=== PATIENT | female | born 1950 | race Caucasian/White ===

== ENCOUNTER → 2023-02-05 09:57 | Outpatient (BNVA) | payer OTHER, SELFPAY | PROVIDERS: PCP Family Medicine; Referring Provider Family Medicine; Visit Provider Surgery | DX: L72.3 Sebaceous cyst (principal) | CPT/HCPCS: 99202 ==

== ENCOUNTER 2023-02-20 13:44 | Outpatient (REF) | payer OTHER, SELFPAY | END 2023-02-20 13:45 | disposition home or self-care (01) | LOC: HO.LNP 13:44 | PROVIDERS: PCP Family Medicine; Visit Provider Surgery | DX: L72.3 Sebaceous cyst (principal) | CPT/HCPCS: 11402; 88304; 88342; 99212 ==

== ENCOUNTER 2023-03-01 11:19 | Outpatient (AMB) | payer MEDICARE, SELFPAY ==
[2023-03-01 11:31] VITALS: BP 133/63; PULSE 84; BMI 30.2
--- NOTE | 2023-03-01 11:31 | MHC.OFFVIS ---
Intake Vital Signs 03/01/23 11:31 Height 5 ft 1 in Weight 160 lb BMI 30.2 BP 133/63 Blood Pressure Location Rt brachial Position Sitting Pulse 84 Intake Visit Reasons: Follow up exc libby cyst of left shoulder Intake Note: Patient here for F/u exc of cyst on Lt shoulder. Patient reports tenderness and incision looks inflamed. Denies redness or oozing. Vault Attendant Required: No Accompanied by: Self / Same As Patient Allergies No Known Allergies Allergy (Verified 03/01/23 11:32) HPI HPI Comments History of Present Illness Details Patient has no wound issues or complaints aside from mild incisional discomfort which is improving. Pathology was benign [facility] Medical History Left ankle injury Surgical History H/O right knee surgery History of section History of tubal ligation Social History Alcohol intake: never Patient Tobacco Use Status: Never used Tobacco Physical Exam Vital Signs: Last Vital Signs Pulse 84 03/01/23 11:31 BP 133/63 03/01/23 11:31 BMI result Body Mass Index 30.2 Chest Other: Wound is clean dry and intact healing uneventfully Assessment & Plan Assessment & Plan (1) Sebaceous cyst: Comment: Patient has been given local instructions including no strenuous activities, ice pack to the wound p.r.n., shower in 2 days and removing only outside dressing leaving Steri-Strips intact. She will see me as directed or p.r.n. Code(s): L72.3 - Sebaceous cyst Coding Level of Care Code Global (43558) Diagnoses Sebaceous cyst L72.3
== END 2023-03-01 11:41 | disposition home or self-care (01) ==
PROVIDERS: PCP Family Medicine; Visit Provider Surgery
DX: L72.3 Sebaceous cyst (principal)
CPT/HCPCS: 99024

== ENCOUNTER → 2023-03-01 11:19 | Outpatient (BNVA) | payer OTHER, SELFPAY | PROVIDERS: PCP Family Medicine; Visit Provider Surgery ==

== ENCOUNTER 2023-04-09 09:42 | Outpatient (AMB) | payer OTHER, MEDICARE, SELFPAY ==
[2023-04-09 09:51] VITALS: BP 120/74; PULSE 77; BMI 28.7
--- NOTE | 2023-04-09 09:51 | A.OFFVIS_ITS ---
Intake Vital Signs 04/09/23 09:51 Height 5 ft 1 in Weight 152 lb 1.903 oz BMI 28.7 BP 120/74 Blood Pressure Location Lt brachial Position Sitting Pulse 77 Intake Visit Reasons: NPV/PAF/Kirchen Intake Note: New patient afib c/o palpitations and chest heaviness and rib pain Allergies No Known Allergies Allergy (Verified 03/01/23 11:32) HPI HPI Comments History of Present Illness Details Thank you for referring Annemarie in cardiology consultation today for symptoms of shortness of breath and chest pressure along with symptoms of palpitation. She is absolutely pleasant 72-year-old woman with prior history of significant asthma which is got better since losing weight and as per her doing acupuncture and current medical therapy. She does not see a tailer in. She has been and symptoms of increasing exertional shortness of breath and symptoms associated with chest pressure when she walk short distance. She says she does not exercise for prolonged period time due to knee issues on the right. She denies any orthopnea, PND, leg edema. Symptoms usually last for few hours after she gets shortness of breath. However since doing acupuncture losing weight she says she has not been hospitalized and use to be hospitalized about 3 times a year for her asthma exacerbation. She has episodes of atrial fibrillation 1st detected in 2005 after knee surgery when she had significant pain in her left leg related to sciatica. She had a right knee replacement. And subsequently in 2009 when she was admitted with asthma exacerbation does mention of developing atrial fibrillation. However besides those 2 episodes as been no documented atrial fibrillation since then. She is not on current oral anticoagulation therapy. Eight seems like this was because both of these episodes were triggered. However since then she continues to intermittent episodes of palpitations. Do not last for long period time. She denies any lightheadedness, syncope. She said she had a cardiac catheterization many years ago and from the notes appear to be at [facility] in [facility], and was told that she had coronary artery disease. She also has longstanding history of hyperlipidemia currently on low intensity statin therapy. She says her LDL is not well optimized. She is currently not on any aspirin therapy. [facility] Medical History CAD (coronary artery disease) Diabetes Left ankle injury Paroxysmal atrial fibrillation Severe asthma Surgical History H/O right knee surgery History of section History of tubal ligation Social History Alcohol intake: never Patient Tobacco Use Status: Never used Tobacco Review of Systems Const Denies chills, Denies fatigue, Denies fever(s), Denies frequent falls, Denies weakness, Denies weight gain and Denies weight loss ENT Denies dizziness Card Denies chest pain, Denies leg edema, Denies lightheadedness, Denies palpitations, Denies dyspnea, Denies dyspnea on exertion, Denies orthopnea and Denies other (loss of consciousness) Resp Denies cough, Denies dyspnea and Denies dyspnea on exertion GI Denies hematochezia and Denies change in stool character Musc Denies abnormal gait, Denies muscle weakness, Denies numbness, Denies radiating pain into limb and Denies tingling Neuro Denies abnormal gait, Denies dizziness, Denies frequent falls, Denies numbness, Denies tingling and Denies weakness Endo Denies fatigue and Denies palpitations Physical Exam Vital Signs: Last Vital Signs Pulse 77 04/09/23 09:51 BP 120/74 04/09/23 09:51 BMI result Body Mass Index 28.7 Const General: cooperative, comfortable, no acute distress, well developed, alert and awake Nutritional Appearance: overweight Orientation/consciousness: patient oriented x3 Limitations: no limitations HEENT Head: Yes normocephalic and Yes atraumatic Neck Neck: Yes trachea midline, Yes supple and Yes no JVD Resp Effort & Inspection: normal respiratory effort Auscultation: wheezes scattered wheezes Cardio Jugular venous distension: no JVD Palpation: normal PMI Rate: regular rate Rhythm: regular rhythm Heart sounds: S1 normal heart sound present, S2 normal heart sound present, no click, no gallops, no murmurs and no rubs GI Auscultation: normal bowel sounds Skin General skin exam: no rashes or lesions noted Neuro General: patient oriented x3 and no focal motor deficits Extrem General: Yes no clubbing, cyanosis or edema Office Procedures EKG Details: EKG shows normal sinus rhythm with QS pattern in lead V1 and V2 otherwise no acute ST T wave change [id number], Complete Assessment & Plan Assessment & Plan (1) SOB (shortness of breath) on exertion: Code(s): R06.02 - Shortness of breath Plan: Patient with progressive symptoms exertional shortness of breath as well as intermittent chest pressure with prior history of coronary artery disease, extent unknown with risk factors of diabetes, age as well as hyperlipidemia not well controlled. There is high likelihood of underlying progressive coronary artery disease obstructive CAD. Would suggest her to undergo myocardial perfusion imaging with dobutamine given her severe bronchospastic airway disease. This will be done in near future. Further treatment based on the findings. Will also suggest echocardiogram to assess LV systolic and diastolic function to evaluate for regional wall motion abnormality in pulmonary hypertension. Management was discussed with her in details. Continue aggressive risk factor modification. Hopefully we can obtain old cardiac catheterization report. Will obtain lipid panel from the office and if LDL is not well optimized and below 70 mg/dL consider switching her from pravastatin to high-intensity statin therapy with atorvastatin 40 mg daily therapy. Management was discussed with her. (2) Palpitations: Code(s): R00.2 - Palpitations Plan: Patient continues to intermittent symptoms of palpitations. She is at high risk for recurrent development of atrial fibrillation. Advise echocardiogram as above to evaluate for biatrial chamber size. Also suggest a 30 day event monitor to evaluate for symptoms and see if she has any evidence of atrial fibrillation. Consider pulmonary specific bronchodilators such as Xopenex. Consider referral to Pulmonary. Avoidance of other stimulants was discussed. Further treatment based on finding of the event monitor. If she does have recurrent atrial fibrillation would be high risk for thromboembolic complication with consider oral anticoagulation therapy. She was hesitant about it but understands. Continue Cardizem therapy for now. Will follow up in the clinic after above-mentioned test. Thank you for allowing me to partake in the care Coding Level of Care Code New Pt Level 4 (55722) Diagnoses SOB (shortness of breath) on exertion R06.02 Palpitations R00.2 CPT Codes EKG - CPT: 29779-[id number], Complete ([id number])
== END 2023-04-09 10:32 | disposition home or self-care (01) ==
PROVIDERS: PCP Family Medicine; Referring Provider Family Medicine; Visit Provider Internal Medicine Cardiovascular Disease
DX: R06.02 Shortness of breath (principal); R00.2 Palpitations
CPT/HCPCS: 93010; 99204

== ENCOUNTER → 2023-04-09 09:42 | Outpatient (BNVA) | payer OTHER, MEDICARE, SELFPAY | PROVIDERS: PCP Family Medicine; Referring Provider Family Medicine; Visit Provider Internal Medicine Cardiovascular Disease | DX: R00.2 Palpitations (principal); R06.02 Shortness of breath | CPT/HCPCS: 93005; 99202 ==

== ENCOUNTER 2023-04-30 09:41 | Outpatient (REF) | payer OTHER, SELFPAY ==
--- NOTE | ~2023-04-30 | XR_ITS ---
EXAMINATION: XR CHEST CLINICAL INFORMATION: Asthma COMPARISON: 05/11/2019 TECHNIQUE: 2 views of the chest were obtained. FINDINGS: No significant abnormality is noted involving the heart, lungs, mediastinum, bony thorax or soft tissues. XR/XR chest 2V IMPRESSION: No acute process or interval change.
== END 2023-04-30 09:42 | disposition home or self-care (01) ==
LOC: HO.XRAY 09:41
PROVIDERS: PCP Family Medicine; Visit Provider Internal Medicine
DX: J45.909 Unspecified asthma, uncomplicated (principal); R06.02 Shortness of breath; R40.0 Somnolence; G47.33 Obstructive sleep apnea (adult) (pediatric); Z79.899 Other long term (current) drug therapy; Z87.891 Personal history of nicotine dependence
CPT/HCPCS: 71046

== ENCOUNTER 2023-04-30 09:41 | Outpatient (AMB) | payer OTHER, MEDICARE, SELFPAY ==
[2023-04-30 09:58] VITALS: BP 142/64; PULSE 90; O2SAT 96; BMI 29.8
--- NOTE | 2023-04-30 09:58 | A.OFFVIS_ITS ---
Intake Vital Signs 04/30/23 09:58 Height 5 ft 1 in Weight 157 lb 10.088 oz BMI 29.8 BP 142/64 H Blood Pressure Location Rt brachial Position Sitting Pulse 90 Pulse Source Pulse Oximeter Pulse Oximetry (%) 96 Oxygen Delivery Method Room Air Intake Visit Reasons: Shortness of breath Intake Note: pt is here as a new patient hx of a-fib, and hx of asthma, sleep apnea. She does not have c-pap anymore. She is short of BREATH with stairs and exertion. Anvil Worker Required: No Allergies No Known Allergies Allergy (Verified 04/30/23 11:58) Medication List - Last Reconciled 04/30/23 by Sharyn Titus MD budesonide-formoterol 160-4.5 mcg/actuation (Symbicort) 2 puffs inhalation BID cetirizine (All Day Allergy (cetirizine)) 10 mg PO DAILY cholecalciferol (vitamin D3) 25 mcg PO DAILY cyanocobalamin (vitamin B-12) 1,000 mcg PO DAILY diltiazem HCl ER 180 mg PO DAILY ibuprofen (IBU) 800 mg PO Q6H PRN ipratropium-albuterol 18-103 mcg/actuation sprays inhalation lorazepam 0.5 mg PO DAILY PRN metformin 500 mg PO BID omeprazole 20 mg PO DAILY pravastatin 80 mg PO BEDTIME sertraline 100 mg PO DAILY trazodone 100 mg PO BEDTIME PRN Do you need a note to return to daycare/school/sports/work: No HPI Shortness of breath HPI Details This 72 years old female is being seen for the 1st time for pulmonary evaluation. 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 She has history of bronchial asthma starting in the younger age. Acute attacks were triggered mainly by smoking, chemical sprays , fires and gone smoke, while she was in service, She was stationed mostly in [place], she had acute attacks of bronchial asthma at least 2 times requiring intubation. After she retired from the service she has had minor acute attacks off and on and usually ends up visiting the emergency room about 2 or 3 times a year. In year 2005 she moved to this area, and asthma symptoms actually got some worse, She has been treated in [facility] a few times. At present she is using Symbicort 160-4.52 puffs b.i.d.. And Combivent Respimat 1 inhalation 3 to 4 times a day. She also has a nebulizer at home. She does have albuterol inhaler ( ProAir ) which she uses off and on when outdoors. Claims that she gets short of breath easily when she walks fast or climbs stairs. Lately has not had any acute. Exacerbation her need to be hospitalized She smoked 4-6 cigarettes a day for about 22 years but was able to quit many years ago. Patient does have history of anxiety and mild depression. Being treated with sertraline 100 mg daily and lorazepam p.r.n.. Patient has had history of paroxysmal atrial fibrillation, the 1st time 8 was noted when she recovered from anesthesia after the knee surgery. She has had minor attacks of fast heartbeat. . No sustained tachycardia Recently has seen Dr. Gleason for cardiology evaluation, and would be undergoing nuclear stress test. Also will be undergoing echocardiogram but no fixed date at this time. Interestingly she also has past history of obstructive sleep apnea. She used to be heavier, and sleep study many years ago was positive for sleep apnea. She was started on CPAP therapy, she felt claustrophobic and anxious with the mask on her face, and stopped using the CPAP. She has difficulty in sleeping at night, but this is probably more related to her anxiety. She claims that she remains tired during the daytime, and does have a tendency to fall asleep if she is sitting and resting in the house, or if she is reading or watching TV. She is interested in having is sleep study again. [facility] Medical History (Updated 04/30/23 @ 12:20 by Sharyn Titus MD) Somnolence, daytime MARITZA (obstructive sleep apnea) CAD (coronary artery disease) Severe asthma Diabetes Paroxysmal atrial fibrillation Left ankle injury Surgical History History of section History of tubal ligation H/O right knee surgery Social History Alcohol intake: never Patient Tobacco Use Status: Former Tobacco user Review of Systems Const All systems reviewed & are unremarkable except as noted in HPI and below Eyes Reports no additional complaints ENT Reports no additional complaints, Denies dizziness and Reports nasal congestion (Mild off and) Card Denies syncope, Denies irregular heart rhythm and Denies leg edema Resp Reports as per HPI GI Reports heartburn (History of GERD symptoms being treated) Reports no additional complaints Musc Reports no additional complaints Skin/Breast Reports system reviewed and no additional complaints, except as documented Neuro Denies dizziness and Denies syncope Psych Reports anxiety and Reports depression Endo Reports no additional complaints Hernan/Lymph Reports no additional complaints Aller/Immun Reports no additional complaints Physical Exam Vital Signs: Last Vital Signs Pulse 90 04/30/23 09:58 BP 142/64 H 04/30/23 09:58 Pulse Ox 96 04/30/23 09:58 Oxygen Delivery Method Room Air 04/30/23 09:58 BMI result Body Mass Index 29.8 Const General: healthy appearing, comfortable, no acute distress, alert and awake Orientation/consciousness: patient oriented x3 HEENT Head: Yes normal to inspection General nose exam: No nasal polyps present and No nasal discharge present Face and sinus: Yes sinuses nontender Mouth: oropharynx normal (Mallampati class 2) Throat: Yes posterior oropharynx normal Eyes General: appearance normal, both eyes and all related structures Neck Other: Neck circumference 14-1/2 inch Neck: Yes normal visual inspection, Yes no lymphadenopathy, Yes trachea midline and Yes no JVD Thyroid: Thyroid normal Chest Chest palpation & inspection: normal inspection of the chest, normal palpation of entire chest wall and no tenderness Resp Other: Percussion note is resonant. Breath sounds are only slightly distant. No wheezes rhonchi or crepitations are heard. Cardio Palpation: normal PMI Rate: regular rate Rhythm: regular rhythm Heart sounds: no gallops and no murmurs GI Palpation (GI): Soft to palpation, nontender, No hepatosplenomegaly present and no masses Auscultation: normal bowel sounds Back/Spine/Pelvis Thoracic/Lumbar Spine: thoracic and lumbar spine normal to inspection Skin General skin exam: no rashes or lesions noted Neuro General: patient oriented x3 and no focal motor deficits Cranial nerves: Yes CN's II-XII intact bilaterally Extrem General: Yes normal to inspection, Yes no clubbing, cyanosis or edema and Yes no calf tenderness Psych Speech and movement: Normal speech and movement present Assessment & Plan Assessment & Plan (1) Severe asthma: Comment: Longstanding history of bronchial asthma, most probably allergic in nature, history of status asthmaticus a few times but many years ago. Currently seems to be well controlled. PLAN : COMPLETE PULMONARY FUNCTION TEST IS BEING SCHEDULED. TX : SYMBICORT 160-4.52 PUFFS B.I.D. CONTINUE TO USE REGULARLY. USE COMBIVENT RESPIMAT 1 INHALATION Q 4-6 HOURS P.R.N.. DO NOT DUPLICATE WITH PROAIR( ALBUTEROL ) FURTHER ADVICE WILL BE GIVEN AFTER THE PULMONARY FUNCTION TEST. Code(s): J45.909 - Unspecified asthma, uncomplicated (2) SOB (shortness of breath) on exertion: Comment: SHORTNESS OF BREATH ON EXERTION MAY BE DUE TO COPD ALONG WITH BRONCHIAL ASTHMA. CHEST X-RAY. IS ORDERED AGAIN FURTHER ADVISED WILL BE GIVEN AFTER THE PULMONARY FUNCTION TEST. I EXPLAINED TO HER ABOUT DOING DEEP BREATHING EXERCISES IF SHE FEELS ANXIOUS AND SHORT OF BREATH. Code(s): R06.02 - Shortness of breath (3) MARITZA (obstructive sleep apnea): Comment: SHE HAS PAST HISTORY OF OBSTRUCTIVE SLEEP APNEA, COULD NOT USE THE CPAP DUE TO ANXIETY AND PANIC-LIKE SYMPTOMS WITH THE MASK ON THE FACE. HAS LOST SOME WEIGHT. STILL HAS PUT VERY POOR SLEEP AND EXCESSIVE DAYTIME SLEEPINESS, WILL DO A HOME-BASED SLEEP STUDY. Code(s): G47.33 - Obstructive sleep apnea (adult) (pediatric) (4) Somnolence, daytime: Comment: EXCESSIVE FATIGUE AND SOMNOLENCE DURING THE DAYTIME MAY BE A RESULT OF POOR SLEEP AT NIGHT AND ALSO DUE TO ANXIETY AND DEPRESSION. HOWEVER WE NEED TO RULE OUT OBSTRUCTIVE SLEEP APNEA. HOME SLEEP TEST IS ORDERED. ESS 07/12 Code(s): R40.0 - Somnolence Orders: Orders PFT pulmonary function test Today J45.909 - Unspecified asthma, uncomplicated, R06.02 - Shortness of breath XR chest 2V Today J45.909 - Unspecified asthma, uncomplicated, R06.02 - Shortness of breath RT home sleep study Today G47.33 - Obstructive sleep apnea (adult) (pediatric), R06.02 - Shortness of breath, R40.0 - Somnolence Coding Level of Care Code New Pt Level 4 (01197) Diagnoses Severe asthma J45.909 SOB (shortness of breath) on exertion R06.02 MARITZA (obstructive sleep apnea) G47.33 Somnolence, daytime R40.0
== END 2023-04-30 10:53 | disposition home or self-care (01) ==
PROVIDERS: PCP Family Medicine; Visit Provider Internal Medicine
DX: J45.909 Unspecified asthma, uncomplicated (principal); R06.02 Shortness of breath; G47.33 Obstructive sleep apnea (adult) (pediatric); R40.0 Somnolence
CPT/HCPCS: 99204

== ENCOUNTER → 2023-06-03 09:08 | Outpatient (REF) | payer OTHER, MEDICARE, SELFPAY ==
--- NOTE | ~2023-06-03 | NM_ITS ---
Lexiscan Myocardial perfusion study Indication: Chest discomfort, shortness of breath, assess for ischemia Technique: The patient was brought in for a Lexiscan perfusion study on 06/03/2023 and was injected 0.4 mg of Lexiscan intravenously. Within a minute of this injection 25 mCi of sestamibi was given intravenously. Images were obtained using the SPECT gamma camera interlaced with the gating device. Images were obtained in supine position. Resting perfusion study was performed on 06/05/2023. Patient was administered 25 mCi of sestamibi intravenously at rest. Images were then obtained in supine position. Images were processed with the software and compared side to side in short axis, horizontal long axis and vertical long axis views. Total DLP 96mGy-cm. Findings: Raw acquisition reviewed. The stress perfusion study showed no significant perfusion abnormality. Both uncorrected as well as CT attenuation corrected images were reviewed. The gated study shows normal LV systolic function with calculated LVEF of 69%. LV cavity is normal in size. The gated study shows normal wall thickening and contraction of segments. Resting study shows no significant perfusion abnormality. Gating at rest reveals normal wall motion with ejection fraction at 61%. The findings are consistent with no clear reversible or fixed perfusion abnormality. NM/NM greg perf SPECT rest & str Impression: 1. Myocardial perfusion imaging study shows normal myocardial perfusion. 2. Gated LVEF is 68% during stress and 61% during rest. 3. Transient ischemic dilatation not present. EKG component of the test reported separately.
--- NOTE | 2023-06-03 09:17 | CA_ITS ---
Acquisition Time: 2023-06-03 10:19:36 Total Exercise Time: 00:02:00 Test Indications: Chest Pain Medications: SERTRALINE TRAZADONE PRAVASTATIN OMEPRAZOLE LORAZAPAM DILTIAZEM INHALER Protocol: LEXISCAN Max HR: 096 BPM 64% of Pred: 150 BPM Max BP: 118/064 mmHG Max Work Load: 1.0 METS Pharmacological stress test with Lexiscan injection while sitting and kicking her legs, without anginal symptoms, without arrhythmias, with normotensive response to injection, with nondiagnoistic EKGs. Aminophylline 75mg IVP given to reverse Lexiscan. Nuclear images pending. Test reviewed with Dr. Decker. Referred By: Zeb Chisholm Overread By: Wendi Bello
--- NOTE | 2023-06-03 09:17 | CA_ITS ---
Transthoracic Echocardiogram Patient (Last, First, Middle): Annemarie Harding, Gender: Female Date of : 1950 Age: 72 Procedure Date: 06/03/2023 Procedure Type: Transthoracic Echocardiogram Location: OP Height: 154.94 cm Weight: 74.84 kg BSA: 1.74 m2 Heart Rate: 69 bpm BP: 112 / 70 mmHg Referring MD: Zeb Chisholm MD Symptoms: R06.02 - Shortness of breath Study Quality: Adequate ECG Rhythm: Sinus Conclusions: - The left ventricular systolic function is normal. The calculated ejection fraction is 58% by biplane method. - No obvious valvular pathology seen on this study. Findings Left Ventricle Normal left ventricular cavity size. There is normal left ventricular wall thickness. The left ventricular systolic function is normal. The calculated ejection fraction is 58% by biplane method. There is no evidence of regional wall motion abnormalities. Diastolic function is normal for age. LV peak GLS -17.3%. Right Ventricle Normal right ventricular cavity size and systolic function. Atria Both atria are normal in size. Aortic Valve There is mild calcification of the aortic valve. There is no aortic valve stenosis. There is no aortic valve regurgitation. Mitral Valve The mitral valve appears normal. There is trace mitral valve regurgitation. There is no mitral valve stenosis. Pulmonic Valve The pulmonic valve is likely normal. Tricuspid Valve Normal tricuspid valve structure. There is trace tricuspid valve regurgitation. There is no evidence of pulmonary hypertension. Great Vessels The asc aorta is normal in size. Venous The inferior vena cava is normal in size and collapses greater than 50% with inspiration. Pericardium/Pleural There is no evidence of pericardial effusion. Prior Study Comparison No prior study available for comparison. Recommendations, Care & Conclusions No obvious valvular pathology seen on this study. Measurements 2D Linear Measurements IVSd: 0.98 0.6-0.9/0.6-1.0 cm LVIDd: 4.15 3.9-5.3/4.2-5.9 cm LVIDd Index: 2.39 2.4-3.2/2.2-3.1 cm/m2 LVIDs: 2.78 2.0-3.6 cm LVPWd: 1.02 0.7-1.1 cm LA Diam: 3.30 2.7-3.8/3.0-4.0 cm LAIDs Index: 1.90 1.5-2.3 cm/m2 LV Mass: 167.46 67-162/88-224 g LV Mass Index: 96.24 43-95/49-115 g/m2 LVOT Diam: 2.00 3.0+(-)1.3 cm 2D Systolic Function EF 4C: 57.40 >55% EF 2C: 56.80 >55% EF BiP: 57.50 >55% Mitral Valve MV Pk E: 0.96 MV PK A: 1.00 MV Decel Time: 223.00 E/A: 1.00 E'Lateral: 8.59 E'Medial: 6.64 E/E' Med: 14.50 E/E' Lat: 11.20 PHT: 65.00 MVA PHT: 3.38 Decel [place]: 4.30 Aortic Valve AoV Pk Ziggy: 1.66 AoV Mn Ziggy: 1.12 AoV VTI: 0.38 AoV Pk Grad: 11.00 Aov Mn Grad: 6.00 RESHMA Cont.VTI: 2.29 LVOT LVOT Pk Ziggy: 1.16 LVOT Mn Ziggy: 0.75 LVOT VTI: 0.28 LVOT Pk Grad: 5.00 LVOT Mn Grad: 3.00 LVOT Diam: 2.00 LVOT Area: 3.14 Diastolic Function MV Pk E: 0.96 MV Pk A: 1.00 E/A: 1.00 E'Medial: 6.64 E/E' Med: 14.50 E' Laterial: 8.59 E/E' Lat: 11.20 Right Ventricle TAPSE (mm): 22.60 TVS' Ziggy: 10.60 Tricuspid Valve TR Pk Ziggy: 2.32 TR Pk Grad: 22.00 RA Press: 3.00 RVSP: 25.00 Great Vessels Aorta Sinus of Valsalva: 2.94 2.0-3.[address] Ridge: 2.35 1.7-3.4 cm Ao Asc: 3.50 2.1-3.4 cm Updated in Other Vendor System with Status of Final Alexis Decker MD electronically signed on 06/04/2023 4:09:18 PM with status of Final
== END ==
LOC: HO.CARD 09:08
PROVIDERS: PCP Family Medicine; Visit Provider Internal Medicine Cardiovascular Disease
DX: R06.02 Shortness of breath (principal); R00.2 Palpitations
CPT/HCPCS: 78452; 93017; 93306; 93356; A9500; J0280; J2785

== ENCOUNTER → 2023-06-03 09:17 | Outpatient (BNV) | payer OTHER, MEDICARE, SELFPAY | PROVIDERS: PCP Family Medicine; Visit Provider Nurse Practitioner | DX: R07.9 Chest pain, unspecified (principal); R06.02 Shortness of breath | CPT/HCPCS: 78452; 93016; 93018; 93306 ==

== ENCOUNTER → 2023-06-05 09:42 | Outpatient (BNV) | payer MEDICARE, SELFPAY | PROVIDERS: PCP Family Medicine; Visit Provider Internal Medicine Cardiovascular Disease | DX: I48.91 Unspecified atrial fibrillation (principal) | CPT/HCPCS: 93244 ==

== ENCOUNTER → 2023-06-05 09:57 | Outpatient (REF) | payer OTHER, MEDICARE, SELFPAY ==
--- NOTE | 2023-06-05 09:42 | HM_ITS ---
Conclusion: 1. Patient was monitored for total period of 6 days and 22 hours 2. Baseline was normal sinus rhythm with average heart of 92 beats per minute 3. Frequent intermittent atrial fibrillation noted with total burden of 23.4% with longest episode lasting 4 hour and 8 minutes and the fastest heart rate during atrial fibrillation 188 beats per minute 4. Frequent PACs noted with total burden of 3.7% 5. No significant pauses noted 6. Patient did not report any events MTDD
== END ==
LOC: HO.CARD 09:57
PROVIDERS: PCP Family Medicine; Visit Provider Nurse Practitioner
DX: R00.2 Palpitations (principal)
CPT/HCPCS: 93242

== ENCOUNTER 2023-06-25 12:17 | Outpatient (REF) | payer OTHER, SELFPAY ==
[2023-06-25 13:05] LABS: MANUAL DIFF FLAG NO
[2023-06-25 13:44] LABS: Basophils Absolute Auto 0.1 X10*3/uL (0.0-0.2); Basophils Percent Auto 1.2 % (0-2); Eosinophils Absolute Auto 0.1 X10*3/uL (0.0-0.4); Eosinophils Percent Auto 2.4 % (0-4); Hematocrit 38.2 % (37.0-47.0); Imm Gran Abs Auto 0.01 X10*3/uL (0.00-0.03); Imm Gran Pct Auto 0.2 % (0.0-0.4); Lymphocytes Absolute Auto 1.2 X10*3/uL (1.2-4.9); Lymphocytes Percent Auto 28.8 % (20-40); Mean Corpuscular Hemoglobin 31.9 pg (27.0-33.0); Mean Corpuscular Volume 93.6 fL (80.0-98.0); Mean Platelet Volume 9.9 fL (9.4-12.3); Monocytes Absolute Auto 0.3 X10*3/uL (0.1-1.2); Neutrophils Absolute Auto 2.5 x10*3/uL (2.0-8.3); Neutrophils Percent Auto 59.4 % (45-73); Platelet Count 262 X10*3/uL (160-400); Red Blood Count 4.08 X10*6/uL (4.20-5.50); Red Cell Distribution Width 12.6 % (11.0-16.0); White Blood Count 4.1 X10*3/uL (4.8-10.8)
[2023-06-25 14:14] LABS: Anion Gap 14 (12-20); Blood Urea Nitrogen 11 mg/dL (9-16); Calcium 10.2 mg/dL (8.4-10.2); Carbon Dioxide 27 mmol/L (22-29); Chloride 103 mmol/L (96-108); Estimated Glomerular Filt Rate > 60; Glucose Random 166 mg/dL (60-115); Potassium 4.8 mmol/L (3.3-5.1); Sodium 139 mmol/L (135-145)
== END 2023-06-25 12:18 | disposition home or self-care (01) ==
LOC: HO.LAB 12:17
PROVIDERS: PCP Family Medicine; Visit Provider Nurse Practitioner
DX: I48.91 Unspecified atrial fibrillation (principal)
CPT/HCPCS: 36415; 80048; 85025

== ENCOUNTER 2023-07-01 10:04 | Outpatient (AMB) | payer OTHER, SELFPAY ==
--- NOTE | 2023-07-01 10:17 | MHC.OFFVIS ---
Intake Vital Signs 07/01/23 10:18 Height 5 ft 1 in Weight 152 lb 1.903 oz BMI 28.7 BP 124/80 Blood Pressure Location Lt brachial Position Sitting Pulse 74 Intake Visit Reasons: 2 mth f/up 30 day / echo/ dobutamine/ va labs Intake Note: 2 month follow-up after 30 day, echo , stress and labs feeling better but still having sob when walking and faitgue Law Enforcement Director Required: No Allergies No Known Allergies Allergy (Verified 04/30/23 11:58) Medication List - Last Reconciled 07/01/23 by Zeb Chisholm MD apixaban (Eliquis) 5 mg PO BID budesonide-formoterol 160-4.5 mcg/actuation (Symbicort) 2 puffs inhalation BID cetirizine (All Day Allergy (cetirizine)) 10 mg PO DAILY cholecalciferol (vitamin D3) 25 mcg PO DAILY cyanocobalamin (vitamin B-12) 1,000 mcg PO DAILY diltiazem HCl ER 240 mg PO QAM ipratropium-albuterol 18-103 mcg/actuation sprays inhalation lorazepam 0.5 mg PO DAILY PRN metformin 500 mg PO BID omeprazole 20 mg PO DAILY pravastatin 80 mg PO BEDTIME sertraline 100 mg PO DAILY trazodone 100 mg PO BEDTIME PRN HPI HPI Comments History of Present Illness Details Annemarie comes for follow-up. She underwent a 7 day Holter monitor which showed intermittent atrial fibrillation consistent with proximal atrial fibrillation with total burden of 23%. At that point time started on Cardizem and Eliquis therapy. She had a myocardial perfusion imaging as well as an echocardiogram which showed normal structure of the heart with no evidence of significant obstructive coronary artery disease and or LV systolic or RV dysfunction. She has sleep apnea still waiting for treatment for the same. However since starting Cardizem therapy she has done very well with much improved symptoms of palpitations. She feels less anxious because of that. She feels occasional skipped heartbeats but this correct quickly. Denies any bleeding issues or neurologic events. Continues to remain anxious overall. [facility] Medical History (Updated 07/01/23 @ 10:45 by Zeb Chisholm MD) Somnolence, daytime MARITZA (obstructive sleep apnea) CAD (coronary artery disease) Severe asthma Diabetes Paroxysmal atrial fibrillation Left ankle injury Surgical History History of section History of tubal ligation H/O right knee surgery Social History Alcohol intake: never Patient Tobacco Use Status: Former Tobacco user Review of Systems Const Denies chills, Denies fatigue, Denies fever(s), Denies frequent falls, Denies weakness, Denies weight gain and Denies weight loss ENT Denies dizziness Card Denies chest pain, Denies leg edema, Denies lightheadedness, Denies palpitations, Denies dyspnea, Denies dyspnea on exertion, Denies orthopnea and Denies other (loss of consciousness) Resp Denies cough, Denies dyspnea and Denies dyspnea on exertion GI Denies hematochezia and Denies change in stool character Musc Denies abnormal gait, Denies muscle weakness, Denies numbness, Denies radiating pain into limb and Denies tingling Neuro Denies abnormal gait, Denies dizziness, Denies frequent falls, Denies numbness, Denies tingling and Denies weakness Endo Denies fatigue and Denies palpitations Physical Exam Vital Signs: Last Vital Signs Pulse 74 07/01/23 10:18 BP 124/80 07/01/23 10:18 BMI result Body Mass Index 28.7 Const General: cooperative, comfortable, no acute distress, well developed, alert and awake Nutritional Appearance: overweight Orientation/consciousness: patient oriented x3 Limitations: no limitations HEENT Head: Yes normocephalic and Yes atraumatic Neck Neck: Yes trachea midline, Yes supple and Yes no JVD Resp Effort & Inspection: normal respiratory effort Auscultation: diminished lung sounds Cardio Jugular venous distension: no JVD Palpation: normal PMI Rate: regular rate Rhythm: regular rhythm Heart sounds: S1 normal heart sound present, S2 normal heart sound present, no click, no gallops, no murmurs and no rubs GI Auscultation: normal bowel sounds Skin General skin exam: no rashes or lesions noted Neuro General: patient oriented x3 and no focal motor deficits Extrem General: Yes no clubbing, cyanosis or edema Assessment & Plan Assessment & Plan (1) Paroxysmal atrial fibrillation: Comment: Documented, triggered by acute medical illness at 1 time post knee replacement in setting of significant pain and it 2nd time with acute asthma exacerbation 2009. No documented episodes since Code(s): I48.0 - Paroxysmal atrial fibrillation Plan: Paroxysmal atrial fibrillation highly symptomatic has done very well with rhythm control approach and has only required Cardizem therapy at this point time. Continue Cardizem therapy. She still has occasional palpitations which are suggestive isolated PACs. Advised to obtain a EKG sensor that pairs with her smart phone to further assess burden of atrial fibrillation she is interested. Continue risk factor modification. Strongly advised treatment for sleep apnea with CPAP machine if she has significant sleep apnea that would help prevent future episodes of atrial fibrillation. Management of atrial fibrillation was discussed in details. Avoidance of stimulants was discussed. Stress mitigation strategy and treatment of anxiety was discussed. To treat her asthma would use pulmonary specific bronchodilators such as Xopenex. CHADSVASc score of 3. Strongly recommend oral anticoagulation with Eliquis to reduce stroke risk. Semi annual renal function test should be pursued. (2) SOB (shortness of breath) on exertion: Comment: SHORTNESS OF BREATH ON EXERTION MAY BE DUE TO COPD ALONG WITH BRONCHIAL ASTHMA. CHEST X-RAY. IS ORDERED AGAIN FURTHER ADVISED WILL BE GIVEN AFTER THE PULMONARY FUNCTION TEST. I EXPLAINED TO HER ABOUT DOING DEEP BREATHING EXERCISES IF SHE FEELS ANXIOUS AND SHORT OF BREATH. Code(s): R06.02 - Shortness of breath Plan: Exertional shortness of breath most likely related to a pulmonary parenchymal disease as well as bronchospastic airway disease. Does not appear to be cardiac in origin with negative myocardial perfusion imaging as well as normal echocardiogram. Continue treatment for pulmonary disease. Continue participate in physical activity as tolerated. Will follow up in the clinic in 6 months time, sooner p.r.n.. Thank you for allowing me to partake in the care Coding Level of Care Code Est Pt Level 4 (98219) Diagnoses Paroxysmal atrial fibrillation I48.0 SOB (shortness of breath) on exertion R06.02
[2023-07-01 10:18] VITALS: BP 124/80; PULSE 74; BMI 28.7
== END 2023-07-01 10:44 | disposition home or self-care (01) ==
PROVIDERS: PCP Family Medicine; Visit Provider Internal Medicine Cardiovascular Disease
DX: I48.0 Paroxysmal atrial fibrillation (principal); R06.02 Shortness of breath
CPT/HCPCS: 99214

== ENCOUNTER → 2023-07-01 10:04 | Outpatient (BNVA) | payer OTHER, SELFPAY | PROVIDERS: PCP Family Medicine; Visit Provider Internal Medicine Cardiovascular Disease | DX: I48.0 Paroxysmal atrial fibrillation (principal); R06.02 Shortness of breath | CPT/HCPCS: 99212 ==

== ENCOUNTER → 2023-07-15 09:09 | Outpatient (REF) | payer OTHER, SELFPAY ==
--- NOTE | 2023-07-15 09:12 | HM_ITS ---
Conclusion: 1. Patient was monitored for total period of 3 days 2. Baseline was normal sinus rhythm with average heart of 84 beats per minute 3. Paroxysmal episodes of atrial fibrillation noted with total burden of 3.7% with longest episode lasting 1 hour and 55 minutes of fastest heart rate of 142 beats per minute 4. No significant pauses noted 5. Frequent PACs noted with total burden of 3.5% 6. Patient reported 1 event without marking the diary correlating with PAC MTDD
== END ==
LOC: HO.CARD 09:09
PROVIDERS: PCP Family Medicine; Visit Provider Internal Medicine Cardiovascular Disease
DX: I48.0 Paroxysmal atrial fibrillation (principal); R00.2 Palpitations
CPT/HCPCS: 93242

== ENCOUNTER → 2023-07-15 09:12 | Outpatient (BNV) | payer OTHER, SELFPAY | PROVIDERS: PCP Family Medicine; Visit Provider Internal Medicine Cardiovascular Disease | DX: I48.0 Paroxysmal atrial fibrillation (principal) | CPT/HCPCS: 93244 ==

== ENCOUNTER 2023-07-22 09:10 | Outpatient (AMB) | payer OTHER, SELFPAY ==
--- NOTE | 2023-07-22 09:23 | MHC.OFFVIS ---
Intake Vital Signs 07/22/23 09:25 Height 5 ft 1 in Weight 153 lb BMI 28.9 BP 120/70 Blood Pressure Location Lt brachial Position Sitting Pulse 89 Pulse Source Pulse Oximeter Pulse Oximetry (%) 95 Oxygen Delivery Method Room Air Intake Visit Reasons: Shortness of breath Intake Note: pt is here for follow up and will need to reschedule sleep study. Wood Panel Inspector Required: No Allergies No Known Allergies Allergy (Verified 07/22/23 09:36) Medication List - Last Reconciled 07/22/23 by Sharyn Titus MD apixaban (Eliquis) 5 mg PO BID budesonide-formoterol 160-4.5 mcg/actuation (Symbicort) 2 puffs inhalation BID cetirizine (All Day Allergy (cetirizine)) 10 mg PO DAILY cholecalciferol (vitamin D3) 25 mcg PO DAILY cyanocobalamin (vitamin B-12) 1,000 mcg PO DAILY diltiazem HCl ER 240 mg PO QAM ipratropium-albuterol 18-103 mcg/actuation sprays inhalation lorazepam 0.5 mg PO DAILY PRN metformin 500 mg PO BID pravastatin 80 mg PO BEDTIME sertraline 100 mg PO DAILY trazodone 100 mg PO BEDTIME PRN Do you need a note to return to daycare/school/sports/work: No HPI Shortness of breath HPI Details THIS 73 YEARS OLD VERY PLEASANT FEMALE IS HERE FOR FOLLOW-UP AFTER 4 MONTHS. SHE WAS SUPPOSED TO HAVE A PULMONARY FUNCTION TEST WELL HOME-BASED SLEEP STUDY BUT SOMETHING WENT WRONG , AND SHE NEVER HAD THESE TESTS. ANYWAY SHE CONTINUES TO HAVE BOUTS OF COUGH DURING THE DAYTIME AND GETS SHORT OF BREATH ON CLIMBING STAIRS, OR WALKING FAST. SHE DOES TAKE SYMBICORT 2 PUFFS B.I.D. AND THIS HAS REDUCE THE AMOUNT OF COUGH. SHE ALSO USES COMBIVENT RESPIMAT ONCE OR TWICE A DAY P.R.N. FOR PERSISTENT COUGH. SHE HAS HAD NO ACUTE SPELLS ARE ACUTE RESPIRATORY INFECTION. SHE HAS LOT OF ANXIETY AND DIFFICULTY IN SLEEPING. CLAIMS THAT SHE WAKES 3-4 TIMES PER NIGHT WITH SOME SNORING, SHE HAS HARD TIME TO TAKE A NAP DURING THE DAYTIME BUT SHE DOES FEEL SLEEPY AND TIRED IN THE AFTERNOONS. 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 NOW SHE DOES WANT TO BE STUDIED FOR SLEEP APNEA AND WILL TRY THE DIFFERENT INTERFACE , IF PROVEN TO HAVE SLEEP APNEA. [facility] Medical History Somnolence, daytime MARITZA (obstructive sleep apnea) CAD (coronary artery disease) Severe asthma Diabetes Paroxysmal atrial fibrillation Left ankle injury Surgical History History of section History of tubal ligation H/O right knee surgery Social History Alcohol intake: never Patient Tobacco Use Status: Former Tobacco user Review of Systems Const All systems reviewed & are unremarkable except as noted in HPI and below Eyes Reports no additional complaints ENT Reports no additional complaints, Denies dizziness and Reports nasal congestion (Mild off and) Card Denies syncope, Denies irregular heart rhythm and Denies leg edema Resp Reports as per HPI GI Reports heartburn (History of GERD symptoms being treated) Reports no additional complaints Musc Reports no additional complaints Skin/Breast Reports system reviewed and no additional complaints, except as documented Neuro Denies dizziness and Denies syncope Psych Reports anxiety and Reports depression Endo Reports no additional complaints Hernan/Lymph Reports no additional complaints Aller/Immun Reports no additional complaints Physical Exam Vital Signs: Last Vital Signs Pulse 89 07/22/23 09:25 BP 120/70 07/22/23 09:25 Pulse Ox 95 07/22/23 09:25 Oxygen Delivery Method Room Air 07/22/23 09:25 BMI result Body Mass Index 28.9 Const General: healthy appearing, comfortable, no acute distress, alert and awake Orientation/consciousness: patient oriented x3 HEENT Head: Yes normal to inspection General nose exam: No nasal polyps present and No nasal discharge present Face and sinus: Yes sinuses nontender Mouth: oropharynx normal (Mallampati class 2) Throat: Yes posterior oropharynx normal Eyes General: appearance normal, both eyes and all related structures Neck Other: Neck circumference 14-1/2 inch Neck: Yes normal visual inspection, Yes no lymphadenopathy, Yes trachea midline and Yes no JVD Thyroid: Thyroid normal Chest Chest palpation & inspection: normal inspection of the chest, normal palpation of entire chest wall and no tenderness Resp Other: Percussion note is resonant. Breath sounds are only slightly distant. No wheezes rhonchi or crepitations are heard. Cardio Palpation: normal PMI Rate: regular rate Rhythm: regular rhythm Heart sounds: no gallops and no murmurs GI Palpation (GI): Soft to palpation, nontender, No hepatosplenomegaly present and no masses Auscultation: normal bowel sounds Back/Spine/Pelvis Thoracic/Lumbar Spine: thoracic and lumbar spine normal to inspection Skin General skin exam: no rashes or lesions noted Neuro General: patient oriented x3 and no focal motor deficits Cranial nerves: Yes CN's II-XII intact bilaterally Extrem General: Yes normal to inspection, Yes no clubbing, cyanosis or edema and Yes no calf tenderness Psych Speech and movement: Normal speech and movement present Office Procedures Spirometry Testing Spirometry Comments: Spirometry done in the office, Dr. Titus has the results results scanned to her chart. 10331- Spirometry Results Reviewed Results Reviewed: SPIROMETRY MILD TO MODERATE OBSTRUCTIVE AIRWAYS DISORDER Assessment & Plan Assessment & Plan (1) SOB (shortness of breath) on exertion: Comment: SHORTNESS OF BREATH ON EXERTION MAY BE DUE TO COPD ALONG WITH BRONCHIAL ASTHMA. SPIROMETRY TODAY : CONSISTENT WITH MILD TO MODERATE DEGREE OF OBSTRUCTIVE AIRWAY DISORDER. I EXPLAINED TO HER ABOUT DOING DEEP BREATHING EXERCISES IF SHE FEELS ANXIOUS AND SHORT OF BREATH. Code(s): R06.02 - Shortness of breath Plan: ABOVE (2) MARITZA (obstructive sleep apnea): Comment: SHE HAS PAST HISTORY OF OBSTRUCTIVE SLEEP APNEA, COULD NOT USE THE CPAP DUE TO ANXIETY AND PANIC-LIKE SYMPTOMS WITH THE MASK ON THE FACE. HAS LOST SOME WEIGHT. STILL HAS VERY POOR SLEEP , SNORING ,AND EXCESSIVE DAYTIME SLEEPINESS, WILL DO A HOME-BASED SLEEP STUDY. Code(s): G47.33 - Obstructive sleep apnea (adult) (pediatric) Plan: HST ORDERED (3) Somnolence, daytime: Comment: EXCESSIVE FATIGUE AND SOMNOLENCE DURING THE DAYTIME MAY BE A RESULT OF POOR SLEEP AT NIGHT AND ALSO DUE TO ANXIETY AND DEPRESSION. HOWEVER WE NEED TO RULE OUT OBSTRUCTIVE SLEEP APNEA. ESS 07/12 Code(s): R40.0 - Somnolence Plan: HST . ORDERED (4) Severe asthma: Comment: Longstanding history of bronchial asthma, most probably allergic in nature, history of status asthmaticus a few times but many years ago. Currently seems to be well controlled. PLAN : COMPLETE PULMONARY FUNCTION TEST IS BEING SCHEDULED. TX : SYMBICORT 160-4.52 PUFFS B.I.D. CONTINUE TO USE REGULARLY. USE COMBIVENT RESPIMAT 1 INHALATION Q 4-6 HOURS P.R.N.. Code(s): J45.909 - Unspecified asthma, uncomplicated Plan: SPIROMETRY MEDS PRESCRIBED Orders: Orders RT home sleep study Today G47.33 - Obstructive sleep apnea (adult) (pediatric), R40.0 - Somnolence AMB Spirometry Testing Today J45.909 - Unspecified asthma, uncomplicated Coding Level of Care Code Est Pt Level 3 (64656) Diagnoses SOB (shortness of breath) on exertion R06.02 MARITZA (obstructive sleep apnea) G47.33 Somnolence, daytime R40.0 Severe asthma J45.909 CPT Codes Spirometry - CPT: 83001- Spirometry ([id number])
[2023-07-22 09:25] VITALS: BP 120/70; PULSE 89; O2SAT 95; BMI 28.9
== END 2023-07-22 10:04 | disposition home or self-care (01) ==
PROVIDERS: PCP Family Medicine; Referring Provider Family Medicine; Visit Provider Internal Medicine
DX: R06.02 Shortness of breath (principal); G47.33 Obstructive sleep apnea (adult) (pediatric); R40.0 Somnolence; J45.909 Unspecified asthma, uncomplicated
CPT/HCPCS: 94010; 99213

== ENCOUNTER → 2023-07-22 09:10 | Outpatient (BNVA) | payer OTHER, SELFPAY | PROVIDERS: PCP Family Medicine; Visit Provider Internal Medicine | DX: J45.909 Unspecified asthma, uncomplicated (principal); G47.33 Obstructive sleep apnea (adult) (pediatric); R40.0 Somnolence; R06.02 Shortness of breath | CPT/HCPCS: 94010; 99212 ==

== ENCOUNTER 2023-09-06 10:03 | Emergency (ER) | payer OTHER, SELFPAY ==
--- NOTE | ~2023-09-06 | CT_ITS ---
EXAMINATION: CT ABDOMEN AND PELVIS WITH CONTRAST CLINICAL INFORMATION: Abdominal pain COMPARISON: None available. TECHNIQUE: Multidetector volumetric images were obtained from the superior aspect of the liver through the pubic symphysis following administration 85 mL of Omnipaque 350 intravenous contrast. Sagittal and coronal reformatted images were obtained on the technologist's workstation. Oral contrast: No This CT examination was performed using dose optimization techniques as appropriate, variously including the following: *Automated exposure control *Adjustment of mA and/or kV according to patient size (this includes techniques or standardized protocols for targeted exams where dose is matched to indication/reason for exam; i.e. extremities or head) *Use of iterative reconstruction technique DLP: 454 mGy-cm FINDINGS: LUNG BASES: The visualized lung bases are unremarkable. LIVER, GALLBLADDER, AND BILIARY TREE: The liver is normal in size, shape, and attenuation. No focal hepatic lesion or biliary ductal dilatation is present. There is a linear 1.2 cm calcification posterior segment right hepatic lobe. The gallbladder is unremarkable with no evidence of radiopaque gallstones, gallbladder wall thickening, or obvious pericholecystic inflammatory changes. PANCREAS: Unremarkable. SPLEEN: Unremarkable. ADRENAL GLANDS: Unremarkable. KIDNEYS AND URETERS: The kidneys are normal in size, shape, and attenuation. No hydronephrosis, hydroureter, or calculi seen. No perinephric stranding. There is a 4 mm hypodensity midpole right kidney likely cyst simple cyst. BLADDER: Unremarkable. GASTROINTESTINAL TRACT: There is scattered stool and gas seen throughout the colon without distention. The small bowel loops are normal caliber. Appendix is not visualized. ABDOMINAL WALL: Tiny umbilical hernia containing fat.. LYMPH NODES: Normal. VASCULAR: There is mild to sclerotic calcification of abdominal aorta. No aneurysmal dilatation. PELVIC VISCERA: The uterus is anteverted and appears unremarkable. There is no adnexal mass or free fluid. There is 5.3 x 3.2 cm lipoma of left gluteus medius muscle. OSSEOUS STRUCTURES: Degenerative disc changes with vacuum disc phenomena L5-S1 disc level is noted. CT/CT abdomen pelvis w IV con IMPRESSION: Moderate constipation without acute process. Appendix is not seen. Left gluteal lipoma Fleischner guidelines were followed.
[2023-09-06 10:14] VITALS: BP 139/69; PULSE 72; RESP 16; TEMP 36.6; O2SAT 98
[2023-09-06 10:56] LABS: Appearance Urine Clear; Color Urine Yellow; Glucose Urine UA Negative (Negative); Leukocyte Esterase Urine Negative (Negative); Nitrite Urine Negative (Negative); Specific Gravity - Urine <= 1.005 (1.005-1.025); Urine Blood Negative (Negative); Urine Ketones Negative (Negative); Urine Protein Negative (Neg-Trace)
[2023-09-06 10:58] LABS: Bacteria Urine None Seen (None Seen); Hyaline Casts Urine 0-2 /LPF (0-2); RBC Urine 0-2 /HPF (0-2); Squamous Epithelial Cell Urine 0-2 /HPF (0-2); WBC Urine 0-5 /HPF (0-5)
[2023-09-06 11:06] LABS: COVID-19 Test Negative (Negative); IDNOW Serial# 152EDE1D
[2023-09-06 11:18] LABS: Alanine Aminotransferase 18 U/L (0-31); Alkaline Phosphatase 53 U/L (39-117); Anion Gap 13 (12-20); Aspartate Amino Transferase 15 U/L (5-31); Bilirubin Direct 0.1 mg/dL (0.0-0.5); Bilirubin Total 0.3 mg/dL (0.0-1.0); Blood Urea Nitrogen 7 mg/dL (9-16); Calcium 9.7 mg/dL (8.4-10.2); Carbon Dioxide 27 mmol/L (22-29); Chloride 106 mmol/L (96-108); Creatinine Clr Calc Pharmacy 68.9; Estimated Glomerular Filt Rate > 60; Glucose Random 158 mg/dL (60-115); Potassium 4.7 mmol/L (3.3-5.1); Sodium 141 mmol/L (135-145); Total Protein 6.8 g/dL (6.5-8.0)
[2023-09-06 12:47] LABS: MANUAL DIFF FLAG NO
[2023-09-06 12:50] LABS: Basophils Percent Auto 0.8 % (0-2); Eosinophils Absolute Auto 0.2 X10*3/uL (0.0-0.4); Eosinophils Percent Auto 5.7 % (0-4); Hematocrit 36.3 % (37.0-47.0); Hemoglobin 12.7 g/dl (12.0-16.0); Imm Gran Abs Auto 0.01 X10*3/uL (0.00-0.03); Imm Gran Pct Auto 0.3 % (0.0-0.4); Lymphocytes Percent Auto 26.7 % (20-40); Mean Corpuscular Hemoglobin 32.6 pg (27.0-33.0); Mean Corpuscular Volume 93.3 fL (80.0-98.0); Mean Platelet Volume 9.4 fL (9.4-12.3); Monocytes Absolute Auto 0.4 X10*3/uL (0.1-1.2); Monocytes Percent Auto 9.8 % (2-11); Neutrophils Absolute Auto 2.2 x10*3/uL (2.0-8.3); Neutrophils Percent Auto 56.7 % (45-73); Platelet Count 204 X10*3/uL (160-400); Red Blood Count 3.89 X10*6/uL (4.20-5.50); Red Cell Distribution Width 12.1 % (11.0-16.0); White Blood Count 3.9 X10*3/uL (4.8-10.8)
[2023-09-06 16:45] LABS: Glucose, Whole Blood 103 mg/dL (60-115)
[2023-09-06 17:39] VITALS: BP 139/62; PULSE 64; RESP 18; TEMP 36.6; O2SAT 98
--- NOTE | 2023-09-06 17:42 | ED_ITS ---
HPI - Abdominal Pain General Chief Complaint: Abdominal Pain Stated Complaint: Abd & back pain Time Seen by Provider: 09/06/23 17:30 History of Present Illness HPI narrative: Patient is a 73-year-old female with a history of abdominal pain. The pain is over the left lower quadrant. Not associated with any pain on urination. There has no fever no chills. No chest pain or shortness of breath no diaphoresis. Patient is from home. No cough no congestion. Positive history of many years ago. Multiple colonoscopy done in the past. Unsure if she had a history of diverticulitis. No history of kidney stones in the past. No bowel urinary incontinence. Patient from home. No chest pain. No rash. History of atrial fibrillation currently on Eliquis. Patient claims compliance with medication Related Data Home Medications Medication Instructions Recorded Confirmed cholecalciferol (vitamin D3) 25 25 mcg PO DAILY 04/09/23 07/01/23 mcg (1,000 unit) capsule cyanocobalamin (vitamin B-12) 1,000 mcg PO DAILY 04/09/23 07/01/23 1,000 mcg capsule ipratropium 18 mcg-albuterol 103 spray inhalation 04/09/23 07/01/23 mcg/actuation aerosol inhaler lorazepam 0.5 mg tablet 0.5 mg PO DAILY PRN 04/09/23 07/01/23 metformin 500 mg tablet 500 mg PO BID 04/09/23 07/01/23 pravastatin 80 mg tablet 80 mg PO BEDTIME 04/09/23 07/01/23 sertraline 100 mg tablet 100 mg PO DAILY 04/09/23 07/01/23 trazodone 100 mg tablet 100 mg PO BEDTIME PRN 04/09/23 07/01/23 budesonide-formoterol HFA 160 2 puff inhalation BID 04/30/23 07/01/23 mcg-4.5 mcg/actuation aerosol inhaler (Symbicort) cetirizine 10 mg capsule (All Day 10 mg PO DAILY 04/30/23 07/01/23 Allergy (cetirizine)) Previous Rx's Medication Instructions Recorded apixaban 5 mg tablet (Eliquis) 5 mg PO BID #60 tabs 06/25/23 diltiazem HCl 240 mg capsule,24 240 mg PO QAM #90 caps 06/25/23 hr,extended release Allergies Allergy/AdvReac Type Severity Reaction Status Date / Time hydromorphone [From Dilaudid] AdvReac Itching Verified 09/06/23 19:36 Review of Systems Review of Systems Positive abdominal pain Yes all other systems are reviewed and are negative [facility] Past Medical History Source: unable to obtain Onset Date is defined in the Problem List Problems that require an onset date and time if occurred within 24 hrs of arrival to the ED Aortic Dissection and Rupture; Neurologic impairment; Cardiopulmonary Arrest; Endotracheal Intubation; Insertion or Replacement of Mechanical Circulatory Assist Device Medical History Somnolence, daytime MARITZA (obstructive sleep apnea) CAD (coronary artery disease) Severe asthma Diabetes Paroxysmal atrial fibrillation Left ankle injury Surgical History History of section History of tubal ligation H/O right knee surgery Social History Social History Alcohol intake: never Patient Tobacco Use Status: Former Tobacco user Smoked in Last 30 Days: No Advance Directives: Yes Advance Directives Information Provided: No Advance Directives on File: No Physical Exam ED Vital Signs: Vital Signs - 24 hr 09/06/23 10:14 09/06/23 17:39 09/06/23 18:00 Temperature 97.8 F 97.8 F Pulse Rate 72 64 58 Respiratory Rate 16 18 18 Blood Pressure 139/69 139/62 131/62 Pulse Oximetry 98 98 99 Oxygen Delivery Method Room Air Room Air Room Air BMI result Body Mass Index 30.0 Appearance: Alert. Oriented X3. No acute distress. Eyes: Pupils equal, round and reactive to light. ENT: Pharynx normal. Neck: Normal inspection. Neck supple. No lymph nodes noted. No crepitus CVS: Normal heart rate and rhythm. Pulses normal. Normal S1 and S2 Respiratory: No respiratory distress. Breath sounds normal. No Wheezing. No rales Abdomen: Soft and nontender. No rigidity. No distention. good BS x4 Skin: Skin warm and dry. Normal skin color. Normal skin turgor. Extremities: No lower extremity edema. Neurovascular intact to all extremities. No Lacerations. No Rash Neuro: Oriented X 3. No motor deficit. No sensory deficit. Moving all extermities. No slurred speech Medical Decision Making Medical Decision Making [facility] Narrative: Positive left-sided abdominal pain. Patient already on blood thinners. Making risk of ischemic bowel very low. Urine showed no evidence of infection there is no blood making risk of kidney stones low. CT scan of the abdomen pelvis was done. There was no evidence of diverticulitis. There is no evidence of obstruction abscess perforation. It did show some mild constipation. A lipoma was noted in the left gluteal area. This finding was relayed to patient. Follow-up on an outpatient basis. Encourage vegetable. MiraLax as needed for constipation. In stable condition. Explained to patient a rash develop if she has shingles. Differential Diagnosis Differential Diagnoses: The differential diagnosis associated with the presentation includes Kidney stone, obstruction, abscess, perforation, diverticulitis, shingles Admission/Observation Consideration of admission/observation: Escalation of care including admission/observation considered Patient's symptom improved no need for admission Lab Data [facility] Lab Attestation statement: I reviewed the patient's lab results. 09/06/23 12:43 09/06/23 10:46 Labs: Lab Results 09/06/23 09/06/23 09/06/23 Range/Units 10:46 12:43 16:42 WBC 3.9 L (4.8-10.8) X10*3/uL RBC 3.89 L (4.20-5.50) X10*6/uL Hgb 12.7 (12.0-16.0) g/dl Hct 36.3 L (37.0-47.0) % MCV 93.3 (80.0-98.0) fL MCH 32.6 (27.0-33.0) pg MCHC 35.0 (31.0-35.0) g/dl RDW 12.1 (11.0-16.0) % Plt Count 204 (160-400) X10*3/uL MPV 9.4 (9.4-12.3) fL Immature Gran % (Auto) 0.3 (0.0-0.4) % Neut % (Auto) 56.7 (45-73) % Lymph % (Auto) 26.7 (20-40) % [place] % (Auto) 9.8 (2-11) % Eos % (Auto) 5.7 H (0-4) % Baso % (Auto) 0.8 (0-2) % Lymph # (Auto) 1.0 L (1.2-4.9) X10*3/uL [place] # (Auto) 0.4 (0.1-1.2) X10*3/uL Eos # (Auto) 0.2 (0.0-0.4) X10*3/uL Baso # (Auto) 0.0 (0.0-0.2) X10*3/uL Abs Immat Gran (auto) 0.01 (0.00-0.03) X10*3/uL Absolute Neuts (auto) 2.2 (2.0-8.3) x10*3/uL Absolute Nucleated RBC 0.000 (0.0-0.012) X10*3/uL Nucleated RBC % (auto) 0.0 (0.0-0.2) /100WBC Sodium 141 (135-145) mmol/L Potassium 4.7 (3.3-5.1) mmol/L Chloride 106 (96-108) mmol/L Carbon Dioxide 27 (22-29) mmol/L Anion Gap 13 (12-20) BUN 7 L (9-16) mg/dL Creatinine 0.68 (0.5-1.4) mg/dL Estim Creat Clear Calc 68.9 Estimated GFR > 60 POC Glucose 103 (60-115) mg/dL Random Glucose 158 H (60-115) mg/dL Calcium 9.7 (8.4-10.2) mg/dL Magnesium 2.0 (1.6-2.6) mg/dL Total Bilirubin 0.3 (0.0-1.0) mg/dL Direct Bilirubin 0.1 (0.0-0.5) mg/dL AST 15 (5-31) U/L ALT 18 (0-31) U/L Alkaline Phosphatase 53 (39-117) U/L Total Protein 6.8 (6.5-8.0) g/dL Albumin 4.0 (3.5-5.0) g/dL Urine Color Yellow Urine Appearance Clear Urine pH 7.0 (5.0-9.0) Ur Specific [place] <= 1.005 (1.005-1.025) Urine Protein Negative (Neg-Trace) mg/dL Urine Glucose (UA) Negative (Negative) mg/dL Urine Ketones Negative (Negative) mg/dL Urine Blood Negative (Negative) Urine Nitrite Negative (Negative) Ur Leukocyte Esterase Negative (Negative) Urine RBC 0-2 (0-2) /HPF Urine WBC 0-5 (0-5) /HPF Ur Squamous Epith Cells 0-2 (0-2) /HPF Urine Bacteria None Seen (None Seen) Hyaline Casts 0-2 (0-2) /LPF COVID-19 (MICHELLE) Negative (Negative) COVID-19 Clin Com See Note Independent Interpretation I performed an independent interpretation of an: CT Scan (CT grossly negative for obstruction) Radiology Impression Discussion of test interpretation with radiology: I have reviewed the radiologist's reading. External Record Review External record reviewed: Inpatient record Medications Administered Discontinued Medications Generic Name Dose Route Start Last Admin Trade Name Freq PRN Reason Stop Dose Admin Hydromorphone HCl 0.5 mg 09/06/23 17:40 09/06/23 18:08 Hydromorphone Hcl 0.5 Mg/0.5 Ml Syringe IVPUSH 09/06/23 17:41 0.5 mg ONCE ONE Administration Protocol Hydromorphone HCl 0.5 mg 09/06/23 18:38 09/06/23 18:59 Hydromorphone Hcl 0.5 Mg/0.5 Ml Syringe IVPUSH 09/06/23 18:39 0.5 mg ONCE ONE Administration Protocol Sodium Chloride 1,000 mls @ 999 mls/hr 09/06/23 17:45 09/06/23 18:08 Ns IV 09/06/23 18:45 999 mls/hr .Q1H1M COTY Administration Iohexol 85 ml 09/06/23 18:05 09/06/23 18:06 Iohexol 350 Mg/Ml 100 Ml Infus..Btl IV 09/06/23 18:06 85 ml ONCE ONE Administration Ondansetron HCl 4 mg 09/06/23 17:40 09/06/23 18:08 Ondansetron Hcl 4 Mg/2 Ml Vial IVPUSH 09/06/23 17:41 4 mg ONCE ONE Administration Discharge Plan Discharge Clinical Impression: Constipation Patient Disposition: Home, Self-Care Instructions: Constipation (DC) Additional Instructions: A lipoma was noted on your CT scan. Please closely follow-up on an outpatient basis. A copy of the CT report was given to you. Prescriptions: No Action Eliquis 5 mg tablet 5 mg PO BID Qty: 60 1RF diltiazem HCl 240 mg capsule,extended release 24 hr 240 mg PO QAM Qty: 90 1RF budesonide-formoterol [Symbicort] 160-4.5 mcg/actuation HFA aerosol inhaler 2 puff inhalation BID lorazepam 0.5 mg tablet 0.5 mg PO DAILY PRN ipratropium-albuterol 18-103 mcg/actuation aerosol inhalation cholecalciferol (vitamin D3) 25 mcg (1,000 unit) capsule 25 mcg PO DAILY cyanocobalamin (vitamin B-12) 1,000 mcg capsule 1,000 mcg PO DAILY metformin 500 mg tablet 500 mg PO BID pravastatin 80 mg tablet 80 mg PO BEDTIME sertraline 100 mg tablet 100 mg PO DAILY trazodone 100 mg tablet 100 mg PO BEDTIME PRN All Day Allergy (cetirizine) 10 mg capsule 10 mg PO DAILY Referrals: Silva Dhaliwal MD [Primary Care Provider] - 09/10/23
[2023-09-06 18:00] VITALS: BP 131/62; PULSE 58; RESP 18; O2SAT 99
[2023-09-06] MEDS: iohexoL 350 MG/ML 100 ML INFUS..BTL 85 ML IV (18:06)
[2023-09-06] MEDS: 0.9 % Sodium Chloride 1,000 ML 999 ML IV (18:08)
[2023-09-06] MEDS: ondansetron HCL 4 MG/2 ML VIAL IVPUSH (18:08)
[2023-09-06] MEDS: HYDROmorphone HCl 0.5 MG/0.5 ML SYRINGE IVPUSH ×2 (18:08→18:59)
--- NOTE | 2023-09-06 19:36 | PC.NURSE ---
itching following dialudid x 2. provider made aware and benadryl requested. No rash noted. No diff breathing.
[2023-09-06] MEDS: diphenhydrAMINE HCL 25 MG CAPSULE 50 MG PO (20:10)
== END 2023-09-06 20:18 | disposition home or self-care (01) ==
PROVIDERS: Emergency Medicine; Physician Assistant Medical; Emergency Provider Emergency Medicine Emergency Medical Services; PCP Family Medicine
DX: K59.00 Constipation, unspecified (principal); E11.9 Type 2 diabetes mellitus without complications; I48.0 Paroxysmal atrial fibrillation; Z79.01 Long term (current) use of anticoagulants; Z79.84 Long term (current) use of oral hypoglycemic drugs; Z79.899 Other long term (current) drug therapy; Z11.52 Encounter for screening for COVID-19
CPT/HCPCS: 36415; 74177; 80048; 80076; 81001; 82947; 83735; 85025; 87635; 96361; 96374; 96375; 96376; 99284; J1170; J2405; Q9967

== ENCOUNTER 2023-09-17 09:06 | Outpatient (AMB) | payer OTHER, SELFPAY ==
[2023-09-17 09:15] VITALS: BP 120/60; PULSE 89; O2SAT 96; BMI 28.0
--- NOTE | 2023-09-17 09:15 | A.OFFVIS_ITS ---
Intake Vital Signs 09/17/23 09:15 Height 5 ft 1 in Weight 148 lb BMI 28.0 BP 120/60 Blood Pressure Location Lt brachial Position Sitting Pulse 89 Pulse Source Pulse Oximeter Pulse Oximetry (%) 96 Oxygen Delivery Method Room Air Intake Visit Reasons: Shortness of breath Intake Note: pt is here for follow up and states her breathing is on and off, she is using acupuncture and this helps. pt does have sleep study next month. 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 Allergies hydromorphone [From Dilaudid] Adverse Reaction (Verified 09/17/23 09:21) Itching Medication List - Last Reconciled 09/17/23 by Sharyn Titus MD apixaban (Eliquis) 5 mg PO BID cetirizine (All Day Allergy (cetirizine)) 10 mg PO DAILY cholecalciferol (vitamin D3) 25 mcg PO DAILY cyanocobalamin (vitamin B-12) 1,000 mcg PO DAILY diltiazem HCl ER 240 mg PO QAM ipratropium-albuterol 18-103 mcg/actuation sprays inhalation lorazepam 0.5 mg PO DAILY PRN metformin 500 mg PO BID mometasone-formoterol 200-5 mcg/actuation (Dulera) 2 puffs inhalation BID sertraline 100 mg PO DAILY trazodone 100 mg PO BEDTIME PRN Do you need a note to return to daycare/school/sports/work: No HPI Shortness of breath HPI Details This 73 years old very pleasant female is here for follow-up for her shortness of breath. She has mild degree of bronchial asthma/COPD. She has been doing well with use of Symbicort 160-4.5 which has now been Ye changed to Dulera 200-5 because of insurance policy. She has actually not been using Dulera regularly but uses Combivent Respimat 1 inhalation Q 6 hours only as needed. Lately she started having acupuncture and cupping treatments once a week, and she claims that her breathing has been better than before. She still gets short of breath on climbing stairs or walking up hill. Sleep is still disturbed, she had declined to undergo home-based sleep study but now she is scheduled to have it next month. [facility] Medical History Somnolence, daytime MARITZA (obstructive sleep apnea) CAD (coronary artery disease) Severe asthma Diabetes Paroxysmal atrial fibrillation Left ankle injury Surgical History History of section History of tubal ligation H/O right knee surgery Social History Alcohol intake: never Patient Tobacco Use Status: Former Tobacco user Review of Systems Const All systems reviewed & are unremarkable except as noted in HPI and below Eyes Reports no additional complaints ENT Reports no additional complaints, Denies dizziness and Reports nasal congestion (Mild off and) Card Denies syncope, Denies irregular heart rhythm and Denies leg edema Resp Reports as per HPI GI Reports heartburn (History of GERD symptoms being treated) Reports no additional complaints Musc Reports no additional complaints Skin/Breast Reports system reviewed and no additional complaints, except as documented Neuro Denies dizziness and Denies syncope Psych Reports anxiety and Reports depression Endo Reports no additional complaints Hernan/Lymph Reports no additional complaints Aller/Immun Reports no additional complaints Physical Exam Vital Signs: Last Vital Signs Pulse 89 09/17/23 09:15 BP 120/60 09/17/23 09:15 Pulse Ox 96 09/17/23 09:15 Oxygen Delivery Method Room Air 09/17/23 09:15 BMI result Body Mass Index 28.0 Const General: healthy appearing, comfortable, no acute distress, alert and awake Orientation/consciousness: patient oriented x3 HEENT Head: Yes normal to inspection General nose exam: No nasal polyps present and No nasal discharge present Face and sinus: Yes sinuses nontender Mouth: oropharynx normal (Mallampati class 2) Throat: Yes posterior oropharynx normal Eyes General: appearance normal, both eyes and all related structures Neck Other: Neck circumference 14-1/2 inch Neck: Yes normal visual inspection, Yes no lymphadenopathy, Yes trachea midline and Yes no JVD Thyroid: Thyroid normal Chest Chest palpation & inspection: normal inspection of the chest, normal palpation of entire chest wall and no tenderness Resp Other: Percussion note is resonant. Breath sounds are only slightly distant. No wheezes rhonchi or crepitations are heard. Cardio Palpation: normal PMI Rate: regular rate Rhythm: regular rhythm Heart sounds: no gallops and no murmurs GI Palpation (GI): Soft to palpation, nontender, No hepatosplenomegaly present and no masses Auscultation: normal bowel sounds Back/Spine/Pelvis Thoracic/Lumbar Spine: thoracic and lumbar spine normal to inspection Skin General skin exam: no rashes or lesions noted Neuro General: patient oriented x3 and no focal motor deficits Cranial nerves: Yes CN's II-XII intact bilaterally Extrem General: Yes normal to inspection, Yes no clubbing, cyanosis or edema and Yes no calf tenderness Psych Speech and movement: Normal speech and movement present Assessment & Plan Assessment & Plan (1) Severe asthma: Comment: Longstanding history of bronchial asthma, most probably allergic in nature, history of status asthmaticus a few times but many years ago. Currently seems to be well controlled. Code(s): J45.909 - Unspecified asthma, uncomplicated Plan: [place] : SYMBICORT 160-4.52 replaced by DULERA 200-5 2PUFFS B.I.D. USE COMBIVENT RESPIMAT 1 INHALATION Q 4-6 HOURS P.R.N.. GOOD LUCK WITH ACU-PUNCTURE THERAPY (2) MARITZA (obstructive sleep apnea): Comment: SHE HAS PAST HISTORY OF OBSTRUCTIVE SLEEP APNEA, COULD NOT USE THE CPAP DUE TO ANXIETY AND PANIC-LIKE SYMPTOMS WITH THE MASK ON THE FACE. HAS LOST SOME WEIGHT. STILL HAS VERY POOR SLEEP , SNORING ,AND EXCESSIVE DAYTIME SLEEPINESS, WILL DO A HOME-BASED SLEEP STUDY. SHE MISSED HER APPOINTMENT, NOW HAS REALLY APPOINTMENT FOR NEXT MONTH. Code(s): G47.33 - Obstructive sleep apnea (adult) (pediatric) Plan: ABOVE Coding Level of Care Code Est Pt Level 3 (61534) Diagnoses Severe asthma J45.909 MARITZA (obstructive sleep apnea) G47.33
== END 2023-09-17 09:31 | disposition home or self-care (01) ==
PROVIDERS: PCP Family Medicine; Visit Provider Internal Medicine
DX: J45.909 Unspecified asthma, uncomplicated (principal); G47.33 Obstructive sleep apnea (adult) (pediatric)
CPT/HCPCS: 99213

== ENCOUNTER → 2023-09-17 09:06 | Outpatient (BNVA) | payer OTHER, SELFPAY | PROVIDERS: PCP Family Medicine; Visit Provider Internal Medicine | DX: J45.909 Unspecified asthma, uncomplicated (principal); G47.33 Obstructive sleep apnea (adult) (pediatric) | CPT/HCPCS: 99212 ==

== ENCOUNTER → 2023-10-10 09:39 | Outpatient (REF) | payer OTHER, SELFPAY | LOC: HO.SL 09:39 | PROVIDERS: PCP Family Medicine; Visit Provider Internal Medicine | DX: G47.33 Obstructive sleep apnea (adult) (pediatric) (principal); R40.0 Somnolence | CPT/HCPCS: 95806 ==

== ENCOUNTER → 2023-10-10 09:47 | Outpatient (BNV) | payer OTHER, SELFPAY | PROVIDERS: PCP Family Medicine; Visit Provider Internal Medicine | DX: R06.83 Snoring (principal) | CPT/HCPCS: 95806 ==

== ENCOUNTER 2024-01-07 09:37 | Outpatient (AMB) | payer OTHER, SELFPAY ==
--- NOTE | 2024-01-07 09:58 | MHC.OFFVIS ---
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 Allergies hydromorphone [From Dilaudid] Adverse Reaction (Verified 09/17/23 09:21) Itching Medication List - Last Reconciled 01/07/24 by eZb Chisholm MD apixaban (Eliquis) 5 mg PO BID cetirizine (All Day Allergy (cetirizine)) 10 mg PO DAILY cholecalciferol (vitamin D3) 25 mcg PO DAILY cyanocobalamin (vitamin B-12) 1,000 mcg PO DAILY diltiazem HCl ER 240 mg PO QAM ipratropium-albuterol 18-103 mcg/actuation sprays inhalation lorazepam 0.5 mg PO DAILY PRN metformin 500 mg PO BID mometasone-formoterol 200-5 mcg/actuation (Dulera) 2 puffs inhalation BID sertraline 100 mg PO DAILY trazodone 100 mg PO BEDTIME PRN HPI Comments Details: Annemarie comes for follow-up. She continues to have symptoms of exertional shortness of breath and chest tightness. She is very bothered by it. Has gets worse when she is in humid weather although she is worried about her heart issues. I did discuss that her myocardial perfusion imaging was within normal limits and her echocardiogram is within normal limits. She also with the last couple of months he has been having symptoms of palpitations that last for about 30 seconds to a minute but she feels rapid heart rate. She is bothered by the symptoms. No change in her general medical condition or her medications. She continues take all her medications. Takes apixaban regularly. Denies any orthopnea, PND, leg edema. [facility] Medical History Somnolence, daytime MARITZA (obstructive sleep apnea) CAD (coronary artery disease) Severe asthma Diabetes Paroxysmal atrial fibrillation Left ankle injury Surgical History History of section History of tubal ligation H/O right knee surgery Social History Alcohol intake: never Patient Tobacco Use Status: Former Tobacco user Review of Systems Const Denies chills, Denies fatigue, Denies fever(s), Denies frequent falls, Denies weakness, Denies weight gain and Denies weight loss ENT Denies dizziness Card Denies chest pain, Denies leg edema, Denies lightheadedness, Denies palpitations, Denies dyspnea, Denies dyspnea on exertion, Denies orthopnea and Denies other (loss of consciousness) Resp Denies cough, Denies dyspnea and Denies dyspnea on exertion GI Denies hematochezia and Denies change in stool character Musc Denies abnormal gait, Denies muscle weakness, Denies numbness, Denies radiating pain into limb and Denies tingling Neuro Denies abnormal gait, Denies dizziness, Denies frequent falls, Denies numbness, Denies tingling and Denies weakness Endo Denies fatigue and Denies palpitations Physical Exam Vital Signs: Last Vital Signs Pulse 86 01/07/24 10:00 BP 120/76 01/07/24 10:00 BMI result Body Mass Index 27.9 Const General: cooperative, comfortable, no acute distress, well developed, alert and awake Nutritional Appearance: overweight Orientation/consciousness: patient oriented x3 Limitations: no limitations HEENT Head: Yes normocephalic and Yes atraumatic Neck Neck: Yes trachea midline, Yes supple and Yes no JVD Resp Effort & Inspection: normal respiratory effort Auscultation: wheezes scattered wheezes and diminished lung sounds Cardio Jugular venous distension: no JVD Palpation: normal PMI Rate: regular rate Rhythm: regular rhythm Heart sounds: S1 normal heart sound present, S2 normal heart sound present, no click, no gallops, no murmurs and no rubs GI Auscultation: normal bowel sounds Skin General skin exam: no rashes or lesions noted Neuro General: patient oriented x3 and no focal motor deficits Extrem General: Yes no clubbing, cyanosis or edema Assessment & Plan Assessment & Plan (1) Paroxysmal atrial fibrillation: Comment: Documented, triggered by acute medical illness at 1 time post knee replacement in setting of significant pain and it 2nd time with acute asthma exacerbation 2009. No documented episodes since Code(s): I48.0 - Paroxysmal atrial fibrillation Category: Medical Plan: Paroxysmal atrial fibrillation, has predominantly been suppressed with short episodes not which sound like atrial fibrillation. Although the episodes of very short duration although frequent. I do not think there should be any change in therapy. Avoidance of stimulants was discussed. Consider switching her albuterol therapy to Xopenex therapy. Advised to follow that through with Pulmonary. Continue full oral anticoagulation with Eliquis 5 mg b.i.d.. Semi annual renal function test should be pursued. Continue aggressive blood pressure control. Continue CPAP therapy. CHADSVASc score of4 (2) Exertional chest pain: Code(s): R07.9 - Chest pain, unspecified Plan: Patient with continued symptoms exertional shortness of breath along with chest tightness. She is very bothered about her heart condition. Advised to undergo coronary CTA to completely rule out anatomical if there any significant obstructive lesions. Further treatment based on the findings. Continue current therapy. Continue generalized risk factor modification. Goal LDL less than 100 mg/dL. Blood pressure is well optimized at this point time. Diabetes under your care with goal hemoglobin A1c less than 7%. Will follow up in the clinic in 1 year's time, sooner p.r.n.. Thank you for allowing me to partake in her care Orders: Orders CT Cardiac Coronary Angio 2 Weeks R06.02 - Shortness of breath Coding Level of Care Code Est Pt Level 4 (52053) Diagnoses Paroxysmal atrial fibrillation I48.0 Exertional chest pain R07.9
[2024-01-07 10:00] VITALS: BP 120/76; PULSE 86; BMI 27.9
== END 2024-01-07 10:25 | disposition home or self-care (01) ==
PROVIDERS: PCP Family Medicine; Visit Provider Internal Medicine Cardiovascular Disease
DX: I48.0 Paroxysmal atrial fibrillation (principal); R07.9 Chest pain, unspecified
CPT/HCPCS: 99214

== ENCOUNTER → 2024-01-07 09:37 | Outpatient (BNVA) | payer MEDICARE, SELFPAY | PROVIDERS: PCP Family Medicine; Visit Provider Internal Medicine Cardiovascular Disease | DX: I48.0 Paroxysmal atrial fibrillation (principal); R07.9 Chest pain, unspecified | CPT/HCPCS: 99212 ==

== ENCOUNTER 2024-01-14 09:20 | Outpatient (AMB) | payer OTHER, SELFPAY ==
--- NOTE | 2024-01-14 09:27 | A.OFFVIS_ITS ---
Vital Signs 01/14/24 09:28 Height 5 ft 1 in Weight 149 lb 0.92 oz BMI 28.2 BP 102/62 Blood Pressure Location Lt brachial Position Sitting Pulse 70 Pulse Source Pulse Oximeter Pulse Oximetry (%) 95 Oxygen Delivery Method Room Air Intake Visit Reasons: Shortness of breath Intake Note: pt is here for follow up and states she is still getting shortness of breath with exertion and lately it has been getting bad Regulatory Leader Required: No Allergies hydromorphone [From Dilaudid] Adverse Reaction (Verified 01/14/24 09:36) Itching Medication List - Last Reconciled 01/14/24 by Sharyn Titus MD apixaban (Eliquis) 5 mg PO BID cetirizine (All Day Allergy (cetirizine)) 10 mg PO DAILY cholecalciferol (vitamin D3) 25 mcg PO DAILY cyanocobalamin (vitamin B-12) 1,000 mcg PO DAILY diltiazem HCl ER 240 mg PO QAM ipratropium-albuterol 18-103 mcg/actuation sprays inhalation lorazepam 0.5 mg PO DAILY PRN metformin 500 mg PO BID mometasone-formoterol 200-5 mcg/actuation (Dulera) 2 puffs inhalation BID sertraline 100 mg PO DAILY trazodone 100 mg PO BEDTIME PRN Do you need a note to return to daycare/school/sports/work: No HPI HPI Shortness of breath: Details: Annemarie is 73 years old female with diagnosis of bronchial asthma/COPD, Comes after 4 months for follow-up. Has been doing very well except for shortness of breath on exertion . Now at the onset of summer months she has more allergy issues with nasal congestion and some cough. She thinks that Dulera does not work as good as Symbicort used to work. But had to changed to Dulera because of her insurance issue. Home-based sleep study was negative for sleep apnea, so she does not need to use CPAP.. Her sleep is usually fragmented and she uses trazodone 100 at bedtime p.r.n. for sleep. [facility] Medical History Somnolence, daytime MARITZA (obstructive sleep apnea) CAD (coronary artery disease) Severe asthma Diabetes Paroxysmal atrial fibrillation Left ankle injury Surgical History History of section History of tubal ligation H/O right knee surgery Social History Alcohol intake: never Patient Tobacco Use Status: Former Tobacco user Review of Systems Const All systems reviewed & are unremarkable except as noted in HPI and below Eyes Reports no additional complaints ENT Reports no additional complaints, Denies dizziness and Reports nasal congestion (Mild off and) Card Denies syncope, Denies irregular heart rhythm and Denies leg edema Resp Reports as per HPI GI Reports heartburn (History of GERD symptoms being treated) Reports no additional complaints Musc Reports no additional complaints Skin/Breast Reports system reviewed and no additional complaints, except as documented Neuro Denies dizziness and Denies syncope Psych Reports anxiety and Reports depression Endo Reports no additional complaints Hernan/Lymph Reports no additional complaints Aller/Immun Reports no additional complaints Physical Exam Vital Signs: Last Vital Signs Pulse 70 01/14/24 09:28 BP 102/62 01/14/24 09:28 Pulse Ox 95 01/14/24 09:28 Oxygen Delivery Method Room Air 01/14/24 09:28 BMI result Body Mass Index 28.2 Const General: healthy appearing, comfortable, no acute distress, alert and awake Orientation/consciousness: patient oriented x3 HEENT Head: Yes normal to inspection General nose exam: No nasal polyps present and No nasal discharge present Face and sinus: Yes sinuses nontender Mouth: oropharynx normal (Mallampati class 2) Throat: Yes posterior oropharynx normal Eyes General: appearance normal, both eyes and all related structures Neck Other: Neck circumference 14-1/2 inch Neck: Yes normal visual inspection, Yes no lymphadenopathy, Yes trachea midline and Yes no JVD Thyroid: Thyroid normal Chest Chest palpation & inspection: normal inspection of the chest, normal palpation of entire chest wall and no tenderness Resp Other: Percussion note is resonant. Breath sounds are only slightly distant. No wheezes rhonchi or crepitations are heard. Cardio Palpation: normal PMI Rate: regular rate Rhythm: regular rhythm Heart sounds: no gallops and no murmurs GI Palpation (GI): Soft to palpation, nontender, No hepatosplenomegaly present and no masses Auscultation: normal bowel sounds Back/Spine/Pelvis Thoracic/Lumbar Spine: thoracic and lumbar spine normal to inspection Skin General skin exam: no rashes or lesions noted Neuro General: patient oriented x3 and no focal motor deficits Cranial nerves: Yes CN's II-XII intact bilaterally Extrem General: Yes normal to inspection, Yes no clubbing, cyanosis or edema and Yes no calf tenderness Psych Speech and movement: Normal speech and movement present Results Reviewed Results Reviewed: The results of sleep study her discussed with the patient. Total sleep time AHI was only 3.0 and snoring for 19% of the sleep time. Assessment & Plan Assessment & Plan (1) Severe asthma: Comment: Longstanding history of bronchial asthma, most probably allergic in nature, history of status asthmaticus a few times but many years ago. Currently seems to be well controlled. Code(s): J45.909 - Unspecified asthma, uncomplicated Category: Medical Plan: Continue present medical regimen including : DULERA 200-5 2 PUFFS B.I.D.. COMBIVENT RESPIMAT 1 INHALATION Q 6 HOURS P.R.N. (2) SOB (shortness of breath) on exertion: Comment: SHORTNESS OF BREATH ON EXERTION MAY BE DUE TO COPD ALONG WITH BRONCHIAL ASTHMA. SPIROMETRY : CONSISTENT WITH MILD TO MODERATE DEGREE OF OBSTRUCTIVE AIRWAY DISORDER. I EXPLAINED TO HER ABOUT DOING DEEP BREATHING EXERCISES IF SHE FEELS ANXIOUS AND SHORT OF BREATH. Code(s): R06.02 - Shortness of breath Category: Medical Plan: ABOVE (3) Somnolence, daytime: Comment: EXCESSIVE FATIGUE AND SOMNOLENCE DURING THE DAYTIME MAY BE A RESULT OF POOR SLEEP AT NIGHT AND ALSO DUE TO ANXIETY AND DEPRESSION. NOTED ABOVE HER HOME-BASED SLEEP STUDY WAS NEGATIVE FOR SLEEP APNEA. Code(s): R40.0 - Somnolence Category: Medical Plan: SLEEP HYGIENE DISCUSSED, MAY USE TRAZODONE 100 AT BEDTIME P.R.N. Coding Level of Care Code Est Pt Level 3 (21051) Diagnoses Severe asthma J45.909 SOB (shortness of breath) on exertion R06.02 Somnolence, daytime R40.0
[2024-01-14 09:28] VITALS: BP 102/62; PULSE 70; O2SAT 95; BMI 28.2
== END 2024-01-14 09:45 | disposition home or self-care (01) ==
PROVIDERS: PCP Family Medicine; Referring Provider Family Medicine; Visit Provider Internal Medicine
DX: J45.909 Unspecified asthma, uncomplicated (principal); R06.02 Shortness of breath; R40.0 Somnolence
CPT/HCPCS: 99213

== ENCOUNTER → 2024-01-14 09:20 | Outpatient (BNVA) | payer OTHER, SELFPAY | PROVIDERS: PCP Family Medicine; Visit Provider Internal Medicine | DX: J45.909 Unspecified asthma, uncomplicated (principal); R06.02 Shortness of breath; R40.0 Somnolence | CPT/HCPCS: 99212 ==

== ENCOUNTER 2024-01-29 18:10 | Emergency (ER) | payer OTHER, SELFPAY ==
--- NOTE | ~2024-01-29 | XR_ITS ---
EXAMINATION: XR CHEST CLINICAL INFORMATION: Shortness of breath. COMPARISON: Previous chest x-ray April 2023. TECHNIQUE: 2 view chest. FINDINGS: The cardiac and mediastinal contours are stable. The lungs are clear. No pleural effusion or pneumothorax. Degenerative changes of the spine. XR/XR chest 2V IMPRESSION: No evidence for acute disease in the chest.
--- NOTE | 2024-01-29 18:14 | ECG_ITS ---
Test Reason : SOB Blood Pressure : / mmHG Vent. Rate : 120 BPM Atrial Rate : 000 BPM P-R Int : 000 ms QRS Dur : 100 ms QT Int : 298 ms P-R-T Axes : 000 -20 017 degrees QTc Int : 421 ms Atrial fibrillation with rapid ventricular response Septal infarct , age undetermined Abnormal ECG When compared with ECG of 11-MAY-2019 16:47, Atrial fibrillation has replaced Sinus rhythm Vent. rate has increased BY 53 BPM Nonspecific T wave abnormality now evident in Lateral leads Referred By: Generic ED Physician Electronically Signed By:CARLOS PEACOCK
[2024-01-29 18:47] VITALS: BP 134/59; PULSE 77; RESP 18; TEMP 36.9; O2SAT 97; BMI 29.4
--- NOTE | 2024-01-29 19:17 | ED_ITS ---
HPI - Asthma General Chief Complaint: Asthma Stated Complaint: sob asthma afib Time Seen by Provider: 01/29/24 18:57 History of Present Illness ED Provider: Dr. Busby HPI Narrative: 73 y/o F patient; PMH asthma, CAD, T2DM, paroxysmal atrial fibrillation; presents from home reporting two days of worsening pain with inspiration associated with dyspnea. She denies: cough/congestion, fever or chills, chest pain, nausea/vomiting, diarrhea, syncope. Patient follows with pulmonology - last seen seen in office 01/14/2024 where she had follow up for a negative sleep apnea study. Related Data Home Medications ?Medication ?Instructions ?Recorded ?Confirmed cholecalciferol (vitamin D3) 25 25 mcg PO DAILY 04/09/23 01/07/24 mcg (1,000 unit) capsule cyanocobalamin (vitamin B-12) 1,000 mcg PO DAILY 04/09/23 01/07/24 1,000 mcg capsule ipratropium 18 mcg-albuterol 103 spray inhalation 04/09/23 01/07/24 mcg/actuation aerosol inhaler lorazepam 0.5 mg tablet 0.5 mg PO DAILY PRN 04/09/23 01/07/24 metformin 500 mg tablet 500 mg PO BID 04/09/23 01/07/24 sertraline 100 mg tablet 100 mg PO DAILY 04/09/23 01/07/24 trazodone 100 mg tablet 100 mg PO BEDTIME PRN 04/09/23 01/07/24 cetirizine 10 mg capsule (All Day 10 mg PO DAILY 04/30/23 01/07/24 Allergy (cetirizine)) mometasone-formoterol HFA 200 2 puff inhalation BID 09/17/23 01/07/24 mcg-5 mcg/actuation aerosol inhaler (Dulera) Previous Rx's ?Medication ?Instructions ?Recorded apixaban 5 mg tablet (Eliquis) 5 mg PO BID #60 tabs 06/25/23 diltiazem HCl 240 mg capsule,24 240 mg PO QAM #90 caps 06/25/23 hr,extended release Allergies Allergy/AdvReac Type Severity Reaction Status Date / Time hydromorphone [From Dilaudid] AdvReac Itching Verified 01/29/24 18:53 Review of Systems 2 Review of Systems: Yes all other systems are reviewed and are negative [facility] Past Medical History Attestation statement: The following information was validated with the patient. Source: old records reviewed Medical History Somnolence, daytime MARITZA (obstructive sleep apnea) CAD (coronary artery disease) Severe asthma Diabetes Paroxysmal atrial fibrillation Left ankle injury Surgical History History of section History of tubal ligation H/O right knee surgery Social History Social History Alcohol intake: never Patient Tobacco Use Status: Former Tobacco user Advance Directives: No Advance Directives Information Provided: No Do you have a plan to hurt others: No Plan Physical Exam 2 Vital Signs: Vital Signs: Last Vital Signs Temp 98.5 F 01/29/24 18:47 Pulse 77 01/29/24 18:47 Resp 16 01/29/24 20:53 BP 134/59 L 01/29/24 18:47 Pulse Ox 97 01/29/24 18:47 O2 Del Method Room Air 01/29/24 18:47 BMI result Body Mass Index 29.4 Patient is afebrile and hemodynamically stable. Const: General: cooperative HEENT: Head: Yes normal to inspection and Yes atraumatic Eyes: General: appearance normal, both eyes and all related structures P upils: Equal, round and reactive pupils present EOM: EOMs intact bilaterally Neck: Neck: Yes normal visual inspection, Yes full ROM, Yes supple and No tender Chest: Chest palpation & inspection: normal inspection of the chest and normal palpation of entire chest wall Resp: Other: Diminished bilaterally Effort & Inspection: normal respiratory effort, able to speak in complete sentences, no cough and no respiratory distress Cardio: Rate: regular rate Rhythm: regular rhythm Peripheral pulses: P eripheral pulses 2+ throughout GI: Inspection: Yes normal to inspection, No Abdominal wall edema and No distended Palpation (GI): Soft to palpation, not firm, nontender, no guarding and not rigid Auscultation: normal bowel sounds Neuro: Cranial nerves: Yes Equal, round and reactive pupils present Course Course Course Narrative: Patient is afebrile and hemodynamically stable. Initial EKG demonstrated atrial fibrillation with RVR, however during initial exam with this provider patient is NSR in 80s. Will obtain cardiorespiratory labs and CXR. Will provided prednisone 40mg PO and request ED bronchodilator protocol. Reevaluation(s) Reevaluation #1: CXR unremarkable. Labs reassuring. Negative troponin Patient received Ventolin 5mg x1 with significant improvement in work of breathing. She declined prednisone as it makes her anxious. Patient observed to be going in and out of atrial fibrillation. At time of discharge HR 80 in NSR. Patient states she frequently goes in and out of atrial fibrillation, she was recently seen by cardiology and recommended to have a medication adjustment. She is pending cardiology re-evaluation in 6 months. Patient encouraged to call cardiology for earlier appointment. She voiced understanding. Patient offered admission for atrial fibrillation but would prefer to have out-patient work up. She expressed she would return to the emergency department if her symptoms worsen but at this time she is feeling improved. Plan: Discharge to home with PCP and Cardiology follow up within the next 24 hours Condition: Stable Medications Administered Discontinued Medications Generic Name Dose Route Start Last Admin Trade Name Marquisq PRN Reason Stop Dose Admin Albuterol Sulfate 5 mg/ 0 mg 01/29/24 20:18 01/29/24 20:52 Albuterol/Ipratropium 3 ml INHALE 01/29/24 20:19 1 each ONCE ONE Administration Prednisone 40 mg 01/29/24 19:26 01/29/24 21:04 Prednisone 20 Mg Tablet PO 01/29/24 19:27 Not Given ONCE ONE Medical Decision Making Lab Data 01/29/24 19:56 01/29/24 19:56 Labs: Lab Results 01/29/24 Range/Units 19:56 WBC 4.7 L (4.8-10.8) X10*3/uL RBC 4.01 L (4.20-5.50) X10*6/uL Hgb 13.4 (12.0-16.0) g/dl Hct 37.1 (37.0-47.0) % MCV 92.5 (80.0-98.0) fL MCH 33.4 H (27.0-33.0) pg MCHC 36.1 H (31.0-35.0) g/dl RDW 12.3 (11.0-16.0) % Plt Count 204 (160-400) X10*3/uL MPV 9.6 (9.4-12.3) fL Immature Gran % (Auto) 0.4 (0.0-0.4) % Neut % (Auto) 50.4 (45-73) % Lymph % (Auto) 34.4 (20-40) % [place] % (Auto) 9.3 (2-11) % Eos % (Auto) 4.2 H (0-4) % Baso % (Auto) 1.3 (0-2) % Lymph # (Auto) 1.6 (1.2-4.9) X10*3/uL [place] # (Auto) 0.4 (0.1-1.2) X10*3/uL Eos # (Auto) 0.2 (0.0-0.4) X10*3/uL Baso # (Auto) 0.1 (0.0-0.2) X10*3/uL Abs Immat Gran (auto) 0.02 (0.00-0.03) X10*3/uL Absolute Neuts (auto) 2.4 (2.0-8.3) x10*3/uL Absolute Nucleated RBC 0.000 (0.0-0.012) X10*3/uL Nucleated RBC % (auto) 0.0 (0.0-0.2) /100WBC Sodium 138 (135-145) mmol/L Potassium 4.4 (3.3-5.1) mmol/L Chloride 102 (96-108) mmol/L Carbon Dioxide 26 (22-29) mmol/L Anion Gap 14 (12-20) BUN 14 (9-16) mg/dL Creatinine 0.77 (0.5-1.4) mg/dL Estim Creat Clear Calc 60.2 Estimated GFR > 60 Random Glucose 205 H (60-115) mg/dL Calcium 9.9 (8.4-10.2) mg/dL Magnesium 2.1 (1.6-2.6) mg/dL Total Bilirubin 0.3 (0.0-1.0) mg/dL Direct Bilirubin 0.1 (0.0-0.5) mg/dL AST 13 (5-31) U/L ALT 17 (0-31) U/L Alkaline Phosphatase 85 (39-117) U/L Troponin I High Sens < 2.7 (<3.5-17.0) ng/L Total Protein 6.9 (6.5-8.0) g/dL Albumin 4.2 (3.5-5.0) g/dL Lipase 19 (8-78) U/L Influenza Type A (PCR) NEGATIVE (Negative) Influenza Type B (PCR) NEGATIVE (Negative) RSV RNA Qual (PCR) NEGATIVE (Negative) SARS-CoV-2 RNA (RT-PCR) NEGATIVE (Negative) Discharge Plan Discharge Clinical Impression: Asthma with acute exacerbation, Paroxysmal atrial fibrillation Patient Disposition: Home, Self-Care Instructions: A-fib (Atrial Fibrillation) (DC) Additional Instructions: As we discussed, you were seen today for shortness of breath. You likely have two things going on 1) your asthma and 2) your atrial fibrillation that comes and goes. You declined steroids. You should follow up with your PCP and [employer] to be seen in the office within the next 24 hours. Return immediately to the emergency department for: Chest pain Difficulty breathing Passing out Prescriptions: No Action Eliquis 5 mg tablet 5 mg PO BID Qty: 60 1RF diltiazem HCl 240 mg capsule,extended release 24 hr 240 mg PO QAM Qty: 90 1RF Dulera 200-5 mcg/actuation HFA aerosol inhaler 2 puff inhalation BID lorazepam 0.5 mg tablet 0.5 mg PO DAILY PRN ipratropium-albuterol 18-103 mcg/actuation aerosol inhalation cholecalciferol (vitamin D3) 25 mcg (1,000 unit) capsule 25 mcg PO DAILY cyanocobalamin (vitamin B-12) 1,000 mcg capsule 1,000 mcg PO DAILY metformin 500 mg tablet 500 mg PO BID sertraline 100 mg tablet 100 mg PO DAILY trazodone 100 mg tablet 100 mg PO BEDTIME PRN All Day Allergy (cetirizine) 10 mg capsule 10 mg PO DAILY Print Language: Lao
--- NOTE | 2024-01-29 19:26 | ECG_ITS ---
Test Reason : RHYTHYM CHANGE Blood Pressure : / mmHG Vent. Rate : 109 BPM Atrial Rate : 000 BPM P-R Int : 000 ms QRS Dur : 096 ms QT Int : 286 ms P-R-T Axes : 000 -34 000 degrees QTc Int : 385 ms Atrial fibrillation with rapid ventricular response Left axis deviation Septal infarct (cited on or before 12-DEC-2017) Abnormal ECG When compared with ECG of 29-JAN-2024 18:19, No significant change was found Referred By: Haley Busby Electronically Signed By:CARLOS PEACOCK
[2024-01-29 20:06] LABS: MANUAL DIFF FLAG NO
[2024-01-29 20:08] LABS: Basophils Absolute Auto 0.1 X10*3/uL (0.0-0.2); Basophils Percent Auto 1.3 % (0-2); Eosinophils Absolute Auto 0.2 X10*3/uL (0.0-0.4); Eosinophils Percent Auto 4.2 % (0-4); Hematocrit 37.1 % (37.0-47.0); Hemoglobin 13.4 g/dl (12.0-16.0); Imm Gran Abs Auto 0.02 X10*3/uL (0.00-0.03); Imm Gran Pct Auto 0.4 % (0.0-0.4); Lymphocytes Absolute Auto 1.6 X10*3/uL (1.2-4.9); Lymphocytes Percent Auto 34.4 % (20-40); Mean Corpuscular HGB Conc 36.1 g/dl (31.0-35.0); Mean Corpuscular Hemoglobin 33.4 pg (27.0-33.0); Mean Corpuscular Volume 92.5 fL (80.0-98.0); Mean Platelet Volume 9.6 fL (9.4-12.3); Monocytes Absolute Auto 0.4 X10*3/uL (0.1-1.2); Monocytes Percent Auto 9.3 % (2-11); Neutrophils Absolute Auto 2.4 x10*3/uL (2.0-8.3); Neutrophils Percent Auto 50.4 % (45-73); Platelet Count 204 X10*3/uL (160-400); Red Blood Count 4.01 X10*6/uL (4.20-5.50); Red Cell Distribution Width 12.3 % (11.0-16.0); White Blood Count 4.7 X10*3/uL (4.8-10.8)
[2024-01-29 20:24] LABS: Alanine Aminotransferase 17 U/L (0-31); Albumin Level 4.2 g/dL (3.5-5.0); Alkaline Phosphatase 85 U/L (39-117); Anion Gap 14 (12-20); Aspartate Amino Transferase 13 U/L (5-31); Bilirubin Direct 0.1 mg/dL (0.0-0.5); Bilirubin Total 0.3 mg/dL (0.0-1.0); Blood Urea Nitrogen 14 mg/dL (9-16); Calcium 9.9 mg/dL (8.4-10.2); Carbon Dioxide 26 mmol/L (22-29); Chloride 102 mmol/L (96-108); Creatinine Clr Calc Pharmacy 60.2; Estimated Glomerular Filt Rate > 60; Glucose Random 205 mg/dL (60-115); Lipase 19 U/L (8-78); Magnesium 2.1 mg/dL (1.6-2.6); Potassium 4.4 mmol/L (3.3-5.1); Sodium 138 mmol/L (135-145); Total Protein 6.9 g/dL (6.5-8.0)
[2024-01-29 20:34] LABS: Troponin-I High Sensitivity < 2.7 ng/L (<3.5-17.0)
[2024-01-29 20:43] LABS: Influenza A PCR NEGATIVE (Negative); Influenza B PCR NEGATIVE (Negative); Resp Syncy Virus RNA Qual PCR NEGATIVE (Negative); SARS COV2 PCR INHOUSE NEGATIVE (Negative)
[2024-01-29] MEDS: Albuterol Sulfate 5 MG, Albuterol/Iprat 2.5/0.5MG 3 ML 3 ML INHALE (20:52)
[2024-01-29 20:53] VITALS: RESP 16
[2024-01-29 21:20] VITALS: BP 120/56; PULSE 90; RESP 19; TEMP 36.5; O2SAT 97
--- NOTE | 2024-01-29 21:32 | PC.NURSE ---
this rn assumed care of pt, pt a&o4, respirations even and unlabored. pt reporting onset of shortness of breath x3 days, reports hx of asthma, used inhaler without relief. pt also reports having palpitations with hx of afib. pt denies shortness of breath at this time and is normal sinus on tele.
[2024-01-29 21:34] VITALS: BP 120/56; PULSE 90; RESP 19; TEMP 36.5; O2SAT 97
== END 2024-01-29 21:34 | disposition home or self-care (01) ==
PROVIDERS: Emergency Provider Emergency Medicine
DX: J45.901 Unspecified asthma with (acute) exacerbation (principal); I48.0 Paroxysmal atrial fibrillation; R06.00 Dyspnea, unspecified; E11.9 Type 2 diabetes mellitus without complications; I25.10 Atherosclerotic heart disease of native coronary artery without angina pectoris; Z03.818 Encounter for observation for suspected exposure to other biological agents ruled out
CPT/HCPCS: 0241U; 71046; 80048; 80076; 83690; 83735; 84484; 85025; 93005; 94640; 99284; 99285

== ENCOUNTER → 2024-01-29 18:14 | Outpatient (BNV) | payer OTHER, SELFPAY | PROVIDERS: Emergency Provider Emergency Medicine; Visit Provider Internal Medicine | DX: R06.02 Shortness of breath (principal); I48.0 Paroxysmal atrial fibrillation; R94.31 Abnormal electrocardiogram [ECG] [EKG] | CPT/HCPCS: 93010 ==

== ENCOUNTER 2024-04-01 16:02 | Emergency (ER) | payer OTHER, SELFPAY ==
--- NOTE | 2024-04-01 16:12 | ECG_ITS ---
Test Reason : CHEST PAIN Blood Pressure : / mmHG Vent. Rate : 077 BPM Atrial Rate : 077 BPM P-R Int : 162 ms QRS Dur : 102 ms QT Int : 378 ms P-R-T Axes : 051 -35 020 degrees QTc Int : 427 ms Normal sinus rhythm Left axis deviation Septal infarct (cited on or before 12-DEC-2017) Abnormal ECG When compared with ECG of 29-JAN-2024 20:13, Sinus rhythm has replaced Atrial fibrillation Nonspecific T wave abnormality, improved in Inferior leads Nonspecific T wave abnormality, improved in Lateral leads Referred By: Generic ED Physician Electronically Signed By:EVELYN DIXON
[2024-04-01 16:29] VITALS: BP 124/58; PULSE 77; RESP 17; BMI 28.0
--- NOTE | 2024-04-01 16:30 | ED_ITS ---
HPI - General Adult General Chief complaint: Arrhythmia/Palpitations Stated complaint: afib, headache, rib pain, diff breathing Time Seen by Provider: 04/01/24 20:59 Source: patient Mode of arrival: ambulatory Limitations: no limitations History of Present Illness ED Provider: adi MCCALL narrative: Patient's history of a paroxysmal atrial fibrillation on Eliquis and diltiazem 240 mg daily noticed more frequent episodes of palpitation for last 6 months been followed by her res habilitation assistant episode lasting only for few minutes but lately for last 2 weeks the lasting longer last episode started last night off and on stay till morning when she arrived in the ER patient did not have an any palpitation patient has had Holter monitoring done in the past which showed AFib patient is supposed to see a res habilitation assistant next week patient's shunt with episodes of palpitation felt dizzy and had some discomfort on the right arm no chest pain no shortness a breath no loss of consciousness Related Data Home Medications ?Medication ?Instructions ?Recorded ?Confirmed cholecalciferol (vitamin D3) 25 25 mcg PO DAILY 04/09/23 01/07/24 mcg (1,000 unit) capsule cyanocobalamin (vitamin B-12) 1,000 mcg PO DAILY 04/09/23 01/07/24 1,000 mcg capsule ipratropium 18 mcg-albuterol 103 spray inhalation 04/09/23 01/07/24 mcg/actuation aerosol inhaler lorazepam 0.5 mg tablet 0.5 mg PO DAILY PRN 04/09/23 01/07/24 metformin 500 mg tablet 500 mg PO BID 04/09/23 01/07/24 sertraline 100 mg tablet 100 mg PO DAILY 04/09/23 01/07/24 trazodone 100 mg tablet 100 mg PO BEDTIME PRN 04/09/23 01/07/24 cetirizine 10 mg capsule (All Day 10 mg PO DAILY 04/30/23 01/07/24 Allergy (cetirizine)) mometasone-formoterol HFA 200 2 puff inhalation BID 09/17/23 01/07/24 mcg-5 mcg/actuation aerosol inhaler (Dulera) Previous Rx's ?Medication ?Instructions ?Recorded apixaban 5 mg tablet (Eliquis) 5 mg PO BID #60 tabs 06/25/23 diltiazem HCl 240 mg capsule,24 240 mg PO QAM #90 caps 06/25/23 hr,extended release Allergies Allergy/AdvReac Type Severity Reaction Status Date / Time hydromorphone [From Dilaudid] AdvReac Itching Verified 04/01/24 16:30 Review of Systems 2 Review of Systems: Yes all other systems are reviewed and are negative [facility] Past Medical History Medical History Somnolence, daytime MARITZA (obstructive sleep apnea) CAD (coronary artery disease) Severe asthma Diabetes Paroxysmal atrial fibrillation Left ankle injury Surgical History History of section History of tubal ligation H/O right knee surgery Social History Social History Alcohol intake: never Patient Tobacco Use Status: Former Tobacco user Smoked in Last 30 Days: No Use of substances other than those prescribed or required for medical reasons: No Advance Directives: No Advance Directives Information Provided: No Physical Exam ED Vital Signs: Vital Signs - 24 hr 04/01/24 16:29 04/01/24 20:41 04/01/24 22:54 Temperature 97.6 F 97.6 F Pulse Rate 77 61 69 Respiratory Rate 17 18 16 Blood Pressure 124/58 L 130/65 132/66 Pulse Oximetry 98 98 Oxygen Delivery Method Room Air Room Air Room Air BMI result Body Mass Index 28.0 Appearance: Alert. Oriented X3. No acute distress. Eyes: PERRLA, No Nystagmus ENT: Pharynx normal. Oral Mucosa moist Neck: Normal inspection. Neck supple. CVS: Normal heart rate and rhythm. Pulses normal. Respiratory: No respiratory distress. Equal air entry bilateral, no wheezing/rales/rhonchi Abdomen: Soft and nontender. Bowel sounds are present, no mass palpable, no CVA tenderness Skin: Skin warm and dry. Normal skin color. Normal skin turgor. Extremities: No lower extremity edema. No calf tenderness Neuro: Oriented X 3. No motor deficit. No sensory deficit.No cerebellar signs , cranial nerves II-XII intact Course Course Course Narrative: This is an RME done by BOB Romero: Additional HPI, ROS, PE not included below will be deferred to primary provider. 73 yoa F with mHx of asthma, afib, MARITZA, diabetes, presents to ED for headaches, right sided arm and neck pain, difficulty breathing which is new for her. She denies dizziness, fevers, abdominal pain, falls, and fatigue Appearance: Alert.? Oriented X3.? No acute cardiopulmonary distress distress.? Head: Normocephalic, atraumatic, no step-offs or deformities ENT: Pharynx normal.??External ears normal, TMs normal bilaterally and EAC's normal. No pain with manipulation of external ears bilaterally. No mastoid tenderness. Neck: Normal inspection.? Neck supple.? CVS: Pulses normal.? Respiratory: No respiratory distress.? Abdomen: Soft and nontender.? Skin: ? Normal skin color. Extremities: 5/5 strength to bilateral upper and lower extremities Back: No midline tenderness, no C-spine tenderness, full range of motion, No CVA tenderness bilaterally Neuro: Oriented X 3.? No motor deficit.? No sensory deficit. Medical Decision Making Medical Decision Making [facility] Narrative: Patient has paroxysmal AFib recently had CT angio of her reports is pending during stay in the ER patient heart rate stayed less than 90 sinus rhythm at this time patient does not want any new medication will follow up with res habilitation assistant advised to report to the ER if she has persistent AFib/dizziness/shortness a breath Differential Diagnosis Differential Diagnoses: The differential diagnosis associated with the presentation includes Lab Data MDM Lab Attestation statement: I reviewed the patient's lab results. 04/01/24 16:45 04/01/24 16:45 Labs: Lab Results 04/01/24 04/01/24 Range/Units 16:45 20:53 WBC 4.0 L (4.8-10.8) X10*3/uL RBC 3.68 L (4.20-5.50) X10*6/uL Hgb 12.3 (12.0-16.0) g/dl Hct 34.5 L (37.0-47.0) % MCV 93.8 (80.0-98.0) fL MCH 33.4 H (27.0-33.0) pg MCHC 35.7 H (31.0-35.0) g/dl RDW 12.4 (11.0-16.0) % Plt Count 188 (160-400) X10*3/uL MPV 9.2 L (9.4-12.3) fL Immature Gran % (Auto) 0.2 (0.0-0.4) % Neut % (Auto) 63.2 (45-73) % Lymph % (Auto) 23.9 (20-40) % [place] % (Auto) 7.5 (2-11) % Eos % (Auto) 4.2 H (0-4) % Baso % (Auto) 1.0 (0-2) % Lymph # (Auto) 1.0 L (1.2-4.9) X10*3/uL [place] # (Auto) 0.3 (0.1-1.2) X10*3/uL Eos # (Auto) 0.2 (0.0-0.4) X10*3/uL Baso # (Auto) 0.0 (0.0-0.2) X10*3/uL Abs Immat Gran (auto) 0.01 (0.00-0.03) X10*3/uL Absolute Neuts (auto) 2.5 (2.0-8.3) x10*3/uL Absolute Nucleated RBC 0.000 (0.0-0.012) X10*3/uL Nucleated RBC % (auto) 0.0 (0.0-0.2) /100WBC PT 11.8 (11.1-13.3) SEC INR 1.0 (0.9-1.1) Sodium 137 (135-145) mmol/L Potassium 5.1 (3.3-5.1) mmol/L Chloride 101 (96-108) mmol/L Carbon Dioxide 28 (22-29) mmol/L Anion Gap 13 (12-20) BUN 10 (9-16) mg/dL Creatinine 0.72 (0.5-1.4) mg/dL Estim Creat Clear Calc 62.8 Estimated GFR > 60 Random Glucose 177 H (60-115) mg/dL Calcium 10.3 H (8.4-10.2) mg/dL Magnesium 2.0 (1.6-2.6) mg/dL Total Bilirubin 0.4 (0.0-1.0) mg/dL AST 22 (5-31) U/L ALT 26 (0-31) U/L Alkaline Phosphatase 66 (39-117) U/L Troponin I High Sens < 2.7 < 2.7 (<3.5-17.0) ng/L B-Natriuretic Peptide 31 (<100) pg/mL Total Protein 7.0 (6.5-8.0) g/dL Albumin 4.3 (3.5-5.0) g/dL Urine Color Yellow Urine Appearance Clear Urine pH 7.5 (5.0-9.0) Ur Specific [place] <= 1.005 (1.005-1.025) Urine Protein Negative (Neg-Trace) mg/dL Urine Glucose (UA) Negative (Negative) mg/dL Urine Ketones Negative (Negative) mg/dL Urine Blood Negative (Negative) Urine Nitrite Negative (Negative) Ur Leukocyte Esterase Negative (Negative) Independent Interpretation I performed an independent interpretation of an: EKG Interpretation: Normal sinus rhythm heart rate 77 beats per minute left axis deviation no acute ST T wave changes no acute ischemia Discharge Plan Discharge Clinical Impression: AF (paroxysmal atrial fibrillation) Patient Disposition: Home, Self-Care Instructions: A-fib (Atrial Fibrillation) (ED) Additional Instructions: Continue take your medication Call your res habilitation assistant in a.m. for further management Report to ER if passing out episode with palpitation Prescriptions: No Action Eliquis 5 mg tablet 5 mg PO BID Qty: 60 1RF diltiazem HCl 240 mg capsule,extended release 24 hr 240 mg PO QAM Qty: 90 1RF Dulera 200-5 mcg/actuation HFA aerosol inhaler 2 puff inhalation BID lorazepam 0.5 mg tablet 0.5 mg PO DAILY PRN ipratropium-albuterol 18-103 mcg/actuation aerosol inhalation cholecalciferol (vitamin D3) 25 mcg (1,000 unit) capsule 25 mcg PO DAILY cyanocobalamin (vitamin B-12) 1,000 mcg capsule 1,000 mcg PO DAILY metformin 500 mg tablet 500 mg PO BID sertraline 100 mg tablet 100 mg PO DAILY trazodone 100 mg tablet 100 mg PO BEDTIME PRN All Day Allergy (cetirizine) 10 mg capsule 10 mg PO DAILY Interventions: ED Discharge Assessment Last Done: 04/01/24 22:54 Discharge Date/Time: 04/01/24 22:55 Print Language: Swedish
[2024-04-01 16:49] LABS: MANUAL DIFF FLAG NO
[2024-04-01 16:56] LABS: Prothrombin Time 11.8 SEC (11.1-13.3)
[2024-04-01 16:57] LABS: Eosinophils Absolute Auto 0.2 X10*3/uL (0.0-0.4); Eosinophils Percent Auto 4.2 % (0-4); Hematocrit 34.5 % (37.0-47.0); Hemoglobin 12.3 g/dl (12.0-16.0); Imm Gran Abs Auto 0.01 X10*3/uL (0.00-0.03); Imm Gran Pct Auto 0.2 % (0.0-0.4); Lymphocytes Percent Auto 23.9 % (20-40); Mean Corpuscular HGB Conc 35.7 g/dl (31.0-35.0); Mean Corpuscular Hemoglobin 33.4 pg (27.0-33.0); Mean Corpuscular Volume 93.8 fL (80.0-98.0); Mean Platelet Volume 9.2 fL (9.4-12.3); Monocytes Absolute Auto 0.3 X10*3/uL (0.1-1.2); Monocytes Percent Auto 7.5 % (2-11); Neutrophils Absolute Auto 2.5 x10*3/uL (2.0-8.3); Neutrophils Percent Auto 63.2 % (45-73); Platelet Count 188 X10*3/uL (160-400); Red Blood Count 3.68 X10*6/uL (4.20-5.50); Red Cell Distribution Width 12.4 % (11.0-16.0)
[2024-04-01 17:09] LABS: Alanine Aminotransferase 26 U/L (0-31); Albumin Level 4.3 g/dL (3.5-5.0); Alkaline Phosphatase 66 U/L (39-117); Anion Gap 13 (12-20); Aspartate Amino Transferase 22 U/L (5-31); Bilirubin Total 0.4 mg/dL (0.0-1.0); Blood Urea Nitrogen 10 mg/dL (9-16); Calcium 10.3 mg/dL (8.4-10.2); Carbon Dioxide 28 mmol/L (22-29); Chloride 101 mmol/L (96-108); Creatinine Clr Calc Pharmacy 62.8; Estimated Glomerular Filt Rate > 60; Glucose Random 177 mg/dL (60-115); Potassium 5.1 mmol/L (3.3-5.1); Sodium 137 mmol/L (135-145)
[2024-04-01 17:14] LABS: B Type Natriuretic Peptide 31 pg/mL (<100)
[2024-04-01 17:17] LABS: Troponin-I High Sensitivity < 2.7 ng/L (<3.5-17.0)
[2024-04-01 20:41] VITALS: BP 130/65; PULSE 61; RESP 18; TEMP 36.4; O2SAT 98
[2024-04-01 21:01] LABS: Appearance Urine Clear; Color Urine Yellow; Glucose Urine UA Negative (Negative); Leukocyte Esterase Urine Negative (Negative); Nitrite Urine Negative (Negative); PH 7.5 (5.0-9.0); Specific Gravity - Urine <= 1.005 (1.005-1.025); Urine Blood Negative (Negative); Urine Ketones Negative (Negative); Urine Protein Negative (Neg-Trace)
[2024-04-01 21:26] LABS: Troponin-I High Sensitivity < 2.7 ng/L (<3.5-17.0)
--- NOTE | 2024-04-01 22:31 | MHC.EDTECH ---
Patient ambulated to the bathroom with a steady gait.
[2024-04-01 22:54] VITALS: BP 132/66; PULSE 69; RESP 16; TEMP 36.4; O2SAT 98
== END 2024-04-01 22:55 | disposition home or self-care (01) ==
PROVIDERS: Physician Assistant; Emergency Provider Internal Medicine
DX: I48.0 Paroxysmal atrial fibrillation (principal); I49.9 Cardiac arrhythmia, unspecified; R06.02 Shortness of breath; R00.2 Palpitations; R07.81 Pleurodynia; Z79.899 Other long term (current) drug therapy; Z79.01 Long term (current) use of anticoagulants; Z87.891 Personal history of nicotine dependence
CPT/HCPCS: 36415; 80053; 81003; 83735; 83880; 84484; 85025; 85610; 93005; 99283; 99285

== ENCOUNTER 2024-07-21 09:19 | Outpatient (AMB) | payer MEDICARE, SELFPAY ==
[2024-07-21 09:26] VITALS: BP 102/60; PULSE 75; O2SAT 96; BMI 25.7
--- NOTE | 2024-07-21 09:26 | MHC.OFFVIS ---
Vital Signs 07/21/24 09:26 Height 5 ft 1 in Weight 136 lb 0.69 oz BMI 25.7 BP 102/60 Blood Pressure Location Lt brachial Position Sitting Pulse 75 Pulse Source Pulse Oximeter Pulse Oximetry (%) 96 Oxygen Delivery Method Room Air Intake Visit Reasons: Shortness of breath Intake Note: pt is here for follow up and states she is slightly congested. 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 Allergies hydromorphone [From Dilaudid] Adverse Reaction (Verified 07/21/24 09:48) Itching Medication List - Last Reconciled 07/21/24 by Sharyn Titus MD apixaban (Eliquis) 5 mg PO BID cetirizine (All Day Allergy (cetirizine)) 10 mg PO DAILY cholecalciferol (vitamin D3) 25 mcg PO DAILY cyanocobalamin (vitamin B-12) 1,000 mcg PO DAILY diltiazem HCl ER 240 mg PO QAM ipratropium-albuterol 18-103 mcg/actuation sprays inhalation lorazepam 0.5 mg PO DAILY PRN mometasone-formoterol 200-5 mcg/actuation (Dulera) 2 puffs inhalation BID montelukast (Singulair) 10 mg PO DAILY 30 days sertraline 100 mg PO DAILY trazodone 100 mg PO BEDTIME PRN Do you need a note to return to daycare/school/sports/work: No HPI HPI Shortness of breath: Details: 74 years old female is here for follow-up for her asthma/COPD. As far as asthma is concerned it stays under control. Her chief complaint is ongoing nasal and sinus congestion, with sometimes blocking of the ears( eustachian catarrh ) She has lifelong history of upper airways allergy. She has had immunotherapy for 2 or 3 years at a time at least twice without much improvement. In the past she has used Singulair 10 mg a day , but not for past few years. She uses Benadryl 25 mg up to 2 capsules a day, She has minimal degree of shortness of breath on exertion, intermittent cough without much expectoration, not much wheezing. She has had no fever chills or change in the color of mucus. FORMERLY [facility], 1928–1983 Medical History (Updated 07/21/24 @ 09:58 by Sharyn Titus MD) Allergic rhinitis Somnolence, daytime MARITZA (obstructive sleep apnea) CAD (coronary artery disease) Severe asthma Diabetes Paroxysmal atrial fibrillation Left ankle injury Surgical History History of section History of tubal ligation H/O right knee surgery Social History Alcohol intake: never Patient Tobacco Use Status: Former Tobacco user Review of Systems Const All systems reviewed & are unremarkable except as noted in HPI and below Eyes Reports no additional complaints ENT Reports no additional complaints, Denies dizziness and Reports nasal congestion (Mild off and) Card Denies syncope, Denies irregular heart rhythm and Denies leg edema Resp Reports as per HPI GI Reports heartburn (History of GERD symptoms being treated) Reports no additional complaints Musc Reports no additional complaints Skin/Breast Reports system reviewed and no additional complaints, except as documented Neuro Denies dizziness and Denies syncope Psych Reports anxiety and Reports depression Endo Reports no additional complaints Hernan/Lymph Reports no additional complaints Aller/Immun Reports no additional complaints Physical Exam Const General: healthy appearing, comfortable, no acute distress, alert and awake Orientation/consciousness: patient oriented x3 HEENT Head: Yes normal to inspection General nose exam: No nasal polyps present and No nasal discharge present Face and sinus: Yes sinuses nontender Mouth: oropharynx normal (Mallampati class 2) Throat: Yes posterior oropharynx normal Eyes General: appearance normal, both eyes and all related structures Neck Other: Neck circumference 14-1/2 inch Neck: Yes normal visual inspection, Yes no lymphadenopathy, Yes trachea midline and Yes no JVD Thyroid: Thyroid normal Chest Chest palpation & inspection: normal inspection of the chest, normal palpation of entire chest wall and no tenderness Resp Other: Percussion note is resonant. Breath sounds are only slightly distant. No wheezes rhonchi or crepitations are heard. Cardio Palpation: normal PMI Rate: regular rate Rhythm: regular rhythm Heart sounds: no gallops and no murmurs GI Palpation (GI): Soft to palpation, nontender, No hepatosplenomegaly present and no masses Auscultation: normal bowel sounds Back/Spine/Pelvis Thoracic/Lumbar Spine: thoracic and lumbar spine normal to inspection Skin General skin exam: no rashes or lesions noted Neuro General: patient oriented x3 and no focal motor deficits Cranial nerves: Yes CN's II-XII intact bilaterally Extrem General: Yes normal to inspection, Yes no clubbing, cyanosis or edema and Yes no calf tenderness Psych Speech and movement: Normal speech and movement present Assessment & Plan Assessment & Plan (1) Severe asthma: Comment: Longstanding history of bronchial asthma, most probably allergic in nature, history of status asthmaticus a few times but many years ago. Currently seems to be well controlled. Code(s): J45.909 - Unspecified asthma, uncomplicated Category: Medical Plan: Dulera 200-5 2 puffs b.i.d.. Ipratropium-albuterol solution in the nebulizer Q 6 hours p.r.n. (2) Allergic rhinitis: Comment: Longstanding history of allergic rhinitis/sinusitis, has had nasal septoplasty in the past. Has been using antihistaminics were long-time. Code(s): J30.9 - Allergic rhinitis, unspecified Category: Medical Plan: Added montelukast 10 mg daily. Use cetirizine 10 mg once a day p.r.n.. * can not use intranasal steroids. (3) MARITZA (obstructive sleep apnea): Comment: SHE HAS PAST HISTORY OF OBSTRUCTIVE SLEEP APNEA, COULD NOT USE THE CPAP DUE TO ANXIETY AND PANIC-LIKE SYMPTOMS WITH THE MASK ON THE FACE. HAS LOST SOME WEIGHT. STILL HAS VERY POOR SLEEP , SNORING ,AND EXCESSIVE DAYTIME SLEEPINESS, Home-based sleep study on 10/15/23 was negative for sleep apnea . This may be due to weight loss. Code(s): G47.33 - Obstructive sleep apnea (adult) (pediatric) Category: Medical Plan: Patient explained about this and she does not need to use CPAP Medications: New montelukast (Singulair) 10 mg PO DAILY 30 days 30 tabs 3RF allergic rhinitis Coding Level of Care Code Est Pt Level 3 (16979) Diagnoses Severe asthma J45.909 Allergic rhinitis J30.9 MARITZA (obstructive sleep apnea) G47.33
== END 2024-07-21 09:46 | disposition home or self-care (01) ==
PROVIDERS: PCP Family Medicine; Visit Provider Internal Medicine
DX: J45.909 Unspecified asthma, uncomplicated (principal); J30.9 Allergic rhinitis, unspecified; G47.33 Obstructive sleep apnea (adult) (pediatric)
CPT/HCPCS: 99213

== ENCOUNTER → 2024-07-21 09:19 | Outpatient (BNVA) | payer OTHER, SELFPAY | PROVIDERS: PCP Family Medicine; Visit Provider Internal Medicine | DX: J44.89 Other specified chronic obstructive pulmonary disease (principal); J30.9 Allergic rhinitis, unspecified; G47.33 Obstructive sleep apnea (adult) (pediatric) | CPT/HCPCS: 99212 ==

== ENCOUNTER 2024-08-04 15:18 | Emergency (ER) | payer OTHER, SELFPAY ==
--- NOTE | ~2024-08-04 | XR_ITS ---
EXAMINATION: XR CHEST CLINICAL INFORMATION: shortness of breath COMPARISON: 01/29/2024 TECHNIQUE: 2 views of the chest were obtained. FINDINGS: No significant abnormality is noted involving the heart, lungs, mediastinum, bony thorax or soft tissues. XR/XR chest 2V IMPRESSION: No acute disease or significant interval change Electronically signed by: Aftab Faria MD 08/04/2024 04:29 PM [facility]
--- NOTE | 2024-08-04 15:25 | ECG_ITS ---
Test Reason : CHEST PAIN Blood Pressure : / mmHG Vent. Rate : 074 BPM Atrial Rate : 074 BPM P-R Int : 162 ms QRS Dur : 102 ms QT Int : 350 ms P-R-T Axes : 054 -28 041 degrees QTc Int : 388 ms Normal sinus rhythm Septal infarct (cited on or before 12-DEC-2017) Abnormal ECG When compared with ECG of 01-APR-2024 16:20, No significant change was found Referred By: Generic ED Physician Electronically Signed By:CARLOS PEACOCK
[2024-08-04 15:34] VITALS: BP 118/57; PULSE 82; RESP 18; TEMP 36.6; O2SAT 98; BMI 26.1
--- NOTE | 2024-08-04 15:41 | ED_ITS ---
HPI - General Adult General Chief complaint: Upper Respiratory Symptoms Stated complaint: Chest tightness, SOB Time Seen by Provider: 08/04/24 18:22 Source: patient, RN notes reviewed and old records reviewed Mode of arrival: ambulatory Limitations: no limitations History of Present Illness ED Provider: Jasmin HPI narrative: 74-year-old female with past medical history significant for AFib on Eliquis, asthma, diabetes presents for evaluation of shortness of breath Patient reports a 2 day history of chest tightness with wheezing and increased shortness of breath She denies any fevers, chills but endorses a dry cough. She reports she has previously had uncontrolled asthma and has been intubated twice, she had been on prednisone almost daily She has been much better for the last several years and is no longer on any steroids. She has inhalers and nebulizer at home She is concerned that she has ?pneumonia or bronchitis. ? Related Data Home Medications ?Medication ?Instructions ?Recorded ?Confirmed cholecalciferol (vitamin D3) 25 25 mcg PO DAILY 04/09/23 01/07/24 mcg (1,000 unit) capsule cyanocobalamin (vitamin B-12) 1,000 mcg PO DAILY 04/09/23 01/07/24 1,000 mcg capsule ipratropium 18 mcg-albuterol 103 spray inhalation 04/09/23 01/07/24 mcg/actuation aerosol inhaler lorazepam 0.5 mg tablet 0.5 mg PO DAILY PRN 04/09/23 01/07/24 sertraline 100 mg tablet 100 mg PO DAILY 04/09/23 01/07/24 trazodone 100 mg tablet 100 mg PO BEDTIME PRN 04/09/23 01/07/24 cetirizine 10 mg capsule (All Day 10 mg PO DAILY 04/30/23 01/07/24 Allergy (cetirizine)) mometasone-formoterol HFA 200 2 puff inhalation BID 09/17/23 01/07/24 mcg-5 mcg/actuation aerosol inhaler (Dulera) Previous Rx's ?Medication ?Instructions ?Recorded apixaban 5 mg tablet (Eliquis) 5 mg PO BID #60 tabs 06/25/23 diltiazem HCl 240 mg capsule,24 240 mg PO QAM #90 caps 06/25/23 hr,extended release montelukast 10 mg tablet 10 mg PO DAILY allergic rhinitis 07/21/24 (Singulair) 30 days #30 tabs Allergies Allergy/AdvReac Type Severity Reaction Status Date / Time hydromorphone [From Dilaudid] AdvReac Itching Verified 08/04/24 15:37 Review of Systems 2 Constitutional: Constitutional: Denies body ache(s), Denies chills, Denies fever(s) and Denies headache(s) Eyes: Eyes: Denies blurry vision ENT: Denies vertigo, Denies dizziness and Denies headache(s) Cardiovascular: Cardiovascular: Reports chest pain and Reports dyspnea Respiratory: Respiratory: Reports cough, Reports dyspnea and Reports wheezing Gastrointestinal: Gastrointestinal: Denies abdominal pain, Denies nausea and Denies vomiting Musculoskeletal: Musculoskeletal: Denies back pain Integumentary/Breasts: Skin/Breast: Denies rash Neurologic: Denies vertigo, Denies dizziness and Denies headache(s) Allergic/Immunologic: Allergic/Immunologic: Reports wheezing PMFSH Past Medical History Medical History (Updated 08/04/24 @ 18:23 by Akira Castellanos) Allergic rhinitis Somnolence, daytime MARITZA (obstructive sleep apnea) CAD (coronary artery disease) Severe asthma Diabetes Paroxysmal atrial fibrillation Left ankle injury Surgical History History of section History of tubal ligation H/O right knee surgery Social History Social History Alcohol intake: never Patient Tobacco Use Status: Former Tobacco user Advance Directives: No Advance Directives Information Provided: Yes Do you have a plan to hurt others: No Plan Physical Exam ED Vital Signs: Vital Signs - 24 hr 08/04/24 15:34 08/04/24 18:20 Temperature 98 F 98 F Pulse Rate 82 78 Respiratory Rate 18 19 Blood Pressure 118/57 L 119/68 Pulse Oximetry 98 98 Oxygen Delivery Method Room Air Room Air BMI result Body Mass Index 26.1 Const General: healthy appearing, comfortable, no acute distress, alert and awake Nutritional Appearance: well nourished Orientation/consciousness: patient oriented x3 HENMT Head: Yes normocephalic and Yes atraumatic Eyes Eyelids: Yes eyelids normal Conjunctivae: conjunctivae normal Sclerae: sclerae normal Corneas: corneas normal Pupils: Equal, round and reactive pupils present EOM: EOMs intact bilaterally Neck Neck: Yes full ROM Resp Other: Diffuse faint expiratory wheeze Effort & Inspection: normal respiratory effort, able to speak in complete sentences and not labored Auscultation: not clear to auscultation bilaterally Cardio Rate: regular rate Rhythm: regular rhythm GI Inspection: No distended Palpation (GI): Soft to palpation, not firm, nontender, no guarding and not rigid Skin General skin exam: elasticity normal Neuro General: patient oriented x3 Cranial nerves: Yes Equal, round and reactive pupils present and Yes Bilaterally intact EOM present Cognition (Neuro): normal cognition Extrem Other: Moving all extremities well without any obvious deformities Course Course Course Narrative: RME, this is a rapid medical exam performed by Bradford Castellanos please refer to primary provider for complete H&P- 74-year-old female with past medical history significant for asthma presents for cough and shortness of breath over the last few days. Denies any fevers. She was well-appearing. Few scattered wheezes on exam. Plan for chest x-ray, viral swabs from Medical Decision Making Medical Decision Making [facility] Narrative: 74-year-old female presents for evaluation of shortness of breath, chest tightness. She has a history of asthma, has faint wheezing on exam. She had a chest x-ray that does not show any evidence of pneumonia. She is not febrile, she has no leukocytosis, viral swabs negative. The patient did have an EKG due to her chest tightness that does not show any acute ischemic changes. The patient will be discharged with a diagnosis of mild asthma exacerbation. I discussed prednisone treatment with the patient. She would prefer not to be started on prednisone as she does not like that it increases her glucose at home. I do not feel that she absolutely needs it as she only has faint wheezing and has normal vital signs. She was given return precautions Differential Diagnosis Differential Diagnoses: The differential diagnosis associated with the presentation includes Acute asthma exacerbation Bronchitis Pneumonia Influenza COVID-19 Lab Data [facility] Lab Attestation statement: I reviewed the patient's lab results. No leukocytosis or anemia. No significant electrolyte abnormalities warranting intervention 08/04/24 16:35 08/04/24 16:35 Labs: Lab Results 08/04/24 Range/Units 16:35 WBC 5.2 (4.8-10.8) X10*3/uL RBC 4.03 L (4.20-5.50) X10*6/uL Hgb 13.0 (12.0-16.0) g/dl Hct 37.3 (37.0-47.0) % MCV 92.6 (80.0-98.0) fL MCH 32.3 (27.0-33.0) pg MCHC 34.9 (31.0-35.0) g/dl RDW 11.8 (11.0-16.0) % Plt Count 242 D (160-400) X10*3/uL MPV 9.0 L (9.4-12.3) fL Immature Gran % (Auto) 0.4 (0.0-0.4) % Neut % (Auto) 62.8 (45-73) % Lymph % (Auto) 24.3 (20-40) % Darke % (Auto) 7.9 (2-11) % Eos % (Auto) 3.6 (0-4) % Baso % (Auto) 1.0 (0-2) % Lymph # (Auto) 1.3 (1.2-4.9) X10*3/uL Darke # (Auto) 0.4 (0.1-1.2) X10*3/uL Eos # (Auto) 0.2 (0.0-0.4) X10*3/uL Baso # (Auto) 0.1 (0.0-0.2) X10*3/uL Abs Immat Gran (auto) 0.02 (0.00-0.03) X10*3/uL Absolute Neuts (auto) 3.3 (2.0-8.3) x10*3/uL Absolute Nucleated RBC 0.000 (0.0-0.012) X10*3/uL Nucleated RBC % (auto) 0.0 (0.0-0.2) /100WBC Sodium 139 (135-145) mmol/L Potassium 5.1 (3.3-5.1) mmol/L Chloride 101 (96-108) mmol/L Carbon Dioxide 31 H (22-29) mmol/L Anion Gap 12 (12-20) BUN 17 H (9-16) mg/dL Creatinine 0.69 (0.5-1.4) mg/dL Estim Creat Clear Calc 62.5 Estimated GFR > 60 Random Glucose 115 (60-115) mg/dL Calcium 10.2 (8.4-10.2) mg/dL Total Bilirubin 0.2 (0.0-1.0) mg/dL AST 22 (5-31) U/L ALT 24 (0-31) U/L Alkaline Phosphatase 79 (39-117) U/L Total Protein 7.5 (6.5-8.0) g/dL Albumin 4.3 (3.5-5.0) g/dL Lipase 23 (8-78) U/L Influenza Type A (PCR) NEGATIVE (Negative) Influenza Type B (PCR) NEGATIVE (Negative) RSV RNA Qual (PCR) NEGATIVE (Negative) SARS-CoV-2 RNA (RT-PCR) NEGATIVE (Negative) Independent Interpretation I performed an independent interpretation of an: EKG (Normal sinus rhythm with a rate of [address] segment elevation or depressions. Nondiagnostic EKG) and Plain X-Ray (No focal consolidation or pleural effusions) Radiology Impression Discussion of test interpretation with radiology: I have reviewed the radiologist's reading. Radiologist Impression: FINDINGS: No significant abnormality is noted involving the heart, lungs, mediastinum, bony thorax or soft tissues. XR/XR chest 2V IMPRESSION: No acute disease or significant interval change Electronically signed by: Aftab Faria MD 08/04/2024 04:29 [facility] Plan Discharge Clinical Impression: Mild asthma exacerbation Patient Disposition: Home, Self-Care Instructions: Asthma (ED) Additional Instructions: Continue to use your inhaler and nebulizers as prescribed. You may use an [id number] decongestant as well. Your chest x-ray does not show bronchitis or pneumonia. Follow-up with your primary doctor, return for new or worsening symptoms Prescriptions: No Action Eliquis 5 mg tablet 5 mg PO BID Qty: 60 1RF diltiazem HCl 240 mg capsule,extended release 24 hr 240 mg PO QAM Qty: 90 1RF Dulera 200-5 mcg/actuation HFA aerosol inhaler 2 puff inhalation BID lorazepam 0.5 mg tablet 0.5 mg PO DAILY PRN ipratropium-albuterol 18-103 mcg/actuation aerosol inhalation cholecalciferol (vitamin D3) 25 mcg (1,000 unit) capsule 25 mcg PO DAILY cyanocobalamin (vitamin B-12) 1,000 mcg capsule 1,000 mcg PO DAILY sertraline 100 mg tablet 100 mg PO DAILY trazodone 100 mg tablet 100 mg PO BEDTIME PRN All Day Allergy (cetirizine) 10 mg capsule 10 mg PO DAILY montelukast [Singulair] 10 mg tablet 10 mg PO DAILY 30 Days Qty: 30 3RF Print Language: Georgian
--- OUTSIDE RECORDS SUMMARY | 2024-08-04 16:40 | XMS_ITS | Encounter Summary ---
Author Name [facility] [place] [facility] [place] [facility] [place] Address [address] [place] [address] Care Team Providers Care [employer] Name Role Phone CADEN FELIZ Primary Care Provider Unavailabl e Insurance Providers: All historical and current Section Date Range: From patient's date of to the date document was created. This section includes the names of all active insurance providers for the patient. Insurance Provider Type of Coverage Plan Name Start of Policy Coverage End of Policy Coverage Group Number Member ID Insurance Provider's Telephone Number Policy Shelton's Name Patient's Relationship to Policy Sheltno AARP MEDICARE SUPPLEMEN MARCIA PLAN I Aug 19, 2019 PLAN I [id number] MEEK,GR ICEL PATIENT A[employer] HE[employer]CARE OPTIONS MEDICARE SUPPLEMEN MARCIA PLANM Y Aug 19, 2019 PLANMY [id number] MEEK,GR ICEL PATIENT A[employer] HEALTHCARE OPTIONS MEDICARE SUPPLEMEN MARCIA AARP MEDIC ARE SUPPL Aug 19, 2019 PLAN MY [id number] MEEK,GR ICEL PATIENT AARP INS MEDICARE SUPPLEMEN MARCIA PLANM Y Aug 19, 2019 PLANMY [id number] [phone] MEEK,GR ICEL PATIENT AARP MED SUPP MEDICARE SUPPLEMEN MARCIA Jul 19, 2010 PLANMY [id number] [phone] MEEK,GR ICEL PATIENT MEDICARE (WNR) MEDICARE () PART B Aug 19, 2008 PART B [id number] MEEK,GR ICEL PATIENT MEDICARE (WNR) MEDICARE () PART B Aug 19, 2008 PART B [id number] [phone] MEEK,GR ICEL PATIENT MEDICARE (WNR) MEDICARE () PART B Aug 19, 2008 PART B [id number] MEEK,GR ICEL PATIENT MEDICARE (WNR) MEDICARE () PART B Aug 19, 2008 PART B [id number] MEEK,GR ICEL PATIENT MEDICARE (WNR) MEDICARE () PART B Aug 19, 2008 PART B [id number] MEEK,GR ICEL PATIENT MEDICARE (WNR) MEDICARE () PART B Aug 19, 2008 PART B [id number] [phone] MEEK,GR ICEL PATIENT MEDICARE (WNR) MEDICARE () PART B Aug 19, 2008 PART B [id number] [phone] MEEK,GR ICEL PATIENT MEDICARE (WNR) MEDICARE () PART A December 18, 2003 PART A [id number] [phone] MEEK,GR ICEL PATIENT MEDICARE (WNR) MEDICARE () PART A December 18, 2003 PART A [id number] MEEK,GR ICEL PATIENT MEDICARE (WNR) MEDICARE () PART A December 18, 2003 PART A [id number] [phone] MEEK,GR ICEL PATIENT MEDICARE (WNR) MEDICARE () PART A December 18, 2003 PART A [id number] [phone] MEEK,GR ICEL PATIENT MEDICARE (WNR) MEDICARE () PART A December 18, 2003 PART A [id number] [phone] MEEK,GR ICEL PATIENT MEDICARE (WNR) MEDICARE () PART A December 18, 2003 PART A [id number] [phone] SABINE MEEK PATIENT MEDICARE (WNR) MEDICARE (M) PART A December 18, 2003 PART A [id number] SABINE MEEK PATIENT Selected Encounter This section includes the information on record at [place] for the Encounter. 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 Date/Time Primary/Secondary Diagnosis Diagnosis Name Provider Source Dec 05, 2023 10:02 AM PRIMARY Other low back pain MARIAN TREVIÑO [place] [facility] [place] [facility] Plan of Treatment: Future Appointments (+ 6 months) and Future Tests (+/- 45 days) The Plan of Treatment section includes future care activities for the [facility] [place] [facility] This section includes future appointments and future orders which are active, pending or scheduled. Future Appointments This section includes appointments that were scheduled to occur 6 months from the date of the Encounter, up to a maximum of 20 appointments. The data comes from all [place] treatment facilities. Appointment Date/Time Appointment Type Appointme nt Facility Name Dec 09, 2023 09:30 AM AMBULATORY - MEDICINE [place] [facility] [place] [facility] Dec 09, 2023 11:30 AM AMBULATORY - MEDICINE [place] [facility] [place] [facility] Dec 12, 2023 11:30 AM AMBULATORY - NONE [facility] [place] [facility] Dec 16, 2023 01:00 PM AMBULATORY - PSYCHIATRY [facility] [place] [facility] December 23, 2023 01:00 PM AMBULATORY - PSYCHIATRY [facility] [place] [facility] December 31, 2023 09:00 AM AMBULATORY - MEDICINE [place] [facility] [place] [facility] January 06, 2024 11:00 AM AMBULATORY - PSYCHIATRY [facility] [place] [facility] January 06, 2024 01:00 PM AMBULATORY - PSYCHIATRY [facility] [place] [facility] January 07, 2024 08:00 AM [facility] [place] [facility] January 09, 2024 09:00 AM AMBULAT[facility] [place] [facility] January 14, 2024 09:30 AM [facility]INE [facility] [place] [facility] January 16, 2024 10:30 AM AMBULATORY - NONE [facility] [place] [facility] Jan 20, 2024 01:00 PM AMBULATORY - PS[facility]CHIATRY [facility] [place] [facility] Jan 22, 2024 03:00 PM AMBULATORY - NONE [facility] [place] [facility] Jan 27, 2024 01:00 PM AMBULATORY - PS[facility]IATRY [facility] [place] [facility] Feb 03, 2024 01:00 PM AMBULATORY - PS[facility]ATRY [facility] [place] [facility] Feb 10, 2024 01:00 PM AMBULATORY - PS[facility]IATRY [facility] [place] [facility] Feb 10, 2024 02:00 PM AMBULATORY - NONE [facility] [place] [facility] Feb 17, 2024 12:30 PM AMBULATORY - NONE [facility] [place] [facility] Feb 17, 2024 01:00 PM AMBULATORY - PSYCHIATRY [facility] [place] [facility] Lab Results: +/- 30 days of the encounter This section includes the Chemistry and Hematology Lab Results on record with [facility] for the patient. Radiology Reports and Pathology Reports are provided separately, in subsequent sections. Lab Results This section contains the Chemistry/Hematology Results that were resulted 30 days before or 30 daysafter the date of the Encounter. Date/Time Source Result Type Result - Unit Interpretation Reference Range Comment Nov 15, 2023 10:10 AM [place] [facility] [place] [facility] VITAMIN B12 Specimen Type: SERUM No comment entered. Ordering Provider: WALE FELIZ Report Released Date/Time: Nov 15, 2023 09:56 AM Reporting Lab: [facility] [place] [facility] [address] [facility] [address] Performing Lab: [place] [facility] [place] [address] [address] VITAMIN B12 806 pg/mL 200-900 Nov 15, 2023 10:10 AM [facility] MICROALBUMIN CREATININE RATIO PANEL Specimen Type: URINE No comment entered. Ordering Provider: WALE FELIZ Report Released Date/Time: Nov 15, 2023 09:56 AM Reporting Lab: [facility] [address] [facility] [address] Performing Lab: [facility] [address] [facility] [address] MICROALBUMIN/C REATININE RATIO canc mg/g 0-29.9 MICROALBUMIN,Q UANTITATIVE < 0.5 mg/dL RR UNAVAIL CREATININE URINE 34.74 mg/dL Nov 15, 2023 10:10 AM [facility] HEMOGLOBIN A1C PANEL Specimen Type: BLOOD No comment entered. Ordering Provider: WALE FELIZ Report Released Date/Time: Nov 15, 2023 09:56 AM Reporting Lab: [facility] [address] Performing Lab: [facility] [address] HEMOGLOBIN A1C 6.1 H 4.0-5.6 Nov 15, 2023 10:10 AM [facility] VITAMIN D (25-OH) Specimen Type: SERUM No comment entered. Ordering Provider: WALE FELIZ Report Released Date/Time: Nov 15, 2023 09:56 AM Reporting Lab: [facility] [address] Performing Lab: [facility] [address] VITAMIN D (25-OH) 54 ng/mL H 20-50 Nov 15, 2023 10:10 AM [facility] BASIC METABOLIC PANEL (non-fasting) Specimen Type: SERUM No comment entered. Ordering Provider: WALE FELIZ Report Released Date/Time: Nov 15, 2023 09:56 AM Reporting Lab: [facility] [address] Performing Lab: [facility] [address] [address] UREA NITROGEN 6 mg/dL L 7-25 GLUCOSE 168 mg/dL H 65-100 SODIUM 134 mmol/L L 135-145 POTASSIUM 4.3 mmol/L 3.5-5.0 CHLORIDE 99 mmol/L L 100-110 CO2 25 meq/L 20-30 CREATININE, Serum 0.66 mg/dL 0.50-1.40 eGFR(CKD-EPI 2020) >90 mL/min >60 Social History: Smoking Status (Most current) and Tobacco Use (All prior to encounter date) This section includes the most current, and the historical, smoking and tobacco- related health factors from the [place] facility where the Encounter took place. Current Smoking Status This section includes the most current smoking, or tobacco-related health factor, from the [place] facility where the Encounter took place. Date/Time Current Smoking Status Comment [facility] Feb 08, 2023 10:00 AM VA-TOBACCO FORMER USER [place] [facility] [place] [facility] Tobacco Use History This section includes a history of the smoking, or tobacco-related health factors, that were collected on or before the date of the Encounter. The data comes from the [place] facility where the Encounter took place. Date/Time Smoking Status/Tobac co Use Comment Facility Feb 08, 2023 10:00 AM VA-TOBACCO QUIT 15 YRS OR MORE [facility] [place] [facility] Mar 06, 2022 02:30 PM VA-TOBACCO FORMER USER [facility] [place] [facility] Mar 06, 2022 02:30 PM VA-TOBACCO QUIT 15 YRS OR MORE [facility] [place] [facility] Apr 04, 2021 10:28 AM VA-TOBACCO NEVER USED [facility] [place] [facility] May 03, 2020 02:00 PM VA-TOBACCO NEVER USED [facility] [place] [facility] Feb 25, 2019 08:14 AM VA-TOBACCO FORMER USER [facility] [place] [facility] Feb 25, 2019 08:14 AM VA-TOBACCO QUIT 5 TO < 15 YRS [facility] [place] [facility] Apr 04, 2018 10:41 AM QUIT TOBACCO USE 1-7 YEARS AGO [facility] [place] [facility] Oct 28, 2017 10:18 AM QUIT TOBACCO USE 1-7 YEARS AGO [facility] [place] [facility] Jan 22, 2017 01:08 PM QUIT TOBACCO USE 1-7 YEARS AGO [facility] [place] [facility] Jul 18, 2016 01:34 PM QUIT TOBACCO USE 1-7 YEARS AGO [facility] [place] [facility] January 10, 2016 10:32 AM QUIT TOBACCO USE 1-7 YEARS AGO [facility] [place] [facility] Oct 13, 2015 11:05 AM QUIT TOBACCO USE 1-7 YEARS AGO [facility] [place] [facility] Oct 19, 2014 01:53 PM QUIT TOBACCO USE > 7 YEARS AGO [facility] [place] [facility] January 02, 2014 01:30 AM QUIT TOBACCO USE IN PAST YEAR [facility] [place] [facility] Jun 18, 2013 09:00 AM CURRENT SMOKER 6 cigarettes qd [facility] [place] [facility] Jun 18, 2013 09:00 AM V1-PT DECLINES TOBACCO CESSATION MEDS [facility] [place] [facility] Jun 18, 2013 09:00 AM V1-PT NOT INTERESTED IN QUIT TOBACCO USE [facility] [place] [facility] December 24, 2012 10:51 AM V1-PT DECLINES REF TO TOBACCO CESS PRGM [facility] [place] [facility] December 24, 2012 10:51 AM V1-PT DECLINES TOBACCO CESSATION MEDS [facility] [place] [facility] December 24, 2012 10:51 AM V1-PT THINKING ABOUT QUIT TOBACCO USE [facility] [place] [facility] Jul 15, 2012 10:19 AM QUIT TOBACCO USE IN PAST YEAR [facility] [place] [facility] Jan 25, 2012 05:02 PM QUIT TOBACCO USE IN PAST YEAR [facility] [place] [facility] Sep 28, 2011 10:09 AM CURRENT SMOKER 5 cigarettes a day [facility] [place] [facility] Jun 15, 2011 02:23 PM V1-PT DECLINES REF TO TOBACCO CESS PRGM [facility] [place] [facility] Jun 15, 2011 02:23 PM V1-PT READY TO QUIT TOBACCO USE [facility] [place] [facility] Apr 13, 2011 10:31 AM V1-PT DECLINES REF TO TOBACCO CESS PRGM [facility] [place] [facility] Apr 13, 2011 10:31 AM V1-PT RECEIVES TOBACCO CESS MEDS OUTSIDE [facility] Apr 13, 2011 10:31 AM V1-PT THINKING ABOUT QUIT TOBACCO USE [facility] Oct 16, 2010 08:52 AM QUIT TOBACCO USE IN PAST YEAR [facility] May 12, 2010 02:08 PM V1-PT DECLINES REF TO TOBACCO CESS PRGM [facility] May 12, 2010 02:08 PM V1-PT READY TO QUIT TOBACCO USE [facility] May 12, 2010 12:45 PM CURRENT SMOKER 3 cigarettes a day [facility] Radiology Reports: +/- 30 days of the encounter Radiology Reports For cases when an order for radiology services may have been completed prior to the date of the Encounter, the report list includes the Radiology Reports that were completed up to 30 days before dateof the Encounter. For cases when an order for radiology services may have been completed after the date of the Encounter, the report list also includes the Radiology Reports that were completed up to30 days after date of the Encounter. The data comes from all [facility] facilities. Date/Time Radiology Report Provider Source Nov 15, 2023 10:22 AM ELBOW 3 OR MORE VIEWS(LEFT): PEBBLES MEEK [id number] -[id number] F Exm Date: NOV 15, 2023@10:22 Req Phys: CADEN FELIZ Loc: CWM/NO/PACT 6 WH (Req'g Loc) Img Loc: [facility] 1 Service: Unknown (Case [id number] COMPLETE) ELBOW 3 OR MORE VIEWS(LEFT) (RAD Detailed) CPT:18101 Reason for Study: pain and swelling left elbow Clinical History: 73yo woman with h/o traumatic injury in 20s, Report Status: Verified Date Reported: NOV 15, 2023 Date Verified: NOV 15, 2023 Infrastructure Consultant E-Sig:/ES/NEMO RODRIGUEZ JR Report: Study: AP, lateral, and oblique views of the left elbow. COMPARISON: None. FINDINGS: The soft tissues appear normal. No elbow joint effusion is identified. The bony mineralization appears normal. Mild degenerative osteoarthritic versus posttraumatic arthritic changes present to the ulnar/medial aspect of the elbow joint space with small degenerative subchondral cyst within the coronoid process of the ulna resulting. No acute bony abnormality is seen. Impression: No acute bony abnormality, as described above. Primary Diagnostic Code: No immediate attention required Primary Interpreting Staff: NEMO RODRIGUEZ JR, Radiologist (Infrastructure Consultant) /NEMO WEISS JR [facility] Encounter Notes: All associated encounter notes This section contains the clinical notes associated to the Encounter. 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: [employer] Connected Disabilities with % Eligibility: Active Problem Long-term current use of anticoagul 06/27/2023 CALI NANCE Gastro-esophageal reflux disease wi 01/11/2023 CADEN FELIZ Migraine G43.109 04/09/2022 JONES HUOSE Vertigo H81.4 04/09/2022 JONES HOUSE NAFLD - Nonalcoholic fatty liver di 12/29/2021 CADEN FELIZ Vitamin D deficiency E55.9 08/16/2020 CADEN FELIZ 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 12/21/2019 MALINOFSKYIMAN Urge incontinence of urine (SNOMED 01/12/2020 CADEN FELIZ Osteopenia M85.9 07/18/2016 CADEN FELIZ Sciatica M54.41 09/14/2015 CADEN FELIZ Obesity E66.09 01/12/2016 CADEN FELIZ Chronic obstructive lung disease (S 08/30/2015 CADEN FELIZ Diabetes mellitus (SNOMED CT 746727 07/20/2015 JENN SRIVASTAVA Restless Leg Syndrome * (ICD-9-CM 3 07/15/2012 DIPAK JOSEPH S Knee pain (SNOMED CT 1690117297) R5 03/26/2022 CADEN FELIZ Paroxysmal atrial fibrillation (SNO 08/30/2015 CADEN FELIZ Other and unspecified Sleep Apnea 7 07/21/2010 SOTOBRITNEY Chuy Hyperlipidemia (SNOMED CT 96438836) 08/30/2015 CADEN FELIZ Chronic anxiety (SNOMED CT 62134977 12/09/2020 JACQUE MISTRY Asthma (SNOMED CT 063308482) J45.99 08/25/2015 MARIUM HUERTA Chronic depression (SNOMED [place] [address] 12/09/2020 JACQUE MISTRY PTSD - Post-traumatic stress disord 12/09/2020 JACQUE MISTRY Knee Joint replacement Status (Pros 08/30/2015 AMELIA HERNANDEZ Past Surgeries:, tubal ligation, left ankle fracture-has plate and screws, R forearm for necrosis, R knee arthroplasty HX osteonecrosis - R knee; R wrist Patient [facility] [place] [facility] with report that she only has discomfort after long sitting but there is no pain. She continues to feel improvement in her low back and gluteals. NPRS 0/10 Her shoulder has also improved and patient is happy with results from PT. GOALS: incr energy to do more things such as hiking. She states that she would love to be able to go up and [place] Pertinent imaging: From chart notes 12/18/21 BOB Tilley The lumbar spine from 12/06/2021 demonstrated right L4 nerve root compression from an L3-4 asymmetric right paracentral/foraminal disc bulge. Possible impingement of the descending left S1 nerve root with a tiny superimposed L5- S1 disc protrusion. Patient denies recent fever, infections, night sweats, unexplained weight loss, bowl/bladder problems, saddle anesthesia Initial EXAM NPRS 6/10 Patient enters clinic FWB without need of assistive device without signs of acute distress, antalgia, or gait alteration Patient appears to be well nourished, is well groomed, pleasant, cooperative in NAD, gait and station unremarkable. AAOx3, speech is fluent. Rhomberg's: No sway noted Coburn's: Neg bilat General exam findings Cursory PE demonstrates no acute or emergent health conditions. No signs of acute pulmonary distress, breathing is steady and non-labored. No distal edema or signs of peripheral circulatory distress. No saddle paresthesia and no acute bowel or bladder dysfunction. Active LUMBAR ROM limited and provocative into:Flex, left lateral bending, bilat rotation Peripheral Neuro-Muscular Exam Lower Extremity Gross motor 5/5; hip flexion on left is 4/5 sensory exam is decr in left ant-lateral thigh Patellar and Achilles Reflex not obtained Bilat No ankle clonus Lumbar Orthopedic testing: Valsalva Maneuver: Neg SLR/seated slump pos Kemps pos Prone knee bending neg Sacral base push neg SI provocation testing NEG Fabere's neg Direct S-I palpation pos Soft tissue palpation reveals hypertonicity and tenderness Left SI jt, iliopsoas, IT band, gluteals and left flank area, light/medium palpation of left upper/lower abdom is tender and causes pain in left low back. Motion palpation reveals intersegmental lumbar, L/S, SI jt somatic dysfunction with relative joint hypomobility. IMPRESSION: Back pain associated with, segmental jt dysfunction and hypertonicity. It is reasonable in this case to apply a conservative course of manual therapy to address myofascial and joint findings while encouraging activity and stretching specific to the patient's presentation. PLAN: Treatment #1. I explained all of this to the patient and the patient seemed to understand. Treatment options from least invasive to most with the associated risks, benefits, alternatives, and potential outcomes were discussed in detail. Potential risks associated with spinal manipulative therapy, the following were shared with the patient: Likely (transient mild post-treatment soreness); Less Likely (Bruising, sprain/strain); Rare but potentially serious (disc herniation, fracture); Extremely Rare but serious (epidural spinal hematoma, cauda equina syndrome). Informed consent obtained to provide management consisting of: ~ Lumbar F/D decompression manipulation with the intended goal of the reduction of LBP and limitations related to LBP through the mechanical action of lumbar flexion with a gentle distractive force. ~ MFR as per palpation (10 minutes) ~ Mobilization/SMT to Cervical, Thoracic, and/or Lumbar and S-I regions in lateral decubitus posture ~ Prone or supine thoracic mobilization/SMT ~ Prone hip flexor/quadriceps stretching as per palpation ~ Supine gluteal stretching as per palpation Objectives 12/05/23: No tenderness over SI jts Restrictions L/S, SI jts Treatment: Corrective/Active CMT L/S, SI, side posture F/D 8 min, mechanical lumbar traction w flex and lateral bending. Treatment carried out today and well tolerated with relief expressed. Patient has limited ability to flex her R knee for side lying CMT. The prognosis, at this time, is fair to good. Plan: Patient agrees to self manage. Discharged by PT. She will contact this clinic if needed. Goals: met Short term goals include improvement in excess 25% on regional disability questionnaire and/or NRS over the first 3-4 treatment visits. It was explained to the patient that resolution of soft tissue complaintsthrough conservative management requires compliance with at home recommendations and avoidance of aggravating factors. Self-Care Recommendations: cange positions frequently; avoid prolonged sittint. ~Patient encouraged to engage in activities such as a walking program with established goals to reduce fear-avoidance behaviors with regard to movement,and improve overall health and fitness. emphasis placed upon function over pain with effort made each day to remain active understanding that normal daily activities may temporarily increase pain experience but are not inherently injurious and should be explored to the extent possible. ~ Activity such as Yoga encouraged to enhance relaxation, flexibility, posture, core stability, balance, and pain modulation. Visit 8 F/U NA Seek urgent care as needed. CMT: chiropractic manipulative therapy SMT: Spinal Manipulative Therapy F/D: Flexion Distraction MFR: Myofascial Release S-I: Sacroiliac MFTP: Myofascial Trigger Point NRS: Numeric Rating Scale N/T: Numbness/Tingling PIR: Post isometric relaxation /es/ MARIAN TREVI[facility]O [facility] Signed: 12/05/2023 10:03 MARIAN TREVIÑO [facility]L [facility]
--- OUTSIDE RECORDS SUMMARY | 2024-08-04 16:40 | XMS_ITS | Continuity of Care Document ---
Author Name [facility] Organization [facility] Care Team Providers Care Skein Drier Name Role Phone [facility] Unavailable Unavailable Problems Combined list of problems from Department of Defense and Veterans Affairs facilities. It does not include entries that were removed or entered in error. Problem Status Onset Date Problem Type Date of Resolution Comments Source ASTHMA Active Condition [facility] Asthma (SNOMED [place] 513142929) [facility] [place] [facility] Atypical Chest Pain (ICD-9-CM 786.59) Active Condition [facility] Chest Pain NOS Active Condition [facility] CHR OBS ASTHMA W/O STAT ASTH Active Condition [facility] Chronic anxiety (SNOMED CT 838720377) Active Condition Sep 18, 2016 Entered By: LYNNETTE LENNON Comment: with panic attacks, currently well controlled [facility] [place] [facility] Chronic depression (SNOMED CT 416139239) Active Condition Mar 10, 2012 Entered By: LYNNETTE LENNON Comment: reviewed [facility] [place] [facility] Chronic obstructive lung disease (SNOMED CT 04734797) [facility] [place] [facility] Chronic rhinitis (ICD-9-CM 472.0) Active Condition [facility] Common Migraine without Mention of Intractable Migraine (ICD-9-CM 346.10) Active Condition [facility] Degeneration of lumbar or lumbosacral intervertebral disc (ICD-9-CM 722.52) Active Condition [facility] Depressive Disorder NOS * (ICD-9-CM 300.4/311.) Active Condition [facility] Diabetes mellitus (SNOMED CT 01816144) Active Condition [facility] [place] [facility] Diabetes Mellitus Type II or unspecified * (ICD-9-CM 250.00) Active Condition [facility] DISORDER OF THYROID NOS Active Condition [facility] Dyslipidemia (ICD-9-CM 272.4) Active Condition [facility] Exposure to potentially hazardous substance ([facility] 433271819273420) Active Condition Nov 26 4 Entered By: JERSEY GAYTAN Comment: Entered automatically through [employer] Problem List documentation program [facility] Gastro-esophageal reflux disease with esophagitis Active Condition [facility] Gastroesophageal Reflux Disorder * (ICD-9-CM 530.81) Active Condition [facility] GERD * (ICD-9-CM 530.81) [facility] Hyperlipidemia (SNOMED CT 81688514) Active Condition [facility] 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 Condition [facility] Internal derangement of knee (ICD-9-CM 717.9) Active Condition [facility] Knee Injury * (ICD-9-CM 959.7) Active Condition [facility] Knee Joint replacement Status (Prosthetic or Artificial Device) (ICD-9-CM V43.65 Active Condition Sep 23 9 Entered By: LUTHER LARSEN JR Comment: Antibiotic prophylaxis not needed as per orthopedistDec 2009 Entered By: DIPAK JOSEPH Comment: right knee 1976Aug 30, 2015 Entered By: CADEN FELIZ Comment: Right TKR 2005 [facility] Knee pain (SNOMED CT 8339869424) Active Condition [facility] [place] [facility] Long-term current use of anticoagulant Active Condition [facility] ([facility] Migraine Active Condition [facility] NAFLD - Nonalcoholic fatty liver disease Active Condition [facility] Obesity Active Condition [facility] OBSERV-SUSPECT COND NEC Active Condition [facility] Osteopenia Active Condition [facility] Other and unspecified Sleep Apnea Active Condition Jul 21, 2010 Entered By: DIPAK JOSEPH Comment: on cpap [facility] Paroxysmal atrial fibrillation (SNOMED CT 244826020) Active Condition [facility] PTSD - Post-traumatic stress disorder (SNOMED CT 12379627) Active Condition Dec 15, 2013 Entered By: LYNNETTE LENNON Comment: reviewed [facility] Restless Leg Syndrome * (ICD-9-CM 333.94/333.99) Active Condition [facility] S/P KNEE JOINT REPLAC Active Condition [facility] Sciatica Active Condition [facility] Urge incontinence of urine (SNOMED CT 32664565) Active Condition [facility] VACCIN FOR INFLUENZA Active Condition [facility] Vertigo Active Condition [facility] Vitamin D deficiency Active Condition [facility] Wrist sprain (ICD-9-CM 842.09) Active Condition [facility] ACCRETIONS ON TEETH Inactive Condition 07/21/2010 [facility] Allergic rhinitis * (ICD-9-CM 477.9) Inactive Condition 07/21/2010 [facility] Atypical Chest Pain Inactive Condition 07/02/2017 Jul 22, 2010 Entered By: DIPAK JOSEPH Comment: cardiac cath normal, 10/[address] [facility] Breast Cancer Screening Inactive Condition 05/12/2010 [facility] Cataract, PSC/Post Subcapsular Inactive Condition 07/21/2010 Sep 09, 2006 Entered By: MYCHAL METCALF OD Comment: left eye [facility] Cataract, PSC/Post Subcapsular Inactive Condition 08/27/2013 [facility] Chronic bronchitis * (ICD-9-CM 491.9) Inactive Condition 07/22/2010 [facility] Cortical senile cataract (ICD-9-CM 366.15/366.10) Inactive Condition 08/27/2013 [facility] DENTAL DISORDER NOS Inactive Condition 07/21/2010 [facility] Dry Eye Syndromes * (ICD-9-CM 375.15) Inactive Condition 07/22/2010 [facility] Environmental allergy Inactive Condition 04/17/2019 [facility] Gastroesophageal reflux disease (SNOMED CT 065260180) Inactive Condition 01/11/2023 [facility] Glycosuria Inactive Condition 01/06/2015 [facility] Driver Guard Examination, Routine Inactive Condition 05/12/2010 [facility] Hormone Replacement Therapy Started Inactive Condition 01/02/2014 [facility] Insomnia * (ICD-9-CM 780.52) Inactive Condition 06/24/2008 [facility] Menopausal syndrome (ICD-9-CM 627.2) Inactive Condition 05/12/2010 [facility] Mixed Incontinence (ICD-9-CM 788.33) Inactive Condition 04/17/2019 [facility] Nausea (SNOMED CT 672587974) Inactive Condition 04/17/2019 [facility] Noncompliance with Treatment (ICD-9-CM V15.81) Inactive Condition 04/24/2012 [facility] Ocular Hypertension Inactive Condition 07/12/2009 Sep 09, 2006 Entered By: MYCHAL METCALF OD Comment: mild [facility] Open Angle Glaucoma Suspect Inactive Condition 07/21/2010 [facility] Other Health Problems Within the Family Inactive Condition 07/02/2017 Jul 30, 2010 Entered By: DIPAK JOSEPH Comment: FH CEREBRAL ANNEURISMDec 2009 Entered By: DIPAK JOSEPH Comment: MRI/MRA neg 09/26 [facility] Other Opiod Dependence in Remission Inactive Condition 07/02/2017 [facility] Postmenopausal bleeding Inactive Condition 04/17/2019 January 02, 2014 Entered By: DIPAK JOSEPH Comment: due to HRT. Endometrial biopsy negative November 2013 [facility] Postmenopausal bleeding (ICD-9-CM 627.1) Inactive Condition 09/29/2013 [facility] Sleep apnea (SNOMED CT 94288274) Inactive Condition 01/11/2023 Jul 22, 2010 Entered By: DIPAK JOSEPH Comment: LEUKOPLAKIA OF TONGUE-- BX BENIGN- 09/27- could be pre-malig [facility] Tobacco Use Disorder, Remission Inactive Condition 07/02/2017 [facility] UNSPECIFIED DENTAL CARIES Inactive Condition 07/21/2010 [facility] Urinary Tract Infections Inactive Condition 07/02/2017 Jul 22, 2010 Entered By: DIPAK JOSEPH Comment: recurrent UTIs, nl cysto 04/27 [facility] Vertigo * (ICD-9-CM 780.4) Inactive Condition 07/02/2017 [facility] Diagnosis: ICD-10-CM F43.12 Post-traumatic stress disorder, chronic Active Diagnosis [facility] Diagnosis: ICD-10-CM F41.9 Anxiety disorder, unspecified Active Diagnosis [facility] Diagnosis: ICD-10-CM Z46.0 Encounter for fit/adjst of spectacles and contact lenses Active Diagnosis [facility] Diagnosis: ICD-10-CM H35.371 Puckering of macula, right eye Active Diagnosis [facility] Diagnosis: ICD-10-CM F51.05 Insomnia due to other mental disorder Active Diagnosis [facility] Diagnosis: ICD-10-CM I48.0 Paroxysmal atrial fibrillation Active Diagnosis [facility] Diagnosis: ICD-10-CM U07.1 COVID-19 Active Diagnosis [facility] Diagnosis: ICD-10-CM R05.1 Acute cough Active Diagnosis [facility] Diagnosis: ICD-10-CM J30.9 Allergic rhinitis, unspecified Active Diagnosis [facility] Diagnosis: ICD-10-CM L29.9 Pruritus, unspecified Active Diagnosis [facility] Diagnosis: ICD-10-CM K08.123 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, class III Active Diagnosis [facility] Diagnosis: ICD-10-CM K08.409 Partial loss of teeth, unspecified cause, unspecified class Active Diagnosis [facility] Diagnosis: ICD-10-CM F33.8 Other recurrent depressive disorders Active Diagnosis [facility] Diagnosis: ICD-10-CM E08.9 Diabetes due to underlying condition w/o complications Active Diagnosis [facility] Diagnosis: ICD-10-CM M54.59 Other low back pain Active Diagnosis [facility] Diagnosis: ICD-10-CM S33.6XXS Sprain of sacroiliac joint, sequela Active Diagnosis [facility] Diagnosis: ICD-10-CM K21.00 Gastro-esophageal reflux dis with esophagitis, without bleed Active Diagnosis [facility] Diagnosis: ICD-10-CM M25.552 Pain in left hip Active Diagnosis [facility] Diagnosis: ICD-10-CM H40.013 Open angle with borderline findings, low risk, bilateral Active Diagnosis [facility] Diagnosis: ICD-10-CM S33.6XXD Sprain of sacroiliac joint, subsequent encounter Active Diagnosis [facility] Diagnosis: ICD-10-CM Z04.89 Encounter for examination and observation for oth reasons Active Diagnosis [facility] ([facility]) Diagnosis: ICD-10-CM Z51.81 Encounter for therapeutic drug level monitoring Active Diagnosis [facility] Diagnosis: ICD-10-CM 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 Active Diagnosis [facility] (6[facility]GE) Diagnosis: ICD-10-CM Z23 Encounter for immunization Active Diagnosis [facility] Diagnosis: ICD-10-CM H81.4 Vertigo of central origin Active Diagnosis [facility] Diagnosis: ICD-10-CM H90.3 Sensorineural hearing loss, bilateral Active Diagnosis [facility] Diagnosis: ICD-10-CM R42 Dizziness and giddiness Active Diagnosis [facility] Diagnosis: ICD-10-CM Z71.89 Other specified counseling Active Diagnosis [facility] Diagnosis: ICD-10-CM J44.9 Chronic obstructive pulmonary disease, unspecified Active Diagnosis [facility] Medications Combined list of outpatient medications from Department of Defense and Veterans Affairs facilities.Medications provided include 1) outpatient medications from the last 15 months, and 2) patient-reported medications. Medication Details Route Status Patient Instructions Prescription Expires Prescription Number Last Dispense Date Ordering Provider Order Date Order Qty Source ALBUTEROL SO4 3MG/IPRATRO PIUM BR 0.5MG/3ML INHL,3ML INHALE 1 AMPULE IN NEBULIZE R EVERY 4 HOURS NEEDED FOR [facility] RESPIR ATORY (INHAL ATION) ACTIVE 05/19/2025 [id number] Gonzalo FELIZ ICOLE 2023 90 [facility] ALBUTEROL SO4 3MG/IPRATRO PIUM BR 0.5MG/3ML INHL,3ML INHALE 1 AMPULE IN NEBULIZE R EVERY THREE HOURS NEEDED FOR BRONCHOS [facility] RESPIR ATORY (INHAL ATION) 01/09/2024 [id number] 4 Gonzalo FELIZ ICSAMANTHA 2022 120 [facility] [place] [facility] [facility] AMOXICILLIN TRIHYDRATE 500MG CAP TAKE ONE CAPSULE BY MOUTH THREE TIMES A DAY ORAL 06/19/2024 [id number] GREGORY MORAN 2023 21 [facility] [place] [facility] AMOXICILLIN TRIHYDRATE 875MG/CLAVU LANATE K 125MG TAB TAKE 1 TABLET BY MOUTH TWICE DAILY FOR 14 DAYS FOR INFECTIO N ORAL 07/03/2024 [id number] GREGORY MORAN 2023 28 [facility] APIXABAN 5MG TAB TAKE ONE TABLET BY MOUTH EVERY 12 HOURS ORAL ACTIVE 08/09/2024 [id number] 4 ELVIACHEN,N ICOLE 2022 180 [facility] APIXABAN 5MG TAB TAKE ONE TABLET BY MOUTH TWICE DAILY ORAL DISCONT INUED (EDIT) 06/25/2024 [id number] ROGER OZUNA SHO 2022 60 [facility] CETIRIZINE HCL 10MG TAB TAKE ONE TABLET BY MOUTH ONCE DAILY FOR ALLERGIE S ORAL ACTIVE 04/07/2025 [id number] 4 ELVIACHEN,N ICOLE 2023 90 [facility] CETIRIZINE HCL 10MG TAB TAKE ONE TABLET BY MOUTH ONCE DAILY FOR ALLERGIE S ORAL DISCONT INUED 02/09/2024 [id number] TRAYN ICOLE 2022 90 [facility] [place] CHLORHEXIDI NE GLUCONATE 0.12% RINSE,ORAL RINSE 10 ML BY MOUTH TWICE DAILY FOR 3 WEEKS ORAL 06/19/2024 [id number] GREGORY MORAN 2023 473 [facility] CYANOCOBALA MIN 100MCG TAB TAKE ONE TABLET BY MOUTH EVERY OTHER DAY FOR VITAMIN SUPPLEME NTATION ORAL 05/10/2024 [id number] 4 TRAYN ICOLE 2022 45 [facility] [place] CYCLOBENZAP RINE HCL 5MG TAB TAKE ONE TABLET BY MOUTH THREE TIMES DAILY NEEDED FOR MUSCLE SPASM ORAL DISCONT INUED BY PROVIDE R 10/13/2023 [id number] 4 TRAYN ICOLE 2023 45 [facility] DILTIAZEM (EQV-TIAZAC AB4) 180MG 24HR CAP TAKE ONE CAPSULE BY MOUTH ONCE DAILY (PATIENT EXPERIEN MOSES AN ADVERSE REACTION WITH [facility] BRAND/PL EASE DISPENSE VALEANT/ OCEANSID E BRAND [facility] [id number] [phone]) ORAL DISCONT INUED 05/10/2024 [id number] KIRCHEN,N ICOLE 2022 90 [facility] DILTIAZEM (EQV-TIAZAC AB4) 180MG 24HR CAP TAKE ONE CAPSULE BY MOUTH ONCE DAILY (PATIENT EXPERIEN MOSES AN ADVERSE REACTION WITH [facility] BRAND/PL EASE DISPENSE VALEANT/ OCEANSID E BRAND NDC [id number] [phone]) ORAL DISCONT INUED 02/09/2024 [id number] ELVIACHEN,N ICOLE 2022 90 [facility] DILTIAZEM (EQV-TIAZAC AB4) 240MG 24HR CAP TAKE ONE CAPSULE BY MOUTH EVERY MORNING PATIENT EXPERIEN CE ADVERSE REACTION TO [facility] BRAND/PL EASE DISPENSE VALEANT/ OCEANSID E BRAND NDC [id number] 9- ORAL ACTIVE 12/31/2024 [id number] 4 TRAY,N ICOLE 2023 90 [facility] DILTIAZEM (EQV-TIAZAC AB4) 240MG 24HR CAP TAKE ONE CAPSULE BY MOUTH EVERY MORNING PATIENT EXPERIEN CE ADVERSE REACTION TO [facility] BRAND/PL EASE DISPENSE VALEANT/ OCEANSID E BRAND NDC 56019-06 9- ORAL DISCONT INUED 06/25/2024 [id number] 4 ROGER OZUNA 2022 90 [facility] DIPHENHYDRA MINE HCL 25MG CAP TAKE 1 CAPSULE BY MOUTH PRN ORAL ACTIVE USTA,RIZA 2022 [facility] FISH OIL 500MG DHA/EPA CAP,ORAL TAKE BY MOUTH ORAL ACTIVE USTA,RIZA 2022 [facility] ([facility]) FLUTICASONE PROPIONATE 50MCG/SPRAY SOLN,NASAL, 16GM INSTILL 2 SPRAYS INTO EACH NOSTRIL ONCE DAILY FOR NASAL IRRITATI ON/INFLA MMATION NASAL ACTIVE 04/07/2025 [id number] TRAYN ICOLE 2023 1 [facility] FORMOTEROL FUM DIHYD 5MCG/MOMETA SONE FUR 200MCG INHL,ORAL,1 3GM INHALE 2 PUFFS BY MOUTH TWICE DAILY FOR CONTROLL ER MEDICATI ON FOR ASTHMA RESPIR ATORY (INHAL ATION) ACTIVE 05/19/2025 [id number] 4 TRAYN ICOLE 2023 3 [facility] FORMOTEROL FUM DIHYD 5MCG/MOMETA SONE FUR 200MCG INHL,ORAL,1 3GM INHALE 2 PUFFS BY MOUTH TWICE DAILY FOR CONTROLL ER MEDICATI ON FOR ASTHMA RESPIR ATORY (INHAL ATION) 01/09/2024 [id number] 4 RTAYN ICOLE 2022 1 [facility] GOV-NIRMATR FELIX 150MG X 2/RITONAVIR 100MG X 1 TAB,PACK,3 TAKE 2 TABLETS NIRMATRE LVIR AND 1 TABLET RITONAVI R BY MOUTH TWICE DAILY FOR COVID-19 ORAL 05/06/2024 [id number] Gonzalo FELIZ ICOLE 2023 5 [facility] HYDROCODONE 5MG/ACETAMI NOPHEN 325MG TAB TAKE 1 TABLET BY MOUTH EVERY 6 HOURS NEEDED FOR PAIN ORAL 06/19/2024 [id number] 4 GREGORY MORAN 2023 15 [facility] IBUPROFEN 800MG TAB TAKE ONE TABLET BY MOUTH EVERY 8 HOURS NEEDED TAKE WITH FOOD ORAL 06/24/2024 [id number] 4 Gonzalo FELIZ ICOLE 2023 30 [facility] KETOTIFEN 0.025% SOLN,OPH INSTILL 1 DROP INTO EACH EYE EVERY 12 HOURS FOR ALLERGIC CONJUNCT IVITIS (IF YOU WEAR CONTACT LENSES, WAIT 10 MINUTES BEFORE INSERTIN G LENSES) OPHTHA LMIC ACTIVE 07/14/2025 [id number] Nasir PARKER NDREW E 2023 15 [facility] KETOTIFEN 0.025% SOLN,OPH INSTILL 1 DROP INTO EACH EYE EVERY 12 HOURS FOR ALLERGIC CONJUNCT IVITIS (IF YOU WEAR CONTACT LENSES, WAIT 10 MINUTES BEFORE INSERTIN G LENSES) OPHTHA LMIC DISCONT INUED 04/15/2024 [id number] 4 Nasir PARKER NDREW E 2022 15 [facility] LORAZEPAM 0.5MG TAB TAKE ONE TABLET BY MOUTH ONCE DAILY NEEDED FOR ANXIETY ORAL ACTIVE 01/24/2025 [id number] 4 Gonzalo FELIZOLE 2023 30 [facility] LORAZEPAM 0.5MG TAB TAKE ONE TABLET BY MOUTH ONCE DAILY NEEDED ANXIETY FOR ANXIETY ORAL DISCONT INUED BY PROVIDE R 11/13/2023 [id number] 4 Jenny ARNOLD E 2022 30 [facility] LORAZEPAM 0.5MG TAB TAKE ONE TABLET BY MOUTH ONCE DAILY NEEDED FOR ANXIETY ORAL 06/13/2024 [id number] 4 Jenny ARNOLD E 2023 30 [facility] METFORMIN HCL 1000MG TAB TAKE ONE TABLET BY MOUTH TWICE DAILY FOR DIABETES ORAL DISCONT INUED BY PROVIDE R 05/10/2024 [id number] 4 Gonzalo FELIZ ICOLE 2022 180 [facility] MONTELUKAST NA 10MG TAB TAKE ONE TABLET BY MOUTH ONCE DAILY FOR ASTHMA ORAL HOLD 07/22/2025 [id number] 4 TONY CARRANZA S 2023 30 [facility] OMEPRAZOLE 20MG CAP,EC TAKE TWO CAPSULES BY MOUTH EVERY MORNING 30 MINUTES BEFORE BREAKFAS T INCRESED DOSE ORAL DISCONT INUED BY PROVIDE R 05/10/2024 [id number] 4 Gonzalo FELIZ ICOLE 2022 180 [facility] OTHER CAP/TAB TAKE BY MOUTH ORAL ACTIVE CRISTEL HOLT 2021 [facility] [place] [facility] OTHER CAP/TAB TAKE BY MOUTH ORAL ACTIVE CRISTEL HOLT 2021 [facility] [place] OTHER CAP/TAB TAKE BY MOUTH ORAL ACTIVE CRISTEL HOLT 2021 [facility] [place] OTHER CAP/TAB TAKE MAGNESIU M 1200MG BY MOUTH ONCE DAILY ORAL ACTIVE USTA,RIZA 2022 [facility] ([facility]) PEG-400 0.4%/PROPYL NIRAJ GLYCOL 0.3% SOLN,OPH INSTILL 1 DROP INTO EACH EYE FOUR TIMES DAILY NEEDED FOR DRY EYE OPHTHA LMIC ACTIVE 07/14/2025 [id number] 4 Nasir PARKER E 2023 15 [facility] PSEUDOEPHED RINE HCL 60MG TAB TAKE ONE TABLET BY MOUTH EVERY 6 HOURS NEEDED FOR STUFFY NOSE ORAL 05/06/2024 [id number] 4 Gonzalo FELIZ ICOLE 2023 28 [facility] [place] [facility] ROSUVASTATI N CA 20MG TAB TAKE ONE-HALF TABLET BY MOUTH AT BEDTIME FOR CHOLESTE ROL TO REPLACE PRAVASTA TIN ORAL DISCONT INUED 05/10/2024 [id number] 3 Gonzalo FELIZ ICOLE 2022 45 [facility] [place] [facility] SERTRALINE HCL 100MG TAB TAKE TWO TABLETS BY MOUTH ONCE DAILY ANXIETY ORAL ACTIVE 12/18/2024 [id number] 4 Gonzalo FELIZ ICOLE 2023 180 [facility] [place] [facility] SERTRALINE HCL 100MG TAB TAKE TWO TABLETS BY MOUTH ONCE DAILY ANXIETY ORAL DISCONT INUED 05/13/2024 [id number] 4 Jenny ARNOLD E 2022 180 [facility] [place] [facility] TRAZODONE HCL 100MG TAB TAKE ONE-HALF TABLET BY MOUTH AT BEDTIME NEEDED FOR SLEEP ORAL ACTIVE 12/18/2024 [id number] 4 Gonzalo FELIZ 2023 45 [facility] TRAZODONE HCL 100MG TAB TAKE ONE-HALF TABLET BY MOUTH AT BEDTIME NEEDED FOR SLEEP ORAL DISCONT INUED 05/13/2024 [id number] 4 Jenny ARNOLD E 2022 45 [facility] TURMERIC CAP/TAB TAKE BY MOUTH ORAL ACTIVE [facility]EL HOLT 2021 [facility] VITAMIN E CAP,ORAL TAKE BY MOUTH ORAL ACTIVE [facility]RISTEL HOLT 2021 [facility] ZINC 50MG (FROM SULFATE) CAP TAKE 1 CAPSULE BY MOUTH ONCE DAILY ORAL ACTIVE CALI NANCE 2022 [facility] (6[facility]GE) Allergies, Adverse Reactions, Alerts Combined list of allergies from Department of Defense and Veterans Affairs facilities. It does not include entries that were removed or entered in error. Substance Category Reaction Severity Reaction type Status Date Reported Comments Source ASPIRIN RELATED MEDICATIONS Propensity to adverse reactions to drug (finding) Indigestion MODERATE active 4 [facility] ATORVASTATIN Propensity to adverse reactions to drug (finding) Urticaria active 4 [facility] BACTRIM Propensity to adverse reactions to drug (finding) HIVES active 3 [facility] MIRTAZAPINE Propensity to adverse reactions to drug (finding) Hyperactive behavior active 3 [facility] MOXIFLOXACIN Propensity to adverse reactions to drug (finding) Flushing, Itching MODERATE active 2 [facility] NIACIN Propensity to adverse reactions to drug (finding) Flushing active 1 [facility] SULFA DRUGS Propensity to adverse reactions to drug (finding) active 7 [facility] SULFUR Propensity to adverse reactions to drug (finding) HIVES, Respiratory distress, VISION,BLUR RED active 3 [facility] VARENICLINE Propensity to adverse reactions to drug (finding) Anxiety MODERATE active 2 [facility] [place] ZOCOR Propensity to adverse reactions to drug (finding) active 8 [facility] [place] [facility] Immunizations Combined list of available immunizations from the Department of Defense and Veterans Affairs facilities. Immunization Series Date Given Administered By Site Reaction Lot Number CVX Code Drug Discharge Planner Status Comments Source INFLUENZA, HIGH-DOSE, QUADRIVALENT 2022 KI[facility] FRANCIS LEFT DELTO ID [id number] 197 complet ed [facility] INFLUENZA VACCINE, QUADRIVALENT, ADJUVANTED 2021 205 complet ed [facility] INFLUENZA VACCINE, QUADRIVALENT, ADJUVANTED 2020 205 complet ed [facility] PNEUMOCOCCAL POLYSACCHARID E PPV23 2020 33 complet ed [facility] TD (ADULT), 5 LF TETANUS TOXOID, PRESERVATIVE FREE, ADSORBED 2020 113 complet ed [facility] COVID-19 (MODERNA), MRNA, LNP-S, PF, 100 MCG/0.5 ML DOSE 2 2020 207 complet ed MOD; [id number]; 1 [facility] COVID-19 (MODERNA), MRNA, LNP-S, PF, 100 MCG/0.5 ML DOSE 1 2020 207 complet ed MOD; [id number]; 1 [facility] INFLUENZA, HIGH-DOSE, QUADRIVALENT 2019 197 complet ed [facility] ZOSTER RECOMBINANT 2 2019 187 complet ed [facility] ZOSTER RECOMBINANT 1 2019 187 complet ed [facility] INFLUENZA, TRIVALENT, ADJUVANTED 2018 168 complet ed Site: Right Deltoid [facility] INFLUENZA, HIGH DOSE SEASONAL 2017 135 complet ed Site: Left Deltoid [facility] PNEUMOCOCCAL CONJUGATE PCV 13 2017 133 complet ed [facility] INFLUENZA, HIGH DOSE SEASONAL 2016 135 complet ed Site: Right Deltoid [facility] FLU,3 YRS (HISTORICAL) 2015 88 complet ed Site: Left Deltoid [facility] FLU,3 YRS (HISTORICAL) 2014 88 complet ed Site: Left Deltoid [facility] PNEUMOCOCCAL POLYSACCHARID E PPV23 2014 33 complet ed [facility] FLU,3 YRS (HISTORICAL) 2013 88 complet ed Site: Right Deltoid [facility] ZOSTER (SHINGLES) (HISTORICAL) 2013 121 complet ed Proximal Left Arm [facility] FLU,3 YRS (HISTORICAL) 2012 88 complet ed CDH [facility] FLU,3 YRS (HISTORICAL) 2011 88 complet ed Site: Left Deltoid [facility] FLU,3 YRS (HISTORICAL) 2010 88 complet ed Site: Left Deltoid [facility] DTAP, UNSPECIFIED FORMULATION 2010 107 complet ed Site: Left Deltoid [facility] FLU,3 YRS (HISTORICAL) 2009 88 complet ed Site: Left Deltoid [facility] PNEUMOCOCCAL, UNSPECIFIED FORMULATION 2009 109 complet ed Site: Right Deltoid [facility] NOVEL INFLUENZA-H1N 1-09, ALL FORMULATIONS 2009 128 complet ed [employer] [facility] FLU,3 YRS (HISTORICAL) 2008 88 complet ed Site: Left Deltoid [facility] FLU,3 YRS (HISTORICAL) 2007 88 complet ed Site: Left Deltoid [facility] FLU,3 YRS (HISTORICAL) 2007 88 complet ed [facility] FLU,3 YRS (HISTORICAL) 2006 88 complet ed Site: Left Deltoid [facility] INFLUENZA, UNSPECIFIED FORMULATION 2002 88 complet ed [facility] INFLUENZA, WHOLE 2002 16 complet ed [facility] PNEUMOCOCCAL (HISTORICAL) 1999 109 complet ed not due till 07/23. [facility] TD(ADULT) UNSPECIFIED FORMULATION 1998 139 complet ed [facility] Results Combined list of recent chemistry, hematology and other laboratory results from [employer] and [employer], ranging from 15 months to all on record, depending upon the facility. Order Name Results Value Reference Range Date Interpretation Specimen Comments Source HEMOGLOB IN A1C PANEL HEMOGLOBIN A1C/HEMOGL OBIN.TOTAL IN BLOOD BY HPLC 6.0 4.0 - 5.6 07/27 H Specimen Type: BLOOD Comment: Values obtained from A1C measurement s can vary. For atypical A1C assays, a reported value of 7.0 could actually be between 6.72 and 7.28 if measured by a reference method. A reported value of 9.0 could actually be between 8.73 and 9.27. Ref: http://www. ngsp.org/[place] Pdata.asp Ordering Provider: SULTANA FELIZ Report Released Date/Time: May 08, 2024 08:51 AM Reporting Lab: [facility] [place] [facility] [address] [address] Performing Lab: [facility] [place] [facility] [address] [address] [facility] COVID-19 FLU/RSV DIAGNOST IC PANEL SARS-COV-2 (COVID-19) RNA [PRESENCE] IN RESPIRATOR Y SYSTEM SPECIMEN BY MICHELLE WITH PROBE DETECTION POSITIVE 04/06 Specimen Type: NASOPHARYNX Comment: This test is authorized for emergency use only. False negative results may occur if virus is present at levels below the analytical limit of detection.N egative results do not preclude SARS-CoV-2, influenza or RSV infection and should not be used as the sole basis for treatment or other patient management decisions.C epheid FLUVID: HCPs: https://www .[facility].gov/ia marsha/704854/ download. Patients: https://www .[facility].gov/ia marsha/692229/ download NOTIFIED DR FELIZ 04/06/24@15 52 BY EMAILED TO INFECTION CONTROL FAXED TO [facility] Ordering Provider: SULTANA FELIZ Report Released Date/Time: Apr 06, 2024 12:55 PM Reporting Lab: [address] [address] Performing Lab: [address] [address] [facility] COVID-19 FLU/RSV DIAGNOST IC PANEL FLU A PCR (FLUVID) NEGATIVE 04/06 Specimen Type: NASOPHARYNX Comment: This test is authorized for emergency use only. False negative results may occur if virus is present at levels below the analytical limit of detection.N egative results do not preclude SARS-CoV-2, influenza or RSV infection and should not be used as the sole basis for treatment or other patient management decisions.C epheid FLUVID: HCPs: https://www .fda.gov/ia [place]/741361/ download. Patients: https://www .[facility].gov/ia marsha/526319/ download NOTIFIED DR FELIZ 04/06/24@15 52 BY EMAILED TO INFECTION CONTROL FAXED TO [facility] Ordering Provider: SULTANA FELIZ Report Released Date/Time: Apr 06, 2024 12:55 PM Reporting Lab: [address] [address] Performing Lab: [address] [address] [facility] COVID-19 FLU/RSV DIAGNOST IC PANEL FLU B PCR (FLUVID) NEGATIVE 04/06 Specimen Type: NASOPHARYNX Comment: This test is authorized for emergency use only. False negative results may occur if virus is present at levels below the analytical limit of detection.N egative results do not preclude SARS-CoV-2, influenza or RSV infection and should not be used as the sole basis for treatment or other patient management decisions.C epheid FLUVID: HCPs: https://www .[facility].gov/ia marsha/773809/ download. Patients: https://www .[facility].gov/ia marsha/824080/ download NOTIFIED DR FELIZ 04/06/24@15 52 BY EMAILED TO INFECTION CONTROL FAXED TO [facility] Ordering Provider: SULTANA FELIZ Report Released Date/Time: Apr 06, 2024 12:55 PM Reporting Lab: [address] [address] Performing Lab: [address] [address] [facility] COVID-19 FLU/RSV DIAGNOST IC PANEL RSV PCR (FLUVID) NEGATIVE 04/06 Specimen Type: NASOPHARYNX Comment: This test is authorized for emergency use only. False negative results may occur if virus is present at levels below the analytical limit of detection.N egative results do not preclude SARS-CoV-2, influenza or RSV infection and should not be used as the sole basis for treatment or other patient management decisions.C epheid FLUVID: HCPs: https://www .fda.gov/ia marsha/684169/ download. Patients: https://www .fda.gov/ia marsha/515554/ download NOTIFIED DR FELIZ 04/06/24@15 52 BY EMAILED TO INFECTION CONTROL FAXED TO [facility] Ordering Provider: SULTANA FELIZ Report Released Date/Time: Apr 06, 2024 12:55 PM Reporting Lab: [facility] [address] [address] Performing Lab: [address] [address] [facility] SARS-COV -2 VARIANT SEQ PNL([facility]) SARS-COV-2 (COVID-19) LINEAGE [IDENTIFIE R] IN SPECIMEN BY MOLECULAR GENETICS METHOD MC.1 04/06 Specimen Type: NASOPHARYNX Comment: -Pangolin version 4.3.1 (data version 0) -Nextclade version 3.8.2 (data version 2024-03-04) https://www .cdc.gov/co ronavirus/2 019-ncov/ca ses-updates /variant- surveillanc e/variant-i nfo.html The [employer] SARS CoV 2 Insight Research Assay-GX is a next-genera tion sequencing (NGS) assay that determines the complete genome sequence of the SARS-CoV-2 virus. The assay contains variant-omkar erant primers to broaden and improve the coverage for variant detection and increase the sensitivity of the panel to enable detection from lower viral titer samples. The assay is run on the [employer] Sequencer, which performs automated library preparation , sequencing, analysis, and reporting. The sequence analysis includes determinati on of viral phylogeneti c lineage by comparison to the reference strain Wuhan-Hu-1, GenBank: [id number]. Sequence determinati on may not be possible owing to inadequate quantity or quality of the viral RNA in the original specimen. Sequencing will not be attempted if the SARS-CoV-2 PCR assay result has a Ct > 30. Note that phylogeneti c lineage assignment in some cases may exchange floor manager time for the same sequence as the virus continues to evolve and new sub lineages are created. The reported result will reflect the lineage assignment only at the time of initial sequence determinati on. This test was developed, and its performance characteris tics determined by the [facility], which is certified under the Clinical Laboratory Improvement Amendments (CLIA) as qualified to perform high complexity clinical laboratory testing. This test is validated for clinical use at [facility] and should not be regarded as investigati onal or for research. The FDA does not require this test to go through premarket FDA review, and therefore it has not been cleared or approved by the FDA. This report was reviewed and approved by the on-service pathologist . Ordering Provider: SULTANA FELIZ Report Released Date/Time: Apr 27, 2024 11:46 AM Reporting Lab: [address] [address] Performing Lab: [facility] [address] [facility] [address] [facility] SARS-COV -2 VARIANT SEQ PNL([facility]) SARS-COV-2 (COVID-19) CLADE [TYPE] IN SPECIMEN BY MOLECULAR GENETICS METHOD 24C (Omicron ) 04/06 Specimen Type: NASOPHARYNX Comment: -Pangolin version 4.3.1 (data version ) -Nextclade version 3.8.2 (data version 2024-03-04) https://www .cdc.gov/co ronavirus/2 019-ncov/ca ses-updates /variant- surveillanc e/variant-i nfo.html The [employer] SARS CoV 2 [employer] Research Assay-GX is a next-genera tion sequencing (NGS) assay that determines the complete genome sequence of the SARS-CoV-2 virus. The assay contains variant-omkar erant primers to broaden and improve the coverage for variant detection and increase the sensitivity of the panel to enable detection from lower viral titer samples. The assay is run on the [employer] Sequencer, which performs automated library preparation , sequencing, analysis, and reporting. The sequence analysis includes determinati on of viral phylogeneti c lineage by comparison to the reference strain Wuhan-Hu-1, GenBank: [id number]. Sequence determinati on may not be possible owing to inadequate quantity or quality of the viral RNA in the original specimen. Sequencing will not be attempted if the SARS-CoV-2 PCR assay result has a Ct > 30. Note that phylogeneti c lineage assignment in some cases may exchange floor manager time for the same sequence as the virus continues to evolve and new sub lineages are created. The reported result will reflect the lineage assignment only at the time of initial sequence determinati on. This test was developed, and its performance characteris tics determined by the [facility], which is certified under the Clinical Laboratory Improvement Amendments (CLIA) as qualified to perform high complexity clinical laboratory testing. This test is validated for clinical use at [facility] and should not be regarded as investigati onal or for research. The FDA does not require this test to go through premarket FDA review, and therefore it has not been cleared or approved by the FDA. This report was reviewed and approved by the on-service pathologist . Ordering Provider: SULTANA FELIZ Report Released Date/Time: Apr 27, 2024 11:46 AM Reporting Lab: [facility] [address] [address] Performing Lab: [facility] [address] [facility]USE [facility] BASIC METABOLI C PANEL (non-fas ting) UREA NITROGEN [MASS/VOLU ME] IN SERUM OR PLASMA 10 mg/dL 7 - 25 02/27 Specimen Type: SERUM No comment entered. Ordering Provider: SULTANA FELIZ Report Released Date/Time: Feb 28, 2024 12:47 PM Reporting Lab: [facility] [address] Performing Lab: [facility] [address] [facility] BASIC METABOLI C PANEL (non-fas ting) GLUCOSE [MASS/VOLU ME] IN SERUM OR PLASMA 148 mg/dL 65 - 100 02/27 H Specimen Type: SERUM No comment entered. Ordering Provider: SULTANA FELIZ Report Released Date/Time: Feb 28, 2024 12:47 PM Reporting Lab: [facility] [address] [address] Performing Lab: [facility] [address] [facility] BASIC METABOLI C PANEL (non-fas ting) SODIUM [MOLES/VOL UME] IN SERUM OR PLASMA 140 mmol/L 135 - 145 02/27 Specimen Type: SERUM No comment entered. Ordering Provider: SULTANA FELIZ Report Released Date/Time: Feb 28, 2024 12:47 PM Reporting Lab: [facility] [address] [address] Performing Lab: [facility] [address] [address] [facility] BASIC METABOLI C PANEL (non-fas ting) POTASSIUM [MOLES/VOL UME] IN SERUM OR PLASMA 4.7 mmol/L 3.5 - 5.0 02/27 Specimen Type: SERUM No comment entered. Ordering Provider: SULTANA FELIZ Report Released Date/Time: Feb 28, 2024 12:47 PM Reporting Lab: [facility] [address] Performing Lab: [facility] [address] [facility] BASIC METABOLI C PANEL (non-fas ting) CHLORIDE [MOLES/VOL UME] IN SERUM OR PLASMA 101 mmol/L 100 - 110 02/27 Specimen Type: SERUM No comment entered. Ordering Provider: SULTANA FELIZ Report Released Date/Time: Feb 28, 2024 12:47 PM Reporting Lab: [facility] [address] [address] Performing Lab: [facility] [address] [facility]USE [facility] BASIC METABOLI C PANEL (non-fas ting) CARBON DIOXIDE, TOTAL [MOLES/VOL UME] IN SERUM OR PLASMA 30 meq/L 20 - 30 02/27 Specimen Type: SERUM No comment entered. Ordering Provider: SULTANA FELIZ Report Released Date/Time: Feb 28, 2024 12:47 PM Reporting Lab: [facility] [address] [address] Performing Lab: [facility] [address] [facility] BASIC METABOLI C PANEL (non-fas ting) CREATININE [MASS/VOLU ME] IN SERUM OR PLASMA 0.70 mg/dL 0.50 - 1.40 02/27 Specimen Type: SERUM No comment entered. Ordering Provider: SULTANA FELIZ Report Released Date/Time: Feb 28, 2024 12:47 PM Reporting Lab: [facility] [place] [facility] [address] [address] Performing Lab: [facility] [place] [facility] [address] [address] [facility] [place] [facility] BASIC METABOLI C PANEL (non-fas ting) GLOMERULAR FILTRATION RATE/1.73 SQ M.PREDICTE D [VOLUME RATE/AREA] IN SERUM, PLASMA OR BLOOD BY CREATININE -BASED FORMULA (CKD-EPI 2020) >90mL/mi n 60 02/27 Specimen Type: SERUM No comment entered. Ordering Provider: SULTANA FELIZ Report Released Date/Time: Feb 28, 2024 12:47 PM Reporting Lab: [facility] [place] [facility] [address] [address] Performing Lab: [facility] [place] [facility] [address] [address] [facility] [place] [facility] CBC AND DIFF (AUTO) LEUKOCYTES [#/VOLUME] IN BLOOD BY AUTOMATED COUNT 3.39 10*3/uL 4.50 - 11.00 02/27 L Specimen Type: BLOOD No comment entered. Ordering Provider: SULTANA FELIZ Report Released Date/Time: Feb 28, 2024 12:47 PM Reporting Lab: [facility] [place] [facility] [address] [address] Performing Lab: [facility] [place] [facility] [address] [address] [facility] [place] [facility] CBC AND DIFF (AUTO) ERYTHROCYT ES [#/VOLUME] IN BLOOD BY AUTOMATED COUNT 3.84 10*6/uL 3.93 - 5.16 02/27 L Specimen Type: BLOOD No comment entered. Ordering Provider: SULTANA FELIZ Report Released Date/Time: Feb 28, 2024 12:47 PM Reporting Lab: [facility] [place] [facility] [address] [address] Performing Lab: [facility] [place] [address] [address] [facility] [place] [facility] CBC AND DIFF (AUTO) HEMOGLOBIN [MASS/VOLU ME] IN BLOOD 12.4 g/dL 12 - 15.2 02/27 Specimen Type: BLOOD No comment entered. Ordering Provider: SULTANA FELIZ Report Released Date/Time: Feb 28, 2024 12:47 PM Reporting Lab: [facility] [place] [facility] [address] [address] Performing Lab: [facility] [place] [facility] [address] [address] [facility] [place] [facility] CBC AND DIFF (AUTO) HEMATOCRIT [VOLUME FRACTION] OF BLOOD BY AUTOMATED COUNT 36.1 36.6 - 45.6 02/27 L Specimen Type: BLOOD No comment entered. Ordering Provider: SULTANA FELIZ Report Released Date/Time: Feb 28, 2024 12:47 PM Reporting Lab: [facility] [place] [facility] [address] [address] Performing Lab: [facility] [place] [facility] [address] [address] [facility] [place] [facility] CBC AND DIFF (AUTO) MCV [ENTITIC VOLUME] BY AUTOMATED COUNT 94.0 fL 82 - 99 02/27 Specimen Type: BLOOD No comment entered. Ordering Provider: SULTANA FELIZ Report Released Date/Time: Feb 28, 2024 12:47 PM Reporting Lab: [facility] [place] [facility] [address] [address] Performing Lab: [facility] [place] [facility] [address] [address] [facility] [place] [facility] CBC AND DIFF (AUTO) MCHC [MASS/VOLU ME] BY AUTOMATED COUNT 34.3 g/dL 30.8 - 35.1 02/27 Specimen Type: BLOOD No comment entered. Ordering Provider: SULTANA FELIZ Report Released Date/Time: Feb 28, 2024 12:47 PM Reporting Lab: [facility] [place] [facility] [address] [address] Performing Lab: [facility] [place] [facility] [address] [address] [facility] [place] [facility] CBC AND DIFF (AUTO) PLATELETS [#/VOLUME] IN BLOOD BY AUTOMATED COUNT 214 10*3/uL 140 - 360 02/27 Specimen Type: BLOOD No comment entered. Ordering Provider: SULTANA FELIZ Report Released Date/Time: Feb 28, 2024 12:47 PM Reporting Lab: [facility] [place] [facility] [address] [address] Performing Lab: [facility] [place] [facility] [address] [address] [facility] [place] [facility] CBC AND DIFF (AUTO) ERYTHROCYT E DISTRIBUTI ON WIDTH [RATIO] BY AUTOMATED COUNT 12.0 12.0 - 16.0 02/27 Specimen Type: BLOOD No comment entered. Ordering Provider: SULTANA FELIZ Report Released Date/Time: Feb 28, 2024 12:47 PM Reporting Lab: [facility] [place] [address] [address] Performing Lab: [facility] [place] [address] [address] [facility] [place] [facility] CBC AND DIFF (AUTO) MONOCYTES [#/VOLUME] IN BLOOD BY AUTOMATED COUNT 0.34 10*3/uL 0.30 - 1.10 02/27 Specimen Type: BLOOD No comment entered. Ordering Provider: SULTANA FELIZ Report Released Date/Time: Feb 28, 2024 12:47 PM Reporting Lab: [facility] [place] [address] [address] Performing Lab: [facility] [place] [address] [address] [facility] [place] [facility] CBC AND DIFF (AUTO) MCH [ENTITIC MASS] BY AUTOMATED COUNT 32.3 pg 26.2 - 32.6 02/27 Specimen Type: BLOOD No comment entered. Ordering Provider: SULTANA FELIZ Report Released Date/Time: Feb 28, 2024 12:47 PM Reporting Lab: [facility] [place] [address] [address] Performing Lab: [facility] [place] [facility] [address] [address] [address] [facility] CBC AND DIFF (AUTO) NEUTROPHIL S/100 LEUKOCYTES IN BLOOD BY AUTOMATED COUNT 52.0 43.7 - 75.8 02/27 Specimen Type: BLOOD No comment entered. Ordering Provider: SULTANA FELIZ Report Released Date/Time: Feb 28, 2024 12:47 PM Reporting Lab: [facility] [place] [facility] [address] [address] Performing Lab: [facility] [place] [facility] [address] [address] [facility] CBC AND DIFF (AUTO) LYMPHOCYTE S/100 LEUKOCYTES IN BLOOD BY AUTOMATED COUNT 32.7 14.0 - 42.3 02/27 Specimen Type: BLOOD No comment entered. Ordering Provider: SULTANA FELIZ Report Released Date/Time: Feb 28, 2024 12:47 PM Reporting Lab: [facility] [place] [facility] [address] [address] Performing Lab: [facility] [place] [facility] [address] [address] [facility] [facility] CBC AND DIFF (AUTO) MONOCYTES/ 100 LEUKOCYTES IN BLOOD BY AUTOMATED COUNT 10.0 5.1 - 13.7 02/27 Specimen Type: BLOOD No comment entered. Ordering Provider: SULTANA FELIZ Report Released Date/Time: Feb 28, 2024 12:47 PM Reporting Lab: [facility] [address] [address] [address] Performing Lab: [facility] [address] [address] [facility] CBC AND DIFF (AUTO) EOSINOPHIL S/100 LEUKOCYTES IN BLOOD BY AUTOMATED COUNT 4.1 0.4 - 6.8 02/27 Specimen Type: BLOOD No comment entered. Ordering Provider: SULTANA FELIZ Report Released Date/Time: Feb 28, 2024 12:47 PM Reporting Lab: [facility] [address] [address] Performing Lab: [facility] [address] [address] [facility] CBC AND DIFF (AUTO) BASOPHILS/ 100 LEUKOCYTES IN BLOOD BY AUTOMATED COUNT 0.9 0.1 - 2.0 02/27 Specimen Type: BLOOD No comment entered. Ordering Provider: SULTANA FELIZ Report Released Date/Time: Feb 28, 2024 12:47 PM Reporting Lab: [facility] [address] [address] Performing Lab: [facility] [place] [facility] [address] [address] [facility] CBC AND DIFF (AUTO) NEUTROPHIL S [#/VOLUME] IN BLOOD BY AUTOMATED COUNT 1.76 10*3/uL 2.20 - 7.60 02/27 L Specimen Type: BLOOD No comment entered. Ordering Provider: SULTANA FELIZ Report Released Date/Time: Feb 28, 2024 12:47 PM Reporting Lab: [facility] [place] [facility] [address] [address] Performing Lab: [facility] [facility] [address] [address] [facility] [facility] CBC AND DIFF (AUTO) LYMPHOCYTE S [#/VOLUME] IN BLOOD BY AUTOMATED COUNT 1.11 10*3/uL 1.00 - 3.20 02/27 Specimen Type: BLOOD No comment entered. Ordering Provider: SULTANA FELIZ Report Released Date/Time: Feb 28, 2024 12:47 PM Reporting Lab: [facility] [facility] [address] [address] Performing Lab: [facility] [place] [facility] [address] [facility] [address] [facility] CBC AND DIFF (AUTO) EOSINOPHIL S [#/VOLUME] IN BLOOD BY AUTOMATED COUNT 0.14 10*3/uL 0.03 - 0.44 02/27 Specimen Type: BLOOD No comment entered. Ordering Provider: SULTANA FELIZ Report Released Date/Time: Feb 28, 2024 12:47 PM Reporting Lab: [facility] [address] [facility] [address] Performing Lab: [facility] [address] [facility] [address] [facility] CBC AND DIFF (AUTO) BASOPHILS [#/VOLUME] IN BLOOD BY AUTOMATED COUNT 0.03 10*3/uL 0.01 - 0.13 02/27 Specimen Type: BLOOD No comment entered. Ordering Provider: SULTANA FELIZ Report Released Date/Time: Feb 28, 2024 12:47 PM Reporting Lab: [facility] [address] [facility] [address] Performing Lab: [facility] [address] [facility] [address] [facility] CBC AND DIFF (AUTO) IMMATURE GRANULOCYT ES/100 LEUKOCYTES IN BLOOD BY AUTOMATED COUNT 0.3 0.0 - 0.7 02/27 Specimen Type: BLOOD No comment entered. Ordering Provider: SULTANA FELIZ Report Released Date/Time: Feb 28, 2024 12:47 PM Reporting Lab: [facility] [address] [facility] [address] Performing Lab: [facility] [address] [facility] [address] [facility] CBC AND DIFF (AUTO) IMMATURE GRANULOCYT ES [#/VOLUME] IN BLOOD 0.01 10*3/uL 0.00 - 0.06 02/27 Specimen Type: BLOOD No comment entered. Ordering Provider: SULTANA FELIZ Report Released Date/Time: Feb 28, 2024 12:47 PM Reporting Lab: [facility] [address] [facility] [address] Performing Lab: [facility] [address] [facility] [address] [facility] CBC AND DIFF (AUTO) NRBC % 0.0 0.0 - 0.0 02/27 Specimen Type: BLOOD No comment entered. Ordering Provider: SULTANA FELIZ Report Released Date/Time: Feb 28, 2024 12:47 PM Reporting Lab: [address] [address] Performing Lab: [address] [address] [facility] CBC AND DIFF (AUTO) NRBC, ABS 0.00 10*3/uL 0.00 - 0.00 02/27 Specimen Type: BLOOD No comment entered. Ordering Provider: SULTANA FELIZ Report Released Date/Time: Feb 28, 2024 12:47 PM Reporting Lab: [address] [address] Performing Lab: [address] [address] [facility] HEMOGLOB IN A1C PANEL HEMOGLOBIN A1C/HEMOGL OBIN.TOTAL IN BLOOD BY HPLC 6.2 4.0 - 5.6 02/27 H Specimen Type: BLOOD Comment: Values obtained from A1C measurement s can vary. For atypical A1C assays, a reported value of 7.0 could actually be between 6.72 and 7.28 if measured by a reference method. A reported value of 9.0 could actually be between 8.73 and 9.27. Ref: http://www. ngsp.org/[place] Pdata.asp Ordering Provider: SULTANA FELIZ Report Released Date/Time: Feb 28, 2024 12:47 PM Reporting Lab: [address] [address] Performing Lab: [address] [address] [facility] LIVER FUNCTION PROTEIN [MASS/VOLU ME] IN SERUM OR PLASMA 7.0 g/dL 6.0 - 8.3 02/27 Specimen Type: SERUM No comment entered. Ordering Provider: SULTANA FELIZ Report Released Date/Time: Feb 28, 2024 12:47 PM Reporting Lab: [facility] [address] [facility] [address] Performing Lab: [facility] [address] [facility] [address] [facility] LIVER FUNCTION ALBUMIN [MASS/VOLU ME] IN SERUM OR PLASMA 4.2 g/dL 3.5 - 5.0 02/27 Specimen Type: SERUM No comment entered. Ordering Provider: SULTANA FELIZ Report Released Date/Time: Feb 28, 2024 12:47 PM Reporting Lab: [facility] [address] [facility] [address] Performing Lab: [facility] [address] [facility] [address] [facility] LIVER FUNCTION ALKALINE PHOSPHATAS E [ENZYMATIC ACTIVITY/V OLUME] IN SERUM OR PLASMA 62 U/L 40 - 150 02/27 Specimen Type: SERUM No comment entered. Ordering Provider: SULTANA FELIZ Report Released Date/Time: Feb 28, 2024 12:47 PM Reporting Lab: [facility] [address] [facility] [address] Performing Lab: [facility] [address] [facility] [address] [facility] LIVER FUNCTION ASPARTATE AMINOTRANS FERASE [ENZYMATIC ACTIVITY/V OLUME] IN SERUM OR PLASMA 15 U/L 5 - 34 02/27 Specimen Type: SERUM No comment entered. Ordering Provider: SULTANA FELIZ Report Released Date/Time: Feb 28, 2024 12:47 PM Reporting Lab: [facility] [address] [facility] [address] Performing Lab: [facility] [address] [facility] [address] [facility] LIVER FUNCTION ALANINE AMINOTRANS FERASE [ENZYMATIC ACTIVITY/V OLUME] IN SERUM OR PLASMA 20 U/L 02/27 Specimen Type: SERUM No comment entered. Ordering Provider: SULTANA FELIZ Report Released Date/Time: Feb 28, 2024 12:47 PM Reporting Lab: [facility] [address] [facility] [address] Performing Lab: [facility] [address] [facility] [address] [facility] LIVER FUNCTION BILIRUBIN. TOTAL [MASS/VOLU ME] IN SERUM OR PLASMA 0.4 mg/dL 0.2 - 1.2 02/27 Specimen Type: SERUM No comment entered. Ordering Provider: SULTANA FELIZ Report Released Date/Time: Feb 28, 2024 12:47 PM Reporting Lab: [facility] [address] [facility] [address] Performing Lab: [facility] [address] [facility] [address] [facility] THYROID T4 FREE(FT4 ) (WROX) THYROXINE (T4) FREE [MASS/VOLU ME] IN SERUM OR PLASMA 0.93 ng/dL 0.6 - 1.6 02/27 Specimen Type: SERUM No comment entered. Ordering Provider: SULTANA FELIZ Report Released Date/Time: Feb 28, 2024 12:47 PM Reporting Lab: [facility] [address] [facility] [address] Performing Lab: [facility] [address] [facility] [address] [facility] TSH THYROTROPI N [UNITS/VOL UME] IN SERUM OR PLASMA 0.54 u[IU]/mL 0.35 - 5.00 02/27 Specimen Type: SERUM No comment entered. Ordering Provider: SULTANA FELIZ Report Released Date/Time: Feb 28, 2024 12:47 PM Reporting Lab: [facility] [address] [facility] [address] Performing Lab: [facility] [address] [facility] [address] [facility] MICROALB UMIN CREATINI NE RATIO PANEL MICROALBUM IN/CREATIN INE [MASS RATIO] IN URINE cancmg/g 0 - 29.9 11/14 Specimen Type: URINE No comment entered. Ordering Provider: SULTANA FELIZ Report Released Date/Time: Nov 15, 2023 09:56 AM Reporting Lab: [facility] [address] [facility] [address] Performing Lab: [facility] [address] [facility] [address] [facility] MICROALB UMIN CREATINI NE RATIO PANEL MICROALBUM IN [MASS/VOLU ME] IN URINE < 0.5mg/dL 11/14 Specimen Type: URINE No comment entered. Ordering Provider: SULTANA FELIZ Report Released Date/Time: Nov 15, 2023 09:56 AM Reporting Lab: [facility] [address] [facility] [address] Performing Lab: [facility] [address] [facility] [address] [facility] MICROALB UMIN CREATINI NE RATIO PANEL CREATININE [MASS/VOLU ME] IN URINE 34.74 mg/dL 11/14 Specimen Type: URINE No comment entered. Ordering Provider: SULTANA FELIZ Report Released Date/Time: Nov 15, 2023 09:56 AM Reporting Lab: [facility] [address] [facility] [address] Performing Lab: [facility] [address] [address] [facility] Vital Signs Combined list of inpatient and outpatient Vital Signs from Department of Defense and Veterans Affairs, ranging from 12 months to all on record, depending upon the facility. Vital Sign Value Date Comments Source SYSTOLIC BLOOD PRESSURE 110 05/08/20 24 08:02:36 [facility] DIASTOLIC BLOOD PRESSURE 74 024 08:02:36 [facility] PULSE OXIMETRY 97 05/08/2024 08:02:36 [facility] WEIGHT 138 05/08/2024 08:02:36 [facility] BMI 26kg/m2 05/08/2024 08:02:36 [facility] PULSE 74 05/08/2024 08:02:36 [facility] RESPIRATION 19 05/08/2024 08:02:36 [facility] SYSTOLIC BLOOD PRESSURE 136 04/06/20 24 12:43:04 [facility] DIASTOLIC BLOOD PRESSURE 78 12:43:04 [facility] PULSE OXIMETRY 97 04/06/2024 12:43:04 [facility] TEMPERATURE 97.6 04/06/2024 12:43:04 [facility] PULSE 94 04/06/2024 12:43:04 [facility] RESPIRATION 19 04/06/2024 12:43:04 [facility] SYSTOLIC BLOOD PRESSURE 105 02/28/20 24 11:55:19 [facility] DIASTOLIC BLOOD PRESSURE 68 024 11:55:19 [facility] PULSE OXIMETRY 97 02/28/2024 11:55:19 [facility] PULSE 69 02/28/2024 11:55:19 [facility] RESPIRATION 18 02/28/2024 11:55:19 [facility] SYSTOLIC BLOOD PRESSURE 118 11/15/19 24 09:11:35 [facility] DIASTOLIC BLOOD PRESSURE 68 024 09:11:35 [facility] PULSE OXIMETRY 96 11/15/2023 09:11:35 [facility] WEIGHT 145.4 11/15/2023 09:11:35 [facility] BMI 28kg/m2 11/15/2023 09:11:35 [facility] PAIN 5 11/15/2023 09:11:35 [facility] TEMPERATURE 98 11/15/2023 09:11:35 [facility] PULSE 84 11/15/2023 09:11:35 [facility] RESPIRATION 16 11/15/2023 09:11:35 [facility] SYSTOLIC BLOOD PRESSURE 105 09/13/19 24 11:34:36 [facility] DIASTOLIC BLOOD PRESSURE 70 024 11:34:36 [facility] PULSE OXIMETRY 94 09/13/2023 11:34:36 [facility] WEIGHT 148.5 09/13/2023 11:34:36 [facility] BMI 28kg/m2 09/13/2023 11:34:36 [facility] PAIN 8 09/13/2023 11:34:36 [facility] HEIGHT 61 09/13/2023 11:34:36 [facility] TEMPERATURE 97.9 09/13/2023 11:34:36 [facility] PULSE 76 09/13/2023 11:34:36 [facility] RESPIRATION 16 09/13/2023 11:34:36 [facility] Encounters Combined list of: 1) Encounters from Department of Veterans Affairs facilities going back up to thelast 18 months. 2) Encounters from the Department of Defense facilities going back up to 280 months. Location Location Details Encounter Type Encounter Number Reason For Visit Attending Provider ADM Date DC Date Status Disposition Source [facility] Outpatient [facility]counter [id number] 02/05 [facility] OFFICE O/P EST MOD 30-39 MIN [id number] Diagnos is: ICD-10- CM J44.9 Chronic obstruc tive pulmona ry disease , unspeci fied
SALVADOR FELIZ 02/08 [facility] Outpatient [facility]counter [id number] 02/08 [facility] OFFICE O/P EST HI 40-54 MIN [id number] Diagnos is: ICD-10- CM F43.12 Post-tr aumatic stress disorde r, chronic
LESLI ARNOLD SSICA E 02/11 [facility] Outpatient [facility]counter [id number] 02/11 [facility] OFF/OP EST MAY X REQ PHY/QHP [id number] Diagnos is: ICD-10- CM Z71.89 Other specifi ed evp general counsel ing<br/ > CARLA SERVIN 02/11 [facility] Q[facility]P OL DIG ASSMT&MGMT 11-20 [id number] Diagnos is: ICD-10- CM I48.0 Paroxys mal atrial fibrill ation<b r/> TERRI MACHADO 02/14 [facility] Outpatient Encounter [id number] 02/20 [facility] Out[facility] Encounter [id number] 02/22 [facility] Out[facility] Encounter [id number] 02/22 [facility] Out[facility] Encounter [id number] 03/01 [facility] Out[facility] Encounter [id number] 03/08 [facility] Out[facility] Encounter [id number] 03/12 [facility] Out[facility] Encounter [id number] 04/01 [facility] OFFICE O/P EST LOW 20-29 MIN [id number] Diagnos is: ICD-10- CM R42 Dizzine ss and giddine ss
ANTHONY,L TELMA MAU 04/01 [facility] Out[facility] Encounter [id number] 04/05 [facility] Out[facility] Encounter [id number] 04/09 [facility] Outpatient Encounter [id number] 04/09 [facility] EYE EXAM&TX ESTAB PT 1/>VST [id number] Diagnos is: ICD-10- CM H40.013 Open angle with borderl ine finding s, low risk, bilater al
SOLANGE PARKER 04/15 [facility] Out[facility] Encounter [id number] 04/15 [facility] FIT SPECTACLES MONOFOCAL [id number] Diagnos is: ICD-10- CM Z46.0 Encount er for fit/adj st of spectac les and contact lenses< br/> SHAI MOFFETT 04/16 [facility] Out[facility] Encounter [id number] 04/16 [facility] Outpatient Encounter [id number] 04/23 [facility] TRIM SKIN LESIONS 2 TO 4 [id number] Diagnos is: ICD-10- CM E08.9 Diabete s due to underly ing conditi on w/o complic ations< br/> Su SR 04/29 [facility] Out[facility] Encounter [id number] 04/30 [facility] Outpatient Encounter [id number] 04/30 [facility] [place] [id number] Diagnos is: ICD-10- CM H90.3 Sensori neural hearing loss, bilater al
Ramon ALMEIDA E 05/01 [facility] PT EVAL HIGH COMPLEX 45 MIN [id number] Diagnos is: ICD-10- CM H81.4 Vertigo of central origin< br/> JENNIFER YI 05/07 [facility] OFFICE O/P EST LOW 20-29 MIN [id number] Diagnos is: ICD-10- CM K21.00 Gastro- esophag eal reflux dis with esophag itis, without bleed<b r/> SALVADOR FELIZ 05/10 [facility] OFFICE O/P EST MOD 30-39 MIN [id number] Diagnos is: ICD-10- CM F43.12 Post-tr aumatic stress disorde r, chronic
LESLI ARNOLD SSICA E 05/13 [facility] Outpatient Encounter [id number] 05/13 [facility] [place] QNHP OL DIG ASSMT&MGMT 5-10 [id number] Diagnos is: ICD-10- CM Z04.89 Encount er for examina tion and observa tion for oth reasons
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< br/> JENNIFER YI 05/16 [facility] Outpatient Encounter [id number] 05/21 [facility] Out[facility] Encounter [id number] 06/03 [facility] OFF/OP EST MAY X REQ PHY/QHP [id number] Diagnos is: ICD-10- CM Z23 Encount er for immuniz ation<b r/> SAVANAH FRANCIS L 06/03 [facility] Outpatient Encounter [id number] 06/03 [facility] (631GE) HC PRO PHONE CALL 21-30 MIN [id number] Diagnos is: ICD-10- CM Z79.01 halfway (curren t) use of anticoa gulants
CALI NANCE 06/27 [facility]89[facility] Outpatient Encounter [id number] 07/01 [facility] Outpatient Encounter [id number] 07/22 [facility] HC PRO PHONE CALL 5-10 MIN [id number] Diagnos is: ICD-10- CM Z51.81 Encount er for therape utic drug level monitor ing<br/ > TERRI MACHADO 07/29 [facility] OFFICE O/P EST MOD 30-39 MIN [id number] Diagnos is: ICD-10- CM E08.9 Diabete s due to underly ing conditi on w/o complic ations< br/> SALVADOR FELIZ 08/09 [facility] (631GE) QNHP OL DIG ASSMT&MGMT 5-10 [id number] Diagnos is: ICD-10- CM Z04.89 Encount er for examina tion and observa tion for oth reasons
OSWALD,QUE N 08/13 [facility]89[facility] Outpatient Encounter [id number] 09/09 [facility] OFFICE O/P EST LOW 20 MIN [id number] Diagnos is: ICD-10- CM S33.6XX D Sprain of sacroil iac joint, subsequ ent encount er
SALVADOR FELIZ 09/13 [facility] Outpatient Encounter [id number] 09/17 [facility] THERAPEUTI C EXERCISES [id number] Diagnos is: ICD-10- CM S33.6XX S Sprain of sacroil iac joint, sequela
SIMARD,KOR RONNY ALBA 09/26 [facility] THERAPEUTI C EXERCISES [id number] Diagnos is: ICD-10- CM S33.6XX S Sprain of sacroil iac joint, sequela
SIMARD,KOR AILEENEY ALBA 10/02 [facility] Outpatient Encounter [id number] 10/03 [facility] EXTENDED [place]IS[place] FIELD XM [id number] Diagnos is: ICD-10- CM H40.013 Open angle with borderl ine finding s, low risk, bilater al
JENNIFERASKSOLANGE Ortega E 10/08 [facility] CMPTR OPHTH IMG OPTIC NERVE [id number] Diagnos is: ICD-10- CM H40.013 Open angle with borderl ine finding s, low risk, bilater al
SOLANGE PARKER 10/08 [facility] MANUAL THERAPY /> [facility] [id number] Diagnos is: ICD-10- CM S33.6XX S Sprain of sacroil iac joint, sequela
DARLING LOW 10/08 [facility] OFFICE O/P NEW MOD 45 MIN [id number] [id number] Diagnos is: ICD-10- CM M54.59 Other low back pain
JOCY TREVIÑO RA 10/09 [facility] Outpatient Encounter [id number] 10/14 [facility] THERAPEUTI C EXERCISES [id number] Diagnos is: ICD-10- CM S33.6XX S Sprain of sacroil iac joint, sequela
DARLING LOW ALBA [facility] [id number] [facility] Out[facility] Encounter [id number] 10/17 [facility] MANUAL THERAPY 1/> [facility] [id number] Diagnos is: ICD-10- CM M54.59 Other low back pain
JOCY TREVIÑO RA 10/20 [facility] MECHANICAL TRACTION THERAPY [id number] Diagnos is: ICD-10- CM M25.552 Pain in left hip<br/ > JOCY TREVIÑO RA 10/22 [facility] SELF CARE MNGMENT TRAINING [id number] [id number] Diagnos is: ICD-10- CM S33.6XX S Sprain of sacroil iac joint, sequela
DARLING LOW ALBA 10/23 [facility] DIAB MANAGE TRN PER INDIV [id number] Diagnos is: ICD-10- CM E08.9 Diabete s due to underly ing conditi on w/o complic ations< br/> MODESTA HERZOGIE P 10/27 [facility] MECHANICAL TRACTION THERAPY [id number] Diagnos is: ICD-10- CM M54.59 Other low back pain
JOCY TREVIÑO RA 10/27 [facility] MANUAL THERAPY 1/> [facility] [id number] Diagnos is: ICD-10- CM M54.59 Other low back pain
JOCY TREVIÑO RA 10/29 [facility] MECHANICAL TRACTION THERAPY [id number] Diagnos is: ICD-10- CM M54.59 Other low back pain
JOCY TREVIÑO RA 11/07 [facility] THERAPEUTI C EXERCISES [id number] [id number] Diagnos is: ICD-10- CM S33.6XX S Sprain of sacroil iac joint, sequela
DARLING LOW 11/13 [facility] OFFICE O/P EST LOW 20 MIN [id number] Diagnos is: ICD-10- CM K21.00 Gastro- esophag eal reflux dis with esophag itis, without bleed<b r/> SALVADOR FELIZ 11/14 [facility] Outpatient Encounter [id number] 11/15 [facility] DIAB MANAGE TRN PER INDIV [id number] Diagnos is: ICD-10- CM E08.9 Diabete s due to underly ing conditi on w/o complic ations< br/> MODESTA HERZOG P 11/17 [facility] Encounter [id number] 11/18 [facility] Outpatient Encounter [id number] 11/19 [facility] Encounter [id number] 11/24 [facility] Outpatient Encounter [id number] 11/26 [facility] Out[facility] Encounter [id number] 11/26 [facility] MECHANICAL TRACTION THERAPY [id number] Diagnos is: ICD-10- CM M54.59 Other low back pain
JOCY TREVIÑO RA 11/27 [facility] PSYTX W PT 30 MINUTES [id number] Diagnos is: ICD-10- CM F43.12 Post-tr aumatic stress disorde r, chronic
LO HERRING 11/27 [facility] GAIT TRAINING THERAPY [id number] Diagnos is: ICD-10- CM S33.6XX S Sprain of sacroil iac joint, sequela
DARLING LOW 12/04 [facility] MECHANICAL TRACTION THERAPY [id number] Diagnos is: ICD-10- CM M54.59 Other low back pain
JOCY TREVIÑO RA 12/04 [facility] MTMS BY PHARM ADDL 15 MIN [id number] Diagnos is: ICD-10- CM E08.9 Diabete s due to underly ing conditi on w/o complic ations< br/> GDPATTIALBABO A 12/08 [facility] Out[facility] Encounter [id number] 12/08 [facility] Out[facility] Encounter [id number] 12/09 [facility] Encounter [id number] 12/10 [facility] Out[facility] Encounter [id number] 12/11 [facility] DENTAL PANORAMIC IMAGE [id number] Diagnos is: ICD-10- CM K08.409 Partial loss of teeth, unspeci fied cause, unspeci fied class<b r/> ANGELA GREWAL, CTORIA J 12/11 [facility] GROUP PSYCHOTHER APY [id number] Diagnos is: ICD-10- CM F43.12 Post-tr aumatic stress disorde r, chronic
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
JENNIFER DAMON 12/16 [facility] HC PRO PHONE CALL 11-20 MIN [id number] Diagnos is: ICD-10- CM F41.9 Anxiety disorde r, unspeci fied
LABELNICANORKE SIMONE BO 12/18 [facility] GROUP PSYCHOTHER APY [id number] Diagnos is: ICD-10- CM F43.12 Post-tr aumatic stress disorde r, chronic
WEISMOORE, LO 12/22 [facility] Out[facility] Encounter [id number] 12/29 [facility] Outpatient Encounter [id number]/30 [facility] PSYTX W PT 30 MINUTES [id number] Diagnos is: ICD-10- CM F33.8 Other recurre nt depress garcia disorde rs
POZZETTO,S IMONA 01/05 [facility] GROUP PSYCHOTHER APY [id number] Diagnos is: ICD-10- CM F43.12 Post-tr aumatic stress disorde r, chronic
WEISMOORE, LO 01/05 [facility] Out[facility] Encounter [id number] 01/06 [facility] PSYTX W PT 30 MINUTES [id number] Diagnos is: ICD-10- CM F43.12 Post-tr aumatic stress disorde r, chronic
Maria De Jesus MADISON IMONA 01/08 [facility] Out[facility] Encounter [id number] 01/09 [facility] Out[facility]counter [id number] 01/13 [facility] Out[facility] Encounter [id number] 01/14 [facility] BRIEF ASSESSMENT [id number] Diagnos is: ICD-10- CM K08.409 Partial loss of teeth, unspeci fied cause, unspeci fied class<b r/> ANGELA GREWAL, CTORIA J 01/15 [facility] GROUP PSYCHOTHER APY [id number] Diagnos is: ICD-10- CM F43.12 Post-tr aumatic stress disorde r, chronic
LO HERRING 01/19 [facility] Out[facility] Encounter [id number] 01/20 [facility] Out[facility] Encounter [id number] 01/21 [facility] ADJUNCTIVE PROCEDURE [id number] Diagnos is: ICD-10- CM K08.409 Partial loss of teeth, unspeci fied cause, unspeci fied class<b r/> BAEGER DAFFNER, CTORIA J 01/21 [facility] Outpatient Encounter [id number] 01/23 [facility] GROUP PSYCHOTHER APY [id number] Diagnos is: ICD-10- CM F43.12 Post-tr aumatic stress disorde r, chronic
WEISMOORE, 01/26 [facility] GROUP PSYCHOTHER APY [id number] Diagnos is: ICD-10- CM F43.12 Post-tr aumatic stress disorde r, chronic
WEISMOORE, 02/02 [facility] Outpatient Encounter [id number] 02/09 [facility] GROUP PSYCHOTHER APY [id number] Diagnos is: ICD-10- CM F43.12 Post-tr aumatic stress disorde r, chronic
WEISMOORE, 02/09 [facility] REMOVABLE PROSTHODON TIC PROC [id number] Diagnos is: ICD-10- CM K08.123 Complet e loss of teeth due to periodo ntal dis, class III<br/ > BAEGER DAFFNER, CTORIA J 02/09 [facility] Outpatient Encounter [id number] 02/13 [facility] ADJUNCTIVE PROCEDURE [id number] Diagnos is: ICD-10- CM K08.123 Complet e loss of teeth due to periodo ntal dis, class III<br/ > ANGELA GREWAL, CTORIA J 02/16 [facility] GROUP PSYCHOTHER APY [id number] Diagnos is: ICD-10- CM F43.12 Post-tr aumatic stress disorde r, chronic
RICA OROZCO M 02/16 [facility] HC PRO PHONE CALL 21-30 MIN [id number] Diagnos is: ICD-10- CM F51.05 Insomni a due to other mental disorde r
LABELJENNIFER VICK 02/18 [facility] GROUP PSYCHOTHER APY [id number] Diagnos is: ICD-10- CM F43.12 Post-tr aumatic stress disorde r, chronic
LO HERRING 02/23 [facility] OFFICE O/P EST SF 10 MIN [id number] Diagnos is: ICD-10- CM L29.9 Pruritu s, unspeci fied
SALVADOR FELIZ 02/27 [facility] GROUP PSYCHOTHER APY [id number] Diagnos is: ICD-10- CM F43.12 Post-tr aumatic stress disorde r, chronic
WEISMRASHARDELO 03/02 [facility] Out[facility] Encounter [id number] 03/05 [facility] Outpatient Encounter [id number] 03/06 [facility] Outpatient Encounter [id number] 03/06 [facility] GROUP PSYCHOTHER APY [id number] Diagnos is: ICD-10- CM F43.12 Post-tr aumatic stress disorde r, chronic
LO HERRING 03/09 [facility] Outpatient Encounter [id number] 03/10 [facility] Outpatient Encounter [id number] 03/11 [facility] Outpatient Encounter [id number] 03/16 [facility] Outpatient Encounter [id number] 03/19 [facility] GROUP PSYCHOTHER APY [id number] 1. Diagnos is: ICD-10- CM F43.12 Post-tr aumatic stress disorde r, chronic
LO HERRING 03/23 [facility] GROUP PSYCHOTHER APY [id number] Diagnos is: ICD-10- CM F43.12 Post-tr aumatic stress disorde r, chronic
LO HERRING 03/30 [facility] OFFICE O/P EST SF 10 MIN [id number] Diagnos is: ICD-10- CM J30.9 Allergi c rhiniti s, unspeci fied
SALVADOR FELIZ 04/06 [facility] OFF/OP EST DECEMBER X REQ PHY/QHP [id number] Diagnos is: ICD-10- CM R05.1 Acute cough<b r/> PICTanaCARLA H 04/06 [facility] Outpatient Encounter [id number] 04/06 [facility] QNHP OL DIG ASSMT&MGMT [id number]- [id number] Diagnos is: ICD-10- CM U07.1 COVID-1 9
Jenny FARAH 04/07 [facility] Outpatient Encounter [id number] 04/07 [facility] QNHP OL DIG ASSMT&MGMT 5-10 [id number] Diagnos is: ICD-10- CM I48.0 Paroxys mal atrial fibrill ation<b r/> HAYLEE MCKEON 04/08 [facility] Outpatient Encounter [id number] 04/13 [facility] HC PRO PHONE CALL 21-30 MIN [id number] Diagnos is: ICD-10- CM F41.9 Anxiety disorde r, unspeci fied
LABELLA,KE RI BO 04/23 [facility] OFFICE O/P EST HI 40 MIN [id number] Diagnos is: ICD-10- CM F43.12 Post-tr aumatic stress disorde r, chronic
SALVADOR FELIZ 05/08 [facility] GROUP PSYCHOTHER APY [id number] Diagnos is: ICD-10- CM F43.12 Post-tr aumatic stress disorde r, chronic
LO HERRING 05/11 [facility] Outpatient Encounter [id number] 1.05/18 [facility] GROUP PSYCHOTHER APY [id number] Diagnos is: ICD-10- CM F43.12 Post-tr aumatic stress disorde r, chronic
LO HERRING 05/18 [facility] Outpatient Encounter [id number] 1.05/20 [facility] Outpatient Encounter [id number] 1.05/22 [facility] Outpatient Encounter [id number] 05/25 [facility] GROUP PSYCHOTHER APY [id number] Diagnos is: ICD-10- CM F43.12 Post-tr aumatic stress disorde r, chronic
WEISMOORE, LO 05/25 [facility] HC PRO PHONE CALL 5-10 MIN [id number] 1. Diagnos is: ICD-10- CM F43.12 Post-tr aumatic stress disorde r, chronic
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
JENNIFER DAMON 06/08 [facility] GROUP PSYCHOTHER APY [id number] Diagnos is: ICD-10- CM F43.12 Post-tr aumatic stress disorde r, chronic
WEISMOORE, LO 06/08 [facility] GROUP PSYCHOTHER APY [id number] Diagnos is: ICD-10- CM F43.12 Post-tr aumatic stress disorde r, chronic
WEISMOORE, LO 06/15 [facility] PSYTX W PT 45 MINUTES [id number] Diagnos is: ICD-10- CM F43.12 Post-tr aumatic stress disorde r, chronic
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, right eye<br/ > SOLANGE PARKER 07/13 [facility] FIT SPECTACLES MONOFOCAL [id number] Diagnos is: ICD-10- CM Z46.0 Encount er for fit/adj st of spectac les and contact lenses< br/> SOLANGE PARKER E 07/13 [facility] Out[facility] Encounter [id number] 1.07/13 [facility] Out[facility] Encounter [id number] 07/15 [facility] Outpatient Encounter [id number] 07/20 [facility] PSYTX W PT 45 MINUTES [id number] Diagnos is: ICD-10- CM F43.12 Post-tr aumatic stress disorde r, chronic
WEISMOORE, LO 07/20 [facility] HC PRO PHONE CALL 21-30 MIN [id number] [id number] Diagnos is: ICD-10- CM F41.9 Anxiety disorde r, unspeci fied
LABELLA,KE RI BO 07/22 [facility] Outpatient Encounter [id number] 1.07/24 [facility] GROUP PSYCHOTHER APY [id number] Diagnos is: ICD-10- CM F43.12 Post-tr aumatic stress disorde r, chronic
WEISMOORE, LO 07/27 [facility] Social History Combined list of available smoking, tobacco, and other social history from Department of Defense and Veterans Affairs facilities. Social History Type Response Date Comment Source Tobacco smoking status [facility] VA-TOBACCO FORMER USER 04/06/2024 [facility] History of tobacco use VA-TOBACCO QUIT 15 YRS OR MORE 04/06/2024 [facility] History of tobacco use VA-TOBACCO FORMER USER 02/08/2023 [facility] History of tobacco use VA-TOBACCO FORMER USER 03/06/2022 [facility] History of tobacco use VA-TOBACCO NEVER USED 04/04/2021 [facility] History of tobacco use VA-TOBACCO NEVER USED 05/03/2020 [facility] History of tobacco use VA-TOBACCO QUIT 5 TO < 15 YRS 02/25/2019 [facility] History of tobacco use QUIT TOBACCO USE 1-7 YEARS AGO 04/04/2018 [facility] [place] [facility] History of tobacco use QUIT TOBACCO USE 1-7 YEARS AGO 10/28/[facility] History of tobacco use QUIT TOBACCO USE 1-7 YEARS AGO 01/22/2017 [facility] [place] [facility] History of tobacco use QUIT TOBACCO USE 1-7 YEARS AGO 07/18/2016 [facility] [place] [facility] History of tobacco use QUIT TOBACCO USE 1-7 YEARS AGO 01/10/2016 [facility] [place] [facility] History of tobacco use QUIT TOBACCO USE 1-7 YEARS AGO 10/13/2015 [facility] [place] [facility] History of tobacco use QUIT TOBACCO USE > 7 YEARS AGO 10/19/2014 [facility] [place] [facility] History of tobacco use QUIT TOBACCO USE IN PAST YEAR 01/02/2014 [facility] [place] [facility] History of tobacco use CURRENT SMOKER 06/18/2013 6 cigarettes qd [facility] [place] [facility] History of tobacco use V1-PT DECLINES TOBACCO CESSATION MEDS 12/24/2012 [facility] [place] [facility] History of tobacco use QUIT TOBACCO USE IN PAST YEAR 07/15/2012 [facility] [place] [facility] History of tobacco use QUIT TOBACCO USE IN PAST YEAR 01/25/2012 [facility] [place] [facility] History [facility] tobacco use CURRENT SMOKER 09/28/2011 5 cigarettes a day [facility] [place] [facility] History of tobacco use V1-PT READY TO QUIT TOBACCO USE 06/15/2011 [facility] [place] [facility] History [facility] tobacco use V1-PT RECEIVES TOBACCO CESS MEDS OUTSIDE 04/13/2011 [facility] [place] [facility] History of tobacco use QUIT TOBACCO USE IN PAST YEAR 10/16/2010 [facility] [place] [facility] History of tobacco use V1-PT READY TO QUIT TOBACCO USE 05/12/2010 [facility] [place] [facility] History of tobacco use CURRENT SMOKER 05/12/2010 3 cigarettes a day [facility] [place] [facility] History of tobacco use LIFETIME NON-TOBACCO USER 12/14/2008 [facility] History of tobacco use QUIT TOBACCO USE IN PAST YEAR 06/26/2007 Pt.quit about 2 months ago. [facility] History of tobacco use CURRENT SMOKER 06/10/2007 Pt.still smoking but is quitting this week with the aid of nicotine gum. [facility] History of tobacco use CURRENT SMOKER 04/08/2007 Pt. smokes 6 cigarettes a day and does not want to quit at this time. [facility] History of tobacco use CURRENT NON-SMOKER 10/27/2004 [facility] History of tobacco use CURRENT SMOKER 06/05/2004 1 CIG SOCIALLY [facility] History of tobacco use CURRENT NON-SMOKER 04/30/2003 stopped >20 yrs ago; 10pack yr hx [facility] History of tobacco use LIFETIME NON-SMOKER 12/19/2001 [facility] History of tobacco use CURRENT NON-SMOKER 06/18/2001 [facility] History of tobacco use CURRENT SMOKER 07/29/2000 [facility] Plan of Care List of future care activities from Department of [facility] Affairs facilities. Additional future care activities may be listed in the Assessment and Plan section. Date/Time Care Activity Care Activity Detail Facili ty 08/07/2024 AMBULATORY - MEDICINE AMBULATORY - MEDICI [facility] 08/07/2024 AMBULATORY - NONE AMBULATORY - NONE [facility] [place] [facility] 09/23/2024 AMBULATORY - PSYCHIATRY AMBULATORY - PSYC HIATRY [facility] [place] [facility] 10/02/2024 AMBULATORY - MEDICINE AMBULATORY - [facility] [place] [facility] [place] [facility] 10/06/2024 AMBULATORY - MEDICINE AMBULATORY - [facility]ICI [place] [facility] [place] [facility] 11/25/2024 AMBULATORY - MEDICINE AMBULATORY - [facility]IC[facility] [place] [facility] [place] [facility] 01/04/2025 AMBULATORY - MEDICINE AMBULATORY - [facility]ICI [place] [facility] [place] [facility] 06/26/2024 Consult Order COMMUNITY CARE-ACUPUNCTURE Cons Beef Specialist's Choice [facility] [place] [facility] 07/20/2024 Consult Order COMMUNITY CARE-P ULMONARY Cons Beef Specialist's Choice [facility] [place] [facility]
--- OUTSIDE RECORDS SUMMARY | 2024-08-04 16:41 | XMS_ITS ---
Author Name [facility] [facility] [place] [facility] [place] [facility] [place] Address [address] [place] [address] Care Team Providers Care Kinesiologist Name Role Phone CADEN FELIZ Primary Care [...] Policy Shelton's Name Patient's Relationship to Policy Shelton AARP MEDICARE SUPPLEMEN MARCIA PLAN I Aug 19, 2019 PLAN I [id number] MEEK,GR ICEL PATIENT [employer] OPTIONS MEDICARE SUPPLEMEN MARCIA PLANM Y Aug 19, 2019 PLANMY [id number] MEEK,GR ICEL PATIENT [employer] HE[employer] OPTIONS MEDICARE SUPPLEMEN MARCIA AARP MEDIC ARE SUPPL Aug 19, 2019 PLAN MY [id number] [phone] MEEK,GR ICEL PATIENT AARP INS MEDICARE SUPPLEMEN MARCIA PLANM Y Aug 19, 2019 PLANMY [id number] MEEK,GR ICEL PATIENT AARP MED SUPP MEDICARE SUPPLEMEN MARCIA Jul 19, 2010 PLANMY [id number] [phone] MEEK,GR ICEL PATIENT MEDICARE (WNR) MEDICARE () PART B Aug 19, 2008 PART B [id number] [phone] EMEK,GR ICEL PATIENT MEDICARE (WNR) MEDICARE () PART B Aug 19, 2008 PART B [id number] [phone] MEEK,GR ICEL PATIENT MEDICARE (WNR) MEDICARE () PART B Aug 19, 2008 PART B [id number] [phone] MEEK,GR ICEL PATIENT MEDICARE (WNR) MEDICARE () PART B Aug 19, 2008 PART B [id number] [phone] MEEK,GR ICEL PATIENT MEDICARE (WNR) MEDICARE () PART B Aug 19, 2008 PART B [id number] [phone] MEEK,GR ICEL PATIENT MEDICARE (WNR) MEDICARE () PART B Aug 19, 2008 PART B [id number] [phone] MEEK,GR ICEL PATIENT MEDICARE (WNR) MEDICARE () PART B Aug 19, 2008 PART B [id number] [phone] MEEK,GR ICEL PATIENT MEDICARE (WNR) MEDICARE () PART A December 18, 2003 PART A [id number] MEEK,GR ICEL PATIENT MEDICARE (WNR) MEDICARE () PART A December 18, 2003 PART A [id number] MEEK,GR ICEL PATIENT MEDICARE (WNR) MEDICARE () PART A December 18, 2003 PART A [id number] [phone] MEEK,GR ICEL PATIENT MEDICARE (WNR) MEDICARE () PART A December 18, 2003 PART A [id number] MEEK,GR ICEL PATIENT MEDICARE (WNR) MEDICARE () PART A December 18, 2003 PART A [id number] [phone] MEEK,GR ICEL PATIENT MEDICARE (WNR) MEDICARE () PART A December 18, 2003 PART A [id number] [phone] SABINE MEEK PATIENT MEDICARE (WNR) MEDICARE (M) PART A December 18, 2003 PART A [id number] SABINE MEEK PATIENT Selected Encounter This section includes the information on record at [place] for the Encounter. Date/Time Encounter Type Encounter Description Reason Provider Source Dec 05, 2023 09:00 AM GAIT TRAINING THERAPY PHYSICAL THERAPY ICD-10-CM S33.6XXS Sprain of sacroiliac joint, SALLY Barton IHE Encounter Template Text not used by [place] Assessments - Encounter Diagnoses This section includes the primary and secondary diagnoses documented for the Encounter. Date/Time Primary/Secondary Diagnosis Diagnosis Name Provider Source Dec 05, 2023 04:03 PM PRIMARY Sprain of sacroiliac joint, SALLY Barton [place] [facility] [place] [facility] Plan of Treatment: Future Appointments (+ 6 months) and Future Tests (+/- 45 days) The Plan of Treatment section includes future care activities for the patient [facility] [place] [facility] This section includes future appointments and future orders which are active, pending or scheduled. Future Appointments This section includes appointments that were scheduled to occur 6 months from the date of the Encounter, up to a maximum of 20 appointments. The data comes from all [place] treatment facilities. Appointment Date/Time Appointment Type Appointme nt Facility Name Dec 09, 2023 09:30 AM AMBULATORY - MEDICINE [facility] [place] [facility] Dec 09, 2023 11:30 AM AMBULATORY - MEDICINE [place] [facility] [place] [facility] Dec 12, 2023 11:30 AM AMBULATORY - NONE [place] [facility] [place] [facility] Dec 16, 2023 01:00 PM AMBULATORY - PSYCHIATRY [place] [facility] [place] [facility] December 23, 2023 01:00 PM AMBULATORY - PSYCHIATRY [place] [facility] [place] [facility] December 31, 2023 09:00 AM AMBULATORY - MEDICINE [place] [facility] [place] [facility] January 06, 2024 11:00 AM AMBULATORY - PSYCHIATRY [place] [facility] [place] [facility] January 06, 2024 01:00 PM AMBULATORY - PSYCHIATRY [facility] [place] [facility] January 07, 2024 08:00 AM AMBULATORY - [...] - NONE [facility] [place] [facility] Feb 17, 2024 12:30 PM AMBULATORY - NONE [facility] [place] [facility] Feb 17, 2024 01:00 PM AMBULATORY - PSYCHIATRY [facility] [place] [facility] Lab Results: +/- 30 days of the [...] Range Comment Nov 15, 2023 10:10 AM [place] [facility] [place] [facility] MICROALBUMIN CREATININE RATIO PANEL Specimen Type: URINE No comment entered. Ordering Provider: WALE FELIZ Report Released Date/Time: Nov 15, 2023 09:56 AM Reporting Lab: [place] [facility] [place] [facility] [address] [address] Performing Lab: [facility] [address] [facility] [address] MICROALBUMIN/C REATININE RATIO canc mg/g 0-29.9 MICROALBUMIN,Q UANTITATIVE < 0.5 mg/dL RR UNAVAIL CREATININE URINE 34.74 mg/dL Nov 15, 2023 10:10 AM [facility] VITAMIN B12 Specimen Type: SERUM No comment entered. Ordering Provider: WALE FELIZ Report Released Date/Time: Nov 15, 2023 09:56 AM Reporting Lab: [address] [address] Performing Lab: [address] [address] VITAMIN B12 806 pg/mL 200-900 Nov 15, 2023 10:10 AM [facility] HEMOGLOBIN A1C PANEL Specimen Type: BLOOD No comment entered. Ordering Provider: WALE FELIZ Report Released Date/Time: Nov 15, 2023 09:56 AM Reporting Lab: [address] [address] Performing Lab: [address] [address] HEMOGLOBIN A1C 6.1 H 4.0-5.6 Nov 15, 2023 10:10 AM [facility] VITAMIN D (25-OH) Specimen Type: SERUM No comment entered. Ordering Provider: WALE FELIZ Report Released Date/Time: Nov 15, 2023 09:56 AM Reporting Lab: [address] [address] Performing Lab: [address] [address] VITAMIN D (25-OH) 54 ng/mL H 20-50 Nov 15, 2023 10:10 AM [facility] BASIC METABOLIC PANEL (non-fasting) Specimen Type: SERUM No comment entered. Ordering Provider: WALE FELIZ Report Released Date/Time: Nov 15, 2023 09:56 AM Reporting Lab: [address] [address] Performing Lab: [address] [place] [address] UREA NITROGEN 6 mg/dL L 7-25 GLUCOSE [...] and tobacco- related health factors from the [place] facility where the Encounter took place. Current Smoking Status This section includes the most current smoking, or tobacco-related health factor, from the [place] facility where the Encounter took place. Date/Time Current Smoking Status Comment [facility] Feb 08, 2023 10:00 AM VA-TOBACCO [facility] Tobacco Use History This section includes a history of the smoking, or tobacco-related health factors, that were collected on or before the date of the Encounter. The data comes from the [place] facility where the Encounter took place. Date/Time Smoking Status/Tobac co Use Comment Facility Feb 08, 2023 10:00 AM VA-TOBACCO QUIT 15 YRS OR MORE [place] [facility] [place] [facility] Mar 06, 2022 02:30 PM VA-TOBACCO FORMER USER [facility] [facility] Mar 06, 2022 02:30 PM VA-TOBACCO QUIT 15 YRS OR MORE [facility] [place] [facility] Apr 04, 2021 10:28 AM VA-TOBACCO NEVER USED [facility] [place] [facility] May 03, 2020 02:00 PM VA-TOBACCO NEVER USED [facility] [place] [facility] Feb 25, 2019 08:14 AM VA-TOBACCO FORMER USER [facility] [place] [facility] Feb 25, 2019 08:14 AM VA-TOBACCO QUIT 5 TO < 15 YRS [facility] [place] [facility] Apr 04, 2018 10:41 AM QUIT TOBACCO USE 1-7 YEARS AGO [facility] [place] [facility] Oct 28, 2017 10:18 AM QUIT TOBACCO USE 1-7 YEARS AGO [facility] [place] [facility] Jan 22, 2017 01:08 PM QUIT TOBACCO USE 1-7 YEARS AGO [place] [facility] [place] [facility] Jul 18, 2016 01:34 PM QUIT TOBACCO USE 1-7 YEARS AGO [place] [facility] [facility] January 10, 2016 10:32 AM QUIT TOBACCO USE 1-7 YEARS AGO [place] [facility] [place] [facility] Oct 13, 2015 11:05 AM QUIT TOBACCO USE 1-7 YEARS AGO [place] [facility] [place] [facility] Oct 19, 2014 01:53 PM QUIT TOBACCO USE > 7 YEARS AGO [place] [facility] [place] [facility] January 02, 2014 01:30 AM QUIT TOBACCO USE IN PAST YEAR [place] [facility] [place] [facility] Jun 18, 2013 09:00 AM CURRENT SMOKER 6 cigarettes qd [facility] [place] [facility] Jun 18, 2013 09:00 AM V1-PT DECLINES TOBACCO CESSATION MEDS [facility] [place] [facility] Jun 18, 2013 09:00 AM V1-PT NOT INTERESTED IN QUIT TOBACCO USE [facility] [place] [facility] December 24, 2012 10:51 AM V1-PT DECLINES REF TO TOBACCO CESS PRGM [facility] [place] [facility] December 24, 2012 10:51 AM V1-PT DECLINES TOBACCO CESSATION MEDS [facility] [facility] December 24, 2012 10:51 AM V1-PT THINKING ABOUT QUIT TOBACCO USE [facility] [place] [facility] Jul 15, 2012 10:19 AM QUIT TOBACCO USE IN PAST YEAR [place] [facility] [place] [facility] Jan 25, 2012 05:02 PM QUIT TOBACCO USE IN PAST YEAR [facility] [place] [facility] Sep 28, 2011 10:09 AM CURRENT SMOKER 5 cigarettes a day [place] [facility] [place] [facility] Jun 15, 2011 02:23 PM V1-PT DECLINES REF TO TOBACCO CESS PRGM [place] [facility] [place] [facility] Jun 15, 2011 02:23 PM V1-PT READY TO QUIT TOBACCO USE [facility] [place] [place] [facility] Apr 13, 2011 10:31 AM V1-PT DECLINES REF TO TOBACCO CESS PRGM [place] [facility] [place] [facility] Apr 13, 2011 10:31 AM V1-PT RECEIVES TOBACCO CESS MEDS OUTSIDE [facility] Apr 13, 2011 10:31 AM V1-PT THINKING ABOUT QUIT TOBACCO USE [facility] Oct 16, 2010 08:52 AM QUIT TOBACCO USE IN PAST YEAR [facility] May 12, 2010 02:08 PM V1-PT DECLINES REF TO TOBACCO CESS PRGM [facility] May 12, 2010 02:08 PM V1-PT READY TO QUIT TOBACCO USE [facility] May 12, 2010 12:45 PM CURRENT SMOKER 3 cigarettes a day [facility] Radiology Reports: +/- 30 days of [...] the Encounter. The data comes from all [facility] facilities. Date/Time Radiology Report Provider Source Nov 15, 2023 10:22 AM ELBOW 3 OR MORE VIEWS(LEFT): PEBBLES MEEK [id number] F Exm Date: NOV 15, 2023@10:22 Req Phys: CADEN FELIZ Loc: CWM/NO/PACT 6 [place]Req'g Loc[place] [facility] [place] [facility] 1 Service: Unknown (Case [id number] COMPLETE) ELBOW 3 OR MORE VIEWS(LEFT) (RAD Detailed) CPT:88513 Reason for Study: pain and swelling left elbow Clinical History: 73yo woman with h/o traumatic injury in 20s, Report Status: Verified Date Reported: NOV 15, 2023 Date Verified: NOV 15, 2023 Multilith Operator E-Sig:/ES/NEMO RODRIGUEZ JR Report: Study: AP, lateral, [...] Primary Interpreting Staff: NEMO RODRIGUEZ JR, Radiologist (Multilith Operator) /NEMO WEISS JR [place] [facility] [place] [facility] Encounter Notes: All associated encounter notes This section contains the clinical notes associated to the Encounter. Date/Time Encounter Note(s) Provider Source Dec 05, 2023 04:03 PM PHYSICAL THERAPY DISCHARGE NOTE: LOCAL TITLE: PHYSICAL THERAPY DISCHARGE NOTE STANDARD TITLE: PHYSICAL THERAPY DISCHARGE NOTE DATE OF NOTE: DEC 05, 2023@16:03 ENTRY DATE: DEC 05, 2023@16:03:18 AUTHOR: SALLY LOW COSIGNER: URGENCY: STATUS: COMPLETED Patient identified by full name and date of DISCHARGE SUMMARY Initial Evaluation date: 09/26/23 Progress Note Date: n/a Treatment #: 6 Treatment time: 20min Diagnosis: sprain SI joint Provider: Isra TAMAYO Treatment Precautions: n/a S: It's going good, I'm doing the exercises some of them are getting easier O:Present status:IND with HEP, pain to L sided hip/buttock 2/10 managing pain around 2/10, pt looking forward to start using her dtr's basement which has a lot of cardio equipment, she is also excited to begin hiking again. Pt reporting she is not having as much of the radiating pain, pain remaining fairly much to glut region as of now Treatment since eval has consisted of : (x )Postural education (x )therapeutic exercise (x )range of motion (x )strength (x )home exercise instruction: PROGRESS CHECK: ROM: *Pain Lumbar flex: 100% pull to L glut Extension: 100% Lat flex: L SB NO PAIN Hip PROM WNL pain noted with hip flex to 105 mild pain to L glut (was at 90deg at eval), L hip ir tight 15deg on L, L hip er pain to groin MMT / Myotomes (R) (L) *pain Hip flex L2 5 4+ Knee flex L5: 5 5 Extension L3 5 5 Ankle DF L4 5 5 PF S1: 5 5 can heel/toe walk hip abd 5 4 mild pain Lumbar special tests (R) (L) LE Neural Tension Sitting slump (-) (+) SLR: (-) (+) Prone knee flex (-) (-) DAVID ` N/A + GOALS: 4 weeks 1.)Pt to report radicular complaints to be reduced by 75%- MET 2.) L hip strength 4+/5 to aid in negotiating stairs- MET 3.)Rx I with progression of HEP in 3 more visits- MET THERAPEUTIC EXERCISE: MINUTES: 8 -clamshells green band 2x10 - hip abd s/l green band 2x10 - side step squat with AA 2x10 green band HEP Access Code: [email or web address] URL: [email or web address] Date: 09/27/2023 Prepared by: [facility] GAIT TRAINING: MINUTES: 8 - Pt provided with/educated in use of trek poles for home, educated in proper adjustment and gait pattern for hiking with them, ambulated in clinic 25'x1 with poles SELF CARE MINUTES: 10 - education in importance of progressing exercises, provided with green and blue band for home progression - education in participation in low impact cardio 5-7 days/week Pt is appropriate for discharge due to: (x)goals met: (x)Pt able to continue with home program independently ( x)Pt is in agreement with plan to be discharged from PT /jeana/ SALLY LOW PT PHYSICAL THERAPIST Signed: 12/06/2023 10:20 SALLY LOW [facility]
--- OUTSIDE RECORDS SUMMARY | 2024-08-04 16:42 | XMS_ITS | Encounter Summary ---
Author Name [facility] [place] [place] Organization [facility] [place] Address [address] [place] [address] Care Team Providers Care Ranch Supervisor Name Role Phone CADEN FELIZ Primary Care [...] PLAN I Aug 19, 2019 PLAN I [id number] [phone] HARDING,GR ICEL PATIENT [employer] OPTIONS MEDICARE SUPPLEMEN MARCIA PLANM Y Aug 19, 2019 PLANMY [id number] HARDING,GR ICEL PATIENT [employer] OPTIONS MEDICARE SUPPLEMEN MARCIA AARP MEDIC ARE SUPPL Aug 19, 2019 PLAN MY [id number] HARDING,GR ICEL PATIENT AARP INS MEDICARE SUPPLEMEN MARCIA PLANM Y Aug 19, 2019 PLANMY [id number] HARDING,GR ICEL PATIENT AARP MED SUPP MEDICARE SUPPLEMEN MARCIA Jul 19, 2010 [facility] [id number] HARDING,GR ICEL PATIENT MEDICARE (WNR) MEDICARE () PART B Aug 19, 2008 PART B [id number] HARDING,GR ICEL PATIENT MEDICARE (WNR) MEDICARE () PART B Aug 19, 2008 PART B [id number] [phone] HARDING,GR ICEL PATIENT MEDICARE (WNR) MEDICARE () PART B Aug 19, 2008 PART B [id number] HARDING,GR ICEL PATIENT MEDICARE (WNR) MEDICARE () PART B Aug 19, 2008 PART B [id number] [phone] HARDING,GR ICEL PATIENT MEDICARE (WNR) MEDICARE () PART B Aug 19, 2008 PART B [id number] HARDING,GR ICEL PATIENT MEDICARE (WNR) MEDICARE () PART B Aug 19, 2008 PART B [id number] [phone] HARDING,GR ICEL PATIENT MEDICARE (WNR) MEDICARE () PART B Aug 19, 2008 PART B [id number] HARDING,GR ICEL PATIENT MEDICARE (WNR) MEDICARE () PART A December 18, 2003 PART A [id number] HARDING,GR ICEL PATIENT MEDICARE (WNR) MEDICARE () PART A December 18, 2003 PART A [id number] [phone] HARDING,GR ICEL PATIENT MEDICARE (WNR) MEDICARE () PART A December 18, 2003 PART A [id number] HARDING,GR ICEL PATIENT MEDICARE (WNR) MEDICARE () PART A December 18, 2003 PART A [id number] HARDING,GR ICEL PATIENT MEDICARE (WNR) MEDICARE () PART A December 18, 2003 PART A [id number] HARDING,GR ICEL PATIENT MEDICARE (WNR) MEDICARE (M) PART A December 18, 2003 PART A [id number] SABINE HARDING ICEJacky PATIENT MEDICARE (WNR) MEDICARE (M) PART A December 18, 2003 PART A [id number] SABINE HARDING PATIENT Selected Encounter This section includes the information on record at [place] for the Encounter. 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 This section includes future appointments and future orders which are active, pending or scheduled. Future Appointments This section includes appointments that were scheduled to occur 6 months from the date of the Encounter, up to a maximum of 20 appointments. The data comes from all [place] treatment facilities. Appointment Date/Time Appointment Type Appointme nt Facility Name Dec 12, 2023 11:30 AM AMBULATORY - NONE [place] [facility] [place] [facility] Dec 16, 2023 01:00 PM AMBULATORY - PSYCHIATRY [facility] [place] [facility] December 23, 2023 01:00 PM AMBULATORY - PSYCHIATRY [facility] [place] [facility] December 31, 2023 09:00 AM AMBULATORY - MEDICINE [facility] [place] [facility] January 06, 2024 11:00 AM AMBULATORY - PSYCHIATRY [facility] [place] [facility] January 06, 2024 01:00 PM AMBULATORY - PSYCHIATRY [facility] [place] [facility] January 07, 2024 08:00 AM AMBULATORY - MEDICINE [place] [facility] [place] [facility] January 09, 2024 09:00 AM AMBULATORY - [...] PSYCHIATRY [facility] [place] [facility] Feb 21, 2024 08:30 AM AM[facility]UL[facility]INE [facility] [place] [facility] Feb 24, 2024 01:00 PM AMBULATORY - PSYCHIATRY [facility] [place] [facility] Lab Results: +/- 30 days of the [...] Range Comment Nov 15, 2023 10:10 AM [facility] [place] [facility] VITAMIN B12 Specimen Type: SERUM No comment entered. Ordering Provider: WALE FELIZ Report Released Date/Time: Nov 15, 2023 09:56 AM Reporting Lab: [place] [facility] [place] [address] [address] Performing Lab: [facility] [address] [address] VITAMIN B12 806 pg/mL 200-900 Nov 15, 2023 10:10 AM [facility] MICROALBUMIN CREATININE RATIO PANEL Specimen Type: URINE No comment entered. Ordering Provider: WALE FELIZ Report Released Date/Time: Nov 15, 2023 09:56 AM Reporting Lab: [facility] [address] [facility] [address] Performing Lab: [address] [address] MICROALBUMIN/C REATININE RATIO canc mg/g 0-29.9 MICROALBUMIN,Q UANTITATIVE < 0.5 mg/dL RR UNAVAIL CREATININE URINE 34.74 mg/dL Nov 15, 2023 10:10 AM [facility] HEMOGLOBIN A1C PANEL Specimen Type: BLOOD No comment entered. Ordering Provider: WALE FELIZ Report Released Date/Time: Nov 15, 2023 09:56 AM Reporting Lab: [address] [address] Performing Lab: [address] [address] HEMOGLOBIN A1C 6.1 H 4.0-5.6 Nov 15, 2023 10:10 AM [facility] VITAMIN D (25-OH) Specimen Type: SERUM No comment entered. Ordering Provider: WALE FELIZ Report Released Date/Time: Nov 15, 2023 09:56 AM Reporting Lab: [address] [address] Performing Lab: [address] [address] VITAMIN D (25-OH) 54 ng/mL H 20-50 Nov 15, 2023 10:10 AM [facility] BASIC METABOLIC PANEL (non-fasting) Specimen Type: SERUM No comment entered. Ordering Provider: WALE FELIZ Report Released Date/Time: Nov 15, 2023 09:56 AM Reporting Lab: [address] [address] Performing Lab: [address] [address] UREA NITROGEN 6 mg/dL L 7-25 GLUCOSE [...] and tobacco- related health factors from the [place] facility where the Encounter took place. Current Smoking Status This section includes the most current smoking, or tobacco-related health factor, from the [place] facility where the Encounter took place. Date/Time Current Smoking Status Comment [facility] Feb 08, 2023 10:00 AM VA-TOBACCO FORMER USER [place] [facility] Tobacco Use History This section includes a history of the smoking, or tobacco-related health factors, that were collected on or before the date of the Encounter. The data comes from the [place] facility where the Encounter took place. Date/Time Smoking Status/Tobac co Use Comment Facility Feb 08, 2023 10:00 AM VA-TOBACCO QUIT 15 YRS OR MORE [facility] [place] [facility] Mar 06, 2022 02:30 PM VA-TOBACCO FORMER USER [facility] [place] [facility] Mar 06, 2022 02:30 PM VA-TOBACCO QUIT 15 YRS OR MORE [facility] [place] [facility] Apr 04, 2021 10:28 AM VA-TOBACCO NEVER USED [facility] [place] [facility] May 03, 2020 02:00 PM VA-TOBACCO NEVER USED [facility] [place] [facility] Feb 25, 2019 08:14 AM VA-TOBACCO FORMER USER [facility] [place] [facility] Feb 25, 2019 08:14 AM VA-TOBACCO QUIT 5 TO < 15 YRS [facility] [place] [facility] Apr 04, 2018 10:41 AM QUIT TOBACCO USE 1-7 YEARS AGO [facility] [place] [facility] Oct 28, 2017 10:18 AM QUIT TOBACCO USE 1-7 YEARS AGO [facility] [place] [facility] Jan 22, 2017 01:08 PM QUIT TOBACCO USE 1-7 YEARS AGO [place] [facility] [place] [facility] Jul 18, 2016 01:34 PM QUIT TOBACCO USE 1-7 YEARS AGO [facility] [place] [facility] January 10, 2016 10:32 AM QUIT TOBACCO USE 1-7 YEARS AGO [facility] [place] [facility] Oct 13, 2015 11:05 AM QUIT TOBACCO USE 1-7 YEARS AGO [facility] [place] [facility] Oct 19, 2014 01:53 PM QUIT TOBACCO USE > 7 YEARS AGO [facility] [place] [facility] January 02, 2014 01:30 AM QUIT TOBACCO USE IN PAST YEAR [facility] [place] [facility] Jun 18, 2013 09:00 AM CURRENT SMOKER 6 cigarettes qd [facility] Jun 18, 2013 09:00 AM V1-PT DECLINES TOBACCO CESSATION MEDS [facility] Jun 18, 2013 09:00 AM V1-PT NOT INTERESTED IN QUIT TOBACCO USE [facility] [place] [facility] December 24, 2012 10:51 AM V1-PT DECLINES REF TO TOBACCO CESS PRGM [facility] [place] [facility] December 24, 2012 10:51 AM V1-PT DECLINES TOBACCO CESSATION MEDS [facility] [place] [facility] December 24, 2012 10:51 AM V1-PT THINKING ABOUT QUIT TOBACCO USE [facility] [place] [facility] Jul 15, 2012 10:19 AM QUIT TOBACCO USE IN PAST YEAR [facility] [place] [facility] Jan 25, 2012 05:02 PM QUIT TOBACCO USE IN PAST YEAR [facility] [place] [place] [facility] Sep 28, 2011 10:09 AM CURRENT SMOKER 5 cigarettes a day [facility] [place] [facility] Jun 15, 2011 02:23 PM V1-PT DECLINES REF TO TOBACCO CESS PRGM [facility] [place] [facility] Jun 15, 2011 02:23 PM V1-PT READY TO QUIT TOBACCO USE [facility] [place] [facility] Apr 13, 2011 10:31 AM V1-PT DECLINES REF TO TOBACCO CESS PRGM [facility] Apr 13, 2011 10:31 AM V1-PT RECEIVES TOBACCO CESS MEDS OUTSIDE [facility] Apr 13, 2011 10:31 AM V1-PT THINKING ABOUT QUIT TOBACCO USE [facility] Oct 16, 2010 08:52 AM QUIT TOBACCO USE IN PAST YEAR [facility] May 12, 2010 02:08 PM V1-PT DECLINES REF TO TOBACCO CESS PRGM [facility] May 12, 2010 02:08 PM V1-PT READY TO QUIT TOBACCO USE [facility] May 12, 2010 12:45 PM CURRENT SMOKER 3 cigarettes a day [facility] Radiology Reports: +/- 30 days of the [...] the Encounter. The data comes from all [facility] facilities. Date/Time Radiology Report Provider Source Nov 15, 2023 10:22 AM ELBOW 3 OR MORE VIEWS(LEFT): ANNEMARIE HARDING [id number] -1950 F Exm Date: NOV 15, 2023@10:22 Req Phys: CADEN FELIZ Loc: CWM/NO/PACT 6 WH (Req'g Loc) Im Loc: [facility] 1 Service: Unknown (Case [id number] COMPLETE) ELBOW 3 OR MORE VIEWS(LEFT) (RAD Detailed) CPT:95220 Reason for Study: pain and swelling left elbow Clinical History: 73yo woman with h/o traumatic injury in 20s, Report Status: Verified Date Reported: NOV 15, 2023 Date Verified: NOV 15, 2023 Chemistry Quality Control Analyst E-Sig:/ES/NEMO RODRIGUEZ JR Report: Study: AP, lateral, [...] Primary Interpreting Staff: NEMO RODRIGUEZ JR, Radiologist (Chemistry Quality Control Analyst) /[facility]O WEISS JR [facility] Encounter Notes: All associated encounter notes This section contains the clinical notes associated to the Encounter. Date/Time Encounter Note(s) Provider Source Dec 11, 2023 09:27 AM ADDENDUM: LOCAL TITLE: Addendum STANDARD TITLE: ADDENDUM DATE OF NOTE: DEC 11, 2023@09:27:21 ENTRY DATE: DEC 11, 2023@09:27:22 AUTHOR: BO RAMIREZ COSIGNER: URGENCY: STATUS: COMPLETED Pt asked CPP to refill lorazepam, no refills and seems to be dc'ed. Please place RX if appropriate or contact pt to discuss. Thank you! /mega RAMIREZ PHARMD,BCPS CLINICAL PHARMACY PRACTITIONER Signed: 12/11/2023 09:28 Receipt Acknowledged By: 12/12/2023 10:43 /es/ COLT ARNOLD PSYCHIATRIST --- Original Document --- 12/09/23 PHARMACY CLINIC NOTE: ANNEMARIE HARDING, 73 yo DECLINED TO ANSWER FEMALE, presents for njji-pd-yiva initial visit diabetes management. Today, pt reports she is doing ok. She has dm for a long time. She denies any family history of dm. She notes she took prednisone for asthma for many years and attributes this to her dm. She was exposed to hazardous substances which caused her asthma. She was taking insulin as well as glipizide previous and was able to get off medications d/t dietary changes as well as not needing to take prednisone. She has done the keto diet previously, now does a sort of intermittent fasting and lower carb/Mediterranean. She notes sometimes she feels like her bg could be low- usually in times she will be eating her first meal of the day. Current diabetes medications: - metformin 1000 mg BID Previous diabetes medications: - insulin glargine Medication Adherence: - daily Diet Patterns: patient eats on avg. 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 Personal Goals: get rid of it SMBG: Name: Annemarie Harding Date of : 1950 Report Period: 10/28/2023 - 11/09/2023 (13 days) Generated: 12/11/2023 % Time CGM Active: 100% Glucose Statistics and Targets Average Glucose: 157 mg/dL Glucose Management Indicator (GMI): 7.1% Glucose Variability (%CV): 23.6% Target Range: 70 - 180 mg/dL Time in Ranges Very High: >250 mg/dL --- 0% High: 181 - 250 mg/dL --- 26% Target Range: 70 - 180 mg/dL --- 74% Low: 54 - 69 mg/dL --- 0% Very Low: <54 mg/dL --- 0% Avgs: 12am 2am 4am 6am 8am 10am 137 157 170 178 182 168 12pm 2pm 4pm 6pm 8pm 10pm 178 161 126 158 144 131 SMBG assessment: In range 74% of the time = at goal. FBG above goal, GMI indicates 7.1% higher than previous a1c, could be off by up to 30 mg/dL. HYPOGLYCEMIC Events: ? in last 2 weeks - Hypoglycemia recognition & treatment reviewed: Yes Allergies/ADR: SULFUR, ZOCOR, NIACIN, VARENICLINE, MOXIFLOXACIN, MIRTAZAPINE ASPIRIN RELATED MEDICATIONS, ATORVASTATIN Active and Recently Outpatient Medications (including Supplies): Active Outpatient Medications Status 1) ALBUTEROL 3/IPRATROP 0.5MG/3ML INHL 3ML INHALE 1 ACTIVE AMPULE IN NEBULIZER EVERY THREE HOURS NEEDED FOR BRONCHOSPASM 2) APIXABAN 5MG TAB TAKE ONE TABLET BY MOUTH EVERY 12 ACTIVE HOURS 3) CETIRIZINE HCL 10MG TAB TAKE ONE TABLET BY MOUTH ONCE ACTIVE DAILY FOR ALLERGIES 4) CYANOCOBALAMIN 100MCG TAB TAKE ONE TABLET BY MOUTH ACTIVE EVERY OTHER DAY FOR VITAMIN SUPPLEMENTATION 5) DICLOFENAC NA 1% TOP GEL APPLY 2 GRAMS TOPICALLY FOUR HOLD TIMES A DAY FOR OSTEOARTHRITIS - USE DOSING CARD PROVIDED IN BOX AT WRIST 6) DILTIAZEM (EQV-TIAZAC) 240MG 24HR CAP TAKE ONE ACTIVE CAPSULE BY MOUTH EVERY MORNING PATIENT EXPERIENCE ADVERSE REACTION TO bTendo BRAND/PLEASE DISPENSE VALEANT/OCEANSIDE BRAND [facility] [phone] 7) FORMOTEROL 5/MOMETASONE 200MCG 120D INHL INHALE 2 HOLD PUFFS BY MOUTH TWICE DAILY FOR CONTROLLER MEDICATION FOR ASTHMA 8) IBUPROFEN 800MG TAB TAKE ONE TABLET BY MOUTH THREE ACTIVE TIMES DAILY NEEDED FOR PAIN TAKE WITH FOOD 9) KETOTIFEN 0.025% OPH SOLN INSTILL 1 DROP INTO EACH ACTIVE EYE EVERY 12 HOURS FOR ALLERGIC CONJUNCTIVITIS (IF YOU WEAR CONTACT LENSES, WAIT 10 MINUTES BEFORE INSERTING LENSES) 10) METFORMIN HCL 1000MG TAB TAKE ONE TABLET BY MOUTH ACTIVE TWICE DAILY FOR DIABETES 11) OMEPRAZOLE 20MG EC CAP TAKE TWO CAPSULES BY MOUTH ACTIVE EVERY MORNING 30 MINUTES BEFORE BREAKFAST INCRESED DOSE 12) PRAZOSIN HCL 1MG CAP TAKE ONE CAPSULE BY MOUTH AT HOLD BEDTIME NIGHTMARES 13) SERTRALINE(ZOLOFT) 100MG TAB*BRAND NAME* TAKE TWO ACTIVE TABLETS BY MOUTH ONCE DAILY ANXIETY 14) TRAZODONE HCL 100MG TAB TAKE ONE-HALF TABLET BY MOUTH ACTIVE AT BEDTIME NEEDED FOR SLEEP Inactive Outpatient Medications Status 1) APIXABAN 5MG TAB TAKE ONE TABLET BY MOUTH TWICE DAILY DISCONTINUED (EDIT) 2) CHOLECALCIF 25MCG (D3-1,000UNIT) TAB TAKE ONE TABLET BY MOUTH ONCE DAILY FOR VITAMIN SUPPLEMENTATION 3) CYANOCOBALAMIN 100MCG TAB TAKE ONE TABLET BY MOUTH DISCONTINUED ONCE DAILY FOR VITAMIN SUPPLEMENTATION (EDIT) 4) CYANOCOBALAMIN 500MCG TAB TAKE ONE TABLET BY MOUTH DISCONTINUED ONCE DAILY FOR VITAMIN SUPPLEMENTATION (EDIT) 5) CYCLOBENZAPRINE HCL 5MG TAB TAKE ONE TABLET BY MOUTH THREE TIMES DAILY NEEDED FOR MUSCLE SPASM 6) DICYCLOMINE HCL 20MG TAB TAKE ONE TABLET BY MOUTH DISCONTINUED FOUR TIMES DAILY NEEDED (FOR IRRITABLE BOWEL SYNDROME) 7) DILTIAZEM (EQV-TIAZAC) 180MG 24HR CAP TAKE ONE DISCONTINUED CAPSULE BY MOUTH ONCE DAILY (PATIENT EXPERIENCED AN ADVERSE REACTION WITH bTendo BRAND/PLEASE DISPENSE VALEANT/OCEANSIDE BRAND [facility] [id number]) 8) LORAZEPAM 0.5MG TAB TAKE ONE TABLET BY MOUTH ONCE DISCONTINUED DAILY NEEDED ANXIETY FOR ANXIETY 9) LORAZEPAM 0.5MG TAB TAKE ONE TABLET BY MOUTH AT DISCONTINUED BEDTIME AND TAKE ONE TABLET EVERY DAY NEEDED FOR (EDIT) ANXIETY 10) MELOXICAM 15MG TAB TAKE ONE-HALF TABLET BY MOUTH ONCE DISCONTINUED DAILY NEEDED FOR PAIN DO NOT USE WITH IBUPROFEN 11) METFORMIN HCL 500MG TAB TAKE ONE TABLET BY MOUTH DISCONTINUED TWICE DAILY FOR DIABETES (EDIT) 12) OMEPRAZOLE 20MG EC CAP TAKE ONE CAPSULE BY MOUTH DISCONTINUED EVERY MORNING 30 MINUTES BEFORE BREAKFAST (EDIT) 13) PRAVASTATIN NA 80MG TAB TAKE ONE TABLET BY MOUTH AT DISCONTINUED BEDTIME FOR CHOLESTEROL 14) ROSUVASTATIN CA 20MG TAB TAKE ONE-HALF TABLET BY DISCONTINUED MOUTH AT BEDTIME FOR CHOLESTEROL TO REPLACE PRAVASTATIN 15) SERTRALINE(ZOLOFT) 100MG TAB*BRAND NAME* TAKE TWO DISCONTINUED TABLETS BY MOUTH ONCE DAILY ANXIETY (EDIT) 16) SERTRALINE(ZOLOFT) 100MG TAB*BRAND NAME* TAKE TWO DISCONTINUED TABLETS BY MOUTH ONCE DAILY ANXIETY 17) TRAZODONE HCL 100MG TAB TAKE ONE-HALF TABLET BY MOUTH DISCONTINUED AT BEDTIME NEEDED FOR SLEEP (EDIT) Active Non-VA Medications Status 1) Non-VA DIPHENHYDRAMINE HCL 25MG CAP 25MG BY MOUTH ACTIVE NEEDED 2) Non-VA FISH OIL 500MG DHA/EPA CAP,ORAL BY MOUTH ACTIVE 3) Non-VA OTHER CAP/TAB BY MOUTH ACTIVE 4) Non-VA OTHER CAP/TAB MAGNESIUM 1200MG BY MOUTH ONCE ACTIVE DAILY 5) Non-VA TURMERIC CAP/TAB BY MOUTH ACTIVE 6) Non-VA VITAMIN E CAP,ORAL BY MOUTH ACTIVE 7) Non-VA ZINC 50MG (FROM SULFATE) CAP 50MG BY MOUTH ACTIVE ONCE DAILY 38 Total Medications Labs: CHEM 7 TREND LAB CUMULATIVE SELECTED Collection DT Spec GLUCOSE BUN CREATIN Sodium K+/Pot CL CO2 11/15/2023 10:10 SERUM 168 H 6 L 0.66 134 L 4.3 99 L 25 08/09/2023 11:01 SERUM 217 H 10 0.67 135 4.6 99 L 24 07/26/2023 10:01 SERUM 150 H 11 0.69 140 5.2 H 104 26 06/27/2023 10:25 SERUM 0.66 01/28/2023 09:07 SERUM 216 H 11 0.76 140 4.8 103 25 Collection DT Spec eGFR 07/20/2009 10:54 SERUM >60 03/29/2009 17:26 SERUM >60 03/10/2009 09:48 SERUM >60 11/04/2008 10:58 SERUM >60 08/31/2008 17:02 SERUM >60 LAB CUMULATIVE SELECTED 2 No selection items chosen for this component. CHEM 7 Results Collection DT Spec Sodium K+/Pot CL CO2 GLUCOSE BUN eGFR 11/15/2023 10:10 SERUM 134 L 4.3 99 L 25 168 H 6 L 08/09/2023 11:01 SERUM 135 4.6 99 L 24 217 H 10 07/26/2023 10:01 SERUM 140 5.2 H 104 26 150 H 11 01/28/2023 09:07 SERUM 140 4.8 103 25 216 H 11 08/02/2022 08:48 SERUM 136 5.0 102 26 243 H 13 12/18/2021 09:09 SERUM 140 4.4 102 28 199 H 18 10/30/2021 09:13 SERUM 139 4.9 104 27 193 H 15 10/02/2021 11:40 SERUM 139 4.5 103 26 164 H 11 09/08/2021 12:50 SERUM 140 5.2 H 101 29 172 H 13 06/26/2021 12:10 SERUM 138 5.2 H 102 26 116 H 10 02/03/2021 09:25 SERUM 139 4.6 104 23 171 H 18 11/16/2020 09:45 SERUM 139 5.3 H 101 27 191 H 15 07/08/2020 13:52 SERUM 139 5.0 103 25 101 H 14 06/15/2020 08:45 SERUM 136 5.3 H 98 L 28 170 H 15 03/09/2020 09:24 SERUM 138 4.4 106 20 200 H 16 10/09/2019 12:22 SERUM 139 4.6 101 27 155 H 11 08/03/2019 10:36 SERUM 139 4.5 105 28 172 H 18 06/19/2019 11:37 SERUM 138 4.6 105 24 159 H 18 04/08/2019 08:34 SERUM 137 4.9 103 26 173 H 24 12/22/2018 10:44 SERUM 141 4.7 106 26 140 H 15 05/08/2018 13:22 SERUM 139 5.2 H 102 27 100 13 11/13/2017 09:32 SERUM 140 4.9 104 26 109 H 11 07/22/2017 12:39 SERUM 138 4.9 100 29 167 H 16 07/02/2017 15:49 SERUM 138 4.5 103 26 103 H 10 05/06/2017 12:25 SERUM 138 5.0 104 24 141 H 14 04/08/2017 09:16 SERUM 138 4.4 104 26 153 H 15 01/22/2017 12:22 SERUM 136 4.1 102 24 257 H 12 08/22/2016 10:09 SERUM 133 L 4.8 100 24 302 H 11 01/12/2016 10:31 SERUM 140 4.5 101 31 H 162 H 12 03/02/2015 13:02 SERUM 4.7 8 09/23/2014 09:59 SERUM 140 4.4 105 27 156 H 7 07/25/2014 14:41 SERUM 140 4.1 107 21 158 H 7 05/25/2014 11:24 SERUM 142 4.8 104 28 185 H 10 01/28/2014 10:10 SERUM 140 5.1 H 105 26 285 H 11 12/24/2013 10:29 SERUM 4.5 208 H 9 09/18/2013 16:10 SERUM 141 4.3 106 25 90 11 08/26/2013 09:46 SERUM 138 5.2 H 160 H 12 05/08/2013 10:22 SERUM 10 04/29/2013 18:52 SERUM 141 4.9 103 27 94 15 03/29/2013 11:43 SERUM 140 4.4 106 25 73 8 03/13/2013 15:39 SERUM 140 3.7 106 22 51 L 7 12/26/2012 14:05 SERUM 139 4.4 104 26 133 H 12 09/23/2012 11:43 SERUM 4.2 60 L 06/26/2012 10:02 SERUM 12 06/20/2012 17:06 SERUM 140 4.4 107 22 69 13 04/14/2012 09:27 SERUM 149 H 01/21/2012 10:56 SERUM 141 4.4 104 26 94 8 09/28/2011 11:33 SERUM 139 4.5 104 22 80 10 08/21/2011 11:59 SERUM 10 08/17/2011 12:44 SERUM 139 4.9 102 29 255 H 11 07/24/2011 18:02 SERUM 142 4.5 105 25 104 H 12 04/13/2011 09:32 SERUM 4.2 118 H 11/20/2010 17:08 SERUM 142 4.5 104 28 111 H 15 10/10/2010 12:28 SERUM 140 4.6 105 27 107 H 10 05/09/2010 12:35 SERUM 139 4.9 104 27 108 H 11 12/07/2009 13:31 SERUM 137 4.4 102 27 222 H 6 L 11/21/2009 18:18 SERUM 141 4.6 104 26 100 H 8 11/01/2009 15:56 SERUM 142 4.8 106 29 142 H 8 07/20/2009 10:54 SERUM 138 4.8 104 25 140 H 8 >60 03/29/2009 17:26 SERUM 146 H 4.6 105 28 99 9 >60 03/10/2009 09:48 SERUM 139 4.6 103 25 262 H 10 >60 11/04/2008 10:58 SERUM 142 4.1 105 27 109 H 10 >60 08/31/2008 17:02 SERUM 142 3.8 106 26 147 H 9 >60 08/13/2008 10:54 SERUM 144 4.5 105 27 108 H 11 >60 07/01/2008 15:14 SERUM 142 4.0 107 28 165 H 7 >60 03/30/2008 11:13 SERUM 141 4.8 106 27 130 H 9 >60 09/30/2007 10:34 SERUM 142 4.6 103 29 65 11 >60 09/25/2007 11:26 SERUM 139 5.2 H 103 28 65 16 >60 09/17/2007 13:07 SERUM 140 4.4 104 27 92 12 >60 04/23/2007 10:18 SERUM 142 5.5 H 108 25 96 7 >60 12/06/2006 12:24 SERUM 141 4.6 108 23 138 H 11 >60 12/04/2006 14:41 SERUM 140 3.4 L 107 18 L 163 H 7 >60 09/04/2006 09:59 SERUM 141 4.7 106 22 123 H 9 >60 05/03/2004 14:37 SYNOV 108 eGFR CKD-EPI 202011/15/23 10:10 >90 SERUM LIVER PANEL TREND Collection DT Spec AST ALT T BILI ALK TERRY T. PROT ALBUMIN 07/26/2023 10:01 SERUM 16 22 0.4 63 7.1 4.2 06/27/2023 10:25 SERUM 16 20 0.4 75 6.5 3.9 08/02/2022 08:48 SERUM 13 16 0.4 64 7.3 4.1 12/18/2021 09:09 SERUM 14 17 0.3 54 7.1 4.1 07/08/2020 13:52 SERUM 14 17 0.4 69 7.1 4.2 HEMOGLOBIN A1C TREND Collection DT Spec HGBA1c 11/15/2023 10:10 BLOOD 6.1 H 07/26/2023 10:01 BLOOD 6.1 H 01/28/2023 09:07 BLOOD 6.7 H 08/02/2022 08:48 BLOOD 6.2 H 02/28/2022 14:07 BLOOD 6.0 H LIPID PANEL TREND Collection DT Spec CHOL HDL CHO/HDL LDL-c TRIG 07/26/2023 10:01 SERUM 210 H 102 H 2.1 90 91 01/28/2023 09:07 SERUM 230 H 116 H 2.0 94 98 08/02/2022 08:48 SERUM 217 H 80 H 2.7 117 101 06/26/2021 12:10 SERUM 207 H 93 H 2.2 86 142 07/08/2020 13:52 SERUM 199 65 H 3.1 101 163 H Vitals: Ht: 61 in [154.9 cm] (09/13/2023 11:34) Wt: 145.4 lb [65.95 kg] (11/15/2023 09:11) BMI: BMI: 27.5 BP: 118/68 (11/15/2023 09:11) HR: 84 (11/15/2023 09:11) Assessment: DIABETES: Goal: A1c goal is <7% with a goal fasting BG average of 90-130mg/dL and a goal post-prandial BG average of <180mg/dL per ADA guideline. -A1c is at goal of <7% (6.1% 11/15/23) CARDIOVASCULAR: Goal BP = <130/80 mmHg -Current BP is 118/68 (11/15/2023 09:11) -Lipids: above goal, statin dc'ed? defer to PCP PREVENTIVE CARE: - Most recent visit to Podiatry: n/a? - Most recent visit to Optometry:03/2023 Diabetes per history without ocular manifestations Plan: - Medication management - CONTINUE: Metformin 1000 mg BID - Pt will check with GI provider to see if GI issues would warrant a holiday from metformin to see if it is the culprit. - Pt to contact CPP to review GI suggestions. - Reviewed medication options, since pt intm fasts, would NOT recommend empagliflozin, d/t GI issues GLP1a may increase issues, would be cautious in recommending. - Continue to SMBG 2x/ week - Monitor for s/sx hypoglycemia and contact clinic if BG consistently <70mg/dL - Reviewed 15-15 rule and if feeling light headed should break fast to reduce risk of hypos - Healthy dietary and lifestyle modifications encouraged - Repeat A1c: tbd EDUCATION -A shared decision-making approach was used in the development of this plan, involving the , clinician, and any caregivers present. The Robeline was provided the opportunity express questions or concerns, and the plan was adjusted as needed to address these concerns. -Reviewed with Robeline any new medications, changes to the medication list, education, and plan from today's visit. Patient (and/or caregiver) verbalized understanding of the plan, including possible known risks and benefits, and had no additional questions. RTC: pt to contact CPP Time Spent:30 mins PBM PharmD Pharmacotherapy Rem V12: PHARMACIST INTERVENTIONS: TYPE 2 DIABETES MELLITUS Medication monitoring, no dosage change required, continue to monitor and assess Medication reconciliation (changes to active VA and non-VA medication lists to reconcile differences) No changes to medication lists made (medication review completed, no discrepancies identified) /jeana/ BO RAMIREZ, JOSID,BCPS CLINICAL PHARMACY PRACTITIONER Signed: 12/11/2023 09:26 BO RAMIREZ [facility] [place] [facility] Dec 09, 2023 08:59 AM PHARMACY OUTPATIEN T NOTE: LOCAL TITLE: PHARMACY CLINIC NOTE STANDARD TITLE: PHARMACY OUTPATIENT NOTE DATE OF NOTE: DEC 09, 2023@08:59 ENTRY DATE: DEC 09, 2023@09:09:27 AUTHOR: BO RAMIREZ EXP COSIGNER: URGENCY: STATUS: COMPLETED PHARMACY CLINIC NOTE Has ADDENDA ANNEMARIE HARDING, 73 yo DECLINED TO ANSWER FEMALE, presents for [id number] initial visit diabetes management. Today, pt reports she is doing ok. She has dm for a long time. She denies any family history of dm. She notes she took prednisone for asthma for many years and attributes this to her dm. She was exposed to hazardous substances which caused her asthma. She was taking insulin as well as glipizide previous and was able to get off medications d/t dietary changes as well as not needing to take prednisone. She has done the keto diet previously, now does a sort of intermittent fasting and lower carb/Mediterranean. She notes sometimes she feels like her bg could be low- usually in times she will be eating her first meal of the day. Current diabetes medications: - metformin 1000 mg BID Previous diabetes medications: - insulin glargine Medication Adherence: - daily Diet Patterns: patient eats on avg. 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 Personal Goals: get rid of it SMBG: Name: Annemarie Harding Date of : 1950 Report Period: 10/28/2023 - 11/09/2023 (13 days) Generated: 12/11/2023 % Time CGM Active: 100% Glucose Statistics and Targets Average Glucose: 157 mg/dL Glucose Management Indicator (GMI): 7.1% Glucose Variability (%CV): 23.6% Target Range: 70 - 180 mg/dL Time in Ranges Very High: >250 mg/dL --- 0% High: 181 - 250 mg/dL --- 26% Target Range: 70 - 180 mg/dL --- 74% Low: 54 - 69 mg/dL --- 0% Very Low: <54 mg/dL --- 0% Avgs: 12am 2am 4am 6am 8am 10am 137 157 170 178 182 168 12pm 2pm 4pm 6pm 8pm 10pm 178 161 126 158 144 131 SMBG assessment: In range 74% of the time = at goal. FBG above goal, GMI indicates 7.1% higher than previous a1c, could be off by up to 30 mg/dL. HYPOGLYCEMIC Events: ? in last 2 weeks - Hypoglycemia recognition & treatment reviewed: Yes Allergies/ADR: SULFUR, ZOCOR, NIACIN, VARENICLINE, MOXIFLOXACIN, MIRTAZAPINE ASPIRIN RELATED MEDICATIONS, ATORVASTATIN Active and Recently Outpatient Medications (including Supplies): Active Outpatient Medications Status 1) ALBUTEROL 3/IPRATROP 0.5MG/3ML INHL 3ML INHALE 1 ACTIVE AMPULE IN NEBULIZER EVERY THREE HOURS NEEDED FOR BRONCHOSPASM 2) APIXABAN 5MG TAB TAKE ONE TABLET BY MOUTH EVERY 12 ACTIVE HOURS 3) CETIRIZINE HCL 10MG TAB TAKE ONE TABLET BY MOUTH ONCE ACTIVE DAILY FOR ALLERGIES 4) CYANOCOBALAMIN 100MCG TAB TAKE ONE TABLET BY MOUTH ACTIVE EVERY OTHER DAY FOR VITAMIN SUPPLEMENTATION 5) DICLOFENAC NA 1% TOP GEL APPLY 2 GRAMS TOPICALLY FOUR HOLD TIMES A DAY FOR OSTEOARTHRITIS - USE DOSING CARD PROVIDED IN BOX AT WRIST 6) DILTIAZEM (EQV-TIAZAC) 240MG 24HR CAP TAKE ONE ACTIVE CAPSULE BY MOUTH EVERY MORNING PATIENT EXPERIENCE ADVERSE REACTION TO bTendo BRAND/PLEASE DISPENSE VALEANT/OCEANSIDE BRAND [facility] [id number] 7) FORMOTEROL 5/MOMETASONE 200MCG 120D INHL INHALE 2 HOLD PUFFS BY MOUTH TWICE DAILY FOR CONTROLLER MEDICATION FOR ASTHMA 8) IBUPROFEN 800MG TAB TAKE ONE TABLET BY MOUTH THREE ACTIVE TIMES DAILY NEEDED FOR PAIN TAKE WITH FOOD 9) KETOTIFEN 0.025% OPH SOLN INSTILL 1 DROP INTO EACH ACTIVE EYE EVERY 12 HOURS FOR ALLERGIC CONJUNCTIVITIS (IF YOU WEAR CONTACT LENSES, WAIT 10 MINUTES BEFORE INSERTING LENSES) 10) METFORMIN HCL 1000MG TAB TAKE ONE TABLET BY MOUTH ACTIVE TWICE DAILY FOR DIABETES 11) OMEPRAZOLE 20MG EC CAP TAKE TWO CAPSULES BY MOUTH ACTIVE EVERY MORNING 30 MINUTES BEFORE BREAKFAST INCRESED DOSE 12) PRAZOSIN HCL 1MG CAP TAKE ONE CAPSULE BY MOUTH AT HOLD BEDTIME NIGHTMARES 13) SERTRALINE(ZOLOFT) 100MG TAB*BRAND NAME* TAKE TWO ACTIVE TABLETS BY MOUTH ONCE DAILY ANXIETY 14) TRAZODONE HCL 100MG TAB TAKE ONE-HALF TABLET BY MOUTH ACTIVE AT BEDTIME NEEDED FOR SLEEP Inactive Outpatient Medications Status 1) APIXABAN 5MG TAB TAKE ONE TABLET BY MOUTH TWICE DAILY DISCONTINUED (EDIT) 2) CHOLECALCIF 25MCG (D3-1,000UNIT) TAB TAKE ONE TABLET BY MOUTH ONCE DAILY FOR VITAMIN SUPPLEMENTATION 3) CYANOCOBALAMIN 100MCG TAB TAKE ONE TABLET BY MOUTH DISCONTINUED ONCE DAILY FOR VITAMIN SUPPLEMENTATION (EDIT) 4) CYANOCOBALAMIN 500MCG TAB TAKE ONE TABLET BY MOUTH DISCONTINUED ONCE DAILY FOR VITAMIN SUPPLEMENTATION (EDIT) 5) CYCLOBENZAPRINE HCL 5MG TAB TAKE ONE TABLET BY MOUTH THREE TIMES DAILY NEEDED FOR MUSCLE SPASM 6) DICYCLOMINE HCL 20MG TAB TAKE ONE TABLET BY MOUTH DISCONTINUED FOUR TIMES DAILY NEEDED (FOR IRRITABLE BOWEL SYNDROME) 7) DILTIAZEM (EQV-TIAZAC) 180MG 24HR CAP TAKE ONE DISCONTINUED CAPSULE BY MOUTH ONCE DAILY (PATIENT EXPERIENCED AN ADVERSE REACTION WITH bTendo BRAND/PLEASE DISPENSE VALEANT/OCEANSIDE BRAND [facility] [id number]) 8) LORAZEPAM 0.5MG TAB TAKE ONE TABLET BY MOUTH ONCE DISCONTINUED DAILY NEEDED ANXIETY FOR ANXIETY 9) LORAZEPAM 0.5MG TAB TAKE ONE TABLET BY MOUTH AT DISCONTINUED BEDTIME AND TAKE ONE TABLET EVERY DAY NEEDED FOR (EDIT) ANXIETY 10) MELOXICAM 15MG TAB TAKE ONE-HALF TABLET BY MOUTH ONCE DISCONTINUED DAILY NEEDED FOR PAIN DO NOT USE WITH IBUPROFEN 11) METFORMIN HCL 500MG TAB TAKE ONE TABLET BY MOUTH DISCONTINUED TWICE DAILY FOR DIABETES (EDIT) 12) OMEPRAZOLE 20MG EC CAP TAKE ONE CAPSULE BY MOUTH DISCONTINUED EVERY MORNING 30 MINUTES BEFORE BREAKFAST (EDIT) 13) PRAVASTATIN NA 80MG TAB TAKE ONE TABLET BY MOUTH AT DISCONTINUED BEDTIME FOR CHOLESTEROL 14) ROSUVASTATIN CA 20MG TAB TAKE ONE-HALF TABLET BY DISCONTINUED MOUTH AT BEDTIME FOR CHOLESTEROL TO REPLACE PRAVASTATIN 15) SERTRALINE(ZOLOFT) 100MG TAB*BRAND NAME* TAKE TWO DISCONTINUED TABLETS BY MOUTH ONCE DAILY ANXIETY (EDIT) 16) SERTRALINE(ZOLOFT) 100MG TAB*BRAND NAME* TAKE TWO DISCONTINUED TABLETS BY MOUTH ONCE DAILY ANXIETY 17) TRAZODONE HCL 100MG TAB TAKE ONE-HALF TABLET BY MOUTH DISCONTINUED AT BEDTIME NEEDED FOR SLEEP (EDIT) Active Non-VA Medications Status 1) Non-VA DIPHENHYDRAMINE HCL 25MG CAP 25MG BY MOUTH ACTIVE NEEDED 2) Non-VA FISH OIL 500MG DHA/EPA CAP,ORAL BY MOUTH ACTIVE 3) Non-VA OTHER CAP/TAB BY MOUTH ACTIVE 4) Non-VA OTHER CAP/TAB MAGNESIUM 1200MG BY MOUTH ONCE ACTIVE DAILY 5) Non-VA TURMERIC CAP/TAB BY MOUTH ACTIVE 6) Non-VA VITAMIN E CAP,ORAL BY MOUTH ACTIVE 7) Non-VA ZINC 50MG (FROM SULFATE) CAP 50MG BY MOUTH ACTIVE ONCE DAILY 38 Total Medications Labs: CHEM 7 TREND LAB CUMULATIVE SELECTED Collection DT Spec GLUCOSE BUN CREATIN Sodium K+/Pot CL CO2 11/15/2023 10:10 SERUM 168 H 6 L 0.66 134 L 4.3 99 L 25 08/09/2023 11:01 SERUM 217 H 10 0.67 135 4.6 99 L 24 07/26/2023 10:01 SERUM 150 H 11 0.69 140 5.2 H 104 26 06/27/2023 10:25 SERUM 0.66 01/28/2023 09:07 SERUM 216 H 11 0.76 140 4.8 103 25 Collection DT Spec eGFR 07/20/2009 10:54 SERUM >60 03/29/2009 17:26 SERUM >60 03/10/2009 09:48 SERUM >60 11/04/2008 10:58 SERUM >60 08/31/2008 17:02 SERUM >60 LAB CUMULATIVE SELECTED 2 No selection items chosen for this component. CHEM 7 Results Collection DT Spec Sodium K+/Pot CL CO2 GLUCOSE BUN eGFR 11/15/2023 10:10 SERUM 134 L 4.3 99 L 25 168 H 6 L 08/09/2023 11:01 SERUM 135 4.6 99 L 24 217 H 10 07/26/2023 10:01 SERUM 140 5.2 H 104 26 150 H 11 01/28/2023 09:07 SERUM 140 4.8 103 25 216 H 11 08/02/2022 08:48 SERUM 136 5.0 102 26 243 H 13 12/18/2021 09:09 SERUM 140 4.4 102 28 199 H 18 10/30/2021 09:13 SERUM 139 4.9 104 27 193 H 15 10/02/2021 11:40 SERUM 139 4.5 103 26 164 H 11 09/08/2021 12:50 SERUM 140 5.2 H 101 29 172 H 13 06/26/2021 12:10 SERUM 138 5.2 H 102 26 116 H 10 02/03/2021 09:25 SERUM 139 4.6 104 23 171 H 18 11/16/2020 09:45 SERUM 139 5.3 H 101 27 191 H 15 07/08/2020 13:52 SERUM 139 5.0 103 25 101 H 14 06/15/2020 08:45 SERUM 136 5.3 H 98 L 28 170 H 15 03/09/2020 09:24 SERUM 138 4.4 106 20 200 H 16 10/09/2019 12:22 SERUM 139 4.6 101 27 155 H 11 08/03/2019 10:36 SERUM 139 4.5 105 28 172 H 18 06/19/2019 11:37 SERUM 138 4.6 105 24 159 H 18 04/08/2019 08:34 SERUM 137 4.9 103 26 173 H 24 12/22/2018 10:44 SERUM 141 4.7 106 26 140 H 15 05/08/2018 13:22 SERUM 139 5.2 H 102 27 100 13 11/13/2017 09:32 SERUM 140 4.9 104 26 109 H 11 07/22/2017 12:39 SERUM 138 4.9 100 29 167 H 16 07/02/2017 15:49 SERUM 138 4.5 103 26 103 H 10 05/06/2017 12:25 SERUM 138 5.0 104 24 141 H 14 04/08/2017 09:16 SERUM 138 4.4 104 26 153 H 15 01/22/2017 12:22 SERUM 136 4.1 102 24 257 H 12 08/22/2016 10:09 SERUM 133 L 4.8 100 24 302 H 11 01/12/2016 10:31 SERUM 140 4.5 101 31 H 162 H 12 03/02/2015 13:02 SERUM 4.7 8 09/23/2014 09:59 SERUM 140 4.4 105 27 156 H 7 07/25/2014 14:41 SERUM 140 4.1 107 21 158 H 7 05/25/2014 11:24 SERUM 142 4.8 104 28 185 H 10 01/28/2014 10:10 SERUM 140 5.1 H 105 26 285 H 11 12/24/2013 10:29 SERUM 4.5 208 H 9 09/18/2013 16:10 SERUM 141 4.3 106 25 90 11 08/26/2013 09:46 SERUM 138 5.2 H 160 H 12 05/08/2013 10:22 SERUM 10 04/29/2013 18:52 SERUM 141 4.9 103 27 94 15 03/29/2013 11:43 SERUM 140 4.4 106 25 73 8 03/13/2013 15:39 SERUM 140 3.7 106 22 51 L 7 12/26/2012 14:05 SERUM 139 4.4 104 26 133 H 12 09/23/2012 11:43 SERUM 4.2 60 L 06/26/2012 10:02 SERUM 12 06/20/2012 17:06 SERUM 140 4.4 107 22 69 13 04/14/2012 09:27 SERUM 149 H 01/21/2012 10:56 SERUM 141 4.4 104 26 94 8 09/28/2011 11:33 SERUM 139 4.5 104 22 80 10 08/21/2011 11:59 SERUM 10 08/17/2011 12:44 SERUM 139 4.9 102 29 255 H 11 07/24/2011 18:02 SERUM 142 4.5 105 25 104 H 12 04/13/2011 09:32 SERUM 4.2 118 H 11/20/2010 17:08 SERUM 142 4.5 104 28 111 H 15 10/10/2010 12:28 SERUM 140 4.6 105 27 107 H 10 05/09/2010 12:35 SERUM 139 4.9 104 27 108 H 11 12/07/2009 13:31 SERUM 137 4.4 102 27 222 H 6 L 11/21/2009 18:18 SERUM 141 4.6 104 26 100 H 8 11/01/2009 15:56 SERUM 142 4.8 106 29 142 H 8 07/20/2009 10:54 SERUM 138 4.8 104 25 140 H 8 >60 03/29/2009 17:26 SERUM 146 H 4.6 105 28 99 9 >60 03/10/2009 09:48 SERUM 139 4.6 103 25 262 H 10 >60 11/04/2008 10:58 SERUM 142 4.1 105 27 109 H 10 >60 08/31/2008 17:02 SERUM 142 3.8 106 26 147 H 9 >60 08/13/2008 10:54 SERUM 144 4.5 105 27 108 H 11 >60 07/01/2008 15:14 SERUM 142 4.0 107 28 165 H 7 >60 03/30/2008 11:13 SERUM 141 4.8 106 27 130 H 9 >60 09/30/2007 10:34 SERUM 142 4.6 103 29 65 11 >60 09/25/2007 11:26 SERUM 139 5.2 H 103 28 65 16 >60 09/17/2007 13:07 SERUM 140 4.4 104 27 92 12 >60 04/23/2007 10:18 SERUM 142 5.5 H 108 25 96 7 >60 12/06/2006 12:24 SERUM 141 4.6 108 23 138 H 11 >60 12/04/2006 14:41 SERUM 140 3.4 L 107 18 L 163 H 7 >60 09/04/2006 09:59 SERUM 141 4.7 106 22 123 H 9 >60 05/03/2004 14:37 SYNOV 108 eGFR CKD-EPI 202011/15/23 10:10 >90 SERUM LIVER PANEL TREND Collection DT Spec AST ALT T BILI ALK TERRY T. PROT ALBUMIN 07/26/2023 10:01 SERUM 16 22 0.4 63 7.1 4.2 06/27/2023 10:25 SERUM 16 20 0.4 75 6.5 3.9 08/02/2022 08:48 SERUM 13 16 0.4 64 7.3 4.1 12/18/2021 09:09 SERUM 14 17 0.3 54 7.1 4.1 07/08/2020 13:52 SERUM 14 17 0.4 69 7.1 4.2 HEMOGLOBIN A1C TREND Collection DT Spec HGBA1c 11/15/2023 10:10 BLOOD 6.1 H 07/26/2023 10:01 BLOOD 6.1 H 01/28/2023 09:07 BLOOD 6.7 H 08/02/2022 08:48 BLOOD 6.2 H 02/28/2022 14:07 BLOOD 6.0 H LIPID PANEL TREND Collection DT Spec CHOL HDL CHO/HDL LDL-c TRIG 07/26/2023 10:01 SERUM 210 H 102 H 2.1 90 91 01/28/2023 09:07 SERUM 230 H 116 H 2.0 94 98 08/02/2022 08:48 SERUM 217 H 80 H 2.7 117 101 06/26/2021 12:10 SERUM 207 H 93 H 2.2 86 142 07/08/2020 13:52 SERUM 199 65 H 3.1 101 163 H Vitals: Ht: 61 in [154.9 cm] (09/13/2023 11:34) Wt: 145.4 lb [65.95 kg] (11/15/2023 09:11) BMI: BMI: 27.5 BP: 118/68 (11/15/2023 09:11) HR: 84 (11/15/2023 09:11) Assessment: DIABETES: Goal: A1c goal is <7% with a goal fasting BG average of 90-130mg/dL and a goal post-prandial BG average of <180mg/dL per ADA guideline. -A1c is at goal of <7% (6.1% 11/15/23) CARDIOVASCULAR: Goal BP = <130/80 mmHg -Current BP is 118/68 (11/15/2023 09:11) -Lipids: above goal, statin dc'ed? defer to PCP PREVENTIVE CARE: - Most recent visit to Podiatry: n/a? - Most recent visit to Optometry:03/2023 Diabetes per history without ocular manifestations Plan: - Medication management - CONTINUE: Metformin 1000 mg BID - Pt will check with GI provider to see if GI issues would warrant a holiday from metformin to see if it is the culprit. - Pt to contact CPP to review GI suggestions. - Reviewed medication options, since pt intm fasts, would NOT recommend empagliflozin, d/t GI issues GLP1a may increase issues, would be cautious in recommending. - Continue to SMBG 2x/ week - Monitor for s/sx hypoglycemia and contact clinic if BG consistently <70mg/dL - Reviewed 15-15 rule and if feeling light headed should break fast to reduce risk of hypos - Healthy dietary and lifestyle modifications encouraged - Repeat A1c: tbd EDUCATION -A shared decision-making approach was used in the development of this plan, involving the , clinician, and any caregivers present. The was provided the opportunity express questions or concerns, and the plan was adjusted as needed to address these concerns. -Reviewed with Robeline any new medications, changes to the medication list, education, and plan from today's visit. Patient (and/or caregiver) verbalized understanding of the plan, including possible known risks and benefits, and had no additional questions. RTC: pt to contact CPP Time Spent:30 mins PBM PharmD Pharmacotherapy Rem V12: PHARMACIST INTERVENTIONS: TYPE 2 DIABETES MELLITUS Medication monitoring, no dosage change required, continue to monitor and assess Medication reconciliation (changes to active VA and non-VA medication lists to reconcile differences) No changes to medication lists made (medication review completed, no discrepancies identified) /mega RAMIREZ PHARMD,[facility] CLINICAL PHARMACY PRACTITIONER Signed: 12/11/2023 09:26 12/11/2023 ADDENDUM STATUS: COMPLETED Pt asked CPP to refill lorazepam, no refills and seems to be dc'ed. Please place RX if appropriate or contact pt to discuss. Thank you! /mega RAMIREZ PHARMD,[facility] CLINICAL PHARMACY PRACTITIONER Signed: 12/11/2023 09:28 Receipt Acknowledged By: * AWAITING SIGNATURE * [employer]
--- OUTSIDE RECORDS SUMMARY | 2024-08-04 16:43 | XMS_ITS ---
Author Name [facility] [facility] [place] [facility] [place] [facility] [place] Address [address] [place] [address] Care Team Providers Care Strategic Intelligence Officer Name Role Phone CADEN FELIZ Primary Care [...] PLAN I Aug 19, 2019 PLAN I [id number] MEEK,SABINE ICEL PATIENT [employer] OPTIONS MEDICARE SUPPLEMEN MARCIA PLANM Y Aug 19, 2019 PLANMY [id number] MEEK,GR ICEL PATIENT [employer] OPTIONS MEDICARE SUPPLEMEN MARCIA AARP MEDIC ARE SUPPL Aug 19, 2019 PLAN MY [id number] MEEK,GR ICEL PATIENT AARP INS MEDICARE SUPPLEMEN MARCIA PLANM Y Aug 19, 2019 PLANMY [id number] [phone] MEEK,GR ICEL PATIENT AARP MED SUPP MEDICARE SUPPLEMEN MARCIA Jul 19, 2010 PLANMY [id number] [phone] MEEK,GR ICEL PATIENT MEDICARE (WNR) MEDICARE () PART B Aug 19, 2008 PART B [id number] [phone] MEEK,GR ICEL PATIENT MEDICARE (WNR) MEDICARE () PART B Aug 19, 2008 PART B [id number] MEEK,GR ICEL PATIENT MEDICARE (WNR) MEDICARE () PART B Aug 19, 2008 PART B [id number] [phone] MEEK,GR ICEL PATIENT MEDICARE (WNR) MEDICARE () PART B Aug 19, 2008 PART B [id number] MEEK,GR ICEL PATIENT MEDICARE (WNR) MEDICARE () PART B Aug 19, 2008 PART B [id number] [phone] MEEK,GR ICEL PATIENT MEDICARE (WNR) MEDICARE () PART B Aug 19, 2008 PART B [id number] [phone] MEEK,GR ICEL PATIENT MEDICARE (WNR) MEDICARE () PART B Aug 19, 2008 PART B [id number] MEEK,GR ICEL PATIENT MEDICARE (WNR) MEDICARE () PART A December 18, 2003 PART A [id number] MEEK,GR ICEL PATIENT MEDICARE (WNR) MEDICARE () PART A December 18, 2003 PART A [id number] [phone] MEEK,GR ICEL PATIENT MEDICARE (WNR) MEDICARE () PART A December 18, 2003 PART A [id number] [phone] MEEK,GR ICEL PATIENT MEDICARE (WNR) MEDICARE () PART A December 18, 2003 PART A [id number] [phone] MEEK,GR ICEL PATIENT MEDICARE (WNR) MEDICARE () PART A December 18, 2003 PART A [id number] MEEK,GR ICEL PATIENT MEDICARE (WNR) MEDICARE () PART A December 18, 2003 PART A [id number] SABINE MEEK PATIENT MEDICARE (WNR) MEDICARE (M) PART A December 18, 2003 PART A [id number] SABINE MEEK PATIENT Selected Encounter This section includes the information on record at [place] for the Encounter. Date/Time Encounter Type Encounter Description Reason Pro vider Source Dec 10, 2023 02:08 PM Outpatient Encounter COMMUNITY CARE CONSULT IHE Encounter Template Text not used by [place] Plan of Treatment: Future Appointments (+ 6 months) and Future Tests (+/- 45 days) The Plan of Treatment section includes future care activities for the patient from all [place] treatmentfacilities. This section includes future appointments and future orders which are active, pending or scheduled. Future Appointments This section includes appointments that were scheduled to occur 6 months from the date of the Encounter, up to a maximum of 20 appointments. The data comes from all [place] treatment facilities. Appointment Date/Time Appointment Type Appointme nt Facility Name Dec 12, 2023 11:30 AM AM[facility]ULATORY [facility] NONE [facility] [place] [facility] Dec 16, 2023 01:00 PM AMBULATORY - PS[facility]CHIATRY [facility] [place] [facility] December 23, 2023 01:00 PM AMBULATORY - PS[facility]CHIATRY [facility] [place] [facility] December 31, 2023 09:00 AM AMBULATORY - [place]ICINE [place] [facility] [place] [facility] January 06, 2024 11:00 AM AMBULATORY - PS[facility]IATRY [facility] [place] [facility] January 06, 2024 01:00 PM AMBULATORY - PS[facility]CHIATRY [facility] [place] [facility] January 07, 2024 08:00 AM AM[place]UL[place]ORY [place]ICINE [place] [facility] [place] [facility] January 09, 2024 09:00 AM AMBULATORY - PS[facility]CHIATRY [facility] [place] [facility] January 14, 2024 09:30 AM AMBULATORY [facility] MEDICINE [facility] [place] [facility] January 16, 2024 10:30 AM AMBULATORY - NONE [facility] [place] [facility] Jan 20, 2024 01:00 PM AMBULATORY - PS[facility]IATRY [facility] [place] [facility] Jan 22, 2024 03:00 PM AMBULATORY - [...] - PSYCHIATRY [facility] [place] [facility] Lab Results: +/- 30 days of the [...] Range Comment Nov 15, 2023 10:10 AM [place] [facility] [place] [facility] VITAMIN B12 Specimen Type: SERUM No comment entered. Ordering Provider: WALE FELIZ Report Released Date/Time: Nov 15, 2023 09:56 AM Reporting Lab: [facility] [place] [facility] [address] [facility] [address] Performing Lab: [facility] [place] [facility] [address] [facility] [address] VITAMIN B12 806 pg/mL 200-900 Nov 15, 2023 10:10 AM [place] [facility] [place] [facility] MICROALBUMIN CREATININE RATIO PANEL Specimen Type: URINE No comment entered. Ordering Provider: WALE FELIZ Report Released Date/Time: Nov 15, 2023 09:56 AM Reporting Lab: [facility] [place] [facility] [address] [facility] [address] Performing Lab: [place] [facility] [address] [address] MICROALBUMIN/C REATININE RATIO canc mg/g 0-29.9 MICROALBUMIN,Q UANTITATIVE < 0.5 mg/dL RR UNAVAIL CREATININE URINE 34.74 mg/dL Nov 15, 2023 10:10 AM [facility] HEMOGLOBIN A1C PANEL Specimen Type: BLOOD No comment entered. Ordering Provider: WALE FELIZ Report Released Date/Time: Nov 15, 2023 09:56 AM Reporting Lab: [address] [address] Performing Lab: [address] [address] HEMOGLOBIN A1C 6.1 H 4.0-5.6 Nov 15, 2023 10:10 AM [facility] VITAMIN D (25-OH) Specimen Type: SERUM No comment entered. Ordering Provider: WALE FELIZ Report Released Date/Time: Nov 15, 2023 09:56 AM Reporting Lab: [address] [address] Performing Lab: [address] [address] VITAMIN D (25-OH) 54 ng/mL H 20-50 Nov 15, 2023 10:10 AM [facility] BASIC METABOLIC PANEL (non-fasting) Specimen Type: SERUM No comment entered. Ordering Provider: WALE FELIZ Report Released Date/Time: Nov 15, 2023 09:56 AM Reporting Lab: [address] [address] Performing Lab: [address] [address] UREA NITROGEN 6 mg/dL L 7-25 GLUCOSE [...] and tobacco- related health factors from the [place] facility where the Encounter took place. Current Smoking Status This section includes the most current smoking, or tobacco-related health factor, from the [place] facility where the Encounter took place. Date/Time Current Smoking Status Comment [facility] Feb 08, 2023 10:00 AM VA-TOBACCO FORMER USER [place] [facility] [place] [facility] Tobacco Use History This section includes a history of the smoking, or tobacco-related health factors, that were collected on or before the date of the Encounter. The data comes from the [place] facility where the Encounter took place. Date/Time Smoking Status/Tobac co Use Comment Facility Feb 08, 2023 10:00 AM VA-TOBACCO QUIT 15 YRS OR MORE [facility] [place] [facility] Mar 06, 2022 02:30 PM VA-TOBACCO FORMER USER [facility] [place] [facility] Mar 06, 2022 02:30 PM VA-TOBACCO QUIT 15 YRS OR MORE [facility] [place] [facility] Apr 04, 2021 10:28 AM VA-TOBACCO NEVER USED [place] [facility] [place] [facility] May 03, 2020 02:00 PM VA-TOBACCO NEVER USED [place] [facility] [place] [facility] Feb 25, 2019 08:14 AM VA-TOBACCO FORMER USER [facility] [place] [facility] Feb 25, 2019 08:14 AM VA-TOBACCO QUIT 5 TO < 15 YRS [facility] [place] [facility] Apr 04, 2018 10:41 AM QUIT TOBACCO USE 1-7 YEARS AGO [facility] [place] [facility] Oct 28, 2017 10:18 AM QUIT TOBACCO USE 1-7 YEARS AGO [facility] [place] [facility] Jan 22, 2017 01:08 PM QUIT TOBACCO USE 1-7 YEARS AGO [facility] [place] [facility] Jul 18, 2016 01:34 PM QUIT TOBACCO USE 1-7 YEARS AGO [facility] [place] [facility] January 10, 2016 10:32 AM QUIT TOBACCO USE 1-7 YEARS AGO [facility] [place] [facility] Oct 13, 2015 11:05 AM QUIT TOBACCO USE 1-7 YEARS AGO [facility] [place] [facility] Oct 19, 2014 01:53 PM QUIT TOBACCO USE > 7 YEARS AGO [place] [facility] [place] [facility] January 02, 2014 01:30 AM QUIT TOBACCO USE IN PAST YEAR [facility] [place] [facility] Jun 18, 2013 09:00 AM CURRENT SMOKER 6 cigarettes qd [facility] [place] [facility] Jun 18, 2013 09:00 AM V1-PT DECLINES TOBACCO CESSATION MEDS [place] [facility] [place] [facility] Jun 18, 2013 09:00 AM V1-PT NOT INTERESTED IN QUIT TOBACCO USE [facility] [place] [facility] December 24, 2012 10:51 AM V1-PT DECLINES REF TO TOBACCO CESS PRGM [facility] [place] [facility] December 24, 2012 10:51 AM V1-PT DECLINES TOBACCO CESSATION MEDS [facility] [place] [facility] December 24, 2012 10:51 AM V1-PT THINKING ABOUT QUIT TOBACCO USE [facility] [place] [facility] Jul 15, 2012 10:19 AM QUIT TOBACCO USE IN PAST YEAR [facility] [place] [facility] Jan 25, 2012 05:02 PM QUIT TOBACCO USE IN PAST YEAR [facility] [place] [facility] Sep 28, 2011 10:09 AM CURRENT SMOKER 5 cigarettes a day [facility] [place] [facility] Jun 15, 2011 02:23 PM V1-PT DECLINES REF TO TOBACCO CESS [facility] [place] [facility] Jun 15, 2011 02:23 PM V1-PT READY TO QUIT TOBACCO USE [facility] [place] [facility] Apr 13, 2011 10:31 AM V1-PT DECLINES REF TO TOBACCO CESS PRGM [facility] Apr 13, 2011 10:31 AM V1-PT RECEIVES TOBACCO CESS MEDS OUTSIDE [facility] [place] [facility] Apr 13, 2011 10:31 AM V1-PT THINKING ABOUT QUIT TOBACCO USE [facility] [place] [facility] Oct 16, 2010 08:52 AM QUIT TOBACCO USE IN PAST YEAR [facility] May 12, 2010 02:08 PM V1-PT DECLINES REF TO TOBACCO CESS [facility] May 12, 2010 02:08 PM V1-PT READY TO QUIT TOBACCO [facility] May 12, 2010 12:45 PM CURRENT SMOKER 3 cigarettes a day [facility] Radiology Reports: +/- 30 days of [...] the Encounter. The data comes from all [facility] facilities. Date/Time Radiology Report Provider Source Nov 15, 2023 10:22 AM ELBOW 3 OR MORE VIEWS(LEFT): PEBBLES MEEK [id number] [id number] F Exm Date: NOV 15, 2023@10:22 Req Phys: CADEN FELIZ Loc: CWM/NO/PACT 6 WH (Req'g Loc) Img Loc: [facility] Service: Unknown (Case [id number] COMPLETE) ELBOW 3 OR MORE VIEWS(LEFT) (RAD Detailed) CPT:72156 Reason for Study: pain and swelling left elbow Clinical History: 73yo woman with h/o traumatic injury in 20s, Report Status: Verified Date Reported: NOV 15, 2023 Date Verified: NOV 15, 2023 Photo Booth Operator E-Sig:/ES/NEMO RODRIGUEZ JR Report: Study: AP, [...] Primary Interpreting Staff: NEMO RODRIGUEZ JR, Radiologist (Photo Booth Operator) /NEMO WEISS JR [facility] Encounter Notes: All associated encounter notes This section contains the clinical notes associated to the Encounter. 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 Refer to PCP/PACT to submit a [facility] surgery consult. /jeana/ MYRON ENGLISH WOOD HEEL FITTER MACHINE Signed: 12/10/2023 14:15 Receipt Acknowledged By: 12/10/2023 14:55 /jeana/ SULEIMAN VERMA 04/07/2024 10:25 /es/ CADEN FELIZ M.D. PHYSICIAN 12/12/2023 10:14 /es/ KIET FRANCIS, MSN, RN, CNL PRIMARY CARE TEAM NURSE 12/12/2023 ADDENDUM STATUS: COMPLETED A General Surgery consult placed and held for provider signature /jeana/ KIET FRANCIS, MSN, RN, CNL PRIMARY CARE TEAM NURSE Signed: 12/12/2023 10:15 MYRON ENGLISH [facility]
--- OUTSIDE RECORDS SUMMARY | 2024-08-04 16:43 | XMS_ITS | Encounter Summary ---
Author Name [facility] [place] [place] Organization [facility] [place] Address [address] [place] [address] Care Team Providers Care Macadam Raker Name Role Phone CADEN FELIZ Primary Care [...] PLAN I Aug 19, 2019 PLAN I [id number] EMEK,GR ICEL PATIENT [employer] OPTIONS MEDICARE SUPPLEMEN MARCIA PLANM Y Aug 19, 2019 PLANMY [id number] MEEK,GR ICEL PATIENT [employer] OPTIONS MEDICARE SUPPLEMEN MARCIA AARP MEDIC ARE SUPPL Aug 19, 2019 PLAN MY [id number] [phone] MEEK,GR ICEL PATIENT AARP INS MEDICARE SUPPLEMEN MARCIA PLANM Y Aug 19, 2019 PLANMY [id number] MEEK,GR ICEL PATIENT AARP MED SUPP MEDICARE SUPPLEMEN MARCIA Jul 19, 2010 PLANMY [id number] [phone] MEEK,GR ICEL PATIENT MEDICARE (WNR) MEDICARE () PART B Aug 19, 2008 PART B [id number] [phone] MEEK,GR ICEL PATIENT MEDICARE (WNR) MEDICARE () PART B Aug 19, 2008 PART B [id number] [phone] MEEK,GR ICEL PATIENT MEDICARE (WNR) MEDICARE () PART B Aug 19, 2008 PART B [id number] [phone] MEEK,GR ICEL PATIENT MEDICARE (WNR) MEDICARE () PART B Aug 19, 2008 PART B [id number] MEEK,GR ICEL PATIENT MEDICARE (WNR) MEDICARE () PART B Aug 19, 2008 PART B [id number] MEEK,GR ICEL PATIENT MEDICARE (WNR) MEDICARE () PART B Aug 19, 2008 PART B [id number] [phone] MEEK,GR ICEL PATIENT MEDICARE (WNR) MEDICARE () PART B Aug 19, 2008 PART B [id number] MEEK,GR ICEL PATIENT MEDICARE (WNR) MEDICARE () PART A December 18, 2003 PART A [id number] [phone] MEEK,GR ICEL PATIENT MEDICARE (WNR) MEDICARE () PART A December 18, 2003 PART A [id number] [phone] MEEK,GR ICEL PATIENT MEDICARE (WNR) MEDICARE () PART A December 18, 2003 PART A [id number] MEEK,GR ICEL PATIENT MEDICARE (WNR) MEDICARE () PART A December 18, 2003 PART A [id number] MEEK,GR ICEL PATIENT MEDICARE (WNR) MEDICARE () PART A December 18, 2003 PART A [id number] MEEK,GR ICEL PATIENT MEDICARE (WNR) MEDICARE () PART A December 18, 2003 PART A [id number] SABINE MEEK PATIENT MEDICARE (WNR) MEDICARE (M) PART A December 18, 2003 PART A [id number] SABINE MEEK PATIENT Selected Encounter This section includes the information on record at [place] for the Encounter. Date/Time Encounter Type Encounter Description Reason Pro vider Source Dec 11, 2023 08:12 AM Outpatient Encounter DENTAL IHE Encounter Template Text not used by [place] Plan of Treatment: Future Appointments (+ 6 months) and Future Tests (+/- 45 days) The Plan of Treatment section includes future care activities for the patient from all [place] treatmentfacilities. This section includes future appointments and future orders which are active, pending or scheduled. Future Appointments This section includes appointments that were scheduled to occur 6 months from the date of the Encounter, up to a maximum of 20 appointments. The data comes from all [place] treatment facilities. Appointment Date/Time Appointment Type Appointme nt Facility Name Dec 12, 2023 11:30 AM [facility] NONE [facility] [place] [facility] Dec 16, 2023 01:00 PM AM[facility]UL[facility]ORY [facility]ATRY [facility] [place] [facility] December 23, 2023 01:00 PM AMBULATORY [facility]AT[facility] [place] [facility] December 31, 2023 09:00 AM [place] [facility] [place] [facility] January 06, 2024 11:00 AM [facility] [place] [facility] January 06, 2024 01:00 PM AMBULATORY [facility]IATRY [facility] [place] [facility] January 07, 2024 08:00 AM [place] [facility] [place] [facility] January 09, 2024 09:00 AM AMBULAT[facility] [place] [facility] January 14, 2024 09:30 AM [place] [facility] [place] [facility] January 16, 2024 10:30 AM AMBULATORY - NONE [facility] [place] [facility] Jan 20, 2024 01:00 PM AMBULATORY [facility]ATRY [facility] [place] [facility] Jan 22, 2024 03:00 PM AMBULATORY - NONE [facility] [place] [facility] Jan 27, 2024 01:00 PM AMBULATORY [facility]IATRY [facility] [place] [facility] Feb 03, 2024 01:00 PM [facility] [place] [facility] Feb 10, 2024 01:00 PM AMBULATORY - [facility]AT[facility] [place] [facility] Feb 10, 2024 02:00 PM AMBULATORY - NONE [facility] [place] [facility] Feb 17, 2024 12:30 PM AMBULATORY - NONE [facility] [place] [facility] Feb 17, 2024 01:00 PM AMBULATORY [facility]RY [facility] [place] [facility] Feb 21, 2024 08:30 AM [facility] [place] [facility] Feb 24, 2024 01:00 PM [place] [facility] [place] [facility] Lab Results: +/- 30 days of the [...] Range Comment Nov 15, 2023 10:10 [facility] MICROALBUMIN CREATININE RATIO PANEL Specimen Type: URINE No comment entered. Ordering Provider: WALE FELIZ Report Released Date/Time: Nov 15, 2023 09:56 AM Reporting [facility] [address] [facility] [address] Performing Lab: [place] [facility] [place] [facility] [address] [facility] [address] MICROALBUMIN/C REATININE RATIO canc mg/g 0-29.9 MICROALBUMIN,Q UANTITATIVE < 0.5 mg/dL RR UNAVAIL CREATININE URINE 34.74 mg/dL Nov 15, 2023 10:10 AM [place] [facility] VITAMIN B12 Specimen Type: SERUM No comment entered. Ordering Provider: WALE FELIZ Report Released Date/Time: Nov 15, 2023 09:56 AM Reporting Lab: [place] [facility] [address] [address] Performing Lab: [address] [address] VITAMIN B12 806 pg/mL 200-900 Nov 15, 2023 10:10 AM [facility] HEMOGLOBIN A1C PANEL Specimen Type: BLOOD No comment entered. Ordering Provider: WALE FELIZ Report Released Date/Time: Nov 15, 2023 09:56 AM Reporting Lab: [address] [address] Performing Lab: [address] [address] HEMOGLOBIN A1C 6.1 H 4.0-5.6 Nov 15, 2023 10:10 AM [facility] VITAMIN D (25-OH) Specimen Type: SERUM No comment entered. Ordering Provider: WALE FELIZ Report Released Date/Time: Nov 15, 2023 09:56 AM Reporting Lab: [address] [address] Performing Lab: [address] [address] VITAMIN D (25-OH) 54 ng/mL H 20-50 Nov 15, 2023 10:10 AM [facility] BASIC METABOLIC PANEL (non-fasting) Specimen Type: SERUM No comment entered. Ordering Provider: WALE FELIZ Report Released Date/Time: Nov 15, 2023 09:56 AM Reporting Lab: [address] [address] Performing Lab: [address] [address] UREA NITROGEN 6 mg/dL L 7-25 GLUCOSE 168 mg/dL H 65-100 SODIUM 134 mmol/L L 135-145 POTASSIUM 4.3 mmol/L 3.5-5.0 CHLORIDE 99 mmol/L L 100-110 CO2 25 meq/L 20-30 CREATININE, Serum 0.66 mg/dL 0.50-1.40 eGFR(CKD-EPI 2021) >90 mL/min >60 Social History: Smoking Status (Most current) and Tobacco Use (All prior to encounter date) This section includes the most current, and the historical, smoking and tobacco- related health factors from the [place] facility where the Encounter took place. Current Smoking Status This section includes the most current smoking, or tobacco-related health factor, from the [place] facility where the Encounter took place. Date/Time Current Smoking Status Comment [facility] it Feb 08, 2023 10:00 AM VA-TOBACCO FORMER USER [place] [facility] [place] [facility] Tobacco Use History This section includes a history of the smoking, or tobacco-related health factors, that were collected on or before the date of the Encounter. The data comes from the [place] facility where the Encounter took place. Date/Time Smoking Status/Tobac co Use Comment Facility Feb 08, 2023 10:00 AM VA-TOBACCO QUIT 15 YRS OR MORE [facility] [place] [facility] Mar 06, 2022 02:30 PM VA-TOBACCO FORMER USER [facility] [place] [facility] Mar 06, 2022 02:30 PM VA-TOBACCO QUIT 15 YRS OR MORE [facility] [place] [facility] Apr 04, 2021 10:28 AM VA-TOBACCO NEVER USED [place] [facility] [place] [facility] May 03, 2020 02:00 PM VA-TOBACCO NEVER USED [place] [facility] [place] [facility] Feb 25, 2019 08:14 AM VA-TOBACCO FORMER USER [facility] [place] [facility] Feb 25, 2019 08:14 AM VA-TOBACCO QUIT 5 TO < 15 YRS [facility] [place] [facility] Apr 04, 2018 10:41 AM QUIT TOBACCO USE 1-7 YEARS AGO [facility] [place] [facility] Oct 28, 2017 10:18 AM QUIT TOBACCO USE 1-7 YEARS AGO [facility] [place] [facility] Jan 22, 2017 01:08 PM QUIT TOBACCO USE 1-7 YEARS AGO [facility] [place] [facility] Jul 18, 2016 01:34 PM QUIT TOBACCO USE 1-7 YEARS AGO [facility] [place] [facility] January 10, 2016 10:32 AM QUIT TOBACCO USE 1-7 YEARS AGO [facility] [place] [facility] Oct 13, 2015 11:05 AM QUIT TOBACCO USE 1-7 YEARS AGO [facility] [place] [facility] Oct 19, 2014 01:53 PM QUIT TOBACCO USE > 7 YEARS AGO [facility] [place] [facility] January 02, 2014 01:30 AM QUIT TOBACCO USE IN PAST YEAR [facility] [place] [facility] Jun 18, 2013 09:00 AM CURRENT SMOKER 6 cigarettes qd [facility] Jun 18, 2013 09:00 AM V1-PT DECLINES TOBACCO CESSATION MEDS [facility] Jun 18, 2013 09:00 AM V1-PT NOT INTERESTED IN QUIT TOBACCO USE [facility] December 24, 2012 10:51 AM V1-PT DECLINES REF TO TOBACCO CESS PRGM [facility] December 24, 2012 10:51 AM V1-PT DECLINES TOBACCO CESSATION MEDS [facility] December 24, 2012 10:51 AM V1-PT THINKING ABOUT QUIT TOBACCO USE [facility] Jul 15, 2012 10:19 AM QUIT TOBACCO USE IN PAST YEAR [facility] Jan 25, 2012 05:02 PM QUIT TOBACCO USE IN PAST YEAR [facility] Sep 28, 2011 10:09 AM CURRENT SMOKER 5 cigarettes a day [facility] Jun 15, 2011 02:23 PM V1-PT DECLINES REF TO TOBACCO CESS PRGM [facility] Jun 15, 2011 02:23 PM V1-PT READY TO QUIT TOBACCO USE [facility] [place] [facility] Apr 13, 2011 10:31 AM V1-PT DECLINES REF TO TOBACCO CESS [facility] Apr 13, 2011 10:31 AM V1-PT RECEIVES TOBACCO CESS MEDS OUTSIDE [facility] Apr 13, 2011 10:31 AM V1-PT THINKING ABOUT QUIT TOBACCO USE [facility] Oct 16, 2010 08:52 AM QUIT TOBACCO USE IN [facility]ST [facility]AR [facility] May 12, 2010 02:08 PM V1-PT DECLINES REF TO TOBACCO CESS PRGM [facility] May 12, 2010 02:08 PM V1-PT READY TO QUIT TOBACCO USE [facility] May 12, 2010 12:45 PM CURRENT SMOKER 3 cigarettes a day [facility] Radiology Reports: +/- 30 days of [...] data comes from all [facility] facilities. Date/Time Radiology Report Provider Source Nov 15, 2023 10:22 AM ELBOW 3 OR MORE VIEWS(LEFT): PEBBLES MEEK [id number] [id number] Exm Date: NOV 15, 2023@10:22 Req Phys: CADEN FELIZ Loc: CWM/NO/PACT 6 WH (Req'g Loc) Img Loc: [facility] 1 Service: Unknown (Case [id number] COMPLETE) ELBOW 3 OR MORE VIEWS(LEFT) (RAD Detailed) CPT:11881 Reason for Study: pain and swelling left elbow Clinical History: 73yo woman with h/o traumatic injury in 20s, Report Status: Verified Date Reported: NOV 15, 2023 Date Verified: NOV 15, 2023 Train Operations Manager E-Sig:/ES/NEMO RODRIGUEZ JR Report: Study: AP, lateral, [...] Primary Interpreting Staff: NEMO RODRIGUEZ JR, Radiologist (Train Operations Manager) /NMEO WEISS JR [facility] Encounter Notes: All associated encounter notes This section contains the clinical notes associated to the Encounter. Date/Time Encounter Note(s) Provider Source Dec 11, 2023 08:12 AM DENTISTRY TELEPHON E ENCOUNTER NOTE: LOCAL TITLE: TELEPHONE NOTE/DENTAL STANDARD TITLE: DENTISTRY TELEPHONE ENCOUNTER NOTE DATE OF NOTE: DEC 11, 2023@08:12 ENTRY DATE: DEC 11, 2023@08:12:12 AUTHOR: SHANTA ANTOINE EXP COSIGNER: URGENCY: STATUS: COMPLETED Spoke with pt to confirm dental appointment on 12/12/2023 at 11:30am /jeana/ SHANTA ANTOINE [address] OPENINGS INSPECTOR Signed: 12/11/2023 08:13 SHANTA ANTOINE [facility]
--- OUTSIDE RECORDS SUMMARY | 2024-08-04 16:44 | XMS_ITS | Encounter Summary ---
Author Name [facility] [place] [facility] [place] Address [address] [place] [address] Care Team Providers Care Pvc Loader Name Role Phone CADEN FELIZ Primary Care [...] PLAN I Aug 19, 2019 PLAN I [id number] MEEK,SABINE ICEL PATIENT [employer] OPT[employer] MEDICARE SUPPLEMEN MARCIA PLANM Y Aug 19, 2019 PLANMY [id number] [phone] MEEK,GR ICEL PATIENT [employer] OPTIONS MEDICARE SUPPLEMEN MARCIA AARP MEDIC ARE SUPPL Aug 19, 2019 PLAN MY [id number] MEEK,SABINE ICEL PATIENT [employer] INS MEDICARE SUPPLEMEN MARCIA PLANM Y Aug 19, 2019 PLANMY [id number] MEEK,GR ICEL PATIENT AARP MED SUPP MEDICARE SUPPLEMEN MARCIA Jul 19, 2010 PLANMY [id number] [phone] MEEK,GR ICEL PATIENT MEDICARE (WNR) MEDICARE () PART B Aug 19, 2008 PART B [id number] MEEK,GR ICEL PATIENT MEDICARE (WNR) MEDICARE () PART B Aug 19, 2008 PART B [id number] [phone] MEEK,GR ICEL PATIENT MEDICARE (WNR) MEDICARE () PART B Aug 19, 2008 PART B [id number] [phone] MEEK,GR ICEL PATIENT MEDICARE (WNR) MEDICARE () PART B Aug 19, 2008 PART B [id number] [phone] MEEK,GR ICEL PATIENT MEDICARE (WNR) MEDICARE () PART B Aug 19, 2008 PART B [id number] [phone] MEEK,GR ICEL PATIENT MEDICARE (WNR) MEDICARE () PART B Aug 19, 2008 PART B [id number] MEEK,GR ICEL PATIENT MEDICARE (WNR) MEDICARE () PART B Aug 19, 2008 PART B [id number] [phone] MEEK,GR ICEL PATIENT MEDICARE (WNR) MEDICARE () PART A December 18, 2003 PART A [id number] MEEK,GR ICEL PATIENT MEDICARE (WNR) MEDICARE () PART A December 18, 2003 PART A [id number] MEEK,GR ICEL PATIENT MEDICARE (WNR) MEDICARE () PART A December 18, 2003 PART A [id number] [phone] MEEK,GR ICEL PATIENT MEDICARE (WNR) MEDICARE () PART A December 18, 2003 PART A [id number] MEEK,GR ICEL PATIENT MEDICARE (WNR) MEDICARE () PART A December 18, 2003 PART A [id number] [phone] MEEK,GR ICEL PATIENT MEDICARE (WNR) MEDICARE () PART A December 18, 2003 PART A [id number] SABINE MEEK PATIENT MEDICARE (WNR) MEDICARE (M) PART A December 18, 2003 PART A [id number] SABINE MEEK PATIENT Selected Encounter This section includes the information on record at [place] for the Encounter. Date/Time Encounter Type Encounter Description Reason Provider Source Dec 12, 2023 11:30 AM DENTAL PANORAMIC IMAGE DENTAL ICD-10-CM K08.409 Partial loss of teeth, unspecified cause, unspecified class MARK GARCIA E Encounter Template Text not used by [place] Assessments - Encounter Diagnoses This section includes the primary and secondary diagnoses documented for the Encounter. Date/Time Primary/Secondary Diagnosis Diagnosis Name Provider Source Dec 12, 2023 12:23 PM PRIMARY Partial loss of teeth, unspecified cause, unspecified class MARK GARCIA [place] [facility] [place] [facility] Plan of Treatment: Future Appointments (+ 6 months) and Future Tests (+/- 45 days) The Plan of Treatment section includes future care activities for the [facility] [place] [facility] This section includes future appointments and future orders which are active, pending or scheduled. Future Appointments This section includes appointments that were scheduled to occur 6 months from the date of the Encounter, up to a maximum of 20 appointments. The data comes from all [place] treatment facilities. Appointment Date/Time Appointment Type Appointme nt Facility Name Dec 16, 2023 01:00 PM AMBULATORY - [place]ATRY [place] [facility] [place] [facility] December 23, 2023 01:00 PM AMBULATORY - [place]AT[place] [facility] [place] [facility] December 31, 2023 09:00 AM AMBULATORY - MEDICINE [place] [facility] [place] [facility] January 06, 2024 11:00 AM AMBULATORY - [place]ATRY [place] [facility] [place] [facility] January 06, 2024 01:00 PM AMBULATORY - [place]ATRY [place] [facility] [place] [facility] January 07, 2024 08:00 AM AMBULATORY [place]ICINE [place] [facility] [place] [facility] January 09, 2024 09:00 AM AMBULATORY [place]ATRY [place] [facility] [place] [facility] January 14, 2024 09:30 AM AMBULATORY [place] MEDICINE [place] [facility] [place] [facility] January 16, 2024 10:30 AM [...] - PSYCHIATRY [facility] [place] [facility] Feb 28, 2024 11:30 AM AMBULATORY - MEDICINE [facility] [place] [facility] Lab Results: +/- 30 days of the encounter This section includes the Chemistry and Hematology Lab Results on record with [place] for the patient. Radiology Reports and Pathology Reports are provided separately, in subsequent sections. Lab Results This section contains the Chemistry/Hematology Results that were resulted 30 days before or 30 daysafter the date of the Encounter. Date/Time Source Result Type Result - Unit Interpretation Reference Range Comment Nov 15, 2023 10:10 AM [place] [facility] [place] [facility] VITAMIN B12 Specimen Type: SERUM No comment entered. Ordering Provider: WALE FELIZ Report Released Date/Time: Nov 15, 2023 09:56 AM Reporting Lab: [place] [facility] [place] [facility] [address] [facility] [address] Performing Lab: [place] [facility] [address] [address] VITAMIN B12 806 pg/mL 200-900 Nov 15, 2023 10:10 AM [facility] MICROALBUMIN CREATININE RATIO PANEL Specimen Type: URINE No comment entered. Ordering Provider: WALE FELIZ Report Released Date/Time: Nov 15, 2023 09:56 AM Reporting [facility] [address] [facility] [address] Performing Lab: [address] [address] MICROALBUMIN/C REATININE RATIO canc mg/g 0-29.9 MICROALBUMIN,Q UANTITATIVE < 0.5 mg/dL RR UNAVAIL CREATININE URINE 34.74 mg/dL Nov 15, 2023 10:10 AM [facility] HEMOGLOBIN A1C PANEL Specimen Type: BLOOD No comment entered. Ordering Provider: WALE FELIZ Report Released Date/Time: Nov 15, 2023 09:56 AM Reporting Lab: [address] [address] Performing Lab: [address] [address] HEMOGLOBIN A1C 6.1 H 4.0-5.6 Nov 15, 2023 10:10 AM [facility] VITAMIN D (25-OH) Specimen Type: SERUM No comment entered. Ordering Provider: WALE FELIZ Report Released Date/Time: Nov 15, 2023 09:56 AM Reporting Lab: [address] [address] Performing Lab: [address] [address] VITAMIN D (25-OH) 54 ng/mL H 20-50 Nov 15, 2023 10:10 AM [facility] BASIC METABOLIC PANEL (non-fasting) Specimen Type: SERUM No comment entered. Ordering Provider: WALE FELIZ Report Released Date/Time: Nov 15, 2023 09:56 AM Reporting Lab: [address] [address] Performing Lab: [facility] [place] [facility] [address] [facility] [address] UREA NITROGEN 6 mg/dL L 7-25 GLUCOSE [...] and tobacco- related health factors from the [place] facility where the Encounter took place. Current Smoking Status This section includes the most current smoking, or tobacco-related health factor, from the [place] facility where the Encounter took place. Date/Time Current Smoking Status Comment [facility] Feb 08, 2023 10:00 AM VA-TOBACCO [facility] Tobacco Use History This section includes a history of the smoking, or tobacco-related health factors, that were collected on or before the date of the Encounter. The data comes from the [place] facility where the Encounter took place. Date/Time Smoking Status/Tobac co Use Comment Facility Feb 08, 2023 10:00 AM VA-TOBACCO QUIT 15 YRS OR MORE [place] [facility] [place] [facility] Mar 06, 2022 02:30 PM VA-TOBACCO FORMER USER [place] [facility] [place] [facility] Mar 06, 2022 02:30 PM VA-TOBACCO QUIT 15 YRS OR MORE [place] [facility] [place] [facility] Apr 04, 2021 10:28 AM VA-TOBACCO NEVER USED [place] [facility] [place] [facility] May 03, 2020 02:00 PM VA-TOBACCO NEVER USED [place] [facility] [place] [facility] Feb 25, 2019 08:14 AM VA-TOBACCO FORMER USER [place] [facility] [place] [facility] Feb 25, 2019 08:14 AM VA-TOBACCO QUIT 5 TO < 15 YRS [place] [facility] [place] [facility] Apr 04, 2018 10:41 AM QUIT TOBACCO USE 1-7 YEARS AGO [place] [facility] [place] [facility] Oct 28, 2017 10:18 AM QUIT TOBACCO USE 1-7 YEARS AGO [facility] [place] [facility] Jan 22, 2017 01:08 PM QUIT TOBACCO USE 1-7 YEARS AGO [facility] [place] [facility] Jul 18, 2016 01:34 PM QUIT TOBACCO USE 1-7 YEARS AGO [facility] [place] [facility] January 10, 2016 10:32 AM QUIT TOBACCO USE 1-7 YEARS AGO [facility] [place] [facility] Oct 13, 2015 11:05 AM QUIT TOBACCO USE 1-7 YEARS AGO [place] [facility] [place] [facility] Oct 19, 2014 01:53 PM QUIT TOBACCO USE > 7 YEARS AGO [facility] [place] [facility] January 02, 2014 01:30 AM QUIT TOBACCO USE IN PAST YEAR [place] [facility] [place] [facility] Jun 18, 2013 09:00 AM CURRENT SMOKER 6 cigarettes qd [place] [facility] [place] [facility] Jun 18, 2013 09:00 AM V1-PT DECLINES TOBACCO CESSATION MEDS [place] [facility] [place] [facility] Jun 18, 2013 09:00 AM V1-PT NOT INTERESTED IN QUIT TOBACCO USE [facility] [place] [facility] December 24, 2012 10:51 AM V1-PT DECLINES REF TO TOBACCO CESS PRGM [facility] [place] [facility] December 24, 2012 10:51 AM V1-PT DECLINES TOBACCO CESSATION MEDS [place] [facility] [place] December 24, 2012 10:51 AM V1-PT THINKING ABOUT QUIT TOBACCO USE [facility] [place] [facility] Jul 15, 2012 10:19 AM QUIT TOBACCO USE IN PAST YEAR [place] [facility] [place] [facility] Jan 25, 2012 05:02 PM QUIT TOBACCO USE IN PAST YEAR [place] [facility] [place] [facility] Sep 28, 2011 10:09 AM CURRENT SMOKER 5 cigarettes a day [facility] [place] [facility] Jun 15, 2011 02:23 PM V1-PT DECLINES REF TO TOBACCO CESS PRGM [facility] [place] [facility] Jun 15, 2011 02:23 PM V1-PT READY TO QUIT TOBACCO USE [facility] [place] [facility] Apr 13, 2011 10:31 AM V1-PT DECLINES REF TO TOBACCO CESS PRGM [facility] Apr 13, 2011 10:31 AM V1-PT RECEIVES TOBACCO CESS MEDS OUTSIDE [facility] Apr 13, 2011 10:31 AM V1-PT THINKING ABOUT QUIT TOBACCO USE [facility] Oct 16, 2010 08:52 AM QUIT TOBACCO USE IN PAST YEAR [facility] May 12, 2010 02:08 PM V1-PT DECLINES REF TO TOBACCO CESS PRGM [facility] May 12, 2010 02:08 PM V1-PT READY TO QUIT TOBACCO USE [facility] May 12, 2010 12:45 PM CURRENT SMOKER 3 cigarettes a day [facility] Radiology Reports: +/- 30 days of [...] data comes from all [facility] facilities. Date/Time Radiology Report Provider Source Nov 15, 2023 10:22 AM ELBOW 3 OR MORE VIEWS(LEFT): PEBBLES MEEK [id number] -1950 F Exm Date: NOV 15, 2023@10:22 Req Phys: CADEN FELIZ Loc: CWM/NO/PACT 6 WH (Req'g Loc) g Loc: [facility] 1 Service: Unknown (Case [id number] COMPLETE) ELBOW 3 OR MORE VIEWS(LEFT) (RAD Detailed) CPT:15458 Reason for Study: pain and swelling left elbow Clinical History: 73yo woman with h/o traumatic injury in 20s, Report Status: Verified Date Reported: NOV 15, 2023 Date Verified: NOV 15, 2023 Treasury Associate E-Sig:/ES/NEMO RODRIGUEZ JR Report: Study: AP, lateral, [...] Primary Interpreting Staff: NEMO RODRIGUEZ JR, Radiologist (Treasury Associate) /NEMO WEISS JR [facility] Encounter Notes: All associated encounter notes This section contains the clinical notes associated to the Encounter. Date/Time Encounter Note(s) Provider Source Dec 16, 2023 02:43 PM DENTISTRY CONSULT: LOCAL TITLE: CONSULT REPORT/DENTAL STANDARD TITLE: DENTISTRY CONSULT DATE OF NOTE: DEC 16, 2023@14:43 ENTRY DATE: DEC 16, 2023@14:43:42 AUTHOR: HAL GARCIA EXP COSIGNER: URGENCY: STATUS: COMPLETED Patient seen in Dental, xray images made /es/ BRYSON GREWAL Implementation Analyst, Chief Dental Service Signed: 12/16/2023 14:43 BRYSON GARCIA [facility] Dec 12, 2023 12:22 PM DENTISTRY NOTE: LOCAL TITLE: DENTAL NOTE STANDARD TITLE: DENTISTRY NOTE DATE OF NOTE: DEC 12, 2023@12:22 ENTRY DATE: DEC 12, 2023@12:23:53 AUTHOR: HAL GARCIA EXP COSIGNER: URGENCY: STATUS: COMPLETED Patient Name: PEBBLES MEEK, : 1950, Age: 73 Visit: S: Dec 12, 2023@11:30 CWM/NO/DENTAL/DMD4. Primary PCE Diagnosis: K08.409 (Partial loss of teeth, unspecified cause, unspecified class). Dental Category: 15-OPC, Class IV. Treatment Status: Maintenance. Completed Care: (D0120) PERIODIC ORAL EVAL EST. DX: K08.409 Partial Loss of Teeth, unspecified Cause, unspecified Class (D0330) DENTAL PANORAMIC IMAGE. DX: K08.409 Partial Loss of Teeth, unspecified Cause, unspecified Class Presentation/Chief Complaint: Patient presents for periodic oral evaluation patient reports upper ovCD/ does not stay in, was remade by community care dentist. patient requesting fixed denture. Vital Signs: Vital signs not obtained Past Medical History and Medications: No significant changes since the last dental visit History of: Diabetes, Cardiac condition, Afib and anticoagulants Active Problems: Exposure to potentially hazardous substance ([facility] [id number]) Long-term current use of anticoagulant ([facility] 662047450) Gastro-esophageal reflux disease with esophagitis ([facility] 320420913) Migraine ([facility] 08138022) Vertigo ([facility] 496671174) NAFLD - Nonalcoholic fatty liver disease ([facility] 023394620) Vitamin D deficiency ([facility] 22397082) 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r mental disorder ([facility] 10831226) Urge incontinence of urine ([facility] 810516942) Osteopenia ([facility] 747079323) Sciatica ([facility] 13573415) Obesity ([facility] 088113467) Chronic obstructive lung disease ([facility] 03092851) Diabetes mellitus ([facility] 64028574) Restless Leg Syndrome (ICD-9-CM 333.94) Knee pain ([facility] 1681211211) Paroxysmal atrial fibrillation ([facility] 570897178) Other and unspecified Sleep Apnea (ICD-9-CM 780.57) Hyperlipidemia ([facility] 86847676) Chronic anxiety ([facility] 404763222) Asthma ([facility] 059082794) Chronic depression ([facility] 289235746) PTSD - Post-traumatic stress disorder (MST) ([facility] 92608422) Knee Joint replacement Status (Prosthetic or Artificial Device) (ICD- 9-CM V43.65) Active Medications: ---- Outpatient Medication ---- LORAZEPAM 0.5MG TAB - (PENDING) APIXABAN 5MG TAB - (ACTIVE) DILTIAZEM (EQV-TIAZAC) 240MG 24HR CAP - (ACTIVE) SERTRALINE(ZOLOFT) 100MG TAB*BRAND NAME* - (ACTIVE) TRAZODONE HCL 100MG TAB - (ACTIVE) METFORMIN HCL 1000MG TAB - (ACTIVE) CYANOCOBALAMIN 100MCG TAB - (ACTIVE) KETOTIFEN 0.025% OPH SOLN - (ACTIVE) CETIRIZINE HCL 10MG TAB - (ACTIVE) IBUPROFEN 800MG TAB - (ACTIVE) ALBUTEROL 3/IPRATROP 0.5MG/3ML INHL 3ML - (ACTIVE) FORMOTEROL 5/MOMETASONE 200MCG 120D INHL - (ACTIVE) VITAMIN E CAP,ORAL - (ACTIVE) OTHER CAP/TAB - (ACTIVE) OTHER CAP/TAB - (ACTIVE) TURMERIC CAP/TAB - (ACTIVE) OTHER CAP/TAB - (ACTIVE) OTHER CAP/TAB - (ACTIVE) DIPHENHYDRAMINE HCL 25MG CAP - (ACTIVE) OTHER CAP/TAB - (ACTIVE) ZINC 50MG (FROM SULFATE) CAP - (ACTIVE) FISH OIL 500MG DHA/EPA CAP,ORAL - (ACTIVE) Active Allergies: SULFUR SIMVASTATIN [ZOCOR] NIACIN VARENICLINE MOXIFLOXACIN MIRTAZAPINE ASPIRIN RELATED MEDICATIONS ATORVASTATIN Intraoral and Extraoral Screening Exam Findings: 12/12/2023 Head and neck assessment with oral cancer screening is negative: no apparent pathology noted. Radiographic Findings: Radiographic findings consistent with charted entries Oral Examination: Oral Health Assessment Findings: Plaque Index: 1 - Slight Xerostomia: 1 - Slight Caries Risk: 1 - Low ??-- ASHISH Oral Hygiene: 1 - Good Dental Examination: Missing Teeth: 1, 2, 3, 4, 5, 6, 7, 8, 9, 10, 11, 12, 13, 14, 15, 16, 17, 18, 19, 28, 29, 30, 31, 32. Defective Mandaen: 20(O) Misc, 22(I) Amalgam. 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 Please see DR Plus for perio charting graphic.) - - - - - - - - - - - - - - - - - - - - - - - - - - - - - - - - - - - TOOTH 1 2 3 4 5 6 7 8 9 10 11 12 13 14 15 16 - - - -~- -~- -~- -~- -~- -~- -~- -~- -~- -~- -~- -~- -~- -~- -~- -~- F FGM 122 - - - -~- -~- -~- -~- -~- -~- -~- -~- -~- -~- -~- -~- -~- -~- -~- -~- TOOTH 32 31 30 29 28 27 26 25 24 23 22 21 20 19 18 17 - - - -~- -~- -~- -~- -~- -~- -~- -~- -~- -~- -~- -~- -~- -~- -~- -~- F FGM 002 001 001 001 000 010 020 013 F PD 222 313 313 312 212 213 313 313 322 L PD 222 223 312 212 313 313 313 323 312 L FGM 0 100 100 100 000 000 000 100 224 - - - - - - - - - - - - - - - - - - - - - - - - - - - - - - - - - - - AGUIRRE: B=Bleeding b=Delayed Bleeding S=Suppuration *=Pocket/MGJ > 9 +=FGM coronal to CEJ (Periodontal chart may be a composite of entries from different dates) TMJ Findings: History: Patient reports symptoms associated with TMJ's: Other: intermittent pain over TMJ area related to clenching, currently asymptomatic Clinical Findings: Popping/Clicking: None Crepitus: None Pain to manipulation: None Deviation upon opening: None Assessment/Plan: Dentition in satisfactory repair and function. Planned Procedures: Non-[facility] Care (D6010) ENDOSTEAL IMPLANT BODY PLACE: 13. DX: (K08.409); K08.409. Phase 1 (D6056) PREFABRICATED ABUTMENT: 15. DX: (K08.409). (D6056) PREFABRICATED ABUTMENT: 13. DX: (K08.409). (D6056) PREFABRICATED ABUTMENT: 5. DX: (K08.409). (D6056) PREFABRICATED ABUTMENT: 3. DX: (K08.409). (D6110) IMPL/ABUT SUPT REMV DENT MAX: Upper. DX: (K08.131). (D6113) IMPL/ABUT SUPT REMV PRTL MAN: Lower. DX: (K08.131). Sequencing Notes: Recomending implant #6 and #11 consult with CVOS and extraction #5. 07/23/2018 OM[facility] only able to place implants 3,13,15,18,28,31 possibly 13 Disposition: Next visit: 2-4 weeks Patient to return to dental clinic for continuing care. Patient to return for additional evaluation and IMplant Risk Assessment to discuss current prosthesis function, options advised that a referral to [facility] would be an apporpriate assessment and evaluation if warranted - - - - - - - - - - - - - - - - - - - - - - - - - - - - - - /jeana/ BRYSON GREWAL Implementation Analyst, Chief Dental Service Signed: 12/12/2023 12:23 BRYSON GARCIA [place] [facility]
--- OUTSIDE RECORDS SUMMARY | 2024-08-04 16:44 | XMS_ITS ---
Author Name [facility] [place] Organization [facility] [place] Address [address] [place] [address] Care Team Providers Care Composite Laminator Name Role Phone CADEN FELIZ Primary Care [...] Member ID Insurance Provider's Telephone Number Policy Shelotn's Name Patient's Relationship to Policy Shelton A[employer] MEDICARE SUPPLEMEN MARCIA PLAN I Aug 19, 2019 PLAN I [id number] MEEK,SABINE ICEL PATIENT [employer] OPTIONS MEDICARE SUPPLEMEN MARCIA PLANM Y Aug 19, 2019 PLANMY [id number] MEEK,GR ICEL PATIENT [employer] OPTIONS MEDICARE SUPPLEMEN MARCIA AARP MEDIC ARE SUPPL Aug 19, 2019 PLAN MY [id number] MEEK,SABINE ICEL PATIENT AARP INS MEDICARE SUPPLEMEN MARCIA PLANM Y Aug 19, 2019 PLANMY [id number] [phone] MEEK,GR ICEL PATIENT AARP MED SUPP MEDICARE SUPPLEMEN MARCIA Jul 19, 2010 PLANMY [id number] [phone] MEEK,GR ICEL PATIENT MEDICARE (WNR) MEDICARE () PART B Aug 19, 2008 PART B [id number] MEEK,GR ICEL PATIENT MEDICARE (WNR) MEDICARE () PART B Aug 19, 2008 PART B [id number] MEEK,GR ICEL PATIENT MEDICARE (WNR) MEDICARE () PART B Aug 19, 2008 PART B [id number] [phone] MEEK,GR ICEL PATIENT MEDICARE (WNR) MEDICARE () PART B Aug 19, 2008 PART B [id number] MEEK,GR ICEL PATIENT MEDICARE (WNR) MEDICARE () PART B Aug 19, 2008 PART B [id number] [phone] MEEK,GR ICEL PATIENT MEDICARE (WNR) MEDICARE () PART B Aug 19, 2008 PART B [id number] [phone] MEEK,GR ICEL PATIENT MEDICARE (WNR) MEDICARE () PART B Aug 19, 2008 PART B [id number] MEEK,GR ICEL PATIENT MEDICARE (WNR) MEDICARE () PART A December 18, 2003 PART A [id number] MEEK,GR ICEL PATIENT MEDICARE (WNR) MEDICARE () PART A December 18, 2003 PART A [id number] [phone] MEEK,GR ICEL PATIENT MEDICARE (WNR) MEDICARE () PART A December 18, 2003 PART A [id number] [phone] MEEK,GR ICEL PATIENT MEDICARE (WNR) MEDICARE () PART A December 18, 2003 PART A [id number] MEEK,GR ICEL PATIENT MEDICARE (WNR) MEDICARE () PART A December 18, 2003 PART A [id number] MEEK,GR ICEL PATIENT MEDICARE (WNR) MEDICARE () PART A December 18, 2003 PART A [id number] SABINE MEEK PATIENT MEDICARE (WNR) MEDICARE (M) PART A December 18, 2003 PART A [id number] SABINE MEEK PATIENT Selected Encounter This section includes the information on record at [place] for the Encounter. Date/Time Encounter Type Encounter Description Reason Pro vider Source Dec 12, 2023 08:53 AM Outpatient Encounter [facility] Encounter Template Text not used by [place] Plan of Treatment: Future Appointments (+ 6 months) and Future Tests (+/- 45 days) The Plan of Treatment section includes future care activities for the patient from all [place] treatmentfacilities. This section includes future appointments and future orders which are active, pending or scheduled. Future Appointments This section includes appointments that were scheduled to occur 6 months from the date of the Encounter, up to a maximum of 20 appointments. The data comes from all [place] treatment facilities. Appointment Date/Time Appointment Type Appointme nt Facility Name Dec 16, 2023 01:00 PM [facility] [place] [facility] December 23, 2023 01:00 PM [facility] [place] [facility] December 31, 2023 09:00 AM AMBULATORY - MEDICINE [facility] [place] [facility] January 06, 2024 11:00 AM AMBULATORY [facility] [place] [facility] January 06, 2024 01:00 PM AMBULATORY [facility] [place] [facility] January 07, 2024 08:00 AM AMBULATORY - MEDICINE [facility] [place] [facility] January 09, 2024 09:00 AM AMBULATORY [facility] [place] [facility] January 14, 2024 09:30 AM AMBULATORY - MEDICINE [facility] [place] [facility] January 16, 2024 10:30 AM AMBULATORY - NONE [facility] [place] [facility] Jan 20, 2024 01:00 PM AMBULATORY - PS[facility]IATRY [facility] [place] [facility] Jan 22, 2024 03:00 PM AMBULATORY - NONE [facility] [place] [facility] Jan 27, 2024 01:00 PM AMBULATORY [facility] PS[facility]AT[facility] [place] [facility] Feb 03, 2024 01:00 PM AMBULATORY [facility] [place] [facility] Feb 10, 2024 01:00 PM AMBULATORY - [facility]AT[facility] [place] [facility] Feb 10, 2024 02:00 PM AMBULATORY - NONE [facility] [place] [facility] Feb 17, 2024 12:30 PM AMBULATORY - NONE [facility] [place] [facility] Feb 17, 2024 01:00 PM AMBULATORY [facility] PS[facility] [place] [facility] Feb 21, 2024 08:30 AM [facility] [place] [facility] Feb 24, 2024 01:00 PM AMBULATORY - PS[facility]IATRY [facility] [place] [facility] Feb 28, 2024 11:30 AM AMBULATORY - MEDICINE [facility] [place] [facility] Lab Results: +/- 30 days of the encounter This section includes the Chemistry and Hematology Lab Results on record with [place] for the patient. Radiology Reports and Pathology Reports are provided separately, in subsequent sections. Lab Results This section contains the Chemistry/Hematology Results that were resulted 30 days before or 30 daysafter the date of the Encounter. Date/Time Source Result Type Result - Unit Interpretation Reference Range Comment Nov 15, 2023 10:10 AM [facility] MICROALBUMIN CREATININE RATIO PANEL Specimen Type: URINE No comment entered. Ordering Provider: WALE FELIZ Report Released Date/Time: Nov 15, 2023 09:56 AM Reporting Lab: [facility] [place] [facility] [address] [facility] [address] Performing Lab: [facility] [place] [facility] [address] [facility] [address] MICROALBUMIN/C REATININE RATIO canc mg/g 0-29.9 MICROALBUMIN,Q UANTITATIVE < 0.5 mg/dL RR UNAVAIL CREATININE URINE 34.74 mg/dL Nov 15, 2023 10:10 AM [facility] VITAMIN B12 Specimen Type: SERUM No comment entered. Ordering Provider: WALE FELIZ Report Released Date/Time: Nov 15, 2023 09:56 AM Reporting Lab: [facility] [address] [facility] [address] Performing Lab: [facility] [address] [facility] [address] VITAMIN B12 806 pg/mL 200-900 Nov 15, 2023 10:10 AM [facility] HEMOGLOBIN A1C PANEL Specimen Type: BLOOD No comment entered. Ordering Provider: WALE FELIZ Report Released Date/Time: Nov 15, 2023 09:56 AM Reporting Lab: [facility] [address] [facility] [address] Performing Lab: [address] [address] HEMOGLOBIN A1C 6.1 H 4.0-5.6 Nov 15, 2023 10:10 AM [facility] VITAMIN D (25-OH) Specimen Type: SERUM No comment entered. Ordering Provider: WALE FELIZ Report Released Date/Time: Nov 15, 2023 09:56 AM Reporting Lab: [address] [address] Performing Lab: [address] [address] VITAMIN D (25-OH) 54 ng/mL H 20-50 Nov 15, 2023 10:10 AM [facility] BASIC METABOLIC PANEL (non-fasting) Specimen Type: SERUM No comment entered. Ordering Provider: WALE FELIZ Report Released Date/Time: Nov 15, 2023 09:56 AM Reporting Lab: [facility] [address] [facility] [address] Performing Lab: [address] [address] UREA NITROGEN 6 mg/dL L 7-25 GLUCOSE [...] and tobacco- related health factors from the [place] facility where the Encounter took place. Current Smoking Status This section includes the most current smoking, or tobacco-related health factor, from the [place] facility where the Encounter took place. Date/Time Current Smoking Status Comment Facil it Feb 08, 2023 10:00 AM VA-TOBACCO FORMER USER [facility] [place] [facility] Tobacco Use History This section includes a history of the smoking, or tobacco-related health factors, that were collected on or before the date of the Encounter. The data comes from the [place] facility where the Encounter took place. Date/Time Smoking Status/Tobac co Use Comment Facility Feb 08, 2023 10:00 AM VA-TOBACCO QUIT 15 YRS OR MORE [facility] [place] [facility] Mar 06, 2022 02:30 PM VA-TOBACCO FORMER USER [facility] [place] [facility] Mar 06, 2022 02:30 PM VA-TOBACCO QUIT 15 YRS OR MORE [facility] [place] [facility] Apr 04, 2021 10:28 AM VA-TOBACCO NEVER USED [facility] [place] [facility] May 03, 2020 02:00 PM VA-TOBACCO NEVER USED [facility] [place] [facility] Feb 25, 2019 08:14 AM VA-TOBACCO FORMER USER [facility] [place] [facility] Feb 25, 2019 08:14 AM VA-TOBACCO QUIT 5 TO < 15 YRS [facility] [place] [facility] Apr 04, 2018 10:41 AM QUIT TOBACCO USE 1-7 YEARS AGO [facility] [place] [facility] Oct 28, 2017 10:18 AM QUIT TOBACCO USE 1-7 YEARS AGO [facility] [place] [facility] Jan 22, 2017 01:08 PM QUIT TOBACCO USE 1-7 YEARS AGO [facility] [place] [facility] Jul 18, 2016 01:34 PM QUIT TOBACCO USE 1-7 YEARS AGO [facility] [place] [facility] January 10, 2016 10:32 AM QUIT TOBACCO USE 1-7 YEARS AGO [facility] [place] [facility] Oct 13, 2015 11:05 AM QUIT TOBACCO USE 1-7 YEARS AGO [facility] [place] [facility] Oct 19, 2014 01:53 PM QUIT TOBACCO USE > 7 YEARS AGO [facility] [place] [facility] January 02, 2014 01:30 AM QUIT TOBACCO USE IN PAST YEAR [facility] [place] [facility] Jun 18, 2013 09:00 AM CURRENT SMOKER 6 cigarettes qd [facility] [place] [facility] Jun 18, 2013 09:00 AM V1-PT DECLINES TOBACCO CESSATION MEDS [facility] [place] [facility] Jun 18, 2013 09:00 AM V1-PT NOT INTERESTED IN QUIT TOBACCO USE [facility] [place] [facility] December 24, 2012 10:51 AM V1-PT DECLINES REF TO TOBACCO CESS PRGM [facility] [place] [facility] December 24, 2012 10:51 AM V1-PT DECLINES TOBACCO CESSATION MEDS [facility] [place] [facility] December 24, 2012 10:51 AM V1-PT THINKING ABOUT QUIT TOBACCO USE [facility] [place] [facility] Jul 15, 2012 10:19 AM QUIT TOBACCO USE IN PAST YEAR [facility] [place] [facility] Jan 25, 2012 05:02 PM QUIT TOBACCO USE IN PAST YEAR [facility] [place] [facility] Sep 28, 2011 10:09 AM CURRENT SMOKER 5 cigarettes a day [facility] [place] [facility] Jun 15, 2011 02:23 PM V1-PT DECLINES REF TO TOBACCO CESS PRGM [facility] [place] [facility] Jun 15, 2011 02:23 PM V1-PT READY TO QUIT TOBACCO USE [facility] [place] [facility] Apr 13, 2011 10:31 AM V1-PT DECLINES REF TO TOBACCO CESS PRGM [facility] [place] [facility] Apr 13, 2011 10:31 AM V1-PT RECEIVES TOBACCO CESS MEDS OUTSIDE [facility] [place] [facility] Apr 13, 2011 10:31 AM V1-PT THINKING ABOUT QUIT TOBACCO USE [facility] [place] [facility] Oct 16, 2010 08:52 AM QUIT [facility]BACCO [facility] May 12, 2010 02:08 PM V1-PT DECLINES REF TO TOBACCO CESS [facility] May 12, 2010 02:08 PM V1-PT READY TO QUIT TOBACCO USE [facility] May 12, 2010 12:45 PM CURRENT SMOKER 3 cigarettes a day [facility] Radiology Reports: +/- 30 days of [...] the Encounter. [facility]. Date/Time Radiology Report Provider Source Nov 15, 2023 10:22 AM ELBOW 3 OR MORE VIEWS(LEFT): MEEK,PEBBLES Cristina [id number] -[id number] F Exm Date: NOV 15, 2023@10:22 Req Phys: CADEN FELIZ Loc: CWM/NO/PACT 6 WH (Req'g Loc) Img Loc: [facility] 1 Service: Unknown (Case [id number] COMPLETE) ELBOW 3 OR MORE VIEWS(LEFT) (RAD Detailed) CPT:43670 Reason for Study: pain and swelling left elbow Clinical History: 73yo woman with h/o traumatic injury in 20s, Report Status: Verified Date Reported: NOV 15, 2023 Date Verified: NOV 15, 2023 Pants Presser E-Sig:/ES/NEMO RODRIGUEZ JR Report: Study: AP, lateral, [...] Primary Interpreting Staff: NEMO RODRIGUEZ JR, Radiologist (Pants Presser) /NEMO WEISS JR [facility] Encounter Notes: All associated encounter notes This section contains the clinical notes associated to the Encounter. Date/Time Encounter Note(s) Provider Source Dec 12, 2023 09:01 AM ACCOUNTING OF DISCLOSURES NOTE: LOCAL TITLE: STATE PRESCRIPTION DRUG MONITORING PROGRAM STANDARD TITLE: ACCOUNTING OF DISCLOSURES NOTE DATE OF NOTE: DEC 12, 2023@09:01:34 ENTRY DATE: DEC 12, 2023@09:01:34 AUTHOR: COLT HAMPTON EXP COSIGNER: URGENCY: STATUS: COMPLETED This PDMP query was submitted by Colt Hampton The clinical justification for this PDMP query is to review controlled substances prescribed outside of the [facility], and any additional information that may become available, as an important component of standard clinical care, and in accordance with [facility] policy. Patient information was shared with the PDMP [employer]. No prescription(s) for controlled substances outside the [facility] were found in the last 90 days. /jeana/ COLT HAMPTON PSYCHIATRIST Signed: 12/12/2023 09:01 COLT HAMPTON [facility]
--- OUTSIDE RECORDS SUMMARY | 2024-08-04 16:44 | XMS_ITS | Encounter Summary ---
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 Name Role Phone CADEN FELIZ Primary [...] PLAN I Aug 19, 2019 PLAN I [id number] MEEK,GR ICEL PATIENT [employer] OPTIONS MEDICARE SUPPLEMEN MARCIA PLANM Y Aug 19, 2019 PLANMY [id number] MEEK,GR ICEL PATIENT [employer] OPTIONS MEDICARE SUPPLEMEN MARCIA AARP MEDIC ARE SUPPL Aug 19, 2019 PLAN MY [id number] MEEK,GR ICEL PATIENT A[employer] INS MEDICARE SUPPLEMEN MARCIA PLANM Y Aug 19, 2019 PLANMY [id number] MEEK,GR ICEL PATIENT AARP MED SUPP MEDICARE SUPPLEMEN MARCIA Jul 19, 2010 PLANMY [id number] MEEK,GR ICEL PATIENT MEDICARE (WNR) MEDICARE () PART B Aug 19, 2008 PART B [id number] MEEK,GR ICEL PATIENT MEDICARE (WNR) MEDICARE () PART B Aug 19, 2008 PART B [id number] MEEK,GR ICEL PATIENT MEDICARE (WNR) MEDICARE () PART B Aug 19, 2008 PART B [id number] MEEK,GR ICEL PATIENT MEDICARE (WNR) MEDICARE () PART B Aug 19, 2008 PART B [id number] MEEK,GR ICEL PATIENT MEDICARE (WNR) MEDICARE () PART B Aug 19, 2008 PART B [id number] [phone] MEEK,GR ICEL PATIENT MEDICARE (WNR) MEDICARE () PART B Aug 19, 2008 PART B [id number] MEEK,GR ICEL PATIENT MEDICARE (WNR) MEDICARE () PART B Aug 19, 2008 PART B [id number] MEEK,GR ICEL PATIENT MEDICARE (WNR) MEDICARE () PART A December 18, 2003 PART A [id number] [phone] MEEK,GR ICEL PATIENT MEDICARE (WNR) MEDICARE () PART A December 18, 2003 PART A [id number] MEEK,GR ICEL PATIENT MEDICARE (WNR) MEDICARE () PART A December 18, 2003 PART A [id number] [phone] MEEK,GR ICEL PATIENT MEDICARE (WNR) MEDICARE () PART A December 18, 2003 PART A [id number] [phone] MEEK,GR ICEL PATIENT MEDICARE (WNR) MEDICARE () PART A December 18, 2003 PART A [id number] [phone] MEEK,GR ICEL PATIENT MEDICARE (WNR) MEDICARE () PART A December 18, 2003 PART A [id number] [phone] SABINE MEEK PATIENT MEDICARE (WNR) MEDICARE (M) PART A December 18, 2003 PART A [id number] SABINE MEEK PATIENT Selected Encounter This section includes the information on record at OR for the Encounter. Date/Time Encounter Type Encounter Description Reason Provider Source Dec 16, 2023 01:00 PM [facility] ICD-10-CM F43.12 Post-traumati c stress disorder, chronic MARY GIBBS E IHE Encounter Template Text not used by OR Assessments - Encounter Diagnoses This section includes the primary and secondary diagnoses documented for the Encounter. Date/Time Primary/Secondary Diagnosis Diagnosis Name Provider Source Dec 16, 2023 02:54 PM PRIMARY Post-traumatic stress disorder, chronic MARY GIBBS [place] [facility] [place] [facility] Plan of Treatment: Future Appointments (+ 6 months) and Future Tests (+/- 45 days) The Plan of Treatment section includes future care activities for the [facility] This section includes future appointments and future orders which are active, pending or scheduled. Future Appointments This section includes appointments that were scheduled to occur 6 months from the date of the Encounter, up to a maximum of 20 appointments. The data comes from all OR treatment facilities. Appointment Date/Time Appointment Type Appointme nt Facility Name December 23, 2023 01:00 PM AMBULATORY - PSYCHIATRY [place] [facility] [place] [facility] December 31, 2023 09:00 AM AMBULATORY - MEDICINE [facility] [place] [facility] January 06, 2024 11:00 AM AMBULATORY - PSYCHIATRY [place] [facility] [place] [facility] January 06, 2024 01:00 PM AMBULATORY - PSYCHIATRY OR [facility] [place] [facility] January 07, 2024 08:00 AM AMBULATORY - MEDICINE OR C [facility] [place] [facility] January 09, 2024 09:00 AM AMBULATORY - PSYCHIATRY [place] [facility] [place] [facility] January 14, 2024 09:30 AM AMBULATORY - MEDICINE OR C [facility] [place] [facility] January 16, 2024 10:30 AM AMBULATORY - NONE [place] [facility] [place] [facility] Jan 20, 2024 01:00 PM AMBULATORY - PS[facility]IATRY [facility] [place] [facility] Jan 22, 2024 03:00 PM AMBULATORY - NONE [facility] [place] [facility] Jan 27, 2024 01:00 PM AMBULATORY - PSYCHIATRY [facility] [place] [facility] Feb 03, 2024 01:00 PM AMBULATORY - PSYCHIATRY [facility] [place] [facility] Feb 10, 2024 01:00 PM AMBULATORY - PSYCHIATRY [facility] [place] [facility] Feb 10, 2024 02:00 PM AMBULATORY - NONE [facility] [place] [facility] Feb 17, 2024 12:30 PM AMBULATORY - NONE [facility] [place] [facility] Feb 17, 2024 01:00 PM AMBULATORY - PSYCHIATRY [facility] [place] [facility] Feb 21, 2024 08:30 AM AMBULATORY - MEDICINE [facility] C [facility] [place] [facility] Feb 24, 2024 01:00 PM AMBULATORY - PSYCHIATRY [facility] [place] [facility] Feb 28, 2024 11:30 AM AMBULATORY - MEDICINE [facility] C [facility] [place] [facility] Mar 02, 2024 01:00 PM AMBULATORY - PSYCHIATRY [facility] [place] [facility] Social History: Smoking Status (Most current) and Tobacco Use (All prior to encounter date) This section includes the most current, and the historical, smoking and tobacco- related health factors from the OR facility where the Encounter took place. Current Smoking Status This section includes the most current smoking, or tobacco-related health factor, from the OR facility where the Encounter took place. Date/Time Current Smoking Status Comment [facility] it Feb 08, 2023 10:00 AM VA-TOBACCO FORMER USER OR [facility] [place] [facility] Tobacco Use History This section includes a history of the smoking, or tobacco-related health factors, that were collected on or before the date of the Encounter. The data comes from the OR facility where the Encounter took place. Date/Time Smoking Status/Tobac co Use Comment [facility] Feb 08, 2023 10:00 AM VA-TOBACCO QUIT 15 YRS OR MORE [facility] [place] [facility] Mar 06, 2022 02:30 PM VA-TOBACCO FORMER USER [facility] [place] [facility] Mar 06, 2022 02:30 PM VA-TOBACCO QUIT 15 YRS OR MORE [facility] [place] [facility] Apr 04, 2021 10:28 AM VA-TOBACCO NEVER USED OR [facility] [place] [facility] May 03, 2020 02:00 PM VA-TOBACCO NEVER USED [facility] [place] [facility] Feb 25, 2019 08:14 AM VA-TOBACCO FORMER USER [facility] [place] [facility] Feb 25, 2019 08:14 AM VA-TOBACCO QUIT 5 TO < 15 YRS [facility] [place] [facility] Apr 04, 2018 10:41 AM QUIT TOBACCO USE 1-7 YEARS AGO [facility] [place] [facility] Oct 28, 2017 10:18 AM QUIT TOBACCO USE 1-7 YEARS AGO [facility] [place] [facility] Jan 22, 2017 01:08 PM QUIT TOBACCO USE 1-7 YEARS AGO [facility] [place] [facility] Jul 18, 2016 01:34 PM QUIT TOBACCO USE 1-7 YEARS AGO [facility] [place] [facility] January 10, 2016 10:32 AM QUIT TOBACCO USE 1-7 YEARS AGO [facility] [place] [facility] Oct 13, 2015 11:05 AM QUIT TOBACCO USE 1-7 YEARS AGO [facility] [place] [facility] Oct 19, 2014 01:53 PM QUIT TOBACCO USE > 7 YEARS AGO [facility] [place] [facility] January 02, 2014 01:30 AM QUIT TOBACCO USE IN PAST YEAR [facility] [place] [facility] Jun 18, 2013 09:00 AM CURRENT SMOKER 6 cigarettes qd [facility] [place] [facility] Jun 18, 2013 09:00 AM V1-PT DECLINES TOBACCO CESSATION MEDS [facility] [place] [facility] Jun 18, 2013 09:00 AM V1-PT NOT INTERESTED IN QUIT TOBACCO USE [facility] [place] [facility] December 24, 2012 10:51 AM V1-PT DECLINES REF TO TOBACCO CESS PRGM [facility] [place] [facility] December 24, 2012 10:51 AM V1-PT DECLINES TOBACCO CESSATION MEDS [facility] [place] [facility] December 24, 2012 10:51 AM V1-PT THINKING ABOUT QUIT TOBACCO USE [facility] Jul 15, 2012 10:19 AM QUIT TOBACCO USE IN PAST YEAR [facility] Jan 25, 2012 05:02 PM QUIT TOBACCO USE IN PAST YEAR [facility] Sep 28, 2011 10:09 AM CURRENT SMOKER 5 cigarettes a day [facility] Jun 15, 2011 02:23 PM V1-PT DECLINES REF TO TOBACCO CESS PRGM [facility] Jun 15, 2011 02:23 PM V1-PT READY TO QUIT TOBACCO USE [facility] Apr 13, 2011 10:31 AM V1-PT DECLINES REF TO TOBACCO CESS PRGM [facility] Apr 13, 2011 10:31 AM V1-PT RECEIVES TOBACCO CESS MEDS OUTSIDE [facility] Apr 13, 2011 10:31 AM V1-PT THINKING ABOUT QUIT TOBACCO USE [facility] Oct 16, 2010 08:52 AM QUIT TOBACCO USE IN PAST YEAR [facility] May 12, 2010 02:08 PM V[facility] 12, 2010 02:08 PM V1-PT READY TO QUIT TOBACCO USE [facility] May 12, 2010 12:45 PM CURRENT SMOKER 3 cigarettes a day [facility] Encounter Notes: All associated encounter notes This section contains the clinical notes associated to the Encounter. Date/Time Encounter Note(s) Provider Source Dec 16, 2023 02:53 PM PSYCHIATRY GROUP COUNSELING NOTE: LOCAL TITLE: PSYCHOLOGY GROUP NOTE STANDARD TITLE: PSYCHIATRY GROUP COUNSELING NOTE DATE OF NOTE: DEC 16, 2023@14:53 ENTRY DATE: DEC 16, 2023@14:53:07 AUTHOR: OL GIBBS EXP COSIGNER: URGENCY: STATUS: COMPLETED [facility] Mindful Compassion Group Therapy Note [place] identified with 2 identifiers: [X] Patient Name [X] Visual recognition ~~~ Coatings Inspector: Abdirashid Whaley MS, and Lo Gibbs, PhD PROCEDURE: 60-minute interactive hybrid VVC/F2F group therapy session Problem: Difficulty being present in the moment and fostering compassion Objective: Explored and practice mindful compassion Number of Veterans Present in Group: 9 GROUP CONTENT: Group members engaged in a mindfulness practice involving mindful self-compassion and listening to the quote by Staci Cerda: You may be given a cactus, but you dont have to sit on it. Group members checked in by answering the question Is self-compassion selfish? The airplane mask metaphor was explored and the idea of self-compassion as a strategic, generous choice was explored. 's participated in mindful listening to [facility] by [place]. They committed to engage in mindful awareness and to ask themselves when doubting thoughts arise is this selfish or strategic? between now and next group. PROGRESS: arrived on time and was an active and appropriate participant. [place] participated in the mindfulness practices and group discussions. Mental Status was not formally assessed due to the nature of the encounter. maintained appropriate eye contact and was alert. spoke clearly and coherently. 's thoughts were linear and related. 's affect was congruent to content and appropriate in range. No clinical signs of intoxication, withdrawal, psychosis, or cognitive impairment were observed. No evidence of suicidal or homicidal ideation. There was no evidence of AH/VH or delusions. was future oriented. DSM-V DIAGNOSTIC IMPRESSIONS(per chart): PTSD PLAN: will continue to participate in the Mindful Compassion Group on Mondays at 1pm. /jeana/ Lo Gibbs, PhD Clinical Psychologist, [facility] Signed: 12/16/2023 14:55 LO GIBBS [facility]
--- OUTSIDE RECORDS SUMMARY | 2024-08-04 16:45 | XMS_ITS | Encounter Summary ---
Author Name [facility] [facility] Address [address] [place] [address] Care Team Providers Care Medical Staff Services Coordinator Name Role Phone CADEN FELIZ Primary Care [...] PLAN I Aug 19, 2019 PLAN I [id number] MEEK,GR ICEL PATIENT [employer] OPT[employer] MEDICARE SUPPLEMEN MARCIA PLANM Y Aug 19, 2019 PLANMY [id number] MEEK,GR ICEL PATIENT [employer] OPTIONS MEDICARE SUPPLEMEN MARCIA AARP MEDIC ARE SUPPL Aug 19, 2019 PLAN MY [id number] [phone] MEEK,GR ICEL PATIENT A[employer] INS MEDICARE SUPPLEMEN MARCIA PLANM Y Aug 19, 2019 PLANMY [id number] MEEK,GR ICEL PATIENT AARP MED SUPP MEDICARE SUPPLEMEN MARCIA Jul 19, 2010 [facility] [id number] MEEK,GR ICEL PATIENT MEDICARE (WNR) MEDICARE () PART B Aug 19, 2008 PART B [id number] MEEK,GR ICEL PATIENT MEDICARE (WNR) MEDICARE () PART B Aug 19, 2008 PART B [id number] [phone] MEEK,GR ICEL PATIENT MEDICARE (WNR) MEDICARE () PART B Aug 19, 2008 PART B [id number] MEEK,GR ICEL PATIENT MEDICARE (WNR) MEDICARE () PART B Aug 19, 2008 PART B [id number] [phone] MEEK,GR ICEL PATIENT MEDICARE (WNR) MEDICARE () PART B Aug 19, 2008 PART B [id number] [phone] MEEK,GR ICEL PATIENT MEDICARE (WNR) MEDICARE () PART B Aug 19, 2008 PART B [id number] MEEK,GR ICEL PATIENT MEDICARE (WNR) MEDICARE () PART B Aug 19, 2008 PART B [id number] [phone] MEEK,GR ICEL PATIENT MEDICARE (WNR) MEDICARE () PART A December 18, 2003 PART A [id number] MEEK,GR ICEL PATIENT MEDICARE (WNR) MEDICARE () PART A December 18, 2003 PART A [id number] MEEK,GR ICEL PATIENT MEDICARE (WNR) MEDICARE () PART A December 18, 2003 PART A [id number] [phone] MEEK,GR ICEL PATIENT MEDICARE (WNR) MEDICARE () PART A December 18, 2003 PART A [id number] MEEK,GR ICEL PATIENT MEDICARE (WNR) MEDICARE () PART A December 18, 2003 PART A [id number] [phone] MEEK,GR ICEL PATIENT MEDICARE (WNR) MEDICARE (M) PART A December 18, 2003 PART A [id number] SABINE MEEK ICEJacky PATIENT MEDICARE (WNR) MEDICARE (M) PART A December 18, 2003 PART A [id number] SABINE MEEK PATIENT Selected Encounter This section includes the information on record at [place] for the Encounter. Date/Time Encounter Type Encounter Description Reason Provider Source December 19, 2023 10:07 AM PRO PHONE CALL 11-20 MIN TELEPHONE MH ICD-10-CM F41.9 Anxiety disorder, unspecified TRINAIRASEMA VICK Darshan Encounter Template Text not used by [place] Assessments - Encounter Diagnoses This section includes the primary and secondary diagnoses documented for the Encounter. Date/Time Primary/Secondary Diagnosis Diagnosis Name Provider Source December 19, 2023 10:07 AM PRIMARY Anxiety disorder, unspecified TRINAIRASEMA VICK [facility] [place] [facility] December 19, 2023 10:07 AM SECONDARY Other recurrent depressive disorders MARISOLIRASEMA [place] [facility] [place] [facility] December 19, 2023 10:07 AM SECONDARY Post-traumatic stress disorder, chronic IRASEMA DAMON [facility] [place] [facility] Plan of Treatment: Future Appointments (+ 6 months) and Future Tests (+/- 45 days) The Plan of Treatment section includes future care activities for the patient from all [place] treatmentfacilities. This section includes future appointments and future orders which are active, pending or scheduled. Future Appointments This section includes appointments that were scheduled to occur 6 months from the date of the Encounter, up to a maximum of 20 appointments. The data comes from all [place] treatment facilities. Appointment Date/Time Appointment Type Appointme nt Facility Name December 23, 2023 01:00 PM AMBULATORY - [place]IATRY [facility] [place] [facility] December 31, 2023 09:00 AM AMBULATORY - MEDICINE [facility] [place] [facility] January 06, 2024 11:00 AM AMBULATORY - PS[place]IATRY [facility] [place] [facility] January 06, 2024 01:00 PM AMBULATORY - PS[facility]IATRY [facility] [place] [facility] January 07, 2024 08:00 AM AMBULATORY - MEDICINE [facility] [place] [facility] January 09, 2024 09:00 AM [facility] [place] [facility] January 14, 2024 09:30 AM AM[facility]UL[facility]INE [facility] [place] [facility] January 16, 2024 10:30 AM AMBULATORY - NONE [facility] [place] [facility] Jan 20, 2024 01:00 PM AMBULATORY - PS[facility]IATRY [facility] [place] [facility] Jan 22, 2024 03:00 PM AMBULATORY - NONE [facility] [place] [facility] Jan 27, 2024 01:00 PM AMBULATORY - PS[facility]IATRY [facility] [place] [facility] Feb 03, 2024 01:00 PM AMBULATORY - PS[facility]IATRY [facility] [place] [facility] Feb 10, 2024 01:00 PM AMBULATORY - PS[facility]IATRY [facility] [place] [facility] Feb 10, 2024 02:00 PM AMBULATORY - NONE [facility] [place] [facility] Feb 17, 2024 12:30 PM AMBULATORY - NONE [facility] [place] [facility] Feb 17, 2024 01:00 PM AMBULATORY - PS[facility]CHIATRY [facility] [place] [facility] Feb 21, 2024 08:30 AM AMBULATORY - MEDICINE [facility] [place] [facility] Feb 24, 2024 01:00 PM AMBULATORY - PS[facility]CHIATRY [facility] [place] [facility] Feb 28, 2024 11:30 AM AMBULATORY - MEDICINE [facility] [place] [facility] Mar 02, 2024 01:00 PM AMBULATORY - PS[facility]CHIATRY [facility] [place] [facility] Social History: Smoking Status (Most current) and Tobacco Use (All prior to encounter date) This section includes the most current, and the historical, smoking and tobacco- related health factors from the [place] facility where the Encounter took place. Current Smoking Status This section includes the most current smoking, or tobacco-related health factor, from the [place] facility where the Encounter took place. Date/Time Current Smoking Status Comment Rosamaria zepeda Feb 08, 2023 10:00 AM VA-TOBACCO FORMER USER [facility] [place] [facility] Tobacco Use History This section includes a history of the smoking, or tobacco-related health factors, that were collected on or before the date of the Encounter. The data comes from the [place] facility where the Encounter took place. Date/Time Smoking Status/Tobac co Use Comment Facility Feb 08, 2023 10:00 AM VA-TOBACCO QUIT 15 YRS OR MORE [facility] [place] [facility] Mar 06, 2022 02:30 PM VA-TOBACCO FORMER USER [facility] [place] [facility] Mar 06, 2022 02:30 PM VA-TOBACCO QUIT 15 YRS OR MORE [facility] [place] [facility] Apr 04, 2021 10:28 AM VA-TOBACCO NEVER USED [facility] [place] [facility] May 03, 2020 02:00 PM VA-TOBACCO NEVER USED [facility] [place] [facility] Feb 25, 2019 08:14 AM VA-TOBACCO FORMER USER [facility] [place] [facility] Feb 25, 2019 08:14 AM VA-TOBACCO QUIT 5 TO < 15 YRS [facility] [place] [facility] Apr 04, 2018 10:41 AM QUIT TOBACCO USE 1-7 YEARS AGO [facility] [place] [facility] Oct 28, 2017 10:18 AM QUIT TOBACCO USE 1-7 YEARS AGO [facility] [place] [facility] Jan 22, 2017 01:08 PM QUIT TOBACCO USE 1-7 YEARS AGO [facility] [place] [facility] Jul 18, 2016 01:34 PM QUIT TOBACCO USE 1-7 YEARS AGO [facility] [place] [facility] January 10, 2016 10:32 AM QUIT TOBACCO USE 1-7 YEARS AGO [facility] [place] [facility] Oct 13, 2015 11:05 AM QUIT TOBACCO USE 1-7 YEARS AGO [facility] [place] [facility] Oct 19, 2014 01:53 PM QUIT TOBACCO USE > 7 YEARS AGO [facility] [place] [facility] January 02, 2014 01:30 AM QUIT TOBACCO USE IN PAST YEAR [facility] [place] [facility] Jun 18, 2013 09:00 AM CURRENT SMOKER 6 cigarettes qd [facility] [place] [facility] Jun 18, 2013 09:00 AM V1-PT DECLINES TOBACCO CESSATION MEDS [place] [facility] [place] [facility] Jun 18, 2013 09:00 AM V1-PT NOT INTERESTED IN QUIT TOBACCO USE [facility] December 24, 2012 10:51 AM V1-PT DECLINES REF TO TOBACCO CESS PRGM [facility] December 24, 2012 10:51 AM V1-PT DECLINES TOBACCO CESSATION MEDS [facility] MIC[facility] December 24, 2012 10:51 AM V1-PT THINKING ABOUT QUIT [facility]AC[facility] Jul 15, 2012 10:19 AM QUIT TOBACCO USE IN PAST YEAR [facility] Jan 25, 2012 05:02 PM QUIT TOBACCO USE IN PAST YEAR [facility] Sep 28, 2011 10:09 AM CURRENT SMOKER 5 cigarettes a day [facility] Jun 15, 2011 02:23 PM V1-PT DECLINES REF TO TOBACCO CESS [facility] Jun 15, 2011 02:23 PM V1-PT READY TO QUIT TOBACCO USE [facility] Apr 13, 2011 10:31 AM V1-PT DECLINES REF TO TOBACCO CESS PR[facility] Apr 13, 2011 10:31 AM V1-PT RECEIVES TOBACCO CESS MEDS OUTSIDE [facility] Apr 13, 2011 10:31 AM V1-PT THINKING ABOUT QUIT TOBACCO USE [facility] Oct 16, 2010 08:52 AM QUIT TOBACCO USE IN PAST YEAR [facility] May 12, 2010 02:08 PM V1-PT DECLINES REF TO TOBACCO CESS [facility] May 12, 2010 02:08 PM V1-PT READY TO QUIT TOBACCO USE [facility] May 12, 2010 12:45 PM CURRENT SMOKER 3 cigarettes a day [facility] Encounter Notes: All associated encounter notes This section contains the clinical notes associated to the Encounter. Date/Time Encounter Note(s) Provider Source December 19, 2023 10:07 AM MENTAL HEALTH COMMUNICATION NOTE: LOCAL TITLE: PRIMARY MENTAL HEALTH CONTACT NOTE STANDARD TITLE: MENTAL HEALTH COMMUNICATION NOTE DATE OF NOTE: DECEMBER 19, 2023@10:07:44 ENTRY DATE: DECEMBER 19, 2023@10:08:25 AUTHOR: IRASEMA DAMON EXP COSIGNER: URGENCY: STATUS: COMPLETED Drill Foreman called post transfer to primary care for their sertraline, trazodone and lorazepam prescribed for diagnoses of chronic depression, chronic anxiety and PTSD. 's identity verified through name and . was informed of the transfer of their psychotropic medication to primary care. was educated as to the side effects of their medication. reported no side effects and reported being stable on their medication. did report increased anxiety around medical concerns. [place] was offered CBT for chronic pain and [place] deferred, wanting to complete mindfulness group first. was offered alpha stim. [place] was educated that it is indicated for depression, anxiety and insomnia. was educated about how alpha stim works including the 4 brain wave patterns while in a wake state. was educated about the potential for headaches or vertigo if the device is set too high. was educated about the absolute contraindications for alpha stim including have a defibrillator, pacemaker, or stimulation device planted in the brain, and being . [place] accepted a referral. Consult placed held for signature. was educated that they can reengage in mental health care in the mental health clinic should the need arise. Drill Foreman will follow up with in about 2 months. Time Spent: 13 minutes /jeana/ Irasema PORTER RN [facility] HEADER DOCK Signed: 12/19/2023 10:24 IRASEMA DAMON [facility]
--- OUTSIDE RECORDS SUMMARY | 2024-08-04 16:45 | XMS_ITS | Encounter Summary ---
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 Name Role Phone CADEN FELIZ Primary Care [...] PLAN I Aug 19, 2019 PLAN I [id number] MEEK,GR ICEL PATIENT [employer] OPTIONS MEDICARE SUPPLEMEN MARCIA PLANM Y Aug 19, 2019 PLANMY [id number] MEEK,GR ICEL PATIENT [employer] OPTIONS MEDICARE SUPPLEMEN MARCIA AARP MEDIC ARE SUPPL Aug 19, 2019 PLAN MY [id number] [phone] MEEK,GR ICEL PATIENT AARP INS MEDICARE SUPPLEMEN MARCIA PLANM Y Aug 19, 2019 PLANMY [id number] [phone] MEEK,GR ICEL PATIENT AARP MED SUPP MEDICARE SUPPLEMEN MARCIA Jul 19, 2010 PLANMY [id number] [phone] MEEK,GR ICEL PATIENT MEDICARE (WNR) MEDICARE () PART B Aug 19, 2008 PART B [id number] MEEK,GR ICEL PATIENT MEDICARE (WNR) MEDICARE () PART B Aug 19, 2008 PART B [id number] MEEK,GR ICEL PATIENT MEDICARE (WNR) MEDICARE () PART B Aug 19, 2008 PART B [id number] MEEK,GR ICEL PATIENT MEDICARE (WNR) MEDICARE () PART B Aug 19, 2008 PART B [id number] [phone] MEEK,GR ICEL PATIENT MEDICARE (WNR) MEDICARE () PART B Aug 19, 2008 PART B [id number] [phone] MEEK,GR ICEL PATIENT MEDICARE (WNR) MEDICARE () PART B Aug 19, 2008 PART B [id number] MEEK,GR ICEL PATIENT MEDICARE (WNR) MEDICARE () PART B Aug 19, 2008 PART B [id number] MEEK,GR ICEL PATIENT MEDICARE (WNR) MEDICARE () PART A December 18, 2003 PART A [id number] MEEK,GR ICEL PATIENT MEDICARE (WNR) MEDICARE () PART A December 18, 2003 PART A [id number] MEEK,GR ICEL PATIENT MEDICARE (WNR) MEDICARE () PART A December 18, 2003 PART A [id number] [phone] MEEK,GR ICEL PATIENT MEDICARE (WNR) MEDICARE () PART A December 18, 2003 PART A [id number] MEEK,GR ICEL PATIENT MEDICARE (WNR) MEDICARE () PART A December 18, 2003 PART A [id number] [phone] MEEK,GR ICEL PATIENT MEDICARE (WNR) MEDICARE () PART A December 18, 2003 PART A [id number] SABINE MEEK ICEJacky PATIENT MEDICARE (WNR) MEDICARE (M) PART A December 18, 2003 PART A [id number] SABINE MEEK PATIENT Selected Encounter This section includes the information on record at [place] for the Encounter. Date/Time Encounter Type Encounter Description Reason Provider Source Dec 17, 2023 07:50 AM QNHP OL DIG ASSMT&MGMT 21+ PCMHI INDIV ICD-10-CM F51.05 Insomnia due to other mental disorder MARISOLWESLEYJordan SORIANO [facility] Encounter Template Text not used by [place] Assessments - Encounter Diagnoses This section includes the primary and secondary diagnoses documented for the Encounter. Date/Time Primary/Secondary Diagnosis Diagnosis Name Provider Source December 18, 2023 08:40 AM PRIMARY Insomnia due to other mental disorder MARISOLIRASEMA SORIANO [place] [facility] [place] [facility] December 18, 2023 08:40 AM SECONDARY Anxiety disorder, unspecified MARISOLIRASEMA [facility] [place] [facility] December 18, 2023 08:40 AM SECONDARY Mental disorder, not otherwise specified TRINAIRASEMA VICK [place] [facility] [place] [facility] December 18, 2023 08:40 AM SECONDARY Other recurrent depressive disorders MARISOLIRASEMA [place] [facility] [place] [facility] December 18, 2023 08:40 AM SECONDARY Post-traumatic stress disorder, chronic MARISOLIRASEMA [place] [facility] [place] [facility] Plan of Treatment: Future Appointments (+ 6 months) and Future Tests (+/- 45 days) The Plan of Treatment section includes future care activities for the patient from all [place] treatmentfacilities. This section includes future appointments and future orders which are active, pending or scheduled. Future Appointments This section includes appointments that were scheduled to occur 6 months from the date of the Encounter, up to a maximum of 20 appointments. The data comes from all [place] treatment facilities. Appointment Date/Time Appointment Type Appointme nt Facility Name December 23, 2023 01:00 PM [facility] [place] [facility] [place] [facility] December 31, 2023 09:00 AM [facility]UL[facility] [place]IC[place] [facility] [place] [facility] January 06, 2024 11:00 AM [facility] - [facility] [place] [facility] January 06, 2024 01:00 PM AMBUL[facility]ORY [facility]ATRY [facility] [place] [facility] January 07, 2024 08:00 AM AM[facility]ULATORY [facility]ICINE [facility] [place] [facility] January 09, 2024 09:00 AM AMBUL[facility]ORY [facility]RY [facility] [place] [facility] January 14, 2024 09:30 AM AM[facility]ULATORY [facility]ICINE [facility] [place] [facility] January 16, 2024 10:30 AM AMBULATORY - NONE [facility] [place] [facility] Jan 20, 2024 01:00 PM AMBULATORY - PS[facility]ATRY [facility] [place] [facility] Jan 22, 2024 03:00 PM AMBULATORY - NONE [facility] [place] [facility] Jan 27, 2024 01:00 PM AMBULATORY [facility]RY [facility] [place] [facility] Feb 03, 2024 01:00 PM AMBULATORY - [facility]ATRY [facility] [place] [facility] Feb 10, 2024 01:00 PM AMBULATORY - [facility]ATRY [facility] [place] [facility] Feb 10, 2024 02:00 PM AMBULATORY - NONE [facility] [place] [facility] Feb 17, 2024 12:30 PM AMBULATORY - NONE [facility] [place] [facility] Feb 17, 2024 01:00 PM AMBULATORY - PS[facility]ATRY [facility] [place] [facility] Feb 21, 2024 08:30 AM AMBULATORY [facility] MEDICINE [facility] [place] [place] [facility] Feb 24, 2024 01:00 PM AMBULATORY - PS[facility]IATRY [facility] [place] [facility] Feb 28, 2024 11:30 AM AM[facility]ULATORY [facility] MEDICINE [facility] [place] [facility] Mar 02, 2024 01:00 PM AMBULATORY - PS[facility]IATRY [facility] [place] [facility] Social History: Smoking Status (Most current) and Tobacco Use (All prior to encounter date) This section includes the most current, and the historical, smoking and tobacco- related health factors from the [place] facility where the Encounter took place. Current Smoking Status This section includes the most current smoking, or tobacco-related health factor, from the [facility] facility where the Encounter took place. Date/Time Current Smoking Status Comment Facil it Feb 08, 2023 10:00 AM VA-TOBACCO QUIT 15 YRS OR MORE [place] [facility] [place] [facility] Tobacco Use History This section includes a history of the smoking, or tobacco-related health factors, that were collected on or before the date of the Encounter. The data comes from the [place] facility where the Encounter took place. Date/Time Smoking Status/Tobac co Use Comment Facility Feb 08, 2023 10:00 AM VA-TOBACCO QUIT 15 YRS OR MORE [place] [facility] [place] [facility] Mar 06, 2022 02:30 PM VA-TOBACCO FORMER USER [place] [facility] [place] [facility] Mar 06, 2022 02:30 PM VA-TOBACCO QUIT 15 YRS OR MORE [place] [facility] [place] [facility] Apr 04, 2021 10:28 AM VA-TOBACCO NEVER USED [place] [facility] [place] [facility] May 03, 2020 02:00 PM VA-TOBACCO NEVER USED [place] [facility] [place] [facility] Feb 25, 2019 08:14 AM VA-TOBACCO FORMER USER [place] [facility] [place] [facility] Feb 25, 2019 08:14 AM VA-TOBACCO QUIT 5 TO < 15 YRS [facility] [place] [facility] Apr 04, 2018 10:41 AM QUIT TOBACCO USE 1-7 YEARS AGO [facility] [place] [facility] Oct 28, 2017 10:18 AM QUIT TOBACCO USE 1-7 YEARS AGO [facility] [place] [facility] Jan 22, 2017 01:08 PM QUIT TOBACCO USE 1-7 YEARS AGO [facility] [place] [facility] Jul 18, 2016 01:34 PM QUIT TOBACCO USE 1-7 YEARS AGO [facility] [place] [facility] January 10, 2016 10:32 AM QUIT TOBACCO USE 1-7 YEARS AGO [facility] [place] [facility] Oct 13, 2015 11:05 AM QUIT TOBACCO USE 1-7 YEARS AGO [facility] [place] [facility] Oct 19, 2014 01:53 PM QUIT TOBACCO USE > 7 YEARS AGO [facility] [place] [facility] January 02, 2014 01:30 AM QUIT TOBACCO USE IN PAST YEAR [facility] [place] [facility] Jun 18, 2013 09:00 AM CURRENT SMOKER 6 cigarettes qd [facility] Jun 18, 2013 09:00 AM V1-PT DECLINES TOBACCO CESSATION [facility] Jun 18, 2013 09:00 AM V1-PT NOT INTERESTED IN QUIT TOBACCO USE [facility] December 24, 2012 10:51 AM V1-PT DECLINES REF TO TOBACCO CESS [facility]GM [facility] [place] [facility] December 24, 2012 10:51 AM V1-PT DECLINES TOBACCO CESSATION MEDS [facility] December 24, 2012 10:51 AM V1-PT THINKING ABOUT QUIT TOBACCO USE [facility] Jul 15, 2012 10:19 AM QUIT TOBACCO USE IN PAST YEAR [facility]N [facility] Jan 25, 2012 05:02 PM QUIT TOBACCO USE IN PAST YEAR [facility] Sep 28, 2011 10:09 AM CURRENT SMOKER 5 cigarettes a day [facility] Jun 15, 2011 02:23 PM V1-PT DECLINES REF TO TOBACCO CESS PRGM [facility] Jun 15, 2011 02:23 PM V1-PT READY TO QUIT TOBACCO USE [facility] Apr 13, 2011 10:31 AM V1-PT DECLINES REF TO TOBACCO CESS PRGM [facility] Apr 13, 2011 10:31 AM V1-PT RECEIVES TOBACCO CESS MEDS OUTSIDE [facility] Apr 13, 2011 10:31 AM V1-PT THINKING ABOUT QUIT TOBACCO USE [facility] Oct 16, 2010 08:52 AM QUIT TOBACCO USE IN PAST YEAR [facility] May 12, 2010 02:08 PM V1-PT DECLINES [facility]CO [facility] May 12, 2010 02:08 PM V1-PT READY TO QUIT TOBACCO USE [facility] May 12, 2010 12:45 PM CURRENT SMOKER 3 cigarettes a day [place] [facility] [place] [facility] Encounter Notes: All associated encounter notes This section contains the clinical notes associated to the Encounter. Date/Time Encounter Note(s) Provider Source December 18, 2023 12:28 PM ADDENDUM: LOCAL TITLE: Addendum STANDARD TITLE: ADDENDUM DATE OF NOTE: DECEMBER 18, 2023@12:28:58 ENTRY DATE: DECEMBER 18, 2023@12:28:59 AUTHOR: CADEN FELIZIGNER: URGENCY: STATUS: COMPLETED Note reviewed and medication history and current use reviewed. Agree that medications are stable as well as psychiatric symtpoms. Based on PC visits, anxiety symptoms seem to be most prominant which are exacerbating physical symtpoms. Will discuss with patient additional tools (focussed psychotherapy, possible CBT for pain management) for management of anxiety at next scheduled visit. Agree to assume prescriptions of current psychiatric medications: lorazepam 0.5 mg- takes 1-2 times per week. Refill history supports this sertraline (brand name) 200mg since 2002 trazodone 50 mg- 2011, since 2020 may occasionally take 100 mg of trazodone /jeana/ CADEN FELIZ M.D. PHYSICIAN Signed: 12/18/2023 12:31 Receipt Acknowledged By: 12/18/2023 13:13 /jeana/ Irasema Damon BS RN PCMHI BRIM STRETCHER === --- Original Document --- 12/17/23 PC- INTEGRATION/CONSULT REPORT: Medical Surgery Nurse has reviewed chart for course of treatment in mental health for PCP to review and consider for management of psychiatric medication)s) in primary care. is prescribed lorazepam, trazodone and sertraline for diagnoses of chronic depression, chronic anxiety and PTSD. Summary is as follows current active medications: lorazepam 0.5 mg- takes 1-2 times per week. Refill history supports this sertraline (brand name) 200mg since 2002 trazodone 50 mg- 2011, since 2020 may occasionally take 100 mg of trazodone Psychiatric course of treatment: diazepam 2011, 2015, 2021 escitalopram 8248-2733 hydroxyzine 1285-1102 melatonin 2017 mirtazapine 2018 reported allergy to this medication prazosin recently causes sluggishness quetiapine 2007, 2012 risperidone 2013 reported side effects theophylline 9229-9868 topiramate 2008, 2016, 2021 venlafaxine 6642-9762 zolpidem 1732-2369, discontinued for sleep walking Psychotherapy course of treatment: is not currently engaged in treatment, is doing mindfulness group Current reported symptoms: reported some mild depression and anxiety that is manageable. reported some nightmares, mild hypervigilance that is manageable Forwarding to PCP for review and consideration. Decision making power to accept transfer rests with the PCP. Please inform either way. Medical Surgery Nurse is willing to see [place] post-transfer if need be. Time Spent on chart review: 45 minutes /jeana/ Irasema PORTER RN PCMHI BRIM STRETCHER Signed: 12/18/2023 08:44 Receipt Acknowledged By: 12/18/2023 12:28 /es/ CADEN FELIZ M.D. PHYSICIAN CADEN FELIZ [facility] [place] [facility] Dec 17, 2023 07:50 AM MENTAL HEALTH CONSULT: LOCAL TITLE: PC-MH INTEGRATION/CONSULT REPORT STANDARD TITLE: MENTAL HEALTH CONSULT DATE OF NOTE: DEC 17, 2023@07:50:27 ENTRY DATE: DEC 17, 2023@07:51:29 AUTHOR: IRASEMA DAMON EXP COSIGNER: URGENCY: STATUS: COMPLETED PC-MH INTEGRATION/CONSULT REPORT Has ADDENDA Medical Surgery Nurse has reviewed chart for course of treatment in mental health for PCP to review and consider for management of psychiatric medication)s) in primary care. [place] is prescribed lorazepam, trazodone and sertraline for diagnoses of chronic depression, chronic anxiety and PTSD. Summary is as follows current active medications: lorazepam 0.5 mg- takes 1-2 times per week. Refill history supports this sertraline (brand name) 200mg since 2002 trazodone 50 mg- 2011, since 2020 may occasionally take 100 mg of trazodone Psychiatric course of treatment: diazepam 2011, 2015, 2021 escitalopram 9015-4620 hydroxyzine 6235-5406 melatonin 2017 mirtazapine 2012, 2018 reported allergy to this medication prazosin 6082-0799 recently causes sluggishness quetiapine 2007, 2012 risperidone 2014 reported side effects theophylline 6478-9450 topiramate 2008, 2016, 2021 venlafaxine 4102-5310 zolpidem 2172-0263, 6555-6547 discontinued for sleep walking Psychotherapy course of treatment: is not currently engaged in treatment, is doing mindfulness group Current reported symptoms: reported some mild depression and anxiety that is manageable. reported some nightmares, mild hypervigilance that is manageable Forwarding to PCP for review and consideration. Decision making power to accept transfer rests with the PCP. Please inform either way. Medical Surgery Nurse is willing to see [place] post-transfer if need be. Time Spent on chart review: 45 minutes /mega PORTER RN PCMHI BRIM STRETCHER Signed: 12/18/2023 08:44 Receipt Acknowledged By: 12/18/2023 12:28 /mega FELIZ M.D. PHYSICIAN 12/18/2023 ADDENDUM STATUS: COMPLETED Note reviewed and medication history and current use reviewed. Agree that medications are stable as well as psychiatric symtpoms. Based on PC visits, anxiety symptoms seem to be most prominant which are exacerbating physical symtpoms. Will discuss with patient additional tools (focussed psychotherapy, possible CBT for pain management) for management of anxiety at next scheduled visit. Agree to assume prescriptions of current psychiatric medications: lorazepam 0.5 mg- takes 1-2 times per week. Refill history supports this sertraline (brand name) 200mg since 2002 trazodone 50 mg- 2011, since 2020 may occasionally take 100 mg of trazodone /mega FELIZ M.D. PHYSICIAN Signed: 12/18/2023 12:31 Receipt Acknowledged By: * AWAITING SIGNATURE * IRASEMA DAMON [facility]
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
--- OUTSIDE RECORDS SUMMARY | 2024-08-04 16:47 | XMS_ITS | Encounter Summary ---
Author Name [facility] [place] [facility] [place] [place] Address [address] [place] [address] Care Team Providers Care Radiology Teacher Name Role Phone CADEN FELIZ Primary Care [...] PLAN I Aug 19, 2019 PLAN I [id number] MEEK,GR ICEL PATIENT [employer] OPTIONS MEDICARE SUPPLEMEN MARCIA PLANM Y Aug 19, 2019 PLANMY [id number] [phone] MEEK,GR ICEL PATIENT [employer] OPTIONS MEDICARE SUPPLEMEN MARCIA AARP MEDIC ARE SUPPL Aug 19, 2019 PLAN MY [id number] [phone] MEEK,GR ICEL PATIENT AARP INS MEDICARE SUPPLEMEN MARCIA PLANM Y Aug 19, 2019 PLANMY [id number] [phone] MEEK,GR ICEL PATIENT AARP MED SUPP MEDICARE SUPPLEMEN MARCIA Jul 19, 2010 PLANMY [id number] [phone] MEEK,GR ICEL PATIENT MEDICARE (WNR) MEDICARE () PART B Aug 19, 2008 PART B [id number] MEEK,GR ICEL PATIENT MEDICARE (WNR) MEDICARE () PART B Aug 19, 2008 PART B [id number] [phone] MEEK,GR ICEL PATIENT MEDICARE (WNR) MEDICARE () PART B Aug 19, 2008 PART B [id number] MEEK,GR ICEL PATIENT MEDICARE (WNR) MEDICARE () PART B Aug 19, 2008 PART B [id number] [phone] MEEK,GR ICEL PATIENT MEDICARE (WNR) MEDICARE () PART B Aug 19, 2008 PART B [id number] [phone] MEEK,GR ICEL PATIENT MEDICARE (WNR) MEDICARE () PART B Aug 19, 2008 PART B [id number] MEEK,GR ICEL PATIENT MEDICARE (WNR) MEDICARE () PART B Aug 19, 2008 PART B [id number] MEEK,GR ICEL PATIENT MEDICARE (WNR) MEDICARE () PART A December 18, 2003 PART A [id number] MEEK,GR ICEL PATIENT MEDICARE (WNR) MEDICARE () PART A December 18, 2003 PART A [id number] [phone] MEEK,GR ICEL PATIENT MEDICARE (WNR) MEDICARE () PART A December 18, 2003 PART A [id number] [id number] MEEK,GR ICEL PATIENT MEDICARE (WNR) MEDICARE () PART A December 18, 2003 PART A [id number] MEEK,GR ICEL PATIENT MEDICARE (WNR) MEDICARE () PART A December 18, 2003 PART A [id number] MEEK,GR ICEL PATIENT MEDICARE (WNR) MEDICARE () PART A December 18, 2003 PART A [id number] SABINE MEEK ICEL PATIENT MEDICARE (WNR) MEDICARE (M) PART A December 18, 2003 PART A [id number] SABINE MEEK PATIENT Selected Encounter This section includes the information on [place] at [place] for the Encounter. Date/Time Encounter Type Encounter Description Reason Pro vider Source Sep 09, 2023 03:51 PM Outpatient Encounter ADMIN PAT ACTIVTIES (MASNONCT) IHE Encounter Template Text not used by [place] Plan of Treatment: Future Appointments (+ 6 months) and Future Tests (+/- 45 days) The Plan of Treatment section includes future care activities for the patient from all [place] [facility]. This section includes future appointments and future orders which are active, pending or scheduled. Future Appointments This section includes appointments that were scheduled to occur 6 months from the date of the Encounter, up to a maximum of 20 appointments. The data comes from all [place] treatment facilities. Appointment Date/Time Appointment Type Appointme nt Facility Name Sep 13, 2023 11:30 AM AMBULATORY [place]ICINE [place] [facility] [place] [facility] Sep 26, 2023 08:00 AM AM[place]ULAT[facility] [place] [place] [facility] [place] [facility] Oct 01, 2023 09:00 AM AM[place]ULATORY [place] [facility] [place] [facility] Oct 02, 2023 10:30 AM AMBULATORY - [facility] MEDICIN [facility] [place] [facility] Oct 08, 2023 10:30 AM AM[place]UL[place]ORY [place] [facility] [place] [facility] Oct 08, 2023 10:45 AM AM[place]ULATORY [place] [facility] [place] [facility] Oct 08, 2023 11:00 AM AMBULATORY - REHAB MEDICIN E [facility] [place] [facility] Oct 09, 2023 10:00 AM AM[facility]ULATORY [place] [facility]INE [place] [facility] [place] [facility] Oct 17, 2023 09:00 AM AMBULATORY - REHAB MEDICIN E [facility] [place] [facility] Oct 21, 2023 09:00 AM AM[facility]ULATORY [place]ICINE [place] [facility] [place] [facility] Oct 23, 2023 09:00 AM AMBULATORY [place]ICINE [place] [facility] [place] [facility] Oct 24, 2023 09:00 AM AMBULATORY - REHAB MEDICIN E [facility] [place] [facility] Oct 28, 2023 09:00 AM AMBULATORY [place] [facility]ICINE [place] [facility] [place] [facility] Oct 28, 2023 11:00 AM AMBULATORY [facility]ICINE [place] [facility] [place] [facility] Oct 30, 2023 09:00 AM AM[facility]ULATORY [facility]ICINE [place] [facility] [place] [facility] Nov 08, 2023 08:00 AM AMBULATORY [facility]ICINE [facility] [place] [facility] Nov 14, 2023 09:00 AM AMBULATORY - REHAB MEDICIN E [facility] [place] [facility] Nov 15, 2023 09:00 AM AMBULATORY [facility] MEDICINE [facility] [place] [facility] Nov 15, 2023 09:30 AM AMBULATORY [facility]ICINE [facility] [place] [facility] Nov 18, 2023 11:00 AM AMBULATORY [facility] MEDICINE [facility] [place] [facility] Social History: Smoking Status (Most current) and Tobacco Use (All prior to encounter date) This section includes the most current, and the historical, smoking and tobacco- related health factors from the [facility] facility where the Encounter took place. Current Smoking Status This section includes the most current smoking, or tobacco-related health factor, from the [place] facility where the Encounter took place. Date/Time Current Smoking Status Comment [facility] Feb 08, 2023 10:00 AM VA-TOBACCO FORMER USER [place] [facility] Tobacco Use History This section includes a history of the smoking, or tobacco-related health factors, that were collected on or before the date of the Encounter. The data comes from the [place] facility where the Encounter took place. Date/Time Smoking Status/Tobac co Use Comment Facility Feb 08, 2023 10:00 AM VA-TOBACCO QUIT 15 YRS OR MORE [facility] [place] [facility] Mar 06, 2022 02:30 PM VA-TOBACCO FORMER USER [facility] [place] [facility] Mar 06, 2022 02:30 PM VA-TOBACCO QUIT 15 YRS OR MORE [facility] [place] [facility] Apr 04, 2021 10:28 AM VA-TOBACCO NEVER USED [place] [facility] [place] [facility] May 03, 2020 02:00 PM VA-TOBACCO NEVER USED [place] [facility] [place] [facility] Feb 25, 2019 08:14 AM VA-TOBACCO FORMER USER [place] [facility] [place] [facility] Feb 25, 2019 08:14 AM VA-TOBACCO QUIT 5 TO < 15 YRS [place] [facility] [place] [facility] Apr 04, 2018 10:41 AM QUIT TOBACCO USE 1-7 YEARS AGO [place] [facility] [place] [facility] Oct 28, 2017 10:18 AM QUIT TOBACCO USE 1-7 YEARS AGO [facility] [place] [facility] Jan 22, 2017 01:08 PM QUIT TOBACCO USE 1-7 YEARS AGO [place] [facility] [place] [facility] Jul 18, 2016 01:34 PM QUIT TOBACCO USE 1-7 YEARS AGO [facility] [place] [facility] January 10, 2016 10:32 AM QUIT TOBACCO USE 1-7 YEARS AGO [place] [facility] [place] [facility] Oct 13, 2015 11:05 AM QUIT TOBACCO USE 1-7 YEARS AGO [place] [facility] [place] [facility] Oct 19, 2014 01:53 PM QUIT TOBACCO USE > 7 YEARS AGO [place] [facility] [place] [facility] January 02, 2014 01:30 AM QUIT TOBACCO USE IN PAST YEAR [place] [facility] [place] [facility] Jun 18, 2013 09:00 AM CURRENT SMOKER 6 cigarettes qd [place] [facility] [place] [facility] Jun 18, 2013 09:00 AM V1-PT DECLINES TOBACCO CESSATION MEDS [place] [facility] [place] [facility] Jun 18, 2013 09:00 AM V1-PT NOT INTERESTED IN QUIT TOBACCO USE [place] [facility] [place] [facility] December 24, 2012 10:51 AM V1-PT DECLINES REF TO TOBACCO CESS PRGM [place] [facility] [place] [facility] December 24, 2012 10:51 AM V1-PT DECLINES TOBACCO CESSATION MEDS [place] [facility] [place] [facility] December 24, 2012 10:51 AM V1-PT THINKING ABOUT QUIT TOBACCO USE [place] [facility] [place] [facility] Jul 15, 2012 10:19 AM QUIT TOBACCO USE IN PAST YEAR [facility] Jan 25, 2012 05:02 PM QUIT TOBACCO USE IN PAST YEAR [facility] Sep 28, 2011 10:09 AM CURRENT SMOKER 5 cigarettes a day [facility] Jun 15, 2011 02:23 PM V1-PT DECLINES REF TO TOBACCO CESS PRGM [facility] Jun 15, 2011 02:23 PM V1-PT READY TO QUIT TOBACCO USE [facility] Apr 13, 2011 10:31 AM V1-PT DECLINES REF TO TOBACCO CESS PRGM [facility] Apr 13, 2011 10:31 AM V1-PT RECEIVES TOBACCO CESS MEDS OUTSIDE [facility] Apr 13, 2011 10:31 AM V1-PT THINKING ABOUT QUIT TOBACCO USE [facility] Oct 16, 2010 08:52 AM QUIT TOBACCO USE IN PAST YEAR [facility] May 12, 2010 02:08 PM V1-PT DECLINES REF TO TOBACCO CESS PRGM [facility] May 12, 2010 02:08 PM V1-PT READY TO QUIT TOBACCO USE [facility] May 12, 2010 12:45 PM CURRENT SMOKER 3 cigarettes a day [facility] Encounter Notes: All associated encounter notes This section contains the clinical notes associated to the Encounter. Date/Time Encounter Note(s) Provider Source Sep 12, 2023 10:17 AM ADDENDUM: LOCAL TITLE: Addendum STANDARD TITLE: ADDENDUM DATE OF NOTE: SEP 12, 2023@10:17:17 ENTRY DATE: SEP 12, 2023@10:17:18 AUTHOR: MARICARMEN SERVIN EXP COSIGNER: URGENCY: STATUS: COMPLETED Last noted Vet had chiro care in 2021- I do not see a CC consult placed for one. Vet needs PCP appt /jeana/ Maricarmen Servin regional manager Staff Nurse Signed: 09/12/2023 10:20 Receipt Acknowledged By: 09/12/2023 10:55 /jeana/ FRANNY FONTAINE Advanced A R Collections Rep === --- Original Document --- 09/09/23 CCC: SCHEDULING ADMINISTRATION: Patient Demographics Patient Name: PEBBLES MEEK Patient Primary Phone: [phone] Patient Primary Address: [place] [address] Patient : 1950 Patient Age: 73 Caller/Recipient Relation to Patient: Self Administrative Administrative Note Reason: Other Administrative Note Comments: requests a consult to see Dr. Serafin Parker in [place], for residential care officer for back pain. Vet states she is seen at the same office for acupuncture. /jeana/ MICHELLE GARY ADVANCED SENIOR SUPPLIER QUALITY ENGINEER Signed: 09/09/2023 15:51 Receipt Acknowledged By: * AWAITING SIGNATURE * KIET FRANCIS 09/12/2023 10:20 /jeana/ Maricarmen Servin regional manager Staff Nurse 09/12/2023 ADDENDUM STATUS: COMPLETED Scheduled for 09/13. /jeana/ FRANNY FONTAINE Advanced A R Collections Rep Signed: 09/12/2023 10:55 MARICARMEN SERVIN [facility] [place] [facility] Sep 09, 2023 03:51 PM ADMINISTRATIVE NOT E: LOCAL TITLE: CCC: SCHEDULING ADMINISTRATION STANDARD TITLE: ADMINISTRATIVE NOTE DATE OF NOTE: SEP 09, 2023@15:51:40 ENTRY DATE: SEP 09, 2023@15:51:40 AUTHOR: MICHELLE GARY COSIGNER: URGENCY: STATUS: COMPLETED CCC: SCHEDULING ADMINISTRATION Has ADDENDA Patient Demographics Patient Name: PEBBLES MEEK Patient Primary Phone: [phone] Patient Primary Address: [place] [address] Patient : 1950 Patient Age: 73 Caller/Recipient Relation to Patient: Self Administrative Administrative Note Reason: Other Administrative Note Comments: Rowe requests a consult to see Dr. Serafin Parker in [place], for residential care officer for back pain. Vet states she is seen at the same office for acupuncture. /jeana/ MICHELLE GARY ADVANCED SENIOR SUPPLIER QUALITY ENGINEER Signed: 09/09/2023 15:51 Receipt Acknowledged By: 09/13/2023 08:21 /jeana/ KIET FRANCIS, MSN, RN, CNL PRIMARY CARE TEAM NURSE 09/12/2023 10:20 /jeana/ Maricarmen Servin RN Primary Care Staff Nurse 09/12/2023 ADDENDUM STATUS: COMPLETED Last noted Vet had chiro care in 2021- I do not see a CC consult placed for one. Vet needs PCP appt /jeana/ Maricarmen Servin RN Primary Care Staff Nurse Signed: 09/12/2023 10:20 Receipt Acknowledged By: 09/12/2023 10:55 /jeana/ FRANNY FONTAINE Advanced A R Collections Rep 09/12/2023 ADDENDUM STATUS: COMPLETED Scheduled for 09/13. /jeana/ FRANNY FONTAINE Advanced A R Collections Rep Signed: 09/12/2023 10:55 MICHELLE GARY [place] [facility]
--- OUTSIDE RECORDS SUMMARY | 2024-08-04 16:47 | XMS_ITS | Encounter Summary ---
Author Name [facility] Address [address] [place] [address] Care Team Providers Care Foley Artist Name Role Phone CADEN FELIZ Primary Care [...] PLAN I Aug 19, 2019 PLAN I [id number] [phone] MEEK,GR ICEL PATIENT [employer] OPTIONS MEDICARE SUPPLEMEN MARCIA PLANM Y Aug 19, 2019 PLANMY [id number] MEEK,GR ICEL PATIENT [employer] OPTIONS MEDICARE SUPPLEMEN MARCIA AARP MEDIC ARE SUPPL Aug 19, 2019 PLAN MY [id number] MEEK,SABINE ICEL PATIENT A[employer] INS MEDICARE SUPPLEMEN MARCIA PLANM Y Aug 19, 2019 PLANMY [id number] MEEK,GR ICEL PATIENT AARP MED SUPP MEDICARE SUPPLEMEN MARCIA Jul 19, 2010 PLANMY [id number] MEEK,GR ICEL PATIENT MEDICARE (WNR) MEDICARE () PART B Aug 19, 2008 PART B [id number] MEEK,GR ICEL PATIENT MEDICARE (WNR) MEDICARE () PART B Aug 19, 2008 PART B [id number] [phone] MEEK,GR ICEL PATIENT MEDICARE (WNR) MEDICARE () PART B Aug 19, 2008 PART B [id number] MEEK,GR ICEL PATIENT MEDICARE (WNR) MEDICARE () PART B Aug 19, 2008 PART B [id number] MEEK,GR ICEL PATIENT MEDICARE (WNR) MEDICARE () PART B Aug 19, 2008 PART B [id number] [phone] MEEK,GR ICEL PATIENT MEDICARE (WNR) MEDICARE () PART B Aug 19, 2008 PART B [id number] MEEK,GR ICEL PATIENT MEDICARE (WNR) MEDICARE () PART B Aug 19, 2008 PART B [id number] [phone] MEEK,GR ICEL PATIENT MEDICARE (WNR) MEDICARE () PART A December 18, 2003 PART A [id number] MEEK,GR ICEL PATIENT MEDICARE (WNR) MEDICARE () PART A December 18, 2003 PART A [id number] MEEK,GR ICEL PATIENT MEDICARE (WNR) MEDICARE () PART A December 18, 2003 PART A [id number] [phone] MEEK,GR ICEL PATIENT MEDICARE (WNR) MEDICARE () PART A December 18, 2003 PART A [id number] MEEK,GR ICEL PATIENT MEDICARE (WNR) MEDICARE () PART A December 18, 2003 PART A [id number] MEEK,GR ICEL PATIENT MEDICARE (WNR) MEDICARE () PART A December 18, 2003 PART A [id number] SABINE MEEK ICEL PATIENT MEDICARE (WNR) MEDICARE (M) PART A December 18, 2003 PART A [id number] SABINE MEEK ICEL PATIENT Selected Encounter This section includes the information on record at [place] for the Encounter. Date/Time Encounter Type Encounter Description Reason Provider Source Aug 13, 2023 09:57 AM QNHP OL DIG ASSMT&MGMT 5-10 CLINICAL PHARMACY ICD-10-CM Z04.89 Encounter for examination and observation for oth reasons IKER OSWALD I[facility] Encounter Template Text not used by [place] Assessments - Encounter Diagnoses This section includes the primary and secondary diagnoses documented for the Encounter. Date/Time Primary/Secondary Diagnosis Diagnosis Name Provider Source Aug 13, 2023 10:00 AM PRIMARY Encounter for examination and observation for oth reasons IKER OSWALD [facility] ([id number]) Plan of Treatment: Future Appointments (+ 6 months) and Future Tests (+/- 45 days) The Plan of Treatment section includes future care activities for the patient from all [place] treatmentfacilities. This section includes future appointments and future orders which are active, pending or scheduled. Future Appointments This section includes appointments that were scheduled to occur 6 months from the date of the Encounter, up to a maximum of 20 appointments. The data comes from all [place] treatment facilities. Appointment Date/Time Appointment Type Appointme nt Facility Name Sep 03, 2023 10:00 AM AMBULATORY - MEDICINE [facility] Sep 13, 2023 11:30 AM AM[place] [place] [facility] Sep 26, 2023 08:00 AM [facility]UL[facility] Oct 01, 2023 09:00 AM AM[facility]ULATORY [place]ICINE [facility] Oct 02, 2023 10:30 AM AMBULATORY - [facility]IN [facility] Oct 08, 2023 10:30 AM AM[facility]ULATORY - [place]ICINE [place] [facility] Oct 08, 2023 10:45 AM [facility] [place] [facility] Oct 08, 2023 11:00 AM [facility] [place] Oct 09, 2023 10:00 AM [facility]ULAT[facility] Oct 17, 2023 09:00 AM AMBULATORY - [facility] Oct 21, 2023 09:00 AM [facility]AT[facility] Oct 23, 2023 09:00 AM [facility] Oct 24, 2023 09:00 AM AMBULATORY - REHAB MEDICIN E [facility] [place] Oct 28, 2023 09:00 AM AM[facility]ULATORY [facility]INE [facility] Oct 28, 2023 11:00 AM AM[facility]ULATORY - [facility]INE [facility] Oct 30, 2023 09:00 AM AM[facility]ULATORY - [facility]ICINE [facility] Nov 08, 2023 08:00 AM AM[facility]ULATORY [facility] MEDICINE [facility] Nov 14, 2023 09:00 AM AMBULATORY - REHAB MEDICIN [facility] Nov 15, 2023 09:00 AM AM[facility]ULATORY [facility] MEDICINE [facility] Nov 15, 2023 09:30 AM [facility]ATORY [facility]ICINE [facility] Lab Results: +/- 30 days of the encounter This section includes the Chemistry and Hematology Lab Results on record with [place] for the patient. Radiology Reports and Pathology Reports are provided separately, in subsequent sections. Lab Results This section contains the Chemistry/Hematology Results that were resulted 30 days before or 30 daysafter the date of the Encounter. Date/Time Source Result Type Result - Unit Interpretation Reference Range Comment Aug 09, 2023 11:01 AM [place] [facility] BASIC METABOLIC PANEL (non-fasting) Specimen Type: SERUM No comment entered. Ordering Provider: CADEN FELIZ Report Released Date/Time: Aug 09, 2023 10:40 AM Reporting Lab: [facility] [address] [address] Performing Lab: [facility] [address] [facility] [address] UREA NITROGEN 10 mg/dL 7-25 GLUCOSE 217 mg/dL H 65-100 SODIUM 135 mmol/L 135-145 POTASSIUM 4.6 mmol/L 3.5-5.0 CHLORIDE 99 mmol/L L 100-110 CO2 24 meq/L 20-30 CREATININE, Serum 0.67 mg/dL 0.50-1.40 eGFR(CKD-EPI 2020) >90 mL/min >60 Jul 26, 2023 10:01 AM [facility] HEMOGLOBIN A1C PANEL Specimen Type: BLOOD Comment: Values obtained from A1C measurements can vary. For atypical A1C assays, a reported value of 7.0 could actually be between 6.72 and 7.28 if measured by a reference method. A reported value of 9.0 could actually be between 8.73 and 9.27. Ref: http://www.ngs p.org/CAPdata. asp Ordering Provider: CADEN FELIZ Report Released Date/Time: May 10, 2023 12:52 PM Reporting Lab: [facility] [address] [facility] [address] Performing Lab: [address] [address] HEMOGLOBIN A1C 6.1 H 4.0-5.6 Jul 26, 2023 10:01 AM [facility] BASIC METABOLIC PANEL (non-fasting) Specimen Type: SERUM No comment entered. Ordering Provider: CADEN FELIZ Report Released Date/Time: May 10, 2023 12:52 PM Reporting Lab: [facility] [address] [facility] [address] Performing Lab: [address] [address] UREA NITROGEN 11 mg/dL 7-25 GLUCOSE 150 mg/dL H 65-100 SODIUM 140 mmol/L 135-145 POTASSIUM 5.2 mmol/L H 3.5-5.0 CHLORIDE 104 mmol/L 100-110 CO2 26 meq/L 20-30 CREATININE, Serum 0.69 mg/dL 0.50-1.40 eGFR(CKD-EPI 2020) >90 mL/min >60 Jul 26, 2023 10:01 AM [facility] LIPID PANEL, NON FASTING Specimen Type: SERUM No comment entered. Ordering Provider: CADEN FELIZ Report Released Date/Time: May 10, 2023 12:52 PM Reporting Lab: [facility] [address] [facility] [address] Performing Lab: [address] [address] CHOLESTEROL 210 mg/dL H TRIGLYCERIDE 91 mg/dL 0-150 LDL calculated 90 mg/dL 0-129 CHOL/HDL 2.1 HDL CHOLESTEROL 102 mg/dL H 40-60 Jul 26, 2023 10:01 AM [facility] LIVER FUNCTION Specimen Type: SERUM No comment entered. Ordering Provider: CADEN EFLIZ Report Released Date/Time: May 10, 2023 12:52 PM Reporting Lab: [facility] [address] [facility] [address] Performing Lab: [address] [address] PROTEIN,TOTAL 7.1 g/dL 6.0-8.3 ALBUMIN 4.2 g/dL 3.5-5.0 ALKALINE PHOSPHATASE 63 U/L 40-150 AST 16 U/L 5-34 ALT 22 U/L BILIRUBIN, TOTAL 0.4 mg/dL 0.2-1.2 Jul 26, 2023 10:01 AM [facility] CBC Specimen Type: BLOOD No comment entered. Ordering Provider: IKER OSWALD Report Released Date/Time: Jun 25, 2023 11:36 AM Reporting Lab: [facility] [address] [facility] [address] Performing Lab: [address] [address] WBC 4.43 10*3/uL L 4.50-11.00 RBC 4.00 10*6/uL 3.93-5.16 HGB 12.8 g/dL 12-15.2 HCT 37.9 36.6-45.6 MCV 94.8 fL 82-99 MCHC 33.8 g/dL 30.8-35.1 PLT 263 10*3/uL 140-360 RDW-CV 12.0 12.0-16.0 MCH 32.0 pg 26.2-32.6 Encounter Notes: All associated encounter notes This section contains the clinical notes associated to the Encounter. Date/Time Encounter Note(s) Provider Source Aug 13, 2023 09:57 AM PHARMACY MEDICATIO N MGT NOTE: LOCAL TITLE: PHARMACY ANTICOAGULATION NOTE STANDARD TITLE: PHARMACY MEDICATION MGT NOTE DATE OF NOTE: AUG 13, 2023@09:57 ENTRY DATE: AUG 13, 2023@09:57:10 AUTHOR: IKER OSWALD EXP COSIGNER: URGENCY: STATUS: COMPLETED ANTICOAGULATION DOAC MONITORING NOTE SUBJECTIVE: Patient identified through the DOAC population Management Tool based on the following criteria: [ ] Dosing Issue [ ] Critical Drug Interaction [ ] Cancer Treatment [ X ] Active NSAID [ ] Labs Overdue [ ] Prosthetic Valve Replacement [ ] Notable Lab Value [ ] Overdue for Refill [ ] Other: Comments: Concurrent use of apixaban with NSAIDs or salicylates may result in unwanted bleeding episodes. OBJECTIVE: Indication for anticoagulation: [ X ] Atrial fibrilation [ X ] Atrial flutter [ ] VTE (DVT or PE) [ ] Post-op DVT prophylaxis [ ] Other: Most recent lab values include the following: HGB: HGB Collection DT Specimen Test Name Result Units Ref Range 07/26/2023 10:01 BLOOD HGB 12.8 g/dL 12 - 15.2 PLT: WBC Collection DT Specimen Test Name Result Units Ref Range 07/26/2023 10:01 BLOOD WBC 4.43 L K/cmm 4.50 - 11.00 Liver Function Tests Collection DT Spec AST ALT ALK TERRY ALBUMIN T BILI T. PROT 07/26/2023 10:01 SERUM 16 22 63 4.2 0.4 7.1 06/27/2023 10:25 SERUM 16 20 75 3.9 0.4 6.5 HEIGHT: 61 in [154.9 cm] (03/06/2022 16:45) WEIGHT: 148.7 lb [67.45 kg] (08/09/2023 09:42) BMI: BMI: 28.2 CREATININE-EGFR 08/09/23 11:01 0.67 07/26/23 10:01 0.69 06/27/23 10:25 0.66 CRCL IBW: CrCl(est): 65.3 mL/min (Creat:0.67 08/09/23) CRCL ACT: 55.06 mL/min CRCL ADJ: 65.3 mL/min (08/09/23) ASSESSMENT: Action required? [ ] Yes [ X ] No Comments: -- Per 07/29/23 Anticoagulation note: She is not using ibuprofen often. Reviewed passive monitoring. -- Last refill of ibuprofen 800mg, qty 90: 03/04/23 PLAN: [ X ] No action required, dismiss flag [ ] Will intervene: [ ] Patient education via phone/letter [ ] Schedule phone/[id number] follow up [ ] Lab ordered [ ] Discontinue interacting medication [ ] Discontinue DOAC [ ] Change to alternative DOAC [ ] Change DOAC dose [ ] Notify PCP [ ] Consult cardiology/hematology [ ] Other: Time spent: 5 min PBM PharmD Pharmacotherapy Rem V12: PHARMACIST INTERVENTIONS: ANTICOAGULATION THERAPY DIRECT ORAL ANTICOAGULANT (DOAC) MANAGEMENT Medication monitoring, no dosage change required, continue to monitor and assess /jeana/ IKER OSWALD PHARMD CLINICAL [employer]ER [employer] SUPERINTENDENT Signed: 08/13/2023 10:00 IKER OSWALD [facility] ([id number])
--- OUTSIDE RECORDS SUMMARY | 2024-08-04 16:48 | XMS_ITS ---
Author Name [facility] [place] Organization [facility] [place] Address [address] [place] [address] Care Team Providers Care Traffic Rate Analyst Name Role Phone CADEN FELIZ Primary Care [...] PLAN I Aug 19, 2019 PLAN I [id number] MEEK,GR ICEL PATIENT [employer] OPTIONS MEDICARE SUPPLEMEN MARCIA PLANM Y Aug 19, 2019 PLANMY [id number] MEEK,GR ICEL PATIENT [employer] OPTIONS MEDICARE SUPPLEMEN MARCIA AARP MEDIC ARE SUPPL Aug 19, 2019 PLAN MY [id number] MEEK,GR ICEL PATIENT AARP INS MEDICARE SUPPLEMEN MARCIA PLANM Y Aug 19, 2019 PLANMY [id number] MEEK,GR ICEL PATIENT AARP MED SUPP MEDICARE SUPPLEMEN MARCIA Jul 19, 2010 [facility] [id number] [phone] MEEK,GR ICEL PATIENT MEDICARE (WNR) MEDICARE () PART B Aug 19, 2008 PART B [id number] [phone] MEEK,GR ICEL PATIENT MEDICARE (WNR) MEDICARE () PART B Aug 19, 2008 PART B [id number] [phone] MEEK,GR ICEL PATIENT MEDICARE (WNR) MEDICARE () PART B Aug 19, 2008 PART B [id number] MEEK,GR ICEL PATIENT MEDICARE (WNR) MEDICARE () PART B Aug 19, 2008 PART B [id number] MEEK,GR ICEL PATIENT MEDICARE (WNR) MEDICARE () PART B Aug 19, 2008 PART B [id number] MEEK,GR ICEL PATIENT MEDICARE (WNR) MEDICARE () PART B Aug 19, 2008 PART B [id number] MEEK,GR ICEL PATIENT MEDICARE (WNR) MEDICARE () PART B Aug 19, 2008 PART B [id number] [phone] MEEK,GR ICEL PATIENT MEDICARE (WNR) MEDICARE () PART A December 18, 2003 PART A [id number] [phone] MEEK,GR ICEL PATIENT MEDICARE (WNR) MEDICARE () PART A December 18, 2003 PART A [id number] MEEK,GR ICEL PATIENT MEDICARE (WNR) MEDICARE () PART A December 18, 2003 PART A [id number] MEEK,GR ICEL PATIENT MEDICARE (WNR) MEDICARE () PART A December 18, 2003 PART A [id number] MEEK,GR ICEL PATIENT MEDICARE (WNR) MEDICARE () PART A December 18, 2003 PART A [id number] MEEK,GR ICEL PATIENT MEDICARE (WNR) MEDICARE (M) PART A December 18, 2003 PART A [id number] SABINE MEEK ICEL PATIENT MEDICARE (WNR) MEDICARE (M) PART A December 18, 2003 PART A [id number] [phone] SABINE MEEK PATIENT Selected Encounter This section includes the information on record at [place] for the Encounter. Date/Time Encounter Type Encounter Description Reason Provider Source Sep 13, 2023 11:30 AM OFFICE O/P EST LOW 20 MIN PRIMARY CARE/MEDICINE ICD-10-CM S33.6XXD Sprain of sacroiliac joint, subsequent encounter CADEN FELIZ Darshan Encounter Template Text not used by [place] Assessments - Encounter Diagnoses This section includes the primary and secondary diagnoses documented for the Encounter. Date/Time Primary/Secondary Diagnosis Diagnosis Name Provider Source Sep 13, 2023 12:32 PM PRIMARY Sprain of sacroiliac joint, subsequent encounter WALE FELIZ [facility] [place] [facility] Sep 13, 2023 12:32 PM SECONDARY Paroxysmal atrial fibrillation WALE FELIZ [facility] [place] [facility] Plan of Treatment: Future Appointments (+ 6 months) and Future Tests (+/- 45 days) The Plan of Treatment section includes future care activities for the [facility] This section includes future appointments and future orders which are active, pending or scheduled. Future Appointments This section includes appointments that were scheduled to occur 6 months from the date of the Encounter, up to a maximum of 20 appointments. The data comes from all [place] treatment facilities. Appointment Date/Time Appointment Type Appointme nt Facility Name Sep 26, 2023 08:00 AM AMBULATORY - REHAB MEDICIN E [facility] [place] [facility] Oct 01, 2023 09:00 AM AMBULATORY - MEDICINE [facility] [place] [facility] Oct 02, 2023 10:30 AM AMBULATORY - REHAB MEDICIN E [facility] [place] [facility] Oct 08, 2023 10:30 AM AMBULATORY - MEDICINE [facility] [place] [facility] Oct 08, 2023 10:45 AM AMBULATORY - MEDICINE [place] [facility] [place] [facility] Oct 08, 2023 11:00 AM AMBULATORY - REHAB MEDICIN E [facility] [place] [facility] Oct 09, 2023 10:00 AM AMBULATORY - MEDICINE [facility] [place] [facility] Oct 17, 2023 09:00 AM AMBULATORY - [facility] [place] [facility] Oct 21, 2023 09:00 AM AMBULATORY - MEDICINE [facility] [place] [facility] Oct 23, 2023 09:00 AM [facility]ATORY [facility] [place] [facility] Oct 24, 2023 09:00 AM AMBULATORY - REHAB MEDICIN E [facility] [place] [facility] Oct 28, 2023 09:00 AM AMBULATORY [facility] MEDICINE [facility] [place] [facility] Oct 28, 2023 11:00 AM AMBULATORY - MEDICINE [facility] [place] [facility] Oct 30, 2023 09:00 AM AMBULATORY - MEDICINE [facility] [place] [facility] Nov 08, 2023 08:00 AM AMBULATORY - MEDICINE [facility] [place] [facility] Nov 14, 2023 09:00 AM AMBULATORY - REHAB MEDICIN E [facility] [place] [facility] Nov 15, 2023 09:00 AM AMBULATORY - MEDICINE [facility] [place] [facility] Nov 15, 2023 09:30 AM AMBULATORY - MEDICINE [facility] [place] [facility] Nov 18, 2023 11:00 AM AMBULATORY - MEDICINE [facility] [place] [facility] Nov 25, 2023 10:00 AM AMBULATORY - MEDICINE [facility] [place] [facility] Vital Signs: All taken on the encounter date This section contains inpatient and outpatient Vital Signs collected on the date of the Encounter. Date/Time Temperature Pulse Blood Pressure Respiratory Rate SP02 Pain Height Weight Body Mass Index Source Sep 13, 2023 11:34 AM 97.9 76 105/70 16 94 8 61 148.5 28 [facility] [place] [facility] Social History: Smoking Status (Most current) and Tobacco Use (All prior to encounter date) This section includes the most current, and the historical, smoking and tobacco- related health factors from the [place] facility where the Encounter took place. Current Smoking Status This section includes the most current smoking, or tobacco-related health factor, from the [place] facility where the Encounter took place. Date/Time Current Smoking Status Comment [facility] Feb 08, 2023 10:00 AM VA-TOBACCO FORMER USER [place] [facility] [place] [facility] Tobacco Use History This section includes a history of the smoking, or tobacco-related health factors, that were collected on or before the date of the Encounter. The data comes from the [place] facility where the Encounter took place. Date/Time Smoking Status/Tobac co Use Comment Facility Feb 08, 2023 10:00 AM VA-TOBACCO QUIT 15 YRS OR MORE [facility] [place] [facility] Mar 06, 2022 02:30 PM VA-TOBACCO FORMER USER [facility] [place] [facility] Mar 06, 2022 02:30 PM VA-TOBACCO QUIT 15 YRS OR MORE [facility] [place] [facility] Apr 04, 2021 10:28 AM VA-TOBACCO NEVER USED [facility] [place] [facility] May 03, 2020 02:00 PM VA-TOBACCO NEVER USED [facility] [place] [facility] Feb 25, 2019 08:14 AM VA-TOBACCO FORMER USER [facility] [place] [facility] Feb 25, 2019 08:14 AM VA-TOBACCO QUIT 5 TO < 15 YRS [facility] [place] [facility] Apr 04, 2018 10:41 AM QUIT TOBACCO USE 1-7 YEARS AGO [facility] [place] [facility] Oct 28, 2017 10:18 AM QUIT TOBACCO USE 1-7 YEARS AGO [facility] [place] [facility] Jan 22, 2017 01:08 PM QUIT TOBACCO USE 1-7 YEARS AGO [facility] [place] [facility] Jul 18, 2016 01:34 PM QUIT TOBACCO USE 1-7 YEARS AGO [facility] [place] [facility] January 10, 2016 10:32 AM QUIT TOBACCO USE 1-7 YEARS AGO [facility] [place] [facility] Oct 13, 2015 11:05 AM QUIT TOBACCO USE 1-7 YEARS AGO [facility] [place] [facility] Oct 19, 2014 01:53 PM QUIT TOBACCO USE > 7 YEARS AGO [facility] [place] [facility] January 02, 2014 01:30 AM QUIT TOBACCO USE IN PAST YEAR [facility] [place] [facility] Jun 18, 2013 09:00 AM CURRENT SMOKER 6 cigarettes qd [facility] [place] [facility] Jun 18, 2013 09:00 AM V1-PT DECLINES TOBACCO CESSATION MEDS [facility] [place] [facility] Jun 18, 2013 09:00 AM V1-PT NOT INTERESTED IN QUIT TOBACCO USE [facility] [place] [facility] December 24, 2012 10:51 AM V1-PT DECLINES REF TO TOBACCO CESS PRGM [facility] [place] [facility] December 24, 2012 10:51 AM V1-PT DECLINES TOBACCO CESSATION MEDS [facility] [place] [facility] December 24, 2012 10:51 AM V1-PT THINKING ABOUT QUIT TOBACCO USE [facility] [place] [facility] Jul 15, 2012 10:19 AM QUIT TOBACCO USE IN PAST YEAR [facility] Jan 25, 2012 05:02 PM QUIT TOBACCO USE IN PAST YEAR [facility] [place] [facility] Sep 28, 2011 10:09 AM CURRENT SMOKER 5 cigarettes a day [facility] Jun 15, 2011 02:23 PM V1-PT DECLINES REF TO TOBACCO CESS PRGM [facility] [place] [facility] Jun 15, 2011 02:23 PM V1-PT READY TO QUIT TOBACCO USE [facility] Apr 13, 2011 10:31 AM V1-PT DECLINES REF TO TOBACCO CESS PRGM [facility] Apr 13, 2011 10:31 AM V1-PT RECEIVES TOBACCO CESS MEDS OUTSIDE [facility] [place] [facility] Apr 13, 2011 10:31 AM V1-PT THINKING ABOUT QUIT TOBACCO USE [facility] Oct 16, 2010 08:52 AM QUIT TOBACCO USE IN PAST YEAR [facility] [place] [facility] May 12, 2010 02:08 PM V1-PT DECLINES REF TO TOBACCO CESS PRGM [facility] May 12, 2010 02:08 PM V1-PT READY TO QUIT TOBACCO USE [facility] May 12, 2010 12:45 PM CURRENT SMOKER 3 cigarettes a day [facility] Encounter Notes: All associated encounter notes This section contains the clinical notes associated to the Encounter. Date/Time Encounter Note(s) Provider Source Sep 13, 2023 12:11 PM PHYSICIAN NOTE: LOCAL TITLE: NOTE STANDARD TITLE: PHYSICIAN NOTE DATE OF NOTE: SEP 13, 2023@12:11 ENTRY DATE: SEP 13, 2023@12:11:45 AUTHOR: CADEN FELIZ COSIGNER: URGENCY: STATUS: COMPLETED Patient Name: PEBBLES MEEK Ms. is here for a sick visit. cc: abdominal pain referred from back She has been having more left lower abdominal pain. She was geting evaluated by her digital media intern who found pain was localized to the left SI joint and suspects piriformis syndrome. She feels some pain relief when she is not putting pressure on the left buttock when lying down or sitting and she is starting to get pain radiating down the left leg. She states that she has generalized puritis and tingling at the lips which started when she started Elequis. The puritis is severe and affecting her sleep. She has excoriations at the scalp and buttock from the puritis. Past Medical History: Active problems - Computerized Problem List is the source for the followin. Long-term current use of anticoagulant 2. Gastro-esophageal reflux disease with esophagitis 3. Migraine 4. Vertigo 5. NAFLD - Nonalcoholic fatty liver disease 6. Vitamin D deficiency 7. 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r mental disorder 8. Urge incontinence of urine (SNOMED CT 80623524) 9. Osteopenia 10. Sciatica 11. Obesity 12. Chronic obstructive lung disease (SNOMED CT 97460366) 13. Diabetes mellitus (SNOMED CT 71149778) 14. Restless Leg Syndrome * 15. Knee pain (SNOMED CT 5596963611) 16. Paroxysmal atrial fibrillation (SNOMED CT 548342392) 17. Other and unspecified Sleep Apnea on cpap 18. Hyperlipidemia (SNOMED CT 39028776) 19. Chronic anxiety (SNOMED CT 331062814) with panic attacks, currently well controlled 20. Asthma (SNOMED CT 349753558) 21. Chronic depression (SNOMED CT 730316726) reviewed 22. PTSD - Post-traumatic stress disorder (SNOMED CT 82707401) reviewed 23. Knee Joint replacement Status (Prosthetic or Artificial Device) Allergies: SULFUR, ZOCOR, NIACIN, VARENICLINE, MOXIFLOXACIN, MIRTAZAPINE ASPIRIN RELATED MEDICATIONS, ATORVASTATIN Current Medications: Active Outpatient Medications (including Supplies): ALBUTEROL 3/IPRATROP 0.5MG/3ML INHL 3ML INHALE 1 AMPULE IN ACTIVE NEBULIZER EVERY THREE HOURS NEEDED FOR BRONCHOSPASM APIXABAN 5MG TAB TAKE ONE TABLET BY MOUTH EVERY 12 HOURS ACTIVE CETIRIZINE HCL 10MG TAB TAKE ONE TABLET BY MOUTH ONCE ACTIVE DAILY FOR ALLERGIES CYANOCOBALAMIN 100MCG TAB TAKE ONE TABLET BY MOUTH EVERY ACTIVE OTHER DAY FOR VITAMIN SUPPLEMENTATION CYCLOBENZAPRINE HCL 5MG TAB TAKE ONE TABLET BY MOUTH THREE PENDING TIMES DAILY NEEDED DICLOFENAC NA 1% TOP GEL APPLY 2 GRAMS TOPICALLY FOUR HOLD TIMES A DAY FOR OSTEOARTHRITIS - USE DOSING CARD PROVIDED IN BOX AT [facility] DILTIAZEM (EQV-TIAZAC) 240MG 24HR CAP TAKE ONE CAPSULE BY ACTIVE MOUTH EVERY MORNING PATIENT EXPERIENCE ADVERSE REACTION TO BPeSA BRAND/PLEASE DISPENSE VALEANT/OCEANSIDE BRAND [facility] [id number] FORMOTEROL 5/MOMETASONE 200MCG 120D INHL INHALE 2 PUFFS BY HOLD MOUTH TWICE DAILY FOR CONTROLLER MEDICATION FOR ASTHMA IBUPROFEN 800MG TAB TAKE ONE TABLET BY MOUTH THREE TIMES ACTIVE DAILY NEEDED FOR PAIN TAKE WITH FOOD KETOTIFEN 0.025% OPH SOLN INSTILL 1 DROP INTO EACH EYE ACTIVE EVERY 12 HOURS FOR ALLERGIC CONJUNCTIVITIS (IF YOU WEAR CONTACT LENSES, WAIT 10 MINUTES BEFORE INSERTING LENSES) LORAZEPAM 0.5MG TAB TAKE ONE TABLET BY MOUTH ONCE DAILY ACTIVE NEEDED ANXIETY FOR ANXIETY METFORMIN HCL 1000MG TAB TAKE ONE TABLET BY MOUTH TWICE ACTIVE DAILY FOR DIABETES OMEPRAZOLE 20MG EC CAP TAKE TWO CAPSULES BY MOUTH EVERY ACTIVE MORNING 30 MINUTES BEFORE BREAKFAST INCRESED DOSE PRAZOSIN HCL 1MG CAP TAKE ONE CAPSULE BY MOUTH AT BEDTIME HOLD NIGHTMARES SERTRALINE(ZOLOFT) 100MG TAB*BRAND NAME* TAKE TWO TABLETS ACTIVE BY MOUTH ONCE DAILY ANXIETY TRAZODONE HCL 100MG TAB TAKE ONE-HALF TABLET BY MOUTH AT ACTIVE BEDTIME NEEDED FOR SLEEP Non-VA DIPHENHYDRAMINE HCL 25MG CAP 25MG BY MOUTH ACTIVE NEEDED Non-VA FISH OIL 500MG DHA/EPA CAP,ORAL BY MOUTH ACTIVE Non-VA OTHER CAP/TAB BY MOUTH ACTIVE Non-VA OTHER CAP/TAB MAGNESIUM 1200MG BY MOUTH ONCE DAILY ACTIVE Non-VA TURMERIC CAP/TAB BY MOUTH ACTIVE Non-VA VITAMIN E CAP,ORAL BY MOUTH ACTIVE Non-VA ZINC 50MG (FROM SULFATE) CAP 50MG BY MOUTH ONCE ACTIVE DAILY ROS: General: no fever CV: no cp, no sob, no palpitations Lung: no VASQUEZ, no cough, no wheezing Abd: no n/v/d, no pain Psych: no SI PE: BP:105/70 (09/13/2023 11:34) Pulse:76 (09/13/2023 11:34) Resp:16 (09/13/2023 11:34) Temp:97.9 F [36.6 C] (09/13/2023 11:34) Pulse Oximetry VITAL SIGNS SELECTED Measurement DT POx (L/MIN)(%) 09/13/2023 11:34 94 Pain:8 (09/13/2023 11:34) Weight:148.5 lb [67.36 kg] (09/13/2023 11:34) Height:61 in [154.9 cm] (09/13/2023 11:34) BMI: 28.1 General: very uncomforatble and nearly tearful neg straight leg raise b/l, +DAVID on left, neg on right, 5/5 strenght, TTP over iliac crest and area of pirifomis Ext: no edema, warm and well perfused b/l Psych: A&O x3, anxious mood and affect, in pain A/P SI joint dysfunction on left with piriformis pain as well. Linda cause of abdominal pain for the past 6-9 months and now getting worse - cyclobenzaprin 5mg tid for piriformis apin - local heat and stretching - referred to PT and chiropractor A-FIB on elequis but c/o intollerable puritis and tingling at lips. - advised her to call geophysical laboratory chief to change AC medicaiton f/u as scheduled 10/2023 for chronic conditions. The above plan and education was reviewed with the and they verbalized understanding. Medication Reconciliation: Outpatient: Has the patient been taking medications as documented in the EMLR? YES: The patient has been taking medications as documented in the EMLR. Essential Medication List for Review used to complete this medication reconciliation. INCLUDED IN THIS LIST: Alphabetical list of active outpatient prescriptions dispensed from this [place] (local) and dispensed from another [place] or [facility] facility (remote) as well as inpatient orders (local, pending and active), local clinic medications, locally documented non-VA medications, and local prescriptions that have or been discontinued in the past 90 days. - All changes in medications, including all non-VA/Herbal/OTC medications were entered into CPRS. - If there were any medications the patient should no longer take, they were discontinued. - The patient/caregiver was instructed to update this list, discard old lists, and take this list to the next appointment, whether with a VA or non-VA provider. Medication List: JLV Link Data on this list may not be complete. Please check JLV. Allergies/ADRs (Tool #5) FACILITY ALLERGY/ADR -------- [facility] D NO KNOWN ALLERGIES [facility] [place] ASPIRIN RELATED MEDICATIONS [facility] [place] ATORVASTATIN [facility] [place] MIRTAZAPINE [facility] [place] [facility] MOXIFLOXACIN [facility] [place] [facility]AC[facility] [place] [facility] [place] VARENIC[facility] [place] [facility]OCOR [facility] SULFA DRUGS [facility] - SULFAMETHOXAZOLE/TRIMETHOPR IM Med. Reconciliation (Tool #1) INCLUDED IN THIS LIST: Alphabetical list of active outpatient prescriptions dispensed from this VA (local) and dispensed from another [place] or [facility] facility (remote) as well as inpatient orders (local pending and active), local clinic medications, locally documented non-VA medications, and local prescriptions that have or been discontinued in the past 90 days. Non-VA Meds Last Documented On: Jun 27, 2023 NOTE The display of VA prescriptions dispensed from another [place] or [facility] facility (remote) is limited to active outpatient prescription entries matched to National Drug File at the originating site and may not include some items such as investigational drugs, compounds, etc. NOT INCLUDED IN THIS LIST: Medications self-entered by the patient into personal health records (i.e. [employer]) are NOT included in this list. Non-VA medications documented outside this [place], remote inpatient orders (regardless of status) and remote clinic medications are NOT included in this list. The patient and provider must always discuss medications the patient is taking, regardless of where the medication was dispensed or obtained. OUTPT ALBUTEROL 3/IPRATROP 0.5MG/3ML INHL 3ML (Status = Active) INHALE 1 AMPULE IN NEBULIZER EVERY THREE HOURS NEEDED FOR BRONCHOSPASM Rx# [id number] Last Released: 01/08/23 Qty/Days Supply: 120/30 Rx Expiration Date: 01/09/24 Refills Remainin Indication: FOR BRONCHOSPASM OUTPT APIXABAN 5MG TAB (Status = Discontinued) TAKE ONE TABLET BY MOUTH TWICE DAILY Rx# [id number] Last Released: 07/19/23 Qty/Days Supply: 6030 Rx Expiration Date: 06/25/24 Refills Remainin OUTPT APIXABAN 5MG TAB (Status = Active) TAKE ONE TABLET BY MOUTH EVERY 12 HOURS Rx# [id number] Last Released: 08/17/23 Qty/Days Supply: 180/ Rx Expiration Date: 08/09/24 Refills Remainin Indication: FOR PREVENTION OF BLOOD CLOTS OUTPT CETIRIZINE HCL 10MG TAB (Status = Active) TAKE ONE TABLET BY MOUTH ONCE DAILY FOR ALLERGIES Rx# [id number] Last Released: 04/16/23 Qty/Days Supply: 90 Rx Expiration Date: 02/09/24 Refills Remainin Indication: FOR ALLERGIES OUTPT CHOLECALCIF 25MCG (D3-1,000UNIT) TAB (Status = ) TAKE ONE TABLET BY MOUTH ONCE DAILY FOR VITAMIN SUPPLEMENTATION Rx# [id number] Last Released: 08/14/22 Qty/Days Supply: Rx Expiration Date: 08/11/23 Refills Remainin Indication: FOR VITAMIN D DEFICIENCY OUTPT CYANOCOBALAMIN 100MCG TAB (Status = Active) TAKE ONE TABLET BY MOUTH EVERY OTHER DAY FOR VITAMIN SUPPLEMENTATION Rx# [id number] Last Released: 05/13/23 Qty/Days Supply: Rx Expiration Date: 05/10/24 Refills Remainin Indication: FOR PREVENTION OF VITAMIN B12 DEFICIENCY OUTPT CYCLOBENZAPRINE HCL 5MG TAB (Status = Pending) TAKE ONE TABLET BY MOUTH THREE TIMES DAILY NEEDED Login Date: 09/13/23 Qty/Days Supply: 45 Refills Ordered: 0 OUTPT DICLOFENAC NA 1% TOP GEL (Status = On Hold) APPLY 2 GRAMS TOPICALLY FOUR TIMES A DAY FOR OSTEOARTHRITIS - USE DOSING CARD PROVIDED IN BOX AT [facility] Rx# [id number] Last Released: 03/05/23 Qty/Days Supply: 300/30 Rx Expiration Date: 02/09/24 Refills Remainin Indication: FOR JOINT PAIN OUTPT DILTIAZEM (EQV-TIAZAC) 180MG 24HR CAP (Status = Discontinued) TAKE ONE CAPSULE BY MOUTH ONCE DAILY (PATIENT EXPERIENCED AN ADVERSE REACTION WITH BPeSA BRAND/PLEASE DISPENSE VALEANT/OCEANSIDE BRAND [facility] [id number]) Rx# [id number] Last Released: Qty/Days Supply: Rx Expiration Date: 05/10/24 Refills Remainin OUTPT DILTIAZEM (EQV-TIAZAC) 240MG 24HR CAP (Status = Active) TAKE ONE CAPSULE BY MOUTH EVERY MORNING PATIENT EXPERIENCE ADVERSE REACTION TO BPeSA BRAND/PLEASE DISPENSE VALEANT/OCEANSIDE BRAND [facility] [id number] Rx# [id number] Last Released: 06/26/23 Qty/Days Supply: Rx Expiration Date: 06/25/24 Refills Remainin Non-VA DIPHENHYDRAMINE HCL 25MG CAP TAKE 1 CAPSULE BY MOUTH NEEDED pruritus Non-VA FISH OIL 500MG DHA/EPA CAP,ORAL TAKE BY MOUTH OUTPT FORMOTEROL 5/MOMETASONE 200MCG 120D INHL (Status = On Hold) INHALE 2 PUFFS BY MOUTH TWICE DAILY FOR CONTROLLER MEDICATION FOR ASTHMA Rx# [id number] Last Released: 03/06/23 Qty/Days Supply: 09/17 Rx Expiration Date: 01/09/24 Refills Remainin Indication: FOR CONTROLLER MEDICATION FOR ASTHMA OUTPT IBUPROFEN 800MG TAB (Status = Active) TAKE ONE TABLET BY MOUTH THREE TIMES DAILY NEEDED FOR PAIN TAKE WITH FOOD Rx# [id number] Last Released: 03/06/23 Qty/Days Supply: Rx Expiration Date: 02/09/24 Refills Remainin Indication: FOR PAIN OUTPT KETOTIFEN 0.025% OPH SOLN (Status = Active) INSTILL 1 DROP INTO EACH EYE EVERY 12 HOURS FOR ALLERGIC CONJUNCTIVITIS (IF YOU WEAR CONTACT LENSES, WAIT 10 MINUTES BEFORE INSERTING LENSES) Rx# [id number] Last Released: 04/19/23 Qty/Days Supply: Rx Expiration Date: 04/15/24 Refills Remainin Indication: FOR ALLERGIC CONJUNCTIVITIS OUTPT LORAZEPAM 0.5MG TAB (Status = Active) TAKE ONE TABLET BY MOUTH ONCE DAILY NEEDED ANXIETY FOR ANXIETY Rx# [id number] Last Released: 07/08/23 Qty/Days Supply: Rx Expiration Date: 11/13/23 Refills Remainin Indication: ANXIETY OUTPT METFORMIN HCL 1000MG TAB (Status = Active) TAKE ONE TABLET BY MOUTH TWICE DAILY FOR DIABETES Rx# [id number] Last Released: 05/13/23 Qty/Days Supply: Rx Expiration Date: 05/10/24 Refills Remainin Indication: FOR TYPE 2 DIABETES MELLITUS OUTPT OMEPRAZOLE 20MG EC CAP (Status = Active) TAKE TWO CAPSULES BY MOUTH EVERY MORNING 30 MINUTES BEFORE BREAKFAST INCRESED DOSE Rx# [id number] Last Released: 05/13/23 Qty/Days Supply: Rx Expiration Date: 05/10/24 Refills Remainin Indication: FOR GASTROESOPHAGEAL REFLUX DISEASE Non-VA OTHER CAP/TAB TAKE BY MOUTH Garlic and Reishi Non-VA OTHER CAP/TAB TAKE BY MOUTH Apple Cider Vinegar Non-VA OTHER CAP/TAB TAKE BY MOUTH Nutritional Yeast Non-VA OTHER CAP/TAB TAKE BY MOUTH Organic Cruciferous Non-VA OTHER CAP/TAB TAKE BY MOUTH MCT Oil Non-VA OTHER CAP/TAB TAKE MAGNESIUM 1200MG BY MOUTH ONCE DAILY OUTPT PEG 400 0.4%/PROP GLYCOL 0.3% OPH SOLN (Status = ) INSTILL 1 DROP INTO EACH EYE FOUR TIMES DAILY NEEDED FOR DRYNESS Rx# [id number] Last Released: 04/19/23 Qty/Days Supply: Rx Expiration Date: 06/28/23 Refills Remainin OUTPT PRAZOSIN HCL 1MG CAP (Status = On Hold) TAKE ONE CAPSULE BY MOUTH AT BEDTIME NIGHTMARES Rx# [id number] Last Released: 03/06/23 Qty/Days Supply: Rx Expiration Date: 02/12/24 Refills Remainin Indication: NIGHTMARES OUTPT ROSUVASTATIN CA 20MG TAB (Status = Discontinued) TAKE ONE-HALF TABLET BY MOUTH AT BEDTIME FOR CHOLESTEROL TO REPLACE PRAVASTATIN Rx# [id number] Last Released: 05/13/23 Qty/Days Supply: Rx Expiration Date: 05/10/24 Refills Remainin Indication: FOR HIGH CHOLESTEROL OUTPT SERTRALINE(ZOLOFT) 100MG TAB*BRAND NAME* (Status = Active) TAKE TWO TABLETS BY MOUTH ONCE DAILY ANXIETY Rx# [id number] Last Released: 05/15/23 Qty/Days Supply: Rx Expiration Date: 05/13/24 Refills Remainin Indication: ANXIETY OUTPT TRAZODONE HCL 100MG TAB (Status = Active) TAKE ONE-HALF TABLET BY MOUTH AT BEDTIME NEEDED FOR SLEEP Rx# [id number] Last Released: 05/15/23 Qty/Days Supply: Rx Expiration Date: 05/13/24 Refills Remainin Indication: INSOMNIA Non-VA TURMERIC CAP/TAB TAKE BY MOUTH Non-VA VITAMIN E CAP,ORAL TAKE BY MOUTH Non-VA ZINC 50MG (FROM SULFATE) CAP TAKE 1 CAPSULE BY MOUTH ONCE DAILY SUPPLIES PHARMACY TERMS AND POSSIBLE PATIENT ACTIONS INPT = [place] inpatient order IV = MT intravenous medication OUTPT = [place] outpatient prescription PHARMACY POSSIBLE PATIENT TERMS EXPLANATION ACTIONS -------- ----- ACTIVE A prescription that can be If you have refills, filled at the local [place] pharmacy. you may request a refill of this prescription from your [place] pharmacy. CLINIC A medication you received during If you have questions a visit to a [place] clinic or about this medication emergency department. contact your [place] healthcare team. DISCONTINUED A prescription your provider has Contact your [place] stopped. It is no longer healthcare team if you available to be sent to you or need more of this picked up at the [place] pharmacy medication. window. A prescription which is too old Contact your VA to fill. This does not refer to healthcare team if you the expiration date of the need more of this medication in the container. medication. NON-VA A medication that came from If this medication someplace other than a VA information is pharmacy. This may be a incorrect or out of prescription from either the VA date, please tell your or non VA providers that was VA healthcare team. filled outside the VA. Or, it may be an ljau-szo-edkgvbq (OTC), herbal, dietary supplements or sample medication. ON HOLD An active prescription that will Contact your VA not be filled until pharmacy pharmacy when you need resolves the issue. more of this medication. PARKED An active prescription that will Contact your VA not be filled until the patient pharmacy when you need requests it. this medication. PENDING This prescription order has been If you have been sent to the pharmacy for review instructed to start and is not ready yet. this medication now, contact your VA pharmacy. SUSPENDED An active prescription that is Contact your VA not scheduled to be filled yet. pharmacy if you need You should receive it before this medication now. you run out. /jeana/ CADEN FELIZ M.D. PHYSICIAN Signed: 09/13/2023 12:32 CADEN FELIZ [place] [facility] [place] [facility] Sep 13, 2023 11:40 AM PREVENTIVE MEDICINE NURSING NOTE: LOCAL TITLE: CLINICAL REMINDERS/NURSING STANDARD TITLE: PREVENTIVE MEDICINE NURSING NOTE DATE OF NOTE: SEP 13, 2023@11:40 ENTRY DATE: SEP 13, 2023@11:40:38 AUTHOR: KIET FRANCIS COSIGNER: URGENCY: STATUS: COMPLETED PAVE Foot Check: A complete foot check was completed at this encounter. VISUAL INSPECTION: Includes inspection for skin breaks, deformity, erythema, trauma, pallor on elevation, dependent rubor, nail deformities, extensive callus and pitting edema. Visual exam results: Normal PEDAL PULSES: Includes palpation of dorsalis and posterior tibial pulses and signs/symptoms of vascular compromise like pain, pallor, parasthesia or paralysis. Present (even if diminished) SENSORY CHECK: Includes 10 gram Monofilament ([place]-Edgardo) test of sensation. Intact (Greater than or equal to 80% of sites checked) Abnormal (Less than 80% of sites checked): Intact LOW-RISK LOW RISK FOOT EDUCATION: 1. Advised patient not to walk barefoot. Instructed the patient to pay close attention to the style and fit of shoes. 2. Explained the importance of daily foot checks. Explained that loss of sensation leads to callouses. Callouses break down, which result in ulcers that may lead to gangrene and amputation. 3. Stressed the importance of daily foot hygiene. Warm (not hot) bathing of the feet, complete drying and thorough inspection for changes in the condition of the skin constitute daily foot care. Demonstrated how to do a thorough foot check. 4. Emphasized the use of clean, non-restrictive socks/stockings and well fitting shoes. 5. Stressed the importance of immediate follow-up of any foot injuries or ulcers. Explained that he/she should be non-weight bearing whenever there are lesions on the foot, to prevent cellular damage. Level of Understanding: Good /jeana/ YING PIEDRA, RN, CNL PRIMARY CARE TEAM NURSE Signed: 09/13/2023 11:42 KIET FRANCIS [place] [facility]
--- OUTSIDE RECORDS SUMMARY | 2024-08-04 16:49 | XMS_ITS | Encounter Summary ---
Author Name [facility] [place] [facility] [place] Address [address] [place] [address] Care Team Providers Care Meeting Planner Name Role Phone CADEN FELIZ Primary Care [...] PLAN I Aug 19, 2019 PLAN I [id number] MEEK,GR ICEL PATIENT [employer] OPTIONS MEDICARE SUPPLEMEN MARCIA PLANM Y Aug 19, 2019 PLANMY [id number] MEEK,GR ICEL PATIENT [employer] OPTIONS MEDICARE SUPPLEMEN MARCIA AARP MEDIC ARE SUPPL Aug 19, 2019 PLAN MY [id number] MEEK,GR ICEL PATIENT AARP INS MEDICARE SUPPLEMEN MARCIA PLANM Y Aug 19, 2019 PLANMY [id number] [phone] MEEK,GR ICEL PATIENT AARP MED SUPP MEDICARE SUPPLEMEN MARCIA Jul 19, 2010 PLANMY [id number] [phone] MEEK,GR ICEL PATIENT MEDICARE (WNR) MEDICARE () PART B Aug 19, 2008 PART B [id number] MEEK,GR ICEL PATIENT MEDICARE (WNR) MEDICARE () PART B Aug 19, 2008 PART B [id number] [phone] MEEK,GR ICEL PATIENT MEDICARE (WNR) MEDICARE () PART B Aug 19, 2008 PART B [id number] MEEK,GR ICEL PATIENT MEDICARE (WNR) MEDICARE () PART B Aug 19, 2008 PART B [id number] MEEK,GR ICEL PATIENT MEDICARE (WNR) MEDICARE () PART B Aug 19, 2008 PART B [id number] [phone] MEEK,GR ICEL PATIENT MEDICARE (WNR) MEDICARE () PART B Aug 19, 2008 PART B [id number] MEEK,GR ICEL PATIENT MEDICARE (WNR) MEDICARE () PART B Aug 19, 2008 PART B [id number] MEEK,GR ICEL PATIENT MEDICARE (WNR) MEDICARE () PART A December 18, 2003 PART A [id number] MEEK,GR ICEL PATIENT MEDICARE (WNR) MEDICARE () PART A December 18, 2003 PART A [id number] MEEK,GR ICEL PATIENT MEDICARE (WNR) MEDICARE () PART A December 18, 2003 PART A [id number] MEEK,GR ICEL PATIENT MEDICARE (WNR) MEDICARE () PART A December 18, 2003 PART A [id number] MEEK,GR ICEL PATIENT MEDICARE (WNR) MEDICARE () PART A December 18, 2003 PART A [id number] [phone] MEEK,GR ICEL PATIENT MEDICARE (WNR) MEDICARE () PART A December 18, 2003 PART A [id number] [phone] SABINE MEEK ICEL PATIENT MEDICARE (WNR) MEDICARE (M) PART A December 18, 2003 PART A [id number] SABINE MEEK PATIENT Selected Encounter This section includes the information on record at [place] for the Encounter. Date/Time Encounter Type Encounter Description Reason Provider Source Sep 26, 2023 08:00 AM THERAPEUTIC EXERCISES PHYSICAL THERAPY ICD-10-CM S33.6XXS Sprain of sacroiliac joint, sequregulo LOW,HPILIPPE Y ALBA IHE Encounter Template Text not used by [place] Assessments - Encounter Diagnoses This section includes the primary and secondary diagnoses documented for the Encounter. Date/Time Primary/Secondary Diagnosis Diagnosis Name Provider Source Sep 26, 2023 03:40 PM PRIMARY Sprain of sacroiliac joint, SALLY Barton [place] [facility] [place] [facility] Plan of Treatment: Future Appointments (+ 6 months) and Future Tests (+/- 45 days) The Plan of Treatment section includes [facility] care activities [facility] the [facility] [place] [facility] This section includes future appointments and future orders which are active, pending or scheduled. Future Appointments This section includes appointments that were scheduled to occur 6 months from the date of the Encounter, up to a maximum of 20 appointments. The data comes from all [place] treatment facilities. Appointment Date/Time Appointment Type Appointme nt Facility Name Oct 01, 2023 09:00 AM AMBULATORY - MEDICINE [facility] [place] [facility] Oct 02, 2023 10:30 AM AMBULATORY - REHAB MEDICIN E [place] [facility] [place] [facility] Oct 08, 2023 10:30 AM AMBULATORY - MEDICINE [facility] [place] [facility] Oct 08, 2023 10:45 AM AMBULATORY - MEDICINE [place] [facility] [place] [facility] Oct 08, 2023 11:00 AM AMBULATORY - REHAB MEDICIN E [facility] [place] [facility] Oct 09, 2023 10:00 AM AMBULATORY - MEDICINE [facility] [place] [facility] Oct 17, 2023 09:00 AM AMBULATORY - REHAB MEDICIN E [place] [facility] [place] [facility] Oct 21, 2023 09:00 AM AMBULATORY - MEDICINE [facility] [place] [facility] Oct 23, 2023 09:00 AM AMBULATORY - MEDICINE [facility] [place] [facility] Oct 24, 2023 09:00 AM AMBULATORY - REHAB MEDICIN E [facility] [place] [facility] Oct 28, 2023 09:00 AM AMBULATORY - MEDICINE [facility] [place] [facility] Oct 28, 2023 11:00 AM AMBULATORY - MEDICINE [facility] [place] [facility] Oct 30, 2023 09:00 AM AMBULATORY - MEDICINE [facility] [place] [facility] Nov 08, 2023 08:00 AM AMBULATORY - MEDICINE [facility] [place] [facility] Nov 14, 2023 09:00 AM AMBULATORY - REHAB MEDICIN E [facility] [place] [facility] Nov 15, 2023 09:00 AM AMBULATORY - MEDICINE [facility] [place] [facility] Nov 15, 2023 09:30 AM AMBULATORY - MEDICINE [facility] [place] [facility] Nov 18, 2023 11:00 AM AMBULATORY - MEDICINE [facility] [place] [facility] Nov 25, 2023 10:00 AM AMBULATORY - MEDICINE [facility] [place] [facility] Nov 27, 2023 09:30 AM AMBULATORY - MEDICINE [facility] [place] [facility] Social History: Smoking Status (Most current) [...] took place. Date/Time Current Smoking Status Comment [facility] it Feb 08, 2023 10:00 AM VA-TOBACCO FORMER USER [facility] Tobacco Use History This section includes a history of the smoking, or tobacco-related health factors, that were collected on or before the date of the Encounter. The data comes from the [place] facility where the Encounter took place. Date/Time Smoking Status/Tobac co Use Comment Facility Feb 08, 2023 10:00 AM VA-TOBACCO QUIT 15 YRS OR MORE [facility] [place] [facility] Mar 06, 2022 02:30 PM VA-TOBACCO FORMER USER [facility] [place] [facility] Mar 06, 2022 02:30 PM VA-TOBACCO QUIT 15 YRS OR MORE [facility] [place] [facility] Apr 04, 2021 10:28 AM VA-TOBACCO NEVER USED [place] [facility] [place] [facility] May 03, 2020 02:00 PM VA-TOBACCO NEVER USED [facility] [place] [facility] Feb 25, 2019 08:14 AM VA-TOBACCO FORMER USER [facility] [place] [facility] Feb 25, 2019 08:14 AM VA-TOBACCO QUIT 5 TO < 15 YRS [facility] [place] [facility] Apr 04, 2018 10:41 AM QUIT TOBACCO USE 1-7 YEARS AGO [facility] [place] [facility] Oct 28, 2017 10:18 AM QUIT TOBACCO USE 1-7 YEARS AGO [facility] [place] [facility] Jan 22, 2017 01:08 PM QUIT TOBACCO USE 1-7 YEARS AGO [facility] [place] [facility] Jul 18, 2016 01:34 PM QUIT TOBACCO USE 1-7 YEARS AGO [facility] [place] [facility] January 10, 2016 10:32 AM QUIT TOBACCO USE 1-7 YEARS AGO [facility] [place] [facility] Oct 13, 2015 11:05 AM QUIT TOBACCO USE 1-7 YEARS AGO [facility] [place] [facility] Oct 19, 2014 01:53 PM QUIT TOBACCO USE > 7 YEARS AGO [facility] [place] [facility] January 02, 2014 01:30 AM QUIT TOBACCO USE IN PAST YEAR [facility] [place] [facility] Jun 18, 2013 09:00 AM CURRENT SMOKER 6 cigarettes qd [facility] [place] [facility] Jun 18, 2013 09:00 AM V1-PT DECLINES TOBACCO CESSATION MEDS [facility] [place] [facility] Jun 18, 2013 09:00 AM V1-PT NOT INTERESTED IN QUIT TOBACCO USE [facility] [place] [facility] December 24, 2012 10:51 AM V1-PT DECLINES REF TO TOBACCO CESS PRGM [facility] December 24, 2012 10:51 AM V1-PT DECLINES TOBACCO CESSATION MEDS [facility] December 24, 2012 10:51 AM V1-PT [facility]ING ABOUT [facility] Jul 15, 2012 10:19 AM QUIT TOBACCO USE [facility]ST [facility] Jan 25, 2012 05:02 PM QUIT TOBACCO USE IN PAST YEAR [facility] Sep 28, 2011 10:09 AM CURRENT SMOKER 5 cigarettes a day [facility] Jun 15, 2011 02:23 PM V1-PT DECLINES REF TO TOBACCO CESS [facility] Jun 15, 2011 02:23 PM V1-PT READY TO QUIT [facility]BACCO [facility] Apr 13, 2011 10:31 AM V1-PT DECLINES REF TO TOBACCO CESS [facility] Apr 13, 2011 10:31 AM V1-PT RECEIVES TOBACCO CESS MEDS OUTSIDE [facility] Apr 13, 2011 10:31 AM V1-PT THINKING ABOUT QUIT TOBACCO USE [facility] Oct 16, 2010 08:52 AM QUIT TOBACCO USE [facility]ST [facility] May 12, 2010 02:08 PM V1-PT DECLINES REF TO TOBACCO CESS PRGM [facility] May 12, 2010 02:08 PM V1-PT READY TO QUIT TOBACCO USE [facility] May 12, 2010 12:45 PM CURRENT SMOKER 3 cigarettes a day [facility] Encounter Notes: All associated encounter notes This section contains the clinical notes associated to the Encounter. Date/Time Encounter Note(s) Provider Source Sep 26, 2023 08:08 AM PHYSICAL THERAPY CONSULT: LOCAL TITLE: PHYSICAL THERAPY CONSULT STANDARD TITLE: PHYSICAL THERAPY CONSULT DATE OF NOTE: SEP 26, 2023@08:08 ENTRY DATE: SEP 26, 2023@08:08:21 AUTHOR: SALLY LOW COSIGNER: URGENCY: STATUS: COMPLETED Initial Evaluation date: 09/26/23 Progress Note Date: n/a Treatment #: eval Treatment time: 60min Diagnosis: sprain SI joint Provider: Isra PT Treatment Precautions: n/a Pt. identified by full name and SUBJECTIVE: No ALYCE pain ongoing for about 4 months, pain to L SI area and feels anteriorly as well and came on together seems to wrap around her trunk. L lower abdominal pain as well, bowel movements two times/day about 2 months ago felt relief after using the bathroom (anterior part) but other than that one incident she doesn't correlate a pain reduction with bowel movements, recent CT scan cleared internal organ/involvement lipoma noted on the exam of which she was encouraged to follow up w/ her PC, scheduled for colonoscopy as well Date of onset: (x) Gradual () Rapid Since onset: (x) Worsening () Improving ( ) Staying the same C/O: (x) Pain: LB, L sided posterior thigh, no paresthesia's. Constant pain dull today 5/10 has been up to 10/10 at times, when the pain is intense/bad the pain down the leg posteriorly to the knee which is felt several times/week No saddle paresthesia, no bowel/bladder concerns/issues, no leg weakness ( ) ROM: ( ) Strength: () Sensation: Improves w/: heating pads, ibuprofen/Tylenol/muscle relaxer tried but doesn't help Increases w/: sleeping on that side, traveled to upper/mid back when it's bad all pain on the L BP used to be all together across the LB, prolonged sitting, getting out of bed in the morning if she sleeps on that side, walking worsens it Exercises used tennis ball for STM tenderness there, has done stretches knee to chest side to side temporary relief. Nothing else for exercise at this point Acupuncture: weekly Fridays and she feels it's helping regularly for fairly long time with management of pain and MH symptoms acu thinks it's piriformis syndrome, chiropractic scheduled 10/09 Pt. goal: wants to get to the bottom of this and figure out what's wrong OBJECTIVE: Observation: standing R IC higher than L in standing, in sitting and supine hips symmetrical R LE longer than L in supine ? mild LL discrepancy d/t TKR? @ 1/4 longer LE Neuro Screen: (R) (L) Reflexes: (0, 1, 2, 3, 4) L4 Patellar 2+ 2+ S1 Achilles 2+ 2+ Myotomes: See MMT Dermatomes: (N=Normal, I=Impaired) L1 Inguinal N L2 Lat thigh N N L3 Medial knee N N L4 Great toe N N L5 2nd toe N N S1 Pinkey toe N N S2 Post thigh N N ROM: *Pain Lumbar flex: 100% pain/slight radiation to L glut Extension: 100% Lat flex: L SB mild pain to L glut Hip PROM WNL pain noted with hip flex to 90 and beyond pain to glut remaining LE motions wnl's, L hip ir tight 10deg on L, L hip er pain to groin R knee flex to 75deg final motion gained from R TKR sx, knee ext wnl's MMT / Myotomes (R) (L) *pain Hip flex L2 5 4* Knee flex L5: 5 5 Extension L3 5 5 Ankle DF L4 5 5 PF S1: 5 5 can heel/toe walk hip abd 5 4 mild pain Lumbar special tests (R) (L) LE Neural Tension Sitting slump (-) (+) SLR: (-) (+) Prone knee flex (-) (-) DAVID ` N/A + SI tests: squish/compression, gentleness all positive on L PALPATION: Pain with PA glides to the lower lumbar spine L3-5 sig tenderness here not able to formally assess joint mobility d/t tenderness, entire glut musculature TTP, SI joint TTP, Could not palpate piriformis d/t inability to get past surface muscles d/t tenderness/hypersensitivit y. ASSESSMENT: is a 73 year old female presenting to therapy with symptoms consistent with L sided SI joint inflammation and to a lesser extent possibly piriformis irritation. Difficult to accurately assess lumbar spine today as all tests caused elevation of pain and hypersensitivity of muscular region encompassing entire lower lumbar spine and SI/glut area. Objective examination revealed painful trunk range of motion and verbal reports involve sciatic nerve, Neural tension testing was pos but lower extremity myotomes appears WNL. Pt with mild leg length discrepancy which may or may not be contributing to symptoms so heel lift will be ordered/trialed as well. GOALS: 4 weeks 1.)Pt to report radicular complaints to be reduced by 25% 2.) L hip strength 4+/5 to aid in negotiating stairs 3.)Rx HEP in 4 appointments PLAN OF CARE: Lumbopelvic stability training in a neutral spine, manual to glut/piriformis if tolerable, gentle SI/glut stretching/stabilization strengthening, use of nustep for warm up, issue heel lift/trial TODAYS TREATMENT: Access Code: [email or web address] URL: [email or web address] Date: 09/27/2023 Prepared by: GEOVANNA [facility] Exercises - Supine Single Knee to Chest Stretch - 1 x daily - 7 x weekly - 3 sets - 5 reps - 30sec hold - Seated Piriformis Stretch - 1 x daily - 7 x weekly - 3 sets - 5 reps - 30sec hold - Supine Piriformis Stretch with Leg Straight - 1 x daily - 7 x weekly - 3 sets - 5 reps - 30sec hold - Supine Hamstring Stretch - 1 x daily - 7 x weekly - 3 sets - 5 reps - 30sec hold All treatments to be implemented at tolerance of pt. and discretion of therapist(s). Pt is in agreement with above goals and plan of care and will be discharged when goals are met or pt. has plateaued in progress. /jeana/ SALLY LOW PT PHYSICAL THERAPIST Signed: 09/27/2023 10:32 [facility]ALLY [facility]
[2024-08-04 16:50] LABS: MANUAL DIFF FLAG NO
--- OUTSIDE RECORDS SUMMARY | 2024-08-04 16:50 | XMS_ITS ---
Author Name [facility] [facility] [place] [facility] [place] [facility] [place] Address [address] [place] [address] Care Team Providers Care Credit Verification Clerk Name Role Phone CADEN FELIZ Primary Care [...] PLAN I Aug 19, 2019 PLAN I [id number] MEEK,GR ICEL PATIENT [employer] OPTIONS MEDICARE SUPPLEMEN MARCIA PLANM Y Aug 19, 2019 PLANMY [id number] MEEK,GR ICEL PATIENT [employer] OPTIONS MEDICARE SUPPLEMEN MARCIA AARP MEDIC ARE SUPPL Aug 19, 2019 PLAN MY [id number] MEEK,GR ICEL PATIENT AARP INS MEDICARE SUPPLEMEN MARCIA PLANM Y Aug 19, 2019 PLANMY [id number] [phone] MEEK,GR ICEL PATIENT AARP MED SUPP MEDICARE SUPPLEMEN MARCIA Jul 19, 2010 [facility] [id number] [phone] MEEK,GR ICEL PATIENT MEDICARE (WNR) MEDICARE () PART B Aug 19, 2008 PART B [id number] [phone] MEEK,GR ICEL PATIENT MEDICARE (WNR) MEDICARE () PART B Aug 19, 2008 PART B [id number] [phone] MEEK,GR ICEL PATIENT MEDICARE (WNR) MEDICARE () PART B Aug 19, 2008 PART B [id number] MEEK,GR ICEL PATIENT MEDICARE (WNR) MEDICARE () PART B Aug 19, 2008 PART B [id number] MEEK,GR ICEL PATIENT MEDICARE (WNR) MEDICARE () PART B Aug 19, 2008 PART B [id number] [phone] MEEK,GR ICEL PATIENT MEDICARE (WNR) MEDICARE () PART B Aug 19, 2008 PART B [id number] [phone] MEEK,GR ICEL PATIENT MEDICARE (WNR) MEDICARE () PART B Aug 19, 2008 PART B [id number] [phone] MEEK,GR ICEL PATIENT MEDICARE (WNR) MEDICARE () PART A December 18, 2003 PART A [id number] MEEK,GR ICEL PATIENT MEDICARE (WNR) MEDICARE () PART A December 18, 2003 PART A [id number] [phone] MEEK,GR ICEL PATIENT MEDICARE (WNR) MEDICARE () PART A December 18, 2003 PART A [id number] [phone] MEEK,GR ICEL PATIENT MEDICARE (WNR) MEDICARE () PART A December 18, 2003 PART A [id number] [phone] MEEK,GR ICEL PATIENT MEDICARE (WNR) MEDICARE () PART A December 18, 2003 PART A [id number] MEEK,GR ICEL PATIENT MEDICARE (WNR) MEDICARE () PART A December 18, 2003 PART A [id number] [phone] SABINE MEEK PATIENT MEDICARE (WNR) MEDICARE (M) PART A December 18, 2003 PART A [id number] [phone] SABINE MEEK PATIENT Selected Encounter This section includes the information on record at [place] for the Encounter. Date/Time Encounter Type Encounter Description Reason Provider Source Oct 08, 2023 11:00 AM MANUAL THERAPY 1/> [facility] ICD-10-CM S33.6XXS Sprain of sacroiliac joint, sequSALLY Avalos IHE Encounter Template Text not used by [place] Assessments - Encounter Diagnoses This section includes the primary and secondary diagnoses documented for the Encounter. Date/Time Primary/Secondary Diagnosis Diagnosis Name Provider Source Oct 08, 2023 02:36 PM PRIMARY Sprain of sacroiliac joint, SALLY Barton [place] [facility] [place] [facility] Plan of Treatment: Future Appointments (+ 6 months) and Future Tests (+/- 45 days) The Plan of Treatment section includes future care activities for the [facility] [place] [facility] This section includes future appointments and future orders which are active, pending or scheduled. Future Appointments This section includes appointments that were scheduled to occur 6 months from the date of the Encounter, up to a maximum of 20 appointments. The data comes from all [place] treatment facilities. Appointment Date/Time Appointment Type Appointme nt Facility Name Oct 09, 2023 10:00 AM AMBULATORY - MEDICINE [facility] [place] [facility] Oct 17, 2023 09:00 AM AMBULATORY - REHAB MEDICIN E [place] [facility] [place] [facility] Oct 21, 2023 09:00 AM AMBULATORY - MEDICINE [facility] [place] [facility] Oct 23, 2023 09:00 AM AMBULATORY - MEDICINE [place] [facility] [place] [facility] Oct 24, 2023 09:00 AM AMBULATORY - REHAB MEDICIN E [place] [facility] [place] [facility] Oct 28, 2023 09:00 AM AMBULATORY - MEDICINE [facility] [place] [facility] Oct 28, 2023 11:00 AM AMBULATORY - MEDICINE [facility] [place] [facility] Oct 30, 2023 09:00 AM AM[facility]ULATORY [facility] MEDICINE [facility] [place] [facility] Nov 08, 2023 08:00 AM AMBULATORY - MEDICINE [facility] [place] [facility] Nov 14, 2023 09:00 AM AMBULATORY - REHAB MEDICIN E [facility] [place] [facility] Nov 15, 2023 09:00 AM AMBULATORY - MEDICINE [facility] [place] [facility] Nov 15, 2023 09:30 AM AMBULATORY - MEDICINE [facility] [place] [facility] Nov 18, 2023 11:00 AM AMBULATORY - MEDICINE [facility] [place] [facility] Nov 25, 2023 10:00 AM AMBULATORY - MEDICINE [facility] [place] [facility] Nov 27, 2023 09:30 AM AMBULATORY - MEDICINE [facility] [place] [facility] Nov 28, 2023 09:00 AM AMBULATORY - MEDICINE [facility] [place] [facility] Nov 28, 2023 10:00 AM AMBULATORY - PSYCHIATRY [facility] [place] [facility] Dec 05, 2023 09:00 AM AMBULATORY - REHAB MEDICIN E [facility] [place] [facility] Dec 05, 2023 09:30 AM AMBULATORY - MEDICINE [facility] [place] [facility] Dec 09, 2023 09:30 AM AMBULATORY - MEDICINE [facility] [place] [facility] Lab Results: +/- 30 days of the encounter This section includes the Chemistry and Hematology Lab Results on record with [place] for the patient. Radiology Reports and Pathology Reports are provided separately, in subsequent sections. Lab Results This section contains the Chemistry/Hematology Results that were resulted 30 days before or 30 daysafter the date of the Encounter. Date/Time Source Result Type Result - Unit Interpretation Reference Range Comment Oct 28, 2023 09:26 AM [facility] [place] [facility] GLUCOSE, Fingerstick Specimen Type: BLOOD Comment: For GLU FinTest performed by: Linda Vee For GLU Fin Meter #: [id number] Ordering Provider: WALE FELIZ Report Released Date/Time: Oct 28, 2023 10:19 AM Reporting Lab: [place] [facility] [place] [address] [address] Performing Lab: [facility] [place] [facility] [address] [facility] [address] GLUCOSE, Fingerstick 178 mg/dL H 65-100 Social History: Smoking Status (Most current) and Tobacco Use (All prior to encounter date) This section includes the most current, and the historical, smoking and tobacco- related health factors from the [place] facility where the Encounter took place. Current Smoking Status This section includes the most current smoking, or tobacco-related health factor, from the [place] facility where the Encounter took place. Date/Time Current Smoking Status Comment [facility] Feb 08, 2023 10:00 AM VA-TOBACCO FORMER USER [place] [facility] [place] [facility] Tobacco Use History This section includes a history of the smoking, or tobacco-related health factors, that were collected on or before the date of the Encounter. The data comes from the [place] facility where the Encounter took place. Date/Time Smoking Status/Tobac co Use Comment [facility] Feb 08, 2023 10:00 AM VA-TOBACCO QUIT 15 YRS OR MORE [facility] [place] [facility] Mar 06, 2022 02:30 PM VA-TOBACCO FORMER USER [facility] [place] [facility] Mar 06, 2022 02:30 PM VA-TOBACCO QUIT 15 YRS OR MORE [facility] [place] [facility] Apr 04, 2021 10:28 AM VA-TOBACCO NEVER USED [facility] [place] [facility] May 03, 2020 02:00 PM VA-TOBACCO NEVER USED [facility] [place] [facility] Feb 25, 2019 08:14 AM VA-TOBACCO FORMER USER [facility] [place] [facility] Feb 25, 2019 08:14 AM VA-TOBACCO QUIT 5 TO < 15 YRS [facility] [place] [facility] Apr 04, 2018 10:41 AM QUIT TOBACCO USE 1-7 YEARS AGO [facility] [place] [facility] Oct 28, 2017 10:18 AM QUIT TOBACCO USE 1-7 YEARS AGO [facility] [place] [facility] Jan 22, 2017 01:08 PM QUIT TOBACCO USE 1-7 YEARS AGO [facility] [place] [facility] Jul 18, 2016 01:34 PM QUIT TOBACCO USE 1-7 YEARS AGO [facility] [place] [facility] January 10, 2016 10:32 AM QUIT TOBACCO USE 1-7 YEARS AGO [facility] [place] [facility] Oct 13, 2015 11:05 AM QUIT TOBACCO USE 1-7 YEARS AGO [facility] [place] [facility] Oct 19, 2014 01:53 PM QUIT TOBACCO USE > 7 YEARS AGO [facility] [place] [facility] January 02, 2014 01:30 AM QUIT TOBACCO USE IN PAST YEAR [place] [facility] [place] [place] [facility] Jun 18, 2013 09:00 AM CURRENT SMOKER 6 cigarettes qd [facility] Jun 18, 2013 09:00 AM V1-PT DECLINES TOBACCO CESSATION MEDS [facility] Jun 18, 2013 09:00 AM V1-PT NOT INTERESTED IN QUIT TOBACCO USE [facility] December 24, 2012 10:51 AM V1-PT DECLINES REF TO TOBACCO CESS PRGM [facility] [place] [facility] December 24, 2012 10:51 AM V1-PT DECLINES TOBACCO CESSATION MEDS [facility] December 24, 2012 10:51 AM V1-PT THINKING ABOUT QUIT TOBACCO USE [facility] [place] [facility] Jul 15, 2012 10:19 AM QUIT TOBACCO USE IN PAST YEAR [facility] [place] [facility] Jan 25, 2012 05:02 PM QUIT TOBACCO USE IN PAST YEAR [facility] Sep 28, 2011 10:09 AM CURRENT SMOKER 5 cigarettes a day [facility] [place] [place] [facility] Jun 15, 2011 02:23 PM V1-PT DECLINES REF TO TOBACCO CESS PRGM [facility] Jun 15, 2011 02:23 PM V1-PT READY TO QUIT TOBACCO USE [facility] [place] [facility] Apr 13, 2011 10:31 AM V1-PT DECLINES REF TO TOBACCO CESS PRGM [facility] Apr 13, 2011 10:31 AM V1-PT RECEIVES TOBACCO CESS MEDS OUTSIDE [facility] Apr 13, 2011 10:31 AM V1-PT THINKING ABOUT QUIT TOBACCO USE [facility] Oct 16, 2010 08:52 AM QUIT TOBACCO USE IN PAST YEAR [facility] May 12, 2010 02:08 PM V1-PT DECLINES REF TO TOBACCO CESS PRGM [facility] May 12, 2010 02:08 PM V1-PT READY TO QUIT TOBACCO USE [facility] May 12, 2010 12:45 PM CURRENT SMOKER 3 cigarettes a day [facility] Encounter Notes: All associated encounter notes This section contains the clinical notes associated to the Encounter. Date/Time Encounter Note(s) Provider Source Oct 08, 2023 01:55 PM PHYSICAL THERAPY N OTE: [facility] TITLE: PHYSICAL THERAPY STANDARD TITLE: PHYSICAL THERAPY NOTE DATE OF NOTE: OCT 08, 2023@13:55 ENTRY DATE: OCT 08, 2023@13:55:15 AUTHOR: SALLY LOW COSIGNER: URGENCY: STATUS: COMPLETED Initial Evaluation date: 09/26/23 Progress Note Date: n/a Treatment #: 2 Treatment time: 35min Diagnosis: sprain SI joint Provider: Isra TAMAYO Treatment Precautions: n/a SUBJECTIVE: It felt good the last time after I had left here, it felt good for about two days or so Pain 4/10 at the current time OBJECTIVE: Pt to PT today reporting consistency with HEP she feels it's going well, the heel lift is making her feel better she feels her hips are symmetrical THERAPEUTIC EXERCISE: MINUTES: 25 - nustep x5min L1 - piriformis stretch supine x3, SKTC x3 - clamshells 2x10 - hip abd 2x10 - modified plank on high plinth top x2 x10sec hold tolerated well some difficulty getting out of mod plank position d/t pain MANUAL THERAPY: MINUTES: 10 - myofascial release/STM to L ITB, glut med/max and slightly to piriformis in s/l SELF CARE/EDUCATION: MINUTES:-- - updated HEP as below Access Code: [email or web address] URL: [email or web address] Date: 09/27/2023 Prepared by: [facility] Patient education was provided for all aspects of care during this clinical encounter. ASSESSMENT: Tolerated treatment well, pain reduced with treatment, pt reported her L LE felt fatigued but not painful. Pain reduced w/ treatment PLAN: continue per plan of care, continue per plan of care, order full length insert for her shoe, size 8 /es/ SALLY LOW, PT PHYSICAL THERAPIST Signed: 10/08/2023 14:36 SALLY LOW [place] [facility]
--- OUTSIDE RECORDS SUMMARY | 2024-08-04 16:50 | XMS_ITS ---
Author Name [facility] [place] [facility] [place] [facility] [place] [facility] [place] Address [address] [place] [address] Care Team Providers Care Medical Instrument Technician Name Role Phone CADEN FELIZ Primary Care [...] PLAN I Aug 19, 2019 PLAN I [id number] [phone] MEEK,SABINE ICEL PATIENT [employer] OPTIONS MEDICARE SUPPLEMEN MARCIA PLANM Y Aug 19, 2019 PLANMY [id number] MEEK,GR ICEL PATIENT [employer] OPTIONS MEDICARE SUPPLEMEN MARCIA AARP MEDIC ARE SUPPL Aug 19, 2019 PLAN MY [id number] [phone] MEEK,GR ICEL PATIENT A[employer] INS MEDICARE SUPPLEMEN MARCIA PLANM Y Aug 19, 2019 PLANMY [id number] MEEK,GR ICEL PATIENT AARP MED SUPP MEDICARE SUPPLEMEN MARCIA Jul 19, 2010 PLANMY [id number] [phone] MEEK,GR ICEL PATIENT MEDICARE (WNR) MEDICARE () PART B Aug 19, 2008 PART B [id number] MEEK,GR ICEL PATIENT MEDICARE (WNR) MEDICARE () PART B Aug 19, 2008 PART B [id number] MEEK,GR ICEL PATIENT MEDICARE (WNR) MEDICARE () PART B Aug 19, 2008 PART B [id number] [phone] MEEK,GR ICEL PATIENT MEDICARE (WNR) MEDICARE () PART B Aug 19, 2008 PART B [id number] [phone] MEEK,GR ICEL PATIENT MEDICARE (WNR) MEDICARE () PART B Aug 19, 2008 PART B [id number] [phone] MEEK,GR ICEL PATIENT MEDICARE (WNR) MEDICARE () PART B Aug 19, 2008 PART B [id number] MEEK,GR ICEL PATIENT MEDICARE (WNR) MEDICARE () PART B Aug 19, 2008 PART B [id number] [phone] MEEK,GR ICEL PATIENT MEDICARE (WNR) MEDICARE () PART A December 18, 2003 PART A [id number] MEEK,GR ICEL PATIENT MEDICARE (WNR) MEDICARE () PART A December 18, 2003 PART A [id number] [phone] MEEK,GR ICEL PATIENT MEDICARE (WNR) MEDICARE () PART A December 18, 2003 PART A [id number] MEEK,GR ICEL PATIENT MEDICARE (WNR) MEDICARE () PART A December 18, 2003 PART A [id number] MEEK,GR ICEL PATIENT MEDICARE (WNR) MEDICARE () PART A December 18, 2003 PART A [id number] MEEK,GR ICEL PATIENT MEDICARE (WNR) MEDICARE () PART A December 18, 2003 PART A [id number] SABINE MEEK PATIENT MEDICARE (WNR) MEDICARE (M) PART A December 18, 2003 PART A [id number] SABINE MEEK PATIENT Selected Encounter This section includes the information on record at [place] for the Encounter. Date/Time Encounter Type Encounter Description Reason Pro vider Source Oct 03, 2023 01:18 PM Outpatient Encounter COMMUNITY CARE CONSULT IHE Encounter Template Text not used by [place] Plan of Treatment: Future Appointments (+ 6 months) and Future Tests (+/- 45 days) The Plan of Treatment section includes future care activities for the patient from all [place] treatmentfacilities. This section includes future appointments and future orders which are active, pending or scheduled. Future Appointments This section includes appointments that were scheduled to occur 6 months from the date of the Encounter, up to a maximum of 20 appointments. The data comes from all [place] treatment facilities. Appointment Date/Time Appointment Type Appointme nt Facility Name Oct 08, 2023 10:30 AM AM[facility]ULATORY [facility]ICINE [facility] [place] [facility] Oct 08, 2023 10:45 AM [facility]ORY [place] [facility]INE [facility] [place] [facility] Oct 08, 2023 11:00 AM AMBULATORY - REHAB MEDICIN E [facility] [place] [facility] Oct 09, 2023 10:00 AM AM[facility]ULATORY [place] [facility]ICINE [facility] [place] [facility] Oct 17, 2023 09:00 AM AMBULATORY - REHAB MEDICIN E [facility] [place] [facility] Oct 21, 2023 09:00 AM AMBULATORY - MEDICINE [facility] [place] [facility] Oct 23, 2023 09:00 AM AMBULATORY - MEDICINE [facility] [place] [facility] Oct 24, 2023 09:00 AM AMBULATORY - REHAB MEDICIN E [facility] [place] [facility] Oct 28, 2023 09:00 AM AMBULATORY - MEDICINE [facility] [place] [facility] Oct 28, 2023 11:00 AM AMBULATORY - MEDICINE [facility] [place] [facility] Oct 30, 2023 09:00 AM AMBULATORY - MEDICINE [facility] [place] [facility] Nov 08, 2023 08:00 AM AMBULATORY - MEDICINE [facility] [place] [facility] Nov 14, 2023 09:00 AM AMBULATORY - REHAB MEDICIN E [facility] [place] [facility] Nov 15, 2023 09:00 AM AMBULATORY [facility] MEDICINE [facility] [place] [facility] Nov 15, 2023 09:30 AM AM[facility]ULATORY [place] [facility]INE [facility] [place] [facility] Nov 18, 2023 11:00 AM AMBULATORY - MEDICINE [facility] [place] [facility] Nov 25, 2023 10:00 AM AMBULATORY - MEDICINE [facility] [place] [facility] Nov 27, 2023 09:30 AM [facility]ICINE [facility] [place] [facility] Nov 28, 2023 09:00 AM AM[facility]ORY [facility]ICINE [facility] [place] [facility] Nov 28, 2023 10:00 AM [facility] Lab Results: +/- 30 days of the encounter This section includes the Chemistry and Hematology Lab Results on record with [place] for the patient. Radiology Reports and Pathology Reports are provided separately, in subsequent sections. Lab Results This section contains the Chemistry/Hematology Results that were resulted 30 days before or 30 daysafter the date of the Encounter. Date/Time Source Result Type Result - Unit Interpretation Reference Range Comment Oct 28, 2023 09:26 AM [facility] GLUCOSE, Fingerstick Specimen Type: BLOOD Comment: For GLU FinTest performed by: Linda Vee For GLU Fin Meter #: [id number] Ordering Provider: WALE FELIZ Report Released Date/Time: Oct 28, 2023 10:19 AM Reporting Lab: [facility] [address] [address] Performing Lab: [facility] [address] [address] GLUCOSE, Fingerstick 178 mg/dL H 65-100 Social History: Smoking Status (Most current) and Tobacco Use (All prior to encounter date) This section includes the most current, and the historical, smoking and tobacco- related health factors from the [place] facility where the Encounter took place. Current Smoking Status This section includes the most current smoking, or tobacco-related health factor, from the [place] facility where the Encounter took place. Date/Time Current Smoking Status Comment [facility] Feb 08, 2023 10:00 AM VA-TOBACCO FORMER USER [facility] [place] [facility] Tobacco Use History This section includes a history of the smoking, or tobacco-related health factors, that were collected on or before the date of the Encounter. The data comes from the [place] facility where the Encounter took place. Date/Time Smoking Status/Tobac co Use Comment Facility Feb 08, 2023 10:00 AM VA-TOBACCO QUIT 15 YRS OR MORE [facility] [place] [facility] Mar 06, 2022 02:30 PM VA-TOBACCO FORMER USER [facility] [place] [facility] Mar 06, 2022 02:30 PM VA-TOBACCO QUIT 15 YRS OR MORE [facility] [place] [facility] Apr 04, 2021 10:28 AM VA-TOBACCO NEVER USED [facility] [place] [facility] May 03, 2020 02:00 PM VA-TOBACCO NEVER USED [facility] [place] [facility] Feb 25, 2019 08:14 AM VA-TOBACCO FORMER USER [facility] [place] [facility] Feb 25, 2019 08:14 AM VA-TOBACCO QUIT 5 TO < 15 YRS [facility] [place] [facility] Apr 04, 2018 10:41 AM QUIT TOBACCO USE 1-7 YEARS AGO [facility] [place] [facility] Oct 28, 2017 10:18 AM QUIT TOBACCO USE 1-7 YEARS AGO [facility] [place] [facility] Jan 22, 2017 01:08 PM QUIT TOBACCO USE 1-7 YEARS AGO [facility] [place] [facility] Jul 18, 2016 01:34 PM QUIT TOBACCO USE 1-7 YEARS AGO [facility] [place] [facility] January 10, 2016 10:32 AM QUIT TOBACCO USE 1-7 YEARS AGO [facility] [place] [facility] Oct 13, 2015 11:05 AM QUIT TOBACCO USE 1-7 YEARS AGO [facility] [place] [facility] Oct 19, 2014 01:53 PM QUIT TOBACCO USE > 7 YEARS AGO [facility] [place] [facility] January 02, 2014 01:30 AM [facility] [place] [facility] Jun 18, 2013 09:00 AM CURRENT SMOKER 6 cigarettes qd [facility] [place] [facility] Jun 18, 2013 09:00 AM V1-PT DECLINES [facility]BACCO [facility]ESS[facility] [place] [facility] Jun 18, 2013 09:00 AM V1-PT NOT INTERESTED IN QUIT TOBACCO USE [facility] [place] [facility] December 24, 2012 10:51 AM V1-PT DECLINES REF TO TOBACCO CESS PRGM [facility] [place] [facility] December 24, 2012 10:51 AM V1-PT DECLINES TOBACCO CESSATION MEDS [facility] [place] [facility] December 24, 2012 10:51 AM V1-PT THINKING ABOUT QUIT TOBACCO USE [facility] [place] [facility] Jul 15, 2012 10:19 AM QUIT TOBACCO USE IN PAST YEAR [facility] [place] [facility] Jan 25, 2012 05:02 PM QUIT TOBACCO USE IN PAST YEAR [facility] [place] [facility] Sep 28, 2011 10:09 AM CURRENT SMOKER 5 cigarettes a day [facility] [place] [facility] Jun 15, 2011 02:23 PM V1-PT DECLINES REF TO TOBACCO CESS PRGM [facility] [place] [facility] Jun 15, 2011 02:23 PM V1-PT READY TO QUIT TOBACCO USE [facility] Apr 13, 2011 10:31 AM V1-PT DECLINES REF TO TOBACCO CESS PRGM [facility] [place] [facility] Apr 13, 2011 10:31 AM V1-PT RECEIVES TOBACCO CESS MEDS OUTSIDE [facility] [place] [facility] Apr 13, 2011 10:31 AM V1-PT THINKING ABOUT QUIT TOBACCO USE [facility] [place] [place] [facility] Oct 16, 2010 08:52 AM QUIT TOBACCO USE IN [facility]ST [facility]AR [facility] [place] [facility] May 12, 2010 02:08 PM V1-PT DECLINES REF TO TOBACCO CESS PRGM [facility] May 12, 2010 02:08 PM V1-PT READY TO QUIT TOBACCO USE [facility] May 12, 2010 12:45 PM CURRENT SMOKER 3 cigarettes a day [facility] Encounter Notes: All associated encounter notes This section contains the clinical notes associated to the Encounter. Date/Time Encounter Note(s) Provider Source Oct 03, 2023 01:18 PM NONVA NOTE: [facility] TITLE: [facility] SELF PRESENTING CARE COORD PLAN STANDARD TITLE: NONVA NOTE DATE OF NOTE: OCT 03, 2023@13:18 ENTRY DATE: OCT 03, 2023@13:18:16 AUTHOR: DARRYL JOSUE EXP COSIGNER: URGENCY: STATUS: COMPLETED Emergency Notification Intake Date Presenting to the Facility: Aug Method of Contact: Notified from ECR worklist Notification ID: [id number] [facility] Referral #: [facility] Name: Hospital: [facility] Address: City: [place] State: [place] Zip Code: Phone : [facility] Point of Contact: Name: Khadra Phone: Chief complaint: LEFT SIDE PAIN, LOWER BACK PAIN, DIFFICULTY WALKING Primary Diagnosis: Disposition Discharged Date of discharge: Aug Discharge to Comment: ER Only /jeana/ DARRYL HAMMOND Signed: 10/03/2023 13:19 Receipt Acknowledged By: * AWAITING SIGNATURE * SHAHNAZ STEVEN 10/10/2023 16:31 /jeana/ Ora Dumont, RN-BS Marketing Specialist * AWAITING SIGNATURE * LYNNETTE TAMAYO * AWAITING SIGNATURE * ZORAIDA NULL DAWN MARIE TROUTDALE
--- OUTSIDE RECORDS SUMMARY | 2024-08-04 16:50 | XMS_ITS | Encounter Summary ---
Author Name [facility] [place] [facility] [place] [facility] [facility] [place] Address [address] [place] [address] Care Team Providers Care Real Estate Specialist Name Role Phone CADEN FELIZ Primary Care [...] PLAN I Aug 19, 2019 PLAN I [id number] [phone] MEEK,GR ICEL PATIENT [employer] OPTIONS MEDICARE SUPPLEMEN MARCIA PLANM Y Aug 19, 2019 PLANMY [id number] MEEK,GR ICEL PATIENT [employer] OPTIONS MEDICARE SUPPLEMEN MARCIA AARP MEDIC ARE SUPPL Aug 19, 2019 PLAN MY [id number] MEEK,GR ICEL PATIENT AARP INS MEDICARE SUPPLEMEN MARCIA PLANM Y Aug 19, 2019 PLANMY [id number] MEEK,GR ICEL PATIENT AARP MED SUPP MEDICARE SUPPLEMEN MARCIA Jul 19, 2010 PLANMY [id number] MEEK,GR ICEL PATIENT MEDICARE (WNR) MEDICARE () PART B Aug 19, 2008 PART B [id number] MEEK,GR ICEL PATIENT MEDICARE (WNR) MEDICARE () PART B Aug 19, 2008 PART B [id number] [phone] MEEK,GR ICEL PATIENT MEDICARE (WNR) MEDICARE () PART B Aug 19, 2008 PART B [id number] MEEK,GR ICEL PATIENT MEDICARE (WNR) MEDICARE () PART B Aug 19, 2008 PART B [id number] MEEK,GR ICEL PATIENT MEDICARE (WNR) MEDICARE () PART B Aug 19, 2008 PART B [id number] [id number] MEEK,GR ICEL PATIENT MEDICARE (WNR) MEDICARE () PART B Aug 19, 2008 PART B [id number] [phone] MEEK,GR ICEL PATIENT MEDICARE (WNR) MEDICARE () PART B Aug 19, 2008 PART B [id number] [phone] MEEK,GR ICEL PATIENT MEDICARE (WNR) MEDICARE () PART A December 18, 2003 PART A [id number] MEEK,GR ICEL PATIENT MEDICARE (WNR) MEDICARE () PART A December 18, 2003 PART A [id number] [phone] MEEK,GR ICEL PATIENT MEDICARE (WNR) MEDICARE () PART A December 18, 2003 PART A [id number] MEEK,GR ICEL PATIENT MEDICARE (WNR) MEDICARE () PART A December 18, 2003 PART A [id number] [phone] MEEK,GR ICEL PATIENT MEDICARE (WNR) MEDICARE () PART A December 18, 2003 PART A [id number] MEEK,GR ICEL PATIENT MEDICARE (WNR) MEDICARE () PART A December 18, 2003 PART A [id number] [phone] SABINE MEEK ICEJacky PATIENT MEDICARE (WNR) MEDICARE (M) PART A December 18, 2003 PART A [id number] SABINE MEEK PATIENT Selected Encounter This section includes the information on record at CT for the Encounter. Date/Time Encounter Type Encounter Description Reason Provider Source Oct 02, 2023 10:30 AM THERAPEUTIC EXERCISES PHYSICAL THERAPY ICD-10-CM S33.6XXS Sprain of sacroiliac joint, sequregulo LOW,PHILIPPE Y ALBA IHE Encounter Template Text not used by CT Assessments - Encounter Diagnoses This section includes the primary and secondary diagnoses documented for the Encounter. Date/Time Primary/Secondary Diagnosis Diagnosis Name Provider Source Oct 02, 2023 03:50 PM PRIMARY Sprain of sacroiliac joint, SALLY Barton [facility] [place] [facility] Plan of Treatment: Future Appointments (+ 6 months) and Future Tests (+/- 45 days) The Plan of Treatment section includes future care activities for the [facility] This section includes future appointments and future orders which are active, pending or scheduled. Future Appointments This section includes appointments that were scheduled to occur 6 months from the date of the Encounter, up to a maximum of 20 appointments. The data comes from all CT treatment facilities. Appointment Date/Time Appointment Type Appointme nt Facility Name Oct 08, 2023 10:30 AM AMBULATORY - MEDICINE [facility] [place] [facility] Oct 08, 2023 10:45 AM AMBULATORY - MEDICINE [facility] [place] [facility] Oct 08, 2023 11:00 AM [facility] [place] [facility] Oct 09, 2023 10:00 AM AMBULATORY - MEDICINE [facility] [place] [facility] Oct 17, 2023 09:00 AM [facility]ULAT[facility] [place] [facility] Oct 21, 2023 09:00 AM AMBULATORY - MEDICINE [facility] [place] [facility] Oct 23, 2023 09:00 AM AMBULATORY - MEDICINE [facility] [place] [facility] Oct 24, 2023 09:00 AM AMBULAT[facility] [place] [facility] Oct 28, 2023 09:00 AM [facility] [place] [facility] Oct 28, 2023 11:00 AM [facility] [place] [facility] Oct 30, 2023 09:00 AM [facility] [place] [facility] Nov 08, 2023 08:00 AM [facility] [place] [facility] Nov 14, 2023 09:00 AM [facility]BULAT[facility] [place] [facility] Nov 15, 2023 09:00 AM [facility]INE [facility] [place] [facility] Nov 15, 2023 09:30 AM [facility]INE [facility] [place] [facility] Nov 18, 2023 11:00 AM [facility]INE [facility] [place] [facility] Nov 25, 2023 10:00 AM AM[facility]ULAT[facility]INE [facility] [place] [facility] Nov 27, 2023 09:30 AM AM[facility]ULAT[facility]INE [facility] [place] [facility] Nov 28, 2023 09:00 AM AM[facility]ULATORY [facility]INE [facility] [place] [facility] Nov 28, 2023 10:00 AM AMBULATORY - PSYCHIATRY [facility] [place] [facility] Lab Results: +/- 30 days of [...] 2023 09:26 AM [facility] [place] [facility] GLUCOSE, Fingerstick Specimen Type: BLOOD Comment: For GLU FinTest performed by: Linda Vee For GLU Fin Meter #: [id number] Ordering Provider: WALE FELIZ Report Released Date/Time: Oct 28, 2023 10:19 AM Reporting Lab: [facility] [place] [address] [address] Performing Lab: [facility] [place] [facility] [address] [facility] [id number] GLUCOSE, Fingerstick 178 mg/dL H 65-100 Social History: Smoking Status (Most current) and Tobacco Use (All prior to encounter date) This section includes the most current, and the historical, smoking and tobacco- related health factors from the [place] facility where the Encounter took place. Current Smoking Status This section includes the most current smoking, or tobacco-related health factor, from the [place] facility where the Encounter took place. Date/Time Current Smoking Status Comment Facil it Feb 08, 2023 10:00 AM VA-TOBACCO FORMER USER CT [facility] [place] [facility] Tobacco Use History This section includes a history of the smoking, or tobacco-related health factors, that were collected on or before the date of the Encounter. The data comes from the [place] facility where the Encounter took place. Date/Time Smoking Status/Tobac co Use Comment [facility] Feb 08, 2023 10:00 AM VA-TOBACCO QUIT 15 YRS OR MORE [facility] [place] [facility] Mar 06, 2022 02:30 PM VA-TOBACCO FORMER USER [facility] [place] [facility] Mar 06, 2022 02:30 PM VA-TOBACCO QUIT 15 YRS OR MORE [facility] [place] [facility] Apr 04, 2021 10:28 AM VA-TOBACCO NEVER USED [facility] [place] [facility] May 03, 2020 02:00 PM VA-TOBACCO NEVER USED [facility] [place] [facility] Feb 25, 2019 08:14 AM VA-TOBACCO FORMER USER [facility] [place] [facility] Feb 25, 2019 08:14 AM VA-TOBACCO QUIT 5 TO < 15 YRS [facility] [place] [facility] Apr 04, 2018 10:41 AM QUIT TOBACCO USE 1-7 YEARS AGO [facility] [place] [facility] Oct 28, 2017 10:18 AM QUIT TOBACCO USE 1-7 YEARS AGO [facility] [place] [facility] Jan 22, 2017 01:08 PM QUIT TOBACCO USE 1-7 YEARS AGO [facility] [place] [facility] Jul 18, 2016 01:34 PM QUIT TOBACCO USE 1-7 YEARS AGO [facility] [place] [facility] January 10, 2016 10:32 AM QUIT TOBACCO USE 1-[address] [facility] [place] [facility] Oct 13, 2015 11:05 AM QUIT TOBACCO USE 1-[address] [facility] [place] [facility] Oct 19, 2014 01:53 PM QUIT TOBACCO USE > 7 [facility] [place] [facility] January 02, 2014 01:30 AM QUIT TOBACCO USE IN PAST YEAR [facility] [place] [facility] Jun 18, 2013 09:00 AM CURRENT SMOKER [address] [facility] [place] [facility] Jun 18, 2013 09:00 AM V1-PT DECLINES TOBACCO CESSATION MEDS [facility] Jun 18, 2013 09:00 AM V1-PT NOT INTERESTED IN QUIT TOBACCO USE [facility] [place] [facility] December 24, 2012 10:51 AM V1-PT DECLINES REF TO TOBACCO CESS PR[facility] [place] [facility] December 24, 2012 10:51 AM V1-PT DECLINES TOBACCO CESSATION MEDS [facility] [place] [facility] December 24, 2012 10:51 AM V1-PT THINKING ABOUT QUIT TOBACCO USE [facility] [place] [facility] Jul 15, 2012 10:19 AM QUIT TOBACCO USE IN PAST YEAR [facility] [place] [place] [facility] Jan 25, 2012 05:02 PM QUIT TOBACCO USE IN PAST YEAR [facility] [place] [facility] Sep 28, 2011 10:09 AM CURRENT SMOKER 5 cigarettes a day [facility] [place] [facility] Jun 15, 2011 02:23 PM V1-PT DECLINES REF TO TOBACCO CESS PRGM [facility] [place] [facility] Jun 15, 2011 02:23 PM V1-PT READY TO QUIT TOBACCO USE [facility] [place] [facility] Apr 13, 2011 10:31 AM V1-PT DECLINES REF TO TOBACCO CESS PR[facility] [place] [facility] Apr 13, 2011 10:31 AM V1-PT RECEIVES TOBACCO CESS MEDS OUTSIDE [facility] [place] [facility] Apr 13, 2011 10:31 AM V1-PT TH[facility]ING [facility] Oct 16, 2010 08:52 AM QUIT TOBACCO USE IN PAST YEAR [facility] May 12, 2010 02:08 PM V1-PT DECLINES REF TO TOBACCO CESS PRGM [facility] May 12, 2010 02:08 PM V1-PT READY TO QUIT TOBACCO [facility] May 12, 2010 12:45 PM CURRENT SMOKER 3 cigarettes a day [facility] Encounter Notes: All associated encounter notes This section contains the clinical notes associated to the Encounter. Date/Time Encounter Note(s) Provider Source Oct 02, 2023 03:30 PM PHYSICAL THERAPY N OTE: LOCAL TITLE: PHYSICAL THERAPY STANDARD TITLE: PHYSICAL THERAPY NOTE DATE OF NOTE: OCT 02, 2023@15:30 ENTRY DATE: OCT 02, 2023@15:30:09 AUTHOR: SALLY OLW COSIGNER: URGENCY: STATUS: COMPLETED Initial Evaluation date: 09/26/23 Progress Note Date: n/a Treatment #: 1 Treatment time: 30min Diagnosis: sprain SI joint Provider: Isra TAMAYO Treatment Precautions: n/a SUBJECTIVE: The stretches are helping I think OBJECTIVE: Pt reporting L sided SI pain 6/10 from glut into mid HS area, she has not done any soft tissue work at home yet with the tennis ball but she is interested in purchasing a foam roller THERAPEUTIC EXERCISE: MINUTES: 15 - SKTC X3 - piriformis stretch supine x3 - pt education in PN 2x10 - PN with hip flex 2x5 - foam rolling to glut/piriformis in sitting in chair x5min pt with difficulty performing long sit position d/t UE weakness so instructed on rolling in chair MANUAL THERAPY: MINUTES: 15 - myofascial release/STM to L ITB, glut med/max and slightly to piriformis in s/l SELF CARE/EDUCATION: MINUTES:-- - pt provided with/educated in heel lift in standing hips not symmetrical but appeared more symmetrical than without lift, pt education in slowly weaning into wearing it for longer periods of time each day Access Code: [email or web address] URL: [email or web address] Date: 09/27/2023 Prepared by: [facility] Patient education was provided for all aspects of care during this clinical encounter. ASSESSMENT: Tolerated treatment well, pain remained the same following treatment and pt felt heel lift was helpful PLAN: continue per plan of care, may begin cardio for warm up next session, follow up w/ heel lift if helpful order specific lift for shoe as opposed to trial one, begin gentle hip strengthening when tolerable /es/ SALLY LOW PT PHYSICAL THERAPIST Signed: 10/02/2023 15:50 SALLY LOW [facility]
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
--- OUTSIDE RECORDS SUMMARY | 2024-08-04 16:52 | XMS_ITS | Encounter Summary ---
Author Name [facility] [place] [facility] [place] Address [address] [place] [address] Care Team Providers Care Rn Observation Name Role Phone CADEN FELIZ Primary Care [...] PLAN I Aug 19, 2019 PLAN I [id number] MEEK,GR ICEL PATIENT [employer] OPTIONS MEDICARE SUPPLEMEN MARCIA PLANM Y Aug 19, 2019 PLANMY [id number] MEEK,GR ICEL PATIENT [employer] OPTIONS MEDICARE SUPPLEMEN MARCIA AARP MEDIC ARE SUPPL Aug 19, 2019 PLAN MY [id number] MEEK,GR ICEL PATIENT AARP INS MEDICARE SUPPLEMEN MARCIA PLANM Y Aug 19, 2019 PLANMY [id number] [phone] MEEK,GR ICEL PATIENT AARP MED SUPP MEDICARE SUPPLEMEN MARCIA Jul 19, 2010 [facility] [id number] MEEK,GR ICEL PATIENT MEDICARE (WNR) MEDICARE () PART B Aug 19, 2008 PART B [id number] [phone] MEEK,GR ICEL PATIENT MEDICARE (WNR) MEDICARE () PART B Aug 19, 2008 PART B [id number] [phone] MEEK,GR ICEL PATIENT MEDICARE (WNR) MEDICARE () PART B Aug 19, 2008 PART B [id number] MEEK,GR ICEL PATIENT MEDICARE (WNR) MEDICARE () PART B Aug 19, 2008 PART B [id number] MEEK,GR ICEL PATIENT MEDICARE (WNR) MEDICARE () PART B Aug 19, 2008 PART B [id number] [phone] MEEK,GR ICEL PATIENT MEDICARE (WNR) MEDICARE () PART B Aug 19, 2008 PART B [id number] MEEK,GR ICEL PATIENT MEDICARE (WNR) MEDICARE () PART B Aug 19, 2008 PART B [id number] MEEK,GR ICEL PATIENT MEDICARE (WNR) MEDICARE () PART A December 18, 2003 PART A [id number] MEEK,GR ICEL PATIENT MEDICARE (WNR) MEDICARE () PART A December 18, 2003 PART A [id number] MEEK,GR ICEL PATIENT MEDICARE (WNR) MEDICARE () PART A December 18, 2003 PART A [id number] MEEK,GR ICEL PATIENT MEDICARE (WNR) MEDICARE () PART A December 18, 2003 PART A [id number] MEEK,GR ICEL PATIENT MEDICARE (WNR) MEDICARE () PART A December 18, 2003 PART A [id number] MEEK,GR ICEL PATIENT MEDICARE (WNR) MEDICARE (M) PART A December 18, 2003 PART A [id number] SABINE MEEK ICEL PATIENT MEDICARE (WNR) MEDICARE (M) PART A December 18, 2003 PART A [id number] SABINE MEEK ICEJacky PATIENT Selected Encounter This section includes the information on record at [place] for the Encounter. Date/Time Encounter Type Encounter Description Reason Provider Source Oct 08, 2023 10:45 AM CMPTR OPHTH IMG OPTIC NERVE OPTOMETRY ICD-10-CM H40.013 Open angle with borderline findings, low risk, bilateral JEREMIE PARKER IHDarshan Encounter Template Text not used by [place] Assessments - Encounter Diagnoses This section includes the primary and secondary diagnoses documented for the Encounter. Date/Time Primary/Secondary Diagnosis Diagnosis Name Provider Source Oct 11, 2023 08:24 AM PRIMARY Open angle with borderline findings, low risk, bilateral JEREMIE PARKER [place] [facility] [place] [facility] Plan of Treatment: Future Appointments (+ 6 months) and Future Tests (+/- 45 days) The Plan of Treatment section includes future care activities for the [facility] [place] [facility] This section includes future appointments and future orders which are active, pending or scheduled. Future Appointments This section includes appointments that were scheduled to occur 6 months from the date of the Encounter, up to a maximum of 20 appointments. The data comes from all [place] treatment facilities. Appointment Date/Time Appointment Type Appointme nt Facility Name Oct 09, 2023 10:00 AM AMBULATORY - MEDICINE [facility] [place] [facility] Oct 17, 2023 09:00 AM AMBULATORY [place]ICIN [place] [facility] [facility] [facility] Oct 21, 2023 09:00 AM AM[place]IC[place] [facility] [facility] Oct 23, 2023 09:00 AM AM[place] [facility] Oct 24, 2023 09:00 AM AM[place]UL[place] [facility] [facility] Oct 28, 2023 09:00 AM AMBULATORY - MEDICINE [facility] [place] [facility] Oct 28, 2023 11:00 AM AM[place]ULATORY [place]INE [place] [facility] Oct 30, 2023 09:00 AM [facility] [facility] Nov 08, 2023 08:00 AM AM[facility]INE [facility] [place] [facility] Nov 14, 2023 09:00 AM AMBULATORY - RE[facility]AB MEDICIN E [facility] [place] [facility] Nov 15, 2023 09:00 AM AM[facility]ULATORY [facility]INE [facility] [place] [facility] Nov 15, 2023 09:30 AM AMBULATORY [facility] MEDICINE [facility] [facility] Nov 18, 2023 11:00 AM AMBULATORY [facility] MEDICINE [facility] [place] [facility] Nov 25, 2023 10:00 AM AM[facility]ULATORY [facility]ICINE [facility] [place] [facility] Nov 27, 2023 09:30 AM AM[facility]ULATORY [facility]ICINE [facility] [place] [facility] Nov 28, 2023 09:00 AM AM[facility]ULATORY [facility] MEDICINE [facility] [place] [facility] Nov 28, 2023 10:00 AM AMBULATORY - PSYCHIATRY [facility] [place] [facility] Dec 05, 2023 09:00 AM AMBULATORY - REHAB MEDICIN E [facility] [facility] Dec 05, 2023 09:30 AM AMBULATORY [facility] MEDICINE [facility] [place] [facility] Dec 09, 2023 09:30 AM AMBULATORY [facility] MEDICINE [facility] [place] [facility] Lab Results: +/- 30 days of the encounter This section includes the Chemistry and Hematology Lab Results on record with [place] for the patient. Radiology Reports and Pathology Reports are provided separately, in subsequent sections. Lab Results This section contains the Chemistry/Hematology Results that were resulted 30 days before or 30 daysafter the date of the Encounter. Date/Time Source Result Type Result - Unit Interpretation Reference Range Comment Oct 28, 2023 09:26 AM [facility] [place] [facility] GLUCOSE, Fingerstick Specimen Type: BLOOD Comment: For GLU FinTest performed by: Linda Vee For GLU Fin Meter #: [id number] Ordering Provider: WALE FELIZ Report Released Date/Time: Oct 28, 2023 10:19 AM Reporting Lab: [place] [facility] [address] [address] Performing Lab: [place] [facility] [facility] [address] [facility] [address] GLUCOSE, Fingerstick 178 mg/dL H 65-100 Social History: Smoking Status (Most current) and Tobacco Use (All prior to encounter date) This section includes the most current, and the historical, smoking and tobacco- related health factors from the [place] facility where the Encounter took place. Current Smoking Status This section includes the most current smoking, or tobacco-related health factor, from the [place] facility where the Encounter took place. Date/Time Current Smoking Status Comment [facility] it Feb 08, 2023 10:00 AM VA-TOBACCO FORMER USER [place] [facility] Tobacco Use History This section includes a history of the smoking, or tobacco-related health factors, that were collected on or before the date of the Encounter. The data comes from the [place] facility where the Encounter took place. Date/Time Smoking Status/Tobac co Use Comment [facility] Feb 08, 2023 10:00 AM VA-TOBACCO QUIT 15 YRS OR MORE [facility] [place] [facility] Mar 06, 2022 02:30 PM VA-TOBACCO FORMER USER [facility] [place] [facility] Mar 06, 2022 02:30 PM VA-TOBACCO QUIT 15 YRS OR MORE [facility] [place] [facility] Apr 04, 2021 10:28 AM VA-TOBACCO NEVER USED [facility] [place] [facility] May 03, 2020 02:00 PM VA-TOBACCO NEVER USED [facility] [place] [facility] Feb 25, 2019 08:14 AM VA-TOBACCO FORMER USER [facility] [place] [facility] Feb 25, 2019 08:14 AM VA-TOBACCO QUIT 5 TO < 15 YRS [facility] [place] [facility] Apr 04, 2018 10:41 AM QUIT TOBACCO USE 1-7 YEARS AGO [facility] [place] [facility] Oct 28, 2017 10:18 AM QUIT TOBACCO USE 1-7 YEARS AGO [facility] [facility] Jan 22, 2017 01:08 PM QUIT TOBACCO USE 1-7 YEARS AGO [facility] [facility] Jul 18, 2016 01:34 PM QUIT TOBACCO USE 1-7 YEARS AGO [facility] [place] [facility] January 10, 2016 10:32 AM QUIT TOBACCO USE 1-[facility]ARS AGO [facility] [place] [facility] Oct 13, 2015 11:05 AM QUIT TOBACCO USE 1-7 YEARS AGO [place] [facility] [facility] Oct 19, 2014 01:53 PM QUIT TOBACCO USE > 7 YEARS AGO [facility] [place] [facility] January 02, 2014 01:30 AM QUIT TOBACCO USE IN PAST YEAR [place] [facility] [facility] Jun 18, 2013 09:00 AM CURRENT SMOKER 6 cigarettes qd [facility] Jun 18, 2013 09:00 AM V1-PT DECLINES TOBACCO CESSATION MEDS [facility] [place] Jun 18, 2013 09:00 AM V1-PT NOT INTERESTED IN QUIT TOBACCO USE [facility] [place] December 24, 2012 10:51 AM V1-PT DECLINES REF TO TOBACCO CESS PRGM [facility] December 24, 2012 10:51 AM V1-PT DECLINES TOBACCO CESSATION MEDS [facility] [place] December 24, 2012 10:51 AM V1-PT THINKING ABOUT QUIT TOBACCO USE [facility] [place] [facility] Jul 15, 2012 10:19 AM QUIT TOBACCO USE IN PAST YEAR [facility] [facility] Jan 25, 2012 05:02 PM QUIT TOBACCO USE IN PAST YEAR [facility] Sep 28, 2011 10:09 AM CURRENT SMOKER 5 cigarettes a day [facility] [place] [facility] Jun 15, 2011 02:23 PM V1-PT DECLINES REF TO TOBACCO CESS PRGM [facility] Jun 15, 2011 02:23 PM V1-PT READY TO QUIT TOBACCO USE [facility] [place] [facility] Apr 13, 2011 10:31 AM V1-PT DECLINES REF TO TOBACCO CESS PRGM [facility] Apr 13, 2011 10:31 AM V1-PT RECEIVES TOBACCO CESS MEDS OUTSIDE [facility] [place] Apr 13, 2011 10:31 AM V1-PT THINKING ABOUT QUIT TOBACCO USE [facility] Oct 16, 2010 08:52 AM QUIT TOBACCO USE IN PAST YEAR [facility] May 12, 2010 02:08 PM V1-PT DECLINES REF TO TOBACCO CESS PRGM [facility] May 12, 2010 02:08 PM V1-PT READY TO QUIT TOBACCO USE [facility] May 12, 2010 12:45 PM CURRENT SMOKER 3 cigarettes a day [facility] Encounter Notes: All associated encounter notes This section contains the clinical notes associated to the Encounter. Date/Time Encounter Note(s) Provider Source Oct 11, 2023 08:21 AM OPTOMETRY CONSULT: LOCAL TITLE: CONSULT REPORT/OPTOMETRY/ELENA(T ) STANDARD TITLE: OPTOMETRY CONSULT DATE OF NOTE: OCT 11, 2023@08:21 ENTRY DATE: OCT 11, 2023@08:21:39 AUTHOR: JEREMIE PARKER COSIGNER: URGENCY: STATUS: COMPLETED Active Problems: Active Problem Long-term current use of anticoagul 06/27/2023 USCALI EDWARDS Gastro-esophageal reflux disease wi 01/11/2023 CADEN FELIZ Migraine G43.109 04/09/2022 [facility] Vertigo H81.4 04/09/2022 [facility] NAFLD - Nonalcoholic fatty liver di 12/29/2021 CADEN FELIZ Vitamin D deficiency E55.9 08/16/2020 CADEN FELIZ 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 12/21/2019 MALJAGUARFSIMAN ELLIS Urge incontinence of urine (SNOMED 01/12/2020 CADEN FELIZ Osteopenia M85.9 07/18/2016 CADEN FELIZ Sciatica M54.41 09/14/2015 CADEN FELIZ Obesity E66.09 01/12/2016 CADEN FELIZ Chronic obstructive lung disease (S 08/30/2015 CADEN FELIZ Diabetes mellitus (SNOMED CT 705344 07/20/2015 JENN SRIVASTAVA Restless Leg Syndrome * (ICD-9-CM 3 07/15/2012 DIPAK JOSEPH Knee pain (SNOMED CT 0689860933) R5 03/26/2022 CADEN FELIZ Paroxysmal atrial fibrillation (SNO 08/30/2015 CADEN FELIZ Other and unspecified Sleep Apnea 7 07/21/2010 BRITNEY SOTO Hyperlipidemia (SNOMED CT 26999042) 08/30/2015 CADEN FELIZ Chronic anxiety (SNOMED CT 33381162 12/09/2020 JACQUE MISTRY Asthma (SNOMED CT 961166456) J45.99 08/25/2015 MARIUM HUERTA Chronic depression (SNOMED [place] [address] 12/09/2020 JACQUE MISTRY PTSD - Post-traumatic stress disord 12/09/2020 JACQUE MISTRY Knee Joint replacement Status (Pros 08/30/2015 AMELIA HERNANDEZ Active Medications ([place]): Active Outpatient Medications (including Supplies): Active Outpatient Medications Status 1) ALBUTEROL 3/IPRATROP 0.5MG/3ML INHL 3ML INHALE 1 ACTIVE AMPULE IN NEBULIZER EVERY THREE HOURS NEEDED FOR BRONCHOSPASM 2) APIXABAN 5MG TAB TAKE ONE TABLET BY MOUTH EVERY 12 ACTIVE (S) HOURS 3) CETIRIZINE HCL 10MG TAB TAKE ONE TABLET BY MOUTH ONCE ACTIVE DAILY FOR ALLERGIES 4) CYANOCOBALAMIN 100MCG TAB TAKE ONE TABLET BY MOUTH ACTIVE EVERY OTHER DAY FOR VITAMIN SUPPLEMENTATION 5) CYCLOBENZAPRINE HCL 5MG TAB TAKE ONE TABLET BY MOUTH ACTIVE THREE TIMES DAILY NEEDED FOR MUSCLE SPASM 6) DICLOFENAC NA 1% TOP GEL APPLY 2 GRAMS TOPICALLY FOUR HOLD TIMES A DAY FOR OSTEOARTHRITIS - USE DOSING CARD PROVIDED IN BOX AT [facility] 7) DILTIAZEM (EQV-TIAZAC) 240MG 24HR CAP TAKE ONE ACTIVE CAPSULE BY MOUTH EVERY MORNING PATIENT EXPERIENCE ADVERSE REACTION TO [employer] BRAND/PLEASE DISPENSE VALEANT/OCEANSIDE BRAND [facility] [id number] 8) FORMOTEROL 5/MOMETASONE 200MCG 120D INHL INHALE 2 HOLD PUFFS BY MOUTH TWICE DAILY FOR CONTROLLER MEDICATION FOR ASTHMA 9) IBUPROFEN 800MG TAB TAKE ONE TABLET BY MOUTH THREE ACTIVE TIMES DAILY NEEDED FOR PAIN TAKE WITH FOOD 10) KETOTIFEN 0.025% OPH SOLN INSTILL 1 DROP INTO EACH ACTIVE EYE EVERY 12 HOURS FOR ALLERGIC CONJUNCTIVITIS (IF YOU WEAR CONTACT LENSES, WAIT 10 MINUTES BEFORE INSERTING LENSES) 11) LORAZEPAM 0.5MG TAB TAKE ONE TABLET BY MOUTH ONCE ACTIVE DAILY NEEDED ANXIETY FOR ANXIETY 12) METFORMIN HCL 1000MG TAB TAKE ONE TABLET BY MOUTH ACTIVE TWICE DAILY FOR DIABETES 13) OMEPRAZOLE 20MG EC CAP TAKE TWO CAPSULES BY MOUTH ACTIVE EVERY MORNING 30 MINUTES BEFORE BREAKFAST INCRESED DOSE 14) PRAZOSIN HCL 1MG CAP TAKE ONE CAPSULE BY MOUTH AT HOLD BEDTIME NIGHTMARES 15) SERTRALINE(ZOLOFT) 100MG TAB*BRAND NAME* TAKE TWO ACTIVE TABLETS BY MOUTH ONCE DAILY ANXIETY 16) TRAZODONE HCL 100MG TAB TAKE ONE-HALF TABLET BY MOUTH ACTIVE AT BEDTIME NEEDED FOR SLEEP Active Non-VA Medications Status 1) Non-VA DIPHENHYDRAMINE [...] CAP 50MG BY MOUTH ACTIVE ONCE DAILY 23 Total Medications Active Medications (non-VA prescribed): Allergies: SULFUR, ZOCOR, NIACIN, VARENICLINE, MOXIFLOXACIN, MIRTAZAPINE ASPIRIN RELATED MEDICATIONS, ATORVASTATIN S: Low risk open-angle glaucoma suspect with moderate asymmetric cupping and positive family history is in for repeat OCT. O: Neuroretinal rim and nerve fiber layer thickness OCT was run by management services technician. A: Neuroretinal rim and nerve fiber layer thickness OTCs are remaining stable from prior scans. Risk for open-angle glaucoma is low. P: Patient will keep annual follow-up from her March 2023 exam. /jeana/ JEREMIE PARKER OD STAFF PEARL PELLER Signed: 10/11/2023 08:22 JEREMIE PARKER [facility]
--- OUTSIDE RECORDS SUMMARY | 2024-08-04 16:52 | XMS_ITS | Encounter Summary ---
Author Name [facility] [place] [facility] [place] Address [address] [place] [address] Care Team Providers Care Bilingual Teacher Name Role Phone CADEN FELIZ Primary [...] PLAN I Aug 19, 2019 PLAN I [id number] [phone] MEEK,SABINE ICEL PATIENT [employer] OPTIONS MEDICARE SUPPLEMEN MARCIA PLANM Y Aug 19, 2019 PLANMY [id number] MEEK,GR ICEL PATIENT [employer] OPTIONS MEDICARE SUPPLEMEN MARCIA AARP MEDIC ARE SUPPL Aug 19, 2019 PLAN MY [id number] MEEK,SABINE ICEL PATIENT A[employer] INS MEDICARE SUPPLEMEN MARCIA PLANM Y Aug 19, 2019 PLANMY [id number] [phone] MEEK,GR ICEL PATIENT A[employer] MED SUPP MEDICARE SUPPLEMEN MARCIA Jul 19, 2010 PLANMY [id number] [phone] MEEK,GR ICEL PATIENT MEDICARE (WNR) MEDICARE () PART B Aug 19, 2008 PART B [id number] [phone] MEEK,GR ICEL PATIENT MEDICARE (WNR) MEDICARE () PART B Aug 19, 2008 PART B [id number] [phone] MEEK,GR ICEL PATIENT MEDICARE (WNR) MEDICARE () PART B Aug 19, 2008 PART B [id number] MEEK,GR ICEL PATIENT MEDICARE (WNR) MEDICARE () PART B Aug 19, 2008 PART B [id number] MEEK,GR ICEL PATIENT MEDICARE (WNR) MEDICARE () PART B Aug 19, 2008 PART B [id number] [phone] MEEK,GR ICEL PATIENT MEDICARE (WNR) MEDICARE () PART B Aug 19, 2008 PART B [id number] [phone] MEEK,GR ICEL PATIENT MEDICARE (WNR) MEDICARE () PART B Aug 19, 2008 PART B [id number] [phone] MEEK,GR ICEL PATIENT MEDICARE (WNR) MEDICARE () PART A December 18, 2003 PART A [id number] MEEK,GR ICEL PATIENT MEDICARE (WNR) MEDICARE () PART A December 18, 2003 PART A [id number] [phone] MEEK,GR ICEL PATIENT MEDICARE (WNR) MEDICARE () PART A December 18, 2003 PART A [id number] [phone] MEEK,GR ICEL PATIENT MEDICARE (WNR) MEDICARE () PART A December 18, 2003 PART A [id number] MEEK,GR ICEL PATIENT MEDICARE (WNR) MEDICARE () PART A December 18, 2003 PART A [id number] [phone] MEEK,GR ICEL PATIENT MEDICARE (WNR) MEDICARE () PART A December 18, 2003 PART A [id number] SABINE MEEK PATIENT MEDICARE (WNR) MEDICARE (M) PART A December 18, 2003 PART A [id number] [phone] SABINE MEEK PATIENT Selected Encounter This section includes the information on record at [place] for the Encounter. Date/Time Encounter Type Encounter Description Reason Provider Source Oct 08, 2023 10:30 AM EXTENDED VISUAL FIELD XM OPTOMETRY ICD-10-CM H40.013 Open angle with borderline findings, low risk, bilateral JEREMIE PARKER IHDarshan Encounter Template Text not used by [place] Assessments - Encounter Diagnoses This section includes the primary and secondary diagnoses documented for the Encounter. Date/Time Primary/Secondary Diagnosis Diagnosis Name Provider Source Oct 11, 2023 08:24 AM PRIMARY Open angle with borderline findings, low risk, bilateral JEREMIE PARKER [place] [facility] [place] [facility] Plan of Treatment: Future Appointments (+ 6 [...] 09, 2023 10:00 AM AMBULATORY - MEDICINE [facility] [place] [facility] Oct 17, 2023 09:00 AM AMBULATORY - REHAB MEDICIN E [place] [facility] [place] [facility] Oct 21, 2023 09:00 AM AMBULATORY - MEDICINE [place] [facility] [place] [facility] Oct 23, 2023 09:00 AM AMBULATORY - MEDICINE [place] [facility] [place] [facility] Oct 24, 2023 09:00 AM AMBULATORY - REHAB MEDICIN E [facility] [place] [facility] Oct 28, 2023 09:00 AM AMBULATORY - MEDICINE [facility] [place] [facility] Oct 28, 2023 11:00 AM AMBULATORY - MEDICINE [place] [facility] [place] [facility] Oct 30, 2023 09:00 AM AMBULATORY - MEDICINE [facility] [place] [facility] Nov 08, 2023 08:00 AM AMBULATORY - MEDICINE [facility] [place] [facility] Nov 14, 2023 09:00 AM AMBULATORY - REHAB MEDICIN E [facility] [place] [facility] Nov 15, 2023 09:00 AM AMBULATORY - MEDICINE [facility] [place] [facility] Nov 15, 2023 09:30 AM AMBULATORY - MEDICINE [facility] [place] [facility] Nov 18, 2023 11:00 AM AMBULATORY - MEDICINE [facility] [place] [facility] Nov 25, 2023 10:00 AM AMBULATORY - MEDICINE [facility] [place] [facility] Nov 27, 2023 09:30 AM AMBULATORY - MEDICINE [facility] [place] [facility] Nov 28, 2023 09:00 AM AMBULATORY - MEDICINE [facility] [place] [facility] Nov 28, 2023 10:00 AM AMBULATORY - PSYCHIATRY [facility] [place] [facility] Dec 05, 2023 09:00 AM AMBULATORY - REHAB MEDICIN E [facility] [place] [facility] Dec 05, 2023 09:30 AM AMBULATORY - MEDICINE [facility] [place] [facility] Dec 09, 2023 09:30 AM AMBULATORY - MEDICINE [facility] [place] [facility] Lab Results: +/- 30 days of the encounter This section includes the Chemistry and Hematology Lab Results on record with [place] for the patient. Radiology Reports and Pathology Reports are provided separately, in subsequent sections. Lab Results This section contains the Chemistry/Hematology Results that were resulted 30 days before or 30 daysafter the date of the Encounter. Date/Time Source Result Type Result - Unit Interpretation Reference Range Comment Oct 28, 2023 09:26 AM [place] [facility] [place] [facility] GLUCOSE, Fingerstick Specimen Type: BLOOD Comment: For GLU FinTest performed by: Linda Vee For GLU Fin Meter #: [id number] Ordering Provider: WALE FELIZ Report Released Date/Time: Oct 28, 2023 10:19 AM Reporting Lab: [facility] [place] [address] [address] Performing Lab: [place] [facility] [place] [facility] [address] [facility] [address] GLUCOSE, Fingerstick 178 mg/dL H 65-100 Social [...] 08, 2023 10:00 AM VA-TOBACCO FORMER USER [place] [facility] [place] [facility] Tobacco Use History This section includes a history of the smoking, or tobacco-related health factors, that were collected on or before the date of the Encounter. The data comes from the [place] facility where the Encounter took place. Date/Time Smoking Status/Tobac co Use Comment [facility] Feb 08, 2023 10:00 AM VA-TOBACCO QUIT 15 YRS OR MORE [facility] [place] [facility] Mar 06, 2022 02:30 PM VA-TOBACCO FORMER USER [facility] [place] [facility] Mar 06, 2022 02:30 PM VA-TOBACCO QUIT 15 YRS OR MORE [facility] [place] [facility] Apr 04, 2021 10:28 AM VA-TOBACCO NEVER USED [facility] [place] [facility] May 03, 2020 02:00 PM VA-TOBACCO NEVER USED [facility] [place] [facility] Feb 25, 2019 08:14 AM VA-TOBACCO FORMER USER [facility] [place] [facility] Feb 25, 2019 08:14 AM VA-TOBACCO QUIT 5 TO < 15 YRS [facility] [place] [facility] Apr 04, 2018 10:41 AM QUIT TOBACCO USE 1-7 YEARS AGO [facility] [place] [facility] Oct 28, 2017 10:18 AM QUIT TOBACCO USE 1-7 YEARS AGO [facility] [place] [facility] Jan 22, 2017 01:08 PM QUIT TOBACCO USE 1-7 YEARS AGO [facility] [place] [facility] Jul 18, 2016 01:34 PM QUIT TOBACCO USE 1-7 YEARS AGO [facility] [place] [facility] January 10, 2016 10:32 AM QUIT TOBACCO USE 1-7 YEARS AGO [place] [facility] [place] [facility] Oct 13, 2015 11:05 AM QUIT TOBACCO USE 1-7 YEARS AGO [place] [facility] [place] [facility] Oct 19, 2014 01:53 PM QUIT TOBACCO USE > 7 YEARS AGO [place] [facility] [place] [facility] January 02, 2014 01:30 AM QUIT TOBACCO USE IN PAST YEAR [place] [facility] [place] [place] [facility] Jun 18, 2013 09:00 AM CURRENT SMOKER 6 cigarettes qd [place] [facility] [place] [facility] Jun 18, 2013 09:00 AM V1-PT DECLINES TOBACCO CESSATION MEDS [place] [facility] [place] [facility] Jun 18, 2013 09:00 AM V1-PT NOT INTERESTED IN QUIT TOBACCO USE [facility] [place] [facility] December 24, 2012 10:51 AM V1-PT DECLINES REF TO TOBACCO CESS PRGM [facility] [place] [facility] December 24, 2012 10:51 AM V1-PT DECLINES TOBACCO CESSATION MEDS [place] [facility] [place] [facility] December 24, 2012 10:51 AM V1-PT THINKING ABOUT QUIT TOBACCO USE [facility] [place] [place] [facility] Jul 15, 2012 10:19 AM QUIT TOBACCO USE IN PAST YEAR [facility] [place] [facility] Jan 25, 2012 05:02 PM QUIT TOBACCO USE IN PAST YEAR [facility] [place] [facility] Sep 28, 2011 10:09 AM CURRENT SMOKER 5 cigarettes a day [place] [facility] [place] [facility] Jun 15, 2011 02:23 PM V1-PT DECLINES REF TO TOBACCO CESS PRGM [place] [facility] [place] [facility] Jun 15, 2011 02:23 PM V1-PT READY TO QUIT TOBACCO USE [facility] [place] [facility] Apr 13, 2011 10:31 AM V1-PT DECLINES REF TO TOBACCO CESS PRGM [place] [facility] [place] [facility] Apr 13, 2011 10:31 AM V1-PT RECEIVES TOBACCO CESS MEDS OUTSIDE [facility] [place] [facility] Apr 13, 2011 10:31 AM V1-PT THINKING ABOUT QUIT TOBACCO USE [facility] [place] [facility] Oct 16, 2010 08:52 AM QUIT TOBACCO USE IN PAST YEAR [facility] May 12, 2010 02:08 PM V1-PT DECLINES REF TO TOBACCO CESS PRGM [facility] May 12, 2010 02:08 PM V1-PT READY TO QUIT TOBACCO USE [facility] May 12, 2010 12:45 PM CURRENT SMOKER 3 cigarettes a day [facility] Encounter Notes: All associated encounter notes This section contains the clinical notes associated to the Encounter. Date/Time Encounter Note(s) Provider Source Oct 11, 2023 08:18 AM OPTOMETRY CONSULT: LOCAL TITLE: CONSULT REPORT/OPTOMETRY/ELENA(T ) STANDARD TITLE: OPTOMETRY CONSULT DATE OF NOTE: OCT 11, 2023@08:18 ENTRY DATE: OCT 11, 2023@08:18:39 AUTHOR: JEREMIE PARKER COSIGNER: URGENCY: STATUS: COMPLETED CONSULT REPORT/OPTOMETRY/ELENA(T ) Has ADDENDA Active Problems: Active Problem Long-term current use [...] 08/30/2015 CADEN FELIZ Diabetes mellitus (SNOMED CT 481243 07/20/2015 JENN SRIVASTAVA Restless Leg Syndrome * (ICD-9-CM 3 07/15/2012 DIPAK JOSEPH Knee pain (SNOMED CT 0229378138) R5 03/26/2022 CADEN FELIZ Paroxysmal atrial fibrillation (SNO 08/30/2015 CADEN FELIZ Other and unspecified Sleep Apnea 7 07/21/2010 BRITNEY SOTO Chuy Hyperlipidemia (SNOMED CT 30127667) 08/30/2015 CADEN FLEIZ Chronic anxiety (SNOMED CT 51972787 12/09/2020 JACQUE MISTRY Asthma (SNOMED CT 628545229) J45.99 08/25/2015 MARIUM HUERTA Chronic depression ([place] [address] 12/09/2020 JACQUE MISTRY PTSD - Post-traumatic stress [...] EVERY MORNING PATIENT EXPERIENCE ADVERSE REACTION TO [facility] [facility] BRAND/PLEASE DISPENSE [facility] [phone]) FORMOTEROL 5/MOMETASONE 200MCG 120D INHL INHALE [...] MOXIFLOXACIN, MIRTAZAPINE ASPIRIN RELATED MEDICATIONS, ATORVASTATIN S: Open-angle glaucoma suspect with moderate asymmetric cupping OU and positive family history for glaucoma is in for repeat threshold dumont. O: [employer] fast 242 dumont were run by environmental field services technician. A: Both dumont are essentially full and stable from prior dumont, however with outside normal limits GHT OD with couple depressions inferior not glaucomatous in nature, and OS with 11 false positive errors. P: Patient will keep 12-month follow-up from her last complete eye examination from March 2023. /jeana/ JEREMIE PARKER OD STAFF BERRY GROWER Signed: 10/11/2023 08:21 10/11/2023 ADDENDUM STATUS: COMPLETED Risk for open-angle glaucoma would be considered low. /jeana/ JEREMIE PARKER OD STAFF BERRY GROWER Signed: 10/11/2023 08:23 JEREMIE PARKER [place] [facility]
--- OUTSIDE RECORDS SUMMARY | 2024-08-04 16:53 | XMS_ITS | Encounter Summary ---
Author Name [facility] [place] [facility] [place] [facility] [place] Address [address] [place] [address] Care Team Providers Care Sports Development Officer Name Role Phone CADEN FELIZ Primary [...] PLAN I Aug 19, 2019 PLAN I [id number] [phone] MEEK,SABINE ICEL PATIENT [employer] OPTIONS MEDICARE SUPPLEMEN MARCIA PLANM Y Aug 19, 2019 PLANMY [id number] MEEK,GR ICEL PATIENT [employer] OPTIONS MEDICARE SUPPLEMEN MARCIA AARP MEDIC ARE SUPPL Aug 19, 2019 PLAN MY [id number] MEEK,GR ICEL PATIENT AARP INS MEDICARE SUPPLEMEN MARCIA PLANM Y Aug 19, 2019 PLANMY [id number] [phone] MEEK,GR ICEL PATIENT AARP MED SUPP MEDICARE SUPPLEMEN MARCIA Jul 19, 2010 PLANMY [id number] MEEK,GR ICEL PATIENT MEDICARE (WNR) MEDICARE () PART B Aug 19, 2008 PART B [id number] MEEK,GR ICEL PATIENT MEDICARE (WNR) MEDICARE () PART B Aug 19, 2008 PART B [id number] [phone] MEEK,GR ICEL PATIENT MEDICARE (WNR) MEDICARE () PART B Aug 19, 2008 PART B [id number] [phone] MEEK,GR ICEL PATIENT MEDICARE (WNR) MEDICARE () PART B Aug 19, 2008 PART B [id number] [phone] MEEK,GR ICEL PATIENT MEDICARE (WNR) MEDICARE () PART B Aug 19, 2008 PART B [id number] [phone] MEEK,GR ICEL PATIENT MEDICARE (WNR) MEDICARE () PART B Aug 19, 2008 PART B [id number] MEEK,GR ICEL PATIENT MEDICARE (WNR) MEDICARE () PART B Aug 19, 2008 PART B [id number] MEEK,GR ICEL PATIENT MEDICARE (WNR) MEDICARE () PART A December 18, 2003 PART A [id number] MEEK,GR ICEL PATIENT MEDICARE (WNR) MEDICARE () PART A December 18, 2003 PART A [id number] [phone] MEEK,GR ICEL PATIENT MEDICARE (WNR) MEDICARE () PART A December 18, 2003 PART A [id number] [phone] MEEK,GR ICEL PATIENT MEDICARE (WNR) MEDICARE () PART A December 18, 2003 PART A [id number] [phone] MEEK,GR ICEL PATIENT MEDICARE (WNR) MEDICARE () PART A December 18, 2003 PART A [id number] MEEK,GR ICEL PATIENT MEDICARE (WNR) MEDICARE () PART A December 18, 2003 PART A [id number] SABINE MEEK PATIENT MEDICARE (WNR) MEDICARE (M) PART A December 18, 2003 PART A [id number] SABINE MEEK PATIENT Selected Encounter This section includes the information on record at [place] for the Encounter. Date/Time Encounter Type Encounter Description Reason Pro vider Source Oct 14, 2023 01:51 PM Outpatient Encounter [facility]ITY [facility]ARE CONSULT IHE Encounter Template Text not used by [place] Plan of Treatment: Future Appointments (+ 6 months) and Future Tests (+/- 45 days) The Plan of Treatment section includes future care activities for the patient from all [place] treatmentfacilities. This section includes future appointments and future orders which are active, pending or scheduled. Future Appointments This section includes appointments that were scheduled to occur 6 months from the date of the Encounter, up to a maximum of 20 appointments. The data comes from all [place] treatment facilities. Appointment Date/Time Appointment Type Appointme nt Facility Name Oct 17, 2023 09:00 AM [facility]UL[facility] [place] [facility] Oct 21, 2023 09:00 AM [facility] [place] [facility] Oct 23, 2023 09:00 AM [facility] [place] [facility] Oct 24, 2023 09:00 AM AMBULATORY [facility] [place] [facility] Oct 28, 2023 09:00 AM [facility] [place] [facility] Oct 28, 2023 11:00 AM [facility] [place] [facility] Oct 30, 2023 09:00 AM [facility] [place] [facility] Nov 08, 2023 08:00 AM [facility] [place] [facility] Nov 14, 2023 09:00 AM AMBULATORY [facility] [place] [facility] Nov 15, 2023 09:00 AM [facility] [place] [facility] Nov 15, 2023 09:30 AM [facility] [place] [facility] Nov 18, 2023 11:00 AM [facility] [place] [facility] Nov 25, 2023 10:00 AM [facility]AT[facility] [place] [facility] Nov 27, 2023 09:30 AM [facility] [place] [facility] Nov 28, 2023 09:00 AM [facility] [place] [facility] Nov 28, 2023 10:00 AM AMBULATORY [facility] PSYCHIATRY [facility] [place] [facility] Dec 05, 2023 09:00 AM AMBULATORY [facility] [place] [facility] Dec 05, 2023 09:30 AM AMBULATORY - MEDICINE [facility] [place] [facility] Dec 09, 2023 09:30 AM AMBULATORY - MEDICINE [facility] [place] [facility] Dec 09, 2023 11:30 AM [facility] Lab Results: +/- 30 days of the encounter This section includes the Chemistry and Hematology Lab Results on record with [place] for the patient. Radiology Reports and Pathology Reports are provided separately, in subsequent sections. Lab Results This section contains the Chemistry/Hematology Results that were resulted 30 days before or 30 daysafter the date of the Encounter. Date/Time Source Result Type Result - Unit Interpretation Reference Range Comment Oct 28, 2023 09:26 AM [facility] GLUCOSE, Fingerstick Specimen Type: BLOOD Comment: For GLU FinTest performed by: Linda Vee For GLU Fin Meter #: [id number] Ordering Provider: WALE FELIZ Report Released Date/Time: Oct 28, 2023 10:19 AM Reporting Lab: [facility] [address] [facility] [id number] Performing Lab: [facility] [address] [facility] [id number] GLUCOSE, Fingerstick 178 mg/dL H 65-100 Social History: Smoking Status (Most current) and Tobacco Use (All prior to encounter date) This section includes the most current, and the historical, smoking and tobacco- related health factors from the [place] facility where the Encounter took place. Current Smoking Status This section includes the most current smoking, or tobacco-related health factor, from the [place] facility where the Encounter took place. Date/Time Current Smoking Status Comment [facility] it Feb 08, 2023 10:00 AM VA-TOBACCO FORMER USER [facility] [place] [facility] Tobacco Use History This section includes a history of the smoking, or tobacco-related health factors, that were collected on or before the date of the Encounter. The data comes from the [place] facility where the Encounter took place. Date/Time Smoking Status/Tobac co Use Comment Facility Feb 08, 2023 10:00 AM VA-TOBACCO QUIT 15 YRS OR MORE [facility] [place] [facility] Mar 06, 2022 02:30 PM VA-TOBACCO FORMER USER [facility] [place] [facility] Mar 06, 2022 02:30 PM VA-TOBACCO QUIT 15 YRS OR MORE [facility] [place] [facility] Apr 04, 2021 10:28 AM VA-TOBACCO NEVER USED [facility] [place] [facility] May 03, 2020 02:00 PM VA-TOBACCO NEVER USED [facility] [place] [facility] Feb 25, 2019 08:14 AM VA-TOBACCO FORMER USER [facility] [place] [facility] Feb 25, 2019 08:14 AM VA-TOBACCO QUIT 5 TO < 15 YRS [facility] [place] [facility] Apr 04, 2018 10:41 AM QUIT TOBACCO USE 1-7 YEARS AGO [facility] [place] [facility] Oct 28, 2017 10:18 AM QUIT TOBACCO USE 1-7 YEARS AGO [facility] [place] [facility] Jan 22, 2017 01:08 PM QUIT TOBACCO USE 1-7 YEARS AGO [facility] [place] [facility] Jul 18, 2016 01:34 PM QUIT TOBACCO USE 1-7 YEARS AGO [facility] [place] [facility] January 10, 2016 10:32 AM QUIT TOBACCO USE 1-7 YEARS AGO [facility] [place] [facility] Oct 13, 2015 11:05 AM QUIT TOBACCO USE 1-7 YEARS AGO [facility] [place] [facility] Oct 19, 2014 01:53 PM QUIT TOBACCO USE > 7 YEARS AGO [facility] [place] [facility] January 02, 2014 01:30 AM QUIT TOBACCO USE IN PAST YEAR [facility] [place] [facility] Jun 18, 2013 09:00 AM CURRENT SMOKER 6 cigarettes qd [facility] Jun 18, 2013 09:00 AM V1-PT DECLINES TOBACCO CESSATION MEDS [facility] Jun 18, 2013 09:00 AM V1-PT NOT INTERESTED IN QUIT TOBACCO USE [facility] [place] [facility] December 24, 2012 10:51 AM V1-PT DECLINES REF TO TOBACCO CESS PRGM IN [place]TR [place] [facility] December 24, 2012 10:51 AM V1-PT DECLINES TOBACCO CESSATION MEDS [facility] December 24, 2012 10:51 AM V1-PT THINKING ABOUT QUIT TOBACCO USE [facility] [place] [facility] Jul 15, 2012 10:19 AM QUIT TOBACCO USE IN PAST YEAR [facility] MICN [facility] Jan 25, 2012 05:02 PM QUIT TOBACCO USE IN PAST YEAR [facility] Sep 28, 2011 10:09 AM CURRENT SMOKER 5 cigarettes a day [facility] MICTRN [facility] Jun 15, 2011 02:23 PM V1-PT DECLINES REF TO TOBACCO CESS PRGM [facility] MICTRN [facility] Jun 15, 2011 02:23 PM V1-PT READY TO QUIT TOBACCO USE [facility] MICTRN [facility] Apr 13, 2011 10:31 AM V1-PT DECLINES REF TO TOBACCO CESS PRGM [facility] MICTRN [facility] Apr 13, 2011 10:31 AM V1-PT RECEIVES TOBACCO CESS MEDS OUTSIDE [facility] Apr 13, 2011 10:31 AM V1-PT THINKING ABOUT QUIT TOBACCO USE [facility] MICTRN [facility] Oct 16, 2010 08:52 AM QUIT TOBACCO USE IN PAST YEAR [facility] May 12, 2010 02:08 PM V1-PT DECLINES REF TO TOBACCO CESS PR[facility] May 12, 2010 02:08 PM V1-PT READY TO QUIT TOBACCO USE [facility] May 12, 2010 12:45 PM CURRENT SMOKER 3 cigarettes a day [facility] Encounter Notes: All associated encounter notes This section contains the clinical notes associated to the Encounter. Date/Time Encounter Note(s) Provider Source Oct 14, 2023 01:51 PM ADMINISTRATIVE NOT E: LOCAL TITLE: ADMINISTRATIVE NOTE STANDARD TITLE: ADMINISTRATIVE NOTE DATE OF NOTE: OCT 14, 2023@13:51 ENTRY DATE: OCT 14, 2023@13:51:20 AUTHOR: MYRON ENGLISH EXP COSIGNER: URGENCY: STATUS: COMPLETED ADMINISTRATIVE NOTE Has ADDENDA [facility] consult has been cancelled. Community provider below requesting updated consult with most recent PCP note and labs. [place] has been rescheduled to 12/09/23 at 11:00 Refer to [place] PCP/PACT to submit a new [facility] consult with: 12/09/23 at 11:00 office visit Provider: [facility] [id number] TAX ID [id number] Address: [address] [place] [address] [address] City: [place] State: [place] Zip: [address] [phone] Fax to SARIAH at [phone] New fx [phone] /jeana/ MYRON ENGLISH [employer] EM[employer]Y SERVICES MANAGER Signed: 10/14/2023 13:53 Receipt Acknowledged By: 10/15/2023 18:49 /es/ CLOVER CARMICHAEL [facility] [place],RN-BC 04/07/2024 10:34 /es/ CADEN FELIZ M.D. PHYSICIAN 10/14/2023 15:05 /es/ KIET FRANCIS, MSN, RN, CNL PRIMARY CARE TEAM NURSE 10/14/2023 ADDENDUM STATUS: COMPLETED A new GI-General consult placed and held for provider signature /jeana/ KIET FRANCIS, MSN, RN, CNL PRIMARY CARE TEAM NURSE Signed: 10/14/2023 15:06 MYRON ENGLISH [facility]
--- OUTSIDE RECORDS SUMMARY | 2024-08-04 16:53 | XMS_ITS | Encounter Summary ---
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 Name Role Phone CADEN FELIZ Primary Care [...] PLAN I Aug 19, 2019 PLAN I [id number] MEEK,SABINE ICEL PATIENT [employer] [facility] OPTIONS MEDICARE SUPPLEMEN MARCIA PLANM Y Aug 19, 2019 PLANMY [id number] [phone] MEEK,GR ICEL PATIENT [employer] OPTIONS MEDICARE SUPPLEMEN MARCIA AARP MEDIC ARE SUPPL Aug 19, 2019 PLAN MY [id number] MEEK,GR ICEL PATIENT A[employer] INS MEDICARE SUPPLEMEN MARCIA PLANM Y Aug 19, 2019 PLANMY [id number] [phone] MEEK,GR ICEL PATIENT AARP MED SUPP MEDICARE SUPPLEMEN MARCIA Jul 19, 2010 PLANMY [id number] [phone] MEEK,GR ICEL PATIENT MEDICARE (WNR) MEDICARE () PART B Aug 19, 2008 PART B [id number] MEEK,GR ICEL PATIENT MEDICARE (WNR) MEDICARE () PART B Aug 19, 2008 PART B [id number] [phone] MEEK,GR ICEL PATIENT MEDICARE (WNR) MEDICARE () PART B Aug 19, 2008 PART B [id number] MEEK,GR ICEL PATIENT MEDICARE (WNR) MEDICARE () PART B Aug 19, 2008 PART B [id number] MEEK,GR ICEL PATIENT MEDICARE (WNR) MEDICARE () PART B Aug 19, 2008 PART B [id number] [phone] MEEK,GR ICEL PATIENT MEDICARE (WNR) MEDICARE () PART B Aug 19, 2008 PART B [id number] MEEK,GR ICEL PATIENT MEDICARE (WNR) MEDICARE () PART B Aug 19, 2008 PART B [id number] MEEK,GR ICEL PATIENT MEDICARE (WNR) MEDICARE () PART A December 18, 2003 PART A [id number] MEEK,GR ICEL PATIENT MEDICARE (WNR) MEDICARE () PART A December 18, 2003 PART A [id number] MEEK,GR ICEL PATIENT MEDICARE (WNR) MEDICARE () PART A December 18, 2003 PART A [id number] MEEK,GR ICEL PATIENT MEDICARE (WNR) MEDICARE () PART A December 18, 2003 PART A [id number] [phone] MEEK,GR ICEL PATIENT MEDICARE (WNR) MEDICARE () PART A December 18, 2003 PART A [id number] MEEK,GR ICEL PATIENT MEDICARE (WNR) MEDICARE () PART A December 18, 2003 PART A [id number] SABINE MEEK PATIENT MEDICARE (WNR) MEDICARE (M) PART A December 18, 2003 PART A [id number] SABINE MEEK PATIENT Selected Encounter This section includes the information on record at [place] for the Encounter. Date/Time Encounter Type Encounter Description Reason Pro vider Source Oct 17, 2023 10:00 AM Outpatient Encounter COMMUNITY CARE CONSULT IHE Encounter [...] Appointment Type Appointme nt Facility Name Oct 21, 2023 09:00 AM [facility] [place] Oct 23, 2023 09:00 AM [facility] [place] Oct 24, 2023 09:00 AM AMBULATORY - REHAB MEDICIN E [facility] [place] [facility] Oct 28, 2023 09:00 AM [facility] [place] Oct 28, 2023 11:00 AM [facility] [place] [facility] Oct 30, 2023 09:00 AM [facility] [place] [facility] Nov 08, 2023 08:00 AM [facility] [place] [facility] Nov 14, 2023 09:00 AM AMBULATORY - REHAB MEDICIN E [facility] [place] [facility] Nov 15, 2023 09:00 AM [facility] [place] [facility] Nov 15, 2023 09:30 AM [facility] [place] [facility] Nov 18, 2023 11:00 AM [facility] [place] Nov 25, 2023 10:00 AM [facility] Nov 27, 2023 09:30 AM [facility] Nov 28, 2023 09:00 AM [facility] Nov 28, 2023 10:00 AM [facility] PS[facility]CHIATRY [facility] Dec 05, 2023 09:00 AM AMBULATORY - [facility]ICIN [facility] Dec 05, 2023 09:30 AM [facility] Dec 09, 2023 09:30 AM [facility] Dec 09, 2023 11:30 AM [facility] Dec 12, 2023 11:30 AM AMBULATORY - NONE [facility] [place] Lab Results: +/- 30 days of the encounter This section includes the Chemistry and Hematology Lab Results on record with [place] for the patient. Radiology Reports and Pathology Reports are provided separately, in subsequent sections. Lab Results This section contains the Chemistry/Hematology Results that were resulted 30 days before or 30 daysafter the date of the Encounter. Date/Time Source Result Type Result - Unit Interpretation Reference Range Comment Nov 15, 2023 10:10 AM [place] [facility] [place] VITAMIN B12 Specimen Type: SERUM No comment entered. Ordering Provider: WALE FELIZ Report Released Date/Time: Nov 15, 2023 09:56 AM Reporting Lab: [place] [facility] [place] [facility] [address] [facility] [address] Performing Lab: [place] [facility] [place] [facility] [address] [facility] [address] VITAMIN B12 806 pg/mL 200-900 Nov 15, 2023 10:10 AM [place] [facility] [place] [facility] MICROALBUMIN CREATININE RATIO PANEL Specimen Type: URINE No comment entered. Ordering Provider: WALE FELIZ Report Released Date/Time: Nov 15, 2023 09:56 AM Reporting Lab: [place] [facility] [place] [address] [address] Performing Lab: [facility] [address] [facility] [address] MICROALBUMIN/C REATININE RATIO canc mg/g 0-29.9 MICROALBUMIN,Q UANTITATIVE < 0.5 mg/dL RR UNAVAIL CREATININE URINE 34.74 mg/dL Nov 15, 2023 10:10 AM [facility] VITAMIN D (25-OH) Specimen Type: SERUM No comment entered. Ordering Provider: WALE FELIZ Report Released Date/Time: Nov 15, 2023 09:56 AM Reporting Lab: [address] [address] Performing Lab: [address] [address] VITAMIN D (25-OH) 54 ng/mL H 20-50 Nov 15, 2023 10:10 AM [facility] HEMOGLOBIN A1C PANEL Specimen Type: BLOOD No comment entered. Ordering Provider: WALE FELIZ Report Released Date/Time: Nov 15, 2023 09:56 AM Reporting Lab: [address] [address] Performing Lab: [address] [address] HEMOGLOBIN A1C 6.1 H 4.0-5.6 Nov 15, 2023 10:10 AM [facility] BASIC METABOLIC PANEL (non-fasting) Specimen Type: SERUM No comment entered. Ordering Provider: WALE FELIZ Report Released Date/Time: Nov 15, 2023 09:56 AM Reporting Lab: [address] [address] Performing Lab: [address] [address] UREA NITROGEN 6 mg/dL L 7-25 GLUCOSE 168 mg/dL H 65-100 SODIUM 134 mmol/L L 135-145 POTASSIUM 4.3 mmol/L 3.5-5.0 CHLORIDE 99 mmol/L L 100-110 CO2 25 meq/L 20-30 CREATININE, Serum 0.66 mg/dL 0.50-1.40 eGFR(CKD-EPI 2020) >90 mL/min >60 Oct 28, 2023 09:26 AM [place] [facility] [place] [facility] GLUCOSE, Fingerstick Specimen Type: BLOOD Comment: For GLU FinTest performed by: Linda Vee For GLU Fin Meter #: [id number] Ordering Provider: WALE FELIZ Report Released Date/Time: Oct 28, 2023 10:19 AM Reporting Lab: [place] [facility] [place] [facility] [address] [facility] [address] Performing Lab: [place] [facility] [address] [facility] [address] GLUCOSE, Fingerstick 178 mg/dL H 65-100 Social [...] took place. Date/Time Current Smoking Status Comment [facility] Feb 08, 2023 10:00 AM [facility] Tobacco Use History This section includes a history of the smoking, or tobacco-related health factors, that were collected on or before the date of the Encounter. The data comes from the [place] facility where the Encounter took place. Date/Time Smoking Status/Tobac co Use Comment [facility] Feb 08, 2023 10:00 AM VA-TOBACCO QUIT 15 YRS OR MORE [place] [facility] [place] [facility] Mar 06, 2022 02:30 PM VA-TOBACCO FORMER USER [facility] [place] Mar 06, 2022 02:30 PM VA-TOBACCO QUIT 15 YRS OR MORE [facility] [place] Apr 04, 2021 10:28 AM VA-TOBACCO NEVER USED [facility] [place] [facility] May 03, 2020 02:00 PM VA-TOBACCO NEVER USED [facility] [place] [facility] Feb 25, 2019 08:14 AM VA-TOBACCO FORMER USER [facility] [place] [facility] Feb 25, 2019 08:14 AM VA-TOBACCO QUIT 5 TO < 15 YRS [facility] [place] [facility] Apr 04, 2018 10:41 AM QUIT TOBACCO USE 1-7 YEARS AGO [place] [facility] [place] [facility] Oct 28, 2017 10:18 AM QUIT TOBACCO USE 1-7 YEARS AGO [place] [facility] [place] [facility] Jan 22, 2017 01:08 PM QUIT TOBACCO USE 1-7 YEARS AGO [place] [facility] [place] [facility] Jul 18, 2016 01:34 PM QUIT TOBACCO USE 1-7 YEARS AGO [place] [facility] [place] [facility] January 10, 2016 10:32 AM QUIT TOBACCO USE 1-7 YEARS AGO [place] [facility] [place] [facility] Oct 13, 2015 11:05 AM QUIT TOBACCO USE 1-7 YEARS AGO [place] [facility] [place] [facility] Oct 19, 2014 01:53 PM QUIT TOBACCO USE > 7 YEARS AGO [place] [facility] [place] [facility] January 02, 2014 01:30 AM QUIT TOBACCO USE IN PAST YEAR [place] [facility] [place] [facility] Jun 18, 2013 09:00 AM CURRENT SMOKER 6 cigarettes qd [facility] [place] [facility] Jun 18, 2013 09:00 AM V1-PT DECLINES TOBACCO CESSATION [facility] [place] Jun 18, 2013 09:00 AM V1-PT NOT INTERESTED IN QUIT TOBACCO [facility] [place] December 24, 2012 10:51 AM V1-PT DECLINES REF TO TOBACCO CESS [facility] [place] [facility] [place] [facility] December 24, 2012 10:51 AM V1-PT DECLINES TOBACCO CESSATION MEDS [place] [facility] [place] [facility] December 24, 2012 10:51 AM V1-PT THINKING ABOUT QUIT [facility]AC[facility] [place] [facility] Jul 15, 2012 10:19 AM QUIT TOBACCO USE IN PAST YEAR [place] [facility] [place] [facility] Jan 25, 2012 05:02 PM QUIT TOBACCO USE [facility]ST [facility] [place] [facility] Sep 28, 2011 10:09 AM CURRENT SMOKER 5 cigarettes a day [facility] [place] [facility] Jun 15, 2011 02:23 PM V[facility] Jun 15, 2011 02:23 PM V1-PT READY TO QUIT TOBACCO USE [facility] Apr 13, 2011 10:31 AM V1-PT DECLINES REF TO TOBACCO CESS PR[facility] Apr 13, 2011 10:31 AM V1-PT RECEIVES TOBACCO CESS MEDS OUTSIDE [facility] Apr 13, 2011 10:31 AM V1-PT THINKING ABOUT QUIT TOBACCO USE [facility] Oct 16, 2010 08:52 AM QUIT TOBACCO USE IN PAST YEAR [facility] May 12, 2010 02:08 PM V1-PT [facility] May 12, 2010 02:08 PM V1-PT READY TO QUIT TOBACCO USE [facility] May 12, 2010 12:45 PM CURRENT SMOKER 3 cigarettes a day [facility] Radiology Reports: +/- 30 days of the [...] the Encounter. The data comes from all [facility]. Date/Time Radiology Report Provider Source Nov 15, 2023 10:22 AM ELBOW 3 OR MORE VIEWS(LEFT): PEBBLES MEEK [id number] -[id number] F Exm Date: NOV 15, 2023@10:22 Req Phys: CADEN FELIZ Loc: CWM/NO/PACT 6 WH (Req'g Loc) Img Loc: [facility] 1 Service: Unknown (Case [id number] COMPLETE) ELBOW 3 OR MORE VIEWS(LEFT) (RAD Detailed) CPT:03524 Reason for Study: pain and swelling left elbow Clinical History: 73yo woman with h/o traumatic injury in 20s, Report Status: Verified Date Reported: NOV 15, 2023 Date Verified: NOV 15, 2023 Signals Intelligence Analyst E-Sig:/ES/NEMO RODRIGUEZ JR Report: Study: AP, [...] Primary Interpreting Staff: NEMO RODRIGUEZ JR, Radiologist (Signals Intelligence Analyst) /NEMO WEISS JR [facility] Encounter Notes: All associated encounter notes This section contains the clinical notes associated to the Encounter. Date/Time Encounter Note(s) Provider Source Oct 17, 2023 10:00 AM ADMINISTRATIVE NOTE: LOCAL TITLE: ADMINISTRATIVE NOTE STANDARD TITLE: ADMINISTRATIVE NOTE DATE OF NOTE: OCT 17, 2023@10:00 ENTRY DATE: OCT 17, 2023@10:00:19 AUTHOR: MINERVA KERR EXP COSIGNER: URGENCY: STATUS: COMPLETED ADMINISTRATIVE NOTE Has ADDENDA [place] stopped by the customer care suite because her acupuncture visits have run out. Please enter new acupuncture consult if appropriate. Justina Collier [address] [place] [address] PH: [phone] /jeana/ MINERVA KERR ADVANCED WORKDAY DIRECTOR Signed: 10/17/2023 10:01 Receipt Acknowledged By: 04/07/2024 10:34 /es/ CADEN FELIZ M.D. PHYSICIAN 10/18/2023 14:47 /es/ KIET FRANCIS, YING, RN, CNL PRIMARY CARE TEAM NURSE 10/21/2023 09:05 /es/ Maricarmen De La Garza copy director Staff Nurse 10/18/2023 ADDENDUM STATUS: COMPLETED A new CC Acupuncture consult placed and held for provider signature /jeana/ YING PIEDRA, RN, CNL PRIMARY CARE TEAM NURSE Signed: 10/18/2023 14:47 MINERVA KERR [facility]
--- OUTSIDE RECORDS SUMMARY | 2024-08-04 16:54 | XMS_ITS | Encounter Summary ---
Author Name [facility] Organization [facility] Address [address] [place] [address] Care Team Providers [employer] Name Role Phone CADEN FELIZ Primary Care [...] PLAN I Aug 19, 2019 PLAN I [id number] MEEK,GR ICEL PATIENT [employer] OPTIONS MEDICARE SUPPLEMEN MARCIA PLANM Y Aug 19, 2019 PLANMY [id number] MEEK,GR ICEL PATIENT [employer] OPTIONS MEDICARE SUPPLEMEN MARCIA AARP MEDIC ARE SUPPL Aug 19, 2019 PLAN MY [id number] [phone] MEEK,GR ICEL PATIENT AARP INS MEDICARE SUPPLEMEN MARCIA PLANM Y Aug 19, 2019 PLANMY [id number] [phone] MEEK,GR ICEL PATIENT AARP MED SUPP MEDICARE SUPPLEMEN MARCIA Jul 19, 2010 PLANMY [id number] MEEK,GR ICEL PATIENT MEDICARE (WNR) MEDICARE () PART B Aug 19, 2008 PART B [id number] MEEK,GR ICEL PATIENT MEDICARE (WNR) MEDICARE () PART B Aug 19, 2008 PART B [id number] MEEK,GR ICEL PATIENT MEDICARE (WNR) MEDICARE () PART B Aug 19, 2008 PART B [id number] MEEK,GR ICEL PATIENT MEDICARE (WNR) MEDICARE () PART B Aug 19, 2008 PART B [id number] [phone] MEEK,GR ICEL PATIENT MEDICARE (WNR) MEDICARE () PART B Aug 19, 2008 PART B [id number] [phone] MEEK,GR ICEL PATIENT MEDICARE (WNR) MEDICARE () PART B Aug 19, 2008 PART B [id number] [phone] MEEK,GR ICEL PATIENT MEDICARE (WNR) MEDICARE () PART B Aug 19, 2008 PART B [id number] MEEK,GR ICEL PATIENT MEDICARE (WNR) MEDICARE () PART A December 18, 2003 PART A [id number] [phone] MEEK,GR ICEL PATIENT MEDICARE (WNR) MEDICARE () PART A December 18, 2003 PART A [id number] [phone] MEEK,GR ICEL PATIENT MEDICARE (WNR) MEDICARE () PART A December 18, 2003 PART A [id number] [phone] MEEK,GR ICEL PATIENT MEDICARE (WNR) MEDICARE () PART A December 18, 2003 PART A [id number] [phone] MEEK,GR ICEL PATIENT MEDICARE (WNR) MEDICARE () PART A December 18, 2003 PART A [id number] MEEK,GR ICEL PATIENT MEDICARE (WNR) MEDICARE () PART A December 18, 2003 PART A [id number] SABINE MEEK ICEJacky PATIENT MEDICARE (WNR) MEDICARE (M) PART A December 18, 2003 PART A [id number] [phone] SABINE MEEK PATIENT Selected Encounter This section includes the information on record at OR for the Encounter. Date/Time Encounter Type Encounter Description Reason Provider Source Oct 17, 2023 09:00 AM THERAPEUTIC EXERCISES PHYSICAL THERAPY ICD-10-CM S33.6XXS Sprain of sacroiliac joint, sequregulo LOW,PHILIPPE WILLIS IHE Encounter Template Text not used by OR Assessments - Encounter Diagnoses This section includes the primary and secondary diagnoses documented for the Encounter. Date/Time Primary/Secondary Diagnosis Diagnosis Name Provider Source Oct 18, 2023 03:23 PM PRIMARY Sprain of sacroiliac joint, [facility]ALLY [facility] [place] [facility] Plan of Treatment: Future Appointments (+ 6 months) and Future Tests (+/- 45 days) The Plan of Treatment section includes future care activities for the [facility] This section includes future appointments [...] 21, 2023 09:00 AM AMBULATORY - MEDICINE [facility] [place] [facility] Oct 23, 2023 09:00 AM AMBULATORY - MEDICINE [facility] C [facility] [place] [facility] Oct 24, 2023 09:00 AM AMBULATORY - REHAB MEDICIN E [place] [facility] [place] [facility] Oct 28, 2023 09:00 AM AMBULATORY - MEDICINE OR C [facility] [place] [facility] Oct 28, 2023 11:00 AM AMBULATORY - MEDICINE OR C [facility] [place] [facility] Oct 30, 2023 09:00 AM AMBULATORY - MEDICINE OR C [facility] [place] [facility] Nov 08, 2023 08:00 AM AMBULATORY - MEDICINE OR C [facility] [place] [facility] Nov 14, 2023 09:00 AM AMBULATORY - REHAB MEDICIN E [facility] [place] [facility] Nov 15, 2023 09:00 AM AM[facility]ULATORY [facility]ICINE [facility] Nov 15, 2023 09:30 AM AMBULATORY - MEDICINE [facility] Nov 18, 2023 11:00 AM AMBULATORY - [...] - MEDICINE [facility] [place] [facility] Dec 09, 2023 11:30 AM AMBULATORY - MEDICINE [facility] [place] [facility] Dec 12, 2023 11:30 AM AMBULATORY - NONE [facility] [place] [facility] Lab Results: +/- 30 days of the encounter This section includes the Chemistry and Hematology Lab Results on record with OR for the patient. Radiology Reports and Pathology Reports are provided separately, in subsequent sections. Lab Results This section contains the Chemistry/Hematology Results that were resulted 30 days before or 30 daysafter the date of the Encounter. Date/Time Source Result Type Result - Unit Interpretation Reference Range Comment Nov 15, 2023 10:10 AM [place] [facility] [place] [facility] VITAMIN B12 Specimen Type: SERUM No comment entered. Ordering Provider: WALE FELIZ Report Released Date/Time: Nov 15, 2023 09:56 AM Reporting Lab: [place] [facility] [place] [facility] [address] [address] Performing Lab: [facility] [address] [address] VITAMIN B12 806 pg/mL 200-900 Nov 15, 2023 10:10 AM [facility] MICROALBUMIN CREATININE RATIO PANEL Specimen Type: URINE No comment entered. Ordering Provider: WALE FELIZ Report Released Date/Time: Nov 15, 2023 09:56 AM Reporting Lab: [facility] [address] [address] Performing Lab: [facility] [address] [address] [address] MICROALBUMIN/C REATININE RATIO canc mg/g 0-29.9 MICROALBUMIN,Q UANTITATIVE < 0.5 mg/dL RR UNAVAIL CREATININE URINE 34.74 mg/dL Nov 15, 2023 10:10 AM [facility] HEMOGLOBIN A1C PANEL Specimen Type: BLOOD No comment entered. Ordering Provider: WALE FELIZ Report Released Date/Time: Nov 15, 2023 09:56 AM Reporting Lab: [address] [address] Performing Lab: [address] [address] HEMOGLOBIN A1C 6.1 H 4.0-5.6 Nov 15, 2023 10:10 AM [facility] VITAMIN D (25-OH) Specimen Type: SERUM No comment entered. Ordering Provider: WALE FELIZ Report Released Date/Time: Nov 15, 2023 09:56 AM Reporting Lab: [address] [address] Performing Lab: [address] [address] VITAMIN D (25-OH) 54 ng/mL H 20-50 Nov 15, 2023 10:10 AM [facility] BASIC METABOLIC PANEL (non-fasting) Specimen Type: SERUM No comment entered. Ordering Provider: WALE FELIZ Report Released Date/Time: Nov 15, 2023 09:56 AM Reporting Lab: [address] [address] Performing Lab: [facility] [address] [facility] [address] UREA NITROGEN 6 mg/dL L 7-25 GLUCOSE 168 mg/dL H 65-100 SODIUM 134 mmol/L L 135-145 POTASSIUM 4.3 mmol/L 3.5-5.0 CHLORIDE 99 mmol/L L 100-110 CO2 25 meq/L 20-30 CREATININE, Serum 0.66 mg/dL 0.50-1.40 eGFR(CKD-EPI 2020) >90 mL/min >60 Oct 28, 2023 09:26 AM [facility] GLUCOSE, Fingerstick Specimen Type: BLOOD Comment: For GLU FinTest performed by: Linda Vee For GLU Fin Meter #: [id number] Ordering Provider: WALE FELIZ Report Released Date/Time: Oct 28, 2023 10:19 AM Reporting Lab: [facility] [address] [facility] [address] Performing Lab: [address] [address] GLUCOSE, Fingerstick 178 mg/dL H 65-100 Social [...] place. Date/Time Current Smoking Status Comment Rosamaria williamson Feb 08, 2023 10:00 AM OR-TOBACCO FORMER USER [facility] Tobacco Use History This section includes a history of the smoking, or tobacco-related health factors, that were collected on or before the date of the Encounter. The data comes from the OR facility where the Encounter took place. Date/Time Smoking Status/Tobac co Use Comment [facility] Feb 08, 2023 10:00 AM OR-TOBACCO QUIT 15 YRS OR MORE [facility] Mar 06, 2022 02:30 PM VA-TOBACCO FORMER USER [facility] Mar 06, 2022 02:30 PM OR-TOBACCO QUIT 15 YRS OR MORE [facility] [place] [facility] Apr 04, 2021 10:28 AM VA-TOBACCO NEVER USED OR [facility] [place] [facility] May 03, 2020 02:00 PM VA-TOBACCO NEVER USED [facility] [place] [facility] Feb 25, 2019 08:14 AM VA-TOBACCO FORMER USER [facility] [place] [facility] Feb 25, 2019 08:14 AM VA-TOBACCO QUIT 5 TO < 15 YRS [facility] [place] [facility] Apr 04, 2018 10:41 AM QUIT TOBACCO USE 1-7 YEARS AGO [facility] [place] [facility] Oct 28, 2017 10:18 AM QUIT TOBACCO USE 1-7 YEARS AGO [facility] [place] [facility] Jan 22, 2017 01:08 PM QUIT TOBACCO USE 1-7 YEARS AGO [facility] [place] [facility] Jul 18, 2016 01:34 PM QUIT TOBACCO USE 1-7 YEARS AGO [facility] [place] [facility] January 10, 2016 10:32 AM QUIT TOBACCO USE 1-7 YEARS AGO [facility] [place] [facility] Oct 13, 2015 11:05 AM QUIT TOBACCO USE 1-7 YEARS AGO [facility] [place] [facility] Oct 19, 2014 01:53 PM QUIT TOBACCO USE > 7 YEARS AGO [facility] [place] [facility] January 02, 2014 01:30 AM QUIT TOBACCO USE IN PAST YEAR [facility] [place] [facility] Jun 18, 2013 09:00 AM CURRENT SMOKER 6 cigarettes qd [facility] [place] [facility] Jun 18, 2013 09:00 AM V1-PT DECLINES TOBACCO CESSATION MEDS [facility] [place] [facility] Jun 18, 2013 09:00 AM V1-PT NOT INTERESTED IN QUIT TOBACCO USE [facility] [place] [facility] December 24, 2012 10:51 AM V1-PT DECLINES REF TO TOBACCO CESS PRGM [facility] [place] [facility] December 24, 2012 10:51 AM V1-PT DECLINES TOBACCO CESSATION MEDS [facility] [place] [facility] December 24, 2012 10:51 AM V1-PT THINKING ABOUT QUIT TOBACCO USE [facility] Jul 15, 2012 10:19 AM QUIT TOBACCO USE IN PAST YEAR [facility] Jan 25, 2012 05:02 PM QUIT TOBACCO USE IN PAST YEAR [facility] Sep 28, 2011 10:09 AM CURRENT SMOKER 5 cigarettes a day [facility] Jun 15, 2011 02:23 PM V1-PT DECLINES REF TO TOBACCO CESS PRGM [facility] Jun 15, 2011 02:23 PM V1-PT READY TO QUIT TOBACCO USE [facility] Apr 13, 2011 10:31 AM V1-PT DECLINES REF TO TOBACCO CESS PRGM [facility] Apr 13, 2011 10:31 AM V1-PT RECEIVES TOBACCO CESS MEDS OUTSIDE [facility] Apr 13, 2011 10:31 AM V1-PT THINKING ABOUT QUIT TOBACCO USE [facility] Oct 16, 2010 08:52 AM QUIT TOBACCO USE IN PAST YEAR [facility] May 12, 2010 02:08 PM V1-PT DECLINES REF TO TOBACCO CESS PRGM [facility] May 12, 2010 02:08 PM V1-PT READY TO QUIT TOBACCO USE [facility] May 12, 2010 12:45 PM CURRENT SMOKER 3 cigarettes a day [facility] Radiology Reports: +/- 30 days of the [...] the Encounter. The data comes from all [facility] facilities. Date/Time Radiology Report Provider Source Nov 15, 2023 10:22 AM ELBOW 3 OR MORE VIEWS(LEFT): PEBBLES MEEK [id number] -[id number] F Exm Date: NOV 15, 2023@10:22 Req Phys: ELVIAARASHCADEN Stephen Loc: CWM/NO/PACT 6 WH (Req'g Loc) Img Loc: [facility]/BUILDING 1 Service: Unknown (Case [id number] COMPLETE) ELBOW 3 OR MORE VIEWS(LEFT) (RAD Detailed) CPT:74315 Reason for Study: pain and swelling left elbow Clinical History: 73yo woman with h/o traumatic injury in 20s, Report Status: Verified Date Reported: NOV 15, 2023 Date Verified: NOV 15, 2023 [place] E-Sig:/ES/NEMO RODRIGUEZ JR Report: Study: AP, lateral, [...] Primary Interpreting Staff: NEMO RODRIGUEZ JR, Radiologist ([place]) /NEMO WEISS JR [facility] Encounter Notes: All associated encounter notes This section contains the clinical notes associated to the Encounter. Date/Time Encounter Note(s) Provider Source Oct 17, 2023 01:00 PM PHYSICAL THERAPY N OTE: LOCAL TITLE: PHYSICAL THERAPY STANDARD TITLE: PHYSICAL THERAPY NOTE DATE OF NOTE: OCT 17, 2023@13:00 ENTRY DATE: OCT 18, 2023@15:18:21 AUTHOR: SALLY LOW COSIGNER: URGENCY: STATUS: COMPLETED Initial Evaluation date: 09/26/23 Progress Note Date: n/a Treatment #: 3 Treatment time: 30min Diagnosis: sprain SI joint Provider: Isra PT Treatment Precautions: n/a SUBJECTIVE: It felt good for a couple days after I left here, I think everything is working the chiro, the acupuncture, the PT it's all helping the pain is subsiding OBJECTIVE: Pain to L hip/LE still radicular but rated lower as 2-4/10 THERAPEUTIC EXERCISE: MINUTES: 20 - nustep x8min L1 - figure 4 stretch x3 - SLR stretch with strap x3 - modified plank on plinth x5 - L side plank on plinth x5 - PN x5 review needed pt was performing a bridge - PN with alternating hip flex 2x10 MANUAL THERAPY: MINUTES: 10 - myofascial release/STM to L ITB, glut med/max and slightly to piriformis in s/l SELF CARE/EDUCATION: MINUTES:-- - updated HEP as below Access Code: [email or web address] URL: [email or web address] Date: 09/27/2023 Prepared by: [facility] Patient education was provided for all aspects of care during this clinical encounter. ASSESSMENT: Tolerated treatment well, mild elevation in pain following treatment today ?d/t core stab strengthening? encouraged regular stretching for remainder of the day/weekend, pain rated as 5/10 intensity overall reducing PLAN: continue per plan of care, continue per plan of care, order full length insert for her shoe, size 8 /es/ SALLY LOW PT PHYSICAL THERAPIST Signed: 10/18/2023 15:23 SALLY LOW [facility]
--- OUTSIDE RECORDS SUMMARY | 2024-08-04 16:54 | XMS_ITS ---
Author Name [facility] [facility] [place] Address [address] [place] [address] Care Team Providers Care Trailer Steerer Name Role Phone CADEN FELIZ Primary Care [...] PLAN I Aug 19, 2019 PLAN I [id number] MEEK,GR ICEL PATIENT [employer] OPTIONS MEDICARE SUPPLEMEN MARCIA PLANM Y Aug 19, 2019 PLANMY [id number] MEEK,GR ICEL PATIENT [employer] OPTIONS MEDICARE SUPPLEMEN MARCIA AARP MEDIC ARE SUPPL Aug 19, 2019 PLAN MY [id number] MEEK,GR ICEL PATIENT AARP INS MEDICARE SUPPLEMEN MARCIA PLANM Y Aug 19, 2019 PLANMY [id number] MEEK,GR ICEL PATIENT AARP MED SUPP MEDICARE SUPPLEMEN MARCIA Jul 19, 2010 [facility] [id number] [phone] MEEK,GR ICEL PATIENT MEDICARE (WNR) MEDICARE () PART B Aug 19, 2008 PART B [id number] [phone] MEEK,GR ICEL PATIENT MEDICARE (WNR) MEDICARE () PART B Aug 19, 2008 PART B [id number] MEEK,GR ICEL PATIENT MEDICARE (WNR) MEDICARE () PART B Aug 19, 2008 PART B [id number] MEEK,GR ICEL PATIENT MEDICARE (WNR) MEDICARE () PART B Aug 19, 2008 PART B [id number] [phone] MEEK,GR ICEL PATIENT MEDICARE (WNR) MEDICARE () PART B Aug 19, 2008 PART B [id number] MEEK,GR ICEL PATIENT MEDICARE (WNR) MEDICARE () PART B Aug 19, 2008 PART B [id number] MEEK,GR ICEL PATIENT MEDICARE (WNR) MEDICARE () PART B Aug 19, 2008 PART B [id number] MEEK,GR ICEL PATIENT MEDICARE (WNR) MEDICARE () PART A December 18, 2003 PART A [id number] MEEK,GR ICEL PATIENT MEDICARE (WNR) MEDICARE () PART A December 18, 2003 PART A [id number] MEEK,GR ICEL PATIENT MEDICARE (WNR) MEDICARE () PART A December 18, 2003 PART A [id number] [phone] MEEK,GR ICEL PATIENT MEDICARE (WNR) MEDICARE () PART A December 18, 2003 PART A [id number] MEEK,GR ICEL PATIENT MEDICARE (WNR) MEDICARE () PART A December 18, 2003 PART A [id number] MEEK,GR ICEL PATIENT MEDICARE (WNR) MEDICARE () PART A December 18, 2003 PART A [id number] SABINE MEEK PATIENT MEDICARE (WNR) MEDICARE (M) PART A December 18, 2003 PART A [id number] SABINE MEEK PATIENT Selected Encounter This section includes the information on record at [place] for the Encounter. Date/Time Encounter Type Encounter Description Reason Provider Source Oct 21, 2023 09:00 AM MANUAL THERAPY 1/> [employer] ICD-10-CM M54.59 Other low back pain MARIAN TREVIÑO Darshan Encounter Template Text not used by [place] Assessments - Encounter Diagnoses This section includes the primary and secondary diagnoses documented for the Encounter. Date/Time Primary/Secondary Diagnosis Diagnosis Name Provider Source Oct 21, 2023 09:26 AM PRIMARY Other low back pain MARIAN TREVIÑO [place] [facility] Plan of Treatment: Future Appointments (+ 6 months) and Future Tests (+/- 45 days) The Plan of Treatment section includes future care activities for the patient from all [place] treatmentfacilities. This section includes future appointments and future orders which are active, pending or scheduled. Future Appointments This section includes appointments that were scheduled to occur 6 months from the date of the Encounter, up to a maximum of 20 appointments. The data comes from all [place] treatment facilities. Appointment Date/Time Appointment Type Appointme nt Facility Name Oct 23, 2023 09:00 AM AMBULATORY - MEDICINE [place] [facility] Oct 24, 2023 09:00 AM AMBULATORY - REHAB MEDICIN E [place] [facility] Oct 28, 2023 09:00 AM AMBULATORY - MEDICINE [place] [facility] Oct 28, 2023 11:00 AM AMBULATORY - MEDICINE [place] [facility] Oct 30, 2023 09:00 AM AMBULATORY - MEDICINE [place] [facility] Nov 08, 2023 08:00 AM AMBULATORY - MEDICINE [facility] Nov 14, 2023 09:00 AM AMBULATORY - REHAB MEDICIN E [facility] Nov 15, 2023 09:00 AM AMBULATORY - MEDICINE [place] [facility] Nov 15, 2023 09:30 AM AMBULATORY - MEDICINE [facility] Nov 18, 2023 11:00 AM AMBULATORY - [...] - MEDICINE [facility] Dec 09, 2023 11:30 AM AMBULATORY - MEDICINE [facility] Dec 12, 2023 11:30 AM AMBULATORY - NONE [facility] Dec 16, 2023 01:00 PM AMBULATORY - PSYCHIATRY [facility] Lab Results: +/- 30 days of the encounter This section includes the Chemistry and Hematology Lab Results on record with [place] for the patient. Radiology Reports and Pathology Reports are provided separately, in subsequent sections. Lab Results This section contains the Chemistry/Hematology Results that were resulted 30 days before or 30 daysafter the date of the Encounter. Date/Time Source Result Type Result - Unit Interpretation Reference Range Comment Nov 15, 2023 10:10 AM [place] [facility] VITAMIN B12 Specimen Type: SERUM No comment entered. Ordering Provider: WALE FELIZ Report Released Date/Time: Nov 15, 2023 09:56 AM Reporting Lab: [place] [facility] [address] [facility] [address] Performing Lab: [facility] [address] [address] VITAMIN B12 806 pg/mL 200-900 Nov 15, 2023 10:10 AM [facility] MICROALBUMIN CREATININE RATIO PANEL Specimen Type: URINE No comment entered. Ordering Provider: WALE FELIZ Report Released Date/Time: Nov 15, 2023 09:56 AM Reporting Lab: [facility] [address] [facility] [address] Performing Lab: [address] [address] MICROALBUMIN/C REATININE RATIO canc mg/g 0-29.9 MICROALBUMIN,Q UANTITATIVE < 0.5 mg/dL RR UNAVAIL CREATININE URINE 34.74 mg/dL Nov 15, 2023 10:10 AM [facility] HEMOGLOBIN A1C PANEL Specimen Type: BLOOD No comment entered. Ordering Provider: WALE FELIZ Report Released Date/Time: Nov 15, 2023 09:56 AM Reporting Lab: [address] [address] Performing Lab: [address] [address] HEMOGLOBIN A1C 6.1 H 4.0-5.6 Nov 15, 2023 10:10 AM [facility] VITAMIN D (25-OH) Specimen Type: SERUM No comment entered. Ordering Provider: WALE FELIZ Report Released Date/Time: Nov 15, 2023 09:56 AM Reporting Lab: [address] [address] Performing Lab: [address] [address] VITAMIN D (25-OH) 54 ng/mL H 20-50 Nov 15, 2023 10:10 AM [facility] BASIC METABOLIC PANEL (non-fasting) Specimen Type: SERUM No comment entered. Ordering Provider: WALE FELIZ Report Released Date/Time: Nov 15, 2023 09:56 AM Reporting Lab: [address] [address] Performing Lab: [address] [place] [address] UREA NITROGEN 6 mg/dL L 7-25 GLUCOSE 168 mg/dL H 65-100 SODIUM 134 mmol/L L 135-145 POTASSIUM 4.3 mmol/L 3.5-5.0 CHLORIDE 99 mmol/L L 100-110 CO2 25 meq/L 20-30 CREATININE, Serum 0.66 mg/dL 0.50-1.40 eGFR(CKD-EPI 2020) >90 mL/min >60 Oct 28, 2023 09:26 AM [facility] GLUCOSE, Fingerstick Specimen Type: BLOOD Comment: For GLU FinTest performed by: Linda Vee For GLU Fin Meter #: [id number] Ordering Provider: WALE FELIZ Report Released Date/Time: Oct 28, 2023 10:19 AM Reporting Lab: [facility] [address] [facility] [address] Performing Lab: [address] [address] GLUCOSE, Fingerstick 178 mg/dL H 65-100 Social History: Smoking Status (Most current) and Tobacco Use (All prior to encounter date) This section includes the most current, and the historical, smoking and tobacco- related health factors from the [place] facility where the Encounter took place. Current Smoking Status This section includes the most current smoking, or tobacco-related health factor, from the [place] facility where the Encounter took place. Date/Time Current Smoking Status Comment [facility] Feb 08, 2023 10:00 AM [place]-TOBACCO FORMER USER [facility] Tobacco Use History This section includes a history of the smoking, or tobacco-related health factors, that were collected on or before the date of the Encounter. The data comes from the [place] facility where the Encounter took place. Date/Time Smoking Status/Tobac co Use Comment [facility] Feb 08, 2023 10:00 AM [place]-TOBACCO QUIT 15 YRS OR MORE [facility] Mar 06, 2022 02:30 PM VA-TOBACCO FORMER USER [facility] Mar 06, 2022 02:30 PM VA-TOBACCO QUIT 15 YRS OR MORE [facility] Apr 04, 2021 10:28 AM VA-TOBACCO NEVER USED [place] [facility] May 03, 2020 02:00 PM VA-TOBACCO NEVER USED [facility] Feb 25, 2019 08:14 AM VA-TOBACCO FORMER USER [facility] Feb 25, 2019 08:14 AM VA-TOBACCO QUIT 5 TO < 15 YRS [facility] Apr 04, 2018 10:41 AM QUIT TOBACCO USE 1-7 YEARS AGO [facility] Oct 28, 2017 10:18 AM QUIT TOBACCO USE 1-7 YEARS AGO [facility] Jan 22, 2017 01:08 PM QUIT TOBACCO USE 1-7 YEARS AGO [facility] Jul 18, 2016 01:34 PM QUIT TOBACCO USE 1-7 YEARS AGO [facility] January 10, 2016 10:32 AM QUIT TOBACCO USE 1-7 YEARS AGO [facility] Oct 13, 2015 11:05 AM QUIT TOBACCO USE 1-7 YEARS AGO [facility] Oct 19, 2014 01:53 PM QUIT TOBACCO USE > 7 YEARS AGO [facility] January 02, 2014 01:30 AM QUIT TOBACCO USE IN PAST YEAR [facility] Jun 18, 2013 09:00 AM CURRENT SMOKER 6 cigarettes qd [facility] Jun 18, 2013 09:00 AM V1-PT DECLINES TOBACCO CESSATION MEDS [facility] Jun 18, 2013 09:00 AM V1-PT NOT INTERESTED IN QUIT TOBACCO USE [facility] December 24, 2012 10:51 AM V1-PT DECLINES REF TO TOBACCO CESS PRGM [facility] December 24, 2012 10:51 AM V1-PT DECLINES TOBACCO CESSATION MEDS [facility] December 24, 2012 10:51 AM V1-PT THINKING ABOUT QUIT TOBACCO USE [facility] Jul 15, 2012 10:19 AM QUIT TOBACCO USE IN PAST YEAR [facility] Jan 25, 2012 05:02 PM QUIT TOBACCO USE IN PAST YEAR [facility] Sep 28, 2011 10:09 AM CURRENT SMOKER 5 cigarettes a day [facility] Jun 15, 2011 02:23 PM V1-PT DECLINES REF TO TOBACCO CESS PRGM [facility] Jun 15, 2011 02:23 PM V1-PT READY TO QUIT TOBACCO USE [facility] Apr 13, 2011 10:31 AM V1-PT DECLINES REF TO TOBACCO CESS PRGM [facility] Apr 13, 2011 10:31 AM V1-PT RECEIVES TOBACCO CESS MEDS OUTSIDE [facility] Apr 13, 2011 10:31 AM V1-PT THINKING ABOUT QUIT TOBACCO USE [facility] Oct 16, 2010 08:52 AM QUIT TOBACCO USE IN PAST YEAR [facility] May 12, 2010 02:08 PM V1-PT [facility] May 12, 2010 02:08 PM V1-PT READY TO QUIT TOBACCO USE [facility] May 12, 2010 12:45 PM CURRENT SMOKER 3 cigarettes a day [facility] Radiology Reports: +/- 30 days of the [...] the Encounter. The data comes from all [facility] facilities. Date/Time Radiology Report Provider Source Nov 15, 2023 10:22 AM ELBOW 3 OR MORE VIEWS(LEFT): PEBBLES MEEK [id number] F Exm Date: NOV 15, 2023@10:22 Req Phys: KIRCHEN,CADEN Pat Loc: [facility]/NO/PACT 6 WH (Req'g Loc) Img Loc: [facility]/BUILDING 1 Service: Unknown (Case [id number] COMPLETE) ELBOW 3 OR MORE VIEWS(LEFT) (RAD Detailed) CPT:29449 Reason for Study: pain and swelling left elbow Clinical History: 73yo woman with h/o traumatic injury in 20s, Report Status: Verified Date Reported: NOV 15, 2023 Date Verified: NOV 15, 2023 Operations Staff Specialist Security E-Sig:/ES/NEMO RODRIGUEZ JR Report: Study: AP, lateral, [...] Primary Interpreting Staff: NEMO RODRIGUEZ JR, Radiologist (Operations Staff Specialist Security) /NEMO WEISS JR [facility] Encounter Notes: All associated encounter notes This section contains the clinical notes associated to the Encounter. 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 12/21/2019 IMAN IRVING Urge incontinence of urine (SNOMED 01/12/2020 TRAYCADEN Osteopenia M85.9 07/18/2016 ELVIAAMIE ANTOINELE Sciatica M54.41 09/14/2015 TRAYCADEN Obesity E66.09 01/12/2016 CADEN FELIZ Chronic obstructive lung disease (S 08/30/2015 CADEN FELIZ Diabetes mellitus (SNOMED CT 397523 07/20/2015 JENN SRIVASTAVA Restless Leg Syndrome * (ICD-9-CM 3 07/15/2012 DIPAK JOSEPH Knee pain (SNOMED CT 3353701241) R5 03/26/2022 CADEN FELIZ Paroxysmal atrial fibrillation (SNO 08/30/2015 CADEN FELIZ Other and unspecified Sleep Apnea 7 07/21/2010 BRITNEY SOTO Hyperlipidemia (SNOMED CT 23942789) 08/30/2015 CADEN FELIZ Chronic anxiety (SNOMED CT 79772058 12/09/2020 JACQUE MISTRY Asthma (SNOMED CT 971536958) J45.99 08/25/2015 MARIUM HUERTA Chronic depression ([place] [address] 12/09/2020 JACQUE MISTRY PTSD - Post-traumatic stress disord 12/09/2020 JACQUE MISTRY Knee Joint replacement Status (Pros 08/30/2015 AMELIA HERNANDEZ Past Surgeries:, tubal ligation, left ankle fracture-has plate and screws, R forearm for necrosis, R knee arthroplasty Patient [facility] [place] [facility] with a decr in pain in the left sided gluteal, and, lat post left thigh t Followed by PT for pain in anterior pelvis. And had 2nd appt. She states that there's a leg length discrepancy Radiation yes Provocative: sitting; stairs; cleaning house; bending to [...] in neck and decr bilat rotation Prior personal caregiver: yes, it was OK and for a different pain in her low back. Activities: None, but now she does recommended stretches from PT GOALS: incr energy to do more things such as hiking. Pertinent imaging: From chart notes 12/18/21 PA Tilley The lumbar spine from 12/06/2021 demonstrated [...] Supine gluteal stretching as per palpation Objectives 11/19/23: Hypertonic tender R SI jt area, T/L and L/S Restrictions thoracic, lumbar Treatment: Corrective/Active Manual therapy, 8 min, MFR side lying to left gluteals, hip flexors. lumbar CMT lumbar side posture CMT lower thoracic AT F/D 5 min, mechanical lumbar traction w flex and lateral bending. Provided patient with Performa Gel pack for hot/cold therapy. Instructions were included. Treatment carried out today and well tolerated with relief expressed.Patient was not able to flex her R knee for side [...] core stability, balance, and pain modulation. Visit 2 F/U 4 weekly Seek urgent care as needed. CMT: chiropractic manipulative therapy SMT: Spinal Manipulative Therapy F/D: Flexion Distraction MFR: Myofascial Release S-I: Sacroiliac MFTP: Myofascial Trigger Point NRS: Numeric Rating Scale N/T: Numbness/Tingling PIR: Post isometric relaxation Suicide Screen: C-SSRS Screening [place]-Suicide Severity Rating Scale (C-SSRS Screener) 1. Over the past month, have you wished you were or wished you could go to sleep and not wake up? No 2. Over the past month, have you had any actual thoughts of killing yourself? No 3. Over the past month, have you been thinking about how you might do this? Response not required due to responses to other questions. 4. Over the past month, have you had these thoughts and had some intention of acting on them? Response not required due to responses to other questions. 5. Over the past month, have you started to work out or worked out the details of how to kill yourself? Response not required due to responses to other questions. 6. If yes, at any time in the past month did you intend to carry out this plan? Response not required due to responses to other questions. 7. In your lifetime, have you ever done anything, started to do anything, or prepared to do anything to end your life (for example, collected pills, obtained a gun, gave away valuables, went to the roof but didn't jump)? No 8. If YES, was this within the past 3 months? Response not required due to responses to other questions. /jeana/ MARIAN TREVIÑO D.C. CHIROPRACTOR Signed: 10/21/2023 09:26 MARIAN TREVIÑO [facility]
--- OUTSIDE RECORDS SUMMARY | 2024-08-04 16:54 | XMS_ITS | Encounter Summary ---
Author Name [facility] [place] [facility] [place] [place] Address [address] [place] [address] Care Team Providers Care Child And Adolescent Psychologist Name Role Phone CADEN FELIZ Primary Care [...] PLAN I Aug 19, 2019 PLAN I [id number] MEEK,GR ICEL PATIENT [employer] MEDICARE SUPPLEMEN MARCIA PLANM Y Aug 19, 2019 PLANMY [id number] [phone] MEEK,GR ICEL PATIENT [employer] OPTIONS MEDICARE SUPPLEMEN MARCIA AARP MEDIC ARE SUPPL Aug 19, 2019 PLAN MY [id number] MEEK,GR ICEL PATIENT [employer] INS MEDICARE SUPPLEMEN MARCIA PLANM Y Aug 19, 2019 PLANMY [id number] MEEK,GR ICEL PATIENT A[employer] MED SUPP MEDICARE SUPPLEMEN MARCIA Jul 19, 2010 PLANMY [id number] MEEK,GR ICEL PATIENT MEDICARE (WNR) MEDICARE () PART B Aug 19, 2008 PART B [id number] MEEK,GR ICEL PATIENT MEDICARE (WNR) MEDICARE () PART B Aug 19, 2008 PART B [id number] MEEK,GR ICEL PATIENT MEDICARE (WNR) MEDICARE () PART B Aug 19, 2008 PART B [id number] MEEK,GR ICEL PATIENT MEDICARE (WNR) MEDICARE () PART B Aug 19, 2008 PART B [id number] MEEK,GR ICEL PATIENT MEDICARE (WNR) MEDICARE () PART B Aug 19, 2008 PART B [id number] [phone] MEEK,GR ICEL PATIENT MEDICARE (WNR) MEDICARE () PART B Aug 19, 2008 PART B [id number] MEEK,GR ICEL PATIENT MEDICARE (WNR) MEDICARE () PART B Aug 19, 2008 PART B [id number] [phone] MEEK,GR ICEL PATIENT MEDICARE (WNR) MEDICARE () PART A December 18, 2003 PART A [id number] MEEK,GR ICEL PATIENT MEDICARE (WNR) MEDICARE () PART A December 18, 2003 PART A [id number] [phone] MEEK,GR ICEL PATIENT MEDICARE (WNR) MEDICARE () PART A December 18, 2003 PART A [id number] [phone] MEEK,GR ICEL PATIENT MEDICARE (WNR) MEDICARE () PART A December 18, 2003 PART A [id number] MEEK,GR ICEL PATIENT MEDICARE (WNR) MEDICARE () PART A December 18, 2003 PART A [id number] [phone] MEEK,GR ICEL PATIENT MEDICARE (WNR) MEDICARE () PART A December 18, 2003 PART A [id number] SABINE MEEK ICEJacky PATIENT MEDICARE (WNR) MEDICARE (M) PART A December 18, 2003 PART A [id number] [phone] SABINE MEEK PATIENT Selected Encounter This section includes the information on record at [place] for the Encounter. Date/Time Encounter Type Encounter Description Reason Pro vider Source Oct 18, 2023 04:07 PM Outpatient Encounter ADMIN PAT ACTIVTIES (MASNONCT) IHE Encounter Template Text not used by [place] Plan of Treatment: Future Appointments (+ 6 months) and Future Tests (+/- 45 days) The Plan of Treatment section includes future care activities for the patient from [facility] [place] [facility] This section includes future appointments and future [...] - MEDICINE [facility] Oct 23, 2023 09:00 AM AMBULATORY - MEDICINE [place] [facility] Oct 24, 2023 09:00 AM AMBULATORY - REHAB MEDICIN E [facility] Oct 28, 2023 09:00 AM AMBULATORY - MEDICINE [facility] Oct 28, 2023 11:00 AM AMBULATORY - MEDICINE [facility] Oct 30, 2023 09:00 AM AMBULATORY - MEDICINE [facility] Nov 08, 2023 08:00 AM AMBULATORY - MEDICINE [facility] Nov 14, 2023 09:00 AM AMBULATORY - REHAB MEDICIN E [facility] Nov 15, 2023 09:00 AM AMBULATORY - MEDICINE [facility] Nov 15, 2023 09:30 AM AMBULATORY - MEDICINE [facility] Nov 18, 2023 11:00 AM AMBULATORY - MEDICINE [facility] Nov 25, 2023 10:00 AM AMBULATORY - MEDICINE [facility] Nov 27, 2023 09:30 AM AMBULATORY [...] - MEDICINE [facility] Dec 09, 2023 11:30 AM AMBULATORY - MEDICINE [facility] Dec 12, 2023 11:30 AM AMBULATORY - NONE [facility] Lab Results: +/- 30 days of the encounter This section includes the Chemistry and Hematology Lab Results on record with [place] for the patient. Radiology Reports and Pathology Reports are provided separately, in subsequent sections. Lab Results This section contains the Chemistry/Hematology Results that were resulted 30 days before or 30 daysafter the date of the Encounter. Date/Time Source Result Type Result - Unit Interpretation Reference Range Comment Nov 15, 2023 10:10 AM [facility] VITAMIN B12 Specimen Type: SERUM No comment entered. Ordering Provider: WALE FELIZ Report Released Date/Time: Nov 15, 2023 09:56 AM Reporting Lab: [facility] [address] [facility] [address] Performing Lab: [facility] [address] [facility] [address] VITAMIN B12 806 pg/mL 200-900 Nov 15, 2023 10:10 AM [facility] MICROALBUMIN CREATININE RATIO PANEL Specimen Type: URINE No comment entered. Ordering Provider: WALE FELIZ Report Released Date/Time: Nov 15, 2023 09:56 AM Reporting Lab: [facility] [address] [facility] [address] Performing [facility]: [facility] [address] [address] MICROALBUMIN/C REATININE RATIO canc mg/g 0-29.9 MICROALBUMIN,Q UANTITATIVE < 0.5 mg/dL RR UNAVAIL CREATININE URINE 34.74 mg/dL Nov 15, 2023 10:10 AM [facility] HEMOGLOBIN A1C PANEL Specimen Type: BLOOD No comment entered. Ordering Provider: WALE FELIZ Report Released Date/Time: Nov 15, 2023 09:56 AM Reporting Lab: [facility] [address] [facility] [address] Performing Lab: [facility] [address] [address] HEMOGLOBIN A1C 6.1 H 4.0-5.6 Nov 15, 2023 10:10 AM [facility] VITAMIN D (25-OH) Specimen Type: SERUM No comment entered. Ordering Provider: WALE FELIZ Report Released Date/Time: Nov 15, 2023 09:56 AM Reporting Lab: [facility] [address] [facility] [address] Performing Lab: [facility] [address] [facility] [address] VITAMIN D (25-OH) 54 ng/mL H 20-50 Nov 15, 2023 10:10 AM [facility] BASIC METABOLIC PANEL (non-fasting) Specimen Type: SERUM No comment entered. Ordering Provider: WALE FELIZ Report Released Date/Time: Nov 15, 2023 09:56 AM Reporting Lab: [facility] [address] [facility] [address] Performing Lab: [address] [address] UREA NITROGEN 6 mg/dL L 7-25 GLUCOSE 168 mg/dL H 65-100 SODIUM 134 mmol/L L 135-145 POTASSIUM 4.3 mmol/L 3.5-5.0 CHLORIDE 99 mmol/L L 100-110 CO2 25 meq/L 20-30 CREATININE, Serum 0.66 mg/dL 0.50-1.40 eGFR(CKD-EPI 2020) >90 mL/min >60 Oct 28, 2023 09:26 AM [facility] GLUCOSE, Fingerstick Specimen Type: BLOOD Comment: For GLU FinTest performed by: Linda Vee For GLU Fin Meter #: [id number] Ordering Provider: WALE FELIZ Report Released Date/Time: Oct 28, 2023 10:19 AM Reporting Lab[facility] [address] [facility] [address] Performing [facility] [address] [facility] [address] GLUCOSE, Fingerstick 178 mg/dL H 65-100 Social [...] took place. Date/Time Current Smoking Status Comment [facility] Feb 08, 2023 10:00 AM VA-TOBACCO FOR[facility]ER [facility] Tobacco Use History This section includes a history of the smoking, or tobacco-related health factors, that were collected on or before the date of the Encounter. The data comes from the [place] facility where the Encounter took place. Date/Time Smoking Status/Tobac co Use Comment [facility] Feb 08, 2023 10:00 AM VA-TOBACCO QUIT 15 YRS OR MORE [facility] Mar 06, 2022 02:30 PM VA-TOBACCO FORMER USER [facility] Mar 06, 2022 02:30 PM VA-TOBACCO QUIT 15 YRS OR MORE [facility] Apr 04, 2021 10:28 AM VA-TOBACCO NEVER USED [facility] May 03, 2020 02:00 PM VA-TOBACCO NEVER USED [facility] Feb 25, 2019 08:14 AM VA-TOBACCO FORMER USER [facility] Feb 25, 2019 08:14 AM VA-TOBACCO QUIT 5 TO < 15 YRS [facility] Apr 04, 2018 10:41 AM QUIT TOBACCO USE 1-7 YEARS AGO [facility] Oct 28, 2017 10:18 AM QUIT TOBACCO USE 1-7 YEARS AGO [facility] Jan 22, 2017 01:08 PM QUIT TOBACCO USE 1-7 YEARS AGO [facility] Jul 18, 2016 01:34 PM QUIT TOBACCO USE 1-7 YEARS AGO [facility] January 10, 2016 10:32 AM QUIT TOBACCO USE 1-7 YEARS AGO [facility] Oct 13, 2015 11:05 AM QUIT TOBACCO USE 1-7 YEARS AGO [facility] Oct 19, 2014 01:53 PM QUIT TOBACCO USE > 7 YEARS AGO [facility] January 02, 2014 01:30 AM QUIT TOBACCO USE IN PAST YEAR [facility] Jun 18, 2013 09:00 AM CURRENT SMOKER 6 cigarettes qd [facility] Jun 18, 2013 09:00 AM V1-PT DECLINES TOBACCO CESSATION MED[facility] Jun 18, 2013 09:00 AM V1-PT NOT INTERESTED IN QUIT TOBACCO USE [facility] December 24, 2012 10:51 AM V1-PT DECLINES REF TO TOBACCO CESS PRGM [facility] December 24, 2012 10:51 AM V1-PT DECLINES TOBACCO CESSATION MEDS [facility] December 24, 2012 10:51 AM V1-PT THINKING ABOUT QUIT TOBACCO USE [facility] Jul 15, 2012 10:19 AM QUIT TOBACCO USE IN PAST YEAR [facility] Jan 25, 2012 05:02 PM QUIT TOBACCO USE IN PAST YEAR [facility] Sep 28, 2011 10:09 AM CURRENT SMOKER 5 cigarettes a day [facility] Jun 15, 2011 02:23 PM V1-PT DECLINES REF TO TOBACCO CESS PRGM [facility] Jun 15, 2011 02:23 PM V1-PT READY TO QUIT TOBACCO USE [facility] Apr 13, 2011 10:31 AM V1-PT DECLINES REF TO TOBACCO CESS PRGM [facility] Apr 13, 2011 10:31 AM V1-PT RECEIVES TOBACCO CESS MEDS OUTSIDE [facility] Apr 13, 2011 10:31 AM V1-PT THINKING ABOUT QUIT TOBACCO USE [facility] Oct 16, 2010 08:52 AM QUIT TOBACCO USE IN PAST YEAR [facility] May 12, 2010 02:08 PM V1-PT DECLINES REF TO TOBACCO CESS PRGM [facility] May 12, 2010 02:08 PM V1-PT READY TO QUIT TOBACCO USE [facility] May 12, 2010 12:45 PM CURRENT SMOKER 3 cigarettes a day [facility] Radiology Reports: +/- 30 days of [...] the Encounter. The data comes from all [facility]. 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 Date/Time Encounter Note(s) Provider Source Oct 18, 2023 04:07 PM ADMINISTRATIVE NOT E: LOCAL TITLE: CCC: SCHEDULING ADMINISTRATION STANDARD TITLE: ADMINISTRATIVE NOTE DATE OF NOTE: OCT 18, 2023@16:07:51 ENTRY DATE: OCT 18, 2023@16:07:51 AUTHOR: ZORAIDA BAÑUELOS EXP COSIGNER: URGENCY: STATUS: COMPLETED CCC: SCHEDULING ADMINISTRATION Has ADDENDA Patient Demographics Patient Name: PEBBLES MEEK Patient Primary Phone: [phone] Patient Primary [address] [address] [place] [address] [place] [address] Patient : 1950 Patient Age: 73 Caller/Recipient Relation to Patient: Self Administrative Administrative Note Comments: [place] needs her consult for acupuncture to be extended. please call her for status [phone] /jeana/ ZORAIDA BAÑUELOS Signed: 10/18/2023 16:07 Receipt Acknowledged By: 10/21/2023 11:26 /jeana/ KIET FRANCIS, YING, RN, CNL PRIMARY CARE TEAM NURSE 10/21/2023 09:05 /es/ Maricarmen De La Garza display manager Staff Nurse 10/21/2023 ADDENDUM STATUS: COMPLETED A new CC Acupuncture consult placed and held for provider signature /jeana/ YING PIEDRA, RN, CNL PRIMARY CARE TEAM NURSE Signed: 10/21/2023 11:26 ZORAIDA BAÑUELOS [facility]
--- OUTSIDE RECORDS SUMMARY | 2024-08-04 16:55 | XMS_ITS | Encounter Summary ---
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 Name Role Phone CADEN FELIZ Primary Care [...] PLAN I Aug 19, 2019 PLAN I [id number] [phone] MEEK,GR ICEL PATIENT [employer] OPTIONS MEDICARE SUPPLEMEN MARCIA PLANM Y Aug 19, 2019 PLANMY [id number] [phone] MEEK,GR ICEL PATIENT [employer] OPTIONS MEDICARE SUPPLEMEN MARCIA AARP MEDIC ARE SUPPL Aug 19, 2019 PLAN MY [id number] [phone] MEEK,GR ICEL PATIENT AARP INS MEDICARE SUPPLEMEN MARCIA PLANM Y Aug 19, 2019 PLANMY [id number] MEEK,GR ICEL PATIENT AARP MED SUPP MEDICARE SUPPLEMEN MARCIA Jul 19, 2010 PLANMY [id number] MEEK,GR ICEL PATIENT MEDICARE (WNR) MEDICARE () PART B Aug 19, 2008 PART B [id number] MEEK,GR ICEL PATIENT MEDICARE (WNR) MEDICARE () PART B Aug 19, 2008 PART B [id number] MEEK,GR ICEL PATIENT MEDICARE (WNR) MEDICARE () PART B Aug 19, 2008 PART B [id number] MEEK,GR ICEL PATIENT MEDICARE (WNR) MEDICARE () PART B Aug 19, 2008 PART B [id number] MEEK,GR ICEL PATIENT MEDICARE (WNR) MEDICARE () PART B Aug 19, 2008 PART B [id number] [phone] MEEK,GR ICEL PATIENT MEDICARE (WNR) MEDICARE () PART B Aug 19, 2008 PART B [id number] [phone] MEEK,GR ICEL PATIENT MEDICARE (WNR) MEDICARE () PART B Aug 19, 2008 PART B [id number] [phone] MEEK,GR ICEL PATIENT MEDICARE (WNR) MEDICARE () PART A December 18, 2003 PART A [id number] MEEK,GR ICEL PATIENT MEDICARE (WNR) MEDICARE () PART A December 18, 2003 PART A [id number] [phone] MEEK,GR ICEL PATIENT MEDICARE (WNR) MEDICARE () PART A December 18, 2003 PART A [id number] [phone] MEEK,GR ICEL PATIENT MEDICARE (WNR) MEDICARE () PART A December 18, 2003 PART A [id number] [phone] MEEK,GR ICEL PATIENT MEDICARE (WNR) MEDICARE () PART A December 18, 2003 PART A [id number] MEEK,GR ICEL PATIENT MEDICARE (WNR) MEDICARE () PART A December 18, 2003 PART A [id number] SABINE MEEK PATIENT MEDICARE (WNR) MEDICARE (M) PART A December 18, 2003 PART A [id number] [phone] SABINE MEEK PATIENT Selected Encounter This section includes the information on record at [place] for the Encounter. 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 Date/Time Primary/Secondary Diagnosis Diagnosis Name Provider Source Oct 23, 2023 04:15 PM PRIMARY Pain in left hip MARIAN TREVIÑO [facility] [place] [facility] Plan of Treatment: Future Appointments (+ 6 months) and Future Tests (+/- 45 days) The Plan of Treatment section includes future care activities for the patient [facility] This section includes future appointments and future orders which are active, pending or scheduled. Future Appointments This section includes appointments that were scheduled to occur 6 months from the date of the Encounter, up to a maximum of 20 appointments. The data comes from all [place] treatment facilities. Appointment Date/Time Appointment Type Appointme nt Facility Name Oct 24, 2023 09:00 AM AMBULATORY - REHAB MEDICIN E [facility] [place] [facility] Oct 28, 2023 09:00 AM AMBULATORY - MEDICINE PA [facility] [place] [facility] Oct 28, 2023 11:00 AM AMBULATORY - MEDICINE PA [facility] [place] [facility] Oct 30, 2023 09:00 AM AMBULATORY - MEDICINE PA [facility] [place] [facility] Nov 08, 2023 08:00 AM AMBULATORY - MEDICINE [facility] [place] [facility] Nov 14, 2023 09:00 AM AMBULATORY - REHAB MEDICIN E [facility] [place] [facility] Nov 15, 2023 09:00 AM AMBULATORY - MEDICINE PA [facility] [place] [facility] Nov 15, 2023 09:30 AM AMBULATORY - MEDICINE PA [facility] [place] [facility] Nov 18, 2023 11:00 AM AMBULATORY - MEDICINE [facility] [place] [facility] Nov 25, 2023 10:00 AM AMBULATORY - MEDICINE [facility] [place] [facility] Nov 27, 2023 09:30 AM [facility]AT[facility]INE [facility] [place] [facility] Nov 28, 2023 09:00 AM AMBULATORY - MEDICINE [facility] [place] [facility] Nov 28, 2023 10:00 AM AMBULATORY - PSYCHIATRY [facility] [place] Dec 05, 2023 09:00 AM AMBULATORY - REHAB MEDICIN E [facility] [place] Dec 05, 2023 09:30 AM AMBULATORY - MEDICINE [facility] [place] [facility] Dec 09, 2023 09:30 AM AMBULATORY - MEDICINE [facility] [place] [facility] Dec 09, 2023 11:30 AM AMBULATORY - MEDICINE [facility] [place] [facility] Dec 12, 2023 11:30 AM AMBULATORY - NONE [facility] [place] [facility] Dec 16, 2023 01:00 PM AMBULATORY - PSYCHIATRY [facility] [place] [facility] December 23, 2023 01:00 PM AMBULATORY - PSYCHIATRY [facility] [place] [facility] Lab Results: +/- 30 days of the encounter This section includes the Chemistry and Hematology Lab Results on record with PA for the patient. Radiology Reports and Pathology Reports are provided separately, in subsequent sections. Lab Results This section contains the Chemistry/Hematology Results that were resulted 30 days before or 30 daysafter the date of the Encounter. Date/Time Source Result Type Result - Unit Interpretation Reference Range Comment Nov 15, 2023 10:10 AM [facility] [place] [facility] VITAMIN B12 Specimen Type: SERUM No comment entered. Ordering Provider: WALE FELIZ Report Released Date/Time: Nov 15, 2023 09:56 AM Reporting Lab: [facility] [place] [facility] [address] [address] Performing Lab: [facility] [address] [address] VITAMIN B12 806 pg/mL 200-900 Nov 15, 2023 10:10 AM [facility] [place] [facility] MICROALBUMIN CREATININE RATIO PANEL Specimen Type: URINE No comment entered. Ordering Provider: WALE FELIZ Report Released Date/Time: Nov 15, 2023 09:56 AM Reporting [facility] [address] [address] Performing Lab: [facility] [address] [address] MICROALBUMIN/C REATININE RATIO canc mg/g 0-29.9 MICROALBUMIN,Q UANTITATIVE < 0.5 mg/dL RR UNAVAIL CREATININE URINE 34.74 mg/dL Nov 15, 2023 10:10 AM [facility] HEMOGLOBIN A1C PANEL Specimen Type: BLOOD No comment entered. Ordering Provider: WALE FELIZ Report Released Date/Time: Nov 15, 2023 09:56 AM Reporting Lab: [address] [address] Performing Lab: [address] [address] HEMOGLOBIN A1C 6.1 H 4.0-5.6 Nov 15, 2023 10:10 AM [facility] VITAMIN D (25-OH) Specimen Type: SERUM No comment entered. Ordering Provider: WALE FELIZ Report Released Date/Time: Nov 15, 2023 09:56 AM Reporting Lab: [address] [address] [facility]forming [facility]: [facility] [address] VITAMIN D (25-OH) 54 ng/mL H 20-50 Nov 15, 2023 10:10 AM [facility] BASIC METABOLIC PANEL (non-fasting) Specimen Type: SERUM No comment entered. Ordering Provider: WALE FELIZ Report Released Date/Time: Nov 15, 2023 09:56 AM Reporting Lab: [address] [address] Performing [facility]: [facility] [address] UREA NITROGEN 6 mg/dL L 7-25 GLUCOSE 168 mg/dL H 65-100 SODIUM 134 mmol/L L 135-145 POTASSIUM 4.3 mmol/L 3.5-5.0 CHLORIDE 99 mmol/L L 100-110 CO2 25 meq/L 20-30 CREATININE, Serum 0.66 mg/dL 0.50-1.40 eGFR(CKD-EPI 2020) >90 mL/min >60 Oct 28, 2023 09:26 AM [facility] GLUCOSE, Fingerstick Specimen Type: BLOOD Comment: For GLU FinTest performed by: Linda Vee For GLU Fin Meter #: [id number] Ordering Provider: WALE FELIZ Report Released Date/Time: Oct 28, 2023 10:19 AM Reporting Lab: [address] [address] Performing Lab: [address] [address] GLUCOSE, Fingerstick 178 mg/dL H 65-100 Social History: Smoking Status (Most current) and Tobacco Use (All prior to encounter date) This section includes the most current, and the historical, smoking and tobacco- related health factors from the [place] facility where the Encounter took place. Current Smoking Status This section includes the most current smoking, or tobacco-related health factor, from the [place] facility where the Encounter took place. Date/Time Current Smoking Status Comment [facility] Feb 08, 2023 10:00 AM PA-TOBACCO FORMER USER [facility] Tobacco Use History This section includes a history of the smoking, or tobacco-related health factors, that were collected on or before the date of the Encounter. The data comes from the [place] facility where the Encounter took place. Date/Time Smoking Status/Tobac co Use Comment [facility] Feb 08, 2023 10:00 AM PA-TOBACCO QUIT 15 YRS OR MORE [facility] Mar 06, 2022 02:30 PM VA-TOBACCO FORMER USER [facility] Mar 06, 2022 02:30 PM PA-TOBACCO QUIT 15 YRS OR MORE [facility] Apr 04, 2021 10:28 AM VA-TOBACCO NEVER USED [facility] [place] [facility] May 03, 2020 02:00 PM VA-TOBACCO NEVER USED [facility] [place] [facility] Feb 25, 2019 08:14 AM VA-TOBACCO FORMER USER [facility] [place] [facility] Feb 25, 2019 08:14 AM VA-TOBACCO QUIT 5 TO < 15 YRS [facility] [place] [facility] Apr 04, 2018 10:41 AM QUIT TOBACCO USE 1-7 YEARS AGO [facility] [place] [facility] Oct 28, 2017 10:18 AM QUIT TOBACCO USE 1-7 YEARS AGO [facility] [place] [facility] Jan 22, 2017 01:08 PM QUIT TOBACCO USE 1-7 YEARS AGO [facility] [place] [facility] Jul 18, 2016 01:34 PM QUIT TOBACCO USE 1-7 YEARS AGO [facility] [place] [facility] January 10, 2016 10:32 AM QUIT TOBACCO USE 1-7 YEARS AGO [facility] [place] [facility] Oct 13, 2015 11:05 AM QUIT TOBACCO USE 1-7 YEARS AGO [facility] [place] [facility] Oct 19, 2014 01:53 PM QUIT TOBACCO USE > 7 YEARS AGO [facility] [place] [facility] January 02, 2014 01:30 AM QUIT TOBACCO USE IN PAST YEAR [facility] [place] [facility] Jun 18, 2013 09:00 AM CURRENT SMOKER 6 cigarettes qd [facility] [place] [facility] Jun 18, 2013 09:00 AM V1-PT DECLINES TOBACCO CESSATION MEDS [facility] [place] [facility] Jun 18, 2013 09:00 AM V1-PT NOT INTERESTED IN QUIT TOBACCO USE [facility] [place] [facility] December 24, 2012 10:51 AM V1-PT DECLINES REF TO TOBACCO CESS PRGM [facility] [place] [facility] December 24, 2012 10:51 AM V1-PT DECLINES TOBACCO CESSATION MEDS [facility] [place] [facility] December 24, 2012 10:51 AM V1-PT THINKING ABOUT QUIT TOBACCO USE [facility] [place] [facility] Jul 15, 2012 10:19 AM QUIT TOBACCO USE IN PAST YEAR [facility] Jan 25, 2012 05:02 PM QUIT TOBACCO USE IN PAST YEAR [facility] Sep 28, 2011 10:09 AM CURRENT SMOKER 5 cigarettes a day [facility] Jun 15, 2011 02:23 PM V1-PT DECLINES REF TO TOBACCO CESS PRGM [facility] Jun 15, 2011 02:23 PM V1-PT READY TO QUIT TOBACCO USE [facility] Apr 13, 2011 10:31 AM V1-PT DECLINES REF TO TOBACCO CESS PRGM [facility] Apr 13, 2011 10:31 AM V1-PT RECEIVES TOBACCO CESS MEDS OUTSIDE [facility] Apr 13, 2011 10:31 AM V1-PT THINKING ABOUT QUIT TOBACCO USE [facility] Oct 16, 2010 08:52 AM QUIT TOBACCO USE IN PAST YEAR [facility] May 12, 2010 02:08 PM V1[facility] 12, 2010 02:08 PM V1-PT READY TO QUIT TOBACCO USE [facility] May 12, 2010 12:45 PM CURRENT SMOKER 3 cigarettes a day [facility] Radiology Reports: +/- 30 days [...] the Encounter. The data comes from all [facility]] facilities. Date/Time Radiology Report Provider Source Nov 15, 2023 10:22 AM ELBOW 3 OR MORE VIEWS(LEFT): PEBBLES MEEK [id number] -[id number] F Exm Date: NOV 15, 2023@10:22 Req Phys: KIRCADEN ANTOINE Loc: CWM/NO/PACT 6 WH (Req'g Loc) Img Loc: [facility]/BUILDING 1 Service: Unknown (Case [id number] COMPLETE) ELBOW 3 OR MORE VIEWS(LEFT) (RAD Detailed) CPT:75551 Reason for Study: pain and swelling left elbow Clinical History: 73yo woman with h/o traumatic injury in 20s, Report Status: Verified Date Reported: NOV 15, 2023 Date Verified: NOV 15, 2023 [employer] E-Sig:/ES/NEMO RODRIGUEZ JR Report: Study: AP, lateral, [...] Primary Interpreting Staff: NEMO RODRIGUEZ JR, Radiologist ([employer]) /NEMO WEISS JR [facility] Encounter Notes: All associated encounter notes This section contains the clinical notes associated to the Encounter. 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 12/21/2019 LEATORSTENIMAN ELLIS Urge incontinence of urine (SNOMED 01/12/2020 CADEN FELIZ Osteopenia M85.9 07/18/2016 AMIE FELIZLE Sciatica M54.41 09/14/2015 AMIE FELIZLE Obesity E66.09 01/12/2016 CADEN FELIZ Chronic obstructive lung disease (S 08/30/2015 CADEN FELIZ Diabetes mellitus (SNOMED CT 081311 07/20/2015 JENN SRIVASTAVA Restless Leg Syndrome * (ICD-9-CM 3 07/15/2012 WERNERCHAVADIPAK Knee pain (SNOMED CT 7483878129) R5 03/26/2022 CADEN FELIZ Paroxysmal atrial fibrillation (SNO 08/30/2015 ELVIAARASHCADEN Other and unspecified Sleep Apnea 7 07/21/2010 BRITNEY SOTO Hyperlipidemia (SNOMED CT 87669982) 08/30/2015 CADEN FELIZ Chronic anxiety (SNOMED CT 66414269 12/09/2020 JACQUE MISTRY Asthma (SNOMED CT 148210167) J45.99 08/25/2015 MARIUM HUERTA Chronic depression ([place] [address] 12/09/2020 JACQUE MISTRY PTSD - Post-traumatic stress disord 12/09/2020 JACQUE MISTRY Knee Joint replacement Status (Pros 08/30/2015 AMELIA HERNANDEZ Past Surgeries:, tubal ligation, left ankle fracture-has plate and screws, R forearm for necrosis, R knee arthroplasty HX osteonecrosis - R knee; R wrist Patient [facility] with a decr in pain in the left sided gluteal which feels heavy. She states that there less pain overall in the hip, thigh, gluteal, low back area. Followed by PT for pain in anterior [...] in neck and decr bilat rotation Prior rn complex care: yes, it was OK and for a different pain in her low back. Activities: None, but now she does recommended stretches from PT GOALS: incr energy to do more things such as hiking.She states that she would love to be [...] Supine gluteal stretching as per palpation Objectives 10/23/23: Hypertonic tender R SI jt area, T/L and L/S Restrictions thoracic, lumbar Treatment: Corrective/Active Manual therapy, 8 min, MFR side lying to left gluteals, hip flexors, lumbar CMT lumbar side posture F/D 8 min, mechanical lumbar traction w flex and lateral bending. Treatment carried out today and well tolerated with relief expressed. Patient has limited ability to flex her R knee for side lying CMT. The prognosis, at this time, is fair to good. Plan: continue trial. Followed by PT Short term goals include improvement in excess [...] core stability, balance, and pain modulation. Visit 3 F/U 4 weekly Seek urgent care as needed. CMT: chiropractic manipulative therapy SMT: Spinal Manipulative Therapy F/D: Flexion Distraction MFR: Myofascial Release S-I: Sacroiliac MFTP: Myofascial Trigger Point NRS: Numeric Rating Scale N/T: Numbness/Tingling PIR: Post isometric relaxation Suicide Screen: C-SSRS Screening [place]-Suicide Severity Rating Scale (C-SSRS Screener) 1. Over [...] questions. /jeana/ MARIAN TREVIÑO D.C. CHIROPRACTOR Signed: 10/23/2023 16:17 MARIAN TREVIÑO [facility]
--- OUTSIDE RECORDS SUMMARY | 2024-08-04 16:56 | XMS_ITS | Encounter Summary ---
Author Name [facility] [place] [facility] [place] Address [address] [place] [address] Care Team Providers Care Settlement Processor Name Role Phone CADEN FELIZ Primary Care [...] PLAN I Aug 19, 2019 PLAN I [id number] [phone] MEEK,GR ICEL PATIENT [employer] OPTIONS MEDICARE SUPPLEMEN MARCIA PLANM Y Aug 19, 2019 PLANMY [id number] MEEK,GR ICEL PATIENT [employer] OPTIONS MEDICARE SUPPLEMEN MARCIA AARP MEDIC ARE SUPPL Aug 19, 2019 PLAN MY [id number] [phone] MEEK,GR ICEL PATIENT A[employer] INS MEDICARE SUPPLEMEN MARCIA PLANM Y Aug 19, 2019 PLANMY [id number] MEEK,GR ICEL PATIENT AARP MED SUPP MEDICARE SUPPLEMEN MARCIA Jul 19, 2010 PLANMY [id number] MEEK,GR ICEL PATIENT MEDICARE (WNR) MEDICARE () PART B Aug 19, 2008 PART B [id number] MEEK,GR ICEL PATIENT MEDICARE (WNR) MEDICARE () PART B Aug 19, 2008 PART B [id number] [phone] MEEK,GR ICEL PATIENT MEDICARE (WNR) MEDICARE () PART B Aug 19, 2008 PART B [id number] MEEK,GR ICEL PATIENT MEDICARE (WNR) MEDICARE () PART B Aug 19, 2008 PART B [id number] MEEK,GR ICEL PATIENT MEDICARE (WNR) MEDICARE () PART B Aug 19, 2008 PART B [id number] [phone] MEEK,GR ICEL PATIENT MEDICARE (WNR) MEDICARE () PART B Aug 19, 2008 PART B [id number] MEEK,GR ICEL PATIENT MEDICARE (WNR) MEDICARE () PART B Aug 19, 2008 PART B [id number] MEEK,GR ICEL PATIENT MEDICARE (WNR) MEDICARE () PART A December 18, 2003 PART A [id number] [phone] MEEK,GR ICEL PATIENT MEDICARE (WNR) MEDICARE () PART A December 18, 2003 PART A [id number] [phone] MEEK,GR ICEL PATIENT MEDICARE (WNR) MEDICARE () PART A December 18, 2003 PART A [id number] [phone] MEEK,GR ICEL PATIENT MEDICARE (WNR) MEDICARE () PART A December 18, 2003 PART A [id number] MEEK,GR ICEL PATIENT MEDICARE (WNR) MEDICARE () PART A December 18, 2003 PART A [id number] MEEK,GR ICEL PATIENT MEDICARE (WNR) MEDICARE () PART A December 18, 2003 PART A [id number] SABINE MEEK PATIENT MEDICARE (WNR) MEDICARE (M) PART A December 18, 2003 PART A [id number] SABINE MEEK PATIENT Selected Encounter This section includes the information on record at [place] for the Encounter. 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 Date/Time Primary/Secondary Diagnosis Diagnosis Name Provider Source Oct 28, 2023 11:55 AM PRIMARY Other low back pain MARIAN TREVIÑO [facility] [facility] [place] [facility] Oct 28, 2023 11:55 AM SECONDARY Pain in left hip MARIAN TREVIÑO [facility] [facility] [place] [facility] Plan of Treatment: Future Appointments (+ 6 months) and Future Tests (+/- 45 days) The Plan of Treatment section includes future care activities for the patient from all [place] treatmentfacilities. This section includes future appointments and future orders which are active, pending or scheduled. Future Appointments This section includes appointments that were scheduled to occur 6 months from the date of the Encounter, up to a maximum of 20 appointments. The data comes from all [place] treatment facilities. Appointment Date/Time Appointment Type Appointme nt Facility Name Oct 30, 2023 09:00 AM [place] [facility] [place] [facility] Nov 08, 2023 08:00 AM [place] [facility] [place] [facility] Nov 14, 2023 09:00 AM AMBULATORY - REHAB MEDICIN [facility] [place] [facility] Nov 15, 2023 09:00 AM [place] [facility] [place] [facility] Nov 15, 2023 09:30 AM [place] [facility] [place] [facility] Nov 18, 2023 11:00 AM [place] [facility] [place] [facility] Nov 25, 2023 10:00 AM [place] [facility] [place] [facility] Nov 27, 2023 09:30 AM [facility]ICINE [facility] [place] [facility] Nov 28, 2023 09:00 AM AMBULATORY [...] - MEDICINE [facility] [place] [facility] Dec 12, 2023 11:30 AM AMBULATORY - NONE [facility] [place] [facility] Dec 16, 2023 01:00 PM AMBULATORY - PSYCHIATRY [facility] [place] [facility] December 23, 2023 01:00 PM AMBULATORY - PSYCHIATRY [facility] [place] [facility] December 31, 2023 09:00 AM AMBULATORY - MEDICINE [facility] [place] [facility] January 06, 2024 11:00 AM AMBULATORY - PSYCHIATRY [facility] [place] [facility] January 06, 2024 01:00 PM AMBULATORY - PSYCHIATRY [facility] [place] [facility] Lab Results: +/- 30 days of the encounter This section includes the Chemistry and Hematology Lab Results on record with [place] for the patient. Radiology Reports and Pathology Reports are provided separately, in subsequent sections. Lab Results This section contains the Chemistry/Hematology Results that were resulted 30 days before or 30 daysafter the date of the Encounter. Date/Time Source Result Type Result - Unit Interpretation Reference Range Comment Nov 15, 2023 10:10 AM [facility] [place] [facility] VITAMIN B12 Specimen Type: SERUM No comment entered. Ordering Provider: WALE FELIZ Report Released Date/Time: Nov 15, 2023 09:56 AM Reporting [facility] [address] [address] Performing Lab: [facility] [address] VITAMIN B12 806 pg/mL 200-900 Nov 15, 2023 10:10 AM [facility] MICROALBUMIN CREATININE RATIO PANEL Specimen Type: URINE No comment entered. Ordering Provider: WALE FELIZ Report Released Date/Time: Nov 15, 2023 09:56 AM Reporting Lab: [address] [address] Performing Lab: [address] [address] MICROALBUMIN/C REATININE RATIO canc mg/g 0-29.9 MICROALBUMIN,Q UANTITATIVE < 0.5 mg/dL RR UNAVAIL CREATININE URINE 34.74 mg/dL Nov 15, 2023 10:10 AM [facility] HEMOGLOBIN A1C PANEL Specimen Type: BLOOD No comment entered. Ordering Provider: WALE FELIZ Report Released Date/Time: Nov 15, 2023 09:56 AM Reporting Lab: [address] [address] Performing Lab: [address] [address] HEMOGLOBIN A1C 6.1 H 4.0-5.6 Nov 15, 2023 10:10 AM [facility] VITAMIN D (25-OH) Specimen Type: SERUM No comment entered. Ordering Provider: WALE FELIZ Report Released Date/Time: Nov 15, 2023 09:56 AM Reporting Lab: [address] [address] Performing Lab: [address] [address] VITAMIN D (25-OH) 54 ng/mL H 20-50 Nov 15, 2023 10:10 AM [facility] BASIC METABOLIC PANEL (non-fasting) Specimen Type: SERUM No comment entered. Ordering Provider: WALE FELIZ Report Released Date/Time: Nov 15, 2023 09:56 AM Reporting Lab: [address] [address] Performing Lab: [facility] [address] [facility] [address] UREA NITROGEN 6 mg/dL L 7-25 GLUCOSE 168 mg/dL H 65-100 SODIUM 134 mmol/L L 135-145 POTASSIUM 4.3 mmol/L 3.5-5.0 CHLORIDE 99 mmol/L L 100-110 CO2 25 meq/L 20-30 CREATININE, Serum 0.66 mg/dL 0.50-1.40 eGFR(CKD-EPI 2020) >90 mL/min >60 Oct 28, 2023 09:26 AM [facility] GLUCOSE, Fingerstick Specimen Type: BLOOD Comment: For GLU FinTest performed by: Linda Vee For GLU Fin Meter #: [id number] Ordering Provider: WALE FELIZ Report Released Date/Time: Oct 28, 2023 10:19 AM Reporting Lab: [address] [address] Performing Lab: [address] [address] GLUCOSE, Fingerstick 178 mg/dL H 65-100 Social History: Smoking Status (Most current) and Tobacco Use (All prior to encounter date) This section includes the most current, and the historical, smoking and tobacco- related health factors from the [place] facility where the Encounter took place. Current Smoking Status This section includes the most current smoking, or tobacco-related health factor, from the [place] facility where the Encounter took place. Date/Time Current Smoking Status Comment [facility] Feb 08, 2023 10:00 AM VA-TOBACCO FORMER USER [facility] Tobacco Use History This section includes a history of the smoking, or tobacco-related health factors, that were collected on or before the date of the Encounter. The data comes from the [place] facility where the Encounter took place. Date/Time Smoking Status/Tobac co Use Comment [facility] Feb 08, 2023 10:00 AM [place]-TO[place]AC[place] QUIT 15 YRS OR MORE [facility] Mar 06, 2022 02:30 PM VA-TOBACCO FORMER USER [facility] Mar 06, 2022 02:30 PM VA-TOBACCO QUIT 15 YRS OR MORE [facility] [place] [facility] Apr 04, 2021 10:28 AM VA-TOBACCO NEVER USED [facility] [place] [facility] May 03, 2020 02:00 PM VA-TOBACCO NEVER USED [facility] [place] [facility] Feb 25, 2019 08:14 AM VA-TOBACCO FORMER USER [facility] [place] [facility] Feb 25, 2019 08:14 AM VA-TOBACCO QUIT 5 TO < 15 YRS [facility] [place] [facility] Apr 04, 2018 10:41 AM QUIT TOBACCO USE 1-7 YEARS AGO [facility] [place] [facility] Oct 28, 2017 10:18 AM QUIT TOBACCO USE 1-7 YEARS AGO [facility] [place] [facility] Jan 22, 2017 01:08 PM QUIT TOBACCO USE 1-7 YEARS AGO [facility] [place] [facility] Jul 18, 2016 01:34 PM QUIT TOBACCO USE 1-7 YEARS AGO [facility] [place] [facility] January 10, 2016 10:32 AM QUIT TOBACCO USE 1-7 YEARS AGO [facility] [place] [facility] Oct 13, 2015 11:05 AM QUIT TOBACCO USE 1-7 YEARS AGO [facility] [place] [facility] Oct 19, 2014 01:53 PM QUIT TOBACCO USE > 7 YEARS AGO [facility] [place] [facility] January 02, 2014 01:30 AM QUIT TOBACCO USE IN PAST YEAR [facility] [place] [facility] Jun 18, 2013 09:00 AM CURRENT SMOKER 6 cigarettes qd [facility] [place] [facility] Jun 18, 2013 09:00 AM V1-PT DECLINES TOBACCO CESSATION MEDS [facility] [place] [facility] Jun 18, 2013 09:00 AM V1-PT NOT INTERESTED IN QUIT TOBACCO USE [facility] [place] [facility] December 24, 2012 10:51 AM V1-PT DECLINES REF TO TOBACCO CESS PRGM [facility] [place] [facility] December 24, 2012 10:51 AM V1-PT DECLINES TOBACCO CESSATION MEDS [facility] [place] [facility] December 24, 2012 10:51 AM V1-PT THINKING ABOUT QUIT TOBACCO USE [facility] Jul 15, 2012 10:19 AM QUIT TOBACCO USE IN PAST YEAR [facility] Jan 25, 2012 05:02 PM QUIT TOBACCO USE IN PAST YEAR [facility] Sep 28, 2011 10:09 AM CURRENT SMOKER 5 cigarettes a day [facility] Jun 15, 2011 02:23 PM V1-PT DECLINES REF TO TOBACCO CESS PRGM [facility] Jun 15, 2011 02:23 PM V1-PT READY TO QUIT TOBACCO USE [facility] Apr 13, 2011 10:31 AM V1-PT DECLINES REF TO TOBACCO CESS PRGM [facility] Apr 13, 2011 10:31 AM V1-PT RECEIVES TOBACCO CESS MEDS OUTSIDE [facility] Apr 13, 2011 10:31 AM V1-PT THINKING ABOUT QUIT TOBACCO USE [facility] Oct 16, 2010 08:52 AM QUIT TOBACCO USE IN PAST YEAR [facility] May 12, 2010 02:08 PM V[facility] May 12, 2010 02:08 PM V1-PT READY TO QUIT TOBACCO USE [facility] May 12, 2010 12:45 PM CURRENT SMOKER 3 cigarettes a day [facility] Radiology Reports: +/- 30 days of [...] the Encounter. The data comes from all [facility] facilities. Date/Time Radiology Report Provider Source Nov 15, 2023 10:22 AM ELBOW 3 OR MORE VIEWS(LEFT): PEBBLES MEEK [id number] [phone] F Exm Date: NOV 15, 2023@10:22 Req Phys: ELVIAARASHCADEN Pat Loc: CWM/NO/PACT 6 [facility] (Req'g Loc) Img Loc: [facility]BUILDING 1 Service: Unknown (Case [id number] COMPLETE) ELBOW 3 OR MORE VIEWS(LEFT) (RAD Detailed) CPT:81526 Reason for Study: pain and swelling left elbow Clinical History: 73yo woman with h/o traumatic injury in 20s, Report Status: Verified Date Reported: NOV 15, 2023 Date Verified: NOV 15, 2023 Field Naturalist E-Sig:/ES/NEMO RODRIGUEZ JR Report: Study: AP, lateral, [...] Primary Interpreting Staff: NEMO RODRIGUEZ JR, Radiologist (Field Naturalist) /NEMO WEISS JR [facility] Encounter Notes: All associated encounter notes This section contains the clinical notes associated to the Encounter. 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 12/21/2019 JAMIALVINOIMAN Urge incontinence of urine (SNOMED 01/12/2020 TRAYCADEN Osteopenia M85.9 07/18/2016 CADEN FELIZ Sciatica M54.41 09/14/2015 CADEN FELIZ Obesity E66.09 01/12/2016 CADEN FELIZ Chronic obstructive lung disease (S 08/30/2015 CADEN FELIZ Diabetes mellitus (SNOMED CT 063302 07/20/2015 JENN SRIVASTAVA Restless Leg Syndrome * (ICD-9-CM 3 07/15/2012 DIPAK JOSEPH Knee pain (SNOMED CT 0094197525) R5 03/26/2022 CADEN FELIZ Paroxysmal atrial fibrillation (SNO 08/30/2015 CADEN FELIZ Other and unspecified Sleep Apnea 7 07/21/2010 BRITNEY SOTO Hyperlipidemia (SNOMED CT 90476673) 08/30/2015 CADEN FELIZ Chronic anxiety (SNOMED CT 33797290 12/09/2020 JACQUE MISTRY Asthma (SNOMED CT 256620088) J45.99 08/25/2015 MARIUM HUERTA Chronic depression (SNOMED [place] [address] 12/09/2020 JACQUE MISTRY PTSD - Post-traumatic stress disord 12/09/2020 JACQUE MISTRY Knee Joint replacement Status (Pros 08/30/2015 AMELIA HERNANDEZ Past Surgeries:, tubal ligation, left ankle fracture-has plate and screws, R forearm for necrosis, R knee arthroplasty HX osteonecrosis - R knee; R wrist Patient [facility] to [place] [facility] with report that she feels much improvement There is a decr in pain in the left gluteal and a bit better left IT band. Followed by PT. 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 Activities: None, but now she does recommended stretches from PT GOALS: incr energy to do more things such as hiking.She states that she would love to be able to go up and [place] Pertinent imaging: From chart notes 12/18/21 PA [...] Supine gluteal stretching as per palpation Objectives 10/28/23: Hypertonic tender R SI jt area, T/L and L/S, left IT band Restrictions lumbar, SI jts Treatment: Corrective/Active Manual therapy, 8 min, MFR [...] core stability, balance, and pain modulation. Visit 4 F/U 4 weekly Seek urgent care as needed. CMT: chiropractic manipulative therapy SMT: Spinal Manipulative Therapy F/D: Flexion Distraction MFR: Myofascial Release S-I: Sacroiliac MFTP: Myofascial Trigger Point NRS: Numeric Rating Scale N/T: Numbness/Tingling PIR: Post isometric relaxation /es/ MARIAN TREVIÑO [facility] CHIROPRACTOR Signed: 10/28/2023 11:55 MARIAN TREVIÑO [facility]
--- OUTSIDE RECORDS SUMMARY | 2024-08-04 16:56 | XMS_ITS | Encounter Summary ---
Author Name [facility] [place] [facility] [place] Address [address] [place] [address] Care Team Providers Care Retail Business Development Manager Name Role Phone CADEN DHALIWAL Primary Care Provider Unavailabl e Insurance Providers: [...] PLAN I Aug 19, 2019 PLAN I [id number] MEEK,GR ICEL PATIENT [employer] OPTIONS MEDICARE SUPPLEMEN MARCIA PLANM Y Aug 19, 2019 PLANMY [id number] MEEK,GR ICEL PATIENT [employer] HE[employer] OPTIONS MEDICARE SUPPLEMEN MARCIA AARP MEDIC ARE SUPPL Aug 19, 2019 PLAN MY [id number] MEEK,GR ICEL PATIENT AARP INS MEDICARE SUPPLEMEN MARCIA PLANM Y Aug 19, 2019 PLANMY [id number] [phone] MEEK,GR ICEL PATIENT AARP MED SUPP MEDICARE SUPPLEMEN MARCIA Jul 19, 2010 [facility] [id number] [phone] MEEK,GR ICEL PATIENT MEDICARE (WNR) MEDICARE () PART B Aug 19, 2008 PART B [id number] [phone] MEEK,GR ICEL PATIENT MEDICARE (WNR) MEDICARE () PART B Aug 19, 2008 PART B [id number] [phone] MEEK,GR ICEL PATIENT MEDICARE (WNR) MEDICARE () PART B Aug 19, 2008 PART B [id number] [phone] MEEK,GR ICEL PATIENT MEDICARE (WNR) MEDICARE () PART B Aug 19, 2008 PART B [id number] MEEK,GR ICEL PATIENT MEDICARE (WNR) MEDICARE () PART B Aug 19, 2008 PART B [id number] MEEK,GR ICEL PATIENT MEDICARE (WNR) MEDICARE () PART B Aug 19, 2008 PART B [id number] MEEK,GR ICEL PATIENT MEDICARE (WNR) MEDICARE () PART B Aug 19, 2008 PART B [id number] MEEK,GR ICEL PATIENT MEDICARE (WNR) MEDICARE () PART A December 18, 2003 PART A [id number] MEEK,GR ICEL PATIENT MEDICARE (WNR) MEDICARE () PART A December 18, 2003 PART A [id number] MEEK,GR ICEL PATIENT MEDICARE (WNR) MEDICARE () PART A December 18, 2003 PART A [id number] MEEK,GR ICEL PATIENT MEDICARE (WNR) MEDICARE () PART A December 18, 2003 PART A [id number] MEEK,GR ICEL PATIENT MEDICARE (WNR) MEDICARE () PART A December 18, 2003 PART A [id number] MEEK,GR ICEL PATIENT MEDICARE (WNR) MEDICARE () PART A December 18, 2003 PART A [id number] [phone] SABINE MEEK PATIENT MEDICARE (WNR) MEDICARE (M) PART A December 18, 2003 PART A [id number] SABINE MEEK PATIENT Selected Encounter This section includes the information on record at [place] for the Encounter. Date/Time Encounter Type Encounter Description Reason Provider Source Oct 28, 2023 09:00 AM DIAB MANAGE TRN PER [facility] ICD-10-CM E08.9 Diabetes due to underlying condition w/o complications RESHMA VEE E Encounter Template Text not used by [place] Assessments - Encounter Diagnoses This section includes the primary and secondary diagnoses documented for the Encounter. Date/Time Primary/Secondary Diagnosis Diagnosis Name Provider Source Oct 28, 2023 02:05 PM PRIMARY Diabetes due to underlying condition w/o complications [facility] [place] [facility] Oct 28, 2023 02:05 PM SECONDARY Type 2 diabetes mellitus without complications RESHMA VEE [place] [facility] [place] [facility] Plan of Treatment: Future Appointments (+ 6 months) and Future Tests (+/- 45 days) The Plan of Treatment section includes future care activities for the [facility] [place] [facility] This section includes future appointments and future orders which are active, pending or scheduled. Future Appointments This section includes appointments that were scheduled to occur 6 months from the date of the Encounter, up to a maximum of 20 appointments. The data comes from all [place] treatment facilities. Appointment Date/Time Appointment Type Appointme nt Facility Name Oct 30, 2023 09:00 AM AMBULATORY - [place]ICINE [place] [facility] [place] [facility] Nov 08, 2023 08:00 AM AMBULATORY - MEDICINE [place] [facility] [place] [facility] Nov 14, 2023 09:00 AM AMBULATORY - REHAB MEDICIN E [place] [facility] [place] [facility] Nov 15, 2023 09:00 AM AMBULATORY - MEDICINE [place] [facility] [place] [facility] Nov 15, 2023 09:30 AM AMBULATORY - MEDICINE [place] [facility] [place] [facility] Nov 18, 2023 11:00 AM AMBULATORY - MEDICINE [place] [facility] [place] [facility] Nov 25, 2023 10:00 AM AMBULATORY - MEDICINE [place] [facility] [place] [facility] Nov 27, 2023 09:30 AM AMBULATORY - MEDICINE [place] [facility] [place] [facility] Nov 28, 2023 09:00 AM AMBULATORY - MEDICINE [place] [facility] [place] [facility] Nov 28, 2023 10:00 AM AMBULATORY - PSYCHIATRY [facility] [place] [facility] Dec 05, 2023 09:00 AM AMBULATORY - REHAB MEDICIN E [facility] [place] [facility] Dec 05, 2023 09:30 AM AMBULATORY - MEDICINE [place] [facility] [place] [facility] Dec 09, 2023 09:30 AM AMBULATORY - MEDICINE [place] [facility] [place] [facility] Dec 09, 2023 11:30 AM AMBULATORY - MEDICINE [place] [facility] [place] [facility] Dec 12, 2023 11:30 AM AMBULATORY - NONE [facility] [place] [facility] Dec 16, 2023 01:00 PM AMBULATORY - PSYCHIATRY [facility] [place] [facility] December 23, 2023 01:00 PM AMBULATORY - PSYCHIATRY [facility] [place] [facility] December 31, 2023 09:00 AM AMBULATORY - MEDICINE [facility] [place] [facility] January 06, 2024 11:00 AM AMBULATORY - PSYCHIATRY [facility] [place] [facility] January 06, 2024 01:00 PM AMBULATORY - PSYCHIATRY [facility] [place] [facility] Lab Results: +/- 30 days of the encounter This section includes the Chemistry and Hematology Lab Results on record with [place] for the patient. Radiology Reports and Pathology Reports are provided separately, in subsequent sections. Lab Results This section contains the Chemistry/Hematology Results that were resulted 30 days before or 30 daysafter the date of the Encounter. Date/Time Source Result Type Result - Unit Interpretation Reference Range Comment Nov 15, 2023 10:10 AM [place] [facility] [place] [facility] VITAMIN B12 Specimen Type: SERUM No comment entered. Ordering Provider: WALE DHALIWAL Report Released Date/Time: Nov 15, 2023 09:56 AM Reporting Lab: [place] [facility] [place] [address] [address] Performing Lab: [facility] [address] [facility] [address] VITAMIN B12 806 pg/mL 200-900 Nov 15, 2023 10:10 AM [facility] MICROALBUMIN CREATININE RATIO PANEL Specimen Type: URINE No comment entered. Ordering Provider: WALE DHALIWAL Report Released Date/Time: Nov 15, 2023 09:56 AM Reporting Lab: [facility] [address] [facility] [address] Performing Lab: [facility] [address] [facility] [address] MICROALBUMIN/C REATININE RATIO canc mg/g 0-29.9 MICROALBUMIN,Q UANTITATIVE < 0.5 mg/dL RR UNAVAIL CREATININE URINE 34.74 mg/dL Nov 15, 2023 10:10 AM [facility] HEMOGLOBIN A1C PANEL Specimen Type: BLOOD No comment entered. Ordering Provider: WALE DHALIWAL Report Released Date/Time: Nov 15, 2023 09:56 AM Reporting Lab: [facility] [address] [facility] [address] Performing Lab: [facility] [address] [facility] [address] HEMOGLOBIN A1C 6.1 H 4.0-5.6 Nov 15, 2023 10:10 AM [facility] VITAMIN D (25-OH) Specimen Type: SERUM No comment entered. Ordering Provider: WALE DHALIWAL Report Released Date/Time: Nov 15, 2023 09:56 AM Reporting Lab: [facility] [address] [facility] [address] Performing Lab: [facility] [address] [address] VITAMIN D (25-OH) 54 ng/mL H 20-50 Nov 15, 2023 10:10 AM [facility] BASIC METABOLIC PANEL (non-fasting) Specimen Type: SERUM No comment entered. Ordering Provider: WALE DHALIWAL Report Released Date/Time: Nov 15, 2023 09:56 AM Reporting Lab: [facility] [address] [facility] [address] Performing Lab: [address] [address] UREA NITROGEN 6 mg/dL L 7-25 GLUCOSE 168 mg/dL H 65-100 SODIUM 134 mmol/L L 135-145 POTASSIUM 4.3 mmol/L 3.5-5.0 CHLORIDE 99 mmol/L L 100-110 CO2 25 meq/L 20-30 CREATININE, Serum 0.66 mg/dL 0.50-1.40 eGFR(CKD-EPI 2020) >90 mL/min >60 Oct 28, 2023 09:26 AM [facility] GLUCOSE, Fingerstick Specimen Type: BLOOD Comment: For GLU FinTest performed by: Linda Vee For GLU Fin Meter #: [id number] Ordering Provider: WALE DHALIWAL Report Released Date/Time: Oct 28, 2023 10:19 AM Reporting Lab: [facility] [address] [facility] [address] Performing Lab: [address] [address] GLUCOSE, Fingerstick 178 mg/dL H 65-100 Social History: Smoking Status (Most current) and Tobacco Use (All prior to encounter date) This section includes the most current, and the historical, smoking and tobacco- related health factors from the [place] facility where the Encounter took place. Current Smoking Status This section includes the most current smoking, or tobacco-related health factor, from the [place] facility where the Encounter took place. Date/Time Current Smoking Status Comment [facility] Feb 08, 2023 10:00 AM VA-TOBACCO FORMER USER [facility] Tobacco Use History This section includes a history of the smoking, or tobacco-related health factors, that were collected on or before the date of the Encounter. The data comes from the [place] facility where the Encounter took place. Date/Time Smoking Status/Tobac co Use Comment [facility] Feb 08, 2023 10:00 AM [place]-TOBACCO QUIT 15 YRS OR MORE [facility] Mar 06, 2022 02:30 PM VA-TOBACCO FORMER USER [facility] [place] [facility] Mar 06, 2022 02:30 PM VA-TOBACCO QUIT 15 YRS OR MORE [place] [facility] [place] [facility] Apr 04, 2021 10:28 AM VA-TOBACCO NEVER USED [place] [facility] [place] [facility] May 03, 2020 02:00 PM VA-TOBACCO NEVER USED [place] [facility] [place] [facility] Feb 25, 2019 08:14 AM VA-TOBACCO FORMER USER [facility] [place] [facility] Feb 25, 2019 08:14 AM VA-TOBACCO QUIT 5 TO < 15 YRS [facility] [place] [facility] Apr 04, 2018 10:41 AM QUIT TOBACCO USE 1-7 YEARS AGO [facility] [place] [facility] Oct 28, 2017 10:18 AM QUIT TOBACCO USE 1-7 YEARS AGO [facility] [place] [facility] Jan 22, 2017 01:08 PM QUIT TOBACCO USE 1-7 YEARS AGO [facility] [place] [facility] Jul 18, 2016 01:34 PM QUIT TOBACCO USE 1-7 YEARS AGO [facility] [place] [facility] January 10, 2016 10:32 AM QUIT TOBACCO USE 1-7 YEARS AGO [facility] [place] [facility] Oct 13, 2015 11:05 AM QUIT TOBACCO USE 1-7 YEARS AGO [facility] [place] [facility] Oct 19, 2014 01:53 PM QUIT TOBACCO USE > 7 YEARS AGO [facility] [place] [facility] January 02, 2014 01:30 AM QUIT TOBACCO USE IN PAST YEAR [facility] [place] [facility] Jun 18, 2013 09:00 AM CURRENT SMOKER 6 cigarettes qd [facility] [place] [facility] Jun 18, 2013 09:00 AM V1-PT DECLINES TOBACCO CESSATION MEDS [facility] [place] [facility] Jun 18, 2013 09:00 AM V1-PT NOT INTERESTED IN QUIT TOBACCO USE [facility] [place] [facility] December 24, 2012 10:51 AM V1-PT DECLINES REF TO TOBACCO CESS PRGM [place] [facility] [place] [facility] December 24, 2012 10:51 AM V1-PT DECLINES TOBACCO CESSATION MEDS [facility] December 24, 2012 10:51 AM V1-PT THINKING ABOUT QUIT TOBACCO USE [facility] Jul 15, 2012 10:19 AM QUIT TOBACCO USE IN PAST YEAR [facility] Jan 25, 2012 05:02 PM QUIT TOBACCO USE IN PAST YEAR [facility] Sep 28, 2011 10:09 AM CURRENT SMOKER 5 cigarettes a day [facility] Jun 15, 2011 02:23 PM V1-PT DECLINES REF TO TOBACCO CESS PRGM [facility] Jun 15, 2011 02:23 PM V1-PT READY TO QUIT TOBACCO USE [facility] Apr 13, 2011 10:31 AM V1-PT DECLINES REF TO TOBACCO CESS PRGM [facility] Apr 13, 2011 10:31 AM V1-PT RECEIVES TOBACCO CESS MEDS OUTSIDE [facility] Apr 13, 2011 10:31 AM V1-PT THINKING ABOUT QUIT TOBACCO USE [facility] Oct 16, 2010 08:52 AM QUIT TOBACCO USE IN PAST YEAR [facility] May 12, 2010 02:08 PM V1-PT DECLINES REF TO TOBACCO CESS PRGM [facility] May 12, 2010 02:08 PM V1-PT READY TO QUIT TOBACCO USE [facility] May 12, 2010 12:45 PM CURRENT SMOKER 3 cigarettes a day [facility] Radiology Reports: +/- 30 days of [...] the Encounter. The data comes from all [facility] facilities. Date/Time Radiology Report Provider Source Nov 15, 2023 10:22 AM ELBOW 3 OR MORE VIEWS(LEFT): MEEK,PEBBLES M [id number] -[id number] F Exm Date: NOV 15, 2023@10:22 Req Phys: CADEN DHALIWAL Loc: CWM/NO/PACT 6 WH (Req'g Loc) Img Loc: [facility] 1 Service: Unknown (Case [id number] COMPLETE) ELBOW 3 OR MORE VIEWS(LEFT) (RAD Detailed) CPT:47555 Reason for Study: pain and swelling left elbow Clinical History: 73yo woman with h/o traumatic injury in 20s, Report Status: Verified Date Reported: NOV 15, 2023 Date Verified: NOV 15, 2023 Etiquette Teacher E-Sig:/ES/NEMO RODRIGUEZ JR Report: Study: AP, lateral, [...] Primary Interpreting Staff: NEMO RODRIGUEZ JR, Radiologist (Etiquette Teacher) /NEMO WEISS JR [facility] Encounter Notes: All associated encounter notes This section contains the clinical notes associated to the Encounter. Date/Time Encounter Note(s) Provider Source Oct 28, 2023 02:05 PM ADDENDUM: LOCAL TITLE: Addendum STANDARD TITLE: ADDENDUM DATE OF NOTE: OCT 28, 2023@14:05:48 ENTRY DATE: OCT 28, 2023@14:05:49 AUTHOR: LINDA VEE EXP COSIGNER: URGENCY: STATUS: COMPLETED Dr. Dhaliwal, Arvonia no longer receives RXs for test strips and she has not said anything about it, when I asked her. She states she is buying over the counter test strips, however, the RX was not listed in her record to see when [facility] Please send an updated RX for them. She was started on a [employer] Pro to view her blood sugars over the next 14 days and we will have her return to download and review it today. This will give us much more information what is happening with her blood sugars. She reports they are fluctuating, however, it was hard to tell since she did not bring her meter for download. Thank you. /es/ LINDA VEE RN,BSN, [facility] DIABETES AUTOMOTIVE SERVICE CONSULTANT, RN Signed: 10/28/2023 14:08 Receipt Acknowledged By: 04/07/2024 10:33 /es/ CADEN DHALIWAL M.D. PHYSICIAN --- Original Document --- 10/28/23 CONSULT REPORT/DIABETES EDU: DIABETES EDUCATION DOCUMENTATION DIABETES SELF-MANAGEMENT PROGRAM Intake Assessment Demographics: Patient Name: PEBBLES MEEK Age: 73 Sex: FEMALE Race: DECLINED TO ANSWER MARITAL STATUS - Introduction: Arvonia identified with 2 identifiers: [X] Full Name [X] Date of [ ] Address [ ] [facility] ID Card PATIENT PHONE - PHONE NUMBER [CELLULAR] - Is patient phone number correct, if not, enter below: Arvonia's phone number: PEBBLES MEEK [address], [place], [address] REASON FOR EDUCATION VISIT TODAY: Type 2 diabetes, diagnosed in 2005. Does not remember exactly when diagnosed. Was initially started on insulin for a period of time and was being evaluated for bariatric surgery before she went on a keto-diet and was able to lose enough weight to stop insulin. Now being treated with Metformin 1,000 mg twice a day. reports feeling anxious about her blood sugars fluctuating and running higher in the mornings. We discussed how this is common to occur based on anatomy of the body overnight. Arvonia tends to fast between the hours of 5:30- 6 pm until 12-1 pm. reports she has fasted for 3-7 days at a time in the past. MOST RECENT LABS: HEMOGLOBIN A1C TREND Collection DT Spec HGBA1c 07/26/2023 10:01 BLOOD 6.1 H 01/28/2023 09:07 BLOOD 6.7 H 08/02/2022 08:48 BLOOD 6.2 H 02/28/2022 14:07 BLOOD 6.0 H 12/18/2021 09:09 BLOOD 5.7 H CHEM 7 TREND LAB CUMULATIVE SELECTED Collection DT Spec GLUCOSE BUN CREATIN Sodium K+/Pot CL CO2 08/09/2023 11:01 SERUM 217 H 10 0.67 135 4.6 99 L 24 07/26/2023 10:01 SERUM 150 H 11 0.69 140 5.2 H 104 26 06/27/2023 10:25 SERUM 0.66 01/28/2023 09:07 SERUM 216 H 11 0.76 140 4.8 103 25 08/02/2022 08:48 SERUM 243 H 13 0.77 136 5.0 102 26 Collection DT Spec eGFR 07/20/2009 10:54 SERUM >60 03/29/2009 17:26 SERUM >60 03/10/2009 09:48 SERUM >60 11/04/2008 10:58 SERUM >60 08/31/2008 17:02 SERUM >60 LAB CUMULATIVE SELECTED 2 No selection items chosen for this component. CHEM 7 Results Collection DT Spec Sodium K+/Pot CL CO2 GLUCOSE BUN eGFR 08/09/2023 11:01 SERUM 135 4.6 99 L [...] H 9 >60 05/03/2004 14:37 SYNOV 108 LIPID PANEL TREND Collection DT Spec CHOL HDL CHO/HDL LDL-c TRIG 07/26/2023 10:01 SERUM 210 H 102 H 2.1 90 91 01/28/2023 09:07 SERUM 230 H 116 H 2.0 94 98 08/02/2022 08:48 SERUM 217 H 80 H 2.7 117 101 06/26/2021 12:10 SERUM 207 H 93 H 2.2 86 142 07/08/2020 13:52 SERUM 199 65 H 3.1 101 163 H CREATININE-EGFR 08/09/23 11:01 0.67 07/26/23 10:01 0.69 06/27/23 10:25 0.66 EGFR - NONE FOUND WEIGHT: 148.5 lb [67.36 kg] (09/13/2023 11:34) HEIGHT: 61 in [154.9 cm] (09/13/2023 11:34) BMI: 28.1 Source of referral/primary care provider: (X) Outpatient Name of Referring Provider: Dr. Dhaliwal Living arrangements: X Alone Possible barriers to learning: X None Diabetes health history: Years old at diagnosis Diagnosed: Type of diabetes: X Type 2- many years ago, can't remember how old she was Allergies: No Allergy Assessment Substance use/abuse: Cigarettes Alcohol Marijuana Other None DIABETIC-RELATED CHRONIC COMPLICATIONS EYES: Comments: KIDNEYS: Comments: FEET/LEGS/SKIN: Comments: CARDIOVASCULAR/CEREBROVASCU LAR: Comments: OTHER MEDICAL CONCERNS: Diabetes related illnesses or hospitalizations in the past year: Comments: Diabetes Distress Support: On a scale of 1-6 where 1 is no problem and 6 is a very serious problem, rate the following Feeling overwhelmed by the demands of living with diabetes. Feeling that I am failing my diabetes routine. DIABETES MANAGEMENT Diet In the last 12 months, were there times when the food for you just did not last and there was no money to buy more? Current Meal Plan: Does fasting diet and starts to eat at 12- 1 pm and stops eating at night between 5:30-6 pm. breakfast: Nothing, drinks coffee after 10 pm (black, decaf, ice) lunch: when out will have ac, egg and cheese wrap or at home will have a Mediterranean meal (sourcrout, olives, feta cheese, Katerina chi) or cabbage soup dinner: Ingraham (steamed) with vegetables, or chicken or turkey over rice snacks: Mangos, eating avocados every day, does not snack often, may occasionally get a donut Beverages consumed: water with lemon, seltzer water, Goal weight desired: lbs Exercise/activity: Type: a little bit Frequency: Duration: Level: Limitations: Had right knee replacement surgery in 2005, and then revised surgery in 2012. Going to Chiropractor and PT for this. DIABETES MEDICATIONS: Metformin 1,000 mg, 1 tab twice a day. STORAGE OF INSULIN/OTHER INJECTABLES: INJECTIONS SITES: SITES VIEWED: ANY EVIDENCE OF LIPOHYPERTROPHY History of hypoglycemia: Reports that she has had symptoms of highs and lows and sometimes she will mix up her symptoms. We also discussed how her risk of hypoglycemia is much lower now that she is being treated with Metformin and not insulin. Symptoms: Frequency: Typical treatment: Medic ID: Driving instructions: Has Glucagon kit: Monitoring: Did not bring meter with her today to download. Checking glucose 2x/day. Admits she wants to check 2x/day and does not have enough test strips. Needs a RX updated since she has not had a recent RX sent to her. She is paying for them out of pocket. SMBG/ What are your BG targets? Fastin-130 mg/dl; 2 hours after meals: 140-180 mg/dl Sensor Glucose/What are your SG TIR targets? 70% What is your A1c target? 7.0% Learning limitations/special education needs: None Cultural influences: None Health beliefs/attitudes/feelings about diabetes: None Will significant other participate in program? No Prior diabetes education: Laura Aguila & Amairani Pandey ASSESSMENT: Kindly referred by Dr. Dhaliwal. Arvonia was referred based on her anxiety with elevated glucose. Arvonia did not bring her meter to download and we were unable to review her blood sugar data. Encouraged that she bring this to next appointment. Ghazala also reports she no longer receives RXs for test strips and they are not listed as a RX in her record, therefore, will send a message to have an updated RX sent. Ghazala has been paying out of pocket for test strips. She does want to check 2x/day, which is quite reasonable for some one with Type 2 diabetes, trying to control it with weight and diet changes. Ghazala continues to fast between the hours of 6 pm until 12 pm. And she tries to eat lower carbohydrates. Occasionally, she admits to eating a donut. Her last A1C was 6.1% in July. Today, C.O.D. Biller started Ghazala on a [employer] Pro sensor to help Ghazala have some insight into her blood sugars patterns. Ghazala is scheduled to return in 2-3 weeks to review her sensor download at this time. Ghazala will keep a record of her blood sugars and diet intake for the next 2 weeks that she wears the sensor and will remove it and bring it into the office when she returns to the office. Education plan/goals/objectives: Assessment/Scale: 1= needs instruction; 2= needs review; 3= comprehends barragan points; 4= demonstrates understanding/competency; NC= Not covered; N/A= not applicable Topics Learning Objectives: Diabetes Pathophysiology (define diabetes and identify own type of diabetes; list 2 options for treating diabetes) Dates Covered & Assessment: - 10/28/23; Healthy Eating (Describe effect of type, amount and timing of food on blood glucose; list 3 methods for planning meals) Dates Covered & Assessment: - 10/28/23; Being Active (State effect of exercise on blood glucose levels) Dates Covered & Assessment: - 10/28/23; Taking Medication (State effect of diabetes medicines on diabetes; name diabetes medication taking, action and side effects) Dates Covered & Assessment: - 10/28/23; Monitoring Glucose (Identify recommended blood glucose targets and personal targets) Dates Covered & Assessment: - 10/28/23; Acute Complications (List symptoms and treatment of hyper- and hypoglycemia, DKA, sick day guidelines and guidelines for severe weather or situation crisis and diabetes supply management) Dates Covered & Assessment: - 10/28/23; Chronic Complications (Define the relationship of blood glucose levels to mcfp complications of diabetes and screening and preventative measures) Dates Covered & Assessment: - 10/28/23; Lifestyle and Healthy Coping (Describe life style and healthy coping strategies to promote diabetes self-management) Dates Covered & Assessment: - 10/28/23; Diabetes Distress and Support (Recognize diabetes Distress and be able to identify support options) Dates Covered & Assessment: - 10/28/23; HEALTH GOAL #1: In order to meet this goal, I will: Wear the Freestyle LibrePro sensor for the next 14 days and keep a record of blood sugars and food intake. HEALTH GOAL #2: In order to meet this goal, I will: Clinical or Quality of Life outcome baseline: TEACHING MATERIALS GIVEN: Information about the LibrePro sensor. Education: -Reviewed target blood sugars. -Reviewed differences between symptoms of hypoglycemia and hyperglycemia. -Reviewed importance of bringing meter for download. INSTRUCTIONS GIVEN TO : -Please bring meter to future appointments for download. -Continue to check glucose 1-2x/day. -Will send a message that you are need of test strip RX. -Continue Metformin 1,000 mg, 1 tab twice a day. -Wearing the Freestyle LibrePro sensor for the next 14 days. -Keep record of blood sugars and food intake for the next 14 days. -Please call with any questions or concerns. Patient/Family Verbalized Understanding FUTURE APPOINTMENTS: 10/28/2023 09:00 CWM/NO/DIABETES EDU1 10/28/2023 11:00 CWM/NO/CHIROPRACTOR 10/30/2023 09:00 CWM/NO/CHIROPRACTOR 11/14/2023 09:00 CWM/NO/PHYSICAL THERAPY A 11/15/2023 09:00 CWM/NO/PACT 6 WH 11/25/2023 10:00 COM CARE-DENTAL GENERAL 11/28/2023 11:00 CWM/NO/DENTAL/DMD4 12/05/2023 09:00 CWM/NO/PHYSICAL THERAPY A 12/09/2023 11:30 COM CARE-GI GENERAL 04/17/2024 10:30 NHM/OPTOMETRY/BORASKI 05/05/2024 09:30 CWM/NO/PODIATRY A DM type is : Type 2 diabetes Length of Visit: 60 minutes /es/ LINDA VEE RN,BSN, [facility] DIABETES AUTOMOTIVE SERVICE CONSULTANT, RN Signed: 10/28/2023 14:03 Receipt Acknowledged By: 04/07/2024 10:33 /es/ CADEN DHALIWAL M.D. PHYSICIAN 10/30/2023 ADDENDUM STATUS: COMPLETED DIABETES SELF-MANAGEMENT EDUCATION AND SUPPORT (DSMES) PROGRAM OUSMANE PRO SENSOR PLACEMENT Arvonia presented for a visit today to place Freestyle Ousmane Pro sensor for Flash Glucose Monitoring System (FGMS) or blinded 14 day assessment of glucose patterns. The purpose of this is to identify Arvonia's glucose patterns and assess lows and highs to interim treatment decisions. Arvonia's name and were verified. Patient Name: PEBBLES MEEK : May INTERVENTION Explained the purpose of monitoring prior to insertion. -To obtain blood sugar readings on a continual basis for up to 14 days. -Knowledge of continuous glucose patterns will assist in treatment regimen for glycemia control. Instructions for use and precautions reviewed with Arvonia: -Prior to sensor placement, Arvonia was given an overview of CGM, instructions for use, and precautions, including anticipation that sensor is placed with a needle. -Insertion site could become infected, watch for signs and symptoms of infection several times per day. -Possible rash from adhesive used to adhere sensor to the skin. -Arvonia verbalized understanding and agreed to proceed. PREPARATION AND INSERTION: Site selected: Left arm, tricep area Area was cleaned with alcohol and allowed to dry. Barrier wipe was used to act as additional adhesive and protection. Sensor Serial Number: [id number] Expiration Date: 02/16/2024 The sensor was inserted successfully using proofer black and white provided disposable devices. Sensor scanned/started successfully with the [employer] Ousmane Pro reader. PLAN: -Arvonia instructed to test blood glucose 2-4x/day and keep detailed activity, food, and blood glucose logs including times of eating, blood glucose events, and type/length of activity. provided a template. - advised to remove the sensor if irritation, redness, swelling, or discomfort are present. -Arvonia instructed if device becomes dislodged or self-removed sensor to bring it into next appointment. Serial number was logged for standing operating procedure. -Arvonia will call the clinic with any questions or concerns. Clinic number provided: [phone] - will return to clinic in 14 days for data download. Estimated Removal Date: Oct -Arvonia repeated back instructions and precautions and agrees to all. FOLLOW UP APPOINTMENT: November 18, 2023 Time spent with face to face: minutes. CPT Code for Non-physicians: 61165 for education and training 30 mins HCPCS: Sensor: [id number], Transmitter: [id number] /es/ LINDA VEE RN,BSN, [facility] DIABETES AUTOMOTIVE SERVICE CONSULTANT, RN Signed: 10/30/2023 09:23 LINDA VEE [place] [facility] [place] [facility] Oct 28, 2023 08:56 AM DIABETOLOGY CONSULT: LOCAL TITLE: CONSULT REPORT/DIABETES EDU STANDARD TITLE: DIABETOLOGY CONSULT DATE OF NOTE: OCT 28, 2023@08:56 ENTRY DATE: OCT 28, 2023@08:56:51 AUTHOR: LINDA VEE COSIGNER: URGENCY: STATUS: COMPLETED CONSULT REPORT/DIABETES EDU Has ADDENDA DIABETES EDUCATION DOCUMENTATION DIABETES SELF-MANAGEMENT PROGRAM Intake Assessment Demographics: Patient Name: PEBBLES MEEK Age: 73 Sex: FEMALE Race: DECLINED TO ANSWER MARITAL STATUS - Introduction: Arvonia identified with 2 identifiers: [X] Full Name [X] Date of [ ] Address [ ] [place] ID Card PATIENT PHONE - PHONE NUMBER [CELLULAR] - Is patient phone number correct, if not, enter below: 's phone number: PEBBLES MEEK [address], [place], [address] REASON FOR EDUCATION VISIT TODAY: Type 2 diabetes, diagnosed in 2005. Does not remember exactly when diagnosed. Was initially started on insulin for a period of time and was being evaluated for bariatric surgery before she went on a keto-diet and was able to lose enough weight to stop insulin. Now being treated with Metformin 1,000 mg twice a day. reports feeling anxious about her blood sugars fluctuating and running higher in the mornings. We discussed how this is common to occur based on anatomy of the body overnight. tends to fast between the hours of 5:30- 6 pm until 12-1 pm. Arvonia reports she has fasted for 3-7 days at a time in the past. MOST RECENT LABS: HEMOGLOBIN A1C TREND Collection DT Spec HGBA1c 07/26/2023 10:01 BLOOD 6.1 H 01/28/2023 09:07 BLOOD 6.7 H 08/02/2022 08:48 BLOOD 6.2 H 02/28/2022 14:07 BLOOD 6.0 H 12/18/2021 09:09 BLOOD 5.7 H CHEM 7 TREND LAB CUMULATIVE SELECTED Collection DT Spec GLUCOSE BUN CREATIN Sodium K+/Pot CL CO2 08/09/2023 11:01 SERUM 217 H 10 0.67 135 4.6 99 L 24 07/26/2023 10:01 SERUM 150 H 11 0.69 140 5.2 H 104 26 06/27/2023 10:25 SERUM 0.66 01/28/2023 09:07 SERUM 216 H 11 0.76 140 4.8 103 25 08/02/2022 08:48 SERUM 243 H 13 0.77 136 5.0 102 26 Collection DT Spec eGFR 07/20/2009 10:54 SERUM >60 03/29/2009 17:26 SERUM >60 03/10/2009 09:48 SERUM >60 11/04/2008 10:58 SERUM >60 08/31/2008 17:02 SERUM >60 LAB CUMULATIVE SELECTED 2 No selection items chosen for this component. CHEM 7 Results Collection DT Spec Sodium K+/Pot CL CO2 GLUCOSE BUN eGFR 08/09/2023 11:01 SERUM 135 4.6 99 L [...] H 9 >60 05/03/2004 14:37 SYNOV 108 LIPID PANEL TREND Collection DT Spec CHOL HDL CHO/HDL LDL-c TRIG 07/26/2023 10:01 SERUM 210 H 102 H 2.1 90 91 01/28/2023 09:07 SERUM 230 H 116 H 2.0 94 98 08/02/2022 08:48 SERUM 217 H 80 H 2.7 117 101 06/26/2021 12:10 SERUM 207 H 93 H 2.2 86 142 07/08/2020 13:52 SERUM 199 65 H 3.1 101 163 H CREATININE-EGFR 08/09/23 11:01 0.67 07/26/23 10:01 0.69 06/27/23 10:25 0.66 EGFR - NONE FOUND WEIGHT: 148.5 lb [67.36 kg] (09/13/2023 11:34) HEIGHT: 61 in [154.9 cm] (09/13/2023 11:34) BMI: 28.1 Source of referral/primary care provider: (X) Outpatient Name of Referring Provider: Dr. Dhaliwal Living arrangements: X Alone Possible barriers to learning: X None Diabetes health history: Years old at diagnosis Diagnosed: Type of diabetes: X Type 2- many years ago, can't remember how old she was Allergies: No Allergy Assessment Substance use/abuse: Cigarettes Alcohol Marijuana Other None DIABETIC-RELATED CHRONIC COMPLICATIONS EYES: Comments: KIDNEYS: Comments: FEET/LEGS/SKIN: Comments: CARDIOVASCULAR/CEREBROVASCU LAR: Comments: OTHER MEDICAL CONCERNS: Diabetes related illnesses or hospitalizations in the past year: Comments: Diabetes Distress Support: On a scale of 1-6 where 1 is no problem and 6 is a very serious problem, rate the following Feeling overwhelmed by the demands of living with diabetes. Feeling that I am failing my diabetes routine. DIABETES MANAGEMENT Diet In the last 12 months, were there times when the food for you just did not last and there was no money to buy more? Current Meal Plan: Does fasting diet and starts to eat at 12- 1 pm and stops eating at night between 5:30-6 pm. breakfast: Nothing, drinks coffee after 10 pm (black, decaf, ice) lunch: when out will have ac, egg and cheese wrap or at home will have a Mediterranean meal (sourcrout, olives, feta cheese, Katerina chi) or cabbage soup dinner: [place] (steamed) with vegetables, or chicken or turkey over rice snacks: Mangos, eating avocados every day, does not snack often, may occasionally get a donut Beverages consumed: water with lemon, seltzer water, Goal weight desired: lbs Exercise/activity: Type: a little bit Frequency: Duration: Level: Limitations: Had right knee replacement surgery in 2005, and then revised surgery in 2012. Going to Chiropractor and PT for this. DIABETES MEDICATIONS: Metformin 1,000 mg, 1 tab twice a day. STORAGE OF INSULIN/OTHER INJECTABLES: INJECTIONS SITES: SITES VIEWED: ANY EVIDENCE OF LIPOHYPERTROPHY History of hypoglycemia: Reports that she has had symptoms of highs and lows and sometimes she will mix up her symptoms. We also discussed how her risk of hypoglycemia is much lower now that she is being treated with Metformin and not insulin. Symptoms: Frequency: Typical treatment: Medic ID: Driving instructions: Has Glucagon kit: Monitoring: Did not bring meter with her today to download. Checking glucose 2x/day. Admits she wants to check 2x/day and does not have enough test strips. Needs a RX updated since she has not had a recent RX sent to her. She is paying for them out of pocket. SMBG/ What are your BG targets? Fastin-130 mg/dl; 2 hours after meals: 140-180 mg/dl Sensor Glucose/What are your SG TIR targets? 70% What is your A1c target? 7.0% Learning limitations/special education needs: None Cultural influences: None Health beliefs/attitudes/feelings about diabetes: None Will significant other participate in program? No Prior diabetes education: Laura Aguila & Amairani Pandey ASSESSMENT: Kindly referred by Dr. Dhaliwal. Ghazala was referred based on her anxiety with elevated glucose. Ghazala did not bring her meter to download and we were unable to review her blood sugar data. Encouraged that she bring this to next appointment. Ghazala also reports she no longer receives RXs for test strips and they are not listed as a RX in her record, therefore, will send a message to have an updated RX sent. Ghazala has been paying out of pocket for test strips. She does want to check 2x/day, which is quite reasonable for some one with Type 2 diabetes, trying to control it with weight and diet changes. Ghazala continues to fast between the hours of 6 pm until 12 pm. And she tries to eat lower carbohydrates. Occasionally, she admits to eating a donut. Her last A1C was 6.1% in July. Today, C.O.D. Biller started Ghazala on a BRAINDIGIT Pro sensor to help Ghazala have some insight into her blood sugars patterns. Ghazala is scheduled to return in 2-3 weeks to review her sensor download at this time. Ghazala will keep a record of her blood sugars and diet intake for the next 2 weeks that she wears the sensor and will remove it and bring it into the office when she returns to the office. Education plan/goals/objectives: Assessment/Scale: 1= needs instruction; 2= needs review; 3= comprehends barragan points; 4= demonstrates understanding/competency; NC= Not covered; N/A= not applicable Topics Learning Objectives: Diabetes Pathophysiology (define diabetes and identify own type of diabetes; list 2 options for treating diabetes) Dates Covered & Assessment: - 10/28/23; Healthy Eating (Describe effect of type, amount and timing of food on blood glucose; list 3 methods for planning meals) Dates Covered & Assessment: - 10/28/23; Being Active (State effect of exercise on blood glucose levels) Dates Covered & Assessment: - 10/28/23; Taking Medication (State effect of diabetes medicines on diabetes; name diabetes medication taking, action and side effects) Dates Covered & Assessment: - 10/28/23; Monitoring Glucose (Identify recommended blood glucose targets and personal targets) Dates Covered & Assessment: - 10/28/23; Acute Complications (List symptoms and treatment of hyper- and hypoglycemia, DKA, sick day guidelines and guidelines for severe weather or situation crisis and diabetes supply management) Dates Covered & Assessment: - 10/28/23; Chronic Complications (Define the relationship of blood glucose 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 to 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 HEALTH GOAL #2: In order to meet this goal, I will: Clinical or Quality of Life outcome baseline: TEACHING MATERIALS GIVEN: Information about the LibrePro sensor. Education: -Reviewed target blood sugars. -Reviewed differences between symptoms of hypoglycemia and hyperglycemia. -Reviewed importance of bringing meter for download. INSTRUCTIONS GIVEN TO : -Please bring meter to future appointments for download. -Continue to check glucose 1-2x/day. -Will send a message that you are need of test strip RX. -Continue Metformin 1,000 mg, 1 tab twice a day. -Wearing the Freestyle LibrePro sensor for the next 14 days. -Keep record of blood sugars and food intake for the next 14 days. -Please call with any questions or concerns. Patient/Family Verbalized Understanding FUTURE APPOINTMENTS: 10/28/2023 09:00 CWM/NO/DIABETES EDU1 10/28/2023 11:00 CWM/NO/CHIROPRACTOR 10/30/2023 09:00 CWM/NO/CHIROPRACTOR 11/14/2023 09:00 CWM/NO/PHYSICAL THERAPY A 11/15/2023 09:00 CWM/NO/PACT 6 WH 11/25/2023 10:00 COM CARE-DENTAL GENERAL 11/28/2023 11:00 CWM/NO/DENTAL/DMD4 12/05/2023 09:00 CWM/NO/PHYSICAL THERAPY A 12/09/2023 11:30 COM CARE-GI GENERAL 04/17/2024 10:30 NHM/OPTOMETRY/BORASKI 05/05/2024 09:30 CWM/NO/PODIATRY A DM type is : Type 2 diabetes Length of Visit: 60 minutes /jeana/ LINDA VEE RN,BSN, [facility] DIABETES AUTOMOTIVE SERVICE CONSULTANT, RN Signed: 10/28/2023 14:03 Receipt Acknowledged By: 04/07/2024 10:33 /jeana/ CADEN DHALIWAL M.D. PHYSICIAN 10/28/2023 ADDENDUM STATUS: COMPLETED Dr. Dhaliwal, no longer receives RXs for test strips and she has not said anything about it, when I asked her. She states she is buying over the counter test strips, however, the RX was not listed in her record to see when she last received them from the [place]. Please send an updated RX for them. She was started on a Freestyle Ousmane Pro to view her blood sugars over the next 14 days and we will have her return to download and review it today. This will give us much more information what is happening with her blood sugars. She reports they are fluctuating, however, it was hard to tell since she did not bring her meter for download. Thank you. /jeana/ LINDA VEE RN,BSN, [facility] DIABETES AUTOMOTIVE SERVICE CONSULTANT, RN Signed: 10/28/2023 14:08 Receipt Acknowledged By: 04/07/2024 10:33 /jeana/ CADEN DHALIWAL M.D. PHYSICIAN 10/30/2023 ADDENDUM STATUS: COMPLETED DIABETES SELF-MANAGEMENT EDUCATION AND SUPPORT (DSMES) PROGRAM OUSMANE PRO SENSOR PLACEMENT presented for a visit today to place Freestyle Ousmane Pro sensor for Flash Glucose Monitoring System (FGMS) or blinded 14 day assessment of glucose patterns. The purpose of this is to identify Arvonia's glucose patterns and assess lows and highs to interim treatment decisions. Arvonia's name and were verified. Patient Name: PEBBLES MEEK : May INTERVENTION Explained the purpose of monitoring prior to insertion. -To obtain blood sugar readings on a continual basis for up to 14 days. -Knowledge of continuous glucose patterns will assist in treatment regimen for glycemia control. Instructions for use and precautions reviewed with Arvonia: -Prior to sensor placement, was given an overview of CGM, instructions for use, and precautions, including anticipation that sensor is placed with a needle. -Insertion site could become infected, watch for signs and symptoms of infection several times per day. -Possible rash from adhesive used to adhere sensor to the skin. -Arvonia verbalized understanding and agreed to proceed. PREPARATION AND INSERTION: Site selected: Left arm, tricep area Area was cleaned with alcohol and allowed to dry. Barrier wipe was used to act as additional adhesive and protection. Sensor Serial Number: [id number] Expiration Date: 02/16/2024 The sensor was inserted successfully using proofer black and white provided disposable devices. Sensor scanned/started successfully with the [employer] Ousmane Pro reader. PLAN: - instructed to test blood glucose 2-4x/day and keep detailed activity, food, and blood glucose logs including times of eating, blood glucose events, and type/length of activity. provided a template. - advised to remove the sensor if irritation, redness, swelling, or discomfort are present. -Arvonia instructed if device becomes dislodged or self-removed sensor to bring it into next appointment. Serial number was logged for standing operating procedure. -Arvonia will call the clinic with any questions or concerns. Clinic number provided: [phone] -Arvonia will return to clinic in 14 days for data download. Estimated Removal Date: Oct -Arvonia repeated back instructions and precautions and agrees to all. FOLLOW UP APPOINTMENT: November 18, 2023 Time spent with face to face: minutes. CPT Code for Non-physicians: 65077 for education and training 30 mins HCPCS: Sensor: [id number], Transmitter: [id number] /es/ LINDA VEE RN,BSN, [facility] DIABETES AUTOMOTIVE SERVICE CONSULTANT, RN Signed: 10/30/2023 09:23 [facility] VEE [facility]
--- OUTSIDE RECORDS SUMMARY | 2024-08-04 16:56 | XMS_ITS ---
Author Name [facility] Address [address] [place] [address] Care Team Providers Care Staff Midwife/Apprenticeship Director Name Role Phone CADEN FELIZ Primary Care [...] PLAN I Aug 19, 2019 PLAN I [id number] [phone] MEEK,SABINE ICEL PATIENT [employer] MEDICARE SUPPLEMEN MARCIA PLANM Y Aug 19, 2019 PLANMY [id number] MEEK,GR ICEL PATIENT [employer] OPTIONS MEDICARE SUPPLEMEN MARCIA AARP MEDIC ARE SUPPL Aug 19, 2019 PLAN MY [id number] [phone] MEEK,GR ICEL PATIENT A[employer] INS MEDICARE SUPPLEMEN MARCIA PLANM Y Aug 19, 2019 PLANMY [id number] MEEK,GR ICEL PATIENT AARP MED SUPP MEDICARE SUPPLEMEN MARCIA Jul 19, 2010 [facility] [id number] [phone] MEEK,GR ICEL PATIENT MEDICARE (WNR) MEDICARE () PART B Aug 19, 2008 PART B [id number] [phone] MEEK,GR ICEL PATIENT MEDICARE (WNR) MEDICARE () PART B Aug 19, 2008 PART B [id number] MEEK,GR ICEL PATIENT MEDICARE (WNR) MEDICARE () PART B Aug 19, 2008 PART B [id number] MEEK,GR ICEL PATIENT MEDICARE (WNR) MEDICARE () PART B Aug 19, 2008 PART B [id number] MEEK,GR ICEL PATIENT MEDICARE (WNR) MEDICARE () PART B Aug 19, 2008 PART B [id number] [phone] MEEK,GR ICEL PATIENT MEDICARE (WNR) MEDICARE () PART B Aug 19, 2008 PART B [id number] MEEK,GR ICEL PATIENT MEDICARE (WNR) MEDICARE () PART B Aug 19, 2008 PART B [id number] MEEK,GR ICEL PATIENT MEDICARE (WNR) MEDICARE () PART A December 18, 2003 PART A [id number] MEEK,GR ICEL PATIENT MEDICARE (WNR) MEDICARE () PART A December 18, 2003 PART A [id number] MEEK,GR ICEL PATIENT MEDICARE (WNR) MEDICARE () PART A December 18, 2003 PART A [id number] [phone] MEEK,GR ICEL PATIENT MEDICARE (WNR) MEDICARE () PART A December 18, 2003 PART A [id number] MEEK,GR ICEL PATIENT MEDICARE (WNR) MEDICARE () PART A December 18, 2003 PART A [id number] [phone] MEEK,GR ICEL PATIENT MEDICARE (WNR) MEDICARE () PART A December 18, 2003 PART A [id number] SABINE MEEK PATIENT MEDICARE (WNR) MEDICARE (M) PART A December 18, 2003 PART A [id number] SABINE MEEK PATIENT Selected Encounter This section includes the information on record at [place] for the Encounter. Date/Time Encounter Type Encounter Description Reason Provider Source Oct 24, 2023 09:00 AM SELF CARE MNGMENT TRAINING PHYSICAL THERAPY ICD-10-CM S33.6XXS Sprain of sacroiliac joint, SALLY Barton IHE Encounter Template Text not used by [place] Assessments - Encounter Diagnoses This section includes the primary and secondary diagnoses documented for the Encounter. Date/Time Primary/Secondary Diagnosis Diagnosis Name Provider Source Oct 24, 2023 03:10 PM PRIMARY Sprain of sacroiliac joint, SALLY Barton [facility] [place] [facility] Plan of Treatment: Future Appointments (+ 6 months) and Future Tests (+/- 45 days) The Plan of Treatment section includes future care activities for the patient from all [place] treatmentfacilities. This section includes future appointments and future orders which are active, pending or scheduled. Future Appointments This section includes appointments that were scheduled to occur 6 months from the date of the Encounter, up to a maximum of 20 appointments. The data comes from all [place] treatment facilities. Appointment Date/Time Appointment Type Appointme nt Facility Name Oct 28, 2023 09:00 AM AMBULATORY - MEDICINE [facility] [place] [facility] Oct 28, 2023 11:00 AM AMBULATORY - MEDICINE [facility] [place] [facility] Oct 30, 2023 09:00 AM AMBULATORY - MEDICINE [facility] [place] [facility] Nov 08, 2023 08:00 AM AMBULATORY - MEDICINE [facility] [place] [facility] Nov 14, 2023 09:00 AM AMBULATORY - REHAB MEDICIN E [facility] [place] [facility] Nov 15, 2023 09:00 AM AMBULATORY - MEDICINE [facility] [place] [facility] Nov 15, 2023 09:30 AM AMBULATORY - MEDICINE [facility] [place] [facility] Nov 18, 2023 11:00 AM [...] - MEDICINE [facility] [place] [facility] Dec 12, 2023 11:30 AM AMBULATORY - NONE [facility] [place] [facility] Dec 16, 2023 01:00 PM AMBULATORY - PSYCHIATRY [facility] [place] [facility] December 23, 2023 01:00 PM AMBULATORY - PSYCHIATRY [facility] [place] [facility] December 31, 2023 09:00 AM AMBULATORY - MEDICINE [facility] [place] [facility] Lab Results: +/- 30 days of the encounter This section includes the Chemistry and Hematology Lab Results on record with [place] for the patient. Radiology Reports and Pathology Reports are provided separately, in subsequent sections. Lab Results This section contains the Chemistry/Hematology Results that were resulted 30 days before or 30 daysafter the date of the Encounter. Date/Time Source Result Type Result - Unit Interpretation Reference Range Comment Nov 15, 2023 10:10 AM [facility] [place] [facility] VITAMIN B12 Specimen Type: SERUM No comment entered. Ordering Provider: WALE FELIZ Report Released Date/Time: Nov 15, 2023 09:56 AM Reporting Lab: [facility] [place] [facility] [address] [facility] [address] Performing Lab: [facility] [address] VITAMIN B12 806 pg/mL 200-900 Nov 15, 2023 10:10 AM [facility] MICROALBUMIN CREATININE RATIO PANEL Specimen Type: URINE No comment entered. Ordering Provider: WALE FELIZ Report Released Date/Time: Nov 15, 2023 09:56 AM Reporting Lab: [facility] [address] [facility] [address] [facility] [address] MICROALBUMIN/C REATININE RATIO canc mg/g 0-29.9 MICROALBUMIN,Q UANTITATIVE < 0.5 mg/dL RR UNAVAIL CREATININE URINE 34.74 mg/dL Nov 15, 2023 10:10 AM [facility] VITAMIN D (25-OH) Specimen Type: SERUM No comment entered. Ordering Provider: WALE FELIZ Report Released Date/Time: Nov 15, 2023 09:56 AM Reporting Lab: [address] [address] Performing Lab: [address] [address] VITAMIN D (25-OH) 54 ng/mL H 20-50 Nov 15, 2023 10:10 AM [facility] HEMOGLOBIN A1C PANEL Specimen Type: BLOOD No comment entered. Ordering Provider: WALE FELIZ Report Released Date/Time: Nov 15, 2023 09:56 AM Reporting [facility]: [facility] [address] [facility]: [facility] [address] HEMOGLOBIN A1C 6.1 H 4.0-5.6 Nov 15, 2023 10:10 AM [facility] BASIC METABOLIC PANEL (non-fasting) Specimen Type: SERUM No comment entered. Ordering Provider: WALE FELIZ Report Released Date/Time: Nov 15, 2023 09:56 AM Reporting Lab: [address] [address] Performing Lab: [facility] [address] [address] UREA NITROGEN 6 mg/dL L 7-25 GLUCOSE 168 mg/dL H 65-100 SODIUM 134 mmol/L L 135-145 POTASSIUM 4.3 mmol/L 3.5-5.0 CHLORIDE 99 mmol/L L 100-110 CO2 25 meq/L 20-30 CREATININE, Serum 0.66 mg/dL 0.50-1.40 eGFR(CKD-EPI 2020) >90 mL/min >60 Oct 28, 2023 09:26 AM [facility] GLUCOSE, Fingerstick Specimen Type: BLOOD Comment: For GLU FinTest performed by: Linda Vee For GLU Fin Meter #: [id number] Ordering Provider: WALE FELIZ Report Released Date/Time: Oct 28, 2023 10:19 AM Reporting Lab: [facility] [address] [address] Performing Lab: [address] [address] GLUCOSE, Fingerstick 178 mg/dL H 65-100 Social History: Smoking Status (Most current) and Tobacco Use (All prior to encounter date) This section includes the most current, and the historical, smoking and tobacco- related health factors from the [place] facility where the Encounter took place. Current Smoking Status This section includes the most current smoking, or tobacco-related health factor, from the [place] facility where the Encounter took place. Date/Time Current Smoking Status Comment Rosamaria williamson Feb 08, 2023 10:00 AM VA-TOBACCO FORMER USER [facility] Tobacco Use History This section includes a history of the smoking, or tobacco-related health factors, that were collected on or before the date of the Encounter. The data comes from the [place] facility where the Encounter took place. Date/Time Smoking Status/Tobac co Use Comment [facility] Feb 08, 2023 10:00 AM MS-TOBACCO QUIT 15 YRS OR MORE [facility] Mar 06, 2022 02:30 PM VA-TOBACCO FORMER USER [facility] Mar 06, 2022 02:30 PM VA-TOBACCO QUIT 15 YRS OR MORE [facility] [place] [facility] Apr 04, 2021 10:28 AM VA-TOBACCO NEVER USED [facility] [place] [facility] May 03, 2020 02:00 PM VA-TOBACCO NEVER USED [facility] [place] [facility] Feb 25, 2019 08:14 AM VA-TOBACCO FORMER USER [facility] [place] [facility] Feb 25, 2019 08:14 AM VA-TOBACCO QUIT 5 TO < 15 YRS [facility] [place] [facility] Apr 04, 2018 10:41 AM QUIT TOBACCO USE 1-7 YEARS AGO [facility] [place] [facility] Oct 28, 2017 10:18 AM QUIT TOBACCO USE 1-7 YEARS AGO [facility] [place] [facility] Jan 22, 2017 01:08 PM QUIT TOBACCO USE 1-7 YEARS AGO [facility] [place] [facility] Jul 18, 2016 01:34 PM QUIT TOBACCO USE 1-7 YEARS AGO [facility] [place] [facility] January 10, 2016 10:32 AM QUIT TOBACCO USE 1-7 YEARS AGO [facility] [place] [facility] Oct 13, 2015 11:05 AM QUIT TOBACCO USE 1-7 YEARS AGO [facility] [place] [facility] Oct 19, 2014 01:53 PM QUIT TOBACCO USE > 7 YEARS AGO [facility] [place] [facility] January 02, 2014 01:30 AM QUIT TOBACCO USE IN PAST YEAR [facility] [place] [facility] Jun 18, 2013 09:00 AM CURRENT SMOKER 6 cigarettes qd [facility] [place] [facility] Jun 18, 2013 09:00 AM V1-PT DECLINES TOBACCO CESSATION MEDS [facility] [place] [facility] Jun 18, 2013 09:00 AM V1-PT NOT INTERESTED IN QUIT TOBACCO USE [facility] [place] [facility] December 24, 2012 10:51 AM V1-PT DECLINES REF TO TOBACCO CESS PRGM [facility] [place] [facility] December 24, 2012 10:51 AM V1-PT DECLINES TOBACCO CESSATION MEDS [facility] [place] [facility] December 24, 2012 10:51 AM V1-PT THINKING ABOUT QUIT TOBACCO USE [facility] [place] [facility] Jul 15, 2012 10:19 AM QUIT TOBACCO USE IN PAST YEAR [facility] Jan 25, 2012 05:02 PM QUIT TOBACCO USE IN PAST YEAR [facility] Sep 28, 2011 10:09 AM CURRENT SMOKER 5 cigarettes a day [facility] Jun 15, 2011 02:23 PM V1-PT DECLINES REF TO TOBACCO CESS PRGM [facility] Jun 15, 2011 02:23 PM V1-PT READY TO QUIT TOBACCO USE [facility] Apr 13, 2011 10:31 AM V1-PT DECLINES REF TO TOBACCO CESS PRGM [facility] Apr 13, 2011 10:31 AM V1-PT RECEIVES TOBACCO CESS MEDS OUTSIDE [facility] Apr 13, 2011 10:31 AM V1-PT THINKING ABOUT QUIT TOBACCO USE [facility] Oct 16, 2010 08:52 AM QUIT TOBACCO USE IN PAST YEAR [facility] May 12, 2010 02:08 PM V1-PT DECLINES REF TO TOBACCO CESS PRGM [facility] May 12, 2010 02:08 PM V1-PT READY TO QUIT TOBACCO USE [facility] May 12, 2010 12:45 PM CURRENT SMOKER 3 cigarettes a day [facility] Radiology Reports: +/- 30 days of [...] Encounter. The data comes from all [facility] facilities. Date/Time Radiology Report Provider Source Nov 15, 2023 10:22 AM ELBOW 3 OR MORE VIEWS(LEFT): PEBBLES MEEK [id number] -[id number] F Exm Date: NOV 15, 2023@10:22 Req Phys: AMIE FELIZSYLWIA Stephen Loc: [facility]/NO/PACT 6 [facility] (Req'g Loc) Img Loc: [facility] 1 Service: Unknown (Case [id number] COMPLETE) ELBOW 3 OR MORE VIEWS(LEFT) (RAD Detailed) CPT:56534 Reason for Study: pain and swelling left elbow Clinical History: 73yo woman with h/o traumatic injury in 20s, Report Status: Verified Date Reported: NOV 15, 2023 Date Verified: NOV 15, 2023 Refund Clerk E-Sig:/ES/NEMO RODRIGUEZ JR Report: Study: AP, lateral, [...] Primary Interpreting Staff: NEMO RODRIGUEZ JR, Radiologist (Refund Clerk) /NEMO WEISS JR [facility] Encounter Notes: All associated encounter notes This section contains the clinical notes associated to the Encounter. Date/Time Encounter Note(s) Provider Source Oct 24, 2023 03:08 PM PHYSICAL MEDICINE REHAB TREATMENT PLAN NOTE: LOCAL TITLE: PHYSICAL THERAPY PROGRESS NOTE STANDARD TITLE: PHYSICAL MEDICINE REHAB TREATMENT PLAN NOTE DATE OF NOTE: OCT 24, 2023@15:08 ENTRY DATE: OCT 24, 2023@15:09:05 AUTHOR: SALLY LOW COSIGNER: URGENCY: STATUS: COMPLETED Initial Evaluation date: 09/26/23 Progress Note Date: n/a Treatment #: 4 Treatment time: 30min Diagnosis: sprain SI joint Provider: Isra PT Treatment Precautions: n/a SUBJECTIVE: It's going well, I'm doing all the exercises and doing the tissue stuff with a tennis ball I think it's all helping OBJECTIVE: Pain to L hip/LE still radicular into mid thigh, but rated lower as 0-2/10 Shoe insert not available yet, pt stating she went for a walk outdoors but feels a little unstable like she needs some support is interested in trying trek poles she used them here in therapy when she was coming for dizziness THERAPEUTIC EXERCISE: MINUTES: 20 - nustep x8min L1 - PN with alternating hip flex 2x10 - clamshells with yellow band 2x10 - hip abd in s/l yellow band 2x10 - sit to/from stand with AA some discomfort to L si area 3x5 GAIT TRAINING: MINUTES: 8 - pt educated in use of trek poles in clinic ambulated in clinic with good gait sequencing 200'x1 with poles would benefit from use of them outdoors/hiking SELF CARE/EDUCATION: MINUTES:-- - updated HEP as below PROGRESS CHECK: ROM: *Pain Lumbar flex: 100% pain/slight radiation to L glut Extension: 100% Lat flex: L SB NO PAIN Hip PROM WNL pain noted with hip flex to 100 mild pain to L glut (was at 90deg at eval), L hip ir tight 12deg on L, L hip er pain to [...] report radicular complaints to be reduced by 25%- MET 2.) L hip strength 4+/5 to aid in negotiating stairs- NOT MET, strength still remains the same 3.)Rx HEP in 4 appointments- MET so far but no standing activities performed yet HEP: Access Code: [email or web address] URL: [email or web address] Date: 10/24/2023 Prepared by: GEOVANNA [employer] Exercises - Supine Single Knee to Chest [...] 5 reps - 30sec hold - Supine March - 1 x daily - 7 x weekly - 2 sets - 5 reps - 2sec hold - Clamshell at Wall with Resistance - 1 x daily - 7 x weekly - 2 sets - 10 reps - Sidelying Hip Abduction with Resistance at Thighs - 1 x daily - 7 x weekly - 2 sets - 10 reps - Sidelying ITB Stretch off Table - 1 x daily - 7 x weekly - 3 sets - 5 reps - 30sec hold - Sit to Stand - 1 x daily - 7 x weekly - 2 sets - 10 reps Patient education was provided for all aspects of care during this clinical encounter. ASSESSMENT: Tolerated treatment well, progress is slow but ROM has improved, strength still limited ?d/t pain with some of the activities, combination of CIH's are helping with pain management, pt has met 2 out of 3 goals updated goes for next progress check as follows: GOALS: 4 weeks 1.)Pt to report radicular complaints to be reduced by 75% 2.) L hip strength 4+/5 to aid in negotiating stairs 3.)Rx I with progression of HEP in 3 more visits PLAN: continue per plan of care, begin standing activities next session, issue trek poles and show inserts when available /jeana/ SALLY LOW PT PHYSICAL THERAPIST Signed: 10/28/2023 10:17 SALLY LOW [facility]
[2024-08-04 16:57] LABS: Basophils Absolute Auto 0.1 X10*3/uL (0.0-0.2); Eosinophils Absolute Auto 0.2 X10*3/uL (0.0-0.4); Eosinophils Percent Auto 3.6 % (0-4); Hematocrit 37.3 % (37.0-47.0); Imm Gran Abs Auto 0.02 X10*3/uL (0.00-0.03); Imm Gran Pct Auto 0.4 % (0.0-0.4); Lymphocytes Absolute Auto 1.3 X10*3/uL (1.2-4.9); Lymphocytes Percent Auto 24.3 % (20-40); Mean Corpuscular HGB Conc 34.9 g/dl (31.0-35.0); Mean Corpuscular Hemoglobin 32.3 pg (27.0-33.0); Mean Corpuscular Volume 92.6 fL (80.0-98.0); Monocytes Absolute Auto 0.4 X10*3/uL (0.1-1.2); Monocytes Percent Auto 7.9 % (2-11); Neutrophils Absolute Auto 3.3 x10*3/uL (2.0-8.3); Neutrophils Percent Auto 62.8 % (45-73); Platelet Count 242 X10*3/uL (160-400); Red Blood Count 4.03 X10*6/uL (4.20-5.50); Red Cell Distribution Width 11.8 % (11.0-16.0); White Blood Count 5.2 X10*3/uL (4.8-10.8)
--- OUTSIDE RECORDS SUMMARY | 2024-08-04 16:58 | XMS_ITS ---
Author Name [facility] Organization [facility] Address [address] [place] [address] Care Team Providers Care Optimization Engineer Name Role Phone CADEN FELIZ Primary Care [...] PLAN I Aug 19, 2019 PLAN I [id number] MEEK,GR ICEL PATIENT [employer] OPTIONS MEDICARE SUPPLEMEN MARCIA PLANM Y Aug 19, 2019 PLANMY [id number] [phone] MEEK,GR ICEL PATIENT [employer] OPTIONS MEDICARE SUPPLEMEN MARCIA AARP MEDIC ARE SUPPL Aug 19, 2019 PLAN MY [id number] [phone] MEEK,GR ICEL PATIENT AARP INS MEDICARE SUPPLEMEN MARCIA PLANM Y Aug 19, 2019 PLANMY [id number] MEEK,GR ICEL PATIENT AARP MED SUPP MEDICARE SUPPLEMEN MARCIA Jul 19, 2010 [facility] [id number] MEEK,GR ICEL PATIENT MEDICARE (WNR) MEDICARE () PART B Aug 19, 2008 PART B [id number] MEEK,GR ICEL PATIENT MEDICARE (WNR) MEDICARE () PART B Aug 19, 2008 PART B [id number] [phone] MEEK,GR ICEL PATIENT MEDICARE (WNR) MEDICARE () PART B Aug 19, 2008 PART B [id number] [phone] MEEK,GR ICEL PATIENT MEDICARE (WNR) MEDICARE () PART B Aug 19, 2008 PART B [id number] MEEK,GR ICEL PATIENT MEDICARE (WNR) MEDICARE () PART B Aug 19, 2008 PART B [id number] MEEK,GR ICEL PATIENT MEDICARE (WNR) MEDICARE () PART B Aug 19, 2008 PART B [id number] MEEK,GR ICEL PATIENT MEDICARE (WNR) MEDICARE () PART B Aug 19, 2008 PART B [id number] MEEK,GR ICEL PATIENT MEDICARE (WNR) MEDICARE () PART A December 18, 2003 PART A [id number] [phone] MEEK,GR ICEL PATIENT MEDICARE (WNR) MEDICARE () PART A December 18, 2003 PART A [id number] [phone] MEEK,GR ICEL PATIENT MEDICARE (WNR) MEDICARE () PART A December 18, 2003 PART A [id number] MEEK,GR ICEL PATIENT MEDICARE (WNR) MEDICARE () PART A December 18, 2003 PART A [id number] MEEK,GR ICEL PATIENT MEDICARE (WNR) MEDICARE () PART A December 18, 2003 PART A [id number] MEEK,GR ICEL PATIENT MEDICARE (WNR) MEDICARE () PART A December 18, 2003 PART A [id number] [phone] SABINE MEEK PATIENT MEDICARE (WNR) MEDICARE (M) PART A December 18, 2003 PART A [id number] SABINE MEEK PATIENT Selected Encounter This section includes the information on record at MD for the Encounter. Date/Time Encounter Type Encounter Description Reason Provider Source Oct 30, 2023 09:00 AM MANUAL THERAPY 1/> [employer] ICD-10-CM M54.59 Other low back pain MARIAN TREVIÑO Darshan Encounter Template Text not used by MD Assessments - Encounter Diagnoses This section includes the primary and secondary diagnoses documented for the Encounter. Date/Time Primary/Secondary Diagnosis Diagnosis Name Provider Source Oct 30, 2023 02:27 PM PRIMARY Other low back pain MARIAN TREVIÑO [facility] Plan of Treatment: Future Appointments (+ 6 months) and Future Tests (+/- 45 days) The Plan of Treatment section includes future care activities for the patient from all MD treatmentfacilities. This section includes future appointments and future orders which are active, pending or scheduled. Future Appointments This section includes appointments that were scheduled to occur 6 months from the date of the Encounter, up to a maximum of 20 appointments. The data comes from all MD treatment facilities. Appointment Date/Time Appointment Type Appointme nt Facility Name Nov 08, 2023 08:00 AM AMBULATORY - MEDICINE MD [facility] Nov 14, 2023 09:00 AM AMBULATORY - REHAB MEDICIN [facility] Nov 15, 2023 09:00 AM AMBULATORY - MEDICINE MD [facility] Nov 15, 2023 09:30 AM AMBULATORY - MEDICINE MD [facility] Nov 18, 2023 11:00 AM AMBULATORY - MEDICINE MD [facility] Nov 25, 2023 10:00 AM AMBULATORY - MEDICINE MD [facility] Nov 27, 2023 09:30 AM AMBULATORY - MEDICINE MD [facility] Nov 28, 2023 09:00 AM AMBULATORY - MEDICINE MD [facility] Nov 28, 2023 10:00 AM AMBULATORY - PSYCHIATRY [facility] Dec 05, 2023 09:00 AM AMBULATORY [...] - NONE [facility] Dec 16, 2023 01:00 PM AMBULATORY - PSYCHIATRY [facility] December 23, 2023 01:00 PM AMBULATORY - PSYCHIATRY [facility] December 31, 2023 09:00 AM AMBULATORY - MEDICINE [facility] January 06, 2024 11:00 AM AMBULATORY - PSYCHIATRY [facility] January 06, 2024 01:00 PM AMBULATORY - PSYCHIATRY [facility] January 07, 2024 08:00 AM AMBULATORY - MEDICINE [facility] Lab Results: +/- 30 days of the encounter This section includes the Chemistry and Hematology Lab Results on record with MD for the patient. Radiology Reports and Pathology Reports are provided separately, in subsequent sections. Lab Results This section contains the Chemistry/Hematology Results that were resulted 30 days before or 30 daysafter the date of the Encounter. Date/Time Source Result Type Result - Unit Interpretation Reference Range Comment Nov 15, 2023 10:10 AM [facility] VITAMIN B12 Specimen Type: SERUM No comment entered. Ordering Provider: WALE FELIZ Report Released Date/Time: Nov 15, 2023 09:56 AM Reporting Lab: MD [facility] [address] [facility] [address] Performing Lab: [facility] [place] [address] [address] VITAMIN B12 806 pg/mL 200-900 Nov 15, 2023 10:10 AM [facility] MICROALBUMIN CREATININE RATIO PANEL Specimen Type: URINE No comment entered. Ordering Provider: WALE FELIZ Report Released Date/Time: Nov 15, 2023 09:56 AM Reporting Lab: [facility] [address] [facility] [address] Performing Lab: [facility] [address] [address] MICROALBUMIN/C REATININE RATIO canc mg/g 0-29.9 MICROALBUMIN,Q UANTITATIVE < 0.5 mg/dL RR UNAVAIL CREATININE URINE 34.74 mg/dL Nov 15, 2023 10:10 AM [facility] HEMOGLOBIN A1C PANEL Specimen Type: BLOOD No comment entered. Ordering Provider: WALE FELIZ Report Released Date/Time: Nov 15, 2023 09:56 AM Reporting Lab: [address] [address] Performing Lab: [address] [address] HEMOGLOBIN A1C 6.1 H 4.0-5.6 Nov 15, 2023 10:10 AM [facility] VITAMIN D (25-OH) Specimen Type: SERUM No comment entered. Ordering Provider: WALE FELIZ Report Released Date/Time: Nov 15, 2023 09:56 AM Reporting Lab: [address] [address] [facility]forming [facility] [address] VITAMIN D (25-OH) 54 ng/mL H 20-50 Nov 15, 2023 10:10 AM [facility] BASIC METABOLIC PANEL (non-fasting) Specimen Type: SERUM No comment entered. Ordering Provider: WALE FELIZ Report Released Date/Time: Nov 15, 2023 09:56 AM Reporting Lab: [address] [address] Performing Lab: [facility] [address] UREA NITROGEN 6 mg/dL L 7-25 GLUCOSE 168 mg/dL H 65-100 SODIUM 134 mmol/L L 135-145 POTASSIUM 4.3 mmol/L 3.5-5.0 CHLORIDE 99 mmol/L L 100-110 CO2 25 meq/L 20-30 CREATININE, Serum 0.66 mg/dL 0.50-1.40 eGFR(CKD-EPI 2020) >90 mL/min >60 Oct 28, 2023 09:26 AM [facility] GLUCOSE, Fingerstick Specimen Type: BLOOD Comment: For GLU FinTest performed by: Linda Vee For GLU Fin Meter #: [id number] Ordering Provider: WALE FELIZ Report Released Date/Time: Oct 28, 2023 10:19 AM Reporting Lab: [address] [address] Performing Lab: [address] [address] GLUCOSE, Fingerstick 178 mg/dL H 65-100 Social History: Smoking Status (Most current) and Tobacco Use (All prior to encounter date) This section includes the most current, and the historical, smoking and tobacco- related health factors from the MD facility where the Encounter took place. Current Smoking Status This section includes the most current smoking, or tobacco-related health factor, from the MD facility where the Encounter took place. Date/Time Current Smoking Status Comment [facility] Feb 08, 2023 10:00 AM MD-TOBACCO FORMER USER [facility] Tobacco Use History This section includes a history of the smoking, or tobacco-related health factors, that were collected on or before the date of the Encounter. The data comes from the MD facility where the Encounter took place. Date/Time Smoking Status/Tobac co Use Comment [facility] Feb 08, 2023 10:00 AM MD-TOBACCO QUIT 15 YRS OR MORE [facility] Mar 06, 2022 02:30 PM VA-TOBACCO FORMER USER [facility] Mar 06, 2022 02:30 PM MD-TOBACCO QUIT 15 YRS OR MORE [facility] Apr 04, 2021 10:28 AM VA-TOBACCO NEVER USED [facility] May 03, 2020 02:00 PM VA-TOBACCO NEVER USED [facility] Feb 25, 2019 08:14 AM VA-TOBACCO FORMER USER [facility] Feb 25, 2019 08:14 AM VA-TOBACCO QUIT 5 TO < 15 YRS [facility] Apr 04, 2018 10:41 AM QUIT TOBACCO USE 1-7 YEARS AGO [facility] Oct 28, 2017 10:18 AM QUIT TOBACCO USE 1-7 YEARS AGO [facility] Jan 22, 2017 01:08 PM QUIT TOBACCO USE 1-7 YEARS AGO [facility] Jul 18, 2016 01:34 PM QUIT TOBACCO USE 1-7 YEARS AGO [facility] January 10, 2016 10:32 AM QUIT TOBACCO USE 1-7 YEARS AGO [facility] Oct 13, 2015 11:05 AM QUIT TOBACCO USE 1-7 YEARS AGO [facility] Oct 19, 2014 01:53 PM QUIT TOBACCO USE > 7 YEARS AGO [facility] January 02, 2014 01:30 AM QUIT TOBACCO USE IN PAST YEAR [facility] Jun 18, 2013 09:00 AM CURRENT SMOKER 6 cigarettes qd [facility] Jun 18, 2013 09:00 AM V1-PT DECLINES TOBACCO CESSATION MEDS [facility] Jun 18, 2013 09:00 AM V1-PT NOT INTERESTED IN QUIT TOBACCO USE [facility] December 24, 2012 10:51 AM V1-PT DECLINES REF TO TOBACCO CESS PRGM [facility] December 24, 2012 10:51 AM V1-PT DECLINES TOBACCO CESSATION MEDS [facility] December 24, 2012 10:51 AM V1-PT THINKING ABOUT QUIT TOBACCO USE [facility] Jul 15, 2012 10:19 AM QUIT TOBACCO USE IN PAST YEAR [facility] Jan 25, 2012 05:02 PM QUIT TOBACCO USE IN PAST YEAR [facility] Sep 28, 2011 10:09 AM CURRENT SMOKER 5 cigarettes a day [facility] Jun 15, 2011 02:23 PM V1-PT DECLINES REF TO TOBACCO CESS PRGM [facility] Jun 15, 2011 02:23 PM V1-PT READY TO QUIT TOBACCO USE [facility] Apr 13, 2011 10:31 AM V1-PT DECLINES REF TO TOBACCO CESS PRGM [facility] Apr 13, 2011 10:31 AM V1-PT RECEIVES TOBACCO CESS MEDS OUTSIDE [facility] Apr 13, 2011 10:31 AM V1-PT THINKING ABOUT QUIT TOBACCO USE [facility] Oct 16, 2010 08:52 AM QUIT TOBACCO USE IN PAST YEAR [facility] May 12, 2010 02:08 PM [facility] 12, 2010 02:08 PM V1-PT READY TO QUIT TOBACCO USE [facility] May 12, 2010 12:45 PM CURRENT SMOKER 3 cigarettes a day [facility] Radiology Reports: +/- 30 days of the [...] the Encounter. The data comes from all [facility] facilities. Date/Time Radiology Report Provider Source Nov 15, 2023 10:22 AM ELBOW 3 OR MORE VIEWS(LEFT): PEBBLES MEEK [id number] -[id number] F Exm Date: NOV 15, 2023@10:22 Req Phys: CADEN FELIZ Pat Loc: C[facility]/NO/PACT 6 WH (Req'g Loc) Img Loc: [facility]/BUILDING 1 Service: Unknown (Case [id number] COMPLETE) ELBOW 3 OR MORE VIEWS(LEFT) (RAD Detailed) CPT:21324 Reason for Study: pain and swelling left elbow Clinical History: 73yo woman with h/o traumatic injury in 20s, Report Status: Verified Date Reported: NOV 15, 2023 Date Verified: NOV 15, 2023 Warehouse Checker E-Sig:/ES/NEMO RODRIGUEZ JR Report: Study: AP, lateral, [...] Primary Interpreting Staff: NEMO RODRIGUEZ JR, Radiologist (Warehouse Checker) /NEMO WEISS JR [facility] Encounter Notes: All associated encounter notes This section contains the clinical notes associated to the Encounter. Date/Time Encounter Note(s) Provider Source Oct 30, 2023 09:04 AM CHIROPRACTIC NOTE: LOCAL TITLE: CHIROPRACTOR PROGRESS NOTE STANDARD TITLE: CHIROPRACTIC NOTE DATE OF NOTE: OCT 30, 2023@09:04 ENTRY DATE: OCT 30, 2023@09:04:34 AUTHOR: MARIAN TREVIÑO COSIGNER: URGENCY: STATUS: COMPLETED PEBBLES MEEK Cristina is a 73 DECLINED TO ANSWER FEMALE with prior history of COMBAT SERVICE INDICATED: No POS: PERIOD OF SERVICE - OTHER OR NONE SERVICE BRANCH: [employer] Connected Disabilities with % Eligibility: Active Problem Long-term current use of anticoagul 06/27/2023 TACALI Gastro-esophageal reflux disease wi 01/11/2023 CADEN FELIZ Migraine G43.109 04/09/2022 [facility]ONES [facility]SE Vertigo H81.4 04/09/2022 [facility] NAFLD - Nonalcoholic fatty liver di 12/29/2021 CADEN FELIZ Vitamin D deficiency E55.9 08/16/2020 ELVIAARASHCADEN 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 12/21/2019 JAMIALVINOIMAN Urge incontinence of urine (SNOMED 01/12/2020 AMIE FELIZLE Osteopenia M85.9 07/18/2016 AMIE FELIZLE Sciatica M54.41 09/14/2015 AMIE FELIZLE Obesity E66.09 01/12/2016 CADEN FELIZ Chronic obstructive lung disease (S 08/30/2015 CADEN FELIZ Diabetes mellitus (SNOMED CT 078652 07/20/2015 JENN SRIVASTAVA Restless Leg Syndrome * (ICD-9-CM 3 07/15/2012 DIPAK JOSEPH Knee pain (SNOMED CT 2133190854) R5 03/26/2022 CADEN FELIZ Paroxysmal atrial fibrillation (SNO 08/30/2015 CADEN FELIZ Other and unspecified Sleep Apnea 7 07/21/2010 RBITNEY SOTO Hyperlipidemia (SNOMED CT 91718701) 08/30/2015 CADEN FELIZ Chronic anxiety (SNOMED CT 65066077 12/09/2020 JACUQE MISTRY Asthma (SNOMED CT 315977274) J45.99 08/25/2015 MARIUM HUERTA Chronic depression ([place] [address] 12/09/2020 JACQUE MISTRY PTSD - Post-traumatic stress disord 12/09/2020 JACQUE MISTRY Knee Joint replacement Status (Pros 08/30/2015 AMELIA HERNANDEZ Past Surgeries:, tubal ligation, left ankle fracture-has plate and screws, R forearm for necrosis, R knee arthroplasty HX osteonecrosis - R knee; R wrist Patient [facility] with report that she felt much improvement for a couple of days after the last visit.The pain returned and was burning pain in left hip area including posterior, lateral gluteals anterior pelvis and when it increases ithe sx includes the left lateral lower ribs. Followed by PT. Provocative: sitting; stairs; cleaning [...] in neck and decr bilat rotation Prior in home caregiver: yes, it was OK and for [...] Supine gluteal stretching as per palpation Objectives 10/30/23: Hypertonic tender Left gluteals, SI jt area, T/L and L/S, left [...] core stability, balance, and pain modulation. Visit 5 F/U 4 weekly Seek urgent care as needed. CMT: chiropractic manipulative therapy SMT: Spinal Manipulative Therapy F/D: Flexion Distraction MFR: Myofascial Release S-I: Sacroiliac MFTP: Myofascial Trigger Point NRS: Numeric Rating Scale N/T: Numbness/Tingling PIR: Post isometric relaxation /es/ MARIAN TREVIÑO D.[facility]. CHIROPRACTOR Signed: 10/30/2023 14:27 MARIAN TREVIÑO [facility]
--- OUTSIDE RECORDS SUMMARY | 2024-08-04 16:58 | XMS_ITS ---
Author Name [facility] [place] [facility] [place] [facility] [place] Address [address] [place] [address] Care Team Providers Care Operations Assistant Name Role Phone CADEN FELIZ Primary Care [...] PLAN I Aug 19, 2019 PLAN I [id number] MEEK,SABINE ICEL PATIENT [employer] OPTIONS MEDICARE SUPPLEMEN MARCIA PLANM Y Aug 19, 2019 PLANMY [id number] MEEK,GR ICEL PATIENT [employer] OPTIONS MEDICARE SUPPLEMEN MARCIA AARP MEDIC ARE SUPPL Aug 19, 2019 PLAN MY [id number] [phone] MEEK,GR ICEL PATIENT A[employer] INS MEDICARE SUPPLEMEN MARCIA PLANM Y Aug 19, 2019 PLANMY [id number] MEEK,GR ICEL PATIENT AARP MED SUPP MEDICARE SUPPLEMEN MARCIA Jul 19, 2010 PLANMY [id number] [phone] MEEK,GR ICEL PATIENT MEDICARE (WNR) MEDICARE () PART B Aug 19, 2008 PART B [id number] MEEK,GR ICEL PATIENT MEDICARE (WNR) MEDICARE () PART B Aug 19, 2008 PART B [id number] MEKE,GR ICEL PATIENT MEDICARE (WNR) MEDICARE () PART B Aug 19, 2008 PART B [id number] MEEK,GR ICEL PATIENT MEDICARE (WNR) MEDICARE () PART B Aug 19, 2008 PART B [id number] MEEK,GR ICEL PATIENT MEDICARE (WNR) MEDICARE () PART B Aug 19, 2008 PART B [id number] [phone] MEEK,GR ICEL PATIENT MEDICARE (WNR) MEDICARE () PART B Aug 19, 2008 PART B [id number] [phone] MEEK,GR ICEL PATIENT MEDICARE (WNR) MEDICARE () PART B Aug 19, 2008 PART B [id number] MEEK,GR ICEL PATIENT MEDICARE (WNR) MEDICARE () PART A December 18, 2003 PART A [id number] [phone] MEEK,GR ICEL PATIENT MEDICARE (WNR) MEDICARE () PART A December 18, 2003 PART A [id number] [phone] MEEK,GR ICEL PATIENT MEDICARE (WNR) MEDICARE () PART A December 18, 2003 PART A [id number] [phone] MEEK,GR ICEL PATIENT MEDICARE (WNR) MEDICARE () PART A December 18, 2003 PART A [id number] MEEK,GR ICEL PATIENT MEDICARE (WNR) MEDICARE () PART A December 18, 2003 PART A [id number] MEEK,GR ICEL PATIENT MEDICARE (WNR) MEDICARE () PART A December 18, 2003 PART A [id number] SABINE MEEK PATIENT MEDICARE (WNR) MEDICARE (M) PART A December 18, 2003 PART A [id number] SABINE MEEK PATIENT Selected Encounter This section includes the information on [place] at [place] for the Encounter. Date/Time Encounter Type Encounter Description Reason Pro vider Source Sep 17, 2023 12:00 PM Outpatient Encounter COMMUNITY CARE CONSULT IHE Encounter Template Text not used by [place] Plan of Treatment: Future Appointments (+ 6 months) and Future Tests (+/- 45 days) The Plan of Treatment section includes future care activities for the patient from all [place] treatmentfacilities. This section includes future appointments and [...] [facility] [place] [facility] Oct 01, 2023 09:00 AM AMBULATORY [facility] MEDICINE [facility] [place] [facility] Oct 02, 2023 10:30 AM AMBULATORY - [facility] [place] [facility] Oct 08, 2023 10:30 AM AM[facility]ULATORY [facility] [place] [facility] Oct 08, 2023 10:45 AM AM[facility]ULATORY [facility] [place] [facility] Oct 08, 2023 11:00 AM AMBULATORY - [facility] [place] [facility] Oct 09, 2023 10:00 AM AM[facility]ULATORY [facility] [place] [facility] Oct 17, 2023 09:00 AM AMBULATORY - [facility] MEDICIN [facility] [place] [facility] Oct 21, 2023 09:00 AM AMBULATORY [facility] [place] [facility] Oct 23, 2023 09:00 AM AM[facility]ULATORY [facility]IC[facility] [place] [facility] Oct 24, 2023 09:00 AM AMBULATORY - [facility] MEDICIN [facility] [place] [facility] Oct 28, 2023 09:00 AM AMBULATORY [facility]IC[facility] [place] [facility] Oct 28, 2023 11:00 AM AMBULATORY [facility]IC[facility] [place] [facility] Oct 30, 2023 09:00 AM AM[facility]ULATORY [facility] [place] [facility] Nov 08, 2023 08:00 AM AMBULATORY [facility] [place] [facility] Nov 14, 2023 09:00 AM AMBULATORY - [facility] MEDICIN [facility] [place] [facility] Nov 15, 2023 09:00 AM AMBULATORY [facility]ICINE [facility] [place] [facility] Nov 15, 2023 09:30 AM AM[facility]ULATORY [facility]IC[facility] [place] [facility] Nov 18, 2023 11:00 AM AM[facility]ULATORY [facility] [place] [facility] Nov 25, 2023 10:00 AM AM[place] [facility] [place] [facility] Social History: Smoking Status (Most [...] took place. Date/Time Current Smoking Status Comment [facility] Feb 08, 2023 10:00 AM VA-TOBACCO [place] [facility] [facility] Tobacco Use History This section includes a history of the smoking, or tobacco-related health factors, that were collected on or before the date of the Encounter. The data comes from the [place] facility where the Encounter took place. Date/Time Smoking Status/Tobac co Use Comment Facility Feb 08, 2023 10:00 AM VA-TOBACCO QUIT 15 YRS OR MORE [facility] [place] [facility] Mar 06, 2022 02:30 PM VA-TOBACCO FORMER USER [facility] [place] [facility] Mar 06, 2022 02:30 PM VA-TOBACCO QUIT 15 YRS OR MORE [facility] [place] [facility] Apr 04, 2021 10:28 AM VA-TOBACCO NEVER USED [facility] [place] [facility] May 03, 2020 02:00 PM VA-TOBACCO NEVER USED [place] [facility] [place] [facility] Feb 25, 2019 08:14 AM VA-TOBACCO FORMER USER [place] [facility] [place] [facility] Feb 25, 2019 08:14 AM VA-TOBACCO QUIT 5 TO < 15 YRS [place] [facility] [place] [facility] Apr 04, 2018 10:41 AM QUIT TOBACCO USE 1-7 YEARS AGO [place] [facility] [place] [facility] Oct 28, 2017 10:18 AM QUIT TOBACCO USE 1-7 YEARS AGO [place] [facility] [place] [facility] Jan 22, 2017 01:08 PM QUIT TOBACCO USE 1-7 YEARS AGO [place] [facility] [place] [facility] Jul 18, 2016 01:34 PM QUIT TOBACCO USE 1-7 YEARS AGO [place] [facility] [place] [facility] January 10, 2016 10:32 AM QUIT TOBACCO USE 1-7 YEARS AGO [place] [facility] [place] [facility] Oct 13, 2015 11:05 AM QUIT TOBACCO USE 1-7 YEARS AGO [place] [facility] [place] [facility] Oct 19, 2014 01:53 PM QUIT TOBACCO USE > 7 YEARS AGO [place] [facility] [place] [facility] January 02, 2014 01:30 AM QUIT TOBACCO USE IN PAST YEAR [place] [facility] [place] [facility] Jun 18, 2013 09:00 AM CURRENT SMOKER 6 cigarettes qd [place] [facility] [place] [facility] Jun 18, 2013 09:00 AM V1-PT [facility] [place] [facility] Jun 18, 2013 09:00 AM V1-PT NOT INTERESTED IN QUIT TOBACCO USE [place] [facility] [place] [facility] December 24, 2012 10:51 AM V1-PT DECLINES REF TO TOBACCO CESS PRGM [place] [facility] [place] [facility] December 24, 2012 10:51 AM V1-PT DECLINES TOBACCO CESSATION MEDS [place] [facility] [place] [facility] December 24, 2012 10:51 AM V1-PT THINKING ABOUT QUIT [facility]AC[facility] [place] [facility] Jul 15, 2012 10:19 AM QUIT TOBACCO USE IN [place]ST YEAR [place] [facility] Jan 25, 2012 05:02 PM QUIT TOBACCO USE IN PAST YEAR [facility] Sep 28, 2011 10:09 AM CURRENT SMOKER 5 cigarettes a day [facility] Jun 15, 2011 02:23 PM V1-PT DECLINES REF TO TOBACCO CESS PRGM [facility] Jun 15, 2011 02:23 PM V1-PT READY TO QUIT TOBACCO USE [facility] Apr 13, 2011 10:31 AM V1-PT DECLINES REF TO TOBACCO CESS PRGM [facility] Apr 13, 2011 10:31 AM V1-PT RECEIVES TOBACCO CESS MEDS OUTSIDE [facility] Apr 13, 2011 10:31 AM V1-PT THINKING ABOUT QUIT TOBACCO USE [facility] Oct 16, 2010 08:52 AM QUIT TOBACCO USE IN PAST YEAR [facility] May 12, 2010 02:08 PM V1-PT DECLINES REF TO TOBACCO [facility]ESS [facility] May 12, 2010 02:08 PM V1-PT READY TO QUIT TOBACCO USE [facility] May 12, 2010 12:45 PM CURRENT SMOKER 3 cigarettes a day [facility] Encounter Notes: All associated encounter notes This section contains the clinical notes associated to the Encounter. Date/Time Encounter Note(s) Provider Source Sep 17, 2023 12:00 PM NONVA CONSULT: LOCAL TITLE: COMMUNITY CARE-CONSULT RESULT NOTE STANDARD TITLE: NONVA CONSULT DATE OF NOTE: SEP 17, 2023@12:00 ENTRY DATE: OCT 30, 2023@11:37:18 AUTHOR: JERSEY MORAN EXP COSIGNER: URGENCY: STATUS: COMPLETED VistA Imaging - Scanned Document SCANNED DOCUMENT SIGNATURE NOT REQUIRED Electronically Filed: 10/30/2023 by: [employer] PROF[employer] JERSEY MORAN [facility]
--- OUTSIDE RECORDS SUMMARY | 2024-08-04 16:58 | XMS_ITS | Encounter Summary ---
Author Name [facility] [place] [facility] [place] Address [address] [place] [address] Care Team Providers Care Insurance Follow Up Specialist Name Role Phone CADEN FELIZ Primary [...] PLAN I Aug 19, 2019 PLAN I [id number] MEEK,GR ICEL PATIENT [employer] OPTIONS MEDICARE SUPPLEMEN MARCIA PLANM Y Aug 19, 2019 PLANMY [id number] [phone] MEEK,GR ICEL PATIENT [employer] OPTIONS MEDICARE SUPPLEMEN MARCIA AARP MEDIC ARE SUPPL Aug 19, 2019 PLAN MY [id number] MEEK,GR ICEL PATIENT AARP INS MEDICARE SUPPLEMEN MARCIA PLANM Y Aug 19, 2019 PLANMY [id number] MEEK,GR ICEL PATIENT AARP MED SUPP MEDICARE SUPPLEMEN MARCIA Jul 19, 2010 PLANMY [id number] [phone] MEEK,GR ICEL PATIENT MEDICARE (WNR) MEDICARE () PART B Aug 19, 2008 PART B [id number] [phone] MEEK,GR ICEL PATIENT MEDICARE (WNR) MEDICARE () PART B Aug 19, 2008 PART B [id number] [phone] MEEK,GR ICEL PATIENT MEDICARE (WNR) MEDICARE () PART B Aug 19, 2008 PART B [id number] MEEK,GR ICEL PATIENT MEDICARE (WNR) MEDICARE () PART B Aug 19, 2008 PART B [id number] [phone] MEEK,GR ICEL PATIENT MEDICARE (WNR) MEDICARE () PART B Aug 19, 2008 PART B [id number] MEEK,GR ICEL PATIENT MEDICARE (WNR) MEDICARE () PART B Aug 19, 2008 PART B [id number] MEEK,GR ICEL PATIENT MEDICARE (WNR) MEDICARE () PART B Aug 19, 2008 PART B [id number] MEEK,GR ICEL PATIENT MEDICARE (WNR) MEDICARE () PART A December 18, 2003 PART A [id number] [phone] MEEK,GR ICEL PATIENT MEDICARE (WNR) MEDICARE () PART A December 18, 2003 PART A [id number] MEEK,GR ICEL PATIENT MEDICARE (WNR) MEDICARE () PART A December 18, 2003 PART A [id number] MEEK,GR ICEL PATIENT MEDICARE (WNR) MEDICARE () PART A December 18, 2003 PART A [id number] MEEK,GR ICEL PATIENT MEDICARE (WNR) MEDICARE () PART A December 18, 2003 PART A [id number] [phone] MEEK,GR ICEL PATIENT MEDICARE (WNR) MEDICARE () PART A December 18, 2003 PART A [id number] [phone] SABINE MEEK PATIENT MEDICARE (WNR) MEDICARE (M) PART A December 18, 2003 PART A [id number] [phone] SABINE MEEK PATIENT Selected Encounter This section includes the information on record at [place] for the Encounter. Date/Time Encounter Type Encounter Description Reason Provider Source Nov 08, 2023 08:00 AM MECHANICAL TRACTION THERAPY CRNA ICD-10-CM M54.59 Other low back pain MARIAN TREVIÑO [facility] Encounter Template Text not used by [place] Assessments - Encounter Diagnoses This section includes the primary and secondary diagnoses documented for the Encounter. Date/Time Primary/Secondary Diagnosis Diagnosis Name Provider Source Nov 08, 2023 08:36 AM PRIMARY Other low back pain MARIAN TREVIÑO [place] [facility] Plan of Treatment: Future Appointments (+ 6 months) and Future Tests (+/- 45 days) The Plan of Treatment section includes future care activities for the patient from all [place] treatmentfacilities. This section includes future appointments and future orders which are active, pending or scheduled. Future Appointments This section includes appointments that were scheduled to occur 6 months from the date of the Encounter, up to a maximum of 20 appointments. The data comes from all [place] treatment facilities. Appointment Date/Time Appointment Type Appointme nt Facility Name Nov 14, 2023 09:00 AM AMBULAT[facility] - [facility] Nov 15, 2023 09:00 AM AM[place]ICINE [place] [facility] Nov 15, 2023 09:30 AM [place] [facility] Nov 18, 2023 11:00 AM AM[place]ORY [place] [facility] Nov 25, 2023 10:00 AM AM[place] [facility] Nov 27, 2023 09:30 AM [place]INE [place] [facility] Nov 28, 2023 09:00 AM [place] [facility] Nov 28, 2023 10:00 AM AMBULATORY - [place]IATRY [place] [facility] Dec 05, 2023 09:00 AM AMBULATORY [...] PSYCHIATRY [facility] January 07, 2024 08:00 AM [facility] January 09, 2024 09:00 AM AMBULATORY - PS[facility]CHIATRY [facility] Lab Results: +/- 30 days of the encounter This section includes the Chemistry and Hematology Lab Results on record with [place] for the patient. Radiology Reports and Pathology Reports are provided separately, in subsequent sections. Lab Results This section contains the Chemistry/Hematology Results that were resulted 30 days before or 30 daysafter the date of the Encounter. Date/Time Source Result Type Result - Unit Interpretation Reference Range Comment Nov 15, 2023 10:10 AM [place] [facility] VITAMIN B12 Specimen Type: SERUM No comment entered. Ordering Provider: WALE FELIZ Report Released Date/Time: Nov 15, 2023 09:56 AM Reporting Lab: [place] [facility] [address] [facility] [address] Performing [facility]: [facility] [address] [address] VITAMIN B12 806 pg/mL 200-900 Nov 15, 2023 10:10 AM [place] [facility] MICROALBUMIN CREATININE RATIO PANEL Specimen Type: URINE No comment entered. Ordering Provider: WALE FELIZ Report Released Date/Time: Nov 15, 2023 09:56 AM Reporting [facility] [address] [facility] [address] Performing Lab: [facility] [address] MICROALBUMIN/C REATININE RATIO canc mg/g 0-29.9 MICROALBUMIN,Q UANTITATIVE < 0.5 mg/dL RR UNAVAIL CREATININE URINE 34.74 mg/dL Nov 15, 2023 10:10 AM [facility] HEMOGLOBIN A1C PANEL Specimen Type: BLOOD No comment entered. Ordering Provider: WALE FELIZ Report Released Date/Time: Nov 15, 2023 09:56 AM Reporting Lab: [address] [address] Performing Lab: [address] [address] HEMOGLOBIN A1C 6.1 H 4.0-5.6 Nov 15, 2023 10:10 AM [facility] VITAMIN D (25-OH) Specimen Type: SERUM No comment entered. Ordering Provider: WALE FELIZ Report Released Date/Time: Nov 15, 2023 09:56 AM Reporting Lab: [facility] [address] [address] Performing [facility]: [facility] [address] VITAMIN D (25-OH) 54 ng/mL H 20-50 Nov 15, 2023 10:10 AM [facility] BASIC METABOLIC PANEL (non-fasting) Specimen Type: SERUM No comment entered. Ordering Provider: WALE FELIZ Report Released Date/Time: Nov 15, 2023 09:56 AM Reporting Lab: [address] [address] Performing Lab: [facility] [address] UREA NITROGEN 6 mg/dL L 7-25 GLUCOSE 168 mg/dL H 65-100 SODIUM 134 mmol/L L 135-145 POTASSIUM 4.3 mmol/L 3.5-5.0 CHLORIDE 99 mmol/L L 100-110 CO2 25 meq/L 20-30 CREATININE, Serum 0.66 mg/dL 0.50-1.40 eGFR(CKD-EPI 2020) >90 mL/min >60 Oct 28, 2023 09:26 AM [facility] GLUCOSE, Fingerstick Specimen Type: BLOOD Comment: For GLU FinTest performed by: Linda Vee For GLU Fin Meter #: [id number] Ordering Provider: WALE FELIZ Report Released Date/Time: Oct 28, 2023 10:19 AM Reporting Lab: [facility] [address] [facility] [address] Performing Lab: [address] [address] GLUCOSE, Fingerstick 178 mg/dL H 65-100 Social History: Smoking Status (Most current) and Tobacco Use (All prior to encounter date) This section includes the most current, and the historical, smoking and tobacco- related health factors from the [place] facility where the Encounter took place. Current Smoking Status This section includes the most current smoking, or tobacco-related health factor, from the [place] facility where the Encounter took place. Date/Time Current Smoking Status Comment [facility] Feb 08, 2023 10:00 AM VA-TOBACCO FORMER USER [facility] Tobacco Use History This section includes a history of the smoking, or tobacco-related health factors, that were collected on or before the date of the Encounter. The data comes from the [place] facility where the Encounter took place. Date/Time Smoking Status/Tobac co Use Comment [facility] Feb 08, 2023 10:00 AM VA-TOBACCO QUIT 15 YRS OR MORE [place] [facility] Mar 06, 2022 02:30 PM VA-TOBACCO FORMER USER [place] [facility] Mar 06, 2022 02:30 PM VA-TOBACCO QUIT 15 YRS OR MORE [facility] Apr 04, 2021 10:28 AM VA-TOBACCO NEVER USED [place] [facility] May 03, 2020 02:00 PM VA-TOBACCO NEVER USED [place] [facility] Feb 25, 2019 08:14 AM VA-TOBACCO FORMER USER [place] [facility] Feb 25, 2019 08:14 AM VA-TOBACCO QUIT 5 TO < 15 YRS [place] [facility] Apr 04, 2018 10:41 AM QUIT TOBACCO USE 1-7 YEARS AGO [facility] Oct 28, 2017 10:18 AM QUIT TOBACCO USE 1-7 YEARS AGO [facility] Jan 22, 2017 01:08 PM QUIT TOBACCO USE 1-7 YEARS AGO [facility] Jul 18, 2016 01:34 PM QUIT TOBACCO USE 1-7 YEARS AGO [facility] January 10, 2016 10:32 AM QUIT TOBACCO USE 1-7 YEARS AGO [place] [facility] Oct 13, 2015 11:05 AM QUIT TOBACCO USE 1-7 YEARS AGO [place] [facility] Oct 19, 2014 01:53 PM QUIT TOBACCO USE > 7 YEARS AGO [place] [facility] January 02, 2014 01:30 AM QUIT TOBACCO USE IN PAST YEAR [place] [facility] Jun 18, 2013 09:00 AM CURRENT SMOKER 6 cigarettes qd [place] [facility] Jun 18, 2013 09:00 AM V1-PT DECLINES TOBACCO CESSATION MEDS [place] [facility] Jun 18, 2013 09:00 AM V1-PT NOT INTERESTED IN QUIT TOBACCO USE [place] [facility] December 24, 2012 10:51 AM V1-PT DECLINES REF TO TOBACCO CESS PRGM [place] [facility] December 24, 2012 10:51 AM V1-PT DECLINES TOBACCO CESSATION MEDS [place] [facility] December 24, 2012 10:51 AM V1-PT THINKING ABOUT QUIT TOBACCO USE [place] [facility] Jul 15, 2012 10:19 AM QUIT TOBACCO USE IN PAST YEAR [facility] Jan 25, 2012 05:02 PM QUIT TOBACCO USE IN PAST YEAR [facility] Sep 28, 2011 10:09 AM CURRENT SMOKER 5 cigarettes a day [facility] Jun 15, 2011 02:23 PM V1-PT DECLINES REF TO TOBACCO CESS PRGM [facility] Jun 15, 2011 02:23 PM V1-PT READY TO QUIT TOBACCO USE [facility] Apr 13, 2011 10:31 AM V1-PT DECLINES REF TO TOBACCO CESS PRGM [facility] Apr 13, 2011 10:31 AM V1-PT RECEIVES TOBACCO CESS MEDS OUTSIDE [facility] Apr 13, 2011 10:31 AM V1-PT THINKING ABOUT QUIT TOBACCO USE [facility] Oct 16, 2010 08:52 AM QUIT TOBACCO USE IN PAST YEAR [facility] May 12, 2010 02:08 PM V1-PT DECLINES REF TO TOBACCO CESS PRGM [facility] May 12, 2010 02:08 PM V1-PT READY TO QUIT TOBACCO USE [facility] May 12, 2010 12:45 PM CURRENT SMOKER 3 cigarettes a day [facility] Radiology Reports: +/- 30 days [...] the Encounter. The data comes from all [facility] facilities. Date/Time Radiology Report Provider Source Nov 15, 2023 10:22 AM ELBOW 3 OR MORE VIEWS(LEFT): PEBBLES MEEK [id number] [id number] F Exm Date: NOV 15, 2023@10:22 Req Phys: CADEN FELIZ Loc: C[facility]/NO/PACT 6 [facility] (Req'g Loc) Img Loc: [facility]/BUILDING 1 Service: Unknown (Case [id number] COMPLETE) ELBOW 3 OR MORE VIEWS(LEFT) (RAD Detailed) CPT:01002 Reason for Study: pain and swelling left elbow Clinical History: 73yo woman with h/o traumatic injury in 20s, Report Status: Verified Date Reported: NOV 15, 2023 Date Verified: NOV 15, 2023 Neon Sign Erector E-Sig:/ES/NEMO RODRIGUEZ JR Report: Study: AP, lateral, [...] Primary Interpreting Staff: NEMO RODRIGUEZ JR, Radiologist (Neon Sign Erector) /EAD NEMO RODRIGUEZ JR [facility] Encounter Notes: All associated encounter notes This section contains the clinical notes associated to the Encounter. 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 12/21/2019 IMAN IRVING Urge incontinence of urine (SNOMED 01/12/2020 AMIE FELIZLE Osteopenia M85.9 07/18/2016 ELVIAAMIE ANTOINELE Sciatica M54.41 09/14/2015 AMIE FELIZLE Obesity E66.09 01/12/2016 CADEN FELIZ Chronic obstructive lung disease (S 08/30/2015 CADEN FELIZ Diabetes mellitus (SNOMED CT 072450 07/20/2015 JENN SRIVASTAVA Restless Leg Syndrome * (ICD-9-CM 3 07/15/2012 DIPAK JOSEPH Knee pain (SNOMED CT 4123925705) R5 03/26/2022 CADEN FELIZ Paroxysmal atrial fibrillation (SNO 08/30/2015 CADEN FELIZ Other and unspecified Sleep Apnea 7 07/21/2010 BRITNEY SOTO Hyperlipidemia (SNOMED CT 55208979) 08/30/2015 CADEN FELIZ Chronic anxiety (SNOMED CT 17736071 12/09/2020 JACQUE MISTRY Asthma (SNOMED CT 360466162) J45.99 08/25/2015 MARIUM HUERTA Chronic depression ([place] [address] 12/09/2020 JACQUE MISTRY PTSD - Post-traumatic stress disord 12/09/2020 JACQUE MISTRY Knee Joint replacement Status (Pros 08/30/2015 AMELIA HERNANDEZ Past Surgeries:, tubal ligation, left ankle fracture-has plate and screws, R forearm for necrosis, R knee arthroplasty HX osteonecrosis - R knee; R wrist Patient [facility] [place] [facility] with report that she felt much improvement for a couple of days after the last visit. She C/O left knee pain after the exercises. Followed by PT. 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 Treatment carried out today and well tolerated with relief expressed.She reported soreness in left SI area. Patient has limited ability to flex her [...] core stability, balance, and pain modulation. Visit 6 F/U 4 weekly Seek urgent care as needed. CMT: chiropractic manipulative therapy SMT: Spinal Manipulative Therapy F/D: Flexion Distraction MFR: Myofascial Release S-I: Sacroiliac MFTP: Myofascial Trigger Point NRS: Numeric Rating Scale N/T: Numbness/Tingling PIR: Post isometric relaxation /es/ MARIAN TREVIÑO [facility] CHIROPRACTOR Signed: 11/08/2023 08:36 [facility]
--- OUTSIDE RECORDS SUMMARY | 2024-08-04 16:59 | XMS_ITS ---
Author Name [facility] Organization [facility] Address [address] [place] [address] Care Team Providers Care Pompom Maker Name Role Phone CADEN FELIZ Primary Care [...] PLAN I Aug 19, 2019 PLAN I [id number] MEEK,GR ICEL PATIENT [employer] OPTIONS MEDICARE SUPPLEMEN MARCIA PLANM Y Aug 19, 2019 PLANMY [id number] [phone] MEEK,GR ICEL PATIENT [employer] OPTIONS MEDICARE SUPPLEMEN MARCIA AARP MEDIC ARE SUPPL Aug 19, 2019 PLAN MY [id number] MEEK,GR ICEL PATIENT AARP INS MEDICARE SUPPLEMEN MARCIA PLANM Y Aug 19, 2019 PLANMY [id number] MEEK,GR ICEL PATIENT AARP MED SUPP MEDICARE SUPPLEMEN MARCIA Jul 19, 2010 [facility] [id number] [phone] MEEK,GR ICEL PATIENT MEDICARE (WNR) MEDICARE () PART B Aug 19, 2008 PART B [id number] MEEK,GR ICEL PATIENT MEDICARE (WNR) MEDICARE () PART B Aug 19, 2008 PART B [id number] [phone] MEEK,GR ICEL PATIENT MEDICARE (WNR) MEDICARE () PART B Aug 19, 2008 PART B [id number] [phone] MEEK,GR ICEL PATIENT MEDICARE (WNR) MEDICARE () PART B Aug 19, 2008 PART B [id number] [phone] MEEK,GR ICEL PATIENT MEDICARE (WNR) MEDICARE () PART B Aug 19, 2008 PART B [id number] [phone] MEEK,GR ICEL PATIENT MEDICARE (WNR) MEDICARE () PART B Aug 19, 2008 PART B [id number] MEEK,GR ICEL PATIENT MEDICARE (WNR) MEDICARE () PART B Aug 19, 2008 PART B [id number] MEEK,GR ICEL PATIENT MEDICARE (WNR) MEDICARE () PART A December 18, 2003 PART A [id number] [phone] MEEK,GR ICEL PATIENT MEDICARE (WNR) MEDICARE () PART A December 18, 2003 PART A [id number] MEEK,GR ICEL PATIENT MEDICARE (WNR) MEDICARE () PART A December 18, 2003 PART A [id number] [phone] MEEK,GR ICEL PATIENT MEDICARE (WNR) MEDICARE () PART A December 18, 2003 PART A [id number] MEEK,GR ICEL PATIENT MEDICARE (WNR) MEDICARE () PART A December 18, 2003 PART A [id number] MEEK,GR ICEL PATIENT MEDICARE (WNR) MEDICARE (M) PART A December 18, 2003 PART A [id number] SABINE MEEK ICEJacky PATIENT MEDICARE (WNR) MEDICARE (M) PART A December 18, 2003 PART A [id number] [phone] SABINE MEEK PATIENT Selected Encounter This section includes the information on record at [place] for the Encounter. Date/Time Encounter Type Encounter Description Reason Provider Source Nov 15, 2023 09:00 AM OFFICE O/P EST LOW 20 MIN PRIMARY CARE/MEDICINE ICD-10-CM K21.00 Gastro-esophag eal reflux dis with esophagitis, without bleed CADEN FELIZ Darshan Encounter Template Text not used by [place] Assessments - Encounter Diagnoses This section includes the primary and secondary diagnoses documented for the Encounter. Date/Time Primary/Secondary Diagnosis Diagnosis Name Provider Source Nov 15, 2023 10:07 AM PRIMARY Gastro-esophageal reflux dis with esophagitis, without bleed WALE FELIZ [facility] Nov 15, 2023 10:07 AM SECONDARY Diabetes due to underlying condition w/o complications WALE FELIZ [facility] Nov 15, 2023 10:07 AM SECONDARY Pain in left elbow WALE FELIZ [facility] Plan of Treatment: Future Appointments (+ 6 months) and Future Tests (+/- 45 days) The Plan of Treatment section includes future care activities for the patient from all [place] treatmentfacilities. This section includes future appointments and future orders which are active, pending or scheduled. Future Appointments This section includes appointments that were scheduled to occur 6 months from the date of the Encounter, up to a maximum of 20 appointments. The data comes from all [place] treatment facilities. Appointment Date/Time Appointment Type Appointme nt Facility Name Nov 18, 2023 11:00 AM AMBULATORY - MEDICINE [facility] [place] [facility] Nov 25, 2023 10:00 AM AMBULATORY - MEDICINE [facility] [place] [facility] Nov 27, 2023 09:30 AM AMBULATORY - MEDICINE [facility] [place] [facility] Nov 28, 2023 09:00 AM AMBULATORY - MEDICINE [facility] [place] [facility] Nov 28, 2023 10:00 AM AMBULATORY [...] - MEDICINE [facility] [place] [facility] January 16, 2024 10:30 AM AMBULATORY - NONE [facility] [place] [facility] Jan 20, 2024 01:00 PM AMBULATORY - PSYCHIATRY [facility] [place] [facility] Lab Results: +/- 30 days of the encounter This section includes the Chemistry and Hematology Lab Results on record with [place] for the patient. Radiology Reports and Pathology Reports are provided separately, in subsequent sections. Lab Results This section contains the Chemistry/Hematology Results that were resulted 30 days before or 30 daysafter the date of the Encounter. Date/Time Source Result Type Result - Unit Interpretation Reference Range Comment Nov 15, 2023 10:10 AM [facility] [place] [facility] VITAMIN B12 Specimen Type: SERUM No comment entered. Ordering Provider: WALE FELIZ Report Released Date/Time: Nov 15, 2023 09:56 AM Reporting Lab: [facility] [address] [address] Performing Lab: [facility] [address] [address] VITAMIN B12 806 pg/mL 200-900 Nov 15, 2023 10:10 AM [facility] MICROALBUMIN CREATININE RATIO PANEL Specimen Type: URINE No comment entered. Ordering Provider: WALE FELIZ Report Released Date/Time: Nov 15, 2023 09:56 AM Reporting Lab: [facility] [address] [address] Performing Lab: [address] [address] MICROALBUMIN/C REATININE RATIO canc mg/g 0-29.9 MICROALBUMIN,Q UANTITATIVE < 0.5 mg/dL RR UNAVAIL CREATININE URINE 34.74 mg/dL Nov 15, 2023 10:10 AM [facility] HEMOGLOBIN A1C PANEL Specimen Type: BLOOD No comment entered. Ordering Provider: WALE FELIZ Report Released Date/Time: Nov 15, 2023 09:56 AM Reporting Lab: [facility] [address] [facility] [address] Performing Lab: [address] [address] HEMOGLOBIN A1C 6.1 H 4.0-5.6 Nov 15, 2023 10:10 AM [facility] VITAMIN D (25-OH) Specimen Type: SERUM No comment entered. Ordering Provider: WALE FELIZ Report Released Date/Time: Nov 15, 2023 09:56 AM Reporting Lab: [facility] [address] [facility] [address] Performing Lab: [address] [address] VITAMIN D (25-OH) 54 ng/mL H 20-50 Nov 15, 2023 10:10 AM [facility] BASIC METABOLIC PANEL (non-fasting) Specimen Type: SERUM No comment entered. Ordering Provider: WALE FELIZ Report Released Date/Time: Nov 15, 2023 09:56 AM Reporting Lab: [facility] [address] [address] Performing Lab: [address] [address] UREA NITROGEN 6 mg/dL L 7-25 GLUCOSE 168 mg/dL H 65-100 SODIUM 134 mmol/L L 135-145 POTASSIUM 4.3 mmol/L 3.5-5.0 CHLORIDE 99 mmol/L L 100-110 CO2 25 meq/L 20-30 CREATININE, Serum 0.66 mg/dL 0.50-1.40 eGFR(CKD-EPI 2020) >90 mL/min >60 Oct 28, 2023 09:26 AM [facility] GLUCOSE, Fingerstick Specimen Type: BLOOD Comment: For GLU FinTest performed by: Linda Vee For GLU Fin Meter #: [id number] Ordering Provider: WALE FELIZ Report Released Date/Time: Oct 28, 2023 10:19 AM Reporting Lab: [address] [address] Performing Lab: [address] [address] GLUCOSE, Fingerstick 178 mg/dL H 65-100 Vital Signs: All taken on the encounter date This section contains inpatient and outpatient Vital Signs collected on the date of the Encounter. Date/Time Temperature Pulse Blood Pressure Respiratory Rate SP02 Pain Height Weight Body Mass Index Source Nov 15, 2023 09:11 AM 98 84 118/68 16 96 5 145.4 28 [facility] Social History: Smoking Status (Most current) and Tobacco Use (All prior to encounter date) This section includes the most current, and the historical, smoking and tobacco- related health factors from the [place] facility where the Encounter took place. Current Smoking Status This section includes the most current smoking, or tobacco-related health factor, from the [place] facility where the Encounter took place. Date/Time Current Smoking Status Comment Facil ity Feb 08, 2023 10:00 AM VA-TOBACCO FORMER USER [facility] [place] [facility] Tobacco Use History This section includes a history of the smoking, or tobacco-related health factors, that were collected on or before the date of the Encounter. The data comes from the [facility] facility where the Encounter took place. Date/Time Smoking Status/Tobac co Use Comment Facility Feb 08, 2023 10:00 AM VA-TOBACCO QUIT 15 YRS OR MORE [facility] [place] [facility] Mar 06, 2022 02:30 PM VA-TOBACCO FORMER USER [facility] [place] [facility] Mar 06, 2022 02:30 PM VA-TOBACCO QUIT 15 YRS OR MORE [facility] [place] [facility] Apr 04, 2021 10:28 AM VA-TOBACCO NEVER USED [facility] [place] [facility] May 03, 2020 02:00 PM VA-TOBACCO NEVER USED [facility] [place] [facility] Feb 25, 2019 08:14 AM VA-TOBACCO FORMER USER [facility] [place] [facility] Feb 25, 2019 08:14 AM VA-TOBACCO QUIT 5 TO < 15 YRS [facility] [place] [facility] Apr 04, 2018 10:41 AM QUIT TOBACCO USE 1-7 YEARS AGO [facility] [place] [facility] Oct 28, 2017 10:18 AM QUIT TOBACCO USE 1-7 YEARS AGO [facility] [place] [facility] Jan 22, 2017 01:08 PM QUIT TOBACCO USE 1-7 YEARS AGO [facility] [place] [facility] Jul 18, 2016 01:34 PM QUIT TOBACCO USE 1-7 YEARS AGO [facility] [place] [facility] January 10, 2016 10:32 AM QUIT TOBACCO USE 1-7 YEARS AGO [facility] [place] [facility] Oct 13, 2015 11:05 AM QUIT TOBACCO USE 1-7 YEARS AGO [facility] [place] [facility] Oct 19, 2014 01:53 PM QUIT TOBACCO USE > 7 YEARS AGO [facility] [place] [facility] January 02, 2014 01:30 AM QUIT TOBACCO USE IN PAST YEAR [facility] [place] [facility] Jun 18, 2013 09:00 AM CURRENT SMOKER 6 cigarettes qd [facility] [place] [facility] Jun 18, 2013 09:00 AM V1-PT DECLINES TOBACCO CESSATION MEDS [facility] [place] Jun 18, 2013 09:00 AM V1-PT NOT INTERESTED IN QUIT TOBACCO USE [facility] [place] [place] [facility] December 24, 2012 10:51 AM V1-PT DECLINES REF TO TOBACCO CESS [facility] [place] [facility] December 24, 2012 10:51 AM V1-PT DECLINES TOBACCO CESSATION MEDS [facility] [place] [facility] December 24, 2012 10:51 AM V1-PT THINKING ABOUT QUIT TOBACCO USE [facility] [place] [facility] Jul 15, 2012 10:19 AM QUIT TOBACCO USE IN PAST YEAR [facility] [place] [facility] Jan 25, 2012 05:02 PM QUIT TOBACCO USE IN PAST YEAR [facility]N [facility] Sep 28, 2011 10:09 AM CURRENT SMOKER 5 cigarettes a day [facility] Jun 15, 2011 02:23 PM V1-PT DECLINES REF TO TOBACCO CESS PRGM [facility] Jun 15, 2011 02:23 PM V1-PT READY TO QUIT TOBACCO USE [facility] [place] [facility] Apr 13, 2011 10:31 AM V1-PT DECLINES REF TO TOBACCO CESS PRGM [facility] Apr 13, 2011 10:31 AM V1-PT RECEIVES TOBACCO CESS MEDS OUTSIDE [facility] Apr 13, 2011 10:31 AM V1-PT THINKING ABOUT QUIT TOBACCO USE [facility] [place] [facility] Oct 16, 2010 08:52 AM QUIT TOBACCO USE IN PAST YEAR [facility] May 12, 2010 02:08 PM V1-PT DECLINES REF TO TOBACCO CESS PRGM [facility] [place] [facility] May 12, 2010 02:08 PM V1-PT READY TO QUIT TOBACCO USE [facility] May 12, 2010 12:45 PM CURRENT SMOKER 3 cigarettes a day [facility] Radiology Reports: +/- 30 days of [...] the Encounter. The data comes from all [place] treatment facilities. Date/Time Radiology Report Provider Source Nov 15, 2023 10:22 AM ELBOW 3 OR MORE VIEWS(LEFT): PEBBLES MEEK [id number] [id number] F Exm Date: NOV 15, 2023@10:22 Req Phys: CADEN FELIZ Loc: CWM/NO/PACT 6 WH (Req'g Loc) [facility] 1 Service: Unknown (Case [id number] COMPLETE) ELBOW 3 OR MORE VIEWS(LEFT) (RAD Detailed) CPT:29410 Reason for Study: pain and swelling left elbow Clinical History: 73yo woman with h/o traumatic injury in 20s, Report Status: Verified Date Reported: NOV 15, 2023 Date Verified: NOV 15, 2023 Body Shop Supervisor E-Sig:/ES/NEMO RODRIGUEZ JR Report: Study: AP, lateral, [...] Primary Interpreting Staff: NEMO RODRIGUEZ JR, Radiologist (Body Shop Supervisor) /NEMO WEISS JR [facility] Encounter Notes: All associated encounter notes This section contains the clinical notes associated to the Encounter. Date/Time Encounter Note(s) Provider Source Nov 15, 2023 09:31 AM PHYSICIAN NOTE: LOCAL TITLE: MD NOTE STANDARD TITLE: PHYSICIAN NOTE DATE OF NOTE: NOV 15, 2023@09:31 ENTRY DATE: NOV 15, 2023@09:31:20 AUTHOR: CADEN FELIZ EXP COSIGNER: URGENCY: STATUS: COMPLETED Patient Name: PEBBLES MEEK Ms. is here for management of chronic medical issues. She reports that she feels nauseous whenver she eats. She has no appetite and she feels that it is worse this week. She feels like something is obstructing her intestines. Two weeks ago she had a very hard bowel movement that cuased a lot of straining. She took castor oil and another natural laxitive and was moving her bowels better for a few days. This is the first time she has had very hard stools, but she often feels that she has to strain and the stool has to move to the side to come out. She is worried that she has a bowel obstruction. Overall, she has been having abdominal pain, nuauses, and discomfort for at least the past year. It has been determined that the pain that radiates along the left side is from the back. She is followed by GI. She is working wiht the DM RN educator and is feeling better about her sugars currently. She is having intermittent pain and swelling in the left elobow. She had a traumatic injury in her 20s with no surgery but casted. She is not having increased pain nad decreased motion in the elbow intemittently. She continues to ahve the back and abdominal pain which is better since working with the chiropractor. Past Medical History: Active problems - Computerized Problem List is the source for the followin. Long-term current use of anticoagulant 2. Gastro-esophageal reflux disease with esophagitis 3. Migraine 4. Vertigo 5. NAFLD - Nonalcoholic fatty liver disease 6. Vitamin D deficiency 7. 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r mental disorder 8. Urge incontinence of urine (SNOMED CT 00063742) 9. Osteopenia 10. Sciatica 11. Obesity 12. Chronic obstructive lung disease (SNOMED CT 82250911) 13. Diabetes mellitus (SNOMED CT 22637166) 14. Restless Leg Syndrome * 15. Knee pain (SNOMED CT 4539547662) 16. Paroxysmal atrial fibrillation (SNOMED CT 995714086) 17. Other and unspecified Sleep Apnea on cpap 18. Hyperlipidemia (SNOMED CT 89815137) 19. Chronic anxiety (SNOMED CT 230139341) with panic attacks, currently well controlled 20. Asthma (SNOMED CT 167978146) 21. Chronic depression (SNOMED CT 497293986) reviewed 22. PTSD - [facility] stress [facility] reviewed 23. Knee Joint replacement Status (Prosthetic [...] EVERY ACTIVE OTHER DAY FOR VITAMIN SUPPLEMENTATION DICLOFENAC NA 1% TOP GEL APPLY 2 GRAMS TOPICALLY FOUR HOLD TIMES A DAY FOR OSTEOARTHRITIS - USE DOSING CARD PROVIDED IN BOX AT [facility] DILTIAZEM (EQV-TIAZAC) 240MG 24HR CAP TAKE ONE CAPSULE BY ACTIVE MOUTH EVERY MORNING PATIENT EXPERIENCE ADVERSE REACTION TO [employer] BRAND/PLEASE DISPENSE VALEANT/OCEANSIDE BRAND [facility] [id number] FORMOTEROL 5/MOMETASONE 200MCG 120D INHL INHALE 2 [...] LENSES, WAIT 10 MINUTES BEFORE INSERTING LENSES) METFORMIN HCL 1000MG TAB TAKE ONE TABLET [...] CAP 50MG BY MOUTH ONCE ACTIVE DAILY Social: lives with adult michael, son is in [place] for the Habits: ex-toboacco, quit 2013; no ETOH, no IVDU : [employer] [id number]; 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 ROS: General: no fever CV: no cp, no sob, no palpitations Lung: no VASQUEZ, no cough, no wheezing Abd: no n/v/d, no pain Psych: no SI PE: BP:118/68 (11/15/2023 09:11) Pulse:84 (11/15/2023 09:11) Resp:16 (11/15/2023 09:11) Temp:98 F [36.7 C] (11/15/2023 09:11) Pulse Oximetry VITAL SIGNS SELECTED Measurement DT POx (L/MIN)(%) 11/15/2023 09:11 96 Pain:5 (11/15/2023 09:11) Weight:145.4 lb [65.95 kg] (11/15/2023 09:11) Height:61 in [154.9 cm] (09/13/2023 11:34) BMI: 27.5 General: NAD CV: S1S2 rrr, no m/r/g noted Lung: CTA b/l, no wheeze, rhonchi, or crackles, good breath sounds to bases b/l Ext: no edema, warm and well perfused b/l Psych: A&O x3, appropriate mood and affect GLUCOSE, Fingerstick: 178 H Above labs reviewed with . A/P GERD with ESOPHIGITIS With h/o hiatal hernia. Was taking pantoprazole and planning surgery but with weight loss, symptoms had been controlled off PPI. With increased weight, symptoms returned 03/2021. Currently using OTC Tums prn. Had symtpoms of esophogeal spasm, feeling like her throat is closing reandomly. EGD done 03/2022 at [facility], recomMended famotadine 40mg at night which is used but has stopped. EGD 12/18/22 stomach biopsy with mild fovoelar hyperplasia c/w reactive/chemical gastropathy; GE junciton with reactive changes, neg for metaplasia and dysplasia; neg H. pylori She has stopped omeprazole since she was having diarrhea. She reports very little reflux symptoms currently. She is now worried about an obstruction since she feels something when she has bowel movements. - f/u with GI as scheduled next week. DM2 Well controlled. Was on dulaglutide, metformin, and Lantus in the past. Now controlled with metformin alone. Followed by DM clinic and now working with DM RN educator A1c 07/26/23 6.1%; 6.7% 01/28/23; 6.2% 08/02/22; 6.0% 02/28/22; 5.8% 10/30/21 microalbumin 01/28/23 negative Eye exam 04/16/23 no retinopathy LDL 94 01/28/23 Monofilament 09/13/23 nl - continue metformin to 1000mg bid - repeat A1c now - f/u with DM team PAF rate controlled with diltiazem and no longer having palpiations. EKG 08/16/21 NSR. 3-day Zio monitor done 09/07/21 with predominant rhythm of sinus at an average rate in the 80s. Fleeting paroxysms of atrial fibrillation (less than 1% burden) with the longest duration less than 3 minutes at an average ventricular response less than 120 beats per minute. No pauses. Rare ectopy.Several patient reported events (dizziness) occur during sinus rhythm at average rates, and do not appear rhythm related. Findings reveal excellent control of paroxysmal atrial fibrillation with symptoms unrelated to rhythm. On AC with apixaban - continue diltiazem 180mg daily - continue apixaban 5mg bid COPD Last exacerbation with IV steroids 01/07/23. Using combivent 2-3 times a day and Symbicort as directedbut feeling symtpoms are getting worse in past few weeks. Symptoms most likely triggered by poorly controlled seasonal allergies with fexofenadine no longer controlling symptoms of sinus congestion, post-nasal drip and rhinorrhea. - contiue fomoterol/momeasone 5mcg/200mcg 2 puffs bid (Dulera) - continue combivent and albuterol prn, increase combivent to qid - continue accupuncture with cupping - changing fexofenadine to cetirizine 10mg daily - encouraged to use nasal steroid Flonase LEFT ELBOW PAIN with h/o truama in 20s, now with intermittent pain and swelling - x-ray ordered - instruted to use diclofenac topical prn - can offer OT if needed SEAONAL ALLERGIES with rhinorrhea and sinus pressure. Controlled with cetirizine and Flonase and treatment from acupuncture to control symptoms but symptoms increasing. - continue cetirzine and Flonase OSTEOPENIA DEXA 01/13/16 T score of -2.1 at right hip, FRAX risk of fracture 4.2% at hip and major osteoporotic fracture of 25%. High risk given previous frequent use of prednisone. Was not using bisphosphonate given severe GERD and hiatal hernia but these symptoms now controlled with weight loss. Repeat DEXA 02/05/19 lowest T-score of -2.3 at L-spine and she declines bisphosponate at this time. DEXA 04/09/22 osteopenia with T-score -1.7 at L-spine - continue Ca VitD VITAMIN D DEFFICIENCY 02/08/21 Vit D 48 08/02/22 Vit D 65 01/28/23 VIt D 45 - continue Vit D 25mcg daily, checking next visit VITAMIN B12 08/02/22 B12 335 and started B12 500mcg titi 01/28/23 B12 1044 - decrese to every other day b12 po 500mcg, check next visit HYPERLIPIDEMIA allergy to Zocor and atorvastatin, tolerating pravastatin 80mg 07/06/21 TC 207, TGs 142, HDL 93, LDL 86 08/02/22 TC 217, TGs 101, HDL 80, LD l17 01/28/23 TC 230, TGs 98, HDL 116, LDL 94 07/26/23 TC 210, TGs 81, HDL 102, LDL 90 - continue pravastatin 80mg LEFT KNEE PAIN progressive for >20 years, was receiving CSI and PT in the past and had TKR to right knee in 2005 but did not have surgery on left. Pain has been progressive and now limitting ADLs. Seen by Rehab Medicine 11/13/21 with signs of spinal stenosis as well. MRI done with possible impingement of descenidn R L4 nreve root and left S1 nerve root. L5-S1 moderate left neural foraminal stenosis. - f/u with orthopedics as scheudled URINNARY URGE/OAB Symptoms currently controlled with mirabegron. She has not had improvement with anticholinergics in the past, most recently oxybutinin. Seen by [facility] 11/14/21 with cystopscopy (normal) - continue Myrbetriq 50mg daily, if not effective will trial Botox NON-ALCOHOLIC FATTY LIVER with likely steatosis seen on CT 11/02 and US 11/03/21. Reviewed steatosis and she states that she wants to make diet changes (juicing, kale, blueberies). Seen by liver clinic 02/15/22 and counseled to avoid alcohol, benefits of weight loss and to avoid reishi mushroom supplement. - monitor LFTs, cbc and INR every 12 months - already on statin pravastatin 80mg daily ANXIETY WITH PTSD increased symptoms with panic attacks 2-3 times a week. Not using sertraline as it causes puritis (needs to use brand Prozac). Being followed by , denies SI. - encouraged her to use lorazepam soon to help with panic attacks and can use 1mg at a time - encouraged her to use the Trazodone that was prescribed by her psychiatrist - continue sertraline 200mg daily - continue mindfulness and relaxation techniques CHRONIC LOW BACK PAIN with radiculopathy on the right; h/o b/l radiculopathy. MRI 01/06/08 showed mild degeneragtive disease of lumbar spine, no steonsis or neuroal fomraminal narrowing. No improvement with PT or accupuncture in the past. 05/2007 epidural injection and 05/10/09 medial branch block at L4-L5 and L5-S1. Has had improved pain managenent with acupuncture and chiropractor at this time. - continue chiropractor as well as acupuncutre as possible - continue NSAID prn MARITZA Not using CPAP machine for the past month. She reports that her anxity does not let her use the machine at this time. - f/u with Pulmonary for other treatment options TUBULAR ADENOMAS Colonoscpy 02/05/14 normal - conloscopy 02/12/19 tubular adenoma x2 and serrated sessile polpy x1. Colonoscopy 02/07/22 without polyps and random biopsy negative - repeat 5 years 01/2027 HCM Mammogram 05/24/22 BI-RADS 1, Density B; repeat 05/2024 Pap 07/29/14 nl, HPV negative; repeat no longer indicated given age >65yo Vaccines UTD The above plan and education was reviewed with the [facility] and they verbalized understanding. Decline printed med list fu 6mo and prn Assess Statin Use - Lipids (CVD/DM): The patient is already on a statin. The patients prescription for a statin was reviewed and updated. Medication Reconciliation: Outpatient: Has the patient been taking medications as documented in the EMLR? YES: The patient has been taking medications as documented in the EMLR. Essential Medication List for Review used to complete this medication reconciliation. INCLUDED IN THIS LIST: Alphabetical list of active outpatient prescriptions dispensed from this [place] (local) and dispensed from another [place] or DoD facility (remote) as well as inpatient orders [...] whether with a VA or non-VA provider. JLV Link Data on this list may not be complete. Please check JLV. Allergies/ADRs (Tool #5) FACILITY ALLERGY/ADR -------- [facility] D NO KNOWN ALLERGIES [facility] ASPIRIN RELATED MEDICATIONS [facility] ATORVASTATIN [facility] MIRTAZAPINE [facility] MOXIFLOXACIN [facility] NIACIN [facility]UL[facility] VARENIC[facility] SULFA DRUGS [facility] - SULFAMETHOXAZOLE/TRIMETHOPR IM Med Recon [facility] (Tool #1) INCLUDED IN THIS LIST: Alphabetical list of active outpatient prescriptions dispensed from this [place] (local) and dispensed from another [place] or [facility] facility (remote) as well as inpatient orders (local pending and active), local clinic medications, locally documented non-VA medications, and local prescriptions that have or been discontinued in the past 90 days. Non-VA Meds Last Documented On: Jun 27, 2023 NOTE The display of VA prescriptions dispensed from another [place] or [facility] facility (remote) is limited to active outpatient prescription entries matched to National Drug File at the originating site and may not include some items such as investigational drugs, compounds, etc. NOT INCLUDED IN THIS LIST: Medications self-entered by the patient into personal health records (i.e. [employer]) are NOT included in this list. Non-VA medications documented outside this [place], remote inpatient orders (regardless of status) and remote clinic medications are NOT included in this list. The patient and provider must always discuss medications the patient is taking, regardless of where the medication was dispensed or obtained. OUTPT ALBUTEROL 3/IPRATROP 0.5MG/3ML INHL 3ML (Status = Active) INHALE 1 AMPULE IN NEBULIZER EVERY THREE HOURS NEEDED FOR BRONCHOSPASM Rx# [id number] Last Released: 10/04/23 Qty/Days Supply: 120/30 Rx Expiration Date: 01/09/24 Refills Remainin Indication: FOR BRONCHOSPASM OUTPT APIXABAN 5MG TAB (Status = Active) TAKE ONE TABLET BY MOUTH EVERY 12 HOURS Rx# [id number] Last Released: 10/21/23 Qty/Days Supply: 180/90 Rx Expiration Date: 08/09/24 Refills Remainin Indication: FOR PREVENTION OF BLOOD CLOTS OUTPT CETIRIZINE HCL 10MG TAB (Status = Active) TAKE ONE TABLET BY MOUTH ONCE DAILY FOR ALLERGIES Rx# [id number] Last Released: 10/02/23 Qty/Days Supply: 90 Rx Expiration Date: 02/09/24 Refills Remainin Indication: FOR ALLERGIES OUTPT CYANOCOBALAMIN 100MCG TAB (Status = Active) TAKE ONE TABLET BY MOUTH EVERY OTHER DAY FOR VITAMIN SUPPLEMENTATION Rx# [id number] Last Released: 05/13/23 Qty/Days Supply: 45 Rx Expiration Date: 05/10/24 Refills Remainin Indication: FOR PREVENTION OF VITAMIN B12 DEFICIENCY OUTPT CYCLOBENZAPRINE HCL 5MG TAB (Status = ) TAKE ONE TABLET BY MOUTH THREE TIMES DAILY NEEDED FOR MUSCLE SPASM Rx# [id number] Last Released: 09/13/23 Qty/Days Supply: 45/15 Rx Expiration Date: 10/13/23 Refills Remainin Indication: FOR MUSCLE SPASM OUTPT DICLOFENAC NA 1% TOP GEL (Status = On Hold) APPLY 2 GRAMS TOPICALLY FOUR TIMES A DAY FOR OSTEOARTHRITIS - USE DOSING CARD PROVIDED IN BOX AT [facility] Rx# [id number] Last Released: 03/05/23 Qty/Days Supply: 300/30 Rx Expiration Date: 02/09/24 Refills Remainin Indication: FOR JOINT PAIN OUTPT DILTIAZEM (EQV-TIAZAC) 240MG 24HR CAP (Status = Active) TAKE ONE CAPSULE BY MOUTH EVERY MORNING PATIENT EXPERIENCE ADVERSE REACTION TO [employer] BRAND/PLEASE DISPENSE VALEANT/OCEANSIDE BRAND [facility] [id number] Rx# [id number] Last Released: 10/02/23 Qty/Days Supply: 90 Rx Expiration Date: 06/25/24 Refills Remainin Non-VA DIPHENHYDRAMINE HCL 25MG CAP TAKE 1 CAPSULE BY MOUTH NEEDED pruritus Non-VA FISH OIL 500MG DHA/EPA CAP,ORAL TAKE BY MOUTH OUTPT FORMOTEROL 5/MOMETASONE 200MCG 120D INHL (Status = On Hold) INHALE 2 PUFFS BY MOUTH TWICE DAILY FOR CONTROLLER MEDICATION FOR ASTHMA Rx# [id number] Last Released: 03/06/23 Qty/Days Supply: 09/17 Rx Expiration Date: 01/09/24 Refills Remainin Indication: FOR CONTROLLER MEDICATION FOR ASTHMA OUTPT IBUPROFEN 800MG TAB (Status = Active) TAKE ONE TABLET BY MOUTH THREE TIMES DAILY NEEDED FOR PAIN TAKE WITH FOOD Rx# [id number] Last Released: 03/06/23 Qty/Days Supply: Rx Expiration Date: 02/09/24 Refills Remainin Indication: FOR PAIN OUTPT KETOTIFEN 0.025% OPH SOLN (Status = Active) INSTILL 1 DROP INTO EACH EYE EVERY 12 HOURS FOR ALLERGIC CONJUNCTIVITIS (IF YOU WEAR CONTACT LENSES, WAIT 10 MINUTES BEFORE INSERTING LENSES) Rx# [id number] Last Released: 04/19/23 Qty/Days Supply: Rx Expiration Date: 04/15/24 Refills Remainin Indication: FOR ALLERGIC CONJUNCTIVITIS OUTPT LORAZEPAM 0.5MG TAB (Status = Discontinued) TAKE ONE TABLET BY MOUTH ONCE DAILY NEEDED ANXIETY FOR ANXIETY Rx# [id number] Last Released: 10/02/23 Qty/Days Supply: Rx Expiration Date: 11/13/23 Refills Remainin Indication: ANXIETY OUTPT METFORMIN HCL 1000MG TAB (Status = Active) TAKE ONE TABLET BY MOUTH TWICE DAILY FOR DIABETES Rx# [id number] Last Released: 10/02/23 Qty/Days Supply: Rx Expiration Date: 05/10/24 Refills Remainin Indication: FOR TYPE 2 DIABETES MELLITUS OUTPT OMEPRAZOLE 20MG EC CAP (Status = Active) TAKE TWO CAPSULES BY MOUTH EVERY MORNING 30 MINUTES BEFORE BREAKFAST INCRESED DOSE Rx# [id number] Last Released: 10/02/23 Qty/Days Supply: Rx Expiration Date: 05/10/24 Refills [...] MAGNESIUM 1200MG BY MOUTH ONCE DAILY OUTPT PRAZOSIN HCL 1MG CAP (Status = On Hold) TAKE ONE CAPSULE BY MOUTH AT BEDTIME NIGHTMARES Rx# [id number] Last Released: 03/06/23 Qty/Days Supply: Rx Expiration Date: 02/12/24 Refills Remainin Indication: NIGHTMARES OUTPT SERTRALINE(ZOLOFT) 100MG TAB*BRAND NAME* (Status = Active) TAKE TWO TABLETS BY MOUTH ONCE DAILY ANXIETY Rx# [id number] Last Released: 10/04/23 Qty/Days Supply: 180/ Rx Expiration Date: 05/13/24 Refills Remainin Indication: ANXIETY OUTPT TRAZODONE HCL 100MG TAB (Status = Active) TAKE ONE-HALF TABLET BY MOUTH AT BEDTIME NEEDED FOR SLEEP Rx# [id number] Last Released: 10/02/23 Qty/Days Supply: 45 Rx Expiration Date: 05/13/24 Refills Remainin Indication: INSOMNIA Non-VA TURMERIC CAP/TAB TAKE BY MOUTH Non-VA VITAMIN E CAP,ORAL TAKE BY MOUTH Non-VA ZINC 50MG (FROM SULFATE) CAP TAKE 1 CAPSULE BY MOUTH ONCE DAILY SUPPLIES /jeana/ CADEN FELIZ M.D. PHYSICIAN Signed: 11/15/2023 10:08 CADEN FELIZ [facility] Nov 15, 2023 09:15 AM PREVENTIVE MEDICINE NURSING NOTE: LOCAL TITLE: CLINICAL REMINDERS/NURSING STANDARD TITLE: PREVENTIVE MEDICINE NURSING NOTE DATE OF NOTE: NOV 15, 2023@09:15 ENTRY DATE: NOV 15, 2023@09:15:43 AUTHOR: KIET FRANCIS EXP COSIGNER: URGENCY: STATUS: COMPLETED RHS Screen: RHS Screen Session Format: Face to Face Environmental Check Screening was not completed at this time due to: Other: Not currently in a relationship /es/ KIET FRANCIS, MSN, RN, CNL PRIMARY CARE TEAM NURSE Signed: 11/15/2023 09:16 KIET FRANCIS [facility]
--- OUTSIDE RECORDS SUMMARY | 2024-08-04 16:59 | XMS_ITS | Encounter Summary ---
Author Name [facility] [facility] [place] [facility] [facility] [place] Address [address] [place] [address] Care Team Providers Care [place] Constable Name Role Phone CADEN FELIZ Primary Care [...] PLAN I Aug 19, 2019 PLAN I [id number] MEEK,GR ICEL PATIENT [employer] OPTIONS MEDICARE SUPPLEMEN MARCIA PLANM Y Aug 19, 2019 PLANMY [id number] [phone] MEEK,GR ICEL PATIENT [employer] OPTIONS MEDICARE SUPPLEMEN MARCIA AARP MEDIC ARE SUPPL Aug 19, 2019 PLAN MY [id number] MEEK,GR ICEL PATIENT AARP INS MEDICARE SUPPLEMEN MARCIA PLANM Y Aug 19, 2019 PLANMY [id number] MEEK,GR ICEL PATIENT AARP MED SUPP MEDICARE SUPPLEMEN MARCIA Jul 19, 2010 PLANMY [id number] MEEK,GR ICEL PATIENT MEDICARE (WNR) MEDICARE () PART B Aug 19, 2008 PART B [id number] [phone] MEEK,GR ICEL PATIENT MEDICARE (WNR) MEDICARE () PART B Aug 19, 2008 PART B [id number] MEEK,GR ICEL PATIENT MEDICARE (WNR) MEDICARE () PART B Aug 19, 2008 PART B [id number] [phone] MEEK,GR ICEL PATIENT MEDICARE (WNR) MEDICARE () PART B Aug 19, 2008 PART B [id number] MEEK,GR ICEL PATIENT MEDICARE (WNR) MEDICARE () PART B Aug 19, 2008 PART B [id number] [phone] MEEK,GR ICEL PATIENT MEDICARE (WNR) MEDICARE () PART B Aug 19, 2008 PART B [id number] MEEK,GR ICEL PATIENT MEDICARE (WNR) MEDICARE () PART B Aug 19, 2008 PART B [id number] MEEK,GR ICEL PATIENT MEDICARE (WNR) MEDICARE () PART A December 18, 2003 PART A [id number] MEEK,GR ICEL PATIENT MEDICARE (WNR) MEDICARE () PART A December 18, 2003 PART A [id number] MEEK,GR ICEL PATIENT MEDICARE (WNR) MEDICARE () PART A December 18, 2003 PART A [id number] MEEK,GR ICEL PATIENT MEDICARE (WNR) MEDICARE () PART A December 18, 2003 PART A [id number] MEEK,GR ICEL PATIENT MEDICARE (WNR) MEDICARE () PART A December 18, 2003 PART A [id number] MEEK,GR ICEL PATIENT MEDICARE (WNR) MEDICARE () PART A December 18, 2003 PART A [id number] SABINE MEEK PATIENT MEDICARE (WNR) MEDICARE (M) PART A December 18, 2003 PART A [id number] SABINE MEEK PATIENT Selected Encounter This section includes the information on record at [place] for the Encounter. Date/Time Encounter Type Encounter Description Reason Provider Source Nov 14, 2023 09:00 AM THERAPEUTIC EXERCISES PHYSICAL THERAPY ICD-10-CM S33.6XXS Sprain of sacroiliac joint, sequregulo LOW,PHILIPPE Y ALBA IHE Encounter Template Text not used by [place] Assessments - Encounter Diagnoses This section includes the primary and secondary diagnoses documented for the Encounter. Date/Time Primary/Secondary Diagnosis Diagnosis Name Provider Source Nov 18, 2023 08:39 AM PRIMARY Sprain of sacroiliac joint, SALLY Barton [place] [facility] [place] [facility] Plan of Treatment: Future Appointments (+ 6 months) and Future Tests (+/- 45 days) The Plan of Treatment section includes future care activities for the patient [facility] [place] [facility] This section includes future appointments and future orders which are active, pending or scheduled. Future Appointments This section includes appointments that were scheduled to occur 6 months from the date of the Encounter, up to a maximum of 20 appointments. The data comes from all [place] treatment facilities. Appointment Date/Time Appointment Type Appointme nt Facility Name Nov 15, 2023 09:00 AM AMBULATORY - MEDICINE [facility] [place] [facility] Nov 15, 2023 09:30 AM AMBULATORY - MEDICINE IN C [facility] [place] [facility] Nov 18, 2023 11:00 AM AMBULATORY - MEDICINE IN C [facility] [place] [facility] Nov 25, 2023 10:00 AM AMBULATORY - MEDICINE IN C [facility] [place] [facility] Nov 27, 2023 09:30 AM AMBULATORY - MEDICINE IN C [facility] [place] [facility] Nov 28, 2023 09:00 AM AMBULATORY - MEDICINE IN C [facility] [place] [facility] Nov 28, 2023 10:00 AM AMBULATORY - PSYCHIATRY [place] [facility] [place] [facility] Dec 05, 2023 09:00 AM AMBULATORY - REHAB MEDICIN E [facility] Dec 05, 2023 [...] AMBULATORY - PSYCHIATRY [facility] [place] [facility] January 14, 2024 09:30 AM AMBULATORY - MEDICINE VA C [facility] [place] [facility] Lab Results: +/- 30 days [...] Range Comment Nov 15, 2023 10:10 AM IN [facility] [place] [facility] VITAMIN B12 Specimen Type: SERUM No comment entered. Ordering Provider: WALE FELIZ Report Released Date/Time: Nov 15, 2023 09:56 AM Reporting [facility] [address] [facility] [address] Performing Lab: [facility] [address] [facility] [address] VITAMIN B12 806 pg/mL 200-900 Nov 15, 2023 10:10 AM [facility] MICROALBUMIN CREATININE RATIO PANEL Specimen Type: URINE No comment entered. Ordering Provider: WALE FELIZ Report Released Date/Time: Nov 15, 2023 09:56 AM Reporting Lab: [facility] [address] [facility] [address] Performing Lab: [address] [address] MICROALBUMIN/C REATININE RATIO canc mg/g 0-29.9 MICROALBUMIN,Q UANTITATIVE < 0.5 mg/dL RR UNAVAIL CREATININE URINE 34.74 mg/dL Nov 15, 2023 10:10 AM [facility] HEMOGLOBIN A1C PANEL Specimen Type: BLOOD No comment entered. Ordering Provider: WALE FELIZ Report Released Date/Time: Nov 15, 2023 09:56 AM Reporting Lab: [address] [address] Performing Lab: [address] [address] HEMOGLOBIN A1C 6.1 H 4.0-5.6 Nov 15, 2023 10:10 AM [facility] VITAMIN D (25-OH) Specimen Type: SERUM No comment entered. Ordering Provider: WALE FELIZ Report Released Date/Time: Nov 15, 2023 09:56 AM Reporting Lab: [facility] [address] [facility] [address] Performing Lab: [address] [address] VITAMIN D (25-OH) 54 ng/mL H 20-50 Nov 15, 2023 10:10 AM [facility] BASIC METABOLIC PANEL (non-fasting) Specimen Type: SERUM No comment entered. Ordering Provider: WALE FELIZ Report Released Date/Time: Nov 15, 2023 09:56 AM Reporting Lab: [address] [address] Performing Lab: [place] [address] [facility] [address] UREA NITROGEN 6 mg/dL L 7-25 GLUCOSE 168 mg/dL H 65-100 SODIUM 134 mmol/L L 135-145 POTASSIUM 4.3 mmol/L 3.5-5.0 CHLORIDE 99 mmol/L L 100-110 CO2 25 meq/L 20-30 CREATININE, Serum 0.66 mg/dL 0.50-1.40 eGFR(CKD-EPI 2020) >90 mL/min >60 Oct 28, 2023 09:26 AM [facility] GLUCOSE, Fingerstick Specimen Type: BLOOD Comment: For GLU FinTest performed by: Linda Vee For GLU Fin Meter #: [id number] Ordering Provider: WALE FELIZ Report Released Date/Time: Oct 28, 2023 10:19 AM Reporting Lab: [facility] [address] [facility] [address] Performing Lab: [address] [address] GLUCOSE, Fingerstick 178 mg/dL H 65-100 Social [...] took place. Date/Time Current Smoking Status Comment [facility] Feb 08, 2023 10:00 AM IN-TOBACCO FORMER USER [facility] Tobacco Use History This section includes a history of the smoking, or tobacco-related health factors, that were collected on or before the date of the Encounter. The data comes from the [place] facility where the Encounter took place. Date/Time Smoking Status/Tobac co Use Comment [facility] Feb 08, 2023 10:00 AM IN-TOBACCO QUIT 15 YRS OR MORE [facility] Mar 06, 2022 02:30 PM VA-TOBACCO FORMER USER [facility] Mar 06, 2022 02:30 PM VA-TOBACCO QUIT 15 YRS OR MORE [facility] Apr 04, 2021 10:28 AM VA-TOBACCO NEVER USED IN [facility] [place] [facility] May 03, 2020 02:00 PM VA-TOBACCO NEVER USED [facility] [place] [facility] Feb 25, 2019 08:14 AM VA-TOBACCO FORMER USER IN [facility] [place] [facility] Feb 25, 2019 08:14 AM VA-TOBACCO QUIT 5 TO < 15 YRS IN [facility] [place] [facility] Apr 04, 2018 10:41 AM QUIT TOBACCO USE 1-7 YEARS AGO [facility] [place] [facility] Oct 28, 2017 10:18 AM QUIT TOBACCO USE 1-7 YEARS AGO [facility] [place] [facility] Jan 22, 2017 01:08 PM QUIT TOBACCO USE 1-7 YEARS AGO [facility] [place] [facility] Jul 18, 2016 01:34 PM QUIT TOBACCO USE 1-7 YEARS AGO [facility] [place] [facility] January 10, 2016 10:32 AM QUIT TOBACCO USE 1-7 YEARS AGO [facility] [place] [facility] Oct 13, 2015 11:05 AM QUIT TOBACCO USE 1-7 YEARS AGO IN [facility] [place] [facility] Oct 19, 2014 01:53 PM QUIT TOBACCO USE > 7 YEARS AGO [facility] [place] [facility] January 02, 2014 01:30 AM QUIT TOBACCO USE IN PAST YEAR IN [facility] [place] [facility] Jun 18, 2013 09:00 AM CURRENT SMOKER 6 cigarettes qd IN [facility] [place] [facility] Jun 18, 2013 09:00 AM V1-PT DECLINES TOBACCO CESSATION MEDS IN [facility] [place] [facility] Jun 18, 2013 09:00 AM V1-PT NOT INTERESTED IN QUIT TOBACCO USE IN [facility] [place] [facility] December 24, 2012 10:51 AM V1-PT DECLINES REF TO TOBACCO CESS PRGM IN [facility] [place] [facility] December 24, 2012 10:51 AM V1-PT DECLINES TOBACCO CESSATION MEDS IN [facility] [place] [facility] December 24, 2012 10:51 AM V1-PT THINKING ABOUT QUIT TOBACCO USE [facility] [place] [facility] Jul 15, 2012 10:19 AM QUIT TOBACCO USE IN PAST YEAR [facility] Jan 25, 2012 05:02 PM QUIT TOBACCO USE IN PAST YEAR [facility] Sep 28, 2011 10:09 AM CURRENT SMOKER 5 cigarettes a day [facility] Jun 15, 2011 02:23 PM V1-PT DECLINES REF TO TOBACCO CESS PRGM [facility] Jun 15, 2011 02:23 PM V1-PT READY TO QUIT TOBACCO USE [facility] Apr 13, 2011 10:31 AM V1-PT DECLINES REF TO TOBACCO CESS PRGM [facility] Apr 13, 2011 10:31 AM V1-PT RECEIVES TOBACCO CESS MEDS OUTSIDE [facility] Apr 13, 2011 10:31 AM V1-PT THINKING ABOUT QUIT TOBACCO USE [facility] Oct 16, 2010 08:52 AM QUIT TOBACCO USE IN PAST YEAR [facility] May 12, 2010 02:08 PM V1-PT DECLINES REF TO TOBACCO CESS PRGM [facility] May 12, 2010 02:08 PM V1-PT READY TO QUIT TOBACCO USE [facility] May 12, 2010 12:45 PM CURRENT SMOKER 3 cigarettes a day [facility] Radiology Reports: +/- 30 days of [...] the Encounter. The data comes from all [facility] facilities. Date/Time Radiology Report Provider Source Nov 15, 2023 10:22 AM ELBOW 3 OR MORE VIEWS(LEFT): PEBBLES MEEK [id number] -[id number] F Exm Date: NOV 15, 2023@10:22 Req Phys: CADEN FELIZ Loc: CWM/NO/PACT 6 WH (Req'g Loc) Img Loc: [facility]BUILDING 1 Service: Unknown (Case [id number] COMPLETE) ELBOW 3 OR MORE VIEWS(LEFT) (RAD Detailed) CPT:60737 Reason for Study: pain and swelling left elbow Clinical History: 73yo woman with h/o traumatic injury in 20s, Report Status: Verified Date Reported: NOV 15, 2023 Date Verified: NOV 15, 2023 Varnish Filterer E-Sig:/ES/NEMO RODRIGUEZ JR Report: Study: AP, lateral, [...] Primary Interpreting Staff: NEMO RODRIGUEZ JR, Radiologist (Varnish Filterer) /NEMO WEISS JR [facility] Encounter Notes: All associated encounter notes This section contains the clinical notes associated to the Encounter. Date/Time Encounter Note(s) Provider Source Nov 14, 2023 01:00 PM PHYSICAL THERAPY NOTE: LOCAL TITLE: PHYSICAL THERAPY STANDARD TITLE: PHYSICAL THERAPY NOTE DATE OF NOTE: NOV 14, 2023@13:00 ENTRY DATE: NOV 15, 2023@07:38:09 AUTHOR: SALLY LOW COSIGNER: URGENCY: STATUS: COMPLETED Initial Evaluation date: 09/26/23 Progress Note Date: n/a Treatment #: 5 Treatment time: 30min Diagnosis: sprain SI joint Provider: Isra PT Treatment Precautions: n/a SUBJECTIVE: It's going good, my left arm is killing me it happens every once in a while OBJECTIVE: Pain rated lower as 2/10 to L hip/SI, pain to L arm intermittent 8- 10/10 patient holding it in protective position upon entering the clinic, reporting it happens occasionally no predictability she had a bone chip in there years ago pain will subside/come randomly THERAPEUTIC EXERCISE: MINUTES: 30 - nustep x8min L1 - clamshells red band 2x10 - hip abd red band 2x10 - bridge with red band 2x10 - SKTC x4 - resisted side step with band and AA 10'x5, 2 sets SELF CARE/EDUCATION: MINUTES:-- Pt provided with/educated in orthotics for shoes [employer] poles not available to be delivered from company to clinic 11/18 - updated HEP as below Access Code: [email or web address] URL: [email or web address] Date: 09/27/2023 Prepared by: [facility] Patient education was provided for all aspects of care during this clinical encounter. ASSESSMENT: Tolerated treatment well, overall reducing pain to L hip/SI/lumbar area, arm limiting factor today could not tolerate any upper extremity PLAN: continue per plan of care, trial paloff press, side planks if tolerable /es/ SALLY LOW PT PHYSICAL THERAPIST Signed: 11/15/2023 07:45 SALLY LOW [facility]
--- OUTSIDE RECORDS SUMMARY | 2024-08-04 17:00 | XMS_ITS | Encounter Summary ---
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 Name Role Phone CADEN DHALIWAL Primary Care [...] Policy Shelton's Name Patient's Relationship to Policy Shleton AARP MEDICARE SUPPLEMEN MARCIA PLAN I Aug 19, 2019 PLAN I [id number] MEEK,GR ICEL PATIENT AARP HEALTHCARE OPTIONS MEDICARE SUPPLEMEN MARCIA PLANM Y Aug 19, 2019 PLANMY [id number] [phone] MEEK,GR ICEL PATIENT AARP HEALTHCARE OPTIONS MEDICARE SUPPLEMEN MARCIA AARP MEDIC ARE SUPPL Aug 19, 2019 PLAN MY [id number] MEEK,GR ICEL PATIENT AARP INS MEDICARE SUPPLEMEN MARCIA PLANM Y Aug 19, 2019 PLANMY [id number] [phone] MEEK,GR ICEL PATIENT AARP MED SUPP MEDICARE SUPPLEMEN MARCIA Jul 19, 2010 [facility] [id number] MEEK,GR ICEL PATIENT MEDICARE (WNR) MEDICARE () PART B Aug 19, 2008 PART B [id number] [phone] MEEK,GR ICEL PATIENT MEDICARE (WNR) MEDICARE () PART B Aug 19, 2008 PART B [id number] MEEK,GR ICEL PATIENT MEDICARE (WNR) MEDICARE () PART B Aug 19, 2008 PART B [id number] MEEK,GR ICEL PATIENT MEDICARE (WNR) MEDICARE () PART B Aug 19, 2008 PART B [id number] [phone] MEEK,GR ICEL PATIENT MEDICARE (WNR) MEDICARE () PART B Aug 19, 2008 PART B [id number] MEEK,GR ICEL PATIENT MEDICARE (WNR) MEDICARE () PART B Aug 19, 2008 PART B [id number] MEEK,GR ICEL PATIENT MEDICARE (WNR) MEDICARE () PART B Aug 19, 2008 PART B [id number] MEEK,GR ICEL PATIENT MEDICARE (WNR) MEDICARE () PART A December 18, 2003 PART A [id number] [phone] MEEK,GR ICEL PATIENT MEDICARE (WNR) MEDICARE () PART A December 18, 2003 PART A [id number] MEEK,GR ICEL PATIENT MEDICARE (WNR) MEDICARE () PART A December 18, 2003 PART A [id number] [phone] MEEK,GR ICEL PATIENT MEDICARE (WNR) MEDICARE () PART A December 18, 2003 PART A [id number] [phone] MEEK,GR ICEL PATIENT MEDICARE (WNR) MEDICARE () PART A December 18, 2003 PART A [id number] [phone] MEEK,GR ICEL PATIENT MEDICARE (WNR) MEDICARE () PART A December 18, 2003 PART A [id number] [phone] SABINE MEEK PATIENT MEDICARE (WNR) MEDICARE (M) PART A December 18, 2003 PART A [id number] [phone] SABINE MEEK PATIENT Selected Encounter This section includes the information on record at [place] for the Encounter. Date/Time Encounter Type Encounter Description Reason Provider Source Nov 18, 2023 11:00 AM DIAB MANAGE TRN PER [facility]DIV [facility]ABETES CLIN[facility] ICD-10-CM E08.9 Diabetes due to underlying condition w/o complications RESHMA VEE E Encounter Template Text not used by [place] Assessments - Encounter Diagnoses This section includes the primary and secondary diagnoses documented for the Encounter. Date/Time Primary/Secondary Diagnosis Diagnosis Name Provider Source Nov 18, 2023 04:20 PM PRIMARY Diabetes due to underlying condition w/o complications [facility] Nov 18, 2023 04:20 PM SECONDARY Type 2 diabetes mellitus with unspecified complications [place]HMA VEE [place] [facility] [place] [facility] Plan of Treatment: Future Appointments (+ 6 months) and Future Tests (+/- 45 days) The Plan of Treatment section includes future care activities for the patient [facility] [place] [facility]. This section includes future appointments and future orders which are active, pending or scheduled. Future Appointments This section includes appointments that were scheduled to occur 6 months from the date of the Encounter, up to a maximum of 20 appointments. The data comes from all [place] treatment facilities. Appointment Date/Time Appointment Type Appointme nt Facility Name Nov 25, 2023 10:00 AM AMBULATORY - [place]ICINE [place] [facility] [place] [facility] Nov 27, 2023 09:30 AM AMBULATORY [place]ICINE [place] [facility] [place] [facility] Nov 28, 2023 09:00 AM AMBULATORY [place]ICINE [place] [facility] [place] [facility] Nov 28, 2023 10:00 AM AMBULATORY - PSYCHIATRY [place] [facility] [place] [facility] Dec 05, 2023 09:00 AM AMBULATORY - REHAB MEDICIN [place] [facility] [place] [facility] Dec 05, 2023 09:30 AM AMBULATORY [place]ICINE [place] [facility] [place] [facility] Dec 09, 2023 09:30 AM AMBULATORY [facility] MEDICINE [facility] [place] [facility] Dec 09, 2023 11:30 AM [facility] [place] [facility] Dec 12, 2023 11:30 AM AMBULATORY - NONE [facility] [place] [facility] Dec 16, 2023 01:00 PM AMBULATORY [...] AMBULATORY - PSYCHIATRY [facility] [place] [facility] January 07, 2024 08:00 AM AMBULATORY - MEDICINE [facility] [place] [facility] January 09, 2024 09:00 AM AMBULATORY - PSYCHIATRY [facility] [place] [facility] January 14, 2024 09:30 AM AMBULATORY - MEDICINE [facility] [place] [facility] January 16, 2024 10:30 AM AMBULATORY - NONE [facility] [place] [facility] Jan 20, 2024 01:00 PM AMBULATORY - PSYCHIATRY [facility] [place] [facility] Jan 22, 2024 03:00 PM AMBULATORY - NONE [facility] [place] [facility] Lab Results: +/- 30 days of the encounter This section includes the Chemistry and Hematology Lab Results on record with [place] for the patient. Radiology Reports and Pathology Reports are provided separately, in subsequent sections. Lab Results This section contains the Chemistry/Hematology Results that were resulted 30 days before or 30 daysafter the date of the Encounter. Date/Time Source Result Type Result - Unit Interpretation Reference Range Comment Nov 15, 2023 10:10 AM [place] [facility] [place] [facility] VITAMIN B12 Specimen Type: SERUM No comment entered. Ordering Provider: WALE DHALIWAL Report Released Date/Time: Nov 15, 2023 09:56 AM Reporting Lab: [place] [facility] [place] [address] [address] Performing Lab: [facility] [address] [facility] [address] VITAMIN B12 806 pg/mL 200-900 Nov 15, 2023 10:10 AM [facility] MICROALBUMIN CREATININE RATIO PANEL Specimen Type: URINE No comment entered. Ordering Provider: WALE DHALIWAL Report Released Date/Time: Nov 15, 2023 09:56 AM Reporting Lab[facility] [address] [address] [address] Performing Lab: [facility] [address] [address] [address] MICROALBUMIN/C REATININE RATIO canc mg/g 0-29.9 MICROALBUMIN,Q UANTITATIVE < 0.5 mg/dL RR UNAVAIL CREATININE URINE 34.74 mg/dL Nov 15, 2023 10:10 AM [facility] HEMOGLOBIN A1C PANEL Specimen Type: BLOOD No comment entered. Ordering Provider: WALE DHALIWAL Report Released Date/Time: Nov 15, 2023 09:56 AM Reporting Lab[facility] [address] [facility] [address] Performing Lab: [facility] [address] [address] HEMOGLOBIN A1C 6.1 H 4.0-5.6 Nov 15, 2023 10:10 AM [facility] VITAMIN D (25-OH) Specimen Type: SERUM No comment entered. Ordering Provider: WALE DHALIWAL Report Released Date/Time: Nov 15, 2023 09:56 AM Reporting Lab: [facility] [address] [facility] [address] Performing Lab: [facility] [address] [address] VITAMIN D (25-OH) 54 ng/mL H 20-50 Nov 15, 2023 10:10 AM [facility] BASIC METABOLIC PANEL (non-fasting) Specimen Type: SERUM No comment entered. Ordering Provider: WALE DAHLIWAL Report Released Date/Time: Nov 15, 2023 09:56 AM Reporting Lab: [facility] [address] [facility] [address] Performing Lab: [address] [address] UREA NITROGEN 6 mg/dL L 7-25 GLUCOSE 168 mg/dL H 65-100 SODIUM 134 mmol/L L 135-145 POTASSIUM 4.3 mmol/L 3.5-5.0 CHLORIDE 99 mmol/L L 100-110 CO2 25 meq/L 20-30 CREATININE, Serum 0.66 mg/dL 0.50-1.40 eGFR(CKD-EPI 2020) >90 mL/min >60 Oct 28, 2023 09:26 AM [facility] GLUCOSE, Fingerstick Specimen Type: BLOOD Comment: For GLU FinTest performed by: Linda Vee For GLU Fin Meter #: [id number] Ordering Provider: WALE DHALIWAL Report Released Date/Time: Oct 28, 2023 10:19 AM Reporting Lab: [address] [address] Performing Lab: [address] [address] GLUCOSE, Fingerstick 178 mg/dL H 65-100 Social History: Smoking Status (Most current) and Tobacco Use (All prior to encounter date) This section includes the most current, and the historical, smoking and tobacco- related health factors from the [place] facility where the Encounter took place. Current Smoking Status This section includes the most current smoking, or tobacco-related health factor, from the [place] facility where the Encounter took place. Date/Time Current Smoking Status Comment [facility] Feb 08, 2023 10:00 AM VA-TOBACCO FORMER USER [facility] Tobacco Use History This section includes a history of the smoking, or tobacco-related health factors, that were collected on or before the date of the Encounter. The data comes from the [place] facility where the Encounter took place. Date/Time Smoking Status/Tobac co Use Comment [facility] Feb 08, 2023 10:00 AM [place]-TOBACCO QUIT 15 YRS OR MORE [facility] Mar 06, 2022 02:30 PM VA-TOBACCO FORMER USER [facility] [place] [facility] Mar 06, 2022 02:30 PM VA-TOBACCO QUIT 15 YRS OR MORE [facility] [place] [facility] Apr 04, 2021 10:28 AM VA-TOBACCO NEVER USED [facility] [place] [facility] May 03, 2020 02:00 PM VA-TOBACCO NEVER USED [place] [facility] [place] [facility] Feb 25, 2019 08:14 AM VA-TOBACCO FORMER USER [facility] [place] [facility] Feb 25, 2019 08:14 AM VA-TOBACCO QUIT 5 TO < 15 YRS [facility] [place] [facility] Apr 04, 2018 10:41 AM QUIT TOBACCO USE 1-7 YEARS AGO [facility] [place] [facility] Oct 28, 2017 10:18 AM QUIT TOBACCO USE 1-7 YEARS AGO [facility] [place] [facility] Jan 22, 2017 01:08 PM QUIT TOBACCO USE 1-7 YEARS AGO [facility] [place] [facility] Jul 18, 2016 01:34 PM QUIT TOBACCO USE 1-7 YEARS AGO [facility] [place] [facility] January 10, 2016 10:32 AM QUIT TOBACCO USE 1-7 YEARS AGO [facility] [place] [facility] Oct 13, 2015 11:05 AM QUIT TOBACCO USE 1-7 YEARS AGO [facility] [place] [facility] Oct 19, 2014 01:53 PM QUIT TOBACCO USE > 7 YEARS AGO [place] [facility] [place] [facility] January 02, 2014 01:30 AM QUIT TOBACCO USE IN PAST YEAR [facility] [place] [facility] Jun 18, 2013 09:00 AM CURRENT SMOKER 6 cigarettes qd [facility] [place] [facility] Jun 18, 2013 09:00 AM V1-PT DECLINES TOBACCO CESSATION MEDS [facility] [place] [facility] Jun 18, 2013 09:00 AM V1-PT NOT INTERESTED IN QUIT TOBACCO USE [facility] [place] [facility] December 24, 2012 10:51 AM V1-PT DECLINES REF TO TOBACCO CESS PRGM [place] [facility] [place] [facility] December 24, 2012 10:51 AM V1-PT DECLINES TOBACCO CESSATION MEDS [facility] December 24, 2012 10:51 AM V1-PT THINKING ABOUT QUIT [facility]ACCO USE [facility] Jul 15, 2012 10:19 AM QUIT TOBACCO USE IN PAST YEAR [facility] Jan 25, 2012 05:02 PM QUIT TOBACCO USE IN PAST YEAR [facility] Sep 28, 2011 10:09 AM CURRENT SMOKER 5 cigarettes a day [facility] Jun 15, 2011 02:23 PM V1-PT DECLINES REF TO TOBACCO CESS PRGM [facility] Jun 15, 2011 02:23 PM V1-PT READY TO QUIT TOBACCO USE [facility] Apr 13, 2011 10:31 AM V1-PT DECLINES REF TO TOBACCO CESS PRGM [facility] Apr 13, 2011 10:31 AM V1-PT RECEIVES TOBACCO CESS MEDS OUTSIDE [facility] Apr 13, 2011 10:31 AM V1-PT THINKING ABOUT QUIT TOBACCO USE [facility] Oct 16, 2010 08:52 AM QUIT TOBACCO USE IN PAST YEAR [facility] May 12, 2010 02:08 PM V1-PT DECLINES REF TO TOBACCO CESS PRGM [facility] May 12, 2010 02:08 PM V1-PT READY TO QUIT TOBACCO USE [facility] May 12, 2010 12:45 PM CURRENT SMOKER 3 cigarettes a day [facility] Radiology Reports: +/- 30 days of [...] the Encounter. The data comes from all [facility] facilities. Date/Time Radiology Report Provider Source Nov 15, 2023 10:22 AM ELBOW 3 OR MORE VIEWS(LEFT): PEBBLES MEEK [id number] -[id number] F Exm Date: NOV 15, 2023@10:22 Req Phys: CADEN DHALIWAL Loc: C[facility]/NO/PACT 6 [facility] (Req'g Loc) Img Loc: [facility]/BUILDING 1 Service: Unknown (Case [id number] COMPLETE) ELBOW 3 OR MORE VIEWS(LEFT) (RAD Detailed) CPT:28014 Reason for Study: pain and swelling left elbow Clinical History: 73yo woman with h/o traumatic injury in 20s, Report Status: Verified Date Reported: NOV 15, 2023 Date Verified: NOV 15, 2023 Soil Checker E-Sig:/ES/NEMO RODRIGUEZ JR Report: Study: AP, [...] Primary Interpreting Staff: NEMO RODRIGUEZ JR, Radiologist (Soil Checker) /NEMO WEISS JR [facility] Encounter Notes: All associated encounter notes This section contains the clinical notes associated to the Encounter. Date/Time Encounter Note(s) Provider Source Nov 20, 2023 12:24 PM ADDENDUM: LOCAL TITLE: Addendum STANDARD TITLE: ADDENDUM DATE OF NOTE: NOV 20, 2023@12:24:54 ENTRY DATE: NOV 20, 2023@12:24:55 AUTHOR: BO RAMIREZ COSIGNER: URGENCY: STATUS: COMPLETED press hand, can you please call pt back later this afternoon or 11/21/23 to schedule a 30 mins phone call to futher discuss dm medications /jeana/ BO RAMIREZ PHARMD,[facility] PRACTITIONER Signed: 11/20/2023 12:25 Receipt Acknowledged By: 11/20/2023 13:58 /jeana/ TOÑO VELAZCO Clinical Cereal Maker --- Original Document --- 11/18/23 DIABETES EDU FOLLOW UP: FOLLOW UP DIABETES EDUCATION VISIT Demographics: Patient Name: PEBBLES MEEK Age: 73 Sex: FEMALE Race: DECLINED TO ANSWER MARITAL STATUS - Introduction: [place] identified with 2 identifiers: [X] Full Name [X] Date of [ ] Address [ ] [place] ID Card PATIENT PHONE - PHONE NUMBER [CELLULAR] - Is patient phone number correct, if not, enter below: 's phone number: PEBBLES MEEK [address], [place], [address] MOST RECENT LABS: HEMOGLOBIN A1C TREND Collection DT Spec HGBA1c 11/15/2023 10:10 BLOOD 6.1 H 07/26/2023 10:01 BLOOD 6.1 H 01/28/2023 09:07 BLOOD 6.7 H 08/02/2022 08:48 BLOOD 6.2 H 02/28/2022 14:07 BLOOD 6.0 H CHEM 7 TREND LAB CUMULATIVE SELECTED [...] 65 H 3.1 101 163 H CREATININE-EGFR 11/15/23 10:10 0.66 08/09/23 11:01 0.67 07/26/23 10:01 0.69 EGFR - NONE FOUND WEIGHT: 145.4 lb [65.95 kg] (11/15/2023 09:11) HEIGHT: 61 in [154.9 cm] (09/13/2023 11:34) BMI: 27.5 REASON FOR EDUCATION VISIT TODAY: Ghazala returns today to download a Ousmane Pro sensor that she wore for 14 days. Type 2 diabetes, diagnosed in 2005. Does not remember exactly when diagnosed. Was initially started on insulin for a period of time and was being evaluated for bariatric surgery before she went on a keto-diet and was able to lose enough weight to stop insulin. Now being treated with Metformin 1,000 mg twice a day. Ghazala reports feeling anxious about her blood sugars fluctuating, however, after reviewing the sensor download with her, reviewed how her glucose are fairly close to target range and A1C is also in target range, therefore, reassured her that she is doing quite well. Ghazala tends to fast between the hours of 5:30-6 pm until 12-1 pm. Ghazala reports she has fasted for 3-7 days at a time in the past. Reports having nausea about 2 months (on and off). Has an appt with [employer] in 2-4 weeks. Stomach pain has been going on for a few years (2 years) on left side in her lower abdomen and into her side towards her back. Questions if it is related to intestines. Had colonoscopy and endoscopy. Notes from [employer] wrote down: pain localized to left sacroiliac joint, recommend Chiropractic. Suspect: Piriformis Syndrome. MOST RECENT LABS: HEMOGLOBIN A1C TREND Collection [...] Marijuana Other None DIABETIC-RELATED CHRONIC COMPLICATIONS EYES: Next appt in June. Comments: Cataracts were removed a long time ago. No retinopathy. Thinks she has glaucoma, not sure. Mother had a history of glaucoma Sister had retinopathy. KIDNEYS: GFR and Microalbumin/Create ratio are normal. Comments: No kidney specialist FEET/LEGS/SKIN: Comments: CARDIOVASCULAR/CEREBROVASCU LAR: Comments: OTHER MEDICAL [...] there was no money to buy more? Yes, but declines a grocery bag during this visit. Has trouble with chewing her food because she has needed implants in order to chew her food. Current Meal Plan: Does fasting diet and starts to eat at 12- 1 pm and stops eating at night between 5:30-6 pm. breakfast: Nothing, drinks coffee after 10 pm (black, decaf, ice) lunch (1 pm): when out will have ac, egg and cheese wrap or at home will have a Mediterranean meal (sourcrout, olives, feta cheese, Katerina chi) or cabbage soup; omelets; tuna sandwich dinner (5 pm): [place] (steamed) with vegetables, or chicken or turkey over rice or cauliflower rice, yucca, or root vegetable and avocado snacks: Mangos, does not snack often, may occasionally get a donut Beverages consumed: water with lemon, seltzer water, Goal weight desired: lbs Exercise/activity: Type: PT, walking and stretching and doing PT at home Frequency:2 x/week and now every 2 weeks. Duration: 1 hour Level: Limitations: Had right knee replacement surgery in 2005, and then revised surgery in 2012. Going to Chiropractor and PT for this. DIABETES MEDICATIONS: Metformin 1,000 mg, 1 tab twice a day. Has been on it for many years and has never had side effects from it. STORAGE OF INSULIN/OTHER INJECTABLES: INJECTIONS SITES: SITES VIEWED: ANY EVIDENCE OF LIPOHYPERTROPHY History of hypoglycemia: Reports that she has had symptoms of highs and lows and sometimes she will mix up her symptoms. We also discussed how her risk of hypoglycemia is much lower now that she is being treated with Metformin and not insulin. Admits she feels a low glucose when the glucose 120 mg/dl when she feels a low glucose. Symptoms: fuzzy, confused, rapid heart rate, cold sweat Frequency: Typical treatment: chocolate, Medic ID: Driving instructions: Has Glucagon kit: Monitoring: Did not bring meter with her today to download. Admits she has been checking her glucose less, now that she is wearing the sensor. Download of the Ousmane Pro that we downloaded today reveals: 10/28/23- 11/09/23 Average glucose is 157 mg/dl for the last 13 days. Very High (>250 mg/dl): 0% High (181-250 mg/dl): 26% Target Range (70-180 mg/dl): 74% Low (54-69 mg/dl): 0% Very Low (<54% mg/dl): 0% GMI: 7.1% Glucose Variability: 23.6% The main trend noted are elevated glucose between the hours of 8 am until 10 am and again at 2 pm, otherwise, the average glucose line is below 180 mg/dl most of the day and in target range. It is noted that when glucose are elevated, it tends to occur with meals. SMBG/ What are your BG targets? Fastin-130 mg/dl; 2 hours after meals: 140-180 mg/dl Sensor Glucose/What are your SG TIR targets? 70% What is your A1c target? 7.0% Learning limitations/special education needs: None Cultural influences: None Health beliefs/attitudes/feelings about diabetes: None Will significant other participate in program? No Prior diabetes education: Laura Aguila & Amairani Pandey ASSESSMENT: Kindly referred by Dr. Dhaliwal. [place] was concerned about her blood sugars running higher in the morning and she continues to fast in the morning. May drink black decaffeinated coffee in the morning, however, that is it. [place] did not bring her meter to this appointment and we were unable to review blood sugars. She was given a 14 day log to write blood sugars down on while wearing the Ousmane Pro sensor that was given to her last appointment, however, she admits she is checking her glucose less and she forgot to write the blood sugars down on the 14 days log. Had a recent A1C in October and it was the same as July: 6.1% She continues to eat lower carbohydrates with most of her meals. No changes were recommended at this time since she is only taking one medication to treat her diabetes, Metformin. She denies any side effects. We reviewed the other medications on the market that help treat diabetes, such as SGLT-2 inhibitors and GLP-1 agonists. Will send message to Dr. Dhaliwal to determine if should be considered for one of these medications based on sensor download. Will follow up on a PRN basis, however, if we decide to start new medication, will have [place] return to diabetes education in 1 month. Education plan/goals/objectives: Assessment/Scale: 1= needs instruction; 2= needs review; 3= comprehends barragan points; 4= demonstrates understanding/competency; NC= Not covered; N/A= not applicable Topics Learning Objectives: Diabetes Pathophysiology (define diabetes and identify own type of diabetes; list 2 options for treating diabetes) Dates Covered & Assessment: 3- 10/28/23; - 11/18/23; Healthy Eating (Describe effect of type, amount and timing of food on blood glucose; list 3 methods for planning meals) Dates Covered & Assessment: 10/28/23; 11/18/23; Being Active (State effect of exercise on blood glucose levels) Dates Covered & Assessment: 10/28/23; 11/18/23; Taking Medication (State effect of diabetes medicines on diabetes; name diabetes medication taking, action and side effects) Dates Covered & Assessment: 10/28/23; 11/18/23; Monitoring Glucose (Identify recommended blood glucose targets and personal targets) Dates Covered & Assessment: 10/28/23; 11/18/23; Acute Complications (List symptoms and treatment of hyper- and hypoglycemia, DKA, sick day guidelines and guidelines for severe weather or situation crisis and diabetes supply management) Dates Covered & Assessment: 10/28/23; 11/18/23; Chronic Complications (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 HEALTH GOAL #2: In order to meet this goal, I will: Clinical or Quality of Life outcome baseline: TEACHING MATERIALS GIVEN: Education: -Reviewed target blood sugars. -Reviewed importance of bringing meter for download. -Reviewed gastroparesis as a complication of diabetes. -Reviewed other treatment options for diabetes with medication (ie: SGLT-2 and GLP-1). -Reviewed sensor download in detail. -Pattern management. INSTRUCTIONS GIVEN TO : -Please bring meter to future appointments for download. -Continue to check glucose 1-2x/day. -Continue Metformin 1,000 mg, 1 tab twice a day. -Will send message to Dr. Dhaliwal about her thoughts after reviewing the sensor download. -Please call with any questions or concerns. -Follow up based if we keep things as is or start a new medication. Patient/Family Verbalized Understanding FUTURE APPOINTMENTS: 11/25/2023 10:00 COM CARE-DENTAL GENERAL 11/28/2023 09:00 CWM/NO/CHIROPRACTOR 11/28/2023 10:00 CWM/NO/MHC/WEISMOORE 11/28/2023 11:00 CWM/NO/DENTAL/DMD4 12/05/2023 09:00 CWM/NO/PHYSICAL THERAPY A 12/05/2023 09:30 CWM/NO/CHIROPRACTOR 12/09/2023 11:30 COM CARE-GI GENERAL 05/05/2024 09:30 CWM/NO/PODIATRY A 05/08/2024 09:00 CWM/NO/PACT 6 WH 07/13/2024 11:30 NHM/OPTOMETRY/BORASKI DM type is : Type 2 diabetes Length of Visit: 60 minutes /es/ LINDA VEE RN,BSN, [facility] DIABETES LOGISTICAL ENGINEER, RN Signed: 11/18/2023 16:20 Receipt Acknowledged By: * AWAITING SIGNATURE * CADEN DHALIWAL 11/18/2023 ADDENDUM STATUS: COMPLETED Dr. Dhaliwal, gave [place] a Ousmane Pro sensor to wear for 14 days and had her return today to review the download. Her blood sugars are 74% in range and average glucose for 14 days was 157 mg/dl. Last A1C was 6.1% last week. She is really watching her diet and doing PT as her exercise. Overall, she appears to be doing quite well on Metformin, however, when we reviewed other treatment options for diabetes such as SGLT-2 inhibitors and GLP-1 agonists, she was excited about the idea of being on a once a day injections that would help her to lose weight. Mentioned that the [place] policy was she had to take Metformin and SGL-2 inhibitors before she could be considered for a GLP-1 agonists. What are your thoughts? Do you want her seen by [facility] staff to help with considering new medications? Also, the Pharmacy staff might also be able to interrupt the sensor download and bill for it since Diabetes Education can only review it with . Otherwise, you or Dr. Quiroz could bill for this. There is a written summary of the sensor download in Diabetes Education note for today. Thank you. /jeana/ LINDA VEE, RN,BSN, [facility] DIABETES LOGISTICAL ENGINEER, RN Signed: 11/18/2023 16:27 Receipt Acknowledged By: * AWAITING SIGNATURE * CADEN DHALIWAL 11/18/2023 17:53 /mega QUIROZ MD STAFF PHYSICIAN 11/18/2023 ADDENDUM STATUS: COMPLETED Recommend follow up in CPP clinic to assess medication management for DM. /mega QUIROZ MD STAFF PHYSICIAN Signed: 11/18/2023 17:56 Receipt Acknowledged By: 11/20/2023 12:11 /mega RAMIREZ PHARMD,[facility] PRACTITIONER BO RAMIREZ [place] [facility] Nov 18, 2023 05:54 PM ADDENDUM: LOCAL TITLE: Addendum STANDARD TITLE: ADDENDUM DATE OF NOTE: NOV 18, 2023@17:54:10 ENTRY DATE: NOV 18, 2023@17:54:11 AUTHOR: JACKELYN QUIROZIGNER: URGENCY: STATUS: COMPLETED Recommend follow up in CPP clinic to assess medication management for DM. /mega QUIROZ MD STAFF PHYSICIAN Signed: 11/18/2023 17:56 Receipt Acknowledged By: 11/20/2023 12:11 /mega RAMIREZ PHARMD,[facility] PRACTITIONER --- Original Document --- 11/18/23 DIABETES EDU FOLLOW UP: FOLLOW UP DIABETES EDUCATION VISIT Demographics: Patient Name: PEBBLES MEEK Age: 73 Sex: FEMALE Race: DECLINED TO ANSWER MARITAL STATUS - Introduction: [place] identified with 2 identifiers: [X] Full Name [X] Date of [ ] Address [ ] [place] Card PATIENT PHONE - PHONE NUMBER [CELLULAR] - Is patient phone number correct, if not, enter below: [place]'s phone number: PEBBLES MEEK [address] [place], [place], [address] MOST RECENT LABS: HEMOGLOBIN A1C TREND Collection DT Spec HGBA1c 11/15/2023 10:10 BLOOD 6.1 H 07/26/2023 10:01 BLOOD 6.1 H 01/28/2023 09:07 BLOOD 6.7 H 08/02/2022 08:48 BLOOD 6.2 H 02/28/2022 14:07 BLOOD 6.0 H CHEM 7 TREND LAB CUMULATIVE SELECTED [...] 65 H 3.1 101 163 H CREATININE-EGFR 11/15/23 10:10 0.66 08/09/23 11:01 0.67 07/26/23 10:01 0.69 EGFR - NONE FOUND WEIGHT: 145.4 lb [65.95 kg] (11/15/2023 09:11) HEIGHT: 61 in [154.9 cm] (09/13/2023 11:34) BMI: 27.5 REASON FOR EDUCATION VISIT TODAY: Ghazala returns today to download a Ousmane Pro sensor that she wore for 14 days. Type 2 diabetes, diagnosed in 2005. Does not remember exactly when diagnosed. Was initially started on insulin for a period of time and was being evaluated for bariatric surgery before she went on a keto-diet and was able to lose enough weight to stop insulin. Now being treated with Metformin 1,000 mg twice a day. Ghazala reports feeling anxious about her blood sugars fluctuating, however, after reviewing the sensor download with her, reviewed how her glucose are fairly close to target range and A1C is also in target range, therefore, reassured her that she is doing quite well. Ghazala tends to fast between the hours of 5:30-6 pm until 12-1 pm. Ghazala reports she has fasted for 3-7 days at a time in the past. Reports having nausea about 2 months (on and off). Has an appt with [facility] in 2-4 weeks. Stomach pain has been going on for a few years (2 years) on left side in her lower abdomen and into her side towards her back. Questions if it is related to intestines. Had colonoscopy and endoscopy. Notes from [employer] wrote down: pain localized to left sacroiliac joint, recommend Chiropractic. Suspect: Piriformis Syndrome. MOST RECENT LABS: HEMOGLOBIN A1C TREND Collection [...] Marijuana Other None DIABETIC-RELATED CHRONIC COMPLICATIONS EYES: Next appt in June. Comments: Cataracts were removed a long time ago. No retinopathy. Thinks she has glaucoma, not sure. Mother had a history of glaucoma Sister had retinopathy. KIDNEYS: GFR and Microalbumin/Create ratio are normal. Comments: No kidney specialist FEET/LEGS/SKIN: Comments: CARDIOVASCULAR/CEREBROVASCU LAR: Comments: OTHER MEDICAL [...] there was no money to buy more? Yes, but declines a grocery bag during this visit. Has trouble with chewing her food because she has needed implants in order to chew her food. Current Meal Plan: Does fasting diet and starts to eat at 12- 1 pm and stops eating at night between 5:30-6 pm. breakfast: Nothing, drinks coffee after 10 pm (black, decaf, ice) lunch (1 pm): when out will have ac, egg and cheese wrap or at home will have a Mediterranean meal (sourcrout, olives, feta cheese, Katerina chi) or cabbage soup; omelets; tuna sandwich dinner (5 pm): [place] (steamed) with vegetables, or chicken or turkey over rice or cauliflower rice, yucca, or root vegetable and avocado snacks: Mangos, does not snack often, may occasionally get a donut Beverages consumed: water with lemon, seltzer water, Goal weight desired: lbs Exercise/activity: Type: PT, walking and stretching and doing PT at home Frequency:2 x/week and now every 2 weeks. Duration: 1 hour Level: Limitations: Had right knee replacement surgery in 2005, and then revised surgery in 2012. Going to Chiropractor and PT for this. DIABETES MEDICATIONS: Metformin 1,000 mg, 1 tab twice a day. Has been on it for many years and has never had side effects from it. STORAGE OF INSULIN/OTHER INJECTABLES: INJECTIONS SITES: SITES VIEWED: ANY EVIDENCE OF LIPOHYPERTROPHY History of hypoglycemia: Reports that she has had symptoms of highs and lows and sometimes she will mix up her symptoms. We also discussed how her risk of hypoglycemia is much lower now that she is being treated with Metformin and not insulin. Admits she feels a low glucose when the glucose 120 mg/dl when she feels a low glucose. Symptoms: fuzzy, confused, rapid heart rate, cold sweat Frequency: Typical treatment: chocolate, Medic ID: Driving instructions: Has Glucagon kit: Monitoring: Did not bring meter with her today to download. Admits she has been checking her glucose less, now that she is wearing the sensor. Download of the Ousmane Pro that we downloaded today reveals: 10/28/23- 11/09/23 Average glucose is 157 mg/dl for the last 13 days. Very High (>250 mg/dl): 0% High (181-250 mg/dl): 26% Target Range (70-180 mg/dl): 74% Low (54-69 mg/dl): 0% Very Low (<54% mg/dl): 0% GMI: 7.1% Glucose Variability: 23.6% The main trend noted are elevated glucose between the hours of 8 am until 10 am and again at 2 pm, otherwise, the average glucose line is below 180 mg/dl most of the day and in target range. It is noted that when glucose are elevated, it tends to occur with meals. SMBG/ What are your BG targets? Fastin-130 mg/dl; 2 hours after meals: 140-180 mg/dl Sensor Glucose/What are your SG TIR targets? 70% What is your A1c target? 7.0% Learning limitations/special education needs: None Cultural influences: None Health beliefs/attitudes/feelings about diabetes: None Will significant other participate in program? No Prior diabetes education: Laura Aguila & Amairani Pandey ASSESSMENT: Kindly referred by Dr. Dhaliwal. [place] was concerned about her blood sugars running higher in the morning and she continues to fast in the morning. May drink black decaffeinated coffee in the morning, however, that is it. Ghazala did not bring her meter to this appointment and we were unable to review blood sugars. She was given a 14 day log to write blood sugars down on while wearing the Ousmane Pro sensor that was given to her last appointment, however, she admits she is checking her glucose less and she forgot to write the blood sugars down on the 14 days log. Had a recent A1C in October and it was the same as July: 6.1% She continues to eat lower carbohydrates with most of her meals. No changes were recommended at this time since she is only taking one medication to treat her diabetes, Metformin. She denies any side effects. We reviewed the other medications on the market that help treat diabetes, such as SGLT-2 inhibitors and GLP-1 agonists. Will send message to Dr. Dhaliwal to determine if Ghazala should be considered for one of these medications based on sensor download. Will follow up on a PRN basis, however, if we decide to start new medication, will have Ghazala return to diabetes education in 1 month. Education plan/goals/objectives: Assessment/Scale: 1= needs instruction; 2= needs review; 3= comprehends barragan points; 4= demonstrates understanding/competency; NC= Not covered; N/A= not applicable Topics Learning Objectives: Diabetes Pathophysiology (define diabetes and identify own type of diabetes; list 2 options for treating diabetes) Dates Covered & Assessment: - 10/28/23; - 11/18/23; Healthy Eating (Describe effect of type, amount and timing of food on blood glucose; list 3 methods for planning meals) Dates Covered & Assessment: - 10/28/23; 4- 11/18/23; Being Active (State effect of exercise on blood glucose levels) Dates Covered & Assessment: - 10/28/23; - 11/18/23; Taking Medication (State effect of diabetes medicines on diabetes; name diabetes medication taking, action and side effects) Dates Covered & Assessment: 10/28/23; 11/18/23; Monitoring Glucose (Identify recommended blood glucose targets and personal targets) Dates Covered & Assessment: 10/28/23; 11/18/23; Acute Complications (List symptoms and treatment of hyper- and hypoglycemia, DKA, sick day guidelines and guidelines for severe weather or situation crisis and diabetes supply management) Dates Covered & Assessment: 10/28/23; 11/18/23; Chronic Complications (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 HEALTH GOAL #2: In order to meet this goal, I will: Clinical or Quality of Life outcome baseline: TEACHING MATERIALS GIVEN: Education: -Reviewed target blood sugars. -Reviewed importance of bringing meter for download. -Reviewed gastroparesis as a complication of diabetes. -Reviewed other treatment options for diabetes with medication (ie: SGLT-2 and GLP-1). -Reviewed sensor download in detail. -Pattern management. INSTRUCTIONS GIVEN TO : -Please bring meter to future appointments for download. -Continue to check glucose 1-2x/day. -Continue Metformin 1,000 mg, 1 tab twice a day. -Will send message to Dr. Dhaliwal about her thoughts after reviewing the sensor download. -Please call with any questions or concerns. -Follow up based if we keep things as is or start a new medication. Patient/Family Verbalized Understanding FUTURE APPOINTMENTS: 11/25/2023 10:00 COM CARE-DENTAL GENERAL 11/28/2023 09:00 CWM/NO/CHIROPRACTOR 11/28/2023 10:00 CWM/NO/MHC/WEISMOORE 11/28/2023 11:00 CWM/NO/DENTAL/DMD4 12/05/2023 09:00 CWM/NO/PHYSICAL THERAPY A 12/05/2023 09:30 CWM/NO/CHIROPRACTOR 12/09/2023 11:30 COM CARE-GI GENERAL 05/05/2024 09:30 CWM/NO/PODIATRY A 05/08/2024 09:00 CWM/NO/PACT 6 WH 07/13/2024 11:30 NHM/OPTOMETRY/BORASKI DM type is : Type 2 diabetes Length of Visit: 60 minutes /es/ LINDA VEE RN,BSN, [facility] DIABETES LOGISTICAL ENGINEER, RN Signed: 11/18/2023 16:20 Receipt Acknowledged By: * AWAITING SIGNATURE * CADEN DHALIWAL 11/18/2023 ADDENDUM STATUS: COMPLETED Dr. Dhaliwal, gave a Ousmane Pro sensor to wear for 14 days and had her return today to review the download. Her blood sugars are 74% in range and average glucose for 14 days was 157 mg/dl. Last A1C was 6.1% last week. She is really watching her diet and doing PT as her exercise. Overall, she appears to be doing quite well on Metformin, however, when we reviewed other treatment options for diabetes such as SGLT-2 inhibitors and GLP-1 agonists, she was excited about the idea of being on a once a day injections that would help her to lose weight. Mentioned that the [place] policy was she had to take Metformin and SGL-2 inhibitors before she could be considered for a GLP-1 agonists. What are your thoughts? Do you want her seen by [facility] staff to help with considering new medications? Also, the Pharmacy staff might also be able to interrupt the sensor download and bill for it since Diabetes Education can only review it with [place]. Otherwise, you or Dr. Quiroz could bill for this. There is a written summary of the sensor download in Diabetes Education note for today. Thank you. /jeana/ LINDA VEE RN,BSN, [facility] DIABETES LOGISTICAL ENGINEER, RN Signed: 11/18/2023 16:27 Receipt Acknowledged By: * AWAITING SIGNATURE * CADEN DHALIWAL 11/18/2023 17:53 /jeana/ JACKELYN QUIROZ MD STAFF PHYSICIAN JACKELYN QUIROZ [facility] Nov 18, 2023 04:21 PM ADDENDUM: LOCAL TITLE: Addendum STANDARD TITLE: ADDENDUM DATE OF NOTE: NOV 18, 2023@16:21:49 ENTRY DATE: NOV 18, 2023@16:21:49 AUTHOR: LINDA VEE EXP COSIGNER: URGENCY: STATUS: COMPLETED Dr. Dhaliwal, gave [place] a Ousmane Pro sensor to wear for 14 days and had her return today to review the download. Her blood sugars are 74% in range and average glucose for 14 days was 157 mg/dl. Last A1C was 6.1% last week. She is really watching her diet and doing PT as her exercise. Overall, she appears to be doing quite well on Metformin, however, when we reviewed other treatment options for diabetes such as SGLT-2 inhibitors and GLP-1 agonists, she was excited about the idea of being on a once a day injections that would help her to lose weight. Mentioned that the [place] policy was she had to take Metformin and SGL-2 inhibitors before she could be considered for a GLP-1 agonists. What are your thoughts? Do you want her seen by [facility] staff to help with considering new medications? Also, the Pharmacy staff might also be able to interrupt the sensor download and bill for it since Diabetes Education can only review it with . Otherwise, you or Dr. Quiroz could bill for this. There is a written summary of the sensor download in Diabetes Education note for today. Thank you. /jeana/ LINDA VEE RN,BSN, [facility] DI[facility]ET[facility] LOGISTICAL ENGINEER, RN Signed: 11/18/2023 16:27 Receipt Acknowledged By: 04/07/2024 10:26 /es/ CADEN DHALIWAL M.D. PHYSICIAN 11/18/2023 17:53 /es/ JACKELYN QUIROZ MD STAFF PHYSICIAN 11/20/2023 14:57 /es/ BO RAMIREZ PHARMD,[facility] PRACTITIONER --- Original Document --- 11/18/23 DIABETES EDU FOLLOW UP: FOLLOW UP DIABETES EDUCATION VISIT Demographics: Patient Name: PEBBLES MEEK Age: 73 Sex: FEMALE Race: DECLINED TO ANSWER MARITAL STATUS - Introduction: [place] identified with 2 identifiers: [X] Full Name [X] Date of [ ] Address [ ] [place] ID Card PATIENT PHONE - PHONE NUMBER [CELLULAR] - Is patient phone number correct, if not, enter below: 's phone number: PEBBLES MEEK [address], [place], [address] MOST RECENT LABS: HEMOGLOBIN A1C TREND Collection DT Spec HGBA1c 11/15/2023 10:10 BLOOD 6.1 H 07/26/2023 10:01 BLOOD 6.1 H 01/28/2023 09:07 BLOOD 6.7 H 08/02/2022 08:48 BLOOD 6.2 H 02/28/2022 14:07 BLOOD 6.0 H CHEM 7 TREND LAB CUMULATIVE SELECTED [...] 65 H 3.1 101 163 H CREATININE-EGFR 11/15/23 10:10 0.66 08/09/23 11:01 0.67 07/26/23 10:01 0.69 EGFR - NONE FOUND WEIGHT: 145.4 lb [65.95 kg] (11/15/2023 09:11) HEIGHT: 61 in [154.9 cm] (09/13/2023 11:34) BMI: 27.5 REASON FOR EDUCATION VISIT TODAY: Ghazala returns today to download a Ousmane Pro sensor that she wore for 14 days. Type 2 diabetes, diagnosed in 2005. Does not remember exactly when diagnosed. Was initially started on insulin for a period of time and was being evaluated for bariatric surgery before she went on a keto-diet and was able to lose enough weight to stop insulin. Now being treated with Metformin 1,000 mg twice a day. Ghazala reports feeling anxious about her blood sugars fluctuating, however, after reviewing the sensor download with her, reviewed how her glucose are fairly close to target range and A1C is also in target range, therefore, reassured her that she is doing quite well. Ghazala tends to fast between the hours of 5:30-6 pm until 12-1 pm. Ghazala reports she has fasted for 3-7 days at a time in the past. Reports having nausea about 2 months (on and off). Has an appt with [employer] in 2-4 weeks. Stomach pain has been going on for a few years (2 years) on left side in her lower abdomen and into her side towards her back. Questions if it is related to intestines. Had colonoscopy and endoscopy. Notes from [employer] wrote down: pain localized to left sacroiliac joint, recommend Chiropractic. Suspect: Piriformis Syndrome. MOST RECENT LABS: HEMOGLOBIN A1C TREND Collection [...] Marijuana Other None DIABETIC-RELATED CHRONIC COMPLICATIONS EYES: Next appt in June. Comments: Cataracts were removed a long time ago. No retinopathy. Thinks she has glaucoma, not sure. Mother had a history of glaucoma Sister had retinopathy. KIDNEYS: GFR and Microalbumin/Create ratio are normal. Comments: No kidney specialist FEET/LEGS/SKIN: Comments: CARDIOVASCULAR/CEREBROVASCU LAR: Comments: OTHER MEDICAL [...] there was no money to buy more? Yes, but declines a grocery bag during this visit. Has trouble with chewing her food because she has needed implants in order to chew her food. Current Meal Plan: Does fasting diet and starts to eat at 12- 1 pm and stops eating at night between 5:30-6 pm. breakfast: Nothing, drinks coffee after 10 pm (black, decaf, ice) lunch (1 pm): when out will have ac, egg and cheese wrap or at home will have a Mediterranean meal (sourcrout, olives, feta cheese, Katerina chi) or cabbage soup; omelets; tuna sandwich dinner (5 pm): [place] (steamed) with vegetables, or chicken or turkey over rice or cauliflower rice, yucca, or root vegetable and avocado snacks: Mangos, does not snack often, may occasionally get a donut Beverages consumed: water with lemon, seltzer water, Goal weight desired: lbs Exercise/activity: Type: PT, walking and stretching and doing PT at home Frequency:2 x/week and now every 2 weeks. Duration: 1 hour Level: Limitations: Had right knee replacement surgery in 2005, and then revised surgery in 2012. Going to Chiropractor and PT for this. DIABETES MEDICATIONS: Metformin 1,000 mg, 1 tab twice a day. Has been on it for many years and has never had side effects from it. STORAGE OF INSULIN/OTHER INJECTABLES: INJECTIONS SITES: SITES VIEWED: ANY EVIDENCE OF LIPOHYPERTROPHY History of hypoglycemia: Reports that she has had symptoms of highs and lows and sometimes she will mix up her symptoms. We also discussed how her risk of hypoglycemia is much lower now that she is being treated with Metformin and not insulin. Admits she feels a low glucose when the glucose 120 mg/dl when she feels a low glucose. Symptoms: fuzzy, confused, rapid heart rate, cold sweat Frequency: Typical treatment: chocolate, Medic ID: Driving instructions: Has Glucagon kit: Monitoring: Did not bring meter with her today to download. Admits she has been checking her glucose less, now that she is wearing the sensor. Download of the Ousmane Pro that we downloaded today reveals: 10/28/23- 11/09/23 Average glucose is 157 mg/dl for the last 13 days. Very High (>250 mg/dl): 0% High (181-250 mg/dl): 26% Target Range (70-180 mg/dl): 74% Low (54-69 mg/dl): 0% Very Low (<54% mg/dl): 0% GMI: 7.1% Glucose Variability: 23.6% The main trend noted are elevated glucose between the hours of 8 am until 10 am and again at 2 pm, otherwise, the average glucose line is below 180 mg/dl most of the day and in target range. It is noted that when glucose are elevated, it tends to occur with meals. SMBG/ What are your BG targets? Fastin-130 mg/dl; 2 hours after meals: 140-180 mg/dl Sensor Glucose/What are your SG TIR targets? 70% What is your A1c target? 7.0% Learning limitations/special education needs: None Cultural influences: None Health beliefs/attitudes/feelings about diabetes: None Will significant other participate in program? No Prior diabetes education: Laura Aguila & Amairani Pandey ASSESSMENT: Kindly referred by Dr. Dhaliwal. [place] was concerned about her blood sugars running higher in the morning and she continues to fast in the morning. May drink black decaffeinated coffee in the morning, however, that is it. Ghazala did not bring her meter to this appointment and we were unable to review blood sugars. She was given a 14 day log to write blood sugars down on while wearing the Ousmane Pro sensor that was given to her last appointment, however, she admits she is checking her glucose less and she forgot to write the blood sugars down on the 14 days log. Had a recent A1C in October and it was the same as July: 6.1% She continues to eat lower carbohydrates with most of her meals. No changes were recommended at this time since she is only taking one medication to treat her diabetes, Metformin. She denies any side effects. We reviewed the other medications on the market that help treat diabetes, such as SGLT-2 inhibitors and GLP-1 agonists. Will send message to Dr. Dhaliwal to determine if should be considered for one of these medications based on sensor download. Will follow up on a PRN basis, however, if we decide to start new medication, will have [place] return to diabetes education in 1 month. Education plan/goals/objectives: Assessment/Scale: 1= needs instruction; 2= needs review; 3= comprehends barragan points; 4= demonstrates understanding/competency; NC= Not covered; N/A= not applicable Topics Learning Objectives: Diabetes Pathophysiology (define diabetes and identify own type of diabetes; list 2 options for treating diabetes) Dates Covered & Assessment: 10/28/23; 11/18/23; Healthy Eating (Describe effect of type, amount and timing of food on blood glucose; list 3 methods for planning meals) Dates Covered & Assessment: 10/28/23; 11/18/23; Being Active (State effect of exercise on blood glucose levels) Dates Covered & Assessment: 10/28/23; 11/18/23; Taking Medication (State effect of diabetes medicines on diabetes; name diabetes medication taking, action and side effects) Dates Covered & Assessment: 10/28/23; 11/18/23; Monitoring Glucose (Identify recommended blood glucose targets and personal targets) Dates Covered & Assessment: 10/28/23; 11/18/23; Acute Complications (List symptoms and treatment of hyper- and hypoglycemia, DKA, sick day guidelines and guidelines for severe weather or situation crisis and diabetes supply management) Dates Covered & Assessment: 10/28/23; 11/18/23; Chronic Complications (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 HEALTH GOAL #2: In order to meet this goal, I will: Clinical or Quality of Life outcome baseline: TEACHING MATERIALS GIVEN: Education: -Reviewed target blood sugars. -Reviewed importance of bringing meter for download. -Reviewed gastroparesis as a complication of diabetes. -Reviewed other treatment options for diabetes with medication (ie: SGLT-2 and GLP-1). -Reviewed sensor download in detail. -Pattern management. INSTRUCTIONS GIVEN TO : -Please bring meter to future appointments for download. -Continue to check glucose 1-2x/day. -Continue Metformin 1,000 mg, 1 tab twice a day. -Will send message to Dr. Dhaliwal about her thoughts after reviewing the sensor download. -Please call with any questions or concerns. -Follow up based if we keep things as is or start a new medication. Patient/Family Verbalized Understanding FUTURE APPOINTMENTS: 11/25/2023 10:00 [facility] CARE-DENTAL GENERAL 11/28/2023 09:00 CWM/NO/CHIROPRACTOR 11/28/2023 10:00 CWM/NO/MHC/WEISMOORE 11/28/2023 11:00 CWM/NO/DENTAL/DMD4 12/05/2023 09:00 CWM/NO/PHYSICAL THERAPY A 12/05/2023 09:30 CWM/NO/CHIROPRACTOR 12/09/2023 11:30 [facility] CARE-GI GENERAL 05/05/2024 09:30 CWM/NO/PODIATRY A 05/08/2024 09:00 CWM/NO/PACT 6 WH 07/13/2024 11:30 NHM/OPTOMETRY/BORASKI DM type is : Type 2 diabetes Length of Visit: 60 minutes /es/ LINDA VEE, RN,BSN, [facility] DIABET[facility] LOGISTICAL ENGINEER, RN Signed: 11/18/2023 16:20 Receipt Acknowledged By: 11/21/2023 12:27 /es/ CADEN DHALIWAL M.D. PHYSICIAN 11/20/2023 15:02 /es/ BO RAMIREZ PHARMD,[facility] CLINICAL PHARMACY PRACTITIONER 11/18/2023 ADDENDUM STATUS: COMPLETED Recommend follow up in CPP clinic to assess medication management for DM. /jeana/ JACKELYN QUIROZ MD STAFF PHYSICIAN Signed: 11/18/2023 17:56 Receipt Acknowledged By: 11/20/2023 12:11 /mega RAMIREZ [facility]IN[facility] PHARMAC[facility] PRACTITIONER 11/20/2023 ADDENDUM STATUS: COMPLETED press hand, can you please call pt back later this afternoon or 11/21/23 to schedule a 30 mins phone call to futher discuss dm medications /jeana/ BO RAMIREZ PHARMD,[facility] CLINICAL PHARMACY PRACTITIONER Signed: 11/20/2023 12:25 Receipt Acknowledged By: 11/20/2023 13:58 /jeana/ TOÑO VELAZCO Clinical Cereal Maker LINDA VEE [facility] Nov 18, 2023 04:21 PM DIABETOLOGY NOTE: LOCAL TITLE: INSULIN PUMP/CGM DOWNLOAD (T) STANDARD TITLE: DIABETOLOGY NOTE DATE OF NOTE: NOV 18, 2023@16:21 ENTRY DATE: NOV 18, 2023@16:21:12 AUTHOR: LINDA VEE EXP COSIGNER: URGENCY: STATUS: COMPLETED Please select: Professional Continuous Glucose Monitor Date of Documentation:Nov Please see attached scanned document in [facility]. DX: Type 2 diabetes Sensor: Ousmane Pro /mega VEE RN,BSN, [facility] DIABETES LOGISTICAL ENGINEER, RN Signed: 11/18/2023 16:21 [facility]EE [facility] Nov 18, 2023 11:22 AM DIABETOLOGY EDUCATION NOTE: LOCAL TITLE: DIABETES EDU FOLLOW UP STANDARD TITLE: DIABETOLOGY EDUCATION NOTE DATE OF NOTE: NOV 18, 2023@11:22 ENTRY DATE: NOV 18, 2023@11:22:22 AUTHOR: LINDA VEE EXP COSIGNER: URGENCY: STATUS: COMPLETED DIABETES EDU FOLLOW UP Has ADDENDA FOLLOW UP DIABETES EDUCATION VISIT Demographics: Patient Name: PEBBLES MEEK Age: 73 Sex: FEMALE Race: DECLINED TO ANSWER MARITAL STATUS - Introduction: [place] identified with 2 identifiers: [X] Full Name [X] Date of [ ] Address [ ] [place] ID Card PATIENT PHONE - PHONE NUMBER [CELLULAR] - Is patient phone number correct, if not, enter below: [place]'s phone number: PEBBLES MEEK [address] [place], [place], [address] MOST RECENT LABS: HEMOGLOBIN A1C TREND Collection DT Spec HGBA1c 11/15/2023 10:10 BLOOD 6.1 H 07/26/2023 10:01 BLOOD 6.1 H 01/28/2023 09:07 BLOOD 6.7 H 08/02/2022 08:48 BLOOD 6.2 H 02/28/2022 14:07 BLOOD 6.0 H CHEM 7 TREND LAB CUMULATIVE SELECTED [...] 65 H 3.1 101 163 H CREATININE-EGFR 11/15/23 10:10 0.66 08/09/23 11:01 0.67 07/26/23 10:01 0.69 EGFR - NONE FOUND WEIGHT: 145.4 lb [65.95 kg] (11/15/2023 09:11) HEIGHT: 61 in [154.9 cm] (09/13/2023 11:34) BMI: 27.5 REASON FOR EDUCATION VISIT TODAY: Ghazala returns today to download a Ousmane Pro sensor that she wore for 14 days. Type 2 diabetes, diagnosed in 2005. Does not remember exactly when diagnosed. Was initially started on insulin for a period of time and was being evaluated for bariatric surgery before she went on a keto-diet and was able to lose enough weight to stop insulin. Now being treated with Metformin 1,000 mg twice a day. Ghazala reports feeling anxious about her blood sugars fluctuating, however, after reviewing the sensor download with her, reviewed how her glucose are fairly close to target range and A1C is also in target range, therefore, reassured her that she is doing quite well. Ghazala tends to fast between the hours of 5:30-6 pm until 12-1 pm. Ghazala reports she has fasted for 3-7 days at a time in the past. Reports having nausea about 2 months (on and off). Has an appt with [employer] [facility] in 2-4 weeks. Stomach pain has been going on for a few years (2 years) on left side in her lower abdomen and into her side towards her back. Questions if it is related to intestines. Had colonoscopy and endoscopy. Notes from [employer] Equipment Repairer wrote down: pain localized to left sacroiliac joint, recommend Chiropractic. Suspect: Piriformis Syndrome. MOST RECENT LABS: HEMOGLOBIN A1C TREND Collection [...] Marijuana Other None DIABETIC-RELATED CHRONIC COMPLICATIONS EYES: Next appt in June. Comments: Cataracts were removed a long time ago. No retinopathy. Thinks she has glaucoma, not sure. Mother had a history of glaucoma Sister had retinopathy. KIDNEYS: GFR and Microalbumin/Create ratio are normal. Comments: No kidney specialist FEET/LEGS/SKIN: Comments: CARDIOVASCULAR/CEREBROVASCU LAR: Comments: OTHER MEDICAL [...] there was no money to buy more? Yes, but declines a grocery bag during this visit. Has trouble with chewing her food because she has needed implants in order to chew her food. Current Meal Plan: Does fasting diet and starts to eat at 12- 1 pm and stops eating at night between 5:30-6 pm. breakfast: Nothing, drinks coffee after 10 pm (black, decaf, ice) lunch (1 pm): when out will have ac, egg and cheese wrap or at home will have a Mediterranean meal (sourcrout, olives, feta cheese, Katerina chi) or cabbage soup; omelets; tuna sandwich dinner (5 pm): [place] (steamed) with vegetables, or chicken or turkey over rice or cauliflower rice, yucca, or root vegetable and avocado snacks: Mangos, does not snack often, may occasionally get a donut Beverages consumed: water with lemon, seltzer water, Goal weight desired: lbs Exercise/activity: Type: PT, walking and stretching and doing PT at home Frequency:2 x/week and now every 2 weeks. Duration: 1 hour Level: Limitations: Had right knee replacement surgery in 2005, and then revised surgery in 2012. Going to Chiropractor and PT for this. DIABETES MEDICATIONS: Metformin 1,000 mg, 1 tab twice a day. Has been on it for many years and has never had side effects from it. STORAGE OF INSULIN/OTHER INJECTABLES: INJECTIONS SITES: SITES VIEWED: ANY EVIDENCE OF LIPOHYPERTROPHY History of hypoglycemia: Reports that she has had symptoms of highs and lows and sometimes she will mix up her symptoms. We also discussed how her risk of hypoglycemia is much lower now that she is being treated with Metformin and not insulin. Admits she feels a low glucose when the glucose 120 mg/dl when she feels a low glucose. Symptoms: fuzzy, confused, rapid heart rate, cold sweat Frequency: Typical treatment: chocolate, Medic ID: Driving instructions: Has Glucagon kit: Monitoring: Did not bring meter with her today to download. Admits she has been checking her glucose less, now that she is wearing the sensor. Download of the Ousmane Pro that we downloaded today reveals: 10/28/23- 11/09/23 Average glucose is 157 mg/dl for the last 13 days. Very High (>250 mg/dl): 0% High (181-250 mg/dl): 26% Target Range (70-180 mg/dl): 74% Low (54-69 mg/dl): 0% Very Low (<54% mg/dl): 0% GMI: 7.1% Glucose Variability: 23.6% The main trend noted are elevated glucose between the hours of 8 am until 10 am and again at 2 pm, otherwise, the average glucose line is below 180 mg/dl most of the day and in target range. It is noted that when glucose are elevated, it tends to occur with meals. SMBG/ What are your BG targets? Fastin-130 mg/dl; 2 hours after meals: 140-180 mg/dl Sensor Glucose/What are your SG TIR targets? 70% What is your A1c target? 7.0% Learning limitations/special education needs: None Cultural influences: None Health beliefs/attitudes/feelings about diabetes: None Will significant other participate in program? No Prior diabetes education: Laura Aguila & Amairani Pandey ASSESSMENT: Kindly referred by Dr. Dhaliwal. was concerned about her blood sugars running higher in the morning and she continues to fast in the morning. May drink black decaffeinated coffee in the morning, however, that is it. [place] did not bring her meter to this appointment and we were unable to review blood sugars. She was given a 14 day log to write blood sugars down on while wearing the Ousmane Pro sensor that was given to her last appointment, however, she admits she is checking her glucose less and she forgot to write the blood sugars down on the 14 days log. Had a recent A1C in October and it was the same as July: 6.1% She continues to eat lower carbohydrates with most of her meals. No changes were recommended at this time since she is only taking one medication to treat her diabetes, Metformin. She denies any side effects. We reviewed the other medications on the market that help treat diabetes, such as SGLT-2 inhibitors and GLP-1 agonists. Will send message to Dr. Dhaliwal to determine if should be considered for one of these medications based on sensor download. Will follow up on a PRN basis, however, if we decide to start new medication, will have return to diabetes education in 1 month. Education plan/goals/objectives: Assessment/Scale: 1= needs instruction; 2= needs review; 3= comprehends barragan points; 4= demonstrates understanding/competency; NC= Not covered; N/A= not applicable Topics Learning Objectives: Diabetes Pathophysiology (define diabetes and identify own type of diabetes; list 2 options for treating diabetes) Dates Covered & Assessment: - 10/28/23; - 11/18/23; Healthy Eating (Describe effect of type, amount and timing of food on blood glucose; list 3 methods for planning meals) Dates Covered & Assessment: - 10/28/23; - 11/18/23; Being Active (State effect of exercise on blood glucose levels) Dates Covered & Assessment: - 10/28/23; - 11/18/23; Taking Medication (State effect of diabetes medicines on diabetes; name diabetes medication taking, action and side effects) Dates Covered & Assessment: - 10/28/23; - 11/18/23; Monitoring Glucose (Identify recommended blood glucose targets and personal targets) Dates Covered & Assessment: 10/28/23; 11/18/23; Acute Complications (List symptoms and treatment of hyper- and hypoglycemia, DKA, sick day guidelines and guidelines for severe weather or situation crisis and diabetes supply management) Dates Covered & Assessment: 10/28/23; 11/18/23; Chronic Complications (Define the relationship of blood glucose levels to residential complications of diabetes and screening and preventative measures) Dates Covered & Assessment: 10/28/23; 11/18/23; Lifestyle and Healthy Coping (Describe life style and healthy coping strategies to promote diabetes self-management) Dates Covered & Assessment: 10/28/23; 11/18/23; Diabetes Distress and Support (Recognize diabetes Distress and be able to identify support options) Dates Covered & Assessment: 10/28/23; 11/18/23; HEALTH GOAL #1: In order to meet this goal, I will: Bring meter to next appointment for download. HEALTH GOAL #2: In order to meet this goal, I will: Clinical or Quality of Life outcome baseline: TEACHING MATERIALS GIVEN: Education: -Reviewed target blood sugars. -Reviewed importance of bringing meter for download. -Reviewed gastroparesis as a complication of diabetes. -Reviewed other treatment options for diabetes with medication (ie: SGLT-2 and GLP-1). -Reviewed sensor download in detail. -Pattern management. INSTRUCTIONS GIVEN TO : -Please bring meter to future appointments for download. -Continue to check glucose 1-2x/day. -Continue Metformin 1,000 mg, 1 tab twice a day. -Will send message to Dr. Dhaliwal about her thoughts after reviewing the sensor download. -Please call with any questions or concerns. -Follow up based if we keep things as is or start a new medication. Patient/Family Verbalized Understanding FUTURE APPOINTMENTS: 11/25/2023 10:00 COM CARE-DENTAL GENERAL 11/28/2023 09:00 CWM/NO/CHIROPRACTOR 11/28/2023 10:00 CWM/NO/MHC/WEISMOORE 11/28/2023 11:00 CWM/NO/DENTAL/DMD4 12/05/2023 09:00 CWM/NO/PHYSICAL THERAPY A 12/05/2023 09:30 CWM/NO/CHIROPRACTOR 12/09/2023 11:30 COM CARE-GI GENERAL 05/05/2024 09:30 CWM/NO/PODIATRY A 05/08/2024 09:00 CWM/NO/PACT 6 WH 07/13/2024 11:30 NHM/OPTOMETRY/BORASKI DM type is : Type 2 diabetes Length of Visit: 60 minutes /es/ LINDA VEE RN,BSN, [facility] DIABETES LOGISTICAL ENGINEER, RN Signed: 11/18/2023 16:20 Receipt Acknowledged By: 11/21/2023 12:27 /es/ CADEN DHALIWAL M.D. PHYSICIAN 11/20/2023 15:02 /es/ BO RAMIREZ, PHARMD,[facility] CLINICAL PHARMACY PRACTITIONER 11/18/2023 ADDENDUM STATUS: COMPLETED Dr. Dhaliwal, gave a Ousmane Pro sensor to wear for 14 days and had her return today to review the download. Her blood sugars are 74% in range and average glucose for 14 days was 157 mg/dl. Last A1C was 6.1% last week. She is really watching her diet and doing PT as her exercise. Overall, she appears to be doing quite well on Metformin, however, when we reviewed other treatment options for diabetes such as SGLT-2 inhibitors and GLP-1 agonists, she was excited about the idea of being on a once a day injections that would help her to lose weight. Mentioned that the [place] policy was she had to take Metformin and SGL-2 inhibitors before she could be considered for a GLP-1 agonists. What are your thoughts? Do you want her seen by [facility] staff to help with considering new medications? Also, the Pharmacy staff might also be able to interrupt the sensor download and bill for it since Diabetes Education can only review it with [place]. Otherwise, you or Dr. Quiroz could bill for this. There is a written summary of the sensor download in Diabetes Education note for today. Thank you. /mega VEE RN,BSN, [facility] DIABETES LOGISTICAL ENGINEER, RN Signed: 11/18/2023 16:27 Receipt Acknowledged By: * AWAITING SIGNATURE * CADEN DHALIWAL 11/18/2023 17:53 /mega QUIROZ MD STAFF PHYSICIAN 11/20/2023 14:57 /jeana/ BO RAMIREZ PHARMD,[facility] CLINICAL PHARMACY PRACTITIONER 11/18/2023 ADDENDUM STATUS: COMPLETED Recommend follow up in CPP clinic to assess medication management for DM. /mega QUIROZ MD STAFF PHYSICIAN Signed: 11/18/2023 17:56 Receipt Acknowledged By: 11/20/2023 12:11 /jeana/ BO RAMIREZ PHARMD,[facility] CLINICAL PHARMACY PRACTITIONER 11/20/2023 ADDENDUM STATUS: COMPLETED press hand, can you please call pt back later this afternoon or 11/21/23 to schedule a 30 mins phone call to futher discuss dm medications /mega RAMIREZ PHARMD,[facility] CLINICAL PHARMACY PRACTITIONER Signed: 11/20/2023 12:25 Receipt Acknowledged By: 11/20/2023 13:58 /jeana/ TOÑO VELAZCO Clinical Cereal Maker LINDA VEE [facility]
--- OUTSIDE RECORDS SUMMARY | 2024-08-04 17:01 | XMS_ITS | Encounter Summary ---
Author Name [facility] Organization [facility] [place] Address [address] [place] [address] Care Team Providers Care Client Service Manager Name Role Phone CADEN FELIZ Primary Care [...] PLAN I Aug 19, 2019 PLAN I [id number] [phone] MEEK,GR ICEL PATIENT [employer] OPTIONS MEDICARE SUPPLEMEN MARCIA PLANM Y Aug 19, 2019 PLANMY [id number] MEEK,GR ICEL PATIENT [employer] OPTIONS MEDICARE SUPPLEMEN MARCIA AARP MEDIC ARE SUPPL Aug 19, 2019 PLAN MY [id number] MEEK,GR ICEL PATIENT A[employer] INS MEDICARE SUPPLEMEN MARCIA PLANM Y Aug 19, 2019 PLANMY [id number] MEEK,GR ICEL PATIENT A[employer] MED SUPP MEDICARE SUPPLEMEN MARCIA Jul 19, 2010 PLANMY [id number] MEEK,GR ICEL PATIENT MEDICARE (WNR) MEDICARE () PART B Aug 19, 2008 PART B [id number] MEEK,GR ICEL PATIENT MEDICARE (WNR) MEDICARE () PART B Aug 19, 2008 PART B [id number] MEEK,GR ICEL PATIENT MEDICARE (WNR) MEDICARE () PART B Aug 19, 2008 PART B [id number] [phone] MEEK,GR ICEL PATIENT MEDICARE (WNR) MEDICARE () PART B Aug 19, 2008 PART B [id number] MEEK,GR ICEL PATIENT MEDICARE (WNR) MEDICARE () PART B Aug 19, 2008 PART B [id number] [phone] MEEK,GR ICEL PATIENT MEDICARE (WNR) MEDICARE () PART B Aug 19, 2008 PART B [id number] [phone] MEEK,GR ICEL PATIENT MEDICARE (WNR) MEDICARE () PART B Aug 19, 2008 PART B [id number] MEEK,GR ICEL PATIENT MEDICARE (WNR) MEDICARE () PART A December 18, 2003 PART A [id number] [phone] MEEK,GR ICEL PATIENT MEDICARE (WNR) MEDICARE () PART A December 18, 2003 PART A [id number] MEEK,GR ICEL PATIENT MEDICARE (WNR) MEDICARE () PART A December 18, 2003 PART A [id number] [phone] MEEK,GR ICEL PATIENT MEDICARE (WNR) MEDICARE () PART A December 18, 2003 PART A [id number] MEEK,GR ICEL PATIENT MEDICARE (WNR) MEDICARE () PART A December 18, 2003 PART A [id number] [phone] MEEK,GR ICEL PATIENT MEDICARE (WNR) MEDICARE () PART A December 18, 2003 PART A [id number] SABINE MEEK PATIENT MEDICARE (WNR) MEDICARE (M) PART A December 18, 2003 PART A [id number] SABINE MEEK PATIENT Selected Encounter This section includes the information on record at [place] for the Encounter. Date/Time Encounter Type Encounter Description Reason Pro vider Source Nov 27, 2023 08:17 AM Outpatient Encounter DENTAL IHE Encounter Template Text not used by [place] Plan of Treatment: Future Appointments (+ 6 [...] Appointment Type Appointme nt Facility Name Nov 28, 2023 09:00 AM AMBULATORY [place]ICINE [facility] [place] [facility] Nov 28, 2023 10:00 AM AMBULATORY - PSYCHIATRY [facility] [place] [facility] Dec 05, 2023 09:00 AM AMBULATORY - REHAB MEDICIN E [facility] [place] [facility] Dec 05, 2023 09:30 AM AMBULATORY [facility] MEDICINE [facility] [place] [facility] Dec 09, 2023 09:30 AM AMBULATORY [place]ICINE [place] [facility] [place] [facility] Dec 09, 2023 11:30 AM AMBULATORY - [place]ICINE [place] [facility] [place] [facility] Dec 12, 2023 11:30 AM AMBULATORY - NONE [facility] [place] [facility] Dec 16, 2023 01:00 PM AMBULATORY - PSYCHIATRY [facility] [place] [facility] December 23, 2023 01:00 PM AMBULATORY - PSYCHIATRY [facility] [place] [facility] December 31, 2023 09:00 AM AMBULATORY - MEDICINE [facility] [place] [facility] January 06, 2024 11:00 AM AMBULATORY - PSYCHIATRY [facility] [place] [facility] January 06, 2024 01:00 PM [...] Range Comment Nov 15, 2023 10:10 AM [facility] [place] [facility] VITAMIN B12 Specimen Type: SERUM No comment entered. Ordering Provider: WALE FELIZ Report Released Date/Time: Nov 15, 2023 09:56 AM Reporting Lab: [facility] [place] [facility] [address] [facility] [address] Performing Lab: [facility] [place] [facility] [address] [facility] [address] VITAMIN B12 806 pg/mL 200-900 Nov 15, 2023 10:10 AM [facility] [place] [facility] MICROALBUMIN CREATININE RATIO PANEL Specimen Type: URINE No comment entered. Ordering Provider: WALE FELIZ Report Released Date/Time: Nov 15, 2023 09:56 AM Reporting Lab: [facility] [place] [facility] [address] [facility] [address] Performing Lab: [place] [facility] [address] [address] MICROALBUMIN/C REATININE RATIO canc mg/g 0-29.9 MICROALBUMIN,Q UANTITATIVE < 0.5 mg/dL RR UNAVAIL CREATININE URINE 34.74 mg/dL Nov 15, 2023 10:10 AM [facility] HEMOGLOBIN A1C PANEL Specimen Type: BLOOD No comment entered. Ordering Provider: WALE FELIZ Report Released Date/Time: Nov 15, 2023 09:56 AM Reporting Lab: [address] [address] Performing Lab: [address] [address] HEMOGLOBIN A1C 6.1 H 4.0-5.6 Nov 15, 2023 10:10 AM [facility] VITAMIN D (25-OH) Specimen Type: SERUM No comment entered. Ordering Provider: WALE FELIZ Report Released Date/Time: Nov 15, 2023 09:56 AM Reporting Lab: [address] [address] Performing Lab: [address] [address] VITAMIN D (25-OH) 54 ng/mL H 20-50 Nov 15, 2023 10:10 AM [facility] BASIC METABOLIC PANEL (non-fasting) Specimen Type: SERUM No comment entered. Ordering Provider: WALE FELIZ Report Released Date/Time: Nov 15, 2023 09:56 AM Reporting Lab: [address] [address] Performing Lab: [address] [address] UREA NITROGEN 6 mg/dL L 7-25 GLUCOSE [...] and tobacco- related health factors from the [place] facility where the Encounter took place. Current Smoking Status This section includes the most current smoking, or tobacco-related health factor, from the [place] facility where the Encounter took place. Date/Time Current Smoking Status Comment [facility] Feb 08, 2023 10:00 AM VA-TOBACCO FORMER USER [place] [facility] [place] [facility] Tobacco Use History This section includes a history of the smoking, or tobacco-related health factors, that were collected on or before the date of the Encounter. The data comes from the [place] facility where the Encounter took place. Date/Time Smoking Status/Tobac co Use Comment Facility Feb 08, 2023 10:00 AM VA-TOBACCO QUIT 15 YRS OR MORE [facility] [place] [facility] Mar 06, 2022 02:30 PM VA-TOBACCO FORMER USER [facility] [place] [facility] Mar 06, 2022 02:30 PM VA-TOBACCO QUIT 15 YRS OR MORE [facility] [place] [facility] Apr 04, 2021 10:28 AM VA-TOBACCO NEVER USED [facility] [place] [facility] May 03, 2020 02:00 PM VA-TOBACCO NEVER USED [facility] [place] [facility] Feb 25, 2019 08:14 AM VA-TOBACCO FORMER USER [facility] [place] [facility] Feb 25, 2019 08:14 AM VA-TOBACCO QUIT 5 TO < 15 YRS [facility] [place] [facility] Apr 04, 2018 10:41 AM QUIT TOBACCO USE 1-7 YEARS AGO [facility] [place] [facility] Oct 28, 2017 10:18 AM QUIT TOBACCO USE 1-7 YEARS AGO [facility] [place] [facility] Jan 22, 2017 01:08 PM QUIT TOBACCO USE 1-7 YEARS AGO [facility] [place] [facility] Jul 18, 2016 01:34 PM QUIT TOBACCO USE 1-7 YEARS AGO [facility] [place] [facility] January 10, 2016 10:32 AM QUIT TOBACCO USE 1-7 YEARS AGO [facility] [place] [facility] Oct 13, 2015 11:05 AM QUIT TOBACCO USE 1-7 YEARS AGO [facility] [place] [facility] Oct 19, 2014 01:53 PM QUIT TOBACCO USE > 7 YEARS AGO [facility] [place] [facility] January 02, 2014 01:30 AM QUIT TOBACCO USE IN PAST YEAR [facility] [place] [facility] Jun 18, 2013 09:00 AM CURRENT SMOKER 6 cigarettes qd [facility] [place] [facility] Jun 18, 2013 09:00 AM V1-PT DECLINES TOBACCO CESSATION MEDS [place] [facility] [place] [facility] Jun 18, 2013 09:00 AM V1-PT NOT INTERESTED IN QUIT TOBACCO USE [facility] [place] [facility] December 24, 2012 10:51 AM V1-PT DECLINES REF TO TOBACCO CESS PRGM [facility] December 24, 2012 10:51 AM V1-PT DECLINES TOBACCO CESSATION MEDS [facility] [place] [facility] December 24, 2012 10:51 AM V1-PT THINKING ABOUT QUIT TOBACCO USE [facility] [place] [facility] Jul 15, 2012 10:19 AM QUIT TOBACCO USE IN PAST YEAR [facility] [place] [facility] Jan 25, 2012 05:02 PM QUIT TOBACCO USE IN PAST YEAR [facility] [place] [facility] Sep 28, 2011 10:09 AM CURRENT SMOKER 5 cigarettes a day [facility] [facility] Jun 15, 2011 02:23 PM V1-PT DECLINES REF TO TOBACCO CESS PRGM [facility] [place] [facility] Jun 15, 2011 02:23 PM V1-PT READY TO QUIT TOBACCO USE [facility] [place] [facility] Apr 13, 2011 10:31 AM V1-PT DECLINES REF TO TOBACCO CESS PRGM [facility] Apr 13, 2011 10:31 AM V1-PT RECEIVES TOBACCO CESS MEDS OUTSIDE [facility] [place] [facility] Apr 13, 2011 10:31 AM V1-PT THINKING ABOUT QUIT TOBACCO USE [facility] [place] [facility] Oct 16, 2010 08:52 AM QUIT TOBACCO USE IN PAST YEAR [facility] May 12, 2010 02:08 PM V1-PT DECLINES REF [facility] TOBACCO CESS [facility] May 12, 2010 02:08 PM V1-PT READY TO QUIT [facility]BACCO [facility] May 12, 2010 12:45 PM CURRENT SMOKER 3 cigarettes a day [facility] Radiology Reports: +/- 30 [...] the Encounter. The data comes from all [facility] facilities. Date/Time Radiology Report Provider Source Nov 15, 2023 10:22 AM ELBOW 3 OR MORE VIEWS(LEFT): PEBBLES MEEK [id number] -[id number] F Exm Date: NOV 15, 2023@10:22 Req Phys: ACDEN FELIZ Loc: CWM/NO/PACT 6 WH (Req'g Loc) Img Loc: [facility] 1 Service: Unknown (Case [id number] COMPLETE) ELBOW 3 OR MORE VIEWS(LEFT) (RAD Detailed) CPT:74459 Reason for Study: pain and swelling left elbow Clinical History: 73yo woman with h/o traumatic injury in 20s, Report Status: Verified Date Reported: NOV 15, 2023 Date Verified: NOV 15, 2023 Fishing Rod Trimmer E-Sig:/ES/NEMO RODRIGUEZ JR Report: Study: AP, lateral, [...] Primary Interpreting Staff: NEMO RODRIGUEZ JR, Radiologist (Fishing Rod Trimmer) /NEMO WEISS JR [facility] Encounter Notes: All associated encounter notes This section contains the clinical notes associated to the Encounter. Date/Time Encounter Note(s) Provider Source Nov 27, 2023 08:17 AM DENTISTRY TELEPHON E ENCOUNTER NOTE: LOCAL TITLE: TELEPHONE NOTE/DENTAL STANDARD TITLE: DENTISTRY TELEPHONE ENCOUNTER NOTE DATE OF NOTE: NOV 27, 2023@08:17 ENTRY DATE: NOV 27, 2023@08:17:17 AUTHOR: SHANTA ANTOINE EXP COSIGNER: URGENCY: STATUS: COMPLETED Spoke with pt to confirm dental appointment on 11/28/2023 at 11:00 am. /jeana/ SHANTA ANTOINE ADVANCED CLINICAL ENGINEERING MANAGER Signed: 11/27/2023 08:18 SHANTA ANTOINE [facility]
--- OUTSIDE RECORDS SUMMARY | 2024-08-04 17:01 | XMS_ITS ---
Author Name [facility] [place] [facility] [place] [facility] [place] [facility] [place] Address [address] [place] [address] Care Team Providers Care Room Clerk Name Role Phone CADEN FELIZ Primary [...] PLAN I Aug 19, 2019 PLAN I [id number] MEEK,GR ICEL PATIENT [employer] OPTIONS MEDICARE SUPPLEMEN MARCIA PLANM Y Aug 19, 2019 PLANMY [id number] MEEK,GR ICEL PATIENT [employer] OPTIONS MEDICARE SUPPLEMEN MARCIA AARP MEDIC ARE SUPPL Aug 19, 2019 PLAN MY [id number] MEEK,GR ICEL PATIENT AARP INS MEDICARE SUPPLEMEN MARCIA PLANM Y Aug 19, 2019 PLANMY [id number] MEEK,GR ICEL PATIENT AARP MED SUPP MEDICARE SUPPLEMEN MARCIA Jul 19, 2010 PLANMY [id number] [phone] MEEK,GR ICEL PATIENT MEDICARE (WNR) MEDICARE () PART B Aug 19, 2008 PART B [id number] MEEK,GR ICEL PATIENT MEDICARE (WNR) MEDICARE () PART B Aug 19, 2008 PART B [id number] [phone] MEEK,GR ICEL PATIENT MEDICARE (WNR) MEDICARE () PART B Aug 19, 2008 PART B [id number] MEEK,GR ICEL PATIENT MEDICARE (WNR) MEDICARE () PART B Aug 19, 2008 PART B [id number] [phone] MEEK,GR ICEL PATIENT MEDICARE (WNR) MEDICARE () PART B Aug 19, 2008 PART B [id number] [phone] MEEK,GR ICEL PATIENT MEDICARE (WNR) MEDICARE () PART B Aug 19, 2008 PART B [id number] MEEK,GR ICEL PATIENT MEDICARE (WNR) MEDICARE () PART B Aug 19, 2008 PART B [id number] [phone] MEEK,GR ICEL PATIENT MEDICARE (WNR) MEDICARE () PART A December 18, 2003 PART A [id number] [phone] MEEK,GR ICEL PATIENT MEDICARE (WNR) MEDICARE () PART A December 18, 2003 PART A [id number] MEEK,GR ICEL PATIENT MEDICARE (WNR) MEDICARE () PART A December 18, 2003 PART A [id number] [phone] MEEK,GR ICEL PATIENT MEDICARE (WNR) MEDICARE () PART A December 18, 2003 PART A [id number] [phone] MEEK,GR ICEL PATIENT MEDICARE (WNR) MEDICARE () PART A December 18, 2003 PART A [id number] [phone] MEEK,GR ICEL PATIENT MEDICARE (WNR) MEDICARE () PART A December 18, 2003 PART A [id number] [phone] SABINE MEEK PATIENT MEDICARE (WNR) MEDICARE (M) PART A December 18, 2003 PART A [id number] SABINE MEEK PATIENT Selected Encounter This section includes the information on record at [place] for the Encounter. Date/Time Encounter Type Encounter Description Reason Pro vider Source Nov 19, 2023 08:02 AM Outpatient Encounter TELEPHONE IHE Encounter Template Text not used by [place] Plan of Treatment: Future Appointments (+ 6 months) and Future Tests (+/- 45 days) The Plan of Treatment section includes future care activities for the patient from all [place] treatmentfacilities. This section includes future appointments and future orders which are active, pending or scheduled. Future Appointments This section includes appointments that were scheduled to occur 6 months from the date of the Encounter, up to a maximum of 20 appointments. The data comes from all [place] treatment facilities. Appointment Date/Time Appointment Type Appointme nt Facility Name Nov 25, 2023 10:00 AM [facility]IC[facility] [place] [facility] Nov 27, 2023 09:30 AM [facility]IC[facility] [place] [facility] Nov 28, 2023 09:00 AM [facility]ICINE [facility] [place] [facility] Nov 28, 2023 10:00 AM AMBULATORY - PSYCHIATRY [facility] [place] [facility] Dec 05, 2023 09:00 AM AMBULATORY - REHAB MEDICIN E [facility] [place] [facility] Dec 05, 2023 09:30 AM [facility]AT[facility]ICINE [facility] [place] [facility] Dec 09, 2023 09:30 AM [facility] MEDICINE [facility] [place] [facility] Dec 09, 2023 11:30 AM AMBULATORY [facility] MEDICINE [facility] [place] [facility] Dec 12, 2023 11:30 AM AMBULATORY - NONE [facility] [place] [facility] Dec 16, 2023 01:00 PM AMBULATORY - PSYCHIATRY [facility] [place] [facility] December 23, 2023 01:00 PM AMBULATORY - PSYCHIATRY [facility] [place] [facility] December 31, 2023 09:00 AM AMBULATORY [facility] MEDICINE [facility] [place] [facility] January 06, 2024 11:00 AM AMBULATORY - PS[facility]CHIATRY [facility] [place] [facility] January 06, 2024 01:00 PM [facility] [place] [facility] January 07, 2024 08:00 AM AMBULATORY - MEDICINE [facility] [place] [facility] January 09, 2024 09:00 AM AMBULATORY - PSYCHIATRY [facility] [place] [facility] January 14, 2024 09:30 AM AMBULATORY - MEDICINE [facility] [place] [facility] January 16, 2024 10:30 AM AMBULATORY - NONE [facility] [place] [facility] Jan 20, 2024 01:00 PM AMBULATORY - PSYCHIATRY [facility] [place] [facility] Jan 22, 2024 03:00 PM AMBULATORY - NONE [place] [facility] [place] [facility] Lab Results: +/- 30 days of the encounter This section includes the Chemistry and Hematology Lab Results on record with [place] for the patient. Radiology Reports and Pathology Reports are provided separately, in subsequent sections. Lab Results This section contains the Chemistry/Hematology Results that were resulted 30 days before or 30 daysafter the date of the Encounter. Date/Time Source Result Type Result - Unit Interpretation Reference Range Comment Nov 15, 2023 10:10 AM [facility] MICROALBUMIN CREATININE RATIO PANEL Specimen Type: URINE No comment entered. Ordering Provider: WALE FELIZ Report Released Date/Time: Nov 15, 2023 09:56 AM Reporting Lab[facility] [address] [address] Performing Lab: [facility] [address] [address] MICROALBUMIN/C REATININE RATIO canc mg/g 0-29.9 MICROALBUMIN,Q UANTITATIVE < 0.5 mg/dL RR UNAVAIL CREATININE URINE 34.74 mg/dL Nov 15, 2023 10:10 AM [facility] VITAMIN B12 Specimen Type: SERUM No comment entered. Ordering Provider: WALE FELIZ Report Released Date/Time: Nov 15, 2023 09:56 AM Reporting Lab: [facility] [address] [address] Performing Lab: [address] [address] VITAMIN B12 806 pg/mL 200-900 Nov 15, 2023 10:10 AM [facility] HEMOGLOBIN A1C PANEL Specimen Type: BLOOD No comment entered. Ordering Provider: WALE FELIZ Report Released Date/Time: Nov 15, 2023 09:56 AM Reporting Lab: [address] [address] Performing Lab: [address] [address] HEMOGLOBIN A1C 6.1 H 4.0-5.6 Nov 15, 2023 10:10 AM [facility] VITAMIN D (25-OH) Specimen Type: SERUM No comment entered. Ordering Provider: WALE FELIZ Report Released Date/Time: Nov 15, 2023 09:56 AM Reporting Lab: [address] [address] Performing Lab: [address] [address] VITAMIN D (25-OH) 54 ng/mL H 20-50 Nov 15, 2023 10:10 AM [facility] BASIC METABOLIC PANEL (non-fasting) Specimen Type: SERUM No comment entered. Ordering Provider: WALE FELIZ Report Released Date/Time: Nov 15, 2023 09:56 AM Reporting Lab: [address] [address] Performing Lab: [address] [address] UREA NITROGEN 6 mg/dL L 7-25 GLUCOSE 168 mg/dL H 65-100 SODIUM 134 mmol/L L 135-145 POTASSIUM 4.3 mmol/L 3.5-5.0 CHLORIDE 99 mmol/L L 100-110 CO2 25 meq/L 20-30 CREATININE, Serum 0.66 mg/dL 0.50-1.40 eGFR(CKD-EPI 2020) >90 mL/min >60 Oct 28, 2023 09:26 AM [facility] [place] [facility] GLUCOSE, Fingerstick Specimen Type: BLOOD Comment: For GLU FinTest performed by: Linda Vee For GLU Fin Meter #: [id number] Ordering Provider: WALE FELIZ Report Released Date/Time: Oct 28, 2023 10:19 AM Reporting Lab: [facility] [address] [address] Performing Lab: [place] [facility] [address] [address] GLUCOSE, Fingerstick 178 mg/dL H 65-100 Social History: Smoking Status (Most current) and Tobacco Use (All prior to encounter date) This section includes the most current, and the historical, smoking and tobacco- related health factors from the [place] facility where the Encounter took place. Current Smoking Status This section includes the most current smoking, or tobacco-related health factor, from the [place] facility where the Encounter took place. Date/Time Current Smoking Status Comment [facility] Feb 08, 2023 10:00 AM VA-TOBACCO FORMER USER [place] [facility] Tobacco Use History This section includes a history of the smoking, or tobacco-related health factors, that were collected on or before the date of the Encounter. The data comes from the [place] facility where the Encounter took place. Date/Time Smoking Status/Tobac co Use Comment [facility] Feb 08, 2023 10:00 AM VA-TOBACCO QUIT 15 YRS OR MORE [place] [facility] [place] [facility] Mar 06, 2022 02:30 PM VA-TOBACCO FORMER USER [facility] [place] [facility] Mar 06, 2022 02:30 PM VA-TOBACCO QUIT 15 YRS OR MORE [facility] [place] [facility] Apr 04, 2021 10:28 AM VA-TOBACCO NEVER USED [facility] [place] [facility] May 03, 2020 02:00 PM VA-TOBACCO NEVER USED [facility] [place] [facility] Feb 25, 2019 08:14 AM VA-TOBACCO FORMER USER [place] [facility] [place] [facility] Feb 25, 2019 08:14 AM VA-TOBACCO QUIT 5 TO < 15 YRS [facility] [place] [facility] Apr 04, 2018 10:41 AM QUIT TOBACCO USE 1-7 YEARS AGO [place] [facility] [place] [facility] Oct 28, 2017 10:18 AM QUIT TOBACCO USE 1-7 YEARS AGO [facility] [place] [facility] Jan 22, 2017 01:08 PM QUIT TOBACCO USE 1-7 YEARS AGO [facility] [place] [facility] Jul 18, 2016 01:34 PM QUIT TOBACCO USE 1-7 YEARS AGO [facility] [place] [facility] January 10, 2016 10:32 AM QUIT TOBACCO USE 1-7 YEARS AGO [place] [facility] [place] [facility] Oct 13, 2015 11:05 AM QUIT TOBACCO USE 1-7 YEARS AGO [facility] [place] [facility] Oct 19, 2014 01:53 PM QUIT TOBACCO USE > 7 YEARS AGO [place] [facility] [place] [facility] January 02, 2014 01:30 AM QUIT TOBACCO USE IN PAST YEAR [facility] [place] [facility] Jun 18, 2013 09:00 AM CURRENT SMOKER 6 cigarettes qd [facility] [place] [facility] Jun 18, 2013 09:00 AM V1-PT DECLINES TOBACCO CESSATION MEDS [place] [facility] [place] [facility] Jun 18, 2013 09:00 AM V1-PT NOT INTERESTED IN QUIT TOBACCO USE [facility] [place] [facility] December 24, 2012 10:51 AM V1-PT DECLINES REF TO TOBACCO CESS PRGM [place] [facility] [place] [facility] December 24, 2012 10:51 AM V1-PT DECLINES TOBACCO CESSATION MEDS [facility] [place] [facility] December 24, 2012 10:51 AM V1-PT THINKING ABOUT QUIT TOBACCO USE [place] [facility] [place] [facility] Jul 15, 2012 10:19 AM QUIT TOBACCO USE IN PAST YEAR [place] [facility] [place] [facility] Jan 25, 2012 05:02 PM QUIT TOBACCO USE IN PAST YEAR [place] [facility] [place] [facility] Sep 28, 2011 10:09 AM CURRENT SMOKER 5 cigarettes a day [place] [facility] [place] [facility] Jun 15, 2011 02:23 PM V1-PT DECLINES REF TO TOBACCO CESS PRGM [place] [facility] Jun 15, 2011 02:23 PM V1-PT READY TO QUIT TOBACCO USE [facility] Apr 13, 2011 10:31 AM V1-PT DECLINES REF TO TOBACCO CESS PRGM [facility] Apr 13, 2011 10:31 AM V1-PT RECEIVES TOBACCO CESS MEDS OUTSIDE [facility] Apr 13, 2011 10:31 AM V1-PT THINKING ABOUT QUIT TOBACCO USE [facility] Oct 16, 2010 08:52 AM QUIT TOBACCO USE IN PAST YEAR [facility] May 12, 2010 02:08 PM V1-PT [facility] May 12, 2010 02:08 PM V1-PT READY TO QUIT TOBACCO USE [facility] May 12, 2010 12:45 PM CURRENT SMOKER 3 cigarettes a day [facility] Radiology Reports: +/- 30 days of [...] Encounter. The data comes from all [facility]. Date/Time Radiology Report Provider Source Nov 15, 2023 10:22 AM ELBOW 3 OR MORE VIEWS(LEFT): PEBBLES MEEK [id number] -[id number] F Exm Date: NOV 15, 2023@10:22 Req Phys: CADEN FELIZ Loc: CWM/NO/PACT 6 [facility] (Req'g Loc) Img Loc: [facility] 1 Service: Unknown (Case [id number] COMPLETE) ELBOW 3 OR MORE VIEWS(LEFT) (RAD Detailed) CPT:02610 Reason for Study: pain and swelling left elbow Clinical History: 73yo woman with h/o traumatic injury in 20s, Report Status: Verified Date Reported: NOV 15, 2023 Date Verified: NOV 15, 2023 Desktop Support Engineer E-Sig:/ES/NEMO RODRIGUEZ JR Report: Study: AP, lateral, [...] Primary Interpreting Staff: NEMO RODRIGUEZ JR, Radiologist (Desktop Support Engineer) /NEMO WEISS JR [facility] Encounter Notes: All associated encounter notes This section contains the clinical notes associated to the Encounter. Date/Time Encounter Note(s) Provider Source Nov 19, 2023 08:02 AM MENTAL HEALTH NOTE : LOCAL TITLE: [facility] CC ASSIGNMENT STANDARD TITLE: MENTAL HEALTH NOTE DATE OF NOTE: NOV 19, 2023@08:02 ENTRY DATE: NOV 19, 2023@08:02:23 AUTHOR: CHASIDY MADISON COSIGNER: URGENCY: STATUS: COMPLETED [employer] Social Worker Assignment Reassignment The 's current [employer] Social Worker (MHTC) is: Treatment Team: ALINE [employer] Social Worker: CHUCKY JOHNSON Office , [phone] Pager: Digital Pager: This note documents the REASSIGNMENT of the [facility] [employer] Social Worker (MHTC) on Nov. New MHTC name: Ever Guillermo LCSW RICH Contact Information: [phone], [phone] This Port[facility]'s existing MHTC was reassigned due to: [facility] is transitioning to a new MADELINE Team /jeana/ CHASIDY MADISON [facility] CONTRACT NEGOTIATION SPECIALIST Signed: 11/19/2023 08:03 CHASIDY MADISON [facility]
--- OUTSIDE RECORDS SUMMARY | 2024-08-04 17:01 | XMS_ITS | Encounter Summary ---
Author Name [facility] [facility] [place] Address [address] [place] [address] Care Team Providers Care Nurse Plastics Name Role Phone CADEN FELIZ Primary Care [...] PLAN I Aug 19, 2019 PLAN I [id number] MEEK,SABINE ICEL PATIENT [employer] OPTIONS MEDICARE SUPPLEMEN MARCIA PLANM Y Aug 19, 2019 PLANMY [id number] MEEK,GR ICEL PATIENT [employer] OPTIONS MEDICARE SUPPLEMEN MARCIA AARP MEDIC ARE SUPPL Aug 19, 2019 PLAN MY [id number] MEEK,SABINE ICEL PATIENT AARP INS MEDICARE SUPPLEMEN MARCIA PLANM Y Aug 19, 2019 PLANMY [id number] MEEK,GR ICEL PATIENT AARP MED SUPP MEDICARE SUPPLEMEN MARCIA Jul 19, 2010 PLANMY [id number] MEEK,GR ICEL PATIENT MEDICARE (WNR) MEDICARE () PART B Aug 19, 2008 PART B [id number] MEEK,GR ICEL PATIENT MEDICARE (WNR) MEDICARE () PART B Aug 19, 2008 PART B [id number] MEEK,GR ICEL PATIENT MEDICARE (WNR) MEDICARE () PART B Aug 19, 2008 PART B [id number] MEEK,GR ICEL PATIENT MEDICARE (WNR) MEDICARE () PART B Aug 19, 2008 PART B [id number] [phone] MEEK,GR ICEL PATIENT MEDICARE (WNR) MEDICARE () PART B Aug 19, 2008 PART B [id number] [phone] MEEK,GR ICEL PATIENT MEDICARE (WNR) MEDICARE () PART B Aug 19, 2008 PART B [id number] MEEK,GR ICEL PATIENT MEDICARE (WNR) MEDICARE () PART B Aug 19, 2008 PART B [id number] [phone] MEEK,GR ICEL PATIENT MEDICARE (WNR) MEDICARE () PART A December 18, 2003 PART A [id number] MEEK,GR ICEL PATIENT MEDICARE (WNR) MEDICARE () PART A December 18, 2003 PART A [id number] MEEK,GR ICEL PATIENT MEDICARE (WNR) MEDICARE () PART A December 18, 2003 PART A [id number] [phone] MEEK,GR ICEL PATIENT MEDICARE (WNR) MEDICARE () PART A December 18, 2003 PART A [id number] MEEK,GR ICEL PATIENT MEDICARE (WNR) MEDICARE () PART A December 18, 2003 PART A [id number] MEEK,GR ICEL PATIENT MEDICARE (WNR) MEDICARE () PART A December 18, 2003 PART A [id number] SABINE MEEK PATIENT MEDICARE (WNR) MEDICARE (M) PART A December 18, 2003 PART A [id number] SABINE MEEK PATIENT Selected Encounter This section includes the information on record at [place] for the Encounter. Date/Time Encounter Type Encounter Description Reason Pro vider Source Nov 20, 2023 08:50 AM Outpatient Encounter [facility] Encounter Template Text not used by [place] Plan of Treatment: Future Appointments (+ 6 months) and Future Tests (+/- 45 days) The Plan of Treatment section includes future care activities for the patient from all [place] treatmentfacilities. This section includes future appointments and future orders which are active, pending or scheduled. Future Appointments This section includes appointments that were scheduled to occur 6 months from the date of the Encounter, up to a maximum of 20 appointments. The data comes from all [place] treatment facilities. Appointment Date/Time Appointment Type Appointme nt Facility Name Nov 25, 2023 10:00 AM AMBULATORY [facility]ICINE [facility] Nov 27, 2023 09:30 AM [facility]UL[facility]IC[facility] [place] Nov 28, 2023 09:00 AM AMBULATORY - MEDICINE [facility] [place] Nov 28, 2023 10:00 AM AMBULATORY - PSYCHIATRY [facility] Dec 05, 2023 09:00 AM AMBULATORY - REHAB MEDICIN E [facility] [place] Dec 05, 2023 09:30 AM AMBULATORY - MEDICINE [facility] Dec 09, 2023 09:30 AM AMBULATORY - MEDICINE [facility] Dec 09, 2023 11:30 AM AMBULATORY - MEDICINE [facility] Dec 12, 2023 11:30 AM AMBULATORY - NONE [facility] Dec 16, 2023 01:00 PM AMBULATORY - PSYCHIATRY [facility] December 23, 2023 01:00 PM AMBULATORY - PSYCHIATRY [facility] December 31, 2023 09:00 AM AMBULATORY [...] AMBULATORY - NONE [facility] Lab Results: +/- 30 days of [...] Range Comment Nov 15, 2023 10:10 AM [facility] VITAMIN B12 Specimen Type: SERUM No comment entered. Ordering Provider: WALE FELIZ Report Released Date/Time: Nov 15, 2023 09:56 AM Reporting Lab: [facility] [address] [facility] [address] Performing Lab: [facility] [address] [facility] [address] VITAMIN B12 806 pg/mL 200-900 Nov 15, 2023 10:10 AM [facility] MICROALBUMIN CREATININE RATIO PANEL Specimen Type: URINE No comment entered. Ordering Provider: WALE FELIZ Report Released Date/Time: Nov 15, 2023 09:56 AM Reporting Lab: [facility] [address] [facility] [address] Performing [facility]: [facility] [address] [facility] [address] MICROALBUMIN/C REATININE RATIO canc mg/g 0-29.9 MICROALBUMIN,Q UANTITATIVE < 0.5 mg/dL RR UNAVAIL CREATININE URINE 34.74 mg/dL Nov 15, 2023 10:10 AM [facility] HEMOGLOBIN A1C PANEL Specimen Type: BLOOD No comment entered. Ordering Provider: WALE FELIZ Report Released Date/Time: Nov 15, 2023 09:56 AM Reporting Lab: [facility] [address] [facility] [address] Performing Lab: [address] [address] HEMOGLOBIN A1C 6.1 H 4.0-5.6 Nov 15, 2023 10:10 AM [facility] VITAMIN D (25-OH) Specimen Type: SERUM No comment entered. Ordering Provider: WALE FELIZ Report Released Date/Time: Nov 15, 2023 09:56 AM Reporting Lab: [address] [address] Performing Lab: [address] [address] VITAMIN D (25-OH) 54 ng/mL H 20-50 Nov 15, 2023 10:10 AM [facility] BASIC METABOLIC PANEL (non-fasting) Specimen Type: SERUM No comment entered. Ordering Provider: WALE FELIZ Report Released Date/Time: Nov 15, 2023 09:56 AM Reporting Lab: [facility] [address] [facility] [address] Performing Lab: [address] [address] UREA NITROGEN 6 mg/dL L 7-25 GLUCOSE 168 mg/dL H 65-100 SODIUM 134 mmol/L L 135-145 POTASSIUM 4.3 mmol/L 3.5-5.0 CHLORIDE 99 mmol/L L 100-110 CO2 25 meq/L 20-30 CREATININE, Serum 0.66 mg/dL 0.50-1.40 eGFR(CKD-EPI 2020) >90 mL/min >60 Oct 28, 2023 09:26 AM [facility] GLUCOSE, Fingerstick Specimen Type: BLOOD Comment: For GLU FinTest performed by: Linda Vee For GLU Fin Meter #: [id number] Ordering Provider: WALE FELIZ Report Released Date/Time: Oct 28, 2023 10:19 AM Reporting Lab: [facility] [address] [facility] [address] Performing Lab: [facility] [address] [facility] [address] GLUCOSE, Fingerstick 178 mg/dL H 65-100 Social History: Smoking Status (Most current) and Tobacco Use (All prior to encounter date) This section includes the most current, and the historical, smoking and tobacco- related health factors from the [place] facility where the Encounter took place. Current Smoking Status This section includes the most current smoking, or tobacco-related health factor, from the [place] facility where the Encounter took place. Date/Time Current Smoking Status Comment [facility] Feb 08, 2023 10:00 AM [facility] Tobacco Use History This section includes a history of the smoking, or tobacco-related health factors, that were collected on or before the date of the Encounter. The data comes from the [place] facility where the Encounter took place. Date/Time Smoking Status/Tobac co Use Comment [facility] Feb 08, 2023 10:00 AM VA-TOBACCO QUIT 15 YRS OR MORE [facility] Mar 06, 2022 02:30 PM VA-TOBACCO FORMER USER [facility] Mar 06, 2022 02:30 PM VA-TOBACCO QUIT 15 YRS OR MORE [facility] Apr 04, 2021 10:28 AM VA-TOBACCO NEVER USED [facility] [place] May 03, 2020 02:00 PM VA-TOBACCO NEVER USED [facility] Feb 25, 2019 08:14 AM VA-TOBACCO FORMER USER [facility] Feb 25, 2019 08:14 AM VA-TOBACCO QUIT 5 TO < 15 YRS [facility] [place] Apr 04, 2018 10:41 AM QUIT TOBACCO USE 1-7 YEARS AGO [facility] [place] Oct 28, 2017 10:18 AM QUIT TOBACCO USE 1-7 YEARS AGO [facility] [place] Jan 22, 2017 01:08 PM QUIT TOBACCO USE 1-7 YEARS AGO [facility] [place] [facility] Jul 18, 2016 01:34 PM QUIT TOBACCO USE 1-7 YEARS AGO [facility] [place] January 10, 2016 10:32 AM QUIT TOBACCO USE 1-7 YEARS AGO [facility] [place] [facility] Oct 13, 2015 11:05 AM QUIT TOBACCO USE 1-7 YEARS AGO [facility] [place] Oct 19, 2014 01:53 PM QUIT TOBACCO USE > 7 YEARS AGO [facility] [place] [facility] January 02, 2014 01:30 AM QUIT TOBACCO USE IN PAST YEAR [facility] [place] [facility] Jun 18, 2013 09:00 AM CURRENT SMOKER 6 cigarettes qd [facility] [place] Jun 18, 2013 09:00 AM V1-PT DECLINES [facility]BACCO [facility]ESS[facility] Jun 18, 2013 09:00 AM V1-PT NOT INTERESTED IN QUIT TOBACCO USE [facility] [place] December 24, 2012 10:51 AM V1-PT DECLINES REF TO TOBACCO CESS PRGM [facility] [place] December 24, 2012 10:51 AM V1-PT DECLINES TOBACCO CESSATION MEDS [facility] [place] December 24, 2012 10:51 AM V1-PT THINKING ABOUT QUIT TOBACCO USE [facility] Jul 15, 2012 10:19 AM QUIT TOBACCO USE IN PAST YEAR [facility] [place] Jan 25, 2012 05:02 PM QUIT TOBACCO USE IN PAST YEAR [facility] [place] Sep 28, 2011 10:09 AM CURRENT SMOKER 5 cigarettes a day [facility] Jun 15, 2011 02:23 PM V1-PT DECLINES REF TO TOBACCO CESS PRGM [facility] Jun 15, 2011 02:23 PM V1-PT READY TO QUIT TOBACCO USE [facility] Apr 13, 2011 10:31 AM V1-PT DECLINES REF TO TOBACCO CESS PRGM [facility] Apr 13, 2011 10:31 AM V1-PT RECEIVES TOBACCO CESS MEDS OUTSIDE [facility] Apr 13, 2011 10:31 AM V1-PT THINKING ABOUT QUIT TOBACCO USE [facility] Oct 16, 2010 08:52 AM QUIT TOBACCO USE IN PAST YEAR [facility] May 12, 2010 02:08 PM V1-PT [facility] May 12, 2010 02:08 PM V1-PT READY TO QUIT TOBACCO USE [facility] May 12, 2010 12:45 PM CURRENT SMOKER 3 cigarettes a day [facility] Radiology Reports: +/- 30 days of [...] the Encounter. The data comes from all [facility]. Date/Time Radiology Report Provider Source Nov 15, 2023 10:22 AM ELBOW 3 OR MORE VIEWS(LEFT): FANTASMAPEBBLES Cristina [id number] [phone] F Exm Date: NOV 15, 2023@10:22 Req Phys: CADEN FELIZ Loc: CWM/NO/PACT 6 WH (Req'g Loc) Img Loc: [facility] 1 Service: Unknown (Case [id number] COMPLETE) ELBOW 3 OR MORE VIEWS(LEFT) (RAD Detailed) CPT:40528 Reason for Study: pain and swelling left elbow Clinical History: 73yo woman with h/o traumatic injury in 20s, Report Status: Verified Date Reported: NOV 15, 2023 Date Verified: NOV 15, 2023 Web Site Specialist E-Sig:/ES/NEMO RODRIGUEZ JR Report: Study: AP, lateral, [...] Primary Interpreting Staff: NEMO RODRIGUEZ JR, Radiologist (Web Site Specialist) /NEMO WEISS JR [facility] Encounter Notes: All associated encounter notes This section contains the clinical notes associated to the Encounter. Date/Time Encounter Note(s) Provider Source Nov 20, 2023 08:50 AM LETTERS: LOCAL TITLE: PATIENT LETTER (B) STANDARD TITLE: LETTERS DATE OF NOTE: NOV 20, 2023@08:50 ENTRY DATE: NOV 20, 2023@08:50:23 AUTHOR: ANALILIA BLEVINS EXP COSIGNER: URGENCY: STATUS: COMPLETED [facility] Toll Free [facility]- ext. [phone] NOV 20, 2023 PEBBLES MEEK [address] [place] [address] Dear PEBBLES MEEK Your provider placed a consult for you for [facility] services and have been unable to reach you by phone. The [facility] aims to support you in pursuing what matters most to you and includes services that support your values and overall wellness. To schedule this appointment please call us at ext. [phone]. Our booking appointment hours are Saturday through Saturday from 8:00 am to 4:00 pm. Please leave a message if you receive voicemail and let us know a good time and telephone number where we can reach you. If we dont hear back from you within 14 days from the date of this letter, we will discontinue the request. If you have already scheduled this appointment, please disregard this letter. Your health is important to us. If you have any additional questions regarding The [facility] and Coaching Services, please do not hesitate to contact [facility] by contacting [employer] Credit Collections Manager at [phone] Ext. [phone]. Thank you for your service to our nation, and we look forward to hearing from you soon. Sincerely, [facility] [address] [place] [id number] * * ANALILIA BLEVINS [facility] ([id number])
--- OUTSIDE RECORDS SUMMARY | 2024-08-04 17:02 | XMS_ITS | Encounter Summary ---
Author Name [facility] [place] [facility] [place] Address [address] [place] [address] Care Team Providers Care Plasterer Apprentice Name Role Phone CADEN FELIZ Primary Care [...] PLAN I Aug 19, 2019 PLAN I [id number] MEEK,GR ICEL PATIENT [employer] OPTIONS MEDICARE SUPPLEMEN MARCIA PLANM Y Aug 19, 2019 PLANMY [id number] MEEK,GR ICEL PATIENT [employer] OPTIONS MEDICARE SUPPLEMEN MARCIA AARP MEDIC ARE SUPPL Aug 19, 2019 PLAN MY [id number] [phone] MEEK,GR ICEL PATIENT AARP INS MEDICARE SUPPLEMEN MARCIA PLANM Y Aug 19, 2019 PLANMY [id number] [phone] MEEK,GR ICEL PATIENT AARP MED SUPP MEDICARE SUPPLEMEN MARCIA Jul 19, 2010 PLANMY [id number] MEEK,GR ICEL PATIENT MEDICARE (WNR) MEDICARE () PART B Aug 19, 2008 PART B [id number] MEEK,GR ICEL PATIENT MEDICARE (WNR) MEDICARE () PART B Aug 19, 2008 PART B [id number] [phone] MEEK,GR ICEL PATIENT MEDICARE (WNR) MEDICARE () PART B Aug 19, 2008 PART B [id number] MEEK,GR ICEL PATIENT MEDICARE (WNR) MEDICARE () PART B Aug 19, 2008 PART B [id number] [phone] MEEK,GR ICEL PATIENT MEDICARE (WNR) MEDICARE () PART B Aug 19, 2008 PART B [id number] [phone] MEEK,GR ICEL PATIENT MEDICARE (WNR) MEDICARE () PART B Aug 19, 2008 PART B [id number] MEEK,GR ICEL PATIENT MEDICARE (WNR) MEDICARE () PART B Aug 19, 2008 PART B [id number] MEEK,GR ICEL PATIENT MEDICARE (WNR) MEDICARE () PART A December 18, 2003 PART A [id number] [phone] MEEK,GR ICEL PATIENT MEDICARE (WNR) MEDICARE () PART A December 18, 2003 PART A [id number] MEEK,GR ICEL PATIENT MEDICARE (WNR) MEDICARE () PART A December 18, 2003 PART A [id number] [phone] MEEK,GR ICEL PATIENT MEDICARE (WNR) MEDICARE () PART A December 18, 2003 PART A [id number] MEEK,GR ICEL PATIENT MEDICARE (WNR) MEDICARE () PART A December 18, 2003 PART A [id number] MEEK,GR ICEL PATIENT MEDICARE (WNR) MEDICARE () PART A December 18, 2003 PART A [id number] SABINE MEEK PATIENT MEDICARE (WNR) MEDICARE (M) PART A December 18, 2003 PART A [id number] [phone] SABINE MEEK PATIENT Selected Encounter This section includes the information on record at [place] for the Encounter. 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 Date/Time Primary/Secondary Diagnosis Diagnosis Name Provider Source Nov 28, 2023 09:23 AM PRIMARY Other low back pain [facility]REVI[facility] [place] [facility] [place] [facility] Plan of Treatment: Future Appointments [...] Appointment Type Appointme nt Facility Name Dec 05, 2023 09:00 AM AMBULATORY - [facility]ICIN [facility] [place] [facility] Dec 05, 2023 09:30 AM AMBULATORY - MEDICINE [place] [facility] [place] [facility] Dec 09, 2023 09:30 AM AM[place]ULATORY [place]ICINE [place] [facility] [place] [facility] Dec 09, 2023 11:30 AM AM[place]ULATORY [place]ICINE [place] [facility] [place] [facility] Dec 12, 2023 11:30 AM AMBULATORY - NONE [facility] [place] [facility] Dec 16, 2023 01:00 PM AMBULATORY - PSYCHIATRY [place] [facility] [place] [facility] December 23, 2023 01:00 PM AMBULATORY - PS[place]CHIATRY [place] [facility] [place] [facility] December 31, 2023 09:00 AM AMBULATORY - MEDICINE [place] [facility] [place] [facility] January 06, 2024 11:00 AM AMBULATORY [...] - NONE [facility] [place] [facility] Lab Results: +/- 30 days of the encounter This section includes the Chemistry and Hematology Lab Results on record with [place] for the patient. Radiology Reports and Pathology Reports are provided separately, in subsequent sections. Lab Results This section contains the Chemistry/Hematology Results that were resulted 30 days before or 30 daysafter the date of the Encounter. Date/Time Source Result Type Result - Unit Interpretation Reference Range Comment Nov 15, 2023 10:10 AM [place] [facility] [place] [facility] VITAMIN B12 Specimen Type: SERUM No comment entered. Ordering Provider: WALE FELIZ Report Released Date/Time: Nov 15, 2023 09:56 AM Reporting Lab: [facility] [place] [facility] [address] [address] [address] Performing Lab: [facility] [place] [facility] [address] [address] [address] VITAMIN B12 806 pg/mL 200-900 Nov 15, 2023 10:10 AM [place] [facility] [place] [facility] MICROALBUMIN CREATININE RATIO PANEL Specimen Type: URINE No comment entered. Ordering Provider: WALE FELIZ Report Released Date/Time: Nov 15, 2023 09:56 AM Reporting Lab[facility] [address] [facility] [address] Performing Lab: [facility] [address] [facility] [address] MICROALBUMIN/C REATININE RATIO canc mg/g 0-29.9 MICROALBUMIN,Q UANTITATIVE < 0.5 mg/dL RR UNAVAIL CREATININE URINE 34.74 mg/dL Nov 15, 2023 10:10 AM [facility] HEMOGLOBIN A1C PANEL Specimen Type: BLOOD No comment entered. Ordering Provider: WALE FELIZ Report Released Date/Time: Nov 15, 2023 09:56 AM Reporting Lab: [address] [address] Performing Lab: [address] [address] HEMOGLOBIN A1C 6.1 H 4.0-5.6 Nov 15, 2023 10:10 AM [facility] VITAMIN D (25-OH) Specimen Type: SERUM No comment entered. Ordering Provider: WALE FELIZ Report Released Date/Time: Nov 15, 2023 09:56 AM Reporting Lab: [address] [address] Performing Lab: [address] [address] VITAMIN D (25-OH) 54 ng/mL H 20-50 Nov 15, 2023 10:10 AM [facility] BASIC METABOLIC PANEL (non-fasting) Specimen Type: SERUM No comment entered. Ordering Provider: WALE FELIZ Report Released Date/Time: Nov 15, 2023 09:56 AM Reporting Lab: [address] [address] Performing Lab: [address] [address] UREA NITROGEN 6 mg/dL L 7-25 GLUCOSE [...] smoking, or tobacco-related health factor, from the [place] facility where the Encounter took place. Date/Time Current Smoking Status Comment [facility] Feb 08, 2023 10:00 AM VA-TOBACCO FORMER USER [place] [facility] [place] [facility] Tobacco Use History This section includes a history of the smoking, or tobacco-related health factors, that were collected on or before the date of the Encounter. The data comes from the [place] facility where the Encounter took place. Date/Time Smoking Status/Tobac co Use Comment Facility Feb 08, 2023 10:00 AM VA-TOBACCO QUIT 15 YRS OR MORE [facility] [place] [facility] Mar 06, 2022 02:30 PM VA-TOBACCO FORMER USER [facility] [place] [facility] Mar 06, 2022 02:30 PM VA-TOBACCO QUIT 15 YRS OR MORE [facility] [place] [facility] Apr 04, 2021 10:28 AM VA-TOBACCO NEVER USED [facility] [place] [facility] May 03, 2020 02:00 PM VA-TOBACCO NEVER USED [facility] [place] [facility] Feb 25, 2019 08:14 AM VA-TOBACCO FORMER USER [facility] [place] [facility] Feb 25, 2019 08:14 AM VA-TOBACCO QUIT 5 TO < 15 YRS [facility] [place] [facility] Apr 04, 2018 10:41 AM QUIT TOBACCO USE 1-7 YEARS AGO [facility] [place] [facility] Oct 28, 2017 10:18 AM QUIT TOBACCO USE 1-7 YEARS AGO [facility] [place] [facility] Jan 22, 2017 01:08 PM QUIT TOBACCO USE 1-7 YEARS AGO [facility] [place] [facility] Jul 18, 2016 01:34 PM QUIT TOBACCO USE 1-7 YEARS AGO [facility] [place] [facility] January 10, 2016 10:32 AM QUIT TOBACCO USE 1-7 YEARS AGO [facility] [place] [facility] Oct 13, 2015 11:05 AM QUIT TOBACCO USE 1-7 YEARS AGO [facility] [place] [facility] Oct 19, 2014 01:53 PM QUIT TOBACCO USE > 7 YEARS AGO [facility] [place] [facility] January 02, 2014 01:30 AM QUIT TOBACCO USE IN PAST YEAR [facility] [place] [facility] Jun 18, 2013 09:00 AM CURRENT SMOKER 6 cigarettes qd [facility] [place] [facility] Jun 18, 2013 09:00 AM V1-PT DECLINES [facility]BACCO [facility]ESS[facility] [place] [facility] Jun 18, 2013 09:00 AM V1-PT NOT INTERESTED IN QUIT TOBACCO USE [facility] [place] [facility] December 24, 2012 10:51 AM V1-PT DECLINES REF TO TOBACCO CESS PRGM [facility] [place] [facility] December 24, 2012 10:51 AM V1-PT DECLINES TOBACCO CESSATION MEDS [facility] [place] [facility] December 24, 2012 10:51 AM V1-PT THINKING ABOUT QUIT [facility]ACCO [facility] [place] [facility] Jul 15, 2012 10:19 AM QUIT TOBACCO USE IN PAST YEAR [facility] [place] [facility] Jan 25, 2012 05:02 PM QUIT TOBACCO USE IN PAST YEAR [facility] [place] [facility] Sep 28, 2011 10:09 AM CURRENT SMOKER 5 cigarettes a day [facility] [place] [facility] Jun 15, 2011 02:23 PM V1-PT DECLINES REF TO TOBACCO CESS PRGM [facility] [place] [facility] Jun 15, 2011 02:23 PM V1-PT READY TO QUIT TOBACCO USE [facility] [place] [facility] Apr 13, 2011 10:31 AM V1-PT DECLINES REF TO TOBACCO CESS PRGM [place] [facility] Apr 13, 2011 10:31 AM V1-PT RECEIVES TOBACCO CESS MEDS OUTSIDE [facility] Apr 13, 2011 10:31 AM V1-PT THINKING ABOUT QUIT TOBACCO USE [facility] Oct 16, 2010 08:52 AM QUIT TOBACCO USE IN PAST YEAR [facility] May 12, 2010 02:08 PM V1-PT DECLINES REF TO TOBACCO CESS PRGM [facility] May 12, 2010 02:08 PM V1-PT READY TO QUIT TOBACCO USE [facility] May 12, 2010 12:45 PM CURRENT SMOKER 3 cigarettes a day [facility] Radiology Reports: +/- 30 days of [...] the Encounter. The data comes from all [facility] facilities. Date/Time Radiology Report Provider Source Nov 15, 2023 10:22 AM ELBOW 3 OR MORE VIEWS(LEFT): PEBBLES MEEK [id number] [id number] F Exm Date: NOV 15, 2023@10:22 Req Phys: CADEN FELIZ Loc: CWM/NO/PACT 6 WH (Req'g Loc) Img Loc: [facility] 1 Service: Unknown (Case [id number] COMPLETE) ELBOW 3 OR MORE VIEWS(LEFT) (RAD Detailed) CPT:74165 Reason for Study: pain and swelling left elbow Clinical History: 73yo woman with h/o traumatic injury in 20s, Report Status: Verified Date Reported: NOV 15, 2023 Date Verified: NOV 15, 2023 Milk Sampler E-Sig:/ES/NEMO RODRIGUEZ JR Report: Study: AP, lateral, [...] Primary Interpreting Staff: NEMO RODRIGUEZ JR, Radiologist (Milk Sampler) /NEMO WEISS JR [place] [facility] Encounter Notes: All associated encounter notes This section contains the clinical notes associated to the Encounter. Date/Time Encounter Note(s) Provider Source Nov 28, 2023 09:01 AM CHIROPRACTIC NOTE: LOCAL TITLE: CHIROPRACTOR PROGRESS NOTE STANDARD TITLE: CHIROPRACTIC NOTE DATE OF NOTE: NOV 28, 2023@09:01 ENTRY DATE: NOV 28, 2023@09:01:33 AUTHOR: MARIAN TREVIÑO COSIGNER: URGENCY: STATUS: COMPLETED [...] 08/30/2015 CADEN FELIZ Diabetes mellitus (SNOMED CT 888204 07/20/2015 JENN SRIVASTAVA Restless Leg Syndrome * (ICD-9-CM 3 07/15/2012 DIPAK JOSEPH Knee pain (SNOMED CT 4763943875) R5 03/26/2022 CADEN FELIZ Paroxysmal atrial fibrillation (SNO 08/30/2015 CADEN FELIZ Other and unspecified Sleep Apnea 7 07/21/2010 BRITNEY SOTO Chuy Hyperlipidemia (SNOMED CT 58930123) 08/30/2015 CADEN FELIZ Chronic anxiety (SNOMED CT 97960316 12/09/2020 JACQUE MISTRY Asthma (SNOMED CT 690808312) J45.99 08/25/2015 MARIUM HUERTA Chronic depression ([place] [address] 12/09/2020 JACQUE MISTRY PTSD - Post-traumatic stress disord 12/09/2020 JACQUE MISTRY Knee Joint replacement Status (Pros 08/30/2015 AMELIA HERNANDEZ Past Surgeries:, tubal ligation, left ankle fracture-has plate and screws, R forearm for necrosis, R knee arthroplasty HX osteonecrosis - R knee; R wrist Patient [facility] [place] [facility] with report that she continues to feel much improvement in her low back. Followed by PT for her shoulder which is also improving. 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 Visit 7 F/U 4 weekly Seek urgent care as needed. CMT: chiropractic manipulative therapy SMT: Spinal Manipulative Therapy F/D: Flexion Distraction MFR: Myofascial Release S-I: Sacroiliac MFTP: Myofascial Trigger Point NRS: Numeric Rating Scale N/T: Numbness/Tingling PIR: Post isometric relaxation /es/ [facility] CHIROPRACTOR Signed: 11/28/2023 09:23 [facility]
--- OUTSIDE RECORDS SUMMARY | 2024-08-04 17:02 | XMS_ITS | Encounter Summary ---
Author Name [facility] [place] [facility] [place] [facility] [place] Address [address] [place] [address] Care Team Providers Care Director Digital Name Role Phone CADEN FELIZ Primary Care [...] PLAN I Aug 19, 2019 PLAN I [id number] MEEK,GR ICEL PATIENT [employer] OPTIONS MEDICARE SUPPLEMEN MARCIA PLANM Y Aug 19, 2019 PLANMY [id number] MEEK,GR ICEL PATIENT [employer] OPT[employer] MEDICARE SUPPLEMEN MARCIA AARP MEDIC ARE SUPPL Aug 19, 2019 PLAN MY [id number] [phone] MEEK,GR ICEL PATIENT AARP INS MEDICARE SUPPLEMEN MARCIA PLANM Y Aug 19, 2019 PLANMY [id number] [phone] MEEK,GR ICEL PATIENT AARP MED SUPP MEDICARE SUPPLEMEN MARCIA Jul 19, 2010 PLANMY [id number] [phone] MEEK,GR ICEL PATIENT MEDICARE (WNR) MEDICARE () PART B Aug 19, 2008 PART B [id number] [phone] MEEK,GR ICEL PATIENT MEDICARE (WNR) MEDICARE () PART B Aug 19, 2008 PART B [id number] MEEK,GR ICEL PATIENT MEDICARE (WNR) MEDICARE () PART B Aug 19, 2008 PART B [id number] [phone] MEEK,GR ICEL PATIENT MEDICARE (WNR) MEDICARE () PART B Aug 19, 2008 PART B [id number] [phone] MEEK,GR ICEL PATIENT MEDICARE (WNR) MEDICARE () PART B Aug 19, 2008 PART B [id number] [phone] MEEK,GR ICEL PATIENT MEDICARE (WNR) MEDICARE () PART B Aug 19, 2008 PART B [id number] [phone] MEEK,GR ICEL PATIENT MEDICARE (WNR) MEDICARE () PART B Aug 19, 2008 PART B [id number] MEEK,GR ICEL PATIENT MEDICARE (WNR) MEDICARE () PART A December 18, 2003 PART A [id number] [phone] MEEK,GR ICEL PATIENT MEDICARE (WNR) MEDICARE () PART A December 18, 2003 PART A [id number] MEEK,GR ICEL PATIENT MEDICARE (WNR) MEDICARE () PART A December 18, 2003 PART A [id number] MEEK,GR ICEL PATIENT MEDICARE (WNR) MEDICARE () PART A December 18, 2003 PART A [id number] MEEK,GR ICEL PATIENT MEDICARE (WNR) MEDICARE () PART A December 18, 2003 PART A [id number] MEEK,GR ICEL PATIENT MEDICARE (WNR) MEDICARE () PART A December 18, 2003 PART A [id number] SABINE MEEK PATIENT MEDICARE (WNR) MEDICARE (M) PART A December 18, 2003 PART A [id number] SABINE MEEK PATIENT Selected Encounter This section includes the information [place] at [place] for the Encounter. Date/Time Encounter Type Encounter Description Reason Pro vider Source Nov 27, 2023 09:30 AM Outpatient Encounter CLINICAL PHARMACY IHE Encounter Template Text not used by [place] Plan of Treatment: Future Appointments (+ 6 months) and Future Tests (+/- 45 days) The Plan of Treatment section includes future care activities for the patient from all [place] treatmentfacilities. This section includes future appointments and future orders which are active, pending or scheduled. Future Appointments This section includes appointments that were scheduled to occur 6 months from the date of the Encounter, up to a maximum of 20 appointments. The data comes from all [place] treatment facilities. Appointment Date/Time Appointment Type Appointme nt Facility Name Nov 28, 2023 09:00 AM AM[place]ULATORY [place]INE [place] [facility] [place] [facility] Nov 28, 2023 10:00 AM AMBULATORY - [facility]IATRY [facility] [place] [facility] Dec 05, 2023 09:00 AM AMBULATORY - REHAB MEDICIN E [facility] [place] [facility] Dec 05, 2023 09:30 AM AM[facility]ULATORY [place] [facility]ICINE [place] [facility] [place] [facility] Dec 09, 2023 09:30 AM AM[facility]ULATORY [place] MEDICINE [place] [facility] [place] [facility] Dec 09, 2023 11:30 AM AMBULATORY [facility] MEDICINE [place] [facility] [place] [facility] Dec 12, 2023 11:30 AM AMBULATORY - NONE [facility] [place] [facility] Dec 16, 2023 01:00 PM AMBULATORY - PSYCHIATRY [facility] [place] [facility] December 23, 2023 01:00 PM AMBULATORY - PSYCHIATRY [facility] [place] [facility] December [...] Range Comment Nov 15, 2023 10:10 AM [place] [facility] [place] [facility] VITAMIN B12 Specimen Type: SERUM No comment entered. Ordering Provider: WALE FELIZ Report Released Date/Time: Nov 15, 2023 09:56 AM Reporting Lab: [place] [facility] [place] [facility] [address] [facility] [address] Performing Lab: [place] [facility] [place] [facility] [address] [facility] [address] VITAMIN B12 806 pg/mL 200-900 Nov 15, 2023 10:10 AM [place] [facility] [place] [facility] MICROALBUMIN CREATININE RATIO PANEL Specimen Type: URINE No comment entered. Ordering Provider: WALE FELIZ Report Released Date/Time: Nov 15, 2023 09:56 AM Reporting Lab: [place] [facility] [place] [facility] [address] [facility] [address] Performing Lab: [place] [facility] [place] [address] MICROALBUMIN/C REATININE RATIO canc mg/g 0-29.9 MICROALBUMIN,Q UANTITATIVE < 0.5 mg/dL RR UNAVAIL CREATININE URINE 34.74 mg/dL Nov 15, 2023 10:10 AM [facility] HEMOGLOBIN A1C PANEL Specimen Type: BLOOD No comment entered. Ordering Provider: WALE FELIZ Report Released Date/Time: Nov 15, 2023 09:56 AM Reporting Lab: [address] [address] Performing Lab: [address] [address] HEMOGLOBIN A1C 6.1 H 4.0-5.6 Nov 15, 2023 10:10 AM [facility] VITAMIN D (25-OH) Specimen Type: SERUM No comment entered. Ordering Provider: WALE FELIZ Report Released Date/Time: Nov 15, 2023 09:56 AM Reporting Lab: [address] [address] Performing Lab: [address] [address] VITAMIN D (25-OH) 54 ng/mL H 20-50 Nov 15, 2023 10:10 AM [facility] BASIC METABOLIC PANEL (non-fasting) Specimen Type: SERUM No comment entered. Ordering Provider: WALE FELIZ Report Released Date/Time: Nov 15, 2023 09:56 AM Reporting Lab: [address] [address] Performing Lab: [address] [address] UREA NITROGEN 6 mg/dL L 7-25 GLUCOSE [...] and tobacco- related health factors from the [place] facility where the Encounter took place. Current Smoking Status This section includes the most current smoking, or tobacco-related health factor, from the [place] facility where the Encounter took place. Date/Time Current Smoking Status Comment Facil it Feb 08, 2023 10:00 AM VA-TOBACCO FORMER USER [place] [facility] [place] [facility] Tobacco Use History This section includes a history of the smoking, or tobacco-related health factors, that were collected on or before the date of the Encounter. The data comes from the [place] facility where the Encounter took place. Date/Time Smoking Status/Tobac co Use Comment Facility Feb 08, 2023 10:00 AM VA-TOBACCO QUIT 15 YRS OR MORE [facility] [place] [facility] Mar 06, 2022 02:30 PM VA-TOBACCO FORMER USER [facility] [place] [facility] Mar 06, 2022 02:30 PM VA-TOBACCO QUIT 15 YRS OR MORE [facility] [place] [facility] Apr 04, 2021 10:28 AM VA-TOBACCO NEVER USED [place] [facility] [place] [facility] May 03, 2020 02:00 PM VA-TOBACCO NEVER USED [place] [facility] [place] [facility] Feb 25, 2019 08:14 AM VA-TOBACCO FORMER USER [facility] [place] [facility] Feb 25, 2019 08:14 AM VA-TOBACCO QUIT 5 TO < 15 YRS [facility] [place] [facility] Apr [...] AM QUIT TOBACCO USE 1-7 YEARS AGO [place] [facility] [place] [facility] Oct 19, 2014 01:53 PM QUIT TOBACCO USE > 7 YEARS AGO [place] [facility] [place] [facility] January 02, 2014 01:30 AM QUIT TOBACCO USE [facility]ST [facility]AR [facility] [place] [facility] Jun 18, 2013 09:00 AM CURRENT SMOKER 6 cigarettes qd [place] [facility] [place] [facility] Jun 18, 2013 09:00 AM V1-PT DECLINES TOBACCO CESSATION MEDS [place] [facility] [place] [facility] Jun 18, 2013 09:00 AM V1-PT NOT INTERESTED IN QUIT TOBACCO USE [facility] [place] [facility] December 24, 2012 10:51 AM V1-PT DECLINES REF TO TOBACCO CESS PRGM [facility] [place] [facility] December 24, 2012 10:51 AM V1-PT DECLINES TOBACCO CESSATION MEDS [facility] [place] [facility] December 24, 2012 10:51 AM V1-PT THINKING ABOUT QUIT TOBACCO USE [facility] [place] [facility] Jul 15, 2012 10:19 AM QUIT TOBACCO USE IN PAST YEAR [facility] [place] [facility] Jan 25, 2012 05:02 PM QUIT TOBACCO USE IN PAST YEAR [facility] [place] [facility] Sep 28, 2011 10:09 AM CURRENT SMOKER 5 cigarettes a day [facility] [place] [facility] Jun 15, 2011 02:23 PM V1-PT DECLINES REF TO TOBACCO CESS PRGM [facility] [place] [facility] Jun 15, 2011 02:23 PM V1-PT READY TO QUIT TOBACCO USE [place] [facility] [place] [facility] Apr 13, 2011 10:31 AM V1-PT DECLINES REF TO TOBACCO CESS PR[facility] [place] [facility] Apr 13, 2011 10:31 AM V1-PT RECEIVES TOBACCO CESS MEDS OUTSIDE [facility] [place] [facility] Apr 13, 2011 10:31 AM V1-PT THINKING ABOUT QUIT TOBACCO USE [facility] [place] [place] [facility] Oct 16, 2010 08:52 AM QUIT TOBACCO USE IN PAST YEAR [facility] May 12, 2010 02:08 PM V1-PT DECLINES REF TO TOBACCO CESS [facility] May 12, 2010 02:08 PM V1-PT READY TO QUIT TOBACCO USE [facility] May 12, 2010 12:45 PM CURRENT SMOKER 3 cigarettes a day [facility] Radiology Reports: +/- 30 days of [...] ELBOW 3 OR MORE VIEWS(LEFT): PEBBLES MEEK [id number] -[id number] F Exm Date: NOV 15, 2023@10:22 Req Phys: CADEN FELIZ Loc: CWM/NO/PACT 6 WH (Req'g Loc) Img Loc: [facility] 1 Service: Unknown (Case [id number] COMPLETE) ELBOW 3 OR MORE VIEWS(LEFT) (RAD Detailed) CPT:72742 Reason for Study: pain and swelling left elbow Clinical History: 73yo woman with h/o traumatic injury in 20s, Report Status: Verified Date Reported: NOV 15, 2023 Date Verified: NOV 15, 2023 Automatic Spinning Lathe Setter E-Sig:/ES/NEMO RODRIGUEZ JR Report: Study: AP, lateral, [...] Primary Interpreting Staff: NEMO RODRIGUEZ JR, Radiologist (Automatic Spinning Lathe Setter) /NEMO WEISS JR [place] [facility] Encounter Notes: All associated encounter notes This section contains the clinical notes associated to the Encounter. Date/Time Encounter Note(s) Provider Source Nov 27, 2023 03:12 PM CLERICAL NOTE: LOCAL TITLE: APPOINTMENT NO SHOW STANDARD TITLE: CLERICAL NOTE DATE OF NOTE: NOV 27, 2023@15:12 ENTRY DATE: NOV 27, 2023@15:12:39 AUTHOR: BO RAMIREZ EXP COSIGNER: URGENCY: STATUS: COMPLETED Patient Name: PEBBLES MEEK Patient SSN: [id number] Date and time of Appointment No show : 11/27/23 09:30 PATIENT PHONE - PHONE NUMBER [CELLULAR] - Patient's medical record was reviewed. Follow-up actions were determined and initiated: Please check/complete as applies: [X]Telephoned Directly [ ]Re-scheduled for next available appt [ ]Sent a N0-show letter ( must call for appointment) [ ]Other (Emergent/Overbook, etc.): Additional Comments: Please no show visit: CWM/NO/PHARM 3 @0930 Please reschedule CWM/NO/PHARM PACT 3 12/09/23 @0930 X 30 MINS Future Clinic Visits 11/28/2023 09:00 CWM/NO/CHIROPRACTOR 11/28/2023 10:00 CWM/NO/MHC/WEISMOORE 11/28/2023 11:00 CWM/NO/DENTAL/DMD4 12/05/2023 09:00 CWM/NO/PHYSICAL THERAPY A 12/05/2023 09:30 CWM/NO/CHIROPRACTOR 12/09/2023 11:30 COM CARE-GI GENERAL 05/05/2024 09:30 CWM/NO/PODIATRY A 05/08/2024 09:00 CWM/NO/PACT 6 WH 07/13/2024 11:30 NHM/OPTOMETRY/ELENA /jeana/ BO RAMIREZ PHARMD,BCPS CLINICAL PHARMACY PRACTITIONER Signed: 11/27/2023 15:18 Receipt Acknowledged By: 11/27/2023 15:26 /jeana/ CHAI HAMMOND for FRANNY RAMIREZ,[facility] [place] [facility]
--- OUTSIDE RECORDS SUMMARY | 2024-08-04 17:03 | XMS_ITS ---
Author Name [facility] [place] [facility] [place] Address [address] [place] [address] Care Team Providers Care Merchandise Coordinator Name Role Phone CADEN FELIZ Primary [...] PLAN I Aug 19, 2019 PLAN I [id number] MEEK,SABINE ICEL PATIENT [employer] OPTIONS MEDICARE SUPPLEMEN MARCIA PLANM Y Aug 19, 2019 PLANMY [id number] MEEK,GR ICEL PATIENT [employer] OPTIONS MEDICARE SUPPLEMEN MARCIA [employer] MEDIC ARE SUPPL Aug 19, 2019 PLAN MY [id number] MEEK,SABINE ICEL PATIENT A[employer] INS MEDICARE SUPPLEMEN MARCIA PLANM Y Aug 19, 2019 PLANMY [id number] [phone] MEEK,GR ICEL PATIENT AARP MED SUPP MEDICARE SUPPLEMEN MARCIA Jul 19, 2010 PLANMY [id number] MEEK,GR ICEL PATIENT MEDICARE (WNR) MEDICARE () PART B Aug 19, 2008 PART B [id number] MEEK,GR ICEL PATIENT MEDICARE (WNR) MEDICARE () PART B Aug 19, 2008 PART B [id number] [phone] MEEK,GR ICEL PATIENT MEDICARE (WNR) MEDICARE () PART B Aug 19, 2008 PART B [id number] [phone] MEEK,GR ICEL PATIENT MEDICARE (WNR) MEDICARE () PART B Aug 19, 2008 PART B [id number] [phone] MEEK,GR ICEL PATIENT MEDICARE (WNR) MEDICARE () PART B Aug 19, 2008 PART B [id number] MEEK,GR ICEL PATIENT MEDICARE (WNR) MEDICARE () PART B Aug 19, 2008 PART B [id number] [phone] MEEK,GR ICEL PATIENT MEDICARE (WNR) MEDICARE () PART B Aug 19, 2008 PART B [id number] [phone] MEEK,GR ICEL PATIENT MEDICARE (WNR) MEDICARE () PART A December 18, 2003 PART A [id number] MEEK,GR ICEL PATIENT MEDICARE (WNR) MEDICARE () PART A December 18, 2003 PART A [id number] MEEK,GR ICEL PATIENT MEDICARE (WNR) MEDICARE () PART A December 18, 2003 PART A [id number] MEEK,GR ICEL PATIENT MEDICARE (WNR) MEDICARE () PART A December 18, 2003 PART A [id number] [phone] MEEK,GR ICEL PATIENT MEDICARE (WNR) MEDICARE () PART A December 18, 2003 PART A [id number] [phone] MEEK,GR ICEL PATIENT MEDICARE (WNR) MEDICARE () PART A December 18, 2003 PART A [id number] SABINE MEEK PATIENT MEDICARE (WNR) MEDICARE (M) PART A December 18, 2003 PART A [id number] [id number] SABINE MEEK PATIENT Selected Encounter This section includes the [place] for the Encounter. Date/Time Encounter Type Encounter Description Reason Pro vider Source December 30, 2023 01:00 PM Outpatient Encounter [facility] Encounter Template Text not used by [place] Plan of Treatment: Future Appointments (+ 6 months) and Future Tests (+/- 45 days) The Plan of Treatment section includes future care activities for the patient from all [place] treatmentfacilities. This section includes future appointments and future orders which are active, pending or scheduled. Future Appointments This section includes appointments that were scheduled to occur 6 months from the date of the Encounter, up to a maximum of 20 appointments. The data comes from all [place] treatment facilities. Appointment Date/Time Appointment Type Appointme nt Facility Name December 31, 2023 09:00 AM [place] [facility] [place] [facility] January 06, 2024 11:00 AM AMBUL[place]ORY [place]ATRY [place] [facility] [place] [facility] January 06, 2024 01:00 PM AMBULATORY - PSYCHIATRY [facility] [place] [facility] January 07, 2024 08:00 AM AM[place]ATORY [place]ICINE [place] [facility] [facility] January 09, 2024 09:00 AM AMBULATORY [place]IATRY [place] [facility] [place] [facility] January 14, 2024 09:30 AM AM[place]ULATORY [place]ICINE [place] [facility] [place] [facility] January 16, 2024 10:30 AM AMBULATORY - NONE [facility] [place] [facility] Jan 20, 2024 01:00 PM AMBULATORY - PSYCHIATRY [facility] [place] [facility] Jan 22, 2024 03:00 PM AMBULATORY - NONE [facility] [place] [facility] Jan 27, 2024 01:00 PM AMBULATORY - PSYCHIATRY [facility] [place] [facility] Feb 03, 2024 01:00 PM AMBULATORY - PSYCHIATRY [facility] [place] [facility] Feb 10, 2024 01:00 PM AMBULATORY - PSYCHIATRY [facility] [place] [facility] Feb 10, 2024 02:00 PM AMBULATORY - NONE [facility] [place] [facility] Feb 17, 2024 12:30 PM AMBULATORY - NONE [facility] [place] [facility] Feb 17, 2024 01:00 PM AMBULATORY - PSYCHIATRY [facility] [place] [facility] Feb 21, 2024 08:30 AM AMBULATORY - MEDICINE [facility] [place] [facility] Feb 24, 2024 01:00 PM AMBULATORY - PSYCHIATRY [facility] [place] [facility] Feb 28, 2024 11:30 AM AMBULATORY - MEDICINE [facility] [place] [facility] Mar 02, 2024 01:00 PM AMBULATORY - PSYCHIATRY [facility] [place] [facility] Mar 06, 2024 09:30 AM AMBULATORY - MEDICINE [facility] [place] [facility] Social History: Smoking Status (Most current) and Tobacco Use (All prior to encounter date) This section includes the most current, and the historical, smoking and tobacco- related health factors from the [place] facility where the Encounter took place. Current Smoking Status This section includes the most current smoking, or tobacco-related health factor, from the [place] facility where the Encounter took place. Date/Time Current Smoking Status Comment [facility] Feb 08, 2023 10:00 AM VA-TOBACCO FORMER USER [place] [facility] [place] [facility] Tobacco Use History This section includes a history of the smoking, or tobacco-related health factors, that were collected on or before the date of the Encounter. The data comes from the [place] facility where the Encounter took place. Date/Time Smoking Status/Tobac co Use Comment Facility Feb 08, 2023 10:00 AM VA-TOBACCO QUIT 15 YRS OR MORE [facility] [place] [facility] Mar 06, 2022 02:30 PM VA-TOBACCO FORMER USER [facility] [place] [facility] Mar 06, 2022 02:30 PM VA-TOBACCO QUIT 15 YRS OR MORE [facility] [place] [facility] Apr 04, 2021 10:28 AM VA-TOBACCO NEVER USED [facility] [place] [facility] May 03, 2020 02:00 PM VA-TOBACCO NEVER USED [facility] [place] [facility] Feb 25, 2019 08:14 AM VA-TOBACCO FORMER USER [place] [facility] [place] [facility] Feb 25, 2019 08:14 AM VA-TOBACCO QUIT 5 TO < 15 YRS [place] [facility] [place] [facility] Apr 04, 2018 10:41 AM QUIT TOBACCO USE 1-7 YEARS AGO [place] [facility] [place] [facility] Oct 28, 2017 10:18 AM QUIT TOBACCO USE 1-7 YEARS AGO [place] [facility] [place] [facility] Jan 22, 2017 01:08 PM QUIT TOBACCO USE 1-7 YEARS AGO [place] [facility] [place] [facility] Jul 18, 2016 01:34 PM QUIT TOBACCO USE 1-7 YEARS AGO [place] [facility] [place] [facility] January 10, 2016 10:32 AM QUIT TOBACCO USE 1-7 YEARS AGO [place] [facility] [place] [facility] Oct 13, 2015 11:05 AM QUIT TOBACCO USE 1-7 YEARS AGO [facility] [place] [facility] Oct 19, 2014 01:53 PM QUIT TOBACCO USE > 7 YEARS AGO [facility] [place] [facility] January 02, 2014 01:30 AM QUIT TOBACCO USE IN PAST YEAR [place] [facility] [place] [facility] Jun 18, 2013 09:00 AM CURRENT SMOKER 6 cigarettes qd [place] [facility] [place] [facility] Jun 18, 2013 09:00 AM V1-PT DECLINES [facility]BACCO [facility] [place] [facility] Jun 18, 2013 09:00 AM V1-PT NOT INTERESTED IN QUIT TOBACCO USE [place] [facility] [place] [facility] December 24, 2012 10:51 AM V1-PT DECLINES REF TO TOBACCO CESS PRGM [place] [facility] [place] [facility] December 24, 2012 10:51 AM V1-PT DECLINES TOBACCO CESSATION MEDS [place] [facility] [facility] December 24, 2012 10:51 AM V1-PT THINKING ABOUT QUIT TOBACCO USE [place] [facility] [place] [facility] Jul 15, 2012 10:19 AM QUIT TOBACCO USE IN PAST YEAR [place] [facility] [place] [facility] Jan 25, 2012 05:02 PM QUIT TOBACCO USE IN PAST YEAR [place] [facility] [place] [facility] Sep 28, 2011 10:09 AM CURRENT SMOKER 5 cigarettes a day [facility] Jun 15, 2011 02:23 PM V1-PT [facility] Jun 15, 2011 02:23 PM V1-PT READY TO QUIT TOBACCO USE [facility] Apr 13, 2011 10:31 AM V1-PT DECLINES REF TO TOBACCO CESS PRGM [facility] Apr 13, 2011 10:31 AM V1-PT RECEIVES TOBACCO CESS MEDS OUTSIDE [facility] Apr 13, 2011 10:31 AM V1-PT THINKING ABOUT QUIT TOBACCO USE [facility] Oct 16, 2010 08:52 AM QUIT TOBACCO USE IN PAST YEAR [facility] May 12, 2010 02:08 PM V1-PT DECLINES REF TO TOBACCO CESS PRGM [facility] May 12, 2010 02:08 PM V1-PT READY TO QUIT TOBACCO USE [facility] May 12, 2010 12:45 PM CURRENT SMOKER 3 cigarettes a day [facility] Encounter Notes: All associated encounter notes This section contains the clinical notes associated to the Encounter. Date/Time Encounter Note(s) Provider Source December 30, 2023 02:38 PM ADMINISTRATIVE NOT E: LOCAL TITLE: ADMINISTRATIVE NOTE STANDARD TITLE: ADMINISTRATIVE NOTE DATE OF NOTE: DECEMBER 30, 2023@14:38 ENTRY DATE: DECEMBER 30, 2023@14:38:39 AUTHOR: LO GIBBS EXP COSIGNER: URGENCY: STATUS: COMPLETED [place] cancelled today's [facility] appointment. Called and spoke to her briefly. Expressed understanding and appreciation for the notice. Confirmed she plans to attend next week. No evidence of imminent risk. /jeana/ Lo Gibbs, PhD Clinical Psychologist, [facility] Signed: 12/30/2023 14:39 LO GIBBS [facility]
--- OUTSIDE RECORDS SUMMARY | 2024-08-04 17:03 | XMS_ITS | Encounter Summary ---
Author Name [facility] Organization [facility] Address [address] [place] [address] Care Team Providers Care Kiln Labourer Name Role Phone CADEN FELIZ Primary Care [...] PLAN I Aug 19, 2019 PLAN I [id number] MEEK,GR ICEL PATIENT [employer] OPTIONS MEDICARE SUPPLEMEN MARCIA PLANM Y Aug 19, 2019 PLANMY [id number] MEEK,GR ICEL PATIENT [employer] OPTIONS MEDICARE SUPPLEMEN MARCIA AARP MEDIC ARE SUPPL Aug 19, 2019 PLAN MY [id number] [phone] MEEK,GR ICEL PATIENT AARP INS MEDICARE SUPPLEMEN MARCIA PLANM Y Aug 19, 2019 PLANMY [id number] [phone] MEEK,GR ICEL PATIENT AARP MED SUPP MEDICARE SUPPLEMEN MARCIA Jul 19, 2010 PLANMY [id number] [phone] MEEK,GR ICEL PATIENT MEDICARE (WNR) MEDICARE () PART B Aug 19, 2008 PART B [id number] MEEK,GR ICEL PATIENT MEDICARE (WNR) MEDICARE () PART B Aug 19, 2008 PART B [id number] MEEK,GR ICEL PATIENT MEDICARE (WNR) MEDICARE () PART B Aug 19, 2008 PART B [id number] MEEK,GR ICEL PATIENT MEDICARE (WNR) MEDICARE () PART B Aug 19, 2008 PART B [id number] MEEK,GR ICEL PATIENT MEDICARE (WNR) MEDICARE () PART B Aug 19, 2008 PART B [id number] MEEK,GR ICEL PATIENT MEDICARE (WNR) MEDICARE () PART B Aug 19, 2008 PART B [id number] MEEK,GR ICEL PATIENT MEDICARE (WNR) MEDICARE () PART B Aug 19, 2008 PART B [id number] MEEK,GR ICEL PATIENT MEDICARE (WNR) MEDICARE () PART A December 18, 2003 PART A [id number] MEEK,GR ICEL PATIENT MEDICARE (WNR) MEDICARE () PART A December 18, 2003 PART A [id number] MEEK,GR ICEL PATIENT MEDICARE (WNR) MEDICARE () PART A December 18, 2003 PART A [id number] MEEK,GR ICEL PATIENT MEDICARE (WNR) MEDICARE () PART A December 18, 2003 PART A [id number] MEEK,GR ICEL PATIENT MEDICARE (WNR) MEDICARE () PART A December 18, 2003 PART A [id number] MEEK,GR ICEL PATIENT MEDICARE (WNR) MEDICARE () PART A December 18, 2003 PART A [id number] SABINE MEEK PATIENT MEDICARE (WNR) MEDICARE (M) PART A December 18, 2003 PART A [id number] SABINE MEEK PATIENT Selected Encounter This section includes the information on record at ME for the Encounter. Date/Time Encounter Type Encounter Description Reason Provider Source Nov 28, 2023 10:00 AM PSYTX W PT 30 MINUTES [facility] - IND ICD-10-CM F43.12 Post-traumatic stress disorder, chronic MARY GIBBS IHDarshan Encounter Template Text not used by ME Assessments - Encounter Diagnoses This section includes the primary and secondary diagnoses documented for the Encounter. Date/Time Primary/Secondary Diagnosis Diagnosis Name Provider Source Nov 28, 2023 10:45 AM PRIMARY Post-traumatic stress disorder, chronic MARY GIBBS [facility] [place] [facility] Nov 28, 2023 10:45 AM SECONDARY Other recurrent depressive disorders MARY GIBBS [facility] [place] [facility] Plan of Treatment: Future Appointments (+ 6 months) and Future Tests (+/- 45 days) The Plan of Treatment section includes future care activities for the patient from [facility] This section includes future appointments and future orders which are active, pending or scheduled. Future Appointments This section includes appointments that were scheduled to occur 6 months from the date of the Encounter, up to a maximum of 20 appointments. The data comes from all ME treatment facilities. Appointment Date/Time Appointment Type Appointme nt Facility Name Dec 05, 2023 09:00 AM AMBULATORY - REHAB MEDICIN E [facility] [place] [facility] Dec 05, 2023 09:30 AM AMBULATORY - MEDICINE [facility] [place] [facility] Dec 09, 2023 09:30 AM AMBULATORY - MEDICINE [facility] [place] [facility] Dec 09, 2023 11:30 AM AMBULATORY - MEDICINE [facility] [place] [facility] Dec 12, 2023 11:30 AM AMBULATORY - NONE [facility] [place] [facility] Dec 16, 2023 01:00 PM AMBULATORY - PSYCHIATRY [facility] [place] [facility] December 23, 2023 01:00 PM [...] AMBULATORY - PSYCHIATRY [facility] [place] [facility] Feb 10, 2024 02:00 PM AMBULATORY - NONE [facility] [place] [facility] Lab Results: +/- 30 days of the encounter This section includes the Chemistry and Hematology Lab Results on record with ME for the patient. Radiology Reports and Pathology [...] Nov 15, 2023 09:56 AM Reporting Lab: [facility] [place] [address] [address] Performing Lab: [facility] [address] [facility] [address] VITAMIN B12 806 pg/mL 200-900 Nov 15, 2023 10:10 AM [facility] MICROALBUMIN CREATININE RATIO PANEL Specimen Type: URINE No comment entered. Ordering Provider: WALE FELIZ Report Released Date/Time: Nov 15, 2023 09:56 AM Reporting Lab: [facility] [address] [facility] [address] Performing Lab: [facility] [address] [facility] [address] MICROALBUMIN/C REATININE RATIO canc mg/g 0-29.9 MICROALBUMIN,Q UANTITATIVE < 0.5 mg/dL RR UNAVAIL CREATININE URINE 34.74 mg/dL Nov 15, 2023 10:10 AM [facility] HEMOGLOBIN A1C PANEL Specimen Type: BLOOD No comment entered. Ordering Provider: WALE FELIZ Report Released Date/Time: Nov 15, 2023 09:56 AM Reporting Lab: [facility] [address] [facility] [address] Performing Lab: [address] [address] HEMOGLOBIN A1C 6.1 H 4.0-5.6 Nov 15, 2023 10:10 AM [facility] VITAMIN D (25-OH) Specimen Type: SERUM No comment entered. Ordering Provider: WALE FELIZ Report Released Date/Time: Nov 15, 2023 09:56 AM Reporting Lab: [facility] [address] [facility] [address] Performing Lab: [facility] [address] VITAMIN D (25-OH) 54 ng/mL H 20-50 Nov 15, 2023 10:10 AM [facility] BASIC METABOLIC PANEL (non-fasting) Specimen Type: SERUM No comment entered. Ordering Provider: WALE FELIZ Report Released Date/Time: Nov 15, 2023 09:56 AM Reporting Lab: [facility] [place] [facility] [address] [facility] [address] Performing Lab: [facility] [place] [facility] [address] [facility] [address] UREA NITROGEN 6 mg/dL L 7-25 GLUCOSE [...] and tobacco- related health factors from the ME facility where the Encounter took place. Current Smoking Status This section includes the most current smoking, or tobacco-related health factor, from the ME facility where the Encounter took place. Date/Time Current Smoking Status Comment [facility] Feb 08, 2023 10:00 AM VA-TOBACCO FORMER USER [facility] Tobacco Use History This section includes a history of the smoking, or tobacco-related health factors, that were collected on or before the date of the Encounter. The data comes from the ME facility where the Encounter took place. Date/Time Smoking Status/Tobac co Use Comment Facility Feb 08, 2023 10:00 AM VA-TOBACCO QUIT 15 YRS OR MORE [facility] [place] [facility] Mar 06, 2022 02:30 PM VA-TOBACCO FORMER USER [facility] [place] [facility] Mar 06, 2022 02:30 PM VA-TOBACCO QUIT 15 YRS OR MORE [facility] [place] [facility] Apr 04, 2021 10:28 AM VA-TOBACCO NEVER USED [facility] [place] [facility] May 03, 2020 02:00 PM VA-TOBACCO NEVER USED [facility] [place] [facility] Feb 25, 2019 08:14 AM VA-TOBACCO FORMER USER [facility] [place] [facility] Feb 25, 2019 08:14 AM VA-TOBACCO QUIT 5 TO < 15 YRS [facility] [place] [facility] Apr 04, 2018 10:41 AM QUIT TOBACCO USE 1-7 YEARS AGO [facility] [place] [facility] Oct 28, 2017 10:18 AM QUIT TOBACCO USE 1-7 YEARS AGO [facility] [place] [facility] Jan 22, 2017 01:08 PM QUIT TOBACCO USE 1-7 YEARS AGO [facility] [place] [facility] Jul 18, 2016 01:34 PM QUIT TOBACCO USE 1-7 YEARS AGO [facility] [place] [facility] January 10, 2016 10:32 AM QUIT TOBACCO USE 1-7 YEARS AGO [facility] [place] [facility] Oct 13, 2015 11:05 AM QUIT TOBACCO USE 1-7 YEARS AGO [facility] [place] [facility] Oct 19, 2014 01:53 PM QUIT TOBACCO USE > 7 YEARS AGO [facility] [place] [facility] January 02, 2014 01:30 AM QUIT TOBACCO USE IN PAST YEAR [facility] [place] [facility] Jun 18, 2013 09:00 AM CURRENT SMOKER 6 cigarettes qd [facility] [place] [facility] Jun 18, 2013 09:00 AM V1-PT DECLINES TOBACCO CESSATION MEDS [facility] [place] [facility] Jun 18, 2013 09:00 AM V1-PT NOT INTERESTED IN QUIT TOBACCO USE [facility] [place] [facility] December 24, 2012 10:51 AM V1-PT DECLINES REF TO TOBACCO CESS PRGM [facility] [place] [facility] December 24, 2012 10:51 AM V1-PT DECLINES TOBACCO CESSATION MEDS [facility] [place] [facility] December 24, 2012 10:51 AM V1-PT THINKING ABOUT QUIT TOBACCO USE [facility] [place] [facility] Jul 15, 2012 10:19 AM QUIT TOBACCO USE IN PAST YEAR [facility] [place] [facility] Jan 25, 2012 05:02 PM QUIT TOBACCO USE IN PAST YEAR [facility] [place] [facility] Sep 28, 2011 10:09 AM CURRENT SMOKER 5 cigarettes a day [facility] [place] [facility] Jun 15, 2011 02:23 PM V1-PT DECLINES REF TO TOBACCO CESS PRGM [facility] [place] [facility] Jun 15, 2011 02:23 PM V1-PT READY TO QUIT TOBACCO USE [facility] Apr 13, 2011 10:31 AM V1-PT [facility] Apr 13, 2011 10:31 AM V1-PT RECEIVES TOBACCO CESS MEDS OUTSIDE [facility] Apr 13, 2011 10:31 AM V1-PT THINKING ABOUT QUIT TOBACCO USE [facility] Oct 16, 2010 08:52 AM QUIT TOBACCO USE IN PAST YEAR [facility] May 12, 2010 02:08 PM V1-PT DECLINES REF TO TOBACCO CESS PRGM [facility] May 12, 2010 02:08 PM V1-PT READY TO QUIT TOBACCO USE [facility] May 12, 2010 12:45 PM CURRENT SMOKER 3 cigarettes a day [facility] Radiology Reports: +/- 30 days of [...] ELBOW 3 OR MORE VIEWS(LEFT): PEBBLES MEEK [id number] -[id number] F Exm Date: NOV 15, 2023@10:22 Req Phys: CADEN FELIZ Loc: CWM/NO/PACT 6 WH (Req'g Loc) Img Loc: [facility] [address] Service: Unknown (Case [id number] COMPLETE) ELBOW 3 OR MORE VIEWS(LEFT) (RAD Detailed) CPT:65402 Reason for Study: pain and swelling left elbow Clinical History: 73yo woman with h/o traumatic injury in 20s, Report Status: Verified Date Reported: NOV 15, 2023 Date Verified: NOV 15, 2023 Veneer Stock Grader E-Sig:/ES/EDWARD A RODRIGUEZ JR Report: Study: AP, lateral, and [...] Primary Interpreting Staff: NEMO RODRIGUEZ JR, Radiologist (Chhaya) /NEMO WEISS JR [facility] Encounter Notes: All associated encounter notes This section contains the clinical notes associated to the Encounter. Date/Time Encounter Note(s) Provider Source Dec 03, 2023 03:55 PM MENTAL HEALTH DIAG NOSTIC STUDY NOTE: LOCAL TITLE: MENTAL HEALTH DIAGNOSTIC STUDY STANDARD TITLE: MENTAL HEALTH DIAGNOSTIC STUDY NOTE DATE OF NOTE: DEC 03, 2023@15:55:19 ENTRY DATE: DEC 03, 2023@15:55:19 AUTHOR: DEBBIE GIBBS COSIGNER: URGENCY: STATUS: COMPLETED Assessments were sent to the [place] via text/email. These assessments were completed by PEBBLES MEEK on their own device on 12/03/2023 12:21:12 PM. PATIENT HEALTH QUESTIONNAIRE-9 (PHQ-9) The patient reported some symptoms of depression; symptoms are not consistent with a major depressive episode. Patient reported being bothered by the following over the last 2 weeks: 1. Little interest or pleasure: Several Days 2. Feeling down, depressed or hopeless: Several Days 3. Trouble sleeping: More than half the days 4. Tired, low energy: Several Days 5. Poor appetite, over-eating: Not at all 6. Feelings of failure, guilt: Not at all 7. Trouble concentrating: Not at all 8. Motor retardation, agitation: Not at all 9. Thoughts better off /hurting self: Not at all PHQ-9 total score = 5 1-4 = minimal symptoms 5-9= mild symptoms 10-14= moderate symptoms 15-19= moderately severe symptoms 20-27= severe depressive symptoms The patient stated that the depressive symptoms made it somewhat difficult to work, take care of things at home, or get along with others. BRIEF ADDICTION MONITOR-REVISED (BAM-R) Patient reported the following over the last 30 days: 1. Physical health: Fair 2. Nights trouble falling asleep or staying asleep: 0 3. Days depressed, anxious, angry or very upset: 7 4. Days drank ANY alcohol: 0 5. Days drank at least 5/4 drinks (male/female): N/A 6. Days used any illegal/street drugs or abused any prescription medications: 0 7. Days used: a. Marijuana (cannabis, pot, weed): N/A b. Sedatives/Tranquilizers: N/A c. Cocaine/Crack: N/A d. Other Stimulants: N/A e. Opiates: N/A f. Inhalants: N/A g. Other drugs: N/A 8. Bothered by cravings or urges to drink alcohol or use drugs: Not at all 9. Confidence in ability to be abstinent in the next 30 days: Not at all 10. Days attended self-help meetings (AA or NA): 0 11. Days in any situations that might have increased risk for using alcohol/drugs: 0 12. Druze or spirituality supports recovery: Considerably 13. Days with much of the time spent at work, school, or volunteerin 14. Enough income (from legal sources) to pay for necessities: Yes 15. Bothered by arguments or problems getting along with family/friends: Not at all 16. Days in contact with family/friends supportive of recovery: 7 17. Satisfied with progress toward achieving recovery goals: Moderately BAM Subscales: USE = 0 Scores range from 0 to 90 RISK = 29 Scores range from 0 to 180 PROTECTION = 59 Scores range from 0 to 180 DIFFICULTIES IN EMOTION REGULATION SCALE-16 (DERS-16) The patient reported that the statements below applied to them as follows: 1. Difficulty making sense out of their feelings: Almost never 0-10% 2. Confused about how they feel: Almost never 0-10% 3. When upset, difficulty getting work done: Almost never 0-10% 4. When upset, become out of control: Almost never 0-10% 5. When upset, believe that they will remain that way for a long time: Almost never 0-10% 6. When upset, believe that they'll end up feeling very depressed: Almost never 0-10% 7. When upset, difficulty focusing on other things: Almost never 0-10% 8. When upset, feel out of control: Almost never 0-10% 9. When upset, feel ashamed with self for feeling that way: Almost never 0-10% 10. When upset, feel like they are weak: Almost never 0-10% 11. When upset, difficulty controlling behaviors: Almost never 0-10% 12. When upset, believe that there is nothing they can do to make self feel better: Almost never 0-10% 13. When upset, become irritated with self for feeling that way: Sometimes 11-35% 14. When upset, start to feel very bad about self: Almost never 0-10% 15. When upset, difficulty thinking about anything else: Almost never 0-10% 16. When upset, emotions feel overwhelming: Sometimes 11-35% DERS-16 Total Score: 18 Clarity Score: 2 Goals Score: 3 Impulse Score: 3 Strategies Score: 6 Nonacceptance Score: 4 Higher scores reflect greater levels of difficulty in emotion regulation. THE ACCEPTANCE AND ACTION QUESTIONNAIRE-II (AAQ-II) The patient rated how true each statement is for them as follows: 1. It's OK if I remember something unpleasant: Seldom true 2. My painful experiences and memories make it difficult for me to live a life that I would value: Almost always true 3. I am afraid of my feelings: Seldom true 4. I worry about not being able to control my worries and feelings: Sometimes 5. My painful memories prevent me from having a fulfilling life: Frequently true 6. I am in control of my life: Almost always true 7. Emotions cause problems in my life: Seldom true 8. It seems like most people are handling their lives better than I am: Never true 9. Worries get in the way of my success: Seldom true 10. My thoughts and feelings do not get in the way of how I want to live my life: Very seldom true Total Score: 42 Scores range from 10 to 70 with higher scores indicating greater psychological flexibility. /jeana/ Debbie Gibbs, PhD Clinical Psychologist, Mental Health Clinic Signed: 12/03/2023 15:56 DEBBIE GIBBS [facility] [place] [facility] Dec 03, 2023 09:21 AM ADMINISTRATIVE NOT E: LOCAL TITLE: ADMINISTRATIVE NOTE STANDARD TITLE: ADMINISTRATIVE NOTE DATE OF NOTE: DEC 03, 2023@09:21 ENTRY DATE: DEC 03, 2023@09:21:31 AUTHOR: DEBBIE GIBBS EXP COSIGNER: URGENCY: STATUS: COMPLETED Called and spoke to . Offered her the opportunity to begin the Mindful Compassion group as of 12/09/23. indicated she cannot begin that day due to a scheduling conflict, yet expressed desire to begin on Saturday, December 16, 2023 at 1pm F2F in the Creative Thinking Room. Reviewed group information and [place] committed to complete [facility] touch measures sent via text today. No evidence of imminent risk. expressed appreciation for the call and confirmed she has sports writer's contact information. /jeana/ Debbie Gibbs, PhD Clinical Psychologist, Mental Health Clinic Signed: 12/03/2023 09:23 Receipt Acknowledged By: 12/03/2023 09:56 /es/ ALICIA DANIELSON M.S.// GOLD LEAF LAYER// DEBBIE GIBBS [facility] [place] [facility] Nov 28, 2023 10:45 AM PSYCHOLOGY CONSULT : LOCAL TITLE: CONSULT REPORT/MENTAL HEALTH/PSYCHOLOGY STANDARD TITLE: PSYCHOLOGY CONSULT DATE OF NOTE: NOV 28, 2023@10:45 ENTRY DATE: NOV 28, 2023@10:45:13 AUTHOR: DEBBIE GIBBS EXP COSIGNER: URGENCY: STATUS: COMPLETED Mindful Compassion Group Treatment Planning Appointment Procedure: The [place] was seen for a ufbm-ax-ohrt, 40-minute individual psychotherapy session in the Outpatient Mental Health Clinic Problem: Difficulty being present in the moment and fostering compassion Objective: Discuss Veterans potential participation the Mindful Compassion Group Progress: Reviewed limits of confidentiality, 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 spoke about her goal of being present in the moment and fostering compassion, particularly for himself. She spoke about her difficulty with symptoms of PTSD and depression as well as her appreciation of past participation in a mindfulness group and therapy work with Dr. Sterling. Discussed [place]'s potential interest in the Mindful Compassion group. Provided information about the goals, structure of the group, and group guidelines. [place] indicated interest in beginning the Mindful Compassion hybrid F2F/VVC group. [place] expressed willingness to follow the guidelines in the group commitment document and was provided with a copy. expressed willingness to speak with group controller should concerns arise and understanding that group participation is for 24 weeks. [place] agreed to engage in measurement-based care by completing [facility] touch measures at the beginning, midpoint, and end of the group with a preference to received questionnaires by text message. [place] expressed understanding that there will be a wait until a next opening in the group. She expressed a preference to participate in person and stated a morning group time would be more ideal if possible. [place] was provided with [facility] information, including a pamphlet, and was receptive to encouragement to engage in those activities until (or in addition to) participation can begin for the Mindful Compassion group. Assessment: arrived on time for session and was dressed appropriately with appropriate hygiene. [place] maintained appropriate eye contact and was alert. spoke clearly and coherently. Veterans thoughts were linear and related. Veterans affect was congruent to content and appropriate in range. There was no evidence of AH/VH or delusions. [place] denied suicidal and homicidal ideation. was reminded of emergency resources through this [facility] and the Veterans Crisis Line number. Diagnostic Impressions According to the DSM-V and Per Chart Review: PTSD, chronic Plan: [place] will be contacted with a date to begin participation in the Mindful Compassion Group F2F in advance of an opening. expressed understanding of this. Suicide Screen: C-SSRS Screening [place]-Suicide Severity Rating Scale (C-SSRS Screener) 1. Over [...] due to responses to other questions. /jeana/ Debbie Gibbs, PhD Clinical Psychologist, Mental Health Clinic Signed: 11/28/2023 10:51 [facility]
--- OUTSIDE RECORDS SUMMARY | 2024-08-04 17:04 | XMS_ITS | Encounter Summary ---
Author Name [facility] [place] [facility] [place] Address [address] [place] [address] Care Team Providers Care Bi Application Developer Name Role Phone CAEDN FELIZ Primary Care Provider Unavailabl e Insurance [...] PLAN I Aug 19, 2019 PLAN I [id number] [phone] MEEK,GR ICEL PATIENT [employer] OPTIONS MEDICARE SUPPLEMEN MARCIA PLANM Y Aug 19, 2019 PLANMY [id number] MEEK,GR ICEL PATIENT [employer] OPTIONS MEDICARE SUPPLEMEN MARCIA AARP MEDIC ARE SUPPL Aug 19, 2019 PLAN MY [id number] MEEK,GR ICEL PATIENT AARP INS MEDICARE SUPPLEMEN MARCIA PLANM Y Aug 19, 2019 PLANMY [id number] MEEK,GR ICEL PATIENT AARP MED SUPP MEDICARE SUPPLEMEN MARCIA Jul 19, 2010 PLANMY [id number] [phone] MEEK,GR ICEL PATIENT MEDICARE (WNR) MEDICARE () PART B Aug 19, 2008 PART B [id number] MEEK,GR ICEL PATIENT MEDICARE (WNR) MEDICARE () PART B Aug 19, 2008 PART B [id number] MEEK,GR ICEL PATIENT MEDICARE (WNR) MEDICARE () PART B Aug 19, 2008 PART B [id number] [phone] MEEK,GR ICEL PATIENT MEDICARE (WNR) MEDICARE () PART B Aug 19, 2008 PART B [id number] [phone] MEEK,GR ICEL PATIENT MEDICARE (WNR) MEDICARE () PART B Aug 19, 2008 PART B [id number] [phone] MEEK,GR ICEL PATIENT MEDICARE (WNR) MEDICARE () PART B Aug 19, 2008 PART B [id number] [phone] MEEK,GR ICEL PATIENT MEDICARE (WNR) MEDICARE () PART B Aug 19, 2008 PART B [id number] MEEK,GR ICEL PATIENT MEDICARE (WNR) MEDICARE () PART A December 18, 2003 PART A [id number] MEEK,GR ICEL PATIENT MEDICARE (WNR) MEDICARE () PART A December 18, 2003 PART A [id number] MEEK,GR ICEL PATIENT MEDICARE (WNR) MEDICARE () PART A December 18, 2003 PART A [id number] [phone] MEEK,GR ICEL PATIENT MEDICARE (WNR) MEDICARE () PART A December 18, 2003 PART A [id number] MEEK,GR ICEL PATIENT MEDICARE (WNR) MEDICARE () PART A December 18, 2003 PART A [id number] MEEK,GR ICEL PATIENT MEDICARE (WNR) MEDICARE () PART A December 18, 2003 PART A [id number] [phone] SABINE MEEK PATIENT MEDICARE (WNR) MEDICARE (M) PART A December 18, 2003 PART A [id number] SABINE MEEK PATIENT Selected Encounter This section includes the information on record at [place] for the Encounter. Date/Time Encounter Type Encounter Description Reason Provider Source January 06, 2024 01:00 PM [facility] ICD-10-CM F43.12 Post-traumati c stress disorder, chronic MANUELEMARY E IHE Encounter Template Text not used by DC Assessments - Encounter Diagnoses This section includes the primary and secondary diagnoses documented for the Encounter. Date/Time Primary/Secondary Diagnosis Diagnosis Name Provider Source January 06, 2024 04:12 PM PRIMARY Post-traumatic stress disorder, chronic MARY GIBBS E [facility] Plan of Treatment: Future Appointments (+ 6 months) and Future Tests (+/- 45 days) The Plan of Treatment section includes future care activities for the [facility] This section includes future appointments and future orders which are active, pending or scheduled. Future Appointments This section includes appointments that were scheduled to occur 6 months from the date of the Encounter, up to a maximum of 20 appointments. The data comes from all [place] treatment facilities. Appointment Date/Time Appointment Type Appointme nt Facility Name January 07, 2024 08:00 AM AMBULATORY - MEDICINE [place] [facility] January 09, 2024 09:00 AM AMBULATORY - PSYCHIATRY [facility] January 14, 2024 09:30 AM AMBULATORY - MEDICINE [place] [facility] January 16, 2024 10:30 AM AMBULATORY - NONE [facility] Jan 20, 2024 01:00 PM AMBULATORY - PSYCHIATRY [facility] Jan 22, 2024 03:00 PM AMBULATORY - NONE [facility] Jan 27, 2024 01:00 PM AMBULATORY - PSYCHIATRY [facility] Feb 03, 2024 01:00 PM AMBULATORY - PSYCHIATRY [facility] Feb 10, 2024 01:00 PM AMBULATORY - PS[facility]IATRY [facility] Feb 10, 2024 02:00 PM AMBULATORY - NONE [facility] Feb 17, 2024 12:30 PM AMBULATORY - NONE [facility] Feb 17, 2024 01:00 PM AMBULATORY - PSYCHIATRY [facility] Feb 21, 2024 08:30 AM AMBULATORY - MEDICINE [facility] Feb 24, 2024 01:00 PM AMBULATORY - PSYCHIATRY [facility] Feb 28, 2024 11:30 AM AMBULATORY - MEDICINE [facility] Mar 02, 2024 01:00 PM AMBULATORY - PSYCHIATRY [facility] Mar 06, 2024 09:30 AM AMBULATORY - MEDICINE [facility] Mar 09, 2024 01:00 PM AMBULATORY - PSYCHIATRY [facility] Mar 11, 2024 03:15 PM AMBULATORY - MEDICINE [facility] Mar 18, 2024 08:30 AM AMBULATORY - MEDICINE DC [facility] Social History: Smoking Status (Most current) and Tobacco Use (All prior to encounter date) This section includes the most current, and the historical, smoking and tobacco- related health factors from the [place] facility where the Encounter took place. Current Smoking Status This section includes the most current smoking, or tobacco-related health factor, from the [place] facility where the Encounter took place. Date/Time Current Smoking Status Comment [facility] it Feb 08, 2023 10:00 AM VA-TOBACCO FORMER USER [place] [facility] Tobacco Use History This section includes a history of the smoking, or tobacco-related health factors, that were collected on or before the date of the Encounter. The data comes from the [place] facility where the Encounter took place. Date/Time Smoking Status/Tobac co Use Comment [facility] Feb 08, 2023 10:00 AM VA-TOBACCO QUIT 15 YRS OR MORE [facility] Mar 06, 2022 02:30 PM VA-TOBACCO FORMER USER [facility] Mar 06, 2022 02:30 PM VA-TOBACCO QUIT 15 YRS OR MORE [facility] Apr 04, 2021 10:28 AM VA-TOBACCO NEVER USED [facility] May 03, 2020 02:00 PM VA-TOBACCO NEVER USED [facility] Feb 25, 2019 08:14 AM VA-TOBACCO FORMER USER [facility] Feb 25, 2019 08:14 AM VA-TOBACCO QUIT 5 TO < 15 YRS [facility] Apr 04, 2018 10:41 AM QUIT TOBACCO USE 1-7 YEARS AGO [facility] Oct 28, 2017 10:18 AM QUIT TOBACCO USE 1-7 YEARS AGO [facility] Jan 22, 2017 01:08 PM QUIT TOBACCO USE 1-7 YEARS AGO [facility] Jul 18, 2016 01:34 PM QUIT TOBACCO USE 1-7 YEARS AGO [facility] January 10, 2016 10:32 AM QUIT TOBACCO USE 1-7 YEARS AGO [facility] Oct 13, 2015 11:05 AM QUIT TOBACCO USE 1-7 YEARS AGO [facility] Oct 19, 2014 01:53 PM QUIT TOBACCO USE > 7 YEARS AGO [facility] January 02, 2014 01:30 AM QUIT TOBACCO USE IN PAST YEAR [facility] Jun 18, 2013 09:00 AM CURRENT SMOKER 6 cigarettes qd [facility] Jun 18, 2013 09:00 AM V1-PT DECLINES TOBACCO CESSATION MEDS [facility] Jun 18, 2013 09:00 AM V1-PT NOT INTERESTED IN QUIT TOBACCO USE [facility] December 24, 2012 10:51 AM V1-PT DECLINES REF TO TOBACCO CESS PRGM [facility] December 24, 2012 10:51 AM V1-PT DECLINES TOBACCO CESSATION MEDS [facility] December 24, 2012 10:51 AM V1-PT THINKING ABOUT QUIT TOBACCO USE [facility] Jul 15, 2012 10:19 AM QUIT TOBACCO USE IN PAST YEAR [facility] Jan 25, 2012 05:02 PM QUIT TOBACCO USE IN PAST YEAR [facility] Sep 28, 2011 10:09 AM CURRENT SMOKER 5 cigarettes a day [facility] Jun 15, 2011 02:23 PM V1-PT DECLINES REF TO TOBACCO CESS [facility] Jun 15, 2011 02:23 PM V1-PT READY TO QUIT TOBACCO USE [facility] Apr 13, 2011 10:31 AM V1-PT DECLINES REF TO TOBACCO CESS PRGM [facility] Apr 13, 2011 10:31 AM V1-PT RECEIVES TOBACCO CESS MEDS OUTSIDE [facility] Apr 13, 2011 10:31 AM V1-PT THINKING ABOUT QUIT TOBACCO USE [facility] Oct 16, 2010 08:52 AM QUIT TOBACCO USE IN PAST YEAR [facility] May 12, 2010 02:08 PM V1-PT DECLINES REF TO TOBACCO CESS [facility] May 12, 2010 02:08 PM V1-PT READY TO QUIT TOBACCO USE [facility] May 12, 2010 12:45 PM CURRENT SMOKER 3 cigarettes a day [facility] Encounter Notes: All associated encounter notes This section contains the clinical notes associated to the Encounter. Date/Time Encounter Note(s) Provider Source January 06, 2024 04:10 PM PSYCHIATRY GROUP COUNSELING NOTE: LOCAL TITLE: PSYCHOLOGY GROUP NOTE STANDARD TITLE: PSYCHIATRY GROUP COUNSELING NOTE DATE OF NOTE: JANUARY 06, 2024@16:10 ENTRY DATE: JANUARY 06, 2024@16:10:37 AUTHOR: LO GIBBS EXP COSIGNER: URGENCY: STATUS: COMPLETED [facility] [place] Mindful Compassion Group Therapy Note (F2F) ~~~ Facilitators: Alicia Danielson MS, and Lo Gibbs, PhD PROCEDURE: 60-minute interactive hybrid VVC/F2F group therapy session Problem: Difficulty being present in the moment and fostering compassion Objective: Explored and practice mindful compassion Number of Veterans Present in Group: 9 GROUP CONTENT: Group members engaged in a mindful listening practice involving mindful self-compassion and a poem by Mallory. Group members checked in by sharing a moment of kindness expereinced in the past week. Group members participated in a metta-loving kindness practice and spoke about this experience. They committed to engage in mindful awareness and to practice metta-loving kindness between now and next group. PROGRESS: [place] arrived on time and was an active and appropriate participant. [place] participated in the mindfulness practices and group discussions. Mental Status was not formally assessed due to the nature of the encounter. [place] maintained appropriate eye contact and was alert. spoke clearly and coherently. 's thoughts were linear and related. [place]'s affect was congruent to content and appropriate in range. No clinical signs of intoxication, withdrawal, psychosis, or cognitive impairment were observed. No evidence of suicidal or homicidal ideation. There was no evidence of AH/VH or delusions. was future oriented. DSM-V DIAGNOSTIC IMPRESSIONS(per chart): PTSD, chronic PLAN: will continue to participate in the Mindful Compassion Group on Mondays at 1pm. /jeana/ Lo Gibbs, PhD Clinical Psychologist, [facility] Signed: 01/06/2024 16:12 Receipt Acknowledged By: 01/06/2024 16:15 /jeana/ ALICIA DANIELSON M.S.// TALENT ACQUISITION LEAD// LO GIBBS [facility]
--- OUTSIDE RECORDS SUMMARY | 2024-08-04 17:04 | XMS_ITS | Encounter Summary ---
Author Name [facility] [place] [facility] [place] Address [address] [place] [address] Care Team Providers Care [employer] Driver Name Role Phone CADEN FELIZ Primary Care [...] PLAN I Aug 19, 2019 PLAN I [id number] MEEK,GR ICEL PATIENT [employer] OPTIONS MEDICARE SUPPLEMEN MARCIA PLANM Y Aug 19, 2019 PLANMY [id number] MEEK,GR ICEL PATIENT [employer] OPTIONS MEDICARE SUPPLEMEN MARCIA AARP MEDIC ARE SUPPL Aug 19, 2019 PLAN MY [id number] MEEK,GR ICEL PATIENT AARP INS MEDICARE SUPPLEMEN MARCIA PLANM Y Aug 19, 2019 PLANMY [id number] MEEK,GR ICEL PATIENT AARP MED SUPP MEDICARE SUPPLEMEN MARCIA Jul 19, 2010 PLANMY [id number] MEEK,GR ICEL PATIENT MEDICARE (WNR) MEDICARE () PART B Aug 19, 2008 PART B [id number] MEEK,GR ICEL PATIENT MEDICARE (WNR) MEDICARE () PART B Aug 19, 2008 PART B [id number] [phone] MEEK,GR ICEL PATIENT MEDICARE (WNR) MEDICARE () PART B Aug 19, 2008 PART B [id number] [phone] MEEK,GR ICEL PATIENT MEDICARE (WNR) MEDICARE () PART B Aug 19, 2008 PART B [id number] [phone] MEEK,GR ICEL PATIENT MEDICARE (WNR) MEDICARE () PART B Aug 19, 2008 PART B [id number] [phone] MEEK,GR ICEL PATIENT MEDICARE (WNR) MEDICARE () PART B Aug 19, 2008 PART B [id number] [phone] MEEK,GR ICEL PATIENT MEDICARE (WNR) MEDICARE () PART B Aug 19, 2008 PART B [id number] [phone] MEEK,GR ICEL PATIENT MEDICARE (WNR) MEDICARE () PART A December 18, 2003 PART A [id number] MEEK,GR ICEL PATIENT MEDICARE (WNR) MEDICARE () PART A December 18, 2003 PART A [id number] MEEK,GR ICEL PATIENT MEDICARE (WNR) MEDICARE () PART A December 18, 2003 PART A [id number] MEEK,GR ICEL PATIENT MEDICARE (WNR) MEDICARE () PART A December 18, 2003 PART A [id number] MEEK,GR ICEL PATIENT MEDICARE (WNR) MEDICARE () PART A December 18, 2003 PART A [id number] MEEK,GR ICEL PATIENT MEDICARE (WNR) MEDICARE () PART A December 18, 2003 PART A [id number] SABINE MEEK PATIENT MEDICARE (WNR) MEDICARE (M) PART A December 18, 2003 PART A [id number] SABINE MEEK PATIENT Selected Encounter This section includes the information on record at [place] for the Encounter. Date/Time Encounter Type Encounter Description Reason Provider Source January 06, 2024 11:00 AM PSYTX W PT 30 [facility]UTES [facility] - IND ICD-10-CM F33.8 Other recurrent depressive disorders BELKYS MADISON [facility] Encounter Template Text not used by [place] Assessments - Encounter Diagnoses This section includes the primary and secondary diagnoses documented for the Encounter. Date/Time Primary/Secondary Diagnosis Diagnosis Name Provider Source January 06, 2024 11:09 AM PRIMARY Other recurrent depressive disorders BELKYS MADISON [place] [facility] [place] [facility] January 06, 2024 11:09 AM SECONDARY Insomnia due to other mental disorder BELKYS MADISON [facility] [place] [facility] January 06, 2024 11:09 AM SECONDARY Mental disorder, not otherwise specified BELKYS MADISON [facility] [place] [facility] January 06, 2024 11:09 AM SECONDARY Post-traumatic stress disorder, chronic BELKYS MADISON [facility] Plan of Treatment: Future Appointments (+ 6 [...] - MEDICINE [place] [facility] [place] [facility] January 09, 2024 09:00 AM AMBULATORY - PSYCHIATRY [place] [facility] [place] [facility] January 14, 2024 09:30 AM AMBULATORY - MEDICINE [place] [facility] [facility] January 16, 2024 10:30 AM AMBULATORY - NONE [facility] [place] [facility] Jan 20, 2024 01:00 PM AMBULATORY - PSYCHIATRY [facility] [place] [facility] Jan 22, 2024 03:00 PM AMBULATORY - NONE [facility] [place] [facility] Jan 27, 2024 01:00 PM AMBULATORY - PSYCHIATRY [facility] [place] [facility] Feb 03, 2024 01:00 PM AMBULATORY - PSYCHIATRY [facility] [place] [facility] Feb 10, 2024 01:00 PM AMBULATORY - PSYCHIATRY [facility] [place] [facility] Feb 10, 2024 02:00 PM AMBULATORY - NONE [facility] [place] [facility] Feb 17, 2024 12:30 PM AMBULATORY - NONE [facility] [place] [facility] Feb 17, 2024 01:00 PM AMBULATORY - PSYCHIATRY [facility] [place] [facility] Feb 21, 2024 08:30 AM AMBULATORY - MEDICINE [facility] [place] [facility] Feb 24, 2024 01:00 PM AMBULATORY - PSYCHIATRY [facility] [place] [facility] Feb 28, 2024 11:30 AM AMBULATORY - MEDICINE [facility] [place] [facility] Mar 02, 2024 01:00 PM AMBULATORY - PSYCHIATRY [facility] [place] [facility] Mar 06, 2024 09:30 AM AMBULATORY - MEDICINE [facility] [place] [facility] Mar 09, 2024 01:00 PM AMBULATORY - PSYCHIATRY [facility] [place] [facility] Mar 11, 2024 03:15 PM AMBULATORY - MEDICINE [facility] [place] [facility] Mar 18, 2024 08:30 AM AMBULATORY - MEDICINE [facility] [place] [facility] Social History: Smoking Status (Most [...] VA-TOBACCO FORMER USER [facility] [place] [facility] Tobacco Use History This section includes a history of the smoking, or tobacco-related health factors, that were collected on or before the date of the Encounter. The data comes from the [place] facility where the Encounter took place. Date/Time Smoking Status/Tobac co Use Comment Facility Feb 08, 2023 10:00 AM VA-TOBACCO QUIT 15 YRS OR MORE [place] [facility] [place] [facility] Mar 06, 2022 02:30 PM VA-TOBACCO FORMER USER [facility] [place] [facility] Mar 06, 2022 02:30 PM VA-TOBACCO QUIT 15 YRS OR MORE [place] [facility] [place] [facility] Apr 04, 2021 10:28 AM VA-TOBACCO NEVER USED [place] [facility] [facility] May 03, 2020 02:00 PM VA-TOBACCO NEVER USED [place] [facility] [place] [facility] Feb 25, 2019 08:14 AM VA-TOBACCO FORMER USER [place] [facility] [facility] Feb 25, 2019 08:14 AM VA-TOBACCO QUIT 5 TO < 15 YRS [place] [facility] [place] [facility] Apr 04, 2018 10:41 AM QUIT TOBACCO USE 1-7 YEARS AGO [facility] [place] [facility] Oct 28, 2017 10:18 AM QUIT TOBACCO USE 1-7 YEARS AGO [facility] [place] [facility] Jan 22, 2017 01:08 PM QUIT TOBACCO USE 1-7 YEARS AGO [facility] [place] [facility] Jul 18, 2016 01:34 PM QUIT TOBACCO USE 1-7 YEARS AGO [facility] [place] [facility] January 10, 2016 10:32 AM QUIT TOBACCO USE 1-7 YEARS AGO [facility] [place] [facility] Oct 13, 2015 11:05 AM QUIT TOBACCO USE 1-7 YEARS AGO [facility] [place] [facility] Oct 19, 2014 01:53 PM QUIT TOBACCO USE > 7 YEARS AGO [facility] [place] [facility] January 02, 2014 01:30 AM QUIT TOBACCO USE IN PAST YEAR [facility] [place] [facility] Jun 18, 2013 09:00 AM CURRENT SMOKER 6 cigarettes qd [facility] [place] [facility] Jun 18, 2013 09:00 AM V1-PT DECLINES TOBACCO CESSATION MEDS [facility] [place] [facility] Jun 18, 2013 09:00 AM V1-PT NOT INTERESTED IN QUIT TOBACCO USE [place] [facility] [place] [facility] December 24, 2012 10:51 AM V1-PT DECLINES REF TO TOBACCO CESS PRGM [facility] [place] [facility] December 24, 2012 10:51 AM V1-PT DECLINES TOBACCO CESSATION MEDS [facility] [place] [facility] December 24, 2012 10:51 AM V1-PT THINKING ABOUT QUIT [facility]AC[facility] [place] [facility] Jul 15, 2012 10:19 AM QUIT TOBACCO USE IN PAST [facility]AR [facility] Jan 25, 2012 05:02 PM QUIT TOBACCO USE IN PAST YEAR [facility] Sep 28, 2011 10:09 AM CURRENT SMOKER 5 cigarettes a day [facility] [place] [facility] Jun 15, 2011 02:23 PM V1-PT DECLINES REF TO TOBACCO CESS PRGM [facility] Jun 15, 2011 02:23 PM V1-PT READY TO QUIT TOBACCO USE [facility] Apr 13, 2011 10:31 AM V1-PT DECLINES REF TO TOBACCO CESS PRGM [facility] Apr 13, 2011 10:31 AM V1-PT RECEIVES TOBACCO CESS MEDS OUTSIDE [facility] Apr 13, 2011 10:31 AM V1-PT THINKING ABOUT QUIT TOBACCO USE [facility] [place] [facility] Oct 16, 2010 08:52 AM QUIT TOBACCO USE IN PAST YEAR [facility] [place] [facility] May 12, 2010 02:08 PM V1-PT DECLINES REF TO TOBACCO CESS PRGM [facility] May 12, 2010 02:08 PM V1-PT READY TO QUIT TOBACCO USE [facility] May 12, 2010 12:45 PM CURRENT SMOKER 3 cigarettes a day [facility] Encounter Notes: All associated encounter notes This section contains the clinical notes associated to the Encounter. Date/Time Encounter Note(s) Provider Source January 06, 2024 11:06 AM MENTAL HEALTH CONS ULT: LOCAL TITLE: CONSULT REPORT/CRANIAL ELECTROTHERAPY STIMULATION STANDARD TITLE: MENTAL HEALTH CONSULT DATE OF NOTE: JANUARY 06, 2024@11:06 ENTRY DATE: JANUARY 06, 2024@11:06:42 AUTHOR: CHASIDY MADISON COSIGNER: URGENCY: STATUS: COMPLETED F: Session 1 of Alpha Stim trial D: [place] referred for Alpha-Stim trial to help with anxiety, depression, and insomnia symptom management. LENGTH OF TRIAL 1: 20 minutes Lebgth of session: 25 minutes Reviewed possible negative reactions: moderate headache, mild nausea, or dizziness, which may persist for a few minutes after discontinuing treatment. gave permission for the trial. [place] has used alpha stim device in the past. She was familiar with the device and its effects. Topics reviewed: *Oriented [place] to the device manual *Discussed how to calibrate therapeutic electric current level (measure of microampere) *Discussed how to operate the device *Reviewed importance of NOT driving or operating heavy equipment during treatment *Discussed safe activities can perform during treatment such as taking a walk, gardening, engaging in conversations, watching TV/movies (careful to avoid things that are too stimulating/upsetting) *Reviewed action to take if headache is present -> to continue treatment until the headache has resolved for at least 2 minutes *Reviewed mechanism of action (per Alpha-Stim fabricator special items insert/website): Alpha-stim is a device that uses small electrical currents to stimulate certain brain regions. These currents mimic the electrical activity naturally occurring in the brain, which in turn regulates the electrical part of the brain's electrochemical signals. This is how Alpha-Stim helps you get to a place of calm. *Discussed that for the treatment of anxiety, symptom relief is often felt immediately. However, for the treatment of depression and insomnia, consistent symptom relief can take 4-6 weeks. *Discussed potential benefit for headache/secondary pain relief. A: Initiated [place]'s 1st trial session of Alpha-Stim treatment at electrical current: 1 microamperes then slowly increased by 0.5 microampere increments until we reached electrical current of 4 microamperes. Throughout this session, [place] experienced calmness. Negative reactions: none reported Positive reactions: I feel calm, relaxed. PLAN/Recommendation: Continue to 2nd trial of Alpha-stim. Given that has used the device in the past. Only two training sessions are recommended. /jeaan/ CHASIDY MADISON [facility] [employer] [employer] TE[employer] Signed: 01/06/2024 11:09 [facility] MADISON [facility]
--- OUTSIDE RECORDS SUMMARY | 2024-08-04 17:04 | XMS_ITS | Encounter Summary ---
Author Name [facility] [place] Address [address] [place] [address] Care Team Providers Care Air Operations Manager Name Role Phone CADEN FELIZ Primary [...] PLAN I Aug 19, 2019 PLAN I [id number] [phone] MEEK,GR ICEL PATIENT [employer] OPTIONS MEDICARE SUPPLEMEN MARCIA PLANM Y Aug 19, 2019 PLANMY [id number] MEEK,GR ICEL PATIENT [employer] OPTIONS MEDICARE SUPPLEMEN MARCIA AARP MEDIC ARE SUPPL Aug 19, 2019 PLAN MY [id number] MEEK,GR ICEL PATIENT AARP INS MEDICARE SUPPLEMEN MARCIA PLANM Y Aug 19, 2019 PLANMY [id number] MEEK,GR ICEL PATIENT AARP MED SUPP MEDICARE SUPPLEMEN MARCIA Jul 19, 2010 PLANMY [id number] MEEK,GR ICEL PATIENT MEDICARE (WNR) MEDICARE () PART B Aug 19, 2008 PART B [id number] MEEK,GR ICEL PATIENT MEDICARE (WNR) MEDICARE () PART B Aug 19, 2008 PART B [id number] MEEK,GR ICEL PATIENT MEDICARE (WNR) MEDICARE () PART B Aug 19, 2008 PART B [id number] [phone] MEEK,GR ICEL PATIENT MEDICARE (WNR) MEDICARE () PART B Aug 19, 2008 PART B [id number] [phone] MEEK,GR ICEL PATIENT MEDICARE (WNR) MEDICARE () PART B Aug 19, 2008 PART B [id number] MEEK,GR ICEL PATIENT MEDICARE (WNR) MEDICARE () PART B Aug 19, 2008 PART B [id number] MEEK,GR ICEL PATIENT MEDICARE (WNR) MEDICARE () PART B Aug 19, 2008 PART B [id number] [phone] MEEK,GR ICEL PATIENT MEDICARE (WNR) MEDICARE () PART A December 18, 2003 PART A [id number] [id number] [phone] MEEK,GR ICEL PATIENT MEDICARE (WNR) MEDICARE () PART A December 18, 2003 PART A [id number] MEEK,GR ICEL PATIENT MEDICARE (WNR) MEDICARE () PART A December 18, 2003 PART A [id number] MEEK,GR ICEL PATIENT MEDICARE (WNR) MEDICARE () PART A December 18, 2003 PART A [id number] [phone] MEEK,GR ICEL PATIENT MEDICARE (WNR) MEDICARE () PART A December 18, 2003 PART A [id number] MEEK,GR ICEL PATIENT MEDICARE (WNR) MEDICARE () PART A December 18, 2003 PART A [id number] [phone] SABINE MEEK PATIENT MEDICARE (WNR) MEDICARE (M) PART A December 18, 2003 PART A [id number] SABINE MEEK PATIENT Selected Encounter This section includes the information on record at [place] for the Encounter. Date/Time Encounter Type Encounter Description Reason Provider Source January 09, 2024 09:00 AM PSYTX W PT 30 [facility]UTES [facility] - IND ICD-10-CM F43.12 Post-traumatic stress disorder, chronic BELKYS MADISON [facility] Encounter Template Text not used by [place] Assessments - Encounter Diagnoses This section includes the primary and secondary diagnoses documented for the Encounter. Date/Time Primary/Secondary Diagnosis Diagnosis Name Provider Source January 09, 2024 09:26 AM PRIMARY Post-traumatic stress disorder, chronic [facility] January 09, 2024 09:26 AM SECONDARY Insomnia due to other mental disorder [facility] January 09, 2024 09:26 AM SECONDARY Mental disorder, not otherwise specified [facility] January 09, 2024 09:26 AM SECONDARY Other recurrent depressive disorders [facility] Plan of Treatment: Future Appointments (+ 6 months) and Future Tests (+/- 45 days) The Plan of Treatment section includes future care activities for the patient from all [place] treatmentfacilities. This section includes future appointments and future orders which are active, pending or scheduled. Future Appointments This section includes appointments that were scheduled to occur 6 months from the date of the Encounter, up to a maximum of 20 appointments. The data comes from all [place] treatment facilities. Appointment Date/Time Appointment Type Appointme nt Facility Name January 14, 2024 09:30 AM AMBULATORY - MEDICINE [facility] January 16, 2024 10:30 AM [facility] NONE [facility] Jan 20, 2024 01:00 PM [facility] Jan 22, 2024 03:00 PM AMBULATORY - NONE [facility] [place] [facility] Jan 27, 2024 01:00 PM AMBULATORY - PS[facility]CHIATRY [facility] [place] [facility] Feb 03, 2024 01:00 PM AMBULATORY - PS[facility]CHIATRY [facility] [place] [facility] Feb 10, 2024 01:00 PM AMBULATORY - PS[facility]CHIATRY [facility] [place] [facility] Feb 10, 2024 02:00 PM AMBULATORY - NONE [facility] [place] [facility] Feb 17, 2024 12:30 PM AMBULATORY - NONE [facility] [place] [facility] Feb 17, 2024 01:00 PM AMBULATORY - PS[facility]CHIATRY [facility] [place] [facility] Feb 21, 2024 08:30 AM AMBULATORY - MEDICINE [facility] [place] [facility] Feb 24, 2024 01:00 PM AMBULATORY - PSYCHIATRY [facility] [place] [facility] Feb 28, 2024 11:30 AM AMBULATORY - MEDICINE [facility] [place] [facility] Mar 02, 2024 01:00 PM AMBULATORY - PSYCHIATRY [facility] [place] [facility] Mar 06, 2024 09:30 AM AMBULATORY - MEDICINE [facility] [place] [facility] Mar 09, 2024 01:00 PM AMBULATORY - PSYCHIATRY [facility] [place] [facility] Mar 11, 2024 03:15 PM AMBULATORY - MEDICINE [facility] [place] [facility] Mar 18, 2024 08:30 AM AMBULATORY - MEDICINE [facility] [place] [facility] Mar 23, 2024 01:00 PM AMBULATORY - PSYCHIATRY [facility] [place] [facility] Mar 30, 2024 01:00 PM AMBULATORY - PSYCHIATRY [facility] [place] [facility] Social History: Smoking Status (Most [...] Encounter took place. Date/Time Current Smoking Status Elvin zepeda Feb 08, 2023 10:00 AM VA-TOBACCO FORMER USER [facility] [place] [facility] Tobacco Use History This section includes a history of the smoking, or tobacco-related health factors, that were collected on or before the date of the Encounter. The data comes from the [place] facility where the Encounter took place. Date/Time Smoking Status/Tobac co Use Comment Facility Feb 08, 2023 10:00 AM VA-TOBACCO QUIT 15 YRS OR MORE [place] [facility] [place] [facility] Mar 06, 2022 02:30 PM VA-TOBACCO FORMER USER [facility] [place] [facility] Mar 06, 2022 02:30 PM VA-TOBACCO QUIT 15 YRS OR MORE [place] [facility] [place] [facility] Apr 04, 2021 10:28 AM VA-TOBACCO NEVER USED [place] [facility] [place] [facility] May 03, 2020 02:00 PM VA-TOBACCO NEVER USED [place] [facility] [place] [facility] Feb 25, 2019 08:14 AM VA-TOBACCO FORMER USER [place] [facility] [place] [facility] Feb 25, 2019 08:14 AM VA-TOBACCO QUIT 5 TO < 15 YRS [place] [facility] [place] [facility] Apr 04, 2018 10:41 AM QUIT TOBACCO USE 1-7 YEARS AGO [facility] [place] [facility] Oct 28, 2017 10:18 AM QUIT TOBACCO USE 1-7 YEARS AGO [facility] [place] [facility] Jan 22, 2017 01:08 PM QUIT TOBACCO USE 1-7 YEARS AGO [place] [facility] [place] [place] [facility] Jul 18, 2016 01:34 PM QUIT TOBACCO USE 1-7 YEARS AGO [facility] [place] [facility] January 10, 2016 10:32 AM QUIT TOBACCO USE 1-7 YEARS AGO [facility] [place] [facility] Oct 13, 2015 11:05 AM QUIT TOBACCO USE 1-7 YEARS AGO [facility] [place] [facility] Oct 19, 2014 01:53 PM QUIT TOBACCO USE > 7 YEARS AGO [facility] [place] [facility] January 02, 2014 01:30 AM QUIT TOBACCO USE IN PAST YEAR [place] [facility] [place] [facility] Jun 18, 2013 09:00 AM CURRENT SMOKER 6 cigarettes qd [facility] [place] [facility] Jun 18, 2013 09:00 AM V1-PT DECLINES TOBACCO CESSATION [facility] Jun 18, 2013 09:00 AM V1-PT NOT INTERESTED IN QUIT TOBACCO USE [facility] [place] [facility] December 24, 2012 10:51 AM V1-PT DECLINES REF TO TOBACCO CESS [facility] [place] [facility] December 24, 2012 10:51 AM V1-PT DECLINES TOBACCO CESSATION MEDS [facility] [place] [place] [facility] December 24, 2012 10:51 AM V1-PT THINKING ABOUT [facility] [place] [facility] Jul 15, 2012 10:19 AM QUIT TOBACCO USE IN [facility]ST [facility] Jan 25, 2012 05:02 PM QUIT TOBACCO USE IN PAST [facility]AR [facility] Sep 28, 2011 10:09 AM CURRENT SMOKER 5 cigarettes a day [facility] Jun 15, 2011 02:23 PM V1-PT DECLINES REF TO TOBACCO CESS PR[facility] Jun 15, 2011 02:23 PM V1-PT READY TO QUIT [facility]BACCO [facility] Apr 13, 2011 10:31 AM V1-PT DECLINES REF TO TOBACCO CESS PR[facility] Apr 13, 2011 10:31 AM V1-PT RECEIVES TOBACCO CESS MEDS OUT[facility]IDE [facility] Apr 13, 2011 10:31 AM V1-PT THINKING ABOUT QUIT TOBACCO USE [facility] [place] [facility] Oct 16, 2010 08:52 AM QUIT TOBACCO USE IN PAST YEAR [facility] [place] [facility] May 12, 2010 02:08 PM V1-PT DECLINES REF TO TOBACCO CESS PR[facility] May 12, 2010 02:08 PM V1-PT READY TO QUIT TOBACCO USE [facility] May 12, 2010 12:45 PM CURRENT SMOKER 3 cigarettes a day [facility] Encounter Notes: All associated encounter notes This section contains the clinical notes associated to the Encounter. Date/Time Encounter Note(s) Provider Source January 09, 2024 09:20 AM SOCIAL WORK NOTE: LOCAL TITLE: SOCIAL WORK NOTE STANDARD TITLE: SOCIAL WORK NOTE DATE OF NOTE: JANUARY 09, 2024@09:20 ENTRY DATE: JANUARY 09, 2024@09:22:07 AUTHOR: CHASIDY MADISON COSIGNER: URGENCY: STATUS: COMPLETED F: Session 2 of Alpha Stim trial D: referred for Alpha-Stim trial to help with anxiety, depression, and insomnia symptom management. LENGTH OF TRIAL 1: 20 minutes length of session: 30 minutes Reviewed possible negative reactions: moderate headache, mild nausea, or dizziness, which may persist for a few minutes after discontinuing treatment. gave permission for the trial. Topics reviewed: *Oriented to the device manual *Discussed how to calibrate therapeutic electric current level (measure of microampere) *Discussed how to operate the device *Reviewed importance of NOT driving or operating heavy equipment during treatment *Discussed safe activities Pulteney can perform during treatment such as taking a walk, gardening, engaging in conversations, watching TV/movies (careful to avoid things that are too stimulating/upsetting) *Reviewed action to take if headache is present -> to continue treatment until the headache has resolved for at least 2 minutes *Reviewed mechanism of action (per Alpha-Stim rn staffing insert/website): Alpha-stim is a device that uses [...] benefit for headache/secondary pain relief. A: Initiated 's 1st trial session of Alpha-Stim treatment at electrical current: 3 microamperes then slowly increased by 0.5 microampere increments until we reached electrical current of 5 microamperes. Pulteney felt slightly uncomfortable, so the current was brought back to 4.5. Pulteney set up the device independently. Throughout this session, experienced relaxation, calmness. Negative reactions: slight nausia at 5 microamperes Positive reactions: relaxation, calmness. PLAN/Recommendation: Pulteney was already familiar with Alpha Stim, having used it in the past. It's this sign writer hand opinion that she doesn't need three training sessions, but only two. Pulteney is ready to take the device home today. /jeana/ [facility] F[employer]CTION[employer] SUPERVISOR Signed: 01/09/2024 09:26 [facility] MADISON [facility]
--- OUTSIDE RECORDS SUMMARY | 2024-08-04 17:04 | XMS_ITS | Encounter Summary ---
Author Name [facility] [place] Address [address] [place] [address] Care Team Providers Care Coconut Boiler Name Role Phone CADEN FELIZ Primary Care [...] PLAN I Aug 19, 2019 PLAN I [id number] [phone] MEEK,SABINE ICEL PATIENT [employer] OPTIONS MEDICARE SUPPLEMEN MARCIA PLANM Y Aug 19, 2019 PLANMY [id number] [phone] MEEK,GR ICEL PATIENT [employer] OPTIONS MEDICARE SUPPLEMEN MARCIA AARP MEDIC ARE SUPPL Aug 19, 2019 PLAN MY [id number] [phone] MEEK,GR ICEL PATIENT AARP INS MEDICARE SUPPLEMEN MARCIA PLANM Y Aug 19, 2019 PLANMY [id number] MEEK,GR ICEL PATIENT AARP MED SUPP MEDICARE SUPPLEMEN MARCIA Jul 19, 2010 PLANMY [id number] MEEK,GR ICEL PATIENT MEDICARE (WNR) MEDICARE () PART B Aug 19, 2008 PART B [id number] MEEK,GR ICEL PATIENT MEDICARE (WNR) MEDICARE () PART B Aug 19, 2008 PART B [id number] MEEK,GR ICEL PATIENT MEDICARE (WNR) MEDICARE () PART B Aug 19, 2008 PART B [id number] MEEK,GR ICEL PATIENT MEDICARE (WNR) MEDICARE () PART B Aug 19, 2008 PART B [id number] MEEK,GR ICEL PATIENT MEDICARE (WNR) MEDICARE () PART B Aug 19, 2008 PART B [id number] MEEK,GR ICEL PATIENT MEDICARE (WNR) MEDICARE () PART B Aug 19, 2008 PART B [id number] MEEK,GR ICEL PATIENT MEDICARE (WNR) MEDICARE () PART B Aug 19, 2008 PART B [id number] [phone] MEEK,GR ICEL PATIENT MEDICARE (WNR) MEDICARE () PART A December 18, 2003 PART A [id number] [phone] MEEK,GR ICEL PATIENT MEDICARE (WNR) MEDICARE () PART A December 18, 2003 PART A [id number] MEEK,GR ICEL PATIENT MEDICARE (WNR) MEDICARE () PART A December 18, 2003 PART A [id number] MEEK,GR ICEL PATIENT MEDICARE (WNR) MEDICARE () PART A December 18, 2003 PART A [id number] [phone] MEEK,GR ICEL PATIENT MEDICARE (WNR) MEDICARE () PART A December 18, 2003 PART A [id number] MEEK,GR ICEL PATIENT MEDICARE (WNR) MEDICARE () PART A December 18, 2003 PART A [id number] SABINE MEEK PATIENT MEDICARE (WNR) MEDICARE (M) PART A December 18, 2003 PART A [id number] SABINE MEEK PATIENT Selected Encounter This section includes the information on record at [place] for the Encounter. Date/Time Encounter Type Encounter Description Reason Pro vider Source December 31, 2023 12:00 PM Outpatient Encounter COMMUNITY CARE CONSULT IHE Encounter Template Text not used by [place] Plan of Treatment: Future Appointments (+ 6 [...] Appointment Type Appointme nt Facility Name January 06, 2024 11:00 AM AMBULATORY - [facility]IATRY [facility] [place] [facility] January 06, 2024 01:00 PM AMBULATORY - PSYCHIATRY [facility] [place] [facility] January 07, 2024 08:00 AM AMBULATORY - MEDICINE [place] [facility] [place] [facility] January 09, 2024 09:00 AM AMBULATORY - PSYCHIATRY [facility] [place] [facility] January 14, 2024 09:30 AM AMBULATORY - MEDICINE [place] [facility] [place] [facility] January 16, 2024 10:30 AM AMBULATORY - NONE [facility] [place] [facility] Jan 20, 2024 01:00 PM AMBULATORY - PSYCHIATRY [facility] [place] [facility] Jan 22, 2024 03:00 PM AMBULATORY - NONE [facility] [place] [facility] Jan 27, 2024 01:00 PM AMBULATORY - PSYCHIATRY [facility] [place] [facility] Feb 03, 2024 01:00 PM AMBULATORY - PSYCHIATRY [facility] [place] [facility] Feb 10, 2024 01:00 PM AMBULATORY - PSYCHIATRY [facility] [place] [facility] Feb 10, 2024 02:00 PM AMBULATORY - NONE [facility] [place] [facility] Feb 17, 2024 12:30 PM AMBULATORY - NONE [facility] [place] [facility] Feb 17, 2024 01:00 PM AMBULATORY - PSYCHIATRY [facility] [place] [facility] Feb 21, 2024 08:30 AM AMBULATORY - MEDICINE [facility] [place] [facility] Feb 24, 2024 01:00 PM AMBULATORY - PSYCHIATRY [facility] [place] [facility] Feb 28, 2024 11:30 AM AMBULATORY - MEDICINE [facility] [place] [facility] Mar 02, 2024 01:00 PM AMBULATORY - PSYCHIATRY [facility] [place] [facility] Mar 06, 2024 09:30 AM AMBULATORY - MEDICINE [facility] [place] [facility] Mar 09, 2024 01:00 PM AMBULATORY - PSYCHIATRY [facility] [place] [facility] Social History: Smoking Status (Most current) and [...] took place. Date/Time Current Smoking Status Comment [facility] Feb 08, 2023 10:00 AM VA-TOBACCO FORMER USER [place] [facility] [place] [facility] Tobacco Use History This section includes a history of the smoking, or tobacco-related health factors, that were collected on or before the date of the Encounter. The data comes from the [place] facility where the Encounter took place. Date/Time Smoking Status/Tobac co Use Comment Facility Feb 08, 2023 10:00 AM VA-TOBACCO QUIT 15 YRS OR MORE [facility] [place] [facility] Mar 06, 2022 02:30 PM VA-TOBACCO FORMER USER [facility] [place] [facility] Mar 06, 2022 02:30 PM VA-TOBACCO QUIT 15 YRS OR MORE [facility] [place] [facility] Apr 04, 2021 10:28 AM VA-TOBACCO NEVER USED [facility] [place] [facility] May 03, 2020 02:00 PM VA-TOBACCO NEVER USED [facility] [place] [facility] Feb 25, 2019 08:14 AM VA-TOBACCO FORMER USER [place] [facility] [place] [facility] Feb 25, 2019 08:14 AM VA-TOBACCO QUIT 5 TO < 15 YRS [place] [facility] [place] [facility] Apr 04, 2018 10:41 AM QUIT TOBACCO USE 1-7 YEARS AGO [place] [facility] [place] [facility] Oct 28, 2017 10:18 AM QUIT TOBACCO USE 1-7 YEARS AGO [place] [facility] [place] [facility] Jan 22, 2017 01:08 PM QUIT TOBACCO USE 1-7 YEARS AGO [place] [facility] [place] [facility] Jul 18, 2016 01:34 PM QUIT TOBACCO USE 1-7 YEARS AGO [place] [facility] [place] [facility] January 10, 2016 10:32 AM QUIT TOBACCO USE 1-7 YEARS AGO [place] [facility] [place] [facility] Oct 13, 2015 11:05 AM QUIT TOBACCO USE [facility] [place] [facility] Oct 19, 2014 01:53 PM QUIT TOBACCO USE > 7 YEARS AGO [place] [facility] [place] [facility] January 02, 2014 01:30 AM QUIT TOBACCO USE IN PAST YEAR [facility] [place] [facility] Jun 18, 2013 09:00 AM CURRENT SMOKER 6 cigarettes qd [place] [facility] [place] [facility] Jun 18, 2013 09:00 AM V1-PT DECLINES TOBACCO CESSATION [facility] [place] [facility] Jun 18, 2013 09:00 AM V1-PT NOT INTERESTED IN QUIT TOBACCO USE [facility] [place] [facility] December 24, 2012 10:51 AM V1-PT DECLINES REF TO TOBACCO CESS PRGM [place] [facility] [place] [facility] December 24, 2012 10:51 AM V1-PT DECLINES TOBACCO [facility]ESSATION [facility] [place] [facility] December 24, 2012 10:51 AM V1-PT THINKING ABOUT QUIT TOBACCO USE [place] [facility] [place] [facility] Jul 15, 2012 10:19 AM QUIT TOBACCO USE IN PAST YEAR [place] [facility] [place] [facility] Jan 25, 2012 05:02 PM QUIT TOBACCO USE IN PAST YEAR [place] [facility] [place] [facility] Sep 28, 2011 10:09 AM CURRENT SMOKER 5 cigarettes a day [facility] Jun 15, 2011 02:23 PM V1-PT DECLINES REF TO TOBACCO CESS PRGM [facility] Jun 15, 2011 02:23 PM V1-PT READY TO QUIT TOBACCO USE [facility] Apr 13, 2011 10:31 AM V1-PT DECLINES REF TO TOBACCO CESS PRGM [facility] Apr 13, 2011 10:31 AM V1-PT RECEIVES TOBACCO CESS MEDS OUTSIDE [facility] Apr 13, 2011 10:31 AM V1-PT THINKING ABOUT QUIT TOBACCO USE [facility] Oct 16, 2010 08:52 AM QUIT TOBACCO USE IN PAST YEAR [facility] May 12, 2010 02:08 PM V1-PT DECLINES REF TO TOBACCO CESS PRGM [facility] May 12, 2010 02:08 PM V1-PT READY TO QUIT TOBACCO USE [facility] May 12, 2010 12:45 PM CURRENT SMOKER 3 cigarettes a day [facility] Encounter Notes: All associated encounter notes This section contains the clinical notes associated to the Encounter. Date/Time Encounter Note(s) Provider Source December 31, 2023 12:00 PM NONVA CONSULT: LOCAL TITLE: COMMUNITY CARE-CONSULT RESULT NOTE STANDARD TITLE: NONVA CONSULT DATE OF NOTE: DECEMBER 31, 2023@12:00 ENTRY DATE: JANUARY 07, 2024@14:44:15 AUTHOR: MYACOL SARAVIA EXP COSIGNER: URGENCY: STATUS: COMPLETED VistA Imaging - Scanned Document SCANNED DOCUMENT SIGNATURE NOT REQUIRED Electronically Filed: 01/07/2024 by: MAYCOL WHITT [facility]
--- OUTSIDE RECORDS SUMMARY | 2024-08-04 17:05 | XMS_ITS | Encounter Summary ---
Author Name [facility] Organization [facility] Address [address] [place] [address] Care Team Providers Care Chairman And Ceo Name Role Phone CADEN FELIZ Primary Care [...] PLAN I Aug 19, 2019 PLAN I [id number] [phone] MEEK,GR ICEL PATIENT [employer] OPT[employer] MEDICARE SUPPLEMEN MARCIA PLANM Y Aug 19, 2019 PLANMY [id number] [phone] MEEK,GR ICEL PATIENT [employer] OPTIONS MEDICARE SUPPLEMEN MARCIA AARP MEDIC ARE SUPPL Aug 19, 2019 PLAN MY [id number] MEEK,GR ICEL PATIENT A[employer] INS MEDICARE SUPPLEMEN MARCIA PLANM Y Aug 19, 2019 PLANMY [id number] MEEK,GR ICEL PATIENT AARP MED SUPP MEDICARE SUPPLEMEN MARCIA Jul 19, 2010 PLANMY [id number] [phone] MEEK,GR ICEL PATIENT MEDICARE (WNR) MEDICARE () PART B Aug 19, 2008 PART B [id number] MEEK,GR ICEL PATIENT MEDICARE (WNR) MEDICARE () PART B Aug 19, 2008 PART B [id number] [phone] MEEK,GR ICEL PATIENT MEDICARE (WNR) MEDICARE () PART B Aug 19, 2008 PART B [id number] [phone] MEEK,GR ICEL PATIENT MEDICARE (WNR) MEDICARE () PART B Aug 19, 2008 PART B [id number] MEEK,GR ICEL PATIENT MEDICARE (WNR) MEDICARE () PART B Aug 19, 2008 PART B [id number] [phone] MEEK,GR ICEL PATIENT MEDICARE (WNR) MEDICARE () PART B Aug 19, 2008 PART B [id number] MEEK,GR ICEL PATIENT MEDICARE (WNR) MEDICARE () PART B Aug 19, 2008 PART B [id number] MEEK,GR ICEL PATIENT MEDICARE (WNR) MEDICARE () PART A December 18, 2003 PART A [id number] [phone] MEEK,GR ICEL PATIENT MEDICARE (WNR) MEDICARE () PART A December 18, 2003 PART A [id number] [phone] MEEK,GR ICEL PATIENT MEDICARE (WNR) MEDICARE () PART A December 18, 2003 PART A [id number] [phone] MEEK,GR ICEL PATIENT MEDICARE (WNR) MEDICARE () PART A December 18, 2003 PART A [id number] MEEK,GR ICEL PATIENT MEDICARE (WNR) MEDICARE () PART A December 18, 2003 PART A [id number] MEKE,GR ICEL PATIENT MEDICARE (WNR) MEDICARE () PART A December 18, 2003 PART A [id number] SABINE MEEK PATIENT MEDICARE (WNR) MEDICARE (M) PART A December 18, 2003 PART A [id number] SABINE MEEK PATIENT Selected Encounter This section includes the information on record at [place] for the Encounter. Date/Time Encounter Type Encounter Description Reason Pro vider Source Jan 21, 2024 09:21 AM Outpatient Encounter DENTAL IHE Encounter Template Text not used by [place] Plan of Treatment: Future Appointments (+ 6 months) and Future Tests (+/- 45 days) The Plan of Treatment section includes future care activities for the [facility] This section includes future appointments and future orders which are active, pending or scheduled. Future Appointments This section includes appointments that were scheduled to occur 6 months from the date of the Encounter, up to a maximum of 20 appointments. The data comes from all [place] treatment facilities. Appointment Date/Time Appointment Type Appointme nt Facility Name Jan 22, 2024 03:00 PM AM[facility]ULATORY [facility] NONE [facility] [place] [facility] Jan 27, 2024 01:00 PM AMBULATORY - PS[facility]CHIATRY [facility] [place] [facility] Feb 03, 2024 01:00 PM AMBULATORY - PS[facility]ATRY [facility] [place] [facility] Feb 10, 2024 01:00 PM AMBULATORY - [facility]IATRY [facility] [place] [facility] Feb 10, 2024 02:00 PM AMBULATORY - NONE [facility] [place] [facility] Feb 17, 2024 12:30 PM AMBULATORY - NONE [facility] [place] [facility] Feb 17, 2024 01:00 PM AMBULATORY - PS[facility]IATRY [facility] [place] [facility] Feb 21, 2024 08:30 AM AMBULATORY - MEDICINE [facility] [place] [facility] Feb 24, 2024 01:00 PM AMBULATORY [facility] [place] [facility] Feb 28, 2024 11:30 AM AMBULATORY - MEDICINE [facility] [place] [facility] Mar 02, 2024 01:00 PM AMBULATORY [facility]ATRY [facility] [place] [facility] Mar 06, 2024 09:30 AM AMBULATORY - MEDICINE [facility] [place] [facility] Mar 09, 2024 01:00 PM AMBULATORY - [facility]IATRY [facility] [place] [facility] Mar 11, 2024 03:15 PM AMBULATORY - MEDICINE [facility] [place] [facility] Mar 18, 2024 08:30 AM AMBULATORY - MEDICINE [facility] [place] [facility] Mar 23, 2024 01:00 PM AMBULATORY - PS[facility]CHIATRY [facility] [place] [facility] Mar 30, 2024 01:00 PM AMBULATORY - PS[facility]IATRY [facility] [place] [facility] Apr 06, 2024 12:30 PM AMBULATORY - MEDICINE [facility] [place] [facility] Apr 06, 2024 01:00 PM AMBULATORY - MEDICINE [facility] Apr 23, 2024 08:40 AM AMBULATORY [facility] Active, Pending, and Scheduled Orders This section includes a listing of several types of active, pending, and scheduled orders, including clinic medications orders, diagnostic test orders, procedure orders and consult orders; where the start date of the order is 45 days before the date of the Encounter or 45 days after the date of theEncounter. The data comes from all [place] treatment facilities. Test Date/Time Test Type Test Details Facility Name Feb 28, 2024 12:49 PM Consult Order COMMUNITY CARE-CARDIOLOGY Cons Burner Operator's Choice [facility] Social History: Smoking Status (Most [...] took place. Date/Time Current Smoking Status Comment [facility] it Feb 08, 2023 10:00 AM VA-TOBACCO FORMER USER [facility] Tobacco Use History This section includes a history of the smoking, or tobacco-related health factors, that were collected on or before the date of the Encounter. The data comes from the [place] facility where the Encounter took place. Date/Time Smoking Status/Tobac co Use Comment Facility Feb 08, 2023 10:00 AM MS-TOBACCO QUIT 15 YRS OR MORE [facility] [place] [facility] Mar 06, 2022 02:30 PM VA-TOBACCO FORMER USER [facility] [place] [facility] Mar 06, 2022 02:30 PM VA-TOBACCO QUIT 15 YRS OR MORE [facility] [place] [facility] Apr 04, 2021 10:28 AM VA-TOBACCO NEVER USED [facility] [place] [facility] May 03, 2020 02:00 PM VA-TOBACCO NEVER USED [facility] [place] [facility] Feb 25, 2019 08:14 AM VA-TOBACCO FORMER USER [facility] [place] [facility] Feb 25, 2019 08:14 AM VA-TOBACCO QUIT 5 TO < 15 YRS [facility] [place] [facility] Apr 04, 2018 10:41 AM QUIT TOBACCO USE 1-7 YEARS AGO [facility] [place] [facility] Oct 28, 2017 10:18 AM QUIT TOBACCO USE 1-7 YEARS AGO [facility] [place] [facility] Jan 22, 2017 01:08 PM QUIT TOBACCO USE 1-7 YEARS AGO [facility] [place] [facility] Jul 18, 2016 01:34 PM QUIT TOBACCO USE 1-7 YEARS AGO [facility] [place] [facility] January 10, 2016 10:32 AM QUIT TOBACCO USE 1-7 YEARS AGO [facility] [place] [facility] Oct 13, 2015 11:05 AM QUIT TOBACCO USE 1-7 YEARS AGO [facility] [place] [facility] Oct 19, 2014 01:53 PM QUIT TOBACCO USE > 7 YEARS AGO [facility] [place] [facility] January 02, 2014 01:30 AM QUIT TOBACCO USE IN PAST YEAR [facility] [place] [facility] Jun 18, 2013 09:00 AM CURRENT SMOKER 6 cigarettes qd [facility] [place] [facility] Jun 18, 2013 09:00 AM V1-PT DECLINES TOBACCO CESSATION MEDS [facility] [place] [facility] Jun 18, 2013 09:00 AM V1-PT NOT INTERESTED IN QUIT TOBACCO USE [facility] [place] [facility] December 24, 2012 10:51 AM V1-PT DECLINES REF TO TOBACCO CESS PRGM [facility] [place] [facility] December 24, 2012 10:51 AM V1-PT DECLINES TOBACCO CESSATION MEDS [facility] December 24, 2012 10:51 AM V1-PT THINKING ABOUT QUIT TOBACCO USE [facility] Jul 15, 2012 10:19 AM QUIT TOBACCO USE IN PAST YEAR [facility] Jan 25, 2012 05:02 PM QUIT TOBACCO USE IN PAST YEAR [facility] Sep 28, 2011 10:09 AM CURRENT SMOKER 5 cigarettes a day [facility] Jun 15, 2011 02:23 PM V1-PT DECLINES REF TO TOBACCO CESS PRGM [facility] Jun 15, 2011 02:23 PM V1-PT READY TO QUIT TOBACCO USE [facility] Apr 13, 2011 10:31 AM V1-PT DECLINES REF TO TOBACCO CESS PRGM [facility] Apr 13, 2011 10:31 AM V1-PT RECEIVES TOBACCO CESS MEDS OUTSIDE [facility] Apr 13, 2011 10:31 AM V1-PT THINKING ABOUT QUIT TOBACCO USE [facility] Oct 16, 2010 08:52 AM QUIT TOBACCO USE IN PAST YEAR [facility] May 12, 2010 02:08 PM V1-PT DECLINES REF TO TOBACCO CESS PRGM [facility] May 12, 2010 02:08 PM V1-PT READY TO QUIT TOBACCO USE [facility] May 12, 2010 12:45 PM CURRENT SMOKER 3 cigarettes a day [facility] Encounter Notes: All associated encounter notes This section contains the clinical notes associated to the Encounter. Date/Time Encounter Note(s) Provider Source Jan 21, 2024 09:21 AM DENTISTRY TELEPHON E ENCOUNTER NOTE: LOCAL TITLE: TELEPHONE NOTE/DENTAL STANDARD TITLE: DENTISTRY TELEPHONE ENCOUNTER NOTE DATE OF NOTE: JAN 21, 2024@09:21 ENTRY DATE: JAN 21, 2024@09:22:01 AUTHOR: SHANTA ANTOINE EXP COSIGNER: URGENCY: STATUS: COMPLETED Spoke with pt to confirm dental appointment on 01/22/2024 at 3:00 pm. /jeana/ SHANTA ANTOINE [employer] Signed: 01/21/2024 09:22 SHANTA ANTOINE [facility]
--- OUTSIDE RECORDS SUMMARY | 2024-08-04 17:05 | XMS_ITS | Encounter Summary ---
Author Name [facility] [place] [facility] [place] Address [address] [place] [address] Care Team Providers Care Dental Billing Specialist Name Role Phone CADEN FELIZ Primary [...] PLAN I Aug 19, 2019 PLAN I [id number] [phone] MEEK,GR ICEL PATIENT [employer] MEDICARE SUPPLEMEN MARCIA PLANM Y Aug 19, 2019 PLANMY [id number] [phone] MEEK,GR ICEL PATIENT [employer] OPTIONS MEDICARE SUPPLEMEN MARCIA AARP MEDIC ARE SUPPL Aug 19, 2019 PLAN MY [id number] MEEK,GR ICEL PATIENT A[employer] INS MEDICARE SUPPLEMEN MARCIA PLANM Y Aug 19, 2019 PLANMY [id number] MEEK,GR ICEL PATIENT AARP MED SUPP MEDICARE SUPPLEMEN MARCIA Jul 19, 2010 PLANMY [id number] MEEK,GR ICEL PATIENT MEDICARE (WNR) MEDICARE () PART B Aug 19, 2008 PART B [id number] MEEK,GR ICEL PATIENT MEDICARE (WNR) MEDICARE () PART B Aug 19, 2008 PART B [id number] MEEK,GR ICEL PATIENT MEDICARE (WNR) MEDICARE () PART B Aug 19, 2008 PART B [id number] MEEK,GR ICEL PATIENT MEDICARE (WNR) MEDICARE () PART B Aug 19, 2008 PART B [id number] [phone] MEEK,GR ICEL PATIENT MEDICARE (WNR) MEDICARE () PART B Aug 19, 2008 PART B [id number] MEEK,GR ICEL PATIENT MEDICARE (WNR) MEDICARE () PART B Aug 19, 2008 PART B [id number] [phone] MEEK,GR ICEL PATIENT MEDICARE (WNR) MEDICARE () PART B Aug 19, 2008 PART B [id number] MEEK,GR ICEL PATIENT MEDICARE (WNR) MEDICARE () PART A December 18, 2003 PART A [id number] MEEK,GR ICEL PATIENT MEDICARE (WNR) MEDICARE () PART A December 18, 2003 PART A [id number] MEEK,GR ICEL PATIENT MEDICARE (WNR) MEDICARE () PART A December 18, 2003 PART A [id number] [phone] MEEK,GR ICEL PATIENT MEDICARE (WNR) MEDICARE () PART A December 18, 2003 PART A [id number] MEEK,GR ICEL PATIENT MEDICARE (WNR) MEDICARE () PART A December 18, 2003 PART A [id number] MEEK,GR ICEL PATIENT MEDICARE (WNR) MEDICARE () PART A December 18, 2003 PART A [id number] SABINE MEEK PATIENT MEDICARE (WNR) MEDICARE (M) PART A December 18, 2003 PART A [id number] SABINE MEEK PATIENT Selected Encounter This section includes the information on record at [place] for the Encounter. Date/Time Encounter Type Encounter Description Reason Provider Source January 16, 2024 10:30 AM BRIEF ASSESSMENT DENTAL ICD-10-CM K08.409 Partial loss of teeth, unspecified cause, unspecified class TIFF GARCIA IHDarshan Encounter Template Text not used by [place] Assessments - Encounter Diagnoses This section includes the primary and secondary diagnoses documented for the Encounter. Date/Time Primary/Secondary Diagnosis Diagnosis Name Provider Source January 16, 2024 05:09 PM PRIMARY Partial loss of teeth, unspecified cause, unspecified class MARK GARCIA [facility] [place] [facility] Plan of Treatment: Future Appointments (+ 6 months) and Future Tests (+/- 45 days) The Plan of Treatment section includes future care activities for the patient [facility] [place] [facility] This section includes future appointments and future orders which are active, pending or scheduled. Future Appointments This section includes appointments that were scheduled to occur 6 months from the date of the Encounter, up to a maximum of 20 appointments. The data comes from all [place] treatment facilities. Appointment Date/Time Appointment Type Appointme nt Facility Name Jan 20, 2024 01:00 PM AMBULATORY - PSYCHIATRY [facility] [place] [facility] Jan 22, 2024 03:00 PM AMBULATORY - NONE [facility] [place] [facility] Jan 27, 2024 01:00 PM AMBULATORY - PSYCHIATRY [facility] [place] [facility] Feb 03, 2024 01:00 PM AMBULATORY - PSYCHIATRY [facility] [place] [facility] Feb 10, 2024 01:00 PM AMBULATORY - PSYCHIATRY [facility] [place] [facility] Feb 10, 2024 02:00 PM AMBULATORY - NONE [facility] [place] [facility] Feb 17, 2024 12:30 PM AMBULATORY - NONE [facility] [place] [facility] Feb 17, 2024 01:00 PM AMBULATORY - PSYCHIATRY [facility] [place] [facility] Feb 21, 2024 08:30 AM AMBULATORY - MEDICINE [facility] [place] [facility] Feb 24, 2024 01:00 PM AMBULATORY - PSYCHIATRY [facility] [place] [facility] Feb 28, 2024 11:30 AM AMBULATORY - MEDICINE [facility] [place] [facility] Mar 02, 2024 01:00 PM AMBULATORY - PSYCHIATRY [facility] [place] [facility] Mar 06, 2024 09:30 AM AMBULATORY - MEDICINE [facility] [place] [facility] Mar 09, 2024 01:00 PM AMBULATORY - PSYCHIATRY [facility] [place] [facility] Mar 11, 2024 03:15 PM AMBULATORY - MEDICINE [facility] [place] [facility] Mar 18, 2024 08:30 AM AMBULATORY - MEDICINE [facility] [place] [facility] Mar 23, 2024 01:00 PM AMBULATORY - PSYCHIATRY [facility] [place] [facility] Mar 30, 2024 01:00 PM AMBULATORY - PSYCHIATRY [facility] [place] [facility] Apr 06, 2024 12:30 PM AMBULATORY - MEDICINE [facility] [place] [facility] Apr 06, 2024 01:00 PM AMBULATORY - MEDICINE [facility] [place] [facility] Active, Pending, and Scheduled Orders This section includes a listing of several types of active, pending, and scheduled orders, including clinic medications orders, diagnostic test orders, procedure orders and consult orders; where the start date of the order is 45 days before the date of the Encounter or 45 days after the date of theEncounter. The data comes from all [place] treatment facilities. Test Date/Time Test Type Test Details Facility Name Feb 28, 2024 12:49 PM Consult Order COMMUNITY CARE-CARDIOLOGY Cons Housing Manager's Choice [facility] [place] [facility] Social History: Smoking Status (Most [...] 08, 2023 10:00 AM VA-TOBACCO FORMER USER [facility] [place] [facility] Tobacco Use History This section includes a history of the smoking, or tobacco-related health factors, that were collected on or before the date of the Encounter. The data comes from the [place] facility where the Encounter took place. Date/Time Smoking Status/Tobac co Use Comment [facility] Feb 08, 2023 10:00 AM VA-TOBACCO QUIT 15 YRS OR MORE [facility] [place] [facility] Mar 06, 2022 02:30 PM VA-TOBACCO FORMER USER [facility] [place] [facility] Mar 06, 2022 02:30 PM VA-TOBACCO QUIT 15 YRS OR MORE [facility] [place] [facility] Apr 04, 2021 10:28 AM VA-TOBACCO NEVER USED [facility] [place] [facility] May 03, 2020 02:00 PM VA-TOBACCO NEVER USED [facility] [place] [facility] Feb 25, 2019 08:14 AM VA-TOBACCO FORMER USER [facility] [place] [facility] Feb 25, 2019 08:14 AM VA-TOBACCO QUIT 5 TO < 15 YRS [facility] [place] [facility] Apr 04, 2018 10:41 AM QUIT TOBACCO USE 1-7 YEARS AGO [facility] [place] [facility] Oct 28, 2017 10:18 AM QUIT TOBACCO USE 1-7 YEARS AGO [facility] [place] [facility] Jan 22, 2017 01:08 PM QUIT TOBACCO USE 1-7 YEARS AGO [facility] [place] [facility] Jul 18, 2016 01:34 PM QUIT TOBACCO USE 1-7 YEARS AGO [facility] [place] [facility] January 10, 2016 10:32 AM QUIT TOBACCO USE 1-7 YEARS AGO [facility] [place] [facility] Oct 13, 2015 11:05 AM QUIT TOBACCO USE 1-7 YEARS AGO [facility] [place] [facility] Oct 19, 2014 01:53 PM QUIT TOBACCO USE > 7 YEARS AGO [facility] [place] [facility] January 02, 2014 01:30 AM QUIT TOBACCO USE IN PAST YEAR [facility] [place] [facility] Jun 18, 2013 09:00 AM CURRENT SMOKER 6 cigarettes qd [facility] [place] [facility] Jun 18, 2013 09:00 AM V1-PT DECLINES TOBACCO CESSATION [facility] [place] [facility] Jun 18, 2013 09:00 AM V1-PT NOT INTERESTED IN QUIT TOBACCO USE [facility] [place] [facility] December 24, 2012 10:51 AM V1-PT DECLINES REF TO TOBACCO CESS PRGM [facility] [place] [place] [facility] December 24, 2012 10:51 AM V1-PT DECLINES TOBACCO CESSATION MEDS [facility] [place] [place] [facility] December 24, 2012 10:51 AM V1-PT THINKING ABOUT QUIT TOBACCO USE [facility] [place] [place] [facility] Jul 15, 2012 10:19 AM QUIT TOBACCO USE IN PAST YEAR [facility] [place] [facility] Jan 25, 2012 05:02 PM QUIT TOBACCO USE IN PAST YEAR [facility] Sep 28, 2011 10:09 AM CURRENT SMOKER 5 cigarettes a day [facility] [place] [facility] Jun 15, 2011 02:23 PM V1-PT DECLINES REF TO TOBACCO CESS PRGM [facility] Jun 15, 2011 02:23 PM V1-PT READY TO QUIT TOBACCO USE [facility] [place] [facility] Apr 13, 2011 10:31 AM V1-PT DECLINES REF TO TOBACCO CESS [facility] Apr 13, 2011 10:31 AM V1-PT RECEIVES TOBACCO CESS MEDS OUTSIDE [facility] Apr 13, 2011 10:31 AM V1-PT THINKING ABOUT QUIT TOBACCO USE [facility] [place] [place] [facility] Oct 16, 2010 08:52 AM QUIT TOBACCO USE IN PAST YEAR [facility] [place] [facility] May 12, 2010 02:08 PM V1-PT DECLINES REF TO TOBACCO CESS PRGM [facility] [place] [place] [facility] May 12, 2010 02:08 PM V1-PT READY TO QUIT TOBACCO USE [facility] May 12, 2010 12:45 PM CURRENT SMOKER 3 cigarettes a day [facility] Encounter Notes: All associated encounter notes This section contains the clinical notes associated to the Encounter. Date/Time Encounter Note(s) Provider Source January 16, 2024 05:03 PM DENTISTRY NOTE: LOCAL TITLE: DENTAL NOTE STANDARD TITLE: DENTISTRY NOTE DATE OF NOTE: JANUARY 16, 2024@17:03 ENTRY DATE: JANUARY 16, 2024@17:09:50 AUTHOR: HAL GARCIA COSIGNER: URGENCY: STATUS: COMPLETED Patient Name: PEBBLES MEEK, : 1950, Age: 73 Visit: S: January 16, 2024@10:30 CWM/NO/DENTAL/DMD4. Primary PCE Diagnosis: K08.409 (PARTIAL LOSS OF TEETH, UNSPECIFIED CAUSE, UNSPECIFIED CLASS). Dental Category: 15-OPC, Class IV. Treatment Status: Maintenance. Completed Care: ([id number]) BRIEF ASSESSMENT. DX: K08.409 Partial Loss of Teeth, unspecified Cause, unspecified Class Periodontal Examination: Periodontal Charting (This is textual display of [...] -~- -~- -~- -~- -~- -~- F [facility] 000 001 031 000 - - - -~- -~- -~- -~- -~- -~- -~- -~- -~- -~- -~- -~- -~- -~- -~- -~- TOOTH 32 31 30 29 28 27 26 25 24 23 22 21 20 19 18 17 - - - -~- -~- -~- -~- -~- -~- -~- -~- -~- -~- -~- -~- -~- -~- -~- -~- F [facility] 020 020 010 130 000 000 010 023 F PD 222 313 313 312 212 213 313 313 322 L PD 222 223 312 212 313 313 313 323 312 L FGM 0 010 010 020 010 010 000 000 035 - - - - - - - - - - - - - - - - - - - - - - - - - - - - - - - - - - - AGUIRRE: B=Bleeding b=Delayed Bleeding S=Suppuration *=Pocket/MGJ > 9 +=FGM coronal to CEJ (Periodontal chart may be a composite of entries from different dates) Dental Alerts: Antibiotic Premed w/ 4 500 mg. capsules amoxicillin one hour prior to dental appt. due to right knee replacement. - - - - - - - - - - - - - - - - - - - - - - - - - - - - - - Patient Presents for Scheduled Dental Visit. Reviewed Symptoms - no signs of illness - Pt presents with dental pain 0/10 Medication reconciliation: Patient Medications currently listed in CPRS - I performed medication reconciliation within the scope of my practice. All medications related to Dentistry are up to date. Reviewed current findings, perio charting, complted implant risk assessment with overall finding of 12- moderate risk I atttribute the moderate risk to the presence of implant exposure #12, slightly at #5, narrow implants rather than robust implants, and borderline medical complexities. Pt unhappy with the palatal coverage she currently has, as well as the stability of current denture Back implants do not engage into denture made by Dr Hunt. Pt left denture made by Dr. Maloney in clinic a whie ago, never engaged with implants. Current Denture falls out while talking and eating. implants at 5+12 reduced keratin border adjacent to frenum, no keratinized collar #12 implant. No implant mobility. AP rock, weak retention on #5+12. With denture seated, contact is at 20, 21,28 -no contact 22,27- reverse [place] horizontal plane, starting at #4. plan - refit current denture to locators, will need to excelsior picker housings for refit, ensure palatal support then reassess function canc consider opening up palate at that time once stable can reassess for new overdenture if additional implants 7 10 deemed appropraite and consider overdenture with metal base. at this time due to bone loss of existing implants a fixed prosthesis is not recommended. 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
--- OUTSIDE RECORDS SUMMARY | 2024-08-04 17:05 | XMS_ITS ---
Author Name [place] Address [address] [place] [address] Care Team Providers Care Auto Roller Name Role Phone CADEN FELIZ Primary Care [...] PLAN I Aug 19, 2019 PLAN I [id number] [phone] MEEK,GR ICEL PATIENT [employer] OPTIONS MEDICARE SUPPLEMEN MARCIA PLANM Y Aug 19, 2019 PLANMY [id number] MEEK,GR ICEL PATIENT [employer] OPTIONS MEDICARE SUPPLEMEN MARCIA AARP MEDIC ARE SUPPL Aug 19, 2019 PLAN MY [id number] MEEK,GR ICEL PATIENT AARP INS MEDICARE SUPPLEMEN MARCIA PLANM Y Aug 19, 2019 PLANMY [id number] [phone] MEEK,GR ICEL PATIENT AARP MED SUPP MEDICARE SUPPLEMEN MARCIA Jul 19, 2010 PLANMY [id number] MEEK,GR ICEL PATIENT MEDICARE (WNR) MEDICARE () PART B Aug 19, 2008 PART B [id number] MEEK,GR ICEL PATIENT MEDICARE (WNR) MEDICARE () PART B Aug 19, 2008 PART B [id number] MEEK,GR ICEL PATIENT MEDICARE (WNR) MEDICARE () PART B Aug 19, 2008 PART B [id number] MEEK,GR ICEL PATIENT MEDICARE (WNR) MEDICARE () PART B Aug 19, 2008 PART B [id number] MEEK,GR ICEL PATIENT MEDICARE (WNR) MEDICARE () PART B Aug 19, 2008 PART B [id number] MEEK,GR ICEL PATIENT MEDICARE (WNR) MEDICARE () PART B Aug 19, 2008 PART B [id number] [phone] MEEK,GR ICEL PATIENT MEDICARE (WNR) MEDICARE () PART B Aug 19, 2008 PART B [id number] MEEK,GR ICEL PATIENT MEDICARE (WNR) MEDICARE () PART A December 18, 2003 PART A [id number] [phone] MEEK,GR ICEL PATIENT MEDICARE (WNR) MEDICARE () PART A December 18, 2003 PART A [id number] [phone] MEEK,GR ICEL PATIENT MEDICARE (WNR) MEDICARE () PART A December 18, 2003 PART A [id number] [id number] MEEK,GR ICEL PATIENT MEDICARE (WNR) MEDICARE () PART A December 18, 2003 PART A [id number] [phone] MEEK,GR ICEL PATIENT MEDICARE (WNR) MEDICARE () PART A December 18, 2003 PART A [id number] [phone] MEEK,GR ICEL PATIENT MEDICARE (WNR) MEDICARE () PART A December 18, 2003 PART A [id number] SABINE MEEK PATIENT MEDICARE (WNR) MEDICARE (M) PART A December 18, 2003 PART A [id number] SABINE MEEK PATIENT Selected Encounter This section includes the information on record at [place] for the Encounter. Date/Time Encounter Type Encounter Description Reason Provider Source Jan 20, 2024 01:00 PM [facility] ICD-10-CM F43.12 Post-traumati c stress disorder, chronic MARY GIBBS Encounter Template Text not used by [place] Assessments - Encounter Diagnoses This section includes the primary and secondary diagnoses documented for the Encounter. Date/Time Primary/Secondary Diagnosis Diagnosis Name Provider Source Jan 20, 2024 04:01 PM PRIMARY Post-traumatic stress disorder, chronic DANIELSONMARCIAYANETTana S [place] [facility] [place] [facility] Plan [...] 22, 2024 03:00 PM AMBULATORY - NONE [place] [facility] [place] [facility] Jan 27, 2024 01:00 PM AMBULATORY - PSYCHIATRY [place] [facility] [place] [facility] Feb 03, 2024 01:00 PM AMBULATORY - PSYCHIATRY [place] [facility] [place] [facility] Feb 10, 2024 01:00 PM AMBULATORY - PSYCHIATRY [place] [facility] [place] [facility] Feb 10, 2024 02:00 PM AMBULATORY - NONE [facility] [place] [facility] Feb 17, 2024 12:30 PM AMBULATORY - NONE [facility] [place] [facility] Feb 17, 2024 01:00 PM AMBULATORY - PSYCHIATRY [place] [facility] [place] [facility] Feb 21, 2024 08:30 AM AMBULATORY - MEDICINE [place] [facility] [place] [facility] Feb 24, 2024 01:00 PM AMBULATORY - PSYCHIATRY [facility] [place] [facility] Feb 28, 2024 11:30 AM AMBULATORY - MEDICINE [facility] [place] [facility] Mar 02, 2024 01:00 PM AMBULATORY - PSYCHIATRY [facility] [place] [facility] Mar 06, 2024 09:30 AM AMBULATORY - MEDICINE [facility] [place] [facility] Mar 09, 2024 01:00 PM AMBULATORY - PSYCHIATRY [facility] [place] [facility] Mar 11, 2024 03:15 PM AMBULATORY - MEDICINE [place] [facility] [place] [facility] Mar 18, 2024 08:30 AM AMBULATORY - MEDICINE [facility] [place] [facility] Mar 23, 2024 01:00 PM AMBULATORY - PSYCHIATRY [place] [facility] [place] [facility] Mar 30, 2024 01:00 PM AMBULATORY - PSYCHIATRY [place] [facility] [place] [facility] Apr 06, 2024 12:30 PM AMBULATORY - MEDICINE [place] [facility] [place] [facility] Apr 06, 2024 01:00 PM AMBULATORY - MEDICINE [place] [facility] [place] [facility] Apr 23, 2024 08:40 AM AMBULATORY - PSYCHIATRY [place] [facility] [place] [facility] Active, Pending, and Scheduled Orders This section includes a listing of several types of active, pending, and scheduled orders, including clinic medications orders, diagnostic test orders, procedure orders and consult orders; where the start date of the order is 45 days before the date of the Encounter or 45 days after the date of theEncounter. The data comes from all [place] treatment facilities. Test Date/Time Test Type Test Details Facility Name Feb 28, 2024 12:49 PM Consult Order COMMUNITY CARE-CARDIOLOGY Cons Sanitation Laborer's Choice [place] [facility] [place] [facility] Social History: Smoking Status [...] VA-TOBACCO FORMER USER [place] [facility] [place] [facility] Tobacco Use History This section includes a history of the smoking, or tobacco-related health factors, that were collected on or before the date of the Encounter. The data comes from the [place] facility where the Encounter took place. Date/Time Smoking Status/Tobac co Use Comment Facility Feb 08, 2023 10:00 AM VA-TOBACCO QUIT 15 YRS OR MORE [place] [facility] [place] [facility] Mar 06, 2022 02:30 PM VA-TOBACCO FORMER USER [facility] [place] [facility] Mar 06, 2022 02:30 PM VA-TOBACCO QUIT 15 YRS OR MORE [place] [facility] [place] [facility] Apr 04, 2021 10:28 AM VA-TOBACCO NEVER USED [place] [facility] [place] [facility] May 03, 2020 02:00 PM VA-TOBACCO NEVER USED [place] [facility] [place] [facility] Feb 25, 2019 08:14 AM VA-TOBACCO FORMER USER [place] [facility] [place] [facility] Feb 25, 2019 08:14 AM VA-TOBACCO QUIT 5 TO < 15 YRS [place] [facility] [place] [facility] [...] 7 YEARS AGO [facility] [place] [facility] January 02, 2014 01:30 AM QUIT TOBACCO USE IN PAST YEAR [place] [facility] [place] [facility] Jun 18, 2013 09:00 AM CURRENT SMOKER 6 cigarettes qd [facility] [place] [facility] Jun 18, 2013 09:00 AM V1-PT DECLINES TOBACCO CESSATION MEDS [facility] [place] [facility] Jun 18, 2013 09:00 AM V1-PT NOT INTERESTED IN QUIT TOBACCO USE [facility] [place] [facility] December 24, 2012 10:51 AM V1-PT DECLINES REF TO TOBACCO CESS PR[facility] [place] [facility] December 24, 2012 10:51 AM V1-PT DECLINES TOBACCO CESSATION MEDS [facility] [place] [facility] December 24, 2012 10:51 AM V1-PT THINKING ABOUT QUIT TOBACCO USE [facility] Jul 15, 2012 10:19 AM QUIT TOBACCO USE IN PAST YEAR [facility] Jan 25, 2012 05:02 PM QUIT TOBACCO USE IN PAST YEAR [facility] Sep 28, 2011 10:09 AM CURRENT SMOKER 5 cigarettes a day [facility] Jun 15, 2011 02:23 PM V1-PT DECLINES REF TO TOBACCO CESS PRGM [facility] Jun 15, 2011 02:23 PM V1-PT READY TO QUIT TOBACCO USE [facility] Apr 13, 2011 10:31 AM V1-PT DECLINES REF TO [facility]BACCO [facility]ESS [facility] Apr 13, 2011 10:31 AM V1-PT RECEIVES TOBACCO CESS MEDS OUTSIDE [facility] Apr 13, 2011 10:31 AM V1-PT THINKING ABOUT QUIT TOBACCO USE [facility] [place] [facility] Oct 16, 2010 08:52 AM QUIT TOBACCO USE IN PAST YEAR [facility] [place] [facility] May 12, 2010 02:08 PM V1-PT DECLINES REF TO TOBACCO CESS PRGM [facility] May 12, 2010 02:08 PM V1-PT READY TO QUIT TOBACCO USE [facility]RN [facility] May 12, 2010 12:45 PM CURRENT SMOKER 3 cigarettes [facility] Encounter Notes: All associated encounter notes This section contains the clinical notes associated to the Encounter. Date/Time Encounter Note(s) Provider Source Jan 20, 2024 01:00 PM PSYCHIATRY GROUP COUNSELING NOTE: LOCAL TITLE: PSYCHOLOGY GROUP NOTE STANDARD TITLE: PSYCHIATRY GROUP COUNSELING NOTE DATE OF NOTE: JAN 20, 2024@13:00 ENTRY DATE: JAN 20, 2024@15:50:54 AUTHOR: ALICIA DANIELSON COSIGNER: LO GIBBS URGENCY: STATUS: COMPLETED [facility] Mindful Compassion Group Therapy Note (F2F) identified with 2 identifiers: [X] Patient Name [X] Visual recognition ~~~ Reed Polisher: Alicia Danielson, MS, and Lo Gibbs, PhD PROCEDURE: 60-minute interactive hybrid VVC/F2F group therapy session Problem: Difficulty being present in the moment and fostering compassion Objective: Explored and practice mindful compassion Number of Veterans Present in Group: 8 GROUP CONTENT: Group members engaged in a mindful listening practice involving mindful self- compassion and a poem by Logan Frances. Group members checked in by sharing a way in which they were kind to themself in the past week. Group members participated in a self-compassion practice involving speaking to oneself as one would speak to another in a similar situation and spoke about this experience. Group members committed to engage in mindful awareness and to practice metta loving kindness between now and next group. PROGRESS: Monitor arrived on time and was an active and appropriate participant. Monitor participated in the mindfulness practices and group discussions. Mental Status was not formally assessed due to the nature of the encounter. maintained appropriate eye contact and was alert. Monitor spoke clearly and coherently. Monitor's thoughts were linear and related. Monitor's affect was congruent to content and appropriate in range. No clinical signs of intoxication, withdrawal, psychosis, or cognitive impairment were observed. No evidence of suicidal or homicidal ideation. There was no evidence of AH/VH or delusions. was future oriented. DSM-V DIAGNOSTIC IMPRESSIONS(per chart): PTSD, Chronic PLAN: will continue to participate in the Mindful Compassion Group on Mondays at 1pm. This case is being supervised by Lo Gibbs, Ph.D., full-time Staff Psychologist. Diagnosis, treatment plan, and response to care are reviewed in standard 1-hour or more weekly individual and group supervision meetings. /jeana/ ALICIA DAINELSON M.S.// CIVIL ENGINEERING PROFESSIONAL// Signed: 01/20/2024 16:01 /jeana/ Lo Gibbs, PhD Clinical Psychologist, [facility] Cosigned: 01/20/2024 16:20 ALICIA DANIELSON [place] [facility]
--- OUTSIDE RECORDS SUMMARY | 2024-08-04 17:05 | XMS_ITS | Encounter Summary ---
Author Name [facility] [place] Address [address] [place] [address] Care Team Providers Care Wholesale Account Manager Name Role Phone CADEN FELIZ Primary [...] PLAN I Aug 19, 2019 PLAN I [id number] MEEK,GR ICEL PATIENT [employer] OPTIONS MEDICARE SUPPLEMEN MARCIA PLANM Y Aug 19, 2019 PLANMY [id number] MEEK,GR ICEL PATIENT [employer] OPTIONS MEDICARE SUPPLEMEN MARCIA AARP MEDIC ARE SUPPL Aug 19, 2019 PLAN MY [id number] MEEK,GR ICEL PATIENT AARP INS MEDICARE SUPPLEMEN MARCIA PLANM Y Aug 19, 2019 PLANMY [id number] [phone] MEEK,GR ICEL PATIENT AARP MED SUPP MEDICARE SUPPLEMEN MARCIA Jul 19, 2010 PLANMY [id number] MEEK,GR ICEL PATIENT MEDICARE (WNR) MEDICARE () PART B Aug 19, 2008 PART B [id number] MEEK,GR ICEL PATIENT MEDICARE (WNR) MEDICARE () PART B Aug 19, 2008 PART B [id number] MEEK,GR ICEL PATIENT MEDICARE (WNR) MEDICARE () PART B Aug 19, 2008 PART B [id number] [phone] MEEK,GR ICEL PATIENT MEDICARE (WNR) MEDICARE () PART B Aug 19, 2008 PART B [id number] MEEK,GR ICEL PATIENT MEDICARE (WNR) MEDICARE () PART B Aug 19, 2008 PART B [id number] [phone] MEEK,GR ICEL PATIENT MEDICARE (WNR) MEDICARE () PART B Aug 19, 2008 PART B [id number] MEEK,GR ICEL PATIENT MEDICARE (WNR) MEDICARE () PART B Aug 19, 2008 PART B [id number] [phone] MEEK,GR ICEL PATIENT MEDICARE (WNR) MEDICARE () PART A December 18, 2003 PART A [id number] MEEK,GR ICEL PATIENT MEDICARE (WNR) MEDICARE () PART A December 18, 2003 PART A [id number] [phone] MEEK,GR ICEL PATIENT MEDICARE (WNR) MEDICARE () PART A December 18, 2003 PART A [id number] [phone] MEEK,GR ICEL PATIENT MEDICARE (WNR) MEDICARE () PART A December 18, 2003 PART A [id number] [phone] MEEK,GR ICEL PATIENT MEDICARE (WNR) MEDICARE () PART A December 18, 2003 PART A [id number] [phone] MEEK,GR ICEL PATIENT MEDICARE (WNR) MEDICARE () PART A December 18, 2003 PART A [id number] [phone] SABINE MEEK PATIENT MEDICARE (WNR) MEDICARE (M) PART A December 18, 2003 PART A [id number] SABINE MEEK PATIENT Selected Encounter This section includes the information on record at [place] for the Encounter. Date/Time Encounter Type Encounter Description Reason Pro vider Source January 15, 2024 08:26 AM Outpatient Encounter DENTAL IHE Encounter Template Text not used by [place] Plan of Treatment: Future Appointments (+ 6 months) and Future Tests (+/- 45 days) The Plan of Treatment section includes future care activities for the patient from all [place] treatmentfacilities. This section includes future appointments and future orders which are active, pending or scheduled. Future Appointments This section includes appointments that were scheduled to occur 6 months from the date of the Encounter, up to a maximum of 20 appointments. The data comes from all [place] treatment facilities. Appointment Date/Time Appointment Type Appointme nt Facility Name January 16, 2024 10:30 AM AMBULATORY - NONE [facility] [place] [facility] Jan 20, 2024 01:00 PM AMBULATORY - PSYCHIATRY [facility] [place] [facility] Jan 22, 2024 03:00 PM AMBULATORY - NONE [facility] [place] [facility] Jan 27, 2024 01:00 PM AMBULATORY - PSYCHIATRY [facility] [place] [facility] Feb 03, 2024 01:00 PM AMBULATORY - PSYCHIATRY [facility] [place] [facility] Feb 10, 2024 01:00 PM AMBULATORY - PSYCHIATRY [facility] [place] [facility] Feb 10, 2024 02:00 PM AMBULATORY - NONE [facility] [place] [facility] Feb 17, 2024 12:30 PM AMBULATORY - NONE [facility] [place] [facility] Feb 17, 2024 01:00 PM AMBULATORY - PSYCHIATRY [facility] [place] [facility] Feb 21, 2024 08:30 AM AMBULATORY - MEDICINE [place] [facility] [place] [facility] Feb 24, 2024 01:00 PM AMBULATORY - PSYCHIATRY [facility] [place] [facility] Feb 28, 2024 11:30 AM AMBULATORY - MEDICINE [place] [facility] [place] [place] [facility] Mar 02, 2024 01:00 PM AMBULATORY - PSYCHIATRY [place] [facility] [place] [facility] Mar 06, 2024 09:30 AM AMBULATORY - MEDICINE [place] [facility] [place] [facility] Mar 09, 2024 01:00 PM AMBULATORY - PSYCHIATRY [place] [facility] [place] [facility] Mar 11, 2024 03:15 PM AMBULATORY - MEDICINE [place] [facility] [place] [facility] Mar 18, 2024 08:30 AM AMBULATORY - MEDICINE [place] [facility] [place] [facility] Mar 23, 2024 01:00 PM AMBULATORY - PSYCHIATRY [place] [facility] [place] [facility] Mar 30, 2024 01:00 PM AMBUL[facility] - [facility] Apr 06, 2024 12:30 PM AMBULATORY - MEDICINE [facility] Active, Pending, and Scheduled Orders This section includes a listing of several types of active, pending, and scheduled orders, including clinic medications orders, diagnostic test orders, procedure orders and consult orders; where the start date of the order is 45 days before the date of the Encounter or 45 days after the date of theEncounter. The data comes from all [place] treatment facilities. Test Date/Time Test Type Test Details Facility Name Feb 28, 2024 12:49 PM Consult Order COMMUNITY CARE-CARDIOLOGY Cons Windows 7 Deployment Lead's Choice [employer] Social History: Smoking Status (Most current) and Tobacco Use (All prior to encounter date) This section includes the most current, and the historical, smoking and tobacco- related health factors from the [place] facility where the Encounter took place. Current Smoking Status This section includes the most current smoking, or tobacco-related health factor, from the [place] facility where the Encounter took place. Date/Time Current Smoking Status Comment [facility] it Feb 08, 2023 10:00 AM VA-TOBACCO FORMER USER [employer] [facility] Tobacco Use History This section includes a history of the smoking, or tobacco-related health factors, that were collected on or before the date of the Encounter. The data comes from the [place] facility where the Encounter took place. Date/Time Smoking Status/Tobac co Use Comment Facility Feb 08, 2023 10:00 AM [place]-TOBACCO QUIT 15 YRS OR MORE [facility] [place] [facility] Mar 06, 2022 02:30 PM VA-TOBACCO FORMER USER [facility] [place] [facility] Mar 06, 2022 02:30 PM VA-TOBACCO QUIT 15 YRS OR MORE [place] [facility] [place] [facility] Apr 04, 2021 10:28 AM VA-TOBACCO NEVER USED [place] [facility] [place] [facility] May 03, 2020 02:00 PM VA-TOBACCO NEVER USED [facility] [place] [facility] Feb 25, 2019 08:14 AM VA-TOBACCO FORMER USER [facility] [place] [facility] Feb 25, 2019 08:14 AM VA-TOBACCO QUIT 5 TO < 15 YRS [facility] [place] [facility] Apr 04, 2018 10:41 AM QUIT TOBACCO USE 1-7 YEARS AGO [facility] [place] [facility] Oct 28, 2017 10:18 AM QUIT TOBACCO USE 1-7 YEARS AGO [facility] [place] [facility] Jan 22, 2017 01:08 PM QUIT TOBACCO USE 1-7 YEARS AGO [facility] [place] [facility] Jul 18, 2016 01:34 PM QUIT TOBACCO USE 1-7 YEARS AGO [facility] [place] [facility] January 10, 2016 10:32 AM QUIT TOBACCO USE 1-7 YEARS AGO [facility] [place] [facility] Oct 13, 2015 11:05 AM QUIT TOBACCO USE 1-7 YEARS AGO [facility] [place] [facility] Oct 19, 2014 01:53 PM QUIT TOBACCO USE > 7 YEARS AGO [facility] [place] [facility] January 02, 2014 01:30 AM QUIT TOBACCO USE IN PAST YEAR [facility] [place] [facility] Jun 18, 2013 09:00 AM CURRENT SMOKER 6 cigarettes qd [facility] [place] [facility] Jun 18, 2013 09:00 AM V1-PT DECLINES TOBACCO CESSATION MEDS [facility] [place] [facility] Jun 18, 2013 09:00 AM V1-PT NOT INTERESTED IN QUIT TOBACCO USE [facility] [place] [facility] December 24, 2012 10:51 AM V1-PT DECLINES REF TO TOBACCO CESS PRGM [place] [facility] [facility] December 24, 2012 10:51 AM V1-PT DECLINES TOBACCO CESSATION MEDS [facility] December 24, 2012 10:51 AM V1-PT THINKING ABOUT QUIT TOBACCO USE [facility] Jul 15, 2012 10:19 AM QUIT TOBACCO USE IN PAST YEAR [facility] Jan 25, 2012 05:02 PM QUIT TOBACCO USE IN PAST YEAR [facility] Sep 28, 2011 10:09 AM CURRENT SMOKER 5 cigarettes a day [facility] Jun 15, 2011 02:23 PM V1-PT DECLINES REF TO TOBACCO CESS PRGM [facility] Jun 15, 2011 02:23 PM V1-PT READY TO QUIT TOBACCO USE [facility] Apr 13, 2011 10:31 AM V1-PT DECLINES [...] cigarettes a day [facility] Encounter Notes: All associated encounter notes This section contains the clinical notes associated to the Encounter. Date/Time Encounter Note(s) Provider Source January 15, 2024 08:26 AM DENTISTRY TELEPHON E ENCOUNTER NOTE: LOCAL TITLE: TELEPHONE NOTE/DENTAL STANDARD TITLE: DENTISTRY TELEPHONE ENCOUNTER NOTE DATE OF NOTE: JANUARY 15, 2024@08:26 ENTRY DATE: JANUARY 15, 2024@08:27:01 AUTHOR: SHANTA ANTOINE EXP COSIGNER: URGENCY: STATUS: COMPLETED Spoke with pt to confirm dental appointment on 01/16/2024 at 10:30 am. 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
--- OUTSIDE RECORDS SUMMARY | 2024-08-04 17:05 | XMS_ITS | Encounter Summary ---
Author Name [facility] [place] Address [address] [place] [address] Care Team Providers Care Haunted History Tour Guide Name Role Phone CADEN FELIZ Primary Care [...] PLAN I Aug 19, 2019 PLAN I [id number] MEEK,SABINE ICEL PATIENT [employer] OPT[employer] MEDICARE SUPPLEMEN MARCIA PLANM Y Aug 19, 2019 PLANMY [id number] MEEK,GR ICEL PATIENT [employer] OPT[employer] MEDICARE SUPPLEMEN MARCIA AARP MEDIC ARE SUPPL Aug 19, 2019 PLAN MY [id number] [phone] MEEK,SABINE ICEL PATIENT A[employer] INS MEDICARE SUPPLEMEN MARCIA PLANM Y Aug 19, 2019 PLANMY [id number] MEEK,GR ICEL PATIENT AARP MED SUPP MEDICARE SUPPLEMEN MARCIA Jul 19, 2010 PLANMY [id number] MEEK,GR ICEL PATIENT MEDICARE (WNR) MEDICARE () PART B Aug 19, 2008 PART B [id number] MEEK,GR ICEL PATIENT MEDICARE (WNR) MEDICARE () PART B Aug 19, 2008 PART B [id number] MEEK,GR ICEL PATIENT MEDICARE (WNR) MEDICARE () PART B Aug 19, 2008 PART B [id number] MEEK,GR ICEL PATIENT MEDICARE (WNR) MEDICARE () PART B Aug 19, 2008 PART B [id number] MEEK,GR ICEL PATIENT MEDICARE (WNR) MEDICARE () PART B Aug 19, 2008 PART B [id number] [phone] MEEK,GR ICEL PATIENT MEDICARE (WNR) MEDICARE () PART B Aug 19, 2008 PART B [id number] [phone] MEEK,GR ICEL PATIENT MEDICARE (WNR) MEDICARE () PART B Aug 19, 2008 PART B [id number] MEEK,GR ICEL PATIENT MEDICARE (WNR) MEDICARE () PART A December 18, 2003 PART A [id number] MEEK,GR ICEL PATIENT MEDICARE (WNR) MEDICARE () PART A December 18, 2003 PART A [id number] [phone] MEEK,GR ICEL PATIENT MEDICARE (WNR) MEDICARE () PART A December 18, 2003 PART A [id number] MEEK,GR ICEL PATIENT MEDICARE (WNR) MEDICARE () PART A December 18, 2003 PART A [id number] MEEK,GR ICEL PATIENT MEDICARE (WNR) MEDICARE () PART A December 18, 2003 PART A [id number] MEEK,GR ICEL PATIENT MEDICARE (WNR) MEDICARE () PART A December 18, 2003 PART A [id number] SABINE MEEK PATIENT MEDICARE (WNR) MEDICARE (M) PART A December 18, 2003 PART A [id number] SABINE MEEK PATIENT Selected Encounter This section includes the information on record at [place] for the Encounter. Date/Time Encounter Type Encounter Description Reason Pro vider Source January 10, 2024 09:41 AM Outpatient Encounter PRIMARY CARE/MEDICINE IHE Encounter Template Text not used by [place] Plan of Treatment: Future Appointments (+ 6 months) and Future Tests (+/- 45 days) The Plan of Treatment section includes future care activities for the patient from all [place] treatmentfacilities. This section includes future appointments and [...] 14, 2024 09:30 AM AMBULATORY - [place]ICINE [place] [facility] [place] [facility] January 16, 2024 10:30 AM AMBULATORY - NONE [facility] [place] [facility] Jan 20, 2024 01:00 PM AMBULATORY - PSYCHIATRY [facility] [place] [facility] Jan 22, 2024 03:00 PM AMBULATORY - NONE [facility] [place] [facility] Jan 27, 2024 01:00 PM AMBULATORY - PSYCHIATRY [facility] [place] [facility] Feb 03, 2024 01:00 PM AMBULATORY - PS[facility]CHIATRY [facility] [place] [facility] Feb 10, 2024 01:00 PM AMBULATORY - PS[facility]CHIATRY [facility] [place] [facility] Feb 10, 2024 02:00 PM AMBULATORY - NONE [facility] [place] [facility] Feb 17, 2024 12:30 PM AMBULATORY - NONE [facility] [place] [facility] Feb 17, 2024 01:00 PM AMBULATORY - PS[facility]CHIATRY [facility] [place] [facility] Feb 21, 2024 08:30 AM AMBULATORY [facility] MEDICINE [facility] [place] [facility] Feb 24, 2024 01:00 PM AMBULATORY - PS[facility]CHIATRY [facility] [place] [facility] Feb 28, 2024 11:30 AM AMBULATORY [facility] MEDICINE [facility] [place] [facility] Mar 02, 2024 01:00 PM AMBULATORY - PSYCHIATRY [facility] [place] [facility] Mar 06, 2024 09:30 AM AMBULATORY [facility] MEDICINE [facility] [place] [facility] Mar 09, 2024 01:00 PM AMBULATORY - PS[facility]CHIATRY [facility] [place] [facility] Mar 11, 2024 03:15 PM AMBULATORY - MEDICINE [facility] [place] [facility] Mar 18, 2024 08:30 AM AMBULATORY - MEDICINE [facility] [place] [facility] Mar 23, 2024 01:00 PM AMBULATORY - PS[facility]CHIATRY [facility] [place] [facility] Mar 30, 2024 01:00 PM AMBULATORY [place]ATRY [place] [facility] [place] [facility] Social History: Smoking Status (Most [...] Date/Time Current Smoking Status Comment [facility] Feb 08, 2023 10:00 AM VA-TOBACCO FORMER USER [place] [facility] [place] [facility] Tobacco Use History This section includes a history of the smoking, or tobacco-related health factors, that were collected on or before the date of the Encounter. The data comes from the [place] facility where the Encounter took place. Date/Time Smoking Status/Tobac co Use Comment Facility Feb 08, 2023 10:00 AM VA-TOBACCO QUIT 15 YRS OR MORE [facility] [place] [facility] Mar 06, 2022 02:30 PM VA-TOBACCO FORMER USER [facility] [place] [facility] Mar 06, 2022 02:30 PM VA-TOBACCO QUIT 15 YRS OR MORE [facility] [place] [facility] Apr 04, 2021 10:28 AM VA-TOBACCO NEVER USED [facility] [place] [facility] May 03, 2020 02:00 PM VA-TOBACCO NEVER USED [facility] [place] [facility] Feb 25, 2019 08:14 AM VA-TOBACCO FORMER USER [place] [facility] [place] [facility] Feb 25, 2019 08:14 AM VA-TOBACCO QUIT 5 TO < 15 YRS [place] [facility] [place] [facility] Apr 04, 2018 10:41 AM QUIT TOBACCO USE 1-7 YEARS AGO [place] [facility] [place] [facility] Oct 28, 2017 10:18 AM QUIT TOBACCO USE 1-7 YEARS AGO [place] [facility] [place] [facility] Jan 22, 2017 01:08 PM QUIT TOBACCO USE 1-7 YEARS AGO [place] [facility] [place] [facility] Jul 18, 2016 01:34 PM QUIT TOBACCO USE 1-7 YEARS AGO [place] [facility] [place] [facility] January 10, 2016 10:32 AM QUIT TOBACCO USE 1-7 YEARS AGO [place] [facility] [place] [facility] Oct 13, 2015 11:05 AM QUIT [facility]BAC[facility] [place] [facility] Oct 19, 2014 01:53 PM QUIT TOBACCO USE > 7 YEARS AGO [place] [facility] [place] [facility] January 02, 2014 01:30 AM QUIT TOBACCO USE IN PAST YEAR [facility] [place] [facility] Jun 18, 2013 09:00 AM CURRENT SMOKER 6 cigarettes qd [place] [facility] [place] [facility] Jun 18, 2013 09:00 AM V1-PT DECLINES TOBACCO CESSATION [facility] [place] [facility] Jun 18, 2013 09:00 AM V1-PT NOT INTERESTED IN QUIT TOBACCO USE [place] [facility] [place] [facility] December 24, 2012 10:51 AM V1-PT DECLINES REF TO TOBACCO CESS PRGM [place] [facility] [place] [facility] December 24, 2012 10:51 AM V1-PT DECLINES TOBACCO CESSATION MEDS [place] [facility] [place] [facility] December 24, 2012 10:51 AM V1-PT THINKING ABOUT QUIT TOBACCO USE [place] [facility] [place] [facility] Jul 15, 2012 10:19 AM QUIT TOBACCO USE IN PAST YEAR [place] [facility] [place] [facility] Jan 25, 2012 05:02 PM QUIT TOBACCO USE IN PAST YEAR [place] [facility] [place] [facility] Sep 28, 2011 10:09 AM CURRENT SMOKER 5 cigarettes a day [facility] Jun 15, 2011 02:23 PM V1-PT DECLINES REF TO TOBACCO CESS PRGM [facility] Jun 15, 2011 02:23 PM V1-PT READY TO QUIT TOBACCO USE [facility] Apr 13, 2011 10:31 AM V1-PT DECLINES REF TO TOBACCO CESS PRGM [facility] Apr 13, 2011 10:31 AM V1-PT RECEIVES TOBACCO CESS MEDS OUTSIDE [facility] Apr 13, 2011 10:31 AM V1-PT THINKING ABOUT QUIT TOBACCO USE [facility] Oct 16, 2010 08:52 AM QUIT TOBACCO USE IN PAST YEAR [facility] May 12, 2010 02:08 PM V1-PT DECLINES REF TO TOBACCO CESS PRGM [facility] May 12, 2010 02:08 PM V1-PT READY TO QUIT TOBACCO USE [facility] May 12, 2010 12:45 PM CURRENT SMOKER 3 cigarettes a day [facility] Encounter Notes: All associated encounter notes This section contains the clinical notes associated to the Encounter. Date/Time Encounter Note(s) Provider Source January 10, 2024 09:41 AM NURSING NOTE: LOCAL TITLE: NURSING NOTE STANDARD TITLE: NURSING NOTE DATE OF NOTE: JANUARY 10, 2024@09:41 ENTRY DATE: JANUARY 10, 2024@09:41:22 AUTHOR: KIET FRANCIS EXP COSIGNER: URGENCY: STATUS: COMPLETED Received a referral request from [facility], Pulmonology, Dr.Mohammad Titus, dx- shortness of breath, start date of 01/06/24 for 12 visits. A new [facility] Pulmonary consult placed and held for provider signature /jeana/ KIET FRANCIS, MSN, RN, CNL PRIMARY CARE TEAM NURSE Signed: 01/10/2024 09:43 IKET FRANCIS [facility]
--- OUTSIDE RECORDS SUMMARY | 2024-08-04 17:06 | XMS_ITS | Encounter Summary ---
Author Name [facility] [place] [facility] [place] [facility] [place] Address [address] [place] [address] Care Team Providers Care Manager Crisis Name Role Phone CADEN FELIZ Primary Care [...] PLAN I Aug 19, 2019 PLAN I [id number] MEEK,SABINE ICEL PATIENT [employer] OPTIONS MEDICARE SUPPLEMEN MARCIA PLANM Y Aug 19, 2019 PLANMY [id number] MEEK,GR ICEL PATIENT [employer] OPT[employer] MEDICARE SUPPLEMEN MARCIA A[employer] MEDIC ARE SUPPL Aug 19, 2019 PLAN MY [id number] [phone] MEEK,GR ICEL PATIENT A[employer] INS MEDICARE SUPPLEMEN MARCIA PLANM Y Aug 19, 2019 PLANMY [id number] MEEK,GR ICEL PATIENT [employer] MED SUPP MEDICARE SUPPLEMEN MARCIA Jul 19, 2010 PLANMY [id number] [phone] MEEK,GR ICEL PATIENT MEDICARE (WNR) MEDICARE () PART B Aug 19, 2008 PART B [id number] MEEK,GR ICEL PATIENT MEDICARE (WNR) MEDICARE () PART B Aug 19, 2008 PART B [id number] MEEK,GR ICEL PATIENT MEDICARE (WNR) MEDICARE () PART B Aug 19, 2008 PART B [id number] [phone] MEEK,GR ICEL PATIENT MEDICARE (WNR) MEDICARE () PART B Aug 19, 2008 PART B [id number] [phone] MEEK,GR ICEL PATIENT MEDICARE (WNR) MEDICARE () PART B Aug 19, 2008 PART B [id number] [phone] MEEK,GR ICEL PATIENT MEDICARE (WNR) MEDICARE () PART B Aug 19, 2008 PART B [id number] [phone] MEEK,GR ICEL PATIENT MEDICARE (WNR) MEDICARE () PART B Aug 19, 2008 PART B [id number] [phone] MEEK,GR ICEL PATIENT MEDICARE (WNR) MEDICARE () PART A December 18, 2003 PART A [id number] MEEK,GR ICEL PATIENT MEDICARE (WNR) MEDICARE () PART A December 18, 2003 PART A [id number] MEEK,GR ICEL PATIENT MEDICARE (WNR) MEDICARE () PART A December 18, 2003 PART A [id number] [phone] MEEK,GR ICEL PATIENT MEDICARE (WNR) MEDICARE () PART A December 18, 2003 PART A [id number] MEEK,GR ICEL PATIENT MEDICARE (WNR) MEDICARE () PART A December 18, 2003 PART A [id number] MEEK,GR ICEL PATIENT MEDICARE (WNR) MEDICARE () PART A December 18, 2003 PART A [id number] SABINE MEEK PATIENT MEDICARE (WNR) MEDICARE (M) PART A December 18, 2003 PART A [id number] [phone] SABINE MEEK PATIENT Selected Encounter This section includes the information on record at [place] for the Encounter. Date/Time Encounter Type Encounter Description Reason Pro vider Source Dec 09, 2023 12:00 PM Outpatient Encounter COMMUNITY CARE CONSULT IHE Encounter Template Text not used by [place] Plan of Treatment: Future Appointments (+ 6 months) and Future Tests (+/- 45 days) The Plan of Treatment section includes future care activities for the patient from all [place] treatmentfacilities. This section includes future appointments and [...] AMBULATORY - NONE [facility] [place] [facility] Dec 16, 2023 01:00 PM AMBULATORY - PSYCHIATRY [facility] [place] [facility] December 23, 2023 01:00 PM AMBULATORY - PSYCHIATRY [facility] [place] [facility] December 31, 2023 09:00 AM AMBULATORY - [place]ICINE [place] [facility] [place] [facility] January 06, 2024 11:00 AM AMBULATORY - PSYCHIATRY [facility] [place] [facility] January 06, 2024 01:00 PM AMBULATORY - PSYCHIATRY [facility] [place] [facility] January 07, 2024 08:00 AM AMBULATORY [place]ICINE [place] [facility] [facility] January 09, 2024 09:00 AM AMBULATORY - PSYCHIATRY [facility] [place] [facility] January 14, 2024 09:30 AM AMBULATORY - MEDICINE [place] [facility] [facility] January 16, 2024 10:30 AM AMBULATORY - NONE [facility] [place] [facility] Jan 20, 2024 01:00 PM AMBULATORY - PSYCHIATRY [facility] [place] [facility] Jan 22, 2024 03:00 PM AMBULATORY - [...] 2023 10:10 AM [place] [facility] [place] [facility] VITAMIN B12 Specimen Type: SERUM No comment entered. Ordering Provider: WALE FELIZ Report Released Date/Time: Nov 15, 2023 09:56 AM Reporting Lab: [facility] [place] [facility] [address] [address] Performing Lab: [facility] [place] [facility] [address] [address] VITAMIN B12 806 pg/mL 200-900 Nov 15, 2023 10:10 AM [place] [facility] [place] [facility] MICROALBUMIN CREATININE RATIO PANEL Specimen Type: URINE No comment entered. Ordering Provider: WALE FELIZ Report Released Date/Time: Nov 15, 2023 09:56 AM Reporting Lab: [facility] [place] [facility] [address] [address] Performing Lab: [place] [facility] [place] [address] [address] MICROALBUMIN/C REATININE RATIO canc mg/g 0-29.9 MICROALBUMIN,Q UANTITATIVE < 0.5 mg/dL RR UNAVAIL CREATININE URINE 34.74 mg/dL Nov 15, 2023 10:10 AM [facility] HEMOGLOBIN A1C PANEL Specimen Type: BLOOD No comment entered. Ordering Provider: WALE FELIZ Report Released Date/Time: Nov 15, 2023 09:56 AM Reporting Lab: [address] [address] Performing Lab: [address] [address] HEMOGLOBIN A1C 6.1 H 4.0-5.6 Nov 15, 2023 10:10 AM [facility] VITAMIN D (25-OH) Specimen Type: SERUM No comment entered. Ordering Provider: WALE FELIZ Report Released Date/Time: Nov 15, 2023 09:56 AM Reporting Lab: [address] [address] Performing Lab: [address] [address] VITAMIN D (25-OH) 54 ng/mL H 20-50 Nov 15, 2023 10:10 AM [facility] BASIC METABOLIC PANEL (non-fasting) Specimen Type: SERUM No comment entered. Ordering Provider: WALE FELIZ Report Released Date/Time: Nov 15, 2023 09:56 AM Reporting Lab: [address] [address] Performing Lab: [address] [address] UREA NITROGEN 6 mg/dL L 7-25 GLUCOSE [...] took place. Date/Time Current Smoking Status Comment [facility] Feb 08, 2023 10:00 AM VA-TOBACCO FORMER USER [place] [facility] [facility] [...] 04, 2021 10:28 AM VA-TOBACCO NEVER USED [place] [facility] [facility] May 03, 2020 02:00 PM VA-TOBACCO NEVER USED [place] [facility] [facility] [...] AM QUIT TOBACCO USE 1-[facility] A[facility] [place] [facility] Oct 19, 2014 01:53 PM QUIT TOBACCO USE > 7 YEARS AGO [place] [facility] [facility] January 02, 2014 01:30 AM QUIT TOBACCO USE IN PAST YEAR [facility] [place] [facility] Jun 18, 2013 09:00 AM CURRENT SMOKER 6 cigarettes qd [facility] [place] [facility] Jun 18, 2013 09:00 AM V1-PT DECLINES TOBACCO CESSATION MEDS [place] [facility] [place] [facility] Jun 18, 2013 09:00 AM V1-PT NOT INTERESTED IN QUIT TOBACCO USE [facility] [place] [facility] December 24, 2012 10:51 AM V1-PT DECLINES REF TO TOBACCO CESS PRGM [facility] [place] [facility] December 24, 2012 10:51 AM V1-PT DECLINES TOBACCO CESSATION MEDS [facility] [place] [facility] December 24, 2012 10:51 AM V1-PT THINKING ABOUT QUIT TOBACCO USE [facility] [place] [facility] Jul 15, 2012 10:19 AM QUIT TOBACCO USE IN PAST YEAR [facility] [place] [place] [facility] Jan 25, 2012 05:02 PM QUIT TOBACCO USE IN PAST YEAR [facility] [place] [facility] Sep 28, 2011 10:09 AM CURRENT SMOKER 5 cigarettes a day [facility] [place] [facility] Jun 15, 2011 02:23 PM V1-PT DECLINES REF TO TOBACCO CESS PRGM [facility] [place] [facility] Jun 15, 2011 02:23 PM V1-PT READY TO QUIT TOBACCO USE [facility] [place] [facility] Apr 13, 2011 10:31 AM V1-PT DECLINES REF TO TOBACCO CESS PRGM [facility] Apr 13, 2011 10:31 AM V1-PT RECEIVES TOBACCO CESS MEDS OUTSIDE [facility] [place] [facility] Apr 13, 2011 10:31 AM V1-PT THINKING ABOUT QUIT TOBACCO USE [facility] [place] [facility] Oct 16, 2010 08:52 AM QUIT TOBACCO USE IN PAST YEAR [facility] May 12, 2010 02:08 PM V1-PT DECLINES REF TO TOBACCO CESS [facility] May 12, 2010 02:08 PM V1-PT READY TO QUIT TOBACCO USE [facility] May 12, 2010 12:45 PM CURRENT SMOKER 3 cigarettes a day [facility] Radiology Reports: +/- 30 days [...] ELBOW 3 OR MORE VIEWS(LEFT): PEBBLES MEEK [id number] -[id number] F Exm Date: NOV 15, 2023@10:22 Req Phys: CADEN FELIZ Loc: CWM/NO/PACT 6 WH (Req'g Loc) Img Loc: [facility] 1 Service: Unknown (Case [id number] COMPLETE) ELBOW 3 OR MORE VIEWS(LEFT) (RAD Detailed) CPT:66538 Reason for Study: pain and swelling left elbow Clinical History: 73yo woman with h/o traumatic injury in 20s, Report Status: Verified Date Reported: NOV 15, 2023 Date Verified: NOV 15, 2023 Industrial Relations Analyst E-Sig:/ES/NEMO RODRIGUEZ JR Report: Study: AP, [...] Primary Interpreting Staff: NEMO RODRIGUEZ JR, Radiologist (Industrial Relations Analyst) /NEMO WEISS JR [facility] Encounter Notes: All associated encounter notes This section contains the clinical notes associated to the Encounter. Date/Time Encounter Note(s) Provider Source Dec 09, 2023 12:00 PM NONVA CONSULT: LOCAL TITLE: COMMUNITY CARE-CONSULT RESULT NOTE STANDARD TITLE: NONVA CONSULT DATE OF NOTE: DEC 09, 2023@12:00 ENTRY DATE: JAN 27, 2024@10:34:58 AUTHOR: JERSEY MORAN EXP COSIGNER: URGENCY: STATUS: COMPLETED VistA Imaging - Scanned Document SCANNED DOCUMENT SIGNATURE NOT REQUIRED Electronically Filed: 01/27/2024 by: JERSEY [employer] SPEC JERSEY MORAN [facility]
--- OUTSIDE RECORDS SUMMARY | 2024-08-04 17:06 | XMS_ITS | Encounter Summary ---
Author Name [facility] [facility] [place] [facility] Address [address] [place] [address] Care Team Providers Care Tribal [place] Member Name Role Phone CADEN FELIZ Primary Care [...] PLAN I Aug 19, 2019 PLAN I [id number] MEEK,SABINE ICEL PATIENT [employer] [facility] MEDICARE SUPPLEMEN MARCIA PLANM Y Aug 19, 2019 PLANMY [id number] [phone] MEEK,GR ICEL PATIENT [employer] [facility] OPTIONS MEDICARE SUPPLEMEN MARCIA AARP MEDIC ARE SUPPL Aug 19, 2019 PLAN MY [id number] MEEK,GR ICEL PATIENT [employer] INS MEDICARE SUPPLEMEN MARCIA PLANM Y Aug 19, 2019 PLANMY [id number] MEEK,GR ICEL PATIENT [employer] MED SUPP MEDICARE SUPPLEMEN MARCIA Jul 19, 2010 PLANMY [id number] [phone] MEEK,GR ICEL PATIENT MEDICARE (WNR) MEDICARE () PART B Aug 19, 2008 PART B [id number] MEEK,GR ICEL PATIENT MEDICARE (WNR) MEDICARE () PART B Aug 19, 2008 PART B [id number] [phone] MEEK,GR ICEL PATIENT MEDICARE (WNR) MEDICARE () PART B Aug 19, 2008 PART B [id number] [phone] MEEK,GR ICEL PATIENT MEDICARE (WNR) MEDICARE () PART B Aug 19, 2008 PART B [id number] MEEK,GR ICEL PATIENT MEDICARE (WNR) MEDICARE () PART B Aug 19, 2008 PART B [id number] [phone] MEEK,GR ICEL PATIENT MEDICARE (WNR) MEDICARE () PART B Aug 19, 2008 PART B [id number] [phone] MEEK,GR ICEL PATIENT MEDICARE (WNR) MEDICARE () PART B Aug 19, 2008 PART B [id number] [phone] MEEK,GR ICEL PATIENT MEDICARE (WNR) MEDICARE () PART A December 18, 2003 PART A [id number] MEEK,GR ICEL PATIENT MEDICARE (WNR) MEDICARE () PART A December 18, 2003 PART A [id number] MEEK,GR ICEL PATIENT MEDICARE (WNR) MEDICARE () PART A December 18, 2003 PART A [id number] [phone] MEEK,GR ICEL PATIENT MEDICARE (WNR) MEDICARE () PART A December 18, 2003 PART A [id number] MEEK,GR ICEL PATIENT MEDICARE (WNR) MEDICARE () PART A December 18, 2003 PART A [id number] [phone] MEEK,GR ICEL PATIENT MEDICARE (WNR) MEDICARE () PART A December 18, 2003 PART A [id number] SABINE MEEK PATIENT MEDICARE (WNR) MEDICARE (M) PART A December 18, 2003 PART A [id number] [phone] SABINE MEEK PATIENT Selected Encounter This section includes [place] at [place]. Date/Time Encounter Type Encounter Description Reason Pro vider Source Nov 16, 2023 12:00 PM Outpatient Encounter [facility] [...] - MEDICINE [facility] Nov 25, 2023 10:00 AM AMBULATORY - MEDIC[facility] [place] [facility] Nov 27, 2023 09:30 AM AMBULATORY - MEDICINE [facility] [place] [facility] Nov 28, 2023 09:00 AM AMBULATORY - MEDICINE [facility] [place] [facility] Nov 28, 2023 10:00 AM AMBULATORY - PSYCHIATRY [facility] [place] [facility] Dec 05, 2023 09:00 AM AMBULATORY - REHAB MEDICIN E [facility] [place] Dec 05, 2023 09:30 AM AMBULATORY - [facility]ICINE [facility] [place] [facility] Dec 09, 2023 09:30 AM AMBULATORY - MEDICINE [facility] [place] Dec 09, 2023 11:30 AM AMBULATORY - MEDICINE [facility] [place] [facility] Dec 12, 2023 11:30 AM AMBULATORY - NONE [facility] [place] [facility] Dec 16, 2023 01:00 PM AMBULATORY - PSYCHIATRY [facility] [place] December 23, 2023 01:00 PM AMBULATORY - PSYCHIATRY [facility] [place] December 31, 2023 09:00 AM AMBULATORY [...] AMBULATORY - PSYCHIATRY [facility] [place] Lab Results: +/- 30 days of [...] Range Comment Nov 15, 2023 10:10 AM [facility] [place] [facility] VITAMIN B12 Specimen Type: SERUM No comment entered. Ordering Provider: WALE FELIZ Report Released Date/Time: Nov 15, 2023 09:56 AM Reporting Lab: [facility] [place] [facility] [address] [address] Performing Lab: [place] [facility] [place] [facility] [address] [address] VITAMIN B12 806 pg/mL 200-900 Nov 15, 2023 10:10 AM [facility] [place] [facility] MICROALBUMIN CREATININE RATIO PANEL Specimen Type: URINE No comment entered. Ordering Provider: WALE FELIZ Report Released Date/Time: Nov 15, 2023 09:56 AM Reporting Lab: [facility] [place] [facility] [address] [address] Performing Lab: [facility] [address] [address] MICROALBUMIN/C REATININE RATIO canc mg/g 0-29.9 MICROALBUMIN,Q UANTITATIVE < 0.5 mg/dL RR UNAVAIL CREATININE URINE 34.74 mg/dL Nov 15, 2023 10:10 AM [facility] HEMOGLOBIN A1C PANEL Specimen Type: BLOOD No comment entered. Ordering Provider: WALE FELIZ Report Released Date/Time: Nov 15, 2023 09:56 AM Reporting Lab: [address] [address] Performing Lab: [address] [address] HEMOGLOBIN A1C 6.1 H 4.0-5.6 Nov 15, 2023 10:10 AM [facility] VITAMIN D (25-OH) Specimen Type: SERUM No comment entered. Ordering Provider: WALE FELIZ Report Released Date/Time: Nov 15, 2023 09:56 AM Reporting Lab: [address] [address] Performing Lab: [address] [address] VITAMIN D (25-OH) 54 ng/mL H 20-50 Nov 15, 2023 10:10 AM [facility] BASIC METABOLIC PANEL (non-fasting) Specimen Type: SERUM No comment entered. Ordering Provider: WALE FELIZ Report Released Date/Time: Nov 15, 2023 09:56 AM Reporting Lab: [address] [address] Performing Lab: [address] [address] UREA NITROGEN 6 mg/dL L 7-25 GLUCOSE 168 mg/dL H 65-100 SODIUM 134 mmol/L L 135-145 POTASSIUM 4.3 mmol/L 3.5-5.0 CHLORIDE 99 mmol/L L 100-110 CO2 25 meq/L 20-30 CREATININE, Serum 0.66 mg/dL 0.50-1.40 eGFR(CKD-EPI 2020) >90 mL/min >60 Oct 28, 2023 09:26 AM [facility] [place] [facility] GLUCOSE, Fingerstick Specimen Type: BLOOD Comment: For GLU FinTest performed by: Linda Vee For GLU Fin Meter #: [id number] Ordering Provider: WAEL FELIZ Report Released Date/Time: Oct 28, 2023 10:19 AM Reporting Lab: [place] [facility] [place] [facility] [address] [address] Performing Lab: [facility] [address] [address] GLUCOSE, Fingerstick 178 mg/dL H 65-100 Social [...] took place. Date/Time Current Smoking Status Comment [facility] [place] Feb 08, 2023 10:00 AM VA-TOBACCO FORMER USER [place] [facility] Tobacco Use History This section includes a history of the smoking, or tobacco-related health factors, that were collected on or before the date of the Encounter. The data comes from the [place] facility where the Encounter took place. Date/Time Smoking Status/Tobac co Use Comment Facility Feb 08, 2023 10:00 AM VA-TOBACCO QUIT 15 YRS OR MORE [place] [facility] [place] [facility] Mar 06, 2022 02:30 PM VA-TOBACCO FORMER USER [facility] [place] [facility] Mar 06, 2022 02:30 PM VA-TOBACCO QUIT 15 YRS OR MORE [facility] [place] [facility] Apr 04, 2021 10:28 AM VA-TOBACCO NEVER USED [facility] [place] [facility] May 03, 2020 02:00 PM VA-TOBACCO NEVER USED [facility] [place] [facility] Feb 25, 2019 08:14 AM VA-TOBACCO FORMER USER [facility] [place] [facility] Feb 25, 2019 08:14 AM VA-TOBACCO QUIT 5 TO < 15 YRS [facility] [place] [facility] Apr 04, 2018 10:41 AM QUIT TOBACCO USE 1-7 YEARS AGO [facility] [place] [facility] Oct 28, 2017 10:18 AM QUIT TOBACCO USE 1-7 YEARS AGO [facility] [place] [facility] Jan 22, 2017 01:08 PM QUIT TOBACCO USE 1-7 YEARS AGO [place] [facility] [place] [facility] Jul 18, 2016 01:34 PM QUIT TOBACCO USE 1-7 YEARS AGO [facility] [place] [facility] January 10, 2016 10:32 AM QUIT TOBACCO USE 1-7 YEARS AGO [facility] [place] [facility] Oct 13, 2015 11:05 AM QUIT TOBACCO USE 1-7 YEARS AGO [facility] [place] [facility] Oct 19, 2014 01:53 PM QUIT TOBACCO USE > 7 YEARS AGO [place] [facility] [place] [facility] January 02, 2014 01:30 AM QUIT TOBACCO USE IN PAST YEAR [place] [facility] [place] [facility] Jun 18, 2013 09:00 AM CURRENT SMOKER 6 cigarettes qd [place] [facility] [place] [facility] Jun 18, 2013 09:00 AM V1-PT DECLINES TOBACCO CESSATION MEDS [place] [facility] [place] [facility] Jun 18, 2013 09:00 AM V1-PT NOT INTERESTED IN QUIT TOBACCO USE [place] [facility] [place] [facility] December 24, 2012 10:51 AM V1-PT [facility]CLINES [facility] [place] [facility] December 24, 2012 10:51 AM V1-PT DECLINES TOBACCO CESSATION MEDS [facility] [place] [facility] December 24, 2012 10:51 AM V1-PT THINKING ABOUT QUIT TOBACCO USE [facility] [place] [facility] Jul 15, 2012 10:19 AM QUIT TOBACCO USE IN PAST YEAR [place] [facility] [place] [facility] Jan 25, 2012 05:02 PM QUIT TOBACCO USE IN PAST YEAR [place] [facility] [place] [facility] Sep 28, 2011 10:09 AM CURRENT SMOKER 5 cigarettes [facility] [place] [facility] Jun 15, 2011 02:23 PM V1-PT DECLINES REF TO TOBACCO CESS [facility] [place] [facility] Jun 15, 2011 02:23 PM V1-PT READY TO QUIT TOBACCO USE [facility] Apr 13, 2011 10:31 AM V1-PT DECLINES REF TO TOBACCO CESS PR[facility] Apr 13, 2011 10:31 AM V1-PT RECEIVES TOBACCO CESS MEDS OUTSIDE [facility] Apr 13, 2011 10:31 AM V1-PT THINKING ABOUT QUIT TOBACCO USE [facility] Oct 16, 2010 08:52 AM QUIT TOBACCO USE IN PAST YEAR [facility] May 12, 2010 02:08 PM V1-PT [facility] May 12, 2010 02:08 PM V1-PT READY TO QUIT TOBACCO USE [facility] May 12, 2010 12:45 PM CURRENT SMOKER 3 cigarettes a day [facility] Radiology Reports: +/- 30 days of [...] Encounter. The data comes from all [facility] facilities. Date/Time Radiology Report Provider Source Nov 15, 2023 10:22 AM ELBOW 3 OR MORE VIEWS(LEFT): PEBBLES MEEK [id number] F Exm Date: NOV 15, 2023@10:22 Req Phys: CADEN FELIZ Loc: C[facility]/NO/PACT 6 WH (Req'g Loc) Img Loc: [facility]BUILD[facility] 1 Service: Unknown (Case [id number] COMPLETE) ELBOW 3 OR MORE VIEWS(LEFT) (RAD Detailed) CPT:80683 Reason for Study: pain and swelling left elbow Clinical History: 73yo woman with h/o traumatic injury in 20s, Report Status: Verified Date Reported: NOV 15, 2023 Date Verified: NOV 15, 2023 Chiropractic Practice Manager E-Sig:/ES/NEMO RODRIGUEZ JR Report: Study: AP, [...] Primary Interpreting Staff: NEMO RODRIGUEZ JR, Radiologist (Chiropractic Practice Manager) /NEMO WEISS JR [facility] Encounter Notes: All associated encounter notes This section contains the clinical notes associated to the Encounter. Date/Time Encounter Note(s) Provider Source Nov 16, 2023 12:00 PM NONVA CONSULT: LOCAL TITLE: COMMUNITY CARE-CONSULT RESULT NOTE STANDARD TITLE: NONVA CONSULT DATE OF NOTE: NOV 16, 2023@12:00 ENTRY DATE: JAN 24, 2024@10:25 AUTHOR: MAYCOL SARAVIA COSIGNER: URGENCY: STATUS: COMPLETED VistA Imaging - Scanned Document SCANNED DOCUMENT SIGNATURE NOT REQUIRED Electronically Filed: 01/24/2024 by: MAYCOL WHITT [facility]
--- OUTSIDE RECORDS SUMMARY | 2024-08-04 17:06 | XMS_ITS ---
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 Name Role Phone CADEN FELIZ Primary [...] PLAN I Aug 19, 2019 PLAN I [id number] [phone] MEEK,GR ICEL PATIENT [employer] OPTIONS MEDICARE SUPPLEMEN MARCIA PLANM Y Aug 19, 2019 PLANMY [id number] [phone] MEEK,GR ICEL PATIENT [employer] OPTIONS MEDICARE SUPPLEMEN MARCIA AARP MEDIC ARE SUPPL Aug 19, 2019 PLAN MY [id number] [phone] MEEK,GR ICEL PATIENT AARP INS MEDICARE SUPPLEMEN MARCIA PLANM Y Aug 19, 2019 PLANMY [id number] MEEK,GR ICEL PATIENT AARP MED SUPP MEDICARE SUPPLEMEN MARCIA Jul 19, 2010 PLANMY [id number] MEEK,GR ICEL PATIENT MEDICARE (WNR) MEDICARE () PART B Aug 19, 2008 PART B [id number] [phone] MEEK,GR ICEL PATIENT MEDICARE (WNR) MEDICARE () PART B Aug 19, 2008 PART B [id number] [phone] MEEK,GR ICEL PATIENT MEDICARE (WNR) MEDICARE () PART B Aug 19, 2008 PART B [id number] [phone] MEEK,GR ICEL PATIENT MEDICARE (WNR) MEDICARE () PART B Aug 19, 2008 PART B [id number] MEEK,GR ICEL PATIENT MEDICARE (WNR) MEDICARE () PART B Aug 19, 2008 PART B [id number] [phone] MEEK,GR ICEL PATIENT MEDICARE (WNR) MEDICARE () PART B Aug 19, 2008 PART B [id number] MEEK,GR ICEL PATIENT MEDICARE (WNR) MEDICARE () PART B Aug 19, 2008 PART B [id number] MEEK,GR ICEL PATIENT MEDICARE (WNR) MEDICARE () PART A December 18, 2003 PART A [id number] [phone] MEEK,GR ICEL PATIENT MEDICARE (WNR) MEDICARE () PART A December 18, 2003 PART A [id number] MEEK,GR ICEL PATIENT MEDICARE (WNR) MEDICARE () PART A December 18, 2003 PART A [id number] [phone] MEEK,GR ICEL PATIENT MEDICARE (WNR) MEDICARE () PART A December 18, 2003 PART A [id number] [phone] MEEK,GR ICEL PATIENT MEDICARE (WNR) MEDICARE () PART A December 18, 2003 PART A [id number] MEEK,GR ICEL PATIENT MEDICARE (WNR) MEDICARE () PART A December 18, 2003 PART A [id number] SABINE MEEK PATIENT MEDICARE (WNR) MEDICARE (M) PART A December 18, 2003 PART A [id number] [phone] SABINE MEEK PATIENT Selected Encounter This section includes the information on record at [place] for the Encounter. Date/Time Encounter Type Encounter Description Reason Provider Source Jan 22, 2024 03:00 PM ADJUNCTIVE PROCEDURE DENTAL ICD-10-CM K08.409 Partial loss of teeth, unspecified cause, unspecified class TIFF GARCIA IHDarshan Encounter Template Text not used by [place] Assessments - Encounter Diagnoses This section includes the primary and secondary diagnoses documented for the Encounter. Date/Time Primary/Secondary Diagnosis Diagnosis Name Provider Source Jan 22, 2024 05:41 PM PRIMARY Partial loss of teeth, unspecified cause, unspecified class MARK GARCIA [facility] [place] [facility] Plan of Treatment: Future Appointments (+ 6 months) and Future Tests (+/- 45 days) The Plan of Treatment section includes future care activities for the patient from all [place] treatmentfacilities. This section includes future appointments and future orders which are active, pending or scheduled. Future Appointments This section includes appointments that were scheduled to occur 6 months from the date of the Encounter, up to a maximum of 20 appointments. The data comes from all [place] treatment facilities. Appointment Date/Time Appointment Type Appointme nt Facility Name Jan 27, 2024 01:00 PM AMBULATORY - PSYCHIATRY [facility] [place] [facility] Feb 03, 2024 01:00 PM AMBULATORY - PSYCHIATRY [facility] [place] [facility] Feb 10, 2024 01:00 PM AMBULATORY - PSYCHIATRY [facility] [place] [facility] Feb 10, 2024 02:00 PM AMBULATORY - NONE [facility] [place] [facility] Feb 17, 2024 12:30 PM AMBULATORY - NONE [facility] [place] [facility] Feb 17, 2024 01:00 PM AMBULATORY - PSYCHIATRY [facility] [place] [facility] Feb 21, 2024 08:30 AM AMBULATORY - MEDICINE [facility] [place] [facility] Feb 24, 2024 01:00 PM AMBULATORY - PSYCHIATRY [facility] [place] [facility] Feb 28, 2024 11:30 AM AMBULATORY - MEDICINE [facility] [place] [facility] Mar 02, 2024 01:00 PM AMBULATORY - PSYCHIATRY [facility] [place] [facility] Mar 06, 2024 09:30 AM AMBULATORY - MEDICINE [facility] [place] [facility] Mar 09, 2024 01:00 PM AMBULATORY - PSYCHIATRY [facility] [place] [facility] Mar 11, 2024 03:15 PM AMBULATORY - MEDICINE [facility] [place] [facility] Mar 18, 2024 08:30 AM AMBULATORY - MEDICINE [facility] [place] [facility] Mar 23, 2024 01:00 PM AMBULATORY - PSYCHIATRY [facility] [place] [facility] Mar 30, 2024 01:00 PM AMBULATORY - PSYCHIATRY [facility] [place] [facility] Apr 06, 2024 12:30 PM AMBULATORY - MEDICINE [facility] [place] [facility] Apr 06, 2024 01:00 PM AMBULATORY - MEDICINE [place] [facility] [place] [facility] Apr 23, 2024 08:40 AM AMBULATORY - PSYCHIATRY [facility] [place] [facility] May 08, 2024 08:00 AM AMBULATORY - MEDICINE [place] [facility] [place] [facility] Active, Pending, and Scheduled Orders This section includes a listing of several types of active, pending, and scheduled orders, including clinic medications orders, diagnostic test orders, procedure orders and consult orders; where the start date of the order is 45 days before the date of the Encounter or 45 days after the date of theEncounter. The data comes from all [place] treatment facilities. Test Date/Time Test Type Test Details Facility Name Feb 28, 2024 12:49 PM Consult Order COMMUNITY CARE-CARDIOLOGY Cons [facility] [place] [facility] Social History: Smoking Status (Most current) and Tobacco Use (All prior to encounter date) This section includes the most current, and the historical, smoking and tobacco- related health factors from the [place] facility where the Encounter took place. Current Smoking Status This section includes the most current smoking, or tobacco-related health factor, from the [place] facility where the Encounter took place. Date/Time Current Smoking Status Comment Facil ity Feb 08, 2023 10:00 AM VA-TOBACCO FORMER USER [facility] [place] [facility] Tobacco Use History This section includes a history of the smoking, or tobacco-related health factors, that were collected on or before the date of the Encounter. The data comes from the [place] facility where the Encounter took place. Date/Time Smoking Status/Tobac co Use Comment [facility] Feb 08, 2023 10:00 AM VA-TOBACCO QUIT 15 YRS OR MORE [facility] [place] [facility] Mar 06, 2022 02:30 PM VA-TOBACCO FORMER USER [facility] [place] [facility] Mar 06, 2022 02:30 PM VA-TOBACCO QUIT 15 YRS OR MORE [facility] [place] [facility] Apr 04, 2021 10:28 AM VA-TOBACCO NEVER USED [facility] [place] [facility] May 03, 2020 02:00 PM VA-TOBACCO NEVER USED [facility] [place] [facility] Feb 25, 2019 08:14 AM VA-TOBACCO FORMER USER [facility] [place] [facility] Feb 25, 2019 08:14 AM VA-TOBACCO QUIT 5 TO < 15 YRS [facility] [place] [facility] Apr 04, 2018 10:41 AM QUIT TOBACCO USE 1-7 YEARS AGO [facility] [place] [facility] Oct 28, 2017 10:18 AM QUIT TOBACCO USE 1-7 YEARS AGO [facility] [place] [facility] Jan 22, 2017 01:08 PM QUIT TOBACCO USE 1-7 YEARS AGO [facility] [place] [facility] Jul 18, 2016 01:34 PM QUIT TOBACCO USE 1-7 YEARS AGO [facility] [place] [facility] January 10, 2016 10:32 AM QUIT TOBACCO USE 1-7 YEARS AGO [facility] [place] [facility] Oct 13, 2015 11:05 AM QUIT TOBACCO USE 1-7 YEARS AGO [facility] [place] [facility] Oct 19, 2014 01:53 PM QUIT TOBACCO USE > 7 YEARS AGO [facility] [place] [facility] January 02, 2014 01:30 AM QUIT TOBACCO USE IN PAST YEAR [facility] [place] [facility] Jun 18, 2013 09:00 AM CURRENT SMOKER 6 cigarettes qd [facility] [place] [facility] Jun 18, 2013 09:00 AM V1-PT DECLINES TOBACCO CESSATION [facility] [place] [facility] Jun 18, 2013 09:00 AM V1-PT NOT INTERESTED IN QUIT TOBACCO USE [facility] [place] [facility] December 24, 2012 10:51 AM V1-PT DECLINES REF TO TOBACCO CESS [facility] [place] [facility] December 24, 2012 10:51 AM V1-PT DECLINES TOBACCO CESSATION [facility] [place] [facility] December 24, 2012 10:51 AM V1-PT THINKING ABOUT QUIT TOBACCO USE [facility] [place] [facility] Jul 15, 2012 10:19 AM QUIT TOBACCO USE IN PAST YEAR [facility] [place] [facility] Jan 25, 2012 05:02 PM QUIT TOBACCO USE IN PAST YEAR [facility] Sep 28, 2011 10:09 AM CURRENT SMOKER 5 cigarettes a day [facility] [place] [facility] Jun 15, 2011 02:23 PM V1-PT DECLINES REF TO TOBACCO CESS PRGM [facility] Jun 15, 2011 02:23 PM V1-PT READY TO QUIT TOBACCO USE [facility] [place] [facility] Apr 13, 2011 10:31 AM V1-PT DECLINES REF TO TOBACCO CESS [facility] Apr 13, 2011 10:31 AM V1-PT RECEIVES TOBACCO CESS [facility] Apr 13, 2011 10:31 AM V1-PT THINKING ABOUT QUIT TOBACCO USE [facility] [place] [facility] Oct 16, 2010 08:52 AM QUIT TOBACCO USE IN PAST YEAR [facility] [place] [facility] May 12, 2010 02:08 PM V1-PT DECLINES REF TO TOBACCO CESS [facility] [place] [facility] May 12, 2010 02:08 PM V1-PT READY TO QUIT TOBACCO USE [facility] May 12, 2010 12:45 PM CURRENT SMOKER 3 cigarettes a day [facility] Encounter Notes: All associated encounter notes This section contains the clinical notes associated to the Encounter. Date/Time Encounter Note(s) Provider Source Jan 22, 2024 05:39 PM DENTISTRY NOTE: LOCAL TITLE: DENTAL NOTE STANDARD TITLE: DENTISTRY NOTE DATE OF NOTE: JAN 22, 2024@17:39 ENTRY DATE: JAN 22, 2024@17:41:18 AUTHOR: HAL GARCIA EXP COSIGNER: URGENCY: STATUS: COMPLETED Patient Name: PEBBLES MEEK, : 1950, Age: 73 Visit: S: Jan 22, 2024@15:00 CWM/NO/VVC/DENTAL NEW. Primary PCE Diagnosis: K08.409 (PARTIAL LOSS OF TEETH, UNSPECIFIED CAUSE, UNSPECIFIED CLASS). Dental Category: 15-OPC, Class IV. Treatment Status: Maintenance. Completed Care: (D6192) SEMIPRECISION ATTACHMENT. Tooth: 4. DX: K08.409 Partial Loss of Teeth, unspecified Cause, unspecified Class (D6192) SEMIPRECISION ATTACHMENT. Tooth: 6. DX: K08.409 Partial Loss of Teeth, unspecified Cause, unspecified Class (D6192) SEMIPRECISION ATTACHMENT. Tooth: 12. DX: K08.409 Partial Loss of Teeth, unspecified Cause, unspecified Class (D6192) SEMIPRECISION ATTACHMENT. Tooth: 13. DX: K08.409 Partial Loss of Teeth, unspecified Cause, unspecified Class (D5730) DENTURE [facility]N [facility]. DX: K08.409 Partial Loss of Teeth, unspecified Cause, unspecified Class (D1110) DENTAL PROPHYLAXIS ADULT. DX: K08.409 Partial Loss of Teeth, unspecified Cause, unspecified Class (D1206) TOPICAL FLUORIDE VARNISH. DX: K08.409 Partial Loss of Teeth, unspecified Cause, unspecified Class (D6091) REPLACE SEMI PREC ATTACH. DX: K08.409 Partial Loss of Teeth, unspecified Cause, unspecified Class (D6091) REPLACE SEMI PREC ATTACH. DX: K08.409 Partial Loss of Teeth, unspecified Cause, unspecified Class (D6091) REPLACE SEMI PREC ATTACH. DX: K08.409 Partial Loss of Teeth, unspecified Cause, unspecified Class (D6091) REPLACE SEMI PREC ATTACH. DX: K08.409 Partial Loss of Teeth, unspecified Cause, unspecified Class Dental Alerts: Antibiotic Premed w/ 4 500 mg. capsules amoxicillin one hour prior to dental appt. due to right knee replacement. reviewed plan and pt consented to tx today prophylaxis plus burr picker new housings in max overdenture - pt agreed piezo scalign and pumice korean to mandibular teeth , with F- varnsih applied at conclusion of appointment removed existing housings from ovCD/ and verified palatal eating - slight AP movement due to pliant premaxilla tissue verified new housings leared denture, tokuso reline full intaglio, excess removed placed pink nylons to anterior implants and orange extended range in posterior continued AP rocking although much improved, will consider implant placement to anterio premaxilla area for additional stability and retention nv- pt to have OMFS consult BFS likely office, also schedule 6mprophy - - - - - - - - - - - - - - - - - - - - - - - - - - - - - - /jeana/ BRYSON GREWAL [employer], Chief Dental Service Signed: 01/22/2024 17:41 BRYSON GARCIA [facility] [place] [facility]
--- OUTSIDE RECORDS SUMMARY | 2024-08-04 17:07 | XMS_ITS ---
Author Name [facility] [place] [facility] [place] Address [address] [place] [address] Care Team Providers Care Behavioral Sciences Instructor Name Role Phone CADEN FELIZ Primary Care [...] PLAN I Aug 19, 2019 PLAN I [id number] [phone] MEEK,SABINE ICEL PATIENT [employer] OPTIONS MEDICARE SUPPLEMEN MARCIA PLANM Y Aug 19, 2019 PLANMY [id number] MEEK,GR ICEL PATIENT [employer] OPTIONS MEDICARE SUPPLEMEN MARCIA AARP MEDIC ARE SUPPL Aug 19, 2019 PLAN MY [id number] MEEK,GR ICEL PATIENT AARP INS MEDICARE SUPPLEMEN MARCIA PLANM Y Aug 19, 2019 PLANMY [id number] MEEK,GR ICEL PATIENT AARP MED SUPP MEDICARE SUPPLEMEN MARCIA Jul 19, 2010 PLANMY [id number] MEEK,GR ICEL PATIENT MEDICARE (WNR) MEDICARE () PART B Aug 19, 2008 PART B [id number] MEEK,GR ICEL PATIENT MEDICARE (WNR) MEDICARE () PART B Aug 19, 2008 PART B [id number] [phone] MEKE,GR ICEL PATIENT MEDICARE (WNR) MEDICARE () PART B Aug 19, 2008 PART B [id number] MEEK,GR ICEL PATIENT MEDICARE (WNR) MEDICARE () PART B Aug 19, 2008 PART B [id number] MEEK,GR ICEL PATIENT MEDICARE (WNR) MEDICARE () PART B Aug 19, 2008 PART B [id number] MEEK,GR ICEL PATIENT MEDICARE (WNR) MEDICARE () PART B Aug 19, 2008 PART B [id number] [phone] MEEK,GR ICEL PATIENT MEDICARE (WNR) MEDICARE () PART B Aug 19, 2008 PART B [id number] [phone] MEEK,GR ICEL PATIENT MEDICARE (WNR) MEDICARE () PART A December 18, 2003 PART A [id number] MEEK,GR ICEL PATIENT MEDICARE (WNR) MEDICARE () PART A December 18, 2003 PART A [id number] MEEK,GR ICEL PATIENT MEDICARE (WNR) MEDICARE () PART A December 18, 2003 PART A [id number] MEEK,GR ICEL PATIENT MEDICARE (WNR) MEDICARE () PART A December 18, 2003 PART A [id number] [phone] MEEK,GR ICEL PATIENT MEDICARE (WNR) MEDICARE () PART A December 18, 2003 PART A [id number] MEEK,GR ICEL PATIENT MEDICARE (WNR) MEDICARE () PART A December 18, 2003 PART A [id number] SABINE MEEK PATIENT MEDICARE (WNR) MEDICARE (M) PART A December 18, 2003 PART A [id number] SABINE MEEK PATIENT Selected Encounter This section includes the information on [place] at [place] for the Encounter. Date/Time Encounter Type Encounter Description Reason Pro vider Source Feb 10, 2024 11:31 AM Outpatient Encounter TELEPHONE PRIMARY CARE IHE Encounter Template Text not used by [...] Date/Time Appointment Type Appointme nt Facility Name Feb 17, 2024 12:30 PM AM[facility]UL[facility] NONE [facility] [place] [facility] Feb 17, 2024 01:00 PM AMBULATORY [facility]CHIATRY [facility] [place] [facility] Feb 21, 2024 08:30 AM AMBULATORY - [place]ICINE [facility] [place] [facility] Feb 24, 2024 01:00 PM AMBULATORY [facility]IATRY [facility] [place] [facility] Feb 28, 2024 11:30 AM AMBULATORY - MEDICINE [place] [facility] [place] [facility] Mar 02, 2024 01:00 PM AMBULATORY [facility]IATRY [facility] [place] [facility] Mar 06, 2024 09:30 AM AMBULATORY - MEDICINE [place] [facility] [place] [facility] Mar 09, 2024 01:00 PM AMBULATORY [facility] PS[facility]IATRY [facility] [place] [facility] Mar 11, 2024 03:15 PM AMBULATORY - MEDICINE [place] [facility] [place] [facility] Mar 18, 2024 08:30 AM AMBULATORY - MEDICINE [place] [facility] [place] [facility] Mar 23, 2024 01:00 PM AMBULATORY [facility] PS[facility]IATRY [facility] [place] [facility] Mar 30, 2024 01:00 PM AMBULATORY [place]IATRY [facility] [place] [facility] Apr 06, 2024 12:30 PM AMBULATORY [place]ICINE [place] [facility] [place] [facility] Apr 06, 2024 01:00 PM AMBULATORY [place]ICINE [place] [facility] [place] [facility] Apr 23, 2024 08:40 AM AMBULATORY [place]IATRY [facility] [place] [facility] May 08, 2024 08:00 AM AMBULATORY - [place]ICINE [place] [facility] [place] [facility] May 11, 2024 01:00 PM AMBULATORY [place]ATRY [facility] [place] [facility] May 18, 2024 01:00 PM AMBULATORY [place] [facility] [place] [facility] May 20, 2024 09:30 AM [facility] May 25, 2024 01:00 PM [facility] Active, Pending, and Scheduled Orders This section includes a listing of several types of active, pending, and scheduled orders, including clinic medications orders, diagnostic test orders, procedure orders and consult orders; where the start date of the order is 45 days before the date of the Encounter or 45 days after the date of theEncounter. The data comes from all [place] treatment facilities. Test Date/Time Test Type Test Details Facility Name Feb 28, 2024 12:49 PM Consult Order COMMUNITY CARE-CARDIOLOGY Cons Cleaning Associate[facility] Choice [facility] Lab Results: +/- 30 days [...] Result - Unit Interpretation Reference Range Comment Feb 28, 2024 01:01 PM [facility] THYROID T4 FREE(FT4) (WROX) Specimen Type: SERUM No comment entered. Ordering Provider: CADEN FELIZ Report Released Date/Time: Feb 28, 2024 12:47 PM Reporting Lab: [facility] [address] [facility] [address] Performing Lab: [facility] [address] [facility] [address] THYROID T4 FREE(FT4) (WROX) 0.93 ng/dL 0.6-1.6 Feb 28, 2024 01:01 PM [facility] TSH Specimen Type: SERUM No comment entered. Ordering Provider: CADEN FELIZ Report Released Date/Time: Feb 28, 2024 12:47 PM Reporting Lab: [address] [address] Performing Lab: [address] [address] TSH 0.54 u[IU]/mL 0.35-5.00 Feb 28, 2024 01:01 PM [facility] LIVER FUNCTION Specimen Type: SERUM No comment entered. Ordering Provider: CADEN FELIZ Report Released Date/Time: Feb 28, 2024 12:47 PM Reporting Lab: [address] [address] Performing Lab: [address] [address] PROTEIN,TOTAL 7.0 g/dL 6.0-8.3 ALBUMIN 4.2 g/dL 3.5-5.0 ALKALINE PHOSPHATASE 62 U/L 40-150 AST 15 U/L 5-34 ALT 20 U/L BILIRUBIN, TOTAL 0.4 mg/dL 0.2-1.2 Feb 28, 2024 01:01 PM [facility] HEMOGLOBIN A1C PANEL Specimen Type: BLOOD Comment: Values obtained from A1C measurements can vary. For atypical A1C assays, a reported value of 7.0 could actually be between 6.72 and 7.28 if measured by a reference method. A reported value of 9.0 could actually be between 8.73 and 9.27. Ref: http://www.ngs p.org/CAPdata. asp Ordering Provider: CADEN FELIZ Report Released Date/Time: Feb 28, 2024 12:47 PM Reporting Lab: [address] [address] Performing Lab: [facility] [address] [facility] [address] HEMOGLOBIN A1C 6.2 H 4.0-5.6 Feb 28, 2024 01:01 PM [facility] BASIC METABOLIC PANEL (non-fasting) Specimen Type: SERUM No comment entered. Ordering Provider: CADEN FELIZ Report Released Date/Time: Feb 28, 2024 12:47 PM Reporting Lab: [facility] [address] [facility] [address] Performing Lab: [address] [address] UREA NITROGEN 10 mg/dL 7-25 GLUCOSE 148 mg/dL H 65-100 SODIUM 140 mmol/L 135-145 POTASSIUM 4.7 mmol/L 3.5-5.0 CHLORIDE 101 mmol/L 100-110 CO2 30 meq/L 20-30 CREATININE, Serum 0.70 mg/dL 0.50-1.40 eGFR(CKD-EPI 2020) >90 mL/min >60 Feb 28, 2024 01:01 PM [facility] CBC AND DIFF (AUTO) Specimen Type: BLOOD No comment entered. Ordering Provider: CADEN FELIZ Report Released Date/Time: Feb 28, 2024 12:47 PM Reporting Lab: [facility] [address] [facility] [address] Performing Lab: [address] [address] WBC 3.39 10*3/uL L 4.50-11.00 RBC 3.84 10*6/uL L 3.93-5.16 HGB 12.4 g/dL 12-15.2 HCT 36.1 L 36.6-45.6 MCV 94.0 fL 82-99 MCHC 34.3 g/dL 30.8-35.1 PLT 214 10*3/uL 140-360 RDW-CV 12.0 12.0-16.0 MONO, ABS 0.34 10*3/uL 0.30-1.10 MCH 32.3 pg 26.2-32.6 NEUT % 52.0 43.7-75.8 LYMPH % 32.7 14.0-42.3 MONO % 10.0 5.1-13.7 EOS % 4.1 0.4-6.8 BASO % 0.9 0.1-2.0 NEUT, ABS 1.76 10*3/uL L 2.20-7.60 LYMPH, ABS 1.11 10*3/uL 1.00-3.20 EOS, ABS 0.14 10*3/uL 0.03-0.44 BASO, ABS 0.03 10*3/uL 0.01-0.13 IMMATURE GRAN % 0.3 0.0-0.7 IMMATURE GRAN, ABS 0.01 10*3/uL 0.00-0.06 NRBC % 0.0 0.0-0.0 NRBC, ABS 0.00 10*3/uL 0.00-0.00 Social History: Smoking Status (Most current) and [...] took place. Date/Time Current Smoking Status Comment [facility] Feb 08, 2023 10:00 AM VA-TOBACCO FORMER USER [place] [facility] [place] [facility] Tobacco Use History This section includes a history of the smoking, or tobacco-related health factors, that were collected on or before the date of the Encounter. The data comes from the [place] facility where the Encounter took place. Date/Time Smoking Status/Tobac co Use Comment [facility] Feb 08, 2023 10:00 AM VA-TOBACCO QUIT 15 YRS OR MORE [facility] [place] [facility] Mar 06, 2022 02:30 PM VA-TOBACCO FORMER USER [facility] [place] [facility] Mar 06, 2022 02:30 PM VA-TOBACCO QUIT 15 YRS OR MORE [facility] [place] [facility] Apr 04, 2021 10:28 AM VA-TOBACCO NEVER USED [facility] [place] [facility] May 03, 2020 02:00 PM VA-TOBACCO NEVER USED [facility] [place] [facility] Feb 25, 2019 08:14 AM VA-TOBACCO FORMER USER [facility] [place] [facility] Feb 25, 2019 08:14 AM VA-TOBACCO QUIT 5 TO < 15 YRS [facility] [place] [facility] Apr 04, 2018 10:41 AM QUIT TOBACCO USE 1-7 YEARS AGO [facility] [place] [facility] Oct 28, 2017 10:18 AM QUIT TOBACCO USE 1-7 YEARS AGO [facility] [place] [facility] Jan 22, 2017 01:08 PM QUIT TOBACCO USE 1-7 YEARS AGO [facility] [place] [facility] Jul 18, 2016 01:34 PM QUIT TOBACCO USE 1-7 YEARS AGO [facility] [place] [facility] January 10, 2016 10:32 AM QUIT TOBACCO USE 1-7 YEARS AGO [facility] [place] [facility] Oct 13, 2015 11:05 AM QUIT TOBACCO USE 1-7 YEARS AGO [facility] [place] [facility] Oct 19, 2014 01:53 PM QUIT TOBACCO USE > 7 YEARS AGO [facility] [place] [facility] January 02, 2014 01:30 AM QUIT TOBACCO USE IN PAST YEAR [facility] [place] [facility] Jun 18, 2013 09:00 AM CURRENT SMOKER 6 cigarettes qd [facility] [place] [facility] Jun 18, 2013 09:00 AM V1-PT DECLINES [facility]BACCO [facility] [place] [facility] Jun 18, 2013 09:00 AM V1-PT NOT INTERESTED IN QUIT TOBACCO USE [facility] [place] [facility] December 24, 2012 10:51 AM V1-PT DECLINES REF TO TOBACCO CESS PRGM [facility] [place] [facility] December 24, 2012 10:51 AM V1-PT DECLINES TOBACCO CESSATION MEDS [facility] [place] [facility] December 24, 2012 10:51 AM V1-PT THINKING ABOUT QUIT TOBACCO USE [facility] [place] [facility] Jul 15, 2012 10:19 AM QUIT TOBACCO USE IN PAST YEAR [facility] [place] [facility] Jan 25, 2012 05:02 PM QUIT TOBACCO USE IN PAST YEAR [facility] [place] [facility] Sep 28, 2011 10:09 AM CURRENT SMOKER 5 cigarettes a day [facility] Jun 15, 2011 02:23 PM V1-PT DECLINES REF TO TOBACCO CESS PRGM [facility] Jun 15, 2011 02:23 PM V1-PT READY TO QUIT TOBACCO USE [facility] Apr 13, 2011 10:31 AM V1-PT DECLINES REF TO TOBACCO CESS PRGM [facility] Apr 13, 2011 10:31 AM V1-PT RECEIVES TOBACCO CESS MEDS OUTSIDE [facility] Apr 13, 2011 10:31 AM V1-PT THINKING ABOUT QUIT TOBACCO USE [facility] Oct 16, 2010 08:52 AM QUIT TOBACCO USE IN PAST YEAR [facility] May 12, 2010 02:08 PM V1-PT DECLINES REF TO TOBACCO CESS PRGM [facility] May 12, 2010 02:08 PM V1-PT READY TO QUIT TOBACCO USE [facility] May 12, 2010 12:45 PM CURRENT SMOKER 3 cigarettes a day [facility] Radiology Reports: +/- 30 days of [...] the Encounter. The data comes from all [facility] facilities. Date/Time Radiology Report Provider Source Feb 28, 2024 12:54 PM CHEST (2 VIEWS): PEBBLES MEEK [id number] -[id number] F Exm Date: FEB 28, 2024@12:54 Req Phys: CADEN FELIZ Loc: [facility]/NO/PACT 6 [facility] (Req'g Loc) Img Loc: [facility]/BUILDING 1 Service: Unknown [facility] , (Case [id number] COMPLETE) CHEST (2 VIEWS) (RAD Detailed) CPT:96519 Reason for Study: 73yo with ashtma and genearlized puritis Clinical History: to check lung dumont and lympthadenopathy Report Status: Verified Date Reported: FEB 28, 2024 Date Verified: FEB 28, 2024 Deck Cadet E-Sig:/JEANA/NEMO RODRIGUEZ JR Report: Study: PA and lateral chest x-ray. Comparison: PA and Lateral chest x-ray from October 31, 2020. Findings: The lungs are clear. No acute pulmonary process is identified. The costophrenic sulci are sharp. Cardiac and mediastinal contours and pulmonary vascularity are normal. No acute skeletal abnormalities are identified. Age-appropriate degenerative changes are seen to the spine. Impression: No acute pulmonary pathology. Primary Diagnostic Code: No immediate attention required Primary Interpreting Staff: NEMO RODRIGUEZ JR, Radiologist (Deck Cadet) /NEMO WEISS JR [facility] Encounter Notes: All associated encounter notes This section contains the clinical notes associated to the Encounter. Date/Time Encounter Note(s) Provider Source Feb 11, 2024 10:48 AM ADDENDUM: LOCAL TITLE: Addendum STANDARD TITLE: ADDENDUM DATE OF NOTE: FEB 11, 2024@10:48:39 ENTRY DATE: FEB 11, 2024@10:48:40 AUTHOR: ZORAIDA PERES EXP COSIGNER: URGENCY: STATUS: COMPLETED RN returned call would rather be seen by PCP-Request 02/22/24 0830 appointment with provider. Adding STEPHANY /jeana/ ZORAIDA PERES REGISTERED NURSE Signed: 02/11/2024 10:49 Receipt Acknowledged By: 02/11/2024 11:59 /jeana/ FRANNY FONTAINE Advanced [employer] Machine Operator ========= --- Original Document --- 02/10/24 PRIMARY CARE NURSE NOTE: Renewal request for Community accupuncture, entered and held for signature. reports itching on body whole body legs, feet, arms. No visible bumps pick request and itching skin overall. Taking Benedryl every six hours.No changes or new medication. No changes in health products. Looking for recommendation. Next appointment with PCP -April. Defer to PCP for direction. /jeana/ ZORAIDA PERES REGISTERED NURSE Signed: 02/10/2024 11:42 Receipt Acknowledged By: 02/10/2024 17:19 /mega FELIZ M.D. PHYSICIAN 02/10/2024 ADDENDUM STATUS: UNSIGNED You may not VIEW this UNSIGNED Addendum. 02/10/2024 ADDENDUM STATUS: COMPLETED Please book her for visit with me, if nothing available this week, she can be seen in sick call. /mega FELIZ M.D. PHYSICIAN Signed: 02/10/2024 17:19 Receipt Acknowledged By: 02/11/2024 10:50 /mega PERES REGISTERED NURSE 02/11/2024 ADDENDUM STATUS: COMPLETED Scheduled for 02/20. /jeana/ FRANNY FONTAINE Advanced [employer] Machine Operator Signed: 02/11/2024 11:58 ZORAIDA PERES [place] [facility] Feb 10, 2024 05:19 PM ADDENDUM: LOCAL TITLE: Addendum STANDARD TITLE: ADDENDUM DATE OF NOTE: FEB 10, 2024@17:19:21 ENTRY DATE: FEB 10, 2024@17:19:22 AUTHOR: CADEN FELIZ COSIGNER: URGENCY: STATUS: COMPLETED Please book her for visit with me, if nothing available this week, she can be seen in sick call. /mega FELIZ M.D. PHYSICIAN Signed: 02/10/2024 17:19 Receipt Acknowledged By: 02/11/2024 10:50 /mega PERES REGISTERED NURSE ========= --- Original Document --- 02/10/24 PRIMARY CARE NURSE NOTE: Renewal request for Community accupuncture, entered and held for signature. [place] reports itching on body whole body legs, feet, arms. No visible bumps pick request and itching skin overall. Taking Benedryl every six hours.No changes or new medication. No changes in health products. Looking for recommendation. Next appointment with PCP -April. Defer to PCP for direction. /mega PERES REGISTERED NURSE Signed: 02/10/2024 11:42 Receipt Acknowledged By: 02/10/2024 17:19 /mega FELIZ M.D. PHYSICIAN 02/10/2024 ADDENDUM STATUS: UNSIGNED You may not VIEW this UNSIGNED Addendum. 02/11/2024 ADDENDUM STATUS: COMPLETED RN returned call would rather be seen by PCP-Request 02/22/24 0830 appointment with provider. Adding AMSA /mega PERES REGISTERED NURSE Signed: 02/11/2024 10:49 Receipt Acknowledged By: * AWAITING SIGNATURE * FRANNY FONTAINE NICOLE [facility] Feb 10, 2024 11:31 AM NURSING NOTE: LOCAL TITLE: PRIMARY CARE NURSE NOTE STANDARD TITLE: NURSING NOTE DATE OF NOTE: FEB 10, 2024@11:31 ENTRY DATE: FEB 10, 2024@11:32:04 AUTHOR: ZORAIDA PEERS EXP COSIGNER: URGENCY: STATUS: COMPLETED PRIMARY CARE NURSE NOTE Has ADDENDA Renewal request for Community accupuncture, entered and held for signature. [place] reports itching on body whole body legs, feet, arms. No visible bumps pick request and itching skin overall. Taking Benedryl every six hours.No changes or new medication. No changes in health products. Looking for recommendation. Next appointment with PCP -April. Defer to PCP for direction. /mega PERES REGISTERED NURSE Signed: 02/10/2024 11:42 Receipt Acknowledged By: 02/10/2024 17:19 /mega FELIZ M.D. PHYSICIAN 02/10/2024 ADDENDUM STATUS: UNSIGNED You may not VIEW this UNSIGNED Addendum. 02/10/2024 ADDENDUM STATUS: COMPLETED Please book her for visit with me, if nothing available this week, she can be seen in sick call. /es/ CADEN FELIZ M.D. PHYSICIAN Signed: 02/10/2024 17:19 Receipt Acknowledged By: 02/11/2024 10:50 /jeana/ ZORAIDA PERES REGISTERED NURSE 02/11/2024 ADDENDUM STATUS: COMPLETED RN returned call would rather be seen by PCP-Request 02/22/24 0830 appointment with provider. Adding AMSA /jeana/ ZORAIDA PERES REGISTERED NURSE Signed: 02/11/2024 10:49 Receipt Acknowledged By: 02/11/2024 11:59 /jeana/ FRANNY FONTAINE Advanced [employer] Machine Operator 02/11/2024 ADDENDUM STATUS: COMPLETED Scheduled for 02/20. /jeana/ FRANNY FONTAINE Advanced [employer] Machine Operator Signed: 02/11/2024 11:58 ZORAIDA PERES [facility]
--- OUTSIDE RECORDS SUMMARY | 2024-08-04 17:07 | XMS_ITS | Encounter Summary ---
Author Name [facility] [place] [facility] [place] Organization [facility] [place] Address [address] [place] [address] Care Team Providers Care Tailor Helper Name Role Phone CADEN FELIZ Primary [...] PLAN I Aug 19, 2019 PLAN I [id number] MEEK,GR ICEL PATIENT [employer] OPTIONS MEDICARE SUPPLEMEN MARCIA PLANM Y Aug 19, 2019 PLANMY [id number] [phone] MEEK,GR ICEL PATIENT [employer] OPT[employer] MEDICARE SUPPLEMEN MARCIA AARP MEDIC ARE SUPPL Aug 19, 2019 PLAN MY [id number] MEEK,GR ICEL PATIENT A[employer] INS MEDICARE SUPPLEMEN MARCIA PLANM Y Aug 19, 2019 PLANMY [id number] MEEK,GR ICEL PATIENT A[employer] MED SUPP MEDICARE SUPPLEMEN MARCIA Jul 19, 2010 PLANMY [id number] MEEK,GR ICEL PATIENT MEDICARE (WNR) MEDICARE () PART B Aug 19, 2008 PART B [id number] [phone] MEEK,GR ICEL PATIENT MEDICARE (WNR) MEDICARE () PART B Aug 19, 2008 PART B [id number] MEEK,GR ICEL PATIENT MEDICARE (WNR) MEDICARE () PART B Aug 19, 2008 PART B [id number] MEEK,GR ICEL PATIENT MEDICARE (WNR) MEDICARE () PART B Aug 19, 2008 PART B [id number] [phone] MEEK,GR ICEL PATIENT MEDICARE (WNR) MEDICARE () PART B Aug 19, 2008 PART B [id number] MEEK,GR ICEL PATIENT MEDICARE (WNR) MEDICARE () PART B Aug 19, 2008 PART B [id number] MEEK,GR ICEL PATIENT MEDICARE (WNR) MEDICARE () PART B Aug 19, 2008 PART B [id number] [phone] MEEK,GR ICEL PATIENT MEDICARE (WNR) MEDICARE () PART A December 18, 2003 PART A [id number] MEEK,GR ICEL PATIENT MEDICARE (WNR) MEDICARE () PART A December 18, 2003 PART A [id number] MEEK,GR ICEL PATIENT MEDICARE (WNR) MEDICARE () PART A December 18, 2003 PART A [id number] MEEK,GR ICEL PATIENT MEDICARE (WNR) MEDICARE () PART A December 18, 2003 PART A [id number] [phone] MEEK,GR ICEL PATIENT MEDICARE (WNR) MEDICARE () PART A December 18, 2003 PART A [id number] MEEK,GR ICEL PATIENT MEDICARE (WNR) MEDICARE () PART A December 18, 2003 PART A [id number] SABINE MEEK PATIENT MEDICARE (WNR) MEDICARE (M) PART A December 18, 2003 PART A [id number] [phone] SABINE MEEK PATIENT Selected Encounter This section includes the information on record at [place] for the Encounter. Date/Time Encounter Type Encounter Description Reason Provider Source Jan 27, 2024 01:00 PM [facility] ICD-10-CM F43.12 Post-traumati c stress disorder, chronic MARY GIBBS E IHE Encounter Template Text not used by [place] Assessments - Encounter Diagnoses This section includes the primary and secondary diagnoses documented for the Encounter. Date/Time Primary/Secondary Diagnosis Diagnosis Name Provider Source Jan 27, 2024 02:28 PM PRIMARY Post-traumatic stress disorder, chronic MARY GIBBS [facility] [place] [facility] Plan of Treatment: Future Appointments (+ 6 months) and Future Tests (+/- 45 days) The Plan of Treatment section includes future care activities for the patient from all [place] [facility]. This section includes future appointments and future orders which are active, pending or scheduled. Future Appointments This section includes appointments that were scheduled to occur 6 months from the date of the Encounter, up to a maximum of 20 appointments. The data comes from all [place] treatment facilities. Appointment Date/Time Appointment Type Appointme nt Facility Name Feb 03, 2024 01:00 PM AMBULATORY - PSYCHIATRY [facility] [place] [facility] Feb 10, 2024 01:00 PM AMBULATORY - PSYCHIATRY [facility] [place] [facility] Feb 10, 2024 02:00 PM AMBULATORY - NONE [facility] [place] [facility] Feb 17, 2024 12:30 PM AMBULATORY - NONE [facility] [place] [facility] Feb 17, 2024 01:00 PM AMBULATORY - PSYCHIATRY [facility] [place] [facility] Feb 21, 2024 08:30 AM AMBULATORY - MEDICINE [facility] [place] [facility] Feb 24, 2024 01:00 PM AMBULATORY - PSYCHIATRY [facility] [place] [facility] Feb 28, 2024 11:30 AM AMBULATORY - MEDICINE PR [facility] [place] [facility] Mar 02, 2024 01:00 PM AMBULATORY - PSYCHIATRY [facility] [place] [facility] Mar 06, 2024 09:30 AM AMBULATORY - MEDICINE [facility] [place] [facility] Mar 09, 2024 01:00 PM AMBULATORY - PSYCHIATRY [facility] [place] [facility] Mar 11, 2024 03:15 PM AMBULATORY - MEDICINE [facility] [place] [facility] Mar 18, 2024 08:30 AM AMBULATORY - MEDICINE [facility] [place] [facility] Mar 23, 2024 01:00 PM AMBULATORY - PSYCHIATRY [facility] [place] [facility] Mar 30, 2024 01:00 PM AMBULATORY - PSYCHIATRY [facility] [place] [facility] Apr 06, 2024 12:30 PM AMBULATORY - MEDICINE PR [facility] [place] [facility] Apr 06, 2024 01:00 PM AMBULATORY - MEDICINE PR [facility] [place] [facility] Apr 23, 2024 08:40 AM AMBULATORY - PSYCHIATRY [facility] [place] [facility] May 08, 2024 08:00 AM AMBULATORY - MEDICINE PR [facility] [place] [facility] May 11, 2024 01:00 PM AMBULATORY - PSYCHIATRY [facility] [place] [facility] Active, Pending, and Scheduled Orders This section includes a listing of several types of active, pending, and scheduled orders, including clinic medications orders, diagnostic test orders, procedure orders and consult orders; where the start date of the order is 45 days before the date of the Encounter or 45 days after the date of theEncounter. The data comes from all [place] treatment facilities. Test Date/Time Test Type Test Details Facility Name Feb 28, 2024 12:49 PM Consult Order COMMUNITY CARE-CARDIOLOGY Cons [employer] [place] [facility] [place] [facility] Social History: Smoking Status (Most current) and Tobacco Use (All prior to encounter date) This section includes the most current, and the historical, smoking and tobacco- related health factors from the [place] facility where the Encounter took place. Current Smoking Status This section includes the most current smoking, or tobacco-related health factor, from the [place] facility where the Encounter took place. Date/Time Current Smoking Status Comment Facil ity Feb 08, 2023 10:00 AM VA-TOBACCO FORMER USER [place] [facility] [place] [facility] Tobacco Use History This section includes a history of the smoking, or tobacco-related health factors, that were collected on or before the date of the Encounter. The data comes from the [place] facility where the Encounter took place. Date/Time Smoking Status/Tobac co Use Comment Facility Feb 08, 2023 10:00 AM VA-TOBACCO QUIT 15 YRS OR MORE [facility] [place] [facility] Mar 06, 2022 02:30 PM VA-TOBACCO FORMER USER [facility] [place] [facility] Mar 06, 2022 02:30 PM VA-TOBACCO QUIT 15 YRS OR MORE [facility] [place] [facility] Apr 04, 2021 10:28 AM VA-TOBACCO NEVER USED [facility] [place] [facility] May 03, 2020 02:00 PM VA-TOBACCO NEVER USED [facility] [place] [facility] Feb 25, 2019 08:14 AM VA-TOBACCO FORMER USER [facility] [place] [facility] Feb 25, 2019 08:14 AM VA-TOBACCO QUIT 5 TO < 15 YRS [facility] [place] [facility] Apr 04, 2018 10:41 AM QUIT TOBACCO USE 1-7 YEARS AGO [facility] [place] [facility] Oct 28, 2017 10:18 AM QUIT TOBACCO USE 1-7 YEARS AGO [facility] [place] [facility] Jan 22, 2017 01:08 PM QUIT TOBACCO USE 1-7 YEARS AGO [facility] [place] [facility] Jul 18, 2016 01:34 PM QUIT TOBACCO USE 1-7 YEARS AGO [facility] [place] [facility] January 10, 2016 10:32 AM QUIT TOBACCO USE 1-7 YEARS AGO [facility] [place] [facility] Oct 13, 2015 11:05 AM QUIT TOBACCO USE 1-7 YEARS AGO [facility] [place] [facility] Oct 19, 2014 01:53 PM QUIT TOBACCO USE > 7 YEARS AGO [facility] [place] [facility] January 02, 2014 01:30 AM QUIT TOBACCO USE IN PAST YEAR [facility] [place] [facility] Jun 18, 2013 09:00 AM CURRENT SMOKER 6 cigarettes qd [facility] [place] [facility] Jun 18, 2013 09:00 AM V1-PT DECLINES TOBACCO CESSATION MEDS [facility] [place] [place] [facility] Jun 18, 2013 09:00 AM V1-PT NOT INTERESTED IN QUIT TOBACCO USE [facility] [place] [facility] December 24, 2012 10:51 AM V1-PT DECLINES REF TO TOBACCO CESS [facility] [place] [facility] December 24, 2012 10:51 AM V1-PT DECLINES TOBACCO CESSATION MEDS [facility] [place] [facility] December 24, 2012 10:51 AM V1-PT THINKING ABOUT QUIT [facility]ACCO [facility] Jul 15, 2012 10:19 AM QUIT TOBACCO USE IN PAST [facility]AR [facility] Jan 25, 2012 05:02 PM QUIT TOBACCO USE IN PAST YEAR [facility] Sep 28, 2011 10:09 AM CURRENT SMOKER 5 cigarettes a day [facility] Jun 15, 2011 02:23 PM V1-PT DECLINES REF TO TOBACCO CESS [facility] Jun 15, 2011 02:23 PM V1-PT READY TO QUIT TOBACCO USE [facility] Apr 13, 2011 10:31 AM V1-PT DECLINES REF TO TOBACCO CESS [facility] Apr 13, 2011 10:31 AM V1-PT RECEIVES TOBACCO CESS MEDS [facility] Apr 13, 2011 10:31 AM V1-PT THINKING ABOUT QUIT TOBACCO USE [facility] [place] [facility] Oct 16, 2010 08:52 AM QUIT TOBACCO USE IN PAST YEAR [facility] [place] [place] [facility] May 12, 2010 02:08 PM V1-PT DECLINES REF TO TOBACCO CESS [facility] May 12, 2010 02:08 PM V1-PT READY TO QUIT TOBACCO USE [facility] May 12, 2010 12:45 PM CURRENT SMOKER 3 cigarettes [facility] Encounter Notes: All associated encounter notes This section contains the clinical notes associated to the Encounter. Date/Time Encounter Note(s) Provider Source Jan 27, 2024 02:26 PM PSYCHIATRY GROUP COUNSELING NOTE: LOCAL TITLE: PSYCHOLOGY GROUP NOTE STANDARD TITLE: PSYCHIATRY GROUP COUNSELING NOTE DATE OF NOTE: JAN 27, 2024@14:26 ENTRY DATE: JAN 27, 2024@14:27:04 AUTHOR: DEBBIE GIBBS EXP COSIGNER: URGENCY: STATUS: COMPLETED [facility] [place] Mindful Compassion Group Therapy Note (F2F) ~~~ Tractor Trailer Mechanic: Debbie Gibbs, PhD PROCEDURE: 60-minute interactive hybrid VVC/F2F group therapy session Problem: Difficulty being present in the moment and fostering compassion Objective: Explored and practice mindful compassion Number of Veterans Present in Group: 8 GROUP CONTENT: Group members engaged in a mindful listening practice involving mindful self- compassion and a poem by Beckie Tobias. Group members checked in by sharing a quality they seek to cultivate. Group members participated in a metta-loving kindness practice with a focus on extending well wishes to a beloved friend or pet. Group members committed to engage in mindful awareness and to practice metta loving kindness between now and next group. PROGRESS: [place] arrived on time and was an active and appropriate participant. participated in the mindfulness practices and group discussions. Mental Status was not formally assessed due to the nature of the encounter. [place] maintained appropriate eye contact and was alert. spoke clearly and coherently. [place]wood's thoughts were linear and related. [place]wood's affect was congruent to content and appropriate in range. No clinical signs of intoxication, withdrawal, psychosis, or cognitive impairment were observed. No evidence of suicidal or homicidal ideation. There was no evidence of AH/VH or delusions. [place]wood was future oriented. DSM-V DIAGNOSTIC IMPRESSIONS(per chart): PTSD, chronic PLAN: [place] will continue to participate in the Mindful Compassion Group on Mondays at 1pm. /jeana/ Debbie Gibbs, PhD Clinical Psychologist, [facility] Signed: 01/27/2024 14:30 DEBBIE GIBBS [facility]
--- OUTSIDE RECORDS SUMMARY | 2024-08-04 17:07 | XMS_ITS | Encounter Summary ---
Author Name [facility] [place] Address [address] [place] [address] Care Team Providers Care Machinist Brake Name Role Phone CADEN FELIZ Primary Care [...] PLAN I Aug 19, 2019 PLAN I [id number] MEEK,SABINE ICEL PATIENT [employer] OPTIONS MEDICARE SUPPLEMEN MARCIA PLANM Y Aug 19, 2019 PLANMY [id number] MEEK,GR ICEL PATIENT [employer] OPT[employer] MEDICARE SUPPLEMEN MARCIA A[employer] MEDIC ARE SUPPL Aug 19, 2019 PLAN MY [id number] [phone] MEEK,SABINE ICEL PATIENT A[employer] INS MEDICARE SUPPLEMEN MARCIA PLANM Y Aug 19, 2019 PLANMY [id number] MEEK,GR ICEL PATIENT AARP MED SUPP MEDICARE SUPPLEMEN MARCIA Jul 19, 2010 PLANMY [id number] MEEK,GR ICEL PATIENT MEDICARE (WNR) MEDICARE () PART B Aug 19, 2008 PART B [id number] MEEK,GR ICEL PATIENT MEDICARE (WNR) MEDICARE () PART B Aug 19, 2008 PART B [id number] [phone] MEEK,GR ICEL PATIENT MEDICARE (WNR) MEDICARE () PART B Aug 19, 2008 PART B [id number] [phone] MEEK,GR ICEL PATIENT MEDICARE (WNR) MEDICARE () PART B Aug 19, 2008 PART B [id number] MEEK,GR ICEL PATIENT MEDICARE (WNR) MEDICARE () PART B Aug 19, 2008 PART B [id number] [id number] MEEK,GR ICEL PATIENT MEDICARE (WNR) MEDICARE () PART B Aug 19, 2008 PART B [id number] MEEK,GR ICEL PATIENT MEDICARE (WNR) MEDICARE () PART B Aug 19, 2008 PART B [id number] MEEK,GR ICEL PATIENT MEDICARE (WNR) MEDICARE () PART A December 18, 2003 PART A [id number] [phone] MEEK,GR ICEL PATIENT MEDICARE (WNR) MEDICARE () PART A December 18, 2003 PART A [id number] [phone] MEEK,GR ICEL PATIENT MEDICARE (WNR) MEDICARE () PART A December 18, 2003 PART A [id number] [phone] MEEK,GR ICEL PATIENT MEDICARE (WNR) MEDICARE () PART A December 18, 2003 PART A [id number] [phone] MEEK,GR ICEL PATIENT MEDICARE (WNR) MEDICARE () PART A December 18, 2003 PART A [id number] [phone] MEEK,GR ICEL PATIENT MEDICARE (WNR) MEDICARE () PART A December 18, 2003 PART A [id number] [phone] SABINE MEEK PATIENT MEDICARE (WNR) MEDICARE (M) PART A December 18, 2003 PART A [id number] SABINE MEEK PATIENT Selected Encounter This section includes the information on record at [place] for the Encounter. Date/Time Encounter Type Encounter Description Reason Pro vider Source January 07, 2024 12:00 AM Outpatient Encounter EVENT (HISTORICAL) IHE Encounter Template Text not used by [place] Plan of Treatment: Future Appointments (+ 6 months) and Future Tests (+/- 45 days) The Plan of Treatment section includes future care activities for the patient from all [place] treatmentfacilities. This section includes future appointments and future orders which are active, pending or scheduled. Future Appointments This section includes appointments that were scheduled to occur 6 months from the date of the Encounter, up to a maximum of 20 appointments. The data comes from all [place] treatment facilities. Appointment Date/Time Appointment Type Appointme nt Facility Name January 09, 2024 09:00 AM AMBULATORY - PSYCHIATRY [facility] [place] [facility] January 14, 2024 09:30 AM AMBULATORY - MEDICINE [place] C [facility] [place] [facility] January 16, 2024 10:30 AM AMBULATORY - NONE [facility] [place] [facility] Jan 20, 2024 01:00 PM AMBULATORY - PSYCHIATRY [facility] [place] [facility] Jan 22, 2024 03:00 PM AMBULATORY - NONE [facility] [place] [facility] Jan 27, 2024 01:00 PM AMBULATORY - PSYCHIATRY [facility] [place] [facility] Feb 03, 2024 01:00 PM AMBULATORY - PSYCHIATRY [facility] [place] [facility] Feb 10, 2024 01:00 PM AMBULATORY - PSYCHIATRY [facility] [place] [facility] Feb 10, 2024 02:00 PM AMBULATORY - NONE [facility] [place] [facility] Feb 17, 2024 12:30 PM AMBULATORY - NONE [facility] [place] [facility] Feb 17, 2024 01:00 PM AMBULATORY - PSYCHIATRY [facility] [place] [facility] Feb 21, 2024 08:30 AM AMBULATORY - MEDICINE VA C [facility] [place] [facility] Feb 24, 2024 01:00 PM AMBULATORY - PSYCHIATRY [facility] [place] [facility] Feb 28, 2024 11:30 AM AMBULATORY - MEDICINE VA [facility] [place] [facility] Mar 02, 2024 01:00 PM AMBULATORY - PSYCHIATRY [facility] [place] [facility] Mar 06, 2024 09:30 AM AMBULATORY - MEDICINE [facility] [place] [facility] Mar 09, 2024 01:00 PM AMBULATORY - PSYCHIATRY [facility] [place] [facility] Mar 11, 2024 03:15 PM AMBULATORY - MEDICINE [facility] [place] [facility] Mar 18, 2024 08:30 AM AMBULATORY - MEDICINE [facility] [place] [facility] Mar 23, 2024 01:00 PM AMBULATORY - PSYCHIATRY [place] [facility] [place] [facility] Social History: Smoking Status (Most current) and Tobacco Use (All prior to encounter date) This section includes the most current, and the historical, smoking and tobacco- related health factors from the [place] facility where the Encounter took place. Current Smoking Status This section includes the most current smoking, or tobacco-related health factor, from the [place] facility where the Encounter took place. Date/Time Current Smoking Status Comment [facility] Feb 08, 2023 10:00 AM VA-TOBACCO FORMER USER [place] [facility] [place] [facility] Tobacco Use History This section includes a history of the smoking, or tobacco-related health factors, that were collected on or before the date of the Encounter. The data comes from the [place] facility where the Encounter took place. Date/Time Smoking Status/Tobac co Use Comment Facility Feb 08, 2023 10:00 AM VA-TOBACCO QUIT 15 YRS OR MORE [facility] [place] [facility] Mar 06, 2022 02:30 PM VA-TOBACCO FORMER USER [facility] [place] [facility] Mar 06, 2022 02:30 PM VA-TOBACCO QUIT 15 YRS OR MORE [facility] [place] [facility] Apr 04, 2021 10:28 AM VA-TOBACCO NEVER USED [facility] [place] [facility] May 03, 2020 02:00 PM VA-TOBACCO NEVER USED [facility] [place] [facility] Feb 25, 2019 08:14 AM VA-TOBACCO FORMER USER [place] [facility]TR [facility] [place] [facility] Feb 25, 2019 08:14 AM VA-TOBACCO QUIT 5 TO < 15 YRS [place] [facility] [place] [facility] Apr 04, 2018 10:41 AM QUIT TOBACCO USE 1-7 YEARS AGO [facility] [place] [facility] Oct 28, 2017 10:18 AM QUIT TOBACCO USE 1-7 YEARS AGO [place] [facility] [place] [facility] Jan 22, 2017 01:08 PM QUIT TOBACCO USE 1-7 YEARS AGO [facility] [place] [facility] Jul 18, 2016 01:34 PM QUIT TOBACCO USE 1-7 YEARS AGO [facility] [place] [facility] January 10, 2016 10:32 AM QUIT TOBACCO USE 1-7 YEARS AGO [facility] [place] [facility] Oct 13, 2015 11:05 AM QUIT TOBACCO [facility] [place] [facility] Oct 19, 2014 01:53 PM QUIT TOBACCO USE > 7 YEARS AGO [facility] [place] [facility] January 02, 2014 01:30 AM QUIT TOBACCO USE IN PAST YEAR [facility] [place] [facility] Jun 18, 2013 09:00 AM CURRENT SMOKER 6 cigarettes qd [place] [facility] [place] [facility] Jun 18, 2013 09:00 AM V1-PT DECLINES TOBACCO [facility]ESSATION MED[facility] [place] [facility] Jun 18, 2013 09:00 AM V1-PT NOT INTERESTED IN QUIT TOBACCO USE [place] [facility] [place] [facility] December 24, 2012 10:51 AM V1-PT DECLINES REF TO TOBACCO CESS PRGM [place] [facility] [facility] December 24, 2012 10:51 AM V1-PT DECLINES TOBACCO CESSATION MEDS [place] [facility] [place] [facility] December 24, 2012 10:51 AM V1-PT THINKING ABOUT QUIT TOBACCO USE [place] [facility] [place] [facility] Jul 15, 2012 10:19 AM QUIT TOBACCO USE IN PAST YEAR [facility] [place] [facility] Jan 25, 2012 05:02 PM QUIT TOBACCO USE IN PAST YEAR [facility] [place] [facility] Sep 28, 2011 10:09 AM CURRENT SMOKER 5 cigarettes a day [facility] Jun 15, 2011 02:23 PM V1-PT DECLINES REF TO TOBACCO CESS PRGM [facility] Jun 15, 2011 02:23 PM V1-PT READY TO QUIT TOBACCO USE [facility] Apr 13, 2011 10:31 AM V1-PT DECLINES REF TO TOBACCO CESS PRGM [facility] Apr 13, 2011 10:31 AM V1-PT RECEIVES TOBACCO CESS MEDS OUTSIDE [facility] Apr 13, 2011 10:31 AM V1-PT THINKING ABOUT QUIT TOBACCO USE [facility] Oct 16, 2010 08:52 AM QUIT TOBACCO USE IN PAST YEAR [facility] May 12, 2010 02:08 PM V1-PT DECLINES REF TO TOBACCO CESS PRGM [facility] May 12, 2010 02:08 PM V1-PT READY TO QUIT TOBACCO USE [facility] May 12, 2010 12:45 PM CURRENT SMOKER 3 cigarettes a day [facility] Encounter Notes: All associated encounter notes This section contains the clinical notes associated to the Encounter. Date/Time Encounter Note(s) Provider Source January 07, 2024 12:00 AM NONVA NOTE: LOCAL TITLE: NON-[place] OUTPATIENT NOTES STANDARD TITLE: NONVA NOTE DATE OF NOTE: JANUARY 07, 2024 ENTRY DATE: JAN 27, 2024@10:37:56 AUTHOR: JERSEY MORAN EXP COSIGNER: URGENCY: STATUS: COMPLETED VistA Imaging - Scanned Document SCANNED DOCUMENT SIGNATURE NOT REQUIRED Electronically Filed: 01/27/2024 by: JERSEY MORAN SIZE CHANGER JERSEY MORAN [facility] January 07, 2024 12:00 AM NONVA NOTE: LOCAL TITLE: NON-[place] OUTPATIENT NOTES STANDARD TITLE: NONVA NOTE DATE OF NOTE: JANUARY 07, 2024 ENTRY DATE: JUL 14, 2024@12:29:34 AUTHOR: LYDIA CARRANZA EXP COSIGNER: URGENCY: STATUS: COMPLETED VistA Imaging - Scanned Document SCANNED DOCUMENT SIGNATURE NOT REQUIRED Electronically Filed: 07/14/2024 by: MAYITO CARRANZA Mastic Worker MAYITO CARRANZA [facility]
--- OUTSIDE RECORDS SUMMARY | 2024-08-04 17:07 | XMS_ITS ---
Author Name [facility] [place] [facility] [place] [facility] [place] Address [address] [place] [address] Care Team Providers Care Service Secretary Name Role Phone CADEN FELIZ Primary Care [...] PLAN I Aug 19, 2019 PLAN I [id number] MEEK,GR ICEL PATIENT [employer] OPTIONS MEDICARE SUPPLEMEN MARCIA PLANM Y Aug 19, 2019 PLANMY [id number] [phone] MEEK,GR ICEL PATIENT [employer] OPTIONS MEDICARE SUPPLEMEN MARCIA AARP MEDIC ARE SUPPL Aug 19, 2019 PLAN MY [id number] MEEK,GR ICEL PATIENT AARP INS MEDICARE SUPPLEMEN MARCIA PLANM Y Aug 19, 2019 PLANMY [id number] [phone] MEEK,GR ICEL PATIENT AARP MED SUPP MEDICARE SUPPLEMEN MACRIA Jul 19, 2010 PLANMY [id number] [phone] MEEK,GR ICEL PATIENT MEDICARE (WNR) MEDICARE () PART B Aug 19, 2008 PART B [id number] [phone] MEEK,GR ICEL PATIENT MEDICARE (WNR) MEDICARE () PART B Aug 19, 2008 PART B [id number] [phone] MEEK,GR ICEL PATIENT MEDICARE (WNR) MEDICARE () PART B Aug 19, 2008 PART B [id number] MEEK,GR ICEL PATIENT MEDICARE (WNR) MEDICARE () PART B Aug 19, 2008 PART B [id number] [phone] MEEK,GR ICEL PATIENT MEDICARE (WNR) MEDICARE () PART B Aug 19, 2008 PART B [id number] [phone] MEEK,GR ICEL PATIENT MEDICARE (WNR) MEDICARE () PART B Aug 19, 2008 PART B [id number] MEEK,GR ICEL PATIENT MEDICARE (WNR) MEDICARE () PART B Aug 19, 2008 PART B [id number] MEEK,GR ICEL PATIENT MEDICARE (WNR) MEDICARE () PART A December 18, 2003 PART A [id number] MEEK,GR ICEL PATIENT MEDICARE (WNR) MEDICARE () PART A December 18, 2003 PART A [id number] MEEK,GR ICEL PATIENT MEDICARE (WNR) MEDICARE () PART A December 18, 2003 PART A [id number] [phone] MEEK,GR ICEL PATIENT MEDICARE (WNR) MEDICARE () PART A December 18, 2003 PART A [id number] MEEK,GR ICEL PATIENT MEDICARE (WNR) MEDICARE () PART A December 18, 2003 PART A [id number] MEEK,GR ICEL PATIENT MEDICARE (WNR) MEDICARE () PART A December 18, 2003 PART A [id number] SABINE MEEK PATIENT MEDICARE (WNR) MEDICARE (M) PART A December 18, 2003 PART A [id number] SABINE MEEK PATIENT Selected Encounter This section includes the information on [place] at [place] for the Encounter. Date/Time Encounter Type Encounter Description Reason Provider Source Feb 03, 2024 01:00 PM [facility] ICD-10-CM F43.12 Post-traumati c stress disorder, chronic MARY GIBBS IHDarshan Encounter Template Text not used by [place] Assessments - Encounter Diagnoses This section includes the primary and secondary diagnoses documented for the Encounter. Date/Time Primary/Secondary Diagnosis Diagnosis Name Provider Source Feb 03, 2024 04:26 PM PRIMARY Post-traumatic stress disorder, chronic ALICIA DANIELSON [place] [facility] [place] [facility] Plan of Treatment: Future Appointments (+ 6 months) and Future Tests (+/- 45 days) The Plan of Treatment section includes future care activities for the [facility] [place] [facility] This section includes future appointments and future orders which are active, pending or scheduled. Future Appointments This section includes appointments that were scheduled to occur 6 months from the date of the Encounter, up to a maximum of 20 appointments. The data comes from all [place] treatment facilities. Appointment Date/Time Appointment Type Appointme nt Facility Name Feb 10, 2024 01:00 PM AMBULATORY - PS[place]CHIATRY [place] [facility] [place] [facility] Feb 10, 2024 02:00 PM AMBULATORY - NONE [place] [facility] [place] [facility] Feb 17, 2024 12:30 PM AMBULATORY - NONE [facility] [place] [facility] Feb 17, 2024 01:00 PM AMBULATORY - PSYCHIATRY [facility] [place] [facility] Feb 21, 2024 08:30 AM AMBULATORY - MEDICINE [place] [facility] [place] [facility] Feb 24, 2024 01:00 PM AMBULATORY - PSYCHIATRY [facility] [place] [facility] Feb 28, 2024 11:30 AM AMBULATORY - MEDICINE [place] [facility] [place] [facility] Mar 02, 2024 01:00 PM AMBULATORY - PS[place]CHIATRY [place] [facility] [place] [facility] Mar 06, 2024 09:30 AM AMBULATORY - MEDICINE [place] [facility] [place] [facility] Mar 09, 2024 01:00 PM AMBULATORY - PSYCHIATRY [facility] [place] [facility] Mar 11, 2024 03:15 PM AMBULATORY - MEDICINE [facility] [place] [facility] Mar 18, 2024 08:30 AM AMBULATORY [facility] MEDICINE [facility] [place] [facility] Mar 23, 2024 01:00 PM AMBULATORY - PSYCHIATRY [facility] [place] [facility] Mar 30, 2024 01:00 PM AMBULATORY - PSYCHIATRY [facility] [place] [facility] Apr 06, 2024 12:30 PM AMBULATORY - MEDICINE [facility] [place] [facility] Apr 06, 2024 01:00 PM AMBULATORY - MEDICINE [place] [facility] [place] [facility] Apr 23, 2024 08:40 AM AMBULATORY - PSYCHIATRY [facility] [place] [facility] May 08, 2024 08:00 AM AMBULATORY - MEDICINE [place] [facility] [place] [facility] May 11, 2024 01:00 PM AMBULATORY - PSYCHIATRY [facility] [place] [facility] May 18, 2024 01:00 PM AMBULATORY - PSYCHIATRY [place] [facility] [place] [facility] Active, Pending, and Scheduled Orders This section includes a listing of several types of active, pending, and scheduled orders, including clinic medications orders, diagnostic test orders, procedure orders and consult orders; where the start date of the order is 45 days before the date of the Encounter or 45 days after the date of theEncounter. The data comes from all [place] treatment facilities. Test Date/Time Test Type Test Details Facility Name Feb 28, 2024 12:49 PM Consult Order COMMUNITY CARE-CARDIOLOGY Cons Special Service Representative's Choice [place] [facility] [place] [facility] Lab Results: +/- 30 days [...] Range Comment Feb 28, 2024 01:01 PM [facility] THYROID T4 FREE(FT4) (WROX) Specimen Type: SERUM No comment entered. Ordering Provider: CADEN FELIZ Report Released Date/Time: Feb 28, 2024 12:47 PM Reporting [facility] [address] [address] Performing Lab: [facility] [address] [address] THYROID T4 FREE(FT4) (WROX) 0.93 ng/dL 0.6-1.6 Feb 28, 2024 01:01 PM [facility] TSH Specimen Type: SERUM No comment entered. Ordering Provider: CADEN FELIZ Report Released Date/Time: Feb 28, 2024 12:47 PM Reporting Lab: [facility] [address] [address] Performing Lab: [address] [address] TSH 0.54 u[IU]/mL 0.35-5.00 Feb 28, 2024 01:01 PM [facility] LIVER FUNCTION Specimen Type: SERUM No comment entered. Ordering Provider: CADEN FELIZ Report Released Date/Time: Feb 28, 2024 12:47 PM Reporting Lab: [facility] [address] [address] Performing Lab: [address] [address] PROTEIN,TOTAL 7.0 g/dL 6.0-8.3 ALBUMIN 4.2 g/dL 3.5-5.0 ALKALINE PHOSPHATASE 62 U/L 40-150 AST 15 U/L 5-34 ALT 20 U/L BILIRUBIN, TOTAL 0.4 mg/dL 0.2-1.2 Feb 28, 2024 01:01 PM [facility] HEMOGLOBIN A1C PANEL Specimen Type: BLOOD [...] Feb 28, 2024 12:47 PM Reporting Lab: [address] [address] Performing Lab: [address] [address] HEMOGLOBIN A1C 6.2 H 4.0-5.6 Feb 28, 2024 01:01 PM [facility] BASIC METABOLIC PANEL (non-fasting) Specimen Type: SERUM No comment entered. Ordering Provider: CADEN FELIZ Report Released Date/Time: Feb 28, 2024 12:47 PM Reporting Lab: [address] [address] Performing Lab: [address] [address] UREA NITROGEN 10 mg/dL 7-25 GLUCOSE 148 mg/dL H 65-100 SODIUM 140 mmol/L 135-145 POTASSIUM 4.7 mmol/L 3.5-5.0 CHLORIDE 101 mmol/L 100-110 CO2 30 meq/L 20-30 CREATININE, Serum 0.70 mg/dL 0.50-1.40 eGFR(CKD-EPI 2020) >90 mL/min >60 Feb 28, 2024 01:01 PM [facility] CBC AND DIFF (AUTO) Specimen Type: BLOOD No comment entered. Ordering Provider: CADEN FELIZ Report Released Date/Time: Feb 28, 2024 12:47 PM Reporting Lab: [address] [address] Performing Lab: [address] [address] WBC 3.39 10*3/uL L 4.50-11.00 RBC 3.84 [...] took place. Date/Time Current Smoking Status Comment [facility] Feb 08, 2023 10:00 AM VA-TOBACCO FORMER USER [facility] Tobacco Use History This section includes a history of the smoking, or tobacco-related health factors, that were collected on or before the date of the Encounter. The data comes from the [place] facility where the Encounter took place. Date/Time Smoking Status/Tobac co Use Comment [facility] Feb 08, 2023 10:00 AM [place]-TO[place] QUIT 15 YRS OR MORE [facility] Mar 06, 2022 02:30 PM VA-TOBACCO FORMER USER [facility] Mar 06, 2022 02:30 PM VA-TOBACCO QUIT 15 YRS OR MORE [facility] [place] [facility] Apr 04, 2021 10:28 AM VA-TOBACCO NEVER USED [facility] [place] [facility] May 03, 2020 02:00 PM VA-TOBACCO NEVER USED [facility] [place] [facility] Feb 25, 2019 08:14 AM VA-TOBACCO FORMER USER [place] [facility] [place] [facility] Feb 25, 2019 08:14 AM VA-TOBACCO QUIT 5 TO < 15 YRS [facility] [place] [facility] Apr 04, 2018 10:41 AM QUIT TOBACCO USE 1-7 YEARS AGO [facility] [place] [facility] Oct 28, 2017 10:18 AM QUIT TOBACCO USE 1-7 YEARS AGO [facility] [place] [facility] Jan 22, 2017 01:08 PM QUIT TOBACCO USE 1-7 YEARS AGO [facility] [place] [facility] Jul 18, 2016 01:34 PM QUIT TOBACCO USE 1-7 YEARS AGO [facility] [place] [facility] January 10, 2016 10:32 AM QUIT TOBACCO USE 1-7 YEARS AGO [facility] [place] [facility] Oct 13, 2015 11:05 AM QUIT TOBACCO USE 1-7 YEARS AGO [facility] [place] [facility] Oct 19, 2014 01:53 PM QUIT TOBACCO USE > 7 YEARS AGO [facility] [place] [facility] January 02, 2014 01:30 AM QUIT TOBACCO USE IN PAST YEAR [place] [facility] [place] [facility] Jun 18, 2013 09:00 AM CURRENT SMOKER 6 cigarettes qd [place] [facility] [place] [facility] Jun 18, 2013 09:00 AM V1-PT DECLINES TOBACCO CESSATION MEDS [place] [facility] [place] [facility] Jun 18, 2013 09:00 AM V1-PT NOT INTERESTED IN QUIT TOBACCO USE [facility] [place] [facility] December 24, 2012 10:51 AM V1-PT DECLINES REF TO TOBACCO CESS PRGM [place] [facility] [place] [facility] December 24, 2012 10:51 AM V1-PT DECLINES TOBACCO CESSATION MEDS [place] [facility] [place] [facility] December 24, 2012 10:51 AM V1-PT THINKING ABOUT QUIT [facility]ACCO [facility] Jul 15, 2012 10:19 AM QUIT TOBACCO USE IN PAST YEAR [facility] Jan 25, 2012 05:02 PM QUIT TOBACCO USE IN PAST YEAR [facility] Sep 28, 2011 10:09 AM CURRENT SMOKER 5 cigarettes a day [facility] Jun 15, 2011 02:23 PM V1-PT DECLINES REF TO TOBACCO CESS PRGM [facility] Jun 15, 2011 02:23 PM V1-PT READY TO QUIT TOBACCO USE [facility] Apr 13, 2011 10:31 AM V1-PT DECLINES REF TO TOBACCO CESS PRGM [facility] Apr 13, 2011 10:31 AM V1-PT RECEIVES TOBACCO CESS MEDS OUTSIDE [facility] Apr 13, 2011 10:31 AM V1-PT THINKING ABOUT QUIT TOBACCO USE [facility] Oct 16, 2010 08:52 AM QUIT TOBACCO USE IN PAST YEAR [facility] May 12, 2010 02:08 PM V1-PT [facility] May 12, 2010 02:08 PM V1-PT READY TO QUIT TOBACCO USE [facility] May 12, 2010 12:45 PM CURRENT SMOKER 3 cigarettes a day [facility] Radiology Reports: +/- 30 days of [...] the Encounter. The data comes from all [facility] facilities. Date/Time Radiology Report Provider Source Feb 28, 2024 12:54 PM CHEST (2 VIEWS): PEBBLES MEEK [id number] F Exm Date: FEB 28, 2024@12:54 Req Phys: CADEN FELIZ Loc: CWM/NO/PACT 6 WH (Req'g Loc) Img Loc: [facility]/BUILDING 1 Service: Unknown [facility] , (Case [id number] COMPLETE) CHEST (2 VIEWS) (RAD Detailed) CPT:74190 Reason for Study: 73yo with ashtma and genearlized puritis Clinical History: to check lung dumont and lympthadenopathy Report Status: Verified Date Reported: FEB 28, 2024 Date Verified: FEB 28, 2024 Gripper Machine Operator E-Sig:/ES/NEMO RODRIGUEZ JR Report: Study: PA and lateral [...] Primary Interpreting Staff: NEMO RODRIGUEZ JR, Radiologist (Gripper Machine Operator) /NEMO WEISS JR [facility] Encounter Notes: All associated encounter notes This section contains the clinical notes associated to the Encounter. Date/Time Encounter Note(s) Provider Source Feb 03, 2024 01:00 PM PSYCHIATRY GROUP COUNSELING NOTE: LOCAL TITLE: PSYCHOLOGY GROUP NOTE STANDARD TITLE: PSYCHIATRY GROUP COUNSELING NOTE DATE OF NOTE: FEB 03, 2024@13:00 ENTRY DATE: FEB 03, 2024@16:10:04 AUTHOR: ALICIA DANIELSON EXP COSIGNER: LO GIBBS URGENCY: STATUS: [place] [facility]assion Group Therapy Note (F2F) [place] identified with 2 identifiers: [X] Patient Name [X] Visual recognition ~~~ Plywood Layup Line Core Layer: Alicia Danielson, , and Lo Gibbs, PhD PROCEDURE: 60-minute interactive hybrid VVC/F2F group therapy session Problem: Difficulty being present in the moment and fostering compassion Objective: Explored and practice mindful compassion Number of Veterans Present in Group: 7 GROUP CONTENT: Group members engaged in a mindful listening practice involving listening to writing by Cornel Sandhu. Group members checked in by naming something beneficially influential that has happened in their life. Group members participated in a metta-loving kindness practice with a focus on extending well wishes to a neutral person.Group members committed to engage in mindful awareness and to practice metta loving kindness between now and next group. PROGRESS: arrived on time and was an active and appropriate participant. [place] participated in the mindfulness practices and group discussions. Mental Status was not formally assessed due to the nature of the encounter. maintained appropriate eye contact and was alert. spoke clearly and coherently. [place]'s thoughts were linear and related. 's affect was congruent to content and appropriate in range. No clinical signs of intoxication, withdrawal, psychosis, or cognitive impairment were observed. No evidence of suicidal or homicidal ideation. There was no evidence of AH/VH or delusions. [place] was future oriented. DSM-V DIAGNOSTIC IMPRESSIONS(per chart): PTSD, Chronic PLAN: [place] will continue to participate in the Mindful Compassion Group on Mondays at 1pm. This case is supervised by Dr. Lo Gibbs,PhD, Staff Psychologist. Diagnosis, treatment plan, and response to care are reviewed in standard 1-hour, or more, weekly individual and group supervision meetings. /jeana/ ALICIA DANIELSON M.S.// PAYABLE REPRESENTATIVE// Signed: 02/03/2024 16:12 /jeana/ Lo Gibbs, PhD Clinical Psychologist, [facility] Cosigned: 02/03/2024 16:28 ALICIA DANIELSON [facility]
--- OUTSIDE RECORDS SUMMARY | 2024-08-04 17:09 | XMS_ITS | Encounter Summary ---
Author Name [facility] [place] Organization [facility] [place] Address [address] [place] [address] Care Team Providers Care Radio News Anchor Name Role Phone CADEN FELIZ Primary Care [...] PLAN I Aug 19, 2019 PLAN I [id number] [phone] MEEK,GR ICEL PATIENT [employer] OPTIONS MEDICARE SUPPLEMEN MARCIA PLANM Y Aug 19, 2019 PLANMY [id number] MEEK,GR ICEL PATIENT [employer] OPTIONS MEDICARE SUPPLEMEN MARCIA AARP MEDIC ARE SUPPL Aug 19, 2019 PLAN MY [id number] [phone] MEEK,GR ICEL PATIENT AARP INS MEDICARE SUPPLEMEN MARCIA PLANM Y Aug 19, 2019 PLANMY [id number] [phone] MEEK,GR ICEL PATIENT AARP MED SUPP MEDICARE SUPPLEMEN MARCAI Jul 19, 2010 PLANMY [id number] MEEK,GR ICEL PATIENT MEDICARE (WNR) MEDICARE () PART B Aug 19, 2008 PART B [id number] MEEK,GR ICEL PATIENT MEDICARE (WNR) MEDICARE () PART B Aug 19, 2008 PART B [id number] [phone] MEEK,GR ICEL PATIENT MEDICARE (WNR) MEDICARE () PART B Aug 19, 2008 PART B [id number] MEEK,GR ICEL PATIENT MEDICARE (WNR) MEDICARE () PART B Aug 19, 2008 PART B [id number] [phone] MEEK,GR ICEL PATIENT MEDICARE (WNR) MEDICARE () PART B Aug 19, 2008 PART B [id number] [phone] MEEK,GR ICEL PATIENT MEDICARE (WNR) MEDICARE () PART B Aug 19, 2008 PART B [id number] [phone] MEEK,GR ICEL PATIENT MEDICARE (WNR) MEDICARE () PART B Aug 19, 2008 PART B [id number] MEEK,GR ICEL PATIENT MEDICARE (WNR) MEDICARE () PART A December 18, 2003 PART A [id number] [phone] MEEK,GR ICEL PATIENT MEDICARE (WNR) MEDICARE () PART A December 18, 2003 PART A [id number] [phone] MEKE,GR ICEL PATIENT MEDICARE (WNR) MEDICARE () PART A December 18, 2003 PART A [id number] [phone] MEEK,GR ICEL PATIENT MEDICARE (WNR) MEDICARE () PART A December 18, 2003 PART A [id number] [phone] MEEK,GR ICEL PATIENT MEDICARE (WNR) MEDICARE () PART A December 18, 2003 PART A [id number] MEEK,GR ICEL PATIENT MEDICARE (WNR) MEDICARE () PART A December 18, 2003 PART A [id number] SABINE MEEK PATIENT MEDICARE (WNR) MEDICARE (M) PART A December 18, 2003 PART A [id number] SABINE MEEK PATIENT Selected Encounter This section includes the information on record at DC for the Encounter. Date/Time Encounter Type Encounter Description Reason Provider Source Feb 10, 2024 01:00 PM [facility] ICD-10-CM F43.12 Post-traumati c stress disorder, chronic MARY GIBBS E IHE Encounter Template Text not used by DC Assessments - Encounter Diagnoses This section includes the primary and secondary diagnoses documented for the Encounter. Date/Time Primary/Secondary Diagnosis Diagnosis Name Provider Source Feb 10, 2024 03:40 PM PRIMARY Post-traumatic stress disorder, chronic MARY GIBBS [place] [facility] [place] [facility] Plan of Treatment: Future Appointments (+ 6 months) and Future Tests (+/- 45 days) The Plan of Treatment section includes future care activities [facility] the [facility] [place] [facility] This section includes future appointments [...] 17, 2024 12:30 PM AMBULATORY - NONE [place] [facility] [place] [facility] Feb 17, 2024 01:00 PM AMBULATORY - PSYCHIATRY [place] [facility] [place] [facility] Feb 21, 2024 08:30 AM AMBULATORY - MEDICINE DC [facility] [place] [facility] Feb 24, 2024 01:00 PM AMBULATORY - PSYCHIATRY [place] [facility] [place] [facility] Feb 28, 2024 11:30 AM AMBULATORY - MEDICINE DC [facility] [place] [facility] Mar 02, 2024 01:00 PM AMBULATORY - PSYCHIATRY [place] [facility] [place] [facility] Mar 06, 2024 09:30 AM AMBULATORY - MEDICINE DC [facility] [place] [facility] Mar 09, 2024 01:00 PM AMBULATORY - PSYCHIATRY [place] [facility] [place] [facility] Mar 11, 2024 03:15 PM AMBULATORY - MEDICINE [place] [facility] [place] [facility] Mar 18, 2024 08:30 AM AMBULATORY - MEDICINE [facility] [place] [facility] Mar 23, 2024 01:00 PM AMBULATORY - PSYCHIATRY [place] [facility] [place] [facility] Mar 30, 2024 01:00 PM AMBULATORY - PSYCHIATRY [place] [facility] [place] [facility] Apr 06, 2024 12:30 PM AMBULATORY - MEDICINE [place] [facility] [place] [facility] Apr 06, 2024 01:00 PM AMBULATORY - MEDICINE [facility] [place] [facility] Apr 23, 2024 08:40 AM AMBULATORY - PSYCHIATRY [facility] [place] [facility] May 08, 2024 08:00 AM AMBULATORY - MEDICINE DC [facility] [place] [facility] May 11, 2024 01:00 PM AMBULATORY - PSYCHIATRY [place] [facility] [place] [facility] May 18, 2024 01:00 PM AMBULATORY - PSYCHIATRY DC [facility] [place] [facility] May 20, 2024 09:30 AM AMBULATORY - MEDICINE DC [facility] [place] [facility] May 25, 2024 01:00 PM AMBULATORY - PSYCHIATRY [place] [facility] [place] [facility] Active, Pending, and Scheduled Orders This section includes a listing of several types of active, pending, and scheduled orders, including clinic medications orders, diagnostic test orders, procedure orders and consult orders; where the start date of the order is 45 days before the date of the Encounter or 45 days after the date of theEncounter. The data comes from all [place] treatment facilities. Test Date/Time Test Type Test Details Facility Name Feb 28, 2024 12:49 PM Consult Order COMMUNITY CARE-CARDIOLOGY Cons Oracle Programmer Analyst's Choice [place] [facility] [place] [facility] Lab Results: +/- 30 days [...] Range Comment Feb 28, 2024 01:01 PM [facility] THYROID T4 FREE(FT4) (WROX) Specimen Type: SERUM No comment entered. Ordering Provider: CADEN FELIZ Report Released Date/Time: Feb 28, 2024 12:47 PM Reporting [facility]: [facility] [address] [address] Performing Lab: [facility] [address] [address] THYROID T4 FREE(FT4) (WROX) 0.93 ng/dL 0.6-1.6 Feb 28, 2024 01:01 PM [facility] TSH Specimen Type: SERUM No comment entered. Ordering Provider: CADEN FELIZ Report Released Date/Time: Feb 28, 2024 12:47 PM Reporting Lab: [facility] [address] [address] Performing Lab: [address] [address] TSH 0.54 u[IU]/mL 0.35-5.00 Feb 28, 2024 01:01 PM [facility] LIVER FUNCTION Specimen Type: SERUM No comment entered. Ordering Provider: CADEN FELIZ Report Released Date/Time: Feb 28, 2024 12:47 PM Reporting Lab: [facility] [address] [address] Performing Lab: [address] [address] PROTEIN,TOTAL 7.0 g/dL 6.0-8.3 ALBUMIN 4.2 g/dL 3.5-5.0 ALKALINE PHOSPHATASE 62 U/L 40-150 AST 15 U/L 5-34 ALT 20 U/L BILIRUBIN, TOTAL 0.4 mg/dL 0.2-1.2 Feb 28, 2024 01:01 PM [facility] HEMOGLOBIN A1C PANEL Specimen Type: BLOOD [...] Feb 28, 2024 12:47 PM Reporting Lab: [address] [address] Performing Lab: [address] [address] HEMOGLOBIN A1C 6.2 H 4.0-5.6 Feb 28, 2024 01:01 PM [facility] BASIC METABOLIC PANEL (non-fasting) Specimen Type: SERUM No comment entered. Ordering Provider: CADEN FELIZ Report Released Date/Time: Feb 28, 2024 12:47 PM Reporting Lab: [address] [address] Performing Lab: [address] [address] UREA NITROGEN 10 mg/dL 7-25 GLUCOSE 148 mg/dL H 65-100 SODIUM 140 mmol/L 135-145 POTASSIUM 4.7 mmol/L 3.5-5.0 CHLORIDE 101 mmol/L 100-110 CO2 30 meq/L 20-30 CREATININE, Serum 0.70 mg/dL 0.50-1.40 eGFR(CKD-EPI 2020) >90 mL/min >60 Feb 28, 2024 01:01 PM [facility] CBC AND DIFF (AUTO) Specimen Type: BLOOD No comment entered. Ordering Provider: CADEN FELIZ Report Released Date/Time: Feb 28, 2024 12:47 PM Reporting Lab: [address] [address] Performing Lab: [address] [address] WBC 3.39 10*3/uL L 4.50-11.00 RBC 3.84 [...] 08, 2023 10:00 AM VA-TOBACCO FORMER USER [facility] Tobacco Use History This section includes a history of the smoking, or tobacco-related health factors, that were collected on or before the date of the Encounter. The data comes from the [place] facility where the Encounter took place. Date/Time Smoking Status/Tobac co Use Comment [facility] Feb 08, 2023 10:00 AM DC-TOBACCO QUIT 15 YRS OR MORE [facility] Mar 06, 2022 02:30 PM VA-TOBACCO FORMER USER [facility] Mar 06, 2022 02:30 PM VA-TOBACCO QUIT 15 YRS OR MORE [facility] [place] [facility] Apr 04, 2021 10:28 AM VA-TOBACCO NEVER USED [facility] [place] [facility] May 03, 2020 02:00 PM VA-TOBACCO NEVER USED [facility] [place] [facility] Feb 25, 2019 08:14 AM VA-TOBACCO FORMER USER [place] [facility] [place] [facility] Feb 25, 2019 08:14 AM VA-TOBACCO QUIT 5 TO < 15 YRS [facility] [place] [facility] Apr 04, 2018 10:41 AM QUIT TOBACCO USE 1-7 YEARS AGO [facility] [place] [facility] Oct 28, 2017 10:18 AM QUIT TOBACCO USE 1-7 YEARS AGO [facility] [place] [facility] Jan 22, 2017 01:08 PM QUIT TOBACCO USE 1-7 YEARS AGO [facility] [place] [facility] Jul 18, 2016 01:34 PM QUIT TOBACCO USE 1-7 YEARS AGO [facility] [place] [facility] January 10, 2016 10:32 AM QUIT TOBACCO USE 1-7 YEARS AGO [facility] [place] [facility] Oct 13, 2015 11:05 AM QUIT TOBACCO USE 1-7 YEARS AGO [facility] [place] [facility] Oct 19, 2014 01:53 PM QUIT TOBACCO USE > 7 YEARS AGO [facility] [place] [facility] January 02, 2014 01:30 AM QUIT TOBACCO USE IN PAST YEAR [facility] [place] [facility] Jun 18, 2013 09:00 AM CURRENT SMOKER 6 cigarettes qd [facility] [place] [facility] Jun 18, 2013 09:00 AM V1-PT DECLINES TOBACCO CESSATION MEDS [facility] [place] [facility] Jun 18, 2013 09:00 AM V1-PT NOT INTERESTED IN QUIT TOBACCO USE [facility] [place] [facility] December 24, 2012 10:51 AM V1-PT DECLINES REF TO TOBACCO CESS PRGM [facility] [place] [facility] December 24, 2012 10:51 AM V1-PT DECLINES TOBACCO CESSATION MEDS [place] [facility] [place] [facility] December 24, 2012 10:51 AM V1-PT THINKING ABOUT QUIT [facility]ACCO [facility] Jul 15, 2012 10:19 AM QUIT TOBACCO USE IN PAST YEAR [facility] Jan 25, 2012 05:02 PM QUIT TOBACCO USE IN PAST YEAR [facility] Sep 28, 2011 10:09 AM CURRENT SMOKER 5 cigarettes a day [facility] Jun 15, 2011 02:23 PM V1-PT DECLINES REF TO TOBACCO CESS PRGM [facility] Jun 15, 2011 02:23 PM V1-PT READY TO QUIT TOBACCO USE [facility] Apr 13, 2011 10:31 AM V1-PT DECLINES REF TO TOBACCO CESS PRGM [facility] Apr 13, 2011 10:31 AM V1-PT RECEIVES TOBACCO CESS MEDS OUTSIDE [facility] Apr 13, 2011 10:31 AM V1-PT THINKING ABOUT QUIT TOBACCO USE [facility] Oct 16, 2010 08:52 AM QUIT TOBACCO USE IN PAST YEAR [facility] May 12, 2010 02:08 PM V1-PT [facility] May 12, 2010 02:08 PM V1-PT READY TO QUIT TOBACCO USE [facility] May 12, 2010 12:45 PM CURRENT SMOKER 3 cigarettes a day [facility] Radiology Reports: +/- 30 days of [...] the Encounter. The data comes from all [facility] facilities. Date/Time Radiology Report Provider Source Feb 28, 2024 12:54 PM CHEST (2 VIEWS): PEBBLES MEEK [id number] -[id number] F Exm Date: FEB 28, 2024@12:54 Req Phys: CADEN FELIZ Loc: CWM/NO/PACT 6 WH (Req'g Loc) Img Loc: [facility]/BUILDING 1 Service: Unknown [facility] , (Case [id number] COMPLETE) CHEST (2 VIEWS) (RAD Detailed) CPT:85934 Reason for Study: 73yo with ashtma and genearlized puritis Clinical History: to check lung dumont and lympthadenopathy Report Status: Verified Date Reported: FEB 28, 2024 Date Verified: FEB 28, 2024 [employer] Of Natural [employer] Officer E-Sig:/ES/NEMO RODRIGUEZ JR Report: Study: PA and [...] Primary Interpreting Staff: NEMO RODRIGUEZ JR, Radiologist ([employer] Natural [employer] Officer) /NEMO WEISS JR [facility] Encounter Notes: All associated encounter notes This section contains the clinical notes associated to the Encounter. Date/Time Encounter Note(s) Provider Source Feb 10, 2024 03:37 PM PSYCHIATRY GROUP COUNSELING NOTE: LOCAL TITLE: PSYCHOLOGY GROUP NOTE STANDARD TITLE: PSYCHIATRY GROUP COUNSELING NOTE DATE OF NOTE: FEB 10, 2024@15:37 ENTRY DATE: FEB 10, 2024@15:37:39 AUTHOR: LO GIBBS EXP COSIGNER: URGENCY: STATUS[place] [facility] [place] [facility]assion Group Therapy Note IDENTITY VERIFICATION: [X] Patient Name [X] Visual recognition [ ] Birthdate [ ] Social Security # ~~~ Educational Therapist: Abdirashid Whaley MS, and Lo iGbbs, PhD PROCEDURE: 60-minute interactive hybrid VVC/F2F group therapy session Problem: Difficulty being present in the moment and fostering compassion Objective: Explored and practice mindful compassion Number of Veterans Present in Group: 7 GROUP CONTENT: Group members engaged in a mindful listening practice involving listening to a poem by Adalberto Alfredo. Group members checked in by speaking about recent use of mindful awareness and/or compassion. The concept of practicing metta-loving kindness with a mildly difficult person in mind was introduced and discussed. Group members participated in a metta-loving kindness practice with a focus on extending well wishes to a mildly difficult person.Group members committed to engage in mindful awareness and to practice metta loving kindness between now and next group. PROGRESS: Kearsarge arrived on time and was an active and appropriate participant. [place]arge participated in the mindfulness practices and group discussions. Mental Status was not formally assessed due to the nature of the encounter. Kearsarge maintained appropriate eye contact and was alert. spoke clearly and coherently. Kearsarge's thoughts were linear and related. Kearsarge's affect was congruent to content and appropriate in range. No clinical signs of intoxication, withdrawal, psychosis, or cognitive impairment were observed. No evidence of suicidal or homicidal ideation. There was no evidence of AH/VH or delusions. Kearsarge was future oriented. DSM-V DIAGNOSTIC IMPRESSIONS(per chart): PTSD, chronic PLAN: Kearsarge will continue to participate in the Mindful Compassion Group on Mondays at 1pm. /jeana/ Lo Gibbs, PhD Clinical Psychologist, [facility] Signed: 02/10/2024 15:41 LO GIBBS [facility]
--- OUTSIDE RECORDS SUMMARY | 2024-08-04 17:09 | XMS_ITS ---
Author Name [facility] [place] [facility] [place] [facility] [place] Address [address] [place] [address] Care Team Providers Care Tumbler Plater Name Role Phone CADEN FELIZ Primary Care [...] Member ID Insurance Provider's Telephone Number Policy Shleton's Name Patient's Relationship to Policy Shelton AARP MEDICARE SUPPLEMEN MARCIA PLAN I Aug 19, 2019 PLAN I [id number] [phone] MEEK,SABINE ICEL PATIENT [employer] HE[employer] OPTIONS MEDICARE SUPPLEMEN MARCIA AARP MEDIC ARE SUPPL Aug 19, 2019 PLAN MY [id number] [phone] MEEK,GR ICEL PATIENT [employer] OPTIONS MEDICARE SUPPLEMEN MARCIA PLANM Y Aug 19, 2019 PLANMY [id number] MEEK,GR ICEL PATIENT AARP INS MEDICARE SUPPLEMEN MARCIA PLANM Y Aug 19, 2019 PLANMY [id number] MEEK,GR ICEL PATIENT AARP MED SUPP MEDICARE SUPPLEMEN MARCIA Jul 19, 2010 PLANMY [id number] MEEK,GR ICEL PATIENT MEDICARE (WNR) MEDICARE () PART B Aug 19, 2008 PART B [id number] MEEK,GR ICEL PATIENT MEDICARE (WNR) MEDICARE () PART B Aug 19, 2008 PART B [id number] MEEK,GR ICEL PATIENT MEDICARE (WNR) MEDICARE () PART B Aug 19, 2008 PART B [id number] MEEK,GR ICEL PATIENT MEDICARE (WNR) MEDICARE () PART B Aug 19, 2008 PART B [id number] MEEK,GR ICEL PATIENT MEDICARE (WNR) MEDICARE () PART B Aug 19, 2008 PART B [id number] MEEK,GR ICEL PATIENT MEDICARE (WNR) MEDICARE () PART B Aug 19, 2008 PART B [id number] 82A MEEK,GR ICEL PATIENT MEDICARE (WNR) MEDICARE () PART B Aug 19, 2008 PART B [id number] MEEK,GR ICEL PATIENT MEDICARE (WNR) MEDICARE () PART A December 18, 2003 PART A [id number] [phone] MEEK,GR ICEL PATIENT MEDICARE (WNR) MEDICARE () PART A December 18, 2003 PART A [id number] MEEK,GR ICEL PATIENT MEDICARE (WNR) MEDICARE () PART A December 18, 2003 PART A [id number] MEEK,GR ICEL PATIENT MEDICARE (WNR) MEDICARE () PART A December 18, 2003 PART A [id number] 82A MEEK,GR ICEL PATIENT MEDICARE (WNR) MEDICARE () PART A December 18, 2003 PART A [id number] [phone] EMEK,GR ICEL PATIENT MEDICARE (WNR) MEDICARE () PART A December 18, 2003 PART A [id number] [phone] SABINE MEEK PATIENT MEDICARE (WNR) MEDICARE (M) PART A December 18, 2003 PART A [id number] SABINE MEEK PATIENT Selected Encounter This section includes the information on record at [place] for the Encounter. 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 [place] [facility] Plan of Treatment: Future Appointments (+ 6 months) and Future Tests (+/- 45 days) The Plan of Treatment section includes future care activities for the [facility] [place] [facility] This section includes future appointments and future orders which are active, pending or scheduled. Future Appointments This section includes appointments that were scheduled to occur 6 months from the date of the Encounter, up to a maximum of 20 appointments. The data comes from all [place] treatment facilities. Appointment Date/Time Appointment Type Appointme nt Facility Name Feb 17, 2024 12:30 PM AMBULATORY - NONE [place] [facility] [facility] Feb 17, 2024 01:00 PM AMBULATORY - PSYCHIATRY [place] [facility] [place] [facility] Feb 21, 2024 08:30 AM AMBULATORY - MEDICINE [place] [facility] [place] [facility] Feb 24, 2024 01:00 PM AMBULATORY - PSYCHIATRY [place] [facility] [place] [facility] Feb 28, 2024 11:30 AM AMBULATORY - MEDICINE [place] [facility] [place] [facility] Mar 02, 2024 01:00 PM AMBULATORY - PSYCHIATRY [place] [facility] [place] [facility] Mar 06, 2024 09:30 AM AMBULATORY - MEDICINE [place] [facility] [place] [facility] Mar 09, 2024 01:00 PM AMBULATORY - PS[place]CHIATRY [place] [facility] [place] [facility] Mar 11, 2024 03:15 PM AMBULATORY - MEDICINE [place] [facility] [place] [facility] Mar 18, 2024 08:30 AM AMBULATORY - MEDICINE [place] [facility] [place] [facility] Mar 23, 2024 01:00 PM AMBULATORY - PSYCHIATRY [place] [facility] [place] [facility] Mar 30, 2024 01:00 PM AMBULATORY - PSYCHIATRY [place] [facility] [place] [facility] Apr 06, 2024 12:30 PM AMBULATORY - MEDICINE [place] [facility] [place] [facility] Apr 06, 2024 01:00 PM AMBULATORY - MEDICINE [place] [facility] [place] [facility] Apr 23, 2024 08:40 AM AMBULATORY - PSYCHIATRY [place] [facility] [place] [facility] May 08, 2024 08:00 AM AMBULATORY - MEDICINE [place] [facility] [place] [facility] May 11, 2024 01:00 PM AMBULATORY - PSYCHIATRY [place] [facility] [facility] May 18, 2024 01:00 PM AMBULATORY - PSYCHIATRY [place] [facility] [place] [facility] May 20, 2024 09:30 AM AMBULATORY - MEDICINE [place] [facility] [place] [facility] May 25, 2024 01:00 PM AMBULATORY - PSYCHIATRY [place] [facility] [place] [facility] Active, Pending, and Scheduled Orders This section includes a listing of several types of active, pending, and scheduled orders, including clinic medications orders, diagnostic test orders, procedure orders and consult orders; where the start date of the order is 45 days before the date of the Encounter or 45 days after the date of theEncounter. The data comes from all [place] treatment facilities. Test Date/Time Test Type Test Details Facility Name Feb 28, 2024 12:49 PM Consult Order COMMUNITY CARE-CARDIOLOGY Cons Options [facility] [place] [facility] [place] [facility] Lab Results: +/- 30 days of the [...] Range Comment Feb 28, 2024 01:01 PM [facility] THYROID T4 FREE(FT4) (WROX) Specimen Type: SERUM No comment entered. Ordering Provider: CADEN FELIZ Report Released Date/Time: Feb 28, 2024 12:47 PM Reporting Lab: [facility] [address] [id number] Performing Lab: [facility] [address] [address] THYROID T4 FREE(FT4) (WROX) 0.93 ng/dL 0.6-1.6 Feb 28, 2024 01:01 PM [facility] TSH Specimen Type: SERUM No comment entered. Ordering Provider: CADEN FELIZ Report Released Date/Time: Feb 28, 2024 12:47 PM Reporting Lab: [facility] [address] [address] Performing Lab: [facility] [address] [address] TSH 0.54 u[IU]/mL 0.35-5.00 Feb 28, 2024 01:01 PM [facility] LIVER FUNCTION Specimen Type: SERUM No comment entered. Ordering Provider: CADEN FELIZ Report Released Date/Time: Feb 28, 2024 12:47 PM Reporting Lab: [address] [address] Performing Lab: [address] [address] PROTEIN,TOTAL 7.0 g/dL 6.0-8.3 ALBUMIN 4.2 g/dL 3.5-5.0 ALKALINE PHOSPHATASE 62 U/L 40-150 AST 15 U/L 5-34 ALT 20 U/L BILIRUBIN, TOTAL 0.4 mg/dL 0.2-1.2 Feb 28, 2024 01:01 PM [facility] HEMOGLOBIN A1C PANEL Specimen [...] Feb 28, 2024 12:47 PM Reporting Lab: [address] [address] Performing Lab: [address] [address] HEMOGLOBIN A1C 6.2 H 4.0-5.6 Feb 28, 2024 01:01 PM [facility] BASIC METABOLIC PANEL (non-fasting) Specimen Type: SERUM No comment entered. Ordering Provider: CADEN FELIZ Report Released Date/Time: Feb 28, 2024 12:47 PM Reporting Lab: [address] [address] Performing Lab: [address] [address] UREA NITROGEN 10 mg/dL 7-25 GLUCOSE 148 mg/dL H 65-100 SODIUM 140 mmol/L 135-145 POTASSIUM 4.7 mmol/L 3.5-5.0 CHLORIDE 101 mmol/L 100-110 CO2 30 meq/L 20-30 CREATININE, Serum 0.70 mg/dL 0.50-1.40 eGFR(CKD-EPI 2020) >90 mL/min >60 Feb 28, 2024 01:01 PM [facility] CBC AND DIFF (AUTO) Specimen Type: BLOOD No comment entered. Ordering Provider: CADEN FELIZ Report Released Date/Time: Feb 28, 2024 12:47 PM Reporting Lab: [address] [address] Performing Lab: [address] [address] WBC 3.39 10*3/uL L 4.50-11.00 RBC 3.84 [...] and tobacco- related health factors from the [place] facility where the Encounter took place. Current Smoking Status This section includes the most current smoking, or tobacco-related health factor, from the [place] facility where the Encounter took place. Date/Time Current Smoking Status Comment [facility] Feb 08, 2023 10:00 AM VA-TOBACCO [facility] Tobacco Use History This section includes a history of the smoking, or tobacco-related health factors, that were collected on or before the date of the Encounter. The data comes from the [place] facility where the Encounter took place. Date/Time Smoking Status/Tobac co Use Comment Facility Feb 08, 2023 10:00 AM [place]-TOBACCO QUIT 15 YRS OR MORE [place] [facility] Mar 06, 2022 02:30 PM VA-TOBACCO FORMER USER [place] [facility] [place] [facility] Mar 06, 2022 02:30 PM VA-TOBACCO QUIT 15 YRS OR MORE [facility] [place] [facility] Apr 04, 2021 10:28 AM VA-TOBACCO NEVER USED [place] [facility] [place] [facility] May 03, 2020 02:00 PM VA-TOBACCO NEVER USED [place] [facility] [place] [facility] Feb 25, 2019 08:14 AM VA-TOBACCO FORMER USER [facility] [place] [facility] Feb 25, 2019 08:14 AM VA-TOBACCO QUIT 5 TO < 15 YRS [facility] [place] [facility] Apr 04, 2018 10:41 AM QUIT TOBACCO USE 1-7 YEARS AGO [facility] [place] [facility] Oct 28, 2017 10:18 AM QUIT TOBACCO USE 1-7 YEARS AGO [facility] [place] [facility] Jan 22, 2017 01:08 PM QUIT TOBACCO USE 1-7 YEARS AGO [facility] [place] [facility] Jul 18, 2016 01:34 PM QUIT TOBACCO USE 1-7 YEARS AGO [facility] [place] [facility] January 10, 2016 10:32 AM QUIT TOBACCO USE 1-7 YEARS AGO [facility] [place] [facility] Oct 13, 2015 11:05 AM QUIT TOBACCO USE 1-7 YEARS AGO [place] [facility] [place] [facility] Oct 19, 2014 01:53 PM QUIT TOBACCO USE > 7 YEARS AGO [place] [facility] [place] [facility] January 02, 2014 01:30 AM QUIT TOBACCO USE IN PAST YEAR [facility] [place] [facility] Jun 18, 2013 09:00 AM CURRENT SMOKER 6 cigarettes qd [facility] [place] [facility] Jun 18, 2013 09:00 AM V1-PT DECLINES TOBACCO CESSATION MEDS [facility] [place] [facility] Jun 18, 2013 09:00 AM V1-PT NOT INTERESTED IN QUIT TOBACCO USE [facility] [place] [facility] December 24, 2012 10:51 AM V1-PT DECLINES REF TO TOBACCO CESS PRGM [place] [facility] [place] [facility] December 24, 2012 10:51 AM V1-PT DECLINES TOBACCO CESSATION MEDS [place] [facility] December 24, 2012 10:51 AM V1-PT THINKING ABOUT QUIT TOBACCO USE [facility] Jul 15, 2012 10:19 AM QUIT TOBACCO USE IN PAST YEAR [facility] Jan 25, 2012 05:02 PM QUIT TOBACCO USE IN PAST YEAR [facility] Sep 28, 2011 10:09 AM CURRENT SMOKER 5 cigarettes a day [facility] Jun 15, 2011 02:23 PM V1-PT DECLINES REF TO TOBACCO CESS PRGM [facility] Jun 15, 2011 02:23 PM V1-PT READY TO QUIT TOBACCO USE [facility] Apr 13, 2011 10:31 AM V1-PT DECLINES REF TO TOBACCO CESS PRGM [facility] Apr 13, 2011 10:31 AM V1-PT RECEIVES TOBACCO CESS MEDS OUTSIDE [facility] Apr 13, 2011 10:31 AM V1-PT THINKING ABOUT QUIT TOBACCO USE [facility] Oct 16, 2010 08:52 AM QUIT TOBACCO USE IN PAST YEAR [facility] May 12, 2010 02:08 PM V1[facility]PT [facility] May 12, 2010 02:08 PM [...] [place] facilities. Date/Time Radiology Report Provider Source Feb 28, 2024 12:54 PM CHEST (2 VIEWS): PEBBLES MEEK [id number] -1950 F Exm Date: FEB 28, 2024@12:54 Req Phys: CADEN FELIZ Pat Loc: CWM/NO/PACT 6 WH (Req'g Loc) Img Loc: [facility]/BUILDING 1 Service: Unknown [facility] , (Case [id number] COMPLETE) CHEST (2 VIEWS) (RAD Detailed) CPT:36897 Reason for Study: 73yo with ashtma and genearlized puritis Clinical History: to check lung dumont and lympthadenopathy Report Status: Verified Date Reported: FEB 28, 2024 Date Verified: FEB 28, 2024 Patient Ambassador E-Sig:/ES/NEMO RODRIGUEZ JR Report: Study: PA and [...] Primary Interpreting Staff: NEMO RODRIGUEZ JR, Radiologist (Patient Ambassador) /NEMO WEISS JR [facility] Encounter Notes: All associated encounter notes This section contains the clinical notes associated to the Encounter. Date/Time Encounter Note(s) Provider Source Feb 10, 2024 04:39 PM DENTISTRY NOTE: LOCAL TITLE: DENTAL NOTE STANDARD TITLE: DENTISTRY NOTE DATE OF NOTE: FEB 10, 2024@16:39 ENTRY DATE: FEB 10, 2024@16:48:13 AUTHOR: HAL GARCIA EXP COSIGNER: URGENCY: STATUS: COMPLETED Patient Name: PEBBLES MEEK, : 1950, Age: 73 Visit: S: Feb 10, 2024@14:00 CWM/NO/DENTAL/DMD4. Primary PCE Diagnosis: K08.123 (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eases, class III). Dental Category: 15-OPC, Class IV. Treatment Status: Maintenance. Completed Care: (D5899) REMOVABLE PROSTHODONTIC PROC. 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 capsules amoxicillin one hour prior to dental appt. due to right knee replacement. Patient presents as walk-in to clinic today. Since last visit patient noted increased rocking of maxillary overdenture, where the housings loosened in the denture. She noted that they were loose while at home but she continued to wear the denture. One came loose at home, she placed it twice into the denture. On Saturday she found that the housing was no longer in the denture and she thinks she may have swallowed it, Patient has no adviserse symptoms or effects at this time from GI issues. Denture still loose and rocking and remaining three housings may be loose. Evaluation of the denture shows that the anterior left housing is missing and the remaining three housings have some shifting in the denture. THe anterior right housing loosened after patient tried in denture. AP rocking notable. Used PMMA to readhere the housings to the denture allowed to cure intraorally to capture position, vereified no excess and housings were all stable. New housing placed into anterior left area and allowed to cure with addtional PMMA in premaxilla area to stabilize denture and keep it from rocking. Reviewed all new areas of acrylic with patient as the matieral is a tooth colored acrylic. Patient noted improvement from rocking as well as good stability and retention from locators. Patient was inquiring about next steps in community care referral - can verify the authorization was placed and process is now with authorization communication to office. nv hygiene visit as scheduled, continue treatment planning additional two dentures and pt to return if any changes occur with current overdenture patient agreed. - - - - - - - - - - - - - - - - - - - - - - - - - - - - - - /jeana/ BRYSON GREWAL Security Patrol Officer, Chief Dental Service Signed: 02/10/2024 16:48 [facility]
--- OUTSIDE RECORDS SUMMARY | 2024-08-04 17:10 | XMS_ITS | Encounter Summary ---
Author Name [facility] [place] [facility] [place] Address [address] [place] [address] Care Team Providers Care Gun Stock Checker Name Role Phone CADEN FELIZ Primary Care [...] PLAN I Aug 19, 2019 PLAN I [id number] [phone] MEEK,SABINE ICEL PATIENT [employer] OPTIONS MEDICARE SUPPLEMEN MARCIA PLANM Y Aug 19, 2019 PLANMY [id number] [phone] MEEK,GR ICEL PATIENT [employer] OPTIONS MEDICARE SUPPLEMEN MARCIA AARP MEDIC ARE SUPPL Aug 19, 2019 PLAN MY [id number] MEEK,GR ICEL PATIENT AARP INS MEDICARE SUPPLEMEN MARCIA PLANM Y Aug 19, 2019 PLANMY [id number] [phone] MEEK,GR ICEL PATIENT AARP MED SUPP MEDICARE SUPPLEMEN MARCIA Jul 19, 2010 PLANMY [id number] MEEK,GR ICEL PATIENT MEDICARE (WNR) MEDICARE () PART B Aug 19, 2008 PART B [id number] MEEK,GR ICEL PATIENT MEDICARE (WNR) MEDICARE () PART B Aug 19, 2008 PART B [id number] MEEK,GR ICEL PATIENT MEDICARE (WNR) MEDICARE () PART B Aug 19, 2008 PART B [id number] [phone] MEEK,GR ICEL PATIENT MEDICARE (WNR) MEDICARE () PART B Aug 19, 2008 PART B [id number] MEEK,GR ICEL PATIENT MEDICARE (WNR) MEDICARE () PART B Aug 19, 2008 PART B [id number] MEEK,GR ICEL PATIENT MEDICARE (WNR) MEDICARE () PART B Aug 19, 2008 PART B [id number] MEEK,GR ICEL PATIENT MEDICARE (WNR) MEDICARE () PART B Aug 19, 2008 PART B [id number] MEEK,GR ICEL PATIENT MEDICARE (WNR) MEDICARE () PART A December 18, 2003 PART A [id number] MEEK,GR ICEL PATIENT MEDICARE (WNR) MEDICARE () PART A December 18, 2003 PART A [id number] MEEK,GR ICEL PATIENT MEDICARE (WNR) MEDICARE () PART A December 18, 2003 PART A [id number] [phone] MEEK,GR ICEL PATIENT MEDICARE (WNR) MEDICARE () PART A December 18, 2003 PART A [id number] MEEK,GR ICEL PATIENT MEDICARE (WNR) MEDICARE () PART A December 18, 2003 PART A [id number] [phone] MEEK,GR ICEL PATIENT MEDICARE (WNR) MEDICARE () PART A December 18, 2003 PART A [id number] SABINE MEEK PATIENT MEDICARE (WNR) MEDICARE (M) PART A December 18, 2003 PART A [id number] SABINE MEEK PATIENT Selected Encounter This section includes the information on [place] at [place] for the Encounter. Date/Time Encounter Type Encounter Description Reason Pro vider Source Jan 24, 2024 12:00 AM Outpatient Encounter COMMUNITY CARE CONSULT IHE [...] AMBUL[facility] Feb 03, 2024 01:00 PM AMBULATORY [facility] Feb 10, 2024 01:00 PM AMBULATORY - [facility] Feb 10, 2024 02:00 PM AMBULATORY - NONE [facility] Feb 17, 2024 12:30 PM AMBULATORY - NONE [facility] Feb 17, 2024 01:00 PM AMBULATORY - [facility]RY [facility] Feb 21, 2024 08:30 AM AMBULATORY - [place]ICINE [place] [facility] Feb 24, 2024 01:00 PM AMBULATORY - PS[facility]IATRY [facility] Feb 28, 2024 11:30 AM AMBULATORY - [place]ICINE [place] [facility] Mar 02, 2024 01:00 PM AMBULATORY - PS[facility]IATRY [facility] Mar 06, 2024 09:30 AM AMBULATORY - MEDICINE [place] [facility] Mar 09, 2024 01:00 PM AMBULATORY - PS[facility]IATRY [facility] Mar 11, 2024 03:15 PM AMBULATORY - [place]ICINE [place] [facility] Mar 18, 2024 08:30 AM AMBULATORY - [place]ICINE [place] [facility] Mar 23, 2024 01:00 PM AMBULATORY - [facility]IATRY [facility] Mar 30, 2024 01:00 PM AMBULATORY - [facility]ATRY [facility] Apr 06, 2024 12:30 PM AMBULATORY - [place]ICINE [place] [facility] Apr 06, 2024 01:00 PM AMBULATORY - [place]ICINE [place] [facility] Apr 23, 2024 08:40 AM [facility]BULAT[facility] May 08, 2024 08:00 AM [facility] Active, Pending, and Scheduled Orders [...] 12:49 PM Consult Order COMMUNITY CARE-CARDIOLOGY Cons Wood Stock Blank Handler's Choice [facility] Social History: Smoking Status (Most current) [...] took place. Date/Time Current Smoking Status Comment [facility] it Feb 08, 2023 10:00 AM [place]-TOBACCO FORMER USER [facility] Tobacco Use History This section includes a history of the smoking, or tobacco-related health factors, that were collected on or before the date of the Encounter. The data comes from the [place] facility where the Encounter took place. Date/Time Smoking Status/Tobac co Use Comment Facility Feb 08, 2023 10:00 AM [place]-TOBACCO QUIT 15 YRS OR MORE [facility] Mar 06, 2022 02:30 PM VA-TOBACCO FORMER USER [facility] Mar 06, 2022 02:30 PM VA-TOBACCO QUIT 15 YRS OR MORE [facility] Apr 04, 2021 10:28 AM VA-TOBACCO NEVER USED [place] [facility] May 03, 2020 02:00 PM VA-TOBACCO NEVER USED [place] [facility] Feb 25, 2019 08:14 AM VA-TOBACCO FORMER USER [facility] Feb 25, 2019 08:14 AM VA-TOBACCO QUIT 5 TO < 15 YRS [facility] Apr 04, 2018 10:41 AM QUIT TOBACCO USE 1-7 YEARS AGO [facility] Oct 28, 2017 10:18 AM QUIT TOBACCO USE 1-7 YEARS AGO [facility] Jan 22, 2017 01:08 PM QUIT TOBACCO USE 1-7 YEARS AGO [facility] Jul 18, 2016 01:34 PM QUIT TOBACCO USE 1-7 YEARS AGO [facility] January 10, 2016 10:32 AM QUIT TOBACCO USE 1-7 YEARS AGO [facility] Oct 13, 2015 11:05 AM QUIT TOBACCO USE 1-7 YEARS AGO [facility] Oct 19, 2014 01:53 PM QUIT TOBACCO USE > 7 YEARS AGO [facility] January 02, 2014 01:30 AM QUIT TOBACCO USE IN PAST YEAR [place] [facility] Jun 18, 2013 09:00 AM CURRENT SMOKER 6 cigarettes qd [facility] Jun 18, 2013 09:00 AM V1-PT DECLINES TOBACCO CESSATION MEDS [facility] Jun 18, 2013 09:00 AM V1-PT NOT INTERESTED IN QUIT TOBACCO USE [facility] December 24, 2012 10:51 AM V1-PT DECLINES REF TO TOBACCO CESS PRGM [facility] December 24, 2012 10:51 AM V1-PT DECLINES TOBACCO CESSATION MEDS [facility] December 24, 2012 10:51 AM V1-PT THINKING ABOUT QUIT [facility]ACCO [facility] Jul 15, 2012 10:19 AM QUIT TOBACCO USE IN PAST YEAR [facility] Jan 25, 2012 05:02 PM QUIT TOBACCO USE IN PAST YEAR [facility] Sep 28, 2011 10:09 AM CURRENT SMOKER 5 cigarettes a day [facility] Jun 15, 2011 02:23 PM V1-PT DECLINES REF TO TOBACCO CESS PRGM [facility] Jun 15, 2011 02:23 PM V1-PT READY TO QUIT TOBACCO USE [facility] Apr 13, 2011 10:31 AM V1-PT DECLINES REF TO TOBACCO CESS PRGM [facility] Apr 13, 2011 10:31 AM V1-PT RECEIVES TOBACCO CESS MEDS OUTSIDE [facility] Apr 13, 2011 10:31 AM V1-PT THINKING ABOUT QUIT TOBACCO USE [facility] Oct 16, 2010 08:52 AM QUIT TOBACCO USE IN PAST YEAR [facility] May 12, 2010 02:08 PM V1-PT DECLINES REF TO TOBACCO CESS PRGM [facility] May 12, 2010 02:08 PM V1-PT READY TO QUIT TOBACCO USE [facility] May 12, 2010 12:45 PM CURRENT SMOKER 3 cigarettes a day [facility] Encounter Notes: All associated encounter notes This section contains the clinical notes associated to the Encounter. Date/Time Encounter Note(s) Provider Source Jan 24, 2024 12:00 AM NONVA CONSULT: LOCAL TITLE: COMMUNITY CARE-CONSULT RESULT NOTE STANDARD TITLE: NONVA CONSULT DATE OF NOTE: JAN 24, 2024 ENTRY DATE: FEB 13, 2024@06:00:25 AUTHOR: MADHAVI SANTOS COSIGNER: URGENCY: STATUS: COMPLETED VistA Imaging - Scanned Document SCANNED DOCUMENT SIGNATURE NOT REQUIRED Electronically Filed: 02/13/2024 by: MADHAVI MACHADO
--- OUTSIDE RECORDS SUMMARY | 2024-08-04 17:10 | XMS_ITS | Encounter Summary ---
Author Name [facility] [place] [facility] [place] Address [address] [place] [address] Care Team Providers Care Payment Poster Name Role Phone CADEN FELIZ Primary Care [...] PLAN I Aug 19, 2019 PLAN I [id number] [phone] MEEK,SABINE ICEL PATIENT [employer] OPTIONS MEDICARE SUPPLEMEN MARCIA PLANM Y Aug 19, 2019 PLANMY [id number] MEEK,GR ICEL PATIENT [employer] OPTIONS MEDICARE SUPPLEMEN MARCIA AARP MEDIC ARE SUPPL Aug 19, 2019 PLAN MY [id number] MEEK,GR ICEL PATIENT AARP INS MEDICARE SUPPLEMEN MARCIA PLANM Y Aug 19, 2019 PLANMY [id number] MEEK,GR ICEL PATIENT AARP MED SUPP MEDICARE SUPPLEMEN MARCIA Jul 19, 2010 PLANMY [id number] MEEK,GR ICEL PATIENT MEDICARE (WNR) MEDICARE () PART B Aug 19, 2008 PART B [id number] MEEK,GR ICEL PATIENT MEDICARE (WNR) MEDICARE () PART B Aug 19, 2008 PART B [id number] MEEK,GR ICEL PATIENT MEDICARE (WNR) MEDICARE () PART B Aug 19, 2008 PART B [id number] MEEK,GR ICEL PATIENT MEDICARE (WNR) MEDICARE () PART B Aug 19, 2008 PART B [id number] MEEK,GR ICEL PATIENT MEDICARE (WNR) MEDICARE () PART B Aug 19, 2008 PART B [id number] MEEK,GR ICEL PATIENT MEDICARE (WNR) MEDICARE () PART B Aug 19, 2008 PART B [id number] MEEK,GR ICEL PATIENT MEDICARE (WNR) MEDICARE () PART B Aug 19, 2008 PART B [id number] MEEK,GR ICEL PATIENT MEDICARE (WNR) MEDICARE () PART A December 18, 2003 PART A [id number] [phone] MEEK,GR ICEL PATIENT MEDICARE (WNR) MEDICARE () PART A December 18, 2003 PART A [id number] [phone] MEEK,GR ICEL PATIENT MEDICARE (WNR) MEDICARE () PART A December 18, 2003 PART A [id number] MEEK,GR ICEL PATIENT MEDICARE (WNR) MEDICARE () PART A December 18, 2003 PART A [id number] MEEK,GR ICEL PATIENT MEDICARE (WNR) MEDICARE () PART A December 18, 2003 PART A [id number] MEEK,GR ICEL PATIENT MEDICARE (WNR) MEDICARE () PART A December 18, 2003 PART A [id number] SABINE MEEK PATIENT MEDICARE (WNR) MEDICARE (M) PART A December 18, 2003 PART A [id number] [phone] SABINE MEEK PATIENT Selected Encounter This section includes the information on record at [place] for the Encounter. Date/Time Encounter Type Encounter Description Reason Pro vider Source January 14, 2024 12:00 AM Outpatient Encounter COMMUNITY CARE CONSULT IHE Encounter Template Text not used by [place] Plan of Treatment: Future Appointments (+ 6 months) and Future Tests (+/- 45 days) The Plan of Treatment section includes future care activities for the patient from all [place] treatmentfacilities. This section includes future appointments and future orders which are active, pending or scheduled. Future Appointments This section includes appointments that were scheduled to occur 6 months from the date of the Encounter, up to a maximum of 20 appointments. The data comes from all [place] treatment facilities. Appointment Date/Time Appointment Type Appointme nt Facility Name January 16, 2024 10:30 AM AMBULATORY - NONE [facility] [place] [facility] Jan 20, 2024 01:00 PM AMBULATORY - PS[facility]CHIATRY [facility] [place] [facility] Jan 22, 2024 03:00 PM AMBULATORY - NONE [facility] [place] [facility] Jan 27, 2024 01:00 PM AMBULATORY - PS[facility]CHIATRY [facility] [place] [facility] Feb 03, 2024 01:00 PM AMBULATORY - PSYCHIATRY [facility] [place] [facility] Feb 10, 2024 01:00 PM AMBULATORY - PSYCHIATRY [facility] [place] [facility] Feb 10, 2024 02:00 PM AMBULATORY - NONE [facility] [place] [facility] Feb 17, 2024 12:30 PM AMBULATORY - NONE [facility] [place] [facility] Feb 17, 2024 01:00 PM AMBULATORY - PSYCHIATRY [facility] [place] [facility] Feb 21, 2024 08:30 AM AMBULATORY - MEDICINE [facility] [place] [facility] Feb 24, 2024 01:00 PM AMBULATORY - PSYCHIATRY [facility] [place] [facility] Feb 28, 2024 11:30 AM AMBULATORY - MEDICINE [facility] [place] [facility] Mar 02, 2024 01:00 PM AMBULATORY - PS[place]CHIATRY [facility] [place] [facility] Mar 06, 2024 09:30 AM AMBULATORY - MEDICINE [place] [facility] [place] [facility] Mar 09, 2024 01:00 PM AMBULATORY - PS[place]CHIATRY [facility] [place] [facility] Mar 11, 2024 03:15 PM AMBULATORY - MEDICINE [place] [facility] [place] [facility] Mar 18, 2024 08:30 AM AMBULATORY - MEDICINE [place] [facility] [place] [facility] Mar 23, 2024 01:00 PM AMBULATORY - PSYCHIATRY [facility] [place] [facility] Mar 30, 2024 01:00 PM [facility] Apr 06, 2024 12:30 PM [facility] Active, Pending, and Scheduled Orders This section includes a listing of several types of active, pending, and scheduled orders, including clinic medications orders, diagnostic test orders, procedure orders and consult orders; where the start date of the order is 45 days before the date of the Encounter or 45 days after the date of theEncounter. The data comes from all [place] treatment facilities. Test Date/Time Test Type Test Details Facility Name Feb 28, 2024 12:49 PM Consult Order COMMUNITY CARE-CARDIOLOGY Cons Information Technology Security Analyst's Choice [facility] Social History: Smoking Status (Most current) and Tobacco Use (All prior to encounter date) This section includes the most current, and the historical, smoking and tobacco- related health factors from the [place] facility where the Encounter took place. Current Smoking Status This section includes the most current smoking, or tobacco-related health factor, from the [place] facility where the Encounter took place. Date/Time Current Smoking Status Comment [facility] it Feb 08, 2023 10:00 AM VA-TOBACCO FORMER USER [facility] Tobacco Use History This section includes a history of the smoking, or tobacco-related health factors, that were collected on or before the date of the Encounter. The data comes from the [place] facility where the Encounter took place. Date/Time Smoking Status/Tobac co Use Comment Facility Feb 08, 2023 10:00 AM [place]-TOBACCO QUIT 15 YRS OR MORE [facility] [place] [facility] Mar 06, 2022 02:30 PM VA-TOBACCO FORMER USER [facility] [place] [facility] Mar 06, 2022 02:30 PM VA-TOBACCO QUIT 15 YRS OR MORE [facility] [place] [facility] Apr 04, 2021 10:28 AM VA-TOBACCO NEVER USED [place] [facility] [place] [facility] May 03, 2020 02:00 PM VA-TOBACCO NEVER USED [place] [facility] [place] [facility] Feb 25, 2019 08:14 AM VA-TOBACCO FORMER USER [facility] [place] [facility] Feb 25, 2019 08:14 AM VA-TOBACCO QUIT 5 TO < 15 YRS [facility] [place] [facility] Apr 04, 2018 10:41 AM QUIT TOBACCO USE 1-7 YEARS AGO [facility] [place] [facility] Oct 28, 2017 10:18 AM QUIT TOBACCO USE 1-7 YEARS AGO [facility] [place] [facility] Jan 22, 2017 01:08 PM QUIT TOBACCO USE 1-7 YEARS AGO [facility] [place] [facility] Jul 18, 2016 01:34 PM QUIT TOBACCO USE 1-7 YEARS AGO [facility] [place] [facility] January 10, 2016 10:32 AM QUIT TOBACCO USE 1-7 YEARS AGO [facility] [place] [facility] Oct 13, 2015 11:05 AM QUIT TOBACCO USE 1-7 YEARS AGO [facility] [place] [facility] Oct 19, 2014 01:53 PM QUIT TOBACCO USE > 7 YEARS AGO [facility] [place] [facility] January 02, 2014 01:30 AM QUIT TOBACCO USE IN PAST YEAR [place] [facility] [place] [facility] Jun 18, 2013 09:00 AM CURRENT SMOKER 6 cigarettes qd [facility] [place] [facility] Jun 18, 2013 09:00 AM V1-PT DECLINES TOBACCO CESSATION MEDS [facility] [place] [facility] Jun 18, 2013 09:00 AM V1-PT NOT INTERESTED IN QUIT TOBACCO USE [facility] [place] [facility] December 24, 2012 10:51 AM V1-PT DECLINES REF TO TOBACCO CESS [facility] December 24, 2012 10:51 AM V1-PT [facility]CLINES [facility] December 24, 2012 10:51 AM V1-PT THINKING ABOUT QUIT [facility] Jul 15, 2012 10:19 AM QUIT TOBACCO USE IN PAST YEAR [facility] Jan 25, 2012 05:02 PM QUIT TOBACCO USE IN PAST YEAR [facility] Sep 28, 2011 10:09 AM CURRENT SMOKER 5 cigarettes a day [facility] Jun 15, 2011 02:23 PM V1-PT DECLINES REF TO TOBACCO CESS PRGM [facility] Jun 15, 2011 02:23 PM V1-PT READY TO QUIT TOBACCO USE [facility] Apr 13, 2011 10:31 AM V1-PT DECLINES REF TO TOBACCO CESS PRGM [facility] Apr 13, 2011 10:31 AM V1-PT RECEIVES TOBACCO CESS MEDS [facility]IDE [facility] Apr 13, 2011 10:31 AM V1-PT THINKING ABOUT QUIT TOBACCO USE [facility] Oct 16, 2010 08:52 AM QUIT TOBACCO USE IN PAST YEAR [facility] May 12, 2010 02:08 PM V1-PT DECLINES REF TO TOBACCO CESS PRGM [facility] May 12, 2010 02:08 PM V1-PT READY TO QUIT TOBACCO USE [facility] May 12, 2010 12:45 PM CURRENT SMOKER 3 cigarettes a day [facility] Encounter Notes: All associated encounter notes This section contains the clinical notes associated to the Encounter. Date/Time Encounter Note(s) Provider Source January 14, 2024 12:00 AM NONVA CONSULT: LOCAL TITLE: COMMUNITY CARE-CONSULT RESULT NOTE STANDARD TITLE: NONVA CONSULT DATE OF NOTE: JANUARY 14, 2024 ENTRY DATE: FEB 13, 2024@05:53:41 AUTHOR: MADHAVI SANTOS COSIGNER: URGENCY: STATUS: COMPLETED VistA Imaging - Scanned Document SCANNED DOCUMENT SIGNATURE NOT REQUIRED Electronically Filed: 02/13/2024 by: MADHAVI MACHADO
--- OUTSIDE RECORDS SUMMARY | 2024-08-04 17:11 | XMS_ITS | Encounter Summary ---
Author Name [facility] [place] [place] [facility] [place] [facility] [place] Address [address] [place] [address] Care Team Providers Care Forest Economics Professor Name Role Phone CADEN FELIZ Primary Care [...] PLAN I Aug 19, 2019 PLAN I [id number] MEEK,GR ICEL PATIENT [employer] OPTIONS MEDICARE SUPPLEMEN MARCIA PLANM Y Aug 19, 2019 PLANMY [id number] MEEK,GR ICEL PATIENT [employer] OPTIONS MEDICARE SUPPLEMEN MARCIA AARP MEDIC ARE SUPPL Aug 19, 2019 PLAN MY [id number] MEEK,GR ICEL PATIENT A[employer] INS MEDICARE SUPPLEMEN MARCIA PLANM Y Aug 19, 2019 PLANMY [id number] [phone] MEEK,GR ICEL PATIENT AARP MED SUPP MEDICARE SUPPLEMEN MARCIA Jul 19, 2010 PLANMY [id number] MEEK,GR ICEL PATIENT MEDICARE (WNR) MEDICARE () PART B Aug 19, 2008 PART B [id number] [phone] MEEK,GR ICEL PATIENT MEDICARE (WNR) MEDICARE () PART B Aug 19, 2008 PART B [id number] MEEK,GR ICEL PATIENT MEDICARE (WNR) MEDICARE () PART B Aug 19, 2008 PART B [id number] MEEK,GR ICEL PATIENT MEDICARE (WNR) MEDICARE () PART B Aug 19, 2008 PART B [id number] MEEK,GR ICEL PATIENT MEDICARE (WNR) MEDICARE () PART B Aug 19, 2008 PART B [id number] [phone] MEEK,GR ICEL PATIENT MEDICARE (WNR) MEDICARE () PART B Aug 19, 2008 PART B [id number] MEEK,GR ICEL PATIENT MEDICARE (WNR) MEDICARE () PART B Aug 19, 2008 PART B [id number] MEEK,GR ICEL PATIENT MEDICARE (WNR) MEDICARE () PART A December 18, 2003 PART A [id number] [phone] MEEK,GR ICEL PATIENT MEDICARE (WNR) MEDICARE () PART A December 18, 2003 PART A [id number] [phone] MEEK,GR ICEL PATIENT MEDICARE (WNR) MEDICARE () PART A December 18, 2003 PART A [id number] [phone] MEEK,GR ICEL PATIENT MEDICARE (WNR) MEDICARE () PART A December 18, 2003 PART A [id number] [phone] MEEK,GR ICEL PATIENT MEDICARE (WNR) MEDICARE () PART A December 18, 2003 PART A [id number] MEEK,GR ICEL PATIENT MEDICARE (WNR) MEDICARE () PART A December 18, 2003 PART A [id number] SABINE MEEK PATIENT MEDICARE (WNR) MEDICARE (M) PART A December 18, 2003 PART A [id number] [phone] SABINE MEEK PATIENT Selected Encounter This section includes the information on record at [place] for the Encounter. Date/Time Encounter Type Encounter Description Reason Pro vider Source Feb 14, 2024 08:20 AM Outpatient Encounter DENTAL IHE Encounter Template Text not used by [place] Plan of Treatment: Future Appointments (+ 6 months) and Future Tests (+/- 45 days) The Plan of Treatment section includes [facility] care activities [facility] the [facility] [place] [facility] This section includes future appointments and future [...] 17, 2024 12:30 PM AMBULATORY - NONE [place] [facility] [place] [facility] Feb 17, 2024 01:00 PM AMBULATORY - [place]IATRY [place] [facility] [place] [facility] Feb 21, 2024 08:30 AM AMBULATORY - MEDICINE [place] [facility] [place] [facility] Feb 24, 2024 01:00 PM AMBULATORY [facility]ATRY [facility] [place] [facility] Feb 28, 2024 11:30 AM AMBULATORY - MEDICINE [place] [facility] [place] [facility] Mar 02, 2024 01:00 PM AMBULATORY - PS[facility]IATRY [facility] [place] [facility] Mar 06, 2024 09:30 AM AMBULATORY - MEDICINE [place] [facility] [place] [facility] Mar 09, 2024 01:00 PM AMBULATORY - [place]IATRY [place] [facility] [place] [facility] Mar 11, 2024 03:15 PM AMBULATORY - MEDICINE [place] [facility] [place] [facility] Mar 18, 2024 08:30 AM AMBULATORY - MEDICINE [place] [facility] [place] [facility] Mar 23, 2024 01:00 PM AMBULATORY - [place]IATRY [place] [facility] [place] [facility] Mar 30, 2024 01:00 PM AMBULATORY - [place]IATRY [place] [facility] [place] [facility] Apr 06, 2024 12:30 PM AMBULATORY - MEDICINE [place] [facility] [place] [facility] Apr 06, 2024 01:00 PM AMBULATORY - MEDICINE [place] [facility] [place] [facility] Apr 23, 2024 08:40 AM AMBULATORY - PS[place]IATRY [place] [facility] [place] [facility] May 08, 2024 08:00 AM AMBULATORY - MEDICINE [place] [facility] [place] [facility] May 11, 2024 01:00 PM AMBULATORY - [place]IATRY [place] [facility] [place] [facility] May 18, 2024 01:00 PM AMBULATORY [place]IATRY [place] [facility] [place] [facility] May 20, 2024 09:30 AM [facility] May 25, 2024 01:00 PM [facility] Active, Pending, and Scheduled Orders This section includes a listing of several types of active, pending, and scheduled orders, including clinic medications orders, diagnostic test orders, procedure orders and consult orders; where the start date of the order is 45 days before the date of the Encounter or 45 days after the date of theEncounter. The data comes from all [place] treatment facilities. Test Date/Time Test Type Test Details Facility Name Feb 28, 2024 12:49 PM Consult Order COMM[facility]ITY CARE-CARDIOLOGY Cons Food Adviser's Choice [facility] Lab Results: +/- 30 days of the encounter This section includes the Chemistry and Hematology Lab Results on record with [place] for the patient. Radiology Reports and Pathology Reports are provided separately, in subsequent sections. Lab Results This section contains the Chemistry/Hematology Results that were resulted 30 days before or 30 daysafter the date of the Encounter. Date/Time Source Result Type Result - Unit Interpretation Reference Range Comment Feb 28, 2024 01:01 PM [facility] THYROID T4 FREE(FT4) (WROX) Specimen Type: SERUM No comment entered. Ordering Provider: CADEN FELIZ Report Released Date/Time: Feb 28, 2024 12:47 PM Reporting Lab: [facility] [address] [facility] [address] Performing Lab: [facility] [address] [facility] [address] THYROID T4 FREE(FT4) (WROX) 0.93 ng/dL 0.6-1.6 Feb 28, 2024 01:01 PM [facility] TSH Specimen Type: SERUM No comment entered. Ordering Provider: CADEN FELIZ Report Released Date/Time: Feb 28, 2024 12:47 PM Reporting Lab: [address] [address] Performing Lab: [address] [address] TSH 0.54 u[IU]/mL 0.35-5.00 Feb 28, 2024 01:01 PM [facility] LIVER FUNCTION Specimen Type: SERUM No comment entered. Ordering Provider: CADEN FELIZ Report Released Date/Time: Feb 28, 2024 12:47 PM Reporting Lab: [address] [address] Performing Lab: [address] [address] PROTEIN,TOTAL 7.0 g/dL 6.0-8.3 ALBUMIN 4.2 g/dL 3.5-5.0 ALKALINE PHOSPHATASE 62 U/L 40-150 AST 15 U/L 5-34 ALT 20 U/L BILIRUBIN, TOTAL 0.4 mg/dL 0.2-1.2 Feb 28, 2024 01:01 PM [facility] HEMOGLOBIN A1C PANEL Specimen [...] Feb 28, 2024 12:47 PM Reporting Lab: [address] [address] Performing Lab: [facility] [address] [facility] [address] HEMOGLOBIN A1C 6.2 H 4.0-5.6 Feb 28, 2024 01:01 PM [facility] BASIC METABOLIC PANEL (non-fasting) Specimen Type: SERUM No comment entered. Ordering Provider: CADEN FELIZ Report Released Date/Time: Feb 28, 2024 12:47 PM Reporting Lab: [address] [address] Performing Lab: [address] [address] UREA NITROGEN 10 mg/dL 7-25 GLUCOSE 148 mg/dL H 65-100 SODIUM 140 mmol/L 135-145 POTASSIUM 4.7 mmol/L 3.5-5.0 CHLORIDE 101 mmol/L 100-110 CO2 30 meq/L 20-30 CREATININE, Serum 0.70 mg/dL 0.50-1.40 eGFR(CKD-EPI 2020) >90 mL/min >60 Feb 28, 2024 01:01 PM [facility] CBC AND DIFF (AUTO) Specimen Type: BLOOD No comment entered. Ordering Provider: CADEN FELIZ Report Released Date/Time: Feb 28, 2024 12:47 PM Reporting Lab: [address] [address] Performing Lab: [address] [address] WBC 3.39 10*3/uL L 4.50-11.00 RBC 3.84 [...] took place. Date/Time Current Smoking Status Comment [facility] Feb 08, 2023 10:00 AM VA-TOBACCO FORMER USER [place] [facility] [place] [facility] Tobacco Use History This [...] YRS OR MORE [facility] [place] [facility] Mar 06, 2022 02:30 PM VA-TOBACCO FORMER USER [facility] [place] [facility] Mar 06, 2022 02:30 PM VA-TOBACCO QUIT 15 YRS OR MORE [facility] [place] [facility] Apr 04, 2021 10:28 AM VA-TOBACCO NEVER USED [facility] [place] [facility] May 03, 2020 02:00 PM VA-TOBACCO NEVER USED [facility] [place] [facility] Feb 25, 2019 08:14 AM VA-TOBACCO FORMER USER [facility] [place] [facility] Feb 25, 2019 08:14 AM VA-TOBACCO QUIT 5 TO < 15 YRS [facility] [place] [facility] Apr 04, 2018 10:41 AM QUIT TOBACCO USE 1-7 YEARS AGO [place] [facility] [place] [facility] Oct 28, 2017 10:18 AM QUIT TOBACCO USE 1-7 YEARS AGO [place] [facility] [place] [facility] Jan 22, 2017 01:08 PM QUIT TOBACCO USE 1-7 YEARS AGO [facility] [place] [facility] Jul 18, 2016 01:34 PM QUIT TOBACCO USE 1-7 YEARS AGO [facility] [place] [facility] January 10, 2016 10:32 AM QUIT TOBACCO USE 1-7 YEARS AGO [facility] [place] [facility] Oct 13, 2015 11:05 AM QUIT TOBACCO USE 1-7 YEARS AGO [facility] [place] [facility] Oct 19, 2014 01:53 PM QUIT TOBACCO USE > 7 YEARS AGO [facility] [place] [facility] January 02, 2014 01:30 AM QUIT TOBACCO USE IN PAST YEAR [place] [facility] [place] [facility] Jun 18, 2013 09:00 AM CURRENT SMOKER 6 cigarettes qd [place] [facility] [place] [facility] Jun 18, 2013 09:00 AM V1-PT DECLINES [facility]ACCO [facility]ESS[facility] [place] [facility] Jun 18, 2013 09:00 AM V1-PT NOT INTERESTED IN QUIT TOBACCO USE [place] [facility] [place] [facility] December 24, 2012 10:51 AM V1-PT DECLINES REF TO TOBACCO CESS PRGM [place] [facility] [place] [facility] December 24, 2012 10:51 AM V1-PT DECLINES TOBACCO CESSATION MEDS [place] [facility] [place] [facility] December 24, 2012 10:51 AM V1-PT THINKING ABOUT QUIT TOBACCO USE [facility] [place] [facility] Jul 15, 2012 10:19 AM QUIT TOBACCO USE IN PAST YEAR [place] [facility] [place] [facility] Jan 25, 2012 05:02 PM QUIT TOBACCO USE IN PAST YEAR [place] [facility] [place] [facility] Sep 28, 2011 10:09 AM CURRENT SMOKER 5 cigarettes a day [facility] Jun 15, 2011 02:23 PM V1-PT DECLINES REF TO TOBACCO CESS PRGM [facility] Jun 15, 2011 02:23 PM V1-PT READY TO QUIT TOBACCO USE [facility] Apr 13, 2011 10:31 AM V1-PT DECLINES REF TO TOBACCO CESS PRGM [facility] Apr 13, 2011 10:31 AM V1-PT RECEIVES TOBACCO CESS MEDS OUTSIDE [facility] Apr 13, 2011 10:31 AM V1-PT THINKING ABOUT QUIT TOBACCO USE [facility] Oct 16, 2010 08:52 AM QUIT TOBACCO USE IN PAST YEAR [facility] May 12, 2010 02:08 PM V1-PT DECLINES REF TO TOBACCO CESS PRGM [facility] May 12, 2010 02:08 PM V1-PT READY TO QUIT TOBACCO USE [facility] May 12, 2010 12:45 PM [...] the Encounter. The data comes from all [facility] facilities. Date/Time Radiology Report Provider Source Feb 28, 2024 12:54 PM CHEST (2 VIEWS): PEBBLES MEEK Cristina [id number] -[id number] F Exm Date: FEB 28, 2024@12:54 Req Phys: CADEN FELIZ Loc: CWM/NO/PACT 6 [facility] (Req'g Loc) Img Loc: [facility]/BUILDING 1 Service: Unknown [facility] , (Case [id number] COMPLETE) CHEST (2 VIEWS) (RAD Detailed) CPT:59071 Reason for Study: 73yo with ashtma and genearlized puritis Clinical History: to check lung dumont and lympthadenopathy Report Status: Verified Date Reported: FEB 28, 2024 Date Verified: FEB 28, 2024 Entertainment Agent E-Sig:/[email or web address]/NEMO RODRIGUEZ JR Report: Study: PA and lateral [...] Primary Interpreting Staff: NEMO RODRIGUEZ JR, Radiologist (Entertainment Agent) /NEMO WEISS JR [facility] Encounter Notes: All associated encounter notes This section contains the clinical notes associated to the Encounter. Date/Time Encounter Note(s) Provider Source Feb 14, 2024 08:20 AM DENTISTRY TELEPHON E ENCOUNTER NOTE: LOCAL TITLE: TELEPHONE NOTE/DENTAL STANDARD TITLE: DENTISTRY TELEPHONE ENCOUNTER NOTE DATE OF NOTE: FEB 14, 2024@08:20 ENTRY DATE: FEB 14, 2024@08:20:52 AUTHOR: SHANTA ANTOINE EXP COSIGNER: URGENCY: STATUS: COMPLETED Spoke with pt to confirm dental appointment on 02/17/2024 at 12:30 pm. /krysta/ SHANTA ANTOINE ADVANCED FAMILY DEVELOPMENT SPECIALIST Signed: 02/14/2024 08:21 SHANTA ANTOINE [facility]
--- OUTSIDE RECORDS SUMMARY | 2024-08-04 17:11 | XMS_ITS ---
Author Name [facility] [place] Organization [facility] [place] Address [address] [place] [address] Care Team Providers Care Finance Director Name Role Phone CADEN FELIZ Primary [...] PLAN I Aug 19, 2019 PLAN I [id number] [phone] MEEK,GR ICEL PATIENT [employer] OPTIONS MEDICARE SUPPLEMEN MARCIA PLANM Y Aug 19, 2019 PLANMY [id number] MEEK,GR ICEL PATIENT [employer] OPTIONS MEDICARE SUPPLEMEN MARCIA AARP MEDIC ARE SUPPL Aug 19, 2019 PLAN MY [id number] [phone] MEEK,GR ICEL PATIENT A[employer] INS MEDICARE SUPPLEMEN MARCIA PLANM Y Aug 19, 2019 PLANMY [id number] MEEK,GR ICEL PATIENT AARP MED SUPP MEDICARE SUPPLEMEN MARCIA Jul 19, 2010 PLANMY [id number] [phone] MEEK,GR ICEL PATIENT MEDICARE (WNR) MEDICARE () PART B Aug 19, 2008 PART B [id number] [phone] MEEK,GR ICEL PATIENT MEDICARE (WNR) MEDICARE () PART B Aug 19, 2008 PART B [id number] MEEK,GR ICEL PATIENT MEDICARE (WNR) MEDICARE () PART B Aug 19, 2008 PART B [id number] MEEK,GR ICEL PATIENT MEDICARE (WNR) MEDICARE () PART B Aug 19, 2008 PART B [id number] MEEK,GR ICEL PATIENT MEDICARE (WNR) MEDICARE () PART B Aug 19, 2008 PART B [id number] MEEK,GR ICEL PATIENT MEDICARE (WNR) MEDICARE () PART B Aug 19, 2008 PART B [id number] [phone] MEEK,GR ICEL PATIENT MEDICARE (WNR) MEDICARE () PART B Aug 19, 2008 PART B [id number] [phone] MEEK,GR ICEL PATIENT MEDICARE (WNR) MEDICARE () PART A December 18, 2003 PART A [id number] [phone] MEEK,GR ICEL PATIENT MEDICARE (WNR) MEDICARE () PART A December 18, 2003 PART A [id number] MEEK,GR ICEL PATIENT MEDICARE (WNR) MEDICARE () PART A December 18, 2003 PART A [id number] MEEK,GR ICEL PATIENT MEDICARE (WNR) MEDICARE () PART A December 18, 2003 PART A [id number] MEEK,GR ICEL PATIENT MEDICARE (WNR) MEDICARE () PART A December 18, 2003 PART A [id number] [phone] MEEK,GR ICEL PATIENT MEDICARE (WNR) MEDICARE () PART A December 18, 2003 PART A [id number] SABINE MEEK PATIENT MEDICARE (WNR) MEDICARE (M) PART A December 18, 2003 PART A [id number] [phone] SABINE MEEK PATIENT Selected Encounter This section includes the information on record at [place] for the Encounter. 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 Plan of Treatment: Future Appointments (+ 6 months) and Future Tests (+/- 45 days) The Plan of Treatment section includes future care activities for the patient from all [place] [facility] This section includes future appointments and future orders which are active, pending or scheduled. Future Appointments This section includes appointments that were scheduled to occur 6 months from the date of the Encounter, up to a maximum of 20 appointments. The data comes from all [place] treatment facilities. Appointment Date/Time Appointment Type Appointme nt Facility Name Feb 21, 2024 08:30 AM AMBULATORY - MEDICINE [facility] [place] [facility] Feb 24, 2024 01:00 PM AMBULATORY - PSYCHIATRY [place] [facility] [place] [facility] Feb 28, 2024 11:30 AM AMBULATORY - MEDICINE [place] [facility] [place] [facility] Mar 02, 2024 01:00 PM AMBULATORY - PSYCHIATRY [place] [facility] [place] [facility] Mar 06, 2024 09:30 AM AMBULATORY - MEDICINE [place] [facility] [place] [facility] Mar 09, 2024 01:00 PM AMBULATORY - PSYCHIATRY [place] [facility] [place] [facility] Mar 11, 2024 03:15 PM AMBULATORY - MEDICINE [facility] [place] [facility] Mar 18, 2024 08:30 AM AMBULATORY - MEDICINE [facility] [place] [facility] Mar 23, 2024 01:00 PM AMBULATORY - PSYCHIATRY [facility] [place] [facility] Mar 30, 2024 01:00 PM AMBULATORY - PSYCHIATRY [facility] [place] [facility] Apr 06, 2024 12:30 PM AMBULATORY - MEDICINE [place] [facility] [place] [facility] Apr 06, 2024 01:00 PM AMBULATORY - MEDICINE [place] [facility] [place] [facility] Apr 23, 2024 08:40 AM AMBULATORY - PSYCHIATRY [facility] [place] [facility] May 08, 2024 08:00 AM AMBULATORY - MEDICINE [place] [facility] [place] [facility] May 11, 2024 01:00 PM AMBULATORY - PSYCHIATRY [place] [facility] [place] [facility] May 18, 2024 01:00 PM AMBULATORY - PSYCHIATRY [place] [facility] [place] [facility] May 20, 2024 09:30 AM AMBULATORY - MEDICINE [place] C [facility] [place] [facility] May 25, 2024 01:00 PM AMBULATORY - PSYCHIATRY [place] [facility] [place] [facility] Jun 08, 2024 09:30 AM AMBULATORY - PSYCHIATRY [place] [facility] [place] [facility] Jun 08, 2024 01:00 PM AMBULATORY - PSYCHIATRY [place] [facility] [place] [facility] Active, Pending, and Scheduled Orders This section includes a listing of several types of active, pending, and scheduled orders, including clinic medications orders, diagnostic test orders, procedure orders and consult orders; where the start date of the order is 45 days before the date of the Encounter or 45 days after the date of theEncounter. The data comes from all [place] treatment facilities. Test Date/Time Test Type Test Details Facility Name Feb 28, 2024 12:49 PM Consult Order COMMUNITY CARE-CARDIOLOGY Cons Criminology Teacher's Choice [facility] [place] [facility] Lab Results: +/- 30 days [...] Range Comment Feb 28, 2024 01:01 PM [facility] THYROID T4 FREE(FT4) (WROX) Specimen Type: SERUM No comment entered. Ordering Provider: CADEN FELIZ Report Released Date/Time: Feb 28, 2024 12:47 PM Reporting [facility] [address] [address] Performing Lab: [facility] [address] [address] THYROID T4 FREE(FT4) (WROX) 0.93 ng/dL 0.6-1.6 Feb 28, 2024 01:01 PM [facility] TSH Specimen Type: SERUM No comment entered. Ordering Provider: CADEN FELIZ Report Released Date/Time: Feb 28, 2024 12:47 PM Reporting Lab: [address] [address] Performing Lab: [address] [address] TSH 0.54 u[IU]/mL 0.35-5.00 Feb 28, 2024 01:01 PM [facility] LIVER FUNCTION Specimen Type: SERUM No comment entered. Ordering Provider: CADEN FELIZ Report Released Date/Time: Feb 28, 2024 12:47 PM Reporting Lab: [address] [address] Performing Lab: [address] [address] PROTEIN,TOTAL 7.0 g/dL 6.0-8.3 ALBUMIN 4.2 g/dL [...] Feb 28, 2024 12:47 PM Reporting Lab: [address] [address] Performing Lab: [address] [address] HEMOGLOBIN A1C 6.2 H 4.0-5.6 Feb 28, 2024 01:01 PM [facility] BASIC METABOLIC PANEL (non-fasting) Specimen Type: SERUM No comment entered. Ordering Provider: CADEN FELIZ Report Released Date/Time: Feb 28, 2024 12:47 PM Reporting Lab: [address] [address] Performing Lab: [address] [address] UREA NITROGEN 10 mg/dL 7-25 GLUCOSE 148 [...] Feb 28, 2024 12:47 PM Reporting Lab: [address] [address] Performing Lab: [place] [id number] WBC 3.39 10*3/uL L 4.50-11.00 RBC 3.84 [...] took place. Date/Time Current Smoking Status Comment [facility] Feb 08, 2023 10:00 AM VA-TOBACCO FORMER USER [facility] Tobacco Use History This section includes a history of the smoking, or tobacco-related health factors, that were collected on or before the date of the Encounter. The data comes from the [place] facility where the Encounter took place. Date/Time Smoking Status/Tobac co Use Comment [facility] Feb 08, 2023 10:00 AM [place]-TOBACCO QUIT 15 YRS OR MORE [facility] Mar 06, 2022 02:30 PM VA-TOBACCO FORMER USER [facility] Mar 06, 2022 02:30 PM VA-TOBACCO QUIT 15 YRS OR MORE [place] [facility] [place] [facility] Apr 04, 2021 10:28 AM VA-TOBACCO NEVER USED [place] [facility] [place] [facility] May 03, 2020 02:00 PM VA-TOBACCO NEVER USED [place] [facility] [place] [facility] Feb 25, 2019 08:14 AM VA-TOBACCO FORMER USER [place] [facility] [place] [facility] Feb 25, 2019 08:14 AM VA-TOBACCO QUIT 5 TO < 15 YRS [facility] [place] [facility] Apr 04, 2018 10:41 AM QUIT TOBACCO USE 1-7 YEARS AGO [facility] [place] [facility] Oct 28, 2017 10:18 AM QUIT TOBACCO USE 1-7 YEARS AGO [facility] [place] [facility] Jan 22, 2017 01:08 PM QUIT TOBACCO USE 1-7 YEARS AGO [facility] [place] [facility] Jul 18, 2016 01:34 PM QUIT TOBACCO USE 1-7 YEARS AGO [facility] [place] [facility] January 10, 2016 10:32 AM QUIT TOBACCO USE 1-7 YEARS AGO [facility] [place] [facility] Oct 13, 2015 11:05 AM QUIT TOBACCO USE 1-7 YEARS AGO [place] [facility] [place] [facility] Oct 19, 2014 01:53 PM QUIT TOBACCO USE > 7 YEARS AGO [facility] [place] [facility] January 02, 2014 01:30 AM QUIT TOBACCO USE IN PAST YEAR [place] [facility] [place] [facility] Jun 18, 2013 09:00 AM CURRENT SMOKER 6 cigarettes qd [place] [facility] [place] [facility] Jun 18, 2013 09:00 AM V1-PT DECLINES TOBACCO CESSATION MEDS [place] [facility] [place] [facility] Jun 18, 2013 09:00 AM V1-PT NOT INTERESTED IN QUIT TOBACCO USE [facility] [place] [facility] December 24, 2012 10:51 AM V1-PT DECLINES REF TO TOBACCO CESS PRGM [place] [facility] [place] [facility] December 24, 2012 10:51 AM V1-PT DECLINES TOBACCO CESSATION MEDS [place] [facility] [place] [facility] December 24, 2012 10:51 AM V1-PT THINKING ABOUT QUIT TOBACCO USE [facility] Jul 15, 2012 10:19 AM QUIT TOBACCO USE IN PAST YEAR [facility] Jan 25, 2012 05:02 PM QUIT TOBACCO USE IN PAST YEAR [facility] Sep 28, 2011 10:09 AM [...] the Encounter. The data comes from all [facility] facilities. Date/Time Radiology Report Provider Source Feb 28, 2024 12:54 PM CHEST (2 VIEWS): PEBBLES MEEK [id number] -1950 F Exm Date: FEB 28, 2024@12:54 Req Phys: CADEN FELIZ Loc: CWM/NO/PACT 6 WH (Req'g Loc) Img Loc: [facility]/BUILDING 1 Service: Unknown [facility] , (Case [id number] COMPLETE) CHEST (2 VIEWS) (RAD Detailed) CPT:87350 Reason for Study: 73yo with ashtma and genearlized puritis Clinical History: to check lung dumont and lympthadenopathy Report Status: Verified Date Reported: FEB 28, 2024 Date Verified: FEB 28, 2024 [place] E-Sig:/ES/NEMO RODRIGUEZ JR Report: Study: PA and [...] Primary Interpreting Staff: NEMO RODRIGUEZ JR, Radiologist (Pole Shaver) /EANEMO BARROS JR [facility] Encounter Notes: All associated encounter notes This section contains the clinical notes associated to the Encounter. Date/Time Encounter Note(s) Provider Source Feb 17, 2024 05:12 PM DENTISTRY NOTE: LOCAL TITLE: DENTAL NOTE STANDARD TITLE: DENTISTRY NOTE DATE OF NOTE: FEB 17, 2024@17:12 ENTRY DATE: FEB 17, 2024@17:16:32 AUTHOR: HAL GARCIA EXP COSIGNER: URGENCY: STATUS: COMPLETED Patient Name: PEBBLES MEEK, : 1950, Age: 73 Visit: S: Feb 17, 2024@12:30 [facility] DENTAL DMD 4. Primary PCE Diagnosis: K08.123 (COMPLETE LOSS OF TEETH DUE TO PERIODONTAL DISEASES, CLASS III). Dental Category: 15-OPC, Class IV. Treatment Status: Maintenance. Completed Care: ([id number]) OFFICE VISIT DURING HOURS. 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 capsules amoxicillin one hour prior to dental appt. due to right knee replacement. 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 Reviewed the event again with patinet she feels comfortable knowign it likely passed. advised it is very thin and small and not captured easily by imaging within the body cavity. pt understood. pt feels denture is better than before reline and pickup of locators, but still has movement and is not fully reliable. Eval today shows all housings in place, still AP rocking but less, adn still with some challenges for full seating and stability. Agree that addign two more implants for a fixed alternative an appropriate next step. nv- hygiene and reevaluation as implant progess occurs /jeana/ BRYSON GREWAL Hostel Parent, Chief Dental Service Signed: 02/17/2024 17:16 BRYSON GARCIA [facility]
[2024-08-04 17:12] LABS: Alanine Aminotransferase 24 U/L (0-31); Albumin Level 4.3 g/dL (3.5-5.0); Alkaline Phosphatase 79 U/L (39-117); Anion Gap 12 (12-20); Aspartate Amino Transferase 22 U/L (5-31); Bilirubin Total 0.2 mg/dL (0.0-1.0); Blood Urea Nitrogen 17 mg/dL (9-16); Calcium 10.2 mg/dL (8.4-10.2); Carbon Dioxide 31 mmol/L (22-29); Chloride 101 mmol/L (96-108); Creatinine Clr Calc Pharmacy 62.5; Estimated Glomerular Filt Rate > 60; Glucose Random 115 mg/dL (60-115); Lipase 23 U/L (8-78); Potassium 5.1 mmol/L (3.3-5.1); Sodium 139 mmol/L (135-145); Total Protein 7.5 g/dL (6.5-8.0)
--- OUTSIDE RECORDS SUMMARY | 2024-08-04 17:12 | XMS_ITS | Encounter Summary ---
Author Name [facility] [place] Organization [facility] [place] [facility] [place] Address [address] [place] [address] Care Team Providers Care Tree Shear Operator Name Role Phone CADEN FELIZ Primary [...] PLAN I Aug 19, 2019 PLAN I [id number] MEEK,GR ICEL PATIENT [employer] OPTIONS MEDICARE SUPPLEMEN MARCIA PLANM Y Aug 19, 2019 PLANMY [id number] MEEK,GR ICEL PATIENT [employer] OPTIONS MEDICARE SUPPLEMEN MARCIA AARP MEDIC ARE SUPPL Aug 19, 2019 PLAN MY [id number] MEEK,GR ICEL PATIENT AARP INS MEDICARE SUPPLEMEN MARCIA PLANM Y Aug 19, 2019 PLANMY [id number] MEEK,GR ICEL PATIENT AARP MED SUPP MEDICARE SUPPLEMEN MARCIA Jul 19, 2010 [employer] [id number] MEEK,GR ICEL PATIENT MEDICARE (WNR) MEDICARE () PART B Aug 19, 2008 PART B [id number] MEEK,GR ICEL PATIENT MEDICARE (WNR) MEDICARE () PART B Aug 19, 2008 PART B [id number] [phone] MEEK,GR ICEL PATIENT MEDICARE (WNR) MEDICARE () PART B Aug 19, 2008 PART B [id number] MEEK,GR ICEL PATIENT MEDICARE (WNR) MEDICARE () PART B Aug 19, 2008 PART B [id number] MEEK,GR ICEL PATIENT MEDICARE (WNR) MEDICARE () PART B Aug 19, 2008 PART B [id number] [phone] MEEK,GR ICEL PATIENT MEDICARE (WNR) MEDICARE () PART B Aug 19, 2008 PART B [id number] [phone] MEEK,GR ICEL PATIENT MEDICARE (WNR) MEDICARE () PART B Aug 19, 2008 PART B [id number] MEEK,GR ICEL PATIENT MEDICARE (WNR) MEDICARE () PART A December 18, 2003 PART A [id number] [phone] MEEK,GR ICEL PATIENT MEDICARE (WNR) MEDICARE () PART A December 18, 2003 PART A [id number] [phone] MEEK,GR ICEL PATIENT MEDICARE (WNR) MEDICARE () PART A December 18, 2003 PART A [id number] [phone] MEEK,GR ICEL PATIENT MEDICARE (WNR) MEDICARE () PART A December 18, 2003 PART A [id number] MEEK,GR ICEL PATIENT MEDICARE (WNR) MEDICARE () PART A December 18, 2003 PART A [id number] MEEK,GR ICEL PATIENT MEDICARE (WNR) MEDICARE (M) PART A December 18, 2003 PART A [id number] [phone] SABINE MEEK ICEJacky PATIENT MEDICARE (WNR) MEDICARE (M) PART A December 18, 2003 PART A [id number] [phone] SABINE MEEK PATIENT Selected Encounter This section includes the information on record at [place] for the Encounter. 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 Date/Time Primary/Secondary Diagnosis Diagnosis Name Provider Source Feb 19, 2024 08:56 AM PRIMARY Insomnia due to other mental disorder IRASEMA DAMON [place] [facility] [place] [facility] Feb 19, 2024 08:56 AM SECONDARY Mental disorder, not otherwise specified IRASEMA DAMON [facility] [place] [facility] Feb 19, 2024 08:56 AM SECONDARY Other recurrent depressive disorders IRASEMA DAMON BO [place] [facility] [place] [facility] Feb 19, 2024 08:56 AM SECONDARY Post-traumatic stress disorder, chronic IRASEMA DAMON [place] [facility] [place] [facility] Plan of Treatment: Future Appointments (+ 6 months) and Future Tests (+/- 45 days) The Plan of Treatment section includes future care activities for the [facility] [place] [facility] This section includes future appointments and [...] 21, 2024 08:30 AM AMBULATORY - MEDICINE [place] [facility] [place] [facility] Feb 24, 2024 01:00 PM AMBULATORY - PSYCHIATRY [place] [facility] [place] [facility] Feb 28, 2024 11:30 AM AMBULATORY - MEDICINE [place] [facility] [place] [facility] Mar 02, 2024 01:00 PM AMBULATORY - PSYCHIATRY [facility] [place] [facility] Mar 06, 2024 09:30 AM AMBULATORY - MEDICINE [facility] [place] [facility] Mar 09, 2024 01:00 PM AMBULATORY - PSYCHIATRY [facility] [place] [facility] Mar 11, 2024 03:15 PM AMBULATORY - MEDICINE [facility] [place] [facility] Mar 18, 2024 08:30 AM AMBULATORY - MEDICINE [facility] [place] [facility] Mar 23, 2024 01:00 PM AMBULATORY - PSYCHIATRY [facility] [place] [facility] Mar 30, 2024 01:00 PM AMBULATORY - PSYCHIATRY [facility] [place] [facility] Apr 06, 2024 12:30 PM AMBULATORY - MEDICINE [facility] [place] [facility] Apr 06, 2024 01:00 PM AMBULATORY - MEDICINE [facility] [place] [facility] Apr 23, 2024 08:40 AM AMBULATORY - PSYCHIATRY [facility] [place] [facility] May 08, 2024 08:00 AM AMBULATORY - MEDICINE [facility] [place] [facility] May 11, 2024 01:00 PM AMBULATORY - PSYCHIATRY [facility] [place] [facility] May 18, 2024 01:00 PM AMBULATORY - PSYCHIATRY [facility] [place] [facility] May 20, 2024 09:30 AM AMBULATORY - MEDICINE [facility] [place] [facility] May 25, 2024 01:00 PM AMBULATORY - PSYCHIATRY [facility] [place] [facility] Jun 08, 2024 09:30 AM AMBULATORY - PSYCHIATRY [facility] [place] [facility] Jun 08, 2024 01:00 PM AMBULATORY - PSYCHIATRY [facility] [place] [facility] Active, Pending, and Scheduled Orders This section includes a listing of several types of active, pending, and scheduled orders, including clinic medications orders, diagnostic test orders, procedure orders and consult orders; where the start date of the order is 45 days before the date of the Encounter or 45 days after the date of theEncounter. The data comes from all [place] treatment facilities. Test Date/Time Test Type Test Details Facility Name Feb 28, 2024 12:49 PM Consult Order COMMUNITY CARE-CARDIOLOGY Cons Log Stacker Operator's Choice [facility] [place] [facility] Lab Results: +/- 30 days of the encounter This section includes the Chemistry and Hematology Lab Results on record with [place] for the patient. Radiology Reports and Pathology Reports are provided separately, in subsequent sections. Lab Results This section contains the Chemistry/Hematology Results that were resulted 30 days before or 30 daysafter the date of the Encounter. Date/Time Source Result Type Result - Unit Interpretation Reference Range Comment Feb 28, 2024 01:01 PM [facility] THYROID T4 FREE(FT4) (WROX) Specimen Type: SERUM No comment entered. Ordering Provider: CADEN FELIZ Report Released Date/Time: Feb 28, 2024 12:47 PM Reporting Lab: [facility] [address] [facility] [address] Performing Lab: [facility] [address] [facility] [address] THYROID T4 FREE(FT4) (WROX) 0.93 ng/dL 0.6-1.6 Feb 28, 2024 01:01 PM [facility] TSH Specimen Type: SERUM No comment entered. Ordering Provider: CADEN FELIZ Report Released Date/Time: Feb 28, 2024 12:47 PM Reporting [facility]: [facility] [address] [facility] [address] Performing Lab: [address] [address] TSH 0.54 u[IU]/mL 0.35-5.00 Feb 28, 2024 01:01 PM [facility] LIVER FUNCTION Specimen Type: SERUM No comment entered. Ordering Provider: CADEN FELIZ Report Released Date/Time: Feb 28, 2024 12:47 PM Reporting Lab: [address] [address] Performing Lab: [address] [address] PROTEIN,TOTAL 7.0 g/dL 6.0-8.3 ALBUMIN 4.2 g/dL 3.5-5.0 ALKALINE PHOSPHATASE 62 U/L 40-150 AST 15 U/L 5-34 ALT 20 U/L BILIRUBIN, TOTAL 0.4 mg/dL 0.2-1.2 Feb 28, 2024 01:01 PM [facility] HEMOGLOBIN A1C PANEL Specimen Type: BLOOD Comment: [...] Feb 28, 2024 12:47 PM Reporting Lab: [address] [address] Performing Lab: [address] [address] HEMOGLOBIN A1C 6.2 H 4.0-5.6 Feb 28, 2024 01:01 PM [facility] BASIC METABOLIC PANEL (non-fasting) Specimen Type: SERUM No comment entered. Ordering Provider: CADEN FELIZ Report Released Date/Time: Feb 28, 2024 12:47 PM Reporting Lab: [address] [address] Performing Lab: [address] [address] UREA NITROGEN 10 mg/dL 7-25 GLUCOSE 148 mg/dL H 65-100 SODIUM 140 mmol/L 135-145 POTASSIUM 4.7 mmol/L 3.5-5.0 CHLORIDE 101 mmol/L 100-110 CO2 30 meq/L 20-30 CREATININE, Serum 0.70 mg/dL 0.50-1.40 eGFR(CKD-EPI 2020) >90 mL/min >60 Feb 28, 2024 01:01 PM [facility] CBC AND DIFF (AUTO) Specimen Type: BLOOD No comment entered. Ordering Provider: CADEN FELIZ Report Released Date/Time: Feb 28, 2024 12:47 PM Reporting Lab: [facility] [address] [address] Performing Lab: [facility] [address] [facility] [address] WBC 3.39 10*3/uL L 4.50-11.00 RBC 3.84 [...] 08, 2023 10:00 AM VA-TOBACCO FORMER USER [facility] Tobacco Use History This section includes a history of the smoking, or tobacco-related health factors, that were collected on or before the date of the Encounter. The data comes from the [place] facility where the Encounter took place. Date/Time Smoking Status/Tobac co Use Comment Facility Feb 08, 2023 10:00 AM VA-TOBACCO QUIT 15 YRS OR MORE [place] [facility] [place] [facility] Mar 06, 2022 02:30 PM VA-TOBACCO FORMER USER [place] [facility] [place] [facility] Mar 06, 2022 02:30 PM VA-TOBACCO QUIT 15 YRS OR MORE [place] [facility] [place] [facility] Apr 04, 2021 10:28 AM VA-TOBACCO NEVER USED [place] [facility] [place] [facility] May 03, 2020 02:00 PM VA-TOBACCO NEVER USED [place] [facility] [place] [facility] Feb 25, 2019 08:14 AM VA-TOBACCO FORMER USER [place] [facility] [place] [facility] Feb 25, 2019 08:14 AM VA-TOBACCO QUIT 5 TO < 15 YRS [place] [facility] [place] [facility] Apr 04, 2018 10:41 AM QUIT TOBACCO USE 1-7 YEARS AGO [facility] [place] [facility] Oct 28, 2017 10:18 AM QUIT TOBACCO USE 1-7 YEARS AGO [place] [facility] [place] [facility] Jan 22, 2017 01:08 PM QUIT TOBACCO USE 1-7 YEARS AGO [place] [facility] [place] [facility] Jul 18, 2016 01:34 PM QUIT TOBACCO USE 1-7 YEARS AGO [place] [facility] [place] [facility] January 10, 2016 10:32 AM QUIT TOBACCO USE 1-7 YEARS AGO [facility] [place] [facility] Oct 13, 2015 11:05 AM QUIT TOBACCO USE 1-7 YEARS AGO [place] [facility] [place] [facility] Oct 19, 2014 01:53 PM QUIT TOBACCO USE > 7 YEARS AGO [facility] [place] [facility] January 02, 2014 01:30 AM QUIT TOBACCO USE IN PAST YEAR [place] [facility] [place] [facility] Jun 18, 2013 09:00 AM CURRENT SMOKER 6 cigarettes qd [place] [facility] [place] [facility] Jun 18, 2013 09:00 AM V1-PT DECLINES TOBACCO CESSATION MEDS [facility] Jun 18, 2013 09:00 AM V1-PT NOT INTERESTED IN QUIT TOBACCO USE [facility] December 24, 2012 10:51 AM V1-PT DECLINES REF TO TOBACCO CESS PRGM [facility] December 24, 2012 10:51 AM V1-PT DECLINES TOBACCO CESSATION MEDS [facility] MICN [facility] December 24, 2012 10:51 AM V1-PT THINKING ABOUT QUIT TOBACCO USE [facility] MICN [facility] Jul 15, 2012 10:19 AM QUIT TOBACCO USE [facility]ST [facility]AR [facility] Jan 25, 2012 05:02 PM QUIT TOBACCO USE IN PAST YEAR [facility] MICN [facility] Sep 28, 2011 10:09 AM CURRENT SMOKER 5 cigarettes a day [facility] MIC[facility] Jun 15, 2011 02:23 PM V1-PT DECLINES REF TO TOBACCO CESS PRGM [facility] MIC[facility] Jun 15, 2011 02:23 PM V1-PT READY TO QUIT TOBACCO USE [facility] Apr 13, 2011 10:31 AM V1-PT DECLINES REF TO TOBACCO CESS PRGM [facility] Apr 13, 2011 10:31 AM V1-PT RECEIVES TOBACCO CESS MEDS OUTSIDE [facility] Apr 13, 2011 10:31 AM V1-PT THINKING ABOUT QUIT TOBACCO USE [facility] MICN [facility] Oct 16, 2010 08:52 AM QUIT TOBACCO USE IN PAST YEAR [facility] May 12, 2010 02:08 PM V1-PT DECLINES REF TO TOBACCO CESS PRGM [facility] May 12, 2010 02:08 PM V1-PT READY TO QUIT TOBACCO USE [facility] May 12, 2010 12:45 PM CURRENT SMOKER 3 cigarettes a day [facility] Radiology Reports: +/- 30 days of [...] the Encounter. The data comes from all [place] treatment facilities. Date/Time Radiology Report Provider Source Feb 28, 2024 12:54 PM CHEST (2 VIEWS): PEBBLES MEEK [id number] -[id number] F Exm Date: FEB 28, 2024@12:54 Req Phys: CADEN FELIZ Hailee Loc: C[facility]/NO/PACT 6 WH (Req'g Loc) Img Loc: [facility]/BUILDING 1 Service: Unknown [facility] , (Case [id number] COMPLETE) CHEST (2 VIEWS) (RAD Detailed) CPT:64615 Reason for Study: 73yo with ashtma and genearlized puritis Clinical History: to check lung dumont and lympthadenopathy Report Status: Verified Date Reported: FEB 28, 2024 Date Verified: FEB 28, 2024 Spa Attendant E-Sig:/ES/NEMO RODRIGUEZ JR Report: Study: PA and [...] Primary Interpreting Staff: NEMO RODRIGUEZ JR, Radiologist (Spa Attendant) /NEMO WEISS JR [facility] Encounter Notes: All associated encounter notes This section contains the clinical notes associated to the Encounter. Date/Time Encounter Note(s) Provider Source Feb 19, 2024 08:56 AM MENTAL HEALTH OUTP ATIENT NOTE: LOCAL TITLE: PRIMARY MENTAL HEALTH OUTPATIENT FOLLOW UP NOTE STANDARD TITLE: MENTAL HEALTH OUTPATIENT NOTE DATE OF NOTE: FEB 19, 2024@08:56:08 ENTRY DATE: FEB 19, 2024@08:57:06 AUTHOR: IRASEMA DAMON EXP COSIGNER: URGENCY: STATUS: COMPLETED DEPRESSIVE SYMPTOMS (PHQ-9) The patient reported some symptoms of depression; symptoms are not consistent with a major depressive episode. Patient Health Questionnaire-9 (PHQ-9) Patient reported being bothered by the following over the last 2 weeks: 1. Little interest or pleasure: Not at all 2. Feeling down, depressed or hopeless: Not at all 3. Trouble sleeping: Nearly every day 4. Tired, low energy: Several Days 5. Poor appetite, over-eating: Not at all 6. Feelings of failure, guilt: Not at all 7. Trouble concentrating: Not at all 8. Motor retardation, agitation: Not at all 9. Thoughts better off /hurting self: Not at all PHQ-9 total score = 4 1-4 = minimal symptoms 5-9= mild symptoms 10-14= moderate symptoms 15-19= moderately severe symptoms 20-27= severe depressive symptoms The patient stated that the depressive symptoms made it not at all difficult to do work, take care of things at home, or get along with others. PHQ-9 scores (past 180 days): 02/19/2024 4 12/03/2023 5 ANXIETY SYMPTOMS (AWA-7) Patient reported being bothered by the following over the last two weeks: 1. Feeling nervous, anxious or on edge: Several days 2. Not being able to stop or control worrying: Nearly every day 3. Worrying too much about different things: Nearly every day 4. Trouble relaxing: Nearly every day 5. Feeling restless (hard to sit still): Not at all 6. Becoming easily annoyed or irritable: Not at all 7. Afraid as if something awful might happen: More than half the days AWA-7 total score = 12 0-4=minimal symptoms 5-9=mild symptoms 10-14=moderate symptoms 15-21=severe symptoms The patient stated that the anxiety symptoms made it somewhat difficult to do work, take care of things at home, or get along with others. PSYCHOPHARMACOLOGY The patient reports being prescribed a psychotropic medication. Side Effects and Adherence: In the last week, the patient reports the following when asked have you taken the medication(s) as prescribed: taking the medication as prescribed. The patient does not report symptoms suggestive of adverse effects of medication. Solar Installation Supervisor called for a follow-up PHQ-9, AWA-7, and assessment as Ghazala is prescribed sertraline, trazodone and lorazepam for diagnoses of chronic anxiety, chronic depression and chronic PTSD. was called as a part of care management. Shared decision making for inspector automatic typewriter's involvement happened at initial appointment. PHQ-9 Score: 4 Previous PHQ-9 SCORE- 5 AWA-7 Score: 12 PHQ-9 Score today consistent with minimal level of depression. AWA-7 score today consistent with moderate level of anxiety. Measurement based care results reviewed with Athelstane and Athelstane agreed with summation. PROBLEM: Current medical diagnoses, concerns: denied new acute medical concerns not already being addressed. Medication Concerns: Athelstane denied side effects to trazodone, sertraline and lorazepam. Mental and Sleep Status Changes since last contact: SLEEP: Athelstane reported that she never sleeps well, she sleeps with one eye open, vigilant for things NIGHTMARES: reported nightmares almost every night with stress response APPETITE: denied concerns HYGIENE: denied concerns ENERGY/MOTIVATION: reported to be motivated and have adequate energy MOOD: reported to have occasional sadness, reported to be anxious most of the time PTSD: reported to be hypervigilant and to have nightmares, just something she lives with ANXIETY: reported to be pretty intense and that mindfulness practices help PANIC ATTACKS: reported one in past three weeks DEPRESSION: reported more sadness that is mild intensity and lasts only 1-2 hours in the day ANGER/IRRITABILITY/AGGRE SSION: denied concerns WILBERT/HYPOMANIA: none observed or reported PSYCHOTIC FEATURES: none observed or reported SUICIDE: denied current active suicidal ideation/intent/plan Effect of psychiatric symptoms on functioning: Reported for the most part she is functioning well and reports more difficulty because of the anxiety. She is using learned coping skills to cope with the anxiety. Behavioral Activation/Pleasant Events Scheduling/ social interactions/exercise: denied concerns Other Treatment(Psychotherapy/ counselling, etc.): is engaged in mindfulness group Suicidal Ideation: denied current active suicidal ideation/intent/plan. Education Provided: Solar Installation Supervisor reinforced education previously provided about medication and reinforced psychoeducation previously provided. and inspector automatic typewriter discussed medication for nightmares and Athelstane wished to defer this option at this time. Athelstane reported that the alpha stim AID device has been helpful. She reports that she uses it usually daily but does occasionally forget. Athelstane knows how to access emergency services should the need arise. PLAN: 1.Follow through with [facility] program with phone calls for assessment as indicated: on 04/23 at 0830 via telephone 2.Patient's stated action plan: will continue to take medication as prescribed Consults were reviewed and no needs were identified Time Spent: 25 minutes /jeana/ Irasema PORTER RN PCMHI ROBOTICS SYSTEMS ENGINEER Signed: 02/19/2024 14:55 IRASEMA DAMON [facility]
--- OUTSIDE RECORDS SUMMARY | 2024-08-04 17:12 | XMS_ITS | Encounter Summary ---
Author Name [facility] [place] [facility] [place] Address [address] [place] [address] Care Team Providers Care Defensive Line Coach Name Role Phone CADEN FELIZ Primary Care [...] PLAN I Aug 19, 2019 PLAN I [id number] [id number] MEEK,GR ICEL PATIENT [employer] OPTIONS MEDICARE SUPPLEMEN MARCIA PLANM Y Aug 19, 2019 PLANMY [id number] MEEK,GR ICEL PATIENT [employer] OPTIONS MEDICARE SUPPLEMEN MARCIA AARP MEDIC ARE SUPPL Aug 19, 2019 PLAN MY [id number] MEEK,GR ICEL PATIENT AARP INS MEDICARE SUPPLEMEN MARCIA PLANM Y Aug 19, 2019 PLANMY [id number] MEEK,GR ICEL PATIENT AARP MED SUPP MEDICARE SUPPLEMEN MARCIA Jul 19, 2010 PLANMY [id number] [phone] MEEK,GR ICEL PATIENT MEDICARE (WNR) MEDICARE () PART B Aug 19, 2008 PART B [id number] MEEK,GR ICEL PATIENT MEDICARE (WNR) MEDICARE () PART B Aug 19, 2008 PART B [id number] MEEK,GR ICEL PATIENT MEDICARE (WNR) MEDICARE () PART B Aug 19, 2008 PART B [id number] [phone] MEEK,GR ICEL PATIENT MEDICARE (WNR) MEDICARE () PART B Aug 19, 2008 PART B [id number] MEEK,GR ICEL PATIENT MEDICARE (WNR) MEDICARE () PART B Aug 19, 2008 PART B [id number] [phone] MEEK,GR ICEL PATIENT MEDICARE (WNR) MEDICARE () PART B Aug 19, 2008 PART B [id number] [phone] MEEK,GR ICEL PATIENT MEDICARE (WNR) MEDICARE () PART B Aug 19, 2008 PART B [id number] MEEK,GR ICEL PATIENT MEDICARE (WNR) MEDICARE () PART A December 18, 2003 PART A [id number] MEEK,GR ICEL PATIENT MEDICARE (WNR) MEDICARE () PART A December 18, 2003 PART A [id number] MEEK,GR ICEL PATIENT MEDICARE (WNR) MEDICARE () PART A December 18, 2003 PART A [id number] [phone] MEEK,GR ICEL PATIENT MEDICARE (WNR) MEDICARE () PART A December 18, 2003 PART A [id number] [phone] MEEK,GR ICEL PATIENT MEDICARE (WNR) MEDICARE () PART A December 18, 2003 PART A [id number] MEEK,GR ICEL PATIENT MEDICARE (WNR) MEDICARE () PART A December 18, 2003 PART A [id number] [phone] SABINE MEEK PATIENT MEDICARE (WNR) MEDICARE (M) PART A December 18, 2003 PART A [id number] SABINE MEEK PATIENT Selected Encounter This section includes the information on record at NH for the Encounter. Date/Time Encounter Type Encounter Description Reason Provider Source Feb 17, 2024 01:00 PM [facility] ICD-10-CM F43.12 Post-traumati c stress disorder, chronic MARINA ALSTON M IHE Encounter Template Text not used by [place] Assessments - Encounter Diagnoses This section includes the primary and secondary diagnoses documented for the Encounter. Date/Time Primary/Secondary Diagnosis Diagnosis Name Provider Source Feb 18, 2024 10:54 AM PRIMARY Post-traumatic stress disorder, chronic ALICIA DANIELSON S [place] [facility] [place] [facility] Plan of Treatment: Future Appointments (+ 6 months) and Future Tests (+/- 45 days) The Plan of Treatment section includes future care activities for the patient [facility] [place] [facility] [place] This section includes future appointments and future orders which are active, pending or scheduled. Future Appointments This section includes appointments that were scheduled to occur 6 months from the date of the Encounter, up to a maximum of 20 appointments. The data comes from all [place] treatment facilities. Appointment Date/Time Appointment Type Appointme nt Facility Name Feb 21, 2024 08:30 AM AMBULATORY - MEDICINE [facility] [place] [facility] Feb 24, 2024 01:00 PM AMBULATORY - PSYCHIATRY [place] [facility] [place] [facility] Feb 28, 2024 11:30 AM AMBULATORY - MEDICINE [facility] [place] [facility] Mar 02, 2024 01:00 PM AMBULATORY - PSYCHIATRY [facility] [place] [facility] Mar 06, 2024 09:30 AM AMBULATORY - MEDICINE [facility] [place] [facility] Mar 09, 2024 01:00 PM AMBULATORY - PSYCHIATRY [facility] [place] [facility] Mar 11, 2024 03:15 PM AMBULATORY - MEDICINE [facility] [place] [facility] Mar 18, 2024 08:30 AM AMBULATORY - MEDICINE [facility] [place] [facility] Mar 23, 2024 01:00 PM AMBULATORY - PSYCHIATRY [facility] [place] [facility] Mar 30, 2024 01:00 PM AMBULATORY - PSYCHIATRY [facility] [place] [facility] Apr 06, 2024 12:30 PM AMBULATORY - MEDICINE [facility] [place] [facility] Apr 06, 2024 01:00 PM AMBULATORY [facility] MEDICINE [facility] [place] [facility] Apr 23, 2024 08:40 AM AMBULATORY - PS[facility]CHIATRY [facility] [place] [facility] May 08, 2024 08:00 AM AMBULATORY - MEDICINE [facility] [place] [facility] May 11, 2024 01:00 PM AMBULATORY - PSYCHIATRY [facility] [place] [facility] May 18, 2024 01:00 PM AMBULATORY - PSYCHIATRY [facility] [place] [facility] May 20, 2024 09:30 AM AMBULATORY - MEDICINE [facility] [place] [facility] May 25, 2024 01:00 PM AMBULATORY - PSYCHIATRY [place] [facility] [place] [facility] Jun 08, 2024 09:30 AM AMBULATORY - PSYCHIATRY [facility] [place] [facility] Jun 08, 2024 01:00 PM AMBULATORY - PSYCHIATRY [place] [facility] [place] [facility] Active, Pending, and Scheduled Orders This section includes a listing of several types of active, pending, and scheduled orders, including clinic medications orders, diagnostic test orders, procedure orders and consult orders; where the start date of the order is 45 days before the date of the Encounter or 45 days after the date of theEncounter. The data comes from all [place] treatment facilities. Test Date/Time Test Type Test Details Facility Name Feb 28, 2024 12:49 PM Consult Order COMMUNITY CARE-CARDIOLOGY Cons Manager [employer] [place] [facility] [place] [facility] Lab Results: +/- 30 days [...] Range Comment Feb 28, 2024 01:01 PM [facility] THYROID T4 FREE(FT4) (WROX) Specimen Type: SERUM No comment entered. Ordering Provider: CADEN FELIZ Report Released Date/Time: Feb 28, 2024 12:47 PM Reporting [facility]: [facility] [address] [address] Performing Lab: [facility] [address] [address] THYROID T4 FREE(FT4) (WROX) 0.93 ng/dL 0.6-1.6 Feb 28, 2024 01:01 PM [facility] TSH Specimen Type: SERUM No comment entered. Ordering Provider: CADEN FELIZ Report Released Date/Time: Feb 28, 2024 12:47 PM Reporting Lab: [facility] [address] [address] Performing Lab: [address] [address] TSH 0.54 u[IU]/mL 0.35-5.00 Feb 28, 2024 01:01 PM [facility] LIVER FUNCTION Specimen Type: SERUM No comment entered. Ordering Provider: CADEN FELIZ Report Released Date/Time: Feb 28, 2024 12:47 PM Reporting Lab: [address] [address] Performing Lab: [address] [address] PROTEIN,TOTAL 7.0 g/dL 6.0-8.3 ALBUMIN 4.2 g/dL 3.5-5.0 ALKALINE PHOSPHATASE 62 U/L 40-150 AST 15 U/L 5-34 ALT 20 U/L BILIRUBIN, TOTAL 0.4 mg/dL 0.2-1.2 Feb 28, 2024 01:01 PM [facility] HEMOGLOBIN A1C PANEL Specimen Type: [...] Feb 28, 2024 12:47 PM Reporting Lab: [address] [address] Performing Lab: [address] [address] HEMOGLOBIN A1C 6.2 H 4.0-5.6 Feb 28, 2024 01:01 PM [facility] BASIC METABOLIC PANEL (non-fasting) Specimen Type: SERUM No comment entered. Ordering Provider: ACDEN FELIZ Report Released Date/Time: Feb 28, 2024 12:47 PM Reporting Lab: [address] [address] Performing Lab: [address] [address] UREA NITROGEN 10 mg/dL 7-25 GLUCOSE 148 mg/dL H 65-100 SODIUM 140 mmol/L 135-145 POTASSIUM 4.7 mmol/L 3.5-5.0 CHLORIDE 101 mmol/L 100-110 CO2 30 meq/L 20-30 CREATININE, Serum 0.70 mg/dL 0.50-1.40 eGFR(CKD-EPI 2020) >90 mL/min >60 Feb 28, 2024 01:01 PM [facility] CBC AND DIFF (AUTO) Specimen Type: BLOOD No comment entered. Ordering Provider: CADEN FELIZ Report Released Date/Time: Feb 28, 2024 12:47 PM Reporting Lab: [address] [address] Performing Lab: [address] [address] WBC 3.39 10*3/uL L 4.50-11.00 RBC 3.84 [...] and tobacco- related health factors from the [place] facility where the Encounter took place. Current Smoking Status This section includes the most current smoking, or tobacco-related health factor, from the [place] facility where the Encounter took place. Date/Time Current Smoking Status Comment [facility] Feb 08, 2023 10:00 AM VA-TOBACCO FORMER USER [facility] Tobacco Use History This section includes a history of the smoking, or tobacco-related health factors, that were collected on or before the date of the Encounter. The data comes from the [place] facility where the Encounter took place. Date/Time Smoking Status/Tobac co Use Comment [facility] Feb 08, 2023 10:00 AM VA-TOBACCO QUIT 15 YRS OR MORE [facility] Mar 06, 2022 02:30 PM VA-TOBACCO FORMER USER [facility] Mar 06, 2022 02:30 PM VA-TOBACCO QUIT 15 YRS OR MORE [facility] [place] [facility] Apr 04, 2021 10:28 AM VA-TOBACCO NEVER USED [facility] [place] [facility] May 03, 2020 02:00 PM VA-TOBACCO NEVER USED [facility] [place] [facility] Feb 25, 2019 08:14 AM VA-TOBACCO FORMER USER [place] [facility] [place] [facility] Feb 25, 2019 08:14 AM VA-TOBACCO QUIT 5 TO < 15 YRS [facility] [place] [facility] Apr 04, 2018 10:41 AM QUIT TOBACCO USE 1-7 YEARS AGO [facility] [place] [facility] Oct 28, 2017 10:18 AM QUIT TOBACCO USE 1-7 YEARS AGO [facility] [place] [facility] Jan 22, 2017 01:08 PM QUIT TOBACCO USE 1-7 YEARS AGO [facility] [place] [facility] Jul 18, 2016 01:34 PM QUIT TOBACCO USE 1-7 YEARS AGO [facility] [place] [facility] January 10, 2016 10:32 AM QUIT TOBACCO USE 1-7 YEARS AGO [facility] [place] [facility] Oct 13, 2015 11:05 AM QUIT TOBACCO USE 1-7 YEARS AGO [facility] [place] [facility] Oct 19, 2014 01:53 PM QUIT TOBACCO USE > 7 YEARS AGO [facility] [place] [facility] January 02, 2014 01:30 AM QUIT TOBACCO USE IN PAST YEAR [facility] [place] [facility] Jun 18, 2013 09:00 AM CURRENT SMOKER 6 cigarettes qd [facility] [place] [facility] Jun 18, 2013 09:00 AM V1-PT DECLINES TOBACCO CESSATION MEDS [facility] [place] [facility] Jun 18, 2013 09:00 AM V1-PT NOT INTERESTED IN QUIT TOBACCO USE [facility] [place] [facility] December 24, 2012 10:51 AM V1-PT DECLINES REF TO TOBACCO CESS PRGM [facility] [place] [facility] December 24, 2012 10:51 AM V1-PT DECLINES TOBACCO CESSATION MEDS [facility] [place] [facility] December 24, 2012 10:51 AM V1-PT THINKING ABOUT QUIT [facility] Jul 15, 2012 10:19 AM QUIT TOBACCO USE IN PAST YEAR [facility] Jan 25, 2012 05:02 PM QUIT TOBACCO USE IN PAST YEAR [facility] Sep 28, 2011 10:09 AM CURRENT SMOKER 5 cigarettes a day [facility] Jun 15, 2011 02:23 PM V1-PT DECLINES REF TO TOBACCO CESS PRGM [facility] Jun 15, 2011 02:23 PM V1-PT READY TO QUIT TOBACCO USE [facility] Apr 13, 2011 10:31 AM V1-PT DECLINES REF TO TOBACCO CESS PRGM [facility] Apr 13, 2011 10:31 AM V1-PT RECEIVES TOBACCO CESS MEDS OUTSIDE [facility] Apr 13, 2011 10:31 AM V1-PT THINKING ABOUT QUIT TOBACCO USE [facility] Oct 16, 2010 08:52 AM QUIT TOBACCO USE IN PAST YEAR [facility] May 12, 2010 02:08 PM [facility] May 12, 2010 02:08 PM V1-PT READY TO QUIT TOBACCO USE [facility] May 12, 2010 12:45 PM CURRENT SMOKER 3 cigarettes a day [facility] Radiology Reports: +/- 30 days [...] the Encounter. The data comes from all [facility] facilities. Date/Time Radiology Report Provider Source Feb 28, 2024 12:54 PM CHEST (2 VIEWS): PEBBLES MEEK [id number] -[id number] F Exm Date: FEB 28, 2024@12:54 Req Phys: CADEN FELIZ Loc: CWM/NO/PACT 6 WH (Req'g Loc) Img Loc: [facility]BUILDING 1 Service: Unknown [facility] , (Case [id number] COMPLETE) CHEST (2 VIEWS) (RAD Detailed) CPT:20151 Reason for Study: 73yo with ashtma and genearlized puritis Clinical History: to check lung dumont and lympthadenopathy Report Status: Verified Date Reported: FEB 28, 2024 Date Verified: FEB 28, [address] E-Sig:/ES/NEMO RODRIGUEZ JR Report: Study: PA and [...] Primary Interpreting Staff: NEMO RODRIGUEZ JR, Radiologist (City Route Driver) /NEMO WEISS JR [facility] Encounter Notes: All associated encounter notes This section contains the clinical notes associated to the Encounter. Date/Time Encounter Note(s) Provider Source Feb 17, 2024 01:00 PM PSYCHIATRY GROUP COUNSELING NOTE: LOCAL TITLE: PSYCHOLOGY GROUP NOTE STANDARD TITLE: PSYCHIATRY GROUP COUNSELING NOTE DATE OF NOTE: FEB 17, 2024@13:00 ENTRY DATE: FEB 18, 2024@10:49:22 AUTHOR: ALICIA DANIELSON EXP COSIGNER: LORNA ALSTON URGENCY: STATUS: COMPLETED PSYCHOLOGY GROUP NOTE Has ADDENDA [facility] Mindful Compassion Group Therapy Note (F2F) Arbela identified with 2 identifiers: [X] Patient Name [X] Visual recognition ~~~ Rrt: Alicia Danielson MS PROCEDURE: 60-minute interactive hybrid VVC/F2F group therapy session Problem: Difficulty being present in the moment and fostering compassion Objective: Explored and practice mindful compassion Number of Veterans Present in Group: 6 GROUP CONTENT: Group members engaged in a mindful listening practice involving listening to the writing of Abram Moncada Jr. Group members checked in by speaking about mindful compassion practice in the past week. The concept of practicing metta-loving kindness with a mildly difficult person in mind was introduced again. Group members participated in a metta-loving kindness practice with a focus on extending well wishes to a mildly difficult person. Group members also dicussed February 19 and potential expsoure to evironmental triggers such as fireworks. Group memebers discussed ways that they can engage in mindful awareness and to practice metta loving kindness during the upcoming holiday. PROGRESS: arrived on time and was an active and appropriate participant. Arbela participated in the mindfulness practices and group discussions. Mental Status was not formally assessed due to the nature of the encounter. maintained appropriate eye contact and was alert. Arbela spoke clearly and coherently. 's thoughts were linear and related. 's affect was congruent to content and appropriate in range. No clinical signs of intoxication, withdrawal, psychosis, or cognitive impairment were observed. No evidence of suicidal or homicidal ideation. There was no evidence of AH/VH or delusions. Arbela was future oriented. DSM-V DIAGNOSTIC IMPRESSIONS(per chart): PTSD, chronic PLAN: will continue to participate in the Mindful Compassion Group on Mondays at 1pm. SUPERVISION: This case is being supervised by Dr. Lorna Alston PsyD, Staff Psychologist while Dr. Debbie Gibbs is on leave. Diagnosis, treatment plan, and response to care are reviewed in standard 1-hour or more weekly individual and group supervision meetings. /jeana/ ALICIA DANIELSON M.S.// INFORMATION SYSTEMS CONSULTANT// Signed: 02/18/2024 10:53 /jeana/ LORNA ALSTON PSYD CLINICAL PSYCHOLOGIST - [facility] Cosigned: 02/18/2024 14:54 02/18/2024 ADDENDUM STATUS: COMPLETED I have reviewed this case and concur with the clinical impressions and recommendations made by this trainee as the covering mold cleaning and storage supervisor for Dr. Gibbs. /jeana/ LORNA ALSTON PSYD CLINICAL PSYCHOLOGIST - [facility] Signed: 02/18/2024 14:54 ALICIA DANIELSON [facility]
--- OUTSIDE RECORDS SUMMARY | 2024-08-04 17:13 | XMS_ITS | Encounter Summary ---
Author Name [facility] [place] [facility] [place] Address [address] [place] [address] Care Team Providers Care Aboriginal Liaison Officer Name Role Phone CADEN FELIZ Primary [...] PLAN I Aug 19, 2019 PLAN I [id number] MEEK,SABINE ICEL PATIENT [employer] OPT[employer] MEDICARE SUPPLEMEN MARCIA PLANM Y Aug 19, 2019 PLANMY [id number] [phone] MEEK,GR ICEL PATIENT [employer] OPTIONS MEDICARE SUPPLEMEN MARCIA AARP MEDIC ARE SUPPL Aug 19, 2019 PLAN MY [id number] MEEK,GR ICEL PATIENT A[employer] INS MEDICARE SUPPLEMEN MARCIA PLANM Y Aug 19, 2019 PLANMY [id number] MEEK,GR ICEL PATIENT AARP MED SUPP MEDICARE SUPPLEMEN MARCIA Jul 19, 2010 PLANMY [id number] [phone] MEEK,GR ICEL PATIENT MEDICARE (WNR) MEDICARE () PART B Aug 19, 2008 PART B [id number] [phone] MEEK,GR ICEL PATIENT MEDICARE (WNR) MEDICARE () PART B Aug 19, 2008 PART B [id number] MEEK,GR ICEL PATIENT MEDICARE (WNR) MEDICARE () PART B Aug 19, 2008 PART B [id number] [phone] MEEK,GR ICEL PATIENT MEDICARE (WNR) MEDICARE () PART B Aug 19, 2008 PART B [id number] MEEK,GR ICEL PATIENT MEDICARE (WNR) MEDICARE () PART B Aug 19, 2008 PART B [id number] [phone] MEEK,GR ICEL PATIENT MEDICARE (WNR) MEDICARE () PART B Aug 19, 2008 PART B [id number] MEEK,GR ICEL PATIENT MEDICARE (WNR) MEDICARE () PART B Aug 19, 2008 PART B [id number] MEEK,GR ICEL PATIENT MEDICARE (WNR) MEDICARE () PART A December 18, 2003 PART A [id number] MEEK,GR ICEL PATIENT MEDICARE (WNR) MEDICARE () PART A December 18, 2003 PART A [id number] [phone] MEEK,GR ICEL PATIENT MEDICARE (WNR) MEDICARE () PART A December 18, 2003 PART A [id number] [phone] MEEK,GR ICEL PATIENT MEDICARE (WNR) MEDICARE () PART A December 18, 2003 PART A [id number] [phone] MEEK,GR ICEL PATIENT MEDICARE (WNR) MEDICARE () PART A December 18, 2003 PART A [id number] MEEK,GR ICEL PATIENT MEDICARE (WNR) MEDICARE () PART A December 18, 2003 PART A [id number] SABINE MEEK PATIENT MEDICARE (WNR) MEDICARE (M) PART A December 18, 2003 PART A [id number] SABINE MEEK PATIENT Selected Encounter This section includes the information on record at [facility] for the Encounter. Date/Time Encounter Type Encounter Description Reason Pro vider Source Nov 25, 2023 12:00 PM Outpatient Encounter COMM[facility]ITY CARE CONSULT IHE Encounter Template Text not used by [place] Plan of Treatment: Future Appointments (+ 6 months) and Future Tests (+/- 45 days) The Plan of Treatment section includes future care activities for the patient from all [place] treatmentfacilities. This section includes future appointments and future orders which are active, pending or scheduled. Future Appointments This section includes appointments that were scheduled to occur 6 months from the date of the Encounter, up to a maximum of 20 appointments. The data comes from all [place] treatment facilities. Appointment Date/Time Appointment Type Appointme nt Facility Name Nov 27, 2023 09:30 AM [facility]ORY [facility] [place] Nov 28, 2023 09:00 AM [facility] [place] Nov 28, 2023 10:00 AM AMBULATORY - PSYCHIATRY [facility] [place] Dec 05, 2023 09:00 AM AMBULATORY - REHAB MEDICIN E [facility] [place] Dec 05, 2023 09:30 AM [facility] [place] Dec 09, 2023 09:30 AM [facility]ULAT[facility]IC[facility] [place] Dec 09, 2023 11:30 AM AMBULATORY [facility]ICINE [facility] [place] Dec 12, 2023 11:30 AM AMBULATORY - NONE [facility] [place] Dec 16, 2023 01:00 PM AMBULATORY - PSYCHIATRY [facility] [place] December 23, 2023 01:00 PM AMBULATORY - PSYCHIATRY [facility] [place] December 31, 2023 09:00 AM AMBULATORY [facility]IC[facility] [place] January 06, 2024 11:00 AM AMBULATORY [...] AMBULATORY - PSYCHIATRY [facility] [place] Lab Results: +/- 30 days of [...] Range Comment Nov 15, 2023 10:10 AM [facility] [place] VITAMIN B12 Specimen Type: SERUM No comment entered. Ordering Provider: WALE FELIZ Report Released Date/Time: Nov 15, 2023 09:56 AM Reporting Lab: [facility] [place] [address] [address] Performing Lab: [facility] [place] [facility] [address] [facility] [address] VITAMIN B12 806 pg/mL 200-900 Nov 15, 2023 10:10 AM [facility] [place] [facility] MICROALBUMIN CREATININE RATIO PANEL Specimen Type: URINE No comment entered. Ordering Provider: WALE FELIZ Report Released Date/Time: Nov 15, 2023 09:56 AM Reporting Lab: [facility] [place] [facility] [address] [facility] [address] Performing Lab: [facility] [address] [facility] [address] MICROALBUMIN/C REATININE RATIO canc mg/g 0-29.9 MICROALBUMIN,Q UANTITATIVE < 0.5 mg/dL RR UNAVAIL CREATININE URINE 34.74 mg/dL Nov 15, 2023 10:10 AM [facility] HEMOGLOBIN A1C PANEL Specimen Type: BLOOD No comment entered. Ordering Provider: WALE FELIZ Report Released Date/Time: Nov 15, 2023 09:56 AM Reporting Lab: [address] [address] Performing Lab: [address] [address] HEMOGLOBIN A1C 6.1 H 4.0-5.6 Nov 15, 2023 10:10 AM [facility] VITAMIN D (25-OH) Specimen Type: SERUM No comment entered. Ordering Provider: WALE FELIZ Report Released Date/Time: Nov 15, 2023 09:56 AM Reporting Lab: [address] [address] Performing Lab: [address] [address] VITAMIN D (25-OH) 54 ng/mL H 20-50 Nov 15, 2023 10:10 AM [facility] BASIC METABOLIC PANEL (non-fasting) Specimen Type: SERUM No comment entered. Ordering Provider: WALE FELIZ Report Released Date/Time: Nov 15, 2023 09:56 AM Reporting Lab: [address] [address] Performing Lab: [address] [address] UREA NITROGEN 6 mg/dL L 7-25 GLUCOSE 168 mg/dL H 65-100 SODIUM 134 mmol/L L 135-145 POTASSIUM 4.3 mmol/L 3.5-5.0 CHLORIDE 99 mmol/L L 100-110 CO2 25 meq/L 20-30 CREATININE, Serum 0.66 mg/dL 0.50-1.40 eGFR(CKD-EPI 2020) >90 mL/min >60 Oct 28, 2023 09:26 AM [facility] [place] [facility] GLUCOSE, Fingerstick Specimen Type: BLOOD Comment: For GLU FinTest performed by: Linda Vee For GLU Fin Meter #: [id number] Ordering Provider: WALE FELIZ Report Released Date/Time: Oct 28, 2023 10:19 AM Reporting Lab: [facility] [place] [facility] [address] [facility] [address] [facility] [address] [facility] [address] GLUCOSE, Fingerstick 178 mg/dL H 65-100 Social History: Smoking Status (Most current) and Tobacco Use (All prior to encounter date) This section includes the most current, and the historical, smoking and tobacco- related health factors from the [place] facility where the Encounter took place. Current Smoking Status This section includes the most current smoking, or tobacco-related health factor, from the [facility] facility where the Encounter took place. Date/Time Current Smoking Status Comment [facility] Feb 08, 2023 10:00 AM VA-TOBACCO FOR[facility]ER [facility] Tobacco Use History This section includes a history of the smoking, or tobacco-related health factors, that were collected on or before the date of the Encounter. The data comes from the [facility] facility where the Encounter took place. Date/Time Smoking Status/Tobac co Use Comment Facility Feb 08, 2023 10:00 AM VA-TOBACCO QUIT 15 YRS OR MORE [facility] [place] [facility] Mar 06, 2022 02:30 PM VA-TOBACCO FORMER USER [facility] [place] [facility] Mar 06, 2022 02:30 PM VA-TOBACCO QUIT 15 YRS OR MORE [facility] [place] [facility] Apr 04, 2021 10:28 AM VA-TOBACCO NEVER USED [facility] [place] [facility] May 03, 2020 02:00 PM VA-TOBACCO NEVER USED [facility] [place] [facility] Feb 25, 2019 08:14 AM VA-TOBACCO FORMER USER [facility] [place] [facility] Feb 25, 2019 08:14 AM VA-TOBACCO QUIT 5 TO < 15 YRS [facility] [place] [facility] Apr 04, 2018 10:41 AM QUIT TOBACCO USE 1-7 YEARS AGO [facility] [place] [facility] Oct 28, 2017 10:18 AM QUIT TOBACCO USE 1-7 YEARS AGO [facility] [place] [facility] Jan 22, 2017 01:08 PM QUIT TOBACCO USE 1-7 YEARS AGO [facility] [place] [facility] Jul 18, 2016 01:34 PM QUIT TOBACCO USE 1-7 YEARS AGO [facility] [place] [facility] January 10, 2016 10:32 AM QUIT TOBACCO USE 1-7 YEARS AGO [facility] [place] [facility] Oct 13, 2015 11:05 AM QUIT TOBACCO USE 1-7 YEARS AGO [facility] [place] [facility] Oct 19, 2014 01:53 PM QUIT TOBACCO USE > 7 YEARS AGO [facility] [place] [facility] January 02, 2014 01:30 AM QUIT TOBACCO USE IN PAST YEAR [facility] [place] [facility] Jun 18, 2013 09:00 AM CURRENT SMOKER 6 cigarettes qd [facility] [place] [facility] Jun 18, 2013 09:00 AM V1-PT DECLINES TOBACCO CESSATION MEDS [facility] [place] [facility] Jun 18, 2013 09:00 AM V1-PT NOT INTERESTED IN QUIT TOBACCO USE [facility] [place] [facility] December 24, 2012 10:51 AM V1-PT DECLINES REF TO [facility]BACCO [facility] [place] December 24, 2012 10:51 AM V1-PT DECLINES TOBACCO CESSATION MEDS [facility] [place] [facility] December 24, 2012 10:51 AM V1-PT THINKING ABOUT QUIT TOBACCO USE [facility] [place] [facility] Jul 15, 2012 10:19 AM QUIT TOBACCO USE IN PAST YEAR [facility] [place] [facility] Jan 25, 2012 05:02 PM QUIT TOBACCO USE IN PAST YEAR [facility] [place] [facility] Sep 28, 2011 10:09 AM CURRENT SMOKER 5 cigarettes [facility] [place] [facility] Jun 15, 2011 02:23 PM V1-PT DECLINES REF TO TOBACCO CESS [facility] Jun 15, 2011 02:23 PM V1-PT READY TO QUIT TOBACCO USE [facility] Apr 13, 2011 10:31 AM V1-PT DECLINES REF TO TOBACCO CESS [facility] Apr 13, 2011 10:31 AM V1-PT RECEIVES TOBACCO CESS MEDS OUTSIDE [facility] Apr 13, 2011 10:31 AM V1-PT THINKING ABOUT QUIT TOBACCO USE [facility] Oct 16, 2010 08:52 AM QUIT TOBACCO USE IN PAST YEAR [facility] May 12, 2010 02:08 PM V1-PT DECLINES [facility], 2010 02:08 PM V1-PT READY TO QUIT TOBACCO USE [facility] May 12, 2010 12:45 PM CURRENT SMOKER 3 cigarettes a day [facility] Radiology Reports: +/- 30 days [...] ELBOW 3 OR MORE VIEWS(LEFT): PEBBLES MEEK [id number] [id number] F Exm Date: NOV 15, 2023@10:22 Req Phys: CADEN FELIZ Loc: C[facility]/NO/PACT 6 WH (Req'g Loc) Img Loc: [facility]/BUILDING 1 Service: Unknown (Case [id number] COMPLETE) ELBOW 3 OR MORE VIEWS(LEFT) (RAD Detailed) CPT:19988 Reason for Study: pain and swelling left elbow Clinical History: 73yo woman with h/o traumatic injury in 20s, Report Status: Verified Date Reported: NOV 15, 2023 Date Verified: NOV 15, 2023 Scrap Worker E-Sig:/ES/NEMO RODRIGUEZ JR Report: Study: AP, lateral, [...] Primary Interpreting Staff: NEMO RODRIGUEZ JR, Radiologist (Scrap Worker) /NEMO WEISS JR [facility] Encounter Notes: All associated encounter notes This section contains the clinical notes associated to the Encounter. Date/Time Encounter Note(s) Provider Source Nov 25, 2023 12:00 PM DENTISTRY CONSULT: LOCAL TITLE: CONSULT REPORT/DENTAL STANDARD TITLE: DENTISTRY CONSULT DATE OF NOTE: NOV 25, 2023@12:00 ENTRY DATE: FEB 21, 2024@13:18:49 AUTHOR: MAYCOL SARAVIA COSIGNER: URGENCY: STATUS: COMPLETED VistA Imaging - Scanned Document SCANNED DOCUMENT SIGNATURE NOT REQUIRED Electronically Filed: 02/21/2024 by: MAYCOL WHITT [facility]
--- OUTSIDE RECORDS SUMMARY | 2024-08-04 17:14 | XMS_ITS | Encounter Summary ---
Author Name [facility] [place] [facility] [place] Address [address] [place] [address] Care Team Providers Care Adult Services Librarian Name Role Phone CADEN FELIZ Primary Care [...] PLAN I Aug 19, 2019 PLAN I [id number] [phone] MEEK,GR ICEL PATIENT [employer] OPTIONS MEDICARE SUPPLEMEN MARCIA PLANM Y Aug 19, 2019 PLANMY [id number] MEEK,GR ICEL PATIENT [employer] OPTIONS MEDICARE SUPPLEMEN MARCIA AARP MEDIC ARE SUPPL Aug 19, 2019 PLAN MY [id number] MEEK,GR ICEL PATIENT AARP INS MEDICARE SUPPLEMEN MARCIA PLANM Y Aug 19, 2019 PLANMY [id number] [phone] MEEK,GR ICEL PATIENT AARP MED SUPP MEDICARE SUPPLEMEN MARCIA Jul 19, 2010 [facility] [id number] MEEK,GR ICEL PATIENT MEDICARE (WNR) MEDICARE () PART B Aug 19, 2008 PART B [id number] MEEK,GR ICEL PATIENT MEDICARE (WNR) MEDICARE () PART B Aug 19, 2008 PART B [id number] [phone] MEEK,GR ICEL PATIENT MEDICARE (WNR) MEDICARE () PART B Aug 19, 2008 PART B [id number] [phone] MEEK,GR ICEL PATIENT MEDICARE (WNR) MEDICARE () PART B Aug 19, 2008 PART B [id number] [phone] MEEK,GR ICEL PATIENT MEDICARE (WNR) MEDICARE () PART B Aug 19, 2008 PART B [id number] [phone] MEEK,GR ICEL PATIENT MEDICARE (WNR) MEDICARE () PART B Aug 19, 2008 PART B [id number] [phone] MEEK,GR ICEL PATIENT MEDICARE (WNR) MEDICARE () PART B Aug 19, 2008 PART B [id number] [phone] MEEK,GR ICEL PATIENT MEDICARE (WNR) MEDICARE () PART A December 18, 2003 PART A [id number] [phone] MEEK,GR ICEL PATIENT MEDICARE (WNR) MEDICARE () PART A December 18, 2003 PART A [id number] MEEK,GR ICEL PATIENT MEDICARE (WNR) MEDICARE () PART A December 18, 2003 PART A [id number] [phone] MEEK,GR ICEL PATIENT MEDICARE (WNR) MEDICARE () PART A December 18, 2003 PART A [id number] MEEK,GR ICEL PATIENT MEDICARE (WNR) MEDICARE () PART A December 18, 2003 PART A [id number] [phone] MEEK,GR ICEL PATIENT MEDICARE (WNR) MEDICARE (M) PART A December 18, 2003 PART A [id number] SABINE MEEK ICEJacky PATIENT MEDICARE (WNR) MEDICARE (M) PART A December 18, 2003 PART A [id number] SABINE MEEK PATIENT Selected Encounter This section includes the information on record at [place] for the Encounter. Date/Time Encounter Type Encounter Description Reason Provider Source Feb 28, 2024 11:30 AM OFFICE O/P EST SF 10 MIN PRIMARY CARE/MEDICINE ICD-10-CM L29.9 Pruritus, unspecified CADEN FELIZ Darshan Encounter Template Text not used by [place] Assessments - Encounter Diagnoses This section includes the primary and secondary diagnoses documented for the Encounter. Date/Time Primary/Secondary Diagnosis Diagnosis Name Provider Source Apr 06, 2024 01:31 PM PRIMARY Pruritus, unspecified CADEN FELIZ [place] [facility] [place] [facility] Plan of Treatment: Future Appointments (+ 6 months) and Future Tests (+/- 45 days) The Plan of Treatment section includes future care activities for the patient from all [place] [facility]. This section includes future appointments and future orders which are active, pending or scheduled. Future Appointments This section includes appointments that were scheduled to occur 6 months from the date of the Encounter, up to a maximum of 20 appointments. The data comes from all [place] treatment facilities. Appointment Date/Time Appointment Type Appointme nt Facility Name Mar 02, 2024 01:00 PM AMBULATORY - [place]IATRY [place] [facility] [place] [facility] Mar 06, 2024 09:30 AM AMBULATORY - MEDICINE [facility] [place] [facility] Mar 09, 2024 01:00 PM AMBULATORY - [place]CHIATRY [place] [facility] [place] [facility] Mar 11, 2024 03:15 PM AMBULATORY - MEDICINE [place] [facility] [place] [facility] Mar 18, 2024 08:30 AM AMBULATORY - MEDICINE [place] [facility] [place] [facility] Mar 23, 2024 01:00 PM AMBULATORY - PS[place]CHIATRY [place] [facility] [place] [facility] Mar 30, 2024 01:00 PM AMBULATORY - PS[place]CHIATRY [place] [facility] [place] [facility] Apr 06, 2024 12:30 PM AMBULATORY - [place]ICINE [place] [facility] [place] [facility] Apr 06, 2024 01:00 PM [facility] [place] [facility] Apr 23, 2024 08:40 AM AMBULATORY - PS[facility]CHIATRY [facility] [place] [facility] May 08, 2024 08:00 AM AMBULATORY [facility]ICINE [facility] [place] [facility] May 11, 2024 01:00 PM AMBULATORY - PSYCHIATRY [facility] [place] [facility] May 18, 2024 01:00 PM AMBULATORY - PS[facility]CHIATRY [facility] [place] [facility] May 20, 2024 09:30 AM AMBULATORY - MEDICINE [place] [facility] [place] [facility] May 25, 2024 01:00 PM AMBULATORY - PSYCHIATRY [facility] [place] [facility] Jun 08, 2024 09:30 AM AMBULATORY - PSYCHIATRY [facility] [place] [facility] Jun 08, 2024 01:00 PM AMBULATORY - PSYCHIATRY [facility] [place] [facility] Jun 15, 2024 01:00 PM AMBULATORY - PS[place]CHIATRY [place] [facility] [place] [facility] Jun 19, 2024 09:00 AM AMBULATORY - PS[facility]CHIATRY [facility] [place] [facility] Jun 27, 2024 09:30 AM AMBULATORY - MEDICINE [place] [facility] [place] [facility] Active, Pending, and Scheduled Orders This section includes a listing of several types of active, pending, and scheduled orders, including clinic medications orders, diagnostic test orders, procedure orders and consult orders; where the start date of the order is 45 days before the date of the Encounter or 45 days after the date of theEncounter. The data comes from all [place] treatment facilities. 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 Ordering Provider: CADEN FELIZ Report Released Date/Time: Feb 28, 2024 12:47 PM Reporting Lab: [facility] [address] [facility] [address] Performing Lab: [facility] [address] [facility] [address] THYROID T4 FREE(FT4) (WROX) 0.93 ng/dL 0.6-1.6 Feb 28, 2024 01:01 PM [facility] TSH Specimen Type: SERUM No comment entered. Ordering Provider: CADEN FELIZ Report Released Date/Time: Feb 28, 2024 12:47 PM Reporting Lab: [facility] [address] [facility] [address] Performing Lab: [address] [address] TSH 0.54 u[IU]/mL 0.35-5.00 Feb 28, 2024 01:01 PM [facility] LIVER FUNCTION Specimen Type: SERUM No comment entered. Ordering Provider: CADEN FELIZ Report Released Date/Time: Feb 28, 2024 12:47 PM Reporting Lab: [facility] [address] [facility] [address] Performing Lab: [address] [address] PROTEIN,TOTAL 7.0 g/dL 6.0-8.3 ALBUMIN 4.2 g/dL 3.5-5.0 ALKALINE PHOSPHATASE 62 U/L 40-150 AST 15 U/L 5-34 ALT 20 U/L BILIRUBIN, TOTAL 0.4 mg/dL 0.2-1.2 Feb 28, 2024 01:01 PM [facility] HEMOGLOBIN A1C PANEL Specimen Type: BLOOD Comment: [...] Feb 28, 2024 12:47 PM Reporting Lab: [address] [address] Performing Lab: [address] [address] HEMOGLOBIN A1C 6.2 H 4.0-5.6 Feb 28, 2024 01:01 PM [facility] BASIC METABOLIC PANEL (non-fasting) Specimen Type: SERUM No comment entered. Ordering Provider: CADEN FELIZ Report Released Date/Time: Feb 28, 2024 12:47 PM Reporting Lab: [address] [address] Performing Lab: [address] [address] UREA NITROGEN 10 mg/dL 7-25 GLUCOSE 148 mg/dL H 65-100 SODIUM 140 mmol/L 135-145 POTASSIUM 4.7 mmol/L 3.5-5.0 CHLORIDE 101 mmol/L 100-110 CO2 30 meq/L 20-30 CREATININE, Serum 0.70 mg/dL 0.50-1.40 eGFR(CKD-EPI 2020) >90 mL/min >60 Feb 28, 2024 01:01 PM [facility] CBC AND DIFF (AUTO) Specimen Type: BLOOD No comment entered. Ordering Provider: CADEN FELIZ Report Released Date/Time: Feb 28, 2024 12:47 PM Reporting Lab: [address] [address] Performing Lab: [address] [address] WBC 3.39 10*3/uL L 4.50-11.00 RBC 3.84 [...] 0.0 0.0-0.0 NRBC, ABS 0.00 10*3/uL 0.00-0.00 Vital Signs: All taken on the encounter date This section contains inpatient and outpatient Vital Signs collected on the date of the Encounter. Date/Time Temperature Pulse Blood Pressure Respiratory Rate SP02 Pain Height Weight Body Mass Index Source Feb 28, 2024 11:55 AM 69 105/68 18 97 [facility] Social History: Smoking Status (Most [...] Facil ity Feb 08, 2023 10:00 AM [place]-TOBACCO QUIT 15 YRS OR MORE [facility] Tobacco Use History This section includes a history of the smoking, or tobacco-related health factors, that were collected on or before the date of the Encounter. The data comes from the [place] facility where the Encounter took place. Date/Time Smoking Status/Tobac co Use Comment Facility Feb 08, 2023 10:00 AM [place]-TOBACCO QUIT 15 YRS OR MORE [place] [facility] [place] [facility] Mar 06, 2022 02:30 PM VA-TOBACCO FORMER USER [facility] [place] [facility] Mar 06, 2022 02:30 PM VA-TOBACCO QUIT 15 YRS OR MORE [place] [facility] [place] [facility] Apr 04, 2021 10:28 AM VA-TOBACCO NEVER USED [place] [facility] [place] [facility] May 03, 2020 02:00 PM VA-TOBACCO NEVER USED [place] [facility] [place] [facility] Feb 25, 2019 08:14 AM VA-TOBACCO FORMER USER [place] [facility] [place] [facility] Feb 25, 2019 08:14 AM VA-TOBACCO QUIT 5 TO < 15 YRS [place] [facility] [place] [facility] Apr 04, 2018 10:41 AM QUIT TOBACCO USE 1-7 YEARS AGO [place] [facility] [place] [facility] Oct [...] 1-7 YEARS AGO [place] [facility] [place] [facility] Oct 13, 2015 11:05 AM QUIT TOBACCO USE 1-7 YEARS AGO [place] [facility] [place] [facility] Oct 19, 2014 01:53 PM QUIT TOBACCO USE > 7 YEARS AGO [place] [facility] [place] [facility] January 02, 2014 01:30 AM QUIT TOBACCO USE IN PAST YEAR [place] [facility] [place] [facility] Jun 18, 2013 09:00 AM CURRENT SMOKER 6 cigarettes qd [place] [facility] [place] [facility] Jun 18, 2013 09:00 AM V1-PT DECLINES TOBACCO CESSATION MEDS [place] [facility] [place] [facility] Jun 18, 2013 09:00 AM V1-PT NOT INTERESTED IN QUIT TOBACCO USE [place] [facility] [place] [facility] December 24, 2012 10:51 AM V1-PT DECLINES REF TO TOBACCO CESS [facility] December 24, 2012 10:51 AM V1-PT DECLINES TOBACCO CESSATION MEDS [facility] December 24, 2012 10:51 AM V1-PT THINKING ABOUT [facility]IT [facility] Jul 15, 2012 10:19 AM QUIT TOBACCO USE IN PAST YEAR [facility] Jan 25, 2012 05:02 PM QUIT TOBACCO USE IN PAST YEAR [facility] Sep 28, 2011 10:09 AM CURRENT SMOKER 5 cigarettes a day [facility] Jun 15, 2011 02:23 PM V1-PT DECLINES REF TO TOBACCO CESS [facility] Jun 15, 2011 02:23 PM V1-PT READY TO QUIT TOBACCO [facility] Apr 13, 2011 10:31 AM V1-PT DECLINES REF TO TOBACCO CESS [facility] Apr 13, 2011 10:31 AM V1-PT RECEIVES TOBACCO CESS MEDS OUTSIDE [facility] Apr 13, 2011 10:31 AM V1-PT THINKING ABOUT QUIT TOBACCO USE [facility] Oct 16, 2010 08:52 AM QUIT TOBACCO USE IN PAST [facility]AR [facility] May 12, 2010 02:08 PM V1-PT DECLINES REF TO TOBACCO CESS [facility] May 12, 2010 02:08 PM V1-PT READY TO QUIT TOBACCO USE [facility] May 12, 2010 12:45 PM CURRENT SMOKER 3 cigarettes a day [facility] Radiology Reports: +/- 30 days of the [...] the Encounter. The data comes from all [place] treatment facilities. Date/Time Radiology Report Provider Source Feb 28, 2024 12:54 PM CHEST (2 VIEWS): PEBBLES MEEK [id number] F Exm Date: FEB 28, 2024@12:54 Req Phys: CADEN FELIZ Loc: CWM/NO/PACT 6 [facility] (Req'g Loc) Img Loc: NH[facility]/BUILDING 1 Service: Unknown [facility] , (Case [id number] COMPLETE) CHEST (2 VIEWS) (RAD Detailed) CPT:65874 Reason for Study: 73yo with ashtma and genearlized puritis Clinical History: to check lung dumont and lympthadenopathy Report Status: Verified Date Reported: FEB 28, 2024 Date Verified: FEB 28, 2024 Leather Stripping Machine Operator E-Sig:/ES/NEMO RODRIGUEZ JR Report: Study: [...] Primary Interpreting Staff: NEMO RODRIGUEZ JR, Radiologist (Leather Stripping Machine Operator) /EANEMO BARROS JR [facility] Encounter Notes: All associated encounter notes This section contains the clinical notes associated to the Encounter. Date/Time Encounter Note(s) Provider Source Feb 28, 2024 12:30 PM PHYSICIAN NOTE: LOCAL TITLE: MD NOTE STANDARD TITLE: PHYSICIAN NOTE DATE OF NOTE: FEB 28, 2024@12:30 ENTRY DATE: FEB 28, 2024@12:30:12 AUTHOR: CADEN FELIZ COSIGNER: URGENCY: STATUS: COMPLETED Patient Name: PEBBLES MEEK Ms. is here for a sick visit. cc: puritis She had generalized puritis all overe (extremiies, head, trunk, bottom of feet). It started in December, sudden onset and all over. She has been using OTC Benadryl 50mg 2-3 times a day which decreases the puritis. The puritis has become less intense but still daily. She has not noticed any color changes to her skin, no rashes, no papules on her skin. SHe denies any changes in her food, supplment, cleaning products or personal products. Past Medical History: Active problems - Computerized Problem List is the source for the followin. Exposure to potentially hazardous substance ([facility] [id number]) Entered automatically through [employer] Problem List documentation program 2. Long-term current use of anticoagulant 3. Gastro-esophageal reflux disease with esophagitis 4. Migraine 5. Vertigo 6. NAFLD - Nonalcoholic fatty liver disease 7. Vitamin D deficiency 8. 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r mental disorder 9. Urge incontinence of urine (SNOMED CT 81936739) 10. Osteopenia 11. Sciatica 12. Obesity 13. Chronic obstructive lung disease (SNOMED CT 41239183) 14. Diabetes mellitus (SNOMED CT 11186108) 15. Restless Leg Syndrome * 16. Knee pain (SNOMED CT 3783782250) 17. Paroxysmal atrial fibrillation (SNOMED CT 130057233) 18. Other and unspecified Sleep Apnea on cpap 19. Hyperlipidemia (SNOMED CT 11148988) 20. Chronic anxiety (SNOMED CT 517230211) with panic attacks, currently well controlled 21. Asthma (SNOMED CT 036956781) 22. Chronic depression (SNOMED CT 613302934) reviewed 23. PTSD - Post-traumatic stress disorder (SNOMED CT 23313782) reviewed 24. Knee Joint replacement Status (Prosthetic or Artificial Device) Allergies: SULFUR, ZOCOR, NIACIN, VARENICLINE, MOXIFLOXACIN, MIRTAZAPINE ASPIRIN RELATED MEDICATIONS, ATORVASTATIN Current Medications: Active Outpatient Medications (including Supplies): APIXABAN 5MG TAB TAKE ONE TABLET BY MOUTH EVERY 12 HOURS ACTIVE CYANOCOBALAMIN 100MCG TAB TAKE ONE TABLET BY MOUTH EVERY HOLD OTHER DAY FOR VITAMIN SUPPLEMENTATION DILTIAZEM (EQV-TIAZAC) 240MG 24HR CAP TAKE ONE CAPSULE BY ACTIVE (S) MOUTH EVERY MORNING PATIENT EXPERIENCE ADVERSE REACTION TO [facility] BRAND/PLEASE DISPENSE VALEANT/OCEANSIDE BRAND [facility] [phone] KETOTIFEN 0.025% OPH SOLN INSTILL 1 DROP INTO EACH EYE ACTIVE EVERY 12 HOURS FOR ALLERGIC CONJUNCTIVITIS (IF YOU WEAR CONTACT LENSES, WAIT 10 MINUTES BEFORE INSERTING LENSES) LORAZEPAM 0.5MG TAB TAKE ONE TABLET BY MOUTH ONCE DAILY ACTIVE NEEDED FOR ANXIETY METFORMIN HCL 1000MG TAB TAKE ONE TABLET BY MOUTH TWICE ACTIVE DAILY FOR DIABETES SERTRALINE(ZOLOFT) 100MG TAB*BRAND NAME* TAKE TWO TABLETS ACTIVE (S) BY MOUTH ONCE DAILY ANXIETY TRAZODONE HCL 100MG TAB TAKE ONE-HALF TABLET BY MOUTH AT ACTIVE (S) BEDTIME NEEDED FOR SLEEP Non-VA DIPHENHYDRAMINE HCL [...] n/v/d, no pain Psych: no SI PE: BP:105/68 (02/28/2024 11:55) Pulse:69 (02/28/2024 11:55) Resp:18 (02/28/2024 11:55) Temp:98 F [36.7 C] (11/15/2023 09:11) Pulse Oximetry VITAL SIGNS SELECTED Measurement DT POx (L/MIN)(%) 02/28/2024 11:55 97 Weight:145.4 lb [65.95 kg] (11/15/2023 09:11) Height:61 in [154.9 cm] (09/13/2023 11:34) BMI: 27.5 General: NAD HEENT: sclera clear, no icterus, no LAD CV: S1S2 irregularly irregular, no m/r/g noted Lung: CTA b/l, no wheeze, rhonchi, or crackles, good breath sounds to bases b/l Ext: no edema, warm and well perfused b/l SKIN: no papules or pustueles. no lesions on palms b/l, no rashes noted Psych: A&O x3, appropriate mood and affect A/P PURITIS generalized, no obvious source with slowly improving symptoms, no red flags Reassurance given - checking LFTs (bili) and CBC - can continue with Benadryl prn for symptoms control f/u prn The above plan and education was reviewed with the [place] and they verbalized understanding. Declines paper copy of medications. Medication Reconciliation: Outpatient: Has the patient been taking medications as documented in the EMLR? YES: The patient has been taking medications as documented in the EMLR. Essential Medication List for Review used to complete this medication reconciliation. INCLUDED IN THIS LIST: Alphabetical list of active outpatient prescriptions dispensed from this [place] (local) and dispensed from another [facility] or [facility] facility (remote) as well as [...] whether with a VA or non-VA provider. /jeana/ CADEN FELIZ M.D. PHYSICIAN Signed: 04/06/2024 13:31 CADEN FELIZ [place] [facility]
--- OUTSIDE RECORDS SUMMARY | 2024-08-04 17:14 | XMS_ITS | Encounter Summary ---
Author Name [facility] [place] [facility] [place] [facility] [place] [facility] [place] Address [address] [place] [address] Care Team Providers Care Cryptozoologist Name Role Phone CADEN FELIZ Primary Care [...] PLAN I Aug 19, 2019 PLAN I [id number] MEEK,GR ICEL PATIENT [employer] OPTIONS MEDICARE SUPPLEMEN MARCIA PLANM Y Aug 19, 2019 PLANMY [id number] [phone] MEEK,GR ICEL PATIENT [employer] OPTIONS MEDICARE SUPPLEMEN MARCIA AARP MEDIC ARE SUPPL Aug 19, 2019 PLAN MY [id number] [phone] MEEK,GR ICEL PATIENT AARP INS MEDICARE SUPPLEMEN MARCIA PLANM Y Aug 19, 2019 PLANMY [id number] MEEK,GR ICEL PATIENT AARP MED SUPP MEDICARE SUPPLEMEN MARCIA Jul 19, 2010 PLANMY [id number] MEEK,GR ICEL PATIENT MEDICARE (WNR) MEDICARE () PART B Aug 19, 2008 PART B [id number] MEEK,GR ICEL PATIENT MEDICARE (WNR) MEDICARE () PART B Aug 19, 2008 PART B [id number] [phone] MEEK,GR ICEL PATIENT MEDICARE (WNR) MEDICARE () PART B Aug 19, 2008 PART B [id number] MEEK,GR ICEL PATIENT MEDICARE (WNR) MEDICARE () PART B Aug 19, 2008 PART B [id number] MEEK,GR ICEL PATIENT MEDICARE (WNR) MEDICARE () PART B Aug 19, 2008 PART B [id number] [phone] MEEK,GR ICEL PATIENT MEDICARE (WNR) MEDICARE () PART B Aug 19, 2008 PART B [id number] [phone] MEEK,GR ICEL PATIENT MEDICARE (WNR) MEDICARE () PART B Aug 19, 2008 PART B [id number] MEEK,GR ICEL PATIENT MEDICARE (WNR) MEDICARE () PART A December 18, 2003 PART A [id number] MEEK,GR ICEL PATIENT MEDICARE (WNR) MEDICARE () PART A December 18, 2003 PART A [id number] MEEK,GR ICEL PATIENT MEDICARE (WNR) MEDICARE () PART A December 18, 2003 PART A [id number] [phone] MEEK,GR ICEL PATIENT MEDICARE (WNR) MEDICARE () PART A December 18, 2003 PART A [id number] MEEK,GR ICEL PATIENT MEDICARE (WNR) MEDICARE () PART A December 18, 2003 PART A [id number] MEEK,GR ICEL PATIENT MEDICARE (WNR) MEDICARE () PART A December 18, 2003 PART A [id number] SABINE MEEK PATIENT MEDICARE (WNR) MEDICARE (M) PART A December 18, 2003 PART A [id number] [phone] SABINE MEEK PATIENT Selected Encounter This section includes the information on record at [place] for the Encounter. Date/Time Encounter Type Encounter Description Reason Provider Source Feb 24, 2024 01:00 PM [facility] ICD-10-CM F43.12 Post-traumati c stress disorder, chronic MARY GIBBS IHE Encounter Template Text not used by [place] Assessments - Encounter Diagnoses This section includes the primary and secondary diagnoses documented for the Encounter. Date/Time Primary/Secondary Diagnosis Diagnosis Name Provider Source Feb 24, 2024 04:35 PM PRIMARY Post-traumatic stress disorder, chronic MARY GIBBS [place] [facility] [place] [facility] Plan of Treatment: Future Appointments (+ 6 months) and Future Tests (+/- 45 days) The Plan of Treatment section includes future care activities for the patient from [facility] [place] [facility] This section includes future appointments and future orders which are active, pending or scheduled. Future Appointments This section includes appointments that were scheduled to occur 6 months from the date of the Encounter, up to a maximum of 20 appointments. The data comes from all [place] treatment facilities. Appointment Date/Time Appointment Type Appointme nt Facility Name Feb 28, 2024 11:30 AM AMBULATORY - MEDICINE [facility] [place] [facility] Mar 02, 2024 01:00 PM AMBULATORY - [place]ATRY [place] [facility] [place] [facility] Mar 06, 2024 09:30 AM AMBULATORY - MEDICINE [place] [facility] [place] [facility] Mar 09, 2024 01:00 PM AMBULATORY - [place]ATRY [place] [facility] [place] [facility] Mar 11, 2024 03:15 PM AMBULATORY - [place]ICINE [place] [facility] [place] [facility] Mar 18, 2024 08:30 AM AMBULATORY - [place]ICINE [place] [facility] [place] [facility] Mar 23, 2024 01:00 PM AMBULATORY [place]RY [place] [facility] [place] [facility] Mar 30, 2024 01:00 PM AMBULATORY - [place]ATRY [place] [facility] [place] [facility] Apr 06, 2024 12:30 PM AM[facility] [place] [facility]ICINE [place] [facility] [place] [facility] Apr 06, 2024 01:00 PM AM[facility]ULATORY [facility] MEDICINE [facility] [place] [facility] Apr 23, 2024 08:40 AM [facility] [place] [facility] May 08, 2024 08:00 AM [facility] [place] [facility] May 11, 2024 01:00 PM AMBULATORY - PS[facility]IATRY [place] [facility] [place] [facility] May 18, 2024 01:00 PM AMBULATORY - PS[place]ATRY [place] [facility] [place] [facility] May 20, 2024 09:30 AM AMBULATORY - MEDICINE [facility] [place] [facility] May 25, 2024 01:00 PM AMBULATORY - PS[place]CHIATRY [place] [facility] [place] [facility] Jun 08, 2024 09:30 AM AMBULATORY - PS[place]IATRY [place] [facility] [place] [facility] Jun 08, 2024 01:00 PM AMBULATORY - PS[place]IATRY [place] [facility] [place] [facility] Jun 15, 2024 01:00 PM AMBULATORY - PS[place]IATRY [place] [facility] [place] [facility] Jun 19, 2024 09:00 AM AMBULATORY - PS[place]ATRY [place] [facility] [place] [facility] Active, Pending, and Scheduled Orders This section includes a listing of several types of active, pending, and scheduled orders, including clinic medications orders, diagnostic test orders, procedure orders and consult orders; where the start date of the order is 45 days before the date of the Encounter or 45 days after the date of theEncounter. The data comes from all [place] treatment facilities. Test Date/Time Test Type Test Details Facility Name Feb 28, 2024 12:49 PM Consult Order COMMUNITY CARE-CARDIOLOGY Cons Occupational Therapist Home Based's Choice [place] [facility] [place] [facility] Lab Results: +/- 30 days of the [...] Range Comment Feb 28, 2024 01:01 PM [facility] THYROID T4 FREE(FT4) (WROX) Specimen Type: SERUM No comment entered. Ordering Provider: CADEN FELIZ Report Released Date/Time: Feb 28, 2024 12:47 PM Reporting Lab: [facility] [address] [address] Performing Lab: [facility] [address] [address] THYROID T4 FREE(FT4) (WROX) 0.93 ng/dL 0.6-1.6 Feb 28, 2024 01:01 PM [facility] TSH Specimen Type: SERUM No comment entered. Ordering Provider: CADEN FELIZ Report Released Date/Time: Feb 28, 2024 12:47 PM Reporting Lab: [facility] [address] [address] Performing Lab: [address] [address] TSH 0.54 u[IU]/mL 0.35-5.00 Feb 28, 2024 01:01 PM [facility] LIVER FUNCTION Specimen Type: SERUM No comment entered. Ordering Provider: CADEN FELIZ Report Released Date/Time: Feb 28, 2024 12:47 PM Reporting Lab: [facility] [address] [address] Performing Lab: [address] [address] PROTEIN,TOTAL 7.0 g/dL 6.0-8.3 ALBUMIN 4.2 g/dL 3.5-5.0 ALKALINE PHOSPHATASE 62 U/L 40-150 AST 15 U/L 5-34 ALT 20 U/L BILIRUBIN, TOTAL 0.4 mg/dL 0.2-1.2 Feb 28, 2024 01:01 PM [facility] HEMOGLOBIN A1C PANEL Specimen Type: BLOOD Comment: [...] Feb 28, 2024 12:47 PM Reporting Lab: [address] [address] Performing Lab: [address] [address] HEMOGLOBIN A1C 6.2 H 4.0-5.6 Feb 28, 2024 01:01 PM [facility] BASIC METABOLIC PANEL (non-fasting) Specimen Type: SERUM No comment entered. Ordering Provider: CADEN FELIZ Report Released Date/Time: Feb 28, 2024 12:47 PM Reporting Lab: [address] [address] Performing Lab: [address] [address] UREA NITROGEN 10 mg/dL 7-25 GLUCOSE 148 mg/dL H 65-100 SODIUM 140 mmol/L 135-145 POTASSIUM 4.7 mmol/L 3.5-5.0 CHLORIDE 101 mmol/L 100-110 CO2 30 meq/L 20-30 CREATININE, Serum 0.70 mg/dL 0.50-1.40 eGFR(CKD-EPI 2020) >90 mL/min >60 Feb 28, 2024 01:01 PM [facility] CBC AND DIFF (AUTO) Specimen Type: BLOOD No comment entered. Ordering Provider: CADEN FELIZ Report Released Date/Time: Feb 28, 2024 12:47 PM Reporting Lab: [address] [address] Performing Lab: [address] [address] WBC 3.39 10*3/uL L 4.50-11.00 RBC 3.84 [...] place. Date/Time Current Smoking Status Comment [facility] Feb 08, 2023 10:00 AM VA-TOBACCO FORMER USER [facility] Tobacco Use History This section includes a history of the smoking, or tobacco-related health factors, that were collected on or before the date of the Encounter. The data comes from the [place] facility where the Encounter took place. Date/Time Smoking Status/Tobac co Use Comment [facility] Feb 08, 2023 10:00 AM [place]-TO[place]AC[place] QUIT 15 YRS OR MORE [facility] Mar 06, 2022 02:30 PM VA-TOBACCO FORMER USER [facility] Mar 06, 2022 02:30 PM VA-TOBACCO QUIT 15 YRS OR MORE [facility] [place] [facility] Apr 04, 2021 10:28 AM VA-TOBACCO NEVER USED [facility] [place] [facility] May 03, 2020 02:00 PM VA-TOBACCO NEVER USED [place] [facility] [place] [facility] Feb 25, 2019 08:14 AM VA-TOBACCO FORMER USER [place] [facility] [place] [facility] Feb 25, 2019 08:14 AM VA-TOBACCO QUIT 5 TO < 15 YRS [facility] [place] [facility] Apr 04, 2018 10:41 AM QUIT TOBACCO USE 1-7 YEARS AGO [facility] [place] [facility] Oct 28, 2017 10:18 AM QUIT TOBACCO USE 1-7 YEARS AGO [facility] [place] [facility] Jan 22, 2017 01:08 PM QUIT TOBACCO USE 1-7 YEARS AGO [facility] [place] [facility] Jul 18, 2016 01:34 PM QUIT TOBACCO USE 1-7 YEARS AGO [facility] [place] [facility] January 10, 2016 10:32 AM QUIT TOBACCO USE 1-7 YEARS AGO [facility] [place] [facility] Oct 13, 2015 11:05 AM QUIT TOBACCO USE 1-7 YEARS AGO [facility] [place] [facility] Oct 19, 2014 01:53 PM QUIT TOBACCO USE > 7 YEARS AGO [facility] [place] [facility] January 02, 2014 01:30 AM QUIT TOBACCO USE IN PAST YEAR [place] [facility] [place] [facility] Jun 18, 2013 09:00 AM CURRENT SMOKER 6 cigarettes qd [place] [facility] [place] [facility] Jun 18, 2013 09:00 AM V1-PT DECLINES TOBACCO CESSATION MEDS [place] [facility] [place] [facility] Jun 18, 2013 09:00 AM V1-PT NOT INTERESTED IN QUIT TOBACCO USE [facility] [place] [facility] December 24, 2012 10:51 AM V1-PT DECLINES REF TO TOBACCO CESS PRGM [place] [facility] [place] [facility] December 24, 2012 10:51 AM V1-PT DECLINES TOBACCO CESSATION MEDS [place] [facility] [place] [facility] December 24, 2012 10:51 AM V1-PT THINKING ABOUT QUIT TOBACCO USE [facility] Jul 15, 2012 10:19 AM QUIT TOBACCO USE IN PAST YEAR [facility] Jan 25, 2012 05:02 PM QUIT TOBACCO USE IN PAST YEAR [facility] Sep 28, 2011 10:09 AM CURRENT SMOKER 5 cigarettes a day [facility] Jun 15, 2011 02:23 PM V1-PT DECLINES REF TO TOBACCO CESS PRGM [facility] Jun 15, 2011 02:23 PM V1-PT READY TO QUIT TOBACCO USE [facility] Apr 13, 2011 10:31 AM V1-PT DECLINES REF TO TOBACCO CESS PRGM [facility] Apr 13, 2011 10:31 AM V1-PT RECEIVES TOBACCO CESS MEDS OUTSIDE [facility] Apr 13, 2011 10:31 AM V1-PT THINKING ABOUT QUIT TOBACCO USE [facility] Oct 16, 2010 08:52 AM QUIT TOBACCO USE IN PAST YEAR [facility] May 12, 2010 02:08 PM V1-PT [facility]CLINES [facility] May 12, 2010 02:08 PM V1-PT READY TO QUIT TOBACCO USE [facility] May 12, 2010 12:45 PM CURRENT SMOKER 3 cigarettes a day [facility] Radiology Reports: +/- 30 days of the [...] the Encounter. The data comes from all [facility] facilities. Date/Time Radiology Report Provider Source Feb 28, 2024 12:54 PM CHEST (2 VIEWS): PEBBLES MEEK [id number] -[id number] F Exm Date: FEB 28, 2024@12:54 Req Phys: CADEN FELIZ Loc: CWM/NO/PACT 6 WH (Req'g Loc) Img Loc: [facility]/BUILDING 1 Service: Unknown [facility] , (Case [id number] COMPLETE) CHEST (2 VIEWS) (RAD Detailed) CPT:07568 Reason for Study: 73yo with ashtma and genearlized puritis Clinical History: to check lung dumont and lympthadenopathy Report Status: Verified Date Reported: FEB 28, 2024 Date Verified: FEB 28, 2024 Product Manager Medical Device E-Sig:/ES/NEMO RODRIGUEZ JR Report: Study: PA and [...] Primary Interpreting Staff: NEMO RODRIGUEZ JR, Radiologist (Product Manager Medical Device) /NEMO WEISS JR [facility] Encounter Notes: All associated encounter notes This section contains the clinical notes associated to the Encounter. Date/Time Encounter Note(s) Provider Source Feb 24, 2024 04:34 PM PSYCHIATRY GROUP COUNSELING NOTE: LOCAL TITLE: PSYCHOLOGY GROUP NOTE STANDARD TITLE: PSYCHIATRY GROUP COUNSELING NOTE DATE OF NOTE: FEB 24, 2024@16:34 ENTRY DATE: FEB 24, 2024@16:35:08 AUTHOR: LO GIBBS EXP COSIGNER: URGENCY: STATUS: [facility]PLE[facility] [place] Mindful Compassion Group Therapy Note IDENTITY VERIFICATION: [X] Patient Name [X] Visual recognition [ ] Birthdate [ ] Social Security # ~~~ Twisting Press Operator: Abdirashid Whaley MS, and Lo Gibbs, PhD PROCEDURE: 60-minute interactive hybrid VVC/F2F group therapy session Problem: Difficulty being present in the moment and fostering compassion Objective: Explored and practice mindful compassion Number of Veterans Present in Group: 7 GROUP CONTENT: Group members engaged in a metta-loving kindness practice. Group members checked in by speaking about how partication in this group has impacted them. Group members participated in a mindfulness practice involving the [employer] art of [employer]. They listened a piece of music, mindfully observed images of pottery repaired through [employer], and considered how to relate to their own humanity. Group members said farewell and thanked group air carrier operations inspector Abdirashid Whaley MS. PROGRESS: [place] arrived on time and was an active and appropriate participant. [place] participated in the mindfulness practices and group discussions. Mental Status was not formally assessed due to the nature of the encounter. maintained appropriate eye contact and was alert. spoke clearly and coherently. 's thoughts were linear and related. [place]'s affect was congruent to content and appropriate in range. No clinical signs of intoxication, withdrawal, psychosis, or cognitive impairment were observed. No evidence of suicidal or homicidal ideation. There was no evidence of AH/VH or delusions. was future oriented. DSM-V DIAGNOSTIC IMPRESSIONS(per chart): PTSD, chronic PLAN: [place] will continue to participate in the Mindful Compassion Group on Mondays at 1pm. /jeana/ Lo Gibbs, PhD Clinical Psychologist, [facility] Signed: 02/24/2024 16:36 LO GIBBS [place] [facility]
--- OUTSIDE RECORDS SUMMARY | 2024-08-04 17:14 | XMS_ITS ---
Author Name [facility] Organization [facility] Address [address] [place] [address] Care Team Providers Care Help Desk Assistant Name Role Phone CADEN FELIZ Primary [...] PLAN I Aug 19, 2019 PLAN I [id number] [phone] MEEK,SABINE ICEL PATIENT [employer] OPT[employer] MEDICARE SUPPLEMEN MARCIA PLANM Y Aug 19, 2019 PLANMY [id number] [phone] MEEK,GR ICEL PATIENT [employer] OPTIONS MEDICARE SUPPLEMEN MARCIA AARP MEDIC ARE SUPPL Aug 19, 2019 PLAN MY [id number] MEEK,GR ICEL PATIENT A[employer] INS MEDICARE SUPPLEMEN MARCIA PLANM Y Aug 19, 2019 PLANMY [id number] [phone] MEEK,GR ICEL PATIENT AARP MED SUPP MEDICARE SUPPLEMEN MARCIA Jul 19, 2010 PLANMY [id number] MEEK,GR ICEL PATIENT MEDICARE (WNR) MEDICARE () PART B Aug 19, 2008 PART B [id number] [phone] MEEK,GR ICEL PATIENT MEDICARE (WNR) MEDICARE () PART B Aug 19, 2008 PART B [id number] MEEK,GR ICEL PATIENT MEDICARE (WNR) MEDICARE () PART B Aug 19, 2008 PART B [id number] MEEK,GR ICEL PATIENT MEDICARE (WNR) MEDICARE () PART B Aug 19, 2008 PART B [id number] [phone] MEEK,GR ICEL PATIENT MEDICARE (WNR) MEDICARE () PART B Aug 19, 2008 PART B [id number] [phone] MEEK,GR ICEL PATIENT MEDICARE (WNR) MEDICARE () PART B Aug 19, 2008 PART B [id number] MEEK,GR ICEL PATIENT MEDICARE (WNR) MEDICARE () PART B Aug 19, 2008 PART B [id number] MEEK,GR ICEL PATIENT MEDICARE (WNR) MEDICARE () PART A December 18, 2003 PART A [id number] MEEK,GR ICEL PATIENT MEDICARE (WNR) MEDICARE () PART A December 18, 2003 PART A [id number] MEEK,GR ICEL PATIENT MEDICARE (WNR) MEDICARE () PART A December 18, 2003 PART A [id number] [phone] MEEK,GR ICEL PATIENT MEDICARE (WNR) MEDICARE () PART A December 18, 2003 PART A [id number] MEEK,GR ICEL PATIENT MEDICARE (WNR) MEDICARE () PART A December 18, 2003 PART A [id number] MEEK,GR ICEL PATIENT MEDICARE (WNR) MEDICARE () PART A December 18, 2003 PART A [id number] SABINE MEEK PATIENT MEDICARE (WNR) MEDICARE (M) PART A December 18, 2003 PART A [id number] [phone] SABINE MEEK PATIENT Selected Encounter This section includes the information on record at [place] for the Encounter. Date/Time Encounter Type Encounter Description Reason Pro vider Source Jan 22, 2024 12:00 PM Outpatient Encounter COMMUNITY CARE CONSULT IHE Encounter Template Text not used by [place] Plan of Treatment: Future Appointments (+ 6 months) and Future Tests (+/- 45 days) The Plan of Treatment section includes future care activities for the patient from all [place] treatmentfacilities. This section includes future appointments and [...] AMBULATORY - [facility]AT[facility] [place] [facility] Feb 03, 2024 01:00 PM AMBULATORY - PS[facility]AT[facility] [place] [facility] Feb 10, 2024 01:00 PM AMBULATORY - PS[facility]CHIATRY [facility] [place] [facility] Feb 10, 2024 02:00 PM AMBULATORY - NONE [facility] [place] [facility] Feb 17, 2024 12:30 PM AMBULATORY - NONE [facility] [place] [facility] Feb 17, 2024 01:00 PM AMBULATORY [facility] PS[facility]IAT[facility] [place] [facility] Feb 21, 2024 08:30 AM AMBULATORY - MEDICINE [facility] [place] [facility] Feb 24, 2024 01:00 PM AMBULATORY - PS[facility]CHIATRY [facility] [place] [facility] Feb 28, 2024 11:30 AM AMBULATORY - MEDICINE [facility] [place] [facility] Mar 02, 2024 01:00 PM AMBULATORY - PS[facility]CHIATRY [facility] [place] [facility] Mar 06, 2024 09:30 AM AMBULATORY - MEDICINE [facility] [place] [facility] Mar 09, 2024 01:00 PM AMBULATORY - PS[facility]CHIATRY [facility] [place] [facility] Mar 11, 2024 03:15 PM AMBULATORY - MEDICINE [facility] [place] [facility] Mar 18, 2024 08:30 AM AMBULATORY - MEDICINE [facility] [place] [facility] Mar 23, 2024 01:00 PM AMBULATORY - PS[facility]CHIATRY [facility] [place] [facility] Mar 30, 2024 01:00 PM AMBULATORY - PS[facility]CHIATRY [facility] [place] [facility] Apr 06, 2024 12:30 PM AMBULATORY - MEDICINE [facility] [place] [facility] Apr 06, 2024 01:00 PM AMBULATORY - MEDICINE [facility] [place] [facility] Apr 23, 2024 08:40 AM AMBULATORY - PS[facility]CHIATRY [facility] [place] [facility] May 08, 2024 08:00 AM [facility] Active, Pending, and Scheduled Orders This [...] 12:49 PM Consult Order COMMUNITY CARE-CARDIOLOGY Cons Regulatory Agency Director's Choice [facility] Social History: Smoking Status (Most current) [...] Center it Feb 08, 2023 10:00 AM [place]-TOBACCO QUIT 15 YRS OR MORE [facility] Tobacco Use History This section includes a history of the smoking, or tobacco-related health factors, that were collected on or before the date of the Encounter. The data comes from the [place] facility where the Encounter took place. Date/Time Smoking Status/Tobac co Use Comment Facility Feb 08, 2023 10:00 AM VA-TOBACCO QUIT 15 YRS OR MORE [facility] [place] [facility] Mar 06, 2022 02:30 PM VA-TOBACCO FORMER USER [facility] [place] [facility] Mar 06, 2022 02:30 PM VA-TOBACCO QUIT 15 YRS OR MORE [facility] [place] [facility] Apr 04, 2021 10:28 AM VA-TOBACCO NEVER USED [facility] [place] [facility] May 03, 2020 02:00 PM VA-TOBACCO NEVER USED [facility] [place] [facility] Feb 25, 2019 08:14 AM VA-TOBACCO FORMER USER [facility] [place] [facility] Feb 25, 2019 08:14 AM VA-TOBACCO QUIT 5 TO < 15 YRS [facility] [place] [facility] Apr 04, 2018 10:41 AM QUIT TOBACCO USE 1-7 YEARS AGO [facility] [place] [facility] Oct 28, 2017 10:18 AM QUIT TOBACCO USE 1-7 YEARS AGO [facility] [place] [facility] Jan 22, 2017 01:08 PM QUIT TOBACCO USE 1-7 YEARS AGO [facility] [place] [facility] Jul 18, 2016 01:34 PM QUIT TOBACCO USE 1-7 YEARS AGO [facility] [place] [facility] January 10, 2016 10:32 AM QUIT TOBACCO USE 1-7 YEARS AGO [facility] [place] [facility] Oct 13, 2015 11:05 AM QUIT TOBACCO USE 1-7 YEARS AGO [facility] [place] [facility] Oct 19, 2014 01:53 PM QUIT TOBACCO USE > 7 YEARS AGO [facility] [place] [facility] January 02, 2014 01:30 AM QUIT TOBACCO USE IN PAST YEAR [facility] [place] [facility] Jun 18, 2013 09:00 AM CURRENT SMOKER 6 cigarettes qd [facility] [place] [facility] Jun 18, 2013 09:00 AM V1-PT DECLINES TOBACCO CESSATION MEDS [facility] [place] [facility] Jun 18, 2013 09:00 AM V1-PT NOT INTERESTED IN QUIT TOBACCO USE [facility] [place] [facility] December 24, 2012 10:51 AM V1-PT DECLINES REF TO TOBACCO CESS [facility] December 24, 2012 10:51 AM V1-PT DECLINES TOBACCO CESSATION MEDS [facility] December 24, 2012 10:51 AM V1-PT THINKING ABOUT QUIT [facility]BACCO USE [facility] Jul 15, 2012 10:19 AM QUIT TOBACCO USE IN PAST YEAR [facility] Jan 25, 2012 05:02 PM QUIT TOBACCO USE IN PAST YEAR [facility] Sep 28, 2011 10:09 AM CURRENT SMOKER 5 cigarettes a day [facility] Jun 15, 2011 02:23 PM V1-PT DECLINES REF TO TOBACCO CESS [facility] Jun 15, 2011 02:23 PM V1-PT READY TO QUIT TOBACCO USE [facility] Apr 13, 2011 10:31 AM V1-PT DECLINES REF TO TOBACCO CESS [facility] Apr 13, 2011 10:31 AM [...] a day [facility] Encounter Notes: All associated encounter notes This section contains the clinical notes associated to the Encounter. Date/Time Encounter Note(s) Provider Source Jan 22, 2024 12:00 PM ACUPUNCTURE CONSUL T: LOCAL TITLE: CONSULT REPORT/ACUPUNCTURE STANDARD TITLE: ACUPUNCTURE CONSULT DATE OF NOTE: JAN 22, 2024@12:00 ENTRY DATE: FEB 24, 2024@10:15:19 AUTHOR: JERSEY MORAN EXP COSIGNER: URGENCY: STATUS: COMPLETED VistA Imaging - Scanned Document SCANNED DOCUMENT SIGNATURE NOT REQUIRED Electronically Filed: 02/24/2024 by: JERSEY MORAN JACKAROO JERSEY MORAN [facility]
--- OUTSIDE RECORDS SUMMARY | 2024-08-04 17:16 | XMS_ITS | Encounter Summary ---
Author Name [facility] [place] [facility] [place] [facility] [facility] [place] Address [address] [place] [address] Care Team Providers Care County Agent Name Role Phone CADEN FELIZ Primary Care [...] PLAN I Aug 19, 2019 PLAN I [id number] [phone] MEEK,GR ICEL PATIENT [employer] OPTIONS MEDICARE SUPPLEMEN MARCIA PLANM Y Aug 19, 2019 PLANMY [id number] MEEK,GR ICEL PATIENT [employer] OPTIONS MEDICARE SUPPLEMEN MARCIA AARP MEDIC ARE SUPPL Aug 19, 2019 PLAN MY [id number] MEEK,GR ICEL PATIENT A[employer] INS MEDICARE SUPPLEMEN MARCIA PLANM Y Aug 19, 2019 PLANMY [id number] MEEK,GR ICEL PATIENT AARP MED SUPP MEDICARE SUPPLEMEN MARCIA Jul 19, 2010 PLANMY [id number] MEEK,GR ICEL PATIENT MEDICARE (WNR) MEDICARE () PART B Aug 19, 2008 PART B [id number] MEEK,GR ICEL PATIENT MEDICARE (WNR) MEDICARE () PART B Aug 19, 2008 PART B [id number] [phone] MEEK,GR ICEL PATIENT MEDICARE (WNR) MEDICARE () PART B Aug 19, 2008 PART B [id number] [phone] MEEK,GR ICEL PATIENT MEDICARE (WNR) MEDICARE () PART B Aug 19, 2008 PART B [id number] [phone] MEEK,GR ICEL PATIENT MEDICARE (WNR) MEDICARE () PART B Aug 19, 2008 PART B [id number] MEEK,GR ICEL PATIENT MEDICARE (WNR) MEDICARE () PART B Aug 19, 2008 PART B [id number] MEEK,GR ICEL PATIENT MEDICARE (WNR) MEDICARE () PART B Aug 19, 2008 PART B [id number] [phone] MEEK,GR ICEL PATIENT MEDICARE (WNR) MEDICARE () PART A December 18, 2003 PART A [id number] MEEK,GR ICEL PATIENT MEDICARE (WNR) MEDICARE () PART A December 18, 2003 PART A [id number] MEEK,GR ICEL PATIENT MEDICARE (WNR) MEDICARE () PART A December 18, 2003 PART A [id number] [phone] MEEK,GR ICEL PATIENT MEDICARE (WNR) MEDICARE () PART A December 18, 2003 PART A [id number] MEEK,GR ICEL PATIENT MEDICARE (WNR) MEDICARE () PART A December 18, 2003 PART A [id number] MEEK,GR ICEL PATIENT MEDICARE (WNR) MEDICARE () PART A December 18, 2003 PART A [id number] SABINE MEEK PATIENT MEDICARE (WNR) MEDICARE (M) PART A December 18, 2003 PART A [id number] SABINE MEEK PATIENT Selected Encounter This section includes the information on record at [place] for the Encounter. Date/Time Encounter Type Encounter Description Reason Provider Source Mar 02, 2024 01:00 PM [facility] ICD-10-CM F43.12 Post-traumati c stress disorder, chronic MARY GIBBS E IHE Encounter Template Text not used by [place] Assessments - Encounter Diagnoses This section includes the primary and secondary diagnoses documented for the Encounter. Date/Time Primary/Secondary Diagnosis Diagnosis Name Provider Source Mar 02, 2024 02:40 PM PRIMARY Post-traumatic stress disorder, chronic MARY GIBBS [facility] Mar 02, 2024 02:40 PM SECONDARY Other recurrent depressive disorders MARY GIBBS [facility] Plan of Treatment: Future Appointments (+ 6 months) and Future Tests (+/- 45 days) The Plan of Treatment section includes future care activities for the patient from [facility]. This section includes future appointments and future orders which are active, pending or scheduled. Future Appointments This section includes appointments that were scheduled to occur 6 months from the date of the Encounter, up to a maximum of 20 appointments. The data comes from all [place] treatment facilities. Appointment Date/Time Appointment Type Appointme nt Facility Name Mar 06, 2024 09:30 AM AMBULATORY - MEDICINE [facility] Mar 09, 2024 01:00 PM AMBULATORY - PSYCHIATRY [facility] Mar 11, 2024 03:15 PM AMBULATORY - MEDICINE [facility] Mar 18, 2024 08:30 AM AMBULATORY - MEDICINE [facility] Mar 23, 2024 01:00 PM AMBULATORY - PSYCHIATRY [facility] Mar 30, 2024 01:00 PM AMBULATORY - PSYCHIATRY [facility] Apr 06, 2024 12:30 PM AMBULATORY - MEDICINE [facility] Apr 06, 2024 01:00 PM AMBULATORY - MEDICINE [facility] Apr 23, 2024 08:40 AM AMBULATORY - PSYCHIATRY [facility] May 08, 2024 08:00 AM AMBULATORY - MEDICINE [facility] May 11, 2024 01:00 PM AMBULATORY - PSYCHIATRY [facility] May 18, 2024 01:00 PM AMBULATORY - PSYCHIATRY [facility] May 20, 2024 09:30 AM AMBULATORY - MEDICINE [facility] May 25, 2024 01:00 PM AMBULATORY - PSYCHIATRY [facility] Jun 08, 2024 09:30 AM AMBULATORY - PSYCHIATRY [facility] Jun 08, 2024 01:00 PM AMBULATORY - PSYCHIATRY [facility] Jun 15, 2024 01:00 PM AMBULATORY - PSYCHIATRY [facility] Jun 19, 2024 09:00 AM AMBULATORY - PSYCHIATRY [facility] Jun 27, 2024 09:30 AM AMBULATORY - MEDICINE [facility] Jul 06, 2024 01:00 PM AMBULATORY - PSYCHIATRY [facility] Active, Pending, and Scheduled Orders This section includes a listing of several types of active, pending, and scheduled orders, including clinic medications orders, diagnostic test orders, procedure orders and consult orders; where the start date of the order is 45 days before the date of the Encounter or 45 days after the date of theEncounter. The data comes from all [place] treatment facilities. Test Date/Time Test Type Test Details Facility Name Feb 28, 2024 12:49 PM Consult Order COMMUNITY CARE-CARDIOLOGY Cons Cytogenetic Technician's Choice [facility] Lab Results: +/- 30 days [...] Range Comment Feb 28, 2024 01:01 PM [facility] THYROID T4 FREE(FT4) (WROX) Specimen Type: SERUM No comment entered. Ordering Provider: CADEN FELIZ Report Released Date/Time: Feb 28, 2024 12:47 PM Reporting [facility] [address] [address] Performing Lab: [facility] [address] [address] THYROID T4 FREE(FT4) (WROX) 0.93 ng/dL 0.6-1.6 Feb 28, 2024 01:01 PM [facility] TSH Specimen Type: SERUM No comment entered. Ordering Provider: CADEN FELIZ Report Released Date/Time: Feb 28, 2024 12:47 PM Reporting Lab: [facility] [address] [address] Performing Lab: [facility] [address] [address] TSH 0.54 u[IU]/mL 0.35-5.00 Feb 28, 2024 01:01 PM [facility] LIVER FUNCTION Specimen Type: SERUM No comment entered. Ordering Provider: CADEN FELIZ Report Released Date/Time: Feb 28, 2024 12:47 PM Reporting Lab: [facility] [address] [address] Performing Lab: [facility] [address] PROTEIN,TOTAL 7.0 g/dL 6.0-8.3 ALBUMIN 4.2 g/dL 3.5-5.0 ALKALINE PHOSPHATASE 62 U/L 40-150 AST 15 U/L 5-34 ALT 20 U/L BILIRUBIN, TOTAL 0.4 mg/dL 0.2-1.2 Feb 28, 2024 01:01 PM [facility] HEMOGLOBIN A1C PANEL Specimen Type: [...] Feb 28, 2024 12:47 PM Reporting Lab: [address] [address] Performing Lab: [address] [address] HEMOGLOBIN A1C 6.2 H 4.0-5.6 Feb 28, 2024 01:01 PM [facility] BASIC METABOLIC PANEL (non-fasting) Specimen Type: SERUM No comment entered. Ordering Provider: CADEN FELIZ Report Released Date/Time: Feb 28, 2024 12:47 PM Reporting Lab: [address] [address] Performing Lab: [address] [address] UREA NITROGEN 10 mg/dL 7-25 GLUCOSE 148 mg/dL H 65-100 SODIUM 140 mmol/L 135-145 POTASSIUM 4.7 mmol/L 3.5-5.0 CHLORIDE 101 mmol/L 100-110 CO2 30 meq/L 20-30 CREATININE, Serum 0.70 mg/dL 0.50-1.40 eGFR(CKD-EPI 2020) >90 mL/min >60 Feb 28, 2024 01:01 PM [facility] CBC AND DIFF (AUTO) Specimen Type: BLOOD No comment entered. Ordering Provider: CADEN FELIZ Report Released Date/Time: Feb 28, 2024 12:47 PM Reporting Lab: [address] [address] Performing Lab: [address] [address] WBC 3.39 10*3/uL L 4.50-11.00 RBC 3.84 [...] and tobacco- related health factors from the [place] facility where the Encounter took place. Current Smoking Status This section includes the most current smoking, or tobacco-related health factor, from the [place] facility where the Encounter took place. Date/Time Current Smoking Status Comment [facility] Feb 08, 2023 10:00 AM CO-TOBACCO QUIT 15 YRS OR MORE [facility] Tobacco Use History This section includes a history of the smoking, or tobacco-related health factors, that were collected on or before the date of the Encounter. The data comes from the [place] facility where the Encounter took place. Date/Time Smoking Status/Tobac co Use Comment [facility] Feb 08, 2023 10:00 AM CO-TOBACCO QUIT 15 YRS OR MORE [facility] Mar 06, 2022 02:30 PM VA-TOBACCO FORMER USER [facility] Mar 06, 2022 02:30 PM VA-TOBACCO QUIT 15 YRS OR MORE [facility] Apr 04, 2021 10:28 AM VA-TOBACCO NEVER USED [facility] May 03, 2020 02:00 PM VA-TOBACCO NEVER USED [facility] [...] [facility] Oct 19, 2014 01:53 PM QUIT TOBACCO USE > 7 YEARS AGO [facility] January 02, 2014 01:30 AM QUIT TOBACCO USE IN PAST YEAR [facility] Jun 18, 2013 09:00 AM CURRENT SMOKER 6 cigarettes qd [facility] Jun 18, 2013 09:00 AM V1-PT DECLINES TOBACCO CESSATION MEDS [facility] Jun 18, 2013 09:00 AM V1-PT NOT INTERESTED IN QUIT TOBACCO USE [facility] December 24, 2012 10:51 AM V1-PT DECLINES REF TO TOBACCO CESS PRGM [facility] December 24, 2012 10:51 AM V1-PT DECLINES TOBACCO CESSATION MEDS [facility] MICGonzalo [facility] December 24, 2012 10:51 AM V1-PT THINKING ABOUT QUIT TOBACCO USE [facility] Jul 15, 2012 10:19 AM QUIT TOBACCO USE IN PAST YEAR [facility] Jan 25, 2012 05:02 PM QUIT TOBACCO USE IN PAST YEAR [facility] Sep 28, 2011 10:09 AM CURRENT SMOKER 5 cigarettes a day [facility] Jun 15, 2011 02:23 PM V1-PT DECLINES REF TO TOBACCO CESS PRGM [facility] Jun 15, 2011 02:23 PM V1-PT READY TO QUIT TOBACCO USE [facility] Apr 13, 2011 10:31 AM V1-PT DECLINES REF TO TOBACCO CESS PRGM [facility] Apr 13, 2011 10:31 AM V1-PT RECEIVES TOBACCO CESS MEDS OUTSIDE [facility] Apr 13, 2011 10:31 AM V1-PT THINKING ABOUT QUIT TOBACCO USE [facility] Oct 16, 2010 08:52 AM QUIT TOBACCO USE IN PAST YEAR [facility] May 12, 2010 02:08 PM V1-PT DECLINES REF TO TOBACCO CESS PRGM [facility] May 12, 2010 02:08 PM V1-PT READY TO QUIT TOBACCO USE [facility] May 12, 2010 12:45 PM CURRENT SMOKER 3 cigarettes a day [facility] Radiology Reports: +/- 30 days [...] the Encounter. The data comes from all [facility] facilities. Date/Time Radiology Report Provider Source Feb 28, 2024 12:54 PM CHEST (2 VIEWS): PEBBLES MEEK [id number] -[id number] F Exm Date: FEB 28, 2024@12:54 Req Phys: CADEN FELIZ Pat Loc: CWM/NO/PACT 6 WH (Req'g Loc) [facility] Service: Unknown [facility] , (Case [id number] COMPLETE) CHEST (2 VIEWS) (RAD Detailed) CPT:62390 Reason for Study: 73yo with ashtma and genearlized puritis Clinical History: to check lung dumont and lympthadenopathy Report Status: Verified Date Reported: FEB 28, 2024 Date Verified: FEB 28, 2024 Construction Safety Manager E-Sig:/ES/NEMO RODRIGUEZ JR Report: Study: PA and [...] Primary Interpreting Staff: NEMO RODRIGUEZ JR, Radiologist (Construction Safety Manager) /NEMO WEISS JR [facility] Encounter Notes: All associated encounter notes This section contains the clinical notes associated to the Encounter. Date/Time Encounter Note(s) Provider Source Mar 02, 2024 02:37 PM PSYCHIATRY GROUP COUNSELING NOTE: LOCAL TITLE: PSYCHOLOGY GROUP NOTE STANDARD TITLE: PSYCHIATRY GROUP COUNSELING NOTE DATE OF NOTE: MAR 02, 2024@14:37 ENTRY DATE: MAR 02, 2024@14:37:37 AUTHOR: LO GIBBS EXP COSIGNER: URGENCY: STATUS: COMPLETED [facility] Mindful Compassion Group Therapy Note IDENTITY VERIFICATION: [X] Patient Name [X] Visual recognition [ ] Birthdate [ ] Social Security # ~~~ Flag Car Driver: Lo Gibbs, PhD PROCEDURE: 60-minute interactive hybrid VVC/F2F group therapy session Problem: Difficulty being present in the moment and fostering compassion Objective: Explored and practice mindful compassion Number of Veterans Present in Group: 7 GROUP CONTENT: Group members spoke about an intention for this group at this time. Group members reflected on the quote by Rickey Milton: Mindfulness is paying attention in a particular way: on purpose, in the present moment, and nonjudgmentally. The concepts of non-judgment and observation were explored. Group members considered the idea that suffering = pain x resistance and explored the value of mindful awareness in shifting this process. Group members engaged in two mindfulness practices: breathing and observing. They were encouraged to practice mindfulness daily. PROGRESS: arrived on time and was an active and appropriate participant. [place] participated in the mindfulness practices and group discussions. Mental Status was not formally assessed due to the nature of the encounter. [place] maintained appropriate eye contact and was alert. [place] spoke clearly and coherently. [place]'s thoughts were linear and related. [place]'s affect was congruent to content and appropriate in range. No clinical signs of intoxication, withdrawal, psychosis, or cognitive impairment were observed. No evidence of suicidal or homicidal ideation. There was no evidence of AH/VH or delusions. [place] was future oriented. DSM-V DIAGNOSTIC IMPRESSIONS(per chart): PTSD, chronic PLAN: [place] will continue to participate in the Mindful Compassion Group on Mondays at 1pm. /jeana/ Lo Gibbs, PhD Clinical Psychologist, [facility] Signed: 03/02/2024 14:44 LO GIBBS [facility]
--- OUTSIDE RECORDS SUMMARY | 2024-08-04 17:16 | XMS_ITS | Encounter Summary ---
Author Name [facility] [facility] [place] Address [address] [place] [address] Care Team Providers Care Electronics Maintenance Technician Name Role Phone CADEN FELIZ Primary [...] PLAN I Aug 19, 2019 PLAN I [id number] [phone] MEEK,SABINE ICEL PATIENT [employer] OPT[employer] MEDICARE SUPPLEMEN MARCIA PLANM Y Aug 19, 2019 PLANMY [id number] [phone] MEEK,GR ICEL PATIENT [employer] OPTIONS MEDICARE SUPPLEMEN MARCIA AARP MEDIC ARE SUPPL Aug 19, 2019 PLAN MY [id number] [phone] MEEK,GR ICEL PATIENT A[employer] INS MEDICARE SUPPLEMEN MARCIA PLANM Y Aug 19, 2019 PLANMY [id number] MEEK,GR ICEL PATIENT AARP MED SUPP MEDICARE SUPPLEMEN MARCIA Jul 19, 2010 PLANMY [id number] [phone] MEEK,GR ICEL PATIENT MEDICARE (WNR) MEDICARE () PART B Aug 19, 2008 PART B [id number] [phone] MEEK,GR ICEL PATIENT MEDICARE (WNR) MEDICARE () PART B Aug 19, 2008 PART B [id number] MEEK,GR ICEL PATIENT MEDICARE (WNR) MEDICARE () PART B Aug 19, 2008 PART B [id number] MEEK,GR ICEL PATIENT MEDICARE (WNR) MEDICARE () PART B Aug 19, 2008 PART B [id number] [phone] MEEK,GR ICEL PATIENT MEDICARE (WNR) MEDICARE () PART B Aug 19, 2008 PART B [id number] [phone] MEEK,GR ICEL PATIENT MEDICARE (WNR) MEDICARE () PART B Aug 19, 2008 PART B [id number] MEEK,GR ICEL PATIENT MEDICARE (WNR) MEDICARE () PART B Aug 19, 2008 PART B [id number] [phone] MEEK,GR ICEL PATIENT MEDICARE (WNR) MEDICARE () PART A December 18, 2003 PART A [id number] [phone] MEEK,GR ICEL PATIENT MEDICARE (WNR) MEDICARE () PART A December 18, 2003 PART A [id number] MEEK,GR ICEL PATIENT MEDICARE (WNR) MEDICARE () PART A December 18, 2003 PART A [id number] [phone] MEEK,GR ICEL PATIENT MEDICARE (WNR) MEDICARE () PART A December 18, 2003 PART A [id number] [phone] MEEK,GR ICEL PATIENT MEDICARE (WNR) MEDICARE () PART A December 18, 2003 PART A [id number] MEEK,GR ICEL PATIENT MEDICARE (WNR) MEDICARE () PART A December 18, 2003 PART A [id number] SABINE MEEK PATIENT MEDICARE (WNR) MEDICARE (M) PART A December 18, 2003 PART A [id number] SABINE MEEK PATIENT Selected Encounter This section includes the information on record at [place] for the Encounter. Date/Time Encounter Type Encounter Description Reason Pro vider Source Mar 05, 2024 10:34 AM Outpatient Encounter COMMUNITY CARE CONSULT IHE [...] - MEDICINE [place] [facility] Mar 09, 2024 01:00 PM AMBULATORY - PSYCHIATRY [facility] Mar 11, 2024 03:15 PM AMBULATORY - MEDICINE [place] [facility] Mar 18, 2024 08:30 AM AMBULATORY - MEDICINE [place] [facility] Mar 23, 2024 01:00 PM AMBULATORY - PSYCHIATRY [facility] Mar 30, 2024 01:00 PM AMBULATORY - PSYCHIATRY [facility] Apr 06, 2024 12:30 PM AMBULATORY - MEDICINE [place] [facility] Apr 06, 2024 01:00 PM AMBULATORY - MEDICINE [place] [facility] Apr 23, 2024 08:40 AM AMBULATORY - PSYCHIATRY [facility] May 08, 2024 08:00 AM AMBULATORY - MEDICINE [place] [facility] May 11, 2024 01:00 PM AMBULATORY - PSYCHIATRY [facility] May 18, 2024 01:00 PM AMBULATORY - PSYCHIATRY [facility] May 20, 2024 09:30 AM AMBULATORY - MEDICINE [place] [facility] May 25, 2024 01:00 PM AMBULATORY - PSYCHIATRY [facility] Jun 08, 2024 09:30 AM AMBULATORY - PS[facility]CHIATRY [facility] Jun 08, 2024 01:00 PM [facility] Jun 15, 2024 01:00 PM AMBULATORY - PSYCHIATRY [facility] Jun 19, 2024 09:00 AM AMBULATORY - PSYCHIATRY [facility] Jun 27, 2024 09:30 AM [facility] [place] [facility] Jul 06, 2024 01:00 PM [facility] Active, Pending, and Scheduled Orders This [...] 12:49 PM Consult Order COMMUNITY CARE-CARDIOLOGY Cons [employer] Operator[employer] Choice [facility] Lab Results: +/- 30 days of the encounter This section includes the Chemistry and Hematology Lab Results on record with [place] for the patient. Radiology Reports and Pathology Reports are provided separately, in subsequent sections. Lab Results This section contains the Chemistry/Hematology Results that were resulted 30 days before or 30 daysafter the date of the Encounter. Date/Time Source Result Type Result - Unit Interpretation Reference Range Comment Feb 28, 2024 01:01 PM [facility] THYROID T4 FREE(FT4) (WROX) Specimen Type: SERUM No comment entered. Ordering Provider: CADEN FELIZ Report Released Date/Time: Feb 28, 2024 12:47 PM Reporting Lab: [facility] [address] [facility] [address] Performing Lab: [facility] [address] [facility] [address] THYROID T4 FREE(FT4) (WROX) 0.93 ng/dL 0.6-1.6 Feb 28, 2024 01:01 PM [facility] TSH Specimen Type: SERUM No comment entered. Ordering Provider: CADEN FELIZ Report Released Date/Time: Feb 28, 2024 12:47 PM Reporting Lab: [address] [address] Performing Lab: [address] [address] TSH 0.54 u[IU]/mL 0.35-5.00 Feb 28, 2024 01:01 PM [facility] LIVER FUNCTION Specimen Type: SERUM No comment entered. Ordering Provider: CADEN FELIZ Report Released Date/Time: Feb 28, 2024 12:47 PM Reporting Lab: [address] [address] Performing Lab: [address] [address] PROTEIN,TOTAL 7.0 g/dL 6.0-8.3 ALBUMIN 4.2 g/dL 3.5-5.0 ALKALINE PHOSPHATASE 62 U/L 40-150 AST 15 U/L 5-34 ALT 20 U/L BILIRUBIN, TOTAL 0.4 mg/dL 0.2-1.2 Feb 28, 2024 01:01 PM [facility] HEMOGLOBIN A1C PANEL Specimen Type: BLOOD Comment: [...] Feb 28, 2024 12:47 PM Reporting Lab: [address] [address] Performing Lab: [facility] [address] [facility] [address] HEMOGLOBIN A1C 6.2 H 4.0-5.6 Feb 28, 2024 01:01 PM [facility] BASIC METABOLIC PANEL (non-fasting) Specimen Type: SERUM No comment entered. Ordering Provider: CADEN FELIZ Report Released Date/Time: Feb 28, 2024 12:47 PM Reporting Lab: [facility] [address] [facility] [address] Performing Lab: [address] [address] UREA NITROGEN 10 mg/dL 7-25 GLUCOSE 148 mg/dL H 65-100 SODIUM 140 mmol/L 135-145 POTASSIUM 4.7 mmol/L 3.5-5.0 CHLORIDE 101 mmol/L 100-110 CO2 30 meq/L 20-30 CREATININE, Serum 0.70 mg/dL 0.50-1.40 eGFR(CKD-EPI 2020) >90 mL/min >60 Feb 28, 2024 01:01 PM [facility] CBC AND DIFF (AUTO) Specimen Type: BLOOD No comment entered. Ordering Provider: CADEN FELIZ Report Released Date/Time: Feb 28, 2024 12:47 PM Reporting Lab: [facility] [address] [facility] [address] Performing Lab: [address] [address] WBC 3.39 10*3/uL L 4.50-11.00 RBC 3.84 [...] 08, 2023 10:00 AM VA-TOBACCO FORMER USER [place] [facility] Tobacco Use History This section includes a history of the smoking, or tobacco-related health factors, that were collected on or before the date of the Encounter. The data comes from the [place] facility where the Encounter took place. Date/Time Smoking Status/Tobac co Use Comment [facility] Feb 08, 2023 10:00 AM VA-TOBACCO QUIT 15 YRS OR MORE [facility] Mar 06, 2022 02:30 PM VA-TOBACCO FORMER USER [facility] Mar 06, 2022 02:30 PM VA-TOBACCO QUIT 15 YRS OR MORE [facility] Apr 04, 2021 10:28 AM VA-TOBACCO NEVER USED [facility] May 03, 2020 02:00 PM VA-TOBACCO NEVER USED [facility] Feb 25, 2019 08:14 AM VA-TOBACCO FORMER USER [facility] Feb 25, 2019 08:14 AM VA-TOBACCO QUIT 5 TO < 15 YRS [facility] Apr 04, 2018 10:41 AM QUIT TOBACCO USE 1-7 YEARS AGO [facility] Oct 28, 2017 10:18 AM QUIT TOBACCO USE 1-7 YEARS AGO [facility] Jan 22, 2017 01:08 PM QUIT TOBACCO USE 1-7 YEARS AGO [facility] Jul 18, 2016 01:34 PM QUIT TOBACCO USE 1-7 YEARS AGO [facility] January 10, 2016 10:32 AM QUIT TOBACCO USE 1-7 YEARS AGO [facility] Oct 13, 2015 11:05 AM QUIT TOBACCO USE 1-7 YEARS AGO [facility] Oct 19, 2014 01:53 PM QUIT TOBACCO USE > 7 YEARS AGO [facility] January 02, 2014 01:30 AM QUIT TOBACCO USE IN PAST YEAR [facility] Jun 18, 2013 09:00 AM CURRENT SMOKER 6 cigarettes qd [facility] Jun 18, 2013 09:00 AM V1-PT DECLINES [facility]BACCO [facility]ESS[facility] Jun 18, 2013 09:00 AM V1-PT NOT INTERESTED IN QUIT [facility]BACCO [facility] December 24, 2012 10:51 AM V1-PT DECLINES REF TO TOBACCO CESS PRGM [facility] December 24, 2012 10:51 AM V1-PT DECLINES TOBACCO CESSATION MEDS [facility] December 24, 2012 10:51 AM V1-PT THINKING ABOUT QUIT TOBACCO USE [facility] Jul 15, 2012 10:19 AM QUIT TOBACCO USE IN PAST YEAR [facility] Jan 25, 2012 05:02 PM QUIT TOBACCO USE [facility]ST [facility]AR [facility] Sep 28, 2011 10:09 AM CURRENT SMOKER 5 cigarettes a day [facility] Jun 15, 2011 02:23 PM V1-PT DECLINES REF TO TOBACCO CESS PRGM [facility] Jun 15, 2011 02:23 PM V1-PT READY TO QUIT TOBACCO USE [facility] Apr 13, 2011 10:31 AM V1-PT DECLINES REF TO TOBACCO CESS PRGM [facility] Apr 13, 2011 10:31 AM V1-PT RECEIVES TOBACCO CESS MEDS OUTSIDE [facility] Apr 13, 2011 10:31 AM V1-PT THINKING ABOUT QUIT TOBACCO USE [facility] Oct 16, 2010 08:52 AM QUIT TOBACCO USE IN PAST YEAR [facility] May 12, 2010 02:08 PM V1-PT DECLINES REF TO TOBACCO CESS PRGM [facility] May 12, 2010 02:08 PM V1-PT READY TO QUIT TOBACCO USE [facility] May 12, 2010 12:45 PM CURRENT SMOKER 3 cigarettes a day [facility] Radiology Reports: +/- 30 days of the [...] Encounter. The data comes from all [facility] facilities. Date/Time Radiology Report Provider Source Feb 28, 2024 12:54 PM CHEST (2 VIEWS): PEBBLES MEEK [id number] [id number] F Exm Date: FEB 28, 2024@12:54 Req Phys: CADEN FELIZ Loc: CWM/NO/PACT 6 WH (Req'g Loc) Img Loc: [facility]/BUILDING 1 Service: Unknown [facility] , (Case [id number] COMPLETE) CHEST (2 VIEWS) (RAD Detailed) CPT:03782 Reason for Study: 73yo with ashtma and genearlized puritis Clinical History: to check lung dumont and lympthadenopathy Report Status: Verified Date Reported: FEB 28, 2024 Date Verified: FEB 28, [address] E-Sig:/ES/NEMO RODRIGUEZ JR Report: Study: PA and [...] Primary Interpreting Staff: NEMO RODRIGUEZ JR, Radiologist (Appellate Court Clerk) /NEMO WEISS JR [facility] Encounter Notes: All associated encounter notes This section contains the clinical notes associated to the Encounter. Date/Time Encounter Note(s) Provider Source Mar 05, 2024 10:34 AM NONVA NOTE: LOCAL TITLE: COMMUNITY CARE-CARE COORDINATION PLAN NOTE STANDARD TITLE: NONVA NOTE DATE OF NOTE: MAR 05, 2024@10:34 ENTRY DATE: MAR 05, 2024@10:34:48 AUTHOR: KIRBY BRITT EXP COSIGNER: URGENCY: STATUS: COMPLETED COMMUNITY CARE-CARE COORDINATION PLAN NOTE Has ADDENDA Nori from [facility] states that they are scheduling a CTA at [facility] for this [place]. Nori states that [facility] is requesting a separate [place] auth with [facility]'s NPI to perform CTA. Testing is being requested by [facility]. If provider in agreement, please enter new [facility]- [facility] scan consult. Thank you /jeana/ KIRBY BRITT [facility] BSN RN ALYCE Signed: 03/05/2024 10:44 Receipt Acknowledged By: 04/07/2024 10:23 /es/ CADEN FELIZ M.D. PHYSICIAN 03/10/2024 12:10 /es/ KIET FRANCIS, MSN, RN, CNL PRIMARY CARE TEAM NURSE 03/06/2024 10:24 /es/ AMERICA BALLARD, RN, BSN REGISTERED NURSE 03/05/2024 ADDENDUM STATUS: COMPLETED Enrique P: [phone] F: /jeana/ KIRBY BRITT [facility] [place] RN ALYCE Signed: 03/05/2024 10:45 03/06/2024 ADDENDUM STATUS: COMPLETED Forwarding to PACT notes that [facility] cardiology faxed over. /jeana/ KIRBY BRITT [facility] Nataliia MEAD Signed: 03/06/2024 16:17 03/10/2024 ADDENDUM STATUS: COMPLETED A CC CT-Scan consult placed and held for provider signature /jeana/ KIET FRANCIS, MSN, RN, CNL PRIMARY CARE TEAM NURSE Signed: 03/10/2024 12:10 [facility]
--- OUTSIDE RECORDS SUMMARY | 2024-08-04 17:17 | XMS_ITS | Encounter Summary ---
Author Name [facility] [place] [facility] [place] Address [address] [place] [address] Care Team Providers Care Sidehand Name Role Phone CADEN FELIZ Primary Care [...] PLAN I Aug 19, 2019 PLAN I [id number] [phone] MEEK,GR ICEL PATIENT [employer] OPTIONS MEDICARE SUPPLEMEN MARCIA PLANM Y Aug 19, 2019 PLANMY [id number] MEEK,GR ICEL PATIENT [employer] OPTIONS MEDICARE SUPPLEMEN MARCIA AARP MEDIC ARE SUPPL Aug 19, 2019 PLAN MY [id number] MEEK,GR ICEL PATIENT AARP INS MEDICARE SUPPLEMEN MARCIA PLANM Y Aug 19, 2019 PLANMY [id number] MEEK,GR ICEL PATIENT AARP MED SUPP MEDICARE SUPPLEMEN MARCIA Jul 19, 2010 PLANMY [id number] MEEK,GR ICEL PATIENT MEDICARE (WNR) MEDICARE () PART B Aug 19, 2008 PART B [id number] [phone] MEEK,GR ICEL PATIENT MEDICARE (WNR) MEDICARE () PART B Aug 19, 2008 PART B [id number] MEEK,GR ICEL PATIENT MEDICARE (WNR) MEDICARE () PART B Aug 19, 2008 PART B [id number] MEEK,GR ICEL PATIENT MEDICARE (WNR) MEDICARE () PART B Aug 19, 2008 PART B [id number] MEEK,GR ICEL PATIENT MEDICARE (WNR) MEDICARE () PART B Aug 19, 2008 PART B [id number] [phone] MEEK,GR ICEL PATIENT MEDICARE (WNR) MEDICARE () PART B Aug 19, 2008 PART B [id number] MEEK,GR ICEL PATIENT MEDICARE (WNR) MEDICARE () PART B Aug 19, 2008 PART B [id number] [phone] MEEK,GR ICEL PATIENT MEDICARE (WNR) MEDICARE () PART A December 18, 2003 PART A [id number] MEEK,GR ICEL PATIENT MEDICARE (WNR) MEDICARE () PART A December 18, 2003 PART A [id number] [phone] MEEK,GR ICEL PATIENT MEDICARE (WNR) MEDICARE () PART A December 18, 2003 PART A [id number] MEEK,GR ICEL PATIENT MEDICARE (WNR) MEDICARE () PART A December 18, 2003 PART A [id number] MEEK,GR ICEL PATIENT MEDICARE (WNR) MEDICARE () PART A December 18, 2003 PART A [id number] MEEK,GR ICEL PATIENT MEDICARE (WNR) MEDICARE () PART A December 18, 2003 PART A [id number] SABINE MEEK PATIENT MEDICARE (WNR) MEDICARE (M) PART A December 18, 2003 PART A [id number] SABINE MEEK PATIENT Selected Encounter This section includes the information on record at [place] for the Encounter. Date/Time Encounter Type Encounter Description Reason Provider Source Mar 09, 2024 01:00 PM [facility] ICD-10-CM F43.12 Post-traumati c stress disorder, chronic MARY GIBBS IHE Encounter Template Text not used by [place] Assessments - Encounter Diagnoses This section includes the primary and secondary diagnoses documented for the Encounter. Date/Time Primary/Secondary Diagnosis Diagnosis Name Provider Source Mar 09, 2024 03:04 PM PRIMARY Post-traumatic stress disorder, chronic MARY GIBBS [place] [facility] [place] [facility] Plan of Treatment: Future Appointments (+ 6 months) and Future Tests (+/- 45 days) The Plan of Treatment section includes future care activities for the patient from all [place] [facility]. This section includes future appointments and future orders which are active, pending or scheduled. Future Appointments This section includes appointments that were scheduled to occur 6 months from the date of the Encounter, up to a maximum of 20 appointments. The data comes from all [place] treatment facilities. Appointment Date/Time Appointment Type Appointme nt Facility Name Mar 11, 2024 03:15 PM AMBULATORY - MEDICINE [facility] [place] [facility] Mar 18, 2024 08:30 AM AMBULATORY - MEDICINE [facility] [facility] Mar 23, 2024 01:00 PM AMBULATORY - PSYCHIATRY [place] [facility] [facility] Mar 30, 2024 01:00 PM AMBULATORY - PSYCHIATRY [place] [facility] [facility] Apr 06, 2024 12:30 PM AMBULATORY - MEDICINE [place] [facility] [facility] Apr 06, 2024 01:00 PM AMBULATORY - MEDICINE [place] [facility] [facility] Apr 23, 2024 08:40 AM AMBULATORY - PSYCHIATRY [place] [facility] [place] [facility] May 08, 2024 08:00 AM AMBULATORY - MEDICINE [facility] [facility] May 11, 2024 01:00 PM AMBULATORY - PSYCHIATRY [facility] [place] [facility] May 18, 2024 01:00 PM AMBULATORY - PSYCHIATRY [facility] [place] [facility] May 20, 2024 09:30 AM AMBULATORY - MEDICINE [facility] [facility] May 25, 2024 01:00 PM AMBULATORY - PSYCHIATRY [facility] [place] [facility] Jun 08, 2024 09:30 AM AMBULATORY - PSYCHIATRY [facility] [place] [facility] Jun 08, 2024 01:00 PM AMBULATORY - PSYCHIATRY [facility] [place] [facility] Jun 15, 2024 01:00 PM AMBULATORY - PSYCHIATRY [facility] [place] [facility] Jun 19, 2024 09:00 AM AMBULATORY - PSYCHIATRY [facility] [place] [facility] Jun 27, 2024 09:30 AM AMBULATORY - MEDICINE [facility] [facility] Jul 06, 2024 01:00 PM AMBULATORY - PSYCHIATRY [facility] [place] [facility] Jul 13, 2024 11:30 AM AMBULATORY - MEDICINE [place] [facility] [facility] Jul 13, 2024 01:00 PM AMBULATORY - PSYCHIATRY [facility] [place] [facility] Active, Pending, and Scheduled Orders [...] 12:49 PM Consult Order COMMUNITY CARE-CARDIOLOGY [employer] Application Engineer's Choice [place] [facility] [place] [facility] Apr 21, 2024 10:05 AM Consult Order COMMUNITY CARE-MAMMOGRAPHY FEMALE SCREEN [employer] Application Engineer's Choice [place] [facility] [facility] Lab Results: +/- 30 days [...] Result - Unit Interpretation Reference Range Comment Apr 06, 2024 01:21 PM [facility] COVID-19 FLU/RSV DIAGNOSTIC PANEL Specimen Type: NASOPHARYNX Comment: This test is authorized for emergency use only. False negative results may occur if virus is present at levels below the analytical limit of detection.Negati ve results do not preclude SARS-CoV-2, influenza or RSV infection and should not be used as the sole basis for treatment or other patient management decisions.Mary siddiqi FLUVID: HCPs: https://www.fda. gov/media/732021 /download. Patients: https://www.fda. gov/media/698024 /download NOTIFIED DR FELIZ 04/06/24@7784 BY EMAILED TO INFECTION CONTROL FAXED TO [facility] Ordering Provider: CADEN FELIZ Report Released Date/Time: Apr 06, 2024 12:55 PM Reporting Lab: [address] [address] Performing Lab: [address] [address] COVID-19 PCR (FLUVID) POSITIVE HH NEGATIVE FLU A PCR (FLUVID) NEGATIVE FLU B PCR (FLUVID) NEGATIVE RSV PCR (FLUVID) NEGATIVE Apr 06, 2024 01:21 PM [facility] SARS-COV-2 VARIANT SEQ PNL(WHV) Specimen Type: NASOPHARYNX Comment: -Pangolin version 4.3.1 (data version ) -Nextclade version 3.8.2 (data version 2024-03-04) https://www.cdc. gov/coronavirus/ 2019-ncov/cases- updates/variant- surveillance/jv iant-info.html The [employer] AmpliSeq SARS CoV 2 Insight Research Assay-GX is a next-generation sequencing (NGS) assay that determines the complete genome sequence of the SARS-CoV-2 virus. The assay contains variant-tolerant primers to broaden and improve the coverage for variant detection and increase the sensitivity of the panel to enable detection from lower viral titer samples. The assay is run on the Symcircle Sequencer, which performs automated library preparation, sequencing, analysis, and reporting. The sequence analysis includes determination of viral phylogenetic lineage by comparison to the reference strain Wu[place]-Hu-1, GenBank: [id number]. Sequence determination may not be possible owing to inadequate quantity or quality of the viral RNA in the original specimen. Sequencing will not be attempted if the SARS-CoV-2 PCR assay result has a Ct > 30. Note that phylogenetic lineage assignment in some cases may shredding machine knife changer time for the same sequence as the virus continues to evolve and new sub lineages are created. The reported result will reflect the lineage assignment only at the time of initial sequence determination. This test was developed, and its performance characteristics determined by the [facility], which is certified under the Clinical Laboratory Improvement Amendments (CLIA) as qualified to perform high complexity clinical laboratory testing. This test is validated for clinical use at [facility] and should not be regarded as investigational or for research. The FDA does not require this test to go through premarket FDA review, and therefore it has not been cleared or approved by the FDA. This report was reviewed and approved by the on-service pathologist. Ordering Provider: CADEN FELIZ Report Released Date/Time: Apr 27, 2024 11:46 AM Reporting Lab: [address] [address] Performing Lab: [address] [address] SARS-COV-2 Lineage(WHV) MC.1 SARS-COV-2 Clade(WHV) 24C (Omicron) Feb 28, 2024 01:01 PM [facility] THYROID T4 FREE(FT4) (WROX) Specimen Type: SERUM No comment entered. Ordering Provider: CADEN FELIZ Report Released Date/Time: Feb 28, 2024 12:47 PM Reporting Lab: [address] [address] Performing Lab: [facility] [address] [facility] [address] THYROID T4 FREE(FT4) (WROX) 0.93 ng/dL 0.6-1.6 Feb 28, 2024 01:01 PM [facility] TSH Specimen Type: SERUM No comment entered. Ordering Provider: CADEN FELIZ Report Released Date/Time: Feb 28, 2024 12:47 PM Reporting Lab: [facility] [address] [facility] [address] Performing Lab: [address] [address] TSH 0.54 u[IU]/mL 0.35-5.00 Feb 28, 2024 01:01 PM [facility] LIVER FUNCTION Specimen Type: SERUM No comment entered. Ordering Provider: CADEN FELIZ Report Released Date/Time: Feb 28, 2024 12:47 PM Reporting Lab: [address] [address] Performing Lab: [address] [address] PROTEIN,TOTA L 7.0 g/dL 6.0-8.3 ALBUMIN 4.2 g/dL 3.5-5.0 ALKALINE PHOSPHATASE 62 U/L 40-150 AST 15 U/L 5-34 ALT 20 U/L BILIRUBIN, TOTAL 0.4 mg/dL 0.2-1.2 Feb 28, 2024 01:01 PM [facility] HEMOGLOBIN A1C PANEL Specimen Type: BLOOD Comment: Values obtained from A1C measurements can vary. For atypical A1C assays, a reported value of 7.0 could actually be between 6.72 and 7.28 if measured by a reference method. A reported value of 9.0 could actually be between 8.73 and 9.27. Ref: http://www.ngsp. org/CAPdata.asp Ordering Provider: CADEN FELIZ Report Released Date/Time: Feb 28, 2024 12:47 PM Reporting Lab: [address] [address] Performing Lab: [address] [address] HEMOGLOBIN A1C 6.2 H 4.0-5.6 Feb 28, 2024 01:01 PM [facility] BASIC METABOLIC PANEL (non-fasting) Specimen Type: SERUM No comment entered. Ordering Provider: CADEN FELIZ Report Released Date/Time: Feb 28, 2024 12:47 PM Reporting Lab: [facility] [address] [address] [address] Performing Lab: [address] [address] UREA NITROGEN 10 mg/dL 7-25 GLUCOSE 148 mg/dL H 65-100 SODIUM 140 mmol/L 135-145 POTASSIUM 4.7 mmol/L 3.5-5.0 CHLORIDE 101 mmol/L 100-110 CO2 30 meq/L 20-30 CREATININE, Serum 0.70 mg/dL 0.50-1.40 eGFR(CKD-EPI 2020) >90 mL/min >60 Feb 28, 2024 01:01 PM [facility] CBC AND DIFF (AUTO) Specimen Type: BLOOD No comment entered. Ordering Provider: CADEN FEILZ Report Released Date/Time: Feb 28, 2024 12:47 PM Reporting Lab: [address] [address] Performing Lab: [address] [address] WBC 3.39 10*3/uL L 4.50-11.00 RBC 3.84 [...] Current Smoking Status Comment [facility] Feb 08, 2023 10:00 AM VA-TOBACCO FORMER USER [place] [facility] [place] [facility] Tobacco Use History This section includes a history of the smoking, or tobacco-related health factors, that were collected on or before the date of the Encounter. The data comes from the [place] facility where the Encounter took place. Date/Time Smoking Status/Tobac co Use Comment [facility] Feb 08, 2023 10:00 AM VA-TOBACCO QUIT 15 YRS OR MORE [place] [facility] [place] [facility] Mar 06, 2022 02:30 PM VA-TOBACCO FORMER USER [facility] [facility] Mar 06, 2022 02:30 PM VA-TOBACCO QUIT 15 YRS OR MORE [facility] [facility] Apr 04, 2021 10:28 AM VA-TOBACCO NEVER USED [facility] [facility] May 03, 2020 02:00 PM VA-TOBACCO NEVER USED [facility] [facility] Feb 25, 2019 08:14 AM VA-TOBACCO FORMER USER [facility] [place] [facility] Feb 25, 2019 08:14 AM VA-TOBACCO QUIT 5 TO < 15 YRS [facility] [place] [facility] Apr 04, 2018 10:41 AM QUIT TOBACCO USE 1-7 YEARS AGO [facility] [place] [facility] Oct 28, 2017 10:18 AM QUIT TOBACCO USE 1-7 YEARS AGO [facility] [place] [facility] Jan 22, 2017 01:08 PM QUIT TOBACCO USE 1-7 YEARS AGO [facility] [place] [facility] Jul 18, 2016 01:34 PM QUIT TOBACCO USE 1-7 YEARS AGO [facility] [place] [facility] January 10, 2016 10:32 AM QUIT TOBACCO USE 1-7 YEARS AGO [facility] [place] [facility] Oct 13, 2015 11:05 AM QUIT TOBACCO USE 1-7 YEARS AGO [place] [facility] [place] [facility] Oct 19, 2014 01:53 PM QUIT TOBACCO USE > 7 YEARS AGO [place] [facility] [facility] January 02, 2014 01:30 AM [facility] [place] [facility] Jun 18, 2013 09:00 AM CURRENT SMOKER 6 cigarettes qd [place] [facility] [place] [facility] Jun 18, 2013 09:00 AM V1-PT DECLINES TOBACCO CESSATION MEDS [place] [facility] [place] [facility] Jun 18, 2013 09:00 AM V1-PT NOT INTERESTED IN QUIT TOBACCO USE [place] [facility] [place] [facility] December 24, 2012 10:51 AM V1-PT DECLINES REF TO TOBACCO CESS PRGM [place] [facility] [place] [facility] December 24, 2012 10:51 AM V1-PT DECLINES TOBACCO CESSATION MEDS [place] [facility] [place] [facility] December 24, 2012 10:51 AM V1-PT THINKING ABOUT QUIT TOBACCO USE [place] [facility] [facility] Jul 15, 2012 10:19 AM QUIT TOBACCO USE IN PAST YEAR [place] [facility] [place] [facility] Jan 25, 2012 05:02 PM QUIT TOBACCO USE IN PAST YEAR [place] [facility] [place] [facility] Sep 28, 2011 10:09 AM CURRENT SMOKER 5 cigarettes a day [place] [facility] [place] [facility] Jun 15, 2011 02:23 PM V1-PT DECLINES REF TO TOBACCO CESS PRGM [place] [facility] [facility] Jun 15, 2011 02:23 PM V1-PT READY TO QUIT TOBACCO USE [facility] Apr 13, 2011 10:31 AM V1-PT [facility] Apr 13, 2011 10:31 AM V1-PT RECEIVES TOBACCO CESS MEDS OUTSIDE [facility] Apr 13, 2011 10:31 AM V1-PT THINKING ABOUT QUIT TOBACCO USE [facility] Oct 16, 2010 08:52 AM QUIT TOBACCO USE IN PAST YEAR [facility] May 12, 2010 02:08 PM V1-PT DECLINES REF TO TOBACCO CESS PRGM [facility] May 12, 2010 02:08 PM V1-PT READY TO QUIT TOBACCO USE [facility] May 12, 2010 12:45 PM CURRENT SMOKER 3 cigarettes a day [facility] Radiology Reports: +/- 30 days [...] 12:54 PM CHEST (2 VIEWS): PEBBLES MEEK [id number] F Exm Date: FEB 28, 2024@12:54 Req Phys: CADEN FELIZ Loc: CWM/NO/PACT 6 WH (Req'g Loc) Img Loc: [facility]BUILDING 1 Service: Unknown [facility] , (Case [id number] COMPLETE) CHEST (2 VIEWS) (RAD Detailed) CPT:45196 Reason for Study: 73yo with ashtma and genearlized puritis Clinical History: to check lung dumont and lympthadenopathy Report Status: Verified Date Reported: FEB 28, 2024 Date Verified: FEB 28, 2024 Purchasing/Receiving E-Sig:/ES/NEMO RODRIGUEZ JR Report: Study: PA and [...] Primary Interpreting Staff: NEMO RODRIGUEZ JR, Radiologist (Purchasing/Receiving) /EAD NEMO RODRIGUEZ JR [facility] Encounter Notes: All associated encounter notes This section contains the clinical notes associated to the Encounter. Date/Time Encounter Note(s) Provider Source Mar 09, 2024 03:01 PM PSYCHIATRY GROUP COUNSELING NOTE: LOCAL TITLE: PSYCHOLOGY GROUP NOTE STANDARD TITLE: PSYCHIATRY GROUP COUNSELING NOTE DATE OF NOTE: MAR 09, 2024@15:01 ENTRY DATE: MAR 09, 2024@15:01:53 AUTHOR: LO GIBBS EXP COSIGNER: URGENCY: STATUS: [facility] Mindful Compassion Group Therapy Note IDENTITY VERIFICATION: [X] Patient Name [X] Visual recognition [ ] Birthdate [ ] Social Security # ~~~ [employer] Gold Wheel: Lo Gibbs, PhD PROCEDURE: 60-minute interactive hybrid VVC/F2F group therapy session Problem: Difficulty being present in the moment and fostering compassion Objective: Explored and practice mindful compassion Number of Veterans Present in Group: 5 GROUP CONTENT: Group members engaged in a mindful observation practice and shared reflections about the experience. The What Skills of Observe, Describe, and Participate were explored with brief practices. Group members actively listened and shared reactions to the poem Kindness by Wendy Ruiz. They practiced mindful speaking and listening related to acts of kindness in their own lives. Group members committed to choosing moments of kindness in the next week and were encouraged to practice mindful awareness regularly. PROGRESS: arrived on time and was an active and appropriate participant. participated in the mindfulness practices and group discussions. Mental Status was not formally assessed due to the nature of the encounter. [place] maintained appropriate eye contact and was alert. [place] spoke clearly and coherently. 's thoughts were linear and related. [place]'s affect was congruent to content and appropriate in range. No clinical signs of intoxication, withdrawal, psychosis, or cognitive impairment were observed. No evidence of suicidal or homicidal ideation. There was no evidence of AH/VH or delusions. was future oriented. DSM-V DIAGNOSTIC IMPRESSIONS(per chart): PTSD, chronic PLAN: [place] will continue to participate in the [facility] Mindful Compassion Group on Mondays at 1pm. /jeana/ Lo Gibbs, PhD Clinical Psychologist, [facility] Signed: 03/09/2024 15:05 LO GIBBS [place] [facility]
--- OUTSIDE RECORDS SUMMARY | 2024-08-04 17:17 | XMS_ITS ---
Author Name [facility] [facility] Address [address] [place] [address] Care Team Providers Care Application Defense Manager Name Role Phone CADEN FELIZ Primary [...] PLAN I Aug 19, 2019 PLAN I [id number] MEEK,SABINE ICEL PATIENT [employer] OPTIONS MEDICARE SUPPLEMEN MARCIA PLANM Y Aug 19, 2019 PLANMY [id number] MEEK,GR ICEL PATIENT [employer] OPTIONS MEDICARE SUPPLEMEN MARCIA AARP MEDIC ARE SUPPL Aug 19, 2019 PLAN MY [id number] [phone] MEEK,GR ICEL PATIENT AARP INS MEDICARE SUPPLEMEN MARCIA PLANM Y Aug 19, 2019 PLANMY [id number] MEEK,GR ICEL PATIENT AARP MED SUPP MEDICARE SUPPLEMEN MARCIA Jul 19, 2010 PLANMY [id number] [phone] MEEK,GR ICEL PATIENT MEDICARE (WNR) MEDICARE () PART B Aug 19, 2008 PART B [id number] MEEK,GR ICEL PATIENT MEDICARE (WNR) MEDICARE () PART B Aug 19, 2008 PART B [id number] [phone] MEEK,GR ICEL PATIENT MEDICARE (WNR) MEDICARE () PART B Aug 19, 2008 PART B [id number] MEEK,GR ICEL PATIENT MEDICARE (WNR) MEDICARE () PART B Aug 19, 2008 PART B [id number] MEEK,GR ICEL PATIENT MEDICARE (WNR) MEDICARE () PART B Aug 19, 2008 PART B [id number] [phone] MEEK,GR ICEL PATIENT MEDICARE (WNR) MEDICARE () PART B Aug 19, 2008 PART B [id number] [phone] MEEK,GR ICEL PATIENT MEDICARE (WNR) MEDICARE () PART B Aug 19, 2008 PART B [id number] [phone] MEEK,GR ICEL PATIENT MEDICARE (WNR) MEDICARE () PART A December 18, 2003 PART A [id number] MEEK,GR ICEL PATIENT MEDICARE (WNR) MEDICARE () PART A December 18, 2003 PART A [id number] MEEK,GR ICEL PATIENT MEDICARE (WNR) MEDICARE () PART A December 18, 2003 PART A [id number] [phone] MEEK,GR ICEL PATIENT MEDICARE (WNR) MEDICARE () PART A December 18, 2003 PART A [id number] MEEK,GR ICEL PATIENT MEDICARE (WNR) MEDICARE () PART A December 18, 2003 PART A [id number] [phone] MEEK,GR ICEL PATIENT MEDICARE (WNR) MEDICARE () PART A December 18, 2003 PART A [id number] [phone] SABINE MEEK PATIENT MEDICARE (WNR) MEDICARE (M) PART A December 18, 2003 PART A [id number] SABINE MEEK PATIENT Selected Encounter This section includes the information on record at [place] for the Encounter. Date/Time Encounter Type Encounter Description Reason Pro vider Source Mar 06, 2024 03:12 PM Outpatient Encounter COMMUNITY CARE CONSULT IHE Encounter Template Text not used by [place] Plan of Treatment: Future Appointments (+ 6 [...] Appointment Type Appointme nt Facility Name Mar 09, 2024 01:00 PM AMBULATORY - PSYCHIATRY [facility] [place] [facility] Mar 11, 2024 03:15 PM AMBULATORY - MEDICINE [facility] [place] [facility] Mar 18, 2024 08:30 AM AMBULATORY - MEDICINE [facility] [place] [facility] Mar 23, 2024 01:00 PM AMBULATORY - PSYCHIATRY [facility] [place] [facility] Mar 30, 2024 01:00 PM AMBULATORY - PSYCHIATRY [facility] [place] [facility] Apr 06, 2024 12:30 PM AMBULATORY - MEDICINE HI [facility] [place] [facility] Apr 06, 2024 01:00 PM AMBULATORY - MEDICINE HI [facility] [place] [facility] Apr 23, 2024 08:40 AM AMBULATORY - PSYCHIATRY [facility] [place] [facility] May 08, 2024 08:00 AM AMBULATORY - MEDICINE [facility] [place] [facility] May 11, 2024 01:00 PM AMBULATORY - PSYCHIATRY [facility] [place] [facility] May 18, 2024 01:00 PM AMBULATORY - PSYCHIATRY [facility] [place] [facility] May 20, 2024 09:30 AM AMBULATORY - MEDICINE HI [facility] [place] [facility] May 25, 2024 01:00 PM AMBULATORY - PSYCHIATRY [facility] [place] [facility] Jun 08, 2024 09:30 AM AMBULATORY - PSYCHIATRY [facility] [place] [facility] Jun 08, 2024 01:00 PM AMBULATORY - PSYCHIATRY [facility] [place] [facility] Jun 15, 2024 01:00 PM AMBULATORY - PS[facility]CHIATRY [facility] Jun 19, 2024 09:00 AM AMBULATORY - PSYCHIATRY [facility] [place] [facility] Jun 27, 2024 09:30 AM AMBULATORY - MEDICINE [facility] [place] [facility] Jul 06, 2024 01:00 PM [facility] Jul 13, 2024 11:30 AM AMBULATORY - MEDICINE [facility] [place] [facility] Active, Pending, and Scheduled Orders This section includes a listing of several types of active, pending, and scheduled orders, including clinic medications orders, diagnostic test orders, procedure orders and consult orders; where the start date of the order is 45 days before the date of the Encounter or 45 days after the date of theEncounter. The data comes from all [place] treatment facilities. Test Date/Time Test Type Test Details Facility Name Feb 28, 2024 12:49 PM Consult Order COMMUNITY CARE-CARDIOLOGY Cons [employer] [facility] Lab Results: +/- 30 days [...] Range Comment Feb 28, 2024 01:01 PM [facility] THYROID T4 FREE(FT4) (WROX) Specimen Type: SERUM No comment entered. Ordering Provider: CADEN FELIZ Report Released Date/Time: Feb 28, 2024 12:47 PM Reporting Lab: [facility] [address] [address] Performing Lab: [facility] [address] [address] THYROID T4 FREE(FT4) (WROX) 0.93 ng/dL 0.6-1.6 Feb 28, 2024 01:01 PM [facility] TSH Specimen Type: SERUM No comment entered. Ordering Provider: CADEN FELIZ Report Released Date/Time: Feb 28, 2024 12:47 PM Reporting Lab: [address] [address] Performing Lab: [address] [address] TSH 0.54 u[IU]/mL 0.35-5.00 Feb 28, 2024 01:01 PM [facility] LIVER FUNCTION Specimen Type: SERUM No comment entered. Ordering Provider: CADEN FELIZ Report Released Date/Time: Feb 28, 2024 12:47 PM Reporting Lab: [address] [address] Performing Lab: [address] [address] PROTEIN,TOTAL 7.0 g/dL 6.0-8.3 ALBUMIN 4.2 g/dL 3.5-5.0 ALKALINE PHOSPHATASE 62 U/L 40-150 AST 15 U/L 5-34 ALT 20 U/L BILIRUBIN, TOTAL 0.4 mg/dL 0.2-1.2 Feb 28, 2024 01:01 PM [facility] HEMOGLOBIN A1C PANEL Specimen Type: [...] Feb 28, 2024 12:47 PM Reporting Lab: [address] [address] Performing Lab: [facility] [address] [address] HEMOGLOBIN A1C 6.2 H 4.0-5.6 Feb 28, 2024 01:01 PM [facility] BASIC METABOLIC PANEL (non-fasting) Specimen Type: SERUM No comment entered. Ordering Provider: CADEN FELIZ Report Released Date/Time: Feb 28, 2024 12:47 PM Reporting Lab: [facility] [address] [address] Performing Lab: [address] [address] UREA NITROGEN 10 mg/dL 7-25 GLUCOSE 148 mg/dL H 65-100 SODIUM 140 mmol/L 135-145 POTASSIUM 4.7 mmol/L 3.5-5.0 CHLORIDE 101 mmol/L 100-110 CO2 30 meq/L 20-30 CREATININE, Serum 0.70 mg/dL 0.50-1.40 eGFR(CKD-EPI 2020) >90 mL/min >60 Feb 28, 2024 01:01 PM [facility] CBC AND DIFF (AUTO) Specimen Type: BLOOD No comment entered. Ordering Provider: CADEN FELIZ Report Released Date/Time: Feb 28, 2024 12:47 PM Reporting Lab: [facility] [address] [address] Performing Lab: [address] [address] WBC 3.39 10*3/uL L 4.50-11.00 RBC 3.84 [...] took place. Date/Time Current Smoking Status Comment [facility] Feb 08, 2023 10:00 AM VA-TOBACCO FORMER USER [place] [facility] [place] [facility] Tobacco Use History This section includes a history of the smoking, or tobacco-related health factors, that were collected on or before the date of the Encounter. The data comes from the [place] facility where the Encounter took place. Date/Time Smoking Status/Tobac co Use Comment [facility] [place] Feb 08, 2023 10:00 AM VA-TOBACCO QUIT 15 YRS OR MORE [facility] [place] [facility] Mar 06, 2022 02:30 PM VA-TOBACCO FORMER USER [facility] [place] [facility] Mar 06, 2022 02:30 PM VA-TOBACCO QUIT 15 YRS OR MORE [facility] [place] [facility] Apr 04, 2021 10:28 AM VA-TOBACCO NEVER USED [facility] [place] [facility] May 03, 2020 02:00 PM VA-TOBACCO NEVER USED [facility] [place] [facility] Feb 25, 2019 08:14 AM VA-TOBACCO FORMER USER [facility] [place] [facility] Feb 25, 2019 08:14 AM VA-TOBACCO QUIT 5 TO < 15 YRS [facility] [place] [facility] Apr 04, 2018 10:41 AM QUIT TOBACCO USE 1-7 YEARS AGO [facility] [place] [facility] Oct 28, 2017 10:18 AM QUIT TOBACCO USE 1-7 YEARS AGO [facility] [place] [facility] Jan 22, 2017 01:08 PM QUIT TOBACCO USE 1-7 YEARS AGO [facility] [place] [facility] Jul 18, 2016 01:34 PM QUIT TOBACCO USE 1-7 YEARS AGO [facility] [place] [facility] January 10, 2016 10:32 AM QUIT TOBACCO USE 1-7 YEARS AGO [facility] [place] [facility] Oct 13, 2015 11:05 AM QUIT TOBACCO USE 1-7 YEARS AGO [facility] [place] [facility] Oct 19, 2014 01:53 PM QUIT TOBACCO USE > 7 YEARS AGO [facility] [place] [facility] January 02, 2014 01:30 AM QUIT TOBACCO USE IN PAST YEAR [facility] [place] [facility] Jun 18, 2013 09:00 AM CURRENT SMOKER 6 cigarettes qd [facility] [place] [facility] Jun 18, 2013 09:00 AM V1-PT DECLINES TOBACCO CESSATION MED[facility] [place] [facility] Jun 18, 2013 09:00 AM V1-PT NOT INTERESTED IN QUIT TOBACCO USE [facility] [place] [facility] December 24, 2012 10:51 AM V1-PT DECLINES REF TO TOBACCO CESS PRGM [facility] [place] [facility] December 24, 2012 10:51 AM V1-PT DECLINES TOBACCO CESSATION MEDS [facility] [place] [facility] December 24, 2012 10:51 AM V1-PT THINKING ABOUT QUIT TOBACCO USE [facility] [place] [facility] Jul 15, 2012 10:19 AM QUIT TOBACCO USE IN PAST YEAR [facility] [place] [facility] Jan 25, 2012 05:02 PM QUIT TOBACCO USE IN PAST YEAR [facility] [place] [facility] Sep 28, 2011 10:09 AM CURRENT SMOKER 5 cigarettes a day [facility] Jun 15, 2011 02:23 PM V1-PT DECLINES REF TO TOBACCO CESS PRGM [facility] Jun 15, 2011 02:23 PM V1-PT READY TO QUIT TOBACCO USE [facility] Apr 13, 2011 10:31 AM V1-PT DECLINES REF TO TOBACCO CESS PRGM [facility] Apr 13, 2011 10:31 AM V1-PT RECEIVES TOBACCO CESS MEDS OUTSIDE [facility] Apr 13, 2011 10:31 AM V1-PT THINKING ABOUT QUIT TOBACCO USE [facility] Oct 16, 2010 08:52 AM QUIT TOBACCO USE IN PAST YEAR [facility] May 12, 2010 02:08 PM V1-PT DECLINES REF TO TOBACCO CESS PRGM [facility] May 12, 2010 02:08 PM V1-PT READY TO QUIT TOBACCO USE [facility] May 12, 2010 12:45 PM CURRENT SMOKER 3 cigarettes a day [facility] Radiology Reports: +/- 30 days [...] comes from all [facility] facilities. Date/Time Radiology Report Provider Source Feb 28, 2024 12:54 PM CHEST (2 VIEWS): PEBBLES MEEK [id number] Exm Date: FEB 28, 2024@12:54 Req Phys: CADEN FELIZ Loc: CWM/NO/PACT 6 WH (Req'g Loc) Img Loc: [facility]/BUILDING 1 Service: Unknown [facility] , (Case [id number] COMPLETE) CHEST (2 VIEWS) (RAD Detailed) CPT:49747 Reason for Study: 73yo with ashtma and genearlized puritis Clinical History: to check lung dumont and lympthadenopathy Report Status: Verified Date Reported: FEB 28, 2024 Date Verified: FEB 28, 2024 Gas Collection System Operator E-Sig:/JEANA/NEMO RODRIGUEZ JR Report: Study: PA and [...] Primary Interpreting Staff: NEMO RODRIGUEZ JR, Radiologist (Gas Collection System Operator) /NEMO WEISS JR [facility] Encounter Notes: All associated encounter notes This section contains the clinical notes associated to the Encounter. Date/Time Encounter Note(s) Provider Source Mar 06, 2024 03:12 PM NONVA NOTE: LOCAL TITLE: [facility] CARE COORD PLAN STANDARD TITLE: NONVA NOTE DATE OF NOTE: MAR 06, 2024@15:12 ENTRY DATE: MAR 06, 2024@15:12:57 AUTHOR: DARRYL JOSUE EXP COSIGNER: URGENCY: STATUS: COMPLETED Emergency Notification Intake Date Presenting to the Facility: Jan Method of Contact: Notified from [facility] worklist Notification ID: [id number] [facility] Referral #: [id number] [facility] Hospital Name: Hospital: [facility] Address: City: [place] State: [place] Zip Code: Phone : [facility] Point of Contact: Name: Khadra Phone: Chief complaint: SOB, ASTHMA Primary Diagnosis: Disposition Discharged Date of discharge: Jan Discharge to Comment: ER Only /jeana/ DARRYL HAMMOND Signed: 03/06/2024 15:16 Receipt Acknowledged By: 04/07/2024 10:23 /jeana/ CADEN FELIZ M.D. PHYSICIAN 03/09/2024 08:32 /es/ KIET FRANCIS, YING, RN, CNL PRIMARY CARE TEAM NURSE 03/09/2024 08:33 /jeana/ KIET L TITO, MSN, RN, CNL PRIMARY CARE TEAM NURSE for [facility],DARRYL MORALES [facility]
--- OUTSIDE RECORDS SUMMARY | 2024-08-04 17:18 | XMS_ITS | Encounter Summary ---
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 Name Role Phone CADEN FELIZ Primary [...] PLAN I Aug 19, 2019 PLAN I [id number] MEEK,GR ICEL PATIENT [employer] OPTIONS MEDICARE SUPPLEMEN MARCIA PLANM Y Aug 19, 2019 PLANMY [id number] MEEK,GR ICEL PATIENT [employer] OPTIONS MEDICARE SUPPLEMEN MARCIA AARP MEDIC ARE SUPPL Aug 19, 2019 PLAN MY [id number] MEEK,GR ICEL PATIENT AARP INS MEDICARE SUPPLEMEN MARCIA PLANM Y Aug 19, 2019 PLANMY [id number] [phone] MEEK,GR ICEL PATIENT AARP MED SUPP MEDICARE SUPPLEMEN MARCIA Jul 19, 2010 PLANMY [id number] MEEK,GR ICEL PATIENT MEDICARE (WNR) MEDICARE () PART B Aug 19, 2008 PART B [id number] MEEK,GR ICEL PATIENT MEDICARE (WNR) MEDICARE () PART B Aug 19, 2008 PART B [id number] MEEK,GR ICEL PATIENT MEDICARE (WNR) MEDICARE () PART B Aug 19, 2008 PART B [id number] [phone] MEEK,GR ICEL PATIENT MEDICARE (WNR) MEDICARE () PART B Aug 19, 2008 PART B [id number] MEEK,GR ICEL PATIENT MEDICARE (WNR) MEDICARE () PART B Aug 19, 2008 PART B [id number] MEEK,GR ICEL PATIENT MEDICARE (WNR) MEDICARE () PART B Aug 19, 2008 PART B [id number] MEEK,GR ICEL PATIENT MEDICARE (WNR) MEDICARE () PART B Aug 19, 2008 PART B [id number] [phone] MEEK,GR ICEL PATIENT MEDICARE (WNR) MEDICARE () PART A December 18, 2003 PART A [id number] MEEK,GR ICEL PATIENT MEDICARE (WNR) MEDICARE () PART A December 18, 2003 PART A [id number] [phone] MEEK,GR ICEL PATIENT MEDICARE (WNR) MEDICARE () PART A December 18, 2003 PART A [id number] MEEK,GR ICEL PATIENT MEDICARE (WNR) MEDICARE () PART A December 18, 2003 PART A [id number] [phone] MEEK,GR ICEL PATIENT MEDICARE (WNR) MEDICARE () PART A December 18, 2003 PART A [id number] [phone] MEEK,GR ICEL PATIENT MEDICARE (WNR) MEDICARE () PART A December 18, 2003 PART A [id number] SABINE MEEK PATIENT MEDICARE (WNR) MEDICARE (M) PART A December 18, 2003 PART A [id number] SABINE MEEK PATIENT Selected Encounter This section includes the information on record at [place] for the Encounter. Date/Time Encounter Type Encounter Description Reason Provider Source Mar 23, 2024 01:00 PM [facility] ICD-10-CM F43.12 Post-traumati c stress disorder, chronic MANUELEMARY E IHE Encounter Template Text not used by [place] Assessments - Encounter Diagnoses This section includes the primary and secondary diagnoses documented for the Encounter. Date/Time Primary/Secondary Diagnosis Diagnosis Name Provider Source Mar 23, 2024 03:45 PM PRIMARY Post-traumatic stress disorder, chronic MARY GIBBS E [facility] Plan of Treatment: Future Appointments (+ 6 months) and Future Tests (+/- 45 days) The Plan of Treatment section includes future care activities for the patient from all [place] [facility]. This section includes future appointments and future orders which are active, pending or scheduled. Future Appointments This section includes appointments that were scheduled to occur 6 months from the date of the Encounter, up to a maximum of 20 appointments. The data comes from all [place] treatment facilities. Appointment Date/Time Appointment Type Appointme nt Facility Name Mar 30, 2024 01:00 PM AMBULATORY - PS[facility]IATRY [facility] Apr 06, 2024 12:30 PM AMBULATORY - MEDICINE [facility] Apr 06, 2024 01:00 PM AMBULATORY - MEDICINE [facility] Apr 23, 2024 08:40 AM AMBULATORY - PSYCHIATRY [facility] May 08, 2024 08:00 AM AMBULATORY - MEDICINE [facility] May 11, 2024 01:00 PM AMBULATORY - PSYCHIATRY [facility] May 18, 2024 01:00 PM AMBULATORY - PSYCHIATRY [facility] May 20, 2024 09:30 AM AMBULATORY - MEDICINE [facility] May 25, 2024 01:00 PM [facility] Jun 08, 2024 09:30 AM [facility]BUL[facility] Jun 08, 2024 01:00 PM AMBULATORY [facility] PS[facility]IATRY [facility] Jun 15, 2024 01:00 PM AMBULATORY - PS[facility]IATRY [facility] Jun 19, 2024 09:00 AM AMBULATORY [facility] PS[facility]IATRY [facility] Jun 27, 2024 09:30 AM [facility]AT[facility] Jul 06, 2024 01:00 PM AMBULATORY [facility] PS[facility]CHIATRY [facility] Jul 13, 2024 11:30 AM [facility] Jul 13, 2024 01:00 PM AMBULATORY - PSYCHIATRY [facility] Jul 20, 2024 09:30 AM AMBULATORY - PS[facility]CHIATRY [facility] Jul 21, 2024 09:30 AM [facility]ULATORY [facility]INE [facility] Jul 22, 2024 09:00 AM AMBULATORY - PSYCHIATRY [facility] Active, Pending, and Scheduled Orders This section includes a listing of several types of active, pending, and scheduled orders, including clinic medications orders, diagnostic test orders, procedure orders and consult orders; where the start date of the order is 45 days before the date of the Encounter or 45 days after the date of theEncounter. The data comes from all [place] treatment facilities. Test Date/Time Test Type Test Details Facility Name Feb 28, 2024 12:49 PM Consult Order COMMUNITY CARE-CARDIOLOGY Cons Supervisor [employer] [facility] Apr 21, 2024 10:05 AM Consult Order COMMUNITY CARE-MAMMOGRAPHY FEMALE SCREEN Cons Supervisor [employer] [facility] Lab [...] Range Comment Apr 06, 2024 01:21 PM [facility] COVID-19 FLU/RSV DIAGNOSTIC PANEL Specimen Type: [...] patient management decisions.Mary siddiqi FLUVID: HCPs: https://www.fda. gov/media/590749 /download. Patients: https://www.fda. gov/media/423731 /download NOTIFIED DR FELIZ 04/06/24@4010 BY EMAILED TO INFECTION CONTROL FAXED TO [facility] Ordering Provider: CADEN FELIZ Report Released Date/Time: Apr 06, 2024 12:55 PM Reporting Lab: [address] [address] Performing Lab: [address] [address] COVID-19 PCR (FLUVID) POSITIVE HH NEGATIVE FLU A PCR (FLUVID) NEGATIVE FLU B PCR (FLUVID) NEGATIVE RSV PCR (FLUVID) NEGATIVE Apr 06, 2024 01:21 PM [facility] SARS-COV-2 VARIANT SEQ PNL(WHV) Specimen Type: NASOPHARYNX Comment: -Pangolin version 4.3.1 (data version ) -Nextclade version 3.8.2 (data version 2024-03-04) https://www.cdc. gov/coronavirus/ 2019-ncov/cases- updates/variant- surveillance/jv iant-info.html The Query Hunter AmpliSeq SARS CoV 2 Insight Research Assay-GX is a next-generation sequencing (NGS) assay that determines the complete genome sequence of the SARS-CoV-2 virus. The assay contains variant-tolerant primers to broaden and improve the coverage for variant detection and increase the sensitivity of the panel to enable detection from lower viral titer samples. The assay is run on the Playto Sequencer, which performs automated library preparation, sequencing, analysis, and reporting. The sequence analysis includes determination of viral phylogenetic lineage by comparison to the reference strain Wuhan-Hu-1, GenBank: [id number]. Sequence determination may not be possible owing to inadequate quantity or quality of the viral RNA in the original specimen. Sequencing will not be attempted if the SARS-CoV-2 PCR assay result has a Ct > 30. Note that phylogenetic lineage assignment in some cases may exchange mechanic time for the same sequence as the virus continues to evolve and new sub lineages are created. The reported result will reflect the lineage assignment only at the time of initial sequence determination. This test was developed, and its performance characteristics determined by the [facility], which is certified under the Clinical Laboratory Improvement Amendments (CLIA) as qualified to perform high complexity clinical laboratory testing. This test is validated for clinical use at [facility] and should not be regarded as investigational or for research. The FDA does not require this test to go through premarket FDA review, and therefore it has not been cleared or approved by the FDA. This report was reviewed and approved by the on-service pathologist. Ordering Provider: CADEN FELIZ Report Released Date/Time: Apr 27, 2024 11:46 AM Reporting Lab: [address] [address] Performing Lab: [address] [address] SARS-COV-2 Lineage(WHV) MC.1 SARS-COV-2 Clade(WHV) 24C (Omicron) Feb 28, 2024 01:01 PM [facility] THYROID T4 FREE(FT4) (WROX) Specimen Type: SERUM No comment entered. Ordering Provider: CADEN FELIZ Report Released Date/Time: Feb 28, 2024 12:47 PM Reporting Lab: [address] [address] Performing Lab: [facility] [address] [facility] [address] THYROID T4 FREE(FT4) (WROX) 0.93 ng/dL 0.6-1.6 Feb 28, 2024 01:01 PM [facility] TSH Specimen Type: SERUM No comment entered. Ordering Provider: CADEN FELIZ Report Released Date/Time: Feb 28, 2024 12:47 PM Reporting Lab: [facility] [address] [facility] [address] Performing Lab: [address] [address] TSH 0.54 u[IU]/mL 0.35-5.00 Feb 28, 2024 01:01 PM [facility] LIVER FUNCTION Specimen Type: SERUM No comment entered. Ordering Provider: CADEN FELIZ Report Released Date/Time: Feb 28, 2024 12:47 PM Reporting Lab: [address] [address] Performing Lab: [address] [address] PROTEIN,TOTA L 7.0 g/dL 6.0-8.3 ALBUMIN 4.2 g/dL 3.5-5.0 ALKALINE PHOSPHATASE 62 U/L 40-150 AST 15 U/L 5-34 ALT 20 U/L BILIRUBIN, TOTAL 0.4 mg/dL 0.2-1.2 Feb 28, 2024 01:01 PM [facility] HEMOGLOBIN A1C PANEL Specimen Type: BLOOD [...] Feb 28, 2024 12:47 PM Reporting Lab: [address] [address] Performing Lab: [address] [address] HEMOGLOBIN A1C 6.2 H 4.0-5.6 Feb 28, 2024 01:01 PM [facility] BASIC METABOLIC PANEL (non-fasting) Specimen Type: SERUM No comment entered. Ordering Provider: CADEN FELIZ Report Released Date/Time: Feb 28, 2024 12:47 PM Reporting Lab: [facility] [address] [facility] [address] Performing Lab: [address] [address] UREA NITROGEN 10 mg/dL 7-25 GLUCOSE 148 mg/dL H 65-100 SODIUM 140 mmol/L 135-145 POTASSIUM 4.7 mmol/L 3.5-5.0 CHLORIDE 101 mmol/L 100-110 CO2 30 meq/L 20-30 CREATININE, Serum 0.70 mg/dL 0.50-1.40 eGFR(CKD-EPI 2020) >90 mL/min >60 Feb 28, 2024 01:01 PM [facility] CBC AND DIFF (AUTO) Specimen Type: BLOOD No comment entered. Ordering Provider: CADEN FELIZ Report Released Date/Time: Feb 28, 2024 12:47 PM Reporting Lab: [address] [address] Performing Lab: [address] [address] WBC 3.39 10*3/uL L 4.50-11.00 RBC 3.84 [...] place. Date/Time Current Smoking Status Comment [facility] Feb 08, 2023 10:00 AM VA-TOBACCO QUIT 15 YRS OR MORE [facility] Tobacco Use History This section includes a history of the smoking, or tobacco-related health factors, that were collected on or before the date of the Encounter. The data comes from the [facility] facility where the Encounter took place. Date/Time Smoking Status/Tobac co Use Comment [facility] Feb 08, 2023 10:00 AM VA-TOBACCO QUIT 15 YRS OR MORE [facility] Mar [...] < 15 YRS [facility] Apr 04, 2018 10:41 AM QUIT TOBACCO USE 1-7 YEARS AGO [facility] Oct 28, 2017 10:18 AM QUIT TOBACCO USE 1-7 YEARS AGO [facility] Jan 22, 2017 01:08 PM QUIT TOBACCO USE 1-7 YEARS AGO [facility] Jul 18, 2016 01:34 PM QUIT TOBACCO USE 1-7 YEARS AGO [facility] January 10, 2016 10:32 AM QUIT TOBACCO USE 1-7 YEARS AGO [facility] Oct 13, 2015 11:05 AM QUIT TOBACCO USE 1-7 YEARS AGO [facility] Oct 19, 2014 01:53 PM QUIT TOBACCO USE > 7 YEARS AGO [facility] January 02, 2014 01:30 AM QUIT TOBACCO USE IN PAST YEAR [facility] Jun 18, 2013 09:00 AM CURRENT SMOKER 6 cigarettes qd [facility] Jun 18, 2013 09:00 AM V1-PT DECLINES TOBACCO CESSATION MEDS [facility] Jun 18, 2013 09:00 AM V1-PT NOT INTERESTED IN QUIT TOBACCO USE [facility] December 24, 2012 10:51 AM V1-PT DECLINES REF TO TOBACCO CESS PRGM [facility] December 24, 2012 10:51 AM V1-PT DECLINES TOBACCO CESSATION MEDS [facility] December 24, 2012 10:51 AM V1-PT THINKING ABOUT QUIT TOBACCO USE [facility] Jul 15, 2012 10:19 AM QUIT TOBACCO USE IN PAST YEAR [facility] Jan 25, 2012 05:02 PM QUIT TOBACCO USE IN PAST YEAR [facility] Sep 28, 2011 10:09 AM CURRENT SMOKER 5 cigarettes a day [facility] Jun 15, 2011 02:23 PM V1-PT DECLINES REF TO TOBACCO CESS PRGM [facility] Jun 15, 2011 02:23 PM V1-PT READY TO QUIT TOBACCO USE [facility] Apr 13, 2011 10:31 AM V1-PT DECLINES REF TO TOBACCO CESS PRGM [facility] Apr 13, 2011 10:31 AM V1-PT RECEIVES TOBACCO CESS MEDS OUTSIDE [facility] Apr 13, 2011 10:31 AM V1-PT THINKING ABOUT QUIT TOBACCO USE [facility] Oct 16, 2010 08:52 AM QUIT TOBACCO USE IN PAST YEAR [facility] May 12, 2010 02:08 PM V1-PT DECLINES REF TO TOBACCO CESS PRGM [facility] May 12, 2010 02:08 PM V1-PT READY TO QUIT TOBACCO USE [facility] May 12, 2010 12:45 PM CURRENT SMOKER 3 cigarettes a day [facility] Radiology Reports: +/- 30 days of [...] the Encounter. The data comes from all [facility] facilities. Date/Time Radiology Report Provider Source Feb 28, 2024 12:54 PM CHEST (2 VIEWS): PEBBLES MEEK [id number] F Exm Date: FEB 28, 2024@12:54 Req Phys: CADEN FELIZ Loc: CWM/NO/PACT 6 [facility] (Req'g Loc) Img Loc: [facility]/BUILDING 1 Service: Unknown [facility] , (Case [id number] COMPLETE) CHEST (2 VIEWS) (RAD Detailed) CPT:90757 Reason for Study: 73yo with ashtma and genearlized puritis Clinical History: to check lung dumont and lympthadenopathy Report Status: Verified Date Reported: FEB 28, 2024 Date Verified: FEB 28, 2024 Accounting Associate E-Sig:/ES/NEMO RODRIGUEZ JR Report: Study: PA and [...] Primary Interpreting Staff: NEMO RODRIGUEZ JR, Radiologist (Accounting Associate) /NEMO WEISS JR [facility] Encounter Notes: All associated encounter notes This section contains the clinical notes associated to the Encounter. Date/Time Encounter Note(s) Provider Source Mar 23, 2024 03:44 PM PSYCHIATRY GROUP COUNSELING NOTE: LOCAL TITLE: PSYCHOLOGY GROUP NOTE STANDARD TITLE: PSYCHIATRY GROUP COUNSELING NOTE DATE OF NOTE: MAR 23, 2024@15:44 ENTRY DATE: MAR 23, 2024@15:44:39 AUTHOR: LO GIBBS EXP COSIGNER: URGENCY: STATUS: COMPLETED [facility] Mindful Compassion Group Therapy Note IDENTITY VERIFICATION: [X] Patient Name [X] Visual recognition [ ] Birthdate [ ] Social Security # ~~~ Remote Sensing Scientist: Lo Gibbs, PhD PROCEDURE: 60-minute interactive VVC group therapy session Problem: Difficulty being present in the moment and fostering compassion Objective: Explored and practice mindful compassion Number of Veterans Present in Group: 8 GROUP CONTENT: Group members engaged in a mindful breathing and listening practice involving a poem by Diane Hunter. Group members checked in regarding one thing they find calming or soothing. Group members reflected on a quote by Donald Ramos about suffering and engaged in a mindful writing practice. They discussed thoughts about how to be present and how to not resist unpleasant experiences and unintentionally create suffering. Group members honored the graduation of a member. Group members committed to choosing moments of kindness in the next week and were encouraged to practice mindful awareness regularly. PROGRESS: [place] arrived on time and was an active and appropriate participant. [place] participated in the mindfulness practices and group discussions. Mental Status was not formally assessed due to the nature of the encounter. maintained appropriate eye contact and was alert. spoke clearly and coherently. [place]'s thoughts were linear and related. 's affect was congruent to content and appropriate in range. No clinical signs of intoxication, withdrawal, psychosis, or cognitive impairment were observed. No evidence of suicidal or homicidal ideation. There was no evidence of AH/VH or delusions. [place] was future oriented. DSM-V DIAGNOSTIC IMPRESSIONS(per chart): PTSD, chronic PLAN: will continue to participate in the [facility] Mindful Compassion Group on Mondays at 1pm. /jeana/ Lo Gibbs, PhD Clinical Psychologist, [facility] Signed: 03/23/2024 15:46 LO GIBBS [facility]
--- OUTSIDE RECORDS SUMMARY | 2024-08-04 17:18 | XMS_ITS ---
Author Name [facility] [facility] [place] [facility] [place] [facility] [place] Address [address] [place] [address] Care Team Providers Care Telegraph Inspector Name Role Phone CADEN FELIZ Primary Care [...] PLAN I Aug 19, 2019 PLAN I [id number] MEEK,GR ICEL PATIENT [employer] OPTIONS MEDICARE SUPPLEMEN MARCIA PLANM Y Aug 19, 2019 PLANMY [id number] [phone] MEEK,GR ICEL PATIENT [employer] OPTIONS MEDICARE SUPPLEMEN MARCIA AARP MEDIC ARE SUPPL Aug 19, 2019 PLAN MY [id number] [phone] MEEK,GR ICEL PATIENT AARP INS MEDICARE SUPPLEMEN MARCIA PLANM Y Aug 19, 2019 PLANMY [id number] MEEK,GR ICEL PATIENT AARP MED SUPP MEDICARE SUPPLEMEN MARCIA Jul 19, 2010 PLANMY [id number] [phone] MEEK,GR ICEL PATIENT MEDICARE (WNR) MEDICARE () PART B Aug 19, 2008 PART B [id number] [phone] MEEK,GR ICEL PATIENT MEDICARE (WNR) MEDICARE () PART B Aug 19, 2008 PART B [id number] [phone] MEEK,GR ICEL PATIENT MEDICARE (WNR) MEDICARE () PART B Aug 19, 2008 PART B [id number] [phone] MEEK,GR ICEL PATIENT MEDICARE (WNR) MEDICARE () PART B Aug 19, 2008 PART B [id number] [phone] MEEK,GR ICEL PATIENT MEDICARE (WNR) MEDICARE () PART B Aug 19, 2008 PART B [id number] [phone] MEEK,GR ICEL PATIENT MEDICARE (WNR) MEDICARE () PART B Aug 19, 2008 PART B [id number] [phone] MEEK,GR ICEL PATIENT MEDICARE (WNR) MEDICARE () PART B Aug 19, 2008 PART B [id number] MEEK,GR ICEL PATIENT MEDICARE (WNR) MEDICARE () PART A December 18, 2003 PART A [id number] MEEK,GR ICEL PATIENT MEDICARE (WNR) MEDICARE () PART A December 18, 2003 PART A [id number] MEEK,GR ICEL PATIENT MEDICARE (WNR) MEDICARE () PART A December 18, 2003 PART A [id number] [phone] MEEK,GR ICEL PATIENT MEDICARE (WNR) MEDICARE () PART A December 18, 2003 PART A [id number] MEEK,GR ICEL PATIENT MEDICARE (WNR) MEDICARE () PART A December 18, 2003 PART A [id number] MEEK,GR ICEL PATIENT MEDICARE (WNR) MEDICARE () PART A December 18, 2003 PART A [id number] SABINE MEEK PATIENT MEDICARE (WNR) MEDICARE (M) PART A December 18, 2003 PART A [id number] SABINE MEEK PATIENT Selected Encounter This section includes the information on record at [place] for the Encounter. Date/Time Encounter Type Encounter Description Reason Provider Source Mar 30, 2024 01:00 PM [facility] ICD-10-CM F43.12 Post-traumati c stress disorder, chronic MARY GIBBS E IHE Encounter Template Text not used by [place] Assessments - Encounter Diagnoses This section includes the primary and secondary diagnoses documented for the Encounter. Date/Time Primary/Secondary Diagnosis Diagnosis Name Provider Source Mar 30, 2024 02:51 PM PRIMARY Post-traumatic stress disorder, chronic MARY GIBBS [place] [facility] [place] [facility] Plan of Treatment: Future Appointments (+ 6 months) and Future Tests (+/- 45 days) The Plan of Treatment section includes future care activities for the patient [facility] [place] [facility] This section includes future appointments and future orders which are active, pending or scheduled. Future Appointments This section includes appointments that were scheduled to occur 6 months from the date of the Encounter, up to a maximum of 20 appointments. The data comes from all [place] treatment facilities. Appointment Date/Time Appointment Type Appointme nt Facility Name Apr 06, 2024 12:30 PM AMBULATORY - MEDICINE [facility] [place] [facility] Apr 06, 2024 01:00 PM AMBULATORY - MEDIC[facility] [place] [facility] Apr 23, 2024 08:40 AM AMBULATORY - PSYCHIATRY [place] [facility] [place] [facility] May 08, 2024 08:00 AM AMBULATORY - MEDICINE [place] [facility] [place] [facility] May 11, 2024 01:00 PM AMBULATORY - PSYCHIATRY [place] [facility] [place] [facility] May 18, 2024 01:00 PM AMBULATORY - PSYCHIATRY [place] [facility] [place] [facility] May 20, 2024 09:30 AM AMBULATORY - MEDICINE [facility] [place] [facility] May 25, 2024 01:00 PM AMBULATORY - PSYCHIATRY [place] [facility] [place] [facility] Jun 08, 2024 09:30 AM AMBULATORY - PS[facility]IATRY [facility] [place] [facility] Jun 08, 2024 01:00 PM AMBULATORY - PSYCHIATRY [facility] [place] [facility] Jun 15, 2024 01:00 PM AMBULATORY - PSYCHIATRY [facility] [place] [facility] Jun 19, 2024 09:00 AM AMBULATORY - PSYCHIATRY [facility] [place] [facility] Jun 27, 2024 09:30 AM AMBULATORY - MEDICINE [facility] [place] [facility] Jul 06, 2024 01:00 PM AMBULATORY - PSYCHIATRY [facility] [place] [facility] Jul 13, 2024 11:30 AM AMBULATORY - MEDICINE [facility] [place] [facility] Jul 13, 2024 01:00 PM AMBULATORY - PSYCHIATRY [facility] [place] [facility] Jul 20, 2024 09:30 AM AMBULATORY - PSYCHIATRY [facility] [place] [facility] Jul 21, 2024 09:30 AM AMBULATORY - MEDICINE [place] [facility] [place] [facility] Jul 22, 2024 09:00 AM AMBULATORY - PSYCHIATRY [facility] [place] [facility] Jul 27, 2024 01:00 PM AMBULATORY - PSYCHIATRY [facility] [place] [facility] Active, Pending, and Scheduled [...] 12:49 PM Consult Order COMMUNITY CARE-CARDIOLOGY Cons Dry Starch Supervisor's Choice [place] [facility] [place] [facility] Apr 21, 2024 10:05 AM Consult Order COMMUNITY CARE-MAMMOGRAPHY FEMALE SCREEN Cons Dry Starch Supervisor's Choice [place] [facility] [place] [facility] Lab Results: +/- 30 [...] Range Comment Apr 06, 2024 01:21 PM [facility] COVID-19 FLU/RSV DIAGNOSTIC PANEL Specimen Type: [...] patient management decisions.Mary siddiqi FLUVID: HCPs: https://www.fda. gov/media/562092 /download. Patients: https://www.fda. gov/media/699048 /download NOTIFIED DR FELIZ 04/06/24@4696 BY EMAILED TO INFECTION CONTROL FAXED TO [facility] Ordering Provider: CADEN FELIZ Report Released Date/Time: Apr 06, 2024 12:55 PM Reporting Lab: [address] [address] Performing Lab: [address] [address] COVID-19 PCR (FLUVID) POSITIVE HH NEGATIVE FLU A PCR (FLUVID) NEGATIVE FLU B PCR (FLUVID) NEGATIVE RSV PCR (FLUVID) NEGATIVE Apr 06, 2024 01:21 PM [facility] SARS-COV-2 VARIANT SEQ PNL(WHV) Specimen Type: NASOPHARYNX Comment: -Pangolin version 4.3.1 (data version ) -Nextclade version 3.8.2 (data version 2024-03-04) https://www.cdc. gov/coronavirus/ 2019-ncov/cases- updates/variant- surveillance/jv iant-info.html The ICONOGRAFICO AmpliSeq SARS CoV 2 Insight Research Assay-GX is a next-generation sequencing (NGS) assay that determines the complete genome sequence of the SARS-CoV-2 virus. The assay contains variant-tolerant primers to broaden and improve the coverage for variant detection and increase the sensitivity of the panel to enable detection from lower viral titer samples. The assay is run on the ComAbility Sequencer, which performs automated library preparation, sequencing, analysis, and reporting. The sequence analysis includes determination of viral phylogenetic lineage by comparison to the reference strain Wu[place]-Hu-1, GenBank: [id number]. Sequence determination may not be possible owing to inadequate quantity or quality of the viral RNA in the original specimen. Sequencing will not be attempted if the SARS-CoV-2 PCR assay result has a Ct > 30. Note that phylogenetic lineage assignment in some cases may change control specialist time for the same sequence as the virus continues to evolve and new sub lineages are created. The reported result will reflect the lineage assignment only at the time of initial sequence determination. This test was developed, and its performance characteristics determined by the [facility], which is certified under the Clinical Laboratory Improvement Amendments (CLIA) as qualified to perform high complexity clinical laboratory testing. This test is validated for clinical use at [facility] and should not be regarded as investigational or for research. The FDA does not require this test to go through premarket FDA review, and therefore it has not been cleared or approved by the FDA. This report was reviewed and approved by the on-service pathologist. Ordering Provider: CADEN FELIZ Report Released Date/Time: Apr 27, 2024 11:46 AM Reporting Lab: [facility] [address] [facility] [address] Performing Lab: [facility] [address] [facility] [address] SARS-COV-2 Lineage(WHV) MC.1 SARS-COV-2 Clade(WHV) 24C (Omicron) Social History: Smoking Status (Most current) and [...] Facil ity Feb 08, 2023 10:00 AM [place]-TOBACCO QUIT 15 YRS OR MORE [facility] Tobacco Use History This section includes a history of the smoking, or tobacco-related health factors, that were collected on or before the date of the Encounter. The data comes from the [place] facility where the Encounter took place. Date/Time Smoking Status/Tobac co Use Comment Facility Feb 08, 2023 10:00 AM [place]-TOBACCO QUIT 15 YRS OR MORE [facility] [place] [facility] Mar 06, 2022 02:30 PM VA-TOBACCO FORMER USER [facility] [place] [facility] Mar 06, 2022 02:30 PM VA-TOBACCO QUIT 15 YRS OR MORE [facility] [place] [facility] Apr 04, 2021 10:28 AM VA-TOBACCO NEVER USED [place] [facility] [place] [facility] May 03, 2020 02:00 PM VA-TOBACCO NEVER USED [place] [facility] [place] [facility] Feb 25, 2019 08:14 AM VA-TOBACCO FORMER USER [place] [facility] [place] [facility] Feb 25, 2019 08:14 AM VA-TOBACCO QUIT 5 TO < 15 YRS [facility] [place] [facility] Apr 04, 2018 10:41 AM QUIT TOBACCO USE 1-7 YEARS AGO [facility] [place] [facility] Oct 28, 2017 10:18 AM QUIT TOBACCO USE 1-7 YEARS AGO [facility] [place] [facility] Jan 22, 2017 01:08 PM QUIT TOBACCO USE 1-7 YEARS AGO [facility] [place] [facility] Jul 18, 2016 01:34 PM QUIT TOBACCO USE 1-7 YEARS AGO [facility] [place] [facility] January 10, 2016 10:32 AM QUIT TOBACCO USE 1-7 YEARS AGO [facility] [place] [facility] Oct 13, 2015 11:05 AM QUIT TOBACCO USE 1-7 YEARS AGO [facility] [place] [facility] Oct 19, 2014 01:53 PM QUIT TOBACCO USE > 7 YEARS AGO [facility] [place] [facility] January 02, 2014 01:30 AM QUIT TOBACCO USE IN PAST YEAR [facility] [place] [facility] Jun 18, 2013 09:00 AM CURRENT SMOKER 6 cigarettes qd [facility] [place] [facility] Jun 18, 2013 09:00 AM V1-PT DECLINES TOBACCO CESSATION MEDS [place] [facility] [place] [facility] Jun 18, 2013 09:00 AM V1-PT NOT INTERESTED IN QUIT TOBACCO USE [facility] December 24, 2012 10:51 AM V1-PT DECLINES REF TO TOBACCO CESS PRGM [facility] MICN [facility] December 24, 2012 10:51 AM V1-PT DECLINES TOBACCO CESSATION MEDS [facility] December 24, 2012 10:51 AM V1-PT THINKING ABOUT QUIT [facility]AC[facility] Jul 15, 2012 10:19 AM QUIT TOBACCO USE IN PAST YEAR [facility] Jan 25, 2012 05:02 PM QUIT TOBACCO USE IN PAST YEAR [facility] Sep 28, 2011 10:09 AM CURRENT SMOKER 5 cigarettes a day [facility] Jun 15, 2011 02:23 PM V1-PT DECLINES REF TO TOBACCO CESS PR[facility] Jun 15, 2011 02:23 PM V1-PT READY TO QUIT TOBACCO USE [facility] Apr 13, 2011 10:31 AM V1-PT DECLINES REF TO TOBACCO CESS [facility] Apr 13, 2011 10:31 AM V1-PT RECEIVES TOBACCO CESS MEDS OUTSIDE [facility] Apr 13, 2011 10:31 AM V1-PT THINKING ABOUT QUIT [facility]BACCO [facility] Oct 16, 2010 08:52 AM QUIT TOBACCO USE IN PAST YEAR [facility] May 12, 2010 02:08 PM V1-PT DECLINES REF TO TOBACCO CESS PRGM [facility] May 12, 2010 02:08 PM V1-PT READY TO QUIT TOBACCO USE [facility] May 12, 2010 12:45 PM CURRENT SMOKER 3 cigarettes a day [facility] Encounter Notes: All associated encounter notes This section contains the clinical notes associated to the Encounter. Date/Time Encounter Note(s) Provider Source Mar 30, 2024 02:50 PM PSYCHIATRY GROUP COUNSELING NOTE: LOCAL TITLE: PSYCHOLOGY GROUP NOTE STANDARD TITLE: PSYCHIATRY GROUP COUNSELING NOTE DATE OF NOTE: MAR 30, 2024@14:50 ENTRY DATE: MAR 30, 2024@14:51:01 AUTHOR: LO GIBBS EXP COSIGNER: URGENCY: STATUS: COMPLETED [facility] Mindful Compassion Group Therapy Note IDENTITY VERIFICATION: [X] Patient Name [X] Visual recognition [ ] Birthdate [ ] Social Security # ~~~ Hand Wood Sander: Lo Gibbs, PhD PROCEDURE: 60-minute interactive hybrid VVC/F2F group therapy session Problem: Difficulty being present in the moment and fostering compassion Objective: Explored and practice mindful compassion Number of Veterans Present in Group: 7 GROUP CONTENT: Group members engaged in a mindful standing practice. Group members checked in regarding how they would like to relate to discomfort and pain in their lives. Group members reflected on a quote from Mariella Koehler: The is something wonderfully bold and liberating about saying yes to our entire imperfect and messy life. The stages of acceptance of discomfort were presented and briefly discussed. Group members engaged in a mindful listening practice involving listening to an excerpt by Roberto Johnson about noticing kindness and generosity. PROGRESS: arrived on time and was an active and appropriate participant. [facility] participated in the mindfulness practices and group discussions. Mental Status was not formally assessed due to the nature of the encounter. maintained appropriate eye contact and was alert. [facility] spoke clearly and coherently. [facility]'s thoughts were linear and related. [facility]'s affect was congruent to content and appropriate in range. No clinical signs of intoxication, withdrawal, psychosis, or cognitive impairment were observed. No evidence of suicidal or homicidal ideation. There was no evidence of AH/VH or delusions. [facility] was future oriented. DSM-V DIAGNOSTIC IMPRESSIONS(per chart): PTSD, chronic PLAN: will continue to participate in the Mindful Compassion Group on Mondays at 1pm. /jeana/ Lo Gibbs, PhD Clinical Psychologist, [facility] Signed: 03/30/2024 14:54 LO GIBBS [facility]
--- OUTSIDE RECORDS SUMMARY | 2024-08-04 17:18 | XMS_ITS ---
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 Name Role Phone CADEN FELIZ Primary Care [...] PLAN I Aug 19, 2019 PLAN I [id number] [phone] MEEK,SABINE ICEL PATIENT [employer] OPTIONS MEDICARE SUPPLEMEN MARCIA PLANM Y Aug 19, 2019 PLANMY [id number] MEEK,GR ICEL PATIENT [employer] OPTIONS MEDICARE SUPPLEMEN MARCIA AARP MEDIC ARE SUPPL Aug 19, 2019 PLAN MY [id number] [phone] MEEK,GR ICEL PATIENT AARP INS MEDICARE SUPPLEMEN MARCIA PLANM Y Aug 19, 2019 PLANMY [id number] MEEK,GR ICEL PATIENT AARP MED SUPP MEDICARE SUPPLEMEN MARCIA Jul 19, 2010 PLANMY [id number] [phone] MEEK,GR ICEL PATIENT MEDICARE (WNR) MEDICARE () PART B Aug 19, 2008 PART B [id number] [phone] MEEK,GR ICEL PATIENT MEDICARE (WNR) MEDICARE () PART B Aug 19, 2008 PART B [id number] MEEK,GR ICEL PATIENT MEDICARE (WNR) MEDICARE () PART B Aug 19, 2008 PART B [id number] MEEK,GR ICEL PATIENT MEDICARE (WNR) MEDICARE () PART B Aug 19, 2008 PART B [id number] [phone] MEEK,GR ICEL PATIENT MEDICARE (WNR) MEDICARE () PART B Aug 19, 2008 PART B [id number] [phone] MEEK,GR ICEL PATIENT MEDICARE (WNR) MEDICARE () PART B Aug 19, 2008 PART B [id number] MEEK,GR ICEL PATIENT MEDICARE (WNR) MEDICARE () PART B Aug 19, 2008 PART B [id number] [phone] MEEK,GR ICEL PATIENT MEDICARE (WNR) MEDICARE () PART A December 18, 2003 PART A [id number] [phone] MEEK,GR ICEL PATIENT MEDICARE (WNR) MEDICARE () PART A December 18, 2003 PART A [id number] [phone] MEEK,GR ICEL PATIENT MEDICARE (WNR) MEDICARE () PART A December 18, 2003 PART A [id number] [phone] MEEK,GR ICEL PATIENT MEDICARE (WNR) MEDICARE () PART A December 18, 2003 PART A [id number] MEEK,GR ICEL PATIENT MEDICARE (WNR) MEDICARE () PART A December 18, 2003 PART A [id number] MEEK,GR ICEL PATIENT MEDICARE (WNR) MEDICARE () PART A December 18, 2003 PART A [id number] SABINE MEEK PATIENT MEDICARE (WNR) MEDICARE (M) PART A December 18, 2003 PART A [id number] SABINE MEEK PATIENT Selected Encounter This section includes the information on record at OR for the Encounter. Date/Time Encounter Type Encounter Description Reason Pro vider Source Mar 11, 2024 12:00 AM Outpatient Encounter COMMUNITY CARE CONSULT IHE Encounter Template Text not used by OR Plan of Treatment: Future Appointments (+ 6 months) and Future Tests (+/- 45 days) The Plan of Treatment section includes future care activities for the patient from all OR treatmentfacilities. This section includes future appointments and future orders which are active, pending or scheduled. Future Appointments This section includes appointments that were scheduled to occur 6 months from the date of the Encounter, up to a maximum of 20 appointments. The data comes from all [place] treatment facilities. Appointment Date/Time Appointment Type Appointme nt Facility Name Mar 18, 2024 08:30 AM AMBULATORY - MEDICINE [place] [facility] [place] [facility] Mar 23, 2024 01:00 PM AMBULATORY - PSYCHIATRY [place] [facility] [place] [facility] Mar 30, 2024 01:00 PM AMBULATORY - PSYCHIATRY [place] [facility] [place] [facility] Apr 06, 2024 12:30 PM AMBULATORY - MEDICINE OR [facility] [place] [facility] Apr 06, 2024 01:00 PM AMBULATORY - MEDICINE [place] [facility] [place] [facility] Apr 23, 2024 08:40 AM AMBULATORY - PSYCHIATRY [facility] [place] [facility] May 08, 2024 08:00 AM AMBULATORY - MEDICINE [place] [facility] [place] [facility] May 11, 2024 01:00 PM AMBULATORY - PSYCHIATRY [facility] [place] [facility] May 18, 2024 01:00 PM AMBULATORY - PSYCHIATRY [facility] [place] [facility] May 20, 2024 09:30 AM AMBULATORY - MEDICINE [place] [facility] [place] [facility] May 25, 2024 01:00 PM AMBULATORY - PSYCHIATRY [place] [facility] [place] [facility] Jun 08, 2024 09:30 AM AMBULATORY - PSYCHIATRY [place] [facility] [place] [facility] Jun 08, 2024 01:00 PM AMBULATORY - PSYCHIATRY [place] [facility] [place] [facility] Jun 15, 2024 01:00 PM AMBULATORY - PSYCHIATRY [facility] [place] [facility] Jun 19, 2024 09:00 AM AMBULATORY - PSYCHIATRY [facility] [place] [facility] Jun 27, 2024 09:30 AM AMBULATORY - MEDICINE [place] [facility] [place] [facility] Jul 06, 2024 01:00 PM AMBULATORY - PSYCHIATRY [facility] [place] [facility] Jul 13, 2024 11:30 AM AMBULATORY - MEDICINE [place] [facility] [place] [facility] Jul 13, 2024 01:00 PM AMBULATORY - PSYCHIATRY [place] [facility] [place] [facility] Jul 20, 2024 09:30 AM [facility] Active, Pending, and Scheduled Orders This section includes a listing of several types of active, pending, and scheduled orders, including clinic medications orders, diagnostic test orders, procedure orders and consult orders; where the start date of the order is 45 days before the date of the Encounter or 45 days after the date of theEncounter. The data comes from all [place] treatment facilities. Test Date/Time Test Type Test Details Facility Name Feb 28, 2024 12:49 PM Consult Order COMMUNITY CARE-CARDIOLOGY Cons Pipe [employer] [facility] Apr 21, 2024 10:05 AM Consult Order COMMUNITY CARE-MAMMOGRAPHY FEMALE SCREEN Cons [employer]ipe [employer] [place] Lab Results: +/- 30 days of [...] Range Comment Apr 06, 2024 01:21 PM [facility] COVID-19 FLU/RSV DIAGNOSTIC PANEL Specimen Type: NASOPHARYNX Comment: This test is authorized for emergency use only. False negative results may occur if virus is present at levels below the analytical limit of detection.Negati ve results do not preclude SARS-CoV-2, influenza or RSV infection and should not be used as the sole basis for treatment or other patient management decisions.Mary siddiqi FLUVID: HCPs: https://www.fda. gov/media/908914 /download. Patients: https://www.fda. gov/media/752709 /download NOTIFIED DR FELIZ 04/06/24@1552 BY EMAILED TO INFECTION CONTROL FAXED TO [facility] Ordering Provider: CADEN FELIZ Report Released Date/Time: Apr 06, 2024 12:55 PM Reporting Lab: [address] [address] Performing Lab: [address] [address] COVID-19 PCR (FLUVID) POSITIVE HH NEGATIVE FLU A PCR (FLUVID) NEGATIVE FLU B PCR (FLUVID) NEGATIVE RSV PCR (FLUVID) NEGATIVE Apr 06, 2024 01:21 PM [facility] SARS-COV-2 VARIANT SEQ PNL(V) Specimen Type: NASOPHARYNX Comment: -Pangolin version 4.3.1 (data version ) -Nextclade version 3.8.2 (data version 2024-03-04) https://www.cdc. gov/coronavirus/ 2019-ncov/cases- updates/variant- surveillance/jv iant-info.html The Coolerado SARS CoV 2 [employer] Assay-GX is a next-generation sequencing (NGS) assay that determines the complete genome sequence of the SARS-CoV-2 virus. The assay contains variant-tolerant primers to broaden and improve the coverage for variant detection and increase the sensitivity of the panel to enable detection from lower viral titer samples. The assay is run on the [employer] Sequencer, which performs automated library preparation, sequencing, analysis, and reporting. The sequence analysis includes determination of viral phylogenetic lineage by comparison to the reference strain Wuhan-Hu-1, GenBank: [id number]. Sequence determination may not be possible owing to inadequate quantity or quality of the viral RNA in the original specimen. Sequencing will not be attempted if the SARS-CoV-2 PCR assay result has a Ct > 30. Note that phylogenetic lineage assignment in some cases may private branch exchange repairer time for the same sequence as the virus continues to evolve and new sub lineages are created. The reported result will reflect the lineage assignment only at the time of initial sequence determination. This test was developed, and its performance characteristics determined by the [facility], which is certified under the Clinical Laboratory Improvement Amendments (CLIA) as qualified to perform high complexity clinical laboratory testing. This test is validated for clinical use at [facility] and should not be regarded as investigational or for research. The FDA does not require this test to go through premarket FDA review, and therefore it has not been cleared or approved by the FDA. This report was reviewed and approved by the on-service pathologist. Ordering Provider: CADEN FELIZ Report Released Date/Time: Apr 27, 2024 11:46 AM Reporting Lab: [address] [address] Performing Lab: [address] [address] SARS-COV-2 Lineage(WHV) MC.1 SARS-COV-2 Clade(WHV) 24C (Omicron) Feb 28, 2024 01:01 PM [facility] THYROID T4 FREE(FT4) (WROX) Specimen Type: SERUM No comment entered. Ordering Provider: CADEN FELIZ Report Released Date/Time: Feb 28, 2024 12:47 PM Reporting Lab: [facility] [address] Performing Lab: [facility] [address] [facility] [address] THYROID T4 FREE(FT4) (WROX) 0.93 ng/dL 0.6-1.6 Feb 28, 2024 01:01 PM [facility] TSH Specimen Type: SERUM No comment entered. Ordering Provider: CADEN FELIZ Report Released Date/Time: Feb 28, 2024 12:47 PM Reporting Lab: [facility] [address] Performing Lab: [facility] [address] TSH 0.54 u[IU]/mL 0.35-5.00 Feb 28, 2024 01:01 PM [facility] LIVER FUNCTION Specimen Type: SERUM No comment entered. Ordering Provider: CADEN FELIZ Report Released Date/Time: Feb 28, 2024 12:47 PM Reporting Lab: [address] [address] Performing Lab: [address] [address] PROTEIN,TOTA L 7.0 g/dL 6.0-8.3 ALBUMIN 4.2 [...] Feb 28, 2024 12:47 PM Reporting Lab: [address] [address] Performing Lab: [address] [address] HEMOGLOBIN A1C 6.2 H 4.0-5.6 Feb 28, 2024 01:01 PM [facility] BASIC METABOLIC PANEL (non-fasting) Specimen Type: SERUM No comment entered. Ordering Provider: CADEN FELIZ Report Released Date/Time: Feb 28, 2024 12:47 PM Reporting Lab: [address] [address] Performing Lab: [address] [place] [address] UREA NITROGEN 10 mg/dL 7-25 GLUCOSE 148 [...] Feb 28, 2024 12:47 PM Reporting Lab: [address] [address] Performing Lab: [address] [address] WBC 3.39 10*3/uL L 4.50-11.00 RBC 3.84 [...] took place. Date/Time Current Smoking Status Comment [facility] Feb 08, 2023 10:00 AM VA-TOBACCO FORMER USER [place] [facility] [place] [facility] Tobacco Use History This section includes a history of the smoking, or tobacco-related health factors, that were collected on or before the date of the Encounter. The data comes from the OR facility where the Encounter took place. Date/Time Smoking Status/Tobac co Use Comment [facility] Feb 08, 2023 10:00 AM VA-TOBACCO QUIT 15 YRS OR MORE [facility] [place] [facility] Mar 06, 2022 02:30 PM VA-TOBACCO FORMER USER [facility] [place] [facility] Mar 06, 2022 02:30 PM VA-TOBACCO QUIT 15 YRS OR MORE [facility] [place] [facility] Apr 04, 2021 10:28 AM VA-TOBACCO NEVER USED [facility] [place] [facility] May 03, 2020 02:00 PM VA-TOBACCO NEVER USED [place] [facility] [place] [facility] Feb 25, 2019 08:14 AM VA-TOBACCO FORMER USER [facility] [place] [facility] Feb 25, 2019 08:14 AM VA-TOBACCO QUIT 5 TO < 15 YRS [facility] [place] [facility] Apr 04, 2018 10:41 AM QUIT TOBACCO USE 1-7 YEARS AGO [facility] [place] [facility] Oct 28, 2017 10:18 AM QUIT TOBACCO USE 1-7 YEARS AGO [facility] [place] [facility] Jan 22, 2017 01:08 PM QUIT TOBACCO USE 1-7 YEARS AGO [facility] [place] [facility] Jul 18, 2016 01:34 PM QUIT TOBACCO USE 1-7 YEARS AGO [place] [facility] [place] [facility] January 10, 2016 10:32 AM QUIT [facility]BACCO USE [facility] [place] [facility] Oct 13, 2015 11:05 AM QUIT TOBACCO USE 1-7 YEARS AGO [place] [facility] [place] [facility] Oct 19, 2014 01:53 PM QUIT TOBACCO USE > 7 [facility] [place] [facility] January 02, 2014 01:30 AM QUIT TOBACCO USE IN PAST YEAR [facility] [place] [place] [facility] Jun 18, 2013 09:00 AM CURRENT SMOKER 6 cigarettes qd [facility] Jun 18, 2013 09:00 AM V1-PT DECLINES TOBACCO CESSATION MEDS [facility] Jun 18, 2013 09:00 AM V1-PT NOT INTERESTED IN QUIT TOBACCO USE [facility] December 24, 2012 10:51 AM V1-PT DECLINES REF TO TOBACCO CESS PRGM [facility] [place] [facility] December 24, 2012 10:51 AM V1-PT DECLINES TOBACCO CESSATION MEDS [facility] December 24, 2012 10:51 AM V1-PT THINKING ABOUT QUIT TOBACCO USE [facility] [place] [facility] Jul 15, 2012 10:19 AM QUIT TOBACCO USE IN PAST YEAR [facility] Jan 25, 2012 05:02 PM QUIT TOBACCO USE IN PAST YEAR [facility] Sep 28, 2011 10:09 AM CURRENT SMOKER 5 cigarettes a day [facility] [place] [place] [facility] Jun 15, 2011 02:23 PM V1-PT DECLINES REF TO TOBACCO CESS PRGM [facility] [place] [facility] Jun 15, 2011 02:23 PM V1-PT READY TO QUIT TOBACCO USE [facility] [place] [facility] Apr 13, 2011 10:31 AM V1-PT DECLINES REF TO TOBACCO CESS PRGM [facility] Apr 13, 2011 10:31 AM V1-PT RECEIVES TOBACCO CESS MEDS OUTSIDE [facility] Apr 13, 2011 10:31 AM V1-PT [...] the Encounter. The data comes from all [facility] facilities. Date/Time Radiology Report Provider Source Feb 28, 2024 12:54 PM CHEST (2 VIEWS): OSIRIS MEEKL Cristina [id number] F Exm Date: FEB 28, 2024@12:54 Req Phys: CADEN FELIZ Loc: CWM/NO/PACT 6 WH (Req'g Loc) Img Loc: [facility]/BUILDING 1 Service: Unknown [facility] , (Case [id number] COMPLETE) CHEST (2 VIEWS) (RAD Detailed) CPT:50255 Reason for Study: 73yo with ashtma and genearlized puritis Clinical History: to check lung dumont and lympthadenopathy Report Status: Verified Date Reported: FEB 28, 2024 Date Verified: FEB 28, 2024 Care Transitions Manager E-Sig:/ES/NEMO RODRIGUEZ JR Report: Study: PA [...] Primary Interpreting Staff: NEMO RODRIGUEZ JR, Radiologist (Care Transitions Manager) /NEMO WEISS JR [facility] Encounter Notes: All associated encounter notes This section contains the clinical notes associated to the Encounter. Date/Time Encounter Note(s) Provider Source Mar 11, 2024 12:00 AM NONVA CONSULT: LOCAL TITLE: [facility]-CONSULT RESULT NOTE STANDARD TITLE: NONVA CONSULT DATE OF NOTE: MAR 11, 2024 ENTRY DATE: APR 01, 2024@11:32:19 AUTHOR: MADHAVI SANTOS EXP COSIGNER: URGENCY: STATUS: COMPLETED VistA Imaging - Scanned Document SCANNED DOCUMENT SIGNATURE NOT REQUIRED Electronically Filed: 04/01/2024 by: MADHAVI MACHADO [facility]
--- OUTSIDE RECORDS SUMMARY | 2024-08-04 17:19 | XMS_ITS ---
Author Name [facility] [place] [facility] [place] Address [address] [place] [address] Care Team Providers Care Triple Valve Tester Name Role Phone CADEN FELIZ Primary Care [...] PLAN I Aug 19, 2019 PLAN I [id number] MEEK,SABINE ICEL PATIENT [employer] OPT[employer] MEDICARE SUPPLEMEN MARCIA PLANM Y Aug 19, 2019 PLANMY [id number] MEEK,SABINE ICEL PATIENT [employer] OPTIONS MEDICARE SUPPLEMEN MARCIA AARP MEDIC ARE SUPPL Aug 19, 2019 PLAN MY [id number] [phone] MEEK,SABINE ICEL PATIENT AARP INS MEDICARE SUPPLEMEN MARCIA PLANM Y Aug 19, 2019 PLANMY [id number] MEEK,GR ICEL PATIENT AARP MED SUPP MEDICARE SUPPLEMEN MARCIA Jul 19, 2010 PLANMY [id number] MEEK,GR ICEL PATIENT MEDICARE (WNR) MEDICARE () PART B Aug 19, 2008 PART B [id number] MEEK,GR ICEL PATIENT MEDICARE (WNR) MEDICARE () PART B Aug 19, 2008 PART B [id number] [phone] MEEK,GR ICEL PATIENT MEDICARE (WNR) MEDICARE () PART B Aug 19, 2008 PART B [id number] MEEK,GR ICEL PATIENT MEDICARE (WNR) MEDICARE () PART B Aug 19, 2008 PART B [id number] MEEK,GR ICEL PATIENT MEDICARE (WNR) MEDICARE () PART B Aug 19, 2008 PART B [id number] MEEK,GR ICEL PATIENT MEDICARE (WNR) MEDICARE () PART B Aug 19, 2008 PART B [id number] [phone] MEEK,GR ICEL PATIENT MEDICARE (WNR) MEDICARE () PART B Aug 19, 2008 PART B [id number] MEEK,GR ICEL PATIENT MEDICARE (WNR) MEDICARE () PART A December 18, 2003 PART A [id number] [phone] MEEK,GR ICEL PATIENT MEDICARE (WNR) MEDICARE () PART A December 18, 2003 PART A [id number] [phone] MEEK,GR ICEL PATIENT MEDICARE (WNR) MEDICARE () PART A December 18, 2003 PART A [id number] [phone] MEEK,GR ICEL PATIENT MEDICARE (WNR) MEDICARE () PART A December 18, 2003 PART A [id number] MEEK,GR ICEL PATIENT MEDICARE (WNR) MEDICARE () PART A December 18, 2003 PART A [id number] MEEK,GR ICEL PATIENT MEDICARE (WNR) MEDICARE () PART A December 18, 2003 PART A [id number] [phone] SABINE MEEK ICEL PATIENT MEDICARE (WNR) MEDICARE (M) PART A December 18, 2003 PART A [id number] [phone] SABINE MEEK ICEL PATIENT Selected Encounter This section includes the information on record at [place] for the Encounter. Date/Time Encounter Type Encounter Description Reason Provider Source Apr 06, 2024 01:00 PM OFF/OP EST DECEMBER X REQ PHY/QHP PRIMARY CARE/MEDICINE ICD-10-CM R05.1 Acute cough [facility] Encounter Template Text not used by [place] Assessments - Encounter Diagnoses This section includes the primary and secondary diagnoses documented for the Encounter. Date/Time Primary/Secondary Diagnosis Diagnosis Name Provider Source Apr 06, 2024 12:41 PM PRIMARY Acute [facility] Apr 06, 2024 12:41 PM SECONDARY Other specified counseling [facility] Plan of Treatment: Future Appointments (+ 6 months) and Future Tests (+/- 45 days) The Plan of Treatment section includes future care activities for the patient [facility] [place] [facility]. This section includes future appointments and future orders which are active, pending or scheduled. Future Appointments This section includes appointments that were scheduled to occur 6 months from the date of the Encounter, up to a maximum of 20 appointments. The data comes from all [place] treatment facilities. Appointment Date/Time Appointment Type Appointme nt Facility Name Apr 23, 2024 08:40 AM AMBULATORY - PSYCHIATRY [place] [facility] May 08, 2024 08:00 AM AMBULATORY - MEDICINE [facility] May 11, 2024 01:00 PM AMBULATORY - PSYCHIATRY [place] [facility] May 18, 2024 01:00 PM AMBUL[facility]RY [facility] May 20, 2024 09:30 AM AMBULATORY - MEDICINE [place] [facility] May 25, 2024 01:00 PM AMBULATORY - PSYCHIATRY [place] [facility] Jun 08, 2024 09:30 AM AMBUL[facility]ATRY [facility] Jun 08, 2024 01:00 PM AMBULAT[facility] PS[facility]ATRY [facility] Jun 15, 2024 01:00 PM AMBULATORY - PS[facility]IATRY [facility] Jun 19, 2024 09:00 AM AMBULATORY - PS[facility]ATRY [facility] Jun 27, 2024 09:30 AM AMBULATORY [facility] MEDICINE [facility] Jul 06, 2024 01:00 PM AMBULATORY - PS[facility]CHIATRY [facility] Jul 13, 2024 11:30 AM AMBULATORY [facility] MEDICINE [facility] Jul 13, 2024 01:00 PM AMBULATORY - PS[facility]CHIATRY [facility] Jul 20, 2024 09:30 AM AMBULATORY - PS[facility]CHIATRY [facility] Jul 21, 2024 09:30 AM AMBULATORY [facility] MEDICINE [facility] Jul 22, 2024 09:00 AM AMBULATORY - PS[facility]CHIATRY [facility] Jul 27, 2024 01:00 PM AMBULATORY - PS[facility]CHIATRY [facility] Aug 07, 2024 08:00 AM AMBULATORY [facility] MEDICINE [facility] Aug 07, 2024 09:45 AM AMBULATORY - NONE [facility] Active, Pending, and Scheduled Orders This [...] 12:49 PM Consult Order COMMUNITY CARE-CARDIOLOGY Cons Loom Technician's Choice [facility] Apr 21, 2024 10:05 AM Consult Order COMMUNITY CARE-MAMMOGRAPHY FEMALE SCREEN Cons Loom Technician's Choice [place] [facility] Lab Results: +/- 30 days of the [...] Range Comment Apr 06, 2024 01:21 PM [facility] COVID-19 FLU/RSV DIAGNOSTIC PANEL Specimen Type: NASOPHARYNX Comment: This test is authorized for emergency use only. False negative results may occur if virus is present at levels below the analytical limit of detection.Negati ve results do not preclude SARS-CoV-2, influenza or RSV infection and should not be used as the sole basis for treatment or other patient management decisions.Cephei d FLUVID: HCPs: https://www.fda. gov/media/988219 /download. Patients: https://www.fda. gov/media/374865 /download NOTIFIED DR FELIZ 04/06/24@5272 BY EMAILED TO INFECTION CONTROL FAXED TO [facility] Ordering Provider: CADEN FELIZ Report Released Date/Time: Apr 06, 2024 12:55 PM Reporting Lab: [address] [address] Performing Lab: [address] [address] COVID-19 PCR (FLUVID) POSITIVE HH NEGATIVE FLU A PCR (FLUVID) NEGATIVE FLU B PCR (FLUVID) NEGATIVE RSV PCR (FLUVID) NEGATIVE Apr 06, 2024 01:21 PM [facility] SARS-COV-2 VARIANT SEQ PNL(WHV) Specimen Type: NASOPHARYNX Comment: -Pangolin version 4.3.1 (data version ) -Nextclade version 3.8.2 (data version 2024-03-04) https://www.cdc. gov/coronavirus/ 2019-ncov/cases- updates/variant- surveillance/jv iant-info.html The [employer] SARS CoV 2 [employer] Research Assay-GX is a next-generation sequencing (NGS) assay that determines the complete genome sequence of the SARS-CoV-2 virus. The assay contains variant-tolerant primers to broaden and improve the coverage for variant detection and increase the sensitivity of the panel to enable detection from lower viral titer samples. The assay is run on the BookFresh Sequencer, which performs automated library preparation, sequencing, analysis, and reporting. The sequence analysis includes determination of viral phylogenetic lineage by comparison to the reference strain Wu[place]-Hu-1, GenBank: [id number]. Sequence determination may not be possible owing to inadequate quantity or quality of the viral RNA in the original specimen. Sequencing will not be attempted if the SARS-CoV-2 PCR assay result has a Ct > 30. Note that phylogenetic lineage assignment in some cases may currency exchange specialist time for the same sequence as the virus continues to evolve and new sub lineages are created. The reported result will reflect the lineage assignment only at the time of initial sequence determination. This test was developed, and its performance characteristics determined by the [facility], which is certified under the Clinical Laboratory Improvement Amendments (CLIA) as qualified to perform high complexity clinical laboratory testing. This test is validated for clinical use at [facility] and should not be regarded as investigational or for research. The FDA does not require this test to go through premarket FDA review, and therefore it has not been cleared or approved by the FDA. This report was reviewed and approved by the on-service pathologist. Ordering Provider: CADEN FELIZ Report Released Date/Time: Apr 27, 2024 11:46 AM Reporting Lab: [facility] [address] [facility] [address] Performing Lab: [facility] [address] [facility] [address] SARS-COV-2 Lineage(WHV) MC.1 SARS-COV-2 Clade(WHV) 24C (Omicron) Vital Signs: All taken on the encounter date This section contains inpatient and outpatient Vital Signs collected on the date of the Encounter. Date/Time Temperature Pulse Blood Pressure Respiratory Rate SP02 Pain Height Weight Body Mass Index Source Apr 06, 2024 12:43 PM 97.6 94 136/78 19 97 [facility] Social History: Smoking Status (Most current) [...] place. Date/Time Current Smoking Status Comment [facility] Apr 06, 2024 12:30 PM VA-TOBACCO FORMER USER [place] [facility] Tobacco Use History This section includes a history of the smoking, or tobacco-related health factors, that were collected on or before the date of the Encounter. The data comes from the [place] facility where the Encounter took place. Date/Time Smoking Status/Tobac co Use Comment Facility Apr 06, 2024 12:30 PM VA-TOBACCO QUIT 15 YRS OR MORE [facility] Feb 08, 2023 10:00 AM VA-TOBACCO FORMER USER [facility] Feb 08, 2023 10:00 AM VA-TOBACCO QUIT 15 YRS OR MORE [facility] Mar 06, 2022 02:30 PM VA-TOBACCO FORMER USER [facility] Mar 06, 2022 02:30 PM VA-TOBACCO QUIT 15 YRS OR MORE [facility] Apr 04, 2021 10:28 AM VA-TOBACCO NEVER USED [place] [facility] May 03, 2020 02:00 PM VA-TOBACCO NEVER USED [facility] Feb 25, 2019 08:14 AM VA-TOBACCO FORMER USER [facility] Feb 25, 2019 08:14 AM VA-TOBACCO QUIT 5 TO < 15 YRS [facility] Apr 04, 2018 10:41 AM QUIT TOBACCO USE 1-7 YEARS AGO [facility] Oct 28, 2017 10:18 AM QUIT TOBACCO USE 1-7 YEARS AGO [facility] Jan 22, 2017 01:08 PM QUIT TOBACCO USE 1-7 YEARS AGO [facility] Jul 18, 2016 01:34 PM QUIT TOBACCO USE 1-7 YEARS AGO [facility] January 10, 2016 10:32 AM QUIT TOBACCO USE 1-7 YEARS AGO [facility] Oct 13, 2015 11:05 AM QUIT TOBACCO USE 1-7 YEARS AGO [facility] Oct 19, 2014 01:53 PM QUIT TOBACCO USE > 7 YEARS AGO [facility] January 02, 2014 01:30 AM QUIT TOBACCO [facility] Jun 18, 2013 09:00 AM CURRENT SMOKER 6 cigarettes qd [place] [facility] Jun 18, 2013 09:00 AM V1-PT DECLINES TOBACCO CESSATION MEDS [place] [facility] Jun 18, 2013 09:00 AM V1-PT NOT INTERESTED IN QUIT TOBACCO USE [facility] December 24, 2012 10:51 AM V1-PT DECLINES REF TO TOBACCO CESS PRGM [facility] December 24, 2012 10:51 AM V1-PT DECLINES TOBACCO CESSATION MEDS [facility] December 24, 2012 10:51 AM V1-PT THINKING ABOUT QUIT TOBACCO USE [facility] Jul 15, 2012 10:19 AM QUIT TOBACCO USE IN PAST YEAR [facility] Jan 25, 2012 05:02 PM QUIT TOBACCO USE IN PAST YEAR [facility] Sep 28, 2011 10:09 AM CURRENT SMOKER 5 cigarettes a day [facility] Jun 15, 2011 02:23 PM V1-PT DECLINES REF TO TOBACCO CESS PRGM [facility] Jun 15, 2011 02:23 PM V1-PT READY TO QUIT TOBACCO USE [facility] Apr 13, 2011 10:31 AM V1-PT DECLINES REF TO TOBACCO CESS PRGM [facility] Apr 13, 2011 10:31 AM V1-PT RECEIVES TOBACCO CESS MEDS OUTSIDE [facility] Apr 13, 2011 10:31 AM V1-PT THINKING ABOUT QUIT TOBACCO USE [facility] Oct 16, 2010 08:52 AM QUIT TOBACCO USE IN PAST YEAR [facility] May 12, 2010 02:08 PM V1-PT DECLINES REF TO TOBACCO CESS [facility] May 12, 2010 02:08 PM V1-PT READY TO QUIT TOBACCO USE [facility] MICN [facility] May 12, 2010 12:45 PM CURRENT SMOKER 3 cigarettes a day [facility] Encounter Notes: All associated encounter notes This section contains the clinical notes associated to the Encounter. Date/Time Encounter Note(s) Provider Source Apr 06, 2024 12:39 PM PRIMARY CARE OUTPA [facility] NOTE: LOCAL TITLE: AMBULATORY/OUTPATIENT CARE NOTE STANDARD TITLE: PRIMARY CARE OUTPATIENT NOTE DATE OF NOTE: APR 06, 2024@12:39 ENTRY DATE: APR 06, 2024@12:39:07 AUTHOR: MARY SERVIN EXP COSIGNER: URGENCY: STATUS: COMPLETED AMBULATORY/OUTPATIENT CARE NOTE Has ADDENDA Vet presented to Primary care wiht ocmplaints of increased asthma symptoms and allergies. Vet has a raspy voice and runny nose and c/o of sinus pressure. vet also has had a dry cough and states that her asthma feels worse. Vet talking in full sentences but appears uncomfortable. Frequently clearing throat and coughing. No known sick contact. VS: 136/78 P-94 R-19 97%RA T-97.6 PCP agreeable to see Vet for eval. /mega Servin RN Primary Care Staff Nurse Signed: 04/06/2024 12:41 04/06/2024 ADDENDUM STATUS: COMPLETED Covid/RSV/Flu swab obtained per PCP order /mega Servin RN Primary Care Staff Nurse Signed: 04/06/2024 13:13 MARY SERVIN [facility]
--- OUTSIDE RECORDS SUMMARY | 2024-08-04 17:19 | XMS_ITS | Encounter Summary ---
Author Name [facility] [place] [facility] [place] [place] Address [address] [place] [address] Care Team Providers Care Cemetery Vault Installer Name Role Phone CADEN FELIZ Primary Care [...] PLAN I Aug 19, 2019 PLAN I [id number] [phone] HARDING,GR ICEL PATIENT [employer] OPTIONS MEDICARE SUPPLEMEN MARCIA PLANM Y Aug 19, 2019 PLANMY [id number] HARDING,GR ICEL PATIENT [employer] HE[employer] OPTIONS MEDICARE SUPPLEMEN MARCIA AARP MEDIC ARE SUPPL Aug 19, 2019 PLAN MY [id number] HARDING,GR ICEL PATIENT AARP INS MEDICARE SUPPLEMEN MARCIA PLANM Y Aug 19, 2019 PLANMY [id number] HARDING,GR ICEL PATIENT AARP MED SUPP MEDICARE SUPPLEMEN MARCIA Jul 19, 2010 [facility] [id number] HARDING,GR ICEL PATIENT MEDICARE (WNR) MEDICARE () PART B Aug 19, 2008 PART B [id number] HARDING,GR ICEL PATIENT MEDICARE (WNR) MEDICARE () PART B Aug 19, 2008 PART B [id number] HARDING,GR ICEL PATIENT MEDICARE (WNR) MEDICARE () PART B Aug 19, 2008 PART B [id number] HARDING,GR ICEL PATIENT MEDICARE (WNR) MEDICARE () PART B Aug 19, 2008 PART B [id number] HARDING,GR ICEL PATIENT MEDICARE (WNR) MEDICARE () PART B Aug 19, 2008 PART B [id number] HARDING,GR ICEL PATIENT MEDICARE (WNR) MEDICARE () PART B Aug 19, 2008 PART B [id number] [phone] HARDING,GR ICEL PATIENT MEDICARE (WNR) MEDICARE () PART B Aug 19, 2008 PART B [id number] [phone] HARDING,GR ICEL PATIENT MEDICARE (WNR) MEDICARE () PART A December 18, 2003 PART A [id number] HARDING,GR ICEL PATIENT MEDICARE (WNR) MEDICARE () PART A December 18, 2003 PART A [id number] [phone] HARDING,GR ICEL PATIENT MEDICARE (WNR) MEDICARE () PART A December 18, 2003 PART A [id number] HARDING,GR ICEL PATIENT MEDICARE (WNR) MEDICARE () PART A December 18, 2003 PART A [id number] HARDING,GR ICEL PATIENT MEDICARE (WNR) MEDICARE () PART A December 18, 2003 PART A [id number] HARDING,GR ICEL PATIENT MEDICARE (WNR) MEDICARE (M) PART A December 18, 2003 PART A [id number] SABINE HARDING ICEJacky PATIENT MEDICARE (WNR) MEDICARE (M) PART A December 18, 2003 PART A [id number] SABINE HARDING PATIENT Selected Encounter This section includes the information on record at [place] for the Encounter. Date/Time Encounter Type Encounter Description Reason Provider Source Apr 06, 2024 12:30 PM OFFICE O/P EST SF 10 MIN PRIMARY CARE/MEDICINE ICD-10-CM J30.9 Allergic rhinitis, unspecified CADEN FELIZ Darshan Encounter Template Text not used by [place] Assessments - Encounter Diagnoses This section includes the primary and secondary diagnoses documented for the Encounter. Date/Time Primary/Secondary Diagnosis Diagnosis Name Provider Source Apr 06, 2024 01:22 PM PRIMARY Allergic rhinitis, unspecified CADEN FELIZ [facility] Plan of Treatment: Future Appointments (+ 6 months) and Future Tests (+/- 45 days) The Plan of Treatment section includes future care activities for the patient from [facility] This section includes future appointments and future orders which are active, pending or scheduled. Future Appointments This section includes appointments that were scheduled to occur 6 months from the date of the Encounter, up to a maximum of 20 appointments. The data comes from all [place] treatment facilities. Appointment Date/Time Appointment Type Appointme nt Facility Name Apr 23, 2024 08:40 AM AMBULATORY - PSYCHIATRY [facility] May 08, 2024 08:00 AM AMBULATORY - MEDICINE [facility] May 11, 2024 01:00 PM AMBULATORY - PSYCHIATRY [facility] May 18, 2024 01:00 PM AMBULATORY - PSYCHIATRY [facility] May 20, 2024 09:30 AM AMBULATORY - MEDICINE [facility] May 25, 2024 01:00 PM AMBULATORY - PSYCHIATRY [facility] Jun 08, 2024 09:30 AM AMBULATORY - PSYCHIATRY [facility] Jun 08, 2024 01:00 PM AMBULATORY - PSYCHIATRY [facility] Jun 15, 2024 01:00 PM AMBULATORY - PS[facility]CHIATRY [facility] Jun 19, 2024 09:00 AM AMBULATORY - PSYCHIATRY [facility] Jun 27, 2024 09:30 AM AMBULATORY - MEDICINE [facility] Jul 06, 2024 01:00 PM AMBULATORY - PSYCHIATRY [facility] Jul 13, 2024 11:30 AM AMBULATORY - MEDICINE [facility] Jul 13, 2024 01:00 PM AMBULATORY - PSYCHIATRY [facility] Jul 20, 2024 09:30 AM AMBULATORY - PSYCHIATRY [facility] Jul 21, 2024 09:30 AM AMBULATORY - MEDICINE [facility] Jul 22, 2024 09:00 AM AMBULATORY - PSYCHIATRY [facility] Jul 27, 2024 01:00 PM AMBULATORY - PSYCHIATRY [facility] Aug 07, 2024 08:00 AM AMBULATORY - MEDICINE [facility] Aug 07, 2024 09:45 AM AMBULATORY - NONE [facility] Active, Pending, and Scheduled Orders This section includes a listing of several types of active, pending, and scheduled orders, including clinic medications orders, diagnostic test orders, procedure orders and consult orders; where the start date of the order is 45 days before the date of the Encounter or 45 days after the date of theEncounter. The data comes from all [place] treatment facilities. Test Date/Time Test Type Test Details Facility Name Feb 28, 2024 12:49 PM Consult Order COMMUNITY CARE-CARDIOLOGY Cons Manager [facility] Apr 21, 2024 10:05 AM Consult Order COMMUNITY CARE-MAMMOGRAPHY FEMALE SCREEN Cons Manager [facility] Lab Results: +/- 30 days of [...] Range Comment Apr 06, 2024 01:21 PM [facility] COVID-19 FLU/RSV DIAGNOSTIC PANEL Specimen Type: [...] patient management decisions.Mary siddiqi FLUVID: HCPs: https://www.fda. gov/media/161717 /download. Patients: https://www.fda. gov/media/621296 /download NOTIFIED DR FELIZ 04/06/24@9060 BY EMAILED TO INFECTION CONTROL FAXED TO [facility] Ordering Provider: CADEN FELIZ Report Released Date/Time: Apr 06, 2024 12:55 PM Reporting Lab: [address] [address] Performing Lab: [address] [address] COVID-19 PCR (FLUVID) POSITIVE HH NEGATIVE FLU A PCR (FLUVID) NEGATIVE FLU B PCR (FLUVID) NEGATIVE RSV PCR (FLUVID) NEGATIVE Apr 06, 2024 01:21 PM [facility] SARS-COV-2 VARIANT SEQ PNL(WHV) Specimen Type: NASOPHARYNX Comment: -Pangolin version 4.3.1 (data version ) -Nextclade version 3.8.2 (data version 2024-03-04) https://www.cdc. gov/coronavirus/ 2019-ncov/cases- updates/variant- surveillance/jv iant-info.html The [employer] AmpliSeq SARS CoV 2 Insight Research Assay-GX is a next-generation sequencing (NGS) assay that determines the complete genome sequence of the SARS-CoV-2 virus. The assay contains variant-tolerant primers to broaden and improve the coverage for variant detection and increase the sensitivity of the panel to enable detection from lower viral titer samples. The assay is run on the Genexus Integrated Sequencer, which performs automated library preparation, sequencing, analysis, and reporting. The sequence analysis includes determination of viral phylogenetic lineage by comparison to the reference strain Wuhan-Hu-1, GenBank: [id number]. Sequence determination may not be possible owing to inadequate quantity or quality of the viral RNA in the original specimen. Sequencing will not be attempted if the SARS-CoV-2 PCR assay result has a Ct > 30. Note that phylogenetic lineage assignment in some cases may mold changer time for the same sequence as the virus continues to evolve and new sub lineages are created. The reported result will reflect the lineage assignment only at the time of initial sequence determination. This test was developed, and its performance characteristics determined by the [facility], which is certified under the Clinical Laboratory Improvement Amendments (CLIA) as qualified to perform high complexity clinical laboratory testing. This test is validated for clinical use at [facility] and should not be regarded as investigational or for research. The FDA does not require this test to go through premarket FDA review, and therefore it has not been cleared or approved by the FDA. This report was reviewed and approved by the on-service pathologist. Ordering Provider: CADEN FELIZ Report Released Date/Time: Apr 27, 2024 11:46 AM Reporting Lab: [facility] [address] [facility] [address] Performing Lab: [address] [address] SARS-COV-2 Lineage(WHV) MC.1 SARS-COV-2 Clade(WHV) 24C (Omicron) Vital Signs: All taken on the encounter date This section contains inpatient and outpatient Vital Signs collected on the date of the Encounter. Date/Time Temperature Pulse Blood Pressure Respiratory Rate SP02 Pain Height Weight Body Mass Index Source Apr 06, 2024 12:43 PM 97.6 94 136/78 19 97 [facility] Social History: Smoking Status (Most current) and Tobacco Use (All prior to encounter date) This section includes the most current, and the historical, smoking and tobacco- related health factors from the [place] facility where the Encounter took place. Current Smoking Status This section includes the most current smoking, or tobacco-related health factor, from the [place] facility where the Encounter took place. Date/Time Current Smoking Status Comment Facil ity Apr 06, 2024 12:30 PM VA-TOBACCO FORMER USER [facility] Tobacco Use History This section includes a history of the smoking, or tobacco-related health factors, that were collected on or before the date of the Encounter. The data comes from the [place] facility where the Encounter took place. Date/Time Smoking Status/Tobac co Use Comment [facility] Apr 06, 2024 12:30 PM VA-TOBACCO QUIT 15 YRS OR MORE [facility] Feb 08, 2023 10:00 AM VA-TOBACCO FORMER USER [facility] Feb 08, 2023 10:00 AM VA-TOBACCO QUIT 15 YRS OR MORE [facility] Mar 06, 2022 02:30 PM VA-TOBACCO FORMER USER [facility] Mar 06, 2022 02:30 PM VA-TOBACCO QUIT 15 YRS OR MORE [facility] Apr 04, 2021 10:28 AM VA-TOBACCO NEVER USED [facility] May 03, 2020 02:00 PM VA-TOBACCO NEVER USED [facility] Feb 25, 2019 08:14 AM VA-TOBACCO FORMER USER [facility] Feb 25, 2019 08:14 AM VA-TOBACCO QUIT 5 TO < 15 YRS [facility] Apr 04, 2018 10:41 AM QUIT TOBACCO USE 1-7 YEARS AGO [facility] Oct 28, 2017 10:18 AM QUIT TOBACCO USE 1-7 YEARS AGO [facility] Jan 22, 2017 01:08 PM QUIT TOBACCO USE 1-7 YEARS AGO [facility] Jul 18, 2016 01:34 PM QUIT TOBACCO USE 1-7 YEARS AGO [facility] January 10, 2016 10:32 AM QUIT TOBACCO USE 1-7 YEARS AGO [facility] Oct 13, 2015 11:05 AM QUIT TOBACCO USE 1-7 YEARS AGO [facility] Oct 19, 2014 01:53 PM QUIT TOBACCO USE > 7 YEARS AGO [facility] January 02, 2014 01:30 AM QUIT TOBACCO USE IN PAST YEAR [facility] [place] [facility] Jun 18, 2013 09:00 AM CURRENT SMOKER 6 cigarettes qd [facility] [place] [facility] Jun 18, 2013 09:00 AM V1-PT DECLINES TOBACCO CESSATION MEDS [facility] Jun 18, 2013 09:00 AM V1-PT NOT INTERESTED IN QUIT TOBACCO USE [facility] [facility] December 24, 2012 10:51 AM V1-PT DECLINES REF TO TOBACCO CESS PRGM [facility] December 24, 2012 10:51 AM V1-PT DECLINES TOBACCO CESSATION MEDS [facility] December 24, 2012 10:51 AM V1-PT THINKING ABOUT QUIT TOBACCO USE [facility] [place] [facility] Jul 15, 2012 10:19 AM QUIT TOBACCO USE IN PAST YEAR [facility] Jan 25, 2012 05:02 PM QUIT TOBACCO USE IN PAST YEAR [facility] Sep 28, 2011 10:09 AM CURRENT SMOKER 5 cigarettes a day [facility] [facility] Jun 15, 2011 02:23 PM V1-PT DECLINES REF TO TOBACCO CESS PRGM [facility] Jun 15, 2011 02:23 PM V1-PT READY TO QUIT TOBACCO USE [facility] [place] Apr 13, 2011 10:31 AM V1-PT DECLINES REF TO TOBACCO CESS [facility] Apr 13, 2011 10:31 AM V1-PT RECEIVES TOBACCO CESS MEDS OUTSIDE [facility] Apr 13, 2011 10:31 AM V1-PT THINKING ABOUT QUIT TOBACCO USE [facility] [place] [facility] Oct 16, 2010 08:52 AM QUIT TOBACCO USE IN PAST YEAR [facility] May 12, 2010 02:08 PM V1-PT DECLINES REF TO TOBACCO CESS [facility] May 12, 2010 02:08 PM V1-PT READY TO QUIT TOBACCO USE [facility] May 12, 2010 12:45 PM CURRENT SMOKER 3 cigarettes a day [facility] Encounter Notes: All associated encounter notes This section contains the clinical notes associated to the Encounter. Date/Time Encounter Note(s) Provider Source Apr 06, 2024 04:48 PM PHYSICIAN TELEPHON E ENCOUNTER NOTE: LOCAL TITLE: TELEPHONE NOTE/MD STANDARD TITLE: PHYSICIAN TELEPHONE ENCOUNTER NOTE DATE OF NOTE: APR 06, 2024@16:48 ENTRY DATE: APR 06, 2024@16:49:23 AUTHOR: CADEN FELIZ EXP COSIGNER: URGENCY: STATUS: COMPLETED She has been off of apixaban for the past 2 weeks due to waiting for dental work. She agrees to staying off of apixaban while on Paxlovid. Emergency Use Authorization COVID Treatment Note PEBBLES HARDING is a 73 yo FEMALE with recent diagnosis of COVID-19 seeking outpatient COVID therapy. PMH: Active Problem Exposure to potentially hazardous s 11/27/2023 JERSEY GAYTAN Long-term current use of anticoagul 06/27/2023 CALI [...] 08/30/2015 CADEN FELIZ Diabetes mellitus (SNOMED CT 452477 07/20/2015 JENN SRIVASTAVA Restless Leg Syndrome * (ICD-9-CM 3 07/15/2012 DIPAK JOSEPH Knee pain (SNOMED CT 9150354487) R5 03/26/2022 CADEN FELIZ Paroxysmal atrial fibrillation (SNO 08/30/2015 CADEN FELIZ Other and unspecified Sleep Apnea 7 07/21/2010 SOTOBRITNEY O Hyperlipidemia (SNOMED CT 50799038) 08/30/2015 CADEN FELIZ Chronic anxiety (SNOMED CT 13558922 12/09/2020 JACQUE MISTRY Asthma (SNOMED CT 497405071) J45.99 08/25/2015 MARIUM HUERTA Chronic depression ([place] [address] 12/09/2020 JACQUE MISTRY PTSD - Post-traumatic stress disord 12/09/2020 JACQUE MISTRY Knee Joint replacement Status (Pros 08/30/2015 AMELIA HERNANDEZ Labs: CHEM 7 TREND LAB CUMULATIVE SELECTED Collection DT Spec GLUCOSE BUN CREATIN Sodium K+/Pot CL CO2 02/28/2024 13:01 SERUM 148 H 10 0.70 140 4.7 101 30 11/15/2023 10:10 SERUM 168 H 6 L 0.66 134 L 4.3 99 L 25 08/09/2023 11:01 SERUM 217 H 10 0.67 135 4.6 99 L 24 07/26/2023 10:01 SERUM 150 H 11 0.69 140 5.2 H 104 26 06/27/2023 10:25 SERUM 0.66 Collection DT Spec eGFR 07/20/2009 10:54 SERUM >60 03/29/2009 17:26 SERUM >60 03/10/2009 09:48 SERUM >60 11/04/2008 10:58 SERUM >60 08/31/2008 17:02 SERUM >60 LAB CUMULATIVE SELECTED 2 No selection items chosen for this component. CHEM 7 Results Collection DT Spec Sodium K+/Pot CL CO2 GLUCOSE BUN eGFR 02/28/2024 13:01 SERUM 140 4.7 101 30 148 H 10 11/15/2023 10:10 SERUM 134 L 4.3 99 [...] H 9 >60 05/03/2004 14:37 SYNOV 108 SrCr (last 6 weeks): CREATININE-EGFR 02/28/24 13:01 0.70 CRCL IBW: CrCl(est): 62.0 mL/min (Creat:0.70 02/28/24) CRCL ACT: 53.84 mL/min CRCL ADJ: 62.0 mL/min (02/28/24) LIVER PANEL TREND Collection DT Spec AST ALT T BILI ALK TERRY T. PROT ALBUMIN 02/28/2024 13:01 SERUM 15 20 0.4 62 7.0 4.2 07/26/2023 10:01 SERUM 16 22 0.4 63 7.1 4.2 06/27/2023 10:25 SERUM 16 20 0.4 75 6.5 3.9 08/02/2022 08:48 SERUM 13 16 0.4 64 7.3 4.1 12/18/2021 09:09 SERUM 14 17 0.3 54 7.1 4.1 The patient must meet ALL of the criteria below to receive medication: 1. The patient has confirmed pkpo-hc-fdatleag COVID-19: Yes - (select severity below) Mild-Moderate The patient had a confirmed positive COVID-19 test on: Mar 2. Patient requires hospitalization due to severe or critical COVID-19: No 3. Administration of COVID-19 therapy will be within 5 days of symptom onset: Yes Date of symptom onset: Mar 4. The patient received at least 1 COVID19 vaccination to date: Yes 5. The patient has at least one high-risk criteria for progression to severe disease, as defined by the CDC:https://www.cdc.gov/cor on-ncov/need-ext ra-precautions/people- njzu-oszqlxs-locyuxuvyp.htm l Yes *If Yes is selected, *must check at least one high risk criteria:Age >/=65 years of age, Cardiovascular disease or hypertension, Chronic lung disease (e.g., chronic obstructive pulmonary disease, kjvjwswk-as-hgrdyz asthma, interstitial lung disease, cystic fibrosis, and pulmonary hypertension) ---Based on current product availability, logistic constraints, patient characteristics, and current NIH guidelines, the patient will receive--- Nirmatrelvir with ritonavir (Paxlovid) EUA: [email or web address] [email or web address]:b:/r/sites/AP/Formu lidia/Clinical% 20Guidance/FAQ%20SHEETS/COV ID-19%20EUA%20FAQ%20Documen ts/EUA%20Paxlovid%20VA% 20requirements%20Updated%20 [place]%152959%20update.pdf?csf =[email or web address]&e=dfSQrS The patient has recent serum creatinine documented within the past 12 months: Yes Outside lab result if applicable: The patient has severe renal impairment (eGFR < 30 mL/min) or severe hepatic impairment (Child-Briseno Class C): No If the patient has moderate renal impairment (eGFR >/= 30 to < 60 mL/min), the dose has been adjusted to nirmatrelvir 150 mg with ritonavir 100 mg twice daily for 5 days (if eGFR is >/= 60 mL/min, no dose adjustment is needed and can answer YES): Yes The patient has known hypersensitivity to therapy or its components: No The patient has concerns for potential HIV drug resistance: No Prescriber has completed a comprehensive review of the patient's medication list for other drugs that may interact and require adjustments to therapy or increased monitoring: Yes The patient is receiving any contraindicated concomitant drugs (strong CYP3A inducers or drugs highly dependent on CYP3A for clearance and for which elevated concentrations are associated with serious and/or life-threatening reactions). See EUA documentation for full list of drugs: IF YES, MUST SELECT ONE A drug-drug interaction was identified but the patient is able to safely hold the interacting medication(s) for the duration of therapy with Paxlovid The patient has a history of clinically significant hypersensitivity reactions (e.g. toxic epidermal necrolysis or Hurtado-Gerry syndrome) to nirmatrelvir, ritonavir, or any other components of the product: No Counseling provided and documented in the electronic health record as per EUA. The prescribing healthcare provider has reviewed the information contained within the Fact Sheet for Patients and Caregivers with the patient or caregiver prior to the patient receiving this agent. https://www.fda.gov/media/1 31530/download: Yes Paxlovid Dosage (must choose 1): eGFR >/= 60 mL/min Nirmatrelvir 300 mg AND ritonavir 100 mg PO twice daily x 5 days Pt was determined to be a candidate for early COVID-19 antiviral therapy as above. I discussed the risks/benefits of treatment with the patient. I informed them that this product is an unapproved drug for the treatment of COVID-19 and authorized for use under EUA, gave information on alternatives and their risks and benefits, and that the patient/caregiver has the right to refuse or accept. I discussed the Fact Sheet for Patients and parents/Caregivers prior to the patient receiving this EUA product (to be provided to patient with the medication) Pt expressed understanding, had the opportunity to ask questions, and gave verbal consent to proceed with treatment. Please place a PA-F Consult for nirmatrelvir with ritonavir (Paxlovid) prior to ordering. Drug interactions: apixaban - patient has not been taking for 2 weeks and agrees to continue to hold while on Paxlovid Trazodone - paitetn agrees to hold while on Paxlovid Diltiazem - benefit of medicaiton outweighs potential risk of increased activity of diltiazem while on Paxlovid. She will check her bp at home daily and as needed and call with any concerns. /jeana/ CADEN FELIZ M.D. PHYSICIAN Signed: 04/06/2024 17:05 CADEN FELIZ [facility] Apr 06, 2024 01:08 PM PHYSICIAN NOTE: LOCAL TITLE: MD NOTE STANDARD TITLE: PHYSICIAN NOTE DATE OF NOTE: APR 06, 2024@13:08 ENTRY DATE: APR 06, 2024@13:08:53 AUTHOR: CADEN FELIZ EXP COSIGNER: URGENCY: STATUS: COMPLETED Patient Name: PEBBLES HARDING Ms. is here for a sick visit. CC: congestion On Saturday, 04/03, she started having a lot of sneezing, had a headache, worse tinnitus, nasal congestion, post-nasal drip and dry cough. Ove the weekend, the symptosm got worse with chills and fatigue but no known fever. She tested for COVID at home 04/04. SHe states she also tested negative at [facility] ED when she went 04/02/24. She went to [employer] on 04/05 and bought pseudoephedrine. She took a dose last night and this morning which helped with post-nasal drip and head congsestion. She also felt more energy. She has been using eye drops for itcy, watery eyes without discharge. 04/02, she went to the ED becuase she was having stronger palpitations that had lasted since the night before. She also had pain in the right shoulder and became nauseous. 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 Curenlty, she has head and nasal congestion, fullness in the ears b/l, dry cough with post-nasal drip. She denies fever or chills or myalgias currenlty. She has not used any NSAIDs or acetaminophen in the past 12 hours. She denies any difficulty with breathing currenlty. Past Medical History: Active problems - Computerized Problem List is the source for the followin. Exposure to potentially hazardous substance ([facility] [id number]) Entered automatically through [employer] Problem List documentation program 2. Long-term current use of anticoagulant 3. Gastro-esophageal reflux disease with esophagitis 4. Migraine 5. Vertigo 6. NAFLD - Nonalcoholic fatty liver disease 7. Vitamin D deficiency 8. 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r mental disorder 9. Urge incontinence of urine (SNOMED CT 67632377) 10. Osteopenia 11. Sciatica 12. Obesity 13. Chronic obstructive lung disease (SNOMED CT 49553360) 14. Diabetes mellitus (SNOMED CT 19964611) 15. Restless Leg Syndrome * 16. Knee pain (SNOMED CT 6518288751) 17. Paroxysmal atrial fibrillation (SNOMED CT 969148968) 18. Other and unspecified Sleep Apnea on cpap 19. Hyperlipidemia (SNOMED CT 40790287) 20. Chronic anxiety (SNOMED CT 173316527) with panic attacks, currently well controlled 21. Asthma (SNOMED CT 066045646) 22. Chronic depression (SNOMED CT 980029650) reviewed 23. PTSD - Post-traumatic stress disorder (SNOMED CT 88337738) reviewed 24. Knee Joint replacement Status (Prosthetic or Artificial Device) Allergies: SULFUR, ZOCOR, NIACIN, VARENICLINE, MOXIFLOXACIN, MIRTAZAPINE ASPIRIN RELATED MEDICATIONS, ATORVASTATIN Current Medications: Active Outpatient Medications (including Supplies): APIXABAN 5MG TAB TAKE ONE TABLET BY MOUTH EVERY 12 HOURS ACTIVE CETIRIZINE HCL 10MG TAB TAKE ONE TABLET BY MOUTH ONCE PENDING DAILY FOR ALLERGIES CYANOCOBALAMIN 100MCG TAB TAKE ONE TABLET BY MOUTH EVERY HOLD OTHER DAY FOR VITAMIN SUPPLEMENTATION DILTIAZEM (EQV-TIAZAC) 240MG 24HR CAP TAKE ONE CAPSULE BY ACTIVE MOUTH EVERY MORNING PATIENT EXPERIENCE ADVERSE REACTION TO Shareholder InSite BRAND/PLEASE DISPENSE VALEANT/OCEANSIDE BRAND [facility] [place] [id number] FLUTICASONE PROP 50MCG 120D NASAL INHL INSTILL 2 SPRAYS PENDING INTO EACH NOSTRIL ONCE DAILY KETOTIFEN 0.025% OPH SOLN INSTILL 1 DROP INTO EACH EYE ACTIVE EVERY 12 HOURS FOR ALLERGIC CONJUNCTIVITIS (IF YOU WEAR CONTACT LENSES, WAIT 10 MINUTES BEFORE INSERTING LENSES) LORAZEPAM 0.5MG TAB TAKE ONE TABLET BY MOUTH ONCE DAILY ACTIVE NEEDED FOR ANXIETY METFORMIN HCL 1000MG TAB TAKE ONE TABLET BY MOUTH TWICE ACTIVE DAILY FOR DIABETES PSEUDOEPHEDRINE HCL 60MG TAB TAKE ONE TABLET BY MOUTH PENDING EVERY 6 HOURS NEEDED SERTRALINE(ZOLOFT) 100MG TAB*BRAND NAME* TAKE TWO TABLETS [...] ONCE ACTIVE DAILY ROS: General: no fever but +chills as above CV: no cp, no sob, no palpitations currently Lung: no VASQUEZ, no wheezing Abd: no n/v/d, no pain Psych: no SI PE: BP:136/78 (04/06/2024 12:43) Pulse:94 (04/06/2024 12:43) Resp:19 (04/06/2024 12:43) Temp:97.6 F [36.4 C] (04/06/2024 12:43) Pulse Oximetry VITAL SIGNS SELECTED Measurement DT POx (L/MIN)(%) 04/06/2024 12:43 97 Pain:5 (11/15/2023 09:11) Weight:145.4 lb [65.95 kg] (11/15/2023 09:11) Height:61 in [154.9 cm] (09/13/2023 11:34) BMI: 27.5 General: NAD, speaking full sentances with hoarse voice, frequent throat clearing and dry cough HEENT: OP with streacky erythema, no tonsillar edema or exudates, TMs wnl b/l, no cervical LAD b/l, conjunctiva and sclera clear b/l CV: S1S2 irregularly irregular, no m/r/g noted Lung: CTA b/l, no wheeze, rhonchi, or crackles, distant BS to bases b/l Ext: no edema, warm and well perfused b/l Psych: A&O x3, appropriate mood and affect A/P ALLERGIC RHINITIS symptoms most consistant with allergies with eye stymps, congestion, post-nasal drip adn dry cough without wheezing on lung exam. She had run out of her cetirizine, avoids nasal sprays due it stinging when administered, and is getting relief from sudaafed. Discussed use of nasal steroid, described how this will directly improve her sympotms and she agress to start it. - refill of cetirzine ordered - Flonase ordered for pick-up - sudafed 60mg q6hr ordered and can use when she runs out of 12hr OTC version as needed - swabbing for COVID/RSV/FLU gievn that Ms. Harding is high risk f/u prn The above plan and education was reviewed with the and they verbalized understanding. She delclines copy of medications. Medication Reconciliation: Outpatient: Has the patient been taking medications as documented in the EMLR? YES: The patient has been taking medications as documented in the EMLR. Essential Medication List for Review used to complete this medication reconciliation. INCLUDED IN THIS LIST: Alphabetical list of active outpatient prescriptions [facility]ensed from this [facility] (local) and dispensed from another [facility] or [facility] facility (remote) as well as inpatient orders (local, pending and active), local clinic medications, locally documented non-VA medications, and local prescriptions that have or been discontinued in the past 90 days. - All changes in medications, including all non-VA/Herbal/OTC medications were entered into CPRS. Changes: cetrizine renewed, Flonase and sudafed and ordered - If there were any medications the patient should no longer take, they were discontinued. - The patient/caregiver was instructed to update this list, discard old lists, and take this list to the next appointment, whether with a VA or non-VA provider. JLV Link Data on this list may not be complete. Please check JLV. Allergies/ADRs (Tool #5) FACILITY ALLERGY/ADR -------- [facility] NO KNOWN ALLERGIES [facility] ASPIRIN RELATED MEDICATIONS [facility] ATORVASTATIN [facility] MIRTAZAPINE [facility] MOXIFLOXACIN [facility]AC[facility]ULFUR [facility] VARENIC[facility] [place] [facility] DRU[facility] - SULFAMETHOXAZOLE/TRIMETHOPR IM Med Recon Manny (Tool #1) INCLUDED IN THIS LIST: Alphabetical list of active outpatient prescriptions dispensed from this MA (local) and dispensed from another MA or [facility] facility (remote) as well as inpatient orders (local pending and active), local clinic medications, locally documented non-VA medications, and local prescriptions that have or been discontinued in the past 90 days. Non-VA Meds Last Documented On: Jun 27, 2023 NOTE The display of VA prescriptions dispensed from another MA or [facility] facility (remote) is limited to active outpatient prescription entries matched to National Drug File at the originating site and may not include some items such as investigational drugs, compounds, etc. NOT INCLUDED IN THIS LIST: Medications self-entered by the patient into personal health records (i.e. [employer]) are NOT included in this list. Non-VA medications documented outside this MA, remote inpatient orders (regardless of status) and remote clinic medications are NOT included in this list. The patient and provider must always discuss medications the patient is taking, regardless of where the medication was dispensed or obtained. OUTPT ALBUTEROL 3/IPRATROP 0.5MG/3ML INHL 3ML (Status = ) INHALE 1 AMPULE IN NEBULIZER EVERY THREE HOURS NEEDED FOR BRONCHOSPASM Rx# [id number] Last Released: 10/04/23 Qty/Days Supply: 120/30 Rx Expiration Date: 01/09/24 Refills Remainin Indication: FOR BRONCHOSPASM OUTPT APIXABAN 5MG TAB (Status = Active) TAKE ONE TABLET BY MOUTH EVERY 12 HOURS Rx# [id number] Last Released: 02/24/24 Qty/Days Supply: 180/90 Rx Expiration Date: 08/09/24 Refills Remainin Indication: FOR PREVENTION OF BLOOD CLOTS OUTPT CETIRIZINE HCL 10MG TAB (Status = Discontinued) TAKE ONE TABLET BY MOUTH ONCE DAILY FOR ALLERGIES Rx# [id number] Last Released: 10/02/23 Qty/Days Supply: 90 Rx Expiration Date: 02/09/24 Refills Remainin Indication: FOR ALLERGIES OUTPT CETIRIZINE HCL 10MG TAB (Status = Active) TAKE ONE TABLET BY MOUTH ONCE DAILY FOR ALLERGIES Rx# [id number] Last Released: Qty/Days Supply: 90 Rx Expiration Date: 04/07/25 Refills Remainin Indication: FOR ALLERGIES OUTPT CYANOCOBALAMIN 100MCG TAB (Status = On Hold) TAKE ONE TABLET BY MOUTH EVERY OTHER DAY FOR VITAMIN SUPPLEMENTATION Rx# [id number] Last Released: 05/13/23 Qty/Days Supply: 45/90 Rx Expiration Date: 05/10/24 Refills Remainin Indication: FOR PREVENTION OF VITAMIN B12 DEFICIENCY OUTPT DICLOFENAC NA 1% TOP GEL (Status = ) APPLY 2 GRAMS TOPICALLY FOUR TIMES A DAY FOR OSTEOARTHRITIS - USE DOSING CARD PROVIDED IN BOX AT [facility] Rx# [id number] Last Released: 03/05/23 Qty/Days Supply: 300/30 Rx Expiration Date: 02/09/24 Refills Remainin Indication: FOR JOINT PAIN OUTPT DILTIAZEM (EQV-TIAZAC) 240MG 24HR CAP (Status = Active) TAKE ONE CAPSULE BY MOUTH EVERY MORNING PATIENT EXPERIENCE ADVERSE REACTION TO Shareholder In[employer] BRAND/PLEASE DISPENSE VALEANT/OCEANSIDE BRAND [facility] [place] [phone] Rx# [id number] Last Released: 03/13/24 Qty/Days Supply: 90 Rx Expiration Date: 12/31/24 Refills Remainin Non-VA DIPHENHYDRAMINE HCL 25MG CAP TAKE 1 CAPSULE BY MOUTH NEEDED pruritus Non-VA FISH OIL 500MG DHA/EPA CAP,ORAL TAKE BY MOUTH OUTPT FLUTICASONE PROP 50MCG 120D NASAL INHL (Status = Active) INSTILL 2 SPRAYS INTO EACH NOSTRIL ONCE DAILY FOR NASAL IRRITATION/INFLAMMATION Rx# [id number] Last Released: Supply: 09/17 Rx Expiration Date: 04/07/25 Refills Remainin Indication: FOR NASAL IRRITATION/INFLAMMATION OUTPT FORMOTEROL 5/MOMETASONE 200MCG 120D INHL (Status = ) INHALE 2 PUFFS BY MOUTH TWICE DAILY FOR CONTROLLER MEDICATION FOR ASTHMA Rx# [id number] Last Released: 12/11/23 Qty/Days Supply: 09/17 Rx Expiration Date: 01/09/24 Refills Remainin Indication: FOR CONTROLLER MEDICATION FOR ASTHMA OUTPT IBUPROFEN 800MG TAB (Status = ) TAKE ONE TABLET BY MOUTH THREE TIMES DAILY NEEDED FOR PAIN TAKE WITH FOOD Rx# [id number] Last Released: 03/06/23 Qty/Days Supply: Rx Expiration Date: 02/09/24 Refills Remainin Indication: FOR PAIN OUTPT KETOTIFEN 0.025% OPH SOLN (Status = Active) INSTILL 1 DROP INTO EACH EYE EVERY 12 HOURS FOR ALLERGIC CONJUNCTIVITIS (IF YOU WEAR CONTACT LENSES, WAIT 10 MINUTES BEFORE INSERTING LENSES) Rx# [id number] Last Released: 02/24/24 Qty/Days Supply: Rx Expiration Date: 04/15/24 Refills Remainin Indication: FOR ALLERGIC CONJUNCTIVITIS OUTPT LORAZEPAM 0.5MG TAB (Status = Active) TAKE ONE TABLET BY MOUTH ONCE DAILY NEEDED FOR ANXIETY Rx# [id number] Last Released: 02/24/24 Qty/Days Supply: Rx Expiration Date: 06/13/24 Refills Remainin Indication: ANXIETY OUTPT METFORMIN HCL 1000MG TAB (Status = Active) TAKE ONE TABLET BY MOUTH TWICE DAILY FOR DIABETES Rx# [id number] Last Released: 02/24/24 Qty/Days Supply: Rx Expiration Date: 05/10/24 Refills Remainin Indication: FOR TYPE 2 DIABETES MELLITUS Non-VA OTHER CAP/TAB TAKE BY MOUTH Garlic and Reishi Non-VA OTHER CAP/TAB TAKE BY MOUTH Apple Cider Vinegar Non-VA OTHER CAP/TAB TAKE BY MOUTH Nutritional Yeast Non-VA OTHER CAP/TAB TAKE BY MOUTH Organic Cruciferous Non-VA OTHER CAP/TAB TAKE MAGNESIUM 1200MG BY MOUTH ONCE DAILY OUTPT PSEUDOEPHEDRINE HCL 60MG TAB (Status = Active) TAKE ONE TABLET BY MOUTH EVERY 6 HOURS NEEDED FOR STUFFY NOSE Rx# [id number] Last Released: Supply: 15/03 Rx Expiration Date: 05/06/24 Refills Remainin Indication: FOR STUFFY NOSE OUTPT SERTRALINE(ZOLOFT) 100MG TAB*BRAND NAME* (Status = Active) TAKE TWO TABLETS BY MOUTH ONCE DAILY ANXIETY Rx# [id number] Last Released: 03/13/24 Qty/Days Supply: 180 Rx Expiration Date: 12/18/24 Refills Remainin Indication: ANXIETY OUTPT TRAZODONE HCL 100MG TAB (Status = Active) TAKE ONE-HALF TABLET BY MOUTH AT BEDTIME NEEDED FOR SLEEP Rx# [id number] Last Released: 03/02/24 Qty/Days Supply: 45 Rx Expiration Date: 12/18/24 Refills Remainin Indication: INSOMNIA Non-VA TURMERIC CAP/TAB TAKE BY MOUTH Non-VA VITAMIN E CAP,ORAL TAKE BY MOUTH Non-VA ZINC 50MG (FROM SULFATE) CAP TAKE 1 CAPSULE BY MOUTH ONCE DAILY SUPPLIES /jeana/ CADEN FELIZ M.D. PHYSICIAN Signed: 04/06/2024 13:22 CADEN FELIZ [facility] Apr 06, 2024 12:45 PM PREVENTIVE MEDICIN E NURSING NOTE: LOCAL TITLE: CLINICAL REMINDERS/NURSING STANDARD TITLE: PREVENTIVE MEDICINE NURSING NOTE DATE OF NOTE: APR 06, 2024@12:45 ENTRY DATE: APR 06, 2024@12:45:58 AUTHOR: MARICARMEN DE LA GARZA COSIGNER: URGENCY: STATUS: COMPLETED Homelessness/Food Insecurity Screen: In the past 2 months, have you been living in stable housing that you own, rent, or stay in as part of a household? Yes - Living in stable housing. Are you worried or concerned that in the next 2 months you may NOT have stable housing that you own, rent, or stay in as part of a household? No - Not worried about housing near future The reports the following: Within the past 12 months, you worried whether your food would run out before you got money to buy more. Never true Within the past 12 months, the food you bought just didn't last and you didn't have money to get more. Never true Tobacco Use Screening: The patient is a former tobacco user. The patient quit fifteen or more years ago. Depression Screening: Perform PHQ-2 A PHQ-2 screen was performed. The score was 0 which is a negative screen for depression. Over the past two weeks, how often have you been bothered by the following problems? 1. Little interest or pleasure in doing things Not at all 2. Feeling down, depressed, or hopeless Not at all /jeana/ Maricarmen De La Garza RN Primary Care Staff Nurse Signed: 04/06/2024 12:46 MARICARMEN DE LA GARZA [facility]
--- OUTSIDE RECORDS SUMMARY | 2024-08-04 17:19 | XMS_ITS | Encounter Summary ---
Author Name [facility] [place] [facility] [place] [facility] [place] [facility] [place] Address [address] [place] [address] Care Team Providers Care Mainspring Former [place] Name Role Phone CADEN FELIZ Primary Care [...] PLAN I Aug 19, 2019 PLAN I [id number] [phone] MEEK,SABINE ICEL PATIENT [employer] OPTIONS MEDICARE SUPPLEMEN MARCIA PLANM Y Aug 19, 2019 PLANMY [id number] MEEK,GR ICEL PATIENT [employer] OPTIONS MEDICARE SUPPLEMEN MARCIA AARP MEDIC ARE SUPPL Aug 19, 2019 PLAN MY [id number] [phone] MEEK,SABINE ICEL PATIENT AARP INS MEDICARE SUPPLEMEN MARCIA PLANM Y Aug 19, 2019 PLANMY [id number] MEEK,GR ICEL PATIENT AARP MED SUPP MEDICARE SUPPLEMEN MARCIA Jul 19, 2010 PLANMY [id number] MEEK,GR ICEL PATIENT MEDICARE (WNR) MEDICARE () PART B Aug 19, 2008 PART B [id number] MEEK,GR ICEL PATIENT MEDICARE (WNR) MEDICARE () PART B Aug 19, 2008 PART B [id number] [phone] MEEK,GR ICEL PATIENT MEDICARE (WNR) MEDICARE () PART B Aug 19, 2008 PART B [id number] [phone] MEEK,GR ICEL PATIENT MEDICARE (WNR) MEDICARE () PART B Aug 19, 2008 PART B [id number] MEEK,GR ICEL PATIENT MEDICARE (WNR) MEDICARE () PART B Aug 19, 2008 PART B [id number] [phone] MEEK,GR ICEL PATIENT MEDICARE (WNR) MEDICARE () PART B Aug 19, 2008 PART B [id number] [phone] MEEK,GR ICEL PATIENT MEDICARE (WNR) MEDICARE () PART B Aug 19, 2008 PART B [id number] MEEK,GR ICEL PATIENT MEDICARE (WNR) MEDICARE () PART A December 18, 2003 PART A [id number] [phone] MEEK,GR ICEL PATIENT MEDICARE (WNR) MEDICARE () PART A December 18, 2003 PART A [id number] [phone] MEEK,GR ICEL PATIENT MEDICARE (WNR) MEDICARE () PART A December 18, 2003 PART A [id number] MEEK,GR ICEL PATIENT MEDICARE (WNR) MEDICARE () PART A December 18, 2003 PART A [id number] MEEK,GR ICEL PATIENT MEDICARE (WNR) MEDICARE () PART A December 18, 2003 PART A [id number] MEEK,GR ICEL PATIENT MEDICARE (WNR) MEDICARE () PART A December 18, 2003 PART A [id number] SABINE MEEK PATIENT MEDICARE (WNR) MEDICARE (M) PART A December 18, 2003 PART A [id number] SABINE MEEK PATIENT Selected Encounter This section includes the information on record at [place] for the Encounter. Date/Time Encounter Type Encounter Description Reason Pro vider Source Apr 06, 2024 01:00 PM Outpatient Encounter [facility] Encounter Template Text not used by ME Plan of Treatment: Future Appointments (+ 6 months) and Future Tests (+/- 45 days) The Plan of Treatment section includes future care activities for the [facility]. This section includes future appointments [...] AMBULATORY - PS[facility]CHIATRY [facility] [place] [facility] May 08, 2024 08:00 AM AMBULATORY - MEDICINE [facility] [place] [facility] May 11, 2024 01:00 PM AMBULATORY - PSYCHIATRY [facility] [place] [facility] May 18, 2024 01:00 PM AMBULATORY - PSYCHIATRY [facility] [place] [facility] May 20, 2024 09:30 AM AMBULATORY - MEDICINE [facility] [place] [facility] May 25, 2024 01:00 PM AMBULATORY - PSYCHIATRY [facility] [place] [facility] Jun 08, 2024 09:30 AM AMBULATORY - PSYCHIATRY [facility] [place] [facility] Jun 08, 2024 01:00 PM AMBULATORY - PSYCHIATRY [facility] [place] [facility] Jun 15, 2024 01:00 PM AMBULATORY - PSYCHIATRY [facility] [place] [facility] Jun 19, 2024 09:00 AM AMBULATORY - PSYCHIATRY [facility] [place] [facility] Jun 27, 2024 09:30 AM AMBULATORY - MEDICINE [facility] [place] [facility] Jul 06, 2024 01:00 PM AMBULATORY - PSYCHIATRY [facility] [place] [facility] Jul 13, 2024 11:30 AM AMBULATORY - MEDICINE [facility] [place] [facility] Jul 13, 2024 01:00 PM AMBULATORY - PSYCHIATRY [facility] [place] [facility] Jul 20, 2024 09:30 AM AMBULATORY - PSYCHIATRY [facility] [place] [facility] Jul 21, 2024 09:30 AM AMBULATORY - MEDICINE [facility] [place] [facility] Jul 22, 2024 09:00 AM AMBULATORY - PSYCHIATRY [facility] [place] [facility] Jul 27, 2024 01:00 PM AMBULATORY - PSYCHIATRY [facility] [place] [facility] Aug 07, 2024 08:00 AM AMBULATORY - MEDICINE [facility] [place] [facility] Aug 07, 2024 09:45 AM [facility] Active, Pending, and Scheduled Orders This section includes a listing of several types of active, pending, and scheduled orders, including clinic medications orders, diagnostic test orders, procedure orders and consult orders; where the start date of the order is 45 days before the date of the Encounter or 45 days after the date of theEncounter. The data comes from all [place] treatment facilities. Test Date/Time Test Type Test Details Facility Name Feb 28, 2024 12:49 PM Consult Order COMMUNITY CARE-CARDIOLOGY Cons [place] Professor's Choice [facility] Apr 21, 2024 10:05 AM Consult Order COMMUNITY CARE-MAMMOGRAPHY FEMALE SCREEN Cons [place] Professor's Choice [facility] Lab Results: +/- 30 days of [...] Range Comment Apr 06, 2024 01:[address] COVID-19 FLU/RSV DIAGNOSTIC PANEL Specimen Type: NASOPHARYNX Comment: This test is authorized for emergency use only. False negative results may occur if virus is present at levels below the analytical limit of detection.Negati ve results do not preclude SARS-CoV-2, influenza or RSV infection and should not be used as the sole basis for treatment or other patient management decisions.Mary siddiqi FLUVID: HCPs: https://www.fda. gov/media/226214 /download. Patients: https://www.fda. gov/media/192321 /download NOTIFIED DR FELIZ 04/06/24@1552 BY EMAILED TO INFECTION CONTROL FAXED TO [facility] Ordering Provider: CADEN FELIZ Report Released Date/Time: Apr 06, 2024 12:55 PM Reporting Lab: [address] [address] Performing Lab: [address] [address] COVID-19 PCR (FLUVID) POSITIVE HH NEGATIVE FLU A PCR (FLUVID) NEGATIVE FLU B PCR (FLUVID) NEGATIVE RSV PCR (FLUVID) NEGATIVE Apr 06, 2024 01:21 PM [facility] SARS-COV-2 VARIANT SEQ PNL(WHV) Specimen Type: NASOPHARYNX Comment: -Pangolin version 4.3.1 (data version ) -Nextclade version 3.8.2 (data version 2024-03-04) https://www.cdc. gov/coronavirus/ 2019-ncov/cases- updates/variant- surveillance/jv iant-info.html The vpod.tv SARS CoV 2 [employer] Research Assay-GX is a next-generation sequencing (NGS) assay that determines the complete genome sequence of the SARS-CoV-2 virus. The assay contains variant-tolerant primers to broaden and improve the coverage for variant detection and increase the sensitivity of the panel to enable detection from lower viral titer samples. The assay is run on the Quisic Sequencer, which performs automated library preparation, sequencing, analysis, and reporting. The sequence analysis includes determination of viral phylogenetic lineage by comparison to the reference strain Wu[place]-Hu-1, GenBank: [id number]. Sequence determination may not be possible owing to inadequate quantity or quality of the viral RNA in the original specimen. Sequencing will not be attempted if the SARS-CoV-2 PCR assay result has a Ct > 30. Note that phylogenetic lineage assignment in some cases may pattern changer and repairer time for the same sequence as the virus continues to evolve and new sub lineages are created. The reported result will reflect the lineage assignment only at the time of initial sequence determination. This test was developed, and its performance characteristics determined by the [facility], which is certified under the Clinical Laboratory Improvement Amendments (CLIA) as qualified to perform high complexity clinical laboratory testing. This test is validated for clinical use at [facility] and should not be regarded as investigational or for research. The FDA does not require this test to go through premarket FDA review, and therefore it has not been cleared or approved by the FDA. This report was reviewed and approved by the on-service pathologist. Ordering Provider: CADEN FELIZ Report Released Date/Time: Apr 27, 2024 11:46 AM Reporting Lab: [facility] [address] [address] Performing Lab: [facility] [address] [facility] [id number] SARS-COV-2 Lineage(WHV) MC.1 SARS-COV-2 Clade(WHV) 24C (Omicron) Vital Signs: All taken on the encounter date This section contains inpatient and outpatient Vital Signs collected on the date of the Encounter. Date/Time Temperature Pulse Blood Pressure Respiratory Rate SP02 Pain Height Weight Body Mass Index Source Apr 06, 2024 12:43 PM 97.6 94 136/78 19 97 [facility] Social History: Smoking Status (Most current) [...] 06, 2024 12:30 PM VA-TOBACCO FORMER USER [facility] Tobacco Use History This section includes a history of the smoking, or tobacco-related health factors, that were collected on or before the date of the Encounter. The data comes from the [place] facility where the Encounter took place. Date/Time Smoking Status/Tobac co Use Comment Facility Apr 06, 2024 12:30 PM VA-TOBACCO QUIT 15 YRS OR MORE [facility] [place] [facility] Feb 08, 2023 10:00 AM VA-TOBACCO FORMER USER [facility] [place] [facility] Feb 08, 2023 10:00 AM VA-TOBACCO QUIT 15 YRS OR MORE [facility] [place] [facility] Mar 06, 2022 02:30 PM VA-TOBACCO FORMER USER [facility] [place] [facility] Mar 06, 2022 02:30 PM VA-TOBACCO QUIT 15 YRS OR MORE [facility] [place] [facility] Apr 04, 2021 10:28 AM VA-TOBACCO NEVER USED [facility] [place] [facility] May 03, 2020 02:00 PM VA-TOBACCO NEVER USED [facility] [place] [facility] Feb 25, 2019 08:14 AM VA-TOBACCO FORMER USER [facility] [place] [facility] Feb 25, 2019 08:14 AM VA-TOBACCO QUIT 5 TO < 15 YRS [facility] [place] [facility] Apr 04, 2018 10:41 AM QUIT TOBACCO USE 1-7 YEARS AGO [facility] [place] [facility] Oct 28, 2017 10:18 AM QUIT TOBACCO USE 1-7 YEARS AGO [facility] [place] [facility] Jan 22, 2017 01:08 PM QUIT TOBACCO USE 1-7 YEARS AGO [facility] [place] [facility] Jul 18, 2016 01:34 PM QUIT TOBACCO USE 1-7 YEARS AGO [facility] [place] [facility] January 10, 2016 10:32 AM QUIT TOBACCO USE 1-7 YEARS AGO [facility] [place] [facility] Oct 13, 2015 11:05 AM QUIT TOBACCO USE 1-7 YEARS AGO [facility] [place] [facility] Oct 19, 2014 01:53 PM QUIT TOBACCO USE > 7 YEARS AGO [facility] [place] [facility] January 02, 2014 01:30 AM QUIT TOBACCO USE IN PAST YEAR [facility] [place] [facility] Jun 18, 2013 09:00 AM CURRENT SMOKER 6 cigarettes qd [facility] [place] [facility] Jun 18, 2013 09:00 AM V1-PT DECLINES TOBACCO CESSATION MEDS [facility] Jun 18, 2013 09:00 AM V1-PT NOT INTERESTED IN QUIT TOBACCO USE [facility] December 24, 2012 10:51 AM V1-PT DECLINES REF TO TOBACCO CESS PRGM [facility] [place] [facility] December 24, 2012 10:51 AM V1-PT DECLINES TOBACCO CESSATION MEDS [facility] [place] December 24, 2012 10:51 AM V1-PT THINKING ABOUT QUIT TOBACCO USE [facility] Jul 15, 2012 10:19 AM QUIT TOBACCO USE IN PAST [facility]AR [facility] Jan 25, 2012 05:02 PM QUIT TOBACCO USE IN PAST YEAR [facility] Sep 28, 2011 10:09 AM CURRENT SMOKER 5 cigarettes a day [facility] Jun 15, 2011 02:23 PM V1-PT DECLINES REF TO TOBACCO CESS PRGM [facility] Jun 15, 2011 02:23 PM V1-PT READY TO QUIT TOBACCO [facility] Apr 13, 2011 10:31 AM V1-PT DECLINES REF TO TOBACCO CESS PRGM [facility] Apr 13, 2011 10:31 AM V1-PT RECEIVES TOBACCO CESS MEDS [facility]IDE [facility] Apr 13, 2011 10:31 AM V1-PT THINKING ABOUT QUIT TOBACCO USE [facility] Oct 16, 2010 08:52 AM QUIT TOBACCO USE IN PAST YEAR [facility] May 12, 2010 02:08 PM V1-PT DECLINES REF TO TOBACCO CESS PRGM [facility] May 12, 2010 02:08 PM V1-PT READY TO QUIT TOBACCO USE [facility] May 12, 2010 12:45 PM CURRENT SMOKER 3 cigarettes a day [facility] Encounter Notes: All associated encounter notes This section contains the clinical notes associated to the Encounter. 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 Expressed understanding and appreciation for the notice. Confirmed she plans to attend next week. No evidence of imminent risk. /es/ Debbie Gibbs, PhD Clinical Psychologist, [facility] Signed: 04/06/2024 11:03 DEBBIE GIBBS [facility]
--- OUTSIDE RECORDS SUMMARY | 2024-08-04 17:19 | XMS_ITS | Encounter Summary ---
Author Name [place] Address [address] [place] [address] Care Team Providers Care Independent Agent Music Education Name Role Phone CADEN FELIZ Primary Care [...] PLAN I Aug 19, 2019 PLAN I [id number] MEEK,GR ICEL PATIENT [employer] OPTIONS MEDICARE SUPPLEMEN MARCIA PLANM Y Aug 19, 2019 PLAN [id number] MEEK,GR ICEL PATIENT [employer] OPTIONS MEDICARE SUPPLEMEN MARCIA AARP MEDIC ARE SUPPL Aug 19, 2019 PLAN [id number] [phone] MEEK,GR ICEL PATIENT A[employer] INS MEDICARE SUPPLEMEN MARCIA PLANM Y Aug 19, 2019 PLAN [id number] [phone] MEEK,GR ICEL PATIENT AARP MED SUPP MEDICARE SUPPLEMEN MARCIA Jul 19, 2010 PLAN [id number] MEEK,GR ICEL PATIENT MEDICARE (WNR) MEDICARE (M) PART B Aug 19, 2008 PART B [id number] [phone] MEEK,GR ICEL PATIENT MEDICARE (WNR) MEDICARE () PART B Aug 19, 2008 PART B [id number] [phone] MEEK,GR ICEL PATIENT MEDICARE (WNR) MEDICARE () PART B Aug 19, 2008 PART B [id number] MEEK,GR ICEL PATIENT MEDICARE (WNR) MEDICARE () PART B Aug 19, 2008 PART B [id number] MEEK,GR ICEL PATIENT MEDICARE (WNR) MEDICARE () PART B Aug 19, 2008 PART B [id number] MEEK,GR ICEL PATIENT MEDICARE (WNR) MEDICARE () PART B Aug 19, 2008 PART B [id number] [phone] MEEK,GR ICEL PATIENT MEDICARE (WNR) MEDICARE () PART B Aug 19, 2008 PART B [id number] MEEK,GR ICEL PATIENT MEDICARE (WNR) MEDICARE () PART A December 18, 2003 PART A [id number] MEEK,GR ICEL PATIENT MEDICARE (WNR) MEDICARE () PART A December 18, 2003 PART A [id number] MEEK,GR ICEL PATIENT MEDICARE (WNR) MEDICARE () PART A December 18, 2003 PART A [id number] MEEK,GR ICEL PATIENT MEDICARE (WNR) MEDICARE () PART A December 18, 2003 PART A [id number] MEEK,GR ICEL PATIENT MEDICARE (WNR) MEDICARE () PART A December 18, 2003 PART A [id number] MEEK,GR ICEL PATIENT MEDICARE (WNR) MEDICARE () PART A December 18, 2003 PART A [id number] MEEK,GR ICEL PATIENT MEDICARE (WNR) MEDICARE (M) PART A December 18, 2003 PART A [id number] SABINE MEEK ICEJacky PATIENT Selected Encounter This section includes the information [facility] at [facility] for [facility] En[facility]. Date/Time Encounter Type Encounter Description Reason Pro vider Source IHE Encounter Template Text not used by VA
--- OUTSIDE RECORDS SUMMARY | 2024-08-04 17:20 | XMS_ITS | Encounter Summary ---
Author Name [facility] [place] [facility] [place] Address [address] [place] [address] Care Team Providers Care Route Delivery Supervisor Name Role Phone CADEN FELIZ Primary [...] PLAN I Aug 19, 2019 PLAN I [id number] [phone] MEEK,SABINE ICEL PATIENT [employer] OPT[employer] MEDICARE SUPPLEMEN MARCIA PLANM Y Aug 19, 2019 PLANMY [id number] [phone] MEEK,GR ICEL PATIENT [employer] OPTIONS MEDICARE SUPPLEMEN MARCIA AARP MEDIC ARE SUPPL Aug 19, 2019 PLAN MY [id number] [phone] MEEK,SABINE ICEL PATIENT [employer] INS MEDICARE SUPPLEMEN MARCIA PLANM Y Aug 19, 2019 PLANMY [id number] [phone] MEEK,GR ICEL PATIENT AARP MED SUPP MEDICARE SUPPLEMEN MARCIA Jul 19, 2010 PLANMY [id number] [phone] MEEK,GR ICEL PATIENT MEDICARE (WNR) MEDICARE () PART B Aug 19, 2008 PART B [id number] [phone] MEEK,GR ICEL PATIENT MEDICARE (WNR) MEDICARE () PART B Aug 19, 2008 PART B [id number] MEEK,GR ICEL PATIENT MEDICARE (WNR) MEDICARE () PART B Aug 19, 2008 PART B [id number] MEEK,GR ICEL PATIENT MEDICARE (WNR) MEDICARE () PART B Aug 19, 2008 PART B [id number] MEEK,GR ICEL PATIENT MEDICARE (WNR) MEDICARE () PART B Aug 19, 2008 PART B [id number] [phone] MEEK,GR ICEL PATIENT MEDICARE (WNR) MEDICARE () PART B Aug 19, 2008 PART B [id number] MEEK,GR ICEL PATIENT MEDICARE (WNR) MEDICARE () PART B Aug 19, 2008 PART B [id number] MEEK,GR ICEL PATIENT MEDICARE (WNR) MEDICARE () PART A December 18, 2003 PART A [id number] [phone] MEEK,GR ICEL PATIENT MEDICARE (WNR) MEDICARE () PART A December 18, 2003 PART A [id number] MEEK,GR ICEL PATIENT MEDICARE (WNR) MEDICARE () PART A December 18, 2003 PART A [id number] [phone] MEEK,GR ICEL PATIENT MEDICARE (WNR) MEDICARE () PART A December 18, 2003 PART A [id number] [phone] MEEK,GR ICEL PATIENT MEDICARE (WNR) MEDICARE () PART A December 18, 2003 PART A [id number] MEEK,GR ICEL PATIENT MEDICARE (WNR) MEDICARE () PART A December 18, 2003 PART A [id number] SABINE MEEK ICEL PATIENT MEDICARE (WNR) MEDICARE (M) PART A December 18, 2003 PART A [id number] SABINE MEEK ICEL PATIENT Selected Encounter This section includes the information on record at [place] for the Encounter. Date/Time Encounter Type Encounter Description Reason Provider Source Apr 07, 2024 10:27 AM QNHP OL DIG ASSMT&MGMT 5-10 CLINICAL PHARMACY ICD-10-CM U07.1 COVID-19 PHILLIP FARAH [facility] Encounter Template Text not used by [place] Assessments - Encounter Diagnoses This section includes the primary and secondary diagnoses documented for the Encounter. Date/Time Primary/Secondary Diagnosis Diagnosis Name Provider Source Apr 07, 2024 10:34 AM PRIMARY COVID-19 MARCI FARAH [facility] [place] [facility] Plan of Treatment: Future Appointments (+ 6 months) and Future Tests (+/- 45 days) The Plan of Treatment section includes future care activities for the patient [facility] [place] [facility] This section includes future appointments and future [...] 23, 2024 08:40 AM AMBULATORY - PSYCHIATRY [place] [facility] [place] [facility] May 08, 2024 08:00 AM AMBULATORY - MEDICINE [place] C [facility] [place] [facility] May 11, 2024 01:00 PM AMBULATORY - PSYCHIATRY [facility] [place] [facility] May 18, 2024 01:00 PM AMBULATORY - PSYCHIATRY [facility] [place] [facility] May 20, 2024 09:30 AM AMBULATORY - MEDICINE [place] [facility] [place] [facility] May 25, 2024 01:00 PM AMBULATORY - PSYCHIATRY [facility] [place] [facility] Jun 08, 2024 09:30 AM AMBULATORY - PSYCHIATRY [facility] [place] [facility] Jun 08, 2024 01:00 PM AMBULATORY - PSYCHIATRY [facility] [place] [facility] Jun 15, 2024 01:00 PM AMBULATORY - PSYCHIATRY [facility] [place] [facility] Jun 19, 2024 09:00 AM AMBULATORY - PSYCHIATRY [facility] [place] [facility] Jun 27, 2024 09:30 AM AMBULATORY - MEDICINE [facility] [place] [facility] Jul 06, 2024 01:00 PM AMBULATORY - PSYCHIATRY [facility] [place] [facility] Jul 13, 2024 11:30 AM AMBULATORY - MEDICINE [facility] [place] [facility] Jul 13, 2024 01:00 PM AMBULATORY - PSYCHIATRY [facility] [place] [facility] Jul 20, 2024 09:30 AM AMBULATORY - PSYCHIATRY [facility] [place] [facility] Jul 21, 2024 09:30 AM AMBULATORY - MEDICINE [facility] [place] [facility] Jul 22, 2024 09:00 AM AMBULATORY - PSYCHIATRY [facility] [place] [facility] Jul 27, 2024 01:00 PM AMBULATORY - PSYCHIATRY [facility] [place] [facility] Aug 07, 2024 08:00 AM AMBULATORY - MEDICINE [facility] [place] [facility] Aug 07, 2024 09:45 AM AMBULATORY - NONE [facility] [place] [facility] Active, Pending, and Scheduled Orders This [...] 12:49 PM Consult Order COMMUNITY CARE-CARDIOLOGY Cons Table And Desk Finisher's Choice [facility] [place] [facility] Apr 21, 2024 10:05 AM Consult Order COMMUNITY CARE-MAMMOGRAPHY FEMALE SCREEN Cons Table And Desk Finisher's Choice [place] [facility] [place] [facility] Lab Results: +/- 30 days of [...] Range Comment Apr 06, 2024 01:21 PM [facility] COVID-19 FLU/RSV DIAGNOSTIC PANEL Specimen Type: [...] patient management decisions.Cephei d FLUVID: HCPs: https://www.fda. gov/media/201915 /download. Patients: https://www.fda. gov/media/508298 /download NOTIFIED DR FELIZ 04/06/24@6892 BY EMAILED TO INFECTION CONTROL FAXED TO [facility] Ordering Provider: CADEN FEILZ Report Released Date/Time: Apr 06, 2024 12:55 PM Reporting Lab: [address] [id number] Performing Lab: [address] [address] COVID-19 PCR (FLUVID) POSITIVE HH NEGATIVE FLU A PCR (FLUVID) NEGATIVE FLU B PCR (FLUVID) NEGATIVE RSV PCR (FLUVID) NEGATIVE Apr 06, 2024 01:21 PM [facility] SARS-COV-2 VARIANT SEQ PNL(WHV) Specimen Type: NASOPHARYNX Comment: -Pangolin version 4.3.1 (data version ) -Nextclade version 3.8.2 (data version 2024-03-04) https://www.cdc. gov/coronavirus/ 2019-ncov/cases- updates/variant- surveillance/jv iant-info.html The VoxFeediSeq SARS CoV 2 DimensionU (formerly Tabula Digita) Research Assay-GX is a next-generation sequencing (NGS) assay that determines the complete genome sequence of the SARS-CoV-2 virus. The assay contains variant-tolerant primers to broaden and improve the coverage for variant detection and increase the sensitivity of the panel to enable detection from lower viral titer samples. The assay is run on the [employer] Sequencer, which performs automated library preparation, sequencing, analysis, and reporting. The sequence analysis includes determination of viral phylogenetic lineage by comparison to the reference strain Wu[place]-Hu-1, GenBank: [id number]. Sequence determination may not be possible owing to inadequate quantity or quality of the viral RNA in the original specimen. Sequencing will not be attempted if the SARS-CoV-2 PCR assay result has a Ct > 30. Note that phylogenetic lineage assignment in some cases may change management specialist time for the same sequence as the virus continues to evolve and new sub lineages are created. The reported result will reflect the lineage assignment only at the time of initial sequence determination. This test was developed, and its performance characteristics determined by the [facility], which is certified under the Clinical Laboratory Improvement Amendments (CLIA) as qualified to perform high complexity clinical laboratory testing. This test is validated for clinical use at [facility] and should not be regarded as investigational or for research. The FDA does not require this test to go through premarket FDA review, and therefore it has not been cleared or approved by the FDA. This report was reviewed and approved by the on-service pathologist. Ordering Provider: CADEN FELIZ Report Released Date/Time: Apr 27, 2024 11:46 AM Reporting Lab: [address] [address] Performing Lab: [address] [address] SARS-COV-2 Lineage(WHV) MC.1 SARS-COV-2 Clade(WHV) 24C (Omicron) [...] 06, 2024 12:30 PM VA-TOBACCO FORMER USER [facility] Tobacco Use History This section includes a history of the smoking, or tobacco-related health factors, that were collected on or before the date of the Encounter. The data comes from the [place] facility where the Encounter took place. Date/Time Smoking Status/Tobac co Use Comment Facility Apr 06, 2024 12:30 PM VA-TOBACCO QUIT 15 YRS OR MORE [facility] [place] [place] [facility] Feb 08, 2023 10:00 AM VA-TOBACCO FORMER USER [facility] [place] [facility] Feb 08, 2023 10:00 AM VA-TOBACCO QUIT 15 YRS OR MORE [facility] [place] [facility] Mar 06, 2022 02:30 PM VA-TOBACCO FORMER USER [facility] [place] [place] [facility] Mar 06, 2022 02:30 PM VA-TOBACCO QUIT 15 YRS OR MORE [facility] [place] [place] [facility] Apr 04, 2021 10:28 AM VA-TOBACCO NEVER USED [facility] [place] [facility] May 03, 2020 02:00 PM VA-TOBACCO NEVER USED [facility] [place] [facility] Feb 25, 2019 08:14 AM VA-TOBACCO FORMER USER [facility] [place] [facility] Feb 25, 2019 08:14 AM VA-TOBACCO QUIT 5 TO < 15 YRS [facility] [place] [facility] Apr 04, 2018 10:41 AM QUIT TOBACCO USE 1-7 YEARS AGO [facility] [place] [facility] Oct 28, 2017 10:18 AM QUIT TOBACCO USE 1-7 YEARS AGO [facility] [place] [place] [facility] Jan 22, 2017 01:08 PM QUIT TOBACCO USE 1-7 YEARS AGO [facility] [place] [place] [facility] Jul 18, 2016 01:34 PM QUIT TOBACCO USE 1-7 YEARS AGO [facility] [place] [place] [facility] January 10, 2016 10:32 AM QUIT TOBACCO USE 1-7 YEARS AGO [facility] [place] [place] [facility] Oct 13, 2015 11:05 AM QUIT TOBACCO USE 1-7 YEARS AGO [facility] [place] [place] [facility] Oct 19, 2014 01:53 PM QUIT TOBACCO USE > 7 YEARS AGO [facility] [place] [facility] January 02, 2014 01:30 AM QUIT TOBACCO USE IN PAST YEAR [facility] [place] [place] [facility] Jun 18, 2013 09:00 AM CURRENT SMOKER 6 cigarettes qd [place] [facility] [place] [facility] Jun 18, 2013 09:00 AM V1-PT DECLINES TOBACCO CESSATION [facility] [place] [place] [facility] Jun 18, 2013 09:00 AM V1-PT NOT INTERESTED IN QUIT TOBACCO USE [place] [place] [facility] December 24, 2012 10:51 AM V1-PT DECLINES REF TO TOBACCO CESS PRGM [facility] [place] [place] [facility] December 24, 2012 10:51 AM V1-PT DECLINES TOBACCO CESSATION MEDS [facility] [place] [facility] December 24, 2012 10:51 AM V1-PT THINKING ABOUT QUIT TOBACCO USE [facility] [place] [facility] Jul 15, 2012 10:19 AM QUIT TOBACCO USE IN PAST YEAR [facility] [place] [facility] Jan 25, 2012 05:02 PM QUIT TOBACCO USE [facility]ST [facility]AR [facility] Sep 28, 2011 10:09 AM CURRENT SMOKER 5 cigarettes a day [facility] [place] [facility] Jun 15, 2011 02:23 PM V1-PT DECLINES REF TO TOBACCO CESS [facility] Jun 15, 2011 02:23 PM V1-PT READY TO QUIT TOBACCO USE [facility] [place] [facility] Apr 13, 2011 10:31 AM V1-PT DECLINES REF TO TOBACCO CESS [facility] Apr 13, 2011 10:31 AM V1-PT RECEIVES TOBACCO CESS MEDS [facility]IDE [facility] Apr 13, 2011 10:31 AM V1-PT THINKING ABOUT QUIT TOBACCO USE [facility] [place] [facility] Oct 16, 2010 08:52 AM QUIT TOBACCO USE IN PAST YEAR [facility] [place] [facility] May 12, 2010 02:08 PM V1-PT DECLINES REF TO TOBACCO CESS PR[facility] [place] [place] [facility] May 12, 2010 02:08 PM V1-PT READY TO QUIT TOBACCO USE [facility] May 12, 2010 12:45 PM CURRENT SMOKER 3 cigarettes a day [facility] Encounter Notes: All associated encounter notes This section contains the clinical notes associated to the Encounter. Date/Time Encounter Note(s) Provider Source Apr 07, 2024 10:27 AM MEDICATION MGT CON SULT: LOCAL TITLE: CONSULT REPORT/NON FORMULARY PADR STANDARD TITLE: MEDICATION MGT CONSULT DATE OF NOTE: APR 07, 2024@10:27 ENTRY DATE: APR 07, 2024@10:27:06 AUTHOR: COLT FARAH EXP COSIGNER: URGENCY: STATUS: COMPLETED The medical record has been reviewed with regard to this restricted drug request. Medication requested: GOV-PAXLOVID [id number] TAB PKT 3 Medication indication: COVID-19 Medical history relevant to this request: Pt tested positive for COVID-19 on 04/06/24 with sx starting on 04/03/24. Pt meets criteria for EUA medication per 04/06/24 note. eGFR >60, LFTs wnl. DDIs already addressed by provider: apixaban - patient has not been taking for 2 weeks and agrees to continue to hold while on Paxlovid Trazodone - patient agrees to hold while on Paxlovid Diltiazem - benefit of medication outweighs potential risk of increased activity of diltiazem while on Paxlovid. She will check her BP at home daily and as needed and call with any concerns. The request is approved - No formulary-preferred alternative /jeana/ Colt Farah PharmD Clinical Roll Up Helper Signed: 04/07/2024 10:35 COLT FARAH CN[facility]L [facility]
--- OUTSIDE RECORDS SUMMARY | 2024-08-04 17:20 | XMS_ITS ---
Author Name [facility] [place] [facility] [place] Address [address] [place] [address] Care Team Providers Care Concert Or Lecture Hall Manager Name Role Phone CADEN FELIZ Primary [...] PLAN I Aug 19, 2019 PLAN I [id number] [phone] MEEK,SABINE ICEL PATIENT [employer] OPT[employer] MEDICARE SUPPLEMEN MARCIA PLANM Y Aug 19, 2019 PLANMY [id number] MEEK,GR ICEL PATIENT [employer] OPTIONS MEDICARE SUPPLEMEN MARCIA AARP MEDIC ARE SUPPL Aug 19, 2019 PLAN MY [id number] MEEK,GR ICEL PATIENT A[employer] INS MEDICARE SUPPLEMEN MARCIA PLANM Y Aug 19, 2019 PLANMY [id number] MEEK,GR ICEL PATIENT AARP MED SUPP MEDICARE SUPPLEMEN MARCIA Jul 19, 2010 PLANMY [id number] MEEK,GR ICEL PATIENT MEDICARE (WNR) MEDICARE () PART B Aug 19, 2008 PART B [id number] [phone] MEEK,GR ICEL PATIENT MEDICARE (WNR) MEDICARE () PART B Aug 19, 2008 PART B [id number] MEEK,GR ICEL PATIENT MEDICARE (WNR) MEDICARE () PART B Aug 19, 2008 PART B [id number] MEEK,GR ICEL PATIENT MEDICARE (WNR) MEDICARE () PART B Aug 19, 2008 PART B [id number] MEEK,GR ICEL PATIENT MEDICARE (WNR) MEDICARE () PART B Aug 19, 2008 PART B [id number] [phone] MEEK,GR ICEL PATIENT MEDICARE (WNR) MEDICARE () PART B Aug 19, 2008 PART B [id number] MEEK,GR ICEL PATIENT MEDICARE (WNR) MEDICARE () PART B Aug 19, 2008 PART B [id number] MEEK,GR ICEL PATIENT MEDICARE (WNR) MEDICARE () PART A December 18, 2003 PART A [id number] [phone] MEEK,GR ICEL PATIENT MEDICARE (WNR) MEDICARE () PART A December 18, 2003 PART A [id number] [phone] MEEK,GR ICEL PATIENT MEDICARE (WNR) MEDICARE () PART A December 18, 2003 PART A [id number] MEEK,GR ICEL PATIENT MEDICARE (WNR) MEDICARE () PART A December 18, 2003 PART A [id number] MEEK,GR ICEL PATIENT MEDICARE (WNR) MEDICARE () PART A December 18, 2003 PART A [id number] [phone] MEEK,GR ICEL PATIENT MEDICARE (WNR) MEDICARE () PART A December 18, 2003 PART A [id number] SABINE MEEK PATIENT MEDICARE (WNR) MEDICARE (M) PART A December 18, 2003 PART A [id number] SABINE MEEK PATIENT Selected Encounter This section includes the information on record at [place] for the Encounter. Date/Time Encounter Type Encounter Description Reason Pro vider Source Apr 07, 2024 01:44 PM Outpatient Encounter TELEPHONE PRIMARY CARE IHE Encounter Template Text not used by [place] Plan of Treatment: Future Appointments (+ 6 months) and Future Tests (+/- 45 days) The Plan of Treatment section includes future care activities for the patient from all [place] treatmentfacilities. This section includes future appointments and [...] AMBULATORY - [facility]IATRY [facility] [place] [facility] May 08, 2024 08:00 AM AM[place]ULATORY [place] [facility] [place] [facility] May 11, 2024 01:00 PM AMBULATORY - PS[facility]CHIATRY [facility] [place] [facility] May 18, 2024 01:00 PM AMBULATORY - PS[facility]CHIATRY [facility] [place] [facility] May 20, 2024 09:30 AM [place] [facility] [place] [facility] May 25, 2024 01:00 PM AMBULATORY - PSYCHIATRY [facility] [place] [facility] Jun 08, 2024 09:30 AM AMBULATORY - PS[facility]CHIATRY [facility] [place] [facility] Jun 08, 2024 01:00 PM AMBULATORY - PSYCHIATRY [facility] [place] [facility] Jun 15, 2024 01:00 PM AMBULATORY - PS[facility]CHIATRY [facility] [place] [facility] Jun 19, 2024 09:00 AM AMBULATORY - PS[facility]CHIATRY [facility] [place] [facility] Jun 27, 2024 09:30 AM [place] [facility] [place] [facility] Jul 06, 2024 01:00 PM AMBULATORY - PS[facility]CHIATRY [facility] [place] [facility] Jul 13, 2024 11:30 AM [place] [facility] [place] [facility] Jul 13, 2024 01:00 PM AMBULATORY - PSYCHIATRY [facility] [place] [facility] Jul 20, 2024 09:30 AM AMBULATORY - PS[facility]CHIATRY [facility] [place] [facility] Jul 21, 2024 09:30 AM [place] [facility] [place] [facility] Jul 22, 2024 09:00 AM AM[place] [facility] [place] [facility] Jul 27, 2024 01:00 PM AM[place] [facility] [place] [facility] Aug 07, 2024 08:00 AM [place] [facility] [place] [facility] Aug 07, 2024 09:45 AM [facility] Active, Pending, and Scheduled Orders This section includes a listing of several types of active, pending, and scheduled orders, including clinic medications orders, diagnostic test orders, procedure orders and consult orders; where the start date of the order is 45 days before the date of the Encounter or 45 days after the date of theEncounter. The data comes from all [place] treatment facilities. Test Date/Time Test Type Test Details Facility Name Feb 28, 2024 12:49 PM Consult Order COMMUNITY CARE-CARDIOLOGY Cons Property Management Supervisor's Choice [facility] Apr 21, 2024 10:05 AM Consult Order COMMUNITY CARE-MAMMOGRAPHY FEMALE SCREEN Cons Property Management Supervisor's Choice [facility] Lab Results: +/- 30 days of [...] Range Comment Apr 06, 2024 01:21 PM [facility] COVID-19 FLU/RSV DIAGNOSTIC PANEL Specimen Type: [...] patient management decisions.Mary siddiqi FLUVID: HCPs: https://www.fda. gov/media/426135 /download. Patients: https://www.fda. gov/media/423085 /download NOTIFIED DR FELIZ 04/06/24@1552 BY EMAILED TO INFECTION CONTROL FAXED TO [facility] Ordering Provider: CADEN FELIZ Report Released Date/Time: Apr 06, 2024 12:55 PM Reporting Lab: [address] [address] Performing Lab: [address] [address] COVID-19 PCR (FLUVID) POSITIVE HH NEGATIVE FLU A PCR (FLUVID) NEGATIVE FLU B PCR (FLUVID) NEGATIVE RSV PCR (FLUVID) NEGATIVE Apr 06, 2024 01:21 PM [facility] SARS-COV-2 VARIANT SEQ PNL(V) Specimen Type: NASOPHARYNX Comment: -Pangolin version 4.3.1 (data version ) -Nextclade version 3.8.2 (data version 2024-03-04) https://www.cdc. gov/coronavirus/ 2019-ncov/cases- updates/variant- surveillance/jv iant-info.html The [employer] SARS CoV 2 Amplion [employer] Research Assay-GX is a next-generation sequencing (NGS) assay that determines the complete genome sequence of the SARS-CoV-2 virus. The assay contains variant-tolerant primers to broaden and improve the coverage for variant detection and increase the sensitivity of the panel to enable detection from lower viral titer samples. The assay is run on the Tookitaki Sequencer, which performs automated library preparation, sequencing, analysis, and reporting. The sequence analysis includes determination of viral phylogenetic lineage by comparison to the reference strain Wu[place]-Hu-1, GenBank: [id number]. Sequence determination may not be possible owing to inadequate quantity or quality of the viral RNA in the original specimen. Sequencing will not be attempted if the SARS-CoV-2 PCR assay result has a Ct > 30. Note that phylogenetic lineage assignment in some cases may pattern changer time for the same sequence as the virus continues to evolve and new sub lineages are created. The reported result will reflect the lineage assignment only at the time of initial sequence determination. This test was developed, and its performance characteristics determined by the [facility], which is certified under the Clinical Laboratory Improvement Amendments (CLIA) as qualified to perform high complexity clinical laboratory testing. This test is validated for clinical use at [facility] and should not be regarded as investigational or for research. The FDA does not require this test to go through premarket FDA review, and therefore it has not been cleared or approved by the FDA. This report was reviewed and approved by the on-service pathologist. Ordering Provider: CADEN FELIZ Report Released Date/Time: Apr 27, 2024 11:46 AM Reporting Lab: [facility] [address] [address] Performing Lab: [facility] [address] [address] SARS-COV-2 Lineage(WHV) MC.1 SARS-COV-2 Clade(WHV) 24C (Omicron) [...] took place. Date/Time Current Smoking Status Comment [facility] Apr 06, 2024 12:30 PM VA-TOBACCO FORMER USER [facility] Tobacco Use History This section includes a history of the smoking, or tobacco-related health factors, that were collected on or before the date of the Encounter. The data comes from the [place] facility where the Encounter took place. Date/Time Smoking Status/Tobac co Use Comment Facility Apr 06, 2024 12:30 PM [place]-TOBACCO QUIT 15 YRS OR MORE [facility] Feb 08, 2023 10:00 AM VA-TOBACCO FORMER USER [facility] Feb 08, 2023 10:00 AM [place]-TOBAC[place] QUIT 15 YRS OR MORE [facility] [place] [facility] Mar 06, 2022 02:30 PM VA-TOBACCO FORMER USER [facility] [place] [facility] Mar 06, 2022 02:30 PM VA-TOBACCO QUIT 15 YRS OR MORE [place] [facility] [place] [facility] Apr 04, 2021 10:28 AM VA-TOBACCO NEVER USED [place] [facility] [place] [facility] May 03, 2020 02:00 PM VA-TOBACCO NEVER USED [facility] [place] [facility] Feb 25, 2019 08:14 AM VA-TOBACCO FORMER USER [facility] [place] [facility] Feb 25, 2019 08:14 AM VA-TOBACCO QUIT 5 TO < 15 YRS [facility] [place] [facility] Apr 04, 2018 10:41 AM QUIT TOBACCO USE 1-7 YEARS AGO [facility] [place] [facility] Oct 28, 2017 10:18 AM QUIT TOBACCO USE 1-7 YEARS AGO [facility] [place] [facility] Jan 22, 2017 01:08 PM QUIT TOBACCO USE 1-7 YEARS AGO [facility] [place] [facility] Jul 18, 2016 01:34 PM QUIT TOBACCO USE 1-7 YEARS AGO [facility] [place] [facility] January 10, 2016 10:32 AM QUIT TOBACCO USE 1-7 YEARS AGO [facility] [place] [facility] Oct 13, 2015 11:05 AM QUIT TOBACCO USE 1-7 YEARS AGO [place] [facility] [place] [facility] Oct 19, 2014 01:53 PM QUIT TOBACCO USE > 7 YEARS AGO [facility] [place] [facility] January 02, 2014 01:30 AM QUIT TOBACCO USE IN PAST YEAR [facility] [place] [facility] Jun 18, 2013 09:00 AM CURRENT SMOKER 6 cigarettes qd [facility] [place] [facility] Jun 18, 2013 09:00 AM V1-PT DECLINES TOBACCO CESSATION MEDS [facility] [place] [facility] Jun 18, 2013 09:00 AM V1-PT NOT INTERESTED IN QUIT TOBACCO USE [place] [facility] [place] [facility] December 24, 2012 10:51 AM V1-PT DECLINES REF TO TOBACCO CESS PRGM [place] [facility] [place] [facility] December 24, 2012 10:51 AM V1-PT DECLINES TOBACCO CESSATION MEDS [facility] December 24, 2012 10:51 AM V1-PT THINKING ABOUT QUIT TOBACCO USE [facility] Jul 15, 2012 10:19 AM QUIT TOBACCO USE IN PAST YEAR [facility] Jan 25, 2012 05:02 PM QUIT TOBACCO USE IN PAST YEAR [facility] Sep 28, 2011 10:09 AM CURRENT SMOKER 5 cigarettes a day [facility] Jun 15, 2011 02:23 PM V1-PT DECLINES REF TO TOBACCO CESS [facility] Jun 15, 2011 02:23 PM V1-PT READY TO QUIT TOBACCO USE [facility] Apr 13, 2011 10:31 AM V1-PT DECLINES REF TO TOBACCO CESS [facility] Apr 13, 2011 10:31 AM V1-PT RECEIVES TOBACCO CESS MEDS OUTSIDE [facility] Apr 13, 2011 10:31 AM V1-PT THINKING ABOUT QUIT TOBACCO USE [facility] Oct 16, 2010 08:52 AM QUIT TOBACCO USE IN PAST YEAR [facility] May 12, 2010 02:08 PM V1-PT DECLINES REF TO TOBACCO CESS [facility] May 12, 2010 02:08 PM V1-PT READY TO QUIT TOBACCO USE [facility] May 12, 2010 12:45 PM CURRENT SMOKER 3 cigarettes a day [facility]
--- OUTSIDE RECORDS SUMMARY | 2024-08-04 17:21 | XMS_ITS | Encounter Summary ---
Author Name [facility] Organization [facility] Address [address] [place] [address] Care Team Providers Care Insolvency Consultant Name Role Phone CADEN FELIZ Primary Care [...] PLAN I Aug 19, 2019 PLAN I [id number] MEEK,SABINE ICEL PATIENT [employer] OPTIONS MEDICARE SUPPLEMEN MARCIA PLANM Y Aug 19, 2019 PLANMY [id number] MEEK,GR ICEL PATIENT [employer] OPTIONS MEDICARE SUPPLEMEN MARCIA AARP MEDIC ARE SUPPL Aug 19, 2019 PLAN MY [id number] MEEK,SABINE ICEL PATIENT [employer] INS MEDICARE SUPPLEMEN MARCIA PLANM Y Aug 19, 2019 PLANMY [id number] [phone] MEEK,GR ICEL PATIENT AARP MED SUPP MEDICARE SUPPLEMEN MARCIA Jul 19, 2010 PLANMY [id number] MEEK,GR ICEL PATIENT MEDICARE (WNR) MEDICARE () PART B Aug 19, 2008 PART B [id number] MEEK,GR ICEL PATIENT MEDICARE (WNR) MEDICARE () PART B Aug 19, 2008 PART B [id number] [phone] MEEK,GR ICEL PATIENT MEDICARE (WNR) MEDICARE () PART B Aug 19, 2008 PART B [id number] MEEK,GR ICEL PATIENT MEDICARE (WNR) MEDICARE () PART B Aug 19, 2008 PART B [id number] MEEK,GR ICEL PATIENT MEDICARE (WNR) MEDICARE () PART B Aug 19, 2008 PART B [id number] [phone] MEEK,GR ICEL PATIENT MEDICARE (WNR) MEDICARE () PART B Aug 19, 2008 PART B [id number] [phone] MEEK,GR ICEL PATIENT MEDICARE (WNR) MEDICARE () PART B Aug 19, 2008 PART B [id number] MEEK,GR ICEL PATIENT MEDICARE (WNR) MEDICARE () PART A December 18, 2003 PART A [id number] [phone] MEEK,GR ICEL PATIENT MEDICARE (WNR) MEDICARE () PART A December 18, 2003 PART A [id number] MEEK,GR ICEL PATIENT MEDICARE (WNR) MEDICARE () PART A December 18, 2003 PART A [id number] [phone] MEEK,GR ICEL PATIENT MEDICARE (WNR) MEDICARE () PART A December 18, 2003 PART A [id number] [phone] MEEK,GR ICEL PATIENT MEDICARE (WNR) MEDICARE () PART A December 18, 2003 PART A [id number] MEEK,GR ICEL PATIENT MEDICARE (WNR) MEDICARE () PART A December 18, 2003 PART A [id number] SABINE MEEK ICEL PATIENT MEDICARE (WNR) MEDICARE (M) PART A December 18, 2003 PART A [id number] MEEK,GR ICEL PATIENT Selected Encounter This section includes the information on record at OR for the Encounter. Date/Time Encounter Type Encounter Description Reason Provider Source Apr 08, 2024 09:22 AM QNHP OL DIG ASSMT&MGMT 5-10 CLINICAL PHARMACY ICD-10-CM I48.0 Paroxysmal atrial fibrillation JEFFERY MCKEON Darshan Encounter Template Text not used by OR Assessments - Encounter Diagnoses This section includes the primary and secondary diagnoses documented for the Encounter. Date/Time Primary/Secondary Diagnosis Diagnosis Name Provider Source Apr 08, 2024 09:25 AM PRIMARY Paroxysmal atrial fibrillation JEFFERY MCKEON [place] [facility] [place] [facility] Plan of Treatment: Future Appointments (+ 6 months) and Future Tests (+/- 45 days) The Plan of Treatment section includes future care activities for the [facility] This section includes future appointments and [...] 23, 2024 08:40 AM AMBULATORY - PSYCHIATRY OR [facility] [place] [facility] May 08, 2024 08:00 AM AMBULATORY - MEDICINE OR C [facility] [place] [facility] May 11, 2024 01:00 PM AMBULATORY - PSYCHIATRY [place] [facility] [place] [facility] May 18, 2024 01:00 PM AMBULATORY - PSYCHIATRY OR [facility] [place] [facility] May 20, 2024 09:30 AM AMBULATORY - MEDICINE OR C [facility] [place] [facility] May 25, 2024 01:00 PM AMBULATORY - PSYCHIATRY [place] [facility] [place] [facility] Jun 08, 2024 09:30 AM AMBULATORY - PSYCHIATRY [place] [facility] [place] [facility] Jun 08, 2024 01:00 PM AMBULATORY - PSYCHIATRY [place] [facility] [place] [facility] Jun 15, 2024 01:00 PM AMBULATORY - PSYCHIATRY [facility] [place] [facility] Jun 19, 2024 09:00 AM AMBULATORY - PSYCHIATRY [facility] [place] [facility] Jun 27, 2024 09:30 AM AMBULATORY - MEDICINE VA C [facility] [place] [facility] Jul 06, 2024 01:00 PM AMBULATORY - PSYCHIATRY [facility] [place] [facility] Jul 13, 2024 11:30 AM AMBULATORY - MEDICINE VA C [facility] [place] [facility] Jul 13, 2024 01:00 PM AMBULATORY - PSYCHIATRY [facility] [place] [facility] Jul 20, 2024 09:30 AM AMBULATORY - PSYCHIATRY [facility] [place] [facility] Jul 21, 2024 09:30 AM AMBULATORY - MEDICINE VA [facility] [place] [facility] Jul 22, 2024 09:00 AM AMBULATORY - PSYCHIATRY [facility] [place] [facility] Jul 27, 2024 01:00 PM AMBULATORY - PSYCHIATRY [facility] [place] [facility] Aug 07, 2024 08:00 AM AMBULATORY - MEDICINE [facility] C [facility] [place] [facility] Aug 07, 2024 09:45 AM AMBULATORY - NONE [facility] [place] [facility] Active, Pending, and Scheduled Orders This [...] 12:49 PM Consult Order COMMUNITY CARE-CARDIOLOGY Cons Laborer [facility] [facility] [place] [facility] Apr 21, 2024 10:05 AM Consult Order COMMUNITY CARE-MAMMOGRAPHY FEMALE SCREEN Cons Laborer [employer] [facility] [facility] [place] [facility] Lab Results: +/- 30 days of [...] Range Comment Apr 06, 2024 01:21 PM [facility] COVID-19 FLU/RSV DIAGNOSTIC PANEL Specimen Type: NASOPHARYNX Comment: This test is authorized for emergency use only. False negative results may occur if virus is present at levels below the analytical limit of detection.Negati ve results do not preclude SARS-CoV-2, influenza or RSV infection and should not be used as the sole basis for treatment or other patient management decisions.Mary siddiqi FLUVID: HCPs: https://www.fda. gov/media/241300 /download. Patients: https://www.fda. gov/media/730951 /download NOTIFIED DR FELIZ 04/06/24@9723 BY EMAILED TO INFECTION CONTROL FAXED TO [facility] Ordering Provider: CADEN FELIZ Report Released Date/Time: Apr 06, 2024 12:55 PM Reporting Lab: [address] [address] Performing Lab: [address] [address] COVID-19 PCR (FLUVID) POSITIVE HH NEGATIVE FLU A PCR (FLUVID) NEGATIVE FLU B PCR (FLUVID) NEGATIVE RSV PCR (FLUVID) NEGATIVE Apr 06, 2024 01:21 PM [facility] SARS-COV-2 VARIANT SEQ PNL(WHV) Specimen Type: NASOPHARYNX Comment: -Pangolin version 4.3.1 (data version ) -Nextclade version 3.8.2 (data version 2024-03-04) https://www.cdc. gov/coronavirus/ 2019-ncov/cases- updates/variant- surveillance/jv iant-info.html The [employer] AmpliSeq SARS CoV 2 Insight Research Assay-GX is a next-generation sequencing (NGS) assay that determines the complete genome sequence of the SARS-CoV-2 virus. The assay contains variant-tolerant primers to broaden and improve the coverage for variant detection and increase the sensitivity of the panel to enable detection from lower viral titer samples. The assay is run on the Neura Sequencer, which performs automated library preparation, sequencing, analysis, and reporting. The sequence analysis includes determination of viral phylogenetic lineage by comparison to the reference strain Wu[place]-Hu-1, GenBank: [id number]. Sequence determination may not be possible owing to inadequate quantity or quality of the viral RNA in the original specimen. Sequencing will not be attempted if the SARS-CoV-2 PCR assay result has a Ct > 30. Note that phylogenetic lineage assignment in some cases may meter changes records clerk time for the same sequence as the virus continues to evolve and new sub lineages are created. The reported result will reflect the lineage assignment only at the time of initial sequence determination. This test was developed, and its performance characteristics determined by the [facility], which is certified under the Clinical Laboratory Improvement Amendments (CLIA) as qualified to perform high complexity clinical laboratory testing. This test is validated for clinical use at [facility] and should not be regarded as investigational or for research. The FDA does not require this test to go through premarket FDA review, and therefore it has not been cleared or approved by the FDA. This report was reviewed and approved by the on-service pathologist. Ordering Provider: CADEN FELIZ Report Released Date/Time: Apr 27, 2024 11:46 AM Reporting Lab: [facility] [address] [address] Performing Lab: [facility] [address] [address] SARS-COV-2 Lineage(WHV) MC.1 SARS-COV-2 Clade(WHV) 24C (Omicron) [...] ity Apr 06, 2024 12:30 PM VA-TOBACCO QUIT 15 YRS OR MORE [facility] Tobacco [...] [facility] [place] [facility] Feb 08, 2023 10:00 AM VA-TOBACCO FORMER USER [facility] [place] [facility] Feb 08, 2023 10:00 AM VA-TOBACCO QUIT 15 YRS OR MORE [facility] [place] [facility] Mar 06, 2022 02:30 PM VA-TOBACCO FORMER USER [facility] [place] [facility] Mar 06, 2022 02:30 PM VA-TOBACCO QUIT 15 YRS OR MORE [facility] [place] [facility] Apr 04, 2021 10:28 AM VA-TOBACCO NEVER USED OR [facility] [place] [facility] May 03, 2020 02:00 PM VA-TOBACCO NEVER USED OR [facility] [place] [facility] Feb 25, 2019 08:14 AM VA-TOBACCO FORMER USER [facility] [place] [facility] Feb 25, 2019 08:14 AM VA-TOBACCO QUIT 5 TO < 15 YRS [facility] [place] [facility] Apr 04, 2018 10:41 AM QUIT TOBACCO USE 1-7 YEARS AGO [facility] [place] [facility] Oct 28, 2017 10:18 AM QUIT TOBACCO USE 1-7 YEARS AGO [facility] [place] [facility] Jan 22, 2017 01:08 PM QUIT TOBACCO USE 1-7 YEARS AGO [facility] [place] [facility] Jul 18, 2016 01:34 PM QUIT TOBACCO USE 1-7 YEARS AGO [facility] [place] [facility] January 10, 2016 10:32 AM QUIT TOBACCO USE 1-7 YEARS AGO [facility] [place] [facility] Oct 13, 2015 11:05 AM QUIT TOBACCO USE 1-7 YEARS AGO [facility] [place] [facility] Oct 19, 2014 01:53 PM QUIT TOBACCO USE > 7 YEARS AGO [facility] [place] [facility] January 02, 2014 01:30 AM QUIT TOBACCO USE IN PAST YEAR [facility] [place] [facility] Jun 18, 2013 09:00 AM CURRENT SMOKER 6 cigarettes qd [facility] [place] [facility] Jun 18, 2013 09:00 AM V1-PT DECLINES TOBACCO CESSATION MEDS [facility] [place] [facility] Jun 18, 2013 09:00 AM V1-PT NOT INTERESTED IN QUIT TOBACCO USE [facility] [place] [facility] December 24, 2012 10:51 AM V1-PT DECLINES REF TO TOBACCO CESS [facility] [place] [facility] December 24, 2012 10:51 AM V1-PT DECLINES TOBACCO CESSATION MEDS [facility] [place] [facility] December 24, 2012 10:51 AM V1-PT THINKING ABOUT QUIT [facility] Jul 15, 2012 10:19 AM QUIT TOBACCO USE IN PAST [facility] Jan 25, 2012 05:02 PM QUIT TOBACCO USE IN PAST YEAR [facility] MICN [facility] Sep 28, 2011 10:09 AM CURRENT SMOKER 5 cigarettes a day [facility] Jun 15, 2011 02:23 PM V1-PT DECLINES REF TO TOBACCO CESS [facility] Jun 15, 2011 02:23 PM V1-PT READY TO QUIT [facility]BACCO [facility] Apr 13, 2011 10:31 AM V1-PT DECLINES REF TO TOBACCO CESS [facility] Apr 13, 2011 10:31 AM V1-PT RECEIVES TOBACCO CESS MEDS OUT[facility]IDE [facility] Apr 13, 2011 10:31 AM V1-PT THINKING ABOUT QUIT TOBACCO [facility] Oct 16, 2010 08:52 AM QUIT TOBACCO USE IN PAST YEAR [facility] May 12, 2010 02:08 PM V1-PT DECLINES REF TO TOBACCO CESS [facility] May 12, 2010 02:08 PM V1-PT READY TO QUIT TOBACCO USE [facility] MICTRN [facility] May 12, 2010 12:45 PM CURRENT SMOKER 3 cigarettes a day [facility] Encounter Notes: All associated encounter notes This section contains the clinical notes associated to the Encounter. Date/Time Encounter Note(s) Provider Source Apr 08, 2024 09:22 AM PHARMACY MEDICATIO N MGT NOTE: LOCAL TITLE: PHARMACY ANTICOAGULATION NOTE STANDARD TITLE: PHARMACY MEDICATION MGT NOTE DATE OF NOTE: APR 08, 2024@09:22 ENTRY DATE: APR 08, 2024@09:22:36 AUTHOR: JEFFERY MCKEON EXP COSIGNER: URGENCY: STATUS: COMPLETED ANTICOAGULATION DOAC MONITORING NOTE SUBJECTIVE: Patient identified through the DOAC population Management Tool based on the following criteria: [ ] Dosing Issue [ X ] Critical Drug Interaction [ ] Cancer Treatment [ ] Active NSAID [ ] Labs Overdue [ ] Prosthetic Valve Replacement [ ] Notable Lab Value [ ] Overdue for Refill [ ] Other: Comments: PT flagged by DOAC dashboard for critical drug interaction with ritonavir and apixaban. Per notes on 04/07/24; patient has not been taking for 2 weeks and agrees to continue to hold while on Paxlovid. Note the duration of ritonavir therapy is 5 days (started on 04/07/24. OBJECTIVE: Indication for anticoagulation: [ X ] Atrial fibrilation [ X ] Atrial flutter [ ] VTE (DVT or PE) [ ] Post-op DVT prophylaxis [ ] Other: Most recent lab values include the following: HGB: HGB Collection DT Specimen Test Name Result Units Ref Range 02/28/2024 13:01 BLOOD HGB 12.4 g/dL 12 - 15.2 PLT: WBC Collection DT Specimen Test Name Result Units Ref Range 02/28/2024 13:01 BLOOD WBC 3.39 L K/cmm 4.50 - 11.00 Liver Function Tests Collection DT Spec AST ALT ALK TERRY ALBUMIN T BILI T. PROT 02/28/2024 13:01 SERUM 15 20 62 4.2 0.4 7.0 HEIGHT: 61 in [154.9 cm] (09/13/2023 11:34) WEIGHT: 145.4 lb [65.95 kg] (11/15/2023 09:11) BMI: BMI: 27.5 CREATININE-EGFR 02/28/24 13:01 0.70 11/15/23 10:10 0.66 08/09/23 11:01 0.67 CRCL IBW: CrCl(est): 62.0 mL/min (Creat:0.70 02/28/24) CRCL ACT: 53.84 mL/min CRCL ADJ: 62.0 mL/min (02/28/24) ASSESSMENT: Drug interaction between Paxlovid and apixaban was correctly addressed. Pt was educated Action required? [ ] Yes [ X ] No Comments: PLAN: [ X ] No action required, dismiss flag [ ] Will intervene: [ ] Patient education via phone/letter [ ] Schedule phone/[id number] follow up [ ] Lab ordered [ ] Discontinue interacting medication [ ] Discontinue DOAC [ ] Change to alternative DOAC [ ] Change DOAC dose [ ] Notify PCP [ ] Consult cardiology/hematology [ ] Other: Time spent: 5 minutes /jeana/ JEFFERY MCKEON PHARMSu, BCPS CLINICAL PHARMACIST PRACTITIONER Signed: 04/08/2024 09:25 [facility]
--- OUTSIDE RECORDS SUMMARY | 2024-08-04 17:22 | XMS_ITS | Encounter Summary ---
Author Name [facility] Organization [facility] Address [address] [place] [address] Care Team Providers Care Buck Swamper Name Role Phone CADEN FELIZ Primary Care [...] PLAN I Aug 19, 2019 PLAN I [id number] MEEK,GR ICEL PATIENT [employer] OPTIONS MEDICARE SUPPLEMEN MARCIA PLANM Y Aug 19, 2019 PLANMY [id number] MEEK,GR ICEL PATIENT [employer] OPTIONS MEDICARE SUPPLEMEN MARCIA AARP MEDIC ARE SUPPL Aug 19, 2019 PLAN MY [id number] MEEK,GR ICEL PATIENT AARP INS MEDICARE SUPPLEMEN MARCIA PLANM Y Aug 19, 2019 PLANMY [id number] [phone] MEEK,GR ICEL PATIENT AARP MED SUPP MEDICARE SUPPLEMEN MARCIA Jul 19, 2010 [facility] [id number] MEEK,GR ICEL PATIENT MEDICARE (WNR) MEDICARE () PART B Aug 19, 2008 PART B [id number] MEEK,GR ICEL PATIENT MEDICARE (WNR) MEDICARE () PART B Aug 19, 2008 PART B [id number] MEEK,GR ICEL PATIENT MEDICARE (WNR) MEDICARE () PART B Aug 19, 2008 PART B [id number] [phone] MEEK,GR ICEL PATIENT MEDICARE (WNR) MEDICARE () PART B Aug 19, 2008 PART B [id number] MEEK,GR ICEL PATIENT MEDICARE (WNR) MEDICARE () PART B Aug 19, 2008 PART B [id number] [phone] MEEK,GR ICEL PATIENT MEDICARE (WNR) MEDICARE () PART B Aug 19, 2008 PART B [id number] MEEK,GR ICEL PATIENT MEDICARE (WNR) MEDICARE () PART B Aug 19, 2008 PART B [id number] [phone] MEEK,GR ICEL PATIENT MEDICARE (WNR) MEDICARE () PART A December 18, 2003 PART A [id number] [phone] MEEK,GR ICEL PATIENT MEDICARE (WNR) MEDICARE () PART A December 18, 2003 PART A [id number] MEEK,GR ICEL PATIENT MEDICARE (WNR) MEDICARE () PART A December 18, 2003 PART A [id number] [phone] MEEK,GR ICEL PATIENT MEDICARE (WNR) MEDICARE () PART A December 18, 2003 PART A [id number] [phone] MEEK,GR ICEL PATIENT MEDICARE (WNR) MEDICARE () PART A December 18, 2003 PART A [id number] [phone] MEEK,GR ICEL PATIENT MEDICARE (WNR) MEDICARE (M) PART A December 18, 2003 PART A [id number] SABINE MEEK PATIENT MEDICARE (WNR) MEDICARE (M) PART A December 18, 2003 PART A [id number] SABINE MEEK PATIENT Selected Encounter This section includes the information on record at [place] for the Encounter. Date/Time Encounter Type Encounter Description Reason Provider Source Apr 23, 2024 08:40 AM PRO PHONE CALL 21-30 MIN TELEPHONE ICD-10-CM F41.9 Anxiety disorder, unspecified TRINAIRASEMA VICK Darshan Encounter Template Text not used by [place] Assessments - Encounter Diagnoses This section includes the primary and secondary diagnoses documented for the Encounter. Date/Time Primary/Secondary Diagnosis Diagnosis Name Provider Source Apr 23, 2024 08:40 AM PRIMARY Anxiety disorder, unspecified TRINAIRASEMA VICK [place] [facility] [place] [facility] Apr 23, 2024 08:40 AM SECONDARY Insomnia due to other mental disorder IRASEMA DAMON [place] [facility] [place] [facility] Apr 23, 2024 08:40 AM SECONDARY Mental disorder, not otherwise specified IRASEMA DAMON [facility] [place] [facility] Apr 23, 2024 08:40 AM SECONDARY Other recurrent depressive disorders IRASEMA DAMON [place] [facility] [place] [facility] Apr 23, 2024 08:40 AM SECONDARY Post-traumatic stress disorder, chronic IRASEMA DAMON [facility] [place] [facility] Plan of Treatment: Future [...] Date/Time Appointment Type Appointme nt Facility Name May 08, 2024 08:00 AM [facility] May 11, 2024 01:00 PM AMBULATORY - PS[place]CHIATRY [facility] [place] [facility] May 18, 2024 01:00 PM AMBULATORY - [facility]ATRY [facility] [place] [facility] May 20, 2024 09:30 AM AMBULATORY - MEDICINE [facility] [place] [facility] May 25, 2024 01:00 PM AMBULATORY - PS[facility]CHIATRY [facility] [place] [facility] Jun 08, 2024 09:30 AM AMBULATORY - PSYCHIATRY [facility] [place] [facility] Jun 08, 2024 01:00 PM AMBULATORY - PS[facility]CHIATRY [facility] [place] [facility] Jun 15, 2024 01:00 PM AMBULATORY - PS[facility]CHIATRY [facility] [place] [facility] Jun 19, 2024 09:00 AM AMBULATORY - PS[facility]CHIATRY [facility] [place] [facility] Jun 27, 2024 09:30 AM AMBULATORY - MEDICINE [facility] [place] [facility] Jul 06, 2024 01:00 PM AMBULATORY - PSYCHIATRY [facility] [place] [facility] Jul 13, 2024 11:30 AM AMBULATORY - MEDICINE [facility] [place] [facility] Jul 13, 2024 01:00 PM AMBULATORY - PSYCHIATRY [facility] [place] [facility] Jul 20, 2024 09:30 AM AMBULATORY - PSYCHIATRY [facility] [place] [facility] Jul 21, 2024 09:30 AM AMBULATORY - MEDICINE [facility] [place] [facility] Jul 22, 2024 09:00 AM AMBULATORY - PSYCHIATRY [facility] [place] [facility] Jul 27, 2024 01:00 PM AMBULATORY - PSYCHIATRY [facility] [place] [facility] Aug 07, 2024 08:00 AM AMBULATORY - MEDICINE [facility] [place] [facility] Aug 07, 2024 09:45 AM AMBULATORY - NONE [facility] [place] [facility] Sep 23, 2024 09:00 AM AMBULATORY - PSYCHIATRY [facility] [place] [facility] Active, Pending, and Scheduled [...] Date/Time Test Type Test Details Facility Name Apr 21, 2024 10:05 AM Consult Order [facility]-MAMMOGRAPHY FEMALE SCREEN Cons Base Draw Operator's Choice [facility] May 28, 2024 09:28 AM Consult Order [facility] Cons Base Draw Operator's Choice [facility] Lab Results: +/- 30 days of the encounter This section includes the Chemistry and Hematology Lab Results on record with [place] for the patient. Radiology Reports and Pathology Reports are provided separately, in subsequent sections. Lab Results This section contains the Chemistry/Hematology Results that were resulted 30 days before or 30 daysafter the date of the Encounter. Date/Time Source Result Type Result - Unit Interpretation Reference Range Comment Apr 06, 2024 01:21 PM [facility] COVID-19 FLU/RSV DIAGNOSTIC PANEL Specimen Type: NASOPHARYNX Comment: This test is authorized for emergency use only. False negative results may occur if virus is present at levels below the analytical limit of detection.Negati ve results do not preclude SARS-CoV-2, influenza or RSV infection and should not be used as the sole basis for treatment or other patient management decisions.Hugoi d FLUVID: HCPs: https://www.fda. gov/media/416526 /download. Patients: https://www.fda. gov/media/485983 /download NOTIFIED DR FELIZ 04/06/24@8812 BY EMAILED TO INFECTION CONTROL FAXED TO [facility] Ordering Provider: CADEN FELIZ Report Released Date/Time: Apr 06, 2024 12:55 PM Reporting Lab: [facility] [address] [facility] [address] Performing Lab: [address] [address] COVID-19 PCR (FLUVID) POSITIVE HH NEGATIVE FLU A PCR (FLUVID) NEGATIVE FLU B PCR (FLUVID) NEGATIVE RSV PCR (FLUVID) NEGATIVE Apr 06, 2024 01:21 PM [facility] SARS-COV-2 VARIANT SEQ PNL(WHV) Specimen Type: NASOPHARYNX Comment: -Pangolin version 4.3.1 (data version .29.0) -Nextclade version 3.8.2 (data version 2024-03-04) https://www.cdc. gov/coronavirus/ 2019-ncov/cases- updates/variant- surveillance/jv iant-info.html The [employer] AmpliSeq SARS CoV 2 nVoq Research Assay-GX is a next-generation sequencing (NGS) assay that determines the complete genome sequence of the SARS-CoV-2 virus. The assay contains variant-tolerant primers to broaden and improve the coverage for variant detection and increase the sensitivity of the panel to enable detection from lower viral titer samples. The assay is run on the [employer] Sequencer, which performs automated library preparation, sequencing, analysis, and reporting. The sequence analysis includes determination of viral phylogenetic lineage by comparison to the reference strain Wu[place]-Hu-1, GenBank: [id number]. Sequence determination may not be possible owing to inadequate quantity or quality of the viral RNA in the original specimen. Sequencing will not be attempted if the SARS-CoV-2 PCR assay result has a Ct > 30. Note that phylogenetic lineage assignment in some cases may overhauler helper time for the same sequence as the virus continues to evolve and new sub lineages are created. The reported result will reflect the lineage assignment only at the time of initial sequence determination. This test was developed, and its performance characteristics determined by the [facility], which is certified under the Clinical Laboratory Improvement Amendments (CLIA) as qualified to perform high complexity clinical laboratory testing. This test is validated for clinical use at [facility] and should not be regarded as investigational or for research. The FDA does not require this test to go through premarket FDA review, and therefore it has not been cleared or approved by the FDA. This report was reviewed and approved by the on-service pathologist. Ordering Provider: CADEN FELIZ Report Released Date/Time: Apr 27, 2024 11:46 AM Reporting Lab: [facility] [address] [facility] [address] Performing Lab: [facility] [address] [facility] [address] SARS-COV-2 Lineage(WHV) MC.1 SARS-COV-2 Clade(WHV) 24C (Omicron) [...] place. Date/Time Current Smoking Status Comment Rosamaria it Apr 06, 2024 12:30 PM VA-TOBACCO FORMER USER [place] [facility] [place] [facility] Tobacco Use History This section includes a history of the smoking, or tobacco-related health factors, that were collected on or before the date of the Encounter. The data comes from the [place] facility where the Encounter took place. Date/Time Smoking Status/Tobac co Use Comment Facility Apr 06, 2024 12:30 PM VA-TOBACCO QUIT 15 YRS OR MORE [facility] [place] [facility] Feb 08, 2023 10:00 AM VA-TOBACCO FORMER USER [facility] [place] [facility] Feb 08, 2023 10:00 AM VA-TOBACCO QUIT 15 YRS OR MORE [facility] [place] [facility] Mar 06, 2022 02:30 PM VA-TOBACCO FORMER USER [facility] [place] [facility] Mar 06, 2022 02:30 PM VA-TOBACCO QUIT 15 YRS OR MORE [facility] [place] [facility] Apr 04, 2021 10:28 AM VA-TOBACCO NEVER USED [facility] [place] [facility] May 03, 2020 02:00 PM VA-TOBACCO NEVER USED [facility] [place] [facility] Feb 25, 2019 08:14 AM VA-TOBACCO FORMER USER [facility] [place] [facility] Feb 25, 2019 08:14 AM VA-TOBACCO QUIT 5 TO < 15 YRS [facility] [place] [facility] Apr 04, 2018 10:41 AM QUIT TOBACCO USE 1-7 YEARS AGO [facility] [place] [facility] Oct 28, 2017 10:18 AM QUIT TOBACCO USE 1-7 YEARS AGO [facility] [place] [facility] Jan 22, 2017 01:08 PM QUIT TOBACCO USE 1-7 YEARS AGO [facility] [place] [facility] Jul 18, 2016 01:34 PM QUIT TOBACCO USE 1-7 YEARS AGO [facility] [place] [facility] January 10, 2016 10:32 AM QUIT TOBACCO USE 1-7 YEARS AGO [facility] [place] [facility] Oct 13, 2015 11:05 AM QUIT TOBACCO USE 1-7 YEARS AGO [facility] [place] [facility] Oct 19, 2014 01:53 PM QUIT TOBACCO USE > 7 YEARS AGO [facility] [place] [facility] January 02, 2014 01:30 AM QUIT TOBACCO USE IN PAST YEAR [facility] [place] [facility] Jun 18, 2013 09:00 AM CURRENT SMOKER 6 cigarettes qd [facility] Jun 18, 2013 09:00 AM V1-PT DECLINES TOBACCO CESSATION MEDS [facility] Jun 18, 2013 09:00 AM V1-PT NOT INTERESTED IN QUIT TOBACCO USE [facility] December 24, 2012 10:51 AM V1-PT DECLINES REF TO TOBACCO CESS PRGM [facility] [place] [facility] December 24, 2012 10:51 AM V1-PT DECLINES TOBACCO CESSATION MEDS [facility] December 24, 2012 10:51 AM V1-PT THINKING ABOUT QUIT TOBACCO USE [facility] [place] [place] [facility] Jul 15, 2012 10:19 AM QUIT TOBACCO USE IN PAST YEAR [facility] [place] [facility] Jan 25, 2012 05:02 PM QUIT TOBACCO USE IN PAST YEAR [facility] [place] [place] [facility] Sep 28, 2011 10:09 AM CURRENT SMOKER 5 cigarettes a day [facility] [place] [facility] Jun 15, 2011 02:23 PM V1-PT DECLINES REF TO TOBACCO CESS PRGM [facility] [place] [facility] Jun 15, 2011 02:23 PM V1-PT READY TO QUIT TOBACCO USE [facility] [place] [place] [facility] Apr 13, 2011 10:31 AM V1-PT DECLINES REF TO TOBACCO CESS PRGM [facility] Apr 13, 2011 10:31 AM V1-PT RECEIVES TOBACCO CESS MEDS OUTSIDE [facility] Apr 13, 2011 10:31 AM V1-PT THINKING ABOUT QUIT TOBACCO USE [facility] Oct 16, 2010 08:52 AM QUIT TOBACCO USE IN PAST YEAR [facility] May 12, 2010 02:08 PM V1-PT DECLINES REF TO TOBACCO CESS PRGM [facility] May 12, 2010 02:08 PM V1-PT READY TO QUIT TOBACCO USE [facility] May 12, 2010 12:45 PM CURRENT SMOKER 3 cigarettes a day [facility] Encounter Notes: All associated encounter notes This section contains the clinical notes associated to the Encounter. Date/Time Encounter Note(s) Provider Source Apr 23, 2024 09:02 AM MENTAL HEALTH OUTPATIENT NOTE: LOCAL TITLE: PRIMARY MENTAL HEALTH OUTPATIENT FOLLOW UP NOTE STANDARD TITLE: MENTAL HEALTH OUTPATIENT NOTE DATE OF NOTE: APR 23, 2024@09:02:23 ENTRY DATE: APR 23, 2024@11:38:28 AUTHOR: IRASEMA DAMON EXP COSIGNER: URGENCY: STATUS: COMPLETED DEPRESSIVE SYMPTOMS (PHQ-9) The patient reported some symptoms of depression; symptoms are not consistent with a major depressive episode. Patient Health Questionnaire-9 (PHQ-9) Patient reported being bothered by the following over the last 2 weeks: 1. Little interest or pleasure: Not at all 2. Feeling down, depressed or hopeless: Several Days 3. Trouble sleeping: Nearly every day 4. Tired, low energy: Nearly every day 5. Poor appetite, over-eating: Several Days 6. Feelings of failure, guilt: Not at all 7. Trouble concentrating: Not at all 8. Motor retardation, agitation: Not at all 9. Thoughts better off /hurting self: Not at all PHQ-9 total score = 8 1-4 = minimal symptoms 5-9= mild symptoms 10-14= moderate symptoms 15-19= moderately severe symptoms 20-27= severe depressive symptoms The patient stated that the depressive symptoms made it not at all difficult to do work, take care of things at home, or get along with others. PHQ-9 scores (past 180 days): 04/23/2024 8 02/19/2024 4 12/03/2023 5 ANXIETY SYMPTOMS (AWA-7) Patient reported being bothered by the following over the last two weeks: 1. Feeling nervous, anxious or on edge: Several days 2. Not being able to stop or control worrying: Nearly every day 3. Worrying too much about different things: Several days 4. Trouble relaxing: Not at all 5. Feeling restless (hard to sit still): Nearly every day 6. Becoming easily annoyed or irritable: Not at all 7. Afraid as if something awful might happen: Several days AWA-7 total score = 9 0-4=minimal symptoms 5-9=mild symptoms 10-14=moderate symptoms 15-21=severe symptoms The patient stated that the anxiety symptoms made it not at all difficult to do work, take care of things at home, or get along with others. AWA-7 scores (past 180 days): 04/23/2024 9 02/19/2024 12 PSYCHOPHARMACOLOGY The patient reports being prescribed a psychotropic medication. Side Effects and Adherence: In the last week, the patient reports the following when asked have you taken the medication(s) as prescribed: taking the medication as prescribed. The patient does not report symptoms suggestive of adverse effects of medication. School Leader called Anna for a follow-up PHQ-9, AWA-7, and assessment as is prescribed sertraline, trazodone and lorazepam for diagnoses of chronic anxiety, chronic depression, insomnia and PTSD. PTSD is a service connected condition. was called as a part of [facility] care management. Shared decision making for automobile and property underwriter's involvement happened at initial appointment. 's identity verified through name and . PHQ-9 Score: 4 Previous PHQ-9 SCORE- 5 AWA-7 Score: 9 Previous AWA-7 score 12 PHQ-9 Score today consistent with minimal level of depression. AWA-7 score today consistent with mild level of anxiety. Measurement based care results reviewed with and agreed with summation. PROBLEM: Current medical diagnoses, concerns: denied new acute medical concerns not already being addressed. Anna is of note still actively recovering from COVID Medication Concerns: denied side effects to trazodone, sertraline, and lorazepam. Anna reported she has taken two lorazepam in the past month. Mental and Sleep Status Changes since last contact: SLEEP: reported to chronically have poor insomnia related to anxiety. she reported having trouble falling asleep and staying asleep. gets about 4 hours. reports wakes up feeling very anxious and has racing thoughts. has reported that mindfulness practices has been helpful. Anna reported sometimes she feels rested and sometimes not. NIGHTMARES: denied concerns APPETITE: reported to be poor over past few weeks due to being sick with COVID HYGIENE: denied concerns ENERGY/MOTIVATION: reported her energy is slowly returning from having COVID, denied concerns with motivation MOOD: doing ok with depression, learning to manage anxiety PTSD: reported to be present, endorsed hypervigilance ANXIETY: reported has been present for so long it is just a part of her, major concern is the anxiety that has her jumping out of bed. tries to use mindfulness techniques to fall back asleep with mixed success PANIC ATTACKS: denied concerns DEPRESSION: reported to be sometimes of mild intensity and sometimes to be much more intense and to last most of the day. reported that doing something she likes and thinking about her grandchildren help ANGER/IRRITABILITY/AGGRES FCO: denied concerns WILBERT/HYPOMANIA: none observed or reported PSYCHOTIC FEATURES: none observed or reported SUICIDE: denied current active suicidal ideation/intent/plan reported to be using alpha stim AID device to good effect. denied need for supplies Effect of psychiatric symptoms on functioning: Anna reported her poor sleep has impact on her functioning and the anxiety, especially when overwhelming impacts her ability to function. Behavioral Activation/Pleasant Events Scheduling/ social interactions/exercise: reported to be doing Other Treatment(Psychotherapy/c ounselling, etc.): has been engaged in mindfulness group in the past. Suicidal Ideation: denied current active suicidal ideation/intent/plan. Progress towards goals: using mindfulness practices to help manage anxiety Education Provided: School Leader reinforced education previously provided about medication and reinforced psychoeducation previously provided. School Leader educated Anna about progressive muscle relaxation and how it sends signals to the brain to produce alpha waves, the waves that are a state of being alert and relaxed or alert and focused. was educated to skip any muscle group that is injured. Anna was sent instructions through [employer]. knows how to access emergency services should the need arise. PLAN: 1.Follow through with [facility] program as indicated: 06/08 at 0930 via telephone 2.Patient's stated action plan: will continue to take medication as prescribed and Anna will try progressive muscle relaxation. Summary of next steps/plan was provided to the . Outcome and recommendations will be discussed with the PCP and other relevant PACT team members, as needed. Consults were reviewed and no needs were identified Time Spent: 24 minutes spent on telephone and 10 minutes spent on chart review /jeana/ Irasema PORTER RN [facility] GAS COMPRESSOR TURBINE OPERATOR Signed: 04/24/2024 07:28 IRASEMA DAMON [facility]
--- OUTSIDE RECORDS SUMMARY | 2024-08-04 17:22 | XMS_ITS | Encounter Summary ---
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 Name Role Phone CADEN FELIZ Primary [...] PLAN I Aug 19, 2019 PLAN I [id number] [phone] MEEK,SABINE ICEL PATIENT [employer] OPTIONS MEDICARE SUPPLEMEN MARCIA PLANM Y Aug 19, 2019 PLANMY [id number] MEEK,GR ICEL PATIENT [employer] OPTIONS MEDICARE SUPPLEMEN MARCIA AARP MEDIC ARE SUPPL Aug 19, 2019 PLAN MY [id number] MEEK,SABINE ICEL PATIENT AARP INS MEDICARE SUPPLEMEN MARCIA PLANM Y Aug 19, 2019 PLANMY [id number] MEEK,GR ICEL PATIENT AARP MED SUPP MEDICARE SUPPLEMEN MARCIA Jul 19, 2010 PLANMY [id number] MEEK,GR ICEL PATIENT MEDICARE (WNR) MEDICARE () PART B Aug 19, 2008 PART B [id number] MEEK,GR ICEL PATIENT MEDICARE (WNR) MEDICARE () PART B Aug 19, 2008 PART B [id number] MEEK,GR ICEL PATIENT MEDICARE (WNR) MEDICARE () PART B Aug 19, 2008 PART B [id number] [phone] MEEK,GR ICEL PATIENT MEDICARE (WNR) MEDICARE () PART B Aug 19, 2008 PART B [id number] MEEK,GR ICEL PATIENT MEDICARE (WNR) MEDICARE () PART B Aug 19, 2008 PART B [id number] MEEK,GR ICEL PATIENT MEDICARE (WNR) MEDICARE () PART B Aug 19, 2008 PART B [id number] [phone] MEEK,GR ICEL PATIENT MEDICARE (WNR) MEDICARE () PART B Aug 19, 2008 PART B [id number] [phone] MEEK,GR ICEL PATIENT MEDICARE (WNR) MEDICARE () PART A December 18, 2003 PART A [id number] MEEK,GR ICEL PATIENT MEDICARE (WNR) MEDICARE () PART A December 18, 2003 PART A [id number] [phone] MEEK,GR ICEL PATIENT MEDICARE (WNR) MEDICARE () PART A December 18, 2003 PART A [id number] [phone] MEEK,GR ICEL PATIENT MEDICARE (WNR) MEDICARE () PART A December 18, 2003 PART A [id number] MEEK,GR ICEL PATIENT MEDICARE (WNR) MEDICARE () PART A December 18, 2003 PART A [id number] MEEK,GR ICEL PATIENT MEDICARE (WNR) MEDICARE () PART A December 18, 2003 PART A [id number] [phone] SABINE MEEK PATIENT MEDICARE (WNR) MEDICARE (M) PART A December 18, 2003 PART A [id number] SABINE MEEK PATIENT Selected Encounter This section includes the information on record at [place] for the Encounter. Date/Time Encounter Type Encounter Description Reason Pro vider Source Apr 13, 2024 01:00 PM Outpatient Encounter [facility] Encounter Template Text not used by [place] Plan of Treatment: Future Appointments (+ 6 months) and Future Tests (+/- 45 days) The Plan of Treatment section includes future care activities for the patient [facility] [place] [facility] This section includes future appointments and future orders which are active, pending or scheduled. Future Appointments This section includes appointments that were scheduled to occur 6 months from the date of the Encounter, up to a maximum of 20 appointments. The data comes from all [place] treatment facilities. Appointment Date/Time Appointment Type Appointme nt Facility Name Apr 23, 2024 08:40 AM AMBULATORY [facility]ATRY [facility] [place] [facility] May 08, 2024 08:00 AM AMBULATORY - MEDICINE [place] [facility] [place] [facility] May 11, 2024 01:00 PM AMBULATORY - PS[facility]CHIATRY [facility] [place] [facility] May 18, 2024 01:00 PM AMBULATORY - PS[facility]CHIATRY [facility] [place] [facility] May 20, 2024 09:30 AM AMBULATORY - MEDICINE [place] [facility] [place] [facility] May 25, 2024 01:00 PM AMBULATORY - PS[facility]CHIATRY [facility] [place] [facility] Jun 08, 2024 09:30 AM AMBULATORY - PSYCHIATRY [facility] [place] [facility] Jun 08, 2024 01:00 PM AMBULATORY - PSYCHIATRY [facility] [place] [facility] Jun 15, 2024 01:00 PM AMBULATORY - PSYCHIATRY [facility] [place] [facility] Jun 19, 2024 09:00 AM AMBULATORY - PSYCHIATRY [facility] [place] [facility] Jun 27, 2024 09:30 AM AMBULATORY - MEDICINE [place] [facility] [place] [facility] Jul 06, 2024 01:00 PM AMBULATORY - PSYCHIATRY [facility] [place] [facility] Jul 13, 2024 11:30 AM AMBULATORY - MEDICINE [facility] [place] [facility] Jul 13, 2024 01:00 PM AMBULATORY - PSYCHIATRY [facility] [place] [facility] Jul 20, 2024 09:30 AM AMBULATORY - PSYCHIATRY [facility] [place] [facility] Jul 21, 2024 09:30 AM AMBULATORY - MEDICINE [facility] [place] [facility] Jul 22, 2024 09:00 AM AMBULATORY - PSYCHIATRY [facility] [place] [facility] Jul 27, 2024 01:00 PM AMBULATORY - PSYCHIATRY [facility] [place] [facility] Aug 07, 2024 08:00 AM AMBULATORY - MEDICINE [facility] [place] [facility] Aug 07, 2024 09:45 AM [facility] - NONE [facility] Active, Pending, and Scheduled Orders This section includes a listing of several types of active, pending, and scheduled orders, including clinic medications orders, diagnostic test orders, procedure orders and consult orders; where the start date of the order is 45 days before the date of the Encounter or 45 days after the date of theEncounter. The data comes from all [place] treatment facilities. Test Date/Time Test Type Test Details Facility Name Feb 28, 2024 12:49 PM Consult Order COMMUNITY CARE-CARDIOLOGY [place] [facility] [place] [facility] [place] [facility] Apr 21, 2024 10:05 AM Consult Order COMMUNITY CARE-MAMMOGRAPHY FEMALE SCREEN [facility] [place] [facility] [place] [facility] May 28, 2024 09:28 AM Consult Order COMMUNITY CARE-DENTAL SPECIALTY [facility] [place] [facility] Lab Results: +/- 30 days of the encounter This section includes the Chemistry and Hematology Lab Results on record with [place] for the patient. Radiology Reports and Pathology Reports are provided separately, in subsequent sections. Lab Results This section contains the Chemistry/Hematology Results that were resulted 30 days before or 30 daysafter the date of the Encounter. Date/Time Source Result Type Result - Unit Interpretation Reference Range Comment Apr 06, 2024 01:21 PM [place] [facility] COVID-19 FLU/RSV DIAGNOSTIC PANEL Specimen Type: [...] patient management decisions.Mary siddiqi FLUVID: HCPs: https://www.fda. gov/media/126906 /download. Patients: [email or web address]://www.fda. gov/media/979022 /download NOTIFIED DR FELIZ 04/06/24@1552 BY EMAILED TO [facility] FAXED TO [facility] Ordering Provider: CADEN FELIZ Report Released Date/Time: Apr 06, 2024 12:55 PM Reporting Lab: [address] [address] Performing Lab: [address] [address] COVID-19 PCR (FLUVID) POSITIVE HH NEGATIVE FLU A PCR (FLUVID) NEGATIVE FLU B PCR (FLUVID) NEGATIVE RSV PCR (FLUVID) NEGATIVE Apr 06, 2024 01:21 PM [facility] SARS-COV-2 VARIANT SEQ PNL(WHV) Specimen Type: NASOPHARYNX Comment: -Pangolin version 4.3.1 (data version 09.16.0) -Nextclade version 3.8.2 (data version 2024-03-04) https://www.cdc. gov/coronavirus/ 2019-ncov/cases- updates/variant- surveillance/jv iant-info.html The RumbleTalk SARS CoV 2 Insight Research Assay-GX is a next-generation sequencing (NGS) assay that determines the complete genome sequence of the SARS-CoV-2 virus. The assay contains variant-tolerant primers to broaden and improve the coverage for variant detection and increase the sensitivity of the panel to enable detection from lower viral titer samples. The assay is run on the Cardeeo Sequencer, which performs automated library preparation, sequencing, analysis, and reporting. The sequence analysis includes determination of viral phylogenetic lineage by comparison to the reference strain Wu[place]-Hu-1, GenBank: [id number]. Sequence determination may not be possible owing to inadequate quantity or quality of the viral RNA in the original specimen. Sequencing will not be attempted if the SARS-CoV-2 PCR assay result has a Ct > 30. Note that phylogenetic lineage assignment in some cases may private branch exchange operator time for the same sequence as the [...] Apr 27, 2024 11:46 AM Reporting Lab: [facility] [address] [address] Performing Lab: [facility] [address] [facility] [address] SARS-COV-2 Lineage(WHV) MC.1 SARS-COV-2 Clade(WHV) 24C (Omicron) Social History: Smoking Status (Most current) and Tobacco Use (All prior to encounter date) This section includes the most current, and the historical, smoking and tobacco- related health factors from the [place] facility where the Encounter took place. Current Smoking Status This section includes the most current smoking, or tobacco-related health factor, from the [place] facility where the Encounter took place. Date/Time Current Smoking Status Comment [facility] it Apr 06, 2024 12:30 PM VA-TOBACCO FORMER USER [facility] Tobacco Use History This section includes a history of the smoking, or tobacco-related health factors, that were collected on or before the date of the Encounter. The data comes from the [place] facility where the Encounter took place. Date/Time Smoking Status/Tobac co Use Comment Facility Apr 06, 2024 12:30 PM [place]-TOBACCO QUIT 15 YRS OR MORE [facility] Feb 08, 2023 10:00 AM VA-TOBACCO FORMER USER [facility] [place] [facility] Feb 08, 2023 10:00 AM VA-TOBACCO QUIT 15 YRS OR MORE [facility] [place] [facility] Mar 06, 2022 02:30 PM VA-TOBACCO FORMER USER [facility] [place] [facility] Mar 06, 2022 02:30 PM VA-TOBACCO QUIT 15 YRS OR MORE [facility] [place] [facility] Apr 04, 2021 10:28 AM VA-TOBACCO NEVER USED [facility] [place] [facility] May 03, 2020 02:00 PM VA-TOBACCO NEVER USED [facility] [place] [facility] Feb 25, 2019 08:14 AM VA-TOBACCO FORMER USER [facility] [place] [facility] Feb 25, 2019 08:14 AM VA-TOBACCO QUIT 5 TO < 15 YRS [facility] [place] [facility] Apr 04, 2018 10:41 AM QUIT TOBACCO USE 1-7 YEARS AGO [facility] [place] [facility] Oct 28, 2017 10:18 AM QUIT TOBACCO USE 1-7 YEARS AGO [facility] [place] [facility] Jan 22, 2017 01:08 PM QUIT TOBACCO USE 1-7 YEARS AGO [facility] [place] [facility] Jul 18, 2016 01:34 PM QUIT TOBACCO USE 1-7 YEARS AGO [facility] [place] [facility] January 10, 2016 10:32 AM QUIT TOBACCO USE 1-7 YEARS AGO [facility] [place] [facility] Oct 13, 2015 11:05 AM QUIT TOBACCO USE 1-7 YEARS AGO [facility] [place] [facility] Oct 19, 2014 01:53 PM QUIT TOBACCO USE > 7 YEARS AGO [facility] [place] [facility] January 02, 2014 01:30 AM QUIT TOBACCO USE IN PAST YEAR [facility] [place] [facility] Jun 18, 2013 09:00 AM CURRENT SMOKER 6 cigarettes qd [facility] [place] [facility] Jun 18, 2013 09:00 AM V1-PT DECLINES TOBACCO CESSATION MEDS [facility] [place] [facility] Jun 18, 2013 09:00 AM V1-PT NOT INTERESTED IN QUIT TOBACCO USE [facility] December 24, 2012 10:51 AM V1-PT DECLINES REF TO TOBACCO CESS [facility] December 24, 2012 10:51 AM V1-PT DECLINES TOBACCO CESSATION MEDS [facility] December 24, 2012 10:51 AM V1-PT THINKING ABOUT QUIT [facility]BACCO USE [facility] Jul 15, 2012 10:19 AM QUIT TOBACCO USE IN PAST YEAR [facility] Jan 25, 2012 05:02 PM QUIT TOBACCO USE IN PAST YEAR [facility] Sep 28, 2011 10:09 AM CURRENT SMOKER 5 cigarettes a day [facility] Jun 15, 2011 02:23 PM V1-PT DECLINES REF TO TOBACCO CESS [facility] Jun 15, 2011 02:23 PM V1-PT READY TO QUIT TOBACCO USE [facility] Apr 13, 2011 10:31 AM V1-PT DECLINES REF TO TOBACCO CESS [facility] Apr 13, 2011 10:31 AM V1-PT RECEIVES TOBACCO CESS MEDS OUTSIDE [facility] Apr 13, 2011 10:31 AM V1-PT THINKING ABOUT QUIT TOBACCO USE [facility] Oct 16, 2010 08:52 AM QUIT TOBACCO USE IN PAST YEAR [facility] May 12, 2010 02:08 PM V1-PT DECLINES REF TO TOBACCO CESS PRGM [facility] May 12, 2010 02:08 PM V1-PT READY TO QUIT TOBACCO USE [facility] May 12, 2010 12:45 PM CURRENT SMOKER 3 cigarettes a day [facility] Encounter Notes: All associated encounter notes This section contains the clinical notes associated to the Encounter. Date/Time Encounter Note(s) Provider Source Apr 13, 2024 02:31 PM ADMINISTRATIVE NOT E: LOCAL TITLE: ADMINISTRATIVE NOTE STANDARD TITLE: ADMINISTRATIVE NOTE DATE OF NOTE: APR 13, 2024@14:31 ENTRY DATE: APR 13, 2024@14:31:45 AUTHOR: LO GIBBS EXP COSIGNER: URGENCY: STATUS: COMPLETED ADMINISTRATIVE NOTE Has ADDENDA left a VM to inform designer writer that she is unable to attend today's [facility] appointment due to physical illness with COVID19. indicated a potential need to pause participation in the group. Called back expressed appreciation. Requested a call to discuss a potential pause in participation in order to ask clarifying questions and not assume her wants and needs. Provided contact information. /jeana/ Lo Gibbs PhD Clinical Psychologist, [facility] Signed: 04/13/2024 14:34 05/04/2024 ADDENDUM STATUS: COMPLETED Made second outreach to . Was not able to reach , thus left a VM briefly explaining purpose of call, providing contact information, and asking [place] to call designer writer regarding her interest and availability to continue in the [facility]. /jeana/ Lo Gibbs PhD Clinical Psychologist, [facility] Signed: 05/04/2024 14:29 05/05/2024 ADDENDUM STATUS: COMPLETED called and discussed ambivalence about returning to the [facility] given desire to isolate. 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 Thus, agreed for her to return and scheduled two group appointments. Bosworth committed to call to cancel if/when she cannot attend. No evidence of imminent risk. [place] expressed appreciation for the follow up from designer writer. /jeana/ Lo Gibbs PhD Clinical Psychologist, [facility] Signed: 05/05/2024 10:26 LO GIBBS [place] [facility]
--- OUTSIDE RECORDS SUMMARY | 2024-08-04 17:23 | XMS_ITS | Encounter Summary ---
Author Name [facility] [place] [place] [facility] [place] Organization [facility] [place] Address [address] [place] [address] Care Team Providers Care Medical Laboratory Technologist Name Role Phone CADEN FELIZ Primary Care [...] PLAN I Aug 19, 2019 PLAN I [id number] [phone] MEEK,SABINE ICEL PATIENT [employer] OPTIONS MEDICARE SUPPLEMEN MARCIA PLANM Y Aug 19, 2019 PLANMY [id number] MEEK,GR ICEL PATIENT [employer] OPTIONS MEDICARE SUPPLEMEN MARCIA AARP MEDIC ARE SUPPL Aug 19, 2019 PLAN MY [id number] [phone] MEEK,SABINE ICEL PATIENT AARP INS MEDICARE SUPPLEMEN MARCIA PLANM Y Aug 19, 2019 PLANMY [id number] MEEK,GR ICEL PATIENT AARP MED SUPP MEDICARE SUPPLEMEN MARCIA Jul 19, 2010 PLANMY [id number] MEEK,GR ICEL PATIENT MEDICARE (WNR) MEDICARE () PART B Aug 19, 2008 PART B [id number] MEEK,GR ICEL PATIENT MEDICARE (WNR) MEDICARE () PART B Aug 19, 2008 PART B [id number] MEEK,GR ICEL PATIENT MEDICARE (WNR) MEDICARE () PART B Aug 19, 2008 PART B [id number] [phone] MEEK,GR ICEL PATIENT MEDICARE (WNR) MEDICARE () PART B Aug 19, 2008 PART B [id number] MEEK,GR ICEL PATIENT MEDICARE (WNR) MEDICARE () PART B Aug 19, 2008 PART B [id number] [phone] MEEK,GR ICEL PATIENT MEDICARE (WNR) MEDICARE () PART B Aug 19, 2008 PART B [id number] [phone] MEEK,GR ICEL PATIENT MEDICARE (WNR) MEDICARE () PART B Aug 19, 2008 PART B [id number] [phone] MEEK,GR ICEL PATIENT MEDICARE (WNR) MEDICARE () PART A December 18, 2003 PART A [id number] [phone] MEEK,GR ICEL PATIENT MEDICARE (WNR) MEDICARE () PART A December 18, 2003 PART A [id number] MEEK,GR ICEL PATIENT MEDICARE (WNR) MEDICARE () PART A December 18, 2003 PART A [id number] [phone] MEEK,GR ICEL PATIENT MEDICARE (WNR) MEDICARE () PART A December 18, 2003 PART A [id number] MEEK,GR ICEL PATIENT MEDICARE (WNR) MEDICARE () PART A December 18, 2003 PART A [id number] [phone] MEEK,GR ICEL PATIENT MEDICARE (WNR) MEDICARE () PART A December 18, 2003 PART A [id number] SABINE MEEK PATIENT MEDICARE (WNR) MEDICARE (M) PART A December 18, 2003 PART A [id number] SABINE MEEK PATIENT Selected Encounter This section includes the information on record at [place] for the Encounter. Date/Time Encounter Type Encounter Description Reason Pro vider Source May 18, 2024 12:44 PM Outpatient Encounter PRIMARY CARE/MEDICINE IHE Encounter Template Text not used by [place] Plan of Treatment: Future Appointments (+ 6 months) and Future Tests (+/- 45 days) The Plan of Treatment section includes future care activities for the patient [facility] [place] [facility] This section includes future appointments and future orders which are active, pending or scheduled. Future Appointments This section includes appointments that were scheduled to occur 6 months from the date of the Encounter, up to a maximum of 20 appointments. The data comes from all [place] treatment facilities. Appointment Date/Time Appointment Type Appointme nt Facility Name May 20, 2024 09:30 AM AM[place]ULATORY [place]ICINE [place] [facility] [place] [facility] May 25, 2024 01:00 PM AMBULATORY - [place]IATRY [place] [facility] [place] [facility] Jun 08, 2024 09:30 AM AMBULATORY [place]ATRY [place] [facility] [place] [facility] Jun 08, 2024 01:00 PM AMBULATORY - PS[place]IATRY [facility] [place] [facility] Jun 15, 2024 01:00 PM AMBULATORY [place] PS[place]IATRY [facility] [place] [facility] Jun 19, 2024 09:00 AM AMBULATORY [place]ATRY [place] [facility] [place] [facility] Jun 27, 2024 09:30 AM AMBULATORY [place]ICINE [place] [facility] [place] [facility] Jul 06, 2024 01:00 PM AMBULATORY [place]IATRY [place] [facility] [place] [facility] Jul 13, 2024 11:30 AM AMBULATORY - [place]ICINE [place] [facility] [place] [facility] Jul 13, 2024 01:00 PM AMBULATORY - PS[place]IATRY [place] [facility] [place] [facility] Jul 20, 2024 09:30 AM AMBULATORY [place]ATRY [place] [facility] [place] [facility] Jul 21, 2024 09:30 AM AM[place]ULATORY [place]ICINE [place] [facility] [place] [facility] Jul 22, 2024 09:00 AM AM[place]UL[place]ORY [place] [facility] [place] [facility] Jul 27, 2024 01:00 PM AMBUL[place]ORY [place] [facility] [place] [facility] Aug 07, 2024 08:00 AM AM[place]ORY [place]IC[place] [facility] [place] [facility] Aug 07, 2024 09:45 [facility] [place] [facility] Sep 23, 2024 09:00 AM [facility] [place] [facility] Oct 02, 2024 02:30 PM AMBULATORY - MEDICINE [facility] Oct 06, 2024 11:30 AM AMBULATORY - MEDICINE [facility] Active[facility] Pending, and Scheduled Orders [...] Consult Order COMMUNITY CARE-MAMMOGRAPHY FEMALE SCREEN Cons Die [facility] May 28, 2024 09:28 AM Consult Order COMMUNITY CARE-DENTAL SPECIALTY Cons Die [facility] Jun 26, 2024 01:51 PM Consult Order COMMUNITY CARE-ACUPUNCTURE Cons Die [facility] Social History: Smoking Status (Most [...] Date/Time Current Smoking Status Comment Rosamaria zepeda Apr 06, 2024 12:30 PM [facility]-TOBACCO [facility] Tobacco Use History This section includes a history of the smoking, or tobacco-related health factors, that were collected on or before the date of the Encounter. The data comes from the [place] facility where the Encounter took place. Date/Time Smoking Status/Tobac co Use Comment Facility Apr 06, 2024 12:30 PM VA-TOBACCO QUIT 15 YRS OR MORE [facility] [place] [facility] Feb 08, 2023 10:00 AM VA-TOBACCO FORMER USER [facility] [place] [facility] Feb 08, 2023 10:00 AM VA-TOBACCO QUIT 15 YRS OR MORE [facility] [place] [facility] Mar 06, 2022 02:30 PM VA-TOBACCO FORMER USER [facility] [place] [facility] Mar 06, 2022 02:30 PM VA-TOBACCO QUIT 15 YRS OR MORE [facility] [place] [facility] Apr 04, 2021 10:28 AM VA-TOBACCO NEVER USED [facility] [place] [facility] May 03, 2020 02:00 PM VA-TOBACCO NEVER USED [place] [facility] [place] [facility] Feb 25, 2019 08:14 AM VA-TOBACCO FORMER USER [facility] [place] [facility] Feb 25, 2019 08:14 AM VA-TOBACCO QUIT 5 TO < 15 YRS [facility] [place] [facility] Apr 04, 2018 10:41 AM QUIT TOBACCO USE 1-7 YEARS AGO [facility] [place] [facility] Oct 28, 2017 10:18 AM QUIT TOBACCO USE 1-7 YEARS AGO [facility] [place] [facility] Jan 22, 2017 01:08 PM QUIT TOBACCO USE 1-7 YEARS AGO [facility] [place] [facility] Jul 18, 2016 01:34 PM QUIT TOBACCO USE 1-7 YEARS AGO [facility] [place] [facility] January 10, 2016 10:32 AM QUIT TOBACCO USE 1-7 YEARS AGO [facility] [place] [facility] Oct 13, 2015 11:05 AM QUIT TOBACCO USE 1-7 YEARS AGO [facility] [place] [facility] Oct 19, 2014 01:53 PM QUIT TOBACCO USE > 7 YEARS AGO [facility] [place] [facility] January 02, 2014 01:30 AM QUIT TOBACCO USE IN PAST YEAR [facility] [place] [facility] Jun 18, 2013 09:00 AM CURRENT SMOKER 6 cigarettes qd [facility] [place] [facility] Jun 18, 2013 09:00 AM V1-PT DECLINES TOBACCO CESSATION MEDS [facility] [place] [facility] Jun 18, 2013 09:00 AM V1-PT NOT INTERESTED IN QUIT TOBACCO USE [facility] [place] [facility] December 24, 2012 10:51 AM V1-PT DECLINES REF TO TOBACCO CESS PRGM [facility] [place] [facility] December 24, 2012 10:51 AM V1-PT DECLINES TOBACCO CESSATION MEDS [facility] [place] [facility] December 24, 2012 10:51 AM V1-PT THINKING ABOUT QUIT [facility] [place] [facility] Jul 15, 2012 10:19 AM QUIT TOBACCO USE IN PAST YEAR [facility] Jan 25, 2012 05:02 PM QUIT TOBACCO USE IN PAST YEAR [facility] Sep 28, 2011 10:09 AM CURRENT SMOKER 5 cigarettes a day [facility] [place] [facility] Jun 15, 2011 02:23 PM V1-PT DECLINES REF TO TOBACCO CESS PRGM [facility] Jun 15, 2011 02:23 PM V1-PT READY TO QUIT TOBACCO USE [facility] Apr 13, 2011 10:31 AM V1-PT DECLINES REF TO TOBACCO CESS [facility] Apr 13, 2011 10:31 AM V1-PT RECEIVES TOBACCO CESS MEDS [facility] Apr 13, 2011 10:31 AM V1-PT THINKING ABOUT QUIT TOBACCO USE [facility] [place] [place] [facility] Oct 16, 2010 08:52 AM QUIT TOBACCO USE IN PAST YEAR [facility] [place] [facility] May 12, 2010 02:08 PM V1-PT DECLINES REF TO TOBACCO CESS PRGM [facility] [place] [facility] May 12, 2010 02:08 PM V1-PT READY TO QUIT TOBACCO USE [facility] May 12, 2010 12:45 PM CURRENT SMOKER 3 cigarettes a day [facility] Encounter Notes: All associated encounter notes This section contains the clinical notes associated to the Encounter. Date/Time Encounter Note(s) Provider Source May 18, 2024 01:53 PM ADDENDUM: LOCAL TITLE: Addendum STANDARD TITLE: ADDENDUM DATE OF NOTE: MAY 18, 2024@13:53:45 ENTRY DATE: MAY 18, 2024@13:53:46 AUTHOR: KIET FRANCIS EXP COSIGNER: URGENCY: STATUS: COMPLETED Requesting: FORMOTEROL 5/MOMETASONE 200MCG 120D INHL [id number] 01/08/2023 12/09/2023 (9) SIG: INHALE 2 PUFFS BY MOUTH TWICE DAILY FOR CONTROLLER MEDICATION FOR ASTHMA Indication: FOR CONTROLLER MEDICATION FOR ASTHMA Provider: CADEN FELIZ Cost/Fill: $117.84 Exp/Can Dt: 01/09/2024 ALBUTEROL 3/IPRATROP 0.5MG/3ML INHL 3ML [id number] 120 01/08/2023 10/02/2023 (4) SIG: INHALE 1 AMPULE IN NEBULIZER EVERY THREE HOURS NEEDED FOR BRONCHOSPASM Indication: FOR BRONCHOSPASM Provider: CADEN FELIZ Cost/Fill: $612.00 Exp/Can Dt: 01/09/2024 XX Please Mail /jeana/ YING PIEDRA, RN, CNL PRIMARY CARE TEAM NURSE Signed: 05/18/2024 13:55 Receipt Acknowledged By: 05/18/2024 17:00 /mega FELIZ M.D. PHYSICIAN ========= --- Original Document --- 05/18/24 WALK-IN NOTE PRIMARY CARE (T): <====Click to Start Advanced Medical Support [place] presents to the Primary Care clinic with the following request: [ X ]Medication Renewal/Refill is requesting her inhalers and would like to have mailed. [ ]Consultation with Team RN [ ]Symptoms [ ]Other The states they are: [ ]Waiting [ X ]Not Waiting No Walk in visit scheduled with PACT Nurse [ X ] At this encounter the 's demographics were verified. [ X ] At this encounter the 's Insurance information was verified. [ X ] At this encounter the below scheduled visits for the were discussed and appointment reminder card was offered. Future appointments: 05/18/2024 13:00 NHM/MHC/MINDFULNESS GRP 05/20/2024 09:30 COM CARE-DENTAL SPECIAL 05/25/2024 13:00 NHM/MHC/MINDFULNESS GRP 05/27/2024 09:00 CWM/NO/PCMHI/PSYCHOLOGI ST 06/08/2024 09:30 NHM/PCMHI/SPRING REPAIRER HELPER HAND-TELEPH 06/08/2024 13:00 NHM/MHC/MINDFULNESS GRP 06/15/2024 13:00 NHM/MHC/MINDFULNESS GRP 07/13/2024 11:30 NHM/OPTOMETRY/BORASKI 08/07/2024 08:00 CWM/NO/PACT 6 WH 08/07/2024 09:45 NHM DENTAL RDH 2 AM NEW 10/02/2024 14:30 COM CARE-MAMMO FEM SCRN 10/06/2024 11:30 CWM/NO/PODIATRY A /jeana/ CHAI HAMMOND Signed: 05/18/2024 12:45 Receipt Acknowledged By: 05/18/2024 13:58 /es/ KIET FRANCIS, YING, RN, CNL PRIMARY CARE TEAM NURSE 05/18/2024 15:36 /es/ Maricarmen De La Garza RN Primary Care Staff Nurse KIET FRANCIS [place] [facility] [place] [facility] May 18, 2024 12:44 PM PRIMARY CARE NOTE: LOCAL TITLE: WALK-IN NOTE PRIMARY CARE (T) STANDARD TITLE: PRIMARY CARE NOTE DATE OF NOTE: MAY 18, 2024@12:44 ENTRY DATE: MAY 18, 2024@12:44:30 AUTHOR: CHAI GOSS EXP COSIGNER: URGENCY: STATUS: COMPLETED WALK-IN NOTE PRIMARY CARE (T) Has ADDENDA <====Click to Start Advanced Medical Support [place] presents to the Primary Care clinic with the following request: [ X ]Medication Renewal/Refill [place] is requesting her inhalers and would like to have mailed. [ ]Consultation with Team RN [ ]Symptoms [ ]Other The [place] states they are: [ ]Waiting [ X ]Not Waiting No Walk in visit scheduled with PACT Nurse [ X ] At this encounter the 's demographics were verified. [ X ] At this encounter the 's Insurance information was verified. [ X ] At this encounter the below scheduled visits for the [place] were discussed and appointment reminder card was offered. Future appointments: 05/18/2024 13:00 NHM/MHC/MINDFULNESS GRP 05/20/2024 09:30 COM CARE-DENTAL SPECIAL 05/25/2024 13:00 NHM/MHC/MINDFULNESS GRP 05/27/2024 09:00 CWM/NO/PCMHI/PSYCHOLOGI ST 06/08/2024 09:30 NHM/PCMHI/SPRING REPAIRER HELPER HAND-TELEPH 06/08/2024 13:00 NHM/MHC/MINDFULNESS GRP 06/15/2024 13:00 NHM/MHC/MINDFULNESS GRP 07/13/2024 11:30 NHM/OPTOMETRY/BORASKI 08/07/2024 08:00 CWM/NO/PACT 6 WH 08/07/2024 09:45 NHM DENTAL RDH 2 AM NEW 10/02/2024 14:30 COM CARE-MAMMO FEM SCRN 10/06/2024 11:30 CWM/NO/PODIATRY A /es/ CHAI HAMMOND Signed: 05/18/2024 12:45 Receipt Acknowledged By: 05/18/2024 13:58 /es/ KIET FRANCIS, MSN, RN, CNL PRIMARY CARE TEAM NURSE 05/18/2024 15:36 /es/ Maricarmen De La Garza, logistics associate Staff Nurse 05/18/2024 ADDENDUM STATUS: COMPLETED Requesting: FORMOTEROL 5/MOMETASONE 200MCG 120D INHL [id number] 1 01/08/2023 12/09/2023 (9) SIG: INHALE 2 PUFFS BY MOUTH TWICE DAILY FOR CONTROLLER MEDICATION FOR ASTHMA Indication: FOR CONTROLLER MEDICATION FOR ASTHMA Provider: CADEN FELIZ Cost/Fill: $117.84 Exp/Can Dt: 01/09/2024 ALBUTEROL 3/IPRATROP 0.5MG/3ML INHL 3ML [id number] 120 01/08/2023 10/02/2023 (4) SIG: INHALE 1 AMPULE IN NEBULIZER EVERY THREE HOURS NEEDED FOR BRONCHOSPASM Indication: FOR BRONCHOSPASM Provider: CADEN FELIZ Cost/Fill: $612.00 Exp/Can Dt: 01/09/2024 XX Please Mail /es/ KIET FRANCIS, MSN, RN, CNL PRIMARY CARE TEAM NURSE Signed: 05/18/2024 13:55 Receipt Acknowledged By: * AWAITING SIGNATURE * CAD[facility]IZ [facility]
--- OUTSIDE RECORDS SUMMARY | 2024-08-04 17:23 | XMS_ITS | Encounter Summary ---
Author Name [facility] [place] [facility] [facility] [place] Address [address] [place] [address] Care Team Providers Care Wheat Washer Name Role Phone CADEN FELIZ Primary Care [...] PLAN I Aug 19, 2019 PLAN I [id number] MEEK,GR ICEL PATIENT [employer] OPTIONS MEDICARE SUPPLEMEN MARCIA PLANM Y Aug 19, 2019 PLANMY [id number] MEEK,GR ICEL PATIENT [employer] OPTIONS MEDICARE SUPPLEMEN MARCIA AARP MEDIC ARE SUPPL Aug 19, 2019 PLAN MY [id number] MEEK,GR ICEL PATIENT AARP INS MEDICARE SUPPLEMEN MARCIA PLANM Y Aug 19, 2019 PLANMY [id number] MEEK,GR ICEL PATIENT AARP MED SUPP MEDICARE SUPPLEMEN MARCIA Jul 19, 2010 PLANMY [id number] [phone] MEEK,GR ICEL PATIENT MEDICARE (WNR) MEDICARE () PART B Aug 19, 2008 PART B [id number] MEEK,GR ICEL PATIENT MEDICARE (WNR) MEDICARE () PART B Aug 19, 2008 PART B [id number] [phone] MEEK,GR ICEL PATIENT MEDICARE (WNR) MEDICARE () PART B Aug 19, 2008 PART B [id number] MEEK,GR ICEL PATIENT MEDICARE (WNR) MEDICARE () PART B Aug 19, 2008 PART B [id number] MEEK,GR ICEL PATIENT MEDICARE (WNR) MEDICARE () PART B Aug 19, 2008 PART B [id number] MEEK,GR ICEL PATIENT MEDICARE (WNR) MEDICARE () PART B Aug 19, 2008 PART B [id number] MEEK,GR ICEL PATIENT MEDICARE (WNR) MEDICARE () PART B Aug 19, 2008 PART B [id number] [phone] MEEK,GR ICEL PATIENT MEDICARE (WNR) MEDICARE () PART A December 18, 2003 PART A [id number] MEEK,GR ICEL PATIENT MEDICARE (WNR) MEDICARE () PART A December 18, 2003 PART A [id number] [phone] MEEK,GR ICEL PATIENT MEDICARE (WNR) MEDICARE () PART A December 18, 2003 PART A [id number] [phone] MEEK,GR ICEL PATIENT MEDICARE (WNR) MEDICARE () PART A December 18, 2003 PART A [id number] MEEK,GR ICEL PATIENT MEDICARE (WNR) MEDICARE () PART A December 18, 2003 PART A [id number] MEEK,GR ICEL PATIENT MEDICARE (WNR) MEDICARE () PART A December 18, 2003 PART A [id number] SABINE MEEK PATIENT MEDICARE (WNR) MEDICARE (M) PART A December 18, 2003 PART A [id number] SABINE MEEK PATIENT Selected Encounter This section includes the information on record at [place] for the Encounter. Date/Time Encounter Type Encounter Description Reason Provider Source May 11, 2024 01:00 PM [facility] ICD-10-CM F43.12 Post-traumati c stress disorder, chronic MARY GIBBS E IHE Encounter Template Text not used by [place] Assessments - Encounter Diagnoses This section includes the primary and secondary diagnoses documented for the Encounter. Date/Time Primary/Secondary Diagnosis Diagnosis Name Provider Source May 11, 2024 02:58 PM PRIMARY Post-traumatic stress disorder, chronic MARY GIBBS [place] [facility] [place] [facility] Plan of Treatment: Future Appointments (+ 6 months) and Future Tests (+/- 45 days) The Plan of Treatment section includes future care activities for the patient from all [place] [facility]. This section includes future appointments and future orders which are active, pending or scheduled. Future Appointments This section includes appointments that were scheduled to occur 6 months from the date of the Encounter, up to a maximum of 20 appointments. The data comes from all [place] treatment facilities. Appointment Date/Time Appointment Type Appointme nt Facility Name May 18, 2024 01:00 PM AMBULATORY [place]RY [place] [facility] [place] [facility] May 20, 2024 09:30 AM AMBULATORY - MEDICINE [facility] [place] [facility] May 25, 2024 01:00 PM AM[place] [facility] [place] [facility] Jun 08, 2024 09:30 AM [place] [facility] [place] [facility] Jun 08, 2024 01:00 PM [place] [facility] [place] [facility] Jun 15, 2024 01:00 PM [place] [facility] [place] [facility] Jun 19, 2024 09:00 AM [place] [facility] [place] [facility] Jun 27, 2024 09:30 AM AM[place]ULATORY [place]ICINE [place] [facility] [place] [facility] Jul 06, 2024 01:00 PM [facility] [place] [facility] [place] [facility] Jul 13, 2024 11:30 AM [facility] [place] [facility] Jul 13, 2024 01:00 PM AM[facility]UL[facility] [place] [facility] Jul 20, 2024 09:30 AM [facility] [place] [facility] Jul 21, 2024 09:30 AM [facility]INE [facility] [place] [facility] Jul 22, 2024 09:00 AM AMBUL[facility]ATRY [facility] [place] [facility] Jul 27, 2024 01:00 PM AMBUL[facility]ATRY [facility] [place] [facility] Aug 07, 2024 08:00 AM [facility]ICINE [facility] [place] [facility] Aug 07, 2024 09:45 AM AMBULATORY - NONE [facility] [place] [facility] Sep 23, 2024 09:00 AM AMBULATORY [facility] PS[facility]ATRY [facility] [place] [facility] Oct 02, 2024 02:30 PM [facility]ORY [facility]INE [facility] [place] [facility] Oct 06, 2024 11:30 AM AM[place]ULATORY [place]ICINE [place] [facility] [place] [facility] Active, Pending, and Scheduled Orders This [...] Consult Order COMMUNITY CARE-MAMMOGRAPHY FEMALE SCREEN Cons [employer] [place] [facility] [place] [facility] May 28, 2024 09:28 AM Consult Order COMMUNITY CARE-DENTAL SPECIALTY [facility] [employer] [employer] [facility] [place] [facility] [place] [facility] Social History: Smoking Status (Most [...] took place. Date/Time Current Smoking Status Comment [facility] Apr 06, 2024 12:30 PM VA-TOBACCO FORMER USER [place] [facility] [place] [facility] Tobacco Use History This section includes a history of the smoking, or tobacco-related health factors, that were collected on or before the date of the Encounter. The data comes from the [place] facility where the Encounter took place. Date/Time Smoking Status/Tobac co Use Comment Facility Apr 06, 2024 12:30 PM VA-TOBACCO QUIT 15 YRS OR MORE [facility] [place] [facility] Feb 08, 2023 10:00 AM VA-TOBACCO FORMER USER [facility] [place] [facility] Feb 08, 2023 10:00 AM VA-TOBACCO QUIT 15 YRS OR MORE [facility] [place] [facility] Mar 06, 2022 02:30 PM VA-TOBACCO FORMER USER [facility] [place] [facility] Mar 06, 2022 02:30 PM VA-TOBACCO QUIT 15 YRS OR MORE [facility] [place] [facility] Apr 04, 2021 10:28 AM VA-TOBACCO NEVER USED [place] [facility] [place] [facility] May 03, 2020 02:00 PM VA-TOBACCO NEVER USED [place] [facility] [place] [facility] Feb 25, 2019 08:14 AM VA-TOBACCO FORMER USER [facility] [place] [facility] Feb 25, 2019 08:14 AM VA-TOBACCO QUIT 5 TO < 15 YRS [facility] [place] [facility] Apr 04, 2018 10:41 AM QUIT TOBACCO USE 1-7 YEARS AGO [facility] [place] [facility] Oct 28, 2017 10:18 AM QUIT TOBACCO USE 1-7 YEARS AGO [facility] [place] [facility] Jan 22, 2017 01:08 PM QUIT TOBACCO USE 1-7 YEARS AGO [facility] [place] [facility] Jul 18, 2016 01:34 PM QUIT TOBACCO USE 1-7 YEARS AGO [facility] [place] [facility] January 10, 2016 10:32 AM QUIT TOBACCO USE 1-7 YEARS AGO [facility] [place] [facility] Oct 13, 2015 11:05 AM QUIT TOBACCO USE 1-7 YEARS AGO [facility] [place] [facility] Oct 19, 2014 01:53 PM QUIT TOBACCO USE > 7 YEARS AGO [place] [facility] [place] [facility] January 02, 2014 01:30 AM QUIT TOBACCO USE IN PAST YEAR [facility] [place] [facility] Jun 18, 2013 09:00 AM CURRENT SMOKER 6 cigarettes qd [facility] Jun 18, 2013 09:00 AM V1-PT DECLINES TOBACCO CESSATION [facility] Jun 18, 2013 09:00 AM V1-PT NOT INTERESTED IN QUIT TOBACCO USE [facility] [place] [facility] December 24, 2012 10:51 AM V1-PT DECLINES REF TO TOBACCO CESS PRGM [facility] December 24, 2012 10:51 AM V1-PT DECLINES TOBACCO CESSATION MEDS [facility] MICTRN [facility] December 24, 2012 10:51 AM V1-PT THINKING ABOUT QUIT TOBACCO USE [facility] MICN [facility] Jul 15, 2012 10:19 AM QUIT TOBACCO USE IN PAST YEAR [facility] [place]N [place] [facility] Jan 25, 2012 05:02 PM QUIT TOBACCO USE IN PAST YEAR [facility] Sep 28, 2011 10:09 AM CURRENT SMOKER 5 cigarettes a day [facility] [place] [facility] Jun 15, 2011 02:23 PM V1-PT DECLINES REF TO TOBACCO CESS PRGM [facility] [place] [facility] Jun 15, 2011 02:23 PM V1-PT READY TO QUIT TOBACCO USE [facility] [place] [facility] Apr 13, 2011 10:31 AM V1-PT DECLINES REF TO TOBACCO CESS PRGM [facility]CTRN [facility] Apr 13, 2011 10:31 AM V1-PT RECEIVES TOBACCO CESS MEDS OUTSIDE [facility] [place] [facility] Apr 13, 2011 10:31 AM V1-PT THINKING ABOUT QUIT TOBACCO USE [facility] Oct 16, 2010 08:52 AM QUIT TOBACCO USE IN PAST YEAR [facility] May 12, 2010 02:08 PM V1-PT DECLINES REF TO TOBACCO CESS [facility] May 12, 2010 02:08 PM V1-PT READY TO QUIT TOBACCO USE [facility] May 12, 2010 12:45 PM CURRENT SMOKER 3 cigarettes a day [facility] Encounter Notes: All associated encounter notes This section contains the clinical notes associated to the Encounter. Date/Time Encounter Note(s) Provider Source May 11, 2024 02:57 PM PSYCHIATRY GROUP COUNSELING NOTE: LOCAL TITLE: PSYCHOLOGY GROUP NOTE STANDARD TITLE: PSYCHIATRY GROUP COUNSELING NOTE DATE OF NOTE: MAY 11, 2024@14:57 ENTRY DATE: MAY 11, 2024@14:57:54 AUTHOR: DEBBIE GIBBS EXP COSIGNER: URGENCY: STATUS: COMPLETED [facility] Mindful Compassion Group Therapy Note IDENTITY VERIFICATION: [X] Patient Name [X] Visual recognition [ ] Birthdate [ ] Social Security # SESSION MODALITY: F2F ~~~ Airborne Operations Superintendent: Debbie Gibbs, PhD PROCEDURE: 60-minute interactive hybrid VVC/F2F group therapy session Problem: Difficulty being present in the moment and fostering compassion Objective: Explored and practice mindful compassion Number of Veterans Present in Group: 10 GROUP CONTENT: Group members engaged in a mindful breathing practice that focused on observing and noting emotional experiences. Group members checked in by sharing names and sharing a word of phrase to an emotion they have noticed. Group members explored the idea of if you name it, you tame it and the components of noting and anchoring in the art of labelling. Group member actively listened and shared reactions to the poem [place] by Cortney. PROGRESS: Winsted arrived on time and was an active and appropriate participant. Winsted participated in the mindfulness practices and group discussions. Mental Status was not formally assessed due to the nature of the encounter. maintained appropriate eye contact and was alert. spoke clearly and coherently. Winsted's thoughts were linear and related. Winsted's affect was congruent to content and appropriate in range. No clinical signs of intoxication, withdrawal, psychosis, or cognitive impairment were observed. No evidence of suicidal or homicidal ideation. There was no evidence of AH/VH or delusions. Winsted was future oriented. DSM-V DIAGNOSTIC IMPRESSIONS(per chart): PTSD, chronic PLAN: will continue to participate in the Mindful Compassion Group on Mondays at 1pm. /jeana/ Debbie Gibbs, PhD Clinical Psychologist, [facility] Signed: 05/11/2024 16:15 DEBBIE GIBBS [place] [facility]
--- OUTSIDE RECORDS SUMMARY | 2024-08-04 17:24 | XMS_ITS | Encounter Summary ---
Author Name [facility] [place] [facility] [place] Address [address] [place] [address] Care Team Providers Care Electrode Turner And Finisher Name Role Phone CADEN FELIZ Primary [...] PLAN I Aug 19, 2019 PLAN I [id number] [phone] MEEK,GR ICEL PATIENT [employer] OPTIONS MEDICARE SUPPLEMEN MARCIA PLANM Y Aug 19, 2019 PLANMY [id number] MEEK,GR ICEL PATIENT [employer] OPTIONS MEDICARE SUPPLEMEN MARCIA AARP MEDIC ARE SUPPL Aug 19, 2019 PLAN MY [id number] MEEK,GR ICEL PATIENT AARP INS MEDICARE SUPPLEMEN MARCIA PLANM Y Aug 19, 2019 PLANMY [id number] MEEK,GR ICEL PATIENT AARP MED SUPP MEDICARE SUPPLEMEN MARCIA Jul 19, 2010 PLANMY [id number] MEEK,GR ICEL PATIENT MEDICARE (WNR) MEDICARE () PART B Aug 19, 2008 PART B [id number] [phone] MEEK,GR ICEL PATIENT MEDICARE (WNR) MEDICARE () PART B Aug 19, 2008 PART B [id number] MEEK,GR ICEL PATIENT MEDICARE (WNR) MEDICARE () PART B Aug 19, 2008 PART B [id number] [phone] MEEK,GR ICEL PATIENT MEDICARE (WNR) MEDICARE () PART B Aug 19, 2008 PART B [id number] MEEK,GR ICEL PATIENT MEDICARE (WNR) MEDICARE () PART B Aug 19, 2008 PART B [id number] MEEK,GR ICEL PATIENT MEDICARE (WNR) MEDICARE () PART B Aug 19, 2008 PART B [id number] [phone] MEEK,GR ICEL PATIENT MEDICARE (WNR) MEDICARE () PART B Aug 19, 2008 PART B [id number] MEEK,GR ICEL PATIENT MEDICARE (WNR) MEDICARE () PART A December 18, 2003 PART A [id number] MEEK,GR ICEL PATIENT MEDICARE (WNR) MEDICARE () PART A December 18, 2003 PART A [id number] [phone] MEEK,GR ICEL PATIENT MEDICARE (WNR) MEDICARE () PART A December 18, 2003 PART A [id number] MEEK,GR ICEL PATIENT MEDICARE (WNR) MEDICARE () PART A December 18, 2003 PART A [id number] MEEK,GR ICEL PATIENT MEDICARE (WNR) MEDICARE () PART A December 18, 2003 PART A [id number] MEEK,GR ICEL PATIENT MEDICARE (WNR) MEDICARE () PART A December 18, 2003 PART A [id number] SABINE MEEK PATIENT MEDICARE (WNR) MEDICARE (M) PART A December 18, 2003 PART A [id number] [phone] SABINE MEEK PATIENT Selected Encounter This section includes the information on record at [place] for the Encounter. Date/Time Encounter Type Encounter Description Reason Provider Source May 18, 2024 01:00 PM GROUP [facility] ICD-10-CM F43.12 Post-traumati c stress disorder, chronic MARY GIBBS E IHE Encounter Template Text not used by [place] Assessments - Encounter Diagnoses This section includes the primary and secondary diagnoses documented for the Encounter. Date/Time Primary/Secondary Diagnosis Diagnosis Name Provider Source May 18, 2024 02:56 PM PRIMARY Post-traumatic stress disorder, chronic MARY GIBBS [place] [facility] [place] [facility] Plan of Treatment: Future Appointments (+ 6 months) and Future Tests (+/- 45 days) The Plan of Treatment section includes [facility] care activities [facility] the [facility] [place] [facility] This section includes future appointments [...] - MEDICINE MA C [facility] [place] [facility] May 25, 2024 01:00 PM AMBULATORY - PSYCHIATRY [place] [facility] [place] [facility] Jun 08, 2024 09:30 AM AMBULATORY - PSYCHIATRY [place] [facility] [place] [facility] Jun 08, 2024 01:00 PM AMBULATORY - PSYCHIATRY [place] [facility] [place] [facility] Jun 15, 2024 01:00 PM AMBULATORY - PSYCHIATRY [place] [facility] [place] [facility] Jun 19, 2024 09:00 AM AMBULATORY - PSYCHIATRY [place] [facility] [place] [facility] Jun 27, 2024 09:30 AM AMBULATORY - MEDICINE MA C [facility] [place] [facility] Jul 06, 2024 01:00 PM AMBULATORY - PSYCHIATRY [place] [facility] [place] [facility] Jul 13, 2024 11:30 AM AMBULATORY - MEDICINE [facility] C [facility] [place] [facility] Jul 13, 2024 01:00 PM AMBULATORY - PSYCHIATRY [facility] [place] [facility] Jul 20, 2024 09:30 AM AMBULATORY - PSYCHIATRY [facility] [place] [facility] Jul 21, 2024 09:30 AM AMBULATORY - MEDICINE [facility] [place] [facility] Jul 22, 2024 09:00 AM AMBULATORY - PSYCHIATRY [facility] [place] [facility] Jul 27, 2024 01:00 PM AMBULATORY - PSYCHIATRY [facility] [place] [facility] Aug 07, 2024 08:00 AM AMBULATORY - MEDICINE [facility] C [facility] [place] [facility] Aug 07, 2024 09:45 AM AMBULATORY - NONE [facility] [place] [facility] Sep 23, 2024 09:00 AM AMBULATORY - PSYCHIATRY [facility] [place] [facility] Oct 02, 2024 02:30 PM AMBULATORY - MEDICINE [facility] [place] [facility] Oct 06, 2024 11:30 AM AMBULATORY - MEDICINE [facility] [place] [facility] Active, Pending, and Scheduled Orders This [...] Consult Order COMMUNITY CARE-MAMMOGRAPHY FEMALE SCREEN Cons Transportation Maintenance Operator's Choice [place] [facility] [place] [facility] May 28, 2024 09:28 AM Consult Order COMMUNITY CARE-DENTAL SPECIALTY Cons Transportation Maintenance Operator's Choice [place] [facility] [place] [facility] Jun 26, 2024 01:51 PM Consult Order COMMUNITY CARE-ACUPUNCTURE Cons Transportation Maintenance Operator's Choice [place] [facility] [place] [facility] Social [...] took place. Date/Time Current Smoking Status Comment [facility] Apr 06, 2024 12:30 PM VA-TOBACCO FORMER USER [place] [facility] [place] [facility] Tobacco Use History This section [...] [facility] [place] [facility] Feb 08, 2023 10:00 AM VA-TOBACCO FORMER USER [facility] [place] [facility] Feb 08, 2023 10:00 AM VA-TOBACCO QUIT 15 YRS OR MORE [place] [facility] [place] [facility] Mar 06, 2022 02:30 PM VA-TOBACCO FORMER USER [facility] [place] [facility] Mar 06, 2022 02:30 PM VA-TOBACCO QUIT 15 YRS OR MORE [place] [facility] [place] [facility] Apr 04, 2021 10:28 AM VA-TOBACCO NEVER USED MA [facility] [place] [facility] May 03, 2020 02:00 PM VA-TOBACCO NEVER USED MA [facility] [place] [facility] Feb 25, 2019 08:14 AM VA-TOBACCO FORMER USER [facility] [place] [facility] Feb 25, 2019 08:14 AM VA-TOBACCO QUIT 5 TO < 15 YRS [facility] [place] [facility] [...] TOBACCO USE 1-7 YEARS AGO [facility] [place] [facility] Oct 19, 2014 01:53 PM QUIT TOBACCO USE > 7 YEARS AGO [place] [facility] [place] [facility] January 02, 2014 01:30 AM QUIT TOBACCO USE IN PAST YEAR [facility] [place] [place] [facility] Jun 18, 2013 09:00 AM CURRENT SMOKER 6 cigarettes qd [facility] [place] [facility] Jun 18, 2013 09:00 AM V1-PT DECLINES TOBACCO CESSATION MEDS [place] [facility] [place] [facility] Jun 18, 2013 09:00 AM V1-PT NOT INTERESTED IN QUIT TOBACCO USE [facility] [place] [facility] December 24, 2012 10:51 AM V1-PT DECLINES REF TO TOBACCO CESS PRGM [facility] [place] [place] [facility] December 24, 2012 10:51 AM V1-PT DECLINES TOBACCO CESSATION MEDS [facility] [place] [facility] December 24, 2012 10:51 AM V1-PT THINKING ABOUT QUIT TOBACCO USE [facility] [place] [facility] Jul 15, 2012 10:19 AM QUIT TOBACCO USE IN PAST YEAR [facility] [place] [place] [facility] Jan 25, 2012 05:02 PM QUIT TOBACCO USE IN PAST YEAR [facility] [place] [place] [facility] Sep 28, 2011 10:09 AM CURRENT SMOKER 5 cigarettes a day [facility] [place] [place] [facility] Jun 15, 2011 02:23 PM V1-PT DECLINES REF TO TOBACCO CESS PRGM [facility] [place] [facility] Jun 15, 2011 02:23 PM V1-PT READY TO QUIT TOBACCO USE [facility] [place] [facility] Apr 13, 2011 10:31 AM V1-PT DECLINES REF TO TOBACCO CESS PRGM [facility] [place] [facility] Apr 13, 2011 10:31 AM V1-PT RECEIVES TOBACCO CESS MEDS OUTSIDE [facility] [place] [facility] Apr 13, 2011 10:31 AM V1-PT THINKING ABOUT QUIT TOBACCO USE [facility] [place] [facility] Oct 16, 2010 08:52 AM QUIT TOBACCO USE IN PAST YEAR [facility] May 12, 2010 02:08 PM V1-PT DECLINES REF TO TOBACCO CESS [facility] May 12, 2010 02:08 PM V1-PT READY TO QUIT [facility]ACCO [facility] May 12, 2010 12:45 PM CURRENT SMOKER 3 cigarettes a day [facility] Encounter Notes: All associated encounter notes This section contains the clinical notes associated to the Encounter. Date/Time Encounter Note(s) Provider Source May 18, 2024 02:55 PM PSYCHIATRY GROUP COUNSELING NOTE: LOCAL TITLE: PSYCHOLOGY GROUP NOTE STANDARD TITLE: PSYCHIATRY GROUP COUNSELING NOTE DATE OF NOTE: MAY 18, 2024@14:55 ENTRY DATE: MAY 18, 2024@14:55:45 AUTHOR: DEBBIE GIBBS EXP COSIGNER: URGENCY: STATUS: COMPLETED [facility] Mindful Compassion Group Therapy Note IDENTITY VERIFICATION: [X] Patient Name [X] Visual recognition [ ] Birthdate [ ] Social Security # ~~~ Polyethylene Bag Machine Operator: Debbie Gibbs, PhD PROCEDURE: 60-minute interactive hybrid VVC/F2F group therapy session Problem: Difficulty being present in the moment and fostering compassion Objective: Explored and practice mindful compassion Number of Veterans Present in Group: 10 GROUP CONTENT: Group members engaged in the soften, soothe, allow mindfulness practice and spoke about their experience of this. Group members checked in by sharing how they have been using mindful awareness or intend to do so in the next week. The value of labelling emotions was explored as a strategy to defuse. Group members engaged in a second mindfulness practice involving the quote Sometimes what youre most afraid of doing is the very thing that will set you free by Adrian Hood. They committed to practice greeting challenging emotions by softening, soothing, and allowing as a strategic choice. PROGRESS: Linch arrived on time and was an active and appropriate participant. Linch participated in the mindfulness practices and group discussions. Mental Status was not formally assessed due to the nature of the encounter. maintained appropriate eye contact and was alert. spoke clearly and coherently. 's thoughts were linear and related. Linch's affect was congruent to content and appropriate in range. No clinical signs of intoxication, withdrawal, psychosis, or cognitive impairment were observed. No evidence of suicidal or homicidal ideation. There was no evidence of AH/VH or delusions. Linch was future oriented. DSM-V DIAGNOSTIC IMPRESSIONS(per chart): PTSD, chronic PLAN: Linch will continue to participate in the Mindful Compassion Group on Mondays at 1pm. /jeana/ Debbie Gibbs, PhD Clinical Psychologist, [facility] Signed: 05/18/2024 16:12 DEBBIE GIBBS MA [facility]
--- OUTSIDE RECORDS SUMMARY | 2024-08-04 17:24 | XMS_ITS | Encounter Summary ---
Author Name [facility] [place] Address [address] [place] [address] Care Team Providers Care Extern Name Role Phone CADEN FELIZ Primary Care [...] PLAN I Aug 19, 2019 PLAN I [id number] MEEK,SABINE ICEL PATIENT [employer] OPTIONS MEDICARE SUPPLEMEN MARCIA PLANM Y Aug 19, 2019 PLANMY [id number] MEEK,GR ICEL PATIENT [employer] OPTIONS MEDICARE SUPPLEMEN MARCIA AARP MEDIC ARE SUPPL Aug 19, 2019 PLAN MY [id number] [phone] MEEK,GR ICEL PATIENT AARP INS MEDICARE SUPPLEMEN MARCIA PLANM Y Aug 19, 2019 PLANMY [id number] MEEK,GR ICEL PATIENT AARP MED SUPP MEDICARE SUPPLEMEN MARCIA Jul 19, 2010 PLANMY [id number] [phone] MEEK,GR ICEL PATIENT MEDICARE (WNR) MEDICARE () PART B Aug 19, 2008 PART B [id number] [phone] MEEK,GR ICEL PATIENT MEDICARE (WNR) MEDICARE () PART B Aug 19, 2008 PART B [id number] MEEK,GR ICEL PATIENT MEDICARE (WNR) MEDICARE () PART B Aug 19, 2008 PART B [id number] MEEK,GR ICEL PATIENT MEDICARE (WNR) MEDICARE () PART B Aug 19, 2008 PART B [id number] MEEK,GR ICEL PATIENT MEDICARE (WNR) MEDICARE () PART B Aug 19, 2008 PART B [id number] [phone] MEEK,GR ICEL PATIENT MEDICARE (WNR) MEDICARE () PART B Aug 19, 2008 PART B [id number] MEEK,GR ICEL PATIENT MEDICARE (WNR) MEDICARE () PART B Aug 19, 2008 PART B [id number] MEEK,GR ICEL PATIENT MEDICARE (WNR) MEDICARE () PART A December 18, 2003 PART A [id number] [phone] MEEK,GR ICEL PATIENT MEDICARE (WNR) MEDICARE () PART A December 18, 2003 PART A [id number] [phone] MEEK,GR ICEL PATIENT MEDICARE (WNR) MEDICARE () PART A December 18, 2003 PART A [id number] MEEK,GR ICEL PATIENT MEDICARE (WNR) MEDICARE () PART A December 18, 2003 PART A [id number] MEEK,GR ICEL PATIENT MEDICARE (WNR) MEDICARE () PART A December 18, 2003 PART A [id number] [phone] MEEK,GR ICEL PATIENT MEDICARE (WNR) MEDICARE () PART A December 18, 2003 PART A [id number] SABINE MEEK PATIENT MEDICARE (WNR) MEDICARE (M) PART A December 18, 2003 PART A [id number] SABINE MEEK PATIENT Selected Encounter This section includes the information on record at [place] for the Encounter. Date/Time Encounter Type Encounter Description Reason Pro vider Source May 22, 2024 10:43 AM Outpatient Encounter COMMUNITY CARE CONSULT IHE [...] Appointment Type Appointme nt Facility Name May 25, 2024 01:00 PM AMBULATORY - PSYCHIATRY [facility] [place] [facility] Jun 08, 2024 09:30 AM AMBULATORY - PSYCHIATRY [facility] [place] [facility] Jun 08, 2024 01:00 PM AMBULATORY - PSYCHIATRY [facility] [place] [facility] Jun 15, 2024 01:00 PM AMBULATORY - PSYCHIATRY [facility] [place] [facility] Jun 19, 2024 09:00 AM AMBULATORY - PSYCHIATRY [facility] [place] [facility] Jun 27, 2024 09:30 AM AMBULATORY - MEDICINE [place] C [facility] [place] [facility] Jul 06, 2024 01:00 PM AMBULATORY - PSYCHIATRY [facility] [place] [facility] Jul 13, 2024 11:30 AM AMBULATORY - MEDICINE [place] C [facility] [place] [facility] Jul 13, 2024 01:00 PM AMBULATORY - PSYCHIATRY [facility] [place] [facility] Jul 20, 2024 09:30 AM AMBULATORY - PSYCHIATRY [facility] [place] [facility] Jul 21, 2024 09:30 AM AMBULATORY - MEDICINE [place] C [facility] [place] [facility] Jul 22, 2024 09:00 AM AMBULATORY - PSYCHIATRY [place] [facility] [place] [facility] Jul 27, 2024 01:00 PM AMBULATORY - PSYCHIATRY [place] [facility] [place] [facility] Aug 07, 2024 08:00 AM AMBULATORY - MEDICINE [place] C [facility] [place] [facility] Aug 07, 2024 09:45 AM AMBULATORY - NONE [facility] [place] [facility] Sep 23, 2024 09:00 AM AMBULATORY - [facility] [place] [facility] Oct 02, 2024 02:30 PM AMBULATORY - MEDICINE [facility] Oct 06, 2024 11:30 AM AMBULATORY - MEDICINE [facility] Active, Pending, and Scheduled Orders [...] Consult Order COMMUNITY CARE-MAMMOGRAPHY FEMALE SCREEN Cons [employer] Manager's Choice [facility] May 28, 2024 09:28 AM Consult Order COMMUNITY CARE-DENTAL SPECIALTY Cons [employer] Manager's Choice [facility] Jun 26, 2024 01:51 PM Consult Order COMMUNITY CARE-ACUPUNCTURE Cons [employer] Manager's Choice [facility] Social History: Smoking Status (Most current) [...] place. Date/Time Current Smoking Status Comment Rosamaria ity Apr 06, 2024 12:30 PM OR-TOBACCO QUIT 15 YRS OR MORE [facility] Tobacco Use History This section includes [...] [facility] [place] [facility] Feb 08, 2023 10:00 AM VA-TOBACCO FORMER USER [facility] [place] [facility] Feb 08, 2023 10:00 AM VA-TOBACCO [...] VA-TOBACCO NEVER USED [place] CNTRL [facility] [place] [facility] May 03, 2020 02:00 PM VA-TOBACCO NEVER USED [facility] [place] [facility] Feb 25, 2019 08:14 AM VA-TOBACCO FORMER USER [facility] [place] [facility] Feb 25, 2019 08:14 AM VA-TOBACCO QUIT 5 TO < 15 YRS [facility] [place] [facility] [...] IN PAST YEAR [facility] [place] [facility] Jun 18, 2013 09:00 AM CURRENT SMOKER 6 cigarettes qd [facility] [place] [facility] Jun 18, 2013 09:00 AM V1-PT DECLINES TOBACCO CESSATION MEDS [facility] Jun 18, 2013 09:00 AM V1-PT NOT INTERESTED IN QUIT TOBACCO USE [place] [facility]TR [place] [facility] December 24, 2012 10:51 AM V1-PT DECLINES REF TO TOBACCO CESS PRGM [facility] December 24, 2012 10:51 AM V1-PT DECLINES TOBACCO CESSATION MEDS [facility] [place] [facility] December 24, 2012 10:51 AM V1-PT THINKING ABOUT QUIT TOBACCO USE [facility] Jul 15, 2012 10:19 AM QUIT TOBACCO USE IN PAST YEAR [facility] Jan 25, 2012 05:02 PM QUIT TOBACCO USE IN PAST YEAR [facility] Sep 28, 2011 10:09 AM CURRENT SMOKER 5 cigarettes a day [facility] Jun 15, 2011 02:23 PM V1-PT DECLINES REF TO TOBACCO CESS PRGM [facility] Jun 15, 2011 02:23 PM V1-PT READY TO QUIT TOBACCO USE [facility] Apr 13, 2011 10:31 AM V1-PT DECLINES REF TO TOBACCO CESS PRGM [facility] Apr 13, 2011 10:31 AM V1-PT RECEIVES TOBACCO CESS MEDS OUTSIDE [facility] Apr 13, 2011 10:31 AM V1-PT THINKING ABOUT QUIT TOBACCO USE [facility] [place] [place] [facility] Oct 16, 2010 08:52 AM QUIT TOBACCO USE IN PAST YEAR [facility] [place] [facility] May 12, 2010 02:08 PM V1-PT DECLINES REF TO TOBACCO CESS PRGM [facility] May 12, 2010 02:08 PM V1-PT READY TO QUIT TOBACCO USE [facility] May 12, 2010 12:45 PM CURRENT SMOKER 3 cigarettes a day [facility] Encounter Notes: All associated encounter notes This section contains the clinical notes associated to the Encounter. Date/Time Encounter Note(s) Provider Source May 22, 2024 10:43 AM NONVA NOTE: LOCAL TITLE: [facility] SELF PRESENTING CARE COORD PLAN STANDARD TITLE: NONVA NOTE DATE OF NOTE: MAY 22, 2024@10:43 ENTRY DATE: MAY 22, 2024@10:43:18 AUTHOR: DARRYL JOSUE EXP COSIGNER: URGENCY: STATUS: COMPLETED Emergency Notification Intake Date Presenting to the Facility: Mar Method of Contact: Notified from [employer] worklist Notification ID: [id number] [facility] Referral #: [id number] [facility] Name: Hospital: [facility] Address: City: [place] State: [place] Zip Code: Phone : [facility] Point of Contact: Name: Khadra Phone: Chief complaint: AFIB, HEADACHE, RIB PAIN, DIFF BREATHING Primary Diagnosis: Disposition Discharged Date of discharge: Mar Discharge to Comment: ER Only /jeana/ DARRYL HAMMOND Signed: 05/22/2024 10:44 Receipt Acknowledged By: 06/25/2024 12:28 /jeana/ Ora HE,RN,CCM TRANSFER/TRAVELING COORDINATOR DARRYL JOSUE ARIVACA
--- OUTSIDE RECORDS SUMMARY | 2024-08-04 17:25 | XMS_ITS ---
Author Name [facility] [place] Address [address] [place] [address] Care Team Providers Care Taxicab Starter Name Role Phone CADEN FELIZ Primary Care [...] PLAN I Aug 19, 2019 PLAN I [id number] MEEK,GR ICEL PATIENT [employer] HE[employer] OPTIONS MEDICARE SUPPLEMEN MARCIA PLANM Y Aug 19, 2019 PLANMY [id number] MEEK,GR ICEL PATIENT [employer] OPTIONS MEDICARE SUPPLEMEN MARCIA AARP MEDIC ARE SUPPL Aug 19, 2019 PLAN MY [id number] [phone] MEEK,GR ICEL PATIENT AARP INS MEDICARE SUPPLEMEN MARCIA PLANM Y Aug 19, 2019 PLANMY [id number] MEEK,GR ICEL PATIENT AARP MED SUPP MEDICARE SUPPLEMEN MARCIA Jul 19, 2010 PLANMY [id number] MEEK,GR ICEL PATIENT MEDICARE (WNR) MEDICARE () PART B Aug 19, 2008 PART B [id number] [phone] MEEK,GR ICEL PATIENT MEDICARE (WNR) MEDICARE () PART B Aug 19, 2008 PART B [id number] [phone] MEEK,GR ICEL PATIENT MEDICARE (WNR) MEDICARE () PART B Aug 19, 2008 PART B [id number] MEKE,GR ICEL PATIENT MEDICARE (WNR) MEDICARE () PART B Aug 19, 2008 PART B [id number] [phone] MEEK,GR ICEL PATIENT MEDICARE (WNR) MEDICARE () PART B Aug 19, 2008 PART B [id number] [id number] MEEK,GR ICEL PATIENT MEDICARE (WNR) MEDICARE () PART B Aug 19, 2008 PART B [id number] [phone] MEEK,GR ICEL PATIENT MEDICARE (WNR) MEDICARE () PART B Aug 19, 2008 PART B [id number] MEEK,GR ICEL PATIENT MEDICARE (WNR) MEDICARE () PART A December 18, 2003 PART A [id number] [phone] MEEK,GR ICEL PATIENT MEDICARE (WNR) MEDICARE () PART A December 18, 2003 PART A [id number] MEEK,GR ICEL PATIENT MEDICARE (WNR) MEDICARE () PART A December 18, 2003 PART A [id number] MEEK,GR ICEL PATIENT MEDICARE (WNR) MEDICARE () PART A December 18, 2003 PART A [id number] [phone] MEEK,GR ICEL PATIENT MEDICARE (WNR) MEDICARE () PART A December 18, 2003 PART A [id number] [phone] MEEK,GR ICEL PATIENT MEDICARE (WNR) MEDICARE () PART A December 18, 2003 PART A [id number] SABINE MEEK PATIENT MEDICARE (WNR) MEDICARE (M) PART A December 18, 2003 PART A [id number] SABINE MEEK PATIENT Selected Encounter This section includes the information on record at [place] for the Encounter. Date/Time Encounter Type Encounter Description Reason Provider Source May 25, 2024 01:00 PM GROUP [facility] ICD-10-CM F43.12 Post-traumati c stress disorder, chronic MANUELEMARY E IHE Encounter Template Text not used by [place] Assessments - Encounter Diagnoses This section includes the primary and secondary diagnoses documented for the Encounter. Date/Time Primary/Secondary Diagnosis Diagnosis Name Provider Source May 25, 2024 04:16 PM PRIMARY Post-traumatic stress disorder, chronic MARY GIBBS E [place] [facility] [place] [facility] Plan of Treatment: Future Appointments (+ 6 months) and Future Tests (+/- 45 days) The Plan of Treatment section includes future care activities for the patient [facility] [place] [facility] This section includes future appointments and future orders which are active, pending or scheduled. Future Appointments This section includes appointments that were scheduled to occur 6 months from the date of the Encounter, up to a maximum of 20 appointments. The data comes from all [place] treatment facilities. Appointment Date/Time Appointment Type Appointme nt Facility Name Jun 08, 2024 09:30 AM AMBULATORY - PSYCHIATRY [place] [facility] [place] [facility] Jun 08, 2024 01:00 PM AMBULATORY - PSYCHIATRY [place] [facility] [facility] Jun 15, 2024 01:00 PM AMBULATORY - PSYCHIATRY [place] [facility] [facility] Jun 19, 2024 09:00 AM AMBULATORY - PSYCHIATRY [place] [facility] [place] [facility] Jun 27, 2024 09:30 AM AMBULATORY - MEDICINE [place] [facility] [facility] Jul 06, 2024 01:00 PM AMBULATORY - PSYCHIATRY [place] [facility] [facility] Jul 13, 2024 11:30 AM AMBULATORY - MEDICINE [place] [facility] [facility] Jul 13, 2024 01:00 PM AMBULATORY - PSYCHIATRY [place] [facility] [facility] Jul 20, 2024 09:30 AM AMBULATORY - PSYCHIATRY [place] [facility] [place] [facility] Jul 21, 2024 09:30 AM AMBULATORY - MEDICINE [place] [facility] [place] [facility] Jul 22, 2024 09:00 AM AMBULATORY - PSYCHIATRY [place] [facility] [place] [facility] Jul 27, 2024 01:00 PM AMBULATORY - PSYCHIATRY [place] [facility] [place] [facility] Aug 07, 2024 08:00 AM AMBULATORY - MEDICINE [place] [facility] [place] [facility] Aug 07, 2024 09:45 AM AMBULATORY - NONE [place] [facility] [facility] Sep 23, 2024 09:00 AM AMBULATORY - PSYCHIATRY [place] [facility] [place] [facility] Oct 02, 2024 02:30 PM AMBULATORY - MEDICINE [place] [facility] [place] [facility] Oct 06, 2024 11:30 AM AMBULATORY - MEDICINE [place] C [facility] [place] [facility] Active, Pending, and Scheduled Orders This section [...] Consult Order COMMUNITY CARE-MAMMOGRAPHY FEMALE SCREEN Cons Office Machine Service [facility] [place] [facility] May 28, 2024 09:28 AM Consult Order COMMUNITY CARE-DENTAL SPECIALTY Cons Office Machine Service Supervisor's Choice [place] [facility] [facility] Jun 26, 2024 01:51 PM Consult Order COMMUNITY CARE-ACUPUNCTURE Cons Office Machine Service Supervisor's Choice [facility] [place] [facility] Social History: Smoking Status (Most current) and [...] 06, 2024 12:30 PM VA-TOBACCO FORMER USER [place] [facility] [facility] Tobacco Use History This section includes a history of the smoking, or tobacco-related health factors, that were collected on or before the date of the Encounter. The data comes from the [place] facility where the Encounter took place. Date/Time Smoking Status/Tobac co Use Comment Facility Apr 06, 2024 12:30 PM VA-TOBACCO QUIT 15 YRS OR MORE [place] [facility] [place] [facility] Feb 08, 2023 10:00 AM VA-TOBACCO FORMER USER [place] [facility] [facility] Feb 08, 2023 10:00 AM VA-TOBACCO QUIT 15 YRS OR MORE [place] [facility] [facility] Mar 06, 2022 02:30 PM VA-TOBACCO FORMER USER [place] [facility] [facility] Mar 06, 2022 02:30 PM VA-TOBACCO QUIT 15 YRS OR MORE [place] [facility] [facility] Apr 04, 2021 10:28 AM VA-TOBACCO NEVER USED [place] [facility] [facility] May 03, 2020 02:00 PM VA-TOBACCO NEVER USED [place] [facility] [facility] Feb 25, 2019 08:14 AM VA-TOBACCO FORMER USER [place] [facility] [facility] Feb 25, 2019 08:14 AM VA-TOBACCO QUIT 5 TO < 15 YRS [place] [facility] [place] [facility] Apr 04, 2018 10:41 AM QUIT TOBACCO USE 1-7 YEARS AGO [place] [facility] [place] [facility] Oct 28, 2017 10:18 AM QUIT TOBACCO USE 1-7 YEARS AGO [place] [facility] [place] [facility] Jan 22, 2017 01:08 PM QUIT TOBACCO USE 1-7 YEARS AGO [place] [facility] [place] [facility] Jul 18, 2016 01:34 PM QUIT TOBACCO USE 1-7 YEARS AGO [place] [facility] [facility] January 10, 2016 10:32 AM QUIT TOBACCO USE 1-7 YEARS AGO [place] [facility] [place] [facility] Oct 13, 2015 11:05 AM QUIT TOBACCO USE 1-7 YEARS AGO [place] [facility] [place] [facility] Oct 19, 2014 01:53 PM QUIT TOBACCO USE > 7 YEARS AGO [place] [facility] [place] [facility] January 02, 2014 01:30 AM QUIT TOBACCO USE IN PAST YEAR [facility] [place] [facility] Jun 18, 2013 09:00 AM CURRENT SMOKER 6 cigarettes qd [place] [facility] [facility] Jun 18, 2013 09:00 AM V1-PT DECLINES TOBACCO CESSATION MEDS [facility] [place] [facility] Jun 18, 2013 09:00 AM V1-PT NOT INTERESTED IN QUIT TOBACCO USE [place] [facility] [facility] December 24, 2012 10:51 AM V1-PT DECLINES REF TO TOBACCO CESS PRGM [facility] [place] [facility] December 24, 2012 10:51 AM V1-PT DECLINES TOBACCO CESSATION MEDS [facility] [place] [facility] December 24, 2012 10:51 AM V1-PT THINKING ABOUT QUIT TOBACCO USE [facility] [place] [facility] Jul 15, 2012 10:19 AM QUIT TOBACCO USE IN PAST YEAR [facility] [place] [facility] Jan 25, 2012 05:02 PM QUIT TOBACCO USE IN PAST YEAR [facility] [place] [facility] Sep 28, 2011 10:09 AM CURRENT SMOKER 5 cigarettes a day [facility] [place] [facility] Jun 15, 2011 02:23 PM V1-PT DECLINES REF TO TOBACCO CESS PRGM [facility] [place] [facility] Jun 15, 2011 02:23 PM V1-PT READY TO QUIT TOBACCO USE [facility] [place] [facility] Apr 13, 2011 10:31 AM V1-PT DECLINES REF TO TOBACCO CESS PRGM [facility] [place] [facility] Apr 13, 2011 10:31 AM V1-PT RECEIVES TOBACCO CESS MEDS OUTSIDE [facility] [place] [facility] Apr 13, 2011 10:31 AM V1-PT THINKING ABOUT QUIT TOBACCO USE [facility] [place] [facility] Oct 16, 2010 08:52 AM QUIT TOBACCO USE IN PAST YEAR [facility] [place] [facility] May 12, 2010 02:08 PM V1-PT DECLINES REF TO TOBACCO CESS PRGM [facility] May 12, 2010 02:08 PM V1-PT READY TO QUIT TOBACCO USE [facility] May 12, 2010 12:45 PM CURRENT SMOKER 3 cigarettes a day [facility] Encounter Notes: All associated encounter notes This section contains the clinical notes associated to the Encounter. Date/Time Encounter Note(s) Provider Source May 25, 2024 04:15 PM PSYCHIATRY GROUP COUNSELING NOTE: LOCAL TITLE: PSYCHOLOGY GROUP NOTE STANDARD TITLE: PSYCHIATRY GROUP COUNSELING NOTE DATE OF NOTE: MAY 25, 2024@16:15 ENTRY DATE: MAY 25, 2024@16:15:16 AUTHOR: DEBBIE GIBBS EXP COSIGNER: URGENCY: STATUS: COMPLETED [facility] Mindful Compassion Group Therapy Note (F2F) IDENTITY VERIFICATION: [X] Patient Name [X] Visual recognition [ ] Birthdate [ ] Social Security # ~~~ Principal Data Architect: Debbie Gibbs, PhD PROCEDURE: 60-minute interactive hybrid VVC/F2F group therapy session Problem: Difficulty being present in the moment and fostering compassion Objective: Explored and practice mindful compassion Number of Veterans Present in Group: 10 GROUP CONTENT: Group members engaged in a mindful listening practice involving listening to a poem by Mallory and speaking about their experience of this. Group members checked in by sharing something they find soothing or calming. Group members explored the idea of soothing touch as a mindful compassion tool and experimented with suggested ideas. Group members celebrated the graduation of two members. Group members committed to utilize mindful awareness and soothing touch between now and next group. PROGRESS: Clayton arrived on time and was an active and appropriate participant. Clayton participated in the mindfulness practices and group discussions. Mental Status was not formally assessed due to the nature of the encounter. maintained appropriate eye contact and was alert. spoke clearly and coherently. 's thoughts were linear and related. Clayton's affect was congruent to content and appropriate in range. No clinical signs of intoxication, withdrawal, psychosis, or cognitive impairment were observed. No evidence of suicidal or homicidal ideation. There was no evidence of AH/VH or delusions. was future oriented. DSM-V DIAGNOSTIC IMPRESSIONS(per chart): PTSD, chronic PLAN: will continue to participate in the Mindful Compassion Group on Mondays at 1pm. /es/ Debbie Gibbs, PhD Clinical Psychologist, [facility] Signed: 05/25/2024 16:20 DEBBIE GIBBS CN[facility]L [facility]
--- OUTSIDE RECORDS SUMMARY | 2024-08-04 17:25 | XMS_ITS | Encounter Summary ---
Author Name [place] Address [address] [place] [address] Care Team Providers Care Protective Service Specialist Name Role Phone CADEN FELIZ Primary [...] PLAN I Aug 19, 2019 PLAN I [id number] [phone] MEEK,GR ICEL PATIENT [employer] OPTIONS MEDICARE SUPPLEMEN MARCIA PLANM Y Aug 19, 2019 PLANMY [id number] MEEK,GR ICEL PATIENT [employer] OPTIONS MEDICARE SUPPLEMEN MARCIA AARP MEDIC ARE SUPPL Aug 19, 2019 PLAN MY [id number] MEEK,GR ICEL PATIENT AARP INS MEDICARE SUPPLEMEN MARCIA PLANM Y Aug 19, 2019 PLANMY [id number] MEEK,GR ICEL PATIENT AARP MED SUPP MEDICARE SUPPLEMEN MARCIA Jul 19, 2010 PLANMY [id number] [phone] MEEK,GR ICEL PATIENT MEDICARE (WNR) MEDICARE () PART B Aug 19, 2008 PART B [id number] MEEK,GR ICEL PATIENT MEDICARE (WNR) MEDICARE () PART B Aug 19, 2008 PART B [id number] MEEK,GR ICEL PATIENT MEDICARE (WNR) MEDICARE () PART B Aug 19, 2008 PART B [id number] MEEK,GR ICEL PATIENT MEDICARE (WNR) MEDICARE () PART B Aug 19, 2008 PART B [id number] [phone] MEEK,GR ICEL PATIENT MEDICARE (WNR) MEDICARE () PART B Aug 19, 2008 PART B [id number] MEEK,GR ICEL PATIENT MEDICARE (WNR) MEDICARE () PART B Aug 19, 2008 PART B [id number] [phone] MEEK,GR ICEL PATIENT MEDICARE (WNR) MEDICARE () PART B Aug 19, 2008 PART B [id number] MEEK,GR ICEL PATIENT MEDICARE (WNR) MEDICARE () PART A December 18, 2003 PART A [id number] [phone] MEEK,GR ICEL PATIENT MEDICARE (WNR) MEDICARE () PART A December 18, 2003 PART A [id number] [phone] MEEK,GR ICEL PATIENT MEDICARE (WNR) MEDICARE () PART A December 18, 2003 PART A [id number] MEEK,GR ICEL PATIENT MEDICARE (WNR) MEDICARE () PART A December 18, 2003 PART A [id number] [phone] MEEK,GR ICEL PATIENT MEDICARE (WNR) MEDICARE () PART A December 18, 2003 PART A [id number] MEEK,GR ICEL PATIENT MEDICARE (WNR) MEDICARE () PART A December 18, 2003 PART A [id number] SABINE MEEK ICEJacky PATIENT MEDICARE (WNR) MEDICARE (M) PART A December 18, 2003 PART A [id number] SABINE MEEK PATIENT Selected Encounter This section includes the information on record at [place] for the Encounter. Date/Time Encounter Type Encounter Description Reason Pro vider Source May 25, 2024 11:29 AM Outpatient Encounter ADMIN PAT ACTIVTIES (MASNONCT) IHE Encounter Template Text not used by [place] Plan of Treatment: Future Appointments (+ 6 months) and Future Tests (+/- 45 days) The Plan of Treatment section includes future care activities for the patient [facility] [place] [facility] This section includes future appointments [...] AMBULATORY - PS[place]CHIATRY [place] [facility] [place] [facility] Jun 08, 2024 01:00 PM AMBULATORY - PSYCHIATRY [place] [facility] [place] [facility] Jun 15, 2024 01:00 PM AMBULATORY - PSYCHIATRY [place] [facility] [place] [facility] Jun 19, 2024 09:00 AM AMBULATORY - PSYCHIATRY [place] [facility] [place] [facility] Jun 27, 2024 09:30 AM AMBULATORY - MEDICINE [place] C [place] [facility] Jul 06, 2024 01:00 PM AMBULATORY - PSYCHIATRY [place] [facility] [place] [facility] Jul 13, 2024 11:30 AM AMBULATORY - MEDICINE [place] [facility] Jul 13, 2024 01:00 PM AMBULATORY - PSYCHIATRY [place] [facility] [place] [facility] Jul 20, 2024 09:30 AM AMBULATORY - PSYCHIATRY [place] [facility] [place] [facility] Jul 21, 2024 09:30 AM AMBULATORY - MEDICINE [place] [facility] Jul 22, 2024 09:00 AM AMBULATORY - PSYCHIATRY [place] [facility] [place] [facility] Jul 27, 2024 01:00 PM AMBULATORY - PSYCHIATRY [place] [facility] [place] [facility] Aug 07, 2024 08:00 AM AMBULATORY - MEDICINE [place] [facility] Aug 07, 2024 09:45 AM AMBULATORY - NONE [place] [facility] [place] [facility] Sep 23, 2024 09:00 AM AMBULATORY - PSYCHIATRY [place] [facility] [place] [facility] Oct 02, 2024 02:30 PM AMBULATORY - MEDICINE [place] [facility] Oct 06, 2024 11:30 AM [facility]AT[facility] Active, Pending, and Scheduled Orders [...] Consult Order COMMUNITY CARE-MAMMOGRAPHY FEMALE SCREEN Cons Cat Cracker Operator's Choice [facility] [place] [facility] May 28, 2024 09:28 AM Consult Order COMMUNITY CARE-DENTAL SPECIALTY Cons Cat Cracker Operator's [facility] Jun 26, 2024 01:51 PM Consult Order COMMUNITY CARE-ACUPUNCTURE Cons Cat Cracker [facility] Social History: Smoking Status (Most [...] place. Date/Time Current Smoking Status Comment [facility] Apr 06, 2024 12:30 PM VA-TOBACCO [facility] Tobacco Use History This section includes a history of the smoking, or tobacco-related health factors, that were collected on or before the date of the Encounter. The data comes from the [place] facility where the Encounter took place. Date/Time Smoking Status/Tobac co Use Comment Facility Apr 06, 2024 12:30 PM VA-TOBACCO QUIT 15 YRS OR MORE [place] [facility] [place] [facility] Feb 08, 2023 10:00 AM VA-TOBACCO FORMER USER [place] [facility] [place] [facility] Feb 08, 2023 10:00 AM VA-TOBACCO QUIT 15 YRS OR MORE [place] [facility] [place] [facility] Mar 06, 2022 02:30 PM VA-TOBACCO FORMER USER [place] [facility] [place] [facility] Mar 06, 2022 02:30 PM VA-TOBACCO QUIT 15 YRS OR MORE [place] [facility] [place] [facility] Apr 04, 2021 10:28 AM VA-TOBACCO NEVER USED [place] [facility] [place] [facility] May 03, 2020 02:00 PM VA-TOBACCO NEVER USED [place] [facility] [place] [facility] Feb 25, 2019 08:14 AM VA-TOBACCO FORMER USER [place] [facility] [place] [facility] Feb 25, 2019 08:14 AM VA-TOBACCO QUIT 5 TO < 15 YRS [facility] [place] [facility] Apr 04, 2018 10:41 AM QUIT TOBACCO USE 1-7 YEARS AGO [place] [facility] [place] [facility] Oct 28, 2017 10:18 AM QUIT TOBACCO USE 1-7 YEARS AGO [place] [facility] [place] [facility] Jan 22, 2017 01:08 PM QUIT TOBACCO USE 1-7 YEARS AGO [place] [facility] [place] [facility] Jul 18, 2016 01:34 PM QUIT TOBACCO USE 1-7 YEARS AGO [place] [facility] [place] [facility] January 10, 2016 10:32 AM QUIT TOBACCO USE 1-7 YEARS AGO [place] [facility] [place] [facility] Oct 13, 2015 11:05 AM QUIT TOBACCO USE 1-7 YEARS AGO [place] [facility] [place] [facility] Oct 19, 2014 01:53 PM QUIT TOBACCO USE > 7 YEARS AGO [place] [facility] [place] [facility] January 02, 2014 01:30 AM QUIT TOBACCO USE IN PAST YEAR [place] [facility] [place] [facility] Jun 18, 2013 09:00 AM CURRENT SMOKER 6 cigarettes qd [place] [facility] [place] [facility] Jun 18, 2013 09:00 AM V1-PT DECLINES TOBACCO CESSATION MEDS [facility] Jun 18, 2013 09:00 AM V1-PT NOT INTERESTED IN QUIT TOBACCO USE [facility] December 24, 2012 10:51 AM V1-PT DECLINES REF TO TOBACCO CESS PRGM [facility] December 24, 2012 10:51 AM V1-PT DECLINES TOBACCO CESSATION MEDS [facility] December 24, 2012 10:51 AM V1-PT THINKING ABOUT QUIT [facility]ACCO [facility] Jul 15, 2012 10:19 AM QUIT TOBACCO USE IN PAST YEAR [facility] Jan 25, 2012 05:02 PM QUIT TOBACCO USE IN PAST YEAR [facility] Sep 28, 2011 10:09 AM CURRENT SMOKER 5 cigarettes a day [facility] Jun 15, 2011 02:23 PM V1-PT DECLINES REF TO TOBACCO CESS PRGM [facility] Jun 15, 2011 02:23 PM V1-PT READY TO QUIT TOBACCO USE [facility] Apr 13, 2011 10:31 AM V1-PT DECLINES REF TO TOBACCO CESS PRGM [facility] Apr 13, 2011 10:31 AM V1-PT RECEIVES TOBACCO CESS MEDS OUTSIDE [facility] Apr 13, 2011 10:31 AM V1-PT THINKING ABOUT QUIT TOBACCO USE [facility]N [facility] Oct 16, 2010 08:52 AM QUIT TOBACCO USE IN PAST YEAR [facility] May 12, 2010 02:08 PM V1-PT DECLINES REF TO TOBACCO CESS PRGM [facility] May 12, 2010 02:08 PM V1-PT READY TO QUIT TOBACCO USE [facility] May 12, 2010 12:45 PM CURRENT SMOKER 3 cigarettes a day [facility] Encounter Notes: All associated encounter notes This section contains the clinical notes associated to the Encounter. Date/Time Encounter Note(s) Provider Source May 25, 2024 11:29 AM MEDICATION MGT NOT E: LOCAL TITLE: MEDICATION RENEWAL STANDARD TITLE: MEDICATION MGT NOTE DATE OF NOTE: MAY 25, 2024@11:29 ENTRY DATE: MAY 25, 2024@11:29:20 AUTHOR: RYAN HERMOSILLO EXP COSIGNER: URGENCY: STATUS: COMPLETED MEDICATION RENEWAL Has ADDENDA Hello, is requesting a refill on the following prescription(s). Please renew if appropriate.Thank you for your time. 1) ALBUTEROL INHALER 2) Ibuprofen 800mg tab /es/ RYAN HERMOSILLO Signed: 05/25/2024 11:30 Receipt Acknowledged By: * AWAITING SIGNATURE * CADEN FELIZ 05/25/2024 11:40 /jeana/ KIET FRANCIS, MSN, RN, CNL PRIMARY CARE TEAM NURSE 05/25/2024 ADDENDUM STATUS: COMPLETED Princess Anne was inquiring about her Dulera inhaler. Noted that it was mailed out on 05/22/24. /jeana/ KIET FRANCIS MSN, RN, CNL PRIMARY CARE TEAM NURSE Signed: 05/25/2024 11:40 RYAN HERMOSILLO NV CNTL [facility]
--- OUTSIDE RECORDS SUMMARY | 2024-08-04 17:26 | XMS_ITS ---
Author Name [facility] Organization [facility] [place] Address [address] [place] [address] Care Team Providers Care Aviation Metalsmith Name Role Phone CADEN FELIZ Primary Care [...] PLAN I Aug 19, 2019 PLAN I [id number] [phone] MEEK,SABINE ICEL PATIENT [employer] OPTIONS MEDICARE SUPPLEMEN MARCIA PLANM Y Aug 19, 2019 PLANMY [id number] MEEK,GR ICEL PATIENT [employer] OPTIONS MEDICARE SUPPLEMEN MARCIA AARP MEDIC ARE SUPPL Aug 19, 2019 PLAN MY [id number] MEEK,GR ICEL PATIENT AARP INS MEDICARE SUPPLEMEN MARCIA PLANM Y Aug 19, 2019 PLANMY [id number] [phone] MEEK,GR ICEL PATIENT AARP MED SUPP MEDICARE SUPPLEMEN MARCIA Jul 19, 2010 PLANMY [id number] MEEK,GR ICEL PATIENT MEDICARE (WNR) MEDICARE () PART B Aug 19, 2008 PART B [id number] [phone] MEEK,GR ICEL PATIENT MEDICARE (WNR) MEDICARE () PART B Aug 19, 2008 PART B [id number] [phone] MEEK,GR ICEL PATIENT MEDICARE (WNR) MEDICARE () PART B Aug 19, 2008 PART B [id number] [phone] MEEK,GR ICEL PATIENT MEDICARE (WNR) MEDICARE () PART B Aug 19, 2008 PART B [id number] MEEK,GR ICEL PATIENT MEDICARE (WNR) MEDICARE () PART B Aug 19, 2008 PART B [id number] MEEK,GR ICEL PATIENT MEDICARE (WNR) MEDICARE () PART B Aug 19, 2008 PART B [id number] [phone] MEEK,GR ICEL PATIENT MEDICARE (WNR) MEDICARE () PART B Aug 19, 2008 PART B [id number] [phone] MEEK,GR ICEL PATIENT MEDICARE (WNR) MEDICARE () PART A December 18, 2003 PART A [id number] MEEK,GR ICEL PATIENT MEDICARE (WNR) MEDICARE () PART A December 18, 2003 PART A [id number] MEEK,GR ICEL PATIENT MEDICARE (WNR) MEDICARE () PART A December 18, 2003 PART A [id number] [phone] MEEK,GR ICEL PATIENT MEDICARE (WNR) MEDICARE () PART A December 18, 2003 PART A [id number] MEEK,GR ICEL PATIENT MEDICARE (WNR) MEDICARE () PART A December 18, 2003 PART A [id number] MEEK,GR ICEL PATIENT MEDICARE (WNR) MEDICARE () PART A December 18, 2003 PART A [id number] [phone] SABINE MEEK PATIENT MEDICARE (WNR) MEDICARE (M) PART A December 18, 2003 PART A [id number] SABINE MEEK PATIENT Selected Encounter This section includes the information on record at [place] for the Encounter. Date/Time Encounter Type Encounter Description Reason Pro vider Source Mar 19, 2024 12:00 AM Outpatient Encounter COMMUNITY CARE [...] Appointment Type Appointme nt Facility Name Mar 23, 2024 01:00 PM AMBULATORY - [facility]IATRY [facility] [place] [facility] Mar 30, 2024 01:00 PM AMBULATORY [facility]AT[facility] [place] [facility] Apr 06, 2024 12:30 PM AMBULATORY - MEDICINE [facility] [place] [facility] Apr 06, 2024 01:00 PM AMBULATORY - MEDICINE [facility] [place] [facility] Apr 23, 2024 08:40 AM AMBULATORY - PSYCHIATRY [facility] [place] [facility] May 08, 2024 08:00 AM AMBULATORY - MEDICINE [facility] [place] [facility] May 11, 2024 01:00 PM AMBULATORY - PS[facility]CHIATRY [facility] [place] [facility] May 18, 2024 01:00 PM AMBULATORY - PS[facility]CHIATRY [facility] [place] [facility] May 20, 2024 09:30 AM AMBULATORY - MEDICINE [facility] [place] [facility] May 25, 2024 01:00 PM AMBULATORY - PS[facility]CHIATRY [facility] [place] [facility] Jun 08, 2024 09:30 AM AMBULATORY - PS[facility]CHIATRY [facility] [place] [facility] Jun 08, 2024 01:00 PM AMBULATORY - PS[facility]CHIATRY [facility] [place] [facility] Jun 15, 2024 01:00 PM AMBULATORY - PSYCHIATRY [facility] [place] [facility] Jun 19, 2024 09:00 AM AMBULATORY - PSYCHIATRY [facility] [place] [facility] Jun 27, 2024 09:30 AM AMBULATORY - MEDICINE [facility] [place] [facility] Jul 06, 2024 01:00 PM AMBULATORY - PSYCHIATRY [facility] [place] [facility] Jul 13, 2024 11:30 AM AMBULATORY - MEDICINE [facility] [place] [facility] Jul 13, 2024 01:00 PM AMBULATORY - PSYCHIATRY [facility] [place] [facility] Jul 20, 2024 09:30 AM AMBULATORY - PSYCHIATRY [facility] [place] [facility] Jul 21, 2024 09:30 AM AMBULATORY - MEDICINE [facility] Active, Pending, and Scheduled [...] 12:49 PM Consult Order COMMUNITY CARE-CARDIOLOGY Cons Order Control Clerk [facility] Apr 21, 2024 10:05 AM Consult Order COMMUNITY CARE-MAMMOGRAPHY FEMALE SCREEN Cons Order Control Clerk Blood Bank's Choice [facility] Lab Results: +/- 30 days of the encounter This section includes the Chemistry and Hematology Lab Results on record with [place] for the patient. Radiology Reports and Pathology Reports are provided separately, in subsequent sections. Lab Results This section contains the Chemistry/Hematology Results that were resulted 30 days before or 30 daysafter the date of the Encounter. Date/Time Source Result Type Result - Unit Interpretation Reference Range Comment Apr 06, 2024 01:21 PM [facility] COVID-19 FLU/RSV DIAGNOSTIC PANEL Specimen Type: [...] patient management decisions.Mary siddiqi FLUVID: HCPs: https://www.fda. gov/media/957450 /download. Patients: https://www.fda. gov/media/380876 /download NOTIFIED DR FELIZ 04/06/24@1552 BY EMAILED TO INFECTION CONTROL FAXED TO [facility] Ordering Provider: CADEN FELIZ Report Released Date/Time: Apr 06, 2024 12:55 PM Reporting Lab: [address] [address] Performing Lab: [address] [address] COVID-19 PCR (FLUVID) POSITIVE HH NEGATIVE FLU A PCR (FLUVID) NEGATIVE FLU B PCR (FLUVID) NEGATIVE RSV PCR (FLUVID) NEGATIVE Apr 06, 2024 01:21 PM [facility] SARS-COV-2 VARIANT SEQ PNL(V) Specimen Type: NASOPHARYNX Comment: -Pangolin version 4.3.1 (data version ) -Nextclade version 3.8.2 (data version 2024-03-04) https://www.cdc. gov/coronavirus/ 2019-ncov/cases- updates/variant- surveillance/jv iant-info.html The BrandProject SARS CoV 2 enrich-in Research Assay-GX is a next-generation sequencing (NGS) assay that determines the complete genome sequence of the SARS-CoV-2 virus. The assay contains variant-tolerant primers to broaden and improve the coverage for variant detection and increase the sensitivity of the panel to enable detection from lower viral titer samples. The assay is run on the Doorbot Sequencer, which performs automated library preparation, sequencing, analysis, and reporting. The sequence analysis includes determination of viral phylogenetic lineage by comparison to the reference strain Wuhan-Hu-1, GenBank: [id number]. Sequence determination may not be possible owing to inadequate quantity or quality of the viral RNA in the original specimen. Sequencing will not be attempted if the SARS-CoV-2 PCR assay result has a Ct > 30. Note that phylogenetic lineage assignment in some cases may upholstery covers inspector time for the same sequence as the [...] Apr 27, 2024 11:46 AM Reporting Lab: [address] [address] Performing Lab: [address] [address] SARS-COV-2 Lineage(WHV) MC.1 SARS-COV-2 Clade(WHV) 24C (Omicron) Feb 28, 2024 01:01 PM [facility] THYROID T4 FREE(FT4) (WROX) Specimen Type: SERUM No comment entered. Ordering Provider: CADEN FELIZ Report Released Date/Time: Feb 28, 2024 12:47 PM Reporting Lab: [facility] [address] Performing Lab: [facility] [address] [facility] [address] THYROID T4 FREE(FT4) (WROX) 0.93 ng/dL 0.6-1.6 Feb 28, 2024 01:01 PM [facility] TSH Specimen Type: SERUM No comment entered. Ordering Provider: CADEN FELIZ Report Released Date/Time: Feb 28, 2024 12:47 PM Reporting Lab: [facility] [address] Performing Lab: [facility] [address] TSH 0.54 u[IU]/mL 0.35-5.00 Feb 28, 2024 01:01 PM [facility] HEMOGLOBIN A1C PANEL Specimen Type: [...] Feb 28, 2024 12:47 PM Reporting Lab: [address] [address] Performing Lab: [place] [address] HEMOGLOBIN A1C 6.2 H 4.0-5.6 Feb 28, 2024 01:01 PM [facility] BASIC METABOLIC PANEL (non-fasting) Specimen Type: SERUM No comment entered. Ordering Provider: CADEN FELIZ Report Released Date/Time: Feb 28, 2024 12:47 PM Reporting Lab: [address] [address] Performing Lab: [address] [address] UREA NITROGEN 10 mg/dL 7-25 GLUCOSE 148 mg/dL H 65-100 SODIUM 140 mmol/L 135-145 POTASSIUM 4.7 mmol/L 3.5-5.0 CHLORIDE 101 mmol/L 100-110 CO2 30 meq/L 20-30 CREATININE, Serum 0.70 mg/dL 0.50-1.40 eGFR(CKD-EPI 2020) >90 mL/min >60 Feb 28, 2024 01:01 PM [facility] LIVER FUNCTION Specimen Type: SERUM No comment entered. Ordering Provider: CADEN FELIZ Report Released Date/Time: Feb 28, 2024 12:47 PM Reporting Lab: [address] [address] Performing Lab: [facility] [address] [facility] [address] PROTEIN,TOTA L 7.0 g/dL 6.0-8.3 ALBUMIN 4.2 g/dL 3.5-5.0 ALKALINE PHOSPHATASE 62 U/L 40-150 AST 15 U/L 5-34 ALT 20 U/L BILIRUBIN, TOTAL 0.4 mg/dL 0.2-1.2 Feb 28, 2024 01:01 PM [facility] CBC AND DIFF (AUTO) Specimen Type: BLOOD No comment entered. Ordering Provider: CADEN FELIZ Report Released Date/Time: Feb 28, 2024 12:47 PM Reporting Lab: [facility] [address] [facility] [address] Performing Lab: [address] [address] WBC 3.39 10*3/uL L 4.50-11.00 RBC 3.84 [...] took place. Date/Time Current Smoking Status Comment [facility] Feb 08, 2023 10:00 AM VA-TOBACCO FORMER USER [facility] [place] [facility] Tobacco Use History This section includes a history of the smoking, or tobacco-related health factors, that were collected on or before the date of the Encounter. The data comes from the [place] facility where the Encounter took place. Date/Time Smoking Status/Tobac co Use Comment [facility] Feb 08, 2023 10:00 AM VA-TOBACCO QUIT 15 YRS OR MORE [facility] [place] [facility] Mar 06, 2022 02:30 PM VA-TOBACCO FORMER USER [facility] [place] [facility] Mar 06, 2022 02:30 PM VA-TOBACCO QUIT 15 YRS OR MORE [facility] [place] [facility] Apr 04, 2021 10:28 AM VA-TOBACCO NEVER USED [facility] [place] [facility] May 03, 2020 02:00 PM VA-TOBACCO NEVER USED [facility] [place] [facility] Feb 25, 2019 08:14 AM VA-TOBACCO FORMER USER [facility] [place] [facility] Feb 25, 2019 08:14 AM VA-TOBACCO QUIT 5 TO < 15 YRS [facility] [place] [facility] Apr 04, 2018 10:41 AM QUIT TOBACCO USE 1-7 YEARS AGO [facility] [place] [facility] Oct 28, 2017 10:18 AM QUIT TOBACCO USE 1-7 YEARS AGO [facility] [place] [facility] Jan 22, 2017 01:08 PM QUIT TOBACCO USE 1-7 YEARS AGO [facility] [place] [facility] Jul 18, 2016 01:34 PM QUIT TOBACCO USE 1-7 YEARS AGO [facility] [place] [facility] January 10, 2016 10:32 AM QUIT TOBACCO USE 1-[facility] [place] [facility] Oct 13, 2015 11:05 AM QUIT TOBACCO USE 1-7 YEARS AGO [place] [facility] [place] [facility] Oct 19, 2014 01:53 PM QUIT TOBACCO USE > 7 YEARS AGO [facility] [place] [facility] January 02, 2014 01:30 AM QUIT TOBACCO USE IN PAST YEAR [facility] [place] [facility] Jun 18, 2013 09:00 AM CURRENT SMOKER 6 cigarettes qd [facility] Jun 18, 2013 09:00 AM V1-PT DECLINES TOBACCO CESSATION MEDS [facility] Jun 18, 2013 09:00 AM V1-PT NOT INTERESTED IN QUIT TOBACCO USE [facility] December 24, 2012 10:51 AM V1-PT DECLINES REF TO TOBACCO CESS PRGM [facility] [place] [facility] December 24, 2012 10:51 AM V1-PT DECLINES TOBACCO CESSATION MEDS [facility] December 24, 2012 10:51 AM V1-PT THINKING ABOUT QUIT TOBACCO USE [facility] [place] [facility] Jul 15, 2012 10:19 AM QUIT TOBACCO USE IN PAST YEAR [facility] Jan 25, 2012 05:02 PM QUIT TOBACCO USE IN PAST YEAR [facility] Sep 28, 2011 10:09 AM CURRENT SMOKER 5 cigarettes a day [facility] [place] [facility] Jun 15, 2011 02:23 PM V1-PT DECLINES REF TO TOBACCO CESS PRGM [facility] [place] [facility] Jun 15, 2011 02:23 PM V1-PT READY TO QUIT TOBACCO USE [facility] [place] [facility] Apr 13, 2011 10:31 AM V1-PT DECLINES REF TO TOBACCO CESS PRGM [facility] W[facility]N [facility] Apr 13, 2011 10:31 AM V1-PT RECEIVES TOBACCO CESS MEDS OUTSIDE [facility] Apr 13, 2011 10:31 AM V1-PT THINKING ABOUT QUIT TOBACCO USE [facility] Oct 16, 2010 08:52 AM QUIT TOBACCO USE IN PAST YEAR [facility] May 12, 2010 02:08 PM V1-PT DECLINES REF TO TOBACCO CESS PRGM [facility] May 12, 2010 02:08 PM V1-PT READY TO QUIT TOBACCO USE [facility] May 12, 2010 12:45 PM CURRENT SMOKER 3 cigarettes a day [facility] Radiology Reports: +/- 30 days [...] PM CHEST (2 VIEWS): OSIRIS MEEKL Cristina [id number] -[phone] F Exm Date: FEB 28, 2024@12:54 Req Phys: CADEN FELIZ Loc: CWM/NO/PACT 6 [facility] (Req'g Loc) Img Loc: [facility]/BUILDING 1 Service: Unknown [facility] , (Case [id number] COMPLETE) CHEST (2 VIEWS) (RAD Detailed) CPT:41730 Reason for Study: 73yo with ashtma and genearlized puritis Clinical History: to check lung dumont and lympthadenopathy Report Status: Verified Date Reported: FEB 28, 2024 Date Verified: FEB 28, 2024 Sign Wirer E-Sig:/ES/NEMO RODRIGUEZ JR Report: Study: PA and [...] Primary Interpreting Staff: NEMO RODRIGUEZ JR, Radiologist (Sign Wirer) /NEMO WEISS JR [facility] Encounter Notes: All associated encounter notes This section contains the clinical notes associated to the Encounter. Date/Time Encounter Note(s) Provider Source Mar 19, 2024 12:00 AM NONVA CONSULT: LOCAL TITLE: COMMUNITY CARE-CONSULT RESULT NOTE STANDARD TITLE: NONVA CONSULT DATE OF NOTE: MAR 19, 2024 ENTRY DATE: MAY 28, 2024@08:25:49 AUTHOR: BRIAN NARVAEZ EXP COSIGNER: URGENCY: STATUS: COMPLETED VistA Imaging - Scanned Document SCANNED DOCUMENT SIGNATURE NOT REQUIRED Electronically Filed: 05/28/2024 by: BRIAN DE LA CRUZ [facility] Mar 19, 2024 12:00 AM NONVA CONSULT: LOCAL TITLE: COMMUNITY CARE-CONSULT RESULT NOTE STANDARD TITLE: NONVA CONSULT DATE OF NOTE: MAR 19, 2024 ENTRY DATE: MAY 28, 2024@08:28:22 AUTHOR: BRIAN NARVAEZ EXP COSIGNER: URGENCY: STATUS: COMPLETED VistA Imaging - Scanned Document SCANNED DOCUMENT SIGNATURE NOT REQUIRED Electronically Filed: 05/28/2024 by: BRIAN DE LA CRUZ [facility]
--- OUTSIDE RECORDS SUMMARY | 2024-08-04 17:26 | XMS_ITS | Encounter Summary ---
Author Name [facility] [place] [facility] [place] [place] Address [address] [place] [address] Care Team Providers Care Freezer Person Name Role Phone CADEN FELIZ Primary Care [...] PLAN I Aug 19, 2019 PLAN I [id number] MEEK,GR ICEL PATIENT [employer] OPT[employer] MEDICARE SUPPLEMEN MARCIA PLANM Y Aug 19, 2019 PLANMY [id number] MEEK,GR ICEL PATIENT [employer] OPTIONS MEDICARE SUPPLEMEN MARCIA AARP MEDIC ARE SUPPL Aug 19, 2019 PLAN MY [id number] [phone] MEEK,GR ICEL PATIENT AARP INS MEDICARE SUPPLEMEN MARCIA PLANM Y Aug 19, 2019 PLANMY [id number] MEEK,GR ICEL PATIENT AARP MED SUPP MEDICARE SUPPLEMEN MARCIA Jul 19, 2010 [facility] [id number] MEEK,GR ICEL PATIENT MEDICARE (WNR) MEDICARE () PART B Aug 19, 2008 PART B [id number] [phone] MEEK,GR ICEL PATIENT MEDICARE (WNR) MEDICARE () PART B Aug 19, 2008 PART B [id number] MEEK,GR ICEL PATIENT MEDICARE (WNR) MEDICARE () PART B Aug 19, 2008 PART B [id number] [phone] MEEK,GR ICEL PATIENT MEDICARE (WNR) MEDICARE () PART B Aug 19, 2008 PART B [id number] MEEK,GR ICEL PATIENT MEDICARE (WNR) MEDICARE () PART B Aug 19, 2008 PART B [id number] [phone] MEEK,GR ICEL PATIENT MEDICARE (WNR) MEDICARE () PART B Aug 19, 2008 PART B [id number] [phone] MEEK,GR ICEL PATIENT MEDICARE (WNR) MEDICARE () PART B Aug 19, 2008 PART B [id number] MEKE,GR ICEL PATIENT MEDICARE (WNR) MEDICARE () PART A December 18, 2003 PART A [id number] MEEK,GR ICEL PATIENT MEDICARE (WNR) MEDICARE () PART A December 18, 2003 PART A [id number] [phone] MEEK,GR ICEL PATIENT MEDICARE (WNR) MEDICARE () PART A December 18, 2003 PART A [id number] MEEK,GR ICEL PATIENT MEDICARE (WNR) MEDICARE () PART A December 18, 2003 PART A [id number] MEEK,GR ICEL PATIENT MEDICARE (WNR) MEDICARE () PART A December 18, 2003 PART A [id number] MEEK,GR ICEL PATIENT MEDICARE (WNR) MEDICARE (M) PART A December 18, 2003 PART A [id number] SABINE MEEK ICEJacky PATIENT MEDICARE (WNR) MEDICARE (M) PART A December 18, 2003 PART A [id number] SABINE MEEK PATIENT Selected Encounter This section includes the information on record at [place] for the Encounter. Date/Time Encounter Type Encounter Description Reason Provider Source May 27, 2024 09:00 AM PRO PHONE CALL 5-10 MIN TELEPHONE ICD-10-CM F43.12 Post-traumatic stress disorder, chronic MARTINEZ AGUILERA IHE Encounter Template Text not used by [place] Assessments - Encounter Diagnoses This section includes the primary and secondary diagnoses documented for the Encounter. Date/Time Primary/Secondary Diagnosis Diagnosis Name Provider Source May 27, 2024 09:00 AM PRIMARY Post-traumatic stress disorder, chronic MARTINEZ AGUILERA [facility] Plan of Treatment: Future Appointments (+ 6 months) and Future Tests (+/- 45 days) The Plan of Treatment section includes [facility] care activities [facility] the [facility] [place] [facility] This section includes future appointments [...] 08, 2024 09:30 AM AMBULATORY - PSYCHIATRY [facility] Jun 08, 2024 01:00 PM AMBULATORY - PSYCHIATRY [facility] Jun 15, 2024 01:00 PM AMBULATORY - PSYCHIATRY [facility] Jun 19, 2024 09:00 AM AMBULATORY - PSYCHIATRY [facility] Jun 27, 2024 09:30 AM AMBULATORY - MEDICINE [facility] Jul 06, 2024 01:00 PM AMBULATORY - PSYCHIATRY [facility] Jul 13, 2024 11:30 AM AMBULATORY - MEDICINE [facility] Jul 13, 2024 01:00 PM AMBULATORY - PSYCHIATRY [facility] Jul 20, 2024 09:30 AM AMBULATORY - PS[facility]IATRY [facility] Jul 21, 2024 09:30 AM AMBULATORY - MEDICINE [facility] Jul 22, 2024 09:00 AM AMBULATORY - PSYCHIATRY [facility] Jul 27, 2024 01:00 PM AMBULATORY - PSYCHIATRY [facility] Aug 07, 2024 08:00 AM AMBULATORY - MEDICINE [facility] Aug 07, 2024 09:45 AM AMBULATORY - NONE [facility] Sep 23, 2024 09:00 AM AMBULATORY - PSYCHIATRY [facility] Oct 02, 2024 02:30 PM AMBULATORY - MEDICINE [facility] Oct 06, 2024 11:30 AM AMBULATORY - MEDICINE [facility] Nov 25, 2024 08:30 AM AMBULATORY - MEDICINE [facility] Active, Pending, and Scheduled Orders This section includes a listing of several types of active, pending, and scheduled orders, including clinic medications orders, diagnostic test orders, procedure orders and consult orders; where the start date of the order is 45 days before the date of the Encounter or 45 days after the date of theEncounter. The data comes from all [place] treatment facilities. Test Date/Time Test Type Test Details Facility Name Apr 21, 2024 10:05 AM Consult Order COMMUNITY CARE-MAMMOGRAPHY FEMALE SCREEN Cons Sugar Drier's Choice [facility] May 28, 2024 09:28 AM Consult Order COMMUNITY CARE-DENTAL SPECIALTY Cons Sugar Drier[facility] Choice [facility] Jun 26, 2024 01:51 PM Consult Order COMMUNITY CARE[facility]ACUPUNCTURE [facility] Social History: Smoking Status (Most current) [...] 06, 2024 12:30 PM VA-TOBACCO FORMER USER [facility] Tobacco Use History This section includes a history of the smoking, or tobacco-related health factors, that were collected on or before the date of the Encounter. The data comes from the [place] facility where the Encounter took place. Date/Time Smoking Status/Tobac co Use Comment Facility Apr 06, 2024 12:30 PM VA-TOBACCO QUIT 15 YRS OR MORE [facility] Feb 08, 2023 10:00 AM VA-TOBACCO FORMER USER [facility] Feb 08, 2023 10:00 AM VA-TOBACCO QUIT 15 YRS OR MORE [facility] Mar 06, 2022 02:30 PM VA-TOBACCO FORMER USER [facility] Mar 06, 2022 02:30 PM VA-TOBACCO QUIT 15 YRS OR MORE [facility] Apr 04, 2021 10:28 AM VA-TOBACCO NEVER USED [facility] May 03, 2020 02:00 PM VA-TOBACCO NEVER USED [facility] Feb 25, 2019 08:14 AM VA-TOBACCO FORMER USER [facility] Feb 25, [...] AGO [facility] Jul 18, 2016 01:34 PM QUIT TOBACCO USE 1-7 YEARS AGO [facility] January 10, 2016 10:32 AM QUIT TOBACCO USE 1-7 YEARS AGO [facility] Oct 13, 2015 11:05 AM QUIT TOBACCO USE 1-7 YEARS AGO [facility] Oct 19, 2014 01:53 PM QUIT TOBACCO USE > 7 YEARS AGO [facility] January 02, 2014 01:30 AM QUIT TOBACCO USE IN PAST YEAR [facility] Jun 18, 2013 09:00 AM CURRENT SMOKER 6 cigarettes qd [facility] Jun 18, 2013 09:00 AM V1-PT DECLINES TOBACCO CESSATION MEDS [facility] Jun 18, 2013 09:00 AM V1-PT NOT INTERESTED IN QUIT TOBACCO USE [facility] December 24, 2012 10:51 AM V1-PT DECLINES REF TO TOBACCO CESS [facility] December 24, 2012 10:51 AM V1-PT DECLINES TOBACCO CESSATION MEDS [facility] December 24, 2012 10:51 AM V1-PT THINKING ABOUT QUIT TOBACCO USE [facility] Jul 15, 2012 10:19 AM QUIT TOBACCO USE IN PAST YEAR [facility] Jan 25, 2012 05:02 PM QUIT TOBACCO USE IN PAST YEAR [facility] MICN [facility] Sep 28, 2011 10:09 AM CURRENT SMOKER 5 cigarettes a day [facility] Jun 15, 2011 02:23 PM V1-PT DECLINES REF TO TOBACCO CESS PRGM [facility] Jun 15, 2011 02:23 PM V1-PT READY TO QUIT TOBACCO USE [facility] Apr 13, 2011 10:31 AM V1-PT DECLINES REF TO TOBACCO CESS PRGM [facility] Apr 13, 2011 10:31 AM V1-PT RECEIVES TOBACCO CESS MEDS OUTSIDE [facility] Apr 13, 2011 10:31 AM V1-PT THINKING ABOUT QUIT TOBACCO USE [facility] Oct 16, 2010 08:52 AM QUIT TOBACCO USE IN PAST YEAR [facility] May 12, 2010 02:08 PM V1-PT DECLINES REF TO TOBACCO CESS PRGM [facility] May 12, 2010 02:08 PM V1-PT READY TO QUIT TOBACCO USE [facility] May 12, 2010 12:45 PM CURRENT SMOKER 3 cigarettes a day [facility] Encounter Notes: All associated encounter notes This section contains the clinical notes associated to the Encounter. Date/Time Encounter Note(s) Provider Source May 27, 2024 10:45 AM MENTAL HEALTH COMMUNICATION NOTE: LOCAL TITLE: PRIMARY MENTAL HEALTH CONTACT NOTE STANDARD TITLE: MENTAL HEALTH COMMUNICATION NOTE DATE OF NOTE: MAY 27, 2024@10:45 ENTRY DATE: MAY 27, 2024@10:45:24 AUTHOR: EVA AGUILERA EXP COSIGNER: URGENCY: STATUS: [facility] DURATION: 5 mins Buttonhole Tacker called after learning she had to cancel today's [facility] . apologized and said she was recovering from a procedure and still had swelling. [place] was rescheduled for 06/19 at 9am. DIAGNOSIS: PTSD ([place]) /es/ EVA AGUILERA, PhD STAFF PSYCHOLOGIST Signed: 05/27/2024 10:47 EVA AGUILERA [facility]
--- OUTSIDE RECORDS SUMMARY | 2024-08-04 17:26 | XMS_ITS ---
Author Name [facility] [place] [facility] [place] Address [address] [place] [address] Care Team Providers Care Comb Fixer Name Role Phone CADEN FELIZ Primary Care [...] PLAN I Aug 19, 2019 PLAN I [id number] MEEK,SABINE ICEL PATIENT [employer] OPTIONS MEDICARE SUPPLEMEN MARCIA PLANM Y Aug 19, 2019 PLANMY [id number] [phone] MEEK,GR ICEL PATIENT [employer] OPTIONS MEDICARE SUPPLEMEN MARCIA AARP MEDIC ARE SUPPL Aug 19, 2019 PLAN MY [id number] MEEK,GR ICEL PATIENT AARP INS MEDICARE SUPPLEMEN MARCIA PLANM Y Aug 19, 2019 PLANMY [id number] MEEK,GR ICEL PATIENT AARP MED SUPP MEDICARE SUPPLEMEN MARCIA Jul 19, 2010 PLANMY [id number] MEEK,GR ICEL PATIENT MEDICARE (WNR) MEDICARE () PART B Aug 19, 2008 PART B [id number] [phone] MEEK,GR ICEL PATIENT MEDICARE (WNR) MEDICARE () PART B Aug 19, 2008 PART B [id number] MEEK,GR ICEL PATIENT MEDICARE (WNR) MEDICARE () PART B Aug 19, 2008 PART B [id number] [phone] MEEK,GR ICEL PATIENT MEDICARE (WNR) MEDICARE () PART B Aug 19, 2008 PART B [id number] MEEK,GR ICEL PATIENT MEDICARE (WNR) MEDICARE () PART B Aug 19, 2008 PART B [id number] MEEK,GR ICEL PATIENT MEDICARE (WNR) MEDICARE () PART B Aug 19, 2008 PART B [id number] MEEK,GR ICEL PATIENT MEDICARE (WNR) MEDICARE () PART B Aug 19, 2008 PART B [id number] [phone] MEEK,GR ICEL PATIENT MEDICARE (WNR) MEDICARE () PART A December 18, 2003 PART A [id number] [phone] MEEK,GR ICEL PATIENT MEDICARE (WNR) MEDICARE () PART A December 18, 2003 PART A [id number] MEEK,GR ICEL PATIENT MEDICARE (WNR) MEDICARE () PART A December 18, 2003 PART A [id number] [id number] MEEK,GR ICEL PATIENT MEDICARE (WNR) MEDICARE () PART A December 18, 2003 PART A [id number] [phone] MEEK,GR ICEL PATIENT MEDICARE (WNR) MEDICARE () PART A December 18, 2003 PART A [id number] MEEK,GR ICEL PATIENT MEDICARE (WNR) MEDICARE () PART A December 18, 2003 PART A [id number] SABINE MEEK PATIENT MEDICARE (WNR) MEDICARE (M) PART A December 18, 2003 PART A [id number] SABINE MEEK PATIENT Selected Encounter This section includes the information on record at [place] for the Encounter. Date/Time Encounter Type Encounter Description Reason Pro vider Source Mar 10, 2024 12:00 AM Outpatient Encounter COMMUNITY CARE CONSULT IHE Encounter Template Text not used by [place] Plan of Treatment: Future Appointments (+ 6 [...] 11, 2024 03:15 PM AMBULATORY - MEDICINE [place] [facility] Mar 18, 2024 08:30 AM AMBULATORY - MEDICINE [place] [facility] Mar 23, 2024 01:00 PM AMBULATORY - PSYCHIATRY [place] [facility] [place] [facility] Mar 30, 2024 01:00 PM AMBULATORY - PSYCHIATRY [place] [facility] [place] [facility] Apr 06, 2024 12:30 PM AMBULATORY - MEDICINE [place] [facility] Apr 06, 2024 01:00 PM AMBULATORY - MEDICINE [place] [facility] Apr 23, 2024 08:40 AM AMBULATORY - PSYCHIATRY [place] [facility] [facility] May 08, 2024 08:00 AM AMBULATORY - MEDICINE [place] [facility] May 11, 2024 01:00 PM AMBULATORY - PSYCHIATRY [place] [facility] [facility] May 18, 2024 01:00 PM AMBULATORY - PSYCHIATRY [place] [facility] [place] [facility] May 20, 2024 09:30 AM AMBULATORY - MEDICINE [place] [facility] May 25, 2024 01:00 PM AMBULATORY - PSYCHIATRY [place] [facility] [place] [facility] Jun 08, 2024 09:30 AM AMBULATORY - PSYCHIATRY [place] [facility] [facility] Jun 08, 2024 01:00 PM AMBULATORY - PSYCHIATRY [place] [facility] [place] [facility] Jun 15, 2024 01:00 PM AMBULATORY - PSYCHIATRY [place] [facility] [place] [facility] Jun 19, 2024 09:00 AM AMBULATORY - PSYCHIATRY [place] [facility] Jun 27, 2024 09:30 AM AMBULATORY - MEDICINE [place] [facility] Jul 06, 2024 01:00 PM AMBULATORY - PSYCHIATRY [place] [facility] [facility] Jul 13, 2024 11:30 AM AMBULATORY - MEDICINE [place] [facility] Jul 13, 2024 01:00 PM [facility] Active, Pending, and Scheduled Orders This [...] 12:49 PM Consult Order COMMUNITY CARE-CARDIOLOGY Cons Web Production Manager[facility] Choice [facility] Apr 21, 2024 10:05 AM Consult Order COMMUNITY CARE-MAMMOGRAPHY FEMALE SCREEN Cons Web Production Manager's Choice [facility] Lab Results: +/- 30 days of [...] Range Comment Apr 06, 2024 01:21 PM [facility] COVID-19 FLU/RSV DIAGNOSTIC PANEL Specimen Type: [...] patient management decisions.Mary siddiqi FLUVID: HCPs: https://www.fda. gov/media/730616 /download. Patients: https://www.fda. gov/media/302915 /download NOTIFIED DR FELIZ 04/06/24@1552 BY EMAILED TO INFECTION CONTROL FAXED TO [facility] Ordering Provider: CADEN FELIZ Report Released Date/Time: Apr 06, 2024 12:55 PM Reporting Lab: [address] [address] Performing Lab: [address] [address] COVID-19 PCR (FLUVID) POSITIVE HH NEGATIVE FLU A PCR (FLUVID) NEGATIVE FLU B PCR (FLUVID) NEGATIVE RSV PCR (FLUVID) NEGATIVE Apr 06, 2024 01:21 PM [facility] SARS-COV-2 VARIANT SEQ PNL(V) Specimen Type: NASOPHARYNX Comment: -Pangolin version 4.3.1 (data version ) -Nextclade version 3.8.2 (data version 2024-03-04) https://www.cdc. gov/coronavirus/ 2019-ncov/cases- updates/variant- surveillance/jv iant-info.html The Connotate SARS CoV 2 ActionIQ Research Assay-GX is a next-generation sequencing (NGS) assay that determines the complete genome sequence of the SARS-CoV-2 virus. The assay contains variant-tolerant primers to broaden and improve the coverage for variant detection and increase the sensitivity of the panel to enable detection from lower viral titer samples. The assay is run on the [employer] Sequencer, which performs automated library preparation, sequencing, analysis, and reporting. The sequence analysis includes determination of viral phylogenetic lineage by comparison to the reference strain Wuhan-Hu-1, GenBank: [id number]. Sequence determination may not be possible owing to inadequate quantity or quality of the viral RNA in the original specimen. Sequencing will not be attempted if the SARS-CoV-2 PCR assay result has a Ct > 30. Note that phylogenetic lineage assignment in some cases may change consultant time for the same sequence as the virus continues to evolve and new sub lineages are created. The reported result will reflect the lineage assignment only at the time of initial sequence determination. This test was developed, and its performance characteristics determined by the [facility], which is certified under the Clinical Laboratory Improvement Amendments (CLIA) as qualified to perform high complexity clinical laboratory testing. This test is validated for clinical use at [facility] and should not be regarded as investigational or for research. The FDA does not require this test to go through premarket FDA review, and therefore it has not been cleared or approved by the FDA. This report was reviewed and approved by the on-service pathologist. Ordering Provider: CADEN FELIZ Report Released Date/Time: Apr 27, 2024 11:46 AM Reporting Lab: [address] [address] Performing Lab: [address] [address] SARS-COV-2 Lineage(WHV) MC.1 SARS-COV-2 Clade(WHV) 24C (Omicron) Feb 28, 2024 01:01 PM [facility] THYROID T4 FREE(FT4) (WROX) Specimen Type: SERUM No comment entered. Ordering Provider: CADEN FELIZ Report Released Date/Time: Feb 28, 2024 12:47 PM Reporting Lab: [facility] [address] Performing Lab: [facility] [address] [address] THYROID T4 FREE(FT4) (WROX) 0.93 ng/dL 0.6-1.6 Feb 28, 2024 01:01 PM [facility] TSH Specimen Type: SERUM No comment entered. Ordering Provider: CADEN FELIZ Report Released Date/Time: Feb 28, 2024 12:47 PM Reporting Lab: [facility] [address] Performing Lab: [facility] [address] TSH 0.54 u[IU]/mL 0.35-5.00 Feb 28, 2024 01:01 PM [facility] LIVER FUNCTION Specimen Type: SERUM No comment entered. Ordering Provider: CADEN FELIZ Report Released Date/Time: Feb 28, 2024 12:47 PM Reporting Lab: [address] [address] Performing Lab: [address] [address] PROTEIN,TOTA L 7.0 g/dL 6.0-8.3 ALBUMIN 4.2 g/dL 3.5-5.0 ALKALINE PHOSPHATASE 62 U/L 40-150 AST 15 U/L 5-34 ALT 20 U/L BILIRUBIN, TOTAL 0.4 mg/dL 0.2-1.2 Feb 28, 2024 01:01 PM [facility] HEMOGLOBIN A1C PANEL Specimen Type: BLOOD [...] Feb 28, 2024 12:47 PM Reporting Lab: [address] [address] Performing Lab: [address] [address] HEMOGLOBIN A1C 6.2 H 4.0-5.6 Feb 28, 2024 01:01 PM [facility] BASIC METABOLIC PANEL (non-fasting) Specimen Type: SERUM No comment entered. Ordering Provider: CADEN FELIZ Report Released Date/Time: Feb 28, 2024 12:47 PM Reporting Lab: [address] [address] Performing Lab: [address] [place] [address] UREA NITROGEN 10 mg/dL 7-25 GLUCOSE 148 mg/dL H 65-100 SODIUM 140 mmol/L 135-145 POTASSIUM 4.7 mmol/L 3.5-5.0 CHLORIDE 101 mmol/L 100-110 CO2 30 meq/L 20-30 CREATININE, Serum 0.70 mg/dL 0.50-1.40 eGFR(CKD-EPI 2020) >90 mL/min >60 Feb 28, 2024 01:01 PM [facility] CBC AND DIFF (AUTO) Specimen Type: BLOOD No comment entered. Ordering Provider: CADEN FELIZ Report Released Date/Time: Feb 28, 2024 12:47 PM Reporting Lab: [address] [address] Performing Lab: [address] [address] WBC 3.39 10*3/uL L 4.50-11.00 RBC 3.84 [...] place. Date/Time Current Smoking Status Comment [facility] Feb 08, 2023 10:00 AM VA-TOBACCO FORMER USER [place] [facility] Tobacco Use History This section includes a history of the smoking, or tobacco-related health factors, that were collected on or before the date of the Encounter. The data comes from the [place] facility where the Encounter took place. Date/Time Smoking Status/Tobac co Use Comment [facility] Feb 08, 2023 10:00 AM VA-TOBACCO QUIT 15 YRS OR MORE [place] [facility] [place] [facility] Mar 06, 2022 02:30 PM VA-TOBACCO FORMER USER [place] [facility] [place] [facility] Mar 06, 2022 02:30 PM VA-TOBACCO QUIT 15 YRS OR MORE [place] [facility] [place] [facility] Apr 04, 2021 10:28 AM VA-TOBACCO NEVER USED [place] [facility] [place] [facility] May 03, 2020 02:00 PM VA-TOBACCO NEVER USED [place] [facility] Feb 25, 2019 08:14 AM VA-TOBACCO FORMER USER [place] [facility] [place] [facility] Feb 25, 2019 08:14 AM VA-TOBACCO QUIT 5 TO < 15 YRS [place] [facility] [place] [facility] Apr 04, 2018 10:41 AM QUIT TOBACCO USE 1-7 YEARS AGO [place] [facility] [place] [facility] Oct 28, 2017 10:18 AM QUIT TOBACCO USE 1-7 YEARS AGO [place] [facility] [place] [facility] Jan 22, 2017 01:08 PM QUIT TOBACCO USE 1-7 YEARS AGO [place] [facility] [place] [facility] Jul 18, 2016 01:34 PM QUIT TOBACCO USE 1-7 YEARS AGO [place] [facility] January 10, 2016 10:32 AM QUIT TOBACCO USE 1-[facility] [place] [facility] Oct 13, 2015 11:05 AM QUIT TOBACCO USE 1-7 YEARS AGO [place] [facility] Oct 19, 2014 01:53 PM QUIT TOBACCO USE > 7 YE[facility]GO [facility] [place] [place] [facility] January 02, 2014 01:30 AM QUIT TOBACCO USE IN PAST YEAR [facility] [place] [facility] Jun 18, 2013 09:00 AM CURRENT SMOKER 6 cigarettes qd [facility] Jun 18, 2013 09:00 AM V1-PT DECLINES TOBACCO CESSATION MEDS [facility] Jun 18, 2013 09:00 AM V1-PT NOT INTERESTED IN QUIT TOBACCO USE [facility] December 24, 2012 10:51 AM V1-PT DECLINES REF TO TOBACCO CESS PR[facility] [place] [place] [facility] December 24, 2012 10:51 AM V1-PT DECLINES TOBACCO CESSATION MEDS [facility] December 24, 2012 10:51 AM V1-PT THINKING ABOUT QUIT TOBACCO USE [facility] [place] [facility] Jul 15, 2012 10:19 AM QUIT TOBACCO USE IN PAST YEAR [facility] Jan 25, 2012 05:02 PM QUIT TOBACCO USE IN PAST YEAR [facility] Sep 28, 2011 10:09 AM CURRENT SMOKER 5 cigarettes a day [facility] [place] [facility] Jun 15, 2011 02:23 PM V1-PT DECLINES REF TO TOBACCO CESS PRGM [facility] [place] [facility] Jun 15, 2011 02:23 PM V1-PT READY TO QUIT TOBACCO USE [facility] [place] [facility] Apr 13, 2011 10:31 AM V1-PT DECLINES REF TO TOBACCO CESS PRGM [facility] WSTRN [facility] Apr 13, 2011 10:31 AM V1-PT RECEIVES TOBACCO CESS MEDS OUTSIDE [facility] MICTRN [facility] Apr 13, 2011 10:31 AM V1-PT THINKING ABOUT QUIT TOBACCO USE [facility] Oct 16, 2010 08:52 AM QUIT TOBACCO USE IN PAST YEAR [facility] May 12, 2010 02:08 PM V1-PT DECLINES REF TO TOBACCO CESS PRGM [facility] May 12, 2010 02:08 PM V1-PT READY TO QUIT TOBACCO USE [facility] May 12, 2010 12:45 PM CURRENT SMOKER 3 cigarettes a day [facility] Radiology Reports: +/- 30 days of [...] the Encounter. The data comes from all [facility] facilities. Date/Time Radiology Report Provider Source Feb 28, 2024 12:54 PM CHEST (2 VIEWS): OSIRIS MEEKL Cristina [id number] F Exm Date: FEB 28, 2024@12:54 Req Phys: CADEN FELIZ Loc: CWM/NO/PACT 6 [facility] (Req'g Loc) Img Loc: [facility]/BUILDING 1 Service: Unknown [facility] , (Case [id number] COMPLETE) CHEST (2 VIEWS) (RAD Detailed) CPT:09655 Reason for Study: 73yo with ashtma and genearlized puritis Clinical History: to check lung dum[place] and lympthadenopathy Report Status: Verified Date Reported: FEB 28, 2024 Date Verified: FEB 28, 2024 Television Script Writer E-Sig:/ES/NEMO RODRIGUEZ JR Report: Study: PA and [...] Primary Interpreting Staff: NEMO RODRIGUEZ JR, Radiologist (Television Script Writer) /NEMO WEISS JR [facility] Encounter Notes: All associated encounter notes This section contains the clinical notes associated to the Encounter. Date/Time Encounter Note(s) Provider Source Mar 10, 2024 12:00 AM NONVA CONSULT: LOCAL TITLE: [facility]-CONSULT RESULT NOTE STANDARD TITLE: NONVA CONSULT DATE OF NOTE: MAR 10, 2024 ENTRY DATE: MAY 28, 2024@08:43:29 AUTHOR: BRIAN NARVAEZ EXP COSIGNER: URGENCY: STATUS: COMPLETED VistA Imaging - Scanned Document SCANNED DOCUMENT SIGNATURE NOT REQUIRED Electronically Filed: 05/28/2024 by: BRIAN DE LA CRUZ [facility]
--- OUTSIDE RECORDS SUMMARY | 2024-08-04 17:27 | XMS_ITS | Encounter Summary ---
Author Name [facility] [facility] Address [address] [place] [address] Care Team Providers Care Stamp Mounter Name Role Phone CADEN FELIZ Primary Care [...] PLAN I Aug 19, 2019 PLAN I [id number] MEEK,GR ICEL PATIENT [employer] MEDICARE SUPPLEMEN MARCIA PLANM Y Aug 19, 2019 PLANMY [id number] [phone] MEEK,GR ICEL PATIENT [employer] OPTIONS MEDICARE SUPPLEMEN MARCIA AARP MEDIC ARE SUPPL Aug 19, 2019 PLAN MY [id number] MEEK,GR ICEL PATIENT A[employer] INS MEDICARE SUPPLEMEN MARCIA PLANM Y Aug 19, 2019 PLANMY [id number] MEEK,GR ICEL PATIENT AARP MED SUPP MEDICARE SUPPLEMEN MARCIA Jul 19, 2010 PLANMY [id number] [phone] MEEK,GR ICEL PATIENT MEDICARE (WNR) MEDICARE () PART B Aug 19, 2008 PART B [id number] [phone] MEEK,GR ICEL PATIENT MEDICARE (WNR) MEDICARE () PART B Aug 19, 2008 PART B [id number] MEEK,GR ICEL PATIENT MEDICARE (WNR) MEDICARE () PART B Aug 19, 2008 PART B [id number] MEEK,GR ICEL PATIENT MEDICARE (WNR) MEDICARE () PART B Aug 19, 2008 PART B [id number] MEEK,GR ICEL PATIENT MEDICARE (WNR) MEDICARE () PART B Aug 19, 2008 PART B [id number] [phone] MEEK,GR ICEL PATIENT MEDICARE (WNR) MEDICARE () PART B Aug 19, 2008 PART B [id number] MEEK,GR ICEL PATIENT MEDICARE (WNR) MEDICARE () PART B Aug 19, 2008 PART B [id number] [phone] MEEK,GR ICEL PATIENT MEDICARE (WNR) MEDICARE () PART A December 18, 2003 PART A [id number] MEEK,GR ICEL PATIENT MEDICARE (WNR) MEDICARE () PART A December 18, 2003 PART A [id number] [phone] MEEK,GR ICEL PATIENT MEDICARE (WNR) MEDICARE () PART A December 18, 2003 PART A [id number] [phone] MEEK,GR ICEL PATIENT MEDICARE (WNR) MEDICARE () PART A December 18, 2003 PART A [id number] [phone] MEEK,GR ICEL PATIENT MEDICARE (WNR) MEDICARE () PART A December 18, 2003 PART A [id number] MEEK,GR ICEL PATIENT MEDICARE (WNR) MEDICARE () PART A December 18, 2003 PART A [id number] SABINE MEEK PATIENT MEDICARE (WNR) MEDICARE (M) PART A December 18, 2003 PART A [id number] [phone] SABINE MEEK PATIENT Selected Encounter This section includes the information on record at [place] for the Encounter. Date/Time Encounter Type Encounter Description Reason Provider Source Jun 08, 2024 01:00 PM GROUP PS[facility]CH[facility] ICD-10-CM F43.12 Post-traumati c stress disorder, chronic MANUELEMARY E IHE Encounter Template Text not used by [place] Assessments - Encounter Diagnoses This section includes the primary and secondary diagnoses documented for the Encounter. Date/Time Primary/Secondary Diagnosis Diagnosis Name Provider Source Jun 08, 2024 02:54 PM PRIMARY Post-traumatic stress disorder, chronic MARY GIBBS E [facility] [place] [facility] Plan of Treatment: Future Appointments (+ 6 months) and Future Tests (+/- 45 days) The Plan of Treatment section includes future care activities for the [facility] This section includes future appointments and future orders which are active, pending or scheduled. Future Appointments This section includes appointments that were scheduled to occur 6 months from the date of the Encounter, up to a maximum of 20 appointments. The data comes from all [place] treatment facilities. Appointment Date/Time Appointment Type Appointme nt Facility Name Jun 15, 2024 01:00 PM AMBULATORY - PSYCHIATRY [facility] [place] [facility] Jun 19, 2024 09:00 AM AMBULATORY - PSYCHIATRY [facility] [place] [facility] Jun 27, 2024 09:30 AM AMBULATORY - MEDICINE HI [facility] [place] [facility] Jul 06, 2024 01:00 PM AMBULATORY - PSYCHIATRY [place] [facility] [place] [facility] Jul 13, 2024 11:30 AM AMBULATORY - MEDICINE [facility] [place] [facility] Jul 13, 2024 01:00 PM AMBULATORY - PSYCHIATRY [facility] [place] [facility] Jul 20, 2024 09:30 AM AMBULATORY - PSYCHIATRY [place] [facility] [place] [facility] Jul 21, 2024 09:30 AM AMBULATORY - MEDICINE [facility] [place] [facility] Jul 22, 2024 09:00 AM AMBULATORY - PSYCHIATRY [facility] [place] [facility] Jul 27, 2024 01:00 PM AMBULATORY - PSYCHIATRY [facility] [place] [facility] Aug 07, 2024 08:00 AM AMBULATORY - MEDICINE [facility] [place] [facility] Aug 07, 2024 09:45 AM [facility] [place] [facility] Sep 23, 2024 09:00 AM AMBULATORY - PSYCHIATRY [place] [facility] [place] [facility] Oct 02, 2024 02:30 PM [facility] Oct 06, 2024 11:30 AM AMBULATORY - MEDICINE [place] [facility] [place] [facility] Nov 25, 2024 08:30 AM [facility]ULAT[facility] Active, Pending, and [...] Date/Time Test Type Test Details Facility Name May 28, 2024 09:28 AM Consult Order COMMUNITY CARE-DENTAL SPECIALTY Cons Cut [facility] Jun 26, 2024 01:51 PM Consult Order COMMUNITY CARE-ACUPUNCTURE Cons Cut Off Worker's Choice [facility] Jul 20, 2024 01:21 PM Consult Order COMMUNITY CARE-PULMONARY Cons Cut Off Worker's Choice [facility] Social History: Smoking Status (Most current) [...] 06, 2024 12:30 PM VA-TOBACCO FORMER USER [facility] Tobacco Use History This section includes a history of the smoking, or tobacco-related health factors, that were collected on or before the date of the Encounter. The data comes from the [place] facility where the Encounter took place. Date/Time Smoking Status/Tobac co Use Comment Facility Apr 06, 2024 12:30 PM VA-TOBACCO QUIT 15 YRS OR MORE [facility] [place] [facility] Feb 08, 2023 10:00 AM VA-TOBACCO FORMER USER [facility] [place] [facility] Feb 08, 2023 10:00 AM VA-TOBACCO QUIT 15 YRS OR MORE [facility] [place] [facility] Mar 06, 2022 02:30 PM VA-TOBACCO FORMER USER [facility] [place] [facility] Mar 06, 2022 02:30 PM VA-TOBACCO QUIT 15 YRS OR MORE [facility] [place] [facility] Apr 04, 2021 10:28 AM VA-TOBACCO NEVER USED [place] [facility] [place] [facility] May 03, 2020 02:00 PM VA-TOBACCO NEVER USED [place] [facility] [place] [facility] Feb 25, 2019 08:14 AM VA-TOBACCO FORMER USER [facility] [place] [facility] Feb 25, 2019 08:14 AM VA-TOBACCO QUIT 5 TO < 15 YRS [facility] [place] [facility] Apr 04, 2018 10:41 AM QUIT TOBACCO USE 1-7 YEARS AGO [facility] [place] [facility] Oct 28, 2017 10:18 AM QUIT TOBACCO USE 1-7 YEARS AGO [facility] [place] [facility] Jan 22, 2017 01:08 PM QUIT TOBACCO USE 1-7 YEARS AGO [facility] [place] [facility] Jul 18, 2016 01:34 PM QUIT TOBACCO USE 1-7 YEARS AGO [facility] [place] [facility] January 10, 2016 10:32 AM QUIT TOBACCO USE 1-7 YEARS AGO [facility] [place] [facility] Oct 13, 2015 11:05 AM QUIT TOBACCO USE 1-7 YEARS AGO [facility] [place] [facility] Oct 19, 2014 01:53 PM QUIT TOBACCO USE > 7 YEARS AGO [facility] [place] [facility] January 02, 2014 01:30 AM QUIT TOBACCO USE IN PAST YEAR [facility] [place] [facility] Jun 18, 2013 09:00 AM CURRENT SMOKER 6 cigarettes qd [facility] Jun 18, 2013 09:00 AM V1-PT DECLINES TOBACCO CESSATION [facility] Jun 18, 2013 09:00 AM V1-PT NOT INTERESTED IN QUIT TOBACCO USE [facility] MICN [facility] December 24, 2012 10:51 AM V1-PT DECLINES REF TO TOBACCO CESS [facility] December 24, 2012 10:51 AM V1-PT DECLINES TOBACCO CESSATION MEDS [facility] December 24, 2012 10:51 AM V1-PT THINKING ABOUT QUIT TOBACCO USE [facility]N [facility] Jul 15, 2012 10:19 AM QUIT TOBACCO USE IN PAST YEAR [facility] MICN [facility] Jan 25, 2012 05:02 PM QUIT TOBACCO USE IN PAST YEAR [facility] MICN [facility] Sep 28, 2011 10:09 AM CURRENT SMOKER 5 cigarettes a day [facility] Jun 15, 2011 02:23 PM V1-PT DECLINES REF TO TOBACCO CESS [facility] Jun 15, 2011 02:23 PM V1-PT READY TO QUIT TOBACCO USE [facility] MIC[facility] Apr 13, 2011 10:31 AM V1-PT DECLINES REF TO TOBACCO CESS [facility] Apr 13, 2011 10:31 AM V1-PT RECEIVES TOBACCO CESS MEDS OUTSIDE [facility] MICTRN [facility] Apr 13, 2011 10:31 AM V1-PT THINKING ABOUT QUIT TOBACCO USE [facility] Oct 16, 2010 08:52 AM QUIT TOBACCO USE IN PAST YEAR [facility] MICN [facility] May 12, 2010 02:08 PM V1-PT DECLINES REF TO TOBACCO CESS PR[facility] May 12, 2010 02:08 PM V1-PT READY TO QUIT TOBACCO USE [facility] May 12, 2010 12:45 PM CURRENT SMOKER 3 cigarettes a day [place] [facility] [place] [facility] Encounter Notes: All associated encounter notes This section contains the clinical notes associated to the Encounter. Date/Time Encounter Note(s) Provider Source Jun 08, 2024 02:53 PM PSYCHIATRY GROUP COUNSELING NOTE: LOCAL TITLE: PSYCHOLOGY GROUP NOTE STANDARD TITLE: PSYCHIATRY GROUP COUNSELING NOTE DATE OF NOTE: JUN 08, 2024@14:53 ENTRY DATE: JUN 08, 2024@14:53:33 AUTHOR: DEBBIE GIBBS EXP COSIGNER: URGENCY: STATUS: COMPLETED [facility] Mindful Compassion Group Therapy Note SESSION MODALITY: [facility] (cl[facility] to [facility] location) [place]'s location: Provider confirmed that is currently located at Primary Address listed in [facility]. Primary phone number: Confirmed for all participants. [place] has provided verbal consent either today or previously when seen via V[facility] in mental health. This consent was obtained after a full explanation of the risk and benefits of using telehealth for mental health appointments. Alternatives for obtaining care through an in-person mental health visit and the [place]'s right of refusal at any time during this session have been explained. [place]'s location/environment was surveyed by this provider to identify all participants and the Virtual Medical Room was locked (via enabling button option in R) once all invited/required attendees were present. ~~~ Airfield Engineer Officer: Debbie Gibbs, PhD PROCEDURE: 60-minute interactive hybrid VVC/F2F group therapy session Problem: Difficulty being present in the moment and fostering compassion Objective: Explored and practice mindful compassion Number of Veterans Present in Group: 4 GROUP CONTENT: Group members engaged in the Soften, Allow,and Love mindfulness practice. Group members checked in by sharing a word to describe their current experience or ways they would describe snowflakes or the experience of being in snow. Group members explored the idea of opening to all experiences through the metaphor of how one relates to snow. The quote If you choose not to find catalina in the snow, you will have less catalina in your life but still the same amount of snow was explored. Group members engaged in the Coming Into Contact mindfulness practice focusing on awareness and acceptance of emotional experiences. Group members committed to utilize this between now and next group. PROGRESS: arrived on time and was an active and appropriate participant. [place] participated in the mindfulness practices and group discussions. Mental Status was not formally assessed due to the nature of the encounter. maintained appropriate eye contact and was alert. [place] spoke clearly and coherently. [place]'s thoughts were linear and related. [place]'s affect was congruent to content and appropriate [...] PhD Clinical Psychologist, Mental Health Clinic Signed: 06/08/2024 14:56 DEBBIE GIBBS [facility]
--- OUTSIDE RECORDS SUMMARY | 2024-08-04 17:27 | XMS_ITS | Encounter Summary ---
Author Name [facility] [place] [facility] [place] Address [address] [place] [address] Care Team Providers Care Crm Dynamics Developer Name Role Phone CADEN FELIZ Primary Care [...] PLAN I Aug 19, 2019 PLAN I [id number] MEEK,GR ICEL PATIENT [employer] OPTIONS MEDICARE SUPPLEMEN MARCIA PLANM Y Aug 19, 2019 PLANMY [id number] MEEK,GR ICEL PATIENT [employer] OPTIONS MEDICARE SUPPLEMEN MARCIA AARP MEDIC ARE SUPPL Aug 19, 2019 PLAN MY [id number] [phone] MEEK,GR ICEL PATIENT AARP INS MEDICARE SUPPLEMEN MARCIA PLANM Y Aug 19, 2019 PLANMY [id number] MEEK,GR ICEL PATIENT AARP MED SUPP MEDICARE SUPPLEMEN MARCIA Jul 19, 2010 PLANMY [id number] MEEK,GR ICEL PATIENT MEDICARE (WNR) MEDICARE () PART B Aug 19, 2008 PART B [id number] [phone] MEEK,GR ICEL PATIENT MEDICARE (WNR) MEDICARE () PART B Aug 19, 2008 PART B [id number] [phone] MEEK,GR ICEL PATIENT MEDICARE (WNR) MEDICARE () PART B Aug 19, 2008 PART B [id number] [phone] MEEK,GR ICEL PATIENT MEDICARE (WNR) MEDICARE () PART B Aug 19, 2008 PART B [id number] MEEK,GR ICEL PATIENT MEDICARE (WNR) MEDICARE () PART B Aug 19, 2008 PART B [id number] [phone] MEEK,GR ICEL PATIENT MEDICARE (WNR) MEDICARE () PART B Aug 19, 2008 PART B [id number] [phone] MEEK,GR ICEL PATIENT MEDICARE (WNR) MEDICARE () PART B Aug 19, 2008 PART B [id number] [phone] MEEK,GR ICEL PATIENT MEDICARE (WNR) MEDICARE () PART A December 18, 2003 PART A [id number] MEEK,GR ICEL PATIENT MEDICARE (WNR) MEDICARE () PART A December 18, 2003 PART A [id number] [phone] MEEK,GR ICEL PATIENT MEDICARE (WNR) MEDICARE () PART A December 18, 2003 PART A [id number] [phone] MEEK,GR ICEL PATIENT MEDICARE (WNR) MEDICARE () PART A December 18, 2003 PART A [id number] [phone] MEEK,GR ICEL PATIENT MEDICARE (WNR) MEDICARE () PART A December 18, 2003 PART A [id number] [phone] MEEK,GR ICEL PATIENT MEDICARE (WNR) MEDICARE () PART A December 18, 2003 PART A [id number] SABINE MEEK ICEJacky PATIENT MEDICARE (WNR) MEDICARE (M) PART A December 18, 2003 PART A [id number] SABINE MEEK PATIENT Selected Encounter This section includes the information on record at [place] for the Encounter. Date/Time Encounter Type Encounter Description Reason Pro vider Source Jun 03, 2024 10:35 AM Outpatient Encounter ADMIN PAT ACTIVTIES (MASNONCT) IHE Encounter Template Text not used by [place] Plan of Treatment: Future Appointments (+ 6 months) and Future Tests (+/- 45 days) The Plan of Treatment section includes future care activities for the [facility] [place] [facility] This section includes future appointments [...] 08, 2024 09:30 AM AMBULATORY [place]ATRY [place] [facility] [place] [facility] Jun 08, 2024 01:00 PM AMBULATORY - [place]ATRY [place] [facility] [place] [facility] Jun 15, 2024 01:00 PM AMBULATORY [place]ATRY [place] [facility] [place] [facility] Jun 19, 2024 09:00 AM [facility] [place] [facility] [place] [facility] Jun 27, 2024 09:30 AM AMBULATORY [place]ICINE [place] [facility] [place] [facility] Jul 06, 2024 01:00 PM AMBULATORY [place] [facility]ATRY [facility] [place] [facility] Jul 13, 2024 11:30 AM AMBULATORY [place]ICINE [place] [facility] [place] [facility] Jul 13, 2024 01:00 PM AMBULATORY - PS[place]IATRY [facility] [place] [facility] Jul 20, 2024 09:30 AM AMBULATORY [place]IATRY [facility] [place] [facility] Jul 21, 2024 09:30 AM AM[place]ULATORY [place]IC[place] [facility] [place] [facility] Jul 22, 2024 09:00 AM AMBULATORY [place]ATRY [place] [facility] [place] [facility] Jul 27, 2024 01:00 PM AMBULATORY [place]ATRY [place] [facility] [place] [facility] Aug 07, 2024 08:00 AM AM[place]ULATORY [place]INE [place] [facility] [place] [facility] Aug 07, 2024 09:45 AM AMBULATORY - NONE [facility] [place] [facility] Sep 23, 2024 09:00 AM AMBULATORY - PS[place]CHIATRY [facility] [place] [facility] Oct 02, 2024 02:30 PM AM[place]ULATORY [place]ICINE [place] [facility] [facility] Oct 06, 2024 11:30 AM AM[place]UL[place]ORY [place] [facility] [place] [facility] Nov 25, 2024 08:30 AM [facility] [place] [facility] [place] [facility] Active, Pending, and Scheduled Orders [...] Consult Order COMMUNITY CARE-MAMMOGRAPHY FEMALE SCREEN Cons Cook Ice Cream's Choice [facility] May 28, 2024 09:28 AM Consult Order COMMUNITY CARE-DENTAL SPECIALTY Cons Cook Ice [facility] [place] [facility] Jun 26, 2024 01:51 PM Consult Order COMMUNITY CARE-ACUPUNCTURE Cons Cook Ice [facility] Social History: Smoking Status (Most current) [...] place. Date/Time Current Smoking Status Elvin zepeda Apr 06, 2024 12:30 PM VA-TOBACCO [facility]ER [facility] Tobacco Use History This section includes a history of the smoking, or tobacco-related health factors, that were collected on or before the date of the Encounter. The data comes from the [place] facility where the Encounter took place. Date/Time Smoking Status/Tobac co Use Comment Facility Apr 06, 2024 12:30 PM VA-TOBACCO QUIT 15 YRS OR MORE [facility] [place] [facility] Feb 08, 2023 10:00 AM VA-TOBACCO FORMER USER [facility] [place] [facility] Feb 08, 2023 10:00 AM VA-TOBACCO QUIT 15 YRS OR MORE [facility] [place] [facility] Mar 06, 2022 02:30 PM VA-TOBACCO FORMER USER [facility] [place] [facility] Mar 06, 2022 02:30 PM VA-TOBACCO QUIT 15 YRS OR MORE [facility] [place] [facility] Apr 04, 2021 10:28 AM VA-TOBACCO NEVER USED [place] [facility] [place] [facility] May 03, 2020 02:00 PM VA-TOBACCO NEVER USED [place] [facility] [facility] Feb 25, 2019 08:14 AM VA-TOBACCO FORMER USER [facility] [place] [facility] Feb 25, 2019 08:14 AM VA-TOBACCO QUIT 5 TO < 15 YRS [facility] [place] [facility] Apr 04, 2018 10:41 AM QUIT TOBACCO USE 1-7 YEARS AGO [facility] [place] [facility] Oct 28, 2017 10:18 AM QUIT TOBACCO USE 1-7 YEARS AGO [facility] [place] [facility] Jan 22, 2017 01:08 PM QUIT TOBACCO USE 1-7 YEARS AGO [facility] [place] [facility] Jul 18, 2016 01:34 PM QUIT TOBACCO USE 1-7 YEARS AGO [facility] [place] [facility] January 10, 2016 10:32 AM QUIT TOBACCO USE 1-7 YEARS AGO [facility] [place] [facility] Oct 13, 2015 11:05 AM QUIT TOBACCO USE 1-7 YEARS AGO [facility] [place] [facility] Oct 19, 2014 01:53 PM QUIT TOBACCO USE > 7 YEARS AGO [facility] [place] [facility] January 02, 2014 01:30 AM QUIT TOBACCO USE IN PAST YEAR [facility] [place] [facility] Jun 18, 2013 09:00 AM CURRENT SMOKER 6 cigarettes qd [facility] [place] [facility] Jun 18, 2013 09:00 AM V1-PT DECLINES TOBACCO CESSATION MEDS [facility] [place] [facility] Jun 18, 2013 09:00 AM V1-PT NOT INTERESTED IN QUIT TOBACCO USE [facility] [place] [facility] December 24, 2012 10:51 AM V1-PT DECLINES REF TO TOBACCO CESS PRGM [place] [facility] [place] [facility] December 24, 2012 10:51 AM V1-PT DECLINES TOBACCO CESSATION MEDS [facility] [place] [facility] December 24, 2012 10:51 AM V1-PT THINKING ABOUT QUIT TOBACCO USE [facility] [place] [facility] Jul 15, 2012 10:19 AM QUIT TOBACCO USE IN PAST [facility]AR [facility] Jan 25, 2012 05:02 PM QUIT TOBACCO USE IN PAST YEAR [facility] Sep 28, 2011 10:09 AM CURRENT SMOKER 5 cigarettes a day [facility] Jun 15, 2011 02:23 PM V1-PT DECLINES REF TO TOBACCO CESS PRGM [facility] Jun 15, 2011 02:23 PM V1-PT READY TO QUIT TOBACCO USE [facility] Apr 13, 2011 10:31 AM V1-PT DECLINES REF TO TOBACCO CESS PRGM [facility] Apr 13, 2011 10:31 AM V1-PT RECEIVES TOBACCO CESS MEDS OUTSIDE [facility] Apr 13, 2011 10:31 AM V1-PT THINKING ABOUT QUIT TOBACCO USE [facility] [place] [facility] Oct 16, 2010 08:52 AM QUIT TOBACCO USE IN PAST YEAR [facility] [place] [facility] May 12, 2010 02:08 PM V1-PT DECLINES REF TO TOBACCO CESS PRGM [facility] May 12, 2010 02:08 PM V1-PT READY TO QUIT TOBACCO USE [facility] [place] [facility] May 12, 2010 12:45 PM CURRENT SMOKER 3 cigarettes a [facility] Encounter Notes: All associated encounter notes This section contains the clinical notes associated to the Encounter. Date/Time Encounter Note(s) Provider Source Jun 03, 2024 10:35 AM MEDICATION MGT NOT E: LOCAL TITLE: MEDICATION RENEWAL STANDARD TITLE: MEDICATION MGT NOTE DATE OF NOTE: JUN 03, 2024@10:35 ENTRY DATE: JUN 03, 2024@10:35:21 AUTHOR: JAVIER HENDRICKS EXP COSIGNER: URGENCY: STATUS: COMPLETED [facility] for mailing please please renew if appropriate Active Outpatient Medications (including Supplies): Active Outpatient Medications Status === 11) IBUPROFEN 800MG TAB TAKE ONE TABLET BY MOUTH EVERY 8 ACTIVE HOURS NEEDED TAKE WITH FOOD /es/ JAVIER HENDRICKS COMPLETION ENGINEER Signed: 06/03/2024 10:36 JAVIER HENDRICKS [place] [facility] [facility]
--- OUTSIDE RECORDS SUMMARY | 2024-08-04 17:27 | XMS_ITS | Encounter Summary ---
Author Name [facility] Organization [facility] Address [address] [place] [address] Care Team Providers Care Insurance Sales Executive Name Role Phone CADEN FELIZ Primary Care [...] PLAN I Aug 19, 2019 PLAN I [id number] [phone] MEEK,GR ICEL PATIENT [employer] OPTIONS MEDICARE SUPPLEMEN MARCIA PLANM Y Aug 19, 2019 PLANMY [id number] MEEK,GR ICEL PATIENT [employer] OPTIONS MEDICARE SUPPLEMEN MARCIA AARP MEDIC ARE SUPPL Aug 19, 2019 PLAN MY [id number] MEEK,GR ICEL PATIENT AARP INS MEDICARE SUPPLEMEN MARCIA PLANM Y Aug 19, 2019 PLANMY [id number] MEEK,GR ICEL PATIENT AARP MED SUPP MEDICARE SUPPLEMEN MARCIA Jul 19, 2010 [employer] [employer] [id number] MEEK,GR ICEL PATIENT MEDICARE (WNR) MEDICARE () PART B Aug 19, 2008 PART B [id number] [phone] MEEK,GR ICEL PATIENT MEDICARE (WNR) MEDICARE () PART B Aug 19, 2008 PART B [id number] MEEK,GR ICEL PATIENT MEDICARE (WNR) MEDICARE () PART B Aug 19, 2008 PART B [id number] MEEK,GR ICEL PATIENT MEDICARE (WNR) MEDICARE () PART B Aug 19, 2008 PART B [id number] MEEK,GR ICEL PATIENT MEDICARE (WNR) MEDICARE () PART B Aug 19, 2008 PART B [id number] MEEK,GR ICEL PATIENT MEDICARE (WNR) MEDICARE () PART B Aug 19, 2008 PART B [id number] MEEK,GR ICEL PATIENT MEDICARE (WNR) MEDICARE () PART B Aug 19, 2008 PART B [id number] MEEK,GR ICEL PATIENT MEDICARE (WNR) MEDICARE () PART A December 18, 2003 PART A [id number] [phone] MEEK,GR ICEL PATIENT MEDICARE (WNR) MEDICARE () PART A December 18, 2003 PART A [id number] MEEK,GR ICEL PATIENT MEDICARE (WNR) MEDICARE () PART A December 18, 2003 PART A [id number] MEEK,GR ICEL PATIENT MEDICARE (WNR) MEDICARE () PART A December 18, 2003 PART A [id number] MEEK,GR ICEL PATIENT MEDICARE (WNR) MEDICARE () PART A December 18, 2003 PART A [id number] [phone] MEEK,GR ICEL PATIENT MEDICARE (WNR) MEDICARE (M) PART A December 18, 2003 PART A [id number] [phone] SABINE MEEK ICEJacky PATIENT MEDICARE (WNR) MEDICARE (M) PART A December 18, 2003 PART A [id number] [phone] SABINE MEEK PATIENT Selected Encounter This section includes the information on record at ID for the Encounter. 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 Date/Time Primary/Secondary Diagnosis Diagnosis Name Provider Source Jun 08, 2024 09:30 AM PRIMARY Insomnia due to other mental disorder [facility]IRASEMA [facility] Jun 08, 2024 09:30 AM SECONDARY Anxiety disorder, unspecified TRINAIRASEMA VICK [facility] [place] [facility] Jun 08, 2024 09:30 AM SECONDARY Mental disorder, not otherwise specified IRASEMA DAMON ID [facility] [place] [facility] Jun 08, 2024 09:30 AM SECONDARY Other recurrent depressive disorders MARISOLIRASEMA ID [facility] [place] [facility] Jun 08, 2024 09:30 AM SECONDARY Post-traumatic stress disorder, chronic [facility] Plan of Treatment: Future Appointments (+ 6 months) and Future Tests (+/- 45 days) The Plan of Treatment section includes future care activities for the patient from all ID treatmentfacilities. This section includes future appointments and future orders which are active, pending or scheduled. Future Appointments This section includes appointments that were scheduled to occur 6 months from the date of the Encounter, up to a maximum of 20 appointments. The data comes from all ID treatment facilities. Appointment Date/Time Appointment Type Appointme nt Facility Name Jun 15, 2024 01:00 PM AMBULATORY - PSYCHIATRY [facility] Jun 19, 2024 09:00 AM AMBULAT[facility] - [facility]AT[facility] Jun 27, 2024 09:30 AM [facility] MEDICINE [facility] [place] [place] [facility] Jul 06, 2024 01:00 PM AMBULATORY - PSYCHIATRY [facility] [place] [facility] Jul 13, 2024 11:30 AM AMBULATORY - MEDICINE [facility] [place] [facility] Jul 13, 2024 01:00 PM AMBULATORY - PSYCHIATRY [facility] [place] [facility] Jul 20, 2024 09:30 AM AMBULATORY - PSYCHIATRY [facility] [place] [facility] Jul 21, 2024 09:30 AM AMBULATORY - MEDICINE [facility] [place] [facility] Jul 22, 2024 09:00 AM AMBULATORY - PSYCHIATRY [facility] [place] [facility] Jul 27, 2024 01:00 PM AMBULATORY - PSYCHIATRY [facility] [place] [facility] Aug 07, 2024 08:00 AM AMBULATORY - MEDICINE [facility] [place] [facility] Aug 07, 2024 09:45 AM AMBULATORY - NONE [facility] [place] [facility] Sep 23, 2024 09:00 AM AMBULATORY - PSYCHIATRY [facility] [facility] Oct 02, 2024 02:30 PM AMBULATORY - MEDICINE [facility] [place] [facility] Oct 06, 2024 11:30 AM AMBULATORY - MEDICINE [facility] [place] [facility] Nov 25, 2024 08:30 AM AMBULATORY - MEDICINE [facility] [place] [facility] Active, Pending, and Scheduled Orders This section includes a listing of several types of active, pending, and scheduled orders, including clinic medications orders, diagnostic test orders, procedure orders and consult orders; where the start date of the order is 45 days before the date of the Encounter or 45 days after the date of theEncounter. The data comes from all ID treatment facilities. Test Date/Time Test Type Test Details Facility Name May 28, 2024 09:28 AM Consult Order COMMUNITY CARE-DENTAL SPECIALTY Cons Loading And Unloading Supervisor's Choice [facility] [place] [facility] Jun 26, 2024 01:51 PM Consult Order COMMUNITY CARE-ACUPUNCTURE Cons Loading And Unloading Supervisor's Choice [facility] [place] [facility] Jul 20, 2024 01:21 PM Consult Order COMMUNITY CARE-PULMONARY Cons Loading And Unloading Supervisor's Choice ID [facility] [place] [facility] Social History: Smoking Status (Most current) and Tobacco Use (All prior to encounter date) This section includes the most current, and the historical, smoking and tobacco- related health factors from the ID facility where the Encounter took place. Current Smoking Status This section includes the most current smoking, or tobacco-related health factor, from the ID facility where the Encounter took place. Date/Time Current Smoking Status Comment Facil it Apr 06, 2024 12:30 PM VA-TOBACCO FORMER USER ID [facility] [place] [facility] Tobacco Use History This section includes a history of the smoking, or tobacco-related health factors, that were collected on or before the date of the Encounter. The data comes from the ID facility where the Encounter took place. Date/Time Smoking Status/Tobac co Use Comment Facility Apr 06, 2024 12:30 PM VA-TOBACCO QUIT 15 YRS OR MORE ID [facility] [place] [facility] Feb 08, 2023 10:00 AM VA-TOBACCO FORMER USER ID [facility] [place] [facility] Feb 08, 2023 10:00 AM VA-TOBACCO QUIT 15 YRS OR MORE ID [facility] [place] [facility] Mar 06, 2022 02:30 PM VA-TOBACCO FORMER USER [facility] [facility] Mar 06, 2022 02:30 PM VA-TOBACCO QUIT 15 YRS OR MORE ID [facility] [place] [facility] Apr 04, 2021 10:28 AM VA-TOBACCO NEVER USED ID [facility]TR[facility] [place] [facility] May 03, 2020 02:00 PM VA-TOBACCO NEVER USED [facility] [place] [facility] Feb 25, 2019 08:14 AM VA-TOBACCO FORMER USER [facility] [place] [facility] Feb 25, 2019 08:14 AM VA-TOBACCO QUIT 5 TO < 15 YRS [facility] [place] [facility] Apr 04, 2018 10:41 AM QUIT TOBACCO USE 1-7 YEARS AGO [facility] [place] [place] [facility] Oct 28, 2017 10:18 AM QUIT TOBACCO USE 1-7 YEARS AGO [facility] [place] [facility] Jan 22, 2017 01:08 PM QUIT TOBACCO USE 1-7 YEARS AGO [facility]TR [place] [facility] Jul 18, 2016 01:34 PM QUIT TOBACCO USE 1-7 YEARS AGO [facility] [place] [facility] January 10, 2016 10:32 AM QUIT TOBACCO USE 1-7 YEARS AGO [facility] [place] [facility] Oct 13, 2015 11:05 AM QUIT TOBACCO USE 1-[facility] [place] [facility] Oct 19, 2014 01:53 PM QUIT TOBACCO USE > 7 YEARS AGO ID [facility]TR [place] [facility] January 02, 2014 01:30 AM QUIT TOBACCO USE IN PAST YEAR [facility] [place] [place] [facility] Jun 18, 2013 09:00 AM CURRENT SMOKER 6 cigarettes qd ID CNTR [place] [facility] Jun 18, 2013 09:00 AM V1-PT DECLINES TOBACCO CESSATION MEDS [facility] Jun 18, 2013 09:00 AM V1-PT NOT INTERESTED IN QUIT TOBACCO USE [facility] [place] [facility] December 24, 2012 10:51 AM V1-PT DECLINES REF TO TOBACCO CESS PRGM [facility] December 24, 2012 10:51 AM V1-PT DECLINES TOBACCO CESSATION MEDS [facility] [place] [facility] December 24, 2012 10:51 AM V1-PT THINKING ABOUT QUIT TOBACCO USE [facility] [place] [facility] Jul 15, 2012 10:19 AM QUIT TOBACCO USE IN PAST YEAR [facility] [place] [place] [facility] Jan 25, 2012 05:02 PM QUIT TOBACCO USE IN PAST YEAR [facility] [place] [facility] Sep 28, 2011 10:09 AM CURRENT SMOKER 5 cigarettes a day [facility] [place] [facility] Jun 15, 2011 02:23 PM V1-PT DECLINES REF TO TOBACCO CESS PRGM [facility] [place] [facility] Jun 15, 2011 02:23 PM V1-PT READY TO QUIT TOBACCO USE [facility] [place] [facility] Apr 13, 2011 10:31 AM V1-PT DECLINES REF TO TOBACCO CESS PRGM [facility] [place] [facility] Apr 13, 2011 10:31 AM V1-PT RECEIVES TOBACCO CESS MEDS [facility] Apr 13, 2011 10:31 AM V1-PT THINKING ABOUT QUIT TOBACCO USE [facility] Oct 16, 2010 08:52 AM QUIT TOBACCO USE IN PAST YEAR [facility] May 12, 2010 02:08 PM V1-PT DECLINES REF TO TOBACCO CESS PRGM [facility] May 12, 2010 02:08 PM V1-PT READY TO QUIT TOBACCO USE [facility] May 12, 2010 12:45 PM CURRENT SMOKER 3 cigarettes a day [facility] Encounter Notes: All associated encounter notes This section contains the clinical notes associated to the Encounter. Date/Time Encounter Note(s) Provider Source Jun 08, 2024 09:39 AM [facility]: LOCAL TITLE: PRIMARY MENTAL HEALTH OUTPATIENT FOLLOW UP NOTE STANDARD TITLE: MENTAL HEALTH OUTPATIENT NOTE DATE OF NOTE: JUN 08, 2024@09:39:20 ENTRY DATE: JUN 08, 2024@09:41:02 AUTHOR: IRASEMA DAMON EXP COSIGNER: URGENCY: STATUS: COMPLETED PSYCHOPHARMACOLOGY The patient reports being prescribed a psychotropic medication. Side Effects and Adherence: In the last week, the patient reports the following when asked have you taken the medication(s) as prescribed: taking the medication as prescribed. The patient does not report symptoms suggestive of adverse effects of medication. Dry Roaster called [place] for a follow-up PHQ-9, AWA-7, and assessment as is prescribed lorazepam and sertraline for diagnoses of chronic depression, chronic anxiety, insomnia related to another mental health condition and PTSD. was called as a part of [facility] care management. 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 [place]'s identity verified through name and . deferred measurement based care as they did not wish to do it today. 's preference honored. [facility] [place] Protocol: [ X] Depression [ ] Anxiety [ ] At-Risk Alcohol Use [ ] Referral Management [ ] Other: PROBLEM: Current medical diagnoses, concerns: denied new acute medical concerns not already being addressed. Medication Concerns: [place] denied side effects to Mental and Sleep Status Changes since last contact: SLEEP: [place] reported her sleep has been about the same as before, reported she is recovering from surgery NIGHTMARES: not discussed APPETITE: reported she has an appetite but due to liquid restriction resulting from surgery that she has lost a lot of weight. reported she is trying to get more protein into her diet. HYGIENE: denied concerns ENERGY/MOTIVATION: reported her energy waxes and wanes as she recovers from surgery, denied concerns with motivation MOOD: up and down but managing an exacerbation of symptoms related to recovering from surgery PTSD: reported to be present and managing symptoms well currently ANXIETY: appreciative of information sent about warning signs of stress and anxiety. reported to be present and manageable PANIC ATTACKS: denied concerns DEPRESSION: reported to be present and manageable at this time ANGER/IRRITABILITY/AGGRE SSION: denied concerns WILBERT/HYPOMANIA: none observed or reported PSYCHOTIC FEATURES: none observed or reported PAIN: reported to still have some acute pain related to surgery that is improving and already being addressed SUICIDE: denied current active suicidal ideation/intent/plan Effect of psychiatric symptoms on functioning: reported to be functioning ok despite everything, reported that her main focus right now is recovering from surgery Behavioral Activation/Pleasant Events Scheduling/ social interactions/exercise: doing as tolerated Other Treatment(Psychotherapy/ counselling, etc.): will be engaging in brief therapy Suicidal Ideation: denied current active suicidal ideation/intent/plan. Progress towards goals/ review of action plan: practicing mindfulness New developed action plan (if applicable) no changes indicated Education Provided: [place] was offered an appointment within program protocols and [place] has the right to choose a different appointment interval. 's preference honored in an effort to be centric and to engage in shared decision making. Dry Roaster reinforced education previously provided about medication and reinforced psychoeducation previously provided. [place] knows how to access emergency services should the need arise and is aware of the crisis numbers [phone] and [phone] and to press 1 for Veterans PLAN: 1.Follow through with [facility] program as indicated: 07/22 at 0900 via telephone 2.Patient's stated action plan/stated goal: [place] will continue to take medication as prescribed and engage in mindfulness group Summary of next steps/plan was provided to the . Outcome and recommendations will be discussed with the PCP and other relevant PACT team members, as needed. Consults were reviewed and no needs were identified Time Spent: 12 minutes on telephone, 10 minutes on chart review and 10 minutes on post visit documentation /jeana/ Irasema PORTER RN [facility] STADIUM ATTENDANT Signed: 06/08/2024 12:32 IRASEMA DAMON [facility]
--- OUTSIDE RECORDS SUMMARY | 2024-08-04 17:28 | XMS_ITS | Encounter Summary ---
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 Name Role Phone CADEN FELIZ Primary Care [...] PLAN I Aug 19, 2019 PLAN I [id number] [phone] MEEK,SABINE ICEL PATIENT [employer] OPTIONS MEDICARE SUPPLEMEN MARCIA PLANM Y Aug 19, 2019 PLANMY [id number] MEEK,GR ICEL PATIENT [employer] MEDICARE SUPPLEMEN MARCIA AARP MEDIC ARE SUPPL Aug 19, 2019 PLAN MY [id number] MEEK,GR ICEL PATIENT A[employer] INS MEDICARE SUPPLEMEN MARCIA PLANM Y Aug 19, 2019 PLANMY [id number] MEEK,GR ICEL PATIENT AARP MED SUPP MEDICARE SUPPLEMEN MARCIA Jul 19, 2010 PLANMY [id number] [phone] MEEK,GR ICEL PATIENT MEDICARE (WNR) MEDICARE () PART B Aug 19, 2008 PART B [id number] MEEK,GR ICEL PATIENT MEDICARE (WNR) MEDICARE () PART B Aug 19, 2008 PART B [id number] [phone] MEEK,GR ICEL PATIENT MEDICARE (WNR) MEDICARE () PART B Aug 19, 2008 PART B [id number] MEEK,GR ICEL PATIENT MEDICARE (WNR) MEDICARE () PART B Aug 19, 2008 PART B [id number] MEEK,GR ICEL PATIENT MEDICARE (WNR) MEDICARE () PART B Aug 19, 2008 PART B [id number] MEEK,GR ICEL PATIENT MEDICARE (WNR) MEDICARE () PART B Aug 19, 2008 PART B [id number] MEEK,GR ICEL PATIENT MEDICARE (WNR) MEDICARE () PART B Aug 19, 2008 PART B [id number] MEEK,GR ICEL PATIENT MEDICARE (WNR) MEDICARE () PART A December 18, 2003 PART A [id number] MEEK,GR ICEL PATIENT MEDICARE (WNR) MEDICARE () PART A December 18, 2003 PART A [id number] MEEK,GR ICEL PATIENT MEDICARE (WNR) MEDICARE () PART A December 18, 2003 PART A [id number] MEEK,GR ICEL PATIENT MEDICARE (WNR) MEDICARE () PART A December 18, 2003 PART A [id number] [phone] MEEK,GR ICEL PATIENT MEDICARE (WNR) MEDICARE () PART A December 18, 2003 PART A [id number] [phone] MEEK,GR ICEL PATIENT MEDICARE (WNR) MEDICARE () PART A December 18, 2003 PART A [id number] SABINE MEEK PATIENT MEDICARE (WNR) MEDICARE (M) PART A December 18, 2003 PART A [id number] SABINE MEEK PATIENT Selected Encounter This section includes the information on record at [place] for the Encounter. Date/Time Encounter Type Encounter Description Reason Pro vider Source May 20, 2024 12:00 AM Outpatient Encounter COMMUNITY CARE CONSULT IHE Encounter Template Text not used by [place] Plan of Treatment: Future Appointments (+ 6 months) and Future Tests (+/- 45 days) The Plan of Treatment section includes future care activities for the patient from all [place] treatmentfacilities. This section includes future appointments and future orders which are active, pending or scheduled. Future Appointments This section includes appointments that were scheduled to occur 6 months from the date of the Encounter, up to a maximum of 20 appointments. The data comes from all [place] treatment facilities. Appointment Date/Time Appointment Type Appointme nt Facility Name May 25, 2024 01:00 PM AMBULATORY - [facility]IATRY [facility] [place] [facility] Jun 08, 2024 09:30 AM AMBULATORY [facility]IATRY [facility] [place] [facility] Jun 08, 2024 01:00 PM AMBULATORY - PS[facility]CHIATRY [facility] [place] [facility] Jun 15, 2024 01:00 PM AMBULATORY - PS[facility]CHIATRY [facility] [place] [facility] Jun 19, 2024 09:00 AM AMBULATORY - PS[facility]CHIATRY [facility] [place] [facility] Jun 27, 2024 09:30 AM AMBULATORY - MEDICINE [place] [facility] [place] [facility] Jul 06, 2024 01:00 PM AMBULATORY - PSYCHIATRY [facility] [place] [facility] Jul 13, 2024 11:30 AM AMBULATORY - MEDICINE [place] [facility] [place] [facility] Jul 13, 2024 01:00 PM AMBULATORY - PSYCHIATRY [facility] [place] [facility] Jul 20, 2024 09:30 AM AMBULATORY - PS[facility]CHIATRY [facility] [place] [facility] Jul 21, 2024 09:30 AM AMBULATORY - MEDICINE [place] [facility] [place] [facility] Jul 22, 2024 09:00 AM AMBULATORY - PSYCHIATRY [facility] [place] [facility] Jul 27, 2024 01:00 PM AMBULATORY - PSYCHIATRY [place] [facility] [place] [facility] Aug 07, 2024 08:00 AM AMBULATORY - MEDICINE [place] [facility] [place] [facility] Aug 07, 2024 09:45 AM AMBULATORY - NONE [place] [facility] [place] [facility] Sep 23, 2024 09:00 AM AMBULATORY - PSYCHIATRY [place] [facility] [place] [facility] Oct 02, 2024 02:30 PM [facility] Oct 06, 2024 11:30 AM AMBULATORY - MEDICINE [facility] Active, Pending, and Scheduled Orders This section includes a listing of several types of active, pending, and scheduled orders, including clinic medications orders, diagnostic test orders, procedure orders and consult orders; where the start date of the order is 45 days before the date of the Encounter or 45 days after the date of theEncounter. The data comes from all [place] treatment facilities. Test Date/Time Test Type Test Details Facility Name Apr 21, 2024 10:05 AM Consult Order COMMUNITY CARE-MAMMOGRAPHY FEMALE SCREEN Cons Corporate Consultant's Choice [facility] May 28, 2024 09:28 AM Consult Order COMMUNITY CARE-DENTAL SPECIALTY Cons [facility] Jun 26, 2024 01:51 PM Consult Order COMMUNITY CARE-ACUPUNCTURE Cons Corporate Consultant's Choice [facility] Social History: Smoking Status (Most current) and Tobacco Use (All prior to encounter date) This section includes the most current, and the historical, smoking and tobacco- related health factors from the [place] facility where the Encounter took place. Current Smoking Status This section includes the most current smoking, or tobacco-related health factor, from the [place] facility where the Encounter took place. Date/Time Current Smoking Status Comment Rosamaria zepeda Apr 06, 2024 12:30 PM VA-TOBACCO FOR[facility] USER [facility] Tobacco Use History This section includes a history of the smoking, or tobacco-related health factors, that were collected on or before the date of the Encounter. The data comes from the [place] facility where the Encounter took place. Date/Time Smoking Status/Tobac co Use Comment Facility Apr 06, 2024 12:30 PM VA-TOBACCO QUIT 15 YRS OR MORE [facility] [place] [facility] Feb 08, 2023 10:00 AM VA-TOBACCO FORMER USER [facility] [place] [facility] Feb 08, 2023 10:00 AM VA-TOBACCO QUIT 15 YRS OR MORE [facility] [place] [facility] Mar 06, 2022 02:30 PM VA-TOBACCO FORMER USER [facility] [place] [facility] Mar 06, 2022 02:30 PM VA-TOBACCO QUIT 15 YRS OR MORE [facility] [place] [facility] Apr 04, 2021 10:28 AM VA-TOBACCO NEVER USED [place] [facility] [place] [facility] May 03, 2020 02:00 PM VA-TOBACCO NEVER USED [facility] [place] [facility] Feb 25, 2019 08:14 AM VA-TOBACCO FORMER USER [place] [facility] [place] [facility] Feb 25, 2019 08:14 AM VA-TOBACCO QUIT 5 TO < 15 YRS [facility] [place] [facility] Apr 04, 2018 10:41 AM QUIT TOBACCO USE 1-7 YEARS AGO [facility] [place] [facility] Oct 28, 2017 10:18 AM QUIT TOBACCO USE 1-7 YEARS AGO [facility] [place] [facility] Jan 22, 2017 01:08 PM QUIT TOBACCO USE 1-7 YEARS AGO [facility] [place] [facility] Jul 18, 2016 01:34 PM QUIT TOBACCO USE 1-7 YEARS AGO [facility] [place] [facility] January 10, 2016 10:32 AM QUIT TOBACCO USE 1-7 YEARS AGO [facility] [place] [facility] Oct 13, 2015 11:05 AM QUIT TOBACCO USE 1-7 YEARS AGO [facility] [place] [facility] Oct 19, 2014 01:53 PM QUIT TOBACCO USE > 7 YEARS AGO [facility] [place] [facility] January 02, 2014 01:30 AM QUIT TOBACCO USE IN PAST YEAR [facility] [place] [facility] Jun 18, 2013 09:00 AM CURRENT SMOKER 6 cigarettes qd [facility] [place] [facility] Jun 18, 2013 09:00 AM V1-PT DECLINES TOBACCO CESSATION MEDS [facility] Jun 18, 2013 09:00 AM V1-PT NOT INTERESTED IN QUIT TOBACCO USE [facility] [place] [facility] December 24, 2012 10:51 AM V1-PT DECLINES REF TO TOBACCO CESS PRGM [facility] [place] [facility] December 24, 2012 10:51 AM V1-PT DECLINES TOBACCO CESSATION MEDS [facility] [place] [facility] December 24, 2012 10:51 AM V1-PT THINKING ABOUT QUIT [facility]ACCO [facility] [place] [facility] Jul 15, 2012 10:19 AM QUIT TOBACCO USE IN PAST [facility]AR [facility] Jan 25, 2012 05:02 PM QUIT TOBACCO USE IN PAST YEAR [facility] Sep 28, 2011 10:09 AM CURRENT SMOKER 5 cigarettes a day [facility] Jun 15, 2011 02:23 PM V1-PT DECLINES REF TO TOBACCO CESS PRGM [facility] Jun 15, 2011 02:23 PM V1-PT READY TO QUIT TOBACCO USE [facility] Apr 13, 2011 10:31 AM V1-PT DECLINES REF TO TOBACCO CESS PRGM [facility] Apr 13, 2011 10:31 AM V1-PT RECEIVES TOBACCO CESS MEDS OUTSIDE [facility] Apr 13, 2011 10:31 AM V1-PT THINKING ABOUT QUIT TOBACCO USE [facility] [place] [facility] Oct 16, 2010 08:52 AM QUIT TOBACCO USE IN PAST YEAR [facility] [place] [facility] May 12, 2010 02:08 PM V1-PT DECLINES REF TO TOBACCO CESS PRGM [facility] May 12, 2010 02:08 PM V1-PT READY TO QUIT TOBACCO USE [facility] May 12, 2010 12:45 PM CURRENT SMOKER 3 cigarettes a day [facility] Encounter Notes: All associated encounter notes This section contains the clinical notes associated to the Encounter. Date/Time Encounter Note(s) Provider Source May 20, 2024 12:00 AM NONVA CONSULT: LOCAL TITLE: COMMUNITY CARE-CONSULT RESULT NOTE STANDARD TITLE: NONVA CONSULT DATE OF NOTE: MAY 20, 2024 ENTRY DATE: JUN 10, 2024@07:08:10 AUTHOR: APARNA BEASLEY COSIGNER: URGENCY: STATUS: COMPLETED VistA Imaging - Scanned Document SCANNED DOCUMENT SIGNATURE NOT REQUIRED Electronically Filed: 06/10/2024 by: APARNA CAZARES [place] [facility]
--- OUTSIDE RECORDS SUMMARY | 2024-08-04 17:28 | XMS_ITS | Encounter Summary ---
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 Name Role Phone CADEN FELIZ Primary Care [...] PLAN I Aug 19, 2019 PLAN I [id number] MEEK,SABINE ICEL PATIENT [employer] OPTIONS MEDICARE SUPPLEMEN MARCIA PLANM Y Aug 19, 2019 PLANMY [id number] [phone] MEEK,GR ICEL PATIENT [employer] OPT[employer] MEDICARE SUPPLEMEN MARCIA AARP MEDIC ARE SUPPL Aug 19, 2019 PLAN MY [id number] EMEK,SABINE ICEL PATIENT AARP INS MEDICARE SUPPLEMEN MARCIA PLANM Y Aug 19, 2019 PLANMY [id number] MEEK,GR ICEL PATIENT AARP MED SUPP MEDICARE SUPPLEMEN MARCIA Jul 19, 2010 PLANMY [id number] MEEK,GR ICEL PATIENT MEDICARE (WNR) MEDICARE () PART B Aug 19, 2008 PART B [id number] [phone] MEEK,GR ICEL PATIENT MEDICARE (WNR) MEDICARE () PART B Aug 19, 2008 PART B [id number] [phone] MEEK,GR ICEL PATIENT MEDICARE (WNR) MEDICARE () PART B Aug 19, 2008 PART B [id number] MEEK,GR ICEL PATIENT MEDICARE (WNR) MEDICARE () PART B Aug 19, 2008 PART B [id number] [phone] MEEK,GR ICEL PATIENT MEDICARE (WNR) MEDICARE () PART B Aug 19, 2008 PART B [id number] MEEK,GR ICEL PATIENT MEDICARE (WNR) MEDICARE () PART B Aug 19, 2008 PART B [id number] MEEK,GR ICEL PATIENT MEDICARE (WNR) MEDICARE () PART B Aug 19, 2008 PART B [id number] MEEK,GR ICEL PATIENT MEDICARE (WNR) MEDICARE () PART A December 18, 2003 PART A [id number] [phone] MEEK,GR ICEL PATIENT MEDICARE (WNR) MEDICARE () PART A December 18, 2003 PART A [id number] MEEK,GR ICEL PATIENT MEDICARE (WNR) MEDICARE () PART A December 18, 2003 PART A [id number] MEEK,GR ICEL PATIENT MEDICARE (WNR) MEDICARE () PART A December 18, 2003 PART A [id number] MEEK,GR ICEL PATIENT MEDICARE (WNR) MEDICARE () PART A December 18, 2003 PART A [id number] [phone] MEEK,GR ICEL PATIENT MEDICARE (WNR) MEDICARE () PART A December 18, 2003 PART A [id number] SABINE MEEK PATIENT MEDICARE (WNR) MEDICARE (M) PART A December 18, 2003 PART A [id number] SABINE MEEK PATIENT Selected Encounter This section includes the information on record at [place] for the Encounter. Date/Time Encounter Type Encounter Description Reason Pro vider Source Mar 06, 2024 12:00 AM Outpatient Encounter EVENT (HISTORICAL) IHE Encounter Template Text not used by [place] Plan of Treatment: Future Appointments (+ 6 months) and Future Tests (+/- 45 days) The Plan of Treatment section includes future care activities for the patient from all [place] treatmentfacilities. This section includes future appointments and [...] 09, 2024 01:00 PM AMBULATORY - PSYCHIATRY [place] [facility] [place] [facility] Mar 11, 2024 03:15 PM AMBULATORY - MEDICINE [place] [facility] [place] [facility] Mar 18, 2024 08:30 AM AMBULATORY - MEDICINE [place] [facility] [place] [facility] Mar 23, 2024 01:00 PM AMBULATORY - PSYCHIATRY [facility] [place] [facility] Mar 30, 2024 01:00 PM AMBULATORY - PSYCHIATRY [place] [facility] [place] [facility] Apr 06, 2024 12:30 PM AMBULATORY - MEDICINE [place] [facility] [place] [facility] Apr 06, 2024 01:00 PM AMBULATORY - MEDICINE [place] [facility] [place] [facility] Apr 23, 2024 08:40 AM AMBULATORY - PSYCHIATRY [facility] [place] [facility] May 08, 2024 08:00 AM AMBULATORY - MEDICINE [place] [facility] [place] [facility] May 11, 2024 01:00 PM AMBULATORY - PSYCHIATRY [facility] [place] [facility] May 18, 2024 01:00 PM AMBULATORY - PSYCHIATRY [place] [facility] [place] [facility] May 20, 2024 09:30 AM AMBULATORY - MEDICINE [place] [facility] [place] [facility] May 25, 2024 01:00 PM AMBULATORY - PSYCHIATRY [place] [facility] [place] [facility] Jun 08, 2024 09:30 AM AMBULATORY - PSYCHIATRY [place] [facility] [place] [facility] Jun 08, 2024 01:00 PM AMBULATORY - PSYCHIATRY [place] [facility] [place] [facility] Jun 15, 2024 01:00 PM AMBULATORY - PSYCHIATRY [place] [facility] [place] [facility] Jun 19, 2024 09:00 AM AMBULATORY - PSYCHIATRY [place] [facility] [place] [facility] Jun 27, 2024 09:30 AM AMBULATORY - MEDICINE [place] [facility] [facility] Jul 06, 2024 01:00 PM [facility] Jul 13, 2024 11:30 AM [facility] Active, Pending, and Scheduled Orders This section includes a listing of several types of active, pending, and scheduled orders, including clinic medications orders, diagnostic test orders, procedure orders and consult orders; where the start date of the order is 45 days before the date of the Encounter or 45 days after the date of theEncounter. The data comes from all [place] treatment facilities. Test Date/Time Test Type Test Details Facility Name Feb 28, 2024 12:49 PM Consult Order COMMUNITY CARE-CARDIOLOGY Cons Wax Room Supervisor's Choice [facility] Lab Results: +/- 30 days of the encounter This section includes the Chemistry and Hematology Lab Results on record with [place] for the patient. Radiology Reports and Pathology Reports are provided separately, in subsequent sections. Lab Results This section contains the Chemistry/Hematology Results that were resulted 30 days before or 30 daysafter the date of the Encounter. Date/Time Source Result Type Result - Unit Interpretation Reference Range Comment Feb 28, 2024 01:01 PM [facility] THYROID T4 FREE(FT4) (WROX) Specimen Type: SERUM No comment entered. Ordering Provider: CADEN FELIZ Report Released Date/Time: Feb 28, 2024 12:47 PM Reporting Lab: [address] [address] Performing Lab: [facility] [address] [facility] [address] THYROID T4 FREE(FT4) (WROX) 0.93 ng/dL 0.6-1.6 Feb 28, 2024 01:01 PM [facility] TSH Specimen Type: SERUM No comment entered. Ordering Provider: CADEN FELIZ Report Released Date/Time: Feb 28, 2024 12:47 PM Reporting Lab: [address] [address] Performing Lab: [address] [address] TSH 0.54 u[IU]/mL 0.35-5.00 Feb 28, 2024 01:01 PM [facility] LIVER FUNCTION Specimen Type: SERUM No comment entered. Ordering Provider: CADEN FELIZ Report Released Date/Time: Feb 28, 2024 12:47 PM Reporting Lab: [address] [address] Performing Lab: [address] [address] PROTEIN,TOTAL 7.0 g/dL 6.0-8.3 ALBUMIN 4.2 g/dL 3.5-5.0 ALKALINE PHOSPHATASE 62 U/L 40-150 AST 15 U/L 5-34 ALT 20 U/L BILIRUBIN, TOTAL 0.4 mg/dL 0.2-1.2 Feb 28, 2024 01:01 PM [facility] HEMOGLOBIN A1C PANEL Specimen Type: BLOOD [...] Feb 28, 2024 12:47 PM Reporting Lab: [address] [address] Performing Lab: [facility] [address] [facility] [address] HEMOGLOBIN A1C 6.2 H 4.0-5.6 Feb 28, 2024 01:01 PM [facility] BASIC METABOLIC PANEL (non-fasting) Specimen Type: SERUM No comment entered. Ordering Provider: CADEN FELIZ Report Released Date/Time: Feb 28, 2024 12:47 PM Reporting Lab: [facility] [address] [facility] [address] Performing Lab: [address] [address] UREA NITROGEN 10 mg/dL 7-25 GLUCOSE 148 mg/dL H 65-100 SODIUM 140 mmol/L 135-145 POTASSIUM 4.7 mmol/L 3.5-5.0 CHLORIDE 101 mmol/L 100-110 CO2 30 meq/L 20-30 CREATININE, Serum 0.70 mg/dL 0.50-1.40 eGFR(CKD-EPI 2020) >90 mL/min >60 Feb 28, 2024 01:01 PM [facility] CBC AND DIFF (AUTO) Specimen Type: BLOOD No comment entered. Ordering Provider: CADEN FELIZ Report Released Date/Time: Feb 28, 2024 12:47 PM Reporting Lab: [address] [address] Performing Lab: [address] [address] WBC 3.39 10*3/uL L 4.50-11.00 RBC 3.84 [...] place. Date/Time Current Smoking Status Comment [facility] Feb 08, 2023 10:00 AM VA-TOBACCO QUIT 15 YRS OR MORE [place] [facility] [facility] Tobacco Use History This section includes a history of the smoking, or tobacco-related health factors, that were collected on or before the date of the Encounter. The data comes from the [place] facility where the Encounter took place. Date/Time Smoking Status/Tobac co Use Comment Facility Feb 08, 2023 10:00 AM VA-TOBACCO QUIT 15 YRS OR MORE [place] [facility] [place] [facility] Mar 06, 2022 02:30 PM VA-TOBACCO FORMER USER [place] [facility] [place] [facility] Mar 06, 2022 02:30 PM VA-TOBACCO QUIT 15 YRS OR MORE [facility] [place] [facility] Apr 04, 2021 10:28 AM VA-TOBACCO NEVER USED [place] [facility] [place] [facility] May 03, 2020 02:00 PM VA-TOBACCO NEVER USED [place] [facility] [place] [facility] Feb 25, 2019 08:14 AM VA-TOBACCO FORMER USER [place] [facility] [place] [facility] Feb 25, 2019 08:14 AM VA-TOBACCO QUIT 5 TO < 15 YRS [place] [facility] [place] [facility] Apr 04, 2018 10:41 AM QUIT TOBACCO USE 1-7 YEARS AGO [place] [facility] [place] [facility] Oct 28, 2017 10:18 AM QUIT TOBACCO USE 1-7 YEARS AGO [place] [facility] [place] [facility] Jan 22, 2017 01:08 PM QUIT TOBACCO USE 1-7 YEARS AGO [place] [facility] [place] [facility] Jul 18, 2016 01:34 PM QUIT TOBACCO USE 1-7 YEARS AGO [place] [facility] [place] [facility] January 10, 2016 10:32 AM QUIT TOBACCO USE 1-7 YEARS AGO [place] [facility] [place] [facility] Oct 13, 2015 11:05 AM QUIT TOBACCO USE 1-7 YEARS AGO [place] [facility] [facility] Oct 19, 2014 01:53 PM QUIT TOBACCO USE > 7 YEARS AGO [place] [facility] [facility] January 02, 2014 01:30 AM QUIT TOBACCO USE IN PAST YEAR [place] [facility] [facility] Jun 18, 2013 09:00 AM CURRENT SMOKER 6 cigarettes qd [facility] [place] [facility] Jun 18, 2013 09:00 AM V1-PT DECLINES TOBACCO CESSATION MEDS [facility] [place] [facility] Jun 18, 2013 09:00 AM V1-PT NOT INTERESTED IN QUIT TOBACCO USE [facility] [place] [facility] December 24, 2012 10:51 AM V1-PT DECLINES REF TO TOBACCO CESS PRGM [place] [facility] [place] [facility] December 24, 2012 10:51 AM V1-PT DECLINES TOBACCO CESSATION MEDS [place] [facility] [facility] December 24, 2012 10:51 AM V1-PT THINKING ABOUT QUIT TOBACCO USE [place] [facility] [place] [facility] Jul 15, 2012 10:19 AM QUIT TOBACCO USE IN PAST YEAR [place] [facility] [place] [facility] Jan 25, 2012 05:02 PM QUIT TOBACCO USE IN PAST YEAR [facility] [place] [facility] Sep 28, 2011 10:09 AM [...] REF TO TOBACCO CESS PRGM [facility] May 12, 2010 02:08 PM V1-PT READY TO QUIT TOBACCO USE [facility] May 12, 2010 12:45 PM CURRENT SMOKER 3 cigarettes a day [facility] Radiology Reports: +/- 30 days of [...] comes from all [facility] facilities. Date/Time Radiology Report Provider Source Feb 28, 2024 12:54 PM CHEST (2 VIEWS): PEBBLES MEEK [id number] -[id number] F Exm Date: FEB 28, 2024@12:54 Req Phys: CADEN FELIZ Loc: CWM/NO/PACT 6 WH (Req'g Loc) Img Loc: [facility]/BUILDING 1 Service: Unknown [facility] , (Case [id number] COMPLETE) CHEST (2 VIEWS) (RAD Detailed) CPT:58960 Reason for Study: 73yo with ashtma and genearlized puritis Clinical History: to check lung dumont and lympthadenopathy Report Status: Verified Date Reported: FEB 28, 2024 Date Verified: FEB 28, 2024 Director Trust E-Sig:/ES/NEMO RODRIGUEZ JR Report: Study: PA and [...] Primary Interpreting Staff: NEMO RODRIGUEZ JR, Radiologist (Director Trust) /NEMO WEISS JR [facility] Encounter Notes: All associated encounter notes This section contains the clinical notes associated to the Encounter. Date/Time Encounter Note(s) Provider Source Mar 06, 2024 12:00 AM NONVA CONSULT: LOCAL TITLE: COMMUNITY CARE-CONSULT RESULT NOTE STANDARD TITLE: NONVA CONSULT DATE OF NOTE: MAR 06, 2024 ENTRY DATE: JUN 08, 2024@19:04:15 AUTHOR: ANNA SUAREZ MA EXP COSIGNER: URGENCY: STATUS: COMPLETED VistA Imaging - Scanned Document SCANNED DOCUMENT SIGNATURE NOT REQUIRED Electronically Filed: 06/08/2024 by: ANNA SUAREZ EXERCISE PHYSIOLOGIST ANNA SUAREZ [facility]
--- OUTSIDE RECORDS SUMMARY | 2024-08-04 17:28 | XMS_ITS | Encounter Summary ---
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 Name Role Phone ACDEN FELIZ Primary Care Provider Unavailabl e Insurance [...] PLAN I Aug 19, 2019 PLAN I [id number] MEEK,GR ICEL PATIENT [employer] OPTIONS MEDICARE SUPPLEMEN MARCIA PLANM Y Aug 19, 2019 PLANMY [id number] [phone] MEEK,GR ICEL PATIENT [employer] OPTIONS MEDICARE SUPPLEMEN MARCIA AARP MEDIC ARE SUPPL Aug 19, 2019 PLAN MY [id number] MEEK,GR ICEL PATIENT AARP INS MEDICARE SUPPLEMEN MARCIA PLANM Y Aug 19, 2019 PLANMY [id number] MEEK,GR ICEL PATIENT AARP MED SUPP MEDICARE SUPPLEMEN MARCIA Jul 19, 2010 PLANMY [id number] [phone] MEEK,GR ICEL PATIENT MEDICARE (WNR) MEDICARE () PART B Aug 19, 2008 PART B [id number] [phone] MEEK,GR ICEL PATIENT MEDICARE (WNR) MEDICARE () PART B Aug 19, 2008 PART B [id number] MEEK,GR ICEL PATIENT MEDICARE (WNR) MEDICARE () PART B Aug 19, 2008 PART B [id number] MEEK,GR ICEL PATIENT MEDICARE (WNR) MEDICARE () PART B Aug 19, 2008 PART B [id number] [phone] MEEK,GR ICEL PATIENT MEDICARE (WNR) MEDICARE () PART B Aug 19, 2008 PART B [id number] MEEK,GR ICEL PATIENT MEDICARE (WNR) MEDICARE () PART B Aug 19, 2008 PART B [id number] MEEK,GR ICEL PATIENT MEDICARE (WNR) MEDICARE () PART B Aug 19, 2008 PART B [id number] [phone] MEEK,GR ICEL PATIENT MEDICARE (WNR) MEDICARE () PART A December 18, 2003 PART A [id number] MEEK,GR ICEL PATIENT MEDICARE (WNR) MEDICARE () PART A December 18, 2003 PART A [id number] MEEK,GR ICEL PATIENT MEDICARE (WNR) MEDICARE () PART A December 18, 2003 PART A [id number] [phone] MEEK,GR ICEL PATIENT MEDICARE (WNR) MEDICARE () PART A December 18, 2003 PART A [id number] [phone] MEEK,GR ICEL PATIENT MEDICARE (WNR) MEDICARE () PART A December 18, 2003 PART A [id number] MEEK,GR ICEL PATIENT MEDICARE (WNR) MEDICARE () PART A December 18, 2003 PART A [id number] SABINE MEEK PATIENT MEDICARE (WNR) MEDICARE (M) PART A December 18, 2003 PART A [id number] SABINE MEEK PATIENT Selected Encounter This section includes the information on record at [place] for the Encounter. Date/Time Encounter Type Encounter Description Reason Provider Source Jun 15, 2024 01:00 PM [facility] ICD-10-CM F43.12 Post-traumati c stress disorder, chronic MARY GIBBS E IHE Encounter Template Text not used by [place] Assessments - Encounter Diagnoses This section includes the primary and secondary diagnoses documented for the Encounter. Date/Time Primary/Secondary Diagnosis Diagnosis Name Provider Source Jun 15, 2024 02:51 PM PRIMARY Post-traumatic stress disorder, chronic MARY GIBBS [place] [facility] [place] [facility] Plan of Treatment: Future Appointments (+ 6 months) and Future Tests (+/- 45 days) The Plan of Treatment section includes future care activities for the [facility] [place] [facility]. This section includes future appointments and future orders which are active, pending or scheduled. Future Appointments This section includes appointments that were scheduled to occur 6 months from the date of the Encounter, up to a maximum of 20 appointments. The data comes from all [place] treatment facilities. Appointment Date/Time Appointment Type Appointme nt Facility Name Jun 19, 2024 09:00 AM AMBULATORY - PSYCHIATRY [place] [facility] [place] [facility] Jun 27, 2024 09:30 AM AMBULATORY - MEDICINE [facility] [place] [facility] Jul 06, 2024 01:00 PM AMBULATORY - PSYCHIATRY [place] [facility] [place] [facility] Jul 13, 2024 11:30 AM AMBULATORY - MEDICINE IN [facility] [place] [facility] Jul 13, 2024 01:00 PM AMBULATORY - PSYCHIATRY [place] [facility] [place] [facility] Jul 20, 2024 09:30 AM AMBULATORY - PSYCHIATRY [place] [facility] [place] [facility] Jul 21, 2024 09:30 AM AMBULATORY - MEDICINE IN C [facility] [place] [facility] Jul 22, 2024 09:00 AM AMBULATORY - PSYCHIATRY [place] [facility] [place] [facility] Jul 27, 2024 01:00 PM AMBULATORY - PSYCHIATRY [place] [facility] [place] [facility] Aug 07, 2024 08:00 AM AMBULATORY - MEDICINE IN C [facility] [place] [facility] Aug 07, 2024 09:45 AM AMBULATORY - NONE [facility] [place] [facility] Sep 23, 2024 09:00 AM AMBULATORY - PSYCHIATRY [place] [facility] [place] [facility] Oct 02, 2024 02:30 PM AMBULATORY - MEDICINE IN C [facility] [place] [facility] Oct 06, 2024 11:30 AM AMBULATORY - MEDICINE IN C [facility] [place] [facility] Nov 25, 2024 08:30 AM AMBULATORY [facility] MED[facility] Active, Pending, and Scheduled Orders This section includes a listing of several types of active, pending, and scheduled orders, including clinic medications orders, diagnostic test orders, procedure orders and consult orders; where the start date of the order is 45 days before the date of the Encounter or 45 days after the date of theEncounter. The data comes from all [place] treatment facilities. Test Date/Time Test Type Test Details Facility Name May 28, 2024 09:28 AM Consult Order COMMUNITY CARE-DENTAL SPECIALTY [facility] Jun 26, 2024 01:51 PM Consult Order COMMUNITY CARE-ACUPUNCTURE Cons [facility] Jul 20, 2024 01:21 PM Consult Order COMMUNITY CARE-PULMONARY Cons Drainlayer's Choice [facility] Social History: Smoking [...] 06, 2024 12:30 PM VA-TOBACCO FORMER USER [facility] Tobacco Use History This section includes a history of the smoking, or tobacco-related health factors, that were collected on or before the date of the Encounter. The data comes from the [place] facility where the Encounter took place. Date/Time Smoking Status/Tobac co Use Comment Facility Apr 06, 2024 12:30 PM VA-TOBACCO QUIT 15 YRS OR MORE [facility] [place] [facility] Feb 08, 2023 10:00 AM VA-TOBACCO FORMER USER [facility] [place] [facility] Feb 08, 2023 10:00 AM VA-TOBACCO QUIT 15 YRS OR MORE [facility] [place] [facility] Mar 06, 2022 02:30 PM VA-TOBACCO FORMER USER [facility] [place] [facility] Mar 06, 2022 02:30 PM VA-TOBACCO QUIT 15 YRS OR MORE [facility] [place] [facility] Apr 04, 2021 10:28 AM VA-TOBACCO NEVER USED [facility] [place] [facility] May 03, 2020 02:00 PM VA-TOBACCO NEVER USED [facility] [place] [facility] Feb 25, 2019 08:14 AM VA-TOBACCO FORMER USER [facility] [place] [facility] Feb 25, 2019 08:14 AM VA-TOBACCO QUIT 5 TO < 15 YRS [facility] [place] [facility] Apr 04, 2018 10:41 AM QUIT TOBACCO USE 1-7 YEARS AGO [facility] [place] [facility] Oct 28, 2017 10:18 AM QUIT TOBACCO USE 1-7 YEARS AGO [facility] [place] [facility] Jan 22, 2017 01:08 PM QUIT TOBACCO USE 1-7 YEARS AGO [facility] [place] [facility] Jul 18, 2016 01:34 PM QUIT TOBACCO USE 1-7 YEARS AGO [facility] [place] [facility] January 10, 2016 10:32 AM QUIT TOBACCO USE 1-7 YEARS AGO [facility] [place] [facility] Oct 13, 2015 11:05 AM QUIT TOBACCO USE 1-7 YEARS AGO [facility] [place] [facility] Oct 19, 2014 01:53 PM QUIT TOBACCO USE > 7 YEARS AGO [facility] [place] [facility] January 02, 2014 01:30 AM QUIT TOBACCO USE IN PAST YEAR [facility] [place] [facility] Jun 18, 2013 09:00 AM CURRENT SMOKER 6 cigarettes qd [facility] [place] [facility] Jun 18, 2013 09:00 AM V1-PT DECLINES [facility]BACCO CESSATION [facility] Jun 18, 2013 09:00 AM V1-PT NOT INTERESTED IN QUIT TOBACCO USE [facility] [place] [facility] December 24, 2012 10:51 AM V1-PT DECLINES REF TO TOBACCO CESS PRGM [facility] [place] [facility] December 24, 2012 10:51 AM V1-PT DECLINES TOBACCO CESSATION MEDS [facility] [place] [facility] December 24, 2012 10:51 AM V1-PT THINKING ABOUT QUIT TOBACCO USE [facility] Jul 15, 2012 10:19 AM QUIT TOBACCO USE IN PAST YEAR [facility] Jan 25, 2012 05:02 PM QUIT TOBACCO USE IN PAST YEAR [facility] MICN [facility] Sep 28, 2011 10:09 AM CURRENT SMOKER 5 cigarettes a day [facility] Jun 15, 2011 02:23 PM V1-PT DECLINES REF TO TOBACCO CESS PRGM [facility] Jun 15, 2011 02:23 PM V1-PT READY TO QUIT TOBACCO USE [facility]RN [facility] Apr 13, 2011 10:31 AM V1-PT DECLINES REF TO TOBACCO CESS PRGM [facility] Apr 13, 2011 10:31 AM V1-PT RECEIVES TOBACCO CESS MEDS OUTSIDE [facility] Apr 13, 2011 10:31 AM V1-PT THINKING ABOUT QUIT TOBACCO USE [facility] Oct 16, 2010 08:52 AM QUIT TOBACCO USE IN PAST YEAR [facility] May 12, 2010 02:08 PM V1-PT DECLINES REF TO TOBACCO CESS PRGM [facility] May 12, 2010 02:08 PM V1-PT READY TO QUIT TOBACCO USE [facility] MI[facility]RN [facility] May 12, 2010 12:45 PM CURRENT SMOKER 3 cigarettes a [facility] Encounter Notes: All associated encounter notes This section contains the clinical notes associated to the Encounter. Date/Time Encounter Note(s) Provider Source Jun 15, 2024 02:50 PM PSYCHOLOGY NOTE: LOCAL TITLE: PSYCHOLOGY NOTE STANDARD TITLE: PSYCHOLOGY NOTE DATE OF NOTE: JUN 15, 2024@14:50 ENTRY DATE: JUN 15, 2024@14:50:47 AUTHOR: DEBBIE GIBBS COSIGNER: URGENCY: STATUS: COMPLETED [facility] Mindful Compassion Group Therapy Note IDENTITY VERIFICATION: [X] Patient Name [X] Visual recognition [ ] Birthdate [ ] Social Security # ~~~ Waste Collector: Debbie Gibbs, PhD PROCEDURE: 60-minute interactive hybrid VVC/F2F group therapy session Problem: Difficulty being present in the moment and fostering compassion Objective: Explored and practice mindful compassion Number of Veterans Present in Group: 7 GROUP CONTENT: Group members engaged in a mindful softening and listening practice involving the poem A cushion for your head by Mallory. Group members checked in by sharing something for which they feel proud of something they appreciate about themselves. The idea of using soft, kind language with oneself was explored. Group members participated in a mindful breathing practice that involved identifying and writing kind, validating, or encouraging things they needed to hear today and pairing this with the breath. Group members committed to consider posting these in places where they will see this in moments where these words would be helpful. They committed to engage in mindful awareness between now and next group. PROGRESS: [place] arrived on time and was an active and appropriate participant. participated in the mindfulness practices and group discussions. Mental Status was not formally assessed due to the nature of the encounter. [place] maintained appropriate eye contact and was alert. [place] spoke clearly and coherently. [place]'s thoughts were linear and related. [place]'s affect was congruent to content and appropriate [...] PhD Clinical Psychologist, [facility] Signed: 06/15/2024 14:58 DEBBIE GIBBS [facility]
--- OUTSIDE RECORDS SUMMARY | 2024-08-04 17:30 | XMS_ITS | Encounter Summary ---
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 Name Role Phone CADEN FELIZ Primary [...] PLAN I Aug 19, 2019 PLAN I [id number] MEEK,GR ICEL PATIENT [employer] OPTIONS MEDICARE SUPPLEMEN MARCIA PLANM Y Aug 19, 2019 PLAN [id number] MEEK,GR ICEL PATIENT [employer] OPTIONS MEDICARE SUPPLEMEN MARCIA AARP MEDIC ARE SUPPL Aug 19, 2019 PLAN [id number] MEEK,GR ICEL PATIENT AARP INS MEDICARE SUPPLEMEN MARCIA PLANM Y Aug 19, 2019 PLAN [id number] MEEK,GR ICEL PATIENT AARP MED SUPP MEDICARE SUPPLEMEN MARCIA Jul 19, 2010 PLAN [id number] [phone] MEEK,GR ICEL PATIENT MEDICARE (WNR) MEDICARE (M) PART B Aug 19, 2008 PART B [id number] MEEK,GR ICEL PATIENT MEDICARE (WNR) MEDICARE () PART B Aug 19, 2008 PART B [id number] MEEK,GR ICEL PATIENT MEDICARE (WNR) MEDICARE () PART B Aug 19, 2008 PART B [id number] MEEK,GR ICEL PATIENT MEDICARE (WNR) MEDICARE () PART B Aug 19, 2008 PART B [id number] [phone] MEEK,GR ICEL PATIENT MEDICARE (WNR) MEDICARE () PART B Aug 19, 2008 PART B [id number] MEEK,GR ICEL PATIENT MEDICARE (WNR) MEDICARE () PART B Aug 19, 2008 PART B [id number] MEEK,GR ICEL PATIENT MEDICARE (WNR) MEDICARE () PART B Aug 19, 2008 PART B [id number] [phone] MEEK,GR ICEL PATIENT MEDICARE (WNR) MEDICARE () PART A December 18, 2003 PART A [id number] [phone] MEEK,GR ICEL PATIENT MEDICARE (WNR) MEDICARE () PART A December 18, 2003 PART A [id number] [phone] MEEK,GR ICEL PATIENT MEDICARE (WNR) MEDICARE () PART A December 18, 2003 PART A [id number] MEEK,GR ICEL PATIENT MEDICARE (WNR) MEDICARE () PART A December 18, 2003 PART A [id number] MEEK,GR ICEL PATIENT MEDICARE (WNR) MEDICARE () PART A December 18, 2003 PART A [id number] MEEK,GR ICEL PATIENT MEDICARE (WNR) MEDICARE () PART A December 18, 2003 PART A [id number] [phone] MEEK,GR ICEL PATIENT MEDICARE (WNR) MEDICARE (M) PART A December 18, 2003 PART A [id number] [phone] SABINE MEEK ICEJacky PATIENT Selected Encounter This section includes the [facility]. Date/Time Encounter Type Encounter Description Reason Pro vider Source IHE Encounter Template Text not used by [facility]
--- OUTSIDE RECORDS SUMMARY | 2024-08-04 17:31 | XMS_ITS ---
Author Name [facility] [place] [place] [facility] [place] Address [address] [place] [address] Care Team Providers Care Certified Breastfeeding Educator Name Role Phone CADEN FELIZ Primary Care [...] PLAN I Aug 19, 2019 PLAN I [id number] [phone] MEEK,GR ICEL PATIENT [employer] OPTIONS MEDICARE SUPPLEMEN MARCIA PLANM Y Aug 19, 2019 PLANMY [id number] MEEK,GR ICEL PATIENT [employer] OPTIONS MEDICARE SUPPLEMEN MARCIA AARP MEDIC ARE SUPPL Aug 19, 2019 PLAN MY [id number] MEEK,GR ICEL PATIENT AARP INS MEDICARE SUPPLEMEN MARCIA PLANM Y Aug 19, 2019 PLANMY [id number] [phone] MEEK,GR ICEL PATIENT AARP MED SUPP MEDICARE SUPPLEMEN MARCIA Jul 19, 2010 PLANMY [id number] MEEK,GR ICEL PATIENT MEDICARE (WNR) MEDICARE () PART B Aug 19, 2008 PART B [id number] [phone] MEEK,GR ICEL PATIENT MEDICARE (WNR) MEDICARE () PART B Aug 19, 2008 PART B [id number] [phone] MEEK,GR ICEL PATIENT MEDICARE (WNR) MEDICARE () PART B Aug 19, 2008 PART B [id number] MEEK,GR ICEL PATIENT MEDICARE (WNR) MEDICARE () PART B Aug 19, 2008 PART B [id number] MEEK,GR ICEL PATIENT MEDICARE (WNR) MEDICARE () PART B Aug 19, 2008 PART B [id number] MEEK,GR ICEL PATIENT MEDICARE (WNR) MEDICARE () PART B Aug 19, 2008 PART B [id number] MEEK,GR ICEL PATIENT MEDICARE (WNR) MEDICARE () PART B Aug 19, 2008 PART B [id number] [phone] MEEK,GR ICEL PATIENT MEDICARE (WNR) MEDICARE () PART A December 18, 2003 PART A [id number] MEEK,GR ICEL PATIENT MEDICARE (WNR) MEDICARE () PART A December 18, 2003 PART A [id number] MEEK,GR ICEL PATIENT MEDICARE (WNR) MEDICARE () PART A December 18, 2003 PART A [id number] [phone] MEEK,GR ICEL PATIENT MEDICARE (WNR) MEDICARE () PART A December 18, 2003 PART A [id number] MEEK,GR ICEL PATIENT MEDICARE (WNR) MEDICARE () PART A December 18, 2003 PART A [id number] MEEK,GR ICEL PATIENT MEDICARE (WNR) MEDICARE () PART A December 18, 2003 PART A [id number] SABINE MEEK PATIENT MEDICARE (WNR) MEDICARE (M) PART A December 18, 2003 PART A [id number] SABINE MEEK PATIENT Selected Encounter This section includes the information on record at [place] for the Encounter. Date/Time Encounter Type Encounter Description Reason Provider Source Jul 13, 2024 11:53 AM FIT SPECTACLES MONOFOCAL OPTOMETRY ICD-10-CM Z46.0 Encounter for fit/adjst of spectacles and contact lenses JEREMIE PARKER Darshan Encounter Template Text not used by [place] Assessments - Encounter Diagnoses This section includes the primary and secondary diagnoses documented for the Encounter. Date/Time Primary/Secondary Diagnosis Diagnosis Name Provider Source Jul 13, 2024 11:53 AM PRIMARY Encounter for fit/adjst of spectacles and contact lenses BIRDIE ESPINOAZ [facility] [place] [place] [facility] Plan of Treatment: Future Appointments (+ 6 months) and Future Tests (+/- 45 days) The Plan of Treatment section includes future care activities for the patient [facility] [place] [facility] This section includes future appointments and future orders which are active, pending or scheduled. Future Appointments This section includes appointments that were scheduled to occur 6 months from the date of the Encounter, up to a maximum of 20 appointments. The data comes from all [place] treatment facilities. Appointment Date/Time Appointment Type Appointme nt Facility Name Jul 20, 2024 09:30 AM AMBULATORY - PSYCHIATRY [place] [facility] [place] [place] [facility] Jul 21, 2024 09:30 AM AMBULATORY - MEDICINE [place] [facility] [place] [facility] Jul 22, 2024 09:00 AM AMBULATORY - PSYCHIATRY [facility] [place] [facility] Jul 27, 2024 01:00 PM AMBULATORY - PSYCHIATRY [facility] [place] [facility] Aug 07, 2024 08:00 AM AMBULATORY - MEDICINE [place] [facility] [place] [facility] Aug 07, 2024 09:45 AM AMBULATORY - NONE [facility] [place] [facility] Sep 23, 2024 09:00 AM AMBULATORY - PSYCHIATRY [facility] [place] [facility] Oct 02, 2024 02:30 PM AMBULATORY - MEDICINE [place] [facility] [place] [facility] Oct 06, 2024 11:30 AM AMBULATORY - MEDICINE [place] [facility] [place] [facility] Nov 25, 2024 08:30 AM AMBULATORY - MEDICINE [place] [facility] [place] [facility] January 04, 2025 11:00 AM [facility] Active, Pending, and Scheduled Orders This section includes a listing of several types of active, pending, and scheduled orders, including clinic medications orders, diagnostic test orders, procedure orders and consult orders; where the start date of the order is 45 days before the date of the Encounter or 45 days after the date of theEncounter. The data comes from all [place] treatment facilities. Test Date/Time Test Type Test Details Facility Name Jun 26, 2024 01:51 PM Consult Order COMMUNITY CARE-ACUPUNCTURE Cons Research Support Specialist's [facility] Jul 20, 2024 01:21 PM Consult Order COMMUNITY CARE-PULMONARY Cons Research Support [facility] Lab Results: +/- 30 days of [...] Result - Unit Interpretation Reference Range Comment Jul 27, 2024 12:24 PM [facility] HEMOGLOBIN A1C PANEL Specimen Type: BLOOD Comment: Values obtained from A1C measurements can vary. For atypical A1C assays, a reported value of 7.0 could actually be between 6.72 and 7.28 if measured by a reference method. A reported value of 9.0 could actually be between 8.73 and 9.27. Ref: http://www.ngs p.org/CAPdata. asp Ordering Provider: CADEN FELIZ Report Released Date/Time: May 08, 2024 08:51 AM Reporting Lab: [address] [id number] Performing Lab: [address] [id number] HEMOGLOBIN A1C 6.0 H 4.0-5.6 Social History: Smoking Status (Most current) and [...] it Apr 06, 2024 12:30 PM VA-TOBACCO QUIT 15 YRS OR MORE [facility] [place] [facility] Tobacco Use History This section includes a history of the smoking, or tobacco-related health factors, that were collected on or before the date of the Encounter. The data comes from the [place] facility where the Encounter took place. Date/Time Smoking Status/Tobac co Use Comment Facility Apr 06, 2024 12:30 PM VA-TOBACCO QUIT 15 YRS OR MORE [facility] [place] [facility] Feb 08, 2023 10:00 AM VA-TOBACCO FORMER USER [facility] [place] [facility] Feb 08, 2023 10:00 AM VA-TOBACCO QUIT 15 YRS OR MORE [facility] [place] [facility] Mar 06, 2022 02:30 PM VA-TOBACCO FORMER USER [facility] [place] [facility] Mar 06, 2022 02:30 PM VA-TOBACCO QUIT 15 YRS OR MORE [facility] [place] [facility] Apr 04, 2021 10:28 AM VA-TOBACCO NEVER USED [facility] [place] [facility] May 03, 2020 02:00 PM VA-TOBACCO NEVER USED [facility] [place] [facility] Feb 25, 2019 08:14 AM VA-TOBACCO FORMER USER [facility] [facility] Feb 25, 2019 08:14 AM VA-TOBACCO QUIT 5 TO < 15 YRS [facility] [place] [place] [facility] Apr 04, 2018 10:41 AM QUIT TOBACCO USE 1-7 YEARS AGO [facility] [place] [facility] Oct 28, 2017 10:18 AM QUIT TOBACCO USE 1-7 YEARS AGO [facility] [place] [facility] Jan 22, 2017 01:08 PM QUIT TOBACCO USE 1-7 YEARS AGO [facility] [place] [facility] Jul 18, 2016 01:34 PM QUIT TOBACCO USE 1-7 YEARS AGO [place] [facility] [place] [facility] January 10, 2016 10:32 AM QUIT TOBACCO USE 1-7 YEARS AGO [place] [facility] [place] [facility] Oct 13, 2015 11:05 AM QUIT TOBACCO USE 1-7 [facility] AGO [facility] [place] [facility] Oct 19, 2014 01:53 PM QUIT TOBACCO USE > 7 YEARS AGO [facility] [place] [facility] January 02, 2014 01:30 AM QUIT TOBACCO USE IN PAST YEAR [facility] Jun 18, 2013 09:00 AM CURRENT SMOKER 6 cigarettes qd [facility] Jun 18, 2013 09:00 AM V1-PT DECLINES TOBACCO CESSATION MEDS [facility] Jun 18, 2013 09:00 AM V1-PT NOT INTERESTED IN QUIT TOBACCO USE [facility] [place] [facility] December 24, 2012 10:51 AM V1-PT DECLINES REF TO TOBACCO CESS PRGM [facility] December 24, 2012 10:51 AM V1-PT DECLINES TOBACCO CESSATION MEDS [facility] [place] [facility] December 24, 2012 10:51 AM V1-PT THINKING ABOUT QUIT TOBACCO USE [facility] [place] [facility] Jul 15, 2012 10:19 AM QUIT TOBACCO USE IN PAST YEAR [facility] [place] [facility] Jan 25, 2012 05:02 PM QUIT TOBACCO USE IN PAST YEAR [facility] [place] [facility] Sep 28, 2011 10:09 AM CURRENT SMOKER 5 cigarettes a day [facility] [place] [place] [facility] Jun 15, 2011 02:23 PM V1-PT DECLINES REF TO TOBACCO CESS PRGM [facility] [place] [place] [facility] Jun 15, 2011 02:23 PM V1-PT READY TO QUIT TOBACCO USE [facility] [place] [place] [facility] Apr 13, 2011 10:31 AM V1-PT DECLINES REF TO TOBACCO CESS PRGM [facility] Apr 13, 2011 10:31 AM V1-PT RECEIVES TOBACCO CESS MEDS OUTSIDE [facility] Apr 13, 2011 10:31 AM V1-PT THINKING ABOUT QUIT TOBACCO USE [facility] Oct 16, 2010 08:52 AM QUIT TOBACCO USE IN PAST YEAR [facility] May 12, 2010 02:08 PM V1-PT DECLINES REF TO TOBACCO CESS PRGM [facility] May 12, 2010 02:08 PM V1-PT READY TO QUIT TOBACCO USE [facility] May 12, 2010 12:45 PM CURRENT SMOKER 3 cigarettes a day [facility] Encounter Notes: All associated encounter notes This section contains the clinical notes associated to the Encounter. Date/Time Encounter Note(s) Provider Source Jul 13, 2024 11:53 AM OPTOMETRY NOTE: LOCAL TITLE: OPTOMETRY NOTE STANDARD TITLE: OPTOMETRY NOTE DATE OF NOTE: JUL 13, 2024@11:53 ENTRY DATE: JUL 13, 2024@11:53:49 AUTHOR: CADEN BLANCO EXP COSIGNER: URGENCY: STATUS: COMPLETED OPTOMETRY NOTE Has ADDENDA The quote provided below is for informational purposes only. Please verify prior to the creation of a purchase order. PEBBLES MEEK 2782 RX INFORMATION OD 0.00 -0.25 X70 Add:0.00 Pzm:0.00 Dir: Prz2:0.00 Dir2: OS 0.00 0.00 X Add:0.00 Pzm:0.00 Dir: Prz2:0.00 Dir2: FITTING INFORMATION FPD:65 NPD: [place]:R: L: SEG HT:R: L: Tint:GERONIMO Shade:3 VA Billable Items FRAME: [id number] MARIO [id number] Right Lens: PLASTIC SINGLE VISION CLEAR 1.498 PLASTIC CR39 Left Lens: PLASTIC SINGLE VISION CLEAR 1.498 PLASTIC CR39 UV400 SOLID TINT CLIN items [employer] - [employer] Frame 0001 - Single Vision - Glass Plastic Poly /jeana/ CADEN BLANCO CRUSHER LOADER OPERATOR Signed: 07/13/2024 11:53 Receipt Acknowledged By: 07/13/2024 13:01 /jeana/ BIRDIE ESPINOZA OPTOMETRY TECH 07/13/2024 ADDENDUM STATUS: COMPLETED PDS Residential Subcontractor fit patient with 1 pair(s) of SV eyeglasses on 07/13/2024. OPT HT entered consult(s) as requested for provider signature. /mega ESPINOZA OPTOMETRY TECH Signed: 07/13/2024 13:04 CADEN BLANCO [facility]
--- OUTSIDE RECORDS SUMMARY | 2024-08-04 17:31 | XMS_ITS | Encounter Summary ---
Author Name [facility] [place] [facility] [place] [facility] [place] [facility] [place] Address [address] [place] [address] Care Team Providers Care Direct Of Real Estate Name Role Phone CADEN FELIZ Primary Care [...] PLAN I Aug 19, 2019 PLAN I [id number] MEEK,GR ICEL PATIENT [employer] OPTIONS MEDICARE SUPPLEMEN MARCIA PLANM Y Aug 19, 2019 PLANMY [id number] [phone] MEEK,GR ICEL PATIENT [employer] OPTIONS MEDICARE SUPPLEMEN MARCIA AARP MEDIC ARE SUPPL Aug 19, 2019 PLAN MY [id number] MEEK,GR ICEL PATIENT AARP INS MEDICARE SUPPLEMEN MARCIA PLANM Y Aug 19, 2019 PLANMY [id number] [phone] MEEK,GR ICEL PATIENT AARP MED SUPP MEDICARE SUPPLEMEN MARCIA Jul 19, 2010 PLANMY [id number] [phone] MEEK,GR ICEL PATIENT MEDICARE (WNR) MEDICARE () PART B Aug 19, 2008 PART B [id number] MEEK,GR ICEL PATIENT MEDICARE (WNR) MEDICARE () PART B Aug 19, 2008 PART B [id number] [phone] MEEK,GR ICEL PATIENT MEDICARE (WNR) MEDICARE () PART B Aug 19, 2008 PART B [id number] MEEK,GR ICEL PATIENT MEDICARE (WNR) MEDICARE () PART B Aug 19, 2008 PART B [id number] [phone] MEEK,GR ICEL PATIENT MEDICARE (WNR) MEDICARE () PART B Aug 19, 2008 PART B [id number] MEEK,GR ICEL PATIENT MEDICARE (WNR) MEDICARE () PART B Aug 19, 2008 PART B [id number] MEEK,GR ICEL PATIENT MEDICARE (WNR) MEDICARE () PART B Aug 19, 2008 PART B [id number] [phone] MEEK,GR ICEL PATIENT MEDICARE (WNR) MEDICARE () PART A December 18, 2003 PART A [id number] [phone] MEEK,GR ICEL PATIENT MEDICARE (WNR) MEDICARE () PART A December 18, 2003 PART A [id number] [phone] MEEK,GR ICEL PATIENT MEDICARE (WNR) MEDICARE () PART A December 18, 2003 PART A [id number] [phone] MEEK,GR ICEL PATIENT MEDICARE (WNR) MEDICARE () PART A December 18, 2003 PART A [id number] MEEK,GR ICEL PATIENT MEDICARE (WNR) MEDICARE () PART A December 18, 2003 PART A [id number] MEEK,GR ICEL PATIENT MEDICARE (WNR) MEDICARE () PART A December 18, 2003 PART A [id number] [phone] SABINE MEEK ICEL PATIENT MEDICARE (WNR) MEDICARE (M) PART A December 18, 2003 PART A [id number] SABINE MEEK PATIENT Selected Encounter This section includes the information on record at [place] for the Encounter. Date/Time Encounter Type Encounter Description Reason Provider Source Jul 13, 2024 11:30 AM COMPRE OPH EXAM EST PT 1/> OPTOMETRY ICD-10-CM H35.371 Puckering of macula, right eye JEREMIE PARKER [facility] Encounter Template Text not used by [place] Assessments - Encounter Diagnoses This section includes the primary and secondary diagnoses documented for the Encounter. Date/Time Primary/Secondary Diagnosis Diagnosis Name Provider Source Jul 13, 2024 11:38 AM PRIMARY Puckering of macula, right eye JEREMIE PARKER [facility] Jul 13, 2024 11:38 AM SECONDARY Glare sensitivity JEREMIE PARKER [place] [facility] [place] [facility] Jul 13, 2024 11:38 AM SECONDARY Presence of intraocular lens JEREMIE PARKER [facility] Plan of Treatment: Future Appointments (+ [...] 20, 2024 09:30 AM AMBULATORY - PSYCHIATRY [place] [facility] [place] [facility] Jul 21, 2024 09:30 AM AMBULATORY - MEDICINE [place] [facility] [place] [facility] Jul 22, 2024 09:00 AM AMBULATORY - PSYCHIATRY [place] [facility] [place] [facility] Jul 27, 2024 01:00 PM AMBULATORY - PSYCHIATRY [place] [facility] [place] [facility] Aug 07, 2024 08:00 AM AMBULATORY - MEDICINE [place] [facility] [place] [facility] Aug 07, 2024 09:45 AM AMBULATORY - NONE [place] [facility] [place] [facility] Sep 23, 2024 09:00 AM AMBULATORY - PSYCHIATRY [place] [facility] [place] [facility] Oct 02, 2024 02:30 PM AMBULATORY - MEDICINE [facility] [place] [facility] Oct 06, 2024 11:30 AM AMBULATORY - MEDICINE [place] [facility] [place] [facility] Nov 25, 2024 08:30 AM AMBULATORY - MEDICINE [place] [facility] [place] [facility] January 04, 2025 11:00 AM [facility] [place] [facility] Active, Pending, and Scheduled Orders [...] 01:51 PM Consult Order COMMUNITY CARE-ACUPUNCTURE Cons Certified Composites Technician[facility] Jul 20, 2024 01:21 PM Consult Order COMMUNITY CARE-PULMONARY Cons Certified Composites Technician's [facility] Lab Results: +/- 30 days [...] Range Comment Jul 27, 2024 12:24 PM [facility] HEMOGLOBIN A1C PANEL Specimen Type: BLOOD [...] May 08, 2024 08:51 AM Reporting Lab: [place] [facility] [place] [facility] [address] [id number] Performing Lab: [place] [facility] [place] [facility] [address] [id number] HEMOGLOBIN A1C 6.0 H 4.0-5.6 Social History: [...] took place. Date/Time Current Smoking Status Comment [facility] Apr 06, 2024 12:30 PM VA-TOBACCO QUIT 15 YRS OR MORE [place] [facility] [place] [facility] Tobacco Use History This section includes a history of the smoking, or tobacco-related health factors, that were collected on or before the date of the Encounter. The data comes from the [place] facility where the Encounter took place. Date/Time Smoking Status/Tobac co Use Comment Facility Apr 06, 2024 12:30 PM VA-TOBACCO QUIT 15 YRS OR MORE [facility] [place] [facility] Feb 08, 2023 10:00 AM VA-TOBACCO FORMER USER [facility] [place] [facility] Feb 08, 2023 10:00 AM VA-TOBACCO QUIT 15 YRS OR MORE [facility] [place] [facility] Mar 06, 2022 02:30 PM VA-TOBACCO FORMER USER [facility] [place] [facility] Mar 06, 2022 02:30 PM VA-TOBACCO QUIT 15 YRS OR MORE [facility] [place] [facility] Apr 04, 2021 10:28 AM VA-TOBACCO NEVER USED [facility] [place] [facility] May 03, 2020 02:00 PM VA-TOBACCO NEVER USED [facility] [place] [facility] Feb 25, 2019 08:14 AM VA-TOBACCO FORMER USER [facility] [place] [facility] Feb 25, 2019 08:14 AM VA-TOBACCO QUIT 5 TO < 15 YRS [facility] [place] [facility] Apr 04, 2018 10:41 AM QUIT TOBACCO USE 1-7 YEARS AGO [facility] [place] [facility] Oct 28, 2017 10:18 AM QUIT TOBACCO USE 1-7 YEARS AGO [place] [facility] [place] [facility] Jan 22, 2017 01:08 PM QUIT TOBACCO USE 1-7 YEARS AGO [facility] [place] [facility] Jul 18, 2016 01:34 PM QUIT TOBACCO USE 1-7 YEARS AGO [facility] [place] [facility] January 10, 2016 10:32 AM QUIT TOBACCO USE 1-7 YEARS AGO [facility] [place] [facility] Oct 13, 2015 11:05 AM QUIT TOBACCO USE 1-7 YEARS AGO [facility] [place] [facility] Oct 19, 2014 01:53 PM QUIT TOBACCO USE > 7 YEARS AGO [facility] [place] [facility] January 02, 2014 01:30 AM QUIT TOBACCO USE IN PAST YEAR [facility] [place] [facility] Jun 18, 2013 09:00 AM CURRENT SMOKER 6 cigarettes qd [place] [facility] [place] [facility] Jun 18, 2013 09:00 AM V1-PT DECLINES TOBACCO CESSATION MEDS [facility] [place] [facility] Jun 18, 2013 09:00 AM V1-PT NOT INTERESTED IN QUIT TOBACCO USE [facility] [place] [facility] December 24, 2012 10:51 AM V1-PT DECLINES REF TO TOBACCO CESS [facility] [place] [facility] December 24, 2012 10:51 AM V1-PT DECLINES TOBACCO CESSATION MEDS [facility] [place] [facility] December 24, 2012 10:51 AM V1-PT THINKING ABOUT QUIT TOBACCO USE [facility] [place] [facility] Jul 15, 2012 10:19 AM QUIT TOBACCO USE IN PAST YEAR [facility] [place] [facility] Jan 25, 2012 05:02 PM QUIT TOBACCO USE IN PAST YEAR [facility] [place] [facility] Sep 28, 2011 10:09 AM CURRENT SMOKER 5 cigarettes a day [facility] [place] [facility] Jun 15, 2011 02:23 PM V1-PT DECLINES REF TO TOBACCO CESS PRGM [place] [facility] [place] [facility] Jun 15, 2011 02:23 PM V1-PT READY TO QUIT TOBACCO USE [facility] Apr 13, 2011 10:31 AM V1-PT DECLINES REF TO TOBACCO CESS [facility] Apr 13, 2011 10:31 AM V1-PT RECEIVES TOBACCO CESS MEDS OUTSIDE [facility] Apr 13, 2011 10:31 AM V1-PT THINKING ABOUT QUIT TOBACCO USE [facility] Oct 16, 2010 08:52 AM QUIT TOBACCO USE IN PAST YEAR [facility] May 12, 2010 02:08 PM V1-PT DECLINES REF TO TOBACCO CESS PRGM [facility] May 12, 2010 02:08 PM V1-PT READY TO QUIT TOBACCO USE [facility] May 12, 2010 12:45 PM CURRENT SMOKER 3 cigarettes a day [facility] Encounter Notes: All associated encounter notes This section contains the clinical notes associated to the Encounter. Date/Time Encounter Note(s) Provider Source Jul 13, 2024 08:03 AM OPTOMETRY NOTE: LOCAL TITLE: OPTOMETRY NOTE(T) STANDARD TITLE: OPTOMETRY NOTE DATE OF NOTE: JUL 13, 2024@08:03 ENTRY DATE: JUL 13, 2024@08:03:52 AUTHOR: JEREMIE PARKER EXP COSIGNER: URGENCY: STATUS: COMPLETED Active Problems: Active Problem Exposure to potentially hazardous s [...] 08/30/2015 CADEN FELIZ Diabetes mellitus (SNOMED CT 621877 07/20/2015 JENN SRIVASTAVA Restless Leg Syndrome * (ICD-9-CM 3 07/15/2012 DIPAK JOSEPH Knee pain (SNOMED CT 2817327973) R5 03/26/2022 CADEN FELIZ Paroxysmal atrial fibrillation (SNO 08/30/2015 CADEN FELIZ Other and unspecified Sleep Apnea 7 07/21/2010 BRITNEY SOTO Hyperlipidemia (SNOMED CT 91910348) 08/30/2015 CADEN FELIZ Chronic anxiety (SNOMED CT 97922945 12/09/2020 JACQUE MISTRY Asthma (SNOMED CT 417366866) J45.99 08/25/2015 MARIUM HUERTA Chronic depression ([place] [address] 12/09/2020 JACQUE MISTRY PTSD - Post-traumatic stress disord 12/09/2020 JACQUE MISTRY Knee Joint replacement Status (Pros 08/30/2015 AMELIA HERNANDEZ Medications ([facility]): Active Outpatient Medications (including Supplies): Active Outpatient Medications Status 1) ALBUTEROL 3/IPRATROP 0.5MG/3ML INHL 3ML INHALE 1 ACTIVE AMPULE IN NEBULIZER EVERY 4 HOURS NEEDED FOR BRONCHOSPASM 2) APIXABAN 5MG TAB TAKE ONE TABLET BY MOUTH EVERY 12 ACTIVE HOURS 3) CETIRIZINE HCL 10MG TAB TAKE ONE TABLET BY MOUTH ONCE ACTIVE DAILY FOR ALLERGIES 4) DILTIAZEM (EQV-TIAZAC) 240MG 24HR CAP TAKE ONE ACTIVE CAPSULE BY MOUTH EVERY MORNING PATIENT EXPERIENCE ADVERSE REACTION TO [employer] BRAND/PLEASE DISPENSE VALEANT/OCEANSIDE BRAND [facility] [id number] 5) FLUTICASONE PROP 50MCG 120D NASAL INHL INSTILL 2 ACTIVE SPRAYS INTO EACH NOSTRIL ONCE DAILY FOR NASAL IRRITATION/INFLAMMATION 6) FORMOTEROL 5/MOMETASONE 200MCG 120D INHL INHALE 2 ACTIVE PUFFS BY MOUTH TWICE DAILY FOR CONTROLLER MEDICATION FOR ASTHMA 7) SERTRALINE(ZOLOFT) 100MG TAB*BRAND NAME* TAKE TWO ACTIVE TABLETS BY MOUTH ONCE DAILY ANXIETY 8) TRAZODONE HCL 100MG TAB TAKE ONE-HALF TABLET [...] CAP 50MG BY MOUTH ACTIVE ONCE DAILY 15 Total Medications Allergies: SULFUR, ZOCOR, NIACIN, VARENICLINE, MOXIFLOXACIN, MIRTAZAPINE ASPIRIN RELATED MEDICATIONS, ATORVASTATIN S: 74-year-old female with asymmetric cupping and family history of glaucoma is in for followup. She is status post ECCE with PC IOL each eye and had YAG laser for PCO OS. She is also status post blepharoplasty with Dr Mensah. She wears reading glasses only. She also has an approximately 18 year history of diabetes and states that her blood glucose is mostly controlled but will fluctuate. Family medical history is negative for hypertension, diabetes, kidney disease, liver disease, thyroid disease, and arthritis. She uses lubricating drops for dry eyes and ketotifen for allergies. JELLY: 04/15/2023 (-) Pain: (-) ABURTO: (-) Diplopia: (-) Flashes: (-) Floaters: (-) Amaurosis Fugax/Tia's: (-) Eye Injury: (+) Eye Surgery: CE with PCIOL both eyes and YAG laser OS 04/08 [facility] [place] and blepharoplasty OU with spring 2021 (-) TBI O: Visual acuity without correction was 20/20 slow OD and 20/20 OS. Pupils were equal and round and reactive to light with no affarent defect. Extraocular muscles were intact and facial confrontation dumont were full. Lids and lashes were clear OU. Corneas and conjunctiva were clear each eye. Anterior chambers were deep clear and quiet with open angles. Iris was flat each eye without neovascularization or transillumination or pseudoexfoliation. Posterior chamber lenses were in place and clear each eye. Refraction PL-0.25 X 70 20/[address] sphere 20/20 + 2.50 gives 20/20 each eye Intraocular pressures at 11:20 AM were 18 mm mercury OD and 18 mm mercury OS. Prior pachymetry 0.540 OD 0.543 OS Dilating Drops: 1GTT 1 % Tropicamide OU & 1GTT 2.5% Phenylephrine OU (Pt. ed. on side effects, dilation warning given and verbal consent obtained) Patient advised not to drive if they feel they have any symptoms which could affect their ability to drive safely. Patient advised not to engage in any activities which could put themselves or others at risk if they feel they haveany symptoms which could affect their ability to perform those activities safely. Vitreous was clear OU. Approximately 50 % horizontal and vertical cupping was seen OD and 40 % horizontal and vertical cupping OS without neovascularization and with healthy rims and margins and no notches or hemorrhages. Normal pigmentary architecture of the macula was seen without lipid or edema. ERM was seen OD superior macula. No retinopathy was seen each eye. A one half artery to vein ratio was seen. Retinal peripheries were intact in all quadrants OU. A: Open angle glaucoma suspect with positive family history and history of stable dumont and OCT. ERM OD. Pseudophakia looks perfect each eye with status post YAG OS. Diabetes per history without ocular manifestations History of ocular allergy and dry eye, not symptomatic today. P:Continue ketotifen and lubricating drops as needed. Patient will return in 6 months for repeat imaging and 12 months for comprehensive exam pending imaging results. [place] Education: After discussion and answering all 's questions, [place] demonstrated and verbalized understanding of diagnosis and treatment. Yes [x] No [ ] Medication Reconciliation: Outpatient: Has the patient been taking medications as documented in the EMLR? YES: The patient has been taking medications as documented in the EMLR. Essential Medication List for Review used to complete this medication reconciliation. INCLUDED IN THIS LIST: Alphabetical list of active outpatient prescriptions dispensed from this [place] (local) and dispensed from another VA or [...] with a VA or non-VA provider. /jeana/ JEREMIE PRAKER OD STAFF VULCANIZING MACHINE OPERATOR Signed: 07/13/2024 11:38 JEREMIE PARKER [place] [facility]
--- OUTSIDE RECORDS SUMMARY | 2024-08-04 17:31 | XMS_ITS ---
Author Name [facility] [facility] [place] Organization [facility] [place] Address [address] [place] [address] Care Team Providers Care Pipeliner Name Role Phone CADEN FELIZ Primary Care [...] PLAN I Aug 19, 2019 PLAN I [id number] MEEK,SABINE ICEL PATIENT [employer] OPTIONS MEDICARE SUPPLEMEN MARCIA PLANM Y Aug 19, 2019 PLANMY [id number] MEEK,GR ICEL PATIENT [employer] OPT[employer] MEDICARE SUPPLEMEN MARCIA AARP MEDIC ARE SUPPL Aug 19, 2019 PLAN MY [id number] [phone] MEEK,SABINE ICEL PATIENT AARP INS MEDICARE SUPPLEMEN MARCIA PLANM Y Aug 19, 2019 PLANMY [id number] MEEK,GR ICEL PATIENT AARP MED SUPP MEDICARE SUPPLEMEN MARCIA Jul 19, 2010 PLANMY [id number] MEEK,GR ICEL PATIENT MEDICARE (WNR) MEDICARE () PART B Aug 19, 2008 PART B [id number] MEEK,GR ICEL PATIENT MEDICARE (WNR) MEDICARE () PART B Aug 19, 2008 PART B [id number] MEEK,GR ICEL PATIENT MEDICARE (WNR) MEDICARE () PART B Aug 19, 2008 PART B [id number] [phone] MEEK,GR ICEL PATIENT MEDICARE (WNR) MEDICARE () PART B Aug 19, 2008 PART B [id number] [phone] MEEK,GR ICEL PATIENT MEDICARE (WNR) MEDICARE () PART B Aug 19, 2008 PART B [id number] [phone] MEEK,GR ICEL PATIENT MEDICARE (WNR) MEDICARE () PART B Aug 19, 2008 PART B [id number] [phone] MEEK,GR ICEL PATIENT MEDICARE (WNR) MEDICARE () PART B Aug 19, 2008 PART B [id number] MEEK,GR ICEL PATIENT MEDICARE (WNR) MEDICARE () PART A December 18, 2003 PART A [id number] MEEK,GR ICEL PATIENT MEDICARE (WNR) MEDICARE () PART A December 18, 2003 PART A [id number] MEEK,GR ICEL PATIENT MEDICARE (WNR) MEDICARE () PART A December 18, 2003 PART A [id number] [phone] MEEK,GR ICEL PATIENT MEDICARE (WNR) MEDICARE () PART A December 18, 2003 PART A [id number] MEEK,GR ICEL PATIENT MEDICARE (WNR) MEDICARE () PART A December 18, 2003 PART A [id number] MEEK,GR ICEL PATIENT MEDICARE (WNR) MEDICARE () PART A December 18, 2003 PART A [id number] SABINE MEEK PATIENT MEDICARE (WNR) MEDICARE (M) PART A December 18, 2003 PART A [id number] SABINE MEEK PATIENT Selected Encounter This section includes the information on record at [place] for the Encounter. Date/Time Encounter Type Encounter Description Reason Pro vider Source Jul 06, 2024 01:00 PM Outpatient Encounter [facility] Encounter Template Text not used by [place] Plan of Treatment: Future Appointments (+ 6 months) and Future Tests (+/- 45 days) The Plan of Treatment section includes future care activities for the patient from all [place] [facility]. This section includes future appointments and future orders which are active, pending or scheduled. Future Appointments This section includes appointments that were scheduled to occur 6 months from the date of the Encounter, up to a maximum of 20 appointments. The data comes from all [place] treatment facilities. Appointment Date/Time Appointment Type Appointme nt Facility Name Jul 13, 2024 11:30 AM AMBULATORY - MEDICINE [place] [facility] [place] [facility] Jul 13, 2024 01:00 PM AMBULATORY - PSYCHIATRY [place] [facility] [place] [facility] Jul 20, 2024 09:30 AM AMBULATORY - PSYCHIATRY [place] [facility] [place] [facility] Jul 21, 2024 09:30 AM AMBULATORY - MEDICINE [place] [facility] [place] [facility] Jul 22, 2024 09:00 AM AMBULATORY - PSYCHIATRY [place] [facility] [place] [facility] Jul 27, 2024 01:00 PM AMBULATORY - PSYCHIATRY [facility] [place] [facility] Aug 07, 2024 08:00 AM AMBULATORY - MEDICINE [place] [facility] [place] [facility] Aug 07, 2024 09:45 AM AMBULATORY - NONE [facility] [place] [facility] Sep 23, 2024 09:00 AM AMBULATORY - PSYCHIATRY [place] [facility] [place] [facility] Oct 02, 2024 02:30 PM AMBULATORY - MEDICINE [place] [facility] [place] [facility] Oct 06, 2024 11:30 AM AMBULATORY - MEDICINE [place] [facility] [place] [facility] Nov 25, 2024 08:30 AM AMBULATORY - MEDICINE [facility] Active, Pending, and Scheduled Orders This section includes a listing of several types of active, pending, and scheduled orders, including clinic medications orders, diagnostic test orders, procedure orders and consult orders; where the start date of the order is 45 days before the date of the Encounter or 45 days after the date of theEncounter. The data comes from all [place] treatment facilities. Test Date/Time Test Type Test Details Facility Name May 28, 2024 09:28 AM Consult Order COMMUNITY CARE-DENTAL SPECIALTY Cons Resident Services Supervisor's Choice [facility] Jun 26, 2024 01:51 PM Consult Order COMMUNITY CARE-ACUPUNCTURE Cons Resident Services Supervisor's Choice [facility] Jul 20, 2024 01:21 PM Consult Order COMMUNITY CARE-PULMONARY Cons Resident Services Supervisor's Choice [facility] Lab Results: +/- 30 days of the encounter This section includes the Chemistry and Hematology Lab Results on record with [place] for the patient. Radiology Reports and Pathology Reports are provided separately, in subsequent sections. Lab Results This section contains the Chemistry/Hematology Results that were resulted 30 days before or 30 daysafter the date of the Encounter. Date/Time Source Result Type Result - Unit Interpretation Reference Range Comment Jul 27, 2024 12:24 PM [facility] HEMOGLOBIN A1C PANEL Specimen Type: BLOOD Comment: [...] May 08, 2024 08:51 AM Reporting Lab: [facility] [address] [facility] [id number] Performing Lab: [address] [address] HEMOGLOBIN A1C 6.0 H 4.0-5.6 Social History: Smoking Status (Most current) and Tobacco Use (All prior to encounter date) This section includes the most current, and the historical, smoking and tobacco- related health factors from the AL facility where the Encounter took place. Current Smoking Status This section includes the most current smoking, or tobacco-related health factor, from the [place] facility where the Encounter took place. Date/Time Current Smoking Status Comment Facil [facility] Apr 06, 2024 12:30 PM VA-TOBACCO FORMER USER [place] [facility] [place] [facility] Tobacco Use History This section includes a history of the smoking, or tobacco-related health factors, that were collected on or before the date of the Encounter. The data comes from the [place] facility where the Encounter took place. Date/Time Smoking Status/Tobac co Use Comment Facility Apr 06, 2024 12:30 PM VA-TOBACCO QUIT 15 YRS OR MORE [facility] [place] [facility] Feb 08, 2023 10:00 AM VA-TOBACCO FORMER USER [facility] [place] [facility] Feb 08, 2023 10:00 AM VA-TOBACCO QUIT 15 YRS OR MORE [facility] [place] [facility] Mar 06, 2022 02:30 PM VA-TOBACCO FORMER USER [facility] [place] [facility] Mar 06, 2022 02:30 PM VA-TOBACCO QUIT 15 YRS OR MORE [facility] [place] [facility] Apr 04, 2021 10:28 AM VA-TOBACCO NEVER USED [facility] [place] [facility] May 03, 2020 02:00 PM VA-TOBACCO NEVER USED [facility] [place] [facility] Feb 25, 2019 08:14 AM VA-TOBACCO FORMER USER [facility] [place] [facility] Feb 25, 2019 08:14 AM VA-TOBACCO QUIT 5 TO < 15 YRS [facility] [place] [facility] Apr 04, 2018 10:41 AM QUIT TOBACCO USE 1-7 YEARS AGO [facility] [place] [facility] Oct 28, 2017 10:18 AM QUIT TOBACCO USE 1-7 YEARS AGO [facility] [place] [facility] Jan 22, 2017 01:08 PM QUIT TOBACCO USE 1-7 YEARS AGO [facility] [place] [facility] Jul 18, 2016 01:34 PM QUIT TOBACCO USE 1-7 YEARS AGO [facility] [place] [facility] January 10, 2016 10:32 AM QUIT TOBACCO USE 1-7 YEARS AGO [facility] [place] [facility] Oct 13, 2015 11:05 AM QUIT TOBACCO USE 1-7 YEARS AGO [place] [facility] [place] [facility] Oct 19, 2014 01:53 PM QUIT TOBACCO USE > 7 YEARS AGO [place] [facility] [place] [facility] January 02, 2014 01:30 AM QUIT TOBACCO USE IN PAST YEAR [facility] [place] [facility] Jun 18, 2013 09:00 AM CURRENT SMOKER 6 cigarettes qd [place] [facility] [place] [facility] Jun 18, 2013 09:00 AM V1-PT DECLINES TOBACCO CESSATION MEDS [facility] [place] [facility] Jun 18, 2013 09:00 AM V1-PT NOT INTERESTED IN QUIT TOBACCO USE [facility] [place] [facility] December 24, 2012 10:51 AM V1-PT DECLINES REF TO TOBACCO CESS PRGM [facility] December 24, 2012 10:51 AM V1-PT DECLINES TOBACCO CESSATION MEDS [facility] [place] [facility] December 24, 2012 10:51 AM V1-PT THINKING ABOUT QUIT TOBACCO USE [facility] [place] [facility] Jul 15, 2012 10:19 AM QUIT TOBACCO USE IN PAST YEAR [facility] [place] [facility] Jan 25, 2012 05:02 PM QUIT TOBACCO USE IN PAST YEAR [facility] [place] [facility] Sep 28, 2011 10:09 AM CURRENT SMOKER 5 cigarettes a day [facility] [place] [facility] Jun 15, 2011 02:23 PM V1-PT DECLINES REF TO TOBACCO CESS PRGM [facility] [place] [facility] Jun 15, 2011 02:23 PM V1-PT READY TO QUIT TOBACCO USE [facility] [place] [facility] Apr 13, 2011 10:31 AM V1-PT DECLINES REF TO TOBACCO CESS PRGM [facility] [place] [facility] Apr 13, 2011 10:31 AM V1-PT RECEIVES TOBACCO CESS MEDS OUTSIDE [facility] Apr 13, 2011 10:31 AM V1-PT THINKING ABOUT QUIT TOBACCO USE [facility] Oct 16, 2010 08:52 AM QUIT TOBACCO USE IN PAST YEAR [facility] May 12, 2010 02:08 PM V1-PT DECLINES REF TO TOBACCO CESS PRGM [facility] May 12, 2010 02:08 PM V1-PT READY TO QUIT TOBACCO USE [facility] May 12, 2010 12:45 PM CURRENT SMOKER 3 cigarettes a day [facility] Encounter Notes: All associated encounter notes This section contains the clinical notes associated to the Encounter. Date/Time Encounter Note(s) Provider Source Jul 06, 2024 02:14 PM CLERICAL NOTE: LOCAL TITLE: APPOINTMENT NO SHOW STANDARD TITLE: CLERICAL NOTE DATE OF NOTE: JUL 06, 2024@14:14 ENTRY DATE: JUL 06, 2024@14:14:26 AUTHOR: DEBBIE GIBBS COSIGNER: URGENCY: STATUS: COMPLETED Patient Name: PEBBLES MEEK Patient SSN: [id number] Date and time of Appointment No show : 07/06/24 13:00 PATIENT PHONE - PHONE NUMBER [CELLULAR] - Patient's medical record was reviewed. Follow-up actions were determined and initiated: Please check/complete as applies: [X]Telephoned Directly [ ]Re-scheduled for next available appt [ ]Sent a N0-show letter ( must call for appointment) [ ]Other (Emergent/Overbook, etc.): Additional Comments: Called and spoke to [place], who apologized for not showing up for or calling to cancel today's [facility] group appointment due to illness. Expressed understanding. Confirmed plans to attend next week if feeling well. [place] agreed to meet for an individual appointment to plan for her upcoming group graduation on Saturday, July 20, 2024 at 9:30am F2F in [address]. No evidence of imminent risk. [place] thanked scientific writer for the call. Future Clinic Visits 07/13/2024 11:30 NHM/OPTOMETRY/BORASKI 07/13/2024 13:00 CWM/NO/MHC/PSYLG 3 GRP 07/22/2024 09:00 NHM/PCMHI/EXHAUSTER-TELEPH 08/07/2024 08:00 CWM/NO/PACT 6 WH 08/07/2024 09:45 NHM DENTAL RDH 2 AM 10/02/2024 14:30 COM CARE-MAMMO FEM SCRN 10/06/2024 11:30 CWM/NO/PODIATRY A 11/25/2024 08:30 COM CARE-DENTAL SPECIAL /es/ Debbie Gibbs, PhD Clinical Psychologist, [facility] Signed: 07/06/2024 14:18 DEBBIE GIBBS [facility]
[2024-08-04 17:32] LABS: Influenza A PCR NEGATIVE (Negative); Influenza B PCR NEGATIVE (Negative); Resp Syncy Virus RNA Qual PCR NEGATIVE (Negative); SARS COV2 PCR INHOUSE NEGATIVE (Negative)
--- OUTSIDE RECORDS SUMMARY | 2024-08-04 17:32 | XMS_ITS | Encounter Summary ---
Author Name [facility] [place] Address [address] [place] [address] Care Team Providers Care Oenologist Name Role Phone CADEN FELIZ Primary Care [...] PLAN I Aug 19, 2019 PLAN I [id number] MEEK,SABINE ICEL PATIENT [employer] OPTIONS MEDICARE SUPPLEMEN MARCIA PLANM Y Aug 19, 2019 PLANMY [id number] MEEK,GR ICEL PATIENT [employer] OPTIONS MEDICARE SUPPLEMEN MARCIA AARP MEDIC ARE SUPPL Aug 19, 2019 PLAN MY [id number] [phone] MEEK,GR ICEL PATIENT AARP INS MEDICARE SUPPLEMEN MARCIA PLANM Y Aug 19, 2019 PLANMY [id number] [phone] MEEK,GR ICEL PATIENT AARP MED SUPP MEDICARE SUPPLEMEN MARCIA Jul 19, 2010 PLANMY [id number] MEEK,GR ICEL PATIENT MEDICARE (WNR) MEDICARE () PART B Aug 19, 2008 PART B [id number] MEEK,GR ICEL PATIENT MEDICARE (WNR) MEDICARE () PART B Aug 19, 2008 PART B [id number] MEEK,GR ICEL PATIENT MEDICARE (WNR) MEDICARE () PART B Aug 19, 2008 PART B [id number] MEEK,GR ICEL PATIENT MEDICARE (WNR) MEDICARE () PART B Aug 19, 2008 PART B [id number] [phone] MEEK,GR ICEL PATIENT MEDICARE (WNR) MEDICARE () PART B Aug 19, 2008 PART B [id number] MEEK,GR ICEL PATIENT MEDICARE (WNR) MEDICARE () PART B Aug 19, 2008 PART B [id number] [phone] MEEK,GR ICEL PATIENT MEDICARE (WNR) MEDICARE () PART B Aug 19, 2008 PART B [id number] [phone] MEEK,GR ICEL PATIENT MEDICARE (WNR) MEDICARE () PART A December 18, 2003 PART A [id number] MEEK,GR ICEL PATIENT MEDICARE (WNR) MEDICARE () PART A December 18, 2003 PART A [id number] MEEK,GR ICEL PATIENT MEDICARE (WNR) MEDICARE () PART A December 18, 2003 PART A [id number] MEEK,GR ICEL PATIENT MEDICARE (WNR) MEDICARE () PART A December 18, 2003 PART A [id number] [phone] MEEK,GR ICEL PATIENT MEDICARE (WNR) MEDICARE () PART A December 18, 2003 PART A [id number] [phone] MEEK,GR ICEL PATIENT MEDICARE (WNR) MEDICARE () PART A December 18, 2003 PART A [id number] SABINE MEEK PATIENT MEDICARE (WNR) MEDICARE (M) PART A December 18, 2003 PART A [id number] SABINE MEEK PATIENT Selected Encounter This section includes the information on record at [place] for the Encounter. Date/Time Encounter Type Encounter Description Reason Pro vider Source Jul 15, 2024 11:14 AM Outpatient Encounter COMMUNITY CARE CONSULT IHE [...] 20, 2024 09:30 AM AMBULATORY - [place]IATRY [place] [facility] [place] [facility] Jul 21, 2024 09:30 AM AMBULATORY - MEDICINE [place] [facility] [place] [facility] Jul 22, 2024 09:00 AM AMBULATORY - PSYCHIATRY [place] [facility] [place] [facility] Jul 27, 2024 01:00 PM AMBULATORY - PSYCHIATRY [place] [facility] [place] [facility] Aug 07, 2024 08:00 AM AMBULATORY - MEDICINE [place] [facility] [place] [facility] Aug 07, 2024 09:45 AM AMBULATORY - NONE [place] [facility] [place] [facility] Sep 23, 2024 09:00 AM AMBULATORY - PSYCHIATRY [facility] [place] [facility] Oct 02, 2024 02:30 PM AMBULATORY - MEDICINE [place] [facility] [place] [facility] Oct 06, 2024 11:30 AM AMBULATORY - MEDICINE [place] [facility] [place] [facility] Nov 25, 2024 08:30 AM AMBULATORY - MEDICINE [place] [facility] [place] [facility] January 04, 2025 11:00 AM AMBULATORY - MEDICINE [place] [facility] [place] [facility] Active, Pending, and Scheduled Orders This [...] 01:51 PM Consult Order COMMUNITY CARE-ACUPUNCTURE Cons Broom Stitcher's Choice [facility] Jul 20, 2024 01:21 PM Consult Order COMMUNITY CARE-PULMONARY Cons Broom Stitcher's Choice [facility] Lab Results: +/- 30 days [...] Range Comment Jul 27, 2024 12:24 PM [facility] HEMOGLOBIN A1C PANEL Specimen Type: BLOOD [...] May 08, 2024 08:51 AM Reporting Lab: [facility] [address] [facility] [address] Performing Lab: [address] [address] HEMOGLOBIN A1C 6.0 H 4.0-5.6 Social History: [...] VA-TOBACCO FORMER USER [place] [facility] [place] [facility] Tobacco Use History This section includes a history of the smoking, or tobacco-related health factors, that were collected on or before the date of the Encounter. The data comes from the [place] facility where the Encounter took place. Date/Time Smoking Status/Tobac co Use Comment Facility Apr 06, 2024 12:30 PM VA-TOBACCO QUIT 15 YRS OR MORE [facility] [place] [facility] Feb 08, 2023 10:00 AM VA-TOBACCO FORMER USER [facility] [place] [facility] Feb 08, 2023 10:00 AM VA-TOBACCO QUIT 15 YRS OR MORE [facility] [place] [facility] Mar 06, 2022 02:30 PM VA-TOBACCO FORMER USER [facility] [place] [facility] Mar 06, 2022 02:30 PM VA-TOBACCO QUIT 15 YRS OR MORE [facility] [place] [facility] Apr 04, 2021 10:28 AM VA-TOBACCO NEVER USED [place] [facility] [place] [facility] May 03, 2020 02:00 PM VA-TOBACCO NEVER USED [place] [facility] [place] [facility] Feb 25, 2019 08:14 AM VA-TOBACCO FORMER USER [facility] [place] [facility] Feb 25, 2019 08:14 AM VA-TOBACCO QUIT 5 TO < 15 YRS [facility] [place] [facility] Apr 04, 2018 10:41 AM QUIT TOBACCO USE 1-7 YEARS AGO [facility] [place] [facility] Oct 28, 2017 10:18 AM QUIT TOBACCO USE 1-7 YEARS AGO [facility] [place] [facility] Jan 22, 2017 01:08 PM QUIT TOBACCO USE 1-7 YEARS AGO [facility] [place] [facility] Jul 18, 2016 01:34 PM QUIT TOBACCO USE 1-7 YEARS AGO [facility] [place] [facility] January 10, 2016 10:32 AM QUIT TOBACCO USE 1-7 YEARS AGO [facility] [place] [facility] Oct 13, 2015 11:05 AM QUIT TOBACCO USE 1-7 YEARS AGO [facility] [place] [facility] Oct 19, 2014 01:53 PM QUIT TOBACCO USE > 7 YEARS AGO [facility] [place] [facility] January 02, 2014 01:30 AM QUIT TOBACCO USE IN PAST YEAR [facility] [place] [facility] Jun 18, 2013 09:00 AM CURRENT SMOKER 6 cigarettes qd [place] [facility] [place] [facility] Jun 18, 2013 09:00 AM V1-PT DECLINES TOBACCO CESSATION MEDS [facility] Jun 18, 2013 09:00 AM V1-PT NOT INTERESTED IN QUIT TOBACCO USE [place] [facility] [place] [facility] December 24, 2012 10:51 AM V1-PT DECLINES REF TO TOBACCO CESS PRGM [facility] [place] [facility] December 24, 2012 10:51 AM V1-PT DECLINES TOBACCO CESSATION MEDS [facility] [place] [facility] December 24, 2012 10:51 AM V1-PT THINKING ABOUT QUIT TOBACCO USE [facility] [place] [facility] Jul 15, 2012 10:19 AM QUIT TOBACCO USE IN PAST YEAR [facility] [place] [facility] Jan 25, 2012 05:02 PM QUIT TOBACCO USE IN PAST YEAR [facility] Sep 28, 2011 10:09 AM CURRENT SMOKER 5 cigarettes a day [facility] [place] [facility] Jun 15, 2011 02:23 PM V1-PT DECLINES REF TO TOBACCO CESS PRGM [facility] Jun 15, 2011 02:23 PM V1-PT READY TO QUIT TOBACCO USE [facility] [place] [facility] Apr 13, 2011 10:31 AM V1-PT DECLINES REF TO TOBACCO CESS PRGM [facility] [place] [facility] Apr 13, 2011 10:31 AM V1-PT RECEIVES TOBACCO CESS MEDS [facility]IDE [facility] Apr 13, 2011 10:31 AM V1-PT THINKING ABOUT QUIT TOBACCO USE [facility] [place] [facility] Oct 16, 2010 08:52 AM QUIT TOBACCO USE IN PAST YEAR [facility] [place] [facility] May 12, 2010 02:08 PM V1-PT DECLINES REF TO TOBACCO CESS PRGM [facility] May 12, 2010 02:08 PM V1-PT READY TO QUIT TOBACCO USE [facility] May 12, 2010 12:45 PM CURRENT SMOKER 3 cigarettes a day [facility] Encounter Notes: All associated encounter notes This section contains the clinical notes associated to the Encounter. Date/Time Encounter Note(s) Provider Source Jul 15, 2024 11:14 AM NONVA NOTE: LOCAL TITLE: COMMUNITY CARE-CARE COORDINATION PLAN NOTE STANDARD TITLE: NONVA NOTE DATE OF NOTE: JUL 15, 2024@11:14 ENTRY DATE: JUL 15, 2024@11:14:28 AUTHOR: CRISTEL BENITEZ EXP COSIGNER: URGENCY: STATUS: COMPLETED COMMUNITY CARE-CARE COORDINATION PLAN NOTE Has ADDENDA [facility] [address] [place] [address] [place] [address] appt 07/21/2024 at 0930 Alert to PACT-please enter new CC pulm consult if in agreement. Thank you /jeana/ CRISTEL BENITEZ Community Care RN Signed: 07/15/2024 11:16 Receipt Acknowledged By: 07/15/2024 11:28 /jeana/ ZORAIDA PERES REGISTERED NURSE 07/23/2024 00:10 /jeana/ CADEN FELIZ M.D. PHYSICIAN 07/15/2024 ADDENDUM STATUS: COMPLETED Community care consult entered held for signature /jeana/ ZORAIDA PERES REGISTERED NURSE Signed: 07/15/2024 11:28 CRISTEL BENITEZ [facility]
--- OUTSIDE RECORDS SUMMARY | 2024-08-04 17:32 | XMS_ITS | Encounter Summary ---
Author Name [facility] [place] [facility] [place] Organization [facility] [place] Address [address] [place] [address] Care Team Providers Care College Teacher Name Role Phone CADEN FELIZ Primary [...] PLAN I Aug 19, 2019 PLAN I [id number] [phone] MEEK,SABINE ICEL PATIENT [employer] OPTIONS MEDICARE SUPPLEMEN MARCIA PLANM Y Aug 19, 2019 PLANMY [id number] MEEK,GR ICEL PATIENT [employer] OPTIONS MEDICARE SUPPLEMEN MARCIA AARP MEDIC ARE SUPPL Aug 19, 2019 PLAN MY [id number] MEEK,SABINE ICEL PATIENT A[employer] INS MEDICARE SUPPLEMEN MARCIA PLANM Y Aug 19, 2019 PLANMY [id number] [phone] MEEK,GR ICEL PATIENT A[employer] MED SUPP MEDICARE SUPPLEMEN MARCIA Jul 19, 2010 PLANMY [id number] [phone] MEEK,GR ICEL PATIENT MEDICARE (WNR) MEDICARE () PART B Aug 19, 2008 PART B [id number] MEEK,GR ICEL PATIENT MEDICARE (WNR) MEDICARE () PART B Aug 19, 2008 PART B [id number] MEEK,GR ICEL PATIENT MEDICARE (WNR) MEDICARE () PART B Aug 19, 2008 PART B [id number] MEEK,GR ICEL PATIENT MEDICARE (WNR) MEDICARE () PART B Aug 19, 2008 PART B [id number] [phone] MEEK,GR ICEL PATIENT MEDICARE (WNR) MEDICARE () PART B Aug 19, 2008 PART B [id number] [phone] MEEK,GR ICEL PATIENT MEDICARE (WNR) MEDICARE () PART B Aug 19, 2008 PART B [id number] MEEK,GR ICEL PATIENT MEDICARE (WNR) MEDICARE () PART B Aug 19, 2008 PART B [id number] MEEK,GR ICEL PATIENT MEDICARE (WNR) MEDICARE () PART A December 18, 2003 PART A [id number] [phone] MEEK,GR ICEL PATIENT MEDICARE (WNR) MEDICARE () PART A December 18, 2003 PART A [id number] MEEK,GR ICEL PATIENT MEDICARE (WNR) MEDICARE () PART A December 18, 2003 PART A [id number] MEEK,GR ICEL PATIENT MEDICARE (WNR) MEDICARE () PART A December 18, 2003 PART A [id number] MEEK,GR ICEL PATIENT MEDICARE (WNR) MEDICARE () PART A December 18, 2003 PART A [id number] [phone] MEEK,GR ICEL PATIENT MEDICARE (WNR) MEDICARE () PART A December 18, 2003 PART A [id number] SABINE MEEK PATIENT MEDICARE (WNR) MEDICARE (M) PART A December 18, 2003 PART A [id number] SABINE MEEK PATIENT Selected Encounter This section includes the information on record at [place] for the Encounter. Date/Time Encounter Type Encounter Description Reason Pro vider Source Jul 13, 2024 01:00 PM Outpatient Encounter [facility] Encounter Template Text not used by [place] Plan of Treatment: Future Appointments (+ 6 months) and Future Tests (+/- 45 days) The Plan of Treatment section includes future care activities for the [facility] This section includes future appointments [...] AMBULATORY - PSYCHIATRY [facility] [place] [facility] Jul 21, 2024 09:30 AM AMBULATORY - MEDICINE [place] [facility] [place] [facility] Jul 22, 2024 09:00 AM AMBULATORY - PSYCHIATRY [facility] [place] [facility] Jul 27, 2024 01:00 PM AMBULATORY - PSYCHIATRY [facility] [place] [facility] Aug 07, 2024 08:00 AM AMBULATORY - MEDICINE [place] [facility] [place] [facility] Aug 07, 2024 09:45 AM AMBULATORY - NONE [facility] [place] [facility] Sep 23, 2024 09:00 AM AMBULATORY - PSYCHIATRY [facility] [place] [facility] Oct 02, 2024 02:30 PM AMBULATORY - MEDICINE DC [facility] [place] [facility] Oct 06, 2024 11:30 AM AMBULATORY - MEDICINE DC [facility] [place] [facility] Nov 25, 2024 08:30 AM AMBULATORY - MEDICINE DC [facility] [place] [facility] January 04, 2025 11:00 AM AMBULATORY - MEDICINE DC [facility] [place] [facility] Active, Pending, and Scheduled Orders [...] 01:51 PM Consult Order COMMUNITY CARE-ACUPUNCTURE Cons Underwriting Director's Choice [facility] Jul 20, 2024 01:21 PM Consult Order COMMUNITY CARE-PULMONARY Cons Underwriting Director's Choice [facility] Lab Results: +/- 30 days of the encounter This section includes the Chemistry and Hematology Lab Results on record with [place] for the patient. Radiology Reports and Pathology Reports are provided separately, in subsequent sections. Lab Results This section contains the Chemistry/Hematology Results that were resulted 30 days before or 30 daysafter the date of the Encounter. Date/Time Source Result Type Result - Unit Interpretation Reference Range Comment Jul 27, 2024 12:24 PM [facility] HEMOGLOBIN A1C PANEL Specimen Type: BLOOD Comment: [...] 08, 2024 08:51 AM Reporting Lab: [facility] [address] [facility] [id number] Performing Lab: [address] [address] HEMOGLOBIN A1C 6.0 H 4.0-5.6 Social History: [...] 06, 2024 12:30 PM VA-TOBACCO FORMER USER [place] [facility] [place] [facility] Tobacco Use History This section includes a history of the smoking, or tobacco-related health factors, that were collected on or before the date of the Encounter. The data comes from the [place] facility where the Encounter took place. Date/Time Smoking Status/Tobac co Use Comment [facility] Apr 06, 2024 12:30 PM VA-TOBACCO QUIT 15 YRS OR MORE [facility] [place] [facility] Feb 08, 2023 10:00 AM VA-TOBACCO FORMER USER [facility] [place] [facility] Feb 08, 2023 10:00 AM VA-TOBACCO QUIT 15 YRS OR MORE [facility] [place] [facility] Mar 06, 2022 02:30 PM VA-TOBACCO FORMER USER [facility] [place] [facility] Mar 06, 2022 02:30 PM VA-TOBACCO QUIT 15 YRS OR MORE [place] [facility] [place] [facility] Apr 04, 2021 10:28 AM VA-TOBACCO NEVER USED [facility] [place] [facility] May 03, 2020 02:00 PM VA-TOBACCO NEVER USED [place] [facility] [place] [facility] Feb 25, 2019 08:14 AM VA-TOBACCO FORMER USER [facility] [place] [facility] Feb 25, 2019 08:14 AM VA-TOBACCO QUIT 5 TO < 15 YRS [facility] [place] [facility] Apr 04, 2018 10:41 AM QUIT TOBACCO USE 1-7 YEARS AGO [facility] [place] [facility] Oct 28, 2017 10:18 AM QUIT TOBACCO USE 1-7 YEARS AGO [facility] [place] [facility] Jan 22, 2017 01:08 PM QUIT TOBACCO USE 1-7 YEARS AGO [facility] [place] [facility] Jul 18, 2016 01:34 PM QUIT TOBACCO USE 1-7 YEARS AGO [facility] [place] [facility] January 10, 2016 10:32 AM QUIT TOBACCO USE 1-7 YEARS AGO [facility] [place] [facility] Oct 13, 2015 11:05 AM QUIT TOBACCO USE 1-7 YEARS AGO [facility] [place] [facility] Oct 19, 2014 01:53 PM QUIT TOBACCO USE > 7 YEARS AGO [facility] [place] [facility] January 02, 2014 01:30 AM QUIT TOBACCO USE IN PAST YEAR [place] [facility] [place] [facility] Jun 18, 2013 09:00 AM CURRENT SMOKER 6 cigarettes qd [facility] [place] [facility] Jun 18, 2013 09:00 AM V1-PT DECLINES [facility]CO [facility] [place] [facility] Jun 18, 2013 09:00 AM V1-PT NOT INTERESTED IN QUIT TOBACCO USE [facility] [place] [facility] December 24, 2012 10:51 AM V1-PT DECLINES REF TO TOBACCO CESS PRGM [place] [facility] [place] [facility] December 24, 2012 10:51 AM V1-PT DECLINES TOBACCO CESSATION MEDS [facility] [place] [facility] December 24, 2012 10:51 AM V1-PT THINKING ABOUT QUIT [facility]ACCO [facility] [place] [facility] Jul 15, 2012 10:19 AM QUIT TOBACCO USE IN PAST [facility] [place] [facility] Jan 25, 2012 05:02 PM QUIT TOBACCO USE IN PAST YEAR [facility] Sep 28, 2011 10:09 AM CURRENT SMOKER 5 cigarettes a day [facility] [place] [facility] Jun 15, 2011 02:23 PM V1-PT DECLINES REF TO TOBACCO CESS PRGM [facility] [place] [facility] Jun 15, 2011 02:23 PM V1-PT READY TO QUIT TOBACCO [facility] [place] [facility] Apr 13, 2011 10:31 AM V1-PT DECLINES REF TO TOBACCO CESS PRGM [facility] [place] [facility] Apr 13, 2011 10:31 AM V1-PT RECEIVES TOBACCO CESS MEDS [facility] [place] [facility] Apr 13, 2011 10:31 AM V1-PT THINKING ABOUT QUIT TOBACCO USE [place] [facility] [place] [facility] Oct 16, 2010 08:52 AM QUIT TOBACCO USE IN PAST YEAR [facility] [place] [facility] May 12, 2010 02:08 PM V1-PT DECLINES REF TO TOBACCO CESS PR[facility] May 12, 2010 02:08 PM V1-PT READY TO QUIT TOBACCO USE [facility] May 12, 2010 12:45 PM CURRENT SMOKER 3 cigarettes a day [facility] Encounter Notes: All associated encounter notes This section contains the clinical notes associated to the Encounter. Date/Time Encounter Note(s) Provider Source Jul 13, 2024 02:16 PM CLERICAL NOTE: LOCAL TITLE: APPOINTMENT NO SHOW STANDARD TITLE: CLERICAL NOTE DATE OF NOTE: JUL 13, 2024@14:16 ENTRY DATE: JUL 13, 2024@14:17:02 AUTHOR: DEBBIE GIBBS EXP COSIGNER: URGENCY: STATUS: COMPLETED Patient Name: PEBBLES MEEK Patient SSN: [id number] Date and time of Appointment No show : 07/13/24 13:00 PATIENT PHONE - PHONE NUMBER [CELLULAR] - Patient's medical record was reviewed. Follow-up actions were determined and initiated: Please check/complete as applies: [X]Telephoned Directly [ ]Re-scheduled for next available appt [ ]Sent a N0-show letter ( must call for appointment) [ ]Other (Emergent/Overbook, etc.): Additional Comments: Called and spoke to [place]. She indicated she was feeling ill and could not stay on the [place] campus for a second appointment today. [place] confirmed the individual appointment next Saturday, July 20, 2024 at 9:30am F2F. No evidence of imminent risk. Wished her well and encouraged her to take care of her body. Future Clinic Visits 07/20/2024 09:30 CWM/NO/MHC/AUDREYSMARLEY 07/20/2024 13:00 CWM/NO/MHC/PSYLG 3 GRP 07/22/2024 09:00 NHM/PCMHI/STUDENT ASSISTANCE COUNSELOR-TELEPH 08/07/2024 08:00 CWM/NO/PACT 6 WH 08/07/2024 09:45 NHM DENTAL RDH 2 AM 10/02/2024 14:30 COM CARE-MAMMO FEM SCRN 10/06/2024 11:30 CWM/NO/PODIATRY A 11/25/2024 08:30 COM CARE-DENTAL SPECIAL 01/04/2025 11:00 NHM/OPT/VISUAL IMAGING 07/19/2025 10:00 NHM/OPTOMETRY/ELENA /jeana/ Debbie Gibbs, PhD Clinical Psychologist, [facility] Signed: 07/13/2024 14:18 DEBBIE GIBBS [facility]
--- OUTSIDE RECORDS SUMMARY | 2024-08-04 17:33 | XMS_ITS | Encounter Summary ---
Author Name [facility] [place] Organization [place] Address [address] [place] [address] Care Team Providers Care District Sales Coordinator Name Role Phone CADEN FELIZ Primary [...] PLAN I Aug 19, 2019 PLAN I [id number] MEEK,SABINE ICEL PATIENT [employer] OPTIONS MEDICARE SUPPLEMEN MARCIA PLANM Y Aug 19, 2019 PLANMY [id number] MEEK,GR ICEL PATIENT [employer] OPTIONS MEDICARE SUPPLEMEN MARCIA AARP MEDIC ARE SUPPL Aug 19, 2019 PLAN MY [id number] MEEK,SABINE ICEL PATIENT A[employer] INS MEDICARE SUPPLEMEN MARCIA PLANM Y Aug 19, 2019 PLANMY [id number] [phone] MEEK,GR ICEL PATIENT A[employer] MED SUPP MEDICARE SUPPLEMEN MARCIA Jul 19, 2010 PLANMY [id number] MEEK,GR ICEL PATIENT MEDICARE (WNR) MEDICARE () PART B Aug 19, 2008 PART B [id number] [phone] MEEK,GR ICEL PATIENT MEDICARE (WNR) MEDICARE () PART B Aug 19, 2008 PART B [id number] [phone] MEEK,GR ICEL PATIENT MEDICARE (WNR) MEDICARE () PART B Aug 19, 2008 PART B [id number] MEKE,GR ICEL PATIENT MEDICARE (WNR) MEDICARE () PART B Aug 19, 2008 PART B [id number] MEEK,GR ICEL PATIENT MEDICARE (WNR) MEDICARE () PART B Aug 19, 2008 PART B [id number] MEEK,GR ICEL PATIENT MEDICARE (WNR) MEDICARE () PART B Aug 19, 2008 PART B [id number] [phone] MEEK,GR ICEL PATIENT MEDICARE (WNR) MEDICARE () PART B Aug 19, 2008 PART B [id number] MEEK,GR ICEL PATIENT MEDICARE (WNR) MEDICARE () PART A December 18, 2003 PART A [id number] MEEK,GR ICEL PATIENT MEDICARE (WNR) MEDICARE () PART A December 18, 2003 PART A [id number] [phone] MEEK,GR ICEL PATIENT MEDICARE (WNR) MEDICARE () PART A December 18, 2003 PART A [id number] [phone] MEEK,GR ICEL PATIENT MEDICARE (WNR) MEDICARE () PART A December 18, 2003 PART A [id number] MEEK,GR ICEL PATIENT MEDICARE (WNR) MEDICARE () PART A December 18, 2003 PART A [id number] MEEK,GR ICEL PATIENT MEDICARE (WNR) MEDICARE () PART A December 18, 2003 PART A [id number] SABINE MEEK PATIENT MEDICARE (WNR) MEDICARE (M) PART A December 18, 2003 PART A [id number] SABINE MEEK PATIENT Selected Encounter This section includes the information on record at [place] for the Encounter. Date/Time Encounter Type Encounter Description Reason Pro vider Source Jul 20, 2024 08:57 AM Outpatient Encounter PRIMARY CARE/MEDICINE IHE Encounter Template Text not used by [place] Plan of Treatment: Future Appointments (+ 6 months) and Future Tests (+/- 45 days) The Plan of Treatment section includes future care activities for the [facility] [place] [facility] This section includes future appointments and future orders which are active, pending or scheduled. Future Appointments This section includes appointments that were scheduled to occur 6 months from the date of the Encounter, up to a maximum of 20 appointments. The data comes from all [place] treatment facilities. Appointment Date/Time Appointment Type Appointme nt Facility Name Jul 21, 2024 09:30 AM AMBULATORY - MEDICINE [place] [facility] [place] [facility] Jul 22, 2024 09:00 AM AMBULATORY - PSYCHIATRY [place] [facility] [place] [facility] Jul 27, 2024 01:00 PM AMBULATORY - PSYCHIATRY [place] [facility] [place] [facility] Aug 07, 2024 08:00 AM AMBULATORY - MEDICINE [place] [facility] [place] [facility] Aug 07, 2024 09:45 AM AMBULATORY - NONE [place] [facility] [place] [facility] Sep 23, 2024 09:00 AM AMBULATORY - PSYCHIATRY [place] [facility] [place] [facility] Oct 02, 2024 02:30 PM AMBULATORY - MEDICINE [place] C [facility] [place] [facility] Oct 06, 2024 11:30 AM AMBULATORY - MEDICINE [place] [facility] [place] [facility] Nov 25, 2024 08:30 AM AMBULATORY - MEDICINE [place] C [facility] [place] [facility] January 04, 2025 11:00 AM AMBULATORY - MEDICINE [facility] [place] [facility] Active, Pending, and Scheduled Orders [...] 01:51 PM Consult Order COMMUNITY CARE-ACUPUNCTURE Cons Training And Development Officer's Choice [facility] Jul 20, 2024 01:21 PM Consult Order COMMUNITY CARE-PULMONARY Cons Training And Development Officer's Choice [facility] Lab Results: +/- 30 days of the [...] Range Comment Jul 27, 2024 12:24 PM [facility] HEMOGLOBIN A1C PANEL [...] May 08, 2024 08:51 AM Reporting Lab: [address] [address] Performing Lab: [address] [address] HEMOGLOBIN A1C 6.0 H 4.0-5.6 Social History: [...] zepeda Apr 06, 2024 12:30 PM VA-TOBACCO QUIT 15 YRS OR MORE [facility] [...] YRS OR MORE [place] [facility] [place] [facility] Feb 08, 2023 10:00 AM VA-TOBACCO FORMER USER [place] [facility] [place] [facility] Feb 08, 2023 10:00 AM VA-TOBACCO QUIT 15 YRS OR MORE [place] [facility] [place] [facility] Mar 06, 2022 02:30 PM VA-TOBACCO FORMER USER [facility] [place] [facility] Mar 06, 2022 02:30 PM VA-TOBACCO QUIT 15 YRS OR MORE [place] [facility] [place] [facility] Apr 04, 2021 10:28 AM VA-TOBACCO NEVER USED [place] [facility] [place] [facility] May 03, 2020 02:00 PM VA-TOBACCO NEVER USED [place] [facility] [place] [facility] Feb 25, 2019 08:14 AM VA-TOBACCO FORMER USER [place] [facility] [place] [facility] Feb 25, 2019 08:14 AM VA-TOBACCO QUIT 5 TO < 15 YRS [place] [facility] [place] [facility] Apr 04, 2018 10:41 AM QUIT TOBACCO USE 1-7 YEARS AGO [facility] [place] [facility] Oct 28, 2017 10:18 AM QUIT TOBACCO USE 1-7 YEARS AGO [facility] [place] [facility] Jan 22, 2017 01:08 PM QUIT TOBACCO USE 1-7 YEARS AGO [facility] [place] [facility] Jul 18, 2016 01:34 PM QUIT TOBACCO USE 1-7 YEARS AGO [facility] [place] [facility] January 10, 2016 10:32 AM QUIT TOBACCO USE 1-7 YEARS AGO [facility] [place] [facility] Oct 13, 2015 11:05 AM QUIT TOBACCO USE 1-7 YEARS AGO [facility] [place] [facility] Oct 19, 2014 01:53 PM QUIT TOBACCO USE > 7 YEARS AGO [facility] [place] [facility] January 02, 2014 01:30 AM QUIT [facility]BACCO [facility] [place] [facility] Jun 18, 2013 09:00 AM CURRENT SMOKER 6 cigarettes qd [facility] [place] [facility] Jun 18, 2013 09:00 AM V1-PT DECLINES TOBACCO CESSATION MEDS [facility] [place] [facility] Jun 18, 2013 09:00 AM V1-PT NOT INTERESTED IN QUIT TOBACCO USE [facility] [place] [facility] December 24, 2012 10:51 AM V1-PT DECLINES REF TO TOBACCO CESS PRGM [place] [facility] [place] [facility] December 24, 2012 10:51 AM V1-PT DECLINES TOBACCO CESSATION MEDS [facility] [place] [facility] December 24, 2012 10:51 AM V1-PT THINKING ABOUT QUIT TOBACCO USE [facility] [place] [facility] Jul 15, 2012 10:19 AM QUIT TOBACCO USE IN PAST YEAR [facility] [place] [facility] Jan 25, 2012 05:02 PM QUIT TOBACCO USE IN PAST YEAR [facility] [place] [facility] Sep 28, 2011 10:09 AM CURRENT SMOKER 5 cigarettes a day [facility] [place] [facility] Jun 15, 2011 02:23 PM V1-PT DECLINES REF TO TOBACCO CESS PRGM [facility] [place] [facility] Jun 15, 2011 02:23 PM V1-PT READY TO QUIT TOBACCO USE [facility] Apr 13, 2011 10:31 AM V1-PT DECLINES REF TO TOBACCO CESS PRGM [facility] [place] [facility] Apr 13, 2011 10:31 AM V1-PT RECEIVES TOBACCO CESS MEDS OUT[facility]IDE [facility] [place] [facility] Apr 13, 2011 10:31 AM V1-PT THINKING ABOUT QUIT TOBACCO USE [facility] [place] [facility] Oct 16, 2010 08:52 AM QUIT TOBACCO USE IN PAST YEAR [facility] [place] [facility] May 12, 2010 02:08 PM V1-PT DECLINES REF TO TOBACCO CESS PRGM [facility] May 12, 2010 02:08 PM V1-PT READY TO QUIT TOBACCO USE [facility] May 12, 2010 12:45 PM CURRENT SMOKER 3 cigarettes a day [place] [facility] Encounter Notes: All associated encounter notes This section contains the clinical notes associated to the Encounter. Date/Time Encounter Note(s) Provider Source Jul 20, 2024 08:57 AM PRIMARY CARE NOTE: LOCAL TITLE: WALK-IN NOTE PRIMARY CARE (T) STANDARD TITLE: PRIMARY CARE NOTE DATE OF NOTE: JUL 20, 2024@08:57 ENTRY DATE: JUL 20, 2024@08:58:02 AUTHOR: CHAI GOSS EXP COSIGNER: URGENCY: STATUS: COMPLETED WALK-IN NOTE PRIMARY CARE (T) Has ADDENDA <====Click to Start Advanced Medical Support Morrice presents to the Primary Care clinic with the following request: [ X ]Medication Renewal/Refill LORAZEPAM TAB 0.5MG [ ]Consultation with Team RN [ ]Symptoms [ ]Other The states they are: [ ]Waiting [ X ]Not Waiting No Walk in visit scheduled with PACT Nurse [ X ] At this encounter the 's demographics were verified. [ X ] At this encounter the Morrice's Insurance information was verified. [ X ] At this encounter the below scheduled visits for the Morrice were discussed and appointment reminder card was offered. Future appointments: 07/20/2024 09:30 CWM/NO/MHC/[place] 07/20/2024 13:00 CWM/NO/MHC/PSYLG 3 GRP 07/22/2024 09:00 NHM/PCMHI/YARD CLERK-TELEPH 08/07/2024 08:00 CWM/NO/PACT 6 WH 08/07/2024 09:45 NHM DENTAL RDH 2 AM 10/02/2024 14:30 COM CARE-MAMMO FEM SCRN 10/06/2024 11:30 CWM/NO/PODIATRY A 11/25/2024 08:30 COM CARE-DENTAL SPECIAL 01/04/2025 11:00 NHM/OPT/VISUAL IMAGING 07/19/2025 10:00 NHM/OPTOMETRY/RAMONEI /jeana/ CHAI HAMMOND Signed: 07/20/2024 08:58 Receipt Acknowledged By: 07/20/2024 12:12 /jeana/ COLT ARNOLD PSYCHIATRIST 07/20/2024 11:50 /es/ ZORAIDA PERES REGISTERED NURSE 07/20/2024 09:28 /jeana/ Maricarmen De La Garza RN Primary Care Staff Nurse 07/20/2024 ADDENDUM STATUS: COMPLETED defer to ordering provider /jeana/ ZORAIDA PERES REGISTERED NURSE Signed: 07/20/2024 11:50 07/20/2024 ADDENDUM STATUS: COMPLETED Vet's psychiatrc care was transferred to PCP in December 2023, see consult from 01/09: 12/18/2023 ADDENDUM STATUS: COMPLETED Note reviewed and [...] CADEN FELIZ M.D. PHYSICIAN Signed: 12/18/2023 12:31 Will alert PCP for refill. thanks~ /jeana/ COLT ARNOLD PSYCHIATRIST Signed: 07/20/2024 12:13 Receipt Acknowledged By: * AWAITING SIGNATURE * CADEN FELIZ PATRICIA JEAN [facility]
--- OUTSIDE RECORDS SUMMARY | 2024-08-04 17:34 | XMS_ITS | Encounter Summary ---
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 Name Role Phone CADEN FELIZ Primary Care [...] PLAN I Aug 19, 2019 PLAN I [id number] [phone] MEEK,GR ICEL PATIENT [employer] OPTIONS MEDICARE SUPPLEMEN MARCIA PLANM Y Aug 19, 2019 PLANMY [id number] MEEK,GR ICEL PATIENT [employer] OPTIONS MEDICARE SUPPLEMEN MARCIA AARP MEDIC ARE SUPPL Aug 19, 2019 PLAN MY [id number] MEEK,GR ICEL PATIENT AARP INS MEDICARE SUPPLEMEN MARCIA PLANM Y Aug 19, 2019 PLANMY [id number] MEEK,GR ICEL PATIENT AARP MED SUPP MEDICARE SUPPLEMEN MARCIA Jul 19, 2010 [facility] [id number] MEEK,GR ICEL PATIENT MEDICARE (WNR) MEDICARE () PART B Aug 19, 2008 PART B [id number] [phone] MEEK,GR ICEL PATIENT MEDICARE (WNR) MEDICARE () PART B Aug 19, 2008 PART B [id number] [phone] MEEK,GR ICEL PATIENT MEDICARE (WNR) MEDICARE () PART B Aug 19, 2008 PART B [id number] [phone] MEEK,GR ICEL PATIENT MEDICARE (WNR) MEDICARE () PART B Aug 19, 2008 PART B [id number] [phone] MEEK,GR ICEL PATIENT MEDICARE (WNR) MEDICARE () PART B Aug 19, 2008 PART B [id number] [phone] MEEK,GR ICEL PATIENT MEDICARE (WNR) MEDICARE () PART B Aug 19, 2008 PART B [id number] MEEK,GR ICEL PATIENT MEDICARE (WNR) MEDICARE () PART B Aug 19, 2008 PART B [id number] MEEK,GR ICEL PATIENT MEDICARE (WNR) MEDICARE () PART A December 18, 2003 PART A [id number] [phone] MEEK,GR ICEL PATIENT MEDICARE (WNR) MEDICARE () PART A December 18, 2003 PART A [id number] [phone] MEEK,GR ICEL PATIENT MEDICARE (WNR) MEDICARE () PART A December 18, 2003 PART A [id number] [phone] MEEK,GR ICEL PATIENT MEDICARE (WNR) MEDICARE () PART A December 18, 2003 PART A [id number] MEEK,GR ICEL PATIENT MEDICARE (WNR) MEDICARE () PART A December 18, 2003 PART A [id number] MEEK,GR ICEL PATIENT MEDICARE (WNR) MEDICARE (M) PART A December 18, 2003 PART A [id number] SABINE MEEK ICEL PATIENT MEDICARE (WNR) MEDICARE (M) PART A December 18, 2003 PART A [id number] SABINE MEEK PATIENT Selected Encounter This section includes the information on record at [place] for the Encounter. Date/Time Encounter Type Encounter Description Reason Provider Source Jul 22, 2024 09:00 AM PRO PHONE CALL 21-30 MIN TELEPHONE ICD-10-CM F41.9 Anxiety disorder, unspecified LION DAMON Darshan Encounter Template Text not used by [place] Assessments - Encounter Diagnoses This section includes the primary and secondary diagnoses documented for the Encounter. Date/Time Primary/Secondary Diagnosis Diagnosis Name Provider Source Jul 22, 2024 09:00 AM PRIMARY Anxiety disorder, unspecified TRINALION VICK [place] [facility] [place] [facility] Jul 22, 2024 09:00 AM SECONDARY Other recurrent depressive disorders TRINALION VICK [place] [facility] [place] [facility] Jul 22, 2024 09:00 AM SECONDARY Post-traumatic stress disorder, chronic LION DAMON [place] [facility] [place] [facility] Plan of Treatment: Future Appointments (+ 6 months) and Future Tests (+/- 45 days) The Plan of Treatment section includes future care activities for the patient from all [place] treatmentfacilities. This section includes future appointments and future orders which are active, pending or scheduled. Future Appointments This section includes appointments that were scheduled to occur 6 months from the date of the Encounter, up to a maximum of 20 appointments. The data comes from all [place] treatment facilities. Appointment Date/Time Appointment Type Appointme nt Facility Name Jul 27, 2024 01:00 PM AMBULATORY - PSYCHIATRY [place] [facility] [place] [facility] Aug 07, 2024 08:00 AM AMBULATORY - MEDICINE [place] [facility] [place] [facility] Aug 07, 2024 09:45 AM AMBULATORY - NONE [place] [facility] [place] [facility] Sep 23, 2024 09:00 AM AMBULATORY - PSYCHIATRY [place] [facility] [place] [facility] Oct 02, 2024 02:30 PM AMBULATORY - MEDICINE [place] [facility] [place] [facility] Oct 06, 2024 11:30 AM [facility] Nov 25, 2024 08:30 AM [facility] January 04, 2025 11:00 AM AM[facility]UL[facility] - [facility]ICINE [facility] Active, Pending, and Scheduled Orders [...] 01:51 PM Consult Order COMMUNITY CARE-ACUPUNCTURE Cons Health Facilities Surveyor's Choice [facility] Jul 20, 2024 01:21 PM Consult Order COMMUNITY CARE-PULMONARY Cons Health Facilities [facility] Lab Results: +/- 30 days of the encounter This section includes the Chemistry and Hematology Lab Results on record with [place] for the patient. Radiology Reports and Pathology Reports are provided separately, in subsequent sections. Lab Results This section contains the Chemistry/Hematology Results that were resulted 30 days before or 30 daysafter the date of the Encounter. Date/Time Source Result Type Result - Unit Interpretation Reference Range Comment Jul 27, 2024 12:24 PM [facility] HEMOGLOBIN A1C PANEL Specimen Type: [...] May 08, 2024 08:51 AM Reporting Lab: [address] [id number] Performing Lab: [address] [id number] HEMOGLOBIN A1C 6.0 H 4.0-5.6 Social History: [...] Date/Time Current Smoking Status Comment [facility] Apr 06, 2024 12:30 PM VA-TOBACCO FORMER USER [place] [facility] [place] [facility] Tobacco Use History This section includes a history of the smoking, or tobacco-related health factors, that were collected on or before the date of the Encounter. The data comes from the [place] facility where the Encounter took place. Date/Time Smoking Status/Tobac co Use Comment [facility] Apr 06, 2024 12:30 PM VA-TOBACCO QUIT 15 YRS OR MORE [facility] [place] [facility] Feb 08, 2023 10:00 AM VA-TOBACCO FORMER USER [facility] [place] [facility] Feb 08, 2023 10:00 AM VA-TOBACCO QUIT 15 YRS OR MORE [facility] [place] [facility] Mar 06, 2022 02:30 PM VA-TOBACCO FORMER USER [facility] [place] [facility] Mar 06, 2022 02:30 PM VA-TOBACCO QUIT 15 YRS OR MORE [facility] [place] [facility] Apr 04, 2021 10:28 AM VA-TOBACCO NEVER USED [facility] [place] [facility] May 03, 2020 02:00 PM VA-TOBACCO NEVER USED [facility] [place] [facility] Feb 25, 2019 08:14 AM VA-TOBACCO FORMER USER [facility] [place] [facility] Feb 25, 2019 08:14 AM VA-TOBACCO QUIT 5 TO < 15 YRS [facility] [place] [facility] Apr 04, 2018 10:41 AM QUIT TOBACCO USE 1-7 YEARS AGO [facility] [place] [facility] Oct 28, 2017 10:18 AM QUIT TOBACCO USE 1-7 YEARS AGO [facility] [place] [facility] Jan 22, 2017 01:08 PM QUIT TOBACCO USE 1-7 YEARS AGO [facility] [place] [facility] Jul 18, 2016 01:34 PM QUIT TOBACCO USE 1[facility] [place] [facility] January 10, 2016 10:32 AM QUIT TOBACCO USE 1-7 YEARS AGO [facility] [place] [facility] Oct 13, 2015 11:05 AM QUIT TOBACCO USE 1-7 YEARS AGO [facility] [place] [facility] Oct 19, 2014 01:53 PM QUIT TOBACCO USE > 7 YEARS AGO [facility] [place] [facility] January 02, 2014 01:30 AM QUIT TOBACCO USE IN PAST YEAR [facility] Jun 18, 2013 09:00 AM CURRENT SMOKER 6 cigarettes qd [facility] Jun 18, 2013 09:00 AM V1-PT DECLINES TOBACCO CESSATION MEDS [facility] Jun 18, 2013 09:00 AM V1-PT NOT INTERESTED IN QUIT TOBACCO USE [facility] December 24, 2012 10:51 AM V1-PT DECLINES REF TO TOBACCO CESS [facility] December 24, 2012 10:51 AM V1-PT DECLINES TOBACCO CESSATION MEDS [facility] December 24, 2012 10:51 AM V1-PT THINKING ABOUT QUIT TOBACCO USE [facility] Jul 15, 2012 10:19 AM QUIT TOBACCO USE IN PAST YEAR [facility] Jan 25, 2012 05:02 PM QUIT TOBACCO USE IN PAST YEAR [facility] Sep 28, 2011 10:09 AM CURRENT SMOKER 5 cigarettes a day [facility] [place] [place] [facility] Jun 15, 2011 02:23 PM V1-PT DECLINES REF TO TOBACCO CESS PRGM [facility] Jun 15, 2011 02:23 PM V1-PT READY TO QUIT TOBACCO USE [facility] [place] [place] [facility] Apr 13, 2011 10:31 AM V1-PT DECLINES REF TO TOBACCO CESS PRGM [facility] Apr 13, 2011 10:31 AM V1-PT RECEIVES TOBACCO CESS MEDS OUTSIDE [facility] Apr 13, 2011 10:31 AM V1-PT [...] SMOKER 3 cigarettes a day [facility] Encounter Notes: All associated encounter notes This section contains the clinical notes associated to the Encounter. Date/Time Encounter Note(s) Provider Source Jul 22, 2024 09:14 AM MENTAL HEALTH OUTPATIENT NOTE: LOCAL TITLE: PRIMARY MENTAL HEALTH OUTPATIENT FOLLOW UP NOTE STANDARD TITLE: MENTAL HEALTH OUTPATIENT NOTE DATE OF NOTE: JUL 22, 2024@09:14:01 ENTRY DATE: JUL 22, 2024@09:17:19 AUTHOR: LION DAMON EXP COSIGNER: URGENCY: STATUS: COMPLETED PRIMARY MENTAL HEALTH OUTPATIENT FOLLOW UP NOTE Has ADDENDA PSYCHOPHARMACOLOGY The patient reports being prescribed a psychotropic medication. Side Effects and Adherence: In the last week, the patient reports the following when asked have you taken the medication(s) as prescribed: taking the medication as prescribed. The patient does not report symptoms suggestive of adverse effects of medication. Roller Coaster Designer called for a follow-up PHQ-9, AWA-7, and assessment as is prescribed lorazepam, sertraline and trazodone for diagnoses of chronic anxiety, chronic depression and PTSD. [place] was called as a part [facility]. Shared decision making for writer editor's involvement happened at initial appointment. 's identity verified through name and . recently had measurement based care done yesterday at an appointment and repeating would be redundant. [facility] CoCM Protocol: [X ] Depression [ X] Anxiety [ ] At-Risk Alcohol Use [ ] Referral Management [ ] Other: PROBLEM: Current medical diagnoses, concerns: [place] denied new acute medical concerns not already being addressed. Medication Concerns: denied side effects to trazodone, sertraline and lorazepam. reported she needed renewal of her lorazepam Mental and Sleep Status Changes since last contact: SLEEP: reported she wakes up panicked due to anxiety NIGHTMARES: reported to have on occasion APPETITE: denied concerns HYGIENE: denied concerns ENERGY/MOTIVATION: reported due to medical concerns she is tired and can get tired MOOD: doing better PTSD: reported symptoms are manageable ANXIETY: controlled well with medication, takes lorazepam when she gets panicked PANIC ATTACKS: more frequent lately, waking up in the middle of the night panicked DEPRESSION: well controlled with medication, able to manage symptoms ANGER/IRRITABILITY/AGGRESS ION: reported to be well controlled, able to manage symptoms WILBERT/HYPOMANIA: none observed or reported PSYCHOTIC FEATURES: none observed or reported PAIN: denied new acute pain concerns SUICIDE: denied current active suicidal ideation/intent/plan Effect of psychiatric symptoms on functioning: reported to be functioning well for the most part Behavioral Activation/Pleasant Events Scheduling/ social interactions/exercise: denied concerns, Other Treatment(Psychotherapy/co unselling, etc.): is wanting to engage in psychotherapy, will alert [facility] psychologist to note for a follow up appointment Suicidal Ideation: denied current active suicidal ideation/intent/plan. Progress towards goals/ review of action plan: using relaxation techniques well New developed action plan (if applicable) none at this time Education Provided: Roller Coaster Designer reinforced education previously provided about medication and reinforced psychoeducation previously provided. [place] and writer editor discussed the discontinuation of [facility] care management services (watchful waiting or care management). [place] did not wish to discontinue at this time. [place]'s preference honored. deferred setting a SMART goal or setting a formal goal. 's preference honored in an effort to be centric and to engage in shared decision making. Roller Coaster Designer corresponded with PCP via TEAMS reminding her of need for renewal of lorazepam. [place] was offered an appointment within program protocols and has the right to choose a different appointment interval. 's preference honored in an effort to be centric and to engage in shared decision making. [place] knows how to access emergency services should the need arise and is aware of the crisis numbers [phone] and [phone] and to press 1 for Veterans PLAN: 1.Follow through with [facility] program as indicated: 09/23 at 0900 via telephone 2.Patient's stated action plan/stated goal: will continue to take medication as prescribed Summary of next steps/plan was provided to the [place]. Outcome and recommendations will be discussed with the PCP and other relevant PACT team members, as needed. Consults were reviewed and no needs were identified Time Spent: in visit/on telephone 15 minutes chart review and care coordination 10 minutes post-visit documentation 15 minutes /mega PORTER RN [facility] RETAIL ASSET PROTECTION SPECIALIST Signed: 07/23/2024 08:29 07/23/2024 ADDENDUM STATUS: COMPLETED Alcohol Use Screen (AUDIT-C): Alcohol Screen: SCREEN FOR ALCOHOL (AUDIT-C) An alcohol screening test (AUDIT-C) was negative (score=0). 1. How often did you have a drink containing alcohol in the past year? Consider a drink to be a 12 ounce can or bottle of regular beer, 8 ounces of malt liquor, a 5 ounce glass of table wine, or a 1.5 ounce shot of liquor (like scotch, gin, or vodka). Never 2. How many drinks containing alcohol did you have on a typical day when you were drinking in the past year? Response not required due to responses to other questions. 3. How often did you have 4 or more drinks on one occasion in the past year? Response not required due to responses to other questions. /mega PORTER RN [facility] RETAIL ASSET PROTECTION SPECIALIST Signed: 07/23/2024 08:31 [facility]
--- OUTSIDE RECORDS SUMMARY | 2024-08-04 17:34 | XMS_ITS | Encounter Summary ---
Author Name [facility] [place] [facility] [place] [place] Address [address] [place] [address] Care Team Providers Care Riprap Man Name Role Phone CADEN DHALIWAL Primary Care [...] PLAN I Aug 19, 2019 PLAN I [id number] MEEK,SABINE ICEL PATIENT [employer] OPTIONS MEDICARE SUPPLEMEN MARCIA PLANM Y Aug 19, 2019 PLANMY [id number] MEEK,GR ICEL PATIENT [employer] OPT[employer] MEDICARE SUPPLEMEN MARCIA A[employer] MEDIC ARE SUPPL Aug 19, 2019 PLAN MY [id number] MEEK,SABINE ICEL PATIENT [employer] INS MEDICARE SUPPLEMEN MARCIA PLANM Y Aug 19, 2019 PLANMY [id number] [phone] MEEK,GR ICEL PATIENT A[employer] MED SUPP MEDICARE SUPPLEMEN MARCIA Jul 19, 2010 PLANMY [id number] [phone] MEEK,GR ICEL PATIENT MEDICARE (WNR) MEDICARE () PART B Aug 19, 2008 PART B [id number] MEEK,GR ICEL PATIENT MEDICARE (WNR) MEDICARE () PART B Aug 19, 2008 PART B [id number] MEEK,GR ICEL PATIENT MEDICARE (WNR) MEDICARE () PART B Aug 19, 2008 PART B [id number] MEEK,GR ICEL PATIENT MEDICARE (WNR) MEDICARE () PART B Aug 19, 2008 PART B [id number] MEEK,GR ICEL PATIENT MEDICARE (WNR) MEDICARE () PART B Aug 19, 2008 PART B [id number] [phone] MEEK,GR ICEL PATIENT MEDICARE (WNR) MEDICARE () PART B Aug 19, 2008 PART B [id number] [phone] MEEK,GR ICEL PATIENT MEDICARE (WNR) MEDICARE () PART B Aug 19, 2008 PART B [id number] MEEK,GR ICEL PATIENT MEDICARE (WNR) MEDICARE () PART A December 18, 2003 PART A [id number] MEEK,GR ICEL PATIENT MEDICARE (WNR) MEDICARE () PART A December 18, 2003 PART A [id number] MEEK,GR ICEL PATIENT MEDICARE (WNR) MEDICARE () PART A December 18, 2003 PART A [id number] MEEK,GR ICEL PATIENT MEDICARE (WNR) MEDICARE () PART A December 18, 2003 PART A [id number] [phone] MEEK,GR ICEL PATIENT MEDICARE (WNR) MEDICARE () PART A December 18, 2003 PART A [id number] MEEK,GR ICEL PATIENT MEDICARE (WNR) MEDICARE () PART A December 18, 2003 PART A [id number] SABINE MEEK PATIENT MEDICARE (WNR) MEDICARE (M) PART A December 18, 2003 PART A [id number] SABINE MEEK PATIENT Selected Encounter This section includes the information on record at [place] for the Encounter. Date/Time Encounter Type Encounter Description Reason Pro vider Source Jul 24, 2024 01:30 PM Outpatient Encounter PRIMARY CARE/MEDICINE IHE Encounter Template Text not used by [place] Plan of Treatment: Future Appointments (+ 6 months) and Future Tests (+/- 45 days) The Plan of Treatment section includes future care activities for the [facility] [place] [facility] This section includes future appointments and future orders which are active, pending or scheduled. Future Appointments This section includes appointments that were scheduled to occur 6 months from the date of the Encounter, up to a maximum of 20 appointments. The data comes from all [facility]. Appointment Date/Time Appointment Type Appointme nt Facility Name Jul 27, 2024 01:00 PM AMBULATORY - PSYCHIATRY [facility] [place] [facility] Aug 07, 2024 08:00 AM AMBULATORY - MEDICINE [facility] [place] [facility] Aug 07, 2024 09:45 AM AMBULATORY - NONE [facility] [place] [facility] Sep 23, 2024 09:00 AM AMBULATORY - PSYCHIATRY [facility] [place] [facility] Oct 02, 2024 02:30 PM AMBULATORY - MEDICINE [facility] [place] [facility] Oct 06, 2024 11:30 AM AMBULATORY - MEDICINE [facility] [place] [facility] Nov 25, 2024 08:30 AM AMBULATORY - MEDICINE [facility] [place] [facility] January 04, 2025 11:00 AM AMBULATORY - MEDICINE [facility] [place] [facility] Active, Pending, and Scheduled Orders This section includes a listing of several types of active, pending, and scheduled orders, including clinic medications orders, diagnostic test orders, procedure orders and consult orders; where the start date of the order is 45 days before the date of the Encounter or 45 days after the date of theEncounter. The data comes from all [facility]. Test Date/Time Test Type Test Details Facility Name Jun 26, 2024 01:51 PM Consult Order COMMUNITY CARE-ACUPUNCTURE Cons Tread [facility] Jul 20, 2024 01:21 PM Consult Order COMMUNITY CARE-PULMONARY Cons Tread [facility] Lab Results: +/- 30 days [...] Range Comment Jul 27, 2024 12:24 PM [facility] HEMOGLOBIN A1C PANEL Specimen Type: BLOOD Comment: Values obtained from A1C measurements can vary. For atypical A1C assays, a reported value of 7.0 could actually be between 6.72 and 7.28 if measured by a reference method. A reported value of 9.0 could actually be between 8.73 and 9.27. Ref: http://www.ngs p.org/CAPdata. asp Ordering Provider: CADEN DHALIWAL Report Released Date/Time: May 08, 2024 08:51 AM Reporting Lab: [facility] [address] [id number] Performing Lab: [address] [id number] HEMOGLOBIN A1C 6.0 H 4.0-5.6 Social History: [...] place. Date/Time Current Smoking Status Comment Rosamaria williamsony Apr 06, 2024 12:30 PM VA-TOBACCO QUIT 15 YRS OR MORE [facility] Tobacco Use History This section includes a history of the smoking, or tobacco-related health factors, that were collected on or before the date of the Encounter. The data comes from the [place] facility where the Encounter took place. Date/Time Smoking Status/Tobac co Use Comment Facility Apr 06, 2024 12:30 PM VA-TOBACCO QUIT 15 YRS OR MORE [facility] [place] [facility] Feb 08, 2023 10:00 AM VA-TOBACCO FORMER USER [facility] [place] [facility] Feb 08, 2023 10:00 AM VA-TOBACCO QUIT 15 YRS OR MORE [facility] [place] [facility] Mar 06, 2022 02:30 PM VA-TOBACCO FORMER USER [facility] [place] [facility] Mar 06, 2022 02:30 PM VA-TOBACCO QUIT 15 YRS OR MORE [facility] [place] [facility] Apr 04, 2021 10:28 AM VA-TOBACCO NEVER USED [facility] [place] [facility] May 03, 2020 02:00 PM VA-TOBACCO NEVER USED [facility] [place] [facility] Feb 25, 2019 08:14 AM VA-TOBACCO FORMER USER [facility] [place] [facility] Feb 25, 2019 08:14 AM VA-TOBACCO QUIT 5 TO < 15 YRS [facility] [place] [facility] Apr 04, 2018 10:41 AM QUIT TOBACCO USE 1-7 YEARS AGO [facility] [place] [facility] Oct 28, 2017 10:18 AM QUIT TOBACCO USE 1-7 YEARS AGO [facility] [place] [facility] Jan 22, 2017 01:08 PM QUIT TOBACCO USE 1-7 YEARS AGO [facility] [place] [facility] Jul 18, 2016 01:34 PM QUIT TOBACCO USE 1-7 YEARS AGO [facility] [place] [facility] January 10, 2016 10:32 AM QUIT TOBACCO USE 1-7 YEARS AGO [facility] [place] [facility] Oct 13, 2015 11:05 AM QUIT TOBACCO USE 1-7 YEARS AGO [facility] [place] [facility] Oct 19, 2014 01:53 PM QUIT TOBACCO USE > 7 YEARS AGO [facility] [place] [facility] January 02, 2014 01:30 AM QUIT TOBACCO USE IN PAST YEAR [facility] [place] [facility] Jun 18, 2013 09:00 AM CURRENT SMOKER 6 cigarettes qd [facility] [place] [facility] Jun 18, 2013 09:00 AM V1-PT DECLINES [facility]BACCO [facility]ESSATION [facility] [place] [facility] Jun 18, 2013 09:00 AM V1-PT NOT INTERESTED IN QUIT TOBACCO USE [facility] [place] [facility] December 24, 2012 10:51 AM V1-PT DECLINES REF TO TOBACCO CESS PRGM [facility] [place] [facility] December 24, 2012 10:51 AM V1-PT DECLINES TOBACCO CESSATION MEDS [facility] [place] [facility] December 24, 2012 10:51 AM V1-PT THINKING ABOUT QUIT TOBACCO USE [facility] Jul 15, 2012 10:19 AM QUIT TOBACCO [facility] [place] [facility] Jan 25, 2012 05:02 PM QUIT TOBACCO USE IN PAST YEAR [facility] Sep 28, 2011 10:09 AM CURRENT SMOKER 5 cigarettes a day [facility] [place] [facility] Jun 15, 2011 02:23 PM V1-PT DECLINES REF TO TOBACCO CESS PRGM [facility] Jun 15, 2011 02:23 PM V1-PT READY TO QUIT TOBACCO USE [facility] [place] [facility] Apr 13, 2011 10:31 AM V1-PT DECLINES REF TO TOBACCO CESS PRGM [facility] Apr 13, 2011 10:31 AM V1-PT RECEIVES TOBACCO CESS MEDS OUTSIDE [facility] Apr 13, 2011 10:31 AM V1-PT THINKING ABOUT QUIT TOBACCO USE [facility] [place] [facility] Oct 16, 2010 08:52 AM QUIT TOBACCO USE IN PAST YEAR [facility] [place] [facility] May 12, 2010 02:08 PM V1-PT DECLINES REF TO TOBACCO CESS PRGM [facility] May 12, 2010 02:08 PM V1-PT READY TO QUIT TOBACCO USE [facility] [place] [facility] May 12, 2010 12:45 PM CURRENT SMOKER 3 cigarettes a [facility] Encounter Notes: All associated encounter notes This section contains the clinical notes associated to the Encounter. Date/Time Encounter Note(s) Provider Source Jul 24, 2024 01:31 PM ACCOUNTING OF DISC LOSURES NOTE: LOCAL TITLE: STATE PRESCRIPTION DRUG MONITORING PROGRAM STANDARD TITLE: ACCOUNTING OF DISCLOSURES NOTE DATE OF NOTE: JUL 24, 2024@13:31:55 ENTRY DATE: JUL 24, 2024@13:31:55 AUTHOR: CADEN DHALIWAL EXP COSIGNER: URGENCY: STATUS: COMPLETED This PDMP query was submitted by Caden Dhaliwal MD. The clinical justification for this PDMP query is to review controlled substances prescribed outside of the [facility], and any additional information that may become available, as an important component of standard clinical care, and in accordance with [facility] policy. Patient information was shared with the PDMP [place]. No prescription(s) for controlled substances outside the [facility] were found in the last 90 days. refill of lorazepam /jeana/ CADEN DHALIWAL M.D. PHYSICIAN Signed: 07/24/2024 13:32 CADEN DHALIWAL [facility]
--- OUTSIDE RECORDS SUMMARY | 2024-08-04 17:34 | XMS_ITS | Encounter Summary ---
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 Name Role Phone CADEN FELIZ Primary Care [...] PLAN I Aug 19, 2019 PLAN I [id number] [phone] MEEK,GR ICEL PATIENT [employer] OPTIONS MEDICARE SUPPLEMEN MARCIA PLANM Y Aug 19, 2019 PLAN [id number] MEEK,GR ICEL PATIENT [employer] OPTIONS MEDICARE SUPPLEMEN MARCIA [employer] MEDIC ARE SUPPL Aug 19, 2019 PLAN [id number] MEEK,GR ICEL PATIENT [employer] INS MEDICARE SUPPLEMEN MARCIA PLANM Y Aug 19, 2019 PLAN [id number] MEEK,GR ICEL PATIENT [employer] MED SUPP MEDICARE SUPPLEMEN MARCIA Jul 19, 2010 PLAN [id number] [phone] MEEK,GR ICEL PATIENT MEDICARE (WNR) MEDICARE (M) PART B Aug 19, 2008 PART B [id number] MEEK,GR ICEL PATIENT MEDICARE (WNR) MEDICARE () PART B Aug 19, 2008 PART B [id number] MEEK,GR ICEL PATIENT MEDICARE (WNR) MEDICARE () PART B Aug 19, 2008 PART B [id number] MEEK,GR ICEL PATIENT MEDICARE (WNR) MEDICARE () PART B Aug 19, 2008 PART B [id number] MEEK,GR ICEL PATIENT MEDICARE (WNR) MEDICARE () PART B Aug 19, 2008 PART B [id number] [phone] MEEK,GR ICEL PATIENT MEDICARE (WNR) MEDICARE () PART B Aug 19, 2008 PART B [id number] MEEK,GR ICEL PATIENT MEDICARE (WNR) MEDICARE () PART B Aug 19, 2008 PART B [id number] MEEK,GR ICEL PATIENT MEDICARE (WNR) MEDICARE () PART A December 18, 2003 PART A [id number] MEEK,GR ICEL PATIENT MEDICARE (WNR) MEDICARE () PART A December 18, 2003 PART A [id number] [phone] MEEK,GR ICEL PATIENT MEDICARE (WNR) MEDICARE () PART A December 18, 2003 PART A [id number] MEEK,GR ICEL PATIENT MEDICARE (WNR) MEDICARE () PART A December 18, 2003 PART A [id number] MEEK,GR ICEL PATIENT MEDICARE (WNR) MEDICARE () PART A December 18, 2003 PART A [id number] [phone] MEEK,GR ICEL PATIENT MEDICARE (WNR) MEDICARE () PART A December 18, 2003 PART A [id number] MEEK,GR ICEL PATIENT MEDICARE (WNR) MEDICARE (M) PART A December 18, 2003 PART A [id number] SABINE MEEK ICEJacky PATIENT Selected Encounter This section includes the information on record at [facility] for the En[facility]. Date/Time Encounter Type Encounter Description Reason Pro vider Source IHE Encounter Template Text not used by [facility]
--- OUTSIDE RECORDS SUMMARY | 2024-08-04 17:34 | XMS_ITS | Encounter Summary ---
Author Name [facility] [place] [facility] [place] Address [address] [place] [address] Care Team Providers Care Wine Manager Name Role Phone CADEN FELIZ Primary [...] PLAN I Aug 19, 2019 PLAN I [id number] [phone] MEEK,GR ICEL PATIENT [employer] OPTIONS MEDICARE SUPPLEMEN MARCIA PLANM Y Aug 19, 2019 PLANMY [id number] MEEK,GR ICEL PATIENT [employer] OPTIONS MEDICARE SUPPLEMEN MARCIA AARP MEDIC ARE SUPPL Aug 19, 2019 PLAN MY [id number] MEEK,GR ICEL PATIENT A[employer] INS MEDICARE SUPPLEMEN MARCIA PLANM Y Aug 19, 2019 PLANMY [id number] MEEK,GR ICEL PATIENT AARP MED SUPP MEDICARE SUPPLEMEN MARCIA Jul 19, 2010 PLANMY [id number] MEEK,GR ICEL PATIENT MEDICARE (WNR) MEDICARE () PART B Aug 19, 2008 PART B [id number] MEEK,GR ICEL PATIENT MEDICARE (WNR) MEDICARE () PART B Aug 19, 2008 PART B [id number] MEEK,GR ICEL PATIENT MEDICARE (WNR) MEDICARE () PART B Aug 19, 2008 PART B [id number] [phone] MEEK,GR ICEL PATIENT MEDICARE (WNR) MEDICARE () PART B Aug 19, 2008 PART B [id number] MEEK,GR ICEL PATIENT MEDICARE (WNR) MEDICARE () PART B Aug 19, 2008 PART B [id number] MEEK,GR ICEL PATIENT MEDICARE (WNR) MEDICARE () PART B Aug 19, 2008 PART B [id number] MEEK,GR ICEL PATIENT MEDICARE (WNR) MEDICARE () PART B Aug 19, 2008 PART B [id number] MEEK,GR ICEL PATIENT MEDICARE (WNR) MEDICARE () PART A December 18, 2003 PART A [id number] MEEK,GR ICEL PATIENT MEDICARE (WNR) MEDICARE () PART A December 18, 2003 PART A [id number] MEEK,GR ICEL PATIENT MEDICARE (WNR) MEDICARE () PART A December 18, 2003 PART A [id number] [phone] MEEK,GR ICEL PATIENT MEDICARE (WNR) MEDICARE () PART A December 18, 2003 PART A [id number] [phone] MEEK,GR ICEL PATIENT MEDICARE (WNR) MEDICARE () PART A December 18, 2003 PART A [id number] MEEK,GR ICEL PATIENT MEDICARE (WNR) MEDICARE () PART A December 18, 2003 PART A [id number] SABINE MEEK PATIENT MEDICARE (WNR) MEDICARE (M) PART A December 18, 2003 PART A [id number] [phone] SABINE MEEK PATIENT Selected Encounter This section includes the information on record at [place] for the Encounter. Date/Time Encounter Type Encounter Description Reason Provider Source Jul 20, 2024 09:30 AM PSYTX W PT 45 MINUTES [facility] - IND ICD-10-CM F43.12 Post-traumatic stress disorder, chronic MARY GIBBS IHDarshan Encounter Template Text not used by [place] Assessments - Encounter Diagnoses This section includes the primary and secondary diagnoses documented for the Encounter. Date/Time Primary/Secondary Diagnosis Diagnosis Name Provider Source Jul 20, 2024 02:41 PM PRIMARY Post-traumatic stress disorder, chronic MARY GIBBS [place] [facility] [place] [facility] Plan of Treatment: Future Appointments (+ 6 months) and Future Tests (+/- 45 days) The Plan of Treatment section includes future care activities for the patient [facility] [place] [facility] This section includes future appointments [...] 21, 2024 09:30 AM AMBULATORY - MEDICINE [place] C [facility] [place] [facility] Jul 22, 2024 09:00 AM AMBULATORY - PSYCHIATRY [place] [facility] [place] [facility] Jul 27, 2024 01:00 PM AMBULATORY - PSYCHIATRY [place] [facility] [place] [facility] Aug 07, 2024 08:00 AM AMBULATORY - MEDICINE MA C [facility] [place] [facility] Aug 07, 2024 09:45 AM AMBULATORY - NONE [place] [facility] [place] [facility] Sep 23, 2024 09:00 AM AMBULATORY - PSYCHIATRY [place] [facility] [place] [facility] Oct 02, 2024 02:30 PM AMBULATORY - MEDICINE [place] C [facility] [place] [facility] Oct 06, 2024 11:30 AM AM[facility]UL[facility] Nov 25, 2024 08:30 AM AMBULATORY - [facility]ICINE [facility] NTRL TRN [facility] January 04, 2025 11:00 AM AMBULAT[facility] - [facility] Active, Pending, and Scheduled Orders This section [...] 01:51 PM Consult Order COMMUNITY CARE-ACUPUNCTURE Cons Tr[facility] Jul 20, 2024 01:21 PM Consult Order COMMUNITY CARE-PULMONARY Cons Trash [facility]uler[facility] Lab Results: +/- 30 days of the [...] Comment Jul 27, 2024 12:24 PM [facility] HEMOGLOBIN A1C PANEL Specimen Type: BLOOD Comment: [...] May 08, 2024 08:51 AM Reporting Lab: [address] [id number] Performing Lab: [address] [id number] HEMOGLOBIN A1C 6.0 H 4.0-5.6 Social History: [...] Current Smoking Status Comment [facility] Apr 06, 2024 12:30 PM VA-TOBACCO FORMER USER [place] [facility] [place] [facility] Tobacco Use History This section includes a history of the smoking, or tobacco-related health factors, that were collected on or before the date of the Encounter. The data comes from the [place] facility where the Encounter took place. Date/Time Smoking Status/Tobac co Use Comment Facility Apr 06, 2024 12:30 PM VA-TOBACCO QUIT 15 YRS OR MORE [facility] [place] [facility] Feb 08, 2023 10:00 AM VA-TOBACCO FORMER USER [facility] [place] [facility] Feb 08, 2023 10:00 AM VA-TOBACCO QUIT 15 YRS OR MORE [facility] [place] [facility] Mar 06, 2022 02:30 PM VA-TOBACCO FORMER USER [facility] [place] [facility] Mar 06, 2022 02:30 PM VA-TOBACCO QUIT 15 YRS OR MORE [facility] [place] [facility] Apr 04, 2021 10:28 AM VA-TOBACCO NEVER USED [facility] [place] [facility] May 03, 2020 02:00 PM VA-TOBACCO NEVER USED [facility] [place] [facility] Feb 25, 2019 08:14 AM VA-TOBACCO FORMER USER [facility] [place] [facility] Feb 25, 2019 08:14 AM VA-TOBACCO QUIT 5 TO < 15 YRS [facility] [place] [facility] Apr 04, 2018 10:41 AM QUIT TOBACCO USE 1-7 YEARS AGO [facility] [place] [facility] Oct 28, 2017 10:18 AM QUIT TOBACCO USE 1-7 YEARS AGO [facility] [place] [facility] Jan 22, 2017 01:08 PM QUIT TOBACCO USE 1-7 YEARS AGO [facility] [place] [facility] Jul 18, 2016 01:34 PM QUIT TOBACCO USE 1-7 YEARS AGO [facility] [place] [facility] January 10, 2016 10:32 AM QUIT TOBACCO USE 1-7 YEARS AGO [facility] [place] [facility] Oct 13, 2015 11:05 AM QUIT TOBACCO USE 1-7 YEARS AGO [facility] [place] [facility] Oct 19, 2014 01:53 PM QUIT TOBACCO USE > 7 YEARS AGO [place] [facility] [place] [facility] January 02, 2014 01:30 AM QUIT TOBACCO USE IN PAST YEAR [facility] [place] [facility] Jun 18, 2013 09:00 AM CURRENT SMOKER 6 cigarettes qd [facility] [place] [facility] Jun 18, 2013 09:00 AM V1-PT DECLINES TOBACCO CESSATION MEDS [place] [facility] [place] [facility] Jun 18, 2013 09:00 AM V1-PT NOT INTERESTED IN QUIT [facility]BACCO [facility] [place] [facility] December 24, 2012 10:51 AM V1-PT DECLINES REF TO TOBACCO CESS PRGM [facility] [place] [facility] December 24, 2012 10:51 AM V1-PT DECLINES TOBACCO CESSATION MEDS [facility] [place] [facility] December 24, 2012 10:51 AM V1-PT THINKING ABOUT QUIT TOBACCO [facility] [place] [facility] Jul 15, 2012 10:19 AM QUIT TOBACCO USE IN PAST [facility]AR [facility] [place] [facility] Jan 25, 2012 05:02 PM QUIT TOBACCO USE IN PAST YEAR [facility] Sep 28, 2011 10:09 AM CURRENT SMOKER 5 cigarettes a day [facility] [place] [facility] Jun 15, 2011 02:23 PM V1-PT DECLINES REF TO TOBACCO CESS PRGM [place] [facility] [place] [facility] Jun 15, 2011 02:23 PM V1-PT READY TO QUIT TOBACCO USE [facility] [place] [facility] Apr 13, 2011 10:31 AM V1-PT DECLINES REF TO TOBACCO CESS PR[facility] [place] [facility] Apr 13, 2011 10:31 AM V1-PT RECEIVES TOBACCO CESS MEDS OUTSIDE [facility] [place] [facility] Apr 13, 2011 10:31 AM V1-PT THINKING ABOUT QUIT TOBACCO USE [facility] Oct 16, 2010 08:52 AM QUIT TOBACCO USE IN PAST YEAR [facility] May 12, 2010 02:08 PM V1-PT DECLINES REF TO TOBACCO CESS PRGM [facility] May 12, 2010 02:08 PM V1-PT READY TO QUIT TOBACCO USE [facility] May 12, 2010 12:45 PM CURRENT SMOKER 3 cigarettes a day [facility] Encounter Notes: All associated encounter notes This section contains the clinical notes associated to the Encounter. Date/Time Encounter Note(s) Provider Source Jul 20, 2024 10:18 AM PSYCHOLOGY NOTE: LOCAL TITLE: PSYCHOLOGY NOTE STANDARD TITLE: PSYCHOLOGY NOTE DATE OF NOTE: JUL 20, 2024@10:18 ENTRY DATE: JUL 20, 2024@10:18:48 AUTHOR: LO GIBBS COSIGNER: URGENCY: STATUS: COMPLETED [facility] Group Treatment Planning Appointment Procedure: The was seen for a 50-minute F2F individual psychotherapy session in [facility] in anticipation of upcoming graduation from the 24 week [facility] group Problem: Difficulty being present in the moment and fostering compassion Objective: Discuss potential next steps following participation the [facility]ion Group given upcoming graduation Progress: Agreed to meet to discuss 's experience in the group, perception of current needs, and potential next steps following group graduation. completed self-report measures read to her by physician underwriter. Provided feedback about responses over time and reflected on her shifts based on experiences in care. Elysian Fields spoke about how the group content has been helpful, exploring appreciation of multiple perspectives and the connection with other Veterans. Elysian Fields spoke about how she is drawing upon mindful awareness in moments where it feels as if she will panic and listening to the inner wisdown she absorbed from her grandmother. expressed gratitude to physician underwriter and previous special agent group insurance. spoke about ongoing challenges with symptoms of PTSD and feelings of guilt. Elysian Fields considered potential next steps, discussing the options of [facility] Trauma Group or [facility] participation, individual therapy with a focus on processing past trauma, and engagement in the Whole Health Program. Elysian Fields declined current interest in a next step in therapy, expressing a desire to see how she is doing in 1-2 months and outreach should she want to become more involved again in MH care. Confirmed that will graduate from the [facility]ion group on Saturday, July 27, 2024 as she is unable to attend today. expressed satisfaction with this plan. Assessment: Elysian Fields arrived on time for session and was dressed appropriately with appropriate hygiene. maintained appropriate eye contact and was alert. spoke clearly and coherently. Veterans thoughts were linear and related. Veterans affect was congruent to content and appropriate in range. There was no evidence of AH/VH or delusions. There was no evidence of suicidal and homicidal ideation. Elysian Fields was reminded of emergency resources through this [facility] and the Veterans Crisis Line number. Diagnostic Impressions According to the DSM-V and Per Chart Review: PTSD, chronic Plan: Agreed will graduate from the [facility] Group on 07/27/24. Elysian Fields understands to outreach for assistance with treatment planning if/when needed. /jeana/ Lo Gibbs, PhD Clinical Psychologist, [facility] Signed: 07/20/2024 10:24 LO GIBBS [place] [facility] [place] [facility] Jul 20, 2024 09:57 AM MENTAL HEALTH DIAG NOSTIC STUDY NOTE: LOCAL TITLE: MENTAL HEALTH DIAGNOSTIC STUDY STANDARD TITLE: MENTAL HEALTH DIAGNOSTIC STUDY NOTE DATE OF NOTE: JUL 20, 2024@09:57:39 ENTRY DATE: JUL 20, 2024@09:57:39 AUTHOR: LO GIBBS EXP COSIGNER: URGENCY: STATUS: COMPLETED These assessments were completed by PEBBLES MEEK via provider direct entry on 07/20/2024 9:56:44 AM. PATIENT HEALTH QUESTIONNAIRE-9 (PHQ-9) The patient reported [...] Not at all PHQ-9 total score = 6 1-4 = minimal symptoms 5-9= mild symptoms 10-14= moderate symptoms 15-19= moderately severe symptoms 20-27= severe depressive symptoms The patient stated that the depressive symptoms made it not at all difficult to work, take care of things at home, or get along with others. PHQ-9 Total Score (past 180 days): 07/20/2024 6 04/23/2024 8 02/19/2024 4 BRIEF ADDICTION MONITOR-REVISED (BAM-R) Patient reported the following over the last 30 days: 1. Physical health: Fair 2. Nights trouble falling asleep or staying asleep: 30 3. Days depressed, anxious, angry or very upset: 4 4. Days drank ANY alcohol: 0 5. [...] be abstinent in the next 30 days: Extremely 10. Days attended self-help meetings (AA or NA): 0 11. Days in any situations that might have increased risk for using alcohol/drugs: 0 12. Christian or spirituality supports recovery: Extremely 13. Days with much of the time spent at work, school, or volunteerin 14. Enough income (from legal sources) to pay for necessities: Yes 15. Bothered by arguments or problems getting along with family/friends: Not at all 16. Days in contact with family/friends supportive of recovery: 3 17. Satisfied with progress toward achieving recovery goals: Extremely BAM Subscales: USE = 0 Scores range from 0 to 90 RISK = 56 Scores range from 0 to 180 PROTECTION = 117 Scores range from 0 to 180 DIFFICULTIES IN EMOTION REGULATION SCALE-16 (DERS-16) The patient reported that the statements below applied to them as follows: 1. Difficulty making sense out of their feelings: Sometimes 11-35% 2. Confused about how they feel: About half the time 36-65% 3. When upset, difficulty getting work done: Almost never 0-10% 4. When upset, become out of control: Almost never 0-10% 5. When upset, believe that they will remain that way for a long time: Almost never 0-10% 6. When upset, believe that they'll end up feeling very depressed: Sometimes 11-35% 7. When upset, difficulty focusing on other [...] feel overwhelming: Sometimes 11-35% DERS-16 Total Score: 22 Clarity Score: 5 Goals Score: 3 Impulse Score: 3 Strategies Score: 7 Nonacceptance Score: 4 Higher scores reflect greater levels of difficulty in emotion regulation. THE ACCEPTANCE AND ACTION QUESTIONNAIRE-II (AAQ-II) The patient rated how true each statement is for them as follows: 1. It's OK if I remember something unpleasant: Almost always true 2. My painful experiences and memories make it difficult for me to live a life that I would value: Frequently true 3. I am afraid of my feelings: Frequently true 4. I worry about not being able to control my worries and feelings: Almost always true 5. My painful memories prevent me from having a fulfilling life: Always true 6. I am in control of my life: Sometimes 7. Emotions cause problems in my life: Almost always true 8. It seems like most people are handling their lives better than I am: Never true 9. Worries get in the way of my success: Never true 10. My thoughts and feelings do not get in the way of how I want to live my life: Frequently true Total Score: 40 Scores range from 10 to 70 with higher scores indicating greater psychological flexibility. /jeana/ Lo Gibbs, PhD Clinical Psychologist, [facility] Signed: 07/20/2024 10:17 LO GIBBS CN[facility]L [facility]
--- OUTSIDE RECORDS SUMMARY | 2024-08-04 17:35 | XMS_ITS | Encounter Summary ---
Author Name [facility] [place] [facility] [place] [facility] [facility] [place] Address [address] [place] [address] Care Team Providers Care Staff Developer Name Role Phone CADEN FELIZ Primary [...] PLAN I Aug 19, 2019 PLAN I [id number] [phone] MEEK,GR ICEL PATIENT [employer] OPTIONS MEDICARE SUPPLEMEN MARCIA PLANM Y Aug 19, 2019 PLANMY [id number] MEEK,GR ICEL PATIENT [employer] OPTIONS MEDICARE SUPPLEMEN MARCIA AARP MEDIC ARE SUPPL Aug 19, 2019 PLAN MY [id number] [phone] MEEK,GR ICEL PATIENT AARP INS MEDICARE SUPPLEMEN MARCIA PLANM Y Aug 19, 2019 PLANMY [id number] MEEK,GR ICEL PATIENT AARP MED SUPP MEDICARE SUPPLEMEN MARCIA Jul 19, 2010 PLANMY [id number] MEEK,GR ICEL PATIENT MEDICARE (WNR) MEDICARE () PART B Aug 19, 2008 PART B [id number] MEEK,GR ICEL PATIENT MEDICARE (WNR) MEDICARE () PART B Aug 19, 2008 PART B [id number] [phone] MEEK,GR ICEL PATIENT MEDICARE (WNR) MEDICARE () PART B Aug 19, 2008 PART B [id number] MEEK,GR ICEL PATIENT MEDICARE (WNR) MEDICARE () PART B Aug 19, 2008 PART B [id number] MEEK,GR ICEL PATIENT MEDICARE (WNR) MEDICARE () PART B Aug 19, 2008 PART B [id number] [phone] MEEK,GR ICEL PATIENT MEDICARE (WNR) MEDICARE () PART B Aug 19, 2008 PART B [id number] MEEK,GR ICEL PATIENT MEDICARE (WNR) MEDICARE () PART B Aug 19, 2008 PART B [id number] [phone] MEEK,GR ICEL PATIENT MEDICARE (WNR) MEDICARE () PART A December 18, 2003 PART A [id number] MEEK,GR ICEL PATIENT MEDICARE (WNR) MEDICARE () PART A December 18, 2003 PART A [id number] [phone] MEEK,GR ICEL PATIENT MEDICARE (WNR) MEDICARE () PART A December 18, 2003 PART A [id number] [phone] MEEK,GR ICEL PATIENT MEDICARE (WNR) MEDICARE () PART A December 18, 2003 PART A [id number] MEEK,GR ICEL PATIENT MEDICARE (WNR) MEDICARE () PART A December 18, 2003 PART A [id number] MEEK,GR ICEL PATIENT MEDICARE (WNR) MEDICARE () PART A December 18, 2003 PART A [id number] SABINE MEEK PATIENT MEDICARE (WNR) MEDICARE (M) PART A December 18, 2003 PART A [id number] SABINE MEEK PATIENT Selected Encounter This section includes the information on record at [place] for the Encounter. Date/Time Encounter Type Encounter Description Reason Provider Source Jul 27, 2024 01:00 PM GROUP PSYCHOTHERAPY [facility] ICD-10-CM F43.12 Post-traumati c stress disorder, chronic MARY GIBBS IHE Encounter Template Text not used by [place] Assessments - Encounter Diagnoses This section includes the primary and secondary diagnoses documented for the Encounter. Date/Time Primary/Secondary Diagnosis Diagnosis Name Provider Source Jul 27, 2024 02:32 PM PRIMARY Post-traumatic stress disorder, chronic MARY GIBBS [place] [facility] [place] [facility] Plan of Treatment: Future Appointments (+ 6 months) and Future Tests (+/- 45 days) The Plan of Treatment section includes future care activities for the patient from all [place] [facility]. This section includes future appointments and future orders which are active, pending or scheduled. Future Appointments This section includes appointments that were scheduled to occur 6 months from the date of the Encounter, up to a maximum of 20 appointments. The data comes from all [place] treatment facilities. Appointment Date/Time Appointment Type Appointme nt Facility Name Aug 07, 2024 08:00 AM AMBULATORY - MEDICINE [place] [facility] [place] [facility] Aug 07, 2024 09:45 AM AMBULATORY - NONE [place] [facility] [place] [facility] Sep 23, 2024 09:00 AM AMBULATORY - PSYCHIATRY [facility] [place] [facility] Oct 02, 2024 02:30 PM AMBULATORY - MEDICINE [place] [facility] [place] [facility] Oct 06, 2024 11:30 AM AMBULATORY - MEDICINE [place] [facility] [place] [facility] Nov 25, 2024 08:30 AM AMBULATORY - MEDICINE [place] [facility] [place] [facility] January 04, 2025 11:00 AM AMBULATORY - MEDICINE [facility] [place] [facility] Active, Pending, and Scheduled Orders This section includes a listing of several types of active, pending, and scheduled orders, including clinic medications orders, diagnostic test orders, procedure orders and consult orders; where the start date of the order is 45 days before the date of the Encounter or 45 days after the date of theEncounter. The data comes from all [place] treatment facilities. Test Date/Time Test Type Test Details Facility Name Jun 26, 2024 01:51 PM Consult Order COMMUNITY CARE-ACUPUNCTURE Cons Entry Level Administrative Assistant's Choice [facility] Jul 20, 2024 01:21 PM Consult Order COMMUNITY CARE-PULMONARY Cons Entry Level Administrative Assistant's Choice [facility] Lab Results: +/- 30 days of the encounter This section includes the Chemistry and Hematology Lab Results on record with [place] for the patient. Radiology Reports and Pathology Reports are provided separately, in subsequent sections. Lab Results This section contains the Chemistry/Hematology Results that were resulted 30 days before or 30 daysafter the date of the Encounter. Date/Time Source Result Type Result - Unit Interpretation Reference Range Comment Jul 27, 2024 12:24 PM [facility] HEMOGLOBIN A1C PANEL Specimen Type: [...] May 08, 2024 08:51 AM Reporting Lab: [facility] [address] [facility] [id number] Performing Lab: [address] [id number] HEMOGLOBIN A1C 6.0 H 4.0-5.6 Social History: Smoking Status (Most current) and Tobacco Use (All prior to encounter date) This section includes the most current, and the historical, smoking and tobacco- related health factors from the [place] facility where the Encounter took place. Current Smoking Status This section includes the most current smoking, or tobacco-related health factor, from the [place] facility where the Encounter took place. Date/Time Current Smoking Status Comment Rosamaria zepeda Apr 06, 2024 12:30 PM VA-TOBACCO FORMER USER [place] [facility] [place] [facility] Tobacco Use History This section includes a history of the smoking, or tobacco-related health factors, that were collected on or before the date of the Encounter. The data comes from the [place] facility where the Encounter took place. Date/Time Smoking Status/Tobac co Use Comment Facility Apr 06, 2024 12:30 PM VA-TOBACCO QUIT 15 YRS OR MORE [place] [facility] [place] [facility] Feb 08, 2023 10:00 AM VA-TOBACCO FORMER USER [facility] [place] [facility] Feb 08, 2023 10:00 AM VA-TOBACCO QUIT 15 YRS OR MORE [facility] [place] [facility] Mar 06, 2022 02:30 PM VA-TOBACCO FORMER USER [facility] [place] [facility] Mar 06, 2022 02:30 PM VA-TOBACCO QUIT 15 YRS OR MORE [facility] [place] [facility] Apr 04, 2021 10:28 AM VA-TOBACCO NEVER USED [facility] [place] [facility] May 03, 2020 02:00 PM VA-TOBACCO NEVER USED [place] [facility] [place] [facility] Feb 25, 2019 08:14 AM VA-TOBACCO FORMER USER [facility] [place] [facility] Feb 25, 2019 08:14 AM VA-TOBACCO QUIT 5 TO < 15 YRS [facility] [place] [facility] Apr 04, 2018 10:41 AM QUIT TOBACCO USE 1-7 YEARS AGO [facility] [place] [facility] Oct 28, 2017 10:18 AM QUIT TOBACCO USE 1-7 YEARS AGO [facility] [place] [facility] Jan 22, 2017 01:08 PM QUIT TOBACCO USE 1-7 YEARS AGO [facility] [place] [facility] Jul 18, 2016 01:34 PM QUIT TOBACCO USE 1-7 YEARS AGO [facility] [place] [facility] January 10, 2016 10:32 AM QUIT TOBACCO USE 1-7 YEARS AGO [facility] [place] [facility] Oct 13, 2015 11:05 AM QUIT TOBACCO USE 1-7 YEARS AGO [facility] [place] [facility] Oct 19, 2014 01:53 PM QUIT TOBACCO USE > 7 YEARS AGO [facility] [place] [facility] January 02, 2014 01:30 AM QUIT TOBACCO USE IN PAST YEAR [facility] [place] [facility] Jun 18, 2013 09:00 AM CURRENT SMOKER 6 cigarettes qd [place] [facility] [place] [facility] Jun 18, 2013 09:00 AM V1-PT DECLINES TOBACCO CESSATION MEDS [facility] [place] [facility] Jun 18, 2013 09:00 AM V1-PT NOT INTERESTED IN QUIT TOBACCO USE [facility] [place] [facility] December 24, 2012 10:51 AM V1-PT DECLINES REF TO TOBACCO CESS PRGM [facility] [place] [facility] December 24, 2012 10:51 AM V1-PT DECLINES TOBACCO CESSATION MEDS [facility] [place] [facility] December 24, 2012 10:51 AM V1-PT THINKING ABOUT QUIT TOBACCO USE [facility] [place] [facility] Jul 15, 2012 10:19 AM QUIT TOBACCO USE IN PAST YEAR [facility] [place] [facility] Jan 25, 2012 05:02 PM QUIT TOBACCO USE IN PAST YEAR [facility] [place] [facility] Sep 28, 2011 10:09 AM CURRENT SMOKER 5 cigarettes a day [facility] [place] [facility] Jun 15, 2011 02:23 PM V1-PT DECLINES REF TO TOBACCO CESS PRGM [facility] [place] [facility] Jun 15, 2011 02:23 PM V1-PT READY TO QUIT TOBACCO USE [facility] [place] [facility] Apr 13, 2011 10:31 AM V1-PT DECLINES REF TO TOBACCO CESS PRGM [facility] [place] [facility] Apr 13, 2011 10:31 AM V1-PT RECEIVES TOBACCO CESS MEDS OUTSIDE [facility] [place] [facility] Apr 13, 2011 10:31 AM V1-PT THINKING ABOUT QUIT TOBACCO USE [facility] [place] [facility] Oct 16, 2010 08:52 AM QUIT TOBACCO USE IN PAST YEAR [facility] [place] [facility] May 12, 2010 02:08 PM V1-PT DECLINES REF TO TOBACCO CESS PRGM [facility] May 12, 2010 02:08 PM V1-PT READY TO QUIT TOBACCO USE [facility] May 12, 2010 12:45 PM CURRENT SMOKER 3 cigarettes a day [facility] Encounter Notes: All associated encounter notes This section contains the clinical notes associated to the Encounter. 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 She is aware of potential next steps and committed to outreach should she want a referral for further MH care. 07/27/2024 (by DEBBIE GIBBS) Goal: Increased ability to be present in the moment and experience a range of emotional experiences, including those that are desired and those that are distressing. Increased ability to be compassionate with oneself and others. Status: COMPLETED Comments: Completed by completing problem. 07/27/2024 (by DEBBIE GIBBS) Objective: will actively engage in mindfulness practice and group discussions. will utilize mindful compassion skills in response to distressing thoughts, feelings, and memories. Status: COMPLETED Comments: Completed by completing problem. 07/27/2024 (by DEBBIE GIBBS) Projected Target: 2024 Intervention: Weekly participation in the Mindful Compassion Hybrid VVC/F2F group for 6 months Status: COMPLETED Comments: Completed by completing problem. 07/27/2024 (by DEBBIE GIBBS) Discipline: Mental Health Clinic Time Frame: One time per week for 24 weeks Providers: DEBBIE GIBBS: PSYCHOLOGIST ALICIA DANIELSON: SEED LABORATORY TECHNICIAN Problem: PTSD Symptons: nightmares, flashbacks, insomnia, hypervigilance Status: ACTIVE Goal: PTSD will be reduced Status: ACTIVE Objective: Cores on PCL 5 will be reduced. Status: ACTIVE Projected Target: 08/14/2022 Intervention: Psychopharmacology Status: ACTIVE Discipline: Mental Health Clinic Time Frame: One time every 2 months for 1 year Providers: COLT ARNOLD: PSYCHIATRRENE DISCIPLINE: Mental Health Clinic Entered Treatment: 02/12/2022 @ 11:20AM Review Date: 12/30/2024 Anticipated Discharge: None PATIENT ACTION: PATIENT AGREED TO PLAN DISCUSSED. INTERDISCIPLINARY TEAM: COLT ARNOLD: PSYCHIATRIST DEBBIE GIBBS: PSYCHOLOGIST ALICIA DANIELSON S: SEED LABORATORY TECHNICIAN COMMUNICATION: Relevant treatment options, including evidence-based interventions, were considered and discussed with the Downs. YES A copy of the treatment plan was given to the Downs. NO Risks, benefits, and potential complications were discussed with the . YES /jeana/ Debbie Gibbs PhD Clinical Psychologist, Mental Health Clinic Signed: 07/27/2024 14:57 Receipt Acknowledged By: 07/28/2024 12:55 /jeana/ Ever Chambers LCSW [facility] Media Monitor 07/27/2024 16:03 /jeana/ COLT ARNOLD PSYCHIATRIST DEBBIE GIBBS [place] [facility] [place] [facility] Jul 27, 2024 02:29 PM PSYCHIATRY GROUP COUNSELING NOTE: LOCAL TITLE: PSYCHOLOGY GROUP NOTE STANDARD TITLE: PSYCHIATRY GROUP COUNSELING NOTE DATE OF NOTE: JUL 27, 2024@14:29 ENTRY DATE: JUL 27, 2024@14:30:02 AUTHOR: DEBBIE GIBBS EXP COSIGNER: URGENCY: STATUS: COMPLETED [facility] Mindful Compassion Group Therapy Note Downs identified with 2 identifiers: [X] Patient Name [X] Visual recognition ~~~ Childcare Center Director: Debbie Gibbs, PROCEDURE: 60-minute interactive VVC group therapy session Problem: Difficulty being present in the moment and fostering compassion Objective: Explored and practice mindful compassion Number of Veterans Present in Group: 3 GROUP CONTENT: Group members engaged in a mindful listening practice involving mindful self-compassion and the quote Go and love someone exactly as they are. And then watch how quickly they transform into the greatest, truest version of themselves. When one feels seen and appreciated in their own essence, one is instantly empowered by Rafael Kearney. Metta-loving kindness practice was introduced, with brief information about the history and time spent selecting and writing personal phrases in the following areas: safety, health, happiness, and ease. Group members participated in a benefactor oriented metta-loving kindness practice and spoke about this experience. They committed to engage in mindful awareness and to practice metta loving kindness between now and next group. Group members expressed appreciation to graduating group member, who spoke about the benefits of participation. PROGRESS: Downs arrived on time and was an active and appropriate participant. Downs participated in the mindfulness practices and group discussions. Mental Status was not formally assessed due to the nature of the encounter. Downs maintained appropriate eye contact and was alert. Downs spoke clearly and coherently. 's thoughts were linear and related. 's affect was congruent to content and appropriate in range. No clinical signs of intoxication, withdrawal, psychosis, or cognitive impairment were observed. No evidence of suicidal or homicidal ideation. There was no evidence of AH/VH or delusions. was future oriented. DSM-V DIAGNOSTIC IMPRESSIONS(per chart): PTSD, chronic PLAN: Downs will continue to participate in the Mindful Compassion Group on Mondays at 1pm. /jeana/ Debbie Gibbs, PhD Clinical Psychologist, Mental Health Clinic Signed: 07/27/2024 14:33 DEBBIE GIBBS [place] [facility]
[2024-08-04 18:20] VITALS: BP 119/68; PULSE 78; RESP 19; TEMP 36.6; O2SAT 98
[2024-08-04 18:25] VITALS: BP 119/68; PULSE 78; RESP 19; TEMP 36.6; O2SAT 98
== END 2024-08-04 18:26 | disposition home or self-care (01) ==
PROVIDERS: Physician Assistant; Emergency Provider Emergency Medicine; PCP Family Medicine
DX: J45.901 Unspecified asthma with (acute) exacerbation (principal); R07.89 Other chest pain; R94.31 Abnormal electrocardiogram [ECG] [EKG]; Z03.818 Encounter for observation for suspected exposure to other biological agents ruled out; Z79.899 Other long term (current) drug therapy
CPT/HCPCS: 0241U; 71046; 80053; 83690; 85025; 93005; 99282; 99283

== ENCOUNTER → 2024-08-04 15:25 | Outpatient (BNV) | payer OTHER, SELFPAY | PROVIDERS: Emergency Provider Emergency Medicine; PCP Family Medicine; Visit Provider Internal Medicine | DX: R07.9 Chest pain, unspecified (principal); R94.31 Abnormal electrocardiogram [ECG] [EKG] | CPT/HCPCS: 93010 ==

== ENCOUNTER 2024-12-01 09:04 | Outpatient (AMB) | payer OTHER, SELFPAY ==
--- NOTE | 2024-12-01 09:16 | A.OFFVIS_ITS ---
Vital Signs 12/01/24 09:17 Height 5 ft 1 in Weight 138 lb BMI 26.1 BP 112/64 Blood Pressure Location Lt brachial Position Sitting Pulse 75 Pulse Source Pulse Oximeter Pulse Oximetry (%) 97 Oxygen Delivery Method Room Air Intake Visit Reasons: Shortness of breath Intake Note: pt is here for follow up and states her breathing is okay but she does have a trouble when she is away, last week very tight in chest and wrap to her ribs Diesel Mechanic Helper Required: No Allergies hydromorphone [From Dilaudid] Adverse Reaction (Verified 12/01/24 09:31) Itching Medication List - Last Reconciled 12/01/24 by Sharyn Titus MD apixaban (Eliquis) 5 mg PO BID cetirizine (All Day Allergy (cetirizine)) 10 mg PO DAILY cholecalciferol (vitamin D3) 25 mcg PO DAILY cyanocobalamin (vitamin B-12) 1,000 mcg PO DAILY diltiazem HCl ER 240 mg PO QAM ipratropium-albuterol 0.5 mg-3 mg(2.5 mg base)/3 mL 3 mL inhalation Q6H PRN ipratropium-albuterol 18-103 mcg/actuation sprays inhalation lorazepam 0.5 mg PO DAILY PRN mometasone-formoterol 200-5 mcg/actuation (Dulera) 2 puffs inhalation BID montelukast (Singulair) 10 mg PO DAILY 30 days sertraline 100 mg PO DAILY trazodone 100 mg PO BEDTIME PRN Do you need a note to return to daycare/school/sports/work: No HPI HPI Shortness of breath: Details: This 74 years old female, very pleasant lady with chronic problem of allergic rhinitis, bronchial asthma/COPD, is here for 4 months follow-up. She also has history of obstructive sleep apnea at 1 point but could not tolerate the CPAP. Repeat sleep study was negative for sleep apnea. She continues to have frequent bouts of nasal congestion with postnasal drip, Frequent episodes of tight feeling in the chest with shortness of breath. She does use Combivent Respimat or ipratropium albuterol solution in the nebulizer Q 4-6 hours p.r.n.. And continues to use Dulera 200-5 2 puffs b.i.d.. She told me that to she goes for acupuncture treatments about every week and she feels much better after that. There seems to be anxiety component which increases her respiratory symptoms. [facility] Medical History Allergic rhinitis Somnolence, daytime MARITZA (obstructive sleep apnea) CAD (coronary artery disease) Severe asthma Diabetes Paroxysmal atrial fibrillation Left ankle injury Surgical History History of section History of tubal ligation H/O right knee surgery Social History Alcohol intake: never Patient Tobacco Use Status: Former Tobacco user Review of Systems Const All systems reviewed & are unremarkable except as noted in HPI and below Eyes Reports no additional complaints ENT Reports no additional complaints, Denies dizziness and Reports nasal congestion (Mild off and) Card Denies syncope, Denies irregular heart rhythm and Denies leg edema Resp Reports as per HPI GI Reports heartburn (History of GERD symptoms being treated) Reports no additional complaints Musc Reports no additional complaints Skin/Breast Reports system reviewed and no additional complaints, except as documented Neuro Denies dizziness and Denies syncope Psych Reports anxiety and Reports depression Endo Reports no additional complaints Hernan/Lymph Reports no additional complaints Aller/Immun Reports no additional complaints Physical Exam Vital Signs: Last Vital Signs Pulse 75 12/01/24 09:17 BP 112/64 12/01/24 09:17 Pulse Ox 97 12/01/24 09:17 Oxygen Delivery Method Room Air 12/01/24 09:17 BMI result Body Mass Index 26.1 Const General: healthy appearing, comfortable, no acute distress, alert and awake Orientation/consciousness: patient oriented x3 HEENT Head: Yes normal to inspection General nose exam: No nasal polyps present and No nasal discharge present Face and sinus: Yes sinuses nontender Mouth: oropharynx normal (Mallampati class 2) Throat: Yes posterior oropharynx normal Eyes General: appearance normal, both eyes and all related structures Neck Other: Neck circumference 14-1/2 inch Neck: Yes normal visual inspection, Yes no lymphadenopathy, Yes trachea midline and Yes no JVD Thyroid: Thyroid normal Chest Chest palpation & inspection: normal inspection of the chest, normal palpation of entire chest wall and no tenderness Resp Other: Percussion note is resonant. Breath sounds are only slightly distant. No wheezes rhonchi or crepitations are heard. Cardio Palpation: normal PMI Rate: regular rate Rhythm: regular rhythm Heart sounds: no gallops and no murmurs GI Palpation (GI): Soft to palpation, nontender, No hepatosplenomegaly present and no masses Auscultation: normal bowel sounds Back/Spine/Pelvis Thoracic/Lumbar Spine: thoracic and lumbar spine normal to inspection Skin General skin exam: no rashes or lesions noted Neuro General: patient oriented x3 and no focal motor deficits Cranial nerves: Yes CN's II-XII intact bilaterally Extrem General: Yes normal to inspection, Yes no clubbing, cyanosis or edema and Yes no calf tenderness Psych Speech and movement: Normal speech and movement present Assessment & Plan Assessment & Plan (1) Severe asthma: Comment: Longstanding history of bronchial asthma, most probably allergic in nature, history of status asthmaticus a few times but many years ago. Currently seems to be well controlled , with the current medical regimen. She also goes for acupuncture treatments which help. Code(s): J45.909 - Unspecified asthma, uncomplicated Category: Medical Plan: Continue to use Dulera 200-5 2 puffs b.i.d.. Combivent Respimat, 1 inhalation Q 6 hours p.r.n., mostly when outdoors. Alternatively may use ipratropium-albuterol solution in the nebulizer Q 4-6 hours p.r.n. when at home. (2) Allergic rhinitis: Comment: Longstanding history of allergic rhinitis/sinusitis, has had nasal septoplasty in the past. Has been using antihistaminics were long-time. It seems to be fairly well controlled at this time but she has frequent flare ups of postnasal discharge. Code(s): J30.9 - Allergic rhinitis, unspecified Category: Medical Plan: Continue montelukast 10 mg daily Cetirizine 10 mg once a day p.r.n. (3) SOB (shortness of breath) on exertion: Comment: SHORTNESS OF BREATH ON EXERTION MAY BE DUE TO COPD ALONG WITH BRONCHIAL ASTHMA. SPIROMETRY : CONSISTENT WITH MILD TO MODERATE DEGREE OF OBSTRUCTIVE AIRWAY DISORDER. Code(s): R06.02 - Shortness of breath Category: Medical Plan: Patient is instructed to do deep breathing exercises 3 to 4 times a day. Treatment of asthma/COPD as noted above. Coding Level of Care Code Est Pt Level 3 (97345) Diagnoses Severe asthma J45.909 Allergic rhinitis J30.9 SOB (shortness of breath) on exertion R06.02
[2024-12-01 09:17] VITALS: BP 112/64; PULSE 75; O2SAT 97; BMI 26.1
--- OUTSIDE RECORDS SUMMARY | 2024-12-01 09:38 | XMS_ITS | Clinical Summary ---
Author Organization [facility] Address [address] [place] [address] Phone Care Team Providers Care Registered Associate Name Role Phone Silva Dhaliwal MD Primary Care Provider Allergies Active Allergy Reactions Criticality Noted Date Comments Atorvastatin Hives 05/14/2014 Mirtazapine Hyperactive behavior 10/28/2012 Moxifloxacin Flushing,Itching Medium 12/31/2011 Niacin Flushing 11/13/2010 Simvastatin 07/08/2008 Sulfamethoxazole-Trime thoprim Hives 05/03/2003 Sulfur 01/09/2003 Other Reaction(s): HIVES, Respiratory distress, VISION,BLURRED, HIVES, Respiratory distress, VISION,BLURRED, HIVES, Respiratory distress, VISION,BLURRED Varenicline Anxiety Medium 09/28/2011 Medications metFORMIN (GLUCOPHAGE) 500 mg tablet 1 TABLET 2 TIMES DAILY WITH FOOD Active apixaban (ELIQUIS) 5 mg tablet Take 1 tablet (5 mg total) by mouth every 12 hours. 08/09/2023 Active LORazepam (ATIVAN) 0.5 mg tablet 1 TABLET TWICE DAILY prn Active sertraline (ZOLOFT) 25 mg tablet Take 1 tablet (25 mg total) by mouth 1 (one) time each day. Active traZODone (DESYREL) 50 mg tablet Take 1 tablet (50 mg total) by mouth at bedtime. Active dilTIAZem LA (CARDIZEM LA) 180 mg 24 hr tablet Take 240 mg by mouth. 12/31/2023 Active Active Problems Problem Noted Date Diagnosed Date History of right wrist replacement 11/02/2024 Acute cough 10/13/2024 Sleep apnea 10/13/2024 Overview (10/13/2024): Jul 21, 2010 Entered By: DIPAK JOSEPH Comment: on cpap Chronic anxiety 10/13/2024 Overview (10/13/2024): Sep 18, 2016 Entered By: TAYLOR LENNON Comment: with panic attacks, currently well controlled Chronic depression 10/13/2024 Overview (10/13/2024): Mar 10, 2012 Entered By: TAYLOR LENNON Comment: reviewed Chronic asthmatic bronchitis ([facility] V24, [facility] V28) 10/13/2024 Chronic obstructive pulmonar y disease ([facility] V24, [facility] V28) 10/13/2024 Chronic rhinitis 10/13/2024 Allergic rhinitis, unspecified 10/13/2024 Complete loss of teeth due t o periodontal diseases, class III 10/13/2024 COVID-19 10/13/2024 Degeneration of lumbar or lumbosacral interverte bral disc 10/13/2024 Anxiety disorder, unspecified 10/13/2024 Post-traumatic stress disorder, chronic 10/13/19 Insomnia due to other mental disorder (CODE) Insomnia related to another mental disorder 09/20 Posttraumatic stress disorder 10/13/2024 Overview (10/13/2024): Dec 15, 2013 Entered By: TAYLOR LENNON Comment: reviewed Other recurrent depressive disorders ([facility] V2 4) 10/13/2024 Deposits (accretions) on teeth 10/13/2024 Derangement of knee 10/13/2024 Diabetes mellitus due to und erlying condition without complications ([facility] V24, [facility] V28) 10/13/2024 Disorder of thyroid 10/13/2024 Exposure to potentially hazardous substance 09/20 Overview (10/13/2024): Nov 27, 2023 Entered By: JERSEY GAYTAN Comment: Entered automatically through [facility] Problem List documentation program Gastro-esophageal reflux dis ease with esophagitis, without bleeding 10/13/2024 Gastro-esophageal reflux disease with esophagiti s 10/13/2024 Gastroesophageal reflux disease 10/13/2024 Hyperlipidemia 10/13/2024 Ingrowing nail 10/13/2024 Migraine 10/13/2024 Migraine without aura and responsive to treatmen t 10/13/2024 Nonalcoholic fatty liver 10/13/2024 Obesity 10/13/2024 Open angle with borderline findings, low risk, b ilateral 10/13/2024 Osteopenia 10/13/2024 Other low back pain 10/13/2024 Other chest pain 10/13/2024 Pain in left hip 10/13/2024 Knee pain 10/13/2024 Pain in right wrist 10/13/2024 Paroxysmal atrial fibrillation ([facility] V24, [facility] V28) 10/13/2024 Paroxysmal atrial fibrillation ([facility] V24, [facility] V28) 10/13/2024 Partial loss of teeth, unspecified cause, unspec ified class 10/13/2024 Pruritus, unspecified 10/13/2024 Puckering of macula, right eye 10/13/2024 Restless legs syndrome 10/13/2024 Sciatica 10/13/2024 Sensorineural hearing loss, bilateral 10/13/2024 Sprain of sacroiliac joint 10/13/2024 Type 2 diabetes mellitus wit hout complication ([facility] V24, [facility] V28) 10/13/2024 Vertigo 10/13/2024 Vertigo of central origin 10/13/2024 Vitamin D deficiency 10/13/2024 Chronic knee pain after tota l replacement of right knee joint 08/21/2022 Osteonecrosis of left knee r egion ([facility] V24, [facility] V28) 08/21/2022 Status post revision of total knee replacement, right 06/26/2022 Diabetes mellitus ([facility] V24, [facility] V28) Overview (10/13/2024): Diabetes mellitus Osteoarthritis 04/28/2012 Overview (10/13/2024): Osteoarthritis Asthma 04/21/2008 Encounters Date Type Department Care Team Description 11/03/2024 Telephone Orthopedic Surgery [facility] [address] [facility] [address] [place] [address] Leydi Garcia MD 11/02/2024 9:30 AM EDT Office Visit Orthopedic [facility] [address] [facility] [address] [place] [address] Leydi Garcia MD History of right wrist replacement (Primary Dx) 10/13/2024 10:00 AM EST Consult Orthopedic [facility] [address] [facility] [address] [place] [address] Taylor Iraheta PA Right arm pain (Primary Dx); Pain in right wrist; Right wrist pain from Last 3 Months Immunizations Name Administration Dates Next Due DTaP, Unspecified 01/26/2011 H1N1 All Forms 09/13/2009 Influenza Quadravalent, 0.5m l (Fluad) 65yo and older 05/08/2022,06/26/2021 Influenza Quadravalent, 0.5m l (Fluzone High-dose) 65yo and older 06/03/2023,05/16/2020 Influenza trivalent, 0.5mL ( Fluad) 65yo and older 05/18/2019 Influenza trivalent, 0.5mL ( Fluzone High-dose) 65yo and older 05/08/2018,06/10/2017 Influenza, Unspecified 06/21/2016,2014,05/14/2014,06/28,06/12/2012,05/30/2011,2010 ,05/20/2009,05/21/2008,05/19/2008,03/2007,06/03/2003 Moderna SARS-CoV-2 COVID-19, mRNA, LNP-S, preservative free 11/18/2020,10/21/2020 Pneumococcal conjugate 13 va lent (Prevnar 13, PCV13) 2mo and older 10/28/2017 Pneumococcal polysaccharide 23 valent (Pneumovax 23) 2yo and older 02/15/2021,06/01/2015 Pneumococcal, Unspecified 2010,07/19/2000 Td Tetanus diptheria, preser vative free (Tenivac) 7yo and older 02/15/2021 Td, Unspecified 08/19/1998 Zoster Live 04/05/2014 Zoster recombinant (Shingrix ) 19yo and older 05/16/2020,10/23/2019 Surgical History Surgery Date Site/Laterality Comments WRIST SURGERY Right about 15 years ago (2009?); hardware in place Social History Tobacco Use Types Packs/Day Years Used Date Smoking Tobacco: Never Assessed Comments Unknown Sex and Gender Information Value Date Recorded Sex Assigned at Not on file Legal Sex Female 2:26 PM EST Gender Identity Not on file Sexual Orientation Not on file Obstetrics History Last Filed Vital Signs Vital Sign Reading Time Taken Comments Blood Pressure - - Pulse - - Temperature - - Respiratory Rate - - Oxygen Saturation - - Inhaled Oxygen Concentration - - Weight 63 kg (139 lb) 11/02/2024 9:36 AM EDT Height 154.9 cm (5' 1 ) 11/02/2024 9:36 AM EDT Body Mass Index 26.26 11/02/2024 9:36 AM EDT Plan of Treatment Upcoming Encounters Date Type Department Care Team (Late st Contact Info) Description 12/21/2024 9:00 AM EDT Office Visit Orthopedic Surgery - [place] [address] [address] Leydi Garcia MD 175 [facility] [address] [place] [address] Health Maintenance Due Date Last Done Comments Diabetes: Annual Foot Exam 1962 Diabetes: Annual Retina Eye Exam 1962 RSV Immunization Adult Patients (1 - Risk 60-74 years 1-dose series) 2012 Diabetes: Annual GFR (Glomerular Filtration Rate) 12/05/2022 12/05/2021 COVID-19 Vaccine ( season) 2024 11/18/2020, 10/21/2020 Breast Cancer Screening 06/13/2024 06/13/2022 Cholesterol Screening (Lipid Panel) 10/06/2024 Colorectal Cancer Screening: Colonoscopy 10/06/2024 Depression Screening 10/06/2024 Falls Risk Assessment 10/06/2024 Hepatitis C Screening 10/06/2024 Medicare Annual Wellness Visit 10/06/2024 Osteoporosis Screening (Bone Density Screening) 10/06/2024 Social Influencers of Health Screening 10/06/2024 Diabetes: Annual Urine Albumin-Creatinine Ratio (uACR) 10/13/2024 Diabetes: Blood Sugar Control Test (HGBA1C) 10/13/2024 Influenza Vaccine (Season Ended) 2025 06/03/2023, 05/08/2022, 06/26/2021, Additional history exists DTaP,Tdap,and Td Vaccines (4 - Td or Tdap) 02/15/2031 02/15/2021, 01/26/2011, 08/19/1998 Zoster Vaccines Completed 05/16/2020, 01/2020, 04/05/2014 Pneumococcal Vaccine: 50+ Years Completed 02/15/2021, 10/28/2017, 06/01/2015, Additional history exists HIB Vaccines Aged Out No longer eligi ble based on patient's age to complete this topic HPV Vaccines Aged Out No longer eligi ble based on patient's age to complete this topic Hepatitis A Vaccines Aged Out No long er eligible based on patient's age to complete this topic Hepatitis B Vaccines Aged Out No long er eligible based on patient's age to complete this topic IPV Vaccines Aged Out No longer eligi ble based on patient's age to complete this topic MMR Vaccines Aged Out No longer eligi ble based on patient's age to complete this topic Meningococcal ACWY Vaccine Aged Out N o longer eligible based on patient's age to complete this topic Meningococcal B Vaccine Aged Out No l onger eligible based on patient's age to complete this topic RSV Immunization Patients Under 20 months Aged Out No longer eligible based on patient's age to complete this topic Varicella Vaccines Aged Out No longer eligible based on patient's age to complete this topic Procedures Procedure Name Priority Date/Time Associated Diagnosis Comments CBC WITH AUTO DIFFERENTIAL Routine 10/13/2024 11:10 AM EST Right wrist pain CBC AND DIFFERENTIAL Routine 10/13/2024 11:10 AM EST Right wrist pain C-REACTIVE PROTEIN Routine 10/13/2024 11 :10 AM EST Right wrist pain XR SHOULDER 2+ VIEWS RIGHT Routine 10/13/2024 10:25 AM EST Right arm pain XR WRIST 3+ VIEWS RIGHT Routine 10/13/2024 10:25 AM EST Pain in right wrist Right arm pain XR FOREARM 2 VIEWS RIGHT Routine 10/13/2024 10:25 AM EST Pain in right wrist Right arm pain from Last 3 Months Results * (ABNORMAL) CBC auto differential (10/13/2024 11:10 AM EST) [facility] WBC 4.0(L) 4.8 - 10.8 K/mcL LAB HEMETOLOGY METHOD 10/13/2024 2:12 PM [facility] RBC 3.90 3.80 - 4.80 M/mcL LAB HEMETOLOGY METHOD 10/13/2024 2:12 PM [facility] Hemoglobin 12.6 11.5 - 16.0 g/dL LAB HEMETOLOGY METHOD 10/13/2024 2:12 PM [facility] Hematocrit 38.2 35.0 - 47.0 % LAB HEMETOLOGY METHOD 10/13/2024 2:12 PM [facility] MCV 97.4 79.0 - 98.0 FL LAB HEMETOLOGY METHOD 10/13/2024 2:12 PM [facility] MCH 32.1(H) 27.0 - 32.0 pcg LAB HEMETOLOGY METHOD 10/13/2024 2:12 PM [facility] MCHC 33.0 32.0 - 37.0 g/dL LAB HEMETOLOGY METHOD 10/13/2024 2:12 PM [facility] RDW 12.4 11.0 - 15.0 % LAB HEMETOLOGY METHOD 10/13/2024 2:12 PM [facility] Platelets 251 130 - 400 K/mcL LAB HEMETOLOGY METHOD 10/13/2024 2:12 PM [facility] MPV 9.6 7.0 - 11.0 FL LAB HEMETOLOGY METHOD 10/13/2024 2:12 PM [facility] NRBC 0.0 <1.0 % LAB HEMETOLOGY METHOD 10/13/2024 2:12 PM [facility] NRBC Absolute 0.00 <0.10 K/mcL LAB HEMETOLOGY METHOD 10/13/2024 2:12 PM [facility] Neutrophils Relative 53.1 % LAB HEMETOLOGY METHOD 10/13/2024 2:12 PM [facility] Lymphocytes Relative 32.3 % LAB HEMETOLOGY METHOD 10/13/2024 2:12 PM [facility] Monocytes Relative 9.8 % LAB HEMETOLOGY METHOD 10/13/2024 2:12 PM [facility] Eosinophils Relative 3.5 % LAB HEMETOLOGY METHOD 10/13/2024 2:12 PM [facility] Basophils Relative 1.0 % LAB HEMETOLOGY METHOD 10/13/2024 2:12 PM [facility] Immature Granulocytes Relative 0.3 % LAB HEMETOLOGY METHOD 10/13/2024 2:12 PM [facility] Neutrophils Absolute 2.12 1.50 - 7.00 K/mcL LAB HEMETOLOGY METHOD 10/13/2024 2:12 PM [facility] Lymphocytes Absolute 1.29 1.00 - 5.00 K/mcL LAB HEMETOLOGY METHOD 10/13/2024 2:12 PM [facility] Monocytes Absolute 0.39 0.20 - 1.00 K/mcL LAB HEMETOLOGY METHOD 10/13/2024 2:12 PM [facility] Eosinophils Absolute 0.14 0.00 - 0.50 K/mcL LAB HEMETOLOGY METHOD 10/13/2024 2:12 PM [facility] Basophils Absolute 0.04 0.00 - 0.20 K/[facility] LAB HEMETOLOGY METHOD 10/13/2024 2:12 PM EST [facility] Immature Granulocytes Absolute 0.01 0.00 - 0.03 K/[facility] LAB HEMETOLOGY METHOD 10/13/2024 2:12 PM EST [facility] Blood Venous blood specimen / Unknown Venipuncture / Unknown 10/13/2024 11:10 AM EST 10/13/2024 11:10 AM EST us Taylor ROJAS LAB BLOOD ORDERABLES Final Re sult [facility] [address] [place] [address], [place] [phone] * C-reactive protein (10/13/2024 11:10 AM EST) C-Reactive Protein <0.29 <=0.50 mg/dL LAB CHEMISTRY METHOD 10/13/2024 2:47 PM EST [facility] Blood Venous blood specimen / Unknown Venipuncture / Unknown 10/13/2024 11:10 AM EST 10/13/2024 11:10 AM EST Taylor ROJAS LAB BLOOD ORDERABLES Final Re sult [facility] [address] [place] [address], [place] [phone] * XR Shoulder 2+ Views Right (10/13/2024 10:25 AM EST) Anatomical Region Laterality Modality Upper Extremities, Shoulder Right Comp uted Radiography Narrative 10/13/2024 12:34 PM EST Date of Visit: 10/13/2023 Reason for visit: Right shoulder pain Views: AP, Grashey Y and axillary of right shoulder Comparison: None Findings: No fracture, dislocation or lytic lesions. ??No glenohumeral arthritis. ??Mild AC joint arthritis. ??No narrowing of subacromial space or proximal migration humeral head. ??No constipation. ??There is some subchondral bone cyst numeral head level of greater tuberosity Impression: Mild arthritic changes right shoulder no acute findings Taylor ROJAS IMG XR PROCEDURES Final Resul t * XR Wrist 3+ Views Right (10/13/2024 10:25 AM EST) Anatomical Region Laterality Modality Upper Extremities, Wrist Right Compute d Radiography Narrative 10/13/2024 12:39 PM EST Date of Visit: 10/13/2024 Reason for visit: Right wrist pain Views: AP, lateral, oblique right wrist Comparison: X-rays in 2019 Findings: Evidence of previous PCR and arthroplasty.The prosthetic component at the distal carpal row does appear to be ulnarly deviated compared to 2019. ??Alignment of the distal component to the radial component is off-center. ??No loosening of the screws seen. Impression: Postsurgical changes and changes in alignment of wrist arthroplasty. Taylor ROJAS IMG XR PROCEDURES Final Resul t * XR Forearm 2 Views Right (10/13/2024 10:25 AM EST) Anatomical Region Laterality Modality Upper Extremities, Forearm Right Compu christy Radiography Narrative 10/13/2024 12:36 PM EST Date of Visit: 10/13/2024 Reason for visit: Right forearm pain Views: AP and lateral right forearm Comparison: None Findings: Evidence of distal ulnar excision. ??Alignment of the forearm is normal. ??Normal radiocapitellar and ulnar relationships. Impression: Normal forearm radiographs Taylor ROJAS IMG XR PROCEDURES Final Resul t from Last 3 Months Insurance MEDICARE [facility] Care Teams Registered Associate Relationship Specialty Start Date End Date Silva Dhaliwal MD [address] [facility] Primary Care ([id number]) MOE Santizo PCP - General Family Medicine 11/02/24
== END 2024-12-01 09:36 | disposition home or self-care (01) ==
PROVIDERS: PCP Family Medicine; Visit Provider Internal Medicine
DX: J45.909 Unspecified asthma, uncomplicated (principal); J30.9 Allergic rhinitis, unspecified; R06.02 Shortness of breath
CPT/HCPCS: 99213

== ENCOUNTER → 2024-12-01 09:04 | Outpatient (BNVA) | payer OTHER, SELFPAY | PROVIDERS: PCP Family Medicine; Visit Provider Internal Medicine | DX: J45.909 Unspecified asthma, uncomplicated (principal); R06.02 Shortness of breath | CPT/HCPCS: 99212 ==

== ENCOUNTER 2025-07-16 13:16 | Emergency (ER) | payer OTHER, SELFPAY ==
--- NOTE | ~2025-07-16 | XR_ITS ---
EXAMINATION: XR CHEST CLINICAL INFORMATION: SOB COMPARISON: Radiographs on August 04, 2024 TECHNIQUE: 2 views of the chest were obtained. FINDINGS: Lungs: No focal consolidation or evidence of pulmonary edema. Pleura: No pleural effusion or pneumothorax. Heart/Mediastinum: Cardiomediastinal silhouette is within normal limits. Bones: No acute findings. XR/XR chest 2V IMPRESSION: No acute cardiopulmonary process. Electronically signed by: Hong Guy MD 07/16/2025 02:05 PM [email or web address]
[2025-07-16 13:20] VITALS: BP 122/64; PULSE 85; RESP 18; TEMP 36.2; O2SAT 96; BMI 26.9
--- NOTE | 2025-07-16 13:20 | ED.GENADULT ---
HPI - General Adult General Chief complaint: Dyspnea Stated complaint: asthma sob Time Seen by Provider: 07/16/25 16:01 Source: patient Mode of arrival: ambulatory Limitations: no limitations History of Present Illness ED Provider: Dr[facility] Patel [facility] narrative: This is a 75-year-old female presented hospital today for evaluation of increased shortness of breath. Patient stated that she has tightness in her chest. She is complaining of posterior thorax pain when she breathes in and out. Patient stated that she has been using nebulizer at home without any alleviation. She has have history of asthma. Patient's does endorse some coughing and sore throat as well. Related Data Home Medications ?Medication ?Instructions ?Recorded ?Confirmed cholecalciferol (vitamin D3) 25 25 mcg PO DAILY 04/09/23 01/07/24 mcg (1,000 unit) capsule cyanocobalamin (vitamin B-12) 1,000 mcg PO DAILY 04/09/23 01/07/24 1,000 mcg capsule ipratropium 18 mcg-albuterol 103 spray inhalation 04/09/23 01/07/24 mcg/actuation aerosol inhaler lorazepam 0.5 mg tablet 0.5 mg PO DAILY PRN 04/09/23 01/07/24 sertraline 100 mg tablet 100 mg PO DAILY 04/09/23 01/07/24 trazodone 100 mg tablet 100 mg PO BEDTIME PRN 04/09/23 01/07/24 cetirizine 10 mg capsule (All Day 10 mg PO DAILY 04/30/23 01/07/24 Allergy (cetirizine)) mometasone-formoterol HFA 200 2 puff inhalation BID 09/17/23 01/07/24 mcg-5 mcg/actuation aerosol inhaler (Dulera) ipratropium 0.5 mg-albuterol 3 mg 3 ml inhalation Q6H PRN wheezing 12/01/24 12/01/24 (2.5 mg base)/3 mL nebulization soln Previous Rx's ?Medication ?Instructions ?Recorded apixaban 5 mg tablet (Eliquis) 5 mg PO BID #60 tabs 06/25/23 diltiazem HCl 240 mg capsule,24 240 mg PO QAM #90 caps 06/25/23 hr,extended release montelukast 10 mg tablet 10 mg PO DAILY allergic rhinitis 07/21/24 (Singulair) 30 days #30 tabs acetaminophen 500 mg tablet 1,000 mg (2 x 500 mg) PO Q8H 10 07/16/25 days #60 tabs azithromycin 250 mg tablet See Rx Instructions PO .COMPLEX #6 07/16/25 tabs lidocaine 5 % topical patch 1 patch topical DAILY #15 ea 07/16/25 prednisone 20 mg tablet 40 mg (2 x 20 mg) PO DAILY 5 days 07/16/25 #10 tabs Allergies Allergy/AdvReac Type Severity Reaction Status Date / Time hydromorphone (From Dilaudid) AdvReac Itching Verified 07/16/25 13:21 Review of Systems Review of Systems: Pertinent review of systems as mentioned in HPI. All other system otherwise negative. [facility] Past Medical History [facility] Narrative: Asthma, diabetes Medical History Allergic rhinitis Somnolence, daytime MARITZA (obstructive sleep apnea) CAD (coronary artery disease) Severe asthma Diabetes Paroxysmal atrial fibrillation Left ankle injury Surgical History History of section History of tubal ligation H/O right knee surgery Social History Social History Alcohol intake: never Patient Tobacco Use Status: Former Tobacco user Advance Directives: No Advance Directives Information Provided: No Do you have a plan to hurt others: No Plan Physical Exam ED Exam Exam: General: Pleasant, no distress, interacting appropriately Head: Normacephalic, atraumatic ENT: oral mucosa moist, neck supple, no tracheal deviation Cardiovascular: regular rate, regular rhythm, no murmurs, rubbing, gallops, reproducible posterior thorax pain on palpation Respiratory: Diminished lung sounds bilaterally Extremities: No limb pain or swelling, no calf tenderness Neurological: Awake and alert, no facial droop noted Skin: Warm and dry Psychiatric: Appropriate mood and thoughts Vital Signs: Vital Signs - 24 hr 07/16/25 13:20 07/16/25 16:31 07/16/25 17:18 Temperature 97.2 F 97.4 F Pulse Rate 85 68 75 Respiratory Rate 18 16 22 H Blood Pressure 122/64 109/56 L Pulse Oximetry 96 97 Oxygen Delivery Method Room Air Room Air BMI result Body Mass Index 26.9 Course Course Course Narrative: Rapid medical examination performed in triage by Josefina Casey PA-C: Patient is a 75 year old assigned female at presenting to the emergency department with increased shortness of breath / cough / chest pain. Detailed physical exam and review of systems are deferred to the primary operator. EKG, labs, imaging, swabs ordered. Patient placed back in the waiting room pending room availability and results. Medications Administered Discontinued Medications Generic Name Dose Route Start Last Admin Trade Name Ted PRN Reason Stop Dose Admin Acetaminophen 975 mg 07/16/25 16:22 07/16/25 16:35 Acetaminophen 325 Mg Tablet PO 07/16/25 16:23 975 mg ONCE ONE Administration Albuterol/Ipratropium 3 ml 07/16/25 16:22 07/16/25 16:30 Albuterol/Iprat 2.5/0.5mg 3 Ml Ampul.Neb INHALE 07/16/25 16:23 3 ml ONCE ONE Administration Cyclobenzaprine HCl 5 mg 07/16/25 17:09 07/16/25 17:31 Cyclobenzaprine Hcl 5 Mg Tablet PO 07/16/25 17:10 5 mg ONCE ONE Administration Ibuprofen 400 mg 07/16/25 17:09 07/16/25 17:30 Ibuprofen 400 Mg Tablet PO 07/16/25 17:10 400 mg ONCE ONE Administration Lidocaine 1 patch 07/16/25 17:08 07/16/25 17:31 Lidocaine 4 % Patch Adh..Patch TRANSDERMA 07/16/25 17:09 1 patch ONCE ONE Administration Protocol Prednisone 50 mg 07/16/25 16:22 07/16/25 16:35 Prednisone 10 Mg Tablet PO 07/16/25 16:23 50 mg ONCE ONE Administration Medical Decision Making Medical Decision Making MDM Narrative: 75-year-old female history of asthma and diabetes presented hospital today for shortness of breath. We will plan to obtain chest x-ray basic labs for the patient and troponin will be obtained. Chest x-ray is unremarkable. Lab work significant for slight hyperglycemia at 277. I did give patient a breathing treatment some steroids. Dose of Tylenol was given. Pain still remains at this time. Patient is still complaining of pleuritic chest pain. We will obtain a D-dimer to screen patient for PE. This is lower my differential she is not tachypneic not hypoxic. Review patient's EKG. Normal sinus rhythm. No signs of STEMI. No sign of sepsis at this time. Low suspicion for sepsis D-dimer is negative. UA is negative. Patient states she is feeling a little bit better at this time. We will plan to discharge patient with azithromycin, course of prednisone. Patient does have nebulizer cartridges at home for her nebulizer. Patient agrees and understands this plan all questions were addressed. Troponins negative. Suspect muscular strain from coughing. Differential Diagnosis Differential Diagnoses: The differential diagnosis associated with the presentation includes Costochondritis, ACS, STEMI, bronchitis, pneumonia Lab Data MDM Lab Attestation statement: I reviewed the patient's lab results. 07/16/25 13:44 07/16/25 13:44 Labs: Lab Results 07/16/25 07/16/25 07/16/25 Range/Units 13:44 16:34 17:41 WBC 4.2 L (4.8-10.8) X10*3/uL RBC 4.11 L (4.20-5.50) X10*6/uL Hgb 13.2 (12.0-16.0) g/dl Hct 37.6 (37.0-47.0) % MCV 91.5 (80.0-98.0) fL MCH 32.1 (27.0-33.0) pg MCHC 35.1 H (31.0-35.0) g/dl RDW 12.4 (11.0-16.0) % Plt Count 222 (160-400) X10*3/uL MPV 9.0 L (9.4-12.3) fL Immature Gran % (Auto) 0.2 (0.0-0.4) % Neut % (Auto) 61.3 (45-73) % Lymph % (Auto) 24.8 (20-40) % [place] % (Auto) 8.9 (2-11) % Eos % (Auto) 4.1 H (0-4) % Baso % (Auto) 0.7 (0-2) % Lymph # (Auto) 1.0 L (1.2-4.9) X10*3/uL [place] # (Auto) 0.4 (0.1-1.2) X10*3/uL Eos # (Auto) 0.2 (0.0-0.4) X10*3/uL Baso # (Auto) 0.0 (0.0-0.2) X10*3/uL Abs Immat Gran (auto) 0.01 (0.00-0.03) X10*3/uL Absolute Neuts (auto) 2.6 (2.0-8.3) x10*3/uL Absolute Nucleated RBC 0.000 (0.0-0.012) X10*3/uL Nucleated RBC % (auto) 0.0 (0.0-0.2) /100WBC D-Dimer High Sensitivty < 150 NG/ML Sodium 140 (135-145) mmol/L Potassium 4.4 (3.3-5.1) mmol/L Chloride 104 (96-108) mmol/L Carbon Dioxide 25 (22-29) mmol/L Anion Gap 15 (12-20) BUN 15 (9-16) mg/dL Creatinine 0.66 (0.5-1.4) mg/dL Estim Creat Clear Calc 65.4 Estimated GFR > 60 Random Glucose 251 H (60-115) mg/dL Calcium 9.4 D (8.4-10.2) mg/dL Magnesium 1.9 (1.6-2.6) mg/dL Total Bilirubin 0.4 (0.0-1.0) mg/dL AST 30 (5-31) U/L ALT 30 (0-31) U/L Alkaline Phosphatase 78 (39-117) U/L Troponin I High Sens < 2.7 (<3.5-17.0) ng/L Total Protein 7.0 (6.5-8.0) g/dL Albumin 4.5 (3.5-5.0) g/dL Urine Color Yellow Urine Appearance Clear Urine pH 6.0 (5.0-9.0) Ur Specific [place] 1.025 (1.005-1.025) Urine Protein Negative (Neg-Trace) mg/dL Urine Glucose (UA) 100 H (Negative) mg/dL Urine Ketones Trace (Negative) mg/dL Urine Blood Negative (Negative) Urine Nitrite Negative (Negative) Ur Leukocyte Esterase Negative (Negative) Influenza Type A (PCR) NEGATIVE (Negative) Influenza Type B (PCR) NEGATIVE (Negative) RSV RNA Qual (PCR) NEGATIVE (Negative) SARS-CoV-2 RNA (RT-PCR) NEGATIVE (Negative) Independent Interpretation I performed an independent interpretation of an: Plain X-Ray Radiology Impression Discussion of test interpretation with radiology: I have reviewed the radiologist's reading. Chronic Conditions Asthma Discharge Plan Discharge Clinical Impression: Bronchitis Asthma Qualifiers: Asthma severity: mild Asthma persistence: intermittent Asthma complication type: uncomplicated Qualified Code(s): J45.20 - Mild intermittent asthma, uncomplicated Patient Disposition: Home, Self-Care Instructions: Acute Bronchitis (ED) Additional Instructions: No signs of pneumonia on xray, No UTI, I suspect this is rib muscular pain from coughing. Take the anitbiotic and prednisone as instructed. Use nebulizer as needed for shortness of breath. Follow up with your primary care doctor. Prescriptions: New prednisone 20 mg tablet 40 mg PO DAILY 5 Days Qty: 10 0RF azithromycin 250 mg tablet See Rx Instructions .ROUTE .COMPLEX Qty: 6 0RF Rx Instructions: For 250 mg dose pack: take 500 mg today (day 1), then 250 mg for 4 days (days 2-5) acetaminophen 500 mg tablet 1,000 mg PO Q8H 10 Days Qty: 60 0RF lidocaine 5 % adhesive patch,medicated 1 patch topical DAILY Qty: 15 0RF Rx Instructions: leave on most painful area for up to 12 hrs No Action Eliquis 5 mg tablet 5 mg PO BID Qty: 60 1RF diltiazem HCl 240 mg capsule,extended release 24 hr 240 mg PO QAM Qty: 90 1RF Dulera 200-5 mcg/actuation HFA aerosol inhaler 2 puff inhalation BID lorazepam 0.5 mg tablet 0.5 mg PO DAILY PRN ipratropium-albuterol 18-103 mcg/actuation aerosol inhalation cholecalciferol (vitamin D3) 25 mcg (1,000 unit) capsule 25 mcg PO DAILY cyanocobalamin (vitamin B-12) 1,000 mcg capsule 1,000 mcg PO DAILY sertraline 100 mg tablet 100 mg PO DAILY trazodone 100 mg tablet 100 mg PO BEDTIME PRN All Day Allergy (cetirizine) 10 mg capsule 10 mg PO DAILY montelukast [Singulair] 10 mg tablet 10 mg PO DAILY 30 Days Qty: 30 3RF ipratropium-albuterol 0.5 mg-3 mg(2.5 mg base)/3 mL solution for nebulization 3 ml inhalation Q6H PRN (Reason: wheezing) Print Language: French
--- NOTE | 2025-07-16 13:21 | ECG_ITS ---
Test Reason : sob Blood Pressure : */* mmHG Vent. Rate : 81 BPM Atrial Rate : 81 BPM P-R Int : 156 ms QRS Dur : 102 ms QT Int : 380 ms P-R-T Axes : 102 206 128 degrees QTcB Int : 441 ms Suspect limb lead reversal, interpretation assumes no reversal Normal sinus rhythm Septal infarct (cited on or before 29-Jan-2024) Lateral infarct , age undetermined Abnormal ECG When compared with ECG of 04-Aug-2024 15:28, Lateral infarct is now Present Referred By: Josefina Casey Electronically Signed By: CARLOS PEACOCK
--- NOTE | 2025-07-16 13:42 | MHC.EDTECH ---
delay ekg due to machine not working nurse aware
[2025-07-16 13:56] LABS: Hematocrit 37.6 % (37.0-47.0); Hemoglobin 13.2 g/dl (12.0-16.0); Imm Gran Abs Auto 0.01 X10*3/uL (0.00-0.03); Imm Gran Pct Auto 0.2 % (0.0-0.4); Lymphocytes Absolute Auto 1.0 X10*3/uL (1.2-4.9); MANUAL DIFF FLAG NO; Mean Corpuscular HGB Conc 35.1 g/dl (31.0-35.0); Mean Corpuscular Hemoglobin 32.1 pg (27.0-33.0); Mean Corpuscular Volume 91.5 fL (80.0-98.0); NRBC Abs Auto 0.000 X10*3/uL (0.0-0.012); NRBC Pct Auto 0.0 /100WBC (0.0-0.2); Platelet Count 222 X10*3/uL (160-400); Red Blood Count 4.11 X10*6/uL (4.20-5.50); White Blood Count 4.2 X10*3/uL (4.8-10.8)
[2025-07-16 14:16] LABS: Troponin-I High Sensitivity < 2.7 ng/L (<3.5-17.0)
[2025-07-16 14:20] LABS: Alanine Aminotransferase 30 U/L (0-31); Albumin Level 4.5 g/dL (3.5-5.0); Alkaline Phosphatase 78 U/L (39-117); Anion Gap 15 (12-20); Aspartate Amino Transferase 30 U/L (5-31); Blood Urea Nitrogen 15 mg/dL (9-16); Calcium 9.4 mg/dL (8.4-10.2); Carbon Dioxide 25 mmol/L (22-29); Chloride 104 mmol/L (96-108); Creatinine Clr Calc Pharmacy 65.4; Estimated Glomerular Filt Rate > 60; Magnesium 1.9 mg/dL (1.6-2.6); Potassium 4.4 mmol/L (3.3-5.1); Sodium 140 mmol/L (135-145); Total Protein 7.0 g/dL (6.5-8.0)
[2025-07-16 14:33] LABS: Resp Syncy Virus RNA Qual PCR NEGATIVE (Negative); SARS COV2 PCR INHOUSE NEGATIVE (Negative)
--- OUTSIDE RECORDS SUMMARY | 2025-07-16 16:07 | XMS_ITS | Encounter Summary ---
Author Organization [facility] Address [address] [place] [phone] Phone Care Team Providers Care Structural Engineering Project Manager Name Role Phone Silva Dhaliwal MD Primary Care Provider [phone] Reason for Referral * MRI/CAT Scan - Closed Specialty Diagnoses / Procedures Referred By Vianca garcia Referred To Contact Radiology Diagnoses Epigastric pain LLQ pain Procedures CT Abdomen/Pelvis CHG CT SCAN,ABDOMENT AND PELVIS,W CONTRAST CHG CT SCAN,ABDOMENT AND PELVIS,W/O CONTRAST CHG CT SCAN,ABDOMENT AND PELVIS,COMBO Criselda Carrasco PA Phone: tel: fax: Referral ID Status Reason Start Date Expiration Date Visits Re quested Visits Authorized [id number] Closed 11/03/2021 06/05/[phone] Encounter Details Date Type Department Care Team (Latest Contact Info) Description 12/05/2021 Transcribe Orders Virtual Department [address] [place] [address] Criselda Carrasco PA [address] [place] [address] Epigastric pain (Primary Dx); LLQ pain Social History Tobacco Use Types Packs/Day Years Used Date Smoking Tobacco: Former Cigarettes Q uit: 02/02/2009 Smokeless Tobacco: Never Alcohol Use Standard Drinks/Week Comments Yes 0 (1 standard drink = 0.6 oz pur e alcohol) Comments No Sex and Gender Information Value Date Recorded Sex Assigned at Female 05/19/2019 5:07 PM EDT Legal Sex Female 6:13 PM EST Gender Identity Female 05/19/2019 5:07 PM EDT Sexual Orientation Straight 05/19/2019 5: 07 PM EDT documented as of this encounter Plan of Treatment Not on file documented as of this encounter Results * CT ABDOMEN/PELVIS WITH CONTRAST (12/14/2021 9:06 AM EDT) Anatomical Region Laterality Modality Abdomen, Pelvis Computed Tomogra phy 12/14/2021 11:1 8 AM EDT Impressions 12/14/2021 11:32 AM EDT No acute intra-abdominal pathology. Narrative 12/14/2021 11:[address] ABDOMEN/PELVIS WITH CONTRAST TECHNIQUE: Multidetector-row CT of the abdomen and pelvis was performed after administration of intravenous contrast using tailored dose modulation techniques. Images were reconstructed in the axial, coronal, and sagittal planes. COMPARISON: CT abdomen/pelvis May 19, 2019 FINDINGS: Lower Chest: Small unchanged bilateral posterior fat-containing Bochdalek hernias. Scattered linear opacities in the lung bases, likely atelectasis versus scarring. No consolidation or pleural effusions. Liver: Unchanged dystrophic calcification at segment 7. No focal lesions. Biliary: No biliary ductal dilatation. Spleen: No splenomegaly or focal lesions. Pancreas: No masses or ductal dilatation. Adrenal Glands: No nodules. Kidneys/Ureters: No solid masses, stones, or hydronephrosis. Bowel: No distention or wall thickening. No evidence of appendicitis. Peritoneum/Retroperitoneum: No masses, pneumoperitoneum, or fluid. Lymph Nodes: No lymphadenopathy. Pelvic Organs/Bladder: No mass. Vessels: No abdominal aortic aneurysm. Bones/Soft Tissues: No destructive osseous lesions. Procedure Note Mayuri Ngo MD - 12/14/2021 CT ABDOMEN/PELVIS WITH CONTRAST TECHNIQUE: Multidetector-row CT of the abdomen and pelvis was performedafter administration of intravenous contrast using tailored dosemodulation techniques. Images were reconstructed in the axial, coronal,and sagittal planes. COMPARISON: CT abdomen/pelvis May 19, 2019 FINDINGS: Lower Chest: Small unchanged bilateral posterior fat-containing Bochdalekhernias. Scattered linear opacities in the lung bases, likely atelectasisversus scarring. No consolidation or pleural effusions. Liver: Unchanged dystrophic calcification at segment 7. No focallesions. Biliary: No biliary ductal dilatation. Spleen: No splenomegaly or focal lesions. Pancreas: No masses or ductal dilatation. Adrenal Glands: No nodules. Kidneys/Ureters: No solid masses, stones, or hydronephrosis. Bowel: No distention or wall thickening. No evidence of appendicitis. Peritoneum/Retroperitoneum: No masses, pneumoperitoneum, or fluid. Lymph Nodes: No lymphadenopathy. Pelvic Organs/Bladder: No mass. Vessels: No abdominal aortic aneurysm. Bones/Soft Tissues: No destructive osseous lesions. IMPRESSION: No acute intra-abdominal pathology. us Criselda ROJAS IMG CT ABD/PELVIS Final Res ult documented in this encounter Visit Diagnoses Diagnosis Epigastric pain- Primary Abdominal pain, epigastric LLQ pain Abdominal pain, left lower quadrant Epigastric pain Abdominal pain, epigastric LLQ pain Abdominal pain, left lower quadrant documented in this encounter Care Teams Structural Engineering Project Manager Relationship Specialty Start Date End Date Silva Dhaliwal MD [address] [place] [address] PCP - General Family Medicine 02/07/18 documented as of this encounter Additional Source Comments The information contained in this document represents components of the legal health record. It is not the complete legal health record.[facility]
--- OUTSIDE RECORDS SUMMARY | 2025-07-16 16:07 | XMS_ITS | Encounter Summary ---
Author Organization [facility] Address [address] [place] [phone] Phone Care Team Providers Care Signals Intelligence Analysis Manager Name Role Phone Silva Dhaliwal MD Primary Care Provider [phone] Reason for Referral * Hospital - Outpatient - Closed Specialty Diagnoses / Procedures Referred By Vianca t Referred To Contact Radiology Diagnoses Spinal stenosis, lumbar region with neurogenic claudication Procedures MRI Lumbar Spine CHG MRI, LUMBAR SPINE CHG MRI, LUMBAR SPINE COMBO Akira Tilley MD Phone: tel: fax: mailto:[email or web address] Referral ID Status Reason Start Date Expiration Date Visits Re quested Visits Authorized [id number] Closed 11/16/2021 01/15/[phone] Encounter Details Date Type Department Care Team (Late st Contact Info) Description 11/16/2021 Transcribe Orders Virtual Department [address] [place] [address] Akira Tilley MD [address] [place] [phone] [email or web address] Spinal stenosis, lumbar region with neurogenic claudication (Primary Dx) Social History Tobacco Use Types Packs/Day Years [...] documented as of this encounter Results * MRI LUMBAR SPINE (NEURO) WITHOUT CONTRAST (12/06/2021 1:02 PM EDT) Anatomical Region Laterality Modality L-spine Magnetic Resonan ce 12/06/2021 5:13 PM EDT Impressions 12/06/2021 5:23 PM EDT Multilevel degenerative changes overall progressed from 04/06/2011, resulting in the following: *Possible impingement on the descending right L4 nerve root by an L3-4 asymmetric right paracentral/foraminal disc bulge. *Possible impingement on the descending left S1 nerve root by a tiny superimposed L5-S1 disc protrusion. *L5-S1 moderate left neural foraminal stenosis. Narrative 12/06/2021 5:23 PM EDT MRI LUMBAR SPINE (NEURO) WITHOUT CONTRAST TECHNIQUE: Multi-sequence, multi-planar MRI of the lumbar spine was performed without intravenous contrast. COMPARISON: MR L-SPINE C- FINDINGS: LUMBAR SPINE: Alignment and Vertebrae: 3 mm retrolisthesis of L2 on L3, 2 mm retrolisthesis of L3 on L4, unchanged. No compression fracture. Marrow: Fatty degenerative change at the right aspect of the L3-4 endplates, slightly increased from 04/06/2011. No evidence of focal marrow edema. Discs and Endplates: Mild to moderate height loss at L5-S1, unchanged. Otherwise no significant intervertebral disc height loss. Disc desiccation at L2-3, L3-4, L4- 5, L5-S1. Conus: Normal position. No signal abnormality. Soft Tissues: No prevertebral edema. Other Findings: None. Findings by level: T12-L1: No significant posterior disc abnormality or facet arthropathy. No neural foraminal or spinal canal stenosis. L1-L2: No significant posterior disc abnormality or facet arthropathy. No neural foraminal or spinal canal stenosis. L2-L3: Symmetric tiny posterior disc bulge and no significant facet arthropathy resulting in no neural foraminal or spinal canal stenosis. This is new from 04/06/2011 L3-L4: Posterior disc bulge asymmetrically involving the right paracentral and right foraminal regions possibly impinge on the descending right L4 nerve root, ligamentum flavum thickening, and mild bilateral facet arthropathy with trace left effusion, resulting in no neural foraminal stenosis and mild spinal canal stenosis. This is new from 04/06/2011. L4-L5: No significant posterior disc abnormality. Ligamentum flavum thickening and mild bilateral facet arthropathy, resulting in no neural foraminal or spinal canal stenosis. L5-S1: Symmetric posterior disc bulge with tiny (2 mm) superimposed left foraminal protrusion possibly impinging on the descending left S1 nerve root, ligamentum flavum thickening, and mild bilateral facet arthropathy, resulting in moderate left neural foraminal stenosis and no spinal canal stenosis. Procedure Note Gaurav Garcia MD - 12/06/2021 MRI LUMBAR SPINE (NEURO) WITHOUT CONTRAST TECHNIQUE: Multi-sequence, multi-planar MRI of the lumbar spine wasperformed without intravenous contrast. COMPARISON: MR L-SPINE C- FINDINGS: LUMBAR SPINE: Alignment and Vertebrae: 3 mm retrolisthesis of L2 on L3, 2 mmretrolisthesis of L3 on L4, unchanged. No compression fracture. Marrow: Fatty degenerative change at the right aspect of the L3-4endplates, slightly increased from 04/06/2011. No evidence of focal marrowedema. Discs and Endplates: Mild to moderate height loss at L5-S1, unchanged.Otherwise no significant intervertebral disc height loss. Disc desiccationat L2-3, L3-4, L4- 5, L5-S1. Conus: Normal position. No signal abnormality. Soft Tissues: No prevertebral edema. Other Findings: None. Findings by level: T12-L1: No significant posterior disc abnormality or facet arthropathy. Noneural foraminal or spinal canal stenosis. L1-L2: No significant posterior disc abnormality or facet arthropathy. Noneural foraminal or spinal canal stenosis. L2-L3: Symmetric tiny posterior disc bulge and no significant facetarthropathy resulting in no neural foraminal or spinal canal stenosis.This is new from 04/06/2011 L3-L4: Posterior disc bulge asymmetrically involving the right paracentraland right foraminal regions possibly impinge on the descending right S2vwglw root, ligamentum flavum thickening, and mild bilateral facetarthropathy with trace left effusion, resulting in no neural foraminalstenosis and mild spinal canal stenosis. This is new from 04/06/2011. L4-L5: No significant posterior disc abnormality. Ligamentum flavumthickening and mild bilateral facet arthropathy, resulting in no neuralforaminal or spinal canal stenosis. L5-S1: Symmetric posterior disc bulge with tiny (2 mm) superimposed leftforaminal protrusion possibly impinging on the descending left S1 nerveroot, ligamentum flavum thickening, and mild bilateral facet arthropathy,resulting in moderate left neural foraminal stenosis and no spinal canalstenosis. IMPRESSION: Multilevel degenerative changes overall progressed from 04/06/2011,resulting in the following: *Possible impingement on the descending right L4 nerve root by an L3-4asymmetric right paracentral/foraminal disc bulge. *Possible impingement on the descending left S1 nerve root by a tinysuperimposed L5-S1 disc protrusion. *L5-S1 moderate left neural foraminal stenosis. us Akira Tilley MD IMG MR XSPECIALTY Final Res ult documented in this encounter Visit Diagnoses Diagnosis Spinal stenosis, lumbar region with neurogenic claudication- Primary Spinal stenosis, lumbar region with neurogenic claudication documented in this encounter Care Teams Signals Intelligence Analysis Manager Relationship Specialty Start Date End Date Silva Dhaliwal MD [address] [place] [address] PCP - General Family Medicine 02/07/18 documented as of this encounter Additional Source Comments The information contained in this document represents components of the legal health record. It is not the complete legal health record.[facility]
--- OUTSIDE RECORDS SUMMARY | 2025-07-16 16:07 | XMS_ITS | Encounter Summary ---
Author Organization [facility] Address [address] [facility] [address] [place] [address] Phone Care Team Providers Care Public Speaking Instructor Name Role Phone Silva Dhaliwal MD Primary Care Provider +1- [phone] Encounter Details Date Type Department Care Team (Late st Contact Info) Description 12/18/2022 Procedure Pass [facility] Endoscopy Admitting Dept Virtual Department [address] [place] [address] Social History Tobacco Use Types Packs/Day Years Used Date Smoking Tobacco: Former Cigarettes Q uit: 02/02/2009 Smokeless Tobacco: Never Alcohol Use Standard Drinks/Week Comments Yes 0 (1 standard drink = 0.6 oz pur e alcohol) Education Answer Date Recorded Are you interested in more education? Not on evans e 12/17/2022 Are you concerned about learning? Not on file 12/17/2022 No 12/17/2022 No 12/17/2022 Comments No Sex and Gender Information Value Date Recorded Sex Assigned at Female 05/19/2019 5:07 PM EDT Legal Sex Female 6:13 PM EST Gender Identity Female 05/19/2019 5:07 PM EDT Sexual Orientation Straight 05/19/2019 5: 07 PM EDT documented as of this encounter Plan of Treatment Not on file documented as of this encounter Visit Diagnoses Not on filedocumented in this encounter Care Teams Public Speaking Instructor Relationship Specialty Start Date End Date Silva Dhaliwal MD [address] [place] [address] PCP - General Family Medicine 02/07/18 documented as of this encounter Additional Source Comments The information contained in this document represents components of the legal health record. It is not the complete legal health record.[facility]
--- OUTSIDE RECORDS SUMMARY | 2025-07-16 16:08 | XMS_ITS | Encounter Summary ---
Author Organization [facility] Address [address] [facility] [address] [place] [address] Phone Care Team Providers Care Financial Risk Manager Name Role Phone Silva Dhaliwal MD Primary Care Provider +1- [phone] Encounter Details Date Type Department Care Team (Latest Contact Info) Description 01/10/2022 Transcribe Orders Virtual Department [address] [place] [address] Criselda Carrasco PA [address] [place], [place] [id number] Pre-operative laboratory examination (Primary Dx) Social History Tobacco Use Types [...] documented as of this encounter Visit Diagnoses Diagnosis Pre-operative laboratory examination- Primary Pre-procedural laboratory examination documented in this encounter Care Teams Financial Risk Manager Relationship Specialty Start Date End Date Silva Dhaliwal MD [address] [place] [address] PCP - General Family Medicine 02/07/18 documented as of this encounter Additional Source Comments The information contained in this document represents components of the legal health record. It is not the complete legal health record.[facility]
--- OUTSIDE RECORDS SUMMARY | 2025-07-16 16:08 | XMS_ITS | Encounter Summary ---
Author Organization [facility] Address [address] [facility] [address] [place] [address] Phone Care Team Providers Care Mold Stamper And Repairer Name Role Phone Silva Dhaliwal MD Primary Care Provider +1- [phone] Encounter Details Date Type Department Care Team (Late st Contact Info) Description 01/03/2022 Procedure Pass [facility], Ct Scan - [facility] [address] [place] [address] Social History Tobacco Use Types Packs/Day Years [...] PM EDT documented as of this encounter Functional Status * Calculated C-SSRS Risk Score (Lifetime/Recent) Answer Date of Assessment Author No Risk Indicated 01/03/2022 3:25 PM EDT Marina Oliva, RN * George Suicide Severity Rating Scale (Screener/Recent Self-Report) Question Answer Date of Assessment Author 1. Wish to be (Past 1 Month) No 022 3:25 PM EDT Marina Lai, RN 2. Non-Specific Active Suici smita Thoughts (Past 1 Month) No 01/03/2022 3:25 PM EDT Marina Lai, RN 6. Suicidal Behavior (Lifetime) No 3:25 PM EDT Marina Lai, RN documented as of this encounter Plan of Treatment Not on file documented as of this encounter Visit Diagnoses Not on filedocumented in this encounter Care Teams Mold Stamper And Repairer Relationship Specialty Start Date End Date Silva Dhaliwal MD [facility] [place] [address] PCP - General Family Medicine 02/07/18 documented as of this encounter Additional Source Comments The information contained in this document represents components of the legal health record. It is not the complete legal health record.[facility]
--- OUTSIDE RECORDS SUMMARY | 2025-07-16 16:08 | XMS_ITS | Encounter Summary ---
Author Organization [facility] Address [address] [facility] [address] [place] [address] Phone Care Team Providers Care Senior Painter Name Role Phone Silva Dhaliwal MD Primary Care Provider +1- [phone] Encounter Details Date Type Department Care Team (Latest Contact Info) Description 05/08/2024 Transcribe Orders Virtual Department [address] [place] [address] Silva Dhaliwal MD [address] [place], [place] [id number] Breast screening (Primary Dx) Social History Tobacco Use Types [...] on file 12/17/2022 No 12/17/2022 No 12/17/2022 Digital Access Answer Date Recorded No 01/08/2023 No 01/08/2023 Reliable internet access at home? Not on file 01/08/2023 Device with a working camera? Not on file Intimate Partner Violence Answer Date R ecorded Are you denied basic needs s uch as food, clothing, or medical care? No 01/07/2023 In the past 12 months have y ou been in a relationship with a person who hurts, threatens, or tries to control you? No 01/07/2023 Are you denied basic needs s uch as food, clothing, or medical care? No 01/07/2023 In the past 12 months have y ou been in a relationship with a person who hurts, threatens, or tries to control you? No 01/07/2023 Comments No Sex and Gender Information Value Date Recorded Sex Assigned at Female 05/19/2019 5:07 PM EDT Legal Sex Female 6:13 PM EST Gender Identity Female 05/19/2019 5:07 PM EDT Sexual Orientation Straight 05/19/2019 5: 07 PM EDT documented as of this encounter Plan of Treatment Not on file documented as of this encounter Visit Diagnoses Diagnosis Breast screening- Primary Breast screening, unspecified documented in this encounter Care Teams Senior Painter Relationship Specialty Start Date End Date Silva Dhaliwal MD [address] [place] [address] PCP - General Family Medicine 02/07/18 documented as of this encounter Additional Source Comments The information contained in this document represents components of the legal health record. It is not the complete legal health record.[facility]
--- OUTSIDE RECORDS SUMMARY | 2025-07-16 16:08 | XMS_ITS | Encounter Summary ---
Author Organization [facility] Address [address] [facility] [address] [place] [address] Phone Care Team Providers Care Aircraft Systems Repairer Name Role Phone Silva Dhaliwal MD Primary Care Provider +1- [phone] Encounter Details Date Type Department Care Team (Late st Contact Info) Description 10/29/2024 Procedure Pass [facility], Ct Scan - [facility] [address] [place] [address] Social History Tobacco Use Types Packs/Day Years [...] on filedocumented in this encounter Care Teams Aircraft Systems Repairer Relationship Specialty Start Date End Date Silva Dhaliwal MD [address] [place] [address] PCP - General Family Medicine 02/07/18 documented as of this encounter Additional Source Comments The information contained in this document represents components of the legal health record. It is not the complete legal health record.[facility]
--- OUTSIDE RECORDS SUMMARY | 2025-07-16 16:08 | XMS_ITS | Encounter Summary ---
Author Organization [facility] Address [address] [facility] [address] [place] [address] Phone Care Team Providers Care Associate Counsel Name Role Phone Silva Dhaliwal MD Primary Care Provider +1- [phone] Encounter Details Date Type Department Care Team (Late st Contact Info) Description 04/25/2020 Procedure Pass [facility], [facility] [address] [place] [address] Social History Tobacco Use Types Packs/Day Years [...] Diagnoses Not on filedocumented in this encounter Additional Health Concerns Infection Onset Date Last Indicated Resolved Time CoV-Risk 04/15/2021 04/15/2021 04/25/2021 1:24 AM EDT CoV-Risk 07/14/2021 07/14/2021 07/24/2021 1:22 AM EST documented as of this encounter Care Teams Associate Counsel Relationship Specialty Start Date End Date Silva Dhaliwal MD [address] [place] [address] PCP - General Family Medicine 02/07/18 documented as of this encounter Additional Source Comments The information contained in this document represents components of the legal health record. It is not the complete legal health record.[facility]
--- OUTSIDE RECORDS SUMMARY | 2025-07-16 16:08 | XMS_ITS | Encounter Summary ---
Author Organization [facility] Address [address] [facility] [address] [place] [address] Phone Care Team Providers Care Milk Receiver Name Role Phone Silva Dhaliwal MD Primary Care Provider +1- [phone] Encounter Details Date Type Department Care Team (Late st Contact Info) Description 06/26/2022 Procedure Pass [facility], [facility] - [address] [address] Social History Tobacco Use Types Packs/Day Years [...] on filedocumented in this encounter Care Teams Milk Receiver Relationship Specialty Start Date End Date Silva Dhaliwal MD [address] [place] [address] PCP - General Family Medicine 02/07/18 documented as of this encounter Additional Source Comments The information contained in this document represents components of the legal health record. It is not the complete legal health record.[facility]
--- OUTSIDE RECORDS SUMMARY | 2025-07-16 16:08 | XMS_ITS | Encounter Summary ---
Author Organization [facility] Address [address] [facility] [address] [place] [address] Phone Care Team Providers Care Microfilm Duplicating Unit Supervisor Name Role Phone Silva Dhaliwal MD Primary Care Provider +1- [phone] Encounter Details Date Type Department Care Team (Late st Contact Info) Description 03/29/2020 Ancillary Orders Virtual Department [address] [place] [address] Silva Dhaliwal MD [address] [place] [address] Breast screening Social History Tobacco Use Types Packs/Day Years [...] documented as of this encounter Results * BI MAMMOGRAM SCREENING WITH TOMOSYNTHESIS WITH CAD (BILATERAL) (05/25/2020 10:52 AM EDT) Anatomical Region Laterality Modality Breast Left, Breast Right, Breast Bilateral Bila teral Mammography 05/25/2020 10:5 7 AM EDT Impressions 05/25/2020 11:01 AM EDT No mammographic evidence of malignancy. Recommend routine annual surveillance. BI-RADS CATEGORY 2 - BENIGN DENSITY: There are scattered fibroglandular densities. Narrative 05/25/2020 11:01 AM EDT 69-year-old female with no current breast symptoms. Comparison made to previous on 04/17/2018 and as far back as 10/15/2013. Interpretation made in conjunction with computer-aided detection and tomosynthesis. There are scattered areas of fibroglandular density. Slight increase in number of the scattered punctate and macro coarse calcifications throughout the left upper outer breast. No suspicious morphologies. Chronic bilateral vascular calcifications. There are no suspicious masses, areas of architectural distortion, or suspicious clusters of microcalcifications. us Silva Dhaliwal MD IMG MG EXAMS Final Resu lt documented in this encounter Visit Diagnoses Diagnosis Breast screening Breast screening, unspecified Breast screening Breast screening, unspecified documented in this encounter Additional Health Concerns Infection Onset Date Last Indicated Resolved Time CoV-Risk 04/15/2021 04/15/2021 04/25/2021 1:24 AM EDT CoV-Risk 07/14/2021 07/14/2021 07/24/2021 1:22 AM EST documented as of this encounter Care Teams Microfilm Duplicating Unit Supervisor Relationship Specialty Start Date End Date Silva Dhaliwal MD [address] [place] [address] PCP - General Family Medicine 02/07/18 documented as of this encounter Additional Source Comments The information contained in this document represents components of the legal health record. It is not the complete legal health record.[facility]
--- OUTSIDE RECORDS SUMMARY | 2025-07-16 16:08 | XMS_ITS | Encounter Summary ---
Author Organization [facility] Address [address] [facility] [address] [place] [address] Phone Care Team Providers Care Liquor Department Manager Name Role Phone Silva Dhaliwal MD Primary Care Provider +1- [phone] Reason for Referral * MRI/CAT Scan - Closed Specialty Diagnoses / Procedures Referred By Vianca garcia Referred To Contact Radiology Diagnoses LLQ abdominal pain Procedures CT Abdomen/Pelvis CHG CT SCAN,ABDOMENT AND PELVIS,W CONTRAST CHG CT SCAN,ABDOMENT AND PELVIS,COMBO CHG CT SCAN,ABDOMENT AND PELVIS,W/O CONTRAST Criselda Carrasco PA [address] [place] [address] Phone: tel: fax: Referral ID Status Reason Start Date Expiration Date Visits Re quested Visits Authorized [id number] Closed 10/29/2024 02/24/2025 1 1 Encounter Details Date Type Department Care Team (Latest Contact Info) Description 10/29/2024 Transcribe Orders Virtual Department [address] [place] [address] Criselda Carrasco PA [address] [place] [address] LLQ abdominal pain (Primary Dx) Social History Tobacco Use Types [...] encounter Results * CT ABDOMEN/PELVIS WITH CONTRAST (11/10/2024 11:52 AM EDT) Anatomical Region Laterality Modality Abdomen, Pelvis Computed Tomogra phy 11/12/2024 10:3 0 AM EDT Impressions 11/12/2024 10:49 AM EDT 1. No acute abdominal or pelvic abnormality is identified. 2. Heterogeneity involving the liver, likely to represent focal fatty infiltration. 3. Renal cortical cysts. 4. Stigmata of prior granulomatous infection. 5. Left gluteus medius lipoma. Narrative 11/12/2024 10:[address] ABDOMEN/PELVIS WITH CONTRAST Referring clinician's provided indication for this examination in Epic: Outside Radiology Order; llq abdomen pain. TECHNIQUE: Multidetector-row CT of the abdomen and pelvis was performed after administration of intravenous contrast using tailored dose modulation techniques. Images were reconstructed in the axial, coronal, and sagittal planes. COMPARISON: CT abdomen/pelvis dated September 06, 2023. CT abdomen/pelvis dated July 15, 2022. CT abdomen/pelvis dated January 03, 2022. FINDINGS: DEVICES/TUBES/LINES: None. LUNG BASES: The heart size is normal without pericardial effusion. No coronary artery calcifications are present. No esophageal or paraspinal abnormality. The lung bases are clear. There is a granuloma identified within the right lower lobe measuring 4 mm (image 20, series 3). Several additional granulomas are present. LIVER: The liver is stable in size, smooth in surface contour. There is heterogeneity identified within the liver, with findings possibly representing focal fatty deposition, along the upper subcapsular medial liver (image 56, series 3), September conspicuous as compared to prior, but present on prior exam. There is a coarse calcification again identified within hepatic segment 7 (image 69, series 3). No intrahepatic biliary ductal dilatation. BILIARY: Nondilated gallbladder. No calcifications, wall thickening or gross inflammation. No extrahepatic biliary ductal dilatation. PANCREAS: No duct dilatation, mass lesions or adjacent inflammation. SPLEEN: No splenomegaly or focal splenic lesions. RENAL: No calcifications, hydronephrosis, masses or perinephric collections. There are a few small renal cortical cysts. One is noted within the inferior lateral aspect of the right kidney measures 5 mm (image 166, series 3). No ureteral dilation or focal lesion. ADRENAL: No nodules or thickening. MESENTERY/RETROPERITONEUM: No free fluid or free air. No masses. No retroperitoneal hematoma. NODES: No adenopathy. VASCULAR: The aorta is nonaneurysmal. Moderate vascular calcifications. Incidental retroaortic left renal vein. BOWEL: No mechanical bowel obstruction is present. No bowel wall thickening. No acute gastric or small bowel abnormality. Unremarkable appearance of the colon. No wall thickening, focal lesions or acute inflammation. The terminal ileum is normal. The appendix is normal. PELVIS: The urinary bladder is without wall thickening or luminal abnormality. The pelvic viscera are unremarkable. No free fluid. SOFT TISSUES: No inguinal or abdominal wall hernia. There is redemonstration of a left-sided gluteus medius lipoma measuring 33 x 66 mm (image 57, series 2). BONES: Minor degenerative changes, no suspicious lesions. Spinal curvature convexity to the left. Procedure Note Nine, Peter Fermin MD - 11/12/2024 CT ABDOMEN/PELVIS WITH CONTRAST Referring clinician's provided indication for this examination in Epic:Outside Radiology Order; llq abdomen pain. TECHNIQUE: Multidetector-row CT of the abdomen and pelvis was performedafter administration of intravenous contrast using tailored dosemodulation techniques. Images were reconstructed in the axial, coronal,and sagittal planes. COMPARISON: CT abdomen/pelvis dated September 06, 2023. CT abdomen/pelvisdated July 15, 2022. CT abdomen/pelvis dated January 03, 2022. FINDINGS: DEVICES/TUBES/LINES: None. LUNG BASES: The heart size is normal without pericardial effusion. Nocoronary artery calcifications are present. No esophageal or paraspinalabnormality. The lung bases are clear. There is a granuloma identifiedwithin the right lower lobe measuring 4 mm (image 20, series 3). Severaladditional granulomas are present. LIVER: The liver is stable in size, smooth in surface contour. There isheterogeneity identified within the liver, with findings possiblyrepresenting focal fatty deposition, along the upper subcapsular medialliver (image 56, series 3), September conspicuous as compared to prior, butpresent on prior exam. There is a coarse calcification again identifiedwithin hepatic segment 7 (image 69, series 3). No intrahepatic biliaryductal dilatation. BILIARY: Nondilated gallbladder. No calcifications, wall thickening orgross inflammation. No extrahepatic biliary ductal dilatation. PANCREAS: No duct dilatation, mass lesions or adjacent inflammation. SPLEEN: No splenomegaly or focal splenic lesions. RENAL: No calcifications, hydronephrosis, masses or perinephriccollections. There are a few small renal cortical cysts. One is notedwithin the inferior lateral aspect of the right kidney measures 5 mm(image 166, series 3). No ureteral dilation or focal lesion. ADRENAL: No nodules or thickening. MESENTERY/RETROPERITONEUM: No free fluid or free air. No masses. Noretroperitoneal hematoma. NODES: No adenopathy. VASCULAR: The aorta is nonaneurysmal. Moderate vascular calcifications.Incidental retroaortic left renal vein. BOWEL: No mechanical bowel obstruction is present. No bowel wallthickening. No acute gastric or small bowel abnormality. Unremarkableappearance of the colon. No wall thickening, focal lesions or acuteinflammation. The terminal ileum is normal. The appendix is normal. PELVIS: The urinary bladder is without wall thickening or luminalabnormality. The pelvic viscera are unremarkable. No free fluid. SOFT TISSUES: No inguinal or abdominal wall hernia. There isredemonstration of a left-sided gluteus medius lipoma measuring 33 x 66 mm(image 57, series 2). BONES: Minor degenerative changes, no suspicious lesions. Spinalcurvature convexity to the left. IMPRESSION: 1. No acute abdominal or pelvic abnormality is identified. 2. Heterogeneity involving the liver, likely to represent focal fattyinfiltration. 3. Renal cortical cysts. 4. Stigmata of prior granulomatous infection. 5. Left gluteus medius lipoma. us Criselda ROJAS IMG CT ABD/PELVIS Final Res ult documented in this encounter Visit Diagnoses Diagnosis LLQ abdominal pain- Primary Abdominal pain, left lower quadrant LLQ abdominal pain Abdominal pain, left lower quadrant documented in this encounter Care Teams Liquor Department Manager Relationship Specialty Start Date End Date Silva Dhaliwal MD [facility] [place] [address] PCP - General Family Medicine 02/07/18 documented as of this encounter Additional Source Comments The information contained in this document represents components of the legal health record. It is not the complete legal health record.[facility]
--- OUTSIDE RECORDS SUMMARY | 2025-07-16 16:08 | XMS_ITS | Encounter Summary ---
Author Organization [facility] Address [address] [facility] [address] [place] [address] Phone Care Team Providers Care Barmaid Name Role Phone Silva Dhaliwal MD Primary Care Provider +1- [phone] Encounter Details Date Type Department Care Team (Late st Contact Info) Description 11/16/2021 Procedure Pass [facility] - [address] [address] Social History Tobacco Use Types Packs/Day Years [...] on filedocumented in this encounter Care Teams Barmaid Relationship Specialty Start Date End Date Silva Dhaliwal MD [address] [place] [address] PCP - General Family Medicine 02/07/18 documented as of this encounter Additional Source Comments The information contained in this document represents components of the legal health record. It is not the complete legal health record.[facility]
--- OUTSIDE RECORDS SUMMARY | 2025-07-16 16:08 | XMS_ITS | Encounter Summary ---
Author Organization [facility] Address [address] [facility] [address] [place] [address] Phone Care Team Providers Care Senior Operations Manager Name Role Phone Silva Dhaliwal MD Primary Care Provider +1- [phone] Encounter Details Date Type Department Care Team (Late st Contact Info) Description 12/05/2021 Procedure Pass [facility], Ct Scan - [address] [address] Social History Tobacco Use Types Packs/Day Years [...] on filedocumented in this encounter Care Teams Senior Operations Manager Relationship Specialty Start Date End Date Silva Dhaliwal MD [address] [place] [address] PCP - General Family Medicine 02/07/18 documented as of this encounter Additional Source Comments The information contained in this document represents components of the legal health record. It is not the complete legal health record.[facility]
--- OUTSIDE RECORDS SUMMARY | 2025-07-16 16:09 | XMS_ITS | Encounter Summary ---
Author Organization [facility] Address [address] [facility] [address] [place] [address] Phone Care Team Providers Care Leave Manager Name Role Phone Silva Dhaliwal MD Primary Care Provider +1- [phone] Encounter Details Date Type Department Care Team (Late st Contact Info) Description 02/12/2019 Procedure Pass [facility] Endoscopy Admitting Dept Virtual Department [address] [place] [address] Social History Tobacco Use Types Packs/Day Years [...] documented as of this encounter Care Teams Leave Manager Relationship Specialty Start Date End Date Silva Dhaliwal MD [address] [place] [address] PCP - General Family Medicine 02/07/18 documented as of this encounter Additional Source Comments The information contained in this document represents components of the legal health record. It is not the complete legal health record.[facility]
--- OUTSIDE RECORDS SUMMARY | 2025-07-16 16:09 | XMS_ITS | Encounter Summary ---
Author Organization [facility] Address [address] [place] [address] Phone Care Team Providers Care General Sales Manager Name Role Phone Silva Dhaliwal MD Primary Care Provider +1- [phone] Encounter Details Date Type Department Care Team (Late st Contact Info) Description 02/07/2022 Procedure Pass [facility] Endoscopy Admitting Dept Virtual Department [address] [place] [address] Social History Tobacco Use Types Packs/Day Years [...] on filedocumented in this encounter Care Teams General Sales Manager Relationship Specialty Start Date End Date Silva Dhaliwal MD [address] [place] [address] PCP - General Family Medicine 02/07/18 documented as of this encounter Additional Source Comments The information contained in this document represents components of the legal health record. It is not the complete legal health record.[facility]
--- OUTSIDE RECORDS SUMMARY | 2025-07-16 16:09 | XMS_ITS | Encounter Summary ---
Author Organization [facility] Address [address] [place] [address] Phone Care Team Providers Care Buffer Inflated Pad Name Role Phone Silva Dhaliwal MD Primary Care Provider +1- [phone] Encounter Details Date Type Department Care Team (Late st Contact Info) Description 2019 Procedure Pass [facility], [address] [place] [address] Social History Tobacco Use Types Packs/Day Years [...] PM EDT documented as of this encounter Last Filed Vital Signs Vital Sign Reading Time Taken Comments Blood Pressure - - Pulse - - Temperature - - Respiratory Rate - - Oxygen Saturation - - Inhaled Oxygen Concentration - - Weight 64.4 kg (142 lb) 06/17/2019 6:12 PM EDT Height 154.9 cm (5' 1 ) 06/17/2019 6:12 PM EDT Body Mass Index 26.83 06/17/2019 6:12 PM EDT documented in this encounter Plan of Treatment Not on file documented as of this encounter Visit Diagnoses Not on filedocumented in this encounter Additional Health Concerns Infection Onset Date Last Indicated Resolved Time CoV-Risk 04/15/2021 04/15/2021 04/25/2021 1:24 AM EDT CoV-Risk 07/14/2021 07/14/2021 07/24/2021 1:22 AM EST documented as of this encounter Care Teams Buffer Inflated Pad Relationship Specialty Start Date End Date Silva Dhaliwal MD [address] [place] [address] PCP - General Family Medicine 02/07/18 documented as of this encounter Additional Source Comments The information contained in this document represents components of the legal health record. It is not the complete legal health record.[facility]
--- OUTSIDE RECORDS SUMMARY | 2025-07-16 16:09 | XMS_ITS | Encounter Summary ---
Author Organization [facility] Address [address] [place] [address] Phone Care Team Providers Care Core Drilling Supervisor Name Role Phone Silva Dhaliwal MD Primary Care Provider +1- [phone] Encounter Details Date Type Department Care Team (Latest Contact Info) Description 05/28/2022 Transcribe Orders Virtual Department [address] [place] [address] Silva Dhaliwal MD [address] [place] [place], [place] [id number] Breast screening (Primary Dx) Social History Tobacco [...] MAMMOGRAM SCREENING WITH TOMOSYNTHESIS WITH CAD (BILATERAL) (06/13/2022 9:02 AM EDT) Anatomical Region Laterality Modality Breast Left, Breast Right, Breast Bilateral Bila teral Mammography 06/14/2022 9:57 AM EDT Impressions 06/14/2022 10:01 AM EDT BILATERAL BREASTS: Negative, no specific mammographic evidence of malignancy. Normal interval follow-up is recommended in 12 months. BI-RADS: BI-RADS CATEGORY: 1 - Negative. DENSITY: There are scattered fibroglandular densities. Narrative 06/14/2022 10:01 AM EDT STUDY: BI MAMMOGRAM SCREENING WITH TOMOSYNTHESIS WITH CAD (BILATERAL) TECHNIQUE: Bilateral full-field digital screening mammography is obtained and read in conjunction with computer-aided detection. Tomosynthesis as well as 2-D C view imaging were obtained. COMPARISON: Comparison made to multiple prior, most recent May 25, 2020, and most remote October 25, 2011. BREAST COMPOSITION: There are scattered areas of fibroglandular density BILATERAL BREASTS: No significant masses, suspicious calcifications or other abnormalities are seen in either breast. Procedure Note Hong Guy MD - 06/14/2022 STUDY: BI MAMMOGRAM SCREENING WITH TOMOSYNTHESIS WITH CAD (BILATERAL) TECHNIQUE: Bilateral full-field digital screening mammography is obtainedand read in conjunction with computer-aided detection. Tomosynthesis aswell as 2-D C view imaging were obtained. COMPARISON: Comparison made to multiple prior, most recent May, and most remote October 25, 2011. BREAST COMPOSITION: There are scattered areas of fibroglandulardensity BILATERAL BREASTS: No significant masses, suspicious calcifications orother abnormalities are seen in either breast. IMPRESSION: BILATERAL BREASTS: Negative, no specific mammographic evidence ofmalignancy. Normal interval follow-up is recommended in 12 months. BI-RADS: BI-RADS CATEGORY: 1 - Negative. DENSITY: There are scattered fibroglandular densities. Silva Dhaliwal MD IMG MG EXAMS Final Resu lt documented in this encounter Visit Diagnoses Diagnosis Breast screening- Primary Breast screening, unspecified Breast screening Breast screening, unspecified documented in this encounter Care Teams Core Drilling Supervisor Relationship Specialty Start Date End Date Silva Dhaliwal MD [address] [place] [address] PCP - General Family Medicine 02/07/18 documented as of this encounter Additional Source Comments The information contained in this document represents components of the legal health record. It is not the complete legal health record.[facility]
--- OUTSIDE RECORDS SUMMARY | 2025-07-16 16:09 | XMS_ITS | Clinical Summary ---
Author Organization [facility] Address [address] [facility] [address] [place] [phone] Phone Care Team Providers Care Loading Unit Operator Powder Charging Name Role Phone Silva Dhaliwal MD Primary Care Provider [phone] Allergies Active Allergy Reactions Criticality Noted Date Comments Sulfamethoxazole-Trimethoprim Hives 2002 Medications triamcinolone (NASACORT AQ) 55 mcg/actuation nasal inhaler 1 puff in each nostril Nasally Once a day 04/06/20 14 Active Medication-Free Text CPAP SUPPLIES from [facility] tubing, mask, etc, Sig: use with CPAP machine every night Active ipratropium-alb uterol (COMBIVENT RESPIMAT) 20-100 mcg/actuation Mist Inhale 1 puff into the lungs 4 (four) times a day. Active KRILL OIL ORAL Take by mouth. Active CALCIUM ORAL Take by mouth. Ac tive GARLIC ORAL Take by mouth. Act garcia fexofenadine (ZENY) 180 MG tablet Take 180 mg by mouth daily. Active phenylephrine-s hark liver oil-cocoa butter 0.25-3 % suppository Place 1 suppository rectally as needed for hemorrhoid discomfort. Active albuterol 90 mcg/actuation inhaler INHALE 2 PUFFS BY MOUTH EVERY 4 HOURS NEEDED TO USE ALTERNATING WITH COMBIVENT DURING AND ASTHMA EXACERBATION 08/16/20 20 Active cholecalciferol (VITAMIN D3) 2,000 unit tablet TAKE ONE TABLET BY MOUTH ONCE DAILY FOR VITAMIN SUPPLEMENTATION 08/16/20 Active dilTIAZem (CARDIZEM CD) 240 MG 24 hr capsule Take 240 mg by mouth daily. 02/04/20 Active pravastatin (PRAVACHOL) 80 MG tablet 02/04/20 Active sertraline (ZOLOFT) 100 MG tablet 12/10/19 Active metFORMIN (GLUCOPHAGE) 500 MG tablet Take 250 mg by mouth 2 (two) times a day with meals. 12/26/19 Active traZODone (DESYREL) 100 MG tablet Take 50 mg by mouth. 12/06/19 Active budesonide-form oterol (SYMBICORT) 160-4.5 mcg/actuation inhaler Inhale into the lungs. 07/11/20 Active LORazepam (ATIVAN) 0.5 MG tablet Take 0.5 mg by mouth. 12/06/19 Active diphenhydrAMINE (BENADRYL) 25 mg capsule Take 25 mg by mouth. 08/30/19 Active magnesium oxide 420 mg Tab Take 1 tablet by mouth daily. 08/16/20 Active lidocaine (LIDODERM) 5 % Apply topically. 11/30/19 Active ibuprofen (ADVIL,MOTRIN) 600 MG tablet Take 600 mg by mouth. 08/16/20 Active meloxicam (MOBIC) 15 MG tablet Take 7.5 mg by mouth. 11/30/19 Active mirabegron (MYRBETRIQ) 50 mg Tb24 Take 50 mg by mouth. 11/15/19 Active PEG 400-propylene glycol (SYSTANE) 0.4-0.3 % Drop Apply to eye. 05/12/20 Active apple cider vinegar 500 mg Tab Take by mouth. Activ e zinc sulfate 50 mg zinc (220 mg) Tab Take 220 mg by mouth daily. Active vitamin E 400 UNIT capsule Take 400 Units by mouth daily. Active sertraline 200 mg Cap 200 mg daily. 02/13/20 Active pravastatin (PRAVACHOL) 80 MG tablet 80 mg. 03/06/20 Active metFORMIN (GLUCOPHAGE) 500 MG tablet Take 1,000 mg by mouth 2 (two) times a day with meals. 03/06/20 Active magnesium oxide 420 mg Tab Take 1 tablet by mouth daily. 08/16/20 Active dilTIAZem (DILACOR XR) 180 mg 24 hr capsule 180 mg. 03/06/20 Active pseudoephedrine (SUDAFED) 60 MG tablet Take 1 tablet by mouth every 6 (six) hours as needed. 06/12/20 Active prazosin (MINIPRESS) 1 MG capsule Take 1 capsule by mouth nightly at bedtime. 05/22/20 Active hyoscyamine (LEVSIN SL) 0.125 mg SL tablet 0.125 mg. 03/08/20 Active famotidine (PEPCID) 40 MG tablet 40 mg. 05/08/20 Active amoxicillin (AMOXIL) 500 MG capsule 2,000 mg. 05/14/20 Active OMEPRAZOLE ORAL Take by mouth. Active azithromycin (ZITHROMAX) 250 MG tablet Take 2 tabs on day 1 then followed by 1 tab every day for 4 days 6 tablet 01/08/20 Active Additional Information Patient not taking.Reported on 06/21/2025 apixaban (ELIQUIS) 5 mg tablet Take 1 tablet by mouth every 12 (twelve) hours. 08/09/20 Active cetirizine (ZYRTEC) 10 MG tablet 10 mg. 02/09/20 Active cyanocobalamin, vitamin B-12, 100 MCG tablet 100 mcg. 05/10/20 Active mometasone-form oterol (DULERA) 50-5 mcg/actuation HFAA Inhale into the lungs daily. 02/07/20 Active ascorbic acid (VITAMIN C ORAL) Take by mouth daily. Active Active Problems Problem Noted Date Diagnosed Date Osteonecrosis of left knee region 08/21/2022 Chronic knee pain after tota l replacement of right knee joint 08/21/2022 Status post revision of total knee replacement, right 06/26/2022 Diabetes mellitus 02/12/2013 Overview (10/09/2014): Diabetes mellitus Osteoarthritis 04/28/2012 Overview (10/09/2014): Osteoarthritis Environmental allergies 04/02/2012 Overview (07/14/2017): sneezing and wheezing Resolved Problems Problem Noted Date Diagnosed Date Resolved Date Primary osteoarthritis of left knee 06/26/2022 08/21/2022 Encounters Date Type Department Care Team Description 5 10:48 AM EST Anesthesia Event [facility] End[facility] Admitting Dept Virtual Department [address] [place] [address] Carlos Garrett MD 5 10:15 AM EST - 5 10:30 AM EST Surgery [facility]oscopy Admitting Dept Virtual Department [address] [place] [address] 26490 Black Bey MD ESOPHAGOGASTRODUODENOSCOPY 5 9:06 AM EST - 5 11:45 PM EST Hospital Encounter [facility] Admitting [facility] Virtual Department [address] [place] [address] 15356 Black Bey MD Discharge Disposition: Home or Self Care 5 Procedure Pass [facility] Endoscopy Admitting Dept Virtual Department [address] [place] [id number] 5 9:00 AM EDT Pre-Admission Testing Pre Procedure Evaluation [address] [place] [address] 96504 Black Bey MD 5 Transcribe Orders [facility] [address] [place] [address] Silva Dhaliwal MD Encounter for screening for malignant neoplasm of colon (Primary Dx) from Last 3 Months Immunizations Immunization Administration Dates Next Due Pneumococcal polysaccharide PPSV23 01/30/2013(De ferred: Other) Family History Medical History Relation Comments Ovarian cancer Maternal Grandmother Relation Status Comments Maternal Grandmother Social History Tobacco Use Types Packs/Day Years Used Date Smoking Tobacco: Former Cigarettes Q uit: 02/02/2009 Smokeless Tobacco: Never Tobacco Cessation:Counseling Given: Not Answered Alcohol Use Standard Drinks/Week Comments Not Currently 0 (1 standard drink = 0.6 oz [...] as food, clothing, or medical care? No 06/21/2025 In the past 12 months have y ou been in a relationship with a person who hurts, threatens, or tries to control you? No 06/21/2025 Are you denied basic needs s uch as food, clothing, or medical care? No 06/21/2025 In the past 12 months have y ou been in a relationship with a person who hurts, threatens, or tries to control you? No 06/21/2025 Comments No Sex and Gender Information Value Date Recorded Sex Assigned at Female 05/19/2019 5:07 PM EDT Legal Sex Female 6:13 PM EST Gender Identity Female 05/19/2019 5:07 PM EDT Sexual Orientation Straight 05/19/2019 5: 07 PM EDT Last Filed Vital Signs Vital Sign Reading Time Taken Comments Blood Pressure 111/62 06/21/2025 11:22 AM EST Pulse 72 06/21/2025 11:22 AM EST Temperature 36 C (96.8 F) 06/21/2025 11:10 AM EST Respiratory Rate 9 06/21/2025 11:22 AM EST Oxygen Saturation 96% 06/21/2025 11:22 AM EST Inhaled Oxygen Concentration - - Weight 65.8 kg (145 lb) 12/31/2023 8:46 AM EDT Height 152.3 cm (4' 11.96 ) 01/07/2023 1:15 PM E DT Body Mass Index 28.36 01/07/2023 1:15 PM EDT Plan of Treatment Health Maintenance Due Date Last Done Comments DEPRESSION SCREENING 1964 HEPATITIS C SCREENING 1970 COLOGUARD 1997 FIT TEST 1997 FOBT 1997 SIGMOIDOSCOPY 1997 VIRTUAL COLONOSCOPY 1997 URINE MICROALBUMIN/CREATININE RATIO 10/09/2014 OSTEOPOROSIS SCREENING INITIAL (ONE-TIME) 2017 HEMOGLOBIN A1C 02/06/2023 08/08/2022, 01/30/2013 MAMMOGRAM 06/13/2024 06/13/2022, 10/02/2020, 04/17/2018 BLOOD PRESSURE 07/02/2024 12/31/2023 INFLUENZA VACCINE (#1) 2025 , 05/08/2022, 06/26/2021, Additional history exists COVID-19 VACCINE ( season) 2025 11/18/2020, 10/21/2020 DIABETIC EYE EXAM 07/13/2025 07/13/2024 CREATININE LEVEL 10/27/2025 10/27/2024, , 08/08/2022, Additional history exists SMOKING Hx and SMOKELESS TOBACCO SCREENING 06/21/2026 06/21/2025 RSV VACCINE (1 - 1-dose 75+ series) 2027 COLONOSCOPY 06/21/2030 06/21/2025, 01/18, 02/12/2019 COLORECTAL CANCER SCREENING 06/21/2030 Adult Td,Tdap Booster 02/15/2031 02/15/2021 ZOSTER VACCINES Completed 05/16/2020, 01/2020, 04/05/2014 PNEUMOCOCCAL VACCINES (50+ years) Completed 02/15/2021, 10/28/2017, 06/01/2015 HEPATITIS A VACCINES Aged Out No long er eligible based on patient's age to complete this topic HIB VACCINES Aged Out No longer eligi ble based on patient's age to complete this topic MENINGOCOCCAL VACCINES (ACWY) Aged Out No longer eligible based on patient's age to complete this topic MENINGOCOCCAL VACCINES (B) Aged Out N o longer eligible based on patient's age to complete this topic Medical Devices Implanted Type Area Epic Application Coordinator Device Identifier Shelf Expiration Date Model / Serial / Lot Rt. Knee,Wrist. Lt. Ankle Description:Left ankle, Righ t Knee, Right Wrist Clip Hemostasis Duraclip 16mm 235cm Lower Bx/10ea - [id number] Implanted:Qty: 1 on 02/12/2019 by Black Bey MD at [facility] CONMED [id number] / / Clip Hemostasis 16mm Cs/5ea - [id number] Implanted:Qty: 1 on 06/21/2025 by Black Bey MD at [facility] N/A: [id number] / / Procedures Procedure Name Priority Date/Time Associated Diagnosis Comments TISSUE EXAM Routine 06/21/2025 10:51 AM EST MS COLSC FLX W/RMVL OF TUMOR POLYP LESION SNARE TQ 06/21/2025 10:46 AM EST EGD/COLON Special Needs PAF / Eliquis , DM2, asthma, uses cane MS COLONOSCOPY W/BIOPSY SINGLE/MULTIPLE 06/21/2025 10:46 AM EST EGD/COLON Special Needs PAF / Eliquis , DM2, asthma, uses cane MS COLONOSCOPY FLX DX W/CLIFF J SPEC WHEN PFRMD 06/21/2025 10:46 AM EST EGD/COLON Special Needs PAF / Eliquis , DM2, asthma, uses cane MS EDG TRANSORAL BIOPSY SINGLE/MULTIPLE 06/21/2025 10:46 AM EST EGD/COLON Special Needs PAF / Eliquis , DM2, asthma, uses cane MS ESOPHAGOGASTRODUODENOSCOP Y TRANSORAL DIAGNOSTIC 06/21/2025 10:46 AM EST EGD/COLON Special Needs PAF / Eliquis , DM2, asthma, uses cane ENDOSCOPY PROCEDURE 06/21/2025 10:44 AM EST ENDOSCOPY, COLON 06/21/2025 10:43 AM EST BASIC METABOLIC PANEL (BMP) Routine 10/17 9:57 AM EDT Left lower quadrant pain HEMOGLOBIN A1C Routine 08/08/2022 11:45 AM EST Status post revision of total knee replacement, right BI MAMMOGRAM SCREENING WITH TOMOSYNTHESIS WITH CAD (BILATERAL) Routine 06/13/2022 9:02 AM EDT Breast screening from Last 3 Months or Most Recently Relevant to Health Maintenance Results * Tissue Exam (06/21/2025 10:51 AM EST) Final Pathologic Diagnosis A. STOMACH; BIOPSY: No pathologic abnormalities. B. GASTROESOPHAGEAL JUNCTION; BIOPSY: No pathologic abnormalities. C. ESOPHAGUS, MID; BIOPSY: No pathologic abnormalities. D. COLON, CECUM: Adenomatous polyp. 1:03 PM [facility] at 1303 EST Clinical History Pre-op diagnosis: EGD/COLON 1:03 PM [facility] Gross Description A. STOMACH: Received in formalin are 3 irregular benton-pink soft tissue fragments varying in size from 0.2 to 0.2 x 0.2 cm up to 0.5 x 0.3 x 0.1 cm which are submitted in toto in a single cassette labeled A1. B. GASTROESOPHAGEAL JUNCTION: Received in formalin are 3 irregular benton-pink soft tissue fragments measuring an average 0.5 x 0.3 x 0.1 cm which are submitted in toto in a single cassette labeled B1. C. ESOPHAGUS, MID: Received in formalin are 2 irregular benton-pink soft tissue fragments measuring an average 0.3 x 0.2 x 0.1 cm which are submitted in toto in a single cassette labeled C1. D. COLON, CECUM: Received in formalin are 2 irregular benton-pink soft tissue fragments measuring an average 0.5 x 0.3 x 0.2 cm which are submitted in toto in a single cassette labeled D1. Grossed by: BONNIE Arzola PA(ASCP) 1:03 PM [facility] Grossed By Partha Brown 1:03 PM [facility] Result Priority Level Routine 1:03 PM [facility] Disclaimer By their signature mik santiago, the pathologist listed as making the Final Diagnosis certifies that they have personally reviewed the case and confirmed the diagnosis. All slides and stains were of sufficient quality to establish the diagnosis, unless otherwise stated. Due to loss of elastic tension and/or tissue shrinkage in formalin, the clinical sizes of tissue specimens may be larger than those provided in this report. 1:03 PM [facility] Procedure ESOPHAGOGASTRODUODEN OSCOPY COLONOSCOPY 1:03 PM [facility] Gastrointestinal Tissue (Stomach) 06/21/2025 10:51 AM EST 06/21/2025 1:32 PM EST Comment:Pre-op diagnosis: EGD/COLON Gastrointestinal Tissue (Gastroesophageal Junction) 06/21/2025 10:51 AM EST 06/21/2025 1:32 PM EST Comment:Pre-op diagnosis: EGD/COLON Gastrointestinal Tissue (Esophagus, Mid) 06/21/2025 10:52 AM EST 06/21/2025 1:32 PM EST Comment:Pre-op diagnosis: EGD/COLON Gastrointestinal Tissue (Colon, Cecum) 06/21/2025 10:59 AM EST 06/21/2025 1:32 PM EST Comment:Pre-op diagnosis: EGD/COLON us Black Bey MD LAB PATHOLOGY ORDERABLES Final R esult [address] [address] * ENDOSCOPY PROCEDURE (06/21/2025 10:44 AM EST) Narrative Transcriptions Black Bey MD - 06/21/2025 10:44 AM EST [facility] Patient Name: Annemarie Harding Attending MD:: BLACK BEY MD, , Procedure Date: 06/21/2025 10:44 AM Date of : 1950 Age: 75 Admit Type: Outpatient Gender: Female Room: [place] [address] Referring MD: Silva Dhaliwal MD Exam Type: Upper GI endoscopy Indications: Dysphagia, Heartburn Medications: Propofol per Anesthesia Procedure: Informed consent was obtained from the patientafter discussion of the indications, limitations, alternatives, benefits, and risks of the procedure. Risks specifically discussed include but are not limited to medication reactions, missed lesions, bleeding, perforation, or the need for emergent surgery. Throughout the procedure, the patient's blood pressure, pulse, end-tidal CO2, and oxygensaturations were monitored continuously. The Olympus gastroscope [id number]-[id number] #2 was introduced through the mouth, and advanced to the second partof duodenum. The upper GI endoscopy was accomplished without difficulty. The patient tolerated the procedure well. Complications: No immediate complications. Estimated blood loss: Minimal. Findings: The examined duodenum was normal. A small hiatal hernia was present. Localized mildly erythematous mucosa withoutbleeding was found in the gastric antrum. Biopsies weretaken with a cold forceps for histology. LA Grade A (one or more mucosal breaks less than 5mm, not extending between tops of 2 mucosal folds) esophagitis with no bleeding was found. Biopsieswere taken with a cold forceps for histology. The exam of the esophagus was otherwise normal. Impression: - Normal examined duodenum. - Small hiatal hernia. - Erythematous mucosa in the antrum. Biopsied. - LA Grade A esophagitis with no bleeding.Biopsied. Recommendation: - Await pathology results. - Return to GI office as previously scheduled. BLACK BEY MD, 06/21/2025 10:55:14 AM This report has been signed electronically. Number of Addenda: 0 Note Initiated On: 06/21/2025 10:44 AM Procedure Code(s): --- Professional --- 06326, Esophagogastroduodenoscopy, flexible, transoral; with biopsy, single or multiple --- Technical --- 92358, Esophagogastroduodenoscopy, flexible, transoral; with biopsy, single or multiple Diagnosis Code(s): --- Professional --- K44.9, Diaphragmatic hernia without obstruction or gangrene K31.89, Other diseases of stomach and duodenum K20.90, Esophagitis, unspecified without bleeding R13.10, Dysphagia, unspecified R12, Heartburn --- Technical --- K44.9, Diaphragmatic hernia without obstruction or gangrene K31.89, Other diseases of stomach and duodenum K20.90, Esophagitis, unspecified without bleeding R13.10, Dysphagia, unspecified R12, Heartburn CPT copyright 2021 [employer]. All rights reserved. The codes documented in this report are preliminary and upon relay operator reviewmay be revised to meet current compliance requirements. Procedure Date: 06/21/2025 10:44:[address] [place] [address] [id number] us Silva Dhaliwal MD GI PROCEDURE ORDERABLES Fi nal Result * ENDOSCOPY, COLON (06/21/2025 10:43 AM EST) Narrative Transcriptions Black Bey MD - 06/21/2025 10:43 AM EST [facility] Patient Name: Annemarie Harding Attending MD:: BLACK BEY MD, , Procedure Date: 06/21/2025 10:43 AM Date of : 1950 Age: 75 Admit Type: Outpatient Gender: Female Room: [place] [address] Referring MD: Silva Dhaliwal MD Exam Type: Colonoscopy Indications: High risk colon cancer surveillance: Personalhistory of colonic polyps, Generalized abdominal pain Medications: Monitored Anesthesia Care Procedure: Informed consent was obtained from the patientafter discussion of the indications, limitations, alternatives, benefits, and risks of the procedure. Risks specifically discussed include but are not limited to medication reactions, missed lesions, bleeding, perforation, or the need for emergent surgery. Throughout the procedure, the patient's blood pressure, pulse, end-tidal CO2, and oxygensaturations were monitored continuously. The Olympus adult variable colonoscope [id number] #7 was introduced through the anus and advanced to the cecum, identified by appendiceal orifice andileocecal valve. The colonoscopy was performed without difficulty. The patient tolerated the procedurewell. The quality of the bowel preparation was excellent. The quality of the bowel preparation was evaluated using the BBPS ([place] Bowel Preparation Scale)with scores of: Right Colon = 3, Transverse Colon = 3and Left Colon = 3 (entire mucosa seen well with no residual staining, small fragments of stool oropaque liquid). The total BBPS score equals 9. Anatomical landmarks were photographed. Complications: No immediate complications. Estimated blood loss: Minimal. Findings: The perianal and digital rectal examinations were normal. A 5 mm polyp was found in the cecum. The polyp was sessile. The polyp was removed with a cold snare. Resection and retrieval were complete. To prevent bleeding after the polypectomy, one hemostatic clip was successfully placed (MR conditional). There wasno bleeding at the end of the procedure. Internal hemorrhoids were found duringretroflexion. The hemorrhoids were mild. The exam was otherwise normal throughout theexamined colon. Impression: - One 5 mm polyp in the cecum, removed with a cold snare. Resected and retrieved. Clip (MRconditional) was placed. - Internal hemorrhoids. Recommendation: - Discharge patient to home. - Await pathology results. BLACK BEY MD, 06/21/2025 11:07:26 AM This report has been signed electronically. Number of Addenda: 0 Note Initiated On: 06/21/2025 10:43 AM Procedure Code(s): --- Professional --- 66165, Colonoscopy, flexible; with removal of tumor(s), polyp(s), or other lesion(s) by snare technique --- Technical --- 64866, Colonoscopy, flexible; with removal of tumor(s), polyp(s), or other lesion(s) by snare technique Diagnosis Code(s): --- Professional --- Z86.010, Personal history of colonic polyps D12.0, Benign neoplasm of cecum K64.8, Other hemorrhoids R10.84, Generalized abdominal pain --- Technical --- Z86.010, Personal history of colonic polyps D12.0, Benign neoplasm of cecum K64.8, Other hemorrhoids R10.84, Generalized abdominal pain CPT copyright 2021 [employer]. All rights reserved. The codes documented in this report are preliminary and upon relay operator reviewmay be revised to meet current compliance requirements. Procedure Date: 06/21/2025 10:43:[address] [place] [id number] Silva Dhaliwal MD GI PROCEDURE ORDERABLES Fi nal Result * (ABNORMAL) Basic metabolic panel (10/27/2024 9:57 AM EDT) SODIUM 138 133 - 146 mmol/L [facility] CHLORIDE 101 96 - 108 mmol/L [facility] POTASSIUM 4.7 3.3 - 5.1 mmol/L [facility] Comment:Specimen slightly he molyzed, result may be falsely elevated. CO2 23 21 - 35 mmol/L [facility] BUN 8 6 - 19 mg/dL [facility] CREATININE 0.50 0.5 - 1.5 mg/dL [facility] GLUCOSE 151(H) 70 - 99 mg/dL [facility] CALCIUM 9.9 8.4 - 10.3 mg/dL [facility] EGFR 100 >59 mL/min/1.7 3m2 [facility] Comment:Estimated glomerular filtration rate calculated using the CKD-EPI refit equation. ANION GAP 19 10 - 20 mmol/L [facility] Blood 10/27/2024 9:57 AM EDT 10/27/2024 10:01 AM EDT us Criselda ROJAS LAB BLOOD BKR ORDERABLES Fi nal Result [facility] [address] [place] [address] * (ABNORMAL) Hemoglobin A1c (08/08/2022 11:45 AM EST) HEMOGLOBIN A1C 6.0(H) 4.3 - 5.8 % [facility] Blood 08/08/2022 11:4 5 AM EST 08/08/2022 11:54 AM EST us Aftab Porter MD LAB BLOOD BKR ORDERABLES Fin al Result [facility] [address] [place] [address] * BI MAMMOGRAM SCREENING WITH TOMOSYNTHESIS WITH [...] MD IMG MG EXAMS Final Resu lt from Last 3 Months or Most Recently Relevant to Health Maintenance Insurance MEDICARE PART A & B [facility] MEDICARE PART A & B MEDICARE PART A & B Member Subscriber Plan / Payer ( fective 2008-Present) Name:Annemarie Harding Member ID:[id number] Relation to Subscriber:Self Name:Annemarie Harding Subscriber ID:[id number] Payer ID:[id number] Group ID:Not on file Type:Medicare Address: [facility] [address] MEDICARE PART A & B Member Subscriber Plan / Payer (Ef fective 2008-Present) Name:Annemarie Harding Member ID:[id number] Relation to Subscriber:Self Name:Annemarie Harding Subscriber ID:[id number] Payer ID:[id number] Group ID:Not on file Type:Medicare Address: [facility] [address] [address] [facility] MEDICARE PART A & B MEDICARE PART A & B MEDICARE PART A & B Member Subscriber Plan / Payer ( fective 2008-Present) Name:Annemarie Harding Member ID:[id number] Relation to Subscriber:Self Name:Annemarie Harding Subscriber ID:[id number] Payer ID:[id number] Group ID:Not on file Type:Medicare Address: [facility] [address] MEDICARE PART A & B Member Subscriber Plan / Payer ( fective 2008-Present) Name:Annemarie Harding Member ID:[id number] Relation to Subscriber:Self Name:Annemarie Harding Subscriber ID:[id number] Payer ID:[id number] Group ID:Not on file Type:Medicare Address: [facility] [address] MEDICARE PART A & B [facility] Care Teams Loading Unit Operator Powder Charging Relationship Specialty Start Date End Date Silva Dhaliwal MD [address] [place] [address] PCP - General Family Medicine 02/07/18 Additional Source Comments The information contained in this document represents components of the legal health record. It is not the complete legal health record.[facility]
--- OUTSIDE RECORDS SUMMARY | 2025-07-16 16:09 | XMS_ITS | Encounter Summary ---
Author Organization [facility] Address [address] [facility] [address] [place] [phone] Phone Care Team Providers Care Lamp Cleaner Street Light Name Role Phone Silva Dhaliwal MD Primary Care Provider [phone]- [phone] Encounter Details Date Type Department Care Team (Late st Contact Info) Description 06/21/2025 Procedure Pass [facility] Endoscopy Admitting Dept Virtual Department [address] [place] [address] Social History Tobacco Use Types Packs/Day Years Used Date Smoking Tobacco: Former Cigarettes Q uit: 02/02/2009 Smokeless Tobacco: Never Alcohol Use Standard Drinks/Week Comments Not Currently [...] on filedocumented in this encounter Care Teams Lamp Cleaner Street Light Relationship Specialty Start Date End Date Silva Dhaliwal MD [address] [place] [address] PCP - General Family Medicine 02/07/18 documented as of this encounter Additional Source Comments The information contained in this document represents components of the legal health record. It is not the complete legal health record.[facility]
--- OUTSIDE RECORDS SUMMARY | 2025-07-16 16:09 | XMS_ITS | Encounter Summary ---
Author Organization [facility] Address [address] [address] Phone Care Team Providers Care Submarine Worker Name Role Phone Silva Dhaliwal MD Primary Care Provider [phone]- [phone] Reason for Referral * Occupational Therapy (Elective) - Closed Specialty Diagnoses / Procedures Referred By Vianca garcia Referred To Contact Occupational Therapy Diagnoses Encounter for rehabilitation Right Hand pain [facility] Procedures Evaluate & Treat Leydi Garcia MD Phone: tel: fax: mailto:[email or web address] [address] [place] [address] Phone: tel: Referral ID Status Reason Start Date Expiration Date Visits Re quested Visits Authorized [id number] Closed 09/07/2019 08/18/2020 99 99 Encounter Details Date Type Department Care Team (Latest Contact Info) Description 09/04/2019 Transcribe Orders [facility] [address] [place] [address] Leydi Garcia MD [address] [place] [phone] [email or web address] Encounter for rehabilitation (Primary Dx) Social History Tobacco Use Types [...] as of this encounter Plan of Treatment Scheduled Referrals Name Type Priority Associated Diagnoses Orde r Schedule Ambulatory referral to [facility] Occupational Therapy Outpatient Referral Routine Encounter for rehabilitation Ordered: 09/04/2019 documented as of this encounter Visit Diagnoses Diagnosis Encounter for rehabilitation- Primary documented in this encounter Additional Health Concerns Infection Onset Date Last Indicated Resolved Time CoV-Risk 04/15/2021 04/15/2021 04/25/2021 1:24 AM EDT CoV-Risk 07/14/2021 07/14/2021 07/24/2021 1:22 AM EST documented as of this encounter Care Teams Submarine Worker Relationship Specialty Start Date End Date Silva Dhaliwal MD [address] [place] [address] PCP - General Family Medicine 02/07/18 documented as of this encounter Additional Source Comments The information contained in this document represents components of the legal health record. It is not the complete legal health record.[facility]
--- OUTSIDE RECORDS SUMMARY | 2025-07-16 16:09 | XMS_ITS | Encounter Summary ---
Author Organization [facility] Address 399 [facility] [address] [place] [address] Phone Care Team Providers Care Sounding Device Operator Name Role Phone Jessica Huang MD Primary Care Provider [phone] Sliva Dhaliwal MD Primary Care Provider [phone]- [phone] Encounter Details Date Type Department Care Team (Late st Contact Info) Description 02/04/2018 Ancillary Orders Virtual Department [address] [place] [address] Silva Dhaliwal MD [address] [place] [address] Visit for screening mammogram; Encounter for screening mammogram for malignant neoplasm of breast Social History Tobacco Use Types Packs/Day Years [...] MAMMOGRAM SCREENING WITH TOMOSYNTHESIS WITH CAD (BILATERAL) (04/17/2018 12:35 PM EDT) Anatomical Region Laterality Modality Breast Left, Breast Right, Breast Bilateral Bila teral Mammography 04/17/2018 1:11 PM EDT Impressions 04/17/2018 1:14 PM EDT Stable appearance relative to prior imaging. No findings suggestive of malignancy are seen. BI-RADS CATEGORY: 2 - Benign finding. DENSITY: There are scattered fibroglandular densities. POS - [id number] Narrative 04/17/2018 1:14 PM EDT Full-field digital mammography is obtained with computer-aided detection. Comparison with prior imaging from 02/07/2016 is made with older imaging dating back as far as 10/03/2009 also reviewed. There is scattered fibroglandular density evident in the breasts. In addition to 2-D C view imaging, tomosynthesis images are obtained in two projections of each breast. Minor bilateral punctate and vascular calcifications are unchanged.. No dominant soft tissue mass of concern, suspicious cluster of calcifications, significant interval skin changes, or architectural distortion is identified. Procedure Note Bienvenido Mason MD - 04/17/2018 Full-field digital mammography is obtained with computer-aided detection.Comparison with prior imaging from 02/07/2016 is made with older imagingdating back as far as 10/03/2009 also reviewed. There is scattered fibroglandular density evident in the breasts. Inaddition to 2-D C view imaging, tomosynthesis images are obtained in twoprojections of each breast. Minor bilateral punctate and vascular calcifications are unchanged.. Nodominant soft tissue mass of concern, suspicious cluster ofcalcifications, significant interval skin changes, or architecturaldistortion is identified. IMPRESSION: Stable appearance relative to prior imaging. No findings suggestive ofmalignancy are seen. BI-RADS CATEGORY: 2 - Benign finding. DENSITY: There are scattered fibroglandular densities. POS - [id number] Silva Dhaliwal MD IMG MG EXAMS Final Resu lt documented in this encounter Visit Diagnoses Diagnosis Visit for screening mammogram Encounter for screening mammogram for malignant neoplasm of breast Visit for screening mammogram Encounter for screening mammogram for malignant neoplasm of breast documented in this encounter Additional Health Concerns Infection Onset Date Last Indicated Resolved Time CoV-Risk 04/15/2021 04/15/2021 04/25/2021 1:24 AM EDT CoV-Risk 07/14/2021 07/14/2021 07/24/2021 1:22 AM EST documented as of this encounter Care Teams Sounding Device Operator Relationship Specialty Start Date End Date Jessica Huang MD [address] [place] [address] [email or web address] PCP - General 02/16/1402/06 Silva Dhaliwal MD [address] [place] [address] PCP - General Family Medicine 02/07/18 documented as of this encounter Additional Source Comments The information contained in this document represents components of the legal health record. It is not the complete legal health record.[facility]
--- OUTSIDE RECORDS SUMMARY | 2025-07-16 16:09 | XMS_ITS | Encounter Summary ---
Author Organization [facility] Address 399 [facility] [address] [place] [address] Phone Care Team Providers Care Trailhead Construction Worker Name Role Phone Silva Dhaliwal MD Primary Care Provider [phone] Encounter Details Date Type Department Care Team (Late st Contact Info) Description 06/23/2019 Ancillary Orders [facility],Outside Imaging [address] [place] [address] System, Provider Not In, [facility] [address] [address] Social History Tobacco Use Types Packs/Day Years [...] documented as of this encounter Results * US Thyroid Gland Outside (No Interpretation) (05/18/2019 12:00 AM EDT) Narrative SYSTEMGENERATED, DOCUMENTATION - 06/23/2019 11:47 AM EST This study is for PACS storage only and not for interpretation. us Provider Not In System PhD IMG OUTSIDE IMAGING W /OUT INTERPRETATION Final Result documented in this encounter Visit Diagnoses Not on filedocumented in this encounter Additional Health Concerns Infection Onset Date Last Indicated Resolved Time CoV-Risk 04/15/2021 04/15/2021 04/25/2021 1:24 AM EDT CoV-Risk 07/14/2021 07/14/2021 07/24/2021 1:22 AM EST documented as of this encounter Care Teams Trailhead Construction Worker Relationship Specialty Start Date End Date Silva Dhaliwal MD [address] [place] [address] PCP - General Family Medicine 02/07/18 documented as of this encounter Additional Source Comments The information contained in this document represents components of the legal health record. It is not the complete legal health record.[facility]
--- OUTSIDE RECORDS SUMMARY | 2025-07-16 16:09 | XMS_ITS | Encounter Summary ---
Author Organization [facility] Address 399 [facility] [address] [place] [address] Phone Care Team Providers Care Biofuels Manager Name Role Phone Silva Dhaliwal MD Primary Care Provider [phone]- [phone] Encounter Details Date Type Department Care Team (Late st Contact Info) Description 07/15/2022 Procedure Pass [facility], Ct Scan - [facility] [address] [place] [address] Social History Tobacco Use Types Packs/Day Years [...] Date of Assessment Author No Risk Indicated 07/15/2022 10:11 AM Felicitas Pro RN * [place] Suicide Severity Rating Scale (Screener/Recent Self-Report) Question Answer Date of Assessment Author 1. Wish to be (Past 1 Month) No 022 10:11 AM Felicitas Villanueva RN 2. Non-Specific Active Suici smita Thoughts (Past 1 Month) No 07/15/2022 10:11 AM Aparna Villanueva RN 6. Suicidal Behavior (Lifetime) No 10:11 AM Felicitas Villanueva RN documented as of this encounter Plan of Treatment Not on file documented as of this encounter Visit Diagnoses Not on filedocumented in this encounter Care Teams Biofuels Manager Relationship Specialty Start Date End Date Silva Dhaliwal MD [address] [place] [address] PCP - General Family Medicine 02/07/18 documented as of this encounter Additional Source Comments The information contained in this document represents components of the legal health record. It is not the complete legal health record.[facility]
--- OUTSIDE RECORDS SUMMARY | 2025-07-16 16:09 | XMS_ITS | Encounter Summary ---
Author Organization [facility] Address 399 [facility] [address] [place] [address] Phone Care Team Providers Care Theatre Arts Professor Name Role Phone Silva Dhaliwal MD Primary Care Provider [phone]- [phone] Encounter Details Date Type Department Care Team (Latest Contact Info) Description 06/18/2019 Transcribe Orders Virtual Department [address] [place] [address] Silva Dhaliwal MD [address] [place] [address] Right thyroid nodule (Primary Dx) Social History Tobacco Use Types [...] as of this encounter Visit Diagnoses Diagnosis Right thyroid nodule- Primary documented in this encounter Additional Health Concerns Infection Onset Date Last Indicated Resolved Time CoV-Risk 04/15/2021 04/15/2021 04/25/2021 1:24 AM EDT CoV-Risk 07/14/2021 07/14/2021 07/24/2021 1:22 AM EST documented as of this encounter Care Teams Theatre Arts Professor Relationship Specialty Start Date End Date Silva Dhaliwal MD [address] [place] [address] PCP - General Family Medicine 02/07/18 documented as of this encounter Additional Source Comments The information contained in this document represents components of the legal health record. It is not the complete legal health record.[facility]
--- OUTSIDE RECORDS SUMMARY | 2025-07-16 16:09 | XMS_ITS | Encounter Summary ---
Author Organization [facility] Address 399 [facility] [address] [place] [address] Phone Care Team Providers Care Clinical Pathologist Name Role Phone Silva Dhaliwal MD Primary Care Provider [phone]- [phone] Encounter Details Date Type Department Care Team (Late st Contact Info) Description 05/28/2022 Procedure Pass [facility] [address] [place] [address] Social History Tobacco Use Types Packs/Day Years [...] on filedocumented in this encounter Care Teams Clinical Pathologist Relationship Specialty Start Date End Date Silva Dhaliwal MD [facility] [place] [address] PCP - General Family Medicine 02/07/18 documented as of this encounter Additional Source Comments The information contained in this document represents components of the legal health record. It is not the complete legal health record.[facility]
--- OUTSIDE RECORDS SUMMARY | 2025-07-16 16:09 | XMS_ITS | Encounter Summary ---
Author Organization [facility] Address 399 [facility] [address] [place] [address] Phone Care Team Providers Care Medical Instrument Technician Name Role Phone Silva Dhaliwal MD Primary Care Provider [phone]- [phone] Reason for Referral * MRI/CAT Scan - Closed Specialty Diagnoses / Procedures Referred By Vianca garcia Referred To Contact Procedures CT Neck Outside (No Interpretation) System, Provider Not In, [facility] [address] [address] Referral ID Status Reason Start Date Expiration Date Visits Re quested Visits Authorized [id number] Closed 06/23/2019 06/22/2020 1 1 Encounter Details Date Type Department Care Team (Late st Contact Info) Description 06/23/2019 Ancillary Orders [facility],Outside Imaging [address] [place] [address] System, Provider Not In, [facility] [address] [address] Social History Tobacco Use Types Packs/Day Years [...] as of this encounter Results * CT Neck Outside (No Interpretation) (04/21/2019 12:00 AM EDT) Narrative SYSTEMGENERATED, DOCUMENTATION - 06/23/2019 11:48 AM EST This study is for PACS [...] documented as of this encounter Care Teams Medical Instrument Technician Relationship Specialty Start Date End Date Silva Dhaliwal MD [address] [place] [address] PCP - General Family Medicine 02/07/18 documented as of this encounter Additional Source Comments The information contained in this document represents components of the legal health record. It is not the complete legal health record.[facility]
--- OUTSIDE RECORDS SUMMARY | 2025-07-16 16:09 | XMS_ITS | Encounter Summary ---
Author Organization [facility] Address 399 [facility] [address] [place] [address] Phone Care Team Providers Care Scallop Shucker Name Role Phone Silva Dhaliwal MD Primary Care Provider [phone]- [phone] Reason for Referral * MRI/CAT Scan - Closed Specialty Diagnoses / Procedures Referred By Vianca garcia Referred To Contact Radiology Diagnoses Tinnitus of right ear Procedures MRI Brain Silva Dhaliwal MD [address] [place] [address] Phone: tel: fax: Referral ID Status Reason Start Date Expiration Date Visits Re quested Visits Authorized [id number] Closed 05/20/2019 08/15/2019 1 1 Encounter Details Date Type Department Care Team (Latest Contact Info) Description 2019 Transcribe Orders Virtual Department [address] [place] [address] Silva Dhaliwal MD [address] [place], [place] [id number] Tinnitus of right ear (Primary Dx) Social History Tobacco Use Types [...] as of this encounter Results * MRI BRAIN WITH AND WITHOUT CONTRAST (06/23/2019 10:42 AM EST) Anatomical Region Laterality Modality Head Magnetic Resonan ce 06/23/2019 11:1 5 AM EST Impressions 06/23/2019 11:30 AM EST Findings consistent with mild-moderate chronic small vessel ischemia, minimally progressed from 09/20/2007. No other significant changes. No explanation for right-sided tinnitus. POS - [id number] Narrative 06/23/2019 11:30 AM EST HISTORY: Worsening right-sided pulsatile tinnitus. COMPARISON: CT brain 06/07/2012 and MRI brain 09/20/2007. TECHNIQUE: Exam performed on a 1.5 Janie high-field MRI scanner. Axial T1, T2, T2*, T2 FLAIR and diffusion-weighted with ADC map, sagittal T1, followed by post-gadolinium axial T1 sequence. FINDINGS: No evidence of intracranial hemorrhage, hematomas or masses. The internal auditory canals and cerebellopontine angles appear normal. No evidence of suspicious intracranial masses. Patchy bilateral T2/T2 FLAIR hyperintense foci is minimally more extensive but overall very similar. No evidence of enhancing white matter lesions. Ventricles are normal in size and configuration. Basal cisterns are patent. Stable flow-voids at the base of the skull. Small retention cysts in the maxillary sinuses. Procedure Note Negro Matthews MD - 06/23/2019 HISTORY: Worsening right-sided pulsatile tinnitus. COMPARISON: CT brain 06/07/2012 and MRI brain 09/20/2007. TECHNIQUE: Exam performed on a 1.5 Janie high-field MRI scanner. AxialT1, T2, T2*, T2 FLAIR and diffusion-weighted with ADC map, sagittal T1,followed by post- gadolinium axial T1 sequence. FINDINGS: No evidence of intracranial hemorrhage, hematomas or masses. The internalauditory canals and cerebellopontine angles appear normal. No evidence ofsuspicious intracranial masses. Patchy bilateral T2/T2 FLAIR hyperintense foci is minimally more extensivebut overall very similar. No evidence of enhancing white matter lesions. Ventricles are normal in size and configuration. Basal cisterns arepatent. Stable flow-voids at the base of the skull. Small retention cysts in the maxillary sinuses. IMPRESSION: Findings consistent with mild-moderate chronic small vessel ischemia,minimally progressed from 09/20/2007. No other significant changes. Noexplanation for right- sided tinnitus. POS - [id number] Silva Dhaliwal MD IMG MR HEAD/NECK Final Res ult documented in this encounter Visit Diagnoses Diagnosis Tinnitus of right ear- Primary Tinnitus of right ear documented in this encounter Additional Health Concerns Infection Onset Date Last Indicated Resolved Time CoV-Risk 04/15/2021 04/15/2021 04/25/2021 1:24 AM EDT CoV-Risk 07/14/2021 07/14/2021 07/24/2021 1:22 AM EST documented as of this encounter Care Teams Scallop Shucker Relationship Specialty Start Date End Date Silva Dhaliwal MD [facility] [place] [address] PCP - General Family Medicine 02/07/18 documented as of this encounter Additional Source Comments The information contained in this document represents components of the legal health record. It is not the complete legal health record.[facility]
--- OUTSIDE RECORDS SUMMARY | 2025-07-16 16:09 | XMS_ITS | Encounter Summary ---
Author Organization [facility] Address 399 [facility] [address] [place] [address] Phone Care Team Providers Care Authorization Manager Name Role Phone Silva Dhaliwal MD Primary Care Provider [phone]- [phone] Encounter Details Date Type Department Care Team (Late st Contact Info) Description 06/29/2019 Procedure Pass [facility] [address] [place] [address] Social History Tobacco Use Types Packs/Day Years [...] documented as of this encounter Care Teams Authorization Manager Relationship Specialty Start Date End Date Silva Dhaliwal MD [address] [place] [address] PCP - General Family Medicine 02/07/18 documented as of this encounter Additional Source Comments The information contained in this document represents components of the legal health record. It is not the complete legal health record.[facility]
--- OUTSIDE RECORDS SUMMARY | 2025-07-16 16:09 | XMS_ITS | Encounter Summary ---
Author Organization [facility] Address [address] [facility] [address] [place] [address] Phone Care Team Providers Care Pantograph Watcher Name Role Phone Jessica Huang MD Primary Care Provider [phone] Silva Dhaliwal MD Primary Care Provider [phone]- [phone] Reason for Referral * Occupational Therapy (Routine) - Closed Specialty Diagnoses / Procedures Referred By Vianca garcia Referred To Contact Occupational Therapy Diagnoses Encounter for rehabilitation Right Wrist Distal Ulna Excision/Stabilzation Procedures Evaluate & Treat Leydi Garcia MD Phone: tel: fax: mailto:[email or web address] [address] Phone: tel: Referral ID Status Reason Start Date Expiration Date Visits Re quested Visits Authorized [id number] Closed 10/01/2017 08/18/2018 99 99 Encounter Details Date Type Department Care Team (Latest Contact Info) Description 10/01/2017 Transcribe Orders [facility] [address] [place] [address] Leydi Garcia MD [address] [place] [phone] [email or web address] Encounter for rehabilitation (Primary Dx) Social History [...] Diagnoses Orde r Schedule Ambulatory referral to [facility] Occupational Therapy Outpatient Referral Routine Encounter for rehabilitation Ordered: 10/01/2017 documented as of this encounter Visit Diagnoses Diagnosis Encounter for rehabilitation- Primary documented in this encounter Additional Health Concerns Infection Onset Date Last Indicated Resolved Time CoV-Risk 04/15/2021 04/15/2021 04/25/2021 1:24 AM EDT CoV-Risk 07/14/2021 07/14/2021 07/24/2021 1:22 AM EST documented as of this encounter Care Teams Pantograph Watcher Relationship Specialty Start Date End Date Jessica Huang MD [address] [place] [phone] [email or web address] PCP - General 02/16/1402/06 Silva Dhaliwal MD [address] [place] [address] PCP - General Family Medicine 02/07/18 documented as of this encounter Additional Source Comments The information contained in this document represents components of the legal health record. It is not the complete legal health record.[facility]
[2025-07-16] MEDS: Albuterol/Iprat 2.5/0.5MG 3 ML AMPUL.NEB INHALE (16:30)
[2025-07-16 16:31] VITALS: PULSE 68; RESP 16; O2SAT 96
[2025-07-16 16:46] LABS: Appearance Urine Clear; Glucose Urine UA 100 mg/dL (Negative); PH 6.0 (5.0-9.0); Specific Gravity - Urine 1.025 (1.005-1.025)
[2025-07-16 17:18] VITALS: BP 109/56; PULSE 75; RESP 22; TEMP 36.3; O2SAT 97
[2025-07-16] MEDS: Lidocaine 4 % Patch ADH..PATCH 1 PATCH TRANSDERMA (17:31)
[2025-07-16 18:00] LABS: D Dimer High Sensitivity < 150 NG/ML
[2025-07-16 18:26] VITALS: BP 109/56; PULSE 75; RESP 22; TEMP 36.3; O2SAT 97
== END 2025-07-16 18:27 | disposition home or self-care (01) ==
PROVIDERS: Physician Assistant Medical; Emergency Provider Student in an Organized Health Care Education/Training Program; PCP Family Medicine
DX: J45.20 Mild intermittent asthma, uncomplicated (principal); R06.02 Shortness of breath; R07.89 Other chest pain; R05.9 Cough, unspecified; Z79.899 Other long term (current) drug therapy; Z03.818 Encounter for observation for suspected exposure to other biological agents ruled out
CPT/HCPCS: 36415; 71046; 80053; 81003; 83735; 84484; 85025; 85379; 87637; 93005; 94640; 99284; 99285

== ENCOUNTER → 2025-07-16 13:21 | Outpatient (BNV) | payer OTHER, SELFPAY | PROVIDERS: PCP Family Medicine; Visit Provider Radiology Body Imaging | DX: R06.02 Shortness of breath (principal) | CPT/HCPCS: 71046 ==

== ENCOUNTER → 2025-07-16 13:21 | Outpatient (BNV) | payer OTHER, SELFPAY | PROVIDERS: Emergency Provider Student in an Organized Health Care Education/Training Program; PCP Family Medicine; Visit Provider Internal Medicine | DX: I25.2 Old myocardial infarction (principal) | CPT/HCPCS: 93010 ==

== ENCOUNTER 2025-08-07 16:06 | Emergency (ER) | payer OTHER, SELFPAY ==
[2025-08-07 16:55] VITALS: BP 137/64; PULSE 86; RESP 18; TEMP 36.7; O2SAT 95; BMI 27.5
--- NOTE | 2025-08-07 17:04 | ED.BACK ---
HPI - Back Pain/Injury General Chief Complaint: General Medical Stated Complaint: lower back pain Time Seen by Provider: 08/07/25 20:55 Source: patient Mode of arrival: ambulatory Limitations: no limitations History of Present Illness ED Provider: Dr. Patel HPI Narrative: 75-year-old female presented hospital today for left-sided posterior flank pain. Worsened with movement. Radiates to her left flank. Patient stated this has been going on for a couple of days. Noticed foul-smelling urine. No fever. No dysuria. History of AFib on Eliquis. Denies any trauma. Related Data Home Medications ?Medication ?Instructions ?Recorded ?Confirmed cholecalciferol (vitamin D3) 25 25 mcg PO DAILY 04/09/23 01/07/24 mcg (1,000 unit) capsule cyanocobalamin (vitamin B-12) 1,000 mcg PO DAILY 04/09/23 01/07/24 1,000 mcg capsule ipratropium 18 mcg-albuterol 103 spray inhalation 04/09/23 01/07/24 mcg/actuation aerosol inhaler lorazepam 0.5 mg tablet 0.5 mg PO DAILY PRN 04/09/23 01/07/24 sertraline 100 mg tablet 100 mg PO DAILY 04/09/23 01/07/24 trazodone 100 mg tablet 100 mg PO BEDTIME PRN 04/09/23 01/07/24 cetirizine 10 mg capsule (All Day 10 mg PO DAILY 04/30/23 01/07/24 Allergy (cetirizine)) mometasone-formoterol HFA 200 2 puff inhalation BID 09/17/23 01/07/24 mcg-5 mcg/actuation aerosol inhaler (Dulera) ipratropium 0.5 mg-albuterol 3 mg 3 ml inhalation Q6H PRN wheezing 12/01/24 12/01/24 (2.5 mg base)/3 mL nebulization soln Previous Rx's ?Medication ?Instructions ?Recorded apixaban 5 mg tablet (Eliquis) 5 mg PO BID #60 tabs 06/25/23 diltiazem HCl 240 mg capsule,24 240 mg PO QAM #90 caps 06/25/23 hr,extended release montelukast 10 mg tablet 10 mg PO DAILY allergic rhinitis 07/21/24 (Singulair) 30 days #30 tabs acetaminophen 500 mg tablet 1,000 mg (2 x 500 mg) PO Q8H 10 07/16/25 days #60 tabs azithromycin 250 mg tablet See Rx Instructions PO .COMPLEX #6 07/16/25 tabs lidocaine 5 % topical patch 1 patch topical DAILY #15 ea 07/16/25 prednisone 20 mg tablet 40 mg (2 x 20 mg) PO DAILY 5 days 07/16/25 #10 tabs acetaminophen 500 mg tablet 1,000 mg (2 x 500 mg) PO Q8H 10 08/07/25 days #60 tabs diazepam 2 mg tablet (Valium) 2 mg PO BID PRN muscle spasm 5 08/07/25 days #14 tabs lidocaine 5 % topical patch 1 patch topical DAILY #15 ea 08/07/25 Allergies Allergy/AdvReac Type Severity Reaction Status Date / Time hydromorphone (From Dilaudid) AdvReac Itching Verified 08/07/25 16:57 Review of Systems Review of Systems: Pertinent review of systems as mentioned in HPI. All other system otherwise negative. [facility] Past Medical History [facility] Narrative: Medical history as mentioned in HPI Medical History Allergic rhinitis Somnolence, daytime MARITZA (obstructive sleep apnea) CAD (coronary artery disease) Severe asthma Diabetes Paroxysmal atrial fibrillation Left ankle injury Surgical History History of section History of tubal ligation H/O right knee surgery Social History Social History Alcohol intake: never Patient Tobacco Use Status: Former Tobacco user Smoked in Last 30 Days: No Use of substances other than those prescribed or required for medical reasons: No Advance Directives: No Advance Directives Information Provided: No Do you have a plan to hurt others: No Plan Physical Exam Exam: Exam: General: Pleasant, no distress, interacting appropriately Head: Normacephalic, atraumatic ENT: oral mucosa moist, neck supple, no tracheal deviation Cardiovascular: regular rate, regular rhythm, no murmurs, rubbing, gallops Respiratory: CTAB, no wheeze, rales, rhonchi Gastrointestinal: Soft, non distended, non tender, non guarding MSK: Left-sided posterior thorax pain on palpation. side. This is reproducible on exam. Worsening when rotating her thorax left and right. 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 Deferred additional HPI, ROS, PE to primary provider. 75 yo female with a history of Afib, asthma Here with back pain, left flank pain and foul-smelling urine. Will check urine, labs VSS Medical Decision Making Medical Decision Making MDM Narrative: 75-year-old female history of AFib on Eliquis, diabetes, asthma presented hospital today for evaluation of left-sided posterior thorax pain. Lab work did not show any signs of UTI. Patient's pain is on a posterior left chest we will obtain a chest x-ray. Otherwise lab work is unremarkable. CBC CMP was obtained for the patient. I suspect this is musculoskeletal in nature. I did perform a bedside ultrasound. No sign of hydronephrosis on bilateral kidneys. I have low suspicion for a kidney stone. Patient's UA did not show any signs of blood. No sign of UTI. We will plan to give patient some Tylenol and naproxen. Lidocaine patch will be given to the patient as well. A dose of Flexeril will be given to the patient we will plan to reassess patient's pain. At this time we will evaluation the patient does not have sepsis. Patient will like to defer the chest x-ray at this time. Patient is driving home. We will hold off given her the Flexeril. We will plan to prescribe patient a course of Valium to take p.r.n. for her muscle spasm. Patient has taken Flexeril at home without any alleviation of her pain. I did discuss the option of considering a CT imaging of the abdomen and pelvis however patient is deferring it as it may take some time. I do think the patient's presentation is muscular in nature. Ultrasound did not show any signs of hydronephrosis. I do not think this is renal in nature. Patient appears to be well and stable. We will plan to discharge patient with a course of Tylenol, lidocaine patch. And p.r.n. Valium to take for her pain. Differential Diagnosis Differential Diagnoses: The differential diagnosis associated with the presentation includes Costochondritis, back pain, pneumonia, nephrolithiasis, UTI, pyelonephritis Lab Data MDM Lab Attestation statement: I reviewed the patient's lab results. 08/07/25 17:55 08/07/25 17:55 Labs: Lab Results 08/07/25 Range/Units 17:55 WBC 4.1 L (4.8-10.8) X10*3/uL RBC 3.97 L (4.20-5.50) X10*6/uL Hgb 12.9 (12.0-16.0) g/dl Hct 36.4 L (37.0-47.0) % MCV 91.7 (80.0-98.0) fL MCH 32.5 (27.0-33.0) pg MCHC 35.4 H (31.0-35.0) g/dl RDW 12.1 (11.0-16.0) % Plt Count 219 (160-400) X10*3/uL MPV 9.7 (9.4-12.3) fL Immature Gran % (Auto) 0.5 H (0.0-0.4) % Neut % (Auto) 53.9 (45-73) % Lymph % (Auto) 31.3 (20-40) % Garland % (Auto) 10.1 (2-11) % Eos % (Auto) 3.0 (0-4) % Baso % (Auto) 1.2 (0-2) % Lymph # (Auto) 1.3 (1.2-4.9) X10*3/uL Garland # (Auto) 0.4 (0.1-1.2) X10*3/uL Eos # (Auto) 0.1 (0.0-0.4) X10*3/uL Baso # (Auto) 0.1 (0.0-0.2) X10*3/uL Abs Immat Gran (auto) 0.02 (0.00-0.03) X10*3/uL Absolute Neuts (auto) 2.2 (2.0-8.3) x10*3/uL Absolute Nucleated RBC 0.000 (0.0-0.012) X10*3/uL Nucleated RBC % (auto) 0.0 (0.0-0.2) /100WBC Sodium 138 (135-145) mmol/L Potassium 4.7 (3.3-5.1) mmol/L Chloride 104 (96-108) mmol/L Carbon Dioxide 22 (22-29) mmol/L Anion Gap 17 (12-20) BUN 13 (9-16) mg/dL Creatinine 0.56 (0.5-1.4) mg/dL Estim Creat Clear Calc 77.8 Estimated GFR > 60 Random Glucose 205 H (60-115) mg/dL Calcium 9.9 (8.4-10.2) mg/dL Total Bilirubin 0.2 (0.0-1.0) mg/dL Direct Bilirubin < 0.2 (0.0-0.5) mg/dL AST 27 (5-31) U/L ALT 36 H (0-31) U/L Alkaline Phosphatase 87 (39-117) U/L Total Protein 6.9 (6.5-8.0) g/dL Albumin 4.5 (3.5-5.0) g/dL Urine Color Yellow Urine Appearance Clear Urine pH 6.5 (5.0-9.0) Ur Specific Marble 1.015 (1.005-1.025) Urine Protein Negative (Neg-Trace) mg/dL Urine Glucose (UA) Negative (Negative) mg/dL Urine Ketones Negative (Negative) mg/dL Urine Blood Negative (Negative) Urine Nitrite Negative (Negative) Ur Leukocyte Esterase Negative (Negative) Discharge Plan Discharge Clinical Impression: Acute flank pain Patient Disposition: Home, Self-Care Additional Instructions: I suspect the pain is musuclar in nature. No signs of swelling of kidney on US. Kidney function is well. Urinalysis did not show infection or blood. Prescriptions: New diazepam [Valium] 2 mg tablet 2 mg PO BID PRN (Reason: muscle spasm) 5 Days Qty: 14 0RF acetaminophen 500 mg tablet 1,000 mg PO Q8H 10 Days Qty: 60 0RF lidocaine 5 % adhesive patch,medicated 1 patch topical DAILY Qty: 15 0RF Rx Instructions: leave on most painful area for up to 12 hrs No Action Eliquis 5 mg tablet 5 mg PO BID Qty: 60 1RF diltiazem HCl 240 mg capsule,extended release 24 hr 240 mg PO QAM Qty: 90 1RF prednisone 20 mg tablet 40 mg PO DAILY 5 Days Qty: 10 0RF azithromycin 250 mg tablet See Rx Instructions .ROUTE .COMPLEX Qty: 6 0RF Rx Instructions: For 250 mg dose pack: take 500 mg today (day 1), then 250 mg for 4 days (days 2-5) acetaminophen 500 mg tablet 1,000 mg PO Q8H 10 Days Qty: 60 0RF lidocaine 5 % adhesive patch,medicated 1 patch topical DAILY Qty: 15 0RF Rx Instructions: leave on most painful area for up to 12 hrs Dulera 200-5 mcg/actuation HFA aerosol inhaler 2 puff inhalation BID lorazepam 0.5 mg tablet 0.5 mg PO DAILY PRN ipratropium-albuterol 18-103 mcg/actuation aerosol inhalation cholecalciferol (vitamin D3) 25 mcg (1,000 unit) capsule 25 mcg PO DAILY cyanocobalamin (vitamin B-12) 1,000 mcg capsule 1,000 mcg PO DAILY sertraline 100 mg tablet 100 mg PO DAILY trazodone 100 mg tablet 100 mg PO BEDTIME PRN All Day Allergy (cetirizine) 10 mg capsule 10 mg PO DAILY montelukast [Singulair] 10 mg tablet 10 mg PO DAILY 30 Days Qty: 30 3RF ipratropium-albuterol 0.5 mg-3 mg(2.5 mg base)/3 mL solution for nebulization 3 ml inhalation Q6H PRN (Reason: wheezing) Print Language: Croatian
[2025-08-07 18:04] LABS: MANUAL DIFF FLAG NO
[2025-08-07 18:05] LABS: Hematocrit 36.4 % (37.0-47.0); Hemoglobin 12.9 g/dl (12.0-16.0); Imm Gran Abs Auto 0.02 X10*3/uL (0.00-0.03); Imm Gran Pct Auto 0.5 % (0.0-0.4); Lymphocytes Absolute Auto 1.3 X10*3/uL (1.2-4.9); Mean Corpuscular HGB Conc 35.4 g/dl (31.0-35.0); Mean Corpuscular Hemoglobin 32.5 pg (27.0-33.0); Mean Corpuscular Volume 91.7 fL (80.0-98.0); NRBC Abs Auto 0.000 X10*3/uL (0.0-0.012); NRBC Pct Auto 0.0 /100WBC (0.0-0.2); Platelet Count 219 X10*3/uL (160-400); Red Blood Count 3.97 X10*6/uL (4.20-5.50); White Blood Count 4.1 X10*3/uL (4.8-10.8)
[2025-08-07 18:11] LABS: Appearance Urine Clear; Glucose Urine UA Negative (Negative); PH 6.5 (5.0-9.0); Specific Gravity - Urine 1.015 (1.005-1.025)
--- OUTSIDE RECORDS SUMMARY | 2025-08-07 18:19 | XMS_ITS | Encounter Summary ---
Author Organization [facility] Address [address] [facility] [address] [place] [address] Phone Care Team Providers Care Bus Steward Name Role Phone Silva Dhaliwal MD Primary Care Provider [phone]- [phone] Reason for Referral * MRI/CAT Scan - [...] Expiration Date Visits Re quested Visits Authorized [id number] Closed 11/03/2021 06/05/[phone] Encounter Details Date Type Department Care Team (Latest Contact Info) Description 12/05/2021 Transcribe Orders Virtual Department [address] [place] [address] Criselda Carrasco PA [address] [place] [address] Epigastric pain (Primary Dx); LLQ pain Social [...] quadrant documented in this encounter Care Teams Bus Steward Relationship Specialty Start Date End Date Silva Dhaliwal MD [address] [place] [address] PCP - General Family Medicine 02/07/18 documented as of this encounter Additional Source Comments The information contained in this document represents components of the legal health record. It is not the complete legal health record.[facility]
--- OUTSIDE RECORDS SUMMARY | 2025-08-07 18:19 | XMS_ITS | Encounter Summary ---
Author Organization [facility] Address [address] [facility] [address] [place] [address] Phone Care Team Providers Care Bottom Turning Lathe Turner Name Role Phone Silva Dhaliwal MD Primary Care Provider [phone]- [phone] Encounter Details Date Type Department Care Team (Latest Contact Info) Description 05/08/2024 Transcribe Orders Virtual Department [address] [place] [address] Silva Dhaliwal MD [address] [place], [place] [id number] Breast screening (Primary Dx) Social History Tobacco [...] unspecified documented in this encounter Care Teams Bottom Turning Lathe Turner Relationship Specialty Start Date End Date Silva Dhaliwal MD [address] [place] [address] PCP - General Family Medicine 02/07/18 documented as of this encounter Additional Source Comments The information contained in this document represents components of the legal health record. It is not the complete legal health record.[facility]
--- OUTSIDE RECORDS SUMMARY | 2025-08-07 18:19 | XMS_ITS | Encounter Summary ---
Author Organization [facility] Address [address] [facility] [address] [place] [address] Phone Care Team Providers Care Porter Marina Name Role Phone Silva Dhaliwal MD Primary Care Provider +1- [phone] Encounter Details Date Type Department Care Team (Late st Contact Info) Description 12/18/2022 Procedure Pass [facility] Endoscopy Admitting Dept Virtual Department [address] [place] [address] Social History Tobacco Use Types Packs/Day Years [...] on filedocumented in this encounter Care Teams Porter Marina Relationship Specialty Start Date End Date Silva Dhaliwal MD [address] [place] [address] PCP - General Family Medicine 02/07/18 documented as of this encounter Additional Source Comments The information contained in this document represents components of the legal health record. It is not the complete legal health record.[facility]
--- OUTSIDE RECORDS SUMMARY | 2025-08-07 18:19 | XMS_ITS | Encounter Summary ---
Author Organization [facility] Address [address] [facility] [address] [place] [address] Phone Care Team Providers Care Marketing Recruiter Name Role Phone Silva Dhaliwal MD Primary Care Provider +1- [phone] Encounter Details Date Type Department Care Team (Late st Contact Info) Description 01/03/2022 Procedure Pass [facility], Ct Scan - [address] [address] Social History Tobacco Use Types Packs/Day Years [...] on filedocumented in this encounter Care Teams Marketing Recruiter Relationship Specialty Start Date End Date Silva Dhaliwal MD [address] [place] [address] PCP - General Family Medicine 02/07/18 documented as of this encounter Additional Source Comments The information contained in this document represents components of the legal health record. It is not the complete legal health record.[facility]
--- OUTSIDE RECORDS SUMMARY | 2025-08-07 18:19 | XMS_ITS | Encounter Summary ---
Author Organization [facility] Address [address] [facility] [address] [place] [address] Phone Care Team Providers Care Concrete Laborer Name Role Phone Silva Dhaliwal MD Primary Care Provider +1- [phone] Encounter Details Date Type Department Care Team (Late st Contact Info) Description 12/05/2021 Procedure Pass [facility], Ct Scan - [address] [address] Social History Tobacco Use Types Packs/Day Years [...] on filedocumented in this encounter Care Teams Concrete Laborer Relationship Specialty Start Date End Date Silva Dhaliwal MD [address] [place] [address] PCP - General Family Medicine 02/07/18 documented as of this encounter Additional Source Comments The information contained in this document represents components of the legal health record. It is not the complete legal health record.[facility]
--- OUTSIDE RECORDS SUMMARY | 2025-08-07 18:19 | XMS_ITS | Encounter Summary ---
Author Organization [facility] Address [address] [facility] [address] [place] [address] Phone Care Team Providers Care Loan Underwriter Name Role Phone Silva Dhaliwal MD Primary Care Provider +1- [phone] Reason for Referral * Hospital - Outpatient - Closed Specialty Diagnoses / Procedures Referred By Vianca t Referred To Contact Radiology Diagnoses Spinal stenosis, lumbar region with neurogenic claudication Procedures MRI Lumbar Spine CHG MRI, LUMBAR SPINE CHG MRI, LUMBAR SPINE COMBO Akira Tilley MD Phone: tel: fax: [email or web address] Referral ID Status Reason Start Date Expiration Date Visits Re quested Visits Authorized [id number] Closed 11/16/2021 01/15/[phone] Encounter Details Date Type Department Care Team (Late st Contact Info) Description 11/16/2021 Transcribe Orders Virtual Department [address] [place] [address] Akira Tilley MD [address] [place] [address] [email or web address] Spinal stenosis, lumbar region with neurogenic claudication [...] regions possibly impinge on the descending right [id number] root, ligamentum flavum thickening, and mild bilateral [...] claudication documented in this encounter Care Teams Loan Underwriter Relationship Specialty Start Date End Date Silva Dhaliwal MD [address] [place] [address] PCP - General Family Medicine 02/07/18 documented as of this encounter Additional Source Comments The information contained in this document represents components of the legal health record. It is not the complete legal health record.[facility]
--- OUTSIDE RECORDS SUMMARY | 2025-08-07 18:19 | XMS_ITS | Encounter Summary ---
Author Organization [facility] Address [address] [facility] [address] [place] [address] Phone Care Team Providers Care Printed Circuit Board Reworker Name Role Phone Silva Dhaliwal MD Primary Care Provider +1- [phone] Encounter Details Date Type Department Care Team (Latest Contact Info) Description 01/10/2022 Transcribe Orders Virtual Department [address] [place] [address] Criselda Carrasco PA [address] [place], [place] [phone] Pre-operative laboratory examination (Primary Dx) Social History [...] examination documented in this encounter Care Teams Printed Circuit Board Reworker Relationship Specialty Start Date End Date Silva Dhaliwal MD [address] [place] [address] PCP - General Family Medicine 02/07/18 documented as of this encounter Additional Source Comments The information contained in this document represents components of the legal health record. It is not the complete legal health record.[facility]
--- OUTSIDE RECORDS SUMMARY | 2025-08-07 18:19 | XMS_ITS | Encounter Summary ---
Author Organization [facility] Address [address] [facility] [address] [place] [address] Phone Care Team Providers Care Personnel Generalist Manager Name Role Phone Silva Dhaliwal MD Primary Care Provider +1- [phone] Reason for Referral * MRI/CAT Scan - Closed Specialty Diagnoses / Procedures Referred By Vianca garcia Referred To Contact Radiology Diagnoses LLQ abdominal pain Procedures CT Abdomen/Pelvis CHG CT SCAN,ABDOMENT AND PELVIS,W CONTRAST CHG CT SCAN,ABDOMENT AND PELVIS,COMBO CHG CT SCAN,ABDOMENT AND PELVIS,W/O CONTRAST Criselda Carrasco PA [address] [place] [address] Phone: tel: fax: Referral ID Status Reason Start Date Expiration Date Visits Re quested Visits Authorized [id number] Closed 10/29/2024 02/24/2025 1 1 Encounter Details Date Type Department Care Team (Latest Contact Info) Description 10/29/2024 Transcribe Orders Virtual Department [address] [place] [address] Criselda Carrasco PA [address] [place] [phone] LLQ abdominal pain (Primary Dx) Social History [...] quadrant documented in this encounter Care Teams Personnel Generalist Manager Relationship Specialty Start Date End Date Silva Dhaliwal MD [facility] [place] [address] PCP - General Family Medicine 02/07/18 documented as of this encounter Additional Source Comments The information contained in this document represents components of the legal health record. It is not the complete legal health record.[facility]
--- OUTSIDE RECORDS SUMMARY | 2025-08-07 18:19 | XMS_ITS | Clinical Summary ---
Author Organization [facility] Address [address] [facility] [address] [place] [address] Phone Care Team Providers Care Brush Clearer Surveying Name Role Phone Silva Dhaliwal MD Primary Care Provider +1- [phone] Allergies Active Allergy Reactions Criticality Noted Date [...] Event [facility] Admitting Dept Virtual Department [address] [place] [address] Carlos Garrett MD 5 10:15 AM EST - 5 10:30 AM EST Surgery [facility] Endoscopy Admitting Dept Virtual Department [address] [place] [address] Black Bey MD ESOPHAGOGASTRODUODENOSCOPY 5 9:06 AM EST - 5 11:45 PM EST Hospital Encounter [facility] End[facility] Admitting Dept Virtual Department [address] [place] [address] Black Bey MD Discharge Disposition: Home or Self Care 5 Procedure Pass [facility] Endoscopy Admitting Dept Virtual Department [address] [place] [address] 5 9:00 AM EDT Pre-Admission Testing Pre Procedure Evaluation [address] [place] [address] Black Bey MD 5 Transcribe Orders [facility] [address] [place] [address] Silva Dhaliwal MD Encounter for screening for [...] this topic Medical Devices Implanted Type Area Metal Stamper Device Identifier Shelf Expiration Date Model / Serial / Lot Rt. Knee,Wrist. Lt. Ankle Description:Left ankle, Righ t Knee, Right Wrist Clip Hemostasis Duraclip 16mm 235cm Lower Bx/10ea - [id number] Implanted:Qty: 1 on 02/12/2019 by Black Bey MD at [facility] CONMED [id number] / / Clip Hemostasis 16mm Cs/5ea - [id number] Implanted:Qty: 1 on 06/21/2025 by Black Bey MD at [facility] N/A: [employer] [id number] / / Procedures Procedure Name Priority Date/Time Associated Diagnosis Comments TISSUE EXAM Routine 06/21/2025 10:51 AM EST NV COLSC FLX W/RMVL OF TUMOR POLYP LESION SNARE TQ 06/21/2025 10:46 AM EST EGD/COLON Special Needs PAF / Eliquis , DM2, asthma, uses cane NV COLONOSCOPY W/BIOPSY SINGLE/MULTIPLE 06/21/2025 10:46 AM EST EGD/COLON Special Needs PAF / Eliquis , DM2, asthma, uses cane NV COLONOSCOPY FLX DX W/CLIFF J SPEC WHEN PFRMD 06/21/2025 10:46 AM EST EGD/COLON Special Needs PAF / Eliquis , DM2, asthma, uses cane NV EDG TRANSORAL BIOPSY SINGLE/MULTIPLE 06/21/2025 10:46 AM EST EGD/COLON Special Needs PAF / Eliquis , DM2, asthma, uses cane NV ESOPHAGOGASTRODUODENOSCOP Y TRANSORAL DIAGNOSTIC 06/21/2025 10:46 AM [...] D. COLON, CECUM: Adenomatous polyp. 1:03 PM [facility] at 1303 EST Clinical History Pre-op diagnosis: EGD/COLON 1:03 PM [facility] Gross Description A. STOMACH: Received in [...] Grossed by: BONNIE Arzola PA(ASCP) 1:03 PM [facility] Grossed By Partha Brown 1:03 PM [facility] Result Priority Level Routine 1:03 PM [facility] Disclaimer By their signature mik santiago, [...] those provided in this report. 1:03 PM [facility] Procedure ESOPHAGOGASTRODUODEN OSCOPY COLONOSCOPY 1:03 PM [facility] Gastrointestinal Tissue (Stomach) 06/21/2025 10:51 AM [...] MD LAB PATHOLOGY ORDERABLES Final R esult [address] [address] * ENDOSCOPY PROCEDURE (06/21/2025 10:44 AM EST) Narrative Transcriptions Black Bey MD - 06/21/2025 10:44 AM EST [facility] Patient Name: Annemarie Harding Attending MD:: BLACK BEY MD, , Procedure Date: 06/21/2025 10:44 AM Date of : 1950 Age: 75 Admit Type: Outpatient Gender: Female Room: [place] [address] Referring MD: Silva Dhaliwal MD Exam Type: [...] 10:44 AM Procedure Code(s): --- Professional --- 92838, Esophagogastroduodenoscopy, flexible, transoral; with biopsy, single or multiple --- Technical --- 76786, Esophagogastroduodenoscopy, flexible, transoral; with biopsy, single or [...] Dysphagia, unspecified R12, Heartburn CPT copyright 2021 [employer]. All rights reserved. The codes documented in this report are preliminary and upon envelope cutter reviewmay be revised to meet current compliance requirements. Procedure Date: 06/21/2025 10:44:[address] [place] [address] [id number] us Silva Dhaliwal MD GI PROCEDURE ORDERABLES Fi nal Result * ENDOSCOPY, COLON (06/21/2025 10:43 AM EST) Narrative Transcriptions Black Bey MD - 06/21/2025 10:43 AM EST [facility] Patient Name: Annemarie Harding Attending MD:: BLACK BEY MD, , Procedure Date: 06/21/2025 10:43 AM Date of : 1950 Age: 75 Admit Type: Outpatient Gender: Female Room: [place] [address] Referring MD: Silva Dhaliwal MD Exam Type: [...] monitored continuously. The Olympus adult variable colonoscope [id number] #7 was introduced through the anus and advanced to the cecum, identified by appendiceal orifice andileocecal valve. The colonoscopy was performed without difficulty. The patient tolerated the procedurewell. The quality of the bowel preparation was excellent. The quality of the bowel preparation was evaluated using the BBPS ([place] Bowel Preparation Scale)with scores of: Right Colon [...] 10:43 AM Procedure Code(s): --- Professional --- 35999, Colonoscopy, flexible; with removal of tumor(s), polyp(s), or other lesion(s) by snare technique --- Technical --- 87303, Colonoscopy, flexible; with removal of tumor(s), polyp(s), or other lesion(s) by snare technique Diagnosis Code(s): --- Professional --- Z86.010, Personal history of colonic polyps D12.0, Benign neoplasm of cecum K64.8, Other hemorrhoids R10.84, Generalized abdominal pain --- Technical --- Z86.010, Personal history of colonic polyps D12.0, Benign neoplasm of cecum K64.8, Other hemorrhoids R10.84, Generalized abdominal pain CPT copyright 2021 [employer]. All rights reserved. The codes documented in this report are preliminary and upon envelope cutter reviewmay be revised to meet current compliance requirements. Procedure Date: 06/21/2025 10:43:[address] [place] [address] Silva Dhaliwal MD GI PROCEDURE ORDERABLES Fi nal Result * (ABNORMAL) Basic metabolic panel (10/27/2024 9:57 AM EDT) SODIUM 138 133 - 146 mmol/L [facility] CHLORIDE 101 96 - 108 mmol/L [facility] POTASSIUM 4.7 3.3 - 5.1 mmol/L [facility] Comment:Specimen slightly he molyzed, result may be falsely elevated. CO2 23 21 - 35 mmol/L [facility] BUN 8 6 - 19 mg/dL [facility] CREATININE 0.50 0.5 - 1.5 mg/dL [facility] GLUCOSE 151(H) 70 - 99 mg/dL [facility] CALCIUM 9.9 8.4 - 10.3 mg/dL [facility] EGFR 100 >59 mL/min/1.7 3m2 [facility] Comment:Estimated glomerular filtration rate calculated using the CKD-EPI refit equation. ANION GAP 19 10 - 20 mmol/L [facility] Blood 10/27/2024 9:57 AM EDT 10/27/2024 10:01 AM EDT us Criselda ROJAS LAB BLOOD BKR ORDERABLES Fi nal Result [facility] [address] [place] [address] * (ABNORMAL) Hemoglobin A1c (08/08/2022 11:45 AM EST) HEMOGLOBIN A1C 6.0(H) 4.3 - 5.8 % [facility] Blood 08/08/2022 11:4 5 AM EST 08/08/2022 11:54 AM EST us Aftab Porter MD LAB BLOOD BKR ORDERABLES Fin al Result [facility] [address] [place] [address] * BI MAMMOGRAM SCREENING WITH TOMOSYNTHESIS WITH [...] Maintenance Insurance MEDICARE PART A & B [facility] MEDICARE PART A & B MEDICARE PART A & B Member Subscriber Plan / Payer ( fective 2008-Present) Name:Annemarie Harding Member ID:[id number] Relation to Subscriber:Self Name:Annemarie Harding Subscriber ID:[id number] Payer ID:[id number] Group ID:Not on file Type:Medicare Address: [employer] [address] MEDICARE PART A & B Member Subscriber Plan / Payer (Ef fective 2008-Present) Name:Annemarie Harding Member ID:[id number] Relation to Subscriber:Self Name:Annemarie Harding Subscriber ID:[id number] Payer ID:[id number] Group ID:Not on file Type:Medicare Address: [employer] [facility] [address] [address] [facility] MEDICARE PART A & B MEDICARE PART A & B MEDICARE PART A & B Member Subscriber Plan / Payer ( fective 2008-Present) Name:Annemarie Harding Member ID:[id number] Relation to Subscriber:Self Name:Annemarie Harding Subscriber ID:[id number] Payer ID:[id number] Group ID:Not on file Type:Medicare Address: [employer] [address] MEDICARE PART A & B Member Subscriber Plan / Payer ( fective 2008-Present) Name:Annemarie Harding Member ID:[id number] Relation to Subscriber:Self Name:Annemarie Harding Subscriber ID:[id number] Payer ID:[id number] Group ID:Not on file Type:Medicare Address: [employer] [address] MEDICARE PART A & B [facility] Care Teams Brush Clearer Surveying Relationship Specialty Start Date End Date Silva Dhaliwal MD [address] [place] [address] PCP - General Family Medicine 02/07/18 Additional Source Comments The information contained in this document represents components of the legal health record. It is not the complete legal health record.[facility]
--- OUTSIDE RECORDS SUMMARY | 2025-08-07 18:19 | XMS_ITS | Encounter Summary ---
Author Organization [facility] Address [address] [facility] [address] [place] [address] Phone Care Team Providers Care Statue Maker Name Role Phone Silva Dhaliwal MD Primary Care Provider +1- [phone] Encounter Details Date Type Department Care Team (Late st Contact Info) Description 10/29/2024 Procedure Pass [facility], Ct Scan - [facility] [address] [place] [address] Social History Tobacco Use Types Packs/Day Years [...] on filedocumented in this encounter Care Teams Statue Maker Relationship Specialty Start Date End Date Silva Dhaliwal MD [address] [place] [address] PCP - General Family Medicine 02/07/18 documented as of this encounter Additional Source Comments The information contained in this document represents components of the legal health record. It is not the complete legal health record.[facility]
--- OUTSIDE RECORDS SUMMARY | 2025-08-07 18:19 | XMS_ITS | Encounter Summary ---
Author Organization [facility] Address [address] [facility] [address] [place] [address] Phone Care Team Providers Care Bottle Gauger Name Role Phone Silva Dhaliwal MD Primary Care Provider +1- [phone] Encounter Details Date Type Department Care Team (Late st Contact Info) Description 06/26/2022 Procedure Pass [facility], [facility] - [address] [address] Social History Tobacco Use Types Packs/Day Years [...] on filedocumented in this encounter Care Teams Bottle Gauger Relationship Specialty Start Date End Date Silva Dhaliwal MD [address] [place] [address] PCP - General Family Medicine 02/07/18 documented as of this encounter Additional Source Comments The information contained in this document represents components of the legal health record. It is not the complete legal health record.[facility]
--- OUTSIDE RECORDS SUMMARY | 2025-08-07 18:19 | XMS_ITS | Encounter Summary ---
Author Organization [facility] Address [address] [facility] [address] [place] [address] Phone Care Team Providers Care Singing Telegram Performer Name Role Phone Silva Dhaliwal MD Primary Care Provider +1- [phone] Encounter Details Date Type Department Care Team (Late st Contact Info) Description 11/16/2021 Procedure Pass [facility], [facility] - [address] [address] Social History Tobacco Use Types Packs/Day Years [...] on filedocumented in this encounter Care Teams Singing Telegram Performer Relationship Specialty Start Date End Date Silva Dhaliwal MD [address] [place] [address] PCP - General Family Medicine 02/07/18 documented as of this encounter Additional Source Comments The information contained in this document represents components of the legal health record. It is not the complete legal health record.[facility]
--- OUTSIDE RECORDS SUMMARY | 2025-08-07 18:19 | XMS_ITS | Encounter Summary ---
Author Organization [facility] Address [address] [facility] [address] [place] [address] Phone Care Team Providers Care Foil Spinner Name Role Phone Silva Dhaliwal MD Primary Care Provider +1- [phone] Encounter Details Date Type Department Care Team (Late st Contact Info) Description 03/29/2020 Ancillary Orders Virtual Department [address] [place] [address] Silva Dhaliwal MD [address] [place] [address] Breast screening Social History Tobacco Use Types [...] documented as of this encounter Care Teams Foil Spinner Relationship Specialty Start Date End Date Silva Dhaliwal MD [address] [place] [address] PCP - General Family Medicine 02/07/18 documented as of this encounter Additional Source Comments The information contained in this document represents components of the legal health record. It is not the complete legal health record.[facility]
--- OUTSIDE RECORDS SUMMARY | 2025-08-07 18:19 | XMS_ITS | Encounter Summary ---
Author Organization [facility] Address [address] [facility] [address] [place] [address] Phone Care Team Providers Care Media Account Executive Name Role Phone Silva Dhaliwal MD Primary Care Provider +1- [phone] Encounter Details Date Type Department Care Team (Late st Contact Info) Description 04/25/2020 Procedure Pass [facility], [facility] [address] [place] [address] Social History Tobacco Use Types Packs/Day Years [...] documented as of this encounter Care Teams Media Account Executive Relationship Specialty Start Date End Date Silva Dhaliwal MD [address] [place] [address] PCP - General Family Medicine 02/07/18 documented as of this encounter Additional Source Comments The information contained in this document represents components of the legal health record. It is not the complete legal health record.[facility]
--- OUTSIDE RECORDS SUMMARY | 2025-08-07 18:20 | XMS_ITS | Encounter Summary ---
Author Organization [facility] Address [address] [facility] [address] [place] [address] Phone Care Team Providers Care Brand Recorder Name Role Phone Jessica Huang MD Primary Care Provider [phone] Silva Dhaliwal MD Primary Care Provider +1- [phone] Encounter Details Date Type Department Care Team (Late st Contact Info) Description 02/04/2018 Ancillary Orders Virtual Department [address] [place] [address] Silva Dhaliwal MD [address] [place] [address] Visit for screening mammogram; Encounter for screening [...] There are scattered fibroglandular densities. POS - [id number] Narrative 04/17/2018 1:14 PM EDT Full-field digital [...] There are scattered fibroglandular densities. POS - [id number] Silva Dhaliwal MD IMG MG EXAMS Final [...] documented as of this encounter Care Teams Brand Recorder Relationship Specialty Start Date End Date Jessica Huang MD [address] [place] [address] [email or web address] PCP - General 02/16/1402/06 Silva Dhaliwal MD [address] [place] [address] PCP - General Family Medicine 02/07/18 documented as of this encounter Additional Source Comments The information contained in this document represents components of the legal health record. It is not the complete legal health record.[facility]
--- OUTSIDE RECORDS SUMMARY | 2025-08-07 18:20 | XMS_ITS | Encounter Summary ---
Author Organization [facility] Address [address] [facility] [address] [place] [address] Phone Care Team Providers Care Linter Tender Name Role Phone Silva Dhaliwal MD Primary Care Provider +1- [phone] Encounter Details Date Type Department Care Team (Latest Contact Info) Description 06/18/2019 Transcribe Orders Virtual Department [address] [place] [address] Silva Dhaliwal MD [address] [place] [address] Right thyroid nodule (Primary Dx) Social History [...] documented as of this encounter Care Teams Linter Tender Relationship Specialty Start Date End Date Silva Dhaliwal MD [address] [place] [address] PCP - General Family Medicine 02/07/18 documented as of this encounter Additional Source Comments The information contained in this document represents components of the legal health record. It is not the complete legal health record.[facility]
--- OUTSIDE RECORDS SUMMARY | 2025-08-07 18:20 | XMS_ITS | Encounter Summary ---
Author Organization [facility] Address [address] [facility] [address] [place] [address] Phone Care Team Providers Care Shrimping Boat Captain Name Role Phone Silva Dhaliwal MD Primary Care Provider +1- [phone] Encounter Details Date Type Department Care Team (Late st Contact Info) Description 2019 Procedure Pass [facility], [address] [place] [address] Social History Tobacco Use Types Packs/Day Years [...] documented as of this encounter Care Teams Shrimping Boat Captain Relationship Specialty Start Date End Date Silva Dhaliwal MD [address] [place] [address] PCP - General Family Medicine 02/07/18 documented as of this encounter Additional Source Comments The information contained in this document represents components of the legal health record. It is not the complete legal health record.[facility]
--- OUTSIDE RECORDS SUMMARY | 2025-08-07 18:20 | XMS_ITS | Encounter Summary ---
Author Organization [facility] Address [address] [facility] [address] [place] [address] Phone Care Team Providers Care Drug And Alcohol Treatment Specialist Name Role Phone Silva Dhaliwal MD Primary Care Provider [phone]- [phone] Encounter Details Date Type Department Care Team (Late st Contact Info) Description 02/12/2019 Procedure Pass [facility] Endoscopy Admitting Dept Virtual Department [address] [place] [address] Social History Tobacco Use Types Packs/Day Years [...] documented as of this encounter Care Teams Drug And Alcohol Treatment Specialist Relationship Specialty Start Date End Date Silva Dhaliwal MD [address] [place] [address] PCP - General Family Medicine 02/07/18 documented as of this encounter Additional Source Comments The information contained in this document represents components of the legal health record. It is not the complete legal health record.[facility]
--- OUTSIDE RECORDS SUMMARY | 2025-08-07 18:20 | XMS_ITS | Encounter Summary ---
Author Organization [facility] Address [address] [facility] [address] [place] [address] Phone Care Team Providers Care Support Services Tech Name Role Phone Silva Dhaliwal MD Primary Care Provider +1- [phone] Encounter Details Date Type Department Care Team (Late st Contact Info) Description 07/15/2022 Procedure Pass [facility], Ct Scan - [address] [address] Social History Tobacco Use Types Packs/Day Years [...] on filedocumented in this encounter Care Teams Support Services Tech Relationship Specialty Start Date End Date Silva Dhaliwal MD [address] [place] [address] PCP - General Family Medicine 02/07/18 documented as of this encounter Additional Source Comments The information contained in this document represents components of the legal health record. It is not the complete legal health record.[facility]
--- OUTSIDE RECORDS SUMMARY | 2025-08-07 18:20 | XMS_ITS | Encounter Summary ---
Author Organization [facility] Address [address] [facility] [address] [place] [address] Phone Care Team Providers Care Box Annealer Name Role Phone Silva Dhaliwal MD Primary Care Provider +1- [phone] Encounter Details Date Type Department Care Team (Late st Contact Info) Description 06/23/2019 Ancillary Orders [facility],Outside Imaging [address] [place] [address] System, Provider Not In, [facility] [address] [address] Social History Tobacco Use Types Packs/Day Years [...] documented as of this encounter Care Teams Box Annealer Relationship Specialty Start Date End Date Silva Dhaliwal MD [address] [place] [address] PCP - General Family Medicine 02/07/18 documented as of this encounter Additional Source Comments The information contained in this document represents components of the legal health record. It is not the complete legal health record.[facility]
--- OUTSIDE RECORDS SUMMARY | 2025-08-07 18:20 | XMS_ITS | Encounter Summary ---
Author Organization [facility] Address [address] [facility] [address] [place] [address] Phone Care Team Providers Care Iap Displays Analyst Name Role Phone Silva Dhaliwal MD Primary Care Provider +1- [phone] Encounter Details Date Type Department Care Team (Late st Contact Info) Description 05/28/2022 Procedure Pass [facility], [facility] [address] [place] [address] Social History Tobacco Use Types Packs/Day Years [...] on filedocumented in this encounter Care Teams Iap Displays Analyst Relationship Specialty Start Date End Date Silva Dhaliwal MD [facility] [place] [address] PCP - General Family Medicine 02/07/18 documented as of this encounter Additional Source Comments The information contained in this document represents components of the legal health record. It is not the complete legal health record.[facility]
--- OUTSIDE RECORDS SUMMARY | 2025-08-07 18:20 | XMS_ITS | Encounter Summary ---
Author Organization [facility] Address [address] [facility] [address] [place] [address] Phone Care Team Providers Care Biomedical Instrument Technician Name Role Phone Silva Dhaliwal MD Primary Care Provider +1- [phone] Reason for Referral * MRI/CAT Scan - Closed Specialty Diagnoses / Procedures Referred By Vianca garcia Referred To Contact Procedures CT Neck Outside (No Interpretation) System, Provider Not In, [facility] [address] [address] Referral ID Status Reason Start Date Expiration Date Visits Re quested Visits Authorized [id number] Closed 06/23/2019 06/22/2020 1 1 Encounter Details Date Type Department Care Team (Late st Contact Info) Description 06/23/2019 Ancillary Orders [facility],Outside Imaging [address] [place] [address] System, Provider Not In, [facility] [address] [address] Social History Tobacco Use Types Packs/Day Years [...] documented as of this encounter Care Teams Biomedical Instrument Technician Relationship Specialty Start Date End Date Silva Dhaliwal MD [address] [place] [address] PCP - General Family Medicine 02/07/18 documented as of this encounter Additional Source Comments The information contained in this document represents components of the legal health record. It is not the complete legal health record.[facility]
--- OUTSIDE RECORDS SUMMARY | 2025-08-07 18:20 | XMS_ITS | Encounter Summary ---
Author Organization [facility] Address [address] [facility] [address] [place] [address] Phone Care Team Providers Care Legal Document Assistant Name Role Phone Jessica Huang MD Primary Care Provider [phone] Silva Dhaliwal MD Primary Care Provider [phone] Reason for Referral * Occupational Therapy (Routine) - Closed Specialty Diagnoses / Procedures Referred By Vianca garcia Referred To Contact Occupational Therapy Diagnoses Encounter for rehabilitation Right Wrist Distal Ulna Excision/Stabilzation Procedures Evaluate & Treat Leydi Garcia MD Phone: tel: fax: mailto:[email or web address] [address] [address] Phone: tel: Referral ID Status Reason Start Date Expiration Date Visits Re quested Visits Authorized [id number] Closed 10/01/2017 08/18/2018 99 [phone] Encounter Details Date Type Department Care Team (Latest Contact Info) Description 10/01/2017 Transcribe Orders [facility] [address] [place] [address] Leydi Garcia MD [address] [place] [phone] [email or web address] Encounter for rehabilitation (Primary Dx) [...] Diagnoses Orde r Schedule Ambulatory referral to [facility] Occupational Therapy Outpatient Referral Routine Encounter for rehabilitation Ordered: 10/01/2017 documented as of this encounter Visit Diagnoses Diagnosis Encounter for rehabilitation- Primary documented in this encounter Additional Health Concerns Infection Onset Date Last Indicated Resolved Time CoV-Risk 04/15/2021 04/15/2021 04/25/2021 1:24 AM EDT CoV-Risk 07/14/2021 07/14/2021 07/24/2021 1:22 AM EST documented as of this encounter Care Teams Legal Document Assistant Relationship Specialty Start Date End Date Jessica Huang MD [address] [place] [phone] [email or web address] PCP - General 02/16/1402/06 Silva Dhaliwal MD [address] [place] [address] PCP - General Family Medicine 02/07/18 documented as of this encounter Additional Source Comments The information contained in this document represents components of the legal health record. It is not the complete legal health record.[facility]
--- OUTSIDE RECORDS SUMMARY | 2025-08-07 18:20 | XMS_ITS | Clinical Summary ---
Author Organization [address] [facility] Address [address] [place] [address] Phone Care Team Providers Care Washroom Attendant Name Role Phone Silva Dhaliwal MD Primary Care Provider Allergies Active Allergy Reactions Criticality Noted Date Comments Atorvastatin Hives 05/14/2014 Mirtazapine Hyperactive behavior 10/28/2012 Moxifloxacin Flushing,Itching Medium 12/31/2011 Niacin Flushing 11/13/2010 Simvastatin 07/08/2008 Sulfamethoxazole-Trime thoprim Hives 05/03/2003 Sulfur 01/09/2003 Other Reaction(s): HIVES, Respiratory distress, VISION,BLURRED, HIVES, Respiratory distress, VISION,BLURRED, HIVES, Respiratory distress, VISION,BLURRED Varenicline Anxiety Medium 09/28/2011 Medications LORazepam (ATIVAN) 0.5 mg tablet 1 TABLET TWICE DAILY prn Active sertraline (ZOLOFT) 25 mg tablet Take 1 tablet (25 mg total) by mouth 1 (one) time each day. Active traZODone (DESYREL) 50 mg tablet Take 1 tablet (50 mg total) by mouth at bedtime. Active dilTIAZem LA (CARDIZEM LA) 180 mg 24 hr tablet Take 240 mg by mouth. 12/31/2023 Active ipratropium-alb uteroL (COMBIVENT RESPIMAT) 20-100 mcg/actuation inhaler Inhale 1 puff by mouth 4 (four) times a day. Active acetaminophen (TYLENOL 8 HOUR) 650 mg 8 hr tabletIndicatio ns:Post-operati ve state,Status post fusion of wrist Take 1 tablet (650 mg total) by mouth every 8 (eight) hours if needed for mild pain. Do not crush, chew, or split. 30 tablet 02/23/2025 Active HYDROcodone-eric taminophen (NORCO) 5-325 mg per tabletIndicatio ns:Post-operati ve state,Status post fusion of wrist Take 1 tablet by mouth every 4 (four) hours if needed for severe pain for up to 30 doses. Max Daily Amount: 6 tablets 30 tablet 02/23/2025 Active cetirizine (ZyrTEC) 10 mg tablet Take 1 tablet (10 mg total) by mouth 1 (one) time each day. Active apixaban (ELIQUIS) 5 mg tablet Take 1 tablet (5 mg total) by mouth 2 (two) times a day. Restart on Saturday am 02/26/25 02/26/2025 Active HYDROcodone-eric taminophen (NORCO) 5-325 mg per tabletIndicatio ns:Status post fusion of wrist,Post-oper ative state Take 2 tablets by mouth every 4 (four) hours if needed for severe pain for up to 30 doses. Max Daily Amount: 12 tablets 30 tablet 03/01/2025 Active Active Problems Problem Noted Date Diagnosed Date Follow-up exam 07/13/2025 Post-operative state 03/06/2025 Status post fusion of wrist 03/06/2025 History of right wrist replacement 11/02/2024 Acute cough 10/13/2024 Sleep apnea 10/13/2024 Overview (10/13/2024): Jul 21, 2010 Entered By: DIPAK JOSEPH Comment: on cpap Chronic anxiety 10/13/2024 Overview (10/13/2024): Sep 18, 2016 Entered By: LYNNETTE LENNON Comment: with panic attacks, currently well controlled Chronic depression 10/13/2024 Overview (10/13/2024): Mar 10, 2012 Entered By: LYNNETTE LENNON Comment: reviewed Chronic asthmatic bronchitis 10/13/2024 Chronic obstructive pulmonary disease 10/13/2024 Chronic rhinitis 10/13/2024 Allergic rhinitis, unspecified [...] Overview (10/13/2024): Dec 15, 2013 Entered By: LYNNETTE LENNON Comment: reviewed Other recurrent depressive disorders 10/13/2024 Deposits (accretions) on teeth 10/13/2024 Derangement of knee 10/13/2024 Diabetes mellitus due to und erlying condition without complications 10/13/2024 Disorder of thyroid 10/13/2024 Exposure to [...] in right wrist 10/13/2024 Paroxysmal atrial fibrillation 10/13/2024 Paroxysmal atrial fibrillation 10/13/2024 Partial loss of teeth, unspecified cause, unspec ified class 10/13/2024 Pruritus, unspecified 10/13/2024 Puckering of macula, right eye 10/13/2024 Restless legs syndrome 10/13/2024 Sciatica 10/13/2024 Sensorineural hearing loss, bilateral 10/13/2024 Sprain of sacroiliac joint 10/13/2024 Type 2 diabetes mellitus without complication Overview (05/19/2025): 05/19/25 Regulatory IMO Update Vertigo 10/13/2024 Vertigo of central origin 10/13/2024 Vitamin D deficiency 10/13/2024 Chronic knee pain after tota l replacement of right knee joint 08/21/2022 Osteonecrosis of left knee region 08/21/2022 Status post revision of total knee replacement, right 06/26/2022 Diabetes mellitus 02/12/2013 Overview (10/13/2024): Diabetes mellitus Osteoarthritis 04/28/2012 Overview (10/13/2024): Osteoarthritis Asthma 04/21/2008 Encounters Date Type Department Care Team Description 07/13/2025 9:30 AM EST Office Visit Orthopedic Surgery [address] [phone] Leydi Garcia MD Follow-up exam (Primary Dx); Status post fusion of wrist 05/17/2025 8:30 AM EDT Office Visit Orthopedic Surgery [address] [phone] Leydi Garcia MD Post-operative state (Primary Dx) from Last 3 Months Immunizations Immunization Administration Dates Next Due DTaP, Unspecified 01/26/2011 [...] 15 years ago (2009?); hardware in place KNEE ARTHROPLASTY Right ORIF ANKLE FRACTURE Left SECTION, LOW TRANSVERSE TUBAL LIGATION WRIST SURGERY 02/25/2025 Right removal of hardware Medical History Medical History Date Comments GERD (gastroesophageal reflux disease) USES MYLANTA/MAALOX Asthma COPD (chronic obstructive pu lmonary disease) ([facility] V24, [facility] V28) Hypertension Hyperlipidemia Osteonecrosis ([facility] V24, [facility] V28) Anxiety Migraines Afib ([facility] V24, [facility] V28) Diabetes mellitus ([facility] V24, [facility] V28) NOT ON MEDS Sleep apnea Social History Tobacco Use Types Packs/Day Years Used Date Smoking Tobacco: Former Cigarettes 11 S tarted: 2014 Smokeless Tobacco: Never Tobacco Cessation:Counseling Given: Not Answered Alcohol Use Standard Drinks/Week Comments Not Currently 0 (1 standard drink = 0.6 oz pur e alcohol) Comments No Sex and Gender Information Value Date Recorded Sex Assigned at Not on file Legal Sex Female 2:26 PM EST Gender Identity Not on file Sexual Orientation Not on file Last Filed Vital Signs Vital Sign Reading Time Taken Comments Blood Pressure 114/44 02/25/2025 7:39 PM EDT Pulse 95 02/25/2025 7:39 PM EDT Temperature 36.2 C (97.2 F) 02/25/2025 7:39 PM EDT Respiratory Rate 18 02/25/2025 7:39 PM EDT Oxygen Saturation 96% 02/25/2025 7:39 PM EDT Inhaled Oxygen Concentration - - Weight 63.5 kg (140 lb) 07/13/2025 8:52 AM EST Height 154.9 cm (5' 1 ) 07/13/2025 8:52 AM EST Body Mass Index 26.45 07/13/2025 8:52 AM EST Plan of Treatment Upcoming Encounters Date Type Department Care Team (Late st Contact Info) Description 10/12/2025 9:30 AM EST Office Visit Orthopedic Surgery - [place] [address] [phone] Leydi Garcia MD [address] [phone] Health Maintenance Due Date Last Done Comments Drug Screen 1950 Non-Opioid Controlled Substance Agreement 1952 Diabetes: Annual Foot Exam 1962 Diabetes: Annual Retina Eye Exam 1962 RSV Immunization Adult Patients (1 - Risk 50-74 years 1-dose series) 2002 Diabetes: Annual GFR (Glomerular Filtration Rate) 12/05/2022 12/05/2021 Breast Cancer Screening 06/13/2024 06/13/2022 Depression Screening 08/19/2024 Cholesterol Screening (Lipid Panel) 10/06/2024 Hepatitis C Screening 10/06/2024 Medicare Annual Wellness Visit 10/06/2024 Osteoporosis Screening (Bone Density Screening) 10/06/2024 Social Influencers of Health Screening 10/06/2024 Diabetes: Annual Urine Albumin-Creatinine Ratio (uACR) 10/13/2024 Diabetes: Blood Sugar Control Test (HGBA1C) 10/13/2024 COVID-19 Vaccine () 04/19/2025 11/18/2020, 10/21/2020 Influenza Vaccine (#1) 2025 , 05/08/2022, 06/26/2021, Additional history exists Falls Risk Assessment 02/25/2026 02/25/2025 DTaP,Tdap,and Td Vaccines (4 - Td or Tdap) 02/15/2031 02/15/2021, 01/26/2011, 08/19/1998 Colorectal Cancer Screening: Colonoscopy 06/21/2035 06/21/2025 Zoster Vaccines Completed 05/16/2020, 01/2020, 04/05/2014 Pneumococcal [...] this topic Medical Devices Implanted Type Area Rating Clerk Device Identifier Shelf Expiration Date Model / Serial / Lot Screw Lcking 2.4x12mm Full Thrd T8 - Sn/A - [id number] Implanted:Qty: 1 on 02/25/2025 by Leydi Garcia MD at [facility] Internal and External Fixation Right: Wrist [employer] [id number] / N/A / N/A Screw Lcking 2.4x10mm Thrd T8 - Sn/A - [id number] Implanted:Qty: 1 on 02/25/2025 by Leydi Garcia MD at [facility] Internal and External Fixation Right: Wrist [employer] [id number] / N/A / N/A Screw Bone 2.7x22mm Thrd T8 - Sn/A - [id number] Implanted:Qty: 1 on 02/25/2025 by Leydi Garcia MD at [facility] Internal and External Fixation Right: Wrist [employer] [id number] / N/A / N/A Screw Bone 2.7x14mm Thrd T8 - Sn/A - [id number] Implanted:Qty: 2 on 02/25/2025 by Leydi Garcia MD at [facility] Internal and External Fixation Right: Wrist [employer] [id number] / N/A / N/A Screw Bone 2.7x12mm Thrd T8 - Sn/A - [id number] Implanted:Qty: 1 on 02/25/2025 by Leydi Garcia MD at [facility] Internal and External Fixation Right: Wrist [employer] [id number] / N/A / N/A Screw Bone 2.7x20mm Thrd T8 - Sn/A - [id number] Implanted:Qty: 1 on 02/25/2025 by Leydi Garcia MD at [facility] Internal and External Fixation Right: Wrist [employer] [id number] / N/A / N/A Screw Lcking 2.7x20mm Thrd T8 - Sn/A - [id number] Implanted:Qty: 1 on 02/25/2025 by Leydi Garcia MD at [facility] Internal and External Fixation Right: Wrist [employer] [id number] / N/A / N/A Screw Lcking 2.7x14mm Thrd T8 - Sn/A - [id number] Implanted:Qty: 2 on 02/25/2025 by Leydi Garcia MD at [facility] Internal and External Fixation Right: Wrist [employer] [id number] / N/A / N/A Screw Bone 2.4x12mm Thrd T8 - Sn/A - [id number] Implanted:Qty: 1 on 02/25/2025 by Leydi Garcia MD at [facility] Internal and External Fixation Right: Wrist [employer] [id number] / N/A / N/A Screw Bone 2.4x10mm Thrd T8 - Sn/A - [id number] Implanted:Qty: 2 on 02/25/2025 by Leydi Garcia MD at [facility] Internal and External Fixation Right: Wrist [employer] [id number] / N/A / N/A [employer] Implanted:Qty: 1 on 02/25/2025 by Leydi Garcia MD at [facility] [employer] Bone Right: Wrist OTHER 05/16/2028 [id number] / [id number] / N/A Description:[employer] FE MORAL HEAD Long Spamnnong Plate Long [id number] Implanted:Qty: 1 on 02/25/2025 by Leydi Garcia MD at [facility] Right: Wrist [employer] [id number] / N/A / N/A Procedures Procedure Name Priority Date/Time Associated Diagnosis Comments XR WRIST 3+ VIEWS RIGHT Routine 07/13/2025 8:50 AM EST Follow-up exam XR WRIST 3+ VIEWS RIGHT Routine 05/17/2025 8:43 AM EDT Post-operative state from Last 3 Months Results * XR Wrist 3+ Views Right (07/13/2025 8:50 AM EST) Only the most recent of2 resultswithin the time period is included. Anatomical Region Laterality Modality Upper Extremities, Wrist Right Compute d Radiography Narrative 07/13/2025 9:23 AM EST AP, lateral, oblique of the right wrist was obtained on 07/13/2025. There are several prior images from the preceding 6 months which detail removal of a total wrist implant and subsequent bone grafting and distal ulnar excision. The plate appears solid. The proximal interface of the shaft and the large allograft appears healed. That is less clear at the interface of the graft and the base of the metacarpals distally. It looks to be intact on the radial side but it is hard to assess on the ulnar side. There is no obvious resorption of the interface. There is no loosening of any of the hardware. There is evidence of prior trapeziectomy. Impression: Healing wrist fusion with allograft. eLydi Garcia MD IMG XR PROCEDURES Final Resul t from Last 3 Months Insurance MEDICARE [facility] Advance Directives * Full Code - Default (Latest Code Status on File) Date Activated Date Inactivated Comments 02/25/2025 6:18 PM 02/25/2025 10:39 PM This is ord er is used when code status has not been discussed with the patient, or code status is otherwise unknown/unconfirmed To update the patient's code status, place a code status order. Do not modify or discontinue any currently active code status orders. * Full Code - Default Date Activated Date Inactivated Comments 02/25/2025 9:05 AM 02/25/2025 6:18 PM This is orde r is used when code status has not been discussed with the patient, or code status is otherwise unknown/unconfirmed To update the patient's code status, place a code status order. Do not modify or discontinue any currently active code status orders. Care Teams Washroom Attendant Relationship Specialty Start Date End Date Silva Dhaliwal MD [address] [facility] Primary Care (111) MOE Santizo PCP - General Family Medicine 11/02/24
--- OUTSIDE RECORDS SUMMARY | 2025-08-07 18:20 | XMS_ITS | Encounter Summary ---
Author Organization [facility] Address [address] [facility] [address] [place] [address] Phone Care Team Providers Care Motor And Generator Brush Cutter Name Role Phone Silva Dhaliwal MD Primary Care Provider [phone]- [phone] Encounter Details Date Type Department Care Team (Late st Contact Info) Description 06/21/2025 Procedure Pass [facility] Endoscopy Admitting Dept Virtual Department [address] [place] [address] Social History Tobacco Use Types Packs/Day Years [...] on filedocumented in this encounter Care Teams Motor And Generator Brush Cutter Relationship Specialty Start Date End Date Silva Dhaliwal MD [address] [place] [address] PCP - General Family Medicine 02/07/18 documented as of this encounter Additional Source Comments The information contained in this document represents components of the legal health record. It is not the complete legal health record.[facility]
--- OUTSIDE RECORDS SUMMARY | 2025-08-07 18:20 | XMS_ITS | Encounter Summary ---
Author Organization [facility] Address [address] [facility] [address] [place] [address] Phone Care Team Providers Care Technical Documentation Specialist Name Role Phone Silva Dhaliwal MD Primary Care Provider [phone] Encounter Details Date Type Department Care Team (Latest Contact Info) Description 05/28/2022 Transcribe Orders Virtual Department [address] [place] [address] Silva Dhaliwal MD [address] [place], [place] [phone] Breast screening (Primary Dx) Social History Tobacco [...] unspecified documented in this encounter Care Teams Technical Documentation Specialist Relationship Specialty Start Date End Date Silva Dhaliwal MD [address] [place] [address] PCP - General Family Medicine 02/07/18 documented as of this encounter Additional Source Comments The information contained in this document represents components of the legal health record. It is not the complete legal health record.[facility]
--- OUTSIDE RECORDS SUMMARY | 2025-08-07 18:20 | XMS_ITS | Encounter Summary ---
Author Organization [facility] Address [address] [facility] [address] [place] [address] Phone Care Team Providers Care International Account Representative Name Role Phone Silva Dhaliwal MD Primary Care Provider [phone]- [phone] Encounter Details Date Type Department Care Team (Late st Contact Info) Description 06/29/2019 Procedure Pass [facility] [address] [place] [address] Social History Tobacco Use Types Packs/Day Years [...] documented as of this encounter Care Teams International Account Representative Relationship Specialty Start Date End Date Silva Dhaliwal MD [address] [place] [address] PCP - General Family Medicine 02/07/18 documented as of this encounter Additional Source Comments The information contained in this document represents components of the legal health record. It is not the complete legal health record.[facility]
--- OUTSIDE RECORDS SUMMARY | 2025-08-07 18:20 | XMS_ITS | Encounter Summary ---
Author Organization [facility] Address [address] [facility] [address] [place] [address] Phone Care Team Providers Care Keyboard Specialist Name Role Phone Silva Dhaliwal MD Primary Care Provider [phone]- [phone] Encounter Details Date Type Department Care Team (Late st Contact Info) Description 02/07/2022 Procedure Pass [facility] Endoscopy Admitting Dept Virtual Department [address] [place] [address] Social History Tobacco Use Types Packs/Day Years [...] on filedocumented in this encounter Care Teams Keyboard Specialist Relationship Specialty Start Date End Date Silva Dhaliwal MD [address] [place] [address] PCP - General Family Medicine 02/07/18 documented as of this encounter Additional Source Comments The information contained in this document represents components of the legal health record. It is not the complete legal health record.[facility]
--- OUTSIDE RECORDS SUMMARY | 2025-08-07 18:20 | XMS_ITS | Encounter Summary ---
Author Organization [facility] Address [address] [facility] [address] [place] [address] Phone Care Team Providers Care Children'S Entertainer Name Role Phone Silva Dhaliwal MD Primary Care Provider [phone]- [phone] Reason for Referral * MRI/CAT Scan - Closed Specialty Diagnoses / Procedures Referred By Vianca garcia Referred To Contact Radiology Diagnoses Tinnitus of right ear Procedures MRI Brain Silva Dhaliwal MD [address] [place] [address] Phone: tel: fax: Referral ID Status Reason Start Date Expiration Date Visits Re quested Visits Authorized [id number] Closed 05/20/2019 08/15/2019 1 1 Encounter Details Date Type Department Care Team (Latest Contact Info) Description 2019 Transcribe Orders Virtual Department [address] [place] [address] Silva Dhaliwal MD [address] [place], [place] [phone] Tinnitus of right ear (Primary Dx) Social [...] No explanation for right-sided tinnitus. POS - [id number] Narrative 06/23/2019 11:30 AM EST HISTORY: Worsening [...] Noexplanation for right- sided tinnitus. POS - [id number] Silva Dhaliwal MD IMG MR HEAD/NECK Final Res ult documented in this encounter Visit Diagnoses Diagnosis Tinnitus of right ear- Primary Tinnitus of right ear documented in this encounter Additional Health Concerns Infection Onset Date Last Indicated Resolved Time CoV-Risk 04/15/2021 04/15/2021 04/25/2021 1:24 AM EDT CoV-Risk 07/14/2021 07/14/2021 07/24/2021 1:22 AM EST documented as of this encounter Care Teams Children'S Entertainer Relationship Specialty Start Date End Date Silva Dhaliwal MD [facility] [place] [address] PCP - General Family Medicine 02/07/18 documented as of this encounter Additional Source Comments The information contained in this document represents components of the legal health record. It is not the complete legal health record.[facility]
--- OUTSIDE RECORDS SUMMARY | 2025-08-07 18:20 | XMS_ITS | Encounter Summary ---
Author Organization [facility] Address [address] [facility] [address] [place] [address] Phone Care Team Providers Care Steward/Stewardess Economy Class Name Role Phone Silva Dhaliwal MD Primary Care Provider [phone]- [phone] Reason for Referral * Occupational Therapy (Elective) - Closed Specialty Diagnoses / Procedures Referred By Vianca garcia Referred To Contact Occupational Therapy Diagnoses Encounter for rehabilitation Right Hand pain [facility] Procedures Evaluate & Treat Leydi Garcia MD Phone: tel: fax: mailto:[email or web address] [address] [place] [address] Phone: tel: Referral ID Status Reason Start Date Expiration Date Visits Re quested Visits Authorized [id number] Closed 09/07/2019 08/18/2020 99 99 Encounter Details Date Type Department Care Team (Latest Contact Info) Description 09/04/2019 Transcribe Orders [facility] [address] [place] [address] Leydi Garcia MD [address] [place] [phone] [email or web address] Encounter for rehabilitation (Primary Dx) Social [...] Diagnoses Orde r Schedule Ambulatory referral to [facility] Occupational Therapy Outpatient Referral Routine Encounter for rehabilitation Ordered: 09/04/2019 documented as of this encounter Visit Diagnoses Diagnosis Encounter for rehabilitation- Primary documented in this encounter Additional Health Concerns Infection Onset Date Last Indicated Resolved Time CoV-Risk 04/15/2021 04/15/2021 04/25/2021 1:24 AM EDT CoV-Risk 07/14/2021 07/14/2021 07/24/2021 1:22 AM EST documented as of this encounter Care Teams Steward/Stewardess Economy Class Relationship Specialty Start Date End Date Silva Dhaliwal MD [address] [place] [address] PCP - General Family Medicine 02/07/18 documented as of this encounter Additional Source Comments The information contained in this document represents components of the legal health record. It is not the complete legal health record.[facility]
[2025-08-07 18:21] LABS: Alanine Aminotransferase 36 U/L (0-31); Albumin Level 4.5 g/dL (3.5-5.0); Alkaline Phosphatase 87 U/L (39-117); Anion Gap 17 (12-20); Aspartate Amino Transferase 27 U/L (5-31); Blood Urea Nitrogen 13 mg/dL (9-16); Calcium 9.9 mg/dL (8.4-10.2); Carbon Dioxide 22 mmol/L (22-29); Chloride 104 mmol/L (96-108); Creatinine Clr Calc Pharmacy 77.8; Estimated Glomerular Filt Rate > 60; Potassium 4.7 mmol/L (3.3-5.1); Sodium 138 mmol/L (135-145); Total Protein 6.9 g/dL (6.5-8.0)
[2025-08-07 18:30] VITALS: BP 122/49; PULSE 72; RESP 18; O2SAT 96
[2025-08-07 19:48] VITALS: BP 132/80; PULSE 80; RESP 18; O2SAT 96
[2025-08-07 21:33] VITALS: BP 125/64; PULSE 77; RESP 16; TEMP 36.1; O2SAT 97
[2025-08-07] MEDS: Lidocaine 4 % Patch ADH..PATCH 1 PATCH TRANSDERMA (21:35)
[2025-08-07 21:42] VITALS: BP 125/64; PULSE 77; RESP 16; TEMP 36.1; O2SAT 97
== END 2025-08-07 21:43 | disposition home or self-care (01) ==
PROVIDERS: Nurse Practitioner Family; Emergency Provider Student in an Organized Health Care Education/Training Program
DX: R10.A2 Flank pain, left side (principal); M54.50 Low back pain, unspecified; J45.909 Unspecified asthma, uncomplicated; E11.9 Type 2 diabetes mellitus without complications; G47.33 Obstructive sleep apnea (adult) (pediatric); Z79.899 Other long term (current) drug therapy; Z86.79 Personal history of other diseases of the circulatory system; Z79.01 Long term (current) use of anticoagulants; Z79.51 Long term (current) use of inhaled steroids
CPT/HCPCS: 36415; 80048; 80076; 81003; 85025; 99283; 99284